=== PATIENT | female | born 1985 | race Caucasian/White ===

== ENCOUNTER 2020-05-05 15:04 | Outpatient (CLI) | payer BC, SELFPAY ==
--- NOTE | ~2020-05-05 | US_ITS ---
EXAMINATION: US thyroid DATE: 05/05/2020 15:40 INDICATION: Nontoxic goiter TECHNIQUE: Multiple ultrasound images of the thyroid were obtained. COMPARISON: None. FINDINGS: The right thyroid lobe measures 4.6 x 1.5 x 1.4 cm. The left thyroid lobe measures 0.4 x 0.9 x 1.4 c m. Thyroid isthmus measures 4-5 mm in thickness. No discrete nodules identified. There is normal echo texture, echogenicity and vascular flow throughout the thyroid gland. IMPRESSION: 1. Normal thyroid ultrasound. Reviewed, dictated and finalized at location A.
== END 2020-05-05 15:05 | disposition home or self-care (01) ==
PROVIDERS: PCP Nurse Practitioner; Visit Provider Internal Medicine Endocrinology, Diabetes & Metabolism
DX: G93.2 Benign intracranial hypertension (principal)
CPT/HCPCS: 76536

== ENCOUNTER 2020-05-08 09:24 | Outpatient (CLI) | payer BC, SELFPAY ==
[2020-04-30 09:57] VITALS: BMI 35.3
--- NOTE | ~2020-05-08 | XR_ITS ---
EXAMINATION: XR lumbar puncture diagnostic DATE: 05/08/2020 11:49 INDICATION: Intracranial hypertension. TECHNIQUE: The procedure including the risks, benefits, and alternatives was discussed with the patie nt. Risks discussed included spinal headache, cerebrospinal fluid leak, bleeding, and infection. The patient understood the risks and agreed to proceed. A timeout was performed to verify the patient' s name, date of , and procedure to be performed. The skin overlying the L3-L4 level was prepped and draped in usual sterile fashion. Subcutaneous 1% lidocaine was used for local anesthesia. A 20 gauge spinal needle was advanced under fluoroscopic guidance. The needle was removed and the entry s ite was cleaned and dressed. There were no immediate complications. Fluoroscopy exposure time was 0. 1 minutes. The total number of images was 1. FINDINGS: Real-time fluoroscopy demonstrates the needle at the L3-L4 level. The opening pressure was 21 cm water (Normal range is variably defined as 6-20 cm water and up to 25 cm water in obese patient s. Pressure >25 cm water is one of the modified Dandy criteria for idiopathic intracranial hypertensi on). 29.5 mL of clear, colorless fluid was collected in 4 tubes. IMPRESSION: 1. Successful fluoro-guided lumbar puncture. Reviewed, dictated and finalized at location A.
[2020-05-08 09:47] LABS: Mean Platelet Volume 8.7 fl (7.4-10.4); Platelet Count Result 270 k/mm3 (150-375)
[2020-05-08 09:57] LABS: INR 0.9; Prothrombin Time 11.5 Seconds (11.1-14.7)
[2020-05-08 10:40] VITALS: BP 148/95; PULSE 97; RESP 16; O2SAT 96
[2020-05-08 11:18] VITALS: BP 152/88; PULSE 91; RESP 20; O2SAT 95
[2020-05-08 11:22] VITALS: BP 137/80; PULSE 88; RESP 18; O2SAT 99
[2020-05-08 11:32] LABS: Glucose Point of Care 250 (65-105)
[2020-05-08 11:44] LABS: Appearance CSF Clear (Clear); CSF source CSF; Color CSF Colorless (Colorless); Nucleated Cell CSF 3 /uL (0-5); Red Blood Cell CSF 0 (0-2)
[2020-05-08 11:46] LABS: Glucose CSF 169 mg/dL (40-70); Total Protein CSF 38 mg/dL (12-60)
[2020-05-08 11:48] LABS: Lymphocytes CSF 80 % (40-80); Monocytes CSF 20 % (15-45)
--- NOTE | 2020-05-08 11:51 | SUR.PHASEII ---
1150- dr. alvarado had been called regarding patient's blood sugar. initially stated he wanted insulin orders implemented then called back and states no treatment for blood sugar of 250.
[2020-05-08 12:30] VITALS: BP 140/71; PULSE 85; RESP 18; O2SAT 100
--- NOTE | 2020-05-08 12:30 | SUR.PHASEII ---
1155 - lab called, results given to dr. alvarado. lab stated that gram stain results showed rare WBCs and no organisms. no orders received 1156 - pt resting in stretcher. pt denies need for ibuprofen at this time.
--- NOTE | 2020-05-08 12:36 | SUR.PHASEII ---
1230- care resumed from justus duffy rn
--- NOTE | 2020-05-08 12:54 | SUR.PHASEII ---
1230- patient refusing ibuprofen
[2020-05-08 12:55] VITALS: BP 131/68; PULSE 89; RESP 16; O2SAT 99
[2020-05-08 13:20] VITALS: BP 124/61; PULSE 85; RESP 18; O2SAT 100
== END 2020-05-08 13:26 | disposition home or self-care (01) ==
LOC: ANHIMG 09:26
PROVIDERS: Radiology Diagnostic Radiology; PCP Nurse Practitioner; Visit Provider Psychiatry & Neurology Neurology
DX: Z01.812 Encounter for preprocedural laboratory examination (principal)
CPT/HCPCS: 36415; 62328; 82945; 84157; 85049; 85610; 87070; 88108; 89051; A9270

== ENCOUNTER 2020-07-06 21:34 | Observation (INO) | payer BC, SELFPAY ==
--- NOTE | ~2020-07-06 | XR_ITS ---
EXAMINATION: XR chest 1V portable DATE: 07/06/2020 22:15 INDICATION: Left-sided chest pain radiating to the back TECHNIQUE: frontal view of the chest was obtained. COMPARISON: Chest radiograph dated 10/16/2018 FINDINGS: The lungs remain clear with no focal airspace opacities, pulmonary edema, pleural effusion or pneumot horax. Incidental azygos lobe and fissure at the right apex. The cardiomediastinal silhouette is norm al. IMPRESSION: 1. No acute cardiopulmonary disease. Reviewed, dictated and finalized at location A.
--- NOTE | ~2020-07-06 | CT_ITS ---
EXAMINATION: CTA chest DATE: 07/07/2020 02:32 INDICATION: Chest pain radiating to the back. TECHNIQUE: Computed tomographic angiography (CTA) of the chest was performed with 100 mL Omnipaque-35 0 intravenous contrast. Automated exposure control and iterative reconstruction technique were employ ed. The dose-length product was 799.84 mGy-cm. Maximum intensity projection 3D-reconstructions of the aorta and other arteries were constructed by the technologist on a separate workstation. COMPARISON: Chest CT 08/21/2018 FINDINGS: There is no pneumonia or pleural effusion. The heart size is normal. No pericardial effusio n. There is no pulmonary embolus. Thoracic aorta is normal. There is cortical thinning of the kidneys . There is a 1.8 cm cyst in left kidney. There are changes of cholecystectomy. There is diffuse hepat ic steatosis. There is a small sliding hiatal hernia. There is mild thoracic spondylosis. There is mi ld chronic anterior wedging of T11 and T12 vertebral bodies, likely physiologic. IMPRESSION: 1. Normal thoracic aorta. No pulmonary embolism. 2. Small sliding hiatal hernia. Reviewed, dictated and finalized at location A.
[2020-07-06 21:43] VITALS: PULSE 130; RESP 20; TEMP 36.6; O2SAT 99
[2020-07-06 21:47] VITALS: O2SAT 99
[2020-07-06 21:51] VITALS: BP 184/98; PULSE 106; RESP 20; O2SAT 99
--- NOTE | 2020-07-06 21:51 | ECG_ITS ---
Measurements Intervals [place] Rate: 132 P: 47 LA: 137 QRS: 54 QRSD: 90 T: 75 QT: 332 QTc: 493 Interpretive Statements SINUS TACHYCARDIA NONSPECIFIC T-WAVE ABNORMALITY- HIGH LATERAL LEADS BASELINE ARTIFACT- I, II, III, AVR, AVL, AVF, V2-V6 ABNORMAL ECG Electronically Signed On 07-07-2020 6:56:34 CDT by Ar Valle D.O.
[2020-07-06 21:57] VITALS: PULSE 112
--- NOTE | 2020-07-06 22:02 | ED.CHESTPAIN ---
HPI - Chest Pain General Chief Complaint: Chest Pain Stated Complaint: Chest pain Time Seen by Provider: 07/06/20 21:40 Source: patient Mode of arrival: ambulatory Limitations: no limitations History of Present Illness HPI narrative: This patient is a 35 year old female with multiple medical problems which includes DM, anxiety, chronic kidney disease and fibromyalgia. She has been having left chest pain since Monday. She describes pain as intermittent sharp pain that radiates to her left back. Her pain has progressively worsens. She is unsure if it is worse with eat or exertion. She has nausea but no vomiting with her pain. She states her pain is 2/10 in her chest and her pain is 9/10 in her back. She denies sob unless she has severe sharp pain. She denies cough, fever. Denies heart disease, history of DVT or PE . She has not taken anything for pain. MD complaint: chest pain Related Data Home Medications Medication Instructions Recorded Confirmed losartan 100 mg PO DAILY 04/30/20 07/07/20 metformin 500 mg PO DAILY 04/30/20 07/07/20 albuterol sulfate [ProAir HFA] 1 inh INHALATION PRN PRN 07/06/20 07/06/20 insulin degludec [Tresiba 64 unit SUBCUT HS 07/06/20 07/07/20 FlexTouch U-200] Allergies Allergy/AdvReac Type Severity Reaction Status Date / Time metoclopramide AdvReac Unknown PANIC Verified 04/30/20 09:59 ATTACKS B/P MED Allergy Unknown ITCHING Uncoded 09/29/18 11:58 ONDANSETRON HCL AdvReac Unknown PANIC Uncoded 04/30/20 09:59 ATTACKS PROCHLORPERAZINE EDISYLATE AdvReac Unknown PANIC Uncoded 04/30/20 09:59 ATTACKS PROCHLORPERAZINE MALEATE AdvReac Unknown PANIC Uncoded 04/30/20 09:59 ATTACKS PROMETHAZINE HCL AdvReac Unknown PANIC Uncoded 04/30/20 09:59 ATTACKS Review of Systems Review of Systems: All systems reviewed & are unremarkable except as noted in HPI and below Constitutional: Constitutional: Denies chills and Denies fever(s) Cardiovascular: Cardiovascular: Reports chest pain Respiratory: Respiratory: Denies cough (chronic cough from bronchitis. ) and Denies dyspnea Gastrointestinal: Gastrointestinal: Denies abdominal pain, Reports nausea and Denies vomiting Musculoskeletal: Musculoskeletal: Reports back pain Integumentary/Breasts: Skin/Breast: Reports breast pain Psychiatric: Psychiatric: Reports anxiety [facility] Past Medical History Medical History (Updated 07/07/20 @ 04:20 by Kat Rodríguez MD) Chronic renal disease Diabetes mellitus Fibromyalgia Hypertension Surgical History Surgical History (Updated 07/06/20 @ 22:07 by Kat Rodríguez MD) Hx of cholecystectomy Family History Family History (Updated 07/07/20 @ 04:40 by Angi Odell RN) Father Diabetes mellitus Hypertension Myocardial infarct Heart disease Mother Diabetes mellitus Heart disease Sibling Narcolepsy and cataplexy Social History Social History (Updated 07/06/20 @ 22:08 by Kat Rodríguez MD) Smoking packs per day: 0.5 Smoking cigarettes per day: 10.0 Smoking status: Former smoker Tobacco type: cigarettes Second hand tobacco smoke exposure: Yes Alcohol intake: never Substance use: never Substance use type: marijuana Spiritual care concerns: No Exam Const: General: alert Nutritional Appearance: obese centrally obese Orientation/consciousness: patient oriented x3 Other: patient crying Eyes: EOM: EOMs intact bilaterally Chest: Chest palpation & inspection: normal inspection of the chest and no tenderness Resp: Effort & Inspection: normal respiratory effort, no retractions and no use of accessory muscles Auscultation: clear to auscultation bilaterally Cardio: Rate: tachycardic Rhythm: regular rhythm and regular rhythm Heart sounds: no murmurs GI: GI Palp: Yes Soft to palpation, No Tenderness to palpation present (GI), No Guarding due to palpation present (GI) and Yes No hepatosplenomegaly present Skin: Genera
[2020-07-06] MEDS: NITROGLYCERIN SL 0.4 MG TABLET SUBLINGUAL (22:03)
[2020-07-06 22:07] LABS: Basophils Percent Auto 0.4 % (0.2-1.2); Eosinophils Absolute Auto 0.2 K/mm3 (0-0.3); Eosinophils Percent Auto 1.9 % (0-4.4); Hematocrit 40.6 % (37.0-47.0); Hemoglobin 13.7 g/dL (12.0-15.0); Immature Granulocyte Absolute 0.02 K/mm3 (0.00-0.031); Immature Granulocyte Percent A 0.2 % (0-0.5); Lymphocytes Absolute Auto 2.87 K/mm3 (0.9-3.2); Lymphocytes Percent Auto 35.6 % (18.3-44.2); Mean Corpuscular HGB Conc 33.7 g/dl (32-36); Mean Corpuscular Hemoglobin 28.3 pg (26-34); Mean Corpuscular Volume 83.9 fl (80-100); Mean Platelet Volume 8.7 fl (7.4-10.4); Monocytes Absolute Auto 0.6 K/mm3 (0.1-0.6); Monocytes Percent Auto 7.9 % (2.6-8.5); Neutrophils Absolute Auto 4.4 K/mm3 (1.3-6.7); Platelet Count Result 302 k/mm3 (150-375); Red Blood Count 4.84 M/mm3 (4.2-5.4); Red Cell Distribution Width 13.8 % (11.5-14.5); White Blood Count 8.1 K/mm3 (4.5-10.0)
[2020-07-06 22:19] LABS: INR 0.9; Prothrombin Time 11.5 Seconds (11.1-14.7)
[2020-07-06 22:20] LABS: Anion Gap 11 mmol/L (8-16); Blood Urea Nitrogen 21 mg/dL (7-17); Calcium 9.1 mg/dL (8.4-10.2); Carbon Dioxide 22 mmol/L (22-30); Chloride 101 mmol/L (98-107); Estimated Glomerular Filt Rate > 60; Glucose 283 mg/dL (65-105); Partial Thromboplastin Time 24.1 SECONDS (22.3-36.8); Potassium 4.3 mmol/L (3.4-5.0); Sodium 134 mmol/L (137-145)
[2020-07-06 22:22] LABS: D Dimer 0.28 ug/mL (<0.48)
[2020-07-06 22:26] VITALS: BP 143/90; PULSE 113; RESP 20; O2SAT 97
[2020-07-06 22:31] LABS: Troponin I < 0.012 ng/mL (0.000-0.034)
[2020-07-06] MEDS: LACTATED RINGERS 1,000 ML 999 ML IV CONT (22:50)
[2020-07-06 23:30] VITALS: BP 143/93; PULSE 98; RESP 18; O2SAT 98
[2020-07-07] VITALS (10 sets, daily range): BP systolic 137–175; BP diastolic 78–100; PULSE 90–103; RESP 16–20; TEMP 36.8; O2SAT 95–100; BMI 37.4
[2020-07-07 01:44] LABS: Troponin I < 0.012 ng/mL (0.000-0.034)
--- NOTE | 2020-07-07 02:42 | PC.NURSE ---
CP: Upon pt returning to ED after CT scan, pt had another episode of chest pain. She described it as tightness and sharp pain going through to her back. Pt also c/o SOB d/t difficulty taking deep breath during episode. MD Rodríguez updated and PRN Nitro sublingual tablet 0.4mg given at 0237 with pt's pain immediately subsided after 5mins. Pt's sister at bedside. VSS. RN will continue to monitor.
[2020-07-07] MEDS: ASPIRIN 81 MG CHEWABLE TABLET 324 MG PO (03:52)
[2020-07-07 04:36] LABS: Troponin I < 0.012 ng/mL (0.000-0.034)
--- NOTE | 2020-07-07 04:42 | ADMGEN ---
This patient, Kylee Guo, was admitted to [facility]. Patient/family oriented to hospital policies and general routines including ID bracelet, bed and alarms, visiting hours, pain management, procedures, bathroom and other care routines, personal items, smoking policy, room service/diet, and visiting hours. Valuables list has been completed. Information on how to activate the Rapid Response Team has been discussed. Patient/Family are encouraged to report perceived risks to care and to ask questions if they do not understand what they are told or what they should do.
--- NOTE | 2020-07-07 06:05 | PM.IMHP ---
H&P: HPI History of Present Illness Date/Time: 07/07/20 06:05 Chief complaint: left chest pain/hypertension Narrative: This is an obese diabetic female with known history of CKD and fibromyalgia who presented to the hospital with a complaint of intermittent left sided chest discomfort for the past 6 days. She describes her pain as sharp and radiating towards her back. Her pain lasts only for a few minutes each time and is not described as pleuritic, positional, or palpable. She admits that she she had her pain yesterday she also felt she had indigestion. She has no previous history of CAD+, pulmonary emboli, or PUD. She is known to have had a previous cholecystectomy. Associated symptoms include nausea. She denies any diaphoresis, vomiting, cough, fever, chills or palpitations. She also denies any recent LE swelling, headache, dysuria, hematuria. diarrhea, or rectal bleeding. She denies having any previous stress test before. ER provider has consulted Cardiology. Review of Systems Review of Systems: All systems reviewed & are unremarkable except as noted in HPI and below PMFSH Past Medical History Medical History Chronic renal disease Diabetes mellitus Fibromyalgia Hypertension Surgical History Surgical History Hx of cholecystectomy Family History Family History Father Diabetes mellitus Hypertension Myocardial infarct Heart disease Mother Diabetes mellitus Heart disease Sibling Narcolepsy and cataplexy Social History Social History Smoking packs per day: 0.5 Smoking cigarettes per day: 10.0 Smoking status: Former smoker Tobacco type: cigarettes Second hand tobacco smoke exposure: Yes Alcohol intake: never Substance use: never Substance use type: marijuana Spiritual care concerns: No Meds Home Medications and Allergies Home Medications Medication Instructions Recorded Confirmed Type losartan 100 mg PO DAILY 04/30/20 07/07/20 History metformin 500 mg PO DAILY 04/30/20 07/07/20 History albuterol sulfate [ProAir HFA] 1 inh INHALATION PRN PRN 07/06/20 07/06/20 History insulin degludec [Tresiba 64 unit SUBCUT HS 07/06/20 07/07/20 History FlexTouch U-200] Allergies Allergy/AdvReac Type Severity Reaction Status Date / Time metoclopramide AdvReac Unknown PANIC Verified 04/30/20 09:59 ATTACKS B/P MED Allergy Unknown ITCHING Uncoded 09/29/18 11:58 ONDANSETRON HCL AdvReac Unknown PANIC Uncoded 04/30/20 09:59 ATTACKS PROCHLORPERAZINE EDISYLATE AdvReac Unknown PANIC Uncoded 04/30/20 09:59 ATTACKS PROCHLORPERAZINE MALEATE AdvReac Unknown PANIC Uncoded 04/30/20 09:59 ATTACKS PROMETHAZINE HCL AdvReac Unknown PANIC Uncoded 04/30/20 09:59 ATTACKS Vital Signs Vital Signs - 24 hr 07/06/20 21:43 07/06/20 21:47 07/06/20 21:51 Temperature 36.6 C Pulse Rate 130 H 106 H Respiratory Rate 20 20 Blood Pressure 184/98 H Pulse Oximetry 99 99 99 07/06/20 21:57 07/06/20 22:26 07/06/20 23:30 Temperature Pulse Rate 112 H 113 H 98 Respiratory Rate 20 18 Blood Pressure 143/90 H 143/93 H Pulse Oximetry 97 98 07/07/20 00:04 07/07/20 01:00 07/07/20 03:02 Temperature Pulse Rate 93 97 102 H Respiratory Rate 17 16 20 Blood Pressure 161/92 H 150/78 H 151/98 H Pulse Oximetry 98 98 95 07/07/20 04:02 07/07/20 04:24 07/07/20 04:30 Temperature 36.8 C Pulse Rate 103 H 94 90 Respiratory Rate 16 16 Blood Pressure 137/84 175/96 H Pulse Oximetry 100 100 07/07/20 05:43 07/07/20 05:44 Temperature Pulse Rate 99 Respiratory Rate Blood Pressure 154/86 H Pulse Oximetry Exam Const: General: cooperative, no acute distress, alert, awake and ill appearing chronically Nutritional Appearance: obese morbidly
--- NOTE | 2020-07-07 06:11 | ECG_ITS ---
Measurements Intervals [place] Rate: 97 P: 17 MA: 152 QRS: 24 QRSD: 85 T: -7 QT: 373 QTc: 475 Interpretive Statements SINUS RHYTHM MINIMAL Q WAVES- DIFFUSE LEADS NONSPECIFIC T-WAVE ABNORMALITY- DIFFUSE LEADS BORDERLINE ECG Electronically Signed On 07-07-2020 7:54:11 CDT by Ar Valle D.O.
--- NOTE | 2020-07-07 08:15 | PM.CNCAR ---
Assessment and Plan Assessment and plan (1) Atypical chest pain: Code(s): R07.89 - Other chest pain Status: Acute Assessment and Plan: Chest pain is mixed features and intermittent nitro responsiveness She ruled out for AK with trop and EKG given risk factors of HTN, DM and tobacco abuse she would benefit from stress testing for risk stratification. Will arrange for that in outpatient setting. patient is stable for discharge from cardiac standpoint. 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: without longterm use Diabetes mellitus complication status: without complication Qualified Code(s): E11.9 - Type 2 diabetes mellitus without complications Code(s): E11.9 - Type 2 diabetes mellitus without complications Status: Chronic (4) Morbid obesity: Code(s): E66.01 - Morbid (severe) obesity due to excess calories Status: Chronic History of Present Illness History of Present Illness Consult date/time: 07/07/20 08:15 35 y/o female with h/o DM (type II, since age 17), tobacco abuse (Pack a day, quit last week), HTN, polycystic kidney disease and obesity who presents with chest pain Pain has been ongoing since Monday, multiple times a day, not necessarily related to exertion. She had sever episode yesterday so she decided to seek medical attention. She received nitro in ER with relief. She had another episode of chest pain after had CT scan done however SL nitro did not help that time. Her EKG shows normal sinus rhythm with non specific ST changes. Trop negative X3 Reason For Visit: left chest pain/hypertension Review of Systems Review of Systems: All systems reviewed & are unremarkable except as noted in HPI and below Constitutional: Constitutional: Denies fatigue and Denies headache(s) Eyes: Eyes: Denies blurry vision ENT: Reports Normal hearing present and Denies headache(s) Cardiovascular: Cardiovascular: Denies chest pain, Denies diaphoresis, Denies pedal edema, Denies leg edema, Denies lightheadedness, Denies palpitations and Denies dyspnea Respiratory: Respiratory: Denies cough and Denies dyspnea Gastrointestinal: Gastrointestinal: Denies abdominal pain Musculoskeletal: Musculoskeletal: Denies back pain Neurologic: Reports Normal hearing present and Denies headache(s) Psychiatric: Psychiatric: Denies anxiety Endocrine: Endocrine: Denies fatigue and Denies palpitations PMFSH Past Medical History Medical History Chronic renal disease Diabetes mellitus Fibromyalgia Hypertension Surgical History Surgical History Hx of cholecystectomy Family History Family History Father Diabetes mellitus Hypertension Myocardial infarct Heart disease Mother Diabetes mellitus Heart disease Sibling Narcolepsy and cataplexy Social History Social History Smoking packs per day: 0.5 Smoking cigarettes per day: 10.0 Smoking status: Former smoker Tobacco type: cigarettes Second hand tobacco smoke exposure: Yes Alcohol intake: never Substance use: never Substance use type: marijuana Spiritual care concerns: No Meds Home Medications and Allergies Home Medications Medication Instructions Recorded Confirmed Type losartan 100 mg PO DAILY 04/30/20 07/07/20 History metformin 500 mg PO DAILY 04/30/20 07/07/20 Hist
--- NOTE | 2020-07-07 09:44 | PC.NURSE ---
0925 Patient developed chest pain 06/29, Nitro SL given. Dr. Gmaboa notified, still wants to discharge from his standpoint.
--- NOTE | 2020-07-07 10:22 | PM.IMPN ---
Progress Note: A&P Assessment and Plan (1) Atypical chest pain: Code(s): R07.89 - Other chest pain Status: Acute Assessment and Plan: Patient with atypical features. Appreciate input from cardiology. Serial troponin levels are negative. EKG as well as repeat EKG negative for changes. Telemetry reviewed on 07/07/2020 with no changes seen. Cardiology plans outpatient stress echocardiogram for further follow-up. As no further inpatient cardiology evaluation planned, will discharge today but instructed patient on reasons to return to ER. Will send home on sublingual nitroglycerin. (2) Hypertension: Qualifiers: Hypertension type: unspecified Qualified Code(s): I10 - Essential (primary) hypertension Code(s): I10 - Essential (primary) hypertension Status: Chronic Assessment and Plan: Blood pressure reviewed on 07/07/2020. Continue losartan at discharge. (3) Diabetes mellitus: Qualifiers: Diabetes mellitus complication status: without complication Diabetes mellitus terminologist insulin use: without custodial use Diabetes mellitus type: type 2 Qualified Code(s): E11.9 - Type 2 diabetes mellitus without complications Code(s): E11.9 - Type 2 diabetes mellitus without complications Status: Chronic Assessment and Plan: Glucose reviewed on 07/07/2020 with some elevated readings. Will have her continue home metformin and Tresiba but will need to follow-up with her primary physician. (4) Chronic renal disease: Qualifiers: Chronic kidney disease stage: stage 1 Qualified Code(s): N18.1 - Chronic kidney disease, stage 1 Code(s): N18.9 - Chronic kidney disease, unspecified Status: Chronic Assessment and Plan: Patient states she has polycystic kidneys. Does follow with Nephrology. Creatinine stable here. I have asked her to check with her taproom attendant regarding possible anti-reflux medications as this may be contributing to chest pain issues. (5) Fibromyalgia: Code(s): M79.7 - Fibromyalgia Status: Chronic Assessment and Plan: May be contributing to pain. Follow-up with primary physician as outpatient. (6) Morbid obesity: Code(s): E66.01 - Morbid (severe) obesity due to excess calories Status: Chronic Assessment and Plan: Healthy lifestyle changes encouraged. (7) DVT prophylaxis: Code(s): Z29.9 - Encounter for prophylactic measures, unspecified Status: Acute Assessment and Plan: Up as tolerated. Subjective Date/time seen: 07/07/20 10:22 Interval history: Date of Service: 07/07/2020. Admitted with atypical chest pain over the past 6 days. Patient has still had some intermittent chest pain responsive to nitroglycerin at times. Denies acid reflux. No dizziness. Has had headaches with the nitroglycerin. No nausea or vomiting. Does have known kidney disease. Has already seen Cardiology today with plan for outpatient stress test. Review of Systems Constitutional: Constitutional: Denies chills and Denies fever(s) Eyes: Eyes: Reports no additional eye complaints ENT: Denies nasal congestion and Denies nasal discharge Cardiovascular: Cardiovascular: Reports chest pain, Denies lightheadedness and Denies palpitations Respiratory: Respiratory: Denies cough and Denies dyspnea Gastrointestinal: Gastrointestinal: Denies abdominal pain, Denies heartburn, Denies nausea and Denies vomiting Genitourinary: Genitourinary: Reports no additional female genitourinary complaints Musculoskeletal: Musculoskeletal: Reports no additional musculoskeletal complaints Integumentary/Breasts: Skin/Breast: Denies rash Neurologic: Reports headache(s) ( With nitroglycerin) Psychiatric: Psychiatric: Reports no additional psychiatric complaints Exam Narrative: Exam Narrative: Awake and alert. Speaking in full sentences with chest pain. Const: General: uncomfortable HE
--- NOTE | 2020-07-07 10:27 | PM.DS ---
DS: Admitting Diagnosis Admitting Diagnosis Admitting Diagnosis: left chest pain/hypertension DS: Discharge Diagnosis Discharge Diagnosis (1) Atypical chest pain: Code(s): R07.89 - Other chest pain Status: Acute (2) Hypertension: Qualifiers: Hypertension type: unspecified Qualified Code(s): I10 - Essential (primary) hypertension Code(s): I10 - Essential (primary) hypertension Status: Chronic Assessment and Plan: (3) Diabetes mellitus: Qualifiers: Diabetes mellitus complication status: without complication Diabetes mellitus exterminator helper termite insulin use: without exterminator helper termite use Diabetes mellitus type: type 2 Qualified Code(s): E11.9 - Type 2 diabetes mellitus without complications Code(s): E11.9 - Type 2 diabetes mellitus without complications Status: Chronic Assessment and Plan: (4) Chronic renal disease: Qualifiers: Chronic kidney disease stage: stage 1 Qualified Code(s): N18.1 - Chronic kidney disease, stage 1 Code(s): N18.9 - Chronic kidney disease, unspecified Status: Chronic Assessment and Plan: Patient states she has polycystic kidneys. Does follow with Nephrology. Creatinine stable here. I have asked her to check with her dramatic agent regarding possible anti-reflux medications as this may be contributing to chest pain issues. (5) Fibromyalgia: Code(s): M79.7 - Fibromyalgia Status: Chronic (6) Morbid obesity: Code(s): E66.01 - Morbid (severe) obesity due to excess calories Status: Chronic DS: Summary Hospital Course Reason for hospitalization: Chest pain. Hospital Course: Date of Service of Discharge: July 07, 2020. History of Present Illness: Patient is a 35-year-old with known diabetes, chronic kidney disease stage 1 and fibromyalgia who presented emergency room with complaint of intermittent left-sided chest discomfort for the past 6 days. Pain described as sharp and radiating towards her back. Pain would only last a few minutes. Not described as pleuritic, positional or palpable. No cough, fever, sweats or chills. Patient did admit pain prior to presentation also felt as though she had some indigestion. Patient did have nausea but no vomiting. In the emergency room, initial testing with no significant abnormality seen but given her symptoms cardiology was consulted and patient was placed in observation for further evaluation and treatment. Course in Hospital: On admission, patient was placed in the chest Pain Center where she was monitored overnight. Initial EKG was done and then repeated with no acute changes seen. No findings on telemetry. Serial troponin levels were negative x3. She was evaluated by Cardiology. Patient was felt to be appropriate for stress test could be done as an outpatient as EKG and troponin levels were negative. Patient did get some periodic relief from nitroglycerin while in hospital. Blood pressure was stable throughout her stay on home losartan. Of note, CTA chest was done in the emergency room with no pulmonary emboli seen. Additionally, glucose was monitored and remained stable. in discussion with options, patient was agreeable to stress test as an outpatient in stated to me that she was ready to go home and rest. Kidney function remained stable. She was advised to check with her dramatic agent regarding possibly medication for reflux disease as it is possible her chest pain was related to acid indigestion. With patient stable and ACS ruled out, she was discharged home on the morning of July 07, 2020. Patient to have outpatient stress echocardiogram scheduled through Dr. Gamboa's office. Status at Discharge Cognitive/behavioral status at discharge: Stable. Functional status at discharge: independent ambulation Overall status at discharge: patient is back to baseline Time Spent with Patient Time attestation: Total time spent providing and/or host coordinator
== END 2020-07-07 11:37 | disposition home or self-care (01) ==
LOC: ANHED 21:58 → ANHCPC 07-07 04:20
PROVIDERS: Admitting Provider Family Medicine; Emergency Provider General Practice; PCP Nurse Practitioner; Visit Provider Hospitalist
DX: R07.89 Other chest pain (principal); E11.22 Type 2 diabetes mellitus with diabetic chronic kidney disease; I12.9 Hypertensive chronic kidney disease with stage 1 through stage 4 chronic kidney disease, or unspecified chronic kidney disease; N18.1 Chronic kidney disease, stage 1; M79.7 Fibromyalgia; E66.01 Morbid (severe) obesity due to excess calories; Z68.37 Body mass index [BMI] 37.0-37.9, adult; Z79.4 Long term (current) use of insulin; Z79.899 Other long term (current) drug therapy; Z87.891 Personal history of nicotine dependence
CPT/HCPCS: 36415; 71045; 71275; 80048; 84484; 85025; 85380; 85610; 85730; 93005; 96361; 96365; 99285; A9270; G0378; J0131; J7120; Q9967

== ENCOUNTER 2020-08-09 05:46 | Emergency (ER) | payer BC, SELFPAY ==
--- NOTE | ~2020-08-09 | XR_ITS ---
XR chest 2V DATE: 08/09/2020 07:00 INDICATION: Left lower rib pain TECHNIQUE: PA and lateral chest COMPARISON: 07/07/2020 CTA chest FINDINGS: Azygos lobe, normal variant. Normal heart size. No hilar or mediastinal enlargement. The lungs are clear of infiltrate or consolidation. No pleural effusion or pulmonary vascular congest ion or pneumothorax. Likely chronic mild anterior wedging of T12 and L1 vertebral bodies. IMPRESSION: No active cardiopulmonary disease Reviewed, dictated and finalized at location A.
[2020-08-09 05:49] VITALS: BP 178/110; PULSE 102; RESP 18; TEMP 36.7; O2SAT 100
--- NOTE | 2020-08-09 06:09 | ECG_ITS ---
Measurements Intervals [place] Rate: 100 P: 42 WI: 159 QRS: 12 QRSD: 83 T: 98 QT: 358 QTc: 463 Interpretive Statements SINUS TACHYCARDIA POSSIBLE LEFT ATRIAL ENLARGEMENT NONSPECIFIC ST & T-WAVE ABNORMALITY- HIGH LATERAL LEADS BASELINE ARTIFACT- I, II, III, AVR, AVL, AVF, V3 BORDERLINE ECG Electronically Signed On 08-09-2020 8:06:58 CDT by Ar Valle D.O.
--- NOTE | 2020-08-09 06:21 | ED.GENADULT ---
HPI - General Adult General Chief complaint: Nausea/Vomiting/Diarrhea <Kat Rodríguez MD - Last Filed: 08/09/20 19:44> Stated complaint: nausea/ tremors <Kat Rodríguez MD - Last Filed: 08/09/20 19:44> Time Seen by Provider: 08/09/20 05:49 <Kat Rodríguez MD - Last Filed: 08/09/20 19:44> Source: patient <Kat Rodríguez MD - Last Filed: 08/09/20 19:44> Mode of arrival: EMS <Kat Rodríguez MD - Last Filed: 08/09/20 19:44> Limitations: no limitations <Kat Rodríguez MD - Last Filed: 08/09/20 19:44> History of Present Illness HPI narrative: This patient is a 35 year old female with history of anxiety, hypertension and diabetes who presents for evaluation of tremors, nausea, vomiting and tachycardia. Patient states she woke up around 4 am . She reports she felt like she was developing of left frontal migraine and then it resolved. Shortly after she developed heartburn , and sudden onset of nausea and vomiting. She reports she also felt her heart racing and left lower chest pain that radiates to her back. She states she also had episodes in which she felt tremulous and scared. She states she checked her vitals at home she her heart rate was elevated to 130 and her blood pressure was elevated. She states she called 911. EMS reports patient had HR of 150 and she was hypertensive. Her BP and heart rate have decreased without any intervention. She reports she continues to have nausea and some left lower chest/left upper abdomen pain. Patient was assessed for similar symptoms last month. She states she had a stress test and she is scheduled for an ECHO this week. Her human resources office assistant is in [place]. <Kat Rodríguez MD - Last Filed: 08/09/20 19:44> Related Data Home medications: Home Medications Medication Instructions Recorded Confirmed losartan 100 mg PO DAILY 04/30/20 07/07/20 metformin 500 mg PO DAILY 04/30/20 07/07/20 Tresiba FlexTouch U-200 64 unit SUBCUT HS 07/06/20 07/07/20 albuterol sulfate [ProAir HFA] 1 inh INHALATION PRN PRN 07/06/20 07/06/20 rosuvastatin [Crestor] 10 mg PO DAILY 08/09/20 <Kat Rodríguez MD - Last Filed: 08/09/20 19:44> Allergies/adverse reactions: Allergies Allergy/AdvReac Type Severity Reaction Status Date / Time metoclopramide AdvReac Severe PANIC Verified 08/09/20 06:04 ATTACKS prochlorperazine AdvReac Severe Itching Verified 08/09/20 06:03 [From Compazine] ONDANSETRON HCL AdvReac Severe PANIC Uncoded 08/09/20 06:03 ATTACKS PROCHLORPERAZINE EDISYLATE AdvReac Severe PANIC Uncoded 08/09/20 06:03 ATTACKS PROCHLORPERAZINE MALEATE AdvReac Severe PANIC Uncoded 08/09/20 06:03 ATTACKS PROMETHAZINE HCL AdvReac Severe PANIC Uncoded 08/09/20 06:03 ATTACKS <Kat Rodríguez MD - Last Filed: 08/09/20 19:44> Review of Systems Review of Systems: All systems reviewed & are unremarkable except as noted in HPI and below <Kat Rodríguez MD - Last Filed: 08/09/20 19:44> Constitutional: Constitutional: Denies chills and Denies fever(s) <Kat Rodríguez MD - Last Filed: 08/09/20 19:44> Cardiovascular: Cardiovascular: Reports chest pain <Kat Rodríguez MD - Last Filed: 08/09/20 19:44> Respiratory: Respiratory: Reports cough and Reports dyspnea <Kat Rodríguez MD - Last Filed: 08/09/20 19:44> Gastrointestinal: Gastrointestinal: Reports abdominal pain, Reports nausea and Reports vomiting <Kat Rodríguez MD - Last Filed: 08/09/20 19:44> Neurologic: Reports headache(s) <Kat Rodríguez MD - Last Filed: 08/09/20 19:44> Psychiatric: Psychiatric: Reports anxiety <Kat Rodríguez MD - Last Filed: 08/09/20 19:44> PMFSH Past Medical History Medical History: Medical History Chronic renal disease Diabetes mellitus Fibromyalgia Hypertension <Kat Rodríguez MD - Last Filed: 08/09/20 19:44
[2020-08-09 06:35] LABS: Basophils Percent Auto 0.3 % (0.2-1.2); Eosinophils Absolute Auto 0.2 K/mm3 (0-0.3); Eosinophils Percent Auto 1.7 % (0-4.4); Hematocrit 40.1 % (37.0-47.0); Hemoglobin 13.5 g/dL (12.0-15.0); Immature Granulocyte Absolute 0.03 K/mm3 (0.00-0.031); Immature Granulocyte Percent A 0.3 % (0-0.5); Lymphocytes Percent Auto 22.4 % (18.3-44.2); Mean Corpuscular HGB Conc 33.7 g/dl (32-36); Mean Corpuscular Hemoglobin 28.4 pg (26-34); Mean Corpuscular Volume 84.4 fl (80-100); Mean Platelet Volume 8.7 fl (7.4-10.4); Monocytes Absolute Auto 0.5 K/mm3 (0.1-0.6); Neutrophils Absolute Auto 6.2 K/mm3 (1.3-6.7); Neutrophils Percent Auto 69.3 % (45.5-73.1); Platelet Count Result 234 k/mm3 (150-375); Red Blood Count 4.75 M/mm3 (4.2-5.4); Red Cell Distribution Width 13.8 % (11.5-14.5); White Blood Count 8.9 K/mm3 (4.5-10.0)
[2020-08-09 06:45] LABS: INR 0.9; Prothrombin Time 12.1 Seconds (11.1-14.7)
[2020-08-09 06:46] LABS: Alanine Aminotransferase 24 U/L (4-35); Albumin Level 4.1 g/dL (3.5-5.1); Alkaline Phosphatase 113 U/L (38-126); Anion Gap 9 mmol/L (8-16); Aspartate Amino Transferase 24 U/L (14-36); Bilirubin,Total 0.4 mg/dL (0.2-1.3); Blood Urea Nitrogen 17 mg/dL (7-17); Calcium 9.1 mg/dL (8.4-10.2); Carbon Dioxide 24 mmol/L (22-30); Chloride 101 mmol/L (98-107); Estimated CRCL calculation 146 ml/min; Estimated Glomerular Filt Rate > 60; Glucose 336 mg/dL (65-105); Lipase 77 U/L (23-300); Partial Thromboplastin Time 22.4 SECONDS (22.3-36.8); Sodium 134 mmol/L (137-145)
[2020-08-09 06:58] LABS: Troponin I < 0.012 ng/mL (0.000-0.034)
[2020-08-09] MEDS: BELLADONNA ALK/PHENOB ELIX 10 ML, MAG HYDROX/ALUMINUM HYD/SIMETH 30 ML, LIDOCAINE HCL 2... PO (07:13)
[2020-08-09 08:07] VITALS: BP 146/86; PULSE 89; RESP 18; O2SAT 100
== END 2020-08-09 08:10 | disposition home or self-care (01) ==
PROVIDERS: General Practice; Emergency Provider Emergency Medicine; PCP Nurse Practitioner
DX: R25.1 Tremor, unspecified (principal); R00.2 Palpitations; E11.22 Type 2 diabetes mellitus with diabetic chronic kidney disease; I12.9 Hypertensive chronic kidney disease with stage 1 through stage 4 chronic kidney disease, or unspecified chronic kidney disease; N18.9 Chronic kidney disease, unspecified; M79.7 Fibromyalgia; Z87.891 Personal history of nicotine dependence; Z79.84 Long term (current) use of oral hypoglycemic drugs; R00.0 Tachycardia, unspecified; R94.31 Abnormal electrocardiogram [ECG] [EKG]
CPT/HCPCS: 36415; 71046; 80048; 80076; 83690; 84484; 85025; 85610; 85730; 93005; 99284; A9270

== ENCOUNTER 2020-08-27 09:28 | Outpatient (RCR) | payer BC, SELFPAY | END 2020-11-16 15:55 | disposition home or self-care (01) | LOC: ANHDMC 09:28 | PROVIDERS: PCP Nurse Practitioner; Visit Provider Nurse Practitioner | DX: E11.65 Type 2 diabetes mellitus with hyperglycemia (principal); Z71.89 Other specified counseling | CPT/HCPCS: G0108 ==

== ENCOUNTER 2020-11-12 10:41 | Observation (INO) | payer BC, SELFPAY ==
[2020-11-12] VITALS (26 sets, daily range): BP systolic 120–200; BP diastolic 77–100; PULSE 84–105; RESP 12–22; TEMP 36.2–36.9; O2SAT 97–100; BMI 37.1
--- NOTE | ~2020-11-12 | XR_ITS ---
EXAMINATION: XR chest 1V portable EXAM DATE: 11/12/2020 11:23 INDICATION: Slurred speech and dizziness. TECHNIQUE: Portable AP frontal chest x-ray was obtained. Comparison is made to prior examination from 08/09/2020. FINDINGS: The lungs are clear. There are no pleural effusions. Cardiac silhouette is prominent but magnified on this AP technique. There is no pneumothorax suspected. The bones and soft tissues are unremarkable. IMPRESSION: No acute cardiopulmonary findings. Reviewed, dictated and finalized at location A. AGE COLLECTOR SUPERVISOR
--- NOTE | ~2020-11-12 | MR_ITS ---
EXAMINATION: MR brain/brain stem wo/w con EXAM: 11/14/2020 08:46 INDICATION: Speech impairment. Dizziness and diplopia. TECHNIQUE: Magnetic resonance imaging (MRI) of the brain/brain stem obtained without contrast. Sagit ricardo T1, axial diffusion, gradient echo (T2*), T1, T2, FLAIR sequences obtained. Patient was then inj ected with 15 cc intravenous Multihance contrast. Axial and coronal postcontrast T1 weighted sequence s obtained. Comparison is made to prior examination from 02/02/2019 . FINDINGS: There are no areas of restricted diffusion to suggest acute infarction. There is no acute hemorrhage seen on the T2*, a hemosiderin sensitive sequence. No intraparenchymal brain mass. The ve ntricles are normal in size. There are no extra-axial collections. Flow voids are seen in the cereb ral arteries on the T2-weighted sequences consistent with their expected patency. The orbits are unr emarkable. Soft tissue is unremarkable. There are no areas of abnormal enhancement on the postcont rast images. IMPRESSION: Unremarkable brain MRI examination. Reviewed, dictated and finalized at location A. ERN GRADER CUTTER
--- NOTE | ~2020-11-12 | MR_ITS ---
EXAMINATION: MR thoracic spine wo/w con EXAM DATE: 11/14/2020 08:46 INDICATION: Clinical concern for demyelinating process. Headache, speech impairment, dizziness and di plopia. Prior lumbar puncture 2018. TECHNIQUE: Multi-sequential, multiplanar MR images of the thoracic spine were obtained without contra st. Sagittal T1, T2, T2 fat saturation, axial T2 weighted images reviewed. Axial T1 weighted sequenc e. Patient was then injected with 15 mL Multihance intravenous contrast and reimaged. Postcontrast axial and sagittal T1-weighted fat saturation sequences were obtained. There are no prior studies for comparison. FINDINGS: The spinal cord signal intensity and intrinsic morphology is normal. There are no areas of abnormal enhancement on the post contrast images. Mild thoracic facet arthropathy. The vertebral bodi es are aligned in the AP dimension. Vertebral body and disc heights are well-maintained. There are no suspicious marrow signal abnormalities. Paraspinal soft tissue is unremarkable. Disc margins are con fined to their endplates. Mild narrowing of thoracic neural foramen at T9-10 and T10-11. Otherwise th oracic neural foramen and central canal widely patent. IMPRESSION: 1. Normal thoracic cord signal. 2. Mild spondylosis. Reviewed, dictated and finalized at location A. ET STEAMER
--- NOTE | ~2020-11-12 | CT_ITS ---
EXAMINATION: CT brain wo con EXAM DATE: 11/12/2020 10:51 INDICATION: stroke . Unable to speak. TECHNIQUE: Spiral CT of the head was performed without contrast. Axial, coronal and sagittal images were reviewed. The dose-length product (DLP) for this examination was 605.33 mGy-cm. The exposure w as tailored according to patient size, and iterative reconstruction (ASIR) was used as additional dos e reduction technique. Comparison is made to prior examination from 02/04/2019. FINDINGS: Prominent hyperostosis frontalis for patient's age. There is no acute intraparenchymal hemo rrhage. No evidence of intraparenchymal brain mass lesion. No evidence of acute infarction. There is no mass effect or midline shift. The ventricles are normal in size. There are no extra-axial col lections. There are no acute calvarial fractures. The orbits are unremarkable. Soft tissue is unrem arkable. The visualized sinuses and mastoid air cells are well aerated. IMPRESSION: No acute intracranial findings. As per stroke protocol, I called these results to emergency room, discussed with Kat Rodríguez MD at 11/12/2020 10:55 VESSEL BUILDER . Reviewed, dictated and finalized at location A. EL BUILDER IMPRESSION: No acute intracranial findings. As per stroke protocol, I called these results to emergency room, discussed wit h Kat Rodríguez MD at 11/12/2020 10:55 VESSEL BUILDER .
--- NOTE | ~2020-11-12 | CT_ITS ---
EXAMINATION: CTA brain carotid EXAM DATE: 11/12/2020 12:51 INDICATION: Slurred speech, weakness TECHNIQUE: Spiral CTA of the carotid arteries was performed with intravenous injection 100 cc of Om nipaque 350. Axial, coronal, sagittal reformatted images reviewed. Additional reformatted images cre ated on dedicated 3-D workstation. NASCET comparable standard used to assess the degree of arterial stenosis. Spiral CT angiogram cerebral arteries performed with the same intravenous injection of con trast. Source images of the brain CTA transferred to dedicated workstation for 3-D rotational image c reation. Coronal, sagittal maximum intensity pixel images also reviewed. The dose-length product (D LP) for this examination was 1143.70 mGy-cm. The exposure was tailored according to patient size, a nd iterative reconstruction (ASIR) was used as additional dose reduction technique. Correlation is ma de to noncontrast head CT earlier same date. FINDINGS: There is bilateral carotid 0% stenosis. The left vertebral artery is dominant. There is no carotid or vertebral basilar arterial dissection or fibromuscular dysplasia. There are no cerebral a rtery aneurysms. There is symmetric cerebral artery arborization. The sagittal, transverse and sigmoi d sinuses enhance normally, no venous sinus thrombosis. Internal cerebral veins also enhance normally . IMPRESSION: 1. No cervical arterial dissection or cerebral artery aneurysm. 2. Bilateral carotid 0% stenosis. Reviewed, dictated and finalized at location A. HING CONSULTANT
--- NOTE | ~2020-11-12 | MR_ITS ---
EXAMINATION: MR cervical spine wo/w con EXAM DATE: 11/14/2020 08:46 INDICATION: Diplopia, dizziness, headache. Difficulty speaking. Clinical concern for demyelinating pr ocess. TECHNIQUE: Multi-sequential, multiplanar MR images of the cervical spine were obtained without contra st. Axial T2, axial T2 MERGE sequence. Sagittal T1, T2, T2 fat saturation images also obtained. Axi al T1 weighted sequence. Patient was then injected with 15 mL Multihance intravenous contrast and re imaged. Postcontrast axial and sagittal T1-weighted fat saturation sequences were obtained. There i s no prior study for comparison. FINDINGS: The spinal cord signal intensity and intrinsic morphology is normal. Cervicomedullary junc tion is normal in appearance. There are no suspicious marrow signal abnormalities. The vertebral bodi es are aligned in the AP dimension. Neck maintained Paraspinal soft tissue is unremarkable. There a re no areas of abnormal enhancement on the post contrast images. Level by level evaluation: C2-C3: Disc does not extend beyond the endplate margin. Uncovertebral joint arthropathy: None. Facet joint arthropathy: Mild bilateral. Neural foraminal stenosis: No stenosis. Central canal stenosis: No stenosis. C3-C4: Disc does not extend beyond the endplate margin. Uncovertebral joint arthropathy: None. Facet joint arthropathy: Mild bilateral. Neural foraminal stenosis: No stenosis. Central canal stenosis: No stenosis. C4-C5: Disc does not extend beyond the endplate margin. Uncovertebral joint arthropathy: None. Facet joint arthropathy: Mild bilateral. Neural foraminal stenosis: No stenosis. Central canal stenosis: No stenosis. C5-C6: Disc does not extend beyond the endplate margin. Uncovertebral joint arthropathy: None. Facet joint arthropathy: Mild bilateral. Neural foraminal stenosis: No stenosis. Central canal stenosis: No stenosis. C6-C7: Disc does not extend beyond the endplate margin. Uncovertebral joint arthropathy: None. Facet joint arthropathy: Mild bilateral. Neural foraminal stenosis: No stenosis. Central canal stenosis: No stenosis. C7-T1: Disc does not extend beyond the endplate margin. Uncovertebral joint arthropathy: None. Facet joint arthropathy: Mild bilateral. Neural foraminal stenosis: No stenosis. Central canal stenosis: No stenosis. IMPRESSION: 1. Normal cervical spinal cord signal. 2. Mild facet arthropathy. Reviewed, dictated and finalized at location A. UCT DEVELOPER
--- NOTE | 2020-11-12 10:43 | ECG_ITS ---
Measurements Intervals [place] Rate: 92 P: 31 HI: 138 QRS: 32 QRSD: 79 T: 55 QT: 370 QTc: 460 Interpretive Statements SINUS RHYTHM BASELINE WANDER- V1-V3 NORMAL ECG Electronically Signed On 11-12-2020 13:24:50 FRONT OFFICE CLERK by Ar Valle D.O.
[2020-11-12 10:59] LABS: Glucose Point of Care 157 (65-105)
[2020-11-12] MEDS: LORazepam INJ (*CRX) 2 MG/ML VIAL IV PUSH (11:10)
[2020-11-12 11:18] LABS: Basophils Percent Auto 0.3 % (0.2-1.2); Eosinophils Absolute Auto 0.1 K/mm3 (0-0.3); Eosinophils Percent Auto 1.4 % (0-4.4); Hemoglobin 12.1 g/dL (12.0-15.0); Immature Granulocyte Absolute 0.04 K/mm3 (0.00-0.031); Immature Granulocyte Percent A 0.4 % (0-0.5); Lymphocytes Absolute Auto 2.22 K/mm3 (0.9-3.2); Lymphocytes Percent Auto 23.7 % (18.3-44.2); Mean Corpuscular HGB Conc 32.7 g/dl (32-36); Mean Corpuscular Hemoglobin 28.3 pg (26-34); Mean Corpuscular Volume 86.7 fl (80-100); Mean Platelet Volume 8.3 fl (7.4-10.4); Monocytes Absolute Auto 0.5 K/mm3 (0.1-0.6); Monocytes Percent Auto 4.9 % (2.6-8.5); Neutrophils Absolute Auto 6.5 K/mm3 (1.3-6.7); Neutrophils Percent Auto 69.3 % (45.5-73.1); Platelet Count Result 345 k/mm3 (150-375); Red Blood Count 4.27 M/mm3 (4.2-5.4); Red Cell Distribution Width 13.5 % (11.5-14.5); White Blood Count 9.4 K/mm3 (4.5-10.0)
--- NOTE | 2020-11-12 11:27 | ED.NEUROSD ---
HPI - Neuro Symptoms/Deficit General Chief Complaint: Suspected CVA Stated Complaint: poss stroke Time Seen by Provider: 11/12/20 10:55 Source: patient and family Mode of arrival: ambulatory Limitations: physical limitation History of Present Illness HPI Narrative: This patient is a 35 year old female with history DM, hypertension, anxiety who presents for evaluation of possible CVA. Her daughter is at bedside giving history. Patient has stuttering speech so unable to give history at this time. Her daughter states she was woken up between 7-8 am this morning, because patient was having weakness and difficulty speaking. She states patient was normal at bedtime at 11 pm last night. She states patient has not had similar symptoms in the past. Related Data Home Medications Medication Instructions Recorded Confirmed losartan 100 mg PO DAILY 04/30/20 11/12/20 metformin 500 mg PO TID 04/30/20 11/12/20 Tresiba FlexTouch U-200 92 unit SUBCUT HS 07/06/20 11/12/20 albuterol sulfate [ProAir HFA] 1 inh INHALATION PRN PRN 07/06/20 11/12/20 rosuvastatin [Crestor] 10 mg PO DAILY 08/09/20 11/12/20 aspirin [Adult Low Dose Aspirin] 81 mg PO DAILY 11/12/20 11/12/20 ergocalciferol (vitamin D2) 1,250 mcg PO WEEKLY 11/12/20 11/12/20 [Vitamin D2] glimepiride [Amaryl] 1 mg PO DAILY 11/12/20 11/12/20 hydrochlorothiazide 12.5 mg PO DAILY 11/12/20 11/12/20 icosapent ethyl [Vascepa] 2 g PO BID 11/12/20 11/12/20 sertraline 100 mg PO DAILY 11/12/20 11/12/20 Allergies Allergy/AdvReac Type Severity Reaction Status Date / Time metoclopramide AdvReac Severe PANIC Verified 11/12/20 15:39 ATTACKS prochlorperazine AdvReac Severe Itching Verified 11/12/20 15:39 [From Compazine] ondansetron AdvReac Other Verified 11/12/20 15:41 promethazine AdvReac Other Verified 11/12/20 15:43 Review of Systems Review of Systems: ROS unobtainable: Yes other (stuttering speech) PMFSH Past Medical History Medical History Anxiety Dyslipidemia Empty sella syndrome Fibromyalgia Gastroesophageal reflux disease Hypertension Insulin dependent type 2 diabetes mellitus Migraine headache Polycystic kidney disease Polycystic ovarian syndrome Surgical History Surgical History History of laparoscopic cholecystectomy (~2005) Family History Family History Father Diabetes mellitus Hypertension Myocardial infarct Heart disease Mother Diabetes mellitus Heart disease Sibling Narcolepsy and cataplexy Social History Social History (Updated 11/12/20 @ 14:01 by Anaya Mary PA-C) Social History: The patient is and lives in [place]. She works for the [employer]. Smoking packs per day: 0.5 Smoking cigarettes per day: 10.0 Smoking status: Former smoker Tobacco type: cigarettes Second hand tobacco smoke exposure: Yes Alcohol intake: never Substance use: never Spiritual care concerns: No Exam Narrative: Exam Narrative: GENERAL: obese, patient extremely anxious, stuttering. HEAD: Normocephalic, atraumatic EYES: PERRLA and EOMI, conjunctiva clear without discharge EARS: TM's clear bilaterally without erythema or dullness THROAT:Mucous membranes moist, Oropharynx normal without erythema, exudate, peritonsillar swelling or fluctuance NECK: Supple, without lymphadenopathy or mass RESPIRATORY: No respiratory distress, Airway patent, Respirations non-labored, Clear to auscultation without rales, rhonchi or wheeze HEART: Regular rate and rhythm. No murmur heard. Normal peripheral pulses. ABDOMEN: Soft, nontender, nondistended, normal active bowel sounds. No masses. No rebound or guarding, No organomegaly. EXTREMITIES: No edema, normal strength with full range of motion. SKIN: Warm, dry, normal color without rash Neuro: General: patient orient
[2020-11-12 11:28] LABS: Prothrombin Time 13.8 Seconds (11.1-14.7)
[2020-11-12 11:31] LABS: Anion Gap 11 mmol/L (8-16); Blood Urea Nitrogen 20 mg/dL (7-17); Calcium 9.9 mg/dL (8.4-10.2); Carbon Dioxide 27 mmol/L (22-30); Chloride 102 mmol/L (98-107); Estimated CRCL calculation 107 ml/min; Estimated Glomerular Filt Rate > 60; Glucose 168 mg/dL (65-105); Potassium 3.9 mmol/L (3.4-5.0); Sodium 140 mmol/L (137-145)
[2020-11-12 11:43] LABS: Troponin I < 0.012 ng/mL (0.000-0.034)
--- NOTE | 2020-11-12 11:45 | PC.NURSE ---
Resting on cart. Speech clear.
--- NOTE | 2020-11-12 12:51 | PC.NURSE ---
Pt to CT scan via stretcher.
--- NOTE | 2020-11-12 14:24 | PC.NURSE ---
called lab, Mel, added on HGB A1C, [id number]
[2020-11-12 14:40] LABS: Hemoglobin A1C 7.9 % (<5.7)
--- NOTE | 2020-11-12 15:00 | PM.IMHP ---
H&P: HPI History of Present Illness Date/Time: 11/12/20 15:00 Chief Complaint: Neurological complaints. Narrative: Kylee Guo is a 35-year-old female with hypertension, dyslipidemia, insulin-dependent type 2 diabetes mellitus, empty sella syndrome, and pseudotumor cerebri who presented to the emergency department earlier this morning from home with neurological complaints. Shortly after waking from sleep she developed a sharp shooting pain in the right occiput radiating somewhat to the right forehead followed shortly by severe vertigo. She got up to use the restroom however had difficulties walking due to the vertigo and newly developed diplopia. She woke her children for help ?as I knew something was wrong.? They checked her glucose (118) and blood pressure (reportedly within normal limits). Given these normal findings, she decided to lie down however as the hours progressed she began experiencing difficulties speaking (reports of stuttering) and swallowing in addition to weakness in both legs and uncontrollable contractures of the hands. Her symptoms resolved within several hours although she continues to have a headache and has some floaters in her visual samayoa. With further questioning it sounds like she will on occasion suffer from vertigo, and 1 point in time she was told that she may have many years however I do not think that is an official diagnosis. She denies anxiety and hyperventilating at the time of these symptoms. No chest pain, palpitations, or history of irregular heart rhythm. Review of Systems Review of Systems: Narrative: Twelve systems were reviewed with pertinent positives and negatives as per HPI. No fever, chills, or sweats. She gets migraine headaches on occasion, and she typically will have a lumbar puncture when the increase in frequency, which she attributes to her pseudotumor cerebri. She is followed by a neurosurgeon and apparently there are no plans for a shunt. She has tried Diamox however is intolerant to that, unfortunately. More recently she has been having episodes of chest pain and it sounds as though she had a cardiac CT which was concerning for greater than 60% blockage in the LAD and fact she is set to have a cardiac catheterization at [facility] this coming Monday. Her diabetes has been much better controlled with the addition of glimepiride. She does suffer from neuropathy in her hands and feet and is being followed by a retina specialist for mild retinopathy. No nephropathy but she is followed by a neurologist in [place] due to multiple cysts on her kidney, although she denies official diagnosis of polycystic kidneys. Except as documented, all other systems were reviewed and are negative. [facility] Past Medical History Medical History (Updated 11/12/20 @ 23:19 by Anaya Mary PA-C) Anxiety Dyslipidemia Empty sella syndrome Fibromyalgia Gastroesophageal reflux disease History of Pettit's palsy Hypertension Insulin dependent type 2 diabetes mellitus Hemoglobin A1c on 11/12/2020 was 7.9%. Kidney cysts Followed by a central office installer in [place]. Migraine headache Polycystic ovarian syndrome Pseudotumor cerebri Surgical History Surgical History History of laparoscopic cholecystectomy (~2005) Family History Family History Father Diabetes mellitus Hypertension Myocardial infarct Heart disease Mother Diabetes mellitus Heart disease Sibling Narcolepsy and cataplexy Social History Social History (Updated 11/12/20 @ 23:17 by Anaya Mary PA-C) Social History: The patient is and lives in [place] with her teenage son and daughter. She works for the [employer]. She smoked about a half a pack of cigarettes a day and quit in June 2020. No alcohol or illicit substance abuse. She designates her daughter Kiesha as her surrogate decision maker and
--- NOTE | 2020-11-12 15:21 | ADMGEN ---
This patient, Kylee Guo, was admitted to Medical Room 341-01. Patient/family oriented to hospital policies and general routines including ID bracelet, bed and alarms, visiting hours, pain management, procedures, bathroom and other care routines, personal items, smoking policy, room service/diet, and visiting hours. Information on how to activate the Rapid Response Team has been discussed. Patient/Family are encouraged to report perceived risks to care and to ask questions if they do not understand what they are told or what they should do.
[2020-11-12 16:40] LABS: Glucose Point of Care 91 (65-105)
[2020-11-12] MEDS: ACETAMINOPHEN 325 MG TABLET 650 MG PO (17:33)
[2020-11-12] MEDS: ASPIRIN 81 MG CHEWABLE TABLET 324 MG PO (19:53)
[2020-11-12 21:57] LABS: Glucose Point of Care 217 (65-105)
--- NOTE | 2020-11-12 23:26 | PHAR ---
VERIFIED HOME MEDS: * USE FROM HOME * ICOSAPENT ETHYL (VASCEPA) 0.5 GRAM CAPSULE TAKE 4 CAPSULES BY MOUTH TWICE DAILY *use from home* Insulin Degludec [Tresiba Flextouch U-200] 200 unit/mL inject 92 units sub-q at bedtime
[2020-11-13] VITALS (9 sets, daily range): BP systolic 125–153; BP diastolic 64–94; PULSE 74–100; RESP 16–18; TEMP 36.1–36.3; O2SAT 99–100
[2020-11-13 06:42] LABS: Anion Gap 9 mmol/L (8-16); Blood Urea Nitrogen 19 mg/dL (7-17); Calcium 9.3 mg/dL (8.4-10.2); Carbon Dioxide 31 mmol/L (22-30); Chloride 102 mmol/L (98-107); Estimated CRCL calculation 95 ml/min; Estimated Glomerular Filt Rate > 60; Glucose 113 mg/dL (65-105); Magnesium 2.2 mg/dL (1.6-2.3); Potassium 3.7 mmol/L (3.4-5.0); Sodium 142 mmol/L (137-145)
[2020-11-13] MEDS: GLIMEPIRIDE 1 MG TABLET PO (07:23)
[2020-11-13] MEDS: ASPIRIN 81 MG CHEWABLE TABLET PO (07:23)
[2020-11-13] MEDS: SERTRALINE HCL 50 MG TABLET 100 MG PO (07:26)
[2020-11-13] MEDS: LOSARTAN POTASSIUM 100 MG TABLET PO (07:26)
[2020-11-13] MEDS: hydroCHLOROthiazide 12.5 MG CAPSULE PO (07:26)
[2020-11-13 07:53] LABS: Glucose Point of Care 94 (65-105)
[2020-11-13] MEDS: ACETAMINOPHEN 325 MG TABLET 650 MG PO (12:33)
--- NOTE | 2020-11-13 13:00 | PM.IMPN ---
Progress Note: A&P Assessment and Plan (1) Neurological symptoms: Code(s): R29.90 - Unspecified symptoms and signs involving the nervous system Status: Acute Assessment and Plan: Patient presented with complaints of vertigo, diplopia, dysarthria, and dysphagia. Symptoms have improved, although she still is endorsing facial numbness and decreased strength. Head CT with no acute findings and head/ neck CTA showed no cervical arterial dissection, aneurysm, and 0% stenosis of bilateral carotids. Brain MRI has been ordered but not able to be completed today due to the holiday. I spoke with neurologist Dr. Jimenez who recommends waiting to perform MRI tomorrow. Also recommends adding MRI of neck and thoracic spine to rule out demyelinating disease. He will evaluate the patient tomorrow. Continue to monitor neurologic checks q4 hours Will evaluate lipid panel Continue aspirin 81 mg daily (2) Hypertension: Qualifiers: Hypertension type: unspecified Qualified Code(s): I10 - Essential (primary) hypertension Code(s): I10 - Essential (primary) hypertension Status: Chronic Assessment and Plan: blood pressure evaluated today and is stable 135/78. Continue losartan and HCTZ. 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 blood sugars evaluated today and are stable. Continue Accu-Cheks ACHS, SSI, and hypoglycemic protocol continue glimepiride (5) Anxiety: Code(s): F41.9 - Anxiety disorder, unspecified Status: Inactive Assessment and Plan: Patient denies feeling anxious presently. She denies any anxiety at the onset of her symptoms. She reports history of anxiety attacks and notes that her current symptoms are not consistent with prior episodes of anxiety. continue sertraline Subjective Date/time seen: 11/13/20 13:00 Interval history: Date of service: 11/13/2020 Kylee Guo is a 35-year-old female with a history of anxiety, hypertension, insulin-dependent type 2 diabetes mellitus, PCOS, and pseudotumor cerebri who is seen in follow-up for neurological complaints including vertigo, diplopia, dysarthria, and dysphagia. she is feeling better today as compared to the onset of her symptoms. She is still endorsing numbness of her lips and face, especially in the right cheek. She feels that her ground layer is very weak. She is also complaining of frontal head pressure. She does not feel that this is a headache but feels like more of a foggy sensation. She also thinks that she is still occasionally slurring her words. She denies dizziness or lightheadedness. She has been ambulating without difficulty, but does feel little more unsteady than normal. She denies feelings of anxiety or panic. She denies visual changes, problems with hearing or ear pain, dysphagia, odynophagia. She denies neck pain. She denies any numbness or tingling of her extremities, although she does note she has neuropathy in her lower extremities. She denies fever, chills, nausea, or vomiting. Review of Systems Review of Systems: All systems reviewed & are unremarkable except as noted in HPI and below Exam Narrative: Exam Narrative: Ms. Guo is an obese, well-appearing 35-year-old female who is lying supine in bed. She appears comfortable and is in NARD. HR 86, BP 135/78, RR 17, T 97.1?, 100% on room air Neuro: awake, alert and oriented x4, speech clear, CN II-XII intact, strength 5/5 throughout, sensation intact, no pronator drift, bilateral ground layer strength equal, able to per
[2020-11-13 13:02] LABS: Glucose Point of Care 83 (65-105)
[2020-11-13 17:05] LABS: Glucose Point of Care 207 (65-105)
[2020-11-13] MEDS: GLIMEPIRIDE 2 MG TABLET PO (17:55)
[2020-11-13] MEDS: ROSUVASTATIN 10 MG TABLET PO (20:44)
[2020-11-13 22:44] LABS: Glucose Point of Care 260 (65-105)
[2020-11-14] VITALS: PULSE 76
[2020-11-14 04:00] VITALS: BP 152/83; PULSE 90; PULSE 91; RESP 18; TEMP 36.1; O2SAT 100
[2020-11-14 04:04] LABS: Glucose Point of Care 76 (65-105)
[2020-11-14] MEDS: ACETAMINOPHEN 325 MG TABLET 650 MG PO (05:09)
[2020-11-14 06:02] LABS: Hematocrit 31.3 % (37.0-47.0); Hemoglobin 10.1 g/dL (12.0-15.0); Mean Corpuscular HGB Conc 32.3 g/dl (32-36); Mean Corpuscular Hemoglobin 27.7 pg (26-34); Mean Platelet Volume 8.4 fl (7.4-10.4); Platelet Count Result 282 k/mm3 (150-375); Red Blood Count 3.64 M/mm3 (4.2-5.4); Red Cell Distribution Width 13.2 % (11.5-14.5); White Blood Count 7.9 K/mm3 (4.5-10.0)
[2020-11-14 06:15] LABS: Alanine Aminotransferase 23 U/L (4-35); Albumin Level 3.8 g/dL (3.5-5.1); Alkaline Phosphatase 70 U/L (38-126); Anion Gap 6 mmol/L (8-16); Aspartate Amino Transferase 23 U/L (14-36); Bilirubin,Total 0.4 mg/dL (0.2-1.3); Blood Urea Nitrogen 19 mg/dL (7-17); Calcium 8.8 mg/dL (8.4-10.2); Carbon Dioxide 30 mmol/L (22-30); Chloride 104 mmol/L (98-107); Cholesterol 133 mg/dL (0-200); Estimated CRCL calculation 108 ml/min; Estimated Glomerular Filt Rate > 60; Glucose 110 mg/dL (65-105); HDL Direct 26 mg/dL; Potassium 3.8 mmol/L (3.4-5.0); Sodium 140 mmol/L (137-145); Triglycerides 197 mg/dL (<150)
[2020-11-14 06:25] LABS: LDL Cholesterol Direct 64 mg/dL
[2020-11-14] MEDS: LORazepam (*CRX) 1 MG TABLET PO (06:50)
[2020-11-14] MEDS: SERTRALINE HCL 50 MG TABLET 100 MG PO (09:16)
[2020-11-14] MEDS: hydroCHLOROthiazide 12.5 MG CAPSULE PO (09:16)
[2020-11-14] MEDS: LOSARTAN POTASSIUM 100 MG TABLET PO (09:16)
[2020-11-14] MEDS: ASPIRIN 81 MG CHEWABLE TABLET PO (09:16)
[2020-11-14 09:23] LABS: Glucose Point of Care 103 (65-105)
[2020-11-14] MEDS: ERGOCALCIFEROL 50,000 UNIT CAPSULE 50000 UNITS PO (10:20)
[2020-11-14 12:00] VITALS: PULSE 99
[2020-11-14 12:00] LABS: Glucose Point of Care 219 (65-105)
--- NOTE | 2020-11-14 12:11 | WPDNEURCNPN ---
Assessment and Plan Assessment and plan (1) Pseudotumor cerebri: Code(s): G93.2 - Benign intracranial hypertension Status: Acute (2) Hypertension: Code(s): I10 - Essential (primary) hypertension Status: Acute (3) Dyslipidemia: Code(s): E78.5 - Hyperlipidemia, unspecified Status: Acute (4) Morbid obesity: Code(s): E66.01 - Morbid (severe) obesity due to excess calories Status: Chronic (5) Fibromyalgia: Code(s): M79.7 - Fibromyalgia Status: Chronic (6) Diabetes mellitus: Qualifiers: Diabetes mellitus type: type 2 Diabetes mellitus intermediate manager insulin use: without intermediate manager use Diabetes mellitus complication status: without complication Qualified Code(s): E11.9 - Type 2 diabetes mellitus without complications Code(s): E11.9 - Type 2 diabetes mellitus without complications Status: Chronic (7) Hypertension: Qualifiers: Hypertension type: unspecified Qualified Code(s): I10 - Essential (primary) hypertension Code(s): I10 - Essential (primary) hypertension Status: Chronic Additional Plan No evidence of stroke, no evidence of demyelinating disease, and no evidence of any underlying vascular risk factors, plan is discussed with the patient thoroughly and further recommendations accordingly if she is concerned about the pseudotumor cerebri the only thing he can do document by his spinal tap Consult date: 11/14/20 Time Seen: 12:00 HPI: Kylee Guo is a 35 year old female Admitted to the hospital with a complaint of sharp shooting pain in the right occipital area radiating to the right forehead shortly before severe vertigo she got up to use the restroom however had difficulties walking due to the vertigo and then developed diplopia she called her children for help the checked her blood sugar which was 118 and the blood pressure was within normal limits they asked her to lie down with the symptomatology progressed that she was having difficulties in speaking and swallowing with weakness in both lower extremities and uncontrollable contractured of the hands. Symptomatology resolved within several hours but she continued to have headaches and floaters in the visual field she gave no history of anxiety or hyperventilation. She does have ongoing history of as per the further information available 1. Anxiety 2. Empty sella syndrome 3. Fibromyalgia 4. GERD 5. Hypertension 6. Insulin-dependent type 2 diabetes mellitus 7. Migraine and 8. Polycystic ovarian syndrome with pseudotumor cerebri. Evaluation up until now included the CT scan of the head which was negative, head neck CTA was also normal, brain MRI also, normal with no evidence of demyelinating disease as well or any pituitary tumor, cervical spine MRI normal and so as the thoracic spine MRI with no evidence of demyelinating disease. routine blood studies compatible with only hyperglycemia but otherwise unremarkable. Review of Systems Review of Systems: All systems reviewed & are unremarkable except as noted in HPI and below PMFSH Past Medical History Medical History Anxiety Dyslipidemia Empty sella syndrome Fibromyalgia Gastroesophageal reflux disease History of Pettit's palsy Hypertension Insulin dependent type 2 diabetes mellitus Hemoglobin A1c on 11/12/2020 was 7.9%. Kidney cysts Followed by a classified ad taker in [place]. Migraine headache Polycystic ovarian syndrome Pseudotumor cerebri Surgical History Surgical History History of laparoscopic cholecystectomy (~2005) Family History Family History Father Diabetes mellitus Hypertension Myocardial infarct Heart disease Mother Diabetes mellitus Heart disease Sibling Narcolepsy and cataplexy Social History Social History (Reviewed 11/14/20 @ 12:17 by Radha
--- NOTE | 2020-11-14 14:05 | PM.DS ---
DS: Admitting Diagnosis Admitting Diagnosis Admitting Diagnosis: Neurological symptoms DS: Discharge Diagnosis Discharge Diagnosis (1) Neurological symptoms: Code(s): R29.90 - Unspecified symptoms and signs involving the nervous system Status: Acute Assessment and Plan: Patient presented with complaints of vertigo, diplopia, dysarthria, dysphagia, facial numbness and decreased strength. It seems that her symptoms are quite intermittent. Etiology for her symptoms are not entirely clear at this time. Head CT with no acute findings and head/ neck CTA showed no cervical arterial dissection, aneurysm, and 0% stenosis of bilateral carotids.Brain MRI was unremarkable and cervical and thoracic MRI showed normal cord signal with no other acute findings. Symptoms are not consistent with TIA. She was seen in consultation by Neurology, with whom she is established. Dr. Jimenez recommends outpatient EEG and follow up in the office. Lipid panel evaluated. Continue aspirin 81 mg daily. (2) Hypertension: Qualifiers: Hypertension type: unspecified Qualified Code(s): I10 - Essential (primary) hypertension Code(s): I10 - Essential (primary) hypertension Status: Chronic Assessment and Plan: blood pressure was monitored closely and remained stable. Continue losartan and HCTZ. (3) Dyslipidemia: Code(s): E78.5 - Hyperlipidemia, unspecified Status: Acute Assessment and Plan: Lipid panel evaluated. Continue rosuvastatin. 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 Blood sugars were monitored. She will continue glimepiride. (5) Anxiety: Code(s): F41.9 - Anxiety disorder, unspecified Status: Inactive Assessment and Plan: Mood was stable. She denied any anxiety at the onset of her symptoms. She reports history of anxiety attacks and notes that her current symptoms are not consistent with prior episodes of anxiety. Continue sertraline. She may benefit from outpatient evaluation by psychiatry to ensure that there is not an underlying psychiatric cause for her symptoms. She was previously established with a psychiatrist and agrees that she may benefit from seeing them again. (6) Pseudotumor cerebri: Code(s): G93.2 - Benign intracranial hypertension Status: Acute Assessment and Plan: She has previously been evaluated by neurosurgery for an intracranial shunt but was not recommended at that time. Will defer to neurology if another referral to neurosurgery may be in order. DS: Summary Hospital Course Reason for hospitalization: Neurologic symptoms Hospital Course: date of admission: 11/12/2020 date of discharge: 11/14/2020 Kylee Guo is a 35-year-old female with a history of anxiety, hypertension, insulin-dependent type 2 diabetes mellitus, PCOS, and pseudotumor cerebri who presented to the emergency department on 11/12/2020 with complaints of stuttering speech and weakness. Upon presentation to the emergency department her blood pressure was significantly elevated with additional vital signs stable, CBC and BMP normal, head CT was no acute findings, and head/ neck CTA was negative for dissection or aneurysm and showed 0% bilateral carotid stenosis. She was admitted to the hospitalist service for further evaluation management and was seen in consultation by Neurology. Please see above for further details. this was not felt to be consistent with CVA or TIA. She will follow-up as an outpatient with Neurology for further evaluation of her symptoms and will obtain an EEG. Her symptoms resolved, however she did note occasional intermittent weakness and speech changes with no particular pattern for onset or duration of symptoms that I
== END 2020-11-14 15:03 | disposition home or self-care (01) ==
LOC: ANHED 10:55 → ANH3MED 14:34
PROVIDERS: Physician Assistant; Admitting Provider Family Medicine; Emergency Provider General Practice; PCP Nurse Practitioner; Visit Provider Physician Assistant
DX: R29.90 Unspecified symptoms and signs involving the nervous system (principal); G93.2 Benign intracranial hypertension; R47.89 Other speech disturbances; I10 Essential (primary) hypertension; E11.9 Type 2 diabetes mellitus without complications; F41.9 Anxiety disorder, unspecified; E78.5 Hyperlipidemia, unspecified; M79.7 Fibromyalgia; K21.9 Gastro-esophageal reflux disease without esophagitis; E23.6 Other disorders of pituitary gland; Q61.3 Polycystic kidney, unspecified; E28.2 Polycystic ovarian syndrome; Z79.4 Long term (current) use of insulin; Z79.84 Long term (current) use of oral hypoglycemic drugs; Z79.82 Long term (current) use of aspirin; Z87.891 Personal history of nicotine dependence; E66.01 Morbid (severe) obesity due to excess calories; Z68.37 Body mass index [BMI] 37.0-37.9, adult
CPT/HCPCS: 36415; 51701; 70450; 70496; 70498; 70553; 71045; 72156; 72157; 80048; 80053; 80061; 81025; 82948; 83036; 83735; 84484; 85025; 85027; 85610; 85730; 93005; 96374; 99285; A9270; A9577; G0378; J2060; Q9967

== ENCOUNTER 2020-11-18 18:29 | Inpatient (IN) | payer BC, SELFPAY ==
[2020-11-18] VITALS (28 sets, daily range): BP systolic 138–166; BP diastolic 80–98; PULSE 96–125; RESP 13–33; TEMP 36.4–36.6; O2SAT 93–100; BMI 37.6
--- NOTE | ~2020-11-18 | MR_ITS ---
EXAMINATION: MR brain/brain stem wo/w con DATE: 11/21/2020 08:43 INDICATION: Seizure with bilateral upper extremity jerking and stuttering TECHNIQUE: Magnetic resonance imaging (MRI) of the brain and brainstem was performed without and with 19 mL Multihance intravenous contrast. Sequences included sagittal and axial T1-weighted SE, axial d iffusion-weighted FS SE, axial T2*-weighted GRE, axial T2-weighted FLAIR Propeller, axial T2-weighted Propeller, coronal T2-weighted FLAIR, and coronal T1-weighted 3D FSPGR. Postcontrast axial and coron al T1-weighted SE was obtained. Apparent diffusion coefficient (ADC) maps were created. COMPARISON: None. COMPARISON: None. FINDINGS: There are no areas of restricted diffusion to suggest acute infarction. No intracranial hemorrhage or abnormal intracranial mass lesion. There are no intraparenchymal signal abnormalities seen on the ot her pulse sequences. The ventricles are symmetric and normal in size. Hippocampi are normal and symme tric. No evident barrera matter heterotopias or other neuronal migrational abnormalities identified. The re are no abnormal extra-axial fluid collections. Flow voids are seen in the cerebral arteries on the T2-weighted sequences consistent with their expected patency. Mild mucosal thickening in the bilater al ethmoid and frontal sinuses. Visualized orbits and soft tissues are unremarkable. There are no are as of abnormal enhancement on the post contrast images. Hyperostosis frontalis. IMPRESSION: 1. Normal brain with no evident acute intracranial process, developmental abnormalities or abnormally enhancing lesions. Reviewed, dictated and finalized at location A. CT HAMMER OPERATOR IMPRESSION: 1. Normal brain with no evident acute intracranial process, developmental abnor malities or abnormally enhancing lesions.
--- NOTE | ~2020-11-18 | XR_ITS ---
XR abdomen/kub 1V 11/25/2020 11:51 INDICATION: Flank pain TECHNIQUE: KUB COMPARISON: Upper GI dated 06/28/2006 FINDINGS: Bowel gas pattern is normal. There is no evidence of free air, mass, organomegaly, ascites or obstruction. No abnormal calculi are seen. The bones appear intact. There are cholecystectomy c lips. IMPRESSION: 1: No acute abdominal abnormality identified. Reviewed, dictated and finalized at location A. MATOLOGIST
--- NOTE | 2020-11-18 19:06 | PC.NURSE ---
REPORT TO HARDIK ARIZA AT THIS TIME, HE HAS ASSUMED PT CARE.
[2020-11-18] MEDS: LORazepam INJ (*CRX) 2 MG/ML VIAL 1 MG IV PUSH (19:24)
[2020-11-18] MEDS: SODIUM CHLORIDE 0.9% IV 1,000 ML 999 ML IV CONT (19:24)
[2020-11-18 19:33] LABS: Basophils Absolute Auto 0.1 K/mm3 (0.0-0.1); Basophils Percent Auto 0.5 % (0.2-1.2); Eosinophils Absolute Auto 0.2 K/mm3 (0-0.3); Eosinophils Percent Auto 1.6 % (0-4.4); Hematocrit 32.9 % (37.0-47.0); Hemoglobin 11.2 g/dL (12.0-15.0); Immature Granulocyte Absolute 0.04 K/mm3 (0.00-0.031); Immature Granulocyte Percent A 0.4 % (0-0.5); Lymphocytes Absolute Auto 2.72 K/mm3 (0.9-3.2); Mean Corpuscular Hemoglobin 28.6 pg (26-34); Mean Corpuscular Volume 83.9 fl (80-100); Mean Platelet Volume 8.8 fl (7.4-10.4); Monocytes Absolute Auto 0.6 K/mm3 (0.1-0.6); Monocytes Percent Auto 5.9 % (2.6-8.5); Neutrophils Absolute Auto 6.9 K/mm3 (1.3-6.7); Neutrophils Percent Auto 65.6 % (45.5-73.1); Platelet Count Result 376 k/mm3 (150-375); Red Blood Count 3.92 M/mm3 (4.2-5.4); Red Cell Distribution Width 13.3 % (11.5-14.5); White Blood Count 10.5 K/mm3 (4.5-10.0)
[2020-11-18 19:38] LABS: Add Urine Microscopic? YES; Appearance Urine Clear (Clear); Bilirubin Urine Negative (Negative); Blood Urine 1+ (Negative); Color Urine Yellow (Yellow); Glucose Urine UA 3+ mg/dL (Negative); Ketones Urine Negative (Negative); Leukocyte Esterase Ur Negative LEU/UL (Negative); Mucus Urine Rare /lpf; Nitrate Urine Negative (Negative); Protein Urine 3+ mg/dL (Negative); RBC Urine 0-2 /hpf (0-2); Specific Grav Ur 1.028 (1.001-1.035); Squamous Epithelial Cell Urine Few /hpf (Few); Urobilinogen Urine Negative mg/dL (<2.0)
[2020-11-18 19:48] LABS: Anion Gap 14 mmol/L (8-16); Blood Urea Nitrogen 25 mg/dL (7-17); Calcium 9.3 mg/dL (8.4-10.2); Carbon Dioxide 23 mmol/L (22-30); Chloride 102 mmol/L (98-107); Creatine Kinase 37 U/L (30-135); Estimated CRCL calculation 94 ml/min; Estimated Glomerular Filt Rate > 60; Glucose 297 mg/dL (65-105); Sodium 139 mmol/L (137-145)
--- NOTE | 2020-11-18 20:22 | ED.GENADULT ---
HPI - General Adult General Chief complaint: Headache Stated complaint: Extremities jerking Time Seen by Provider: 11/18/20 18:32 History of Present Illness HPI narrative: Patient is a 35-year-old female who presents ER with concerns for seizure. Patient was admitted to the hospital about a week ago for concerns of strokelike symptoms. Negative MRIs and other imaging studies. She was discharged home without having received an EEG and was planned to be done outpatient. Reports this morning she started having left-sided jerking and tingling. She is unable to talk and she urinated herself. Since then she has been having stuttering speech and jerking movements of bilateral upper extremities. She is able to communicate. No trauma. She contacted her neurologist office who recommended she come here if she is having additional issues. Related Data Home Medications Medication Instructions Recorded Confirmed losartan 100 mg PO DAILY 04/30/20 11/18/20 metformin 500 mg PO TID 04/30/20 11/18/20 Tresiba FlexTouch U-200 92 unit SUBCUT HS 07/06/20 11/18/20 albuterol sulfate [ProAir HFA] 1 inh INHALATION PRN PRN 07/06/20 11/18/20 rosuvastatin [Crestor] 10 mg PO DAILY 08/09/20 11/18/20 Vascepa 2 g PO BID 11/12/20 11/18/20 aspirin 81 mg PO DAILY 11/12/20 11/18/20 ergocalciferol (vitamin D2) 1,250 mcg PO WEEKLY 11/12/20 11/18/20 [Vitamin D2] glimepiride [Amaryl] 2 mg PO BID 11/12/20 11/18/20 hydrochlorothiazide 12.5 mg PO DAILY 11/12/20 11/18/20 sertraline 100 mg PO DAILY 11/12/20 11/18/20 Allergies Allergy/AdvReac Type Severity Reaction Status Date / Time metoclopramide AdvReac Severe PANIC Verified 11/12/20 15:39 ATTACKS prochlorperazine AdvReac Severe Itching Verified 11/12/20 15:39 [From Compazine] ondansetron AdvReac Other Verified 11/12/20 15:41 promethazine AdvReac Other Verified 11/12/20 15:43 Review of Systems Review of Systems: All systems reviewed & are unremarkable except as noted in HPI and below Constitutional: Constitutional: Denies chills, Denies fever(s) and Denies weakness ENT: Denies nasal congestion and Denies sore throat Cardiovascular: Cardiovascular: Denies chest pain, Denies rapid heart rate and Denies radiating jaw, neck or arm pain Respiratory: Respiratory: Denies cough, Denies dyspnea and Denies wheezing Gastrointestinal: Gastrointestinal: Denies abdominal pain, Denies diarrhea, Denies nausea and Denies vomiting Neurologic: Denies focal weakness and Reports numbness Comments: Seizures [facility] Past Medical History Medical History (Updated 11/19/20 @ 00:10 by Boubacar Mcdaniels MD) Anxiety Dyslipidemia Empty sella syndrome Fibromyalgia Gastroesophageal reflux disease History of Pettit's palsy Hypertension Insulin dependent type 2 diabetes mellitus Hemoglobin A1c on 11/12/2020 was 7.9%. Kidney cysts Followed by a agriculture technician in [place]. Migraine headache Polycystic ovarian syndrome Pseudotumor cerebri Surgical History Surgical History History of laparoscopic cholecystectomy (~2005) Family History Family History Father Diabetes mellitus Hypertension Myocardial infarct Heart disease Mother Diabetes mellitus Heart disease Sibling Narcolepsy and cataplexy Social History Social History Social History: The patient is and lives in [place] with her teenage son and daughter. She works for the [employer]. She smoked about a half a pack of cigarettes a day and quit in June 2020. No alcohol or illicit substance abuse. She designates her daughter Kiesha as her surrogate decision maker and she wishes to be a full code. Smoking packs per day: 0.5 Smoking cigarettes per day: 10.0 Smoking status: Former smoker Tobacco type: cigarettes Second hand tobacco smoke exposure: Yes Smoking
--- NOTE | 2020-11-18 20:29 | PM.IMHP ---
H&P: HPI History of Present Illness Date/Time: 11/18/20 20:29 Chief Complaint: AMS Narrative: Kylee Guo is a 35 year old female medical history severe anxiety and panic attacks, hypertension, insulin-dependent type 2 diabetes, dyslipidemia, pseudotumor cerebri, empty sella syndrome, fibromyalgia presents to the ED with complaints of seizure activity. Patient states she had an hour of neurological symptoms dizziness, hot flashes, expressive aphasia starter, bladder incontinence, left-sided shaking, body limp. She was awake unconscious for all of these symptoms and remembers them all. She was evaluated last week admitted 11/12/2020 for similar symptoms of the stuttering and uncontrollable contractures of hands. That time she had headache and floaters in her visual field. Patient also has extensive anxiety and panic attack history. Patient states she has current neurological symptoms have only been going on since last week. She has had different neurological symptoms in the past and diagnosed with fibromyalgia but never in this constellation symptoms. Workup last week: Negative head CT, negative neck CTA, unremarkable brain MRI, cervical and thoracic MRI. Symptoms were not consistent with TIA. Neurology recommended outpatient EEG and outpatient follow-up which she was unable to do. In the ED: Patient was tachypneic, tachycardic, hypertensive. Labs otherwise stable, UA negative. A L normal saline, a mg of Ativan. ER provider discussed with neurologist who recommended admission for EEG. Patient will be admitted for observation for an EEG and neurology consultation for her likely pseudoseizures. Review of Systems Review of Systems: Narrative: Constitutional: No Fever, No Chills, No Night Sweats. Endorses generalized weakness and malaise. ENT/Mouth: No Hearing Changes, No Ear Pain, No Nasal Congestion, No Sinus Pain, No Hoarseness, No sore throat, No Rhinorrhea, No Swallowing Difficulty Eyes: No Eye Pain, No Redness, No Vision Changes Cardiovascular: No Chest Pain, No Palpitations, No Dyspnea on Exertion, No Orthopnea, No Claudication, No Edema Respiratory: No Cough, No Sputum, No Wheezing, No Shortness of Breath Gastrointestinal: No Nausea, No Vomiting, No Diarrhea, No Constipation, No Abdominal Pain, No Heartburn, No Hematochezia, No Melena Genitourinary: No Dysuria, No Urinary Frequency, No Hematuria, No Urgency. Endorses urinary incontinence. Musculoskeletal: No Arthralgias, No Myalgias, No Joint Swelling, No Joint Stiffness, No Back Pain Skin: No Skin Lesions, No Pruritis, No Hair Changes Neuro: Denies loss of consciousness. Endorses left-sided weakness, dizziness, headache, left-sided jerking, expressive aphasia, stuttering. Psych: No Anxiety/Panic, No Depression, No Insomnia Heme: No Bruising, No Bleeding Lymph: No Adenopathy Endocrine: No Polyuria, No Polydipsia, endorses hot flashes. [facility] Past Medical History Medical History Anxiety Dyslipidemia Empty sella syndrome Fibromyalgia Gastroesophageal reflux disease History of Pettit's palsy Hypertension Insulin dependent type 2 diabetes mellitus Hemoglobin A1c on 11/12/2020 was 7.9%. Kidney cysts Followed by a vice president of human resources in [place]. Migraine headache Polycystic ovarian syndrome Pseudotumor cerebri Surgical History Surgical History History of laparoscopic cholecystectomy (~2005) Family History Family History Father Diabetes mellitus Hypertension Myocardial infarct Heart disease Mother Diabetes mellitus Heart disease Sibling Narcolepsy and cataplexy Social History Social History Social History: The patient is and lives in [place] with her teenage son and daughter. She works for the [employer]. She smoked
--- NOTE | 2020-11-18 22:09 | ADMGEN ---
This patient, Kylee Guo, was admitted to [facility] Room 301-01. Patient/family oriented to hospital policies and general routines including ID bracelet, bed and alarms, visiting hours, pain management, procedures, bathroom and other care routines, personal items, smoking policy, room service/diet, and visiting hours. Information on how to activate the Rapid Response Team has been discussed. Patient/Family are encouraged to report perceived risks to care and to ask questions if they do not understand what they are told or what they should do.
[2020-11-18 23:44] LABS: Glucose Point of Care 235 (65-105)
[2020-11-18 23:44] LABS: Hemoglobin A1C 7.6 % (<5.7)
[2020-11-19] VITALS (8 sets, daily range): BP systolic 134–153; BP diastolic 76–94; PULSE 88–148; RESP 16–20; TEMP 35.9–37.1; O2SAT 98–100
--- NOTE | 2020-11-19 05:10 | PHAR ---
(Insulin Degludec [Tresiba Flextouch U-200] 200 unit/mL- VERIFIED IN [facility] AND SENT BACK TO FLOOR AT 05:30. NO DOSES REMAINING IN PEN. RN CALLED AND INFORMED TO OBTAIN MORE FOR TONIGHT'S DOSE. (DAP)
--- NOTE | 2020-11-19 05:16 | PHAR ---
(Icosapent Ethyl [Vascepa] 0.5 gram Capsule) VERIFIED IN PHARMACY AND SENT BACK TO FLOOR AT 05:30 (DAP)
[2020-11-19] MEDS: ACETAMINOPHEN 325 MG TABLET 650 MG PO ×2 (06:11→14:42)
[2020-11-19 08:08] LABS: Glucose Point of Care 135 (65-105)
[2020-11-19] MEDS: ASPIRIN 81 MG CHEWABLE TABLET PO (08:43)
[2020-11-19] MEDS: GLIMEPIRIDE 2 MG TABLET PO ×2 (08:43→16:58)
[2020-11-19] MEDS: hydroCHLOROthiazide 12.5 MG CAPSULE PO (08:44)
[2020-11-19] MEDS: LOSARTAN POTASSIUM 100 MG TABLET PO (08:45)
[2020-11-19] MEDS: SERTRALINE HCL 50 MG TABLET 100 MG PO (08:45)
[2020-11-19] MEDS: ROSUVASTATIN 10 MG TABLET PO (08:45)
--- NOTE | 2020-11-19 10:49 | PM.IMPN ---
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 -will place patient on seizure precautions -EEG ordered to evaluate for seizure activity -neurology consulted t (2) Anxiety: Code(s): F41.9 - Anxiety disorder, unspecified Status: Acute Assessment and Plan: -continue home sertraline Subjective Date/time seen: 11/19/20 10:49 Interval history: 35 year old female medical history severe anxiety and panic attacks, hypertension, insulin-dependent type 2 diabetes, dyslipidemia, pseudotumor cerebri, empty sella syndrome, fibromyalgia presents to the ED with complaints of seizure activity. Pt is having pseudo seizure in the bed. Pt having EEG today at the bedside. Review of Systems Review of Systems: All systems reviewed & are unremarkable except as noted in HPI and below Exam Narrative: Exam Narrative: - GENERAL: Morbidly obese woman - LUNGS: Clear to auscultation bilaterally, no wheezing, rhonchi, or rales. - CARDIOVASCULAR: Regular rate and rhythm. No murmur. No JVD. - ABDOMEN: Soft, non-tender and non-distended, obese. No palpable masses. - EXTREMITIES: No edema. Peripheral pulses 2+. Non-tender. - NEUROLOGIC: No focal neurological deficits. CN II-XII grossly intact. Pseudoseizures in the bed active Objective Data Vital Signs Vital Signs: Vital Signs - 24 hr 11/18/20 18:34 11/18/20 18:37 11/18/20 18:44 Temperature 36.6 C Pulse Rate 116 H 117 H 113 H Respiratory Rate 18 22 H 19 Blood Pressure 153/94 H Pulse Oximetry 97 96 99 11/18/20 18:45 11/18/20 19:00 11/18/20 19:01 Temperature Pulse Rate 112 H 113 H 113 H Respiratory Rate 21 H 24 H 30 H Blood Pressure 166/98 H Pulse Oximetry 100 96 97 11/18/20 19:25 11/18/20 19:26 11/18/20 19:30 Temperature Pulse Rate 125 H 118 H 106 H Respiratory Rate 33 H 28 H 21 H Blood Pressure 166/98 H Pulse Oximetry 99 97 94 11/18/20 19:31 11/18/20 19:45 11/18/20 20:00 Temperature Pulse Rate 107 H 105 H 107 H Respiratory Rate 16 20 23 H Blood Pressure 148/90 H Pulse Oximetry 96 96 93 11/18/20 20:01 11/18/20 20:15 11/18/20 20:30 Temperature Pulse Rate 111 H 101 H 103 H Respiratory Rate 20 21 H 16 Blood Pressure 154/82 H Pulse Oximetry 98 96 95 11/18/20 20:31 11/18/20 20:33 11/18/20 20:45 Temperature Pulse Rate 106 H 110 H 100 Respiratory Rate 28 H 28 H 27 H Blood Pressure 139/91 H 139/91 H Pulse Oximetry 98 97 97 11/18/20 21:00 11/18/20 21:01 11/18/20 21:12 Temperature Pulse Rate 102 H 101 H 102 H Respiratory Rate 17 23 H 18 Blood Pressure 138/80 138/80 Pulse Oximetry 96 98 97 11/18/20 21:15 11/18/20 21:45 11/18/20 21:57 Temperature 36.4 C L Pulse Rate 101 H 113 H 105 H Respiratory Rate 13 18 Blood Pressure 154/84 H Pulse Oximetry 99 97 11/18/20 23:01 11/18/20 23:15 11/18/20 23:30 Temperature Pulse Rate 97 97 99 Respiratory Rate Blood Pressure Pulse Oximetry 11/18/20 23:45 11/19/20 00:00 11/19/20 04:00 Temperature 37.1 C 36.1 C L Pulse Rate 96 118 H 88 Respiratory Rate 16 18 Blood Pressure 153/88 H 139/79 Pulse Oximetry 98 99 11/19/20 05:50 11/19/20 08:00 11/19/20 09:43 Temperature 36.1 C L 35.9 C L Pulse Rate 90 100 Respiratory Rate 18 18 Blood Pressure 139/79 134/76 Pulse Oximetry 99 100 98 Intake/Output Intake/Output: Intake & Output 11/16/20 11/17/20 11/18/20 11/19/20 23:59 23:59 23:59 23:59 Intake Total 1000 740 Output Total 800 Balance 1000 -60 Meds/Results Medications: Active Medications Generic Name Dose Route Start Last Admin Trade Name Freq PRN Reason Stop Dose Admin Acetaminophen 650 mg 11/18/20 20:30 11/19/20 06:11 Acetaminophen 325 Mg
[2020-11-19] MEDS: LORazepam (*CRX) 0.5 MG TABLET PO (12:22)
[2020-11-19 12:34] LABS: Glucose Point of Care 166 (65-105)
[2020-11-19] MEDS: HYDROcodone/acetaminophen (*CRX) 5-325 MG TABLET 1 TAB PO (16:57)
[2020-11-19] MEDS: INSULIN ASPART (*BKC) 100 UNITS/ML SUB-Q (17:07)
[2020-11-19 18:16] LABS: Glucose Point of Care 253 (65-105)
[2020-11-19 20:38] LABS: Glucose Point of Care 260 (65-105)
[2020-11-19 21:44] LABS: Glucose Point of Care 203 (65-105)
[2020-11-20] VITALS (8 sets, daily range): BP systolic 121–169; BP diastolic 79–88; PULSE 91–116; RESP 16–20; TEMP 36.1–36.7; O2SAT 97–100
[2020-11-20] MEDS: HYDROcodone/acetaminophen (*CRX) 5-325 MG TABLET 1 TAB PO ×2 (03:13→21:57)
[2020-11-20] MEDS: LORazepam (*CRX) 0.5 MG TABLET PO ×2 (03:28→17:46)
[2020-11-20 03:44] LABS: Glucose Point of Care 112 (65-105)
[2020-11-20] MEDS: diazePAM INJ (*CRX) 10 MG/2 ML SYRINGE 5 MG IM (05:09)
[2020-11-20] MEDS: ASPIRIN 81 MG CHEWABLE TABLET PO (08:17)
[2020-11-20] MEDS: GLIMEPIRIDE 2 MG TABLET PO ×2 (08:18→17:42)
[2020-11-20] MEDS: hydroCHLOROthiazide 12.5 MG CAPSULE PO (08:19)
[2020-11-20] MEDS: LOSARTAN POTASSIUM 100 MG TABLET PO (08:19)
[2020-11-20] MEDS: ROSUVASTATIN 10 MG TABLET PO (08:19)
[2020-11-20] MEDS: SERTRALINE HCL 50 MG TABLET 100 MG PO (08:20)
[2020-11-20 09:43] LABS: Glucose Point of Care 92 (65-105)
[2020-11-20 12:46] LABS: Glucose Point of Care 176 (65-105)
--- NOTE | 2020-11-20 14:52 | PM.IMPN ---
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 LP later - movement disorder clinic on dischrage in [facility] and psychiatry couselling (2) Anxiety: Code(s): F41.9 - Anxiety disorder, unspecified Status: Acute Assessment and Plan: -continue home sertraline, Movements may be panic related advised counselling (3) Hypertension: Code(s): I10 - Essential (primary) hypertension Status: Chronic Assessment and Plan: Chronic and stable (4) Diabetes mellitus: Qualifiers: Diabetes mellitus type: type 2 Diabetes mellitus group home insulin use: without long distance operator use Diabetes mellitus complication status: without complication Qualified Code(s): E11.9 - Type 2 diabetes mellitus without complications Code(s): E11.9 - Type 2 diabetes mellitus without complications Status: Chronic Assessment and Plan: Chronic and stable Subjective Date/time seen: 11/20/20 14:52 Interval history: 35 year old female medical history severe anxiety and panic attacks, hypertension, insulin-dependent type 2 diabetes, dyslipidemia, pseudotumor cerebri, empty sella syndrome, fibromyalgia presents to the ED with complaints of seizure activity. Pt is having pseudo seizure in the bed. Pt having EEG yesterday going for MRI brain today. Ongoing writhing movements of arms and tongue. Review of Systems Review of Systems: All systems reviewed & are unremarkable except as noted in HPI and below Exam Narrative: Exam Narrative: - GENERAL: Morbidly obese woman - LUNGS: Clear to auscultation bilaterally, no wheezing, rhonchi, or rales. - CARDIOVASCULAR: Regular rate and rhythm. No murmur. No JVD. - ABDOMEN: Soft, non-tender and non-distended, obese. No palpable masses. - EXTREMITIES: No edema. Peripheral pulses 2+. Non-tender. - NEUROLOGIC: No focal neurological deficits. CN II-XII grossly intact. Active Pseudoseizures in the bed writhing of tongue and arms Objective Data Vital Signs Vital Signs: Vital Signs - 24 hr 11/19/20 16:00 11/19/20 20:00 11/20/20 00:00 Temperature 36.2 C L 36.6 C 36.1 C L Pulse Rate 120 H 100 93 Respiratory Rate 20 18 18 Blood Pressure 134/90 145/84 H 139/80 Pulse Oximetry 100 98 97 11/20/20 03:49 11/20/20 04:00 11/20/20 08:00 Temperature 36.3 C L 36.6 C Pulse Rate 91 97 105 H Respiratory Rate 20 16 Blood Pressure 121/79 151/88 H Pulse Oximetry 100 99 11/20/20 12:00 Temperature 36.6 C Pulse Rate 92 Respiratory Rate 18 Blood Pressure 155/80 H Pulse Oximetry 99 Intake/Output Intake/Output: Intake & Output 11/17/20 11/18/20 11/19/20 11/20/20 23:59 23:59 23:59 23:59 Intake Total 1000 1780 620 Output Total 1850 200 Balance 1000 -70 420 Meds/Results Medications: Active Medications Generic Name Dose Route Start Last Admin Trade Name Freq PRN Reason Stop Dose Admin Acetaminophen 650 mg 11/18/20 20:30 11/19/20 14:42 Acetaminophen 325 Mg Tablet PO 650 mg Q4H PRN Administration Mild Pain (1-3) or Fever Hydrocodone Bitart/Acetaminophen 1 tab 11/18/20 20:30 11/20/20 03:13 Hydrocodone/Acetaminophen (*Crx) 5-325 Mg Tablet PO 1 tab Q4H PRN Administration Pain Rated 4-6 Albuterol 1 puff 11/18/20 22:57 Albuterol Sulfate (*Sp) Aerosol 1 Puff INHALATION PRN PRN Shortness Of Breath Aspirin 81 mg 11/19/20 08:00 11/20/20 08:17 Aspirin 81 Mg Chewable Tablet PO 81 mg DAILY@0800 LEATHA Administration Dextrose 12.5 gm 11/18/20 22:58 Dextrose 50% 25 Gm/50 Ml Syringe IV PUSH PRN PRN Hypoglycemia Protocol Diazepam 5 mg 11/20/20 03:47 11/20/20 05:09 Diazepam Inj (*Crx) 10 M
[2020-11-20 17:22] LABS: Glucose Point of Care 191 (65-105)
[2020-11-20 18:29] LABS: Troponin I < 0.012 ng/mL (0.000-0.034)
[2020-11-20 21:56] LABS: Glucose Point of Care 277 (65-105)
[2020-11-21] VITALS (11 sets, daily range): BP systolic 133–171; BP diastolic 73–107; PULSE 79–124; RESP 16–24; TEMP 35.8–36.3; O2SAT 95–100
[2020-11-21 01:26] LABS: Glucose Point of Care 96 (65-105)
[2020-11-21] MEDS: diazePAM INJ (*CRX) 10 MG/2 ML SYRINGE 5 MG IV PUSH (01:42)
--- NOTE | 2020-11-21 01:48 | P.PNCROSS_ITS ---
Event Note Event Note Event Note: Rapid response note This is a 35-year-old diabetic female who was admitted to our hospitalist service approximately 3 days ago for seizure-like activity. The patient was also just recently admitted to our hospitalist service approximately 2 weeks ago for similar symptoms including stuttering and uncontrollable contractures of hands. [facility] nursing staff called a rapid response as the patient began to have generalized tonic colonic movements and inability to speak. The patient appeared to be wide awake during the episode and could not her head and follow directions. The patient seizure-like activity [facility] lasted almost 20 minutes in duration and on my arrival to bedside and immediately ordered 5 mg of IV diazepam. The patient was placed on oxygen and her blood sugar was checked. Her bedside blood sugar was normal. Vital Signs are stable. The patient's neurological symptoms improved with IV diazepam and she does not appear to be in any acute distress at this time. The patient's nurse has contacted Dr. Jimenez, Neurology and updated him on the patient's condition. Neurology has ordered Keppra IV 750 mg b.i.d. to be started now. We will continue seizure precautions and neuro checks. Continue neurology recommendations.
[2020-11-21] MEDS: levETIRAcetam IV 750 MG in DEXTROSE 5% 100 ML 430 MG IVPB ×2 (02:12→14:18)
[2020-11-21] MEDS: HYDROcodone/acetaminophen (*CRX) 5-325 MG TABLET 1 TAB PO ×3 (04:42→21:45)
--- NOTE | 2020-11-21 04:55 | PC.NURSE ---
2130 PT RESTING IN BED. ALERT. OX3. TALKING --STUTTERING. IRREGULAR MOVEMENTS NOTED TO ARMS. PT IS PLEASANT AND TALKATIVE. C/O HEADACHE. TYPICAL MIGRAINE FOR HER. OFFERED TYLENOL. REQUESTING NORCO FOR HEADACHE. PRN NORCO GIVEN PO.
--- NOTE | 2020-11-21 05:03 | PC.NURSE ---
0132 BED ALARM ALARMING. ENTERED PT ROOM TO FIND HER ARMS AND LEGS FLAILING AROUND THE BED. AWAKE AND AWARE. UNABLE TO SPEAK. ATTEMPTED TO CALL DR HARRISON--LINE BUSY. [facility]APID RESPONSE CALLED ON OVERHEAD PA. DR HARRISON AND [facility]AP[facility] RESPONSE NURSE AND OTHER STAFF ARRIVED. PT IS AWAKE AND AWARE. VITAL SIGNS ARE STABLE. PT PLACED ON O2 AT 2L/NC. ONE TIME ORDER RECEIVED FOR 5MG VALIUM IVP. PT BEGAN SPEAKING WITHOUT DIFFICULTY AFTER VALIUM DOSE. I PLACED A CALL TO DR LEMOS/NEURO. UPDATE PROVIDED. ORDER FOR KEPPRA 750MG IVPB Q12HRS RECEIVED. DR HARRISON AWARE. CONTINUING TO MOONITOR PATIENT.
--- NOTE | 2020-11-21 05:11 | PC.NURSE ---
0230 KEPPRA DOSE COMPLETED. NO ADVERSE REACTIONS NOTED.
[2020-11-21] MEDS: LORazepam (*CRX) 0.5 MG TABLET PO (07:02)
[2020-11-21] MEDS: ASPIRIN 81 MG CHEWABLE TABLET PO (09:03)
[2020-11-21] MEDS: ROSUVASTATIN 10 MG TABLET PO (09:03)
[2020-11-21] MEDS: GLIMEPIRIDE 2 MG TABLET PO ×2 (09:03→18:02)
[2020-11-21] MEDS: LOSARTAN POTASSIUM 100 MG TABLET PO (09:03)
[2020-11-21] MEDS: SERTRALINE HCL 50 MG TABLET 100 MG PO (09:04)
[2020-11-21] MEDS: hydroCHLOROthiazide 12.5 MG CAPSULE PO (09:04)
[2020-11-21 10:24] LABS: Glucose Point of Care 74 (65-105)
[2020-11-21 13:11] LABS: Glucose Point of Care 91 (65-105)
--- NOTE | 2020-11-21 14:16 | PM.IMPN ---
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 LP later - movement disorder clinic on dischrage in [facility] and psychiatry couselling TReat like seizures until full results are back with IV keppra and ativan for active seizures (2) Anxiety: Code(s): F41.9 - Anxiety disorder, unspecified Status: Acute Assessment and Plan: -continue home sertraline, Movements may be panic related advised counselling and ativan Or true seizures pt on iv keppra (3) Hypertension: Code(s): I10 - Essential (primary) hypertension Status: Chronic Assessment and Plan: Chronic and stable (4) Diabetes mellitus: Qualifiers: Diabetes mellitus type: type 2 Diabetes mellitus skilled nursing insulin use: without creative perfumer use Diabetes mellitus complication status: without complication Qualified Code(s): E11.9 - Type 2 diabetes mellitus without complications Code(s): E11.9 - Type 2 diabetes mellitus without complications Status: Chronic Assessment and Plan: Chronic and stable Subjective Date/time seen: 11/21/20 14:16 Interval history: 35 year old female medical history severe anxiety and panic attacks, hypertension, insulin-dependent type 2 diabetes, dyslipidemia, pseudotumor cerebri, empty sella syndrome, fibromyalgia presents to the ED with complaints of seizure activity. Pt is sleeping in bed arousable, feels tired. Yesterday had alot of writhing movemenmt of arms all day, later she had a tonic clonic seizure and rapid was called prior to that has complained of chest pain troponin ordered was negative. Pt had brain MRI and EEG awaiting full results. Pt seen by DR Moctezuma adviced to continue iv keppra. No further seizures today. Review of Systems Review of Systems: All systems reviewed & are unremarkable except as noted in HPI and below Exam Narrative: Exam Narrative: - GENERAL: Morbidly obese woman - LUNGS: Clear to auscultation bilaterally, no wheezing, rhonchi, or rales. - CARDIOVASCULAR: Regular rate and rhythm. No murmur. No JVD. - ABDOMEN: Soft, non-tender and non-distended, obese. No palpable masses. - EXTREMITIES: No edema. Peripheral pulses 2+. Non-tender. - NEUROLOGIC: No focal neurological deficits. CN II-XII grossly intact. Sleeping well in bed Objective Data Vital Signs Vital Signs: Vital Signs - 24 hr 11/20/20 16:00 11/20/20 20:00 11/20/20 21:59 Temperature 36.7 C 36.4 C Pulse Rate 116 H 107 H 101 H Respiratory Rate 18 16 Blood Pressure 140/87 169/86 H Pulse Oximetry 99 100 11/21/20 00:00 11/21/20 01:17 11/21/20 01:35 Temperature Pulse Rate 79 124 H 89 Respiratory Rate 16 Blood Pressure 144/107 H 171/80 H Pulse Oximetry 98 100 11/21/20 04:00 11/21/20 06:00 11/21/20 08:00 Temperature 36.0 C L Pulse Rate 93 85 93 Respiratory Rate 18 Blood Pressure 143/89 H Pulse Oximetry 100 11/21/20 12:00 Temperature Pulse Rate 96 Respiratory Rate Blood Pressure Pulse Oximetry Intake/Output Intake/Output: Intake & Output 11/18/20 11/19/20 11/20/20 11/21/20 23:59 23:59 23:59 23:59 Intake Total 1000 1780 2300 647.5 Output Total 1850 1300 400 Balance 1000 -70 1000 247.5 Meds/Results Medications: Active Medications Generic Name Dose Route Start Last Admin Trade Name Freq PRN Reason Stop Dose Admin Acetaminophen 650 mg 11/18/20 20:30 11/19/20 14:42 Acetaminophen 325 Mg Tablet PO 650 mg Q4H PRN Administration Mild Pain (1-3) or Fever Hydrocodone Bitart/Acetaminophen 1 tab 11/18/20 20:30 11/21/20 12:29 Hydrocodone/Acetaminophen (*Crx) 5-325 Mg Tablet PO 1 tab Q4H PRN Administration Pain Rated 4-
[2020-11-21] MEDS: MORPHINE SULFATE (*CRX) 4 MG/ML INJ IV PUSH (17:37)
[2020-11-21] MEDS: INSULIN ASPART (*BKC) 100 UNITS/ML SUB-Q (18:04)
[2020-11-21 18:44] LABS: Glucose Point of Care 234 (65-105)
[2020-11-21 20:22] LABS: Glucose Point of Care 339 (65-105)
[2020-11-22] VITALS (9 sets, daily range): BP systolic 119–142; BP diastolic 77–85; PULSE 82–128; RESP 16–20; TEMP 36.1–36.8; O2SAT 100
[2020-11-22] MEDS: LORazepam (*CRX) 0.5 MG TABLET PO (00:40)
[2020-11-22] MEDS: levETIRAcetam IV 750 MG in DEXTROSE 5% 100 ML 430 MG IVPB ×2 (01:35→14:18)
--- NOTE | 2020-11-22 02:22 | PC.NURSE ---
1464 Pt moved to camera room for closer observation. Pt agreeable I would feel better being closer to nurses station and closer observed.
[2020-11-22 06:21] LABS: Hematocrit 31.5 % (37.0-47.0); Hemoglobin 10.2 g/dL (12.0-15.0); Mean Corpuscular HGB Conc 32.4 g/dl (32-36); Mean Corpuscular Hemoglobin 27.9 pg (26-34); Mean Corpuscular Volume 86.3 fl (80-100); Mean Platelet Volume 8.4 fl (7.4-10.4); Platelet Count Result 283 k/mm3 (150-375); Red Blood Count 3.65 M/mm3 (4.2-5.4); Red Cell Distribution Width 13.2 % (11.5-14.5); White Blood Count 8.2 K/mm3 (4.5-10.0)
[2020-11-22 06:36] LABS: Anion Gap 4 mmol/L (8-16); Blood Urea Nitrogen 21 mg/dL (7-17); Calcium 9.1 mg/dL (8.4-10.2); Carbon Dioxide 31 mmol/L (22-30); Chloride 104 mmol/L (98-107); Estimated CRCL calculation 96 ml/min; Estimated Glomerular Filt Rate > 60; Glucose 170 mg/dL (65-105); Potassium 4.1 mmol/L (3.4-5.0); Sodium 139 mmol/L (137-145)
--- NOTE | 2020-11-22 07:35 | PC.NURSE ---
0124 C/O INABILITY TO MOVE HERE RIGHT ARM AND LEG. NEURO INTACT WITH IMPROVED SPEECH AT THIS TIME. KEPPRA DOSE INITIATED. PT MOVED TO ROOM 333 FOR BETTER OBSERVATION. HOSPITALIST DR HARRISON MADE AWARE.
[2020-11-22 08:31] LABS: Glucose Point of Care 95 (65-105)
[2020-11-22] MEDS: ROSUVASTATIN 10 MG TABLET PO (09:28)
[2020-11-22] MEDS: LOSARTAN POTASSIUM 100 MG TABLET PO (09:28)
[2020-11-22] MEDS: hydroCHLOROthiazide 12.5 MG CAPSULE PO (09:28)
[2020-11-22] MEDS: GLIMEPIRIDE 2 MG TABLET PO ×2 (09:28→17:33)
[2020-11-22] MEDS: ASPIRIN 81 MG CHEWABLE TABLET PO (09:29)
[2020-11-22] MEDS: SERTRALINE HCL 50 MG TABLET 100 MG PO (09:29)
[2020-11-22] MEDS: HYDROcodone/acetaminophen (*CRX) 5-325 MG TABLET 1 TAB PO ×4 (09:41→23:26)
[2020-11-22 12:32] LABS: Glucose Point of Care 183 (65-105)
--- NOTE | 2020-11-22 13:07 | WPDNEUROLOGY ---
Neurology EEG Report General Information Date of Study: 11/19/20 TEST EEG DIAGNOSIS seizures CONDITION OF RECORDING drowsy and sleep EEG NUMBER [id number] CLINICAL HISTORY patient reported she came into hospital last week thinking she was having a stroke but was not. Was discharged then yesterday started having the same symptoms and started jerking uncontrollably week, vomited and lost control of bladder. Now today she is having continual body jerking twitches and stuttering EEG DESCRIPTION basic resting occipital frequency consists of large amount of well-organized low to medium voltage 11 to 13 hertz per 2nd alpha admixed with low-voltage 15 to 18 hertz per 2nd beta. During drowsiness low-voltage beta activity seen diffusely admixed with waxing and waning posterior alpha rhythm. Hyperventilation not done photic stimulation not done. Non paroxysmal nonfocal nonlateralizing. IMPRESSION Normal record
--- NOTE | 2020-11-22 13:35 | WPDNEUROPN ---
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 Status: Acute (4) Hypertension: Code(s): I10 - Essential (primary) hypertension Status: Chronic (5) Dyslipidemia: Code(s): E78.5 - Hyperlipidemia, unspecified Status: Acute (6) Morbid obesity: Code(s): E66.01 - Morbid (severe) obesity due to excess calories Status: Chronic (7) Fibromyalgia: Code(s): M79.7 - Fibromyalgia Status: Chronic Additional Plan during her last visit she was evaluated for the possibility of demyelinating disease all the studies were negative now she came with stuttering speech her EEG is completely normal most likely her symptomatology is unrelated to radial pathology will continue her Keppra with transient and follow her in the office as an outpatient . Review of Systems Review of Systems: All systems reviewed & are unremarkable except as noted in HPI and below Exam Narrative: Exam Narrative: on examination today she is awake alert cooperative in no obvious acute distress, his speech is stuttering along with the excessive facial expression when she tries to communicate head normocephalic with no cranial bruit, ear nose throat examination normal, neck supple with no cervical bruit no thyromegaly no lymphadenopathy, heart regular with no murmur lungs clear to auscultation, abdomen soft nontender normal bowel sounds, neurological is she is awake alert receptive and communicative with stuttering speech and follows all the instruction appropriately and in fact discussed intelligently though still with is stuttering speech speech, the cranial examination is normal motor examination revealed her to have normal strength and tone reflexes symmetrical plantars are downgoing there is no evidence of gross sensory or cerebellar deficit Objective Data Vital Signs Vital Signs: Vital Signs - 24 hr 11/21/20 14:00 11/21/20 16:00 11/21/20 20:00 Temperature 36.3 C L Pulse Rate 110 H 102 H 103 H Respiratory Rate 24 H Blood Pressure 133/82 Pulse Oximetry 100 95 11/21/20 22:00 11/22/20 00:00 11/22/20 04:00 Temperature 35.8 C L Pulse Rate 103 H 106 H 93 Respiratory Rate 18 Blood Pressure 141/73 H Pulse Oximetry 99 11/22/20 06:00 11/22/20 08:00 Temperature 36.1 C L 36.4 C L Pulse Rate 101 H 82 Respiratory Rate 18 18 Blood Pressure 136/85 119/84 Pulse Oximetry 100 100 Intake/Output Intake/Output: Intake & Output 11/19/20 11/20/20 11/21/20 11/22/20 23:59 23:59 23:59 23:59 Intake Total 1780 2300 1995.0 1047.5 Output Total 1850 1300 1300 1000 Balance -70 1000 695.0 47.5 Meds/Results Medications: Active Medications Generic Name Dose Route Start Last Admin Trade Name Freq PRN Reason Stop Dose Admin Acetaminophen 650 mg 11/18/20 20:30 11/19/20 14:42 Acetaminophen 325 Mg Tablet PO 650 mg Q4H PRN Administration Mild Pain (1-3) or Fever Hydrocodone Bitart/Acetaminophen 1 tab 11/18/20 20:30 11/22/20 09:41 Hydrocodone/Acetaminophen (*Crx) 5-325 Mg Tablet PO 1 tab Q4H PRN Administration Pain Rated 4-6 Aspirin 81 mg 11/19/20 08:00 11/22/20 09:29 Aspirin 81 Mg Chewable Tablet PO 81 mg DAILY@0800 LEATHA Administration Clorazepate Dipotassium 7.5 mg 11/22/20 14:00 Clorazepate Dipotassium (*Crx) 7.5 Mg Tablet PO Q8HR [facility] Dextrose 12.5 gm 11/18/20 22:58 Dextrose 50% 25 Gm/50 Ml Syringe IV PUSH PRN PRN Hypoglycemia Protocol Diazepam 5 mg 11/20/20 03:47 11/20/20 05:09 Diazepam Inj (*Crx) 10 Mg/2 Ml Syringe IM 5 mg ONCE PRN Administration Seizures Glimepiride 2 mg 11/19/20 08:00 11/22/20 09:28 Glimepiride 2 Mg Tabl
[2020-11-22] MEDS: CLORAZEPATE DIPOTASSIUM (*CRX) 7.5 MG TABLET PO ×2 (14:18→20:01)
--- NOTE | 2020-11-22 16:35 | PM.IMPN ---
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 Status: Acute Assessment and Plan: Her symptoms seem more psychological and physiological EEG results were discussed with neurology and they were totally normal MRI of brain on 11/21 was unremarkable In 10/2020 CT and CTA of brain and neck were unremarkable MRI of thoracic spine and cervical spine were unremarkable Lumbar puncture in 04/2020, including testing for Lyme disease and syphilis, was unremarkable This is not a seizure disorder Movement disorder was considered but seems unlikely given the abrupt cessation of movements when she is not being directly observed This does not seem to be related to her history of intracranial hypertension or to her history of migraine I contacted [facility] today and they were willing to accept her as a patient pending patient interview showed a bed opened up. Did not have a bed available today. (2) Anxiety: Code(s): F41.9 - Anxiety disorder, unspecified Status: Acute Assessment and Plan: Continue home sertraline (3) Hypertension: Code(s): I10 - Essential (primary) hypertension Status: Chronic Assessment and Plan: Chronic and stable (4) Diabetes mellitus: Qualifiers: Diabetes mellitus complication status: without complication Diabetes mellitus terminal manager insulin use: without [facility] use Diabetes mellitus type: type 2 Qualified Code(s): E11.9 - Type 2 diabetes mellitus without complications Code(s): E11.9 - Type 2 diabetes mellitus without complications Status: Chronic Assessment and Plan: Chronic and stable Recent A1c had improved to 7.1 Given habitus and abdominal striae, obtain HS salivary cortisol Subjective Date/time seen: 11/22/20 16:35 Interval history: 35 year old female medical history severe anxiety and panic attacks, hypertension, insulin-dependent type 2 diabetes, dyslipidemia, pseudotumor cerebri, empty sella syndrome, fibromyalgia presented to the ED 11/18 with complaints of seizure activity. Fam Hx: Seizures in mother, cataplexy and narcolepsy in sister Episode began with episode of shaking all 4 limbs and peeing on herself at home. Since then she has had intermittent movements of her maldonado's and head and severe stuttering. She does not pass out during ever episodes. Either her left side or her right side is difficult to move after each spell. She does get some facial numbness with the spells. Also has headaches but not her usual migraines. States the abnormal movements or so bad this sometime she has difficulty getting food to her mouth. However she has not lost weight. Denied chest pain or shortness of breath bowel or bladder dysfunction double vision abnormal bleeding fevers or chills. Does get sweats during the episodes. States she is unable to care for herself but has parents coming to visit her on 11/24 and states they will be willing to stay with her and care for her. She does not wish to go to a care center for rehab. Review of Systems Review of Systems: All systems reviewed & are unremarkable except as noted in HPI and below Exam Narrative: Exam Narrative: HEENT: EOMI, PERRL, sclerae nonicteric, pharyngeal mucosa pink and intact NECK: No JVD, adenopathy, or thyromegaly CHEST: Clear to auscultation. Normal effort. HEART: NL S1/S2, regular, no murmur ABDOMEN: BS+, soft, nontender, no mass, no bruits EXTREMITIES: No cyanosis, edema, or clubbing NEUROLOGIC: CN intact and symmetric to inspection. Deep tendon reflexes intact in the biceps triceps knees and ankles. Babinski reflex negative bilaterally. MUSCULOSKELETAL: Tone and strength symmetric. Intermittent slow and fast movements of the extremities and head PSYCH: Alert. Oriented to person, place, and time. Affect somewhat exaggerated with mood anxious. Patient was observed on television
[2020-11-22] MEDS: INSULIN ASPART (*BKC) 100 UNITS/ML SUB-Q (17:35)
[2020-11-22 17:38] LABS: Glucose Point of Care 254 (65-105)
--- NOTE | 2020-11-22 19:30 | PC.NURSE ---
Addendum entered by Taryn Lim RN 11/23/20 02:31: Total of 1 hour ([id number]) spent with patient. Original Note: Called to patient's room as patient was complaining of pain. Brought patient's PRN Holt. Patient was crying hysterically stating that her right flank was a 10/10 stabbing pain. Patient stated that she has a history of stage 2 chronic kidney disease and wanted to know if any of the medications she was given were hard on her kidneys. This nurse told the patient this was the first time of hearing of any flank pain and I am unsure of the kidney involvement without research but that the patient's morning kidney labs looked good. Patient continued to be hysterical yelling, cursing, and calling this nurse a bitch and accusing this nurse of not caring. Continued to offer the patient the pain med that was already prescribed. Patient requested to speak to a doctor. I stepped out of the room to call Hilda Barahona NP. Hilda stated that she needed time to review the chart but would call back with further recommendations. Returned to the patient's room with Yrn Thompson CNA to reposition patient. Hilda LOBO called into patient room. Assisted patient with phone call. Hilda to place orders for Levsin IM. Administered Holt and Levsin. Patient less distressed. Educated it should take 20-30 minutes for the IM injection to work. Call light and personal belongings within reach. Seizure pads up x4, bed rails up x4. Bed alarm on.
--- NOTE | 2020-11-22 20:22 | PM.EVENT ---
Event Note Event Note Event Note: The patient was complaining of a right kidney pain. She believes that she may have a urinary tract infection. I did order a UA with reflux and culture. I also ordered Levsin IM as well. The patient stated that she felt that be difficult for her to swallow the pain pill. Patient stated she does not want any muscle relaxers are benzos.
[2020-11-22] MEDS: HYOSCYAMINE SULFATE 0.5 MG/ML AMPUL 0.25 MG IM (20:30)
--- NOTE | 2020-11-22 22:04 | PC.NURSE ---
At pt bedside getting POC glucose and administering insulin. Patient pleasant with minimal stuttering or abnormal movements. Is still distressed about being given Keppra which the patient believes has caused kidney problems due to her new right flank pain. States the IM Levsin and Mercer has helped her pain and is currently rating a 7/10 which patient states is tolerable. Provided patient with mouth swabs and mouthwash due to patient complaining of dry mouth. Patient talking on the phone with her father. Call light and personal belongings within reach. Bed low and locked. Seizure pads in place x4. Bed alarm on.
[2020-11-22 23:08] LABS: Glucose Point of Care 292 (65-105)
--- NOTE | 2020-11-22 23:25 | PC.NURSE ---
Bed alarm sounding. Responded to patient's room and found her to be having contorted, uncontrollable movements that appear similar to stretching. Ask patient if she is hurting to which she nods. Reposition pt to take pain medication. Uncontrolled movements decreasing. Patient appears to be drifting to sleep. HR, SpO2 stable per telemetry. Respirations even and unlabored. Call light and personal belongings within reach. Seizure pads in place x4. Bed alarm on.
--- NOTE | 2020-11-22 23:56 | PC.NURSE ---
Spoke with Blank in Lab about supplies needed for saliva cortisol swab. Testing material will have to be ordered as we do not stock the swab needed. Will notify hospitalist in AM.
[2020-11-23] VITALS (8 sets, daily range): BP systolic 143–149; BP diastolic 81–83; PULSE 72–125; RESP 20–22; TEMP 36.2–36.4; O2SAT 99–100
--- NOTE | 2020-11-23 00:26 | PC.NURSE ---
Reassess pain medication. Patient appears sleeping and in no acute distress. Bed alarm on. Seizure pads in place x4. Call light and personal belongings within reach.
--- NOTE | 2020-11-23 01:20 | PC.NURSE ---
While monitoring on closed camera system, patient is noted to have spastic movements of all extremities. Respond to bedside. Patient is blowing and pursing her lips. Ask patient if she is in pain and she shakes her head no. Does not appear to be tonic-clonic movements. Provide reassurance to patient and golf coach through relaxation and deep breathing exercises. Movements begin to slow and patient appears to be going to sleep. HR and SpO2 stable per telemetry. Respirations even and non-labored. Bed alarm on. Call light and personal belongings within reach. Seizure pads x4.
--- NOTE | 2020-11-23 01:40 | PC.NURSE ---
Patient appears to be sleeping. Respirations even and unlabored. No acute distress. call light and belongings in reach. bed alarm on. Seizure pads on x4.
--- NOTE | 2020-11-23 05:00 | PC.NURSE ---
Patient woke up and is having spastic movements of all extremities. Blowing and pursing her lips. Nods yes to flank pain. Gave Miller PRN and scheduled medications. Stayed with patient until movements had decreased. Coached patient through deep breathing and relaxation techniques. Repositioned for comfort. personal belongings and call light within reach. Alarm on. Seizure pads up x4.
[2020-11-23] MEDS: HYDROcodone/acetaminophen (*CRX) 5-325 MG TABLET 1 TAB PO ×5 (05:36→22:57)
[2020-11-23] MEDS: CLORAZEPATE DIPOTASSIUM (*CRX) 7.5 MG TABLET PO ×3 (05:52→22:56)
--- NOTE | 2020-11-23 06:00 | PC.NURSE ---
Patient called and requested assistance to bathroom. Juanita AMAYA assisted patient to [facility] with gaitbelt and walker. Nonskid socks on. Juanita stayed with patient until 629 when Juanita was relieved by Yrn AMAYA. Patient complaining of shy bladder and feelings of fullness but being unable to void. Turned on sink and had patient reposition with no relief. Yrn stayed with patient until 714 when this nurse took over with patient. Had patient stand to see how much had voided to see she had voided 800ml. Patient continues to feel that she needs to void. Patient agreeable to bladder scan. Assisted patient back to bed with alarm on. Bladder scan showed <100mls. Informed Kalpesh DYE during report.
[2020-11-23 08:18] LABS: Glucose Point of Care 125 (65-105)
[2020-11-23] MEDS: GLIMEPIRIDE 2 MG TABLET PO ×2 (08:50→17:47)
[2020-11-23] MEDS: ASPIRIN 81 MG CHEWABLE TABLET PO (08:50)
[2020-11-23] MEDS: hydroCHLOROthiazide 12.5 MG CAPSULE PO (08:51)
[2020-11-23] MEDS: LOSARTAN POTASSIUM 100 MG TABLET PO (08:51)
[2020-11-23] MEDS: SERTRALINE HCL 50 MG TABLET 100 MG PO (08:51)
[2020-11-23] MEDS: ROSUVASTATIN 10 MG TABLET PO (08:51)
[2020-11-23 08:53] LABS: Add Urine Microscopic? YES; Appearance Urine Clear (Clear); Bacteria Urine Trace /hpf; Bilirubin Urine Negative (Negative); Blood Urine 2+ (Negative); Color Urine Yellow (Yellow); Glucose Urine UA 3+ mg/dL (Negative); Ketones Urine Negative (Negative); Leukocyte Esterase Ur Negative LEU/UL (Negative); Mucus Urine Rare /lpf; Nitrate Urine Negative (Negative); Protein Urine 2+ mg/dL (Negative); RBC Urine 0-2 /hpf (0-2); Specific Grav Ur 1.025 (1.001-1.035); Squamous Epithelial Cell Urine Many /hpf (Few); Urobilinogen Urine Negative mg/dL (<2.0)
[2020-11-23 12:34] LABS: Glucose Point of Care 141 (65-105)
[2020-11-23] MEDS: levETIRAcetam IV 750 MG in DEXTROSE 5% 100 ML 430 MG IVPB (13:58)
--- NOTE | 2020-11-23 14:00 | PC.NURSE ---
Approximately 1400 on 11/23 this nurse heard patient yelling in room, upon entering room patient was talking loudly to father on phone, stating nurse told her doctor would not see her today, when nurse corrected patient she stuck left arm out to left side toward nurse, nurse reached up and prevented patient from swing arm by touching hand on left arm, patient pulled arm back away, continues to tell father that nurse told her MD would not see here today. Nurse attempted to correct her and tell her she was told MD had not made rounds at this time and would discuss lab work with her when she came on rounds. patient continues to talk loudly to father on phone stating she was told she could not take shower, informed patient due to narcotics, seizures and her inability to ambulate well she was not a candidate to be taken to shower and that tech would assist her in a bed side bath.
--- NOTE | 2020-11-23 14:16 | PM.IMPN ---
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 Status: Acute Assessment and Plan: Her symptoms seem more psychological and physiological EEG results were discussed with neurology and they were totally normal MRI of brain on 11/21 was unremarkable In 10/2020 CT and CTA of brain and neck were unremarkable MRI of thoracic spine and cervical spine were unremarkable Lumbar puncture in 04/2020, including testing for Lyme disease and syphilis, was unremarkable This is not a seizure disorder Movement disorder was considered but seems unlikely given the abrupt cessation of movements when she is not being directly observed This does not seem to be related to her history of intracranial hypertension or to her history of migraine Previous hospitalist has discussed with [facility] awaiting bed. We are watching pt continuos on monitor (2) Anxiety: Code(s): F41.9 - Anxiety disorder, unspecified Status: Acute Assessment and Plan: Continue home sertraline (3) Hypertension: Code(s): I10 - Essential (primary) hypertension Status: Chronic Assessment and Plan: Chronic and stable (4) Diabetes mellitus: Qualifiers: Diabetes mellitus type: type 2 Diabetes mellitus assisted insulin use: without rodent exterminator use Diabetes mellitus complication status: without complication Qualified Code(s): E11.9 - Type 2 diabetes mellitus without complications Code(s): E11.9 - Type 2 diabetes mellitus without complications Status: Chronic Assessment and Plan: Chronic and stable Recent A1c had improved to 7.1 Subjective Date/time seen: 11/23/20 14:16 Interval history: 35 year old female medical history severe anxiety and panic attacks, hypertension, insulin-dependent type 2 diabetes, dyslipidemia, pseudotumor cerebri, empty sella syndrome, fibromyalgia presented to the ED 11/18 with complaints of seizure activity. Pt is sleeping well in bed. pt sp EEG and MRI brain and LP in the past. 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 Review of Systems Review of Systems: All systems reviewed & are unremarkable except as noted in HPI and below Exam Narrative: Exam Narrative: Pt sound a sleep in bed, pt is under continuous video monitoring on television monitor. HEART: NL S1/S2, regular, no murmur ABDOMEN: BS+, soft, nontender, no mass, no bruits EXTREMITIES: No cyanosis, edema, or clubbing NEUROLOGIC: CN intact and symmetric to inspection. Deep tendon reflexes intact in the biceps triceps knees and ankles. Babinski reflex negative bilaterally. MUSCULOSKELETAL: Tone and strength symmetric. Intermittent slow and fast movements of the extremities and head PSYCH: Alert. Oriented to person, place, and time. Affect somewhat exaggerated with mood anxious. Objective Data Vital Signs Vital Signs: Vital Signs - 24 hr 11/22/20 16:00 11/22/20 20:00 11/22/20 22:00 Temperature 36.8 C Pulse Rate 106 H 128 H 113 H Respiratory Rate 20 Blood Pressure 142/79 H Pulse Oximetry 100 11/23/20 00:00 11/23/20 04:00 11/23/20 06:00 Temperature 36.3 C L Pulse Rate 98 72 111 H Respiratory Rate 22 H Blood Pressure 149/81 H Pulse Oximetry 100 11/23/20 08:00 11/23/20 12:00 Temperature Pulse Rate 101 H 96 Respiratory Rate Blood Pressure Pulse Oximetry Intake/Output Intake/Output: Intake & Output 11/20/20 11/21/20 11/22/20 11/23/20 23:59 23:59 23:59 23:59 Intake Total 2300 1995.0 2085.0 1500 Output Total 1300 1300 2200 800 Balance 1000 695.0 -115.0 700 Meds/Results Medications: Active Medications Generic Name Dose Route Start Last Admin Trade Name Freq PRN Reason Stop Dose Admin Acetaminophen 650 mg 11/18/20 20:30 11/19/20 14:42 Acetaminophen 325 Mg Tablet PO 650 mg Q4H PRN Administration Mild Pain (1-3) or Feve
--- NOTE | 2020-11-23 14:20 | PC.NURSE ---
Spoke w/father (Yariel) on phone after incident in room w/patient. His main concern was her getting cleaned up, I explained to him reasons patient could not be taken to shower but as we were talking the tech was in the room assisting patient w/her personal hygiene. He states he is driving in from [place] to see patient, took his phone number and told father I would have Dr. Delgado give him a call and update on patient's condition. He was thankful and pleasant. Dr Delgado was notified and given father's phone number.
[2020-11-23 17:47] LABS: Glucose Point of Care 259 (65-105)
[2020-11-23] MEDS: INSULIN ASPART (*BKC) 100 UNITS/ML SUB-Q (17:47)
--- NOTE | 2020-11-23 20:58 | PHAR ---
MAHENDRA (INSULIN DEGLUDEC) INSULIN FLEX TOUCH PEN 200 UNITS/ML HOME MED VERIFIED BY PHARMACY
[2020-11-23 23:17] LABS: Glucose Point of Care 222 (65-105)
[2020-11-24 06:00] VITALS: BP 127/79; PULSE 90; RESP 20; TEMP 36.5; O2SAT 98
[2020-11-24] MEDS: HYDROcodone/acetaminophen (*CRX) 5-325 MG TABLET 1 TAB PO ×3 (07:05→20:58)
[2020-11-24] MEDS: CLORAZEPATE DIPOTASSIUM (*CRX) 7.5 MG TABLET PO ×3 (07:08→21:00)
[2020-11-24] MEDS: ASPIRIN 81 MG CHEWABLE TABLET PO ×2 (07:51→08:18)
[2020-11-24] MEDS: GLIMEPIRIDE 2 MG TABLET PO ×2 (07:52→18:06)
[2020-11-24 08:00] VITALS: PULSE 80; RESP 20; O2SAT 97
[2020-11-24] MEDS: ROSUVASTATIN 10 MG TABLET PO (08:18)
[2020-11-24] MEDS: SERTRALINE HCL 50 MG TABLET 100 MG PO (08:18)
[2020-11-24] MEDS: hydroCHLOROthiazide 12.5 MG CAPSULE PO (08:19)
[2020-11-24] MEDS: LOSARTAN POTASSIUM 100 MG TABLET PO (08:19)
[2020-11-24 09:26] LABS: Glucose Point of Care 98 (65-105)
--- NOTE | 2020-11-24 13:52 | PM.IMPN ---
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 Status: Acute Assessment and Plan: Her symptoms seem more psychological and physiological EEG results were discussed with neurology and they were totally normal MRI of brain on 11/21 was unremarkable In 10/2020 CT and CTA of brain and neck were unremarkable MRI of thoracic spine and cervical spine were unremarkable Lumbar puncture in 04/2020, including testing for Lyme disease and syphilis, was unremarkable This is not a seizure disorder Movement disorder was considered but seems unlikely given the abrupt cessation of movements when she is not being directly observed This does not seem to be related to her history of intracranial hypertension or to her history of migraine Previous hospitalist has discussed with [facility] awaiting bed. We are watching on monitor Pt will need covid test and CRISIS evaluation for [facility] to accept Continue iv keppra until behavioural unit accepts as per Dr Jimenez (2) Anxiety: Code(s): F41.9 - Anxiety disorder, unspecified Status: Acute Assessment and Plan: Continue home sertraline (3) Hypertension: Code(s): I10 - Essential (primary) hypertension Status: Chronic Assessment and Plan: Chronic and stable (4) Diabetes mellitus: Qualifiers: Diabetes mellitus type: type 2 Diabetes mellitus termite control servicer insulin use: without correction use Diabetes mellitus complication status: without complication Qualified Code(s): E11.9 - Type 2 diabetes mellitus without complications Code(s): E11.9 - Type 2 diabetes mellitus without complications Status: Chronic Assessment and Plan: Chronic and stable Recent A1c had improved to 7.1 Subjective Date/time seen: 11/24/20 13:52 Interval history: 35 year old female medical history severe anxiety and panic attacks, hypertension, insulin-dependent type 2 diabetes, dyslipidemia, pseudotumor cerebri, empty sella syndrome, fibromyalgia presented to the ED 11/18 with complaints of seizure activity. Pt sp EEG and MRI brain and LP which have been negative. Pt benefits from transfer to behavioral unit. COVID test ordered. Crisis evaluation awaiting. No bed available in [facility], must call daily to check bed availability. Review of Systems Review of Systems: All systems reviewed & are unremarkable except as noted in HPI and below Exam Narrative: Exam Narrative: Pt still having involuntary movements in bed with tongue and arm, stuttering HEART: NL S1/S2, regular, no murmur ABDOMEN: BS+, soft, nontender, no mass, no bruits EXTREMITIES: No cyanosis, edema, or clubbing NEUROLOGIC: CN intact and symmetric to inspection. no focal deficits MUSCULOSKELETAL: Tone and strength symmetric. Intermittent slow and fast movements of the arms and tongue PSYCH: Alert. Oriented to person, place, and time. Preoccupied with her medical condition, anxious. Objective Data Vital Signs Vital Signs: Vital Signs - 24 hr 11/23/20 14:00 11/23/20 16:15 11/23/20 22:00 Temperature 36.4 C L 36.2 C L Pulse Rate 125 H 119 H 102 H Respiratory Rate 20 20 Blood Pressure 143/83 H Pulse Oximetry 100 99 11/24/20 06:00 Temperature 36.5 C Pulse Rate 90 Respiratory Rate 20 Blood Pressure 127/79 Pulse Oximetry 98 Intake/Output Intake/Output: Intake & Output 11/21/20 11/22/20 11/23/20 11/24/20 23:59 23:59 23:59 23:59 Intake Total 1995.0 2085.0 2457.5 320 Output Total 1300 2200 800 300 Balance 695.0 -115.0 1657.5 20 Meds/Results Medications: Active Medications Generic Name Dose Route Start Last Admin Trade Name Freq PRN Reason Stop Dose Admin Acetaminophen 650 mg 11/18/20 20:30 11/19/20 14:42 Acetaminophen 325 Mg Tablet PO 650 mg Q4H PRN Administration Mild Pain (1-3) or Fever Hydrocodone Bitart/Acetaminophen 1 t
[2020-11-24 14:00] VITALS: BP 118/67; PULSE 106; RESP 18; TEMP 36.7; O2SAT 99
[2020-11-24] MEDS: levETIRAcetam IV 750 MG in DEXTROSE 5% 100 ML 430 MG IVPB (14:06)
[2020-11-24 14:24] LABS: Glucose Point of Care 191 (65-105)
[2020-11-24 17:38] LABS: Glucose Point of Care 235 (65-105)
[2020-11-24] MEDS: INSULIN ASPART (*BKC) 100 UNITS/ML SUB-Q (17:47)
[2020-11-24 18:22] VITALS: BP 108/61; PULSE 80; RESP 20; TEMP 36.5; O2SAT 97
--- NOTE | 2020-11-24 20:12 | PC.NURSE ---
Addendum entered by Barber Sheehan RN 11/24/20 20:19: Pt also told me at the beginning of the 11/23-11/24 shift that during her seizures that she can see people, hear things, and even knows what time it is but she is just unable to respond to us. Original Note: Pt refused keppra 11/24/2020 0200 due to her chronic kidney disease. Pt had witnessed seizures from 0290-4622, 1475-2815, 2889-8451. 8939-4125. Pt presented with rigid muscle movements, clenched fists, eyes open and focusing, intermittent verbal noises. Pt post tictal speech after the last episode noted to have stutters.
[2020-11-24 22:00] VITALS: BP 142/82; PULSE 92; RESP 20; TEMP 36.9; O2SAT 100
[2020-11-24 22:00] LABS: Glucose Point of Care 343 (65-105)
[2020-11-25] MEDS: levETIRAcetam IV 750 MG in DEXTROSE 5% 100 ML 430 MG IVPB (03:43)
[2020-11-25] MEDS: HYDROcodone/acetaminophen (*CRX) 5-325 MG TABLET 1 TAB PO ×2 (03:48→08:07)
[2020-11-25 06:00] VITALS: BP 127/77; PULSE 88; RESP 20; TEMP 36.6; O2SAT 98
[2020-11-25] MEDS: CLORAZEPATE DIPOTASSIUM (*CRX) 7.5 MG TABLET PO (06:51)
[2020-11-25 07:03] LABS: Anion Gap 4 mmol/L (8-16); Blood Urea Nitrogen 18 mg/dL (7-17); Calcium 9.1 mg/dL (8.4-10.2); Carbon Dioxide 32 mmol/L (22-30); Chloride 103 mmol/L (98-107); Estimated CRCL calculation 109 ml/min; Estimated Glomerular Filt Rate > 60; Glucose 84 mg/dL (65-105); Sodium 139 mmol/L (137-145)
[2020-11-25 07:14] LABS: Hematocrit 30.9 % (37.0-47.0); Hemoglobin 9.9 g/dL (12.0-15.0); Mean Corpuscular Hemoglobin 27.4 pg (26-34); Mean Corpuscular Volume 85.6 fl (80-100); Mean Platelet Volume 8.5 fl (7.4-10.4); Platelet Count Result 267 k/mm3 (150-375); Red Blood Count 3.61 M/mm3 (4.2-5.4); Red Cell Distribution Width 13.3 % (11.5-14.5)
--- NOTE | 2020-11-25 07:28 | PC.NURSE ---
Pt slept well all night with zero seizure episodes. When I woke her to give her the 0600 medication, she stated she felt like something was wrong. When I asked what was wrong, she stated she had some numbness in her hands, her head hurt, and that she felt drunk. Pt had received a norco at 0418. Let her know that we would reevaluate how she felt shortly. Returned to check on pt and she was sleeping. Called Dr. Delgado and left a voice mail about pt condition and advised her that Blossom would be her nurse today. Advised Blossom of pt condition.
[2020-11-25] MEDS: ROSUVASTATIN 10 MG TABLET PO (07:59)
[2020-11-25] MEDS: SERTRALINE HCL 50 MG TABLET 100 MG PO (07:59)
[2020-11-25 08:00] VITALS: PULSE 98
[2020-11-25] MEDS: LOSARTAN POTASSIUM 100 MG TABLET PO (08:00)
[2020-11-25] MEDS: hydroCHLOROthiazide 12.5 MG CAPSULE PO (08:00)
[2020-11-25 08:33] LABS: Glucose Point of Care 88 (65-105)
[2020-11-25 08:52] LABS: Glucose Point of Care 68 (65-105)
[2020-11-25] MEDS: GLIMEPIRIDE 2 MG TABLET PO (10:09)
--- NOTE | 2020-11-25 11:58 | PM.DS ---
DS: Admitting Diagnosis Admitting Diagnosis Admitting Diagnosis: SEizures ? 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 Status: Acute Assessment and Plan: Her symptoms seem more psychological and physiological EEG results were discussed with neurology and they were totally normal MRI of brain on 11/21 was unremarkable In 10/2020 CT and CTA of brain and neck were unremarkable MRI of thoracic spine and cervical spine were unremarkable Lumbar puncture in 04/2020, including testing for Lyme disease and syphilis, was unremarkable This is not a seizure disorder Movement disorder was considered but seems unlikely given the abrupt cessation of movements when she is not being directly observed Pt has been seizure free for 24 hours, pt is stable for discharge, pt to contact movement disorder clinic in [facility] for further investigation ? NERVE CONDUCTION STUDIES, MUSCLE BIOPSY ETC. (2) Anxiety: Code(s): F41.9 - Anxiety disorder, unspecified Status: Acute Assessment and Plan: Continue home sertraline (3) Hypertension: Code(s): I10 - Essential (primary) hypertension Status: Chronic Assessment and Plan: Chronic and stable (4) Diabetes mellitus: Qualifiers: Diabetes mellitus type: type 2 Diabetes mellitus intermission coordinator insulin use: without intermission coordinator use Diabetes mellitus complication status: without complication Qualified Code(s): E11.9 - Type 2 diabetes mellitus without complications Code(s): E11.9 - Type 2 diabetes mellitus without complications Status: Chronic Assessment and Plan: Chronic and stable Recent A1c had improved to 7.1 DS: Summary Hospital Course Hospital Course: 35 year old female medical history severe anxiety and panic attacks, hypertension, insulin-dependent type 2 diabetes, dyslipidemia, pseudotumor cerebri, empty sella syndrome, fibromyalgia presented to the ED 11/18 with complaints of seizure activity. Pt sp EEG and MRI brain and LP which have been negative. Pt does not want to go to behavioral unit. Pt prefers to go home. with outpatient follow with Dr Jimenez and I have strongly advised her to go to involuntary movement disorder clinic as new patient in [facility]. Pt complains of flank pain on her right side pt had UA and KUB prior to discharge. Looks like a trigger point muscular pain lidoderm patch given to patient on discharge to use on her right lower back. Pts UA shows protein and glucose advised her to keep a careful eye on her sugars diabetes. Pt complains of some headache and numbness in her arms ? anxiety or difficult night of sleep. Pt will need sleep study set up on discharge. Time Spent with Patient Time attestation: Total time spent providing and/or coordinating discharge services:40 minutes on day of discharge Exam Narrative: Exam Narrative: Pt still having involuntary movements in bed with tongue and arm, stuttering HEART: NL S1/S2, regular, no murmur ABDOMEN: BS+, soft, nontender, no mass, no bruits EXTREMITIES: No cyanosis, edema, or clubbing NEUROLOGIC: CN intact and symmetric to inspection. no focal deficits MUSCULOSKELETAL: Tone and strength symmetric. Intermittent slow and fast movements of the arms and tongue PSYCH: Alert. Oriented to person, place, and time. Preoccupied with her medical condition, anxious. DS: Data Data Completed and Pending Labs on day of discharge: Labs from last 24 hours 11/25/20 11/25/20 11/25/20 08:24 08:02 06:13 WBC RBC Hgb Hct MCV MCH MCHC RDW Plt Count MPV Sodium 139 Potassium 4.0 Chloride 103 Carbon Dioxide 32 H Anion Gap 4 L BUN 18 H Creatinine 0.70 Estim Creat Clear Calc 109 Estimated GFR > 60 Glucose 84 POC Capillary Glucose 88 68 Calcium 9.1 11/25/20 11/24/20 11/24/20 06:13 21:05 1
[2020-11-25 12:28] LABS: Glucose Point of Care 182 (65-105)
== END 2020-11-25 14:10 | disposition home or self-care (01) | DRG 880 ==
LOC: ANHED 20:39 → ANH3MEDSUR 21:13
PROVIDERS: Nurse Practitioner; Admitting Provider Student in an Organized Health Care Education/Training Program; Emergency Provider Emergency Medicine; PCP Nurse Practitioner; Visit Provider Family Medicine
DX: F44.5 Conversion disorder with seizures or convulsions (principal); E11.9 Type 2 diabetes mellitus without complications; I10 Essential (primary) hypertension; E78.5 Hyperlipidemia, unspecified; E55.9 Vitamin D deficiency, unspecified; M79.7 Fibromyalgia; G93.2 Benign intracranial hypertension; F80.81 Childhood onset fluency disorder; G43.909 Migraine, unspecified, not intractable, without status migrainosus; R10.9 Unspecified abdominal pain; Z28.21 Immunization not carried out because of patient refusal; Z79.4 Long term (current) use of insulin; Z79.82 Long term (current) use of aspirin; Z79.899 Other long term (current) drug therapy; Z87.891 Personal history of nicotine dependence
CPT/HCPCS: 36415; 70553; 74018; 80048; 81001; 82550; 83036; 84484; 85025; 85027; 87077; 87086; 87088; 95816; 96361; 96365; 96366; 96372; 96374; 96375; 97110; 97162; 97165; 97530; 99285; A9270; A9577; G0378; J1815; J1953; J1980; J2060; J2270; J3360; J7030

== ENCOUNTER 2022-03-14 07:14 | Outpatient (CLI) | payer BC, SELFPAY ==
--- NOTE | ~2022-03-14 | XR_ITS ---
EXAMINATION: XR knee RT 3V DATE: 03/14/2022 08:41 INDICATION: Other specified abnormal immunological findings. TECHNIQUE: 3 views of right knee including standing views were obtained. COMPARISON: None. FINDINGS: Bone alignment is normal. No fracture. There is mild osteoarthritis of patellofemoral good rtment characterized by tiny osteophytes. No knee joint effusion. IMPRESSION: 1. Mild right knee osteoarthritis. Reviewed, dictated and finalized at location A.
--- NOTE | ~2022-03-14 | XR_ITS ---
EXAMINATION: HAND-JORDYN ARTHRITIS 3+VIEWS DATE: 03/14/2022 08:41 INDICATION: Other specified abnormal immunological findings TECHNIQUE: Posteroanterior, lateral, and oblique views of the left and of the right hands as well as a ballcatchers view of both hands were obtained. COMPARISON: None. FINDINGS: Bone alignment is normal. Old healed fracture of the left fifth metacarpal diaphysis. No acute fractu re. Joint spaces are normal. No erosions to suggest an inflammatory arthritis. Soft tissues are unrem arkable. IMPRESSION: 1. Old healed left fifth metacarpal fracture. Otherwise normal bilateral hand radiographs with no tony dent arthritis. Reviewed, dictated and finalized at location B. IMPRESSION: 1. Old healed left fifth metacarpal fracture. Otherwise normal bilateral hand r adiographs with no evident arthritis.
--- NOTE | ~2022-03-14 | XR_ITS ---
EXAMINATION: XR knee LT 3V DATE: 03/14/2022 08:41 INDICATION: Other specified abnormal immunological findings. TECHNIQUE: 3 views of left knee including standing views were obtained. COMPARISON: None. FINDINGS: Bone alignment is normal. No fracture. There is mild osteoarthritis of medial compartment c haracterized by a tiny marginal osteophyte. No joint space narrowing. No knee joint effusion. IMPRESSION: 1. Mild left knee osteoarthritis. Reviewed, dictated and finalized at location A.
== END 2022-03-14 07:15 ==
PROVIDERS: PCP Internal Medicine; Visit Provider Internal Medicine
DX: M19.90 Unspecified osteoarthritis, unspecified site (principal); M79.10 Myalgia, unspecified site; R76.8 Other specified abnormal immunological findings in serum; M17.0 Bilateral primary osteoarthritis of knee
CPT/HCPCS: 73130; 73562

== ENCOUNTER 2022-04-28 08:44 | Outpatient (CLI) | payer BC, SELFPAY ==
[2022-04-20 11:14] VITALS: BMI 34.3
--- NOTE | 2022-04-20 11:18 | PC.NURSE ---
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 Pt states, especially in stressful situations or certain lighting, she will have seizures where she is frozen for approx 30 seconds. During this time, she is aware of everything going on around her, but is unable to respond. Touching her causes the seizure to be worse. It can effect her speech afterwards as well. After the seizure is over, she will be able to say that she is OK.
--- NOTE | 2022-04-20 11:21 | PC.NURSE ---
Pre Radiology instructions Report to the Outpatient Waiting Room, entrance under the green pavilion located off [facility], at time 0830 on date 04/28/22. Procedure Time: 1030. One visitor will be allowed to accompany the patient into the hospital. The visitor will be instructed to remain with patient at all times or leave the building. We will allow the visitor to come back to the postoperative area when patient is ready. You and your visitor will be asked a series of questions to screen for COVID 19 for your protection. A mask is required within the hospital. Patients are to have no food or drink 6 hours prior to procedure time Driving will be restricted after the procedure, you must have a person to drive you home. Labs will be drawn in preop area and once reviewed, you will be taken to radiology area for procedure. When the procedure is completed, you will be taken to outpatient where you will be monitored for several hours. You may have one visitor in this area. Other than holding anti-coagulants, patient may take other medication(s) as scheduled. Prior to your appointment date patients are instructed to hold anti-coagulants after discussing with ordering provider to stop. If unable to discontinue anti-coagulants please notify radiologist. No aspirin or warfarin (Coumadin) for 7 days prior to the procedure. No clopidogrel (Plavix), ticagrelor (Brilinta), prasugrel (Effient) or dabigatran (Pradaxa) for 5 days prior to the procedure. No rivaroxaban (Xarelto), apixaban (Eliquis), dipyridamole (Aggrenox or Persantine) or cilostazol (Pletal) for 2 days prior to the procedure. Medications to discontinue per physician: ASPIRIN Date to take last dose: 04/20/22 Please leave all valuables, including medications, at home the day of procedure. The hospital will not accept responsibility for valuables. Wear comfortable, loose fitting clothing. Follow any additional instructions given to you from ordering provider. Telephone instructions given to MARTIN FIGUEROA and asked if any additional questions and then verbalized understanding. Patient advised to call scheduling provider office or registration scheduling [phone] if any additional questions.
[2022-04-28] VITALS (7 sets, daily range): BP systolic 125–160; BP diastolic 70–89; PULSE 79–96; RESP 14–18; TEMP 36.6; O2SAT 97–100
--- NOTE | ~2022-04-28 | XR_ITS ---
EXAMINATION: XR lumbar puncture diagnostic DATE: 04/28/2022 10:19 INDICATION: Benign intracranial hypertension. TECHNIQUE: The procedure including the risks, benefits, and alternatives was discussed with the patie nt. Risks discussed included spinal headache, cerebrospinal fluid leak, bleeding, and infection. The patient understood the risks and agreed to proceed. A timeout was performed to verify the patient' s name, date of , and procedure to be performed. The skin overlying the L3-L4 level was prepped and draped in usual sterile fashion. Subcutaneous 1% lidocaine was used for local anesthesia. A 20 gauge spinal needle was advanced under fluoroscopic guidance. The needle was removed and the entry s ite was cleaned and dressed. There were no immediate complications. Fluoroscopy exposure time was 0. 0 minutes. The total number of images was 2. FINDINGS: Real-time fluoroscopy demonstrates the needle at the L3-L4 level. The opening pressure was 24 cm water (Normal range is variably defined as 6-20 cm water and up to 25 cm water in obese patient s. Pressure >25 cm water is one of the modified Dandy criteria for idiopathic intracranial hypertensi on). 20 mL of clear, colorless fluid was collected in 4 tubes. IMPRESSION: 1. Successful fluoro-guided lumbar puncture. Reviewed, dictated and finalized at location A.
[2022-04-28 09:16] LABS: Mean Platelet Volume 8.7 fl (7.4-10.4); Platelet Count Result 360 k/mm3 (150-375)
[2022-04-28 09:29] LABS: INR 0.9; Prothrombin Time 11.9 Seconds (11.1-14.7)
[2022-04-28 11:02] LABS: Glucose CSF 80 mg/dL (40-70); Total Protein CSF 29 mg/dL (12-60)
--- NOTE | 2022-04-28 11:21 | SUR.PHASEII ---
1115 DR VALENZUELA AT BEDSIDE SPEAKING WITH & ASSESSING PT.
[2022-04-28 11:36] LABS: Glucose Point of Care 91 mg/dl (65-105)
[2022-04-28 12:15] LABS: Appearance CSF Clear (Clear); CSF source CSF; Color CSF Colorless (Colorless)
[2022-04-28 12:16] LABS: Nucleated Cell CSF 2 /uL (0-5); Red Blood Cell CSF 0 (0-2)
[2022-04-28 12:17] LABS: Lymphocytes CSF 100 % (40-80)
[2022-04-30 15:29] LABS: Cryptococcus Antigen Not Detected (Not Detected); Cryptococcus Specimen Source CSF
== END 2022-04-28 12:45 | disposition home or self-care (01) ==
PROVIDERS: PCP Internal Medicine; Visit Provider Radiology Diagnostic Radiology
DX: G93.2 Benign intracranial hypertension (principal)
CPT/HCPCS: 36415; 62328; 82945; 82948; 84157; 85049; 85610; 86403; 87070; 88108; 89051

== ENCOUNTER 2022-06-02 08:13 | Outpatient (CLI) | payer BC, SELFPAY ==
--- NOTE | 2022-06-10 14:41 | WPDPFTINT ---
PFT Procedure Performed PFT Procedure Performed Plethysmography (Lung Vol) Diffusing Cap (DLCO) Flow Vol Loop Spirometry w/o Bronchodil PFT Interpretation DOS:06/02/2022 REQUESTING: Dr Andrei Clark REASON FOR TESTING: dyspnea PULMONARY FUNCTION TESTS Results are reliable and reproducible. Spirometry: FEV1 is 2.54 L, 83% predicted, normal. FEV1 is 3.21 L, 86% predicted, normal. FEV1:FVC ratio is 79%, normal. FEF 25-75% was 79%, normal. No bronchodilator was administered. Lung volumes: Total lung capacity is 4.30 L, 85%, normal. Slow vital capacity is 86%, normal. Functional residual capacity is 66%, 1.86 L, normal. ERV is 60%, 0.7 L, below normal. Residual volume 69%, 1.09 L, normal. RV/TLC is 25%, normal, indicating no air trapping. Airway resistance normal 98%. Diffusion: DLCO Is 75% predicted, mildly decreased. DLCO/VA is 101%, normal. Flow volume loop: Normal. IMPRESSION: Normal spirometry, lung volumes, with minimal decrease in diffusion. Normal study. Tracey Pulido MD
== END 2022-06-02 08:14 | disposition home or self-care (01) ==
PROVIDERS: PCP Internal Medicine; Visit Provider Internal Medicine
DX: R06.00 Dyspnea, unspecified (principal)
CPT/HCPCS: 94375; 94726; 94729

== ENCOUNTER 2022-06-25 09:38 | Outpatient (CLI) | payer BC, SELFPAY ==
--- NOTE | ~2022-06-25 | XR_ITS ---
EXAM: XR lumbar spine 2-3V, XR sacroiliac joints min 3V DATE: 06/25/2022 10:16 HISTORY: R79.82 - Elevated C-reactive protein (CRP) . COMPARISON: None available. FINDINGS: 5 nonrib-bearing lumbar-type vertebral bodies. Hypoplastic ribs at T12 Pedicles intact. No rmal vertebral body alignment. Vertebral body heights preserved. Disc spaces maintained. Normal facet s and posterior elements. Normal SI joints. No fracture or dislocation. IMPRESSION: Unremarkable lumbar spine and sacroiliac joint radiograph findings. Reviewed, dictated and finalized at location K. IMPRESSION: Unremarkable lumbar spine and sacroiliac joint radiograph findings.
--- NOTE | ~2022-06-25 | XR_ITS ---
EXAM: XR cervical spine 4-5V DATE: 06/25/2022 10:16 HISTORY: R79.82 - Elevated C-reactive protein (CRP) . COMPARISON: None available. FINDINGS: Craniocervical association and atlantoaxial joint are normal. No prevertebral soft tissue swelling. Vertebral bodies are aligned. Vertebral body heights and disc spaces are maintained. Normal facets and posterior elements. IMPRESSION: Normal cervical spine radiograph findings. Reviewed, dictated and finalized at location K.
== END 2022-06-25 09:39 ==
PROVIDERS: PCP Internal Medicine; Visit Provider Internal Medicine
DX: R79.82 Elevated C-reactive protein (CRP) (principal); M19.90 Unspecified osteoarthritis, unspecified site
CPT/HCPCS: 72050; 72100; 72202

== ENCOUNTER 2022-06-28 11:12 | Emergency (ER) | payer BC, SELFPAY ==
[2022-06-28] VITALS (8 sets, daily range): BP systolic 123–161; BP diastolic 87–98; PULSE 85–104; RESP 15–22; TEMP 36.8; O2SAT 94–100
--- NOTE | ~2022-06-28 | CT_ITS ---
EXAMINATION: CT abdomen pelvis w con DATE: 06/28/2022 13:21 INDICATION: Left lower quadrant abdominal pain. Blood in stool. TECHNIQUE: Computed tomography (CT) of the abdomen and pelvis was performed with 100 mL Omnipaque 350 intravenous contrast. Automated exposure control and iterative reconstruction technique were employe d. The dose-length product was 1043.70 mGy-cm. COMPARISON: CT abdomen 07/27/2006 FINDINGS: The visualized portions of the lung bases are clear without pneumonia or pleural effusion. The heart size is normal. No pericardial effusion. There is a small sliding hiatal hernia. The liver and spleen are normal. There are changes of cholecystectomy. The pancreas and adrenal glands are norm al. There is cortical thinning of the kidneys. There are cysts in the kidneys measuring up to 2.1 cm on the left. There are small calcified fibroids in the uterus. There is 11.8 x 8.4 cm cystic mass wit h multiple thin septations in left ovary. There are no dilated loops of bowel. The appendix is normal . There are no pathologically enlarged lymph nodes. There is no free intraperitoneal fluid. There is mild lumbar spondylosis. IMPRESSION: 1. 11.8 cm cystic mass with multiple thin septations in left ovary, probably benign. Surgical evaluat ion is recommended. Reviewed, dictated and finalized at location A. IMPRESSION: 1. 11.8 cm cystic mass with multiple thin septations in left ovary, probably be nign. Surgical evaluation is recommended.
--- NOTE | 2022-06-28 11:41 | PC.NURSE ---
EDP at bedside to assess pt.
[2022-06-28 11:51] LABS: Basophils Absolute Auto 0.1 K/mm3 (0.0-0.1); Basophils Percent Auto 0.5 % (0.2-1.2); Eosinophils Absolute Auto 0.2 K/mm3 (0-0.3); Eosinophils Percent Auto 2.5 % (0-4.4); Hematocrit 38.7 % (37.0-47.0); Hemoglobin 11.5 g/dL (12.0-15.0); Immature Granulocyte Absolute 0.03 K/mm3 (0.00-0.031); Immature Granulocyte Percent A 0.3 % (0-0.5); Lymphocytes Absolute Auto 2.37 K/mm3 (0.9-3.2); Lymphocytes Percent Auto 24.7 % (18.3-44.2); Mean Corpuscular HGB Conc 29.7 g/dl (32-36); Mean Corpuscular Hemoglobin 24.8 pg (26-34); Mean Corpuscular Volume 83.6 fl (80-100); Mean Platelet Volume 8.7 fl (7.4-10.4); Monocytes Absolute Auto 0.4 K/mm3 (0.1-0.6); Monocytes Percent Auto 4.5 % (2.6-8.5); Neutrophils Absolute Auto 6.5 K/mm3 (1.3-6.7); Neutrophils Percent Auto 67.5 % (45.5-73.1); Platelet Count Result 373 k/mm3 (150-375); Red Blood Count 4.63 M/mm3 (4.2-5.4); Red Cell Distribution Width 17.2 % (11.5-14.5); White Blood Count 9.6 K/mm3 (4.5-10.0)
[2022-06-28 11:54] LABS: Alanine Aminotransferase 22 U/L (6-35); Albumin Level 4.8 g/dL (3.5-5.1); Alkaline Phosphatase 93 U/L (38-126); Anion Gap 13 mmol/L (8-16); Aspartate Amino Transferase 27 U/L (14-36); Bilirubin,Total 0.3 mg/dL (0.2-1.3); Blood Urea Nitrogen 28 mg/dL (7-17); Calcium 9.1 mg/dL (8.4-10.2); Carbon Dioxide 24 mmol/L (22-30); Chloride 103 mmol/L (98-107); Estimated CRCL calculation 80 ml/min; Estimated Glomerular Filt Rate > 60; Glucose 196 mg/dL (65-110); Potassium 4.3 mmol/L (3.4-5.0); Sodium 140 mmol/L (137-145)
[2022-06-28 12:00] LABS: Partial Thromboplastin Time 28.6 SECONDS (22.3-36.8); Prothrombin Time 12.7 Seconds (11.1-14.7)
[2022-06-28 12:08] LABS: Anisocytosis 1+ (NORMAL); Platelet Estimate Adequate (Adequate); Poikilocytosis 1+ (NORMAL)
--- NOTE | 2022-06-28 13:14 | PC.NURSE ---
Patient off unit to CT.
--- NOTE | 2022-06-28 14:26 | ED.GIBLEED ---
HPI - GI Bleed General Chief complaint: GI Bleed Stated complaint: blood clot from rectum Time Seen by Provider: 06/28/22 11:37 Source: patient Mode of arrival: ambulatory Limitations: no limitations History of Present Illness HPI Narrative: 37-year-old with a multiple neurological problems here with complaints of rectal bleeding since last night. Patient states that she passes a fair sized clot this morning. Denies history of diverticulosis or diverticulitis. Has hemorrhoids for last 19 years. She denies being lightheaded or dizzy. She is not on any anticoagulant. Complaints of right-sided abdominal pain. MD complaint: blood streaked stool and other (and clots) Onset (ago): day(s) (1) Pain Consistency: now resolved Severity: moderate Relieving factors: none Exacerbating factors: none Associated symptoms: denies other symptoms Treatments Prior to Arrival: none Related Data Home Medications Medication Instructions Recorded Confirmed losartan 100 mg tablet 100 mg PO DAILY 04/30/20 06/28/22 metformin 500 mg tablet,extended 500 mg PO DAILY 04/30/20 06/28/22 release 24 hr albuterol sulfate 90 mcg/actuation 1 inh inhalation PRN PRN Shortness 07/06/20 06/28/22 aerosol inhaler (ProAir HFA) Of Breath insulin degludec 200 unit/mL (3 50 unit subcut HS 07/06/20 06/28/22 mL) subcutaneous pen (Tresiba FlexTouch U-200 insulin) rosuvastatin 10 mg tablet (Crestor) 10 mg PO DAILY 08/09/20 06/28/22 aspirin 81 mg tablet 81 mg PO DAILY 11/12/20 06/28/22 ergocalciferol (vitamin D2) 1,250 1,250 mcg PO WEEKLY 11/12/20 06/28/22 mcg (50,000 unit) capsule (Vitamin D2) sertraline 100 mg tablet 100 mg PO DAILY 11/12/20 06/28/22 bupropion HCl 150 mg tablet,12 hr 150 mg PO DAILY 04/20/22 06/28/22 sustained-release (Wellbutrin SR) dapagliflozin 10 mg tablet 10 mg PO DAILY 04/20/22 06/28/22 (Farxiga) dulaglutide 4.5 mg/0.5 mL 4.5 mg subcut WEEKLY 04/20/22 06/28/22 subcutaneous pen injector (Trulicity) ferrous sulfate 325 mg (65 mg 325 mg PO DAILY 04/20/22 06/28/22 iron) tablet Allergies Allergy/AdvReac Type Severity Reaction Status Date / Time metoclopramide AdvReac Severe PANIC Verified 06/28/22 13:25 ATTACKS prochlorperazine AdvReac Severe PANIC Verified 06/28/22 13:25 [From Compazine] ATTACKS ondansetron AdvReac PANIC Verified 06/28/22 13:25 ATTACKS promethazine AdvReac PANIC Verified 06/28/22 13:25 ATTACKS Review of Systems Review of Systems: All systems reviewed & are unremarkable except as noted in HPI and below Constitutional: Constitutional: Reports no additional constitutional complaints Eyes: Eyes: Reports no additional eye complaints ENT: Reports system reviewed and no additional complaints, except as documented Cardiovascular: Cardiovascular: Reports no additional cardiovascular complaints Respiratory: Respiratory: Reports no additional respiratory complaints Gastrointestinal: Gastrointestinal: Reports no additional gastrointestinal complaints Musculoskeletal: Musculoskeletal: Reports no additional musculoskeletal complaints Integumentary/Breasts: Skin/Breast: Reports system reviewed and no additional complaints, except as docu Neurologic: Reports system reviewed and no additional complaints, except as documented Endocrine: Endocrine: Reports no additional endocrine complaints Hematologic/Lymphatic: Hematologic/Lymphatic: Reports no additional hematologic/lymphatic complaints Allergic/Immunologic: Allergic/Immunologic: Reports no additional allergic/immunologic complaints [facility] Past Medical History Medical History BOBBY positive (~2020) Anxiety Chronic kidney disease CRP elevated Degenerative joint disease of cervical and lumbar spine Dyslipidemia Empty sella syndrome Fibromyalgia Gastroesophageal reflux disease History of Pettit's palsy Hypertension Insulin dependent type 2 diabetes mellitus Hemoglobin A1c on
== END 2022-06-28 14:50 | disposition home or self-care (01) ==
PROVIDERS: Emergency Provider Family Medicine; PCP Internal Medicine
DX: K92.2 Gastrointestinal hemorrhage, unspecified (principal); E28.2 Polycystic ovarian syndrome; E11.22 Type 2 diabetes mellitus with diabetic chronic kidney disease; I12.9 Hypertensive chronic kidney disease with stage 1 through stage 4 chronic kidney disease, or unspecified chronic kidney disease; N18.9 Chronic kidney disease, unspecified; E78.5 Hyperlipidemia, unspecified; M79.7 Fibromyalgia; E23.6 Other disorders of pituitary gland; Z87.891 Personal history of nicotine dependence; Z79.4 Long term (current) use of insulin; Z79.84 Long term (current) use of oral hypoglycemic drugs; Z79.82 Long term (current) use of aspirin
CPT/HCPCS: 36415; 74177; 80053; 85025; 85610; 85730; 86850; 86900; 86901; 99284; Q9967

== ENCOUNTER 2022-07-09 08:46 | Outpatient (CLI) | payer BC, SELFPAY ==
--- NOTE | ~2022-07-09 | MR_ITS ---
EXAMINATION: MR brain/brain stem wo con DATE: 07/09/2022 09:26 INDICATION: Idiopathic intracranial hypertension. Headache. TECHNIQUE: Magnetic resonance imaging (MRI) of the brain and brainstem was performed without intraven ous contrast. COMPARISON: Brain MRI 11/21/2020 FINDINGS: There is no intracranial hemorrhage, acute infarction, or abnormal intracranial mass lesion . The ventricles are normal in size. Hyperostosis frontalis interna is noted. The paranasal sinuses a re clear. The orbits are normal. The mastoid air cells are normal. IMPRESSION: 1. Normal brain. Reviewed, dictated and finalized at location A. IMPRESSION: 1. Normal brain.
== END 2022-07-09 08:47 ==
LOC: MICIMG 08:47
PROVIDERS: PCP Internal Medicine; Visit Provider Internal Medicine
DX: G93.2 Benign intracranial hypertension (principal)
CPT/HCPCS: 70551

== ENCOUNTER 2022-07-23 09:36 | Outpatient (CLI) | payer BC, SELFPAY ==
--- NOTE | ~2022-07-23 | US_ITS ---
EXAMINATION: US transvaginal DATE: 07/23/2022 10:19 INDICATION: N93.9 - Abnormal uterine and vaginal bleeding, unspecified cysts seen in prior CT scan. TECHNIQUE: Multiple transabdominal and endovaginal sonographic images of the pelvis were obtained. COMPARISON: None. FINDINGS: Uterus: 10.2 x 4.4 x 6.9 cm. Endometrial complex measures 7 mm. Right Ovary: 3.0 x 2.4 x 4.0 cm. Vascular flow is present. Oral visualized. Left Ovary: Not clearly visualized. 12.4 x 10.3 x 12.2 cm. Multiloculated cystic lesion in the left a dnexa corresponding to the prior CT findings. Mild vascular flow present within septations. Visualiza tion is somewhat limited, solid component difficult to exclude in this examination. . There is no free fluid in the pelvis. IMPRESSION: Multilocular left ovarian cyst measuring up to 12.4 cm. Recommend referral to gynecology and/or gynec ology-oncology. Consider MRI of the pelvis if further imaging evaluation is clinically warranted. Reviewed, dictated and finalized at location K. IMPRESSION: Multilocular left ovarian cyst measuring up to 12.4 cm. Recommend referral to g ynecology and/or gynecology-oncology. Consider MRI of the pelvis if further callie ging evaluation is clinically warranted.
== END 2022-07-23 09:37 ==
LOC: MICIMG 09:37
PROVIDERS: PCP Internal Medicine; Visit Provider Obstetrics & Gynecology
DX: N93.9 Abnormal uterine and vaginal bleeding, unspecified (principal); N83.202 Unspecified ovarian cyst, left side
CPT/HCPCS: 76830

== ENCOUNTER 2022-09-02 01:17 | Day surgery (SDC) | payer BC, SELFPAY ==
[2022-06-28 13:30] VITALS: BMI 34.0
[2022-08-17 14:10] VITALS: BMI 34.0
[2022-09-02 10:46] VITALS: BP 150/95; PULSE 93; RESP 18; TEMP 36.6; O2SAT 100
[2022-09-02] MEDS: LACTATED RINGERS 1,000 ML 150 ML IV CONT (10:49)
--- NOTE | 2022-09-02 10:51 | PM.HPGS ---
History of Present Illness History of Present Illness Consent: Risks, benefits, and alternatives have been discussed and questions answered. Patient agrees to proceed with procedure. Chief complaint: KALLIE Narrative: Kylee Guo is a 37 year old female with worsening constipation for last 2 years, recently on senna with only some relief. Last 2 months with blood in stools, never had colonoscopy. Review of Systems Constitutional: Constitutional: Denies headache(s) and Denies weakness Eyes: Eyes: Denies blurry vision ENT: Reports Normal hearing present, Denies headache(s) and Denies neck pain Cardiovascular: Cardiovascular: Denies chest pain and Denies dyspnea Respiratory: Respiratory: Denies dyspnea Gastrointestinal: Gastrointestinal: Reports no additional gastrointestinal complaints Genitourinary: Genitourinary: Denies dysuria Musculoskeletal: Musculoskeletal: Denies neck pain Integumentary/Breasts: Skin/Breast: Denies dry skin Neurologic: Reports Normal hearing present, Denies headache(s) and Denies weakness Psychiatric: Psychiatric: Denies anxiety Endocrine: Endocrine: Denies change in body appearance Hematologic/Lymphatic: Hematologic/Lymphatic: Denies easy bleeding Allergic/Immunologic: Allergic/Immunologic: Denies urticaria PMFSH Past Medical History Medical History (Updated 09/02/22 @ 10:52 by Salo Tuttle MD) BOBBY positive (~2020) Anxiety Bilateral hand pain Chronic kidney disease Constipation CRP elevated Degenerative joint disease of cervical and lumbar spine Dyslipidemia Empty sella syndrome Fibromyalgia Gastroesophageal reflux disease Hematochezia History of Pettit's palsy Hypertension Insulin dependent type 2 diabetes mellitus Hemoglobin A1c on 11/12/2020 was 7.9%. Kidney cysts Followed by a aerospace technician in [place]. Migraine headache Myalgia Myalgia Polycystic ovarian syndrome Pseudotumor cerebri SOB (shortness of breath) Surgical History Surgical History Delivery by section xs 2 History of laparoscopic cholecystectomy (~2005) History of tubal ligation Family History Family History Father Diabetes mellitus Hypertension Myocardial infarct Heart disease Mother Diabetes mellitus Heart disease Sibling Narcolepsy and cataplexy Legal Guardian No problems noted. Grandparent Breast cancer Social History Social History Social History: The patient is and lives in [place] with her teenage son and daughter. She works for the [employer]. She smoked about a half a pack of cigarettes a day and quit in June 2020. No alcohol or illicit substance abuse. She designates her daughter Kiesha as her surrogate decision maker and she wishes to be a full code. Smoking packs per day: 1 Smoking cigarettes per day: 20.0 Smoking status: Former smoker Tobacco type: cigarettes Second hand tobacco smoke exposure: Yes Smoking end date: 06/29/20 Alcohol intake: never Substance use: current Substance use type: marijuana Last use: DAILY Living arrangements: with family Additional occupation/education comments: [employer] Gender identity (if verbalized by the patient): Female Sexual Orientation (if Verbalized by the Patient): Bisexual Spiritual care concerns: No Meds Home Medications and Allergies Home Medications Medication Instructions Recorded Confirmed Type losartan 100 mg tablet 100 mg PO DAILY 04/30/20 09/02/22 History metformin 500 mg tablet,extended 500 mg PO DAILY 04/30/20 09/02/22 History release 24 hr albuterol sulfate 90 mcg/actuation 1 inh inhalation PRN PRN Shortness 07/06/20 09/02/22 History aerosol inhaler (ProAir HFA) Of Breath insulin degludec 200 unit/mL (3 50 unit subcut HS 07/06/20 09/02/22 History mL) subcutaneo
[2022-09-02 11:03] LABS: Glucose Point of Care 111 mg/dl (65-105)
--- NOTE | 2022-09-02 11:24 | WPDANESEPPF ---
Anes - Initial Pre Proc Eval Procedure: Operation Date: 09/02/22 12:30 Proposed Procedures p Colonoscopy - Salo Tuttle MD Date/Time: 09/02/22 11:24 Surgeon: Salo Tuttle MD Pre Op Diagnosis: KALLIE Patient Data Age: 37 Gender: F Height: 1.63 m Weight: 92.1 kg Last Vital Signs Temp 98 F 09/02/22 10:46 Pulse 93 09/02/22 10:46 Resp 18 09/02/22 10:46 BP 150/95 H 09/02/22 10:46 Pulse Ox 100 09/02/22 10:46 O2 Del Method Room Air 09/02/22 10:46 Allergies Allergy/AdvReac Type Severity Reaction Status Date / Time metoclopramide AdvReac Severe PANIC Verified 09/02/22 10:44 ATTACKS prochlorperazine AdvReac Severe PANIC Verified 09/02/22 10:44 [From Compazine] ATTACKS ondansetron AdvReac PANIC Verified 09/02/22 10:44 ATTACKS promethazine AdvReac PANIC Verified 09/02/22 10:44 ATTACKS Home Medications Medication Instructions Recorded Confirmed Type losartan 100 mg tablet 100 mg PO DAILY 04/30/20 09/02/22 History metformin 500 mg tablet,extended 500 mg PO DAILY 04/30/20 09/02/22 History release 24 hr albuterol sulfate 90 mcg/actuation 1 inh inhalation PRN PRN Shortness 07/06/20 09/02/22 History aerosol inhaler (ProAir HFA) Of Breath insulin degludec 200 unit/mL (3 50 unit subcut HS 07/06/20 09/02/22 History mL) subcutaneous pen (Tresiba FlexTouch U-200 insulin) nitroglycerin 0.4 mg sublingual 0.4 mg sublingual Q5MIN PRN Chest 07/07/20 09/02/22 Rx tablet (Nitrostat) Pain #20 tabs rosuvastatin 10 mg tablet (Crestor) 10 mg PO DAILY 08/09/20 09/02/22 History aspirin 81 mg tablet 81 mg PO DAILY 11/12/20 09/02/22 History ergocalciferol (vitamin D2) 1,250 1,250 mcg PO WEEKLY 11/12/20 09/02/22 History mcg (50,000 unit) capsule (Vitamin D2) bupropion HCl 150 mg tablet,12 hr 150 mg PO DAILY 04/20/22 09/02/22 History sustained-release (Wellbutrin SR) dapagliflozin 10 mg tablet 10 mg PO DAILY 04/20/22 09/02/22 History (Farxiga) dulaglutide 4.5 mg/0.5 mL 4.5 mg subcut WEEKLY 04/20/22 09/02/22 History subcutaneous pen injector (Trulicity) ferrous sulfate 325 mg (65 mg 325 mg PO DAILY 04/20/22 09/02/22 History iron) tablet fluconazole 150 mg tablet 150 mg PO Q72H #2 tabs 05/16/22 09/02/22 Rx hydrocortisone acetate 25 mg 25 mg RECTAL BID #12 ea 06/28/22 09/02/22 Rx rectal suppository (Anusol-HC) amitriptyline 25 mg tablet 25 mg PO QHS #30 tabs 07/22/22 09/02/22 Rx methocarbamol 750 mg tablet 750 mg PO TID #90 tabs 07/22/22 09/02/22 Rx Laboratory Tests 09/02/22 10:42 POC Capillary Glucose 111 mg/dl H mg/dl (65-105) Patient hx anesthesia problems: none Family hx anesthesia problems: none Results Review: All pre-operative results and documents have been reviewed as part of the pre-operative evaluation. [facility] Past Medical History Medical History (Updated 09/02/22 @ 10:52 by Salo Tuttle MD) BOBBY positive (~2020) Anxiety Bilateral hand pain Chronic kidney disease Constipation CRP elevated Degenerative joint disease of cervical and lumbar spine Dyslipidemia Empty sella syndrome Fibromyalgia Gastroesophageal reflux disease Hematochezia History of Pettit's palsy Hypertension Insulin dependent type 2 diabetes mellitus Hemoglobin A1c on 11/12/2020 was 7.9%. Kidney cysts Followed by a wet trimmer in [place]. Migraine headache Myalgia Myalgia Polycystic ovarian syndrome Pseudotumor cerebri SOB (shortness of breath) Surgical History Surgical History Delivery by section xs 2 History of laparoscopic cholecystectomy (~2005) History of tubal ligation Family History Family History Father Diabetes mellitus Hypertension Myocardial infarct Heart disease Mother Diabetes mellitus Heart disease Sibling Narcolepsy and cataplexy Legal
[2022-09-02 11:54] VITALS: BP 138/80; PULSE 88; RESP 18; O2SAT 99
[2022-09-02 12:04] VITALS: BP 150/90; PULSE 86; RESP 21; O2SAT 100
[2022-09-02 12:06] LABS: Glucose Point of Care 98 mg/dl (65-105)
[2022-09-02 12:11] VITALS: BP 149/100; PULSE 82; RESP 21; O2SAT 100
== END 2022-09-02 12:23 | disposition home or self-care (01) ==
PROVIDERS: PCP Internal Medicine; Visit Provider Internal Medicine Gastroenterology
PROC: 0DJD8ZZ Inspection of Lower Intestinal Tract, Via Natural or Artificial Opening Endoscopic (ICD-10-PCS; CPT 45378; principal; 2022-09-02 12:30)
DX: K92.1 Melena (principal); K57.30 Diverticulosis of large intestine without perforation or abscess without bleeding; K64.8 Other hemorrhoids; E23.6 Other disorders of pituitary gland; Z79.82 Long term (current) use of aspirin; Z79.84 Long term (current) use of oral hypoglycemic drugs; Z79.4 Long term (current) use of insulin; Z79.51 Long term (current) use of inhaled steroids; F41.9 Anxiety disorder, unspecified; M47.812 Spondylosis without myelopathy or radiculopathy, cervical region; M47.816 Spondylosis without myelopathy or radiculopathy, lumbar region; E78.5 Hyperlipidemia, unspecified; M79.7 Fibromyalgia; Z86.69 Personal history of other diseases of the nervous system and sense organs; I10 Essential (primary) hypertension; N28.1 Cyst of kidney, acquired; G93.2 Benign intracranial hypertension; Z87.891 Personal history of nicotine dependence; F12.90 Cannabis use, unspecified, uncomplicated; Z90.49 Acquired absence of other specified parts of digestive tract; K59.00 Constipation, unspecified
CPT/HCPCS: 45378; 82948; J2001; J2704; J7120

== ENCOUNTER 2022-09-11 17:22 | Emergency (ER) | payer BC, SELFPAY ==
--- NOTE | ~2022-09-11 | CT_ITS ---
EXAMINATION: CT soft tissue neck w con DATE: 09/11/2022 20:44 INDICATION: Left facial swelling TECHNIQUE: Computed tomography (CT) of the neck was performed with 75 cc of Omnipaque 350 intravenous contrast. The dose-length product (DLP) was 486.37 mGy-cm. Automated exposure control and iterative reconstruction technique were employed. COMPARISON: None FINDINGS: There are subtle inflammation and enlargement of the left parotid gland relative to the rig ht. There is mild edematous stranding of the fat adjacent to the left parotid. No abscess is identifi ed. There is mild mucosal thickening and small fluid levels of the maxillary sinuses. There is mucosa l thickening of the ethmoidal air cells. Fluid levels are noted in the sphenoid sinuses. The airway i s patent. There is mild cervical lymphadenopathy, likely reactive. IMPRESSION: 1. Findings consistent with left parotitis. Reviewed, dictated and finalized at location F.
[2022-09-11 17:42] VITALS: BP 169/89; PULSE 94; RESP 14; TEMP 36.6; O2SAT 98
--- NOTE | 2022-09-11 19:49 | ED.SKABFB ---
HPI - Skin/Abscess/Foreign Bdy General Chief complaint: Dental/Oral Stated complaint: Left side of face is swollen, pain Time Seen by Provider: 09/11/22 19:13 History of Present Illness HPI narrative: Patient with history of diabetes presents with swelling and pain to her left cheek/jaw, started today, she took a lot of Tylenol and swelling has already improved. Related Data Home Medications Medication Instructions Recorded Confirmed losartan 100 mg tablet 100 mg PO DAILY 04/30/20 09/02/22 metformin 500 mg tablet,extended 500 mg PO DAILY 04/30/20 09/02/22 release 24 hr albuterol sulfate 90 mcg/actuation 1 inh inhalation PRN PRN Shortness 07/06/20 09/02/22 aerosol inhaler (ProAir HFA) Of Breath insulin degludec 200 unit/mL (3 50 unit subcut HS 07/06/20 09/02/22 mL) subcutaneous pen (Tresiba FlexTouch U-200 insulin) rosuvastatin 10 mg tablet (Crestor) 10 mg PO DAILY 08/09/20 09/02/22 aspirin 81 mg tablet 81 mg PO DAILY 11/12/20 09/02/22 ergocalciferol (vitamin D2) 1,250 1,250 mcg PO WEEKLY 11/12/20 09/02/22 mcg (50,000 unit) capsule (Vitamin D2) bupropion HCl 150 mg tablet,12 hr 150 mg PO DAILY 04/20/22 09/02/22 sustained-release (Wellbutrin SR) dapagliflozin 10 mg tablet 10 mg PO DAILY 04/20/22 09/02/22 (Farxiga) dulaglutide 4.5 mg/0.5 mL 4.5 mg subcut WEEKLY 04/20/22 09/02/22 subcutaneous pen injector (Trulicity) ferrous sulfate 325 mg (65 mg 325 mg PO DAILY 04/20/22 09/02/22 iron) tablet Allergies Allergy/AdvReac Type Severity Reaction Status Date / Time metoclopramide AdvReac Severe PANIC Verified 09/11/22 19:30 ATTACKS prochlorperazine AdvReac Severe PANIC Verified 09/11/22 19:30 [From Compazine] ATTACKS ondansetron AdvReac PANIC Verified 09/11/22 19:30 ATTACKS promethazine AdvReac PANIC Verified 09/11/22 19:30 ATTACKS Review of Systems Review of Systems: CONST: No fever. HEENT: Left sided face swelling without airway swelling C/V: No chest pain RESP: No cough GI: No nausea/vomiting : No dysuria. M/S: No joint pain. SKIN: No rash. NEURO: [No headache or focal numbness or weakness] PSYCH: [No depression] [facility] Past Medical History Medical History BOBBY positive (~2020) Anxiety Bilateral hand pain Chronic kidney disease Constipation CRP elevated Degenerative joint disease of cervical and lumbar spine Dyslipidemia Empty sella syndrome Fibromyalgia Gastroesophageal reflux disease Hematochezia History of Pettit's palsy Hypertension Insulin dependent type 2 diabetes mellitus Hemoglobin A1c on 11/12/2020 was 7.9%. Kidney cysts Followed by a plan examiner in [place]. Migraine headache Myalgia Myalgia Polycystic ovarian syndrome Pseudotumor cerebri SOB (shortness of breath) Surgical History Surgical History Delivery by section xs 2 History of laparoscopic cholecystectomy (~2005) History of tubal ligation Family History Family History Father Diabetes mellitus Hypertension Myocardial infarct Heart disease Mother Diabetes mellitus Heart disease Sibling Narcolepsy and cataplexy Legal Guardian No problems noted. Grandparent Breast cancer Social History Social History Social History: The patient is and lives in [place] with her teenage son and daughter. She works for the [employer]. She smoked about a half a pack of cigarettes a day and quit in June 2020. No alcohol or illicit substance abuse. She designates her daughter Kiesha as her surrogate decision maker and she wishes to be a full code. Smoking packs per day: 1 Smoking cigarettes per day: 20.0 Smoking status: Former smoker Tobacco type: cigarettes Second hand tobacco smoke exposure: Yes Smoking end date: 06/29/20 Alcohol intake: never Sub
[2022-09-11 19:56] LABS: Basophils Percent Auto 0.3 % (0.2-1.2); Eosinophils Absolute Auto 0.2 K/mm3 (0-0.3); Eosinophils Percent Auto 2.4 % (0-4.4); Hematocrit 36.8 % (37.0-47.0); Hemoglobin 11.8 g/dL (12.0-15.0); Immature Granulocyte Absolute 0.01 K/mm3 (0.00-0.031); Immature Granulocyte Percent A 0.2 % (0-0.5); Lymphocytes Absolute Auto 1.88 K/mm3 (0.9-3.2); Lymphocytes Percent Auto 30.3 % (18.3-44.2); Mean Corpuscular HGB Conc 32.1 g/dl (32-36); Mean Corpuscular Hemoglobin 26.3 pg (26-34); Mean Corpuscular Volume 82.1 fl (80-100); Monocytes Absolute Auto 0.4 K/mm3 (0.1-0.6); Monocytes Percent Auto 6.3 % (2.6-8.5); Neutrophils Absolute Auto 3.8 K/mm3 (1.3-6.7); Neutrophils Percent Auto 60.5 % (45.5-73.1); Platelet Count Result 272 k/mm3 (150-375); Red Blood Count 4.48 M/mm3 (4.2-5.4); Red Cell Distribution Width 14.5 % (11.5-14.5); White Blood Count 6.2 K/mm3 (4.5-10.0)
[2022-09-11 20:10] LABS: Anion Gap 16 mmol/L (8-16); Blood Urea Nitrogen 14 mg/dL (7-17); Calcium 9.4 mg/dL (8.4-10.2); Carbon Dioxide 25 mmol/L (22-30); Chloride 101 mmol/L (98-107); Estimated CRCL calculation 89 ml/min; Estimated Glomerular Filt Rate > 60; Glucose 123 mg/dL (65-110); Potassium 3.5 mmol/L (3.4-5.0); Sodium 142 mmol/L (137-145)
[2022-09-11] MEDS: CLINDAMYCIN 600 MG/D5W 50 ML 600 MG/50 ML PIGGYBACK 100 MG IVPB (21:22)
[2022-09-11 21:28] VITALS: BP 158/96; PULSE 93; RESP 16; O2SAT 98
[2022-09-11 22:00] VITALS: BP 149/94; PULSE 92; RESP 16; TEMP 37.2; O2SAT 98
== END 2022-09-11 22:01 | disposition home or self-care (01) ==
PROVIDERS: Emergency Provider Emergency Medicine; PCP Internal Medicine
DX: K11.21 Acute sialoadenitis (principal); E11.22 Type 2 diabetes mellitus with diabetic chronic kidney disease; I12.9 Hypertensive chronic kidney disease with stage 1 through stage 4 chronic kidney disease, or unspecified chronic kidney disease; N18.9 Chronic kidney disease, unspecified; E78.5 Hyperlipidemia, unspecified; M79.7 Fibromyalgia; E28.2 Polycystic ovarian syndrome; F41.9 Anxiety disorder, unspecified; Z87.891 Personal history of nicotine dependence; Z79.4 Long term (current) use of insulin; Z79.84 Long term (current) use of oral hypoglycemic drugs; Z79.82 Long term (current) use of aspirin
CPT/HCPCS: 36415; 70491; 80048; 85025; 87040; 96365; 99284; Q9967

== ENCOUNTER 2022-10-06 10:08 | Outpatient (CLI) | payer BC, SELFPAY ==
--- NOTE | 2022-10-06 11:30 | NEURO_ITS ---
Impression: # Complains of left hand numbness. # Left ulnar neuropathy across the elbow. #no carpal tunnel syndrome. # Normal needle/EMG exam. # Clinical correlation recommended. Motor Nerve Conduction Upper Extremities Median Nerve Conduction Velocity (m/sec) Terminal Latency (msec) Response Voltage(mV) Elbow-Wrist Wrist Elbow Wrist Right 58 3.4 4 6 Left 60 3.7 2 4 Ulnar Nerve Conduction Velocity (m/sec) Terminal Latency (msec) Response Voltage(mV) Above Elbow Below Elbow Wrist Above Elbow Below Elbow Wrist Right 55 2.4 5 8 Left 50 60 2.7 5 3 7 F-Wave Latency Median (ms) Ulnar (ms) Right 26.3 26.5 Left 27.1 27.1 Sensory Nerve Conduction Upper Extremities Median Nerve Stimulation Terminal Latency (msec) Wrist/Digit Response Voltage (uV) Wrist Right 3.1/3.0 54/70 Left 3.0/3.2 66/47 Ulnar Nerve Stimulation Terminal Latency (msec) Wrist/Digit Response Voltage (uV) Wrist Right 2.6 56 Left 2.8 18 Radial Nerve Terminal Latency (msec) Response Voltage(mV) Right 2.0 34 Left 2.0 16 Left Right Muscles Examined Fibrillation Fasciculation Scarcity Voltage Duration Left Right Left Right Left Right Left Right Left Right Deltoid Biceps X X Brachioradialis Triceps X X Pronator Teres X X Ext Indicis X X Ext Digitorum X X Abd Poll Brev X X 1st Dorsal Interosseus Paraspinals MTDD
== END 2022-10-06 10:09 | disposition home or self-care (01) ==
LOC: ANHNEURO 10:09
PROVIDERS: PCP Internal Medicine; Visit Provider Psychiatry & Neurology Neurology
DX: R20.0 Anesthesia of skin (principal); G56.22 Lesion of ulnar nerve, left upper limb
CPT/HCPCS: 95886; 95911

== ENCOUNTER 2022-10-27 16:54 | Outpatient (CLI) | payer BC, SELFPAY ==
--- NOTE | ~2022-10-27 | MM_ITS ---
EXAMINATION: MM screening abdi BI w price HISTORY: Screening TECHNIQUE: Craniocaudal and mediolateral oblique 3-D tomosynthesis images were obtained and synthetic 2-D images were generated. CAD analysis was submitted and interpreted. COMPARISON: No prior mammogram is available for comparison at this institution. BREAST PARENCHYMAL COMPOSITION: There are scattered areas of fibroglandular density. FINDINGS: There are benign-appearing bilateral breast calcifications. There is no evidence of suspici ous mass, calcification, or architectural distortion to suggest malignancy in either breast. There gonzalez s been no suspicious interval change. IMPRESSION: 1. No mammographic evidence of malignancy. 2. Recommend routine screening mammography in one year. BI-RADS Category 1: Negative Reviewed, dictated and finalized at location A. OCULTURAL ANTHROPOLOGY PROFESSOR
== END 2022-10-27 16:55 | disposition home or self-care (01) ==
LOC: ANHIMG 16:55
PROVIDERS: PCP Internal Medicine; Visit Provider Internal Medicine
DX: Z12.31 Encounter for screening mammogram for malignant neoplasm of breast (principal)
CPT/HCPCS: 77063; 77067

== ENCOUNTER 2023-01-13 01:30 | Day surgery (SDC) | payer BC, SELFPAY ==
[2023-01-06 12:11] VITALS: BMI 36.7
[2023-01-13 09:50] VITALS: BP 159/90; PULSE 98; RESP 18; TEMP 36.4; O2SAT 100
[2023-01-13] MEDS: LACTATED RINGERS 1,000 ML 150 ML IV CONT (10:01)
[2023-01-13 10:05] LABS: Glucose Point of Care 206 mg/dl (65-105)
--- NOTE | 2023-01-13 10:19 | WPDHPUPDATE1 ---
History and Physical Update Update Date/Time: 01/13/23 10:19 History and Physical has been reviewed, including an updated exam of the patient. There are NO changes in the patient's condition. Risks, benefits, and alternatives have been discussed and questions answered. Patient agrees to proceed with procedure.
--- NOTE | 2023-01-13 10:24 | WPDANESEPPF ---
Anes - Initial Pre Proc Eval Procedure: Operation Date: 01/13/23 10:45 Proposed Procedures p Esophagogastroduodenoscopy - Salo Tuttle MD Date/Time: 01/13/23 10:24 Surgeon: Salo Tuttle MD Pre Op Diagnosis: GERD Patient Data Age: 37 Gender: F Height: 1.63 m Weight: 95.8 kg Last Vital Signs Temp 97.5 F L 01/13/23 09:50 Pulse 98 01/13/23 09:50 Resp 18 01/13/23 09:50 BP 159/90 H 01/13/23 09:50 Pulse Ox 100 01/13/23 09:50 O2 Del Method Room Air 01/13/23 09:50 Allergies Allergy/AdvReac Type Severity Reaction Status Date / Time metoclopramide AdvReac Severe PANIC Verified 01/13/23 09:49 ATTACKS ondansetron AdvReac Severe PANIC Verified 01/13/23 09:49 ATTACKS prochlorperazine AdvReac Severe PANIC Verified 01/13/23 09:49 [From Compazine] ATTACKS promethazine AdvReac Severe PANIC Verified 01/13/23 09:49 ATTACKS adhesive tape AdvReac Intermediate Rash Verified 01/13/23 09:49 Home Medications Medication Instructions Recorded Confirmed Type losartan 100 mg tablet 100 mg PO DAILY 04/30/20 01/06/23 History metformin 500 mg tablet,extended 500 mg PO DAILY 04/30/20 01/06/23 History release 24 hr albuterol sulfate 90 mcg/actuation 1 inh inhalation PRN PRN Shortness 07/06/20 01/06/23 History aerosol inhaler (ProAir HFA) Of Breath insulin degludec 200 unit/mL (3 60 unit subcut HS 07/06/20 01/06/23 History mL) subcutaneous pen (Tresiba FlexTouch U-200 insulin) nitroglycerin 0.4 mg sublingual 0.4 mg sublingual Q5MIN PRN Chest 07/07/20 01/06/23 Rx tablet (Nitrostat) Pain #20 tabs rosuvastatin 10 mg tablet (Crestor) 10 mg PO DAILY 08/09/20 01/06/23 History aspirin 81 mg tablet 81 mg PO DAILY 11/12/20 01/06/23 History bupropion HCl 150 mg tablet,12 hr 150 mg PO DAILY 04/20/22 01/06/23 History sustained-release (Wellbutrin SR) dapagliflozin 10 mg tablet 10 mg PO DAILY 04/20/22 01/06/23 History (Farxiga) dulaglutide 4.5 mg/0.5 mL 4.5 mg subcut WEEKLY 04/20/22 01/06/23 History subcutaneous pen injector (Trulicity) ferrous sulfate 325 mg (65 mg 325 mg PO DAILY 04/20/22 01/06/23 History iron) tablet linaclotide 72 mcg capsule 72 mcg PO DAILY #30 caps 12/29/22 01/06/23 Rx (Linzess) valacyclovir 500 mg tablet 500 mg PO BID PRN FLARE UP 01/06/23 01/06/23 History (Valtrex) Laboratory Tests 01/13/23 10:01 POC Capillary Glucose 206 mg/dl H mg/dl (65-105) Patient hx anesthesia problems: none Family hx anesthesia problems: none Results Review: All pre-operative results and documents have been reviewed as part of the pre-operative evaluation. [facility] Past Medical History Medical History (Updated 12/29/22 @ 16:28 by Salo Tuttle MD) BOBBY positive (~2020) Anxiety Bilateral hand pain Chronic kidney disease Colon, diverticulosis Constipation CRP elevated Degenerative joint disease of cervical and lumbar spine Dyslipidemia Empty sella syndrome Fibromyalgia Gastroesophageal reflux disease Hematochezia History of Pettit's palsy Hypertension Insulin dependent type 2 diabetes mellitus Hemoglobin A1c on 11/12/2020 was 7.9%. Kidney cysts Followed by a interpreter and translator in [place]. Migraine headache Myalgia Myalgia Polycystic ovarian syndrome Pseudotumor cerebri SOB (shortness of breath) Surgical History Surgical History Delivery by section xs 2 History of laparoscopic cholecystectomy (~2005) History of tubal ligation Family History Family History Father Diabetes mellitus Hypertension Myocardial infarct Heart disease Mother Diabetes mellitus Heart disease Sibling Narcolepsy and cataplexy Legal Guardian No problems noted. Grandparent Breast cancer Social History Social History (Reviewed 12/29/22 @ 15:55 by Aniya Love,
[2023-01-13] MEDS: BENZOCAINE (*SP) 60 ML SPRAY CAN (HURRICAINE) 1 SPRAY MUCOUS MEM (10:29)
[2023-01-13 10:41] VITALS: BP 125/71; PULSE 88; RESP 20; O2SAT 99
[2023-01-13 10:51] VITALS: BP 131/80; PULSE 85; RESP 22; O2SAT 100
[2023-01-13 11:01] VITALS: BP 140/80; PULSE 85; RESP 20; O2SAT 100
[2023-01-13 11:08] LABS: Glucose Point of Care 177 mg/dl (65-105)
== END 2023-01-13 11:19 | disposition home or self-care (01) ==
PROVIDERS: PCP Internal Medicine; Visit Provider Internal Medicine Gastroenterology
PROC: 0DJ08ZZ Inspection of Upper Intestinal Tract, Via Natural or Artificial Opening Endoscopic (ICD-10-PCS; CPT 43235; principal; 2023-01-13 10:45)
DX: K21.00 Gastro-esophageal reflux disease with esophagitis, without bleeding (principal); K44.9 Diaphragmatic hernia without obstruction or gangrene; K29.70 Gastritis, unspecified, without bleeding; G93.2 Benign intracranial hypertension; M79.7 Fibromyalgia; I12.9 Hypertensive chronic kidney disease with stage 1 through stage 4 chronic kidney disease, or unspecified chronic kidney disease; N18.9 Chronic kidney disease, unspecified; F41.9 Anxiety disorder, unspecified; E78.5 Hyperlipidemia, unspecified; E11.22 Type 2 diabetes mellitus with diabetic chronic kidney disease; E28.2 Polycystic ovarian syndrome; N28.1 Cyst of kidney, acquired; Z79.84 Long term (current) use of oral hypoglycemic drugs; Z79.51 Long term (current) use of inhaled steroids; Z79.4 Long term (current) use of insulin; Z79.82 Long term (current) use of aspirin; Z79.899 Other long term (current) drug therapy; Z87.891 Personal history of nicotine dependence; E66.9 Obesity, unspecified; Z68.36 Body mass index [BMI] 36.0-36.9, adult
CPT/HCPCS: 43239; 82948; 88305; J2704; J7120

== ENCOUNTER 2023-05-25 18:57 | Emergency (ER) | payer BC, SELFPAY ==
--- NOTE | ~2023-05-25 | CT_ITS ---
Non-contrast CT scan of the Abdomen and Pelvis Clinical indication: Right flank pain Technique: 2.5 mm axial scans were obtained through the abdomen and pelvis without intravenous or or al contrast. Dose reduction technique was used on this scan by utilizing automated exposure control a nd iterative reconstruction technique. The dose-length product (DLP) was 1132.08 mGy-cm. COMPARISON: 06/28/2022 Findings: Images through the lung bases reveal no abnormalities. There is no evidence of renal or ureteral calculi. The kidneys and the ureters are nondilated. The liver, spleen, pancreas, and adrenals appear normal. Cholecystectomy clips are present. There is no aortic aneurysm. There is no evidence of bowel obstruction. Normal appendix. Images through the pelvis were performed. There is no evidence of ascites or lymphadenopathy. Urinary bladder unremarkable. Small calcified uterine fibroid present. Impression: No acute abnormality. Small calcified uterine fibroid. Reviewed, dictated and finalized at [facility]. Impression: No acute abnormality. Small calcified uterine fibroid.
[2023-05-25 19:01] VITALS: BP 156/93; PULSE 98; RESP 18; TEMP 36.3; O2SAT 100
[2023-05-25 19:45] LABS: Appearance Urine Clear (Clear); Bacteria Urine 1+ /hpf; Bilirubin Urine Negative (Negative); Blood Urine 2+ (Negative); Color Urine Yellow (Yellow); Glucose Urine UA 3+ mg/dL (Negative); Ketones Urine Negative (Negative); Leukocyte Esterase Ur Negative LEU/UL (Negative); Need Manual Microscopic Reviewed; Nitrate Urine Positive (Negative); Non Pathogenic Casts 0-2; Protein Urine 2+ mg/dL (Negative); RBC Urine 51-100 /hpf (0-2); Specific Grav Ur 1.033 (1.001-1.035); Squamous Epithelial Cell Urine Occasional /hpf (Few); Urobilinogen Urine 0.2 mg/dL (<2.0); WBC Clumps Urine Present /HPF; WBC Urine 51-100 /hpf
[2023-05-25 19:47] LABS: Add Urine Microscopic? YES
--- NOTE | 2023-05-25 19:56 | ED.GENADULT ---
HPI - General Adult General Chief complaint: Urogenital-Female Stated complaint: kidney infection Time Seen by Provider: 05/25/23 19:45 History of Present Illness HPI narrative: Patient 37-year-old female who presents the emergency department with chief complaint of right flank pain and abdominal pain. Patient reports that 3 days ago she started having pain in the epigastric region that shot through her abdomen. Patient states that she has been managing pain at home and reports that now the pain is localized to her right flank area. The patient denies nausea denies vomiting reports that she had a bowel movement in the last 24 hours and it was normal the patient denies changes in color of her urine but did notice there were some flecks in the urine today whenever she urinated. Patient reports no prior history of kidney stones reports that she has had a cholecystectomy her left ovary removed and removal of bilateral fallopian tubes. Related Data Home Medications Medication Instructions Recorded Confirmed losartan 100 mg tablet 100 mg PO DAILY 04/30/20 01/06/23 metformin 500 mg tablet,extended 500 mg PO DAILY 04/30/20 01/06/23 release 24 hr albuterol sulfate 90 mcg/actuation 1 inh inhalation PRN PRN Shortness 07/06/20 01/06/23 aerosol inhaler (ProAir HFA) Of Breath insulin degludec 200 unit/mL (3 60 unit subcut HS 07/06/20 01/06/23 mL) subcutaneous pen (Tresiba FlexTouch U-200 insulin) rosuvastatin 10 mg tablet (Crestor) 10 mg PO DAILY 08/09/20 01/06/23 aspirin 81 mg tablet 81 mg PO DAILY 11/12/20 01/06/23 bupropion HCl 150 mg tablet,12 hr 150 mg PO DAILY 04/20/22 01/06/23 sustained-release (Wellbutrin SR) dapagliflozin propanediol 10 mg 10 mg PO DAILY 04/20/22 01/06/23 tablet (Farxiga) dulaglutide 4.5 mg/0.5 mL 4.5 mg subcut WEEKLY 04/20/22 01/06/23 subcutaneous pen injector (Trulicity) ferrous sulfate 325 mg (65 mg 325 mg PO DAILY 04/20/22 01/06/23 iron) tablet valacyclovir 500 mg tablet 500 mg PO BID PRN FLARE UP 01/06/23 01/06/23 (Valtrex) Allergies Allergy/AdvReac Type Severity Reaction Status Date / Time metoclopramide AdvReac Severe PANIC Verified 05/25/23 19:01 ATTACKS ondansetron AdvReac Severe PANIC Verified 05/25/23 19:01 ATTACKS prochlorperazine AdvReac Severe PANIC Verified 05/25/23 19:01 [From Compazine] ATTACKS promethazine AdvReac Severe PANIC Verified 05/25/23 19:01 ATTACKS adhesive tape AdvReac Intermediate Rash Verified 05/25/23 19:01 [facility] Past Medical History Medical History (Updated 05/25/23 @ 20:58 by Steven Becerra MD) BOBBY positive (~2020) Anxiety Bilateral hand pain Chronic kidney disease Colon, diverticulosis Constipation CRP elevated Degenerative joint disease of cervical and lumbar spine Dyslipidemia Empty sella syndrome Fibromyalgia Gastroesophageal reflux disease Hematochezia History of Pettit's palsy Hypertension Insulin dependent type 2 diabetes mellitus Hemoglobin A1c on 11/12/2020 was 7.9%. Kidney cysts Followed by a development technician in [place]. Migraine headache Myalgia Myalgia Polycystic ovarian syndrome Pseudotumor cerebri SOB (shortness of breath) Surgical History Surgical History Delivery by section xs 2 History of laparoscopic cholecystectomy (~2005) History of tubal ligation Family History Family History Father Diabetes mellitus Hypertension Myocardial infarct Heart disease Mother Diabetes mellitus Heart disease Sibling Narcolepsy and cataplexy Legal Guardian No problems noted. Grandparent Breast cancer Social History Social History Social History: The patient is and lives in [place] with her teenage son and daughter. She works for the [employer]. She smoked about a half a pack of cigarettes a
[2023-05-25] MEDS: SODIUM CHLORIDE 0.9% IV 1,000 ML 999 ML IV CONT (20:17)
[2023-05-25] MEDS: MORPHINE SULFATE (*CRX) 4 MG/ML INJ 2 MG IV PUSH (20:17)
[2023-05-25 20:24] LABS: Basophils Percent Auto 0.4 % (0.2-1.2); Eosinophils Absolute Auto 0.2 K/mm3 (0-0.3); Eosinophils Percent Auto 1.4 % (0-4.4); Hematocrit 38.6 % (37.0-47.0); Hemoglobin 12.3 g/dL (12.0-15.0); Immature Granulocyte Absolute 0.04 K/mm3 (0.00-0.031); Immature Granulocyte Percent A 0.4 % (0-0.5); Lymphocytes Absolute Auto 2.42 K/mm3 (0.9-3.2); Lymphocytes Percent Auto 22.7 % (18.3-44.2); Mean Corpuscular HGB Conc 31.9 g/dl (32-36); Mean Corpuscular Hemoglobin 28.8 pg (26-34); Mean Corpuscular Volume 90.4 fl (80-100); Mean Platelet Volume 8.5 fl (7.4-10.4); Monocytes Absolute Auto 0.7 K/mm3 (0.1-0.6); Monocytes Percent Auto 6.6 % (2.6-8.5); Neutrophils Absolute Auto 7.3 K/mm3 (1.3-6.7); Neutrophils Percent Auto 68.5 % (45.5-73.1); Platelet Count Result 263 k/mm3 (150-375); Red Blood Count 4.27 M/mm3 (4.2-5.4); Red Cell Distribution Width 14.3 % (11.5-14.5); White Blood Count 10.7 K/mm3 (4.5-10.0)
[2023-05-25 20:34] LABS: Alanine Aminotransferase 27 U/L (6-35); Albumin Level 4.3 g/dL (3.5-5.1); Alkaline Phosphatase 93 U/L (38-126); Anion Gap 7 mmol/L (8-16); Aspartate Amino Transferase 21 U/L (14-36); Bilirubin,Total 0.4 mg/dL (0.2-1.3); Blood Urea Nitrogen 21 mg/dL (7-17); Calcium 9.5 mg/dL (8.4-10.2); Carbon Dioxide 30 mmol/L (22-30); Chloride 100 mmol/L (98-107); Estimated CRCL calculation 103 ml/min; Estimated Glomerular Filt Rate > 60; Glucose 190 mg/dL (65-110); Lipase 83 U/L (23-300); Potassium 4.4 mmol/L (3.4-5.0); Sodium 137 mmol/L (137-145)
[2023-05-25 20:50] VITALS: BP 151/79; PULSE 89; RESP 20; O2SAT 100
[2023-05-25 21:39] VITALS: BP 143/76; PULSE 94; RESP 16; TEMP 36.6; O2SAT 100
== END 2023-05-25 21:40 | disposition home or self-care (01) ==
PROVIDERS: Emergency Provider Emergency Medicine; PCP Internal Medicine
DX: N12 Tubulo-interstitial nephritis, not specified as acute or chronic (principal); N30.00 Acute cystitis without hematuria; R10.84 Generalized abdominal pain; I12.9 Hypertensive chronic kidney disease with stage 1 through stage 4 chronic kidney disease, or unspecified chronic kidney disease; N18.9 Chronic kidney disease, unspecified; E11.22 Type 2 diabetes mellitus with diabetic chronic kidney disease; E78.5 Hyperlipidemia, unspecified; E28.2 Polycystic ovarian syndrome; K21.9 Gastro-esophageal reflux disease without esophagitis; M47.812 Spondylosis without myelopathy or radiculopathy, cervical region; M47.816 Spondylosis without myelopathy or radiculopathy, lumbar region; Z87.891 Personal history of nicotine dependence; Z90.721 Acquired absence of ovaries, unilateral; Z90.79 Acquired absence of other genital organ(s); Z90.49 Acquired absence of other specified parts of digestive tract; Z79.4 Long term (current) use of insulin; Z79.82 Long term (current) use of aspirin; Z79.84 Long term (current) use of oral hypoglycemic drugs
CPT/HCPCS: 36415; 74176; 80053; 81001; 81025; 83690; 85025; 87077; 87086; 87186; 96361; 96365; 96375; 99284; J0696; J2270; J7030

== ENCOUNTER 2023-10-08 14:26 | Observation (INO) | payer BC, SELFPAY ==
[2023-10-08] VITALS (19 sets, daily range): BP systolic 140–166; BP diastolic 75–87; PULSE 106–126; RESP 15–35; TEMP 36.2–36.9; O2SAT 91–99; BMI 38.9
--- NOTE | ~2023-10-08 | CT_ITS ---
EXAMINATION: CT abdomen pelvis w con DATE: 10/08/2023 17:50 INDICATION: epigastric abdominal pain; TECHNIQUE: Computed tomography (CT) of the abdomen and pelvis was performed with 100 mL Omnipaque-350 intravenous contrast. Automated exposure control and iterative reconstruction technique were employe d. The dose-length product was 1298.82 mGy-cm. COMPARISON: 05/25/2023. FINDINGS: Lower thorax: Unremarkable Liver: Normal. Biliary/Gallbladder: Gallbladder is absent. No bile duct dilation. Pancreas: No mass or duct dilation. Spleen: Normal. Adrenals: 1 cm, indeterminate density left adrenal mass (64 Hounsfield units). Kidneys: No suspicious mass, obstructing stone, or hydronephrosis. Multiple bilateral simple renal cy sts and lesions that are too small to characterize but also most likely represent cysts. GI tract: No small or large bowel dilation. Normal appendix. Mesentery/Peritoneum: No ascites, mass, or free air. Retroperitoneum: No mass. Pelvis: Pelvic organs are within normal limits. Soft Tissues: Soft tissues and body wall unremarkable. Bones: No acute osseous finding. IMPRESSION: No acute abdominopelvic process detected Indeterminate 1 cm left adrenal mass, probably benign, consider 12 month follow-up adrenal CT if ther e is no cancer history. Reviewed, dictated and finalized at location K. ING SUPERVISOR IMPRESSION: No acute abdominopelvic process detected Indeterminate 1 cm left adrenal mass, probably benign, consider 12 month follow -up adrenal CT if there is no cancer history.
--- NOTE | ~2023-10-08 | CT_ITS ---
EXAMINATION: CTA chest PE protocol DATE: 10/08/2023 20:25 INDICATION: elevated HR, elevated Dimer TECHNIQUE: Computed tomography angiography (CTA) of the chest was performed with 100 mL Omnipaque-350 intravenous contrast timed to evaluate the pulmonary arteries. Coronal maximum intensity projection 3D-reconstructions were created by the technologist. The dose-length product (DLP) was 712.98 mGy-cm. Automated exposure control and iterative reconstruction technique were employed. COMPARISON: None. FINDINGS: Lung parenchyma and airways: Dependent atelectasis. Pleura: Unremarkable. Thoracic inlet, axillae and chest wall: Unremarkable. Thoracic aorta: Normal. Mediastinum: Normal. Heart and pericardium: Normal. Coronary artery calcifications: Absent. Upper abdomen: No significant finding. Bones: No acute osseous finding. Pulmonary arteries: Study quality: Degraded by suboptimal bolus, motion, and quantum mottle such that subsegmental and non-occlusive segmental emboli could be missed. No central or occlusive segmental p ulmonary emboli detected. IMPRESSION: Limited exam as detailed above. No CT evidence of central or occlusive segmental pulmonary emboli. No acute intrathoracic process detected. Reviewed, dictated and finalized at location K. FACTURING APPLICATIONS ENGINEER IMPRESSION: Limited exam as detailed above. No CT evidence of central or occlusive segmenta l pulmonary emboli. No acute intrathoracic process detected.
--- NOTE | 2023-10-08 14:34 | ECG_ITS ---
Measurements Intervals [place] Rate: 110 P: 41 MS: 163 QRS: 31 QRSD: 81 T: 85 QT: 350 QTc: 475 Interpretive Statements SINUS TACHYCARDIA MINIMAL Q WAVES- DIFFUSE LEADS ST ELEVATION IN ANT/INF LEADS- CONSIDER PERICARDITIS, ACUTE INFARCT OR EARLY REPOLARIZATION ABNORMALITY ABNORMAL ECG COMPARED TO ECG 11/12/2020 10:57:02 SIN[address]YCARDIA NOW PRESENT ST ELEVATION NOW PRESENT Electronically Signed On 10-08-2023 20:04:25 FIRE CODE INSPECTOR by Ar Valle D.O.
[2023-10-08 14:49] LABS: Basophils Percent Auto 0.3 % (0.2-1.2); Eosinophils Absolute Auto 0.3 K/mm3 (0-0.3); Eosinophils Percent Auto 2.4 % (0-4.4); Hematocrit 44.8 % (37.0-47.0); Hemoglobin 13.9 g/dL (12.0-15.0); Immature Granulocyte Absolute 0.06 K/mm3 (0.00-0.031); Immature Granulocyte Percent A 0.5 % (0-0.5); Lymphocytes Absolute Auto 1.28 K/mm3 (0.9-3.2); Lymphocytes Percent Auto 10.7 % (18.3-44.2); Mean Corpuscular Hemoglobin 28.3 pg (26-34); Mean Corpuscular Volume 91.1 fl (80-100); Mean Platelet Volume 8.6 fl (7.4-10.4); Monocytes Absolute Auto 0.6 K/mm3 (0.1-0.6); Monocytes Percent Auto 5.2 % (2.6-8.5); Neutrophils Absolute Auto 9.6 K/mm3 (1.3-6.7); Neutrophils Percent Auto 80.9 % (45.5-73.1); Platelet Count Result 272 k/mm3 (150-375); Red Blood Count 4.92 M/mm3 (4.2-5.4); Red Cell Distribution Width 13.9 % (11.5-14.5); White Blood Count 11.9 K/mm3 (4.5-10.0)
[2023-10-08 15:03] LABS: Alanine Aminotransferase 28 U/L (6-35); Albumin Level 4.4 g/dL (3.5-5.1); Alkaline Phosphatase 109 U/L (38-126); Anion Gap 13 mmol/L (8-16); Aspartate Amino Transferase 22 U/L (14-36); Bilirubin,Total 0.6 mg/dL (0.2-1.3); Blood Urea Nitrogen 23 mg/dL (7-17); Calcium 9.3 mg/dL (8.4-10.2); Carbon Dioxide 23 mmol/L (22-30); Chloride 103 mmol/L (98-107); Estimated CRCL calculation 79 ml/min; Estimated Glomerular Filt Rate > 60; Glucose 239 mg/dL (65-110); Lipase 428 U/L (23-300); Potassium 4.3 mmol/L (3.4-5.0); Sodium 139 mmol/L (137-145)
--- NOTE | 2023-10-08 16:33 | ED.ABDPAIN ---
HPI - Abdominal Pain General Chief Complaint: Abdominal Pain Stated Complaint: abd pain Time Seen by Provider: 10/08/23 16:30 Source: patient Limitations: no limitations History of Present Illness HPI narrative: This is a 38yo female who presents with complaint of abdominal pain. She states earlier this morning she had what felt like an upset stomach but denies any ellen nausea and has not been vomiting. She then developed epigastric abdominal pain radiating to the RUQ. It is associated with chest pain and she points to her epigastrium and chest. Pain is described as stabbing 7 out of 10 in severity and occuring intermittently. Her LMP was in August but she denies being as she had bilateral salpingectomy and unilateral oopharectomy. She denies any hematuria, dysuria, urgency or frequency. She thought she might have a yeast infection as she has a history of them and has had a thick barrera discharge that is not particularly malodorous. No history of pancreatitis. She states she only had similar pain before when she used to have gallbladder attacks but had a cholecystectomy in 2005. States she used to use marijuana for anxiety but hasn't smoked in awhile; denies marijuana in the past week. LBM was today while in the ED waiting room. She reports it was loose but non bloody. She states she has nearly passed out because of the pain. Denies alcohol. She is on a long acting insulin every evening and she states she took it last night. She also takes her Farxiga pill. Has seen GI doctor previously. Med list also includes omeprazole (not listed below) Related Data Home Medications Medication Instructions Recorded Confirmed losartan 100 mg tablet 100 mg PO DAILY 04/30/20 10/08/23 metformin 500 mg tablet,extended 500 mg PO DAILY 04/30/20 10/08/23 release 24 hr albuterol sulfate 90 mcg/actuation 1 inh inhalation PRN PRN Shortness 07/06/20 10/08/23 aerosol inhaler (ProAir HFA) Of Breath insulin degludec 200 unit/mL (3 40 unit subcut HS 07/06/20 10/08/23 mL) subcutaneous pen (Tresiba FlexTouch U-200 insulin) rosuvastatin 10 mg tablet (Crestor) 10 mg PO DAILY 08/09/20 10/08/23 aspirin 81 mg tablet 81 mg PO DAILY 11/12/20 10/08/23 bupropion HCl 150 mg tablet,12 hr 150 mg PO DAILY 04/20/22 10/08/23 sustained-release (Wellbutrin SR) dapagliflozin propanediol 10 mg 10 mg PO DAILY 04/20/22 10/08/23 tablet (Farxiga) ferrous sulfate 325 mg (65 mg 325 mg PO DAILY 04/20/22 10/08/23 iron) tablet valacyclovir 500 mg tablet 500 mg PO BID PRN FLARE UP 01/06/23 10/08/23 (Valtrex) Allergies Allergy/AdvReac Type Severity Reaction Status Date / Time metoclopramide AdvReac Severe PANIC Verified 05/25/23 19:01 ATTACKS ondansetron AdvReac Severe PANIC Verified 05/25/23 19:01 ATTACKS prochlorperazine AdvReac Severe PANIC Verified 05/25/23 19:01 [From Compazine] ATTACKS promethazine AdvReac Severe PANIC Verified 05/25/23 19:01 ATTACKS adhesive tape AdvReac Intermediate Rash Verified 05/25/23 19:01 PMFSH Past Medical History Medical History (Updated 10/08/23 @ 23:34 by Akilah Damon MD) BOBBY positive (~2020) Anxiety Bilateral hand pain Chronic kidney disease Colon, diverticulosis Complex cyst of left ovary surgical removal Constipation CRP elevated Degenerative joint disease of cervical and lumbar spine Dyslipidemia Empty sella syndrome Fibromyalgia Gastroesophageal reflux disease Hematochezia History of Pettit's palsy Hypertension Insulin dependent type 2 diabetes mellitus Hemoglobin A1c on 11/12/2020 was 7.9%. Kidney cysts Followed by a benzene operator in [place]. Migraine headache Myalgia Myalgia Polycystic ovarian syndrome Pseudotumor cerebri SOB (shortness of breath) Yeast infection Surgical History Surgical History (Updated 10/08/23 @ 23:41 by Akilah Damon MD) Delivery by section xs 2 History of bilateral salpingectomy History of esophagogastroduodenoscopy (EGD)
[2023-10-08] MEDS: SODIUM CHLORIDE 0.9% IV 1,000 ML 999 ML IV CONT ×2 (16:57→20:33)
[2023-10-08] MEDS: MORPHINE SULFATE (*CRX) 4 MG/ML INJ IV PUSH (16:58)
[2023-10-08 17:07] LABS: Troponin I < 0.012 ng/mL (0.000-0.034)
--- NOTE | 2023-10-08 17:10 | ECG_ITS ---
Measurements Intervals [place] Rate: 111 P: 51 CT: 163 QRS: 33 QRSD: 80 T: 65 QT: 347 QTc: 472 Interpretive Statements SINUS TACHYCARDIA POSSIBLE LEFT ATRIAL ENLARGEMENT MINIMAL Q WAVES- DIFFUSE LEADS ABNORMAL ECG COMPARED TO ECG 10/08/2023 14:42:10 ST ELEVATION RESOLVED Electronically Signed On 10-08-2023 20:05:01 OFFICE CHAIR ASSEMBLER by Ar Valle D.O.
[2023-10-08 17:30] LABS: Influenza A QL RT-PCR Negative (Negative); Influenza B QL RT-PCR Negative (Negative); SARS-CoV-2 RNA PCR Negative (Negative)
[2023-10-08 18:32] LABS: D Dimer 0.53 ug/mL (<0.48)
[2023-10-08 18:46] LABS: Troponin I < 0.012 ng/mL (0.000-0.034)
--- NOTE | 2023-10-08 19:24 | PC.NURSE ---
This RN took patient report from HARDIK Brooks.This RN assumed care of patient.
[2023-10-08 19:45] LABS: Appearance Urine Cloudy (Clear); Bacteria Urine Rare /hpf; Bilirubin Urine Negative (Negative); Blood Urine Negative (Negative); Budding Yeast Urine Present /hpf; Color Urine Yellow (Yellow); Glucose Urine UA 3+ mg/dL (Negative); Ketones Urine 1+ mg/dL (Negative); Leukocyte Esterase Ur Negative LEU/UL (Negative); Need Manual Microscopic Reviewed; Nitrate Urine Negative (Negative); Non Pathogenic Casts 0-2; Protein Urine 1+ mg/dL (Negative); RBC Urine 0-2 /hpf (0-2); Squamous Epithelial Cell Urine Occasional /hpf (Few); Urobilinogen Urine 0.2 mg/dL (<2.0); pH Urine 5.5 (5.0-9.0)
[2023-10-08 19:47] LABS: Specific Grav Ur 1.044 (1.001-1.035)
[2023-10-08 19:48] LABS: Add Urine Microscopic? YES
[2023-10-08] MEDS: ACETAMINOPHEN 500 MG TABLET 1000 MG PO (20:06)
[2023-10-08] MEDS: DICYCLOMINE HCL 10 MG CAPSULE PO (21:23)
--- NOTE | 2023-10-08 22:08 | PM.IMHP ---
H&P: HPI History of Present Illness Date/Time: 10/08/23 22:08 Chief Complaint: n/v/abd Narrative: This is a 38-year-old female with past medical history significant for insulin-dependent diabetes mellitus, GERD, fibromyalgia, obesity, dyslipidemia. Patient presents to the emergency room due to sudden onset epigastric pain with nausea and vomiting in the morning. According to patient she has been in her usual state of health up until this point denies hematemesis, coffee-ground emesis, hematochezia, melena, no changes in bowel habits, no weight loss, no dyspepsia,. Patient has had several vomits of bile. Has had some diaphoresis and night sweats. Denies any pain or burning with urination. Pain is localized to the epigastric area nonradiating. In emergency room patient was ruled out for acute pulmonary embolism. A urinalysis was significant for numerous WBCs present. CT of abdomen and pelvis was reported as: EXAMINATION: CT abdomen pelvis w con DATE: 10/08/2023 17:50 INDICATION: epigastric abdominal pain; TECHNIQUE: Computed tomography (CT) of the abdomen and pelvis was performed with 100 mL Omnipaque-350 intravenous contrast. Automated exposure control and iterative reconstruction technique were employed. The dose-length product was 1298.82 mGy-cm. COMPARISON: 05/25/2023. FINDINGS: Lower thorax: Unremarkable Liver: Normal.? Biliary/Gallbladder: Gallbladder is absent. No bile duct dilation. Pancreas: No mass or duct dilation. Spleen: Normal. Adrenals: 1 cm, indeterminate density left adrenal mass (64 Hounsfield units). Kidneys: No suspicious mass, obstructing stone, or hydronephrosis. Multiple bilateral simple renal cysts and lesions that are too small to characterize but also most likely represent cysts. GI tract: No small or large bowel dilation. Normal appendix. Mesentery/Peritoneum: No ascites, mass, or free air. Retroperitoneum: No mass. Pelvis: Pelvic organs are within normal limits. Soft Tissues: Soft tissues and body wall unremarkable. Bones:? No acute osseous finding. IMPRESSION: No acute abdominopelvic process detected Indeterminate 1 cm left adrenal mass, probably benign, consider 12 month follow-up adrenal CT if there is no cancer history. EXAMINATION: CTA chest PE protocol DATE: 10/08/2023 20:25 INDICATION: elevated HR, elevated Dimer TECHNIQUE: Computed tomography angiography (CTA) of the chest was performed with 100 mL Omnipaque-350 intravenous contrast timed to evaluate the pulmonary arteries. Coronal maximum intensity projection 3D-reconstructions were created by the technologist. The dose-length product (DLP) was 712.98 mGy-cm. Automated exposure control and iterative reconstruction technique were employed. COMPARISON: None. ? FINDINGS:? Lung parenchyma and airways: Dependent atelectasis. Pleura: Unremarkable. Thoracic inlet, axillae and chest wall: Unremarkable. Thoracic aorta: Normal. Mediastinum: Normal. Heart and pericardium: Normal. Coronary artery calcifications: Absent. Upper abdomen: No significant finding. Bones: No acute osseous finding. Pulmonary arteries: Study quality: Degraded by suboptimal bolus, motion, and quantum mottle such that subsegmental and non-occlusive segmental emboli could be missed. No central or occlusive segmental pulmonary emboli detected. IMPRESSION: Limited exam as detailed above. No CT evidence of central or occlusive segmental pulmonary emboli. No acute intrathoracic process detected. Patient has been admitted for further evaluation management and treatment. Review of Systems Review of Systems: Epigastric pain, nausea, vomiting. Constitutional: Constitutional: Denies chills, Denies fatigue, Denies fever(s), Denies malaise, Reports night sweats, Denies weakness and Denies weight loss Eyes: Eyes: Denies change in vision ENT: Denies dysphagia, Denies vertigo, Denies dizziness and Denies odynophagia Cardiovascular: Cardiovascular:
--- NOTE | 2023-10-08 22:44 | ADMGEN ---
This patient, Kylee Guo, was admitted to Medical Room 250-01. Patient/family oriented to hospital policies and general routines including ID bracelet, bed and alarms, visiting hours, pain management, procedures, bathroom and other care routines, personal items, smoking policy, room service/diet, and visiting hours. Information on how to activate the Rapid Response Team has been discussed. Patient/Family are encouraged to report perceived risks to care and to ask questions if they do not understand what they are told or what they should do.
[2023-10-08] MEDS: LACTATED RINGERS 1,000 ML 125 ML IV CONT (23:00)
[2023-10-08] MEDS: FLUCONAZOLE 150 MG TABLET PO (23:37)
[2023-10-09] MEDS: HYDROmorphone HCL INJ (*CRX) 1 MG/ML SYR IV PUSH (00:10)
[2023-10-09] MEDS: BELLADONNA ALK/PHENOB ELIX 10 ML, MAG HYDROX/ALUMINUM HYD/SIMETH 30 ML, LIDOCAINE HCL 2... PO (01:02)
[2023-10-09 03:54] LABS: Glucose Point of Care 198 mg/dl (65-105)
[2023-10-09 05:56] VITALS: BP 163/77; PULSE 85; RESP 18; TEMP 36.5; O2SAT 100
[2023-10-09 08:37] VITALS: BP 158/91; PULSE 102; O2SAT 98
[2023-10-09] MEDS: LOSARTAN POTASSIUM 100 MG TABLET PO (08:39)
[2023-10-09] MEDS: PANTOPRAZOLE SODIUM IV 40 MG VIAL IV PUSH ×2 (08:40→21:54)
[2023-10-09] MEDS: FAMOTIDINE 20 MG/2 ML VIAL IV PUSH ×2 (08:41→21:54)
[2023-10-09] MEDS: ENOXAPARIN 40 MG/0.4 ML SYRINGE SUB-Q (08:41)
[2023-10-09] MEDS: LACTATED RINGERS 1,000 ML 125 ML IV CONT ×2 (08:43→22:05)
[2023-10-09] MEDS: ACETAMINOPHEN 325 MG TABLET 650 MG PO ×2 (08:58→14:42)
--- NOTE | 2023-10-09 12:03 | WPDGICN ---
Assessment and Plan Assessment and plan (1) N&V (nausea and vomiting): Code(s): R11.2 - Nausea with vomiting, unspecified Status: Acute Assessment and Plan: it seems that has improved ? gastroenteritis, dysmotility (h/o DM- never had GES), esophagitis (known history but better with ppi), from UTI noted mild elevated lipase but normal lft and CT scan EGD in am (2) Epigastric abdominal pain of unknown etiology: Code(s): R10.13 - Epigastric pain Status: Acute Assessment and Plan: tolerating liquid diet EGD in am to reassess (h/o esophagitis) (3) UTI (urinary tract infection): Code(s): N39.0 - Urinary tract infection, site not specified Status: Acute Assessment and Plan: on treatment (4) Insulin dependent type 2 diabetes mellitus: Code(s): E11.9 - Type 2 diabetes mellitus without complications; Z79.4 - terminal manager (current) use of insulin Status: Acute Assessment and Plan: if persistent symptom consider GES as outpatient (5) Gastroesophageal reflux disease: Code(s): K21.9 - Gastro-esophageal reflux disease without esophagitis Status: Acute (6) Constipation: Code(s): K59.00 - Constipation, unspecified Status: Acute Assessment and Plan: not longer using linzess GI Consult Note Consult date/time: 10/09/23 12:03 Reason for consult: n/v, epigastric pain HPI: Kylee Guo is a 38 year old female with past medical history significant for insulin-dependent diabetes mellitus, GERD (12/2022 EGD showed grade II erosive esophagitis, small HH and erosive gastritis, no h pylori- she has been doing ok with PPI daily), fibromyalgia, obesity, dyslipidemia.? She came to the emergency room due to sudden onset epigastric pain with nausea and vomiting yesterday, initially thought could have been GI bug but denies fever but had some chills, no diarrhea or sick contacts (she leaves alone and works from home). She had several vomits of bile yesterday, now feeling better. CTA chest negative for pulmonary embolism, had 1 cm left adrenal mass, probably benign, normal pancreas, absent GB.? A urinalysis was significant for numerous WBCs present and started on rocephin. She also had history of constipation but lately has been better, not longer using linzess, colonoscopy 2021 unremarkable, only mild left sided diverticulosis Review of Systems Review of Systems: Epigastric pain, nausea, vomiting. Constitutional: Constitutional: Denies fever(s), Denies malaise, Reports night sweats, Denies weakness and Denies weight loss Eyes: Eyes: Denies change in vision ENT: Denies dysphagia, Denies vertigo and Denies dizziness Cardiovascular: Cardiovascular: Denies chest pain and Denies palpitations Respiratory: Respiratory: Denies cough and Denies dyspnea Gastrointestinal: Gastrointestinal: Reports abdominal pain, Denies melena, Denies coffee ground emesis, Denies diarrhea, Reports nausea and Reports vomiting Genitourinary: Genitourinary: Denies dysuria Musculoskeletal: Musculoskeletal: Denies back pain and Denies joint swelling Integumentary/Breasts: Skin/Breast: Denies rash Neurologic: Denies vertigo, Denies dizziness and Denies focal weakness Psychiatric: Psychiatric: Reports no additional psychiatric complaints and Reports as per HPI Endocrine: Endocrine: Denies cold intolerance and Denies fatigue Hematologic/Lymphatic: Hematologic/Lymphatic: Reports no additional hematologic/lymphatic complaints and Reports as per HPI Allergic/Immunologic: Allergic/Immunologic: Reports no additional allergic/immunologic complaints and Reports as per HPI PMF Past Medical History Medical History (Updated 10/09/23 @ 00:18 by Tala Rodriguez MD) BOBBY positive (~2020) Anxiety Bilateral hand pain Chronic kidney disease Colon, diverticulosis Complex cyst of left ovary surgical removal Constipation CRP elevated Degenerative joint disease of cervi
[2023-10-09 12:26] LABS: Glucose Point of Care 127 mg/dl (65-105)
[2023-10-09 12:33] VITALS: O2SAT 98
--- NOTE | 2023-10-09 13:22 | PM.IMPN ---
Progress Note: A&P Assessment and Plan (1) N&V (nausea and vomiting): Code(s): R11.2 - Nausea with vomiting, unspecified Status: Acute Assessment and Plan: CT abdomen and pelvis shows- No acute abdominopelvic process + 1 cm left adrenal mass, probably benign, consider 12 month follow-up adrenal CT if there is no cancer history. continue to hydrate and continue empiric IV ABX Continue antiemetics Pt seen by GI no acute GI concern continue to treat for UTI with IV rocephin Plan dc alfredo once UC are back (2) UTI (urinary tract infection): Code(s): N39.0 - Urinary tract infection, site not specified Status: Acute Assessment and Plan: Continue iv rocephin and fluids follow UC continue to treat for UTI Pt does not look like she has renal stones or pyelonephritis as CT is negative (3) Insulin dependent type 2 diabetes mellitus: Code(s): E11.9 - Type 2 diabetes mellitus without complications; Z79.4 - collar tacker (current) use of insulin Status: Acute Assessment and Plan: Accuchecks SSI Pt can have DM diet continue pts lantus dosing Plan h/o of GERD continue PPI h/o of constipation continue laxatives Subjective Date/time seen: 10/09/23 13:22 Interval history: 38-year-old female with past medical history significant for insulin-dependent diabetes mellitus, GERD, fibromyalgia, obesity, dyslipidemia.? Patient presents to the emergency room due to sudden onset epigastric pain with nausea and vomiting in the morning. UA is positive pt states she has several UTI s in the past and sees nephrology for CKD. X Review of Systems Review of Systems: Nausea is better Exam Const: General: comfortable, no acute distress, well developed, alert, awake, average body habitus and obese Nutritional Appearance: overweight Orientation/consciousness: oriented to person HENMT: Head: normal to inspection Resp: Effort & Inspection: normal respiratory effort and able to speak in complete sentences Auscultation: clear to auscultation bilaterally Cardio: Jugular venous distension: no JVD Rate: regular rate Rhythm: regular rhythm Heart sounds: S1 normal heart sound present and S2 normal heart sound present GI: Inspection: Pannus present and obesity GI Palp: No abdominal tenderness, No Guarding due to palpation present (GI) and No Hepatomegaly present Auscultation: normal bowel sounds Skin: Rashes: no rashes Wounds: no wounds Neuro: General: patient oriented x3 and CN's II-XI intact bilaterally Cranial nerves: Yes CN's II-XII intact bilaterally and Yes Equal, round and reactive pupils present Cognition (Neuro): normal cognition Speech: normal speech Gait exam (Neuro): Normal gait present Motor exam (neuro): 5/5 motor strength present throughout Sensory Exam: No Sensory deficit (Neuro) Extrem: General: normal to inspection, full ROM, no joint enlargement and no pedal edema Objective Data Vital Signs Vital Signs: Vital Signs - 24 hr 10/08/23 14:26 10/08/23 15:41 10/08/23 16:31 Temperature 36.2 C L Pulse Rate 112 H 110 H 125 H Respiratory Rate 22 H 15 21 H Blood Pressure 166/87 H 152/87 H 140/77 Pulse Oximetry 99 96 94 Oxygen Delivery Room Air 10/08/23 16:33 10/08/23 16:45 10/08/23 16:46 Temperature Pulse Rate 126 H 110 H 107 H Respiratory Rate 28 H 25 H 19 Blood Pressure 144/86 H Pulse Oximetry 97 99 98 Oxygen Delivery 10/08/23 16:47 10/08/23 17:58 10/08/23 18:00 Temperature Pulse Rate 106 H 112 H 111 H Respiratory Rate 19 21 H 21 H Blood Pressure Pulse Oximetry 97 99 97 Oxygen Delivery 10/08/23 18:01 10/08/23 18:02 10/08/23 19:18 Temperature Pulse Rate 110 H 112 H 120 H Respiratory Rate 20 21 H 22 H Blood Pressure 155/75 H Pulse Oximetry 99 98 98 Oxygen Delivery 10/08/23 19:30 10/08/23 19:45 10/08/23 20:20 Temperature Pulse Rate 116 H 120 H 122 H Respiratory Rate 21 H 20 35 H Blood Pressure
[2023-10-09 14:00] VITALS: BP 141/84; PULSE 91; RESP 16; TEMP 36.6; O2SAT 99
[2023-10-09] MEDS: KETOROLAC 10 MG TABLET PO (17:14)
[2023-10-09 18:22] LABS: Glucose Point of Care 154 mg/dl (65-105)
[2023-10-09 19:43] VITALS: BP 143/73; PULSE 99; RESP 18; TEMP 36.7; O2SAT 98
[2023-10-09 21:48] LABS: Glucose Point of Care 219 mg/dl (65-105)
[2023-10-09] MEDS: INSULIN GLARGINE (*BKC) 100 UNITS/ML 40 UNITS SUB-Q (21:54)
[2023-10-10] VITALS (7 sets, daily range): BP systolic 135–163; BP diastolic 80–94; PULSE 75–99; RESP 14–20; TEMP 36.1–36.8; O2SAT 96–100
[2023-10-10 06:04] LABS: Glucose Point of Care 129 mg/dl (65-105)
[2023-10-10 08:42] LABS: Glucose Point of Care 115 mg/dl (65-105)
--- NOTE | 2023-10-10 08:51 | PM.DS ---
DS: Admitting Diagnosis Discharge Date 10/10/23 Admitting Diagnosis Epigastric abdominal pain Nausea & vomiting UTI GERD Fibromyalgia IDDM type 2 DS: Discharge Diagnosis Discharge Diagnosis (1) N&V (nausea and vomiting): Code(s): R11.2 - Nausea with vomiting, unspecified Status: Acute (2) UTI (urinary tract infection): Code(s): N39.0 - Urinary tract infection, site not specified Status: Acute (3) Insulin dependent type 2 diabetes mellitus: Code(s): E11.9 - Type 2 diabetes mellitus without complications; Z79.4 - long term care pharmacist (current) use of insulin Status: Acute DS: Summary Hospital Course Reason for hospitalization: UTI Hospital Course: This is a 38 year old female who presented to the hospital on 10/08/23 with complaints of sudden epigastric pain with nausea and vomiting. Work up in the hospital included a CT of the abdomen and pelvis which revealed an indeterminate 1cm left adrenal mass, no acute abdominopelvic process detected. CTA of the chest was negative for PE, no acute intra thoracic process detected. GI was consulted. Improvement in her hiatal hernia and gastritis from a previous study. UA revealed ur specific gravity 1.044, 1+ protein, 3+ glucose, 1+ ketones, many urine WBC's, urine yeast. On examination today patient was alert and oriented x3, lying in the bed. Her vital signs are stable, she is on room air, she has been afebrile. She reports epigastric pain which is a little bit better today than it was yesterday. Patient states that the pain yesterday was similar to when she had gallbladder attacks in the past however she has had her gallbladder removed. Her lipase level on arrival was 428. She denies any nausea, vomiting, diarrhea, fever, chills, headache, shortness of breath, chest pain. Labs today reveal white blood cell count 4.6, hemoglobin 11.9, hematocrit 39.1, sodium 138, potassium 3.6, BUN 8, creatinine 0.6, carbon dioxide 24, liver enzymes are normal, alk-phos is 72, lipase 51, blood sugars ranging 112-115, hemoglobin A1C 9.2 which is elevated from previous. UC was sent and resulted as Group B strep. Patient was on Rocephin and now changed to oral Cefdinir. She is stable for discharge. She will finish a 5 day course and follow up with PCP in 1 week. Status at Discharge Cognitive/behavioral status at discharge: Alert and oriented x3 Functional status at discharge: independent ambulation Overall status at discharge: patient is progressing back to baseline Time Spent with Patient Time attestation: Total time spent providing and/or coordinating discharge services: Time spent: Greater than 30 minutes Exam Narrative: General: In no acute distress, well nourished Head: atraumatic, no encephalopathy Eyes: EOMI, PERRLA, sclera clear ENT: moist mucous membranes, nasal passages clear Neck: supple, no JVD, no adenopathy, trachea midline Cardiac: Normal S1 and S2. No murmur, gallops or friction rubs, peripheral pulses intact. Respiratory: Lungs clear to auscultation, no adventitious lung sounds Gastrointestinal: soft, non-distended, non-tender, normoactive bowel sounds. Reporting epigastric pain : voiding without difficulty. Extremities: moves all extremities well, no edema, good ROM, strength 5/5 Skin: clean, dry, intact. No wounds or lesions. Neuro: Alert and oriented x4, cranial nerves intact, no neuro deficits. Psych: normal mood, normal affect, interactive DS: Data Data Completed and Pending Completed studies during hospitalization: CTA of chest CT Abdomen/pelvis Pending studies at discharge: none Labs on day of discharge: Labs from last 24 hours 10/10/23 10/10/23 10/09/23 08:26 05:58 21:46 POC Capillary Glucose 115 H 129 H 219 H 10/09/23 10/09/23 18:12 12:18 POC Capillary Glucose 154 H 127 H Imaging Radiologist's impression: EXAMINATION: CT abdomen pelvis w con DATE: 10/08/2023 17:50 INDICATION: epigastric abdominal pain;
[2023-10-10] MEDS: FAMOTIDINE 20 MG/2 ML VIAL IV PUSH (09:25)
[2023-10-10] MEDS: PANTOPRAZOLE SODIUM IV 40 MG VIAL IV PUSH (09:26)
[2023-10-10] MEDS: ACETAMINOPHEN 325 MG TABLET 650 MG PO (09:39)
--- NOTE | 2023-10-10 10:00 | PC.NURSE ---
To GI Lab per livia, IV RAC Report given to Carol DYE.
[2023-10-10] MEDS: LACTATED RINGERS 1,000 ML 150 ML IV CONT (10:05)
--- NOTE | 2023-10-10 10:42 | WPDANESEPPF ---
Anes - Initial Pre Proc Eval Procedure: Operation Date: 10/10/23 15:30 Proposed Procedures p Esophagogastroduodenoscopy - Salo Tuttle MD Date/Time: 10/10/23 10:42 Surgeon: Tala Rodriguez MD Pre Op Diagnosis: intractable abdominal pain, elevated lipase Patient Data Age: 38 Gender: F Height: 1.63 m Weight: 103 kg Last Vital Signs Temp 98.2 F 10/10/23 10:02 Pulse 91 10/10/23 10:02 Resp 18 10/10/23 10:02 BP 163/90 H 10/10/23 10:02 Pulse Ox 100 10/10/23 10:02 O2 Del Method Room Air 10/10/23 10:02 Allergies Allergy/AdvReac Type Severity Reaction Status Date / Time metoclopramide AdvReac Severe PANIC Verified 05/25/23 19:01 ATTACKS ondansetron AdvReac Severe PANIC Verified 05/25/23 19:01 ATTACKS prochlorperazine AdvReac Severe PANIC Verified 05/25/23 19:01 [From Compazine] ATTACKS promethazine AdvReac Severe PANIC Verified 05/25/23 19:01 ATTACKS adhesive tape AdvReac Intermediate Rash Verified 05/25/23 19:01 Home Medications Medication Instructions Recorded Confirmed Type losartan 100 mg tablet 100 mg PO DAILY 04/30/20 10/08/23 History metformin 500 mg tablet,extended 500 mg PO DAILY 04/30/20 10/08/23 History release 24 hr albuterol sulfate 90 mcg/actuation 1 inh inhalation PRN PRN Shortness 07/06/20 10/08/23 History aerosol inhaler (ProAir HFA) Of Breath insulin degludec 200 unit/mL (3 40 unit subcut HS 07/06/20 10/08/23 History mL) subcutaneous pen (Tresiba FlexTouch U-200 insulin) nitroglycerin 0.4 mg sublingual 0.4 mg sublingual Q5MIN PRN Chest 07/07/20 10/08/23 Rx tablet (Nitrostat) Pain #20 tabs rosuvastatin 10 mg tablet (Crestor) 10 mg PO DAILY 08/09/20 10/08/23 History aspirin 81 mg tablet 81 mg PO DAILY 11/12/20 10/08/23 History bupropion HCl 150 mg tablet,12 hr 150 mg PO DAILY 04/20/22 10/08/23 History sustained-release (Wellbutrin SR) dapagliflozin propanediol 10 mg 10 mg PO DAILY 04/20/22 10/08/23 History tablet (Farxiga) ferrous sulfate 325 mg (65 mg 325 mg PO DAILY 04/20/22 10/08/23 History iron) tablet valacyclovir 500 mg tablet 500 mg PO BID PRN FLARE UP 01/06/23 10/08/23 History (Valtrex) omeprazole 20 mg capsule,delayed 20 mg PO DAILY #30 caps 01/13/23 10/08/23 Rx release Laboratory Tests 10/09/23 10/09/23 10/09/23 12:18 18:12 21:46 POC Capillary Glucose 127 H mg/dl 154 H mg/dl 219 H mg/dl (65-105) (65-105) (65-105) 10/10/23 10/10/23 05:58 08:26 POC Capillary Glucose 129 H mg/dl 115 H mg/dl (65-105) (65-105) Patient hx anesthesia problems: none Family hx anesthesia problems: none Results Review: All pre-operative results and documents have been reviewed as part of the pre-operative evaluation. [facility] Past Medical History Medical History (Updated 10/09/23 @ 00:18 by Tala Rodriguez MD) BOBBY positive (~2020) Anxiety Bilateral hand pain Chronic kidney disease Colon, diverticulosis Complex cyst of left ovary surgical removal Constipation CRP elevated Degenerative joint disease of cervical and lumbar spine Dyslipidemia Empty sella syndrome Fibromyalgia Gastroesophageal reflux disease Hematochezia History of Pettit's palsy Hypertension Insulin dependent type 2 diabetes mellitus Hemoglobin A1c on 11/12/2020 was 7.9%. 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 Migraine headache Myalgia Myalgia Polycystic ovarian syndrome Pseudotumor cerebri SOB (shortness of breath) Yeast infection Surgical History Surgical History (Updated 10/08/23 @ 23:41 by Akilah Damon MD) Delivery by section xs 2 History of bilateral salpingectomy History of esophagogastroduodenoscopy (EGD) History of laparoscopic cholecystectomy (~2005) History of tubal ligation History of unilateral oophorectomy Family History Family History Father Diabetes mellitus Hypertension
--- NOTE | 2023-10-10 11:40 | PC.NURSE ---
Returned from GI Lab. Report received from Hilda DYE
[2023-10-10 11:55] LABS: Glucose Point of Care 112 mg/dl (65-105)
[2023-10-10 12:47] LABS: Hematocrit 39.1 % (37.0-47.0); Hemoglobin 11.9 g/dL (12.0-15.0); Mean Corpuscular HGB Conc 30.4 g/dl (32-36); Mean Corpuscular Hemoglobin 28.1 pg (26-34); Mean Corpuscular Volume 92.4 fl (80-100); Mean Platelet Volume 8.8 fl (7.4-10.4); Platelet Count Result 202 k/mm3 (150-375); Red Blood Count 4.23 M/mm3 (4.2-5.4); Red Cell Distribution Width 14.1 % (11.5-14.5); White Blood Count 4.6 K/mm3 (4.5-10.0)
[2023-10-10 12:54] LABS: Lipase 51 U/L (23-300)
[2023-10-10 12:56] LABS: Alanine Aminotransferase 29 U/L (6-35); Albumin Level 3.8 g/dL (3.5-5.1); Alkaline Phosphatase 72 U/L (38-126); Anion Gap 9 mmol/L (8-16); Aspartate Amino Transferase 28 U/L (14-36); Bilirubin,Total 0.4 mg/dL (0.2-1.3); Blood Urea Nitrogen 8 mg/dL (7-17); Calcium 8.6 mg/dL (8.4-10.2); Carbon Dioxide 24 mmol/L (22-30); Chloride 105 mmol/L (98-107); Estimated CRCL calculation 124 ml/min; Estimated Glomerular Filt Rate > 60; Glucose 115 mg/dL (65-110); Potassium 3.6 mmol/L (3.4-5.0); Sodium 138 mmol/L (137-145)
[2023-10-10] MEDS: LOSARTAN POTASSIUM 100 MG TABLET PO (13:00)
[2023-10-10] MEDS: FERROUS SULFATE 325 MG TABLET DR BY MOUTH (13:00)
[2023-10-10] MEDS: buPROPion HCL XL (24 HR) 150 MG TABCR PO (13:00)
[2023-10-10 16:12] LABS: Hemoglobin A1C 9.2 % (<5.7)
--- NOTE | 2023-10-11 13:53 | WPDANESPN ---
Anes - Prog Note Post-Op Date/Time: 10/11/23 13:53 Cardiovascular status: normal Respiratory status: normal Airway patency: baseline Mental status: baseline Post-Op hydration status: normal Vital Signs: Last Vital Signs Temp 96.9 F L 10/10/23 13:52 Pulse 99 10/10/23 13:52 Resp 14 10/10/23 13:52 BP 140/80 10/10/23 13:52 Pulse Ox 99 10/10/23 13:52 O2 Del Method Room Air 10/10/23 11:39 Pain Score (VAS): 0/10 Laboratory Tests 10/10/23 12:32 10/10/23 12:32 10/10/23 12:35 Hemoglobin A1c 9.2 H Post-procedural complaints: none Patient Feedback: Patient satisfied with anesthetic care.
== END 2023-10-10 15:28 | disposition home or self-care (01) ==
LOC: ANHED 22:02 → ANH2MED 10-09 12:03
PROVIDERS: Internal Medicine Gastroenterology; Nurse Practitioner Acute Care; Admitting Provider Internal Medicine; Emergency Provider Student in an Organized Health Care Education/Training Program; PCP Internal Medicine; Visit Provider Student in an Organized Health Care Education/Training Program
PROC: 0DJ08ZZ Inspection of Upper Intestinal Tract, Via Natural or Artificial Opening Endoscopic (ICD-10-PCS; CPT 43235; principal; 2023-10-10 15:30)
DX: K44.9 Diaphragmatic hernia without obstruction or gangrene (principal); K29.70 Gastritis, unspecified, without bleeding; N39.0 Urinary tract infection, site not specified; B95.1 Streptococcus, group B, as the cause of diseases classified elsewhere; I12.9 Hypertensive chronic kidney disease with stage 1 through stage 4 chronic kidney disease, or unspecified chronic kidney disease; E11.22 Type 2 diabetes mellitus with diabetic chronic kidney disease; N18.9 Chronic kidney disease, unspecified; R00.0 Tachycardia, unspecified; R06.02 Shortness of breath; M79.7 Fibromyalgia; F41.9 Anxiety disorder, unspecified; K21.9 Gastro-esophageal reflux disease without esophagitis; K59.00 Constipation, unspecified; E66.9 Obesity, unspecified; Z68.39 Body mass index [BMI] 39.0-39.9, adult; E78.5 Hyperlipidemia, unspecified; Z87.891 Personal history of nicotine dependence; F10.90 Alcohol use, unspecified, uncomplicated; Z79.4 Long term (current) use of insulin; Z79.84 Long term (current) use of oral hypoglycemic drugs; Z79.51 Long term (current) use of inhaled steroids; Z79.82 Long term (current) use of aspirin; Z79.899 Other long term (current) drug therapy
CPT/HCPCS: 43239; 36415; 71275; 74177; 80053; 81001; 82948; 83036; 83690; 84484; 85025; 85027; 85380; 87086; 87088; 87147; 87636; 88305; 93005; 96361; 96374; 99285; A9270; C9113; G0378; J0696; J1170; J1650; J1815; J2001; J2270; J2704; J7030; J7120; Q9967

== ENCOUNTER 2023-10-12 08:39 | Emergency (ER) | payer BC, SELFPAY ==
[2023-10-12 08:42] VITALS: BP 177/96; PULSE 87; RESP 18; TEMP 36.1; O2SAT 100
--- NOTE | 2023-10-12 09:10 | ED.NECK ---
HPI - Neck Pain/Injury General Chief Complaint: Neck Pain/Injury Stated Complaint: L neck pain Time Seen by Provider: 10/12/23 09:09 Source: patient Mode of arrival: ambulatory Limitations: no limitations History of Present Illness HPI Narrative: patient is a very pleasant 38-year-old female who presents emergency department today ambulatory with a steady gait with her daughter for evaluation of pain to the left neck/upper back. Patient states that had the pain started when she was admitted to hospital on Monday for abdominal issues. She states that it has continued to worsen since then. the pain has gotten so bad she can't sleep. the pain goes from the left side of neck all the way to the shoulder and upper left side of back/trapezius. she has had tingling/shooting pain down the left arm. she feels like there is a pinched nerve. There is decreased ROM to the neck due to tightness/pain. she did not fall or have any traumatic injury.denies fever, chills, history of cervical surgeries, headache, dizziness, weakness to LUE/LLE, loss of control of bowels/bladder, numbness to groin, body-aches, fatigue. Her daughter will be driving her home from here. she denies chance of . she has tried otc Tylenol, ibuprofen, heat. Related Data Home Medications Medication Instructions Recorded Confirmed losartan 100 mg tablet 100 mg PO DAILY 04/30/20 10/08/23 metformin 500 mg tablet,extended 500 mg PO DAILY 04/30/20 10/08/23 release 24 hr albuterol sulfate 90 mcg/actuation 1 inh inhalation PRN PRN Shortness 07/06/20 10/08/23 aerosol inhaler (ProAir HFA) Of Breath insulin degludec 200 unit/mL (3 40 unit subcut HS 07/06/20 10/08/23 mL) subcutaneous pen (Tresiba FlexTouch U-200 insulin) rosuvastatin 10 mg tablet (Crestor) 10 mg PO DAILY 08/09/20 10/08/23 aspirin 81 mg tablet 81 mg PO DAILY 11/12/20 10/08/23 bupropion HCl 150 mg tablet,12 hr 150 mg PO DAILY 04/20/22 10/08/23 sustained-release (Wellbutrin SR) dapagliflozin propanediol 10 mg 10 mg PO DAILY 04/20/22 10/08/23 tablet (Farxiga) ferrous sulfate 325 mg (65 mg 325 mg PO DAILY 04/20/22 10/08/23 iron) tablet valacyclovir 500 mg tablet 500 mg PO BID PRN FLARE UP 01/06/23 10/08/23 (Valtrex) Allergies Allergy/AdvReac Type Severity Reaction Status Date / Time metoclopramide AdvReac Severe PANIC Verified 05/25/23 19:01 ATTACKS ondansetron AdvReac Severe PANIC Verified 05/25/23 19:01 ATTACKS prochlorperazine AdvReac Severe PANIC Verified 05/25/23 19:01 [From Compazine] ATTACKS promethazine AdvReac Severe PANIC Verified 05/25/23 19:01 ATTACKS adhesive tape AdvReac Intermediate Rash Verified 05/25/23 19:01 Review of Systems Review of Systems: CONSTITUTIONAL: Denies fever, chills, or sweats. EYES: Denies visual changes, redness, or discharge. ENT: Denies rhinorrhea, congestion, sore throat, or otalgia. CARDIOVASCULAR: Denies chest pain, palpitations, or edema. RESPIRATORY: Denies cough or dyspnea. GASTROINTESTINAL: Denies abdominal pain, nausea, vomiting, or diarrhea. GENITOURINARY: Denies dysuria or hematuria. SKIN: Denies rash or itching. MUSCULOSKELETAL: + left sided neck pain. Denies back pain, joint pain, or myalgia. NEUROLOGIC: tingling/numbness down left shoulder/arm starting in neck. Denies headache, or weakness. PSYCHIATRIC: Denies anxiety or depression. All systems reviewed & are unremarkable except as noted in HPI and below PMFSH Past Medical History Medical History BOBBY positive (~2020) Anxiety Bilateral hand pain Chronic kidney disease Colon, diverticulosis Complex cyst of left ovary surgical removal Constipation CRP elevated Degenerative joint disease of cervical and lumbar spine Dyslipidemia Empty sella syndrome Fibromyalgia Gastroesophageal reflux disease Hematochezia History of Pettit's palsy Hypertension Insulin dependent type 2 diabetes mellitus Hemoglobin A1c on 12
[2023-10-12] MEDS: KETOROLAC (*BKC) 60 MG/2 ML VIAL 30 MG IM (09:47)
[2023-10-12] MEDS: diazePAM INJ (*CRX) 10 MG/2 ML SYRINGE 5 MG IM (09:48)
[2023-10-12] MEDS: predniSONE 20 MG TABLET 60 MG PO (09:48)
[2023-10-12] MEDS: LIDOCAINE 5% PATCH 1 PATCH TRANSDERM (09:49)
[2023-10-12 10:37] VITALS: BP 171/105; O2SAT 98
[2023-10-12 10:38] VITALS: O2SAT 99
[2023-10-12 10:45] VITALS: O2SAT 98
[2023-10-12 11:00] VITALS: O2SAT 97
[2023-10-12 11:05] VITALS: BP 180/91; PULSE 85; RESP 16; TEMP 36.3; O2SAT 98
== END 2023-10-12 11:07 | disposition home or self-care (01) ==
PROVIDERS: Emergency Provider Nurse Practitioner; PCP Internal Medicine
DX: M54.12 Radiculopathy, cervical region (principal); M62.838 Other muscle spasm; I12.9 Hypertensive chronic kidney disease with stage 1 through stage 4 chronic kidney disease, or unspecified chronic kidney disease; E11.22 Type 2 diabetes mellitus with diabetic chronic kidney disease; N18.9 Chronic kidney disease, unspecified; E78.5 Hyperlipidemia, unspecified; E28.2 Polycystic ovarian syndrome; M79.7 Fibromyalgia; K21.9 Gastro-esophageal reflux disease without esophagitis; Z87.891 Personal history of nicotine dependence; Z90.79 Acquired absence of other genital organ(s); Z90.721 Acquired absence of ovaries, unilateral; Z79.84 Long term (current) use of oral hypoglycemic drugs; Z79.4 Long term (current) use of insulin; Z79.82 Long term (current) use of aspirin
CPT/HCPCS: 96372; 99284; A9270; J1885; J3360; J7512

== ENCOUNTER 2024-01-24 12:34 | Emergency (ER) | payer BC, SELFPAY ==
--- NOTE | ~2024-01-24 | CT_ITS ---
EXAMINATION: CT abdomen pelvis w con DATE: 01/24/2024 15:31 INDICATION: Abdominal pain. Nausea. TECHNIQUE: Computed tomography (CT) of the abdomen and pelvis was performed with 100 mL Omnipaque 350 intravenous contrast. Automated exposure control and iterative reconstruction technique were employe d. The dose-length product was 1253.07 mGy-cm. COMPARISON: CT abdomen and pelvis 10/08/2023, 06/28/2022 FINDINGS: The visualized portions of the lung bases are clear without pneumonia or pleural effusion. The heart size is normal. There are coronary artery calcifications. There is a trace pericardial effu meron. There is a small sliding hiatal hernia. The liver, spleen, pancreas, and right adrenal gland ar e normal. There is a 10 mm mass in left adrenal gland measuring soft tissue attenuation, stable from 06/29/2022, likely an adenoma. There is cortical thinning of the kidneys. There are cysts in the kidne ys measuring up to 2.6 cm on the right. There are no dilated loops of bowel. The appendix is normal. There are no pathologically enlarged lymph nodes. There is no free intraperitoneal fluid. There is mi ld thoracic and lumbar spondylosis. There is mild chronic anterior wedging of T11 and T12 vertebral b odies. IMPRESSION: 1. Small sliding hiatal hernia. Reviewed, dictated and finalized at location E. [employer]
[2024-01-24 13:17] VITALS: BP 130/87; PULSE 92; RESP 18; TEMP 36.6; O2SAT 99
[2024-01-24 13:23] LABS: Basophils Percent Auto 0.2 % (0.2-1.2); Eosinophils Absolute Auto 0.1 K/mm3 (0-0.3); Eosinophils Percent Auto 1.4 % (0-4.4); Hematocrit 43.3 % (37.0-47.0); Hemoglobin 13.2 g/dL (12.0-15.0); Immature Granulocyte Absolute 0.02 K/mm3 (0.00-0.031); Immature Granulocyte Percent A 0.2 % (0-0.5); Lymphocytes Absolute Auto 1.93 K/mm3 (0.9-3.2); Lymphocytes Percent Auto 20.6 % (18.3-44.2); Mean Corpuscular HGB Conc 30.5 g/dl (32-36); Mean Corpuscular Hemoglobin 28.1 pg (26-34); Mean Corpuscular Volume 92.3 fl (80-100); Mean Platelet Volume 8.7 fl (7.4-10.4); Monocytes Absolute Auto 0.6 K/mm3 (0.1-0.6); Monocytes Percent Auto 5.9 % (2.6-8.5); Neutrophils Absolute Auto 6.7 K/mm3 (1.3-6.7); Neutrophils Percent Auto 71.7 % (45.5-73.1); Platelet Count Result 283 k/mm3 (150-375); Red Blood Count 4.69 M/mm3 (4.2-5.4); Red Cell Distribution Width 14.1 % (11.5-14.5); White Blood Count 9.4 K/mm3 (4.5-10.0)
[2024-01-24 13:39] LABS: Alanine Aminotransferase 50 U/L (6-35); Albumin Level 4.6 g/dL (3.5-5.1); Alkaline Phosphatase 93 U/L (38-126); Anion Gap 9 mmol/L (8-16); Aspartate Amino Transferase 45 U/L (14-36); Bilirubin,Total 0.5 mg/dL (0.2-1.3); Blood Urea Nitrogen 30 mg/dL (7-17); Calcium 10.1 mg/dL (8.4-10.2); Carbon Dioxide 24 mmol/L (22-30); Chloride 106 mmol/L (98-107); Estimated CRCL calculation 67 ml/min; Estimated Glomerular Filt Rate 55; Glucose 169 mg/dL (65-110); Lipase 109 U/L (23-300); Potassium 4.7 mmol/L (3.4-5.0); Sodium 139 mmol/L (137-145)
--- NOTE | 2024-01-24 13:45 | ED.ABDPAIN ---
HPI - Abdominal Pain General Chief Complaint: Abdominal Pain <Taryn Stephens PA-C - Last Filed: 01/26/24 20:23> Stated Complaint: abdominal pain <Taryn Stephens PA-C - Last Filed: 01/26/24 20:23> Time Seen by Provider: 01/24/24 13:45 <Taryn Stephens PA-C - Last Filed: 01/26/24 20:23> Focused HPI: This is a 38 year old female that presents to the ER for epigastric pain worsening over the last week. The pain is a dull ache. Reports intermittent. No known alleviating or exacerbating factors. Reports nausea. Takes Omeprazole daily. Sees Dr. Tuttle. Denies fever, chest pain, shortness of breath, vomiting, diarrhea. GENERAL: Well-appearing, well-nourished, and in no acute distress. HEAD: Normocephalic, atraumatic. CHEST: Clear to auscultation. ?No respiratory distress. HEART: Regular rate and rhythm.? NEURO: ?Alert and oriented x3. Patient screened in triage and initial orders placed.? ?Additional care and disposition to be based upon?diagnostic testing and treatment. <Taryn Stephens PA-C - Last Filed: 01/26/24 20:23> History of Present Illness HPI narrative: 38-year-old female presenting with abdominal pain. Patient states that she had a similar episode back in September. nothing was ever really found in her pain went away for several months. Unfortunately over the last week she has again been having intermittent epigastric and right upper quadrant pain that comes and goes. Denies obvious exacerbating or alleviating factors. States that it feels like a dull ache and ultimately will resolve after 1-2 hours. States that her indigestion has been acting up she recently restarted omeprazole. States that she was on pantoprazole but she had to switch due to insurance reasons. States that she follows with Dr. Corbett with GI. <Cindy Casillas MD - Last Filed: 01/29/24 14:54> Related Data Home Medications: Home Medications Medication Instructions Recorded Confirmed losartan 100 mg tablet 100 mg PO DAILY 04/30/20 01/26/24 metformin 500 mg tablet,extended 500 mg PO DAILY 04/30/20 01/26/24 release 24 hr albuterol sulfate 90 mcg/actuation 1 inh inhalation PRN PRN Shortness 07/06/20 01/26/24 aerosol inhaler (ProAir HFA) Of Breath insulin degludec 200 unit/mL (3 40 unit subcut HS 07/06/20 01/26/24 mL) subcutaneous pen (Tresiba FlexTouch U-200 insulin) rosuvastatin 10 mg tablet (Crestor) 10 mg PO DAILY 08/09/20 01/26/24 aspirin 81 mg tablet 81 mg PO DAILY 11/12/20 01/26/24 bupropion HCl 150 mg tablet,12 hr 150 mg PO DAILY 04/20/22 01/26/24 sustained-release (Wellbutrin SR) dapagliflozin propanediol 10 mg 10 mg PO DAILY 04/20/22 01/26/24 tablet (Farxiga) ferrous sulfate 325 mg (65 mg 325 mg PO DAILY 04/20/22 01/26/24 iron) tablet omeprazole 20 mg capsule,delayed 20 mg PO DAILY 01/26/24 01/26/24 release <Taryn Stephens PA-C - Last Filed: 01/26/24 20:23> Allergies/Adverse Reactions: Allergies Allergy/AdvReac Type Severity Reaction Status Date / Time metoclopramide AdvReac Severe PANIC Verified 01/26/24 08:19 ATTACKS ondansetron AdvReac Severe PANIC Verified 01/26/24 08:19 ATTACKS prochlorperazine AdvReac Severe PANIC Verified 01/26/24 08:19 [From Compazine] ATTACKS promethazine AdvReac Severe PANIC Verified 01/26/24 08:19 ATTACKS adhesive tape AdvReac Intermediate Rash Verified 01/26/24 08:19 <Taryn Stephens PA-C - Last Filed: 01/26/24 20:23> Review of Systems Review of Systems: All systems reviewed & are unremarkable except as noted in HPI and below <Cindy Casillas MD - Last Filed: 01/29/24 14:54> [facility] Past Medical History Medical History: Medical History BOBBY positive (~2020) Anxiety Bilateral hand pain Chronic kidney disease Colon, diverticulosis Complex cyst of left ovary surgical removal Constipation CRP elevated Degenerative joint disease of cervi
[2024-01-24 13:46] LABS: Add Urine Microscopic? YES; Appearance Urine Clear (Clear); Bacteria Urine None Seen /hpf; Bilirubin Urine Negative (Negative); Blood Urine Negative (Negative); Color Urine Yellow (Yellow); Glucose Urine UA 3+ mg/dL (Negative); Ketones Urine Trace mg/dL (Negative); Leukocyte Esterase Ur Negative LEU/UL (Negative); Need Manual Microscopic Reviewed; Nitrate Urine Negative (Negative); Protein Urine 2+ mg/dL (Negative); RBC Urine 0-2 /hpf (0-2); Specific Grav Ur 1.038 (1.001-1.035); Squamous Epithelial Cell Urine Occasional /hpf (Few); WBC Urine 0-5 /hpf
[2024-01-24 14:17] LABS: INR 0.9; Prothrombin Time 12.4 Seconds (11.1-14.7)
[2024-01-24 14:19] LABS: Partial Thromboplastin Time 29.2 SECONDS (22.3-36.8)
[2024-01-24] MEDS: SODIUM CHLORIDE 0.9% IV 1,000 ML 999 ML IV CONT ×2 (16:01→17:54)
[2024-01-24] MEDS: PANTOPRAZOLE SODIUM IV 40 MG VIAL IV PUSH (16:02)
[2024-01-24 20:57] VITALS: BP 139/83; PULSE 86; RESP 16; O2SAT 99
== END 2024-01-24 20:58 | disposition home or self-care (01) ==
PROVIDERS: Physician Assistant; Student in an Organized Health Care Education/Training Program; Emergency Provider Emergency Medicine; PCP Internal Medicine
DX: E86.0 Dehydration (principal); R10.9 Unspecified abdominal pain; F41.9 Anxiety disorder, unspecified; I12.9 Hypertensive chronic kidney disease with stage 1 through stage 4 chronic kidney disease, or unspecified chronic kidney disease; E11.22 Type 2 diabetes mellitus with diabetic chronic kidney disease; N18.9 Chronic kidney disease, unspecified; Z79.4 Long term (current) use of insulin; E78.5 Hyperlipidemia, unspecified; M79.7 Fibromyalgia; K21.9 Gastro-esophageal reflux disease without esophagitis
CPT/HCPCS: 36415; 74177; 80053; 81001; 83690; 85025; 85610; 85730; 96361; 96374; 99284; C9113; J7030; Q9967

== ENCOUNTER 2024-02-08 08:09 | Outpatient (CLI) | payer BC, SELFPAY ==
--- NOTE | ~2024-02-08 | NM_ITS ---
EXAM: NM gastric emptying study DATE: 02/08/2024 12:40 INDICATION: Nausea with vomiting TECHNIQUE: A gastric emptying study was performed using the methodology of Carla HASTINGS, et al. J Nucl Med 2007; 48:568-572. The patient was given a meal consisting of 2 scrambled eggs labeled with 0.948 mCi Tc-99m sulfur colloid, 2 slices of toast, two packages of jam, and approximately 120 mL of water . Simultaneous anterior and posterior 1-min images of the abdomen were obtained with the patient supi ne at multiple time points over a total period of 4 hours. The geometric mean of anterior and posteri or views was determined, and the percentage retention was calculated for each time point. COMPARISON: None. FINDINGS: Gastric retention of the radiotracer-labeled meal was 82%, 71%, and 57% at the 1-hour, 2-hour, and 4- hour time points, respectively. With this technique, apparent rapid gastric emptying is suggested by <30% gastric retention at 1 hour. Delayed gastric emptying is defined by gastric retention of >90% at 1 hour, >60% retention at 2 hours, or >10% retention at 4 hours. IMPRESSION: 1. Delayed gastric emptying. Reviewed, dictated and finalized at location A.
== END 2024-02-08 08:10 | disposition home or self-care (01) ==
PROVIDERS: PCP Internal Medicine; Visit Provider Nurse Practitioner Family
DX: K30 Functional dyspepsia (principal)
CPT/HCPCS: 78264; A9541

== ENCOUNTER 2024-02-24 20:04 | Emergency (ER) | payer BC, SELFPAY ==
--- NOTE | ~2024-02-24 | US_ITS ---
EXAMINATION: US pelvic complete w TV DATE: 02/24/2024 23:48 INDICATION: RLQ pain , cyst on CT. Remote post left oophorectomy TECHNIQUE: Multiple transabdominal and endovaginal sonographic images of the pelvis were obtained. COMPARISON: CT abdomen pelvis, same date. FINDINGS: Uterus: 8.9 x 8.9 x 4.6 cm. Myometrial calcification, likely degenerative fibroid. Multiple nabothian cysts. Endometrial complex measures 9 mm. Right Ovary: 4.8 x 4.5 x 2.9 cm. Vascular flow is present. Nonsimple 2.5 cm ovarian lesion with nonde pendent nodularity/wall thickening that contains vascular flow. Multiple adjacent simple cysts and/or dominant follicles ranging in size between 0.7 and 1.9 cm. Alternatively, these findings may relate to a single complex right ovarian mass measuring up to 3.7 cm, with multiple septae of irregular thic kness and septal and/or papillary vascularity. Left Ovary: Surgically absent. There is no free fluid in the pelvis. IMPRESSION: Complex, intermediate risk right ovarian lesion (ORADS 4). Pelvic MRI could be helpful for further ch aracterization. Recommend gynecology or gynecology-oncology referral. Status post left oophorectomy. Discrepancy with the overnight preliminary reading was discussed telephonically with Dr Paz by Dr. Sebastian at 2:20 PM on 02/25/2024. Reviewed, dictated and finalized at location K. IMPRESSION: Complex, intermediate risk right ovarian lesion (ORADS 4). Pelvic MRI could be helpful for further characterization. Recommend gynecology or gynecology-oncolo gy referral. Status post left oophorectomy. Discrepancy with the overnight preliminary reading was discussed telephonically with Dr Paz by Dr. Sebastian at 2:20 PM on 02/25/2024.
--- NOTE | ~2024-02-24 | CT_ITS ---
EXAMINATION: CT abdomen pelvis w con DATE: 02/24/2024 21:38 INDICATION: RLQ abd pain TECHNIQUE: Computed tomography (CT) of the abdomen and pelvis was performed with 100 mL Omnipaque-350 intravenous contrast. Automated exposure control and iterative reconstruction technique were employe d. The dose-length product was 999.88 mGy-cm. COMPARISON: 01/24/2024, 10/08/2023. FINDINGS: Lower thorax: Unremarkable Liver: Normal. Biliary/Gallbladder: Gallbladder is absent. No bile duct dilation. Pancreas: No mass or duct dilation. Spleen: Normal. Adrenals: 13 mm indeterminate density (65HU) left adrenal mass. Kidneys: No suspicious mass, obstructing stone, or hydronephrosis. Multiple bilateral simple cysts an d lesions that are too small to characterize but also likely represent cysts. GI tract: No small or large bowel dilation. Normal appendix. Diverticulosis without diverticulitis. Mesentery/Peritoneum: No ascites, mass, or free air. Retroperitoneum: No mass. Pelvis: Partially filled urinary bladder. Fibroid uterus. Left ovary not confidently visualized. Gloria us luteal cyst and multiple probably simple cysts in the right ovary. Soft Tissues: Soft tissues and body wall unremarkable. Bones: No acute osseous finding. IMPRESSION: 13 mm indeterminate density left adrenal mass demonstrating slight enlargement since the prior studie s, recommend nonemergent but timely follow-up adrenal CT for further evaluation. If there is a histor y of cancer, consideration could be given to biopsy or PET/CT. Corpus luteal cyst and multiple probably simple cysts in the right ovary, if symptoms refer to the pe lvis consider pelvic ultrasound for further evaluation. Otherwise, no acute abdominopelvic process detected. Reviewed, dictated and finalized at location K. IMPRESSION: 13 mm indeterminate density left adrenal mass demonstrating slight enlargement since the prior studies, recommend nonemergent but timely follow-up adrenal CT for further evaluation. If there is a history of cancer, consideration could be given to biopsy or PET/CT. Corpus luteal cyst and multiple probably simple cysts in the right ovary, if sy mptoms refer to the pelvis consider pelvic ultrasound for further evaluation. Otherwise, no acute abdominopelvic process detected.
[2024-02-24 20:27] VITALS: BP 147/85; PULSE 108; RESP 16; TEMP 36.8; O2SAT 96
[2024-02-24 20:46] LABS: Basophils Percent Auto 0.4 % (0.2-1.2); Eosinophils Absolute Auto 0.2 K/mm3 (0-0.3); Eosinophils Percent Auto 1.8 % (0-4.4); Hematocrit 40.3 % (37.0-47.0); Hemoglobin 12.8 g/dL (12.0-15.0); Immature Granulocyte Absolute 0.03 K/mm3 (0.00-0.031); Immature Granulocyte Percent A 0.3 % (0-0.5); Lymphocytes Absolute Auto 2.57 K/mm3 (0.9-3.2); Lymphocytes Percent Auto 25.5 % (18.3-44.2); Mean Corpuscular HGB Conc 31.8 g/dl (32-36); Mean Corpuscular Hemoglobin 28.1 pg (26-34); Mean Corpuscular Volume 88.6 fl (80-100); Mean Platelet Volume 8.6 fl (7.4-10.4); Monocytes Absolute Auto 0.6 K/mm3 (0.1-0.6); Monocytes Percent Auto 5.8 % (2.6-8.5); Neutrophils Absolute Auto 6.7 K/mm3 (1.3-6.7); Neutrophils Percent Auto 66.2 % (45.5-73.1); Platelet Count Result 312 k/mm3 (150-375); Red Blood Count 4.55 M/mm3 (4.2-5.4); Red Cell Distribution Width 13.9 % (11.5-14.5); White Blood Count 10.1 K/mm3 (4.5-10.0)
[2024-02-24 20:59] LABS: Alanine Aminotransferase 20 U/L (6-35); Albumin Level 4.5 g/dL (3.5-5.1); Alkaline Phosphatase 88 U/L (38-126); Anion Gap 11 mmol/L (4-12); Aspartate Amino Transferase 19 U/L (14-36); Bilirubin,Total 0.4 mg/dL (0.2-1.3); Blood Urea Nitrogen 30 mg/dL (7-17); Calcium 9.6 mg/dL (8.4-10.2); Carbon Dioxide 19 mmol/L (22-30); Chloride 108 mmol/L (98-107); Estimated CRCL calculation 72 ml/min; Estimated Glomerular Filt Rate > 60; Glucose 133 mg/dL (65-110); Lipase 191 U/L (23-300); Potassium 3.8 mmol/L (3.4-5.0); Sodium 138 mmol/L (137-145)
[2024-02-24 21:01] LABS: Appearance Urine Cloudy (Clear); Bacteria Urine 4+ /hpf; Bilirubin Urine Negative (Negative); Blood Urine Negative (Negative); Color Urine Yellow (Yellow); Glucose Urine UA 3+ mg/dL (Negative); Ketones Urine Trace mg/dL (Negative); Leukocyte Esterase Ur Negative LEU/UL (Negative); Need Manual Microscopic Reviewed; Nitrate Urine Positive (Negative); Protein Urine 2+ mg/dL (Negative); RBC Urine 0-2 /hpf (0-2); Squamous Epithelial Cell Urine None Seen /hpf (Few); WBC Clumps Urine Present /HPF; WBC Urine 21-50 /hpf (0-3)
[2024-02-24 21:02] LABS: Add Urine Microscopic? YES
--- NOTE | 2024-02-24 21:07 | ED.ABDPAIN ---
HPI - Abdominal Pain General Chief Complaint: Abdominal Pain Stated Complaint: RLQ abd pain, spider bite Time Seen by Provider: 02/24/24 20:49 History of Present Illness HPI narrative: 38-year-old female with history of insulin-dependent type 2 diabetes, GERD, hypertension, hyperlipidemia, fibromyalgia presents to the emergency department for RLQ abdominal pain x 4-5 days. Patient states the pain is located right lower quadrant and she describes it as sharp. States that the onset of symptoms she is concerned she is getting a UTI so she drank a lot of water. She is reporting nausea but states this is not abnormal for her. States her last bowel movement was 02/18, but again constipation is not abnormal for her. Denies vomiting or diarrhea, fever, dysuria or hematuria. Prior abdominal surgeries include cholecystectomy, bilateral salpingectomy and left oophorectomy and 2 sections. She is also reporting with concerns for a ?spider bite? to her left buttock. States 2 nights ago she woke up middle night with itchiness to this area and has since become swollen and painful. States tetanus is not up-to-date. Related Data Home Medications Medication Instructions Recorded Confirmed losartan 100 mg tablet 100 mg PO DAILY 04/30/20 01/26/24 metformin 500 mg tablet,extended 500 mg PO DAILY 04/30/20 01/26/24 release 24 hr albuterol sulfate 90 mcg/actuation 1 inh inhalation PRN PRN Shortness 07/06/20 01/26/24 aerosol inhaler (ProAir HFA) Of Breath insulin degludec 200 unit/mL (3 40 unit subcut HS 07/06/20 01/26/24 mL) subcutaneous pen (Tresiba FlexTouch U-200 insulin) rosuvastatin 10 mg tablet (Crestor) 10 mg PO DAILY 08/09/20 01/26/24 aspirin 81 mg tablet 81 mg PO DAILY 11/12/20 01/26/24 bupropion HCl 150 mg tablet,12 hr 150 mg PO DAILY 04/20/22 01/26/24 sustained-release (Wellbutrin SR) dapagliflozin propanediol 10 mg 10 mg PO DAILY 04/20/22 01/26/24 tablet (Farxiga) ferrous sulfate 325 mg (65 mg 325 mg PO DAILY 04/20/22 01/26/24 iron) tablet omeprazole 20 mg capsule,delayed 20 mg PO DAILY 01/26/24 01/26/24 release Allergies Allergy/AdvReac Type Severity Reaction Status Date / Time metoclopramide AdvReac Severe PANIC Verified 02/25/24 00:47 ATTACKS ondansetron AdvReac Severe PANIC Verified 02/25/24 00:47 ATTACKS prochlorperazine AdvReac Severe PANIC Verified 02/25/24 00:47 [From Compazine] ATTACKS promethazine AdvReac Severe PANIC Verified 02/25/24 00:47 ATTACKS adhesive tape AdvReac Intermediate Rash Verified 02/25/24 00:47 Review of Systems Review of Systems: CONSTITUTIONAL: Denies fever, chills, or sweats. EYES: Denies visual changes, redness, or discharge. ENT: Denies rhinorrhea, congestion, sore throat, or otalgia. CARDIOVASCULAR: Denies chest pain, palpitations, or edema. RESPIRATORY: Denies cough or dyspnea. GASTROINTESTINAL: See HPI GENITOURINARY: Denies dysuria or hematuria. SKIN: See HPI MUSCULOSKELETAL: Denies back pain, joint pain, or myalgia. NEUROLOGIC: Denies headache, numbness, or weakness. PSYCHIATRIC: Denies anxiety or depression. [facility] Past Medical History Medical History BOBBY positive (~2020) Anxiety Bilateral hand pain Chronic kidney disease Colon, diverticulosis Complex cyst of left ovary surgical removal Constipation CRP elevated Degenerative joint disease of cervical and lumbar spine Dyslipidemia Empty sella syndrome Fibromyalgia Gastroesophageal reflux disease Hematochezia History of Pettit's palsy Hypertension Insulin dependent type 2 diabetes mellitus Hemoglobin A1c on 11/12/2020 was 7.9%. Kidney cysts Followed by a dealmaker in [place]. Migraine headache Myalgia Myalgia Polycystic ovarian syndrome Pseudotumor cerebri SOB (shortness of breath) Yeast infection Surgical History Surgical History Delivery by s
[2024-02-24 21:21] VITALS: BP 127/86; PULSE 96; RESP 16; O2SAT 98
[2024-02-24] MEDS: SODIUM CHLORIDE 0.9% IV 1,000 ML 999 ML IV CONT (21:25)
[2024-02-24] MEDS: TETANUS,DIPHTHERIA,AC PERTUSSIS ADULT (0.5 ML) BOOSTRIX IM (21:26)
[2024-02-24 22:47] VITALS: BP 142/96; PULSE 96; RESP 18; O2SAT 100
[2024-02-25 00:23] VITALS: PULSE 98; RESP 17; O2SAT 99
[2024-02-25] MEDS: SULFAMETHOXAZOLE/TRIMETHOPRIM 800/160 MG DS TABLET 1 TAB PO (00:46)
[2024-02-25] MEDS: MORPHINE SULFATE (*CRX) 4 MG/ML INJ IV PUSH (00:55)
[2024-02-25 00:59] VITALS: BP 141/89; PULSE 102; RESP 18; O2SAT 99
[2024-02-25] MEDS: valACYclovir HCL 500 MG TABLET 1000 MG PO (01:44)
[2024-02-25 02:09] VITALS: PULSE 98; RESP 17; O2SAT 99
[2024-02-25 02:43] VITALS: PULSE 93; RESP 18; O2SAT 97
== END 2024-02-25 02:45 | disposition home or self-care (01) ==
PROVIDERS: Emergency Medicine; Emergency Provider Physician Assistant; PCP Internal Medicine
DX: N30.00 Acute cystitis without hematuria (principal); E27.8 Other specified disorders of adrenal gland; N83.11 Corpus luteum cyst of right ovary; B02.9 Zoster without complications; R10.31 Right lower quadrant pain; Z23 Encounter for immunization; E11.22 Type 2 diabetes mellitus with diabetic chronic kidney disease; I12.9 Hypertensive chronic kidney disease with stage 1 through stage 4 chronic kidney disease, or unspecified chronic kidney disease; N18.9 Chronic kidney disease, unspecified; E78.5 Hyperlipidemia, unspecified; E28.2 Polycystic ovarian syndrome; M79.7 Fibromyalgia; K21.9 Gastro-esophageal reflux disease without esophagitis; M47.812 Spondylosis without myelopathy or radiculopathy, cervical region; M47.816 Spondylosis without myelopathy or radiculopathy, lumbar region; F41.9 Anxiety disorder, unspecified; Z87.891 Personal history of nicotine dependence; Z90.49 Acquired absence of other specified parts of digestive tract; Z90.79 Acquired absence of other genital organ(s); Z90.721 Acquired absence of ovaries, unilateral; Z79.4 Long term (current) use of insulin; Z79.84 Long term (current) use of oral hypoglycemic drugs; Z79.82 Long term (current) use of aspirin
CPT/HCPCS: 36415; 74177; 76830; 76856; 80053; 81001; 81025; 83690; 85025; 87086; 90471; 90715; 96361; 96374; 99284; A9270; J2270; J7030; Q9967

== ENCOUNTER 2024-03-07 16:46 | Outpatient (CLI) | payer BC, SELFPAY ==
--- NOTE | ~2024-03-07 | CT_ITS ---
EXAMINATION: CT abdomen wo con DATE: 03/07/2024 17:05 INDICATION: Adrenal mass. TECHNIQUE: Computed tomography (CT) of the abdomen was performed without intravenous contrast. Automa mai exposure control and iterative reconstruction technique were employed. The dose-length product wa s 804.86 mGy-cm. COMPARISON: CT abdomen and pelvis 02/24/24, 06/29/22 FINDINGS: The visualized portions of the lung bases are clear without pneumonia or pleural effusion. The heart size is normal. There are coronary artery calcifications. There is a small pericardial effu meron. There is a small sliding hiatal hernia. The liver is normal. There are changes of cholecystecto my. The spleen, pancreas, and right adrenal gland are normal. There is an 11 mm mass in left adrenal gland measuring soft tissue attenuation. There are cysts in the kidneys measuring up to 2.1 cm on the right. There are no dilated loops of bowel. There are no pathologically enlarged lymph nodes. There is no free intraperitoneal fluid. There is mild thoracic and lumbar spondylosis. There is mild chroni c anterior wedging of multiple thoracic vertebral bodies. IMPRESSION: 1. 11 mm left adrenal mass, stable from 06/29/2022, likely an adenoma. Reviewed, dictated and finalized at location E.
== END 2024-03-07 16:47 | disposition home or self-care (01) ==
LOC: ANHIMG 16:46
PROVIDERS: PCP Internal Medicine; Visit Provider Internal Medicine
DX: D35.02 Benign neoplasm of left adrenal gland (principal); E27.9 Disorder of adrenal gland, unspecified
CPT/HCPCS: 74150

== ENCOUNTER 2024-11-10 11:02 | Emergency (ER) | payer BC, SELFPAY ==
[2024-11-10 11:22] VITALS: BP 153/79; PULSE 106; RESP 20; TEMP 37.4; O2SAT 100
--- NOTE | 2024-11-10 12:05 | ED.FEMALEGU ---
HPI - Female Genitourinary General Chief complaint: Urogenital-Female Stated complaint: Urinary Problem/Right Side Pain History of Present Illness HPI Narrative: Patient presents with right-sided back pain that radiates to her right lower abdomen. Patient denies any flank pain no gross hematuria no suprapubic pain no pelvic pain no abdominal pain. Patient states she has a history of recent frequent urinary tract infections due to her medication. Related Data Home Medications ?Medication ?Instructions ?Recorded ?Confirmed ?Last Taken ?Type losartan 100 mg tablet 100 mg PO DAILY 04/30/20 11/10/24 11/17/20 09:00 History metformin 500 mg tablet,extended 500 mg PO DAILY 04/30/20 11/10/24 11/17/20 09:00 History release 24 hr albuterol sulfate 90 mcg/actuation 1 inh inhalation PRN PRN Shortness 07/06/20 11/10/24 11/16/20 21:00 History aerosol inhaler (ProAir HFA) Of Breath insulin degludec 200 unit/mL (3 40 unit subcut HS 07/06/20 11/10/24 11/17/20 21:00 History mL) subcutaneous pen (Tresiba FlexTouch U-200 insulin) rosuvastatin 10 mg tablet (Crestor) 10 mg PO DAILY 08/09/20 11/10/24 11/17/20 21:00 History bupropion HCl 150 mg tablet,12 hr 150 mg PO DAILY 04/20/22 11/10/24 Unknown History sustained-release (Wellbutrin SR) dapagliflozin propanediol 10 mg 10 mg PO DAILY 04/20/22 11/10/24 Unknown History tablet (Farxiga) aspirin 81 mg tablet,delayed mg 11/10/24 Unknown History release bupropion HCl 150 mg 24 hr tablet, mg PO 11/10/24 Unknown History extended release Allergies Allergy/AdvReac Type Severity Reaction Status Date / Time metoclopramide AdvReac Severe PANIC Verified 11/10/24 12:02 ATTACKS ondansetron AdvReac Severe PANIC Verified 11/10/24 12:02 ATTACKS prochlorperazine (From AdvReac Severe PANIC Verified 11/10/24 12:02 Compazine) ATTACKS promethazine AdvReac Severe PANIC Verified 11/10/24 12:02 ATTACKS adhesive tape AdvReac Intermediate Rash Verified 11/10/24 12:02 Review of Systems Review of Systems: CONSTITUTIONAL: Denies fever, chills, or sweats. EYES: Denies visual changes, redness, or discharge. ENT: Denies rhinorrhea, congestion, sore throat, or otalgia. CARDIOVASCULAR: Denies chest pain, palpitations, or edema. RESPIRATORY: Denies cough or dyspnea. GASTROINTESTINAL: Denies abdominal pain, nausea, vomiting, or diarrhea. GENITOURINARY: Denies dysuria or hematuria. SKIN: Denies rash or itching. MUSCULOSKELETAL: Denies back pain, joint pain, or myalgia. NEUROLOGIC: Denies headache, numbness, or weakness. PSYCHIATRIC: Denies anxiety or depression. [facility] Past Medical History Medical History BOBBY positive (~2020) Anxiety Bilateral hand pain Chronic kidney disease Colon, diverticulosis Complex cyst of left ovary surgical removal Constipation CRP elevated Degenerative joint disease of cervical and lumbar spine Dyslipidemia Empty sella syndrome Fibromyalgia Gastroesophageal reflux disease Hematochezia History of Pettit's palsy Hypertension Insulin dependent type 2 diabetes mellitus Hemoglobin A1c on 11/12/2020 was 7.9%. Kidney cysts Followed by a transmitter operator in [place]. Migraine headache Myalgia Myalgia Polycystic ovarian syndrome Pseudotumor cerebri SOB (shortness of breath) Yeast infection Surgical History Surgical History Delivery by section xs 2 History of bilateral salpingectomy History of esophagogastroduodenoscopy (EGD) History of laparoscopic cholecystectomy (~2005) History of tubal ligation History of unilateral oophorectomy Family History Family History Father Diabetes mellitus Hypertension Myocardial infarct Heart disease Mother Diabetes mellitus Heart disease Sibling Narcolepsy and cataplexy Legal Guardian No problems noted. Grandparent Breast cancer Social History Social History (Updated 03/05/24 @ 08:35 by Noemi Chaparro MA) Social History: The patient is and lives in [place] with her teenage son and daughter. She works for the [employer]. She smoked about a half a pack of cigarettes a day and quit in June 2020. No alcohol or illicit substance abuse. She designates her daughter Kiesha as her surrogate decision maker and she wishes to be a full code. Smoking packs per day: 1 Smoking cigarettes per day: 20.0 Years smoked: 20 Smoking pack-years: 20.00 Smoking status: Former smoker Tobacco type: cigarettes Second hand tobacco smoke exposure: Yes Smoking end date: 06/29/20 Alcohol intake: never Substance use: never Substance use type: does not use Other substance usage details: Previously used marijuana; denies currently Last use: DAILY Do You Feel Safe in your Home?: Yes Lack of Transportation: No Lack of Food: Never True Current Housing: I Have Housing Concerned About Future Housing: No Difficulty Paying Gas/Electric Bills: No Difficulty Paying for Meds: No Currently Unemployed: No Education: Associate Degree Difficulty w/ Childcare or Family Care: No Living arrangements: with family Occupation/Education: occupation Additional occupation/education comments: [employer] Gender identity (if verbalized by the patient): Female Sexual Orientation (if Verbalized by the Patient): Bisexual Spiritual care concerns: No Comments At time of signature, agree with nursing past medical, surgical, social and family history. There is no relevant family history pertinent to the presenting complaint Exam Narrative: GENERAL: Well-appearing, well-nourished, and in no acute distress. HEAD: Normocephalic, atraumatic. EYES: PERRLA and EOMI. ENT: Nares clear, no rhinorrhea or epistaxis. Mucous membranes moist. NECK: Supple. CHEST: Clear to auscultation. No respiratory distress. HEART: Regular rate and rhythm. No murmur heard. Normal peripheral pulses. ABDOMEN: Soft, nontender, nondistended, normal active bowel sounds no CVA tenderness. EXTREMITIES: Normal range of motion. No edema. SKIN: Warm, dry, no rash. NEURO: No focal deficits. Alert and oriented x3. Yaya Coma Scale Eye Opening: Spontaneous 4 [place] Coma Scale Motor: Obeys Commands 6 Yaya Coma Scale Verbal: Oriented 5 Vernon Coma Scale Total 15 Course Course Level of Care: Express Care Visit Vital Signs Vital signs: Vital Signs Temperature 37.4 C 11/10/24 11:22 Pulse Rate 106 H 11/10/24 11:22 Respiratory Rate 20 11/10/24 11:22 Blood Pressure 153/79 H 11/10/24 11:22 Pulse Oximetry 100 11/10/24 11:22 Oxygen Delivery Room Air 11/10/24 11:22 Temperature 37.4 C 11/10/24 11:22 Pulse Rate 106 H 11/10/24 11:22 Respiratory Rate 20 11/10/24 11:22 Blood Pressure 153/79 H 11/10/24 11:22 Pulse Oximetry 100 11/10/24 11:22 Oxygen Delivery Room Air 11/10/24 11:22 Please ESTRELLA schedule a followup visit with your personal physician for further evaluation and treatment. Including recheck and discussion of your blood pressure. If your symptoms persist, change or worsen significantly before you can contact your personal physician then please, without delay, go to the emergency department for further evaluation Discharge Plan Discharge Clinical Impression: UTI (urinary tract infection) Patient Disposition: Home, Self-Care Condition: Stable Instructions: Antibiotic Form, Urinary Tract Infection in Women (DC) Additional Instructions: Increase fluids especially cranberry juice and water Avoid caffeine and carbonated beverages Antibiotic as directed Medicine as directed--cautioned it will cause your urine to be bright orange Tylenol/ibuprofen for pain or fever Follow-up with her primary care provider if further problems or concerns Recheck if you have fever over 101, nausea and vomiting -If you have any worsening of symptoms or any other concerns please go to the ED immediately. Patient Language: Romanian Prescriptions: New cephalexin 500 mg capsule 500 mg PO Q12H 5 Days Qty: 10 0RF No Action aspirin 81 mg tablet,delayed release (DR/EC) bupropion HCl 150 mg tablet extended release 24 hr PO fluconazole 150 mg tablet 150 mg PO Q72H Qty: 2 0RF oxycodone 5 mg tablet 5 mg PO Q6H PRN (Reason: pain) Qty: 12 0RF losartan 100 mg Tablet 100 mg PO DAILY metformin 500 mg Tablet Extended Release 24 Hr 500 mg PO DAILY Patient Comments: States she usually takes only once a day insulin degludec [Tresiba FlexTouch U-200] 200 unit/mL (3 mL) insulin pen 40 unit SUBCUT HS albuterol sulfate [ProAir HFA] 90 mcg/actuation HFA aerosol inhaler 1 inh INHALATION PRN PRN (Reason: Shortness Of Breath) bupropion HCl [Wellbutrin SR] 150 mg Tablet Sustained-Release 12 Hr 150 mg PO DAILY dapagliflozin propanediol [Farxiga] 10 mg Tablet 10 mg PO DAILY rosuvastatin [Crestor] 10 mg Tablet 10 mg PO DAILY Patient Comments: Pt states she takes this at night valacyclovir 1 gram tablet 1,000 mg PO Q8H 10 Days Qty: 30 0RF hydrocodone-acetaminophen 5-325 mg tablet 1 tablet PO Q8H PRN (Reason: pain) Qty: 14 0RF valacyclovir [Valtrex] 500 mg tablet 500 mg PO BID 7 Days Qty: 14 6RF omeprazole 20 mg capsule,delayed release(DR/EC) See Rx Instructions .ROUTE .COMPLEX Qty: 30 6RF Dose Instruction: Take 1 capsule by mouth once daily Rx Instructions: Take 1 capsule by mouth once daily Follow-up/Referrals: Andrei Clark MD [Primary Care Provider] -
[2024-11-10 12:13] LABS: EDUAAPPEAR Cloudy; EDUABILI Negative (Negative); EDUABLOOD Trace (Negative); EDUACOLOR1 Yellow; EDUAGLUCOSE 2+ (Negative); EDUAKETONE Negative (Negative); EDUALEUKO Negative (Negative); EDUANITRATE Positive (Negative); EDUAPH 5.5; EDUAPROTEIN 2+ (Negative); EDUAUROBILI 0.2
--- OUTSIDE RECORDS SUMMARY | 2024-11-17 14:24 | XMS_ITS | Patient Health Summary ---
Author Organization [facility] Address [address] [place] [address] Care Team Providers Care Retirement Consultant Name Role Phone Azam Jackson APRN-SLP Primary Care Provide r Note from [facility],non-owned Affiliates and Associated Physician Practices is amultiple site organization consisting of ambulatory clinics and hospital sitesin [place], [place], [place] and [place]. This disclosure is being madepursuant to the Care Everywhere program and may not contain all information available regarding this patient. Last updated 18.[facility] Allergies * Prochlorperazine * Ondansetron * Promethazine(Other) -Low Criticality * Metoclopramide Medications * Be aware that medications may not be up to date on this document. Alwaysverify current medications with the patient. * metFORMIN (GLUCOPHAGE) 500 MG tablet Take 500 mg by mouth 2 times daily with morning and evening meal. Has been off meds x2 years; usually controlls fairly well with diet * TRESIBA FLEXTOUCH 200 UNIT/ML pen(Started 06/12/2020) INJECT 64 UNITS SUBCUTANEOUSLY ONCE DAILY AT BEDTIME * rosuvastatin (CRESTOR) 10 MG tablet(Started 07/16/2020) TAKE 1 TABLET BY MOUTH ONCE DAILY IN THE EVENING * aspirin EC (ECOTRIN) 81 MG tablet(Started 12/28/2020) * buPROPion XL 24hr (WELLBUTRIN-XL) 150 MG tablet(Started 06/21/2021) TAKE 1 TABLET BY MOUTH ONCE DAILY IN THE MORNING * Continuous Blood Gluc Sensor (FREESTYLE AYDEE 14 DAY SENSOR) MISC(Started 12/29/2020) * FARXIGA 10 MG tablet(Started 07/23/2021) TAKE 1 TABLET BY MOUTH ONCE DAILY IN THE MORNING FOR 90 DAYS * TRULICITY 3 MG/0.5ML injection(Started 07/23/2021) INJECT 1 SUB Q ONCE A WEEK IN THE MORNING * ergocalciferol (DRISDOL) 1.25 MG (33475 UT) capsule Vitamin D2 1,250 mcg (50,000 unit) capsule * fenofibrate (LOFIBRA) 160 MG tablet(Started 05/20/2021) TAKE 1 TABLET BY MOUTH ONCE DAILY AT BEDTIME FOR 30 DAYS * fluticasone propionate (FLONASE) 50 MCG/ACT nasal spray fluticasone propionate 50 mcg/actuation nasal spray,suspension * glimepiride (AMARYL) 1 MG tablet(Started 02/14/2021) TAKE 2 TABLETS BY MOUTH TWICE DAILY BEFORE MEAL(S) * BigTwistTOUCH ULTRA test strip(Started 2021) USE A TEST STRIP TO TEST BLOOD SUGAR 3 TO 4 TIMES DAILY BEFORE MEALS * VASCEPA 0.5 g CAPS(Started 11/30/2020) * HYDROcodone-acetaminophen (NORCO) 5-325 MG tablet hydrocodone 5 mg-acetaminophen 325 mg tablet * LORazepam (ATIVAN) 1 MG tablet(Started 08/11/2020) TAKE 1 TABLET BY MOUTH PRE PROCEDURE ONCE FOR 1 DOSE * losartan-hydroCHLOROthiazide (HYZAAR) 100-25 MG tablet(Started 05/28/2021) Take 1 tablet by mouth once daily * sertraline (ZOLOFT) 100 MG tablet sertraline 100 mg tablet TAKE 1 TABLET BY MOUTH ONCE DAILY FOR 30 DAYS * traZODone (DESYREL) 100 MG tablet trazodone 100 mg tablet TAKE 1 TABLET BY MOUTH EVERY DAY AT BEDTIME NEEDED FOR 30 DAYS * calcitriol (ROCALTROL) 0.25 MCG capsule calcitriol 0.25 mcg capsule * clorazepate (TRANXENE) 7.5 MG tablet(Started 11/27/2020) Take 7.5 mg by mouth 3 times daily * naltrexone (REVIA) 50 MG tablet every 24 hours Active Problems Problem Noted Date Diagnosed Date Tension headache 07/02/2020 Insulin dependent diabetes mellitus 08/23/2019 Hypertensive retinopathy of both eyes 02/15/2019 Idiopathic intracranial hypertension 02/15/2019 Polycystic ovaries 04/04/2017 Type 2 diabetes mellitus wit hout complication, without long-term current use of insulin 04/04/2017 Hematuria 03/29/2017 Polycystic kidney disease 03/29/2017 Hypertensive chronic kidney disease 03/29/2017 Stage 1 chronic kidney disease 03/29/2017 Right flank pain 10/21/2013 Pyelonephritis 10/19/2013 Social History Tobacco Use Types Packs/Day Years Used Date Smoking Tobacco: Former Cigarettes Q uit: 06/30/2020 Smokeless Tobacco: Never Alcohol Use Standard Drinks/Week Comments No 0 (1 standard drink = 0.6 oz pur e alcohol) Sex and Gender Information Value Date Recorded Sex Assigned at Not on file Gender Identity Not on file Sexual Orientation Not on file Last Filed Vital Signs Vital Sign Reading Time Taken Comments Blood Pressure 148/90 08/11/2021 12:49 PM CDT Pulse 116 08/11/2021 12:49 PM CDT Temperature 36.8 ??C (98.2 ??F) 11/28/2020 10:[address] Respiratory Rate 17 11/28/2020 10:01 PM SURGICAL SERVICES DIRECTOR Oxygen Saturation 100% 08/11/2021 12:49 PM CDT Inhaled Oxygen Concentration - - Weight 89.4 kg (197 lb) 08/11/2021 12:49 PM CDT Height 162.6 cm (5' 4 ) 08/11/2021 12:49 PM CDT Body Mass Index 33.81 08/11/2021 12:49 PM CDT Procedures * MRI KIDNEYS WWO CONTRAST(Performed 08/11/2021) Performed for Renal cyst * CREATININE BLOOD - POINT OF CARE (IP)(Performed 08/11/2021) Performed for Renal cyst * PHOSPHORUS BLOOD(Performed 11/28/2020) * MAGNESIUM BLOOD(Performed 11/28/2020) * TSH(Performed 11/28/2020) * PROLACTIN(Performed 11/28/2020) * HCG BETA BLOOD QUANTITATIVE(Performed 11/28/2020) * COMPREHENSIVE METABOLIC PANEL(Performed 11/28/2020) * CBC W AUTO DIFFERENTIAL(Performed 11/28/2020) * BLOOD GASES SAURABH(Performed 11/28/2020) * ALCOHOL ETHYL BLOOD(Performed 11/28/2020) * ACETAMINOPHEN LEVEL(Performed 11/28/2020) * GLUCOSE - POINT OF CARE(Performed 11/28/2020) * CT HEAD WO CONTRAST(Performed 11/28/2020) Performed for Seizure (HCC) * MRI ABDOMEN WWO CONTRAST(Performed 08/12/2020) Performed for Bilateral renal cysts * CREATININE BLOOD - POINT OF CARE (IP)(Performed 08/12/2020) Performed for Bilateral renal cysts * CT CHEST PE W ABD PELVIS W CONT(Performed 02/28/2017) * XR CHEST 2VW(Performed 02/28/2017) * COMPREHENSIVE METABOLIC PANEL(Performed 02/28/2017) * HCG URINE QUALITATIVE - POCT (IP) [facility](Performed 02/28/2017) * URINALYSIS W/MICROSCOPIC NO CULTURE(Performed 02/28/2017) * LIPASE BLOOD(Performed 02/28/2017) * CBC W/O DIFFERENTIAL(Performed 02/28/2017) * D-DIMER(Performed 02/28/2017) * EKG 12-LEAD(Performed 02/27/2017) * HCG URINE QUALITATIVE - POINT OF CARE(Performed 08/14/2014) * URINALYSIS REFLEX MICROSCOPIC REFLEX CULTURE(Performed 08/14/2014) * GLUCOSE - POINT OF CARE(Performed 08/14/2014) * HCG BLOOD QUALITATIVE(Performed 10/21/2013) * CT ABDOMEN PELVIS WO CONTRAST(Performed 10/21/2013) Performed for Right flank pain * BASIC METABOLIC PANEL (CALCIUM TOTAL)(Performed 10/21/2013) * CBC W AUTO DIFFERENTIAL(Performed 10/21/2013) * URINALYSIS REFLEX TO MICROSCOPIC NO CULTURE(Performed 10/21/2013) * COMPREHENSIVE METABOLIC PANEL(Performed 10/19/2013) * CBC W AUTO DIFFERENTIAL(Performed 10/19/2013) * HCG URINE QUALITATIVE - POINT OF CARE(Performed 10/19/2013) * URINALYSIS REFLEX MICROSCOPIC REFLEX CULTURE(Performed 10/19/2013) * CULTURE URINE(Performed 10/19/2013) Results * MRI KIDNEYS WWO CONTRAST (08/11/2021 12:19 PM CDT) Anatomical Region Laterality Modality Abdomen Magnetic Resonan ce 08/11/2021 12:2 5 PM CDT Impressions 08/11/2021 12:45 PM CDT 1. ??Incidental proteinaceous cyst in the right lower renal pole. ??The remaining bilateral renal cysts are simple. ??No renal mass. 2. ??Large cluster of left pelvic cysts most likely arising from the ovary, new since 2019. ??If not previously evaluated, recommend pelvic ultrasound. *Reading Radiologist: Juan Diego Nevarez on 08/11/2021 at 12:45 PM Narrative 08/11/2021 12:45 PM CDT MRI kidneys with and without contrast DATE: 08/11/2021. INDICATION: Follow-up atypical renal cyst or mass. TECHNIQUE: Multiplanar, multisequence pre and post and a gadolinium enhanced abdominal MRI utilizing 20 cc of intravenous Dotarem (gadoterate meglumine). COMPARISON: Abdominal MRI from [address] ABDOMEN AND PELVIS from 2012. FINDINGS: The kidneys are symmetric in size. ??There are numerous predominantly simple cysts scattered throughout both kidneys approximately 8-10 in number. ??The cysts measure no more than 2.1 cm. ??In the right lower pole there is a 1.0 cm cystic structure which is bright on T1-weighted imaging. ??However there is no abnormal enhancement indicating this should represent a debris-filled proteinaceous cyst. ??There is no abnormal renal parenchymal enhancement to suggest a neoplasm. ??There is no hydronephrosis. Liver size and signal intensity is normal. ??The gallbladder is surgically absent. ??No abnormal dilatation of the biliary tree or common duct. ??The pancreas and pancreatic duct are normal. ??The spleen is normal. ??Adrenal glands are normal. ??The abdominal aorta and IVC are unremarkable. ??No retroperitoneal adenopathy. ??The visualized portions of the stomach, small bowel and colon are normal. Coronal images include portions of the upper pelvis and there is a new, large cluster of left pelvic cysts measuring in total up to 9 cm in diameter. ??Individually cysts measure up to 7 cm in diameter. ??This is most likely ovarian in origin but the full abnormality is not fully seen. ??The cysts are new since the CT in 2012. ??On the MRI from 05/09/2020 there was a cluster of cysts but measuring individually no more than 3 cm. ??Portions of the right ovary are seen and are normal in size and contain numerous small follicles. Bone marrow signal is normal. ??The lung bases are clear. Procedure Note Juan Diego Nevarez MD - 08/11/2021 MRI kidneys with and without contrast DATE: 08/11/2021. INDICATION: Follow-up atypical renal cyst or mass. TECHNIQUE: Multiplanar, multisequence pre and post and a gadolinium enhanced abdominal MRI utilizing 20 cc of intravenous Dotarem (gadoterate meglumine). COMPARISON: Abdominal MRI from [address] ABDOMEN AND PELVIS from 2012. FINDINGS: The kidneys are symmetric in size. There are numerous predominantly simple cysts scattered throughout both kidneys approximately 8-10 in number. The cysts measure no more than 2.1 cm. In the right lower pole there is a 1.0 cm cystic structure which is bright on T1-weighted imaging. However there is no abnormal enhancement indicating this should represent a debris-filled proteinaceous cyst. There is no abnormal renal parenchymal enhancement to suggest a neoplasm. There is no hydronephrosis. Liver size and signal intensity is normal. The gallbladder is surgically absent. No abnormal dilatation of the biliary tree or common duct. The pancreas and pancreatic duct are normal. The spleen is normal. Adrenal glands are normal. The abdominal aorta and IVC are unremarkable. No retroperitoneal adenopathy. The visualized portions of the stomach, small bowel and colon are normal. Coronal images include portions of the upper pelvis and there is a new, large cluster of left pelvic cysts measuring in total up to 9 cm in diameter. Individually cysts measure up to 7 cm in diameter. This is most likely ovarian in origin but the full abnormality is not fully seen. The cysts are new since the CT in 2012. On the MRI from 05/09/2020 there was a cluster of cysts but measuring individually no more than 3 cm. Portions of the right ovary are seen and are normal in size and contain numerous small follicles. Bone marrow signal is normal. The lung bases are clear. IMPRESSION 1. Incidental proteinaceous cyst in the right lower renal pole. The remaining bilateral renal cysts are simple. No renal mass. 2. Large cluster of left pelvic cysts most likely arising from the ovary, new since 2019. If not previously evaluated, recommend pelvic ultrasound. *Reading Radiologist: Juan Diego Nevarez on 08/11/2021 at 12:45 PM Trevon Monique MD MR ORDERABLES * CREATININE BLOOD - POINT OF CARE (IP) (08/11/2021 11:57 AM CDT) Only the most recent of2 resultswithin the time period is included. Creatinine POCT 1.15 0.7 - 1.2 mg/dL [facility] POCT TESTING QC Verified Yes Yes [facility] POC T TESTING Blood BLOOD SPECIMEN / Unknown 08/11/2021 11:57 AM CDT Trevon Monique MD LAB - POINT OF CAR E ORDERABLES Performing Organization Address City/[facility]/ZIP Co de Phone Number [facility] POCT TESTING [address] [place] [address] * PROLACTIN (11/28/2020 6:50 PM SURGICAL SERVICES DIRECTOR) [facility] Prolactin 4.4 2.8 - 26.0 ng/mL 12/01/2020 3:19 PM SURGICAL SERVICES DIRECTOR [employer] ([facility]) Comment: REFERENCE INTERVAL: Prolactin Access complete set of age- and/or gender-specific reference intervals for this test in the [employer] Laboratory Test Directory ([employer]). Performed By: [employer] [address] [place] [address] Nipple Machine Operator: Geraldine Mehta MD Blood BLOOD SPECIMEN / Unknown Venipuncture / Unknown 11/28/2020 6:50 PM SURGICAL SERVICES DIRECTOR 11/28/2020 6:15 PM SURGICAL SERVICES DIRECTOR Tomy Jeffrey MD LAB - CHEMISTRY ORDE LLUVIA Performing Organization Address City/[facility] Co de Phone Number [facility]) [address] [place] [address] * (ABNORMAL) CBC W AUTO DIFFERENTIAL (11/28/2020 6:50 PM SURGICAL SERVICES DIRECTOR) Only the most recent of3 resultswithin the time period is included. [facility] WBC 11.4(H) 3.5 - 10.5 10? 3 /uL 11/28/2020 7:02 PM SURGICAL SERVICES DIRECTOR [facility] LABORATORY [facility] RBC 4.22 3.90 - 5.00 10? 6 /uL 11/28/2020 7:02 PM SURGICAL SERVICES DIRECTOR [facility] Hemoglobin 11.8(L) 12.0 - 15.5 g/dL 11/28/2020 7:02 PM SURGICAL SERVICES DIRECTOR [facility] Hematocrit 35.7 35.0 - 45.0 % 11/28/2020 7:02 PM [facility] MCV 84.6 81.0 - 97.0 fL 11/28/2020 7:02 PM [facility] MCH 28.0 28.0 - 34.0 pg 11/28/2020 7:02 PM [facility] MCHC 33.1 32.0 - 36.0 g/dL 11/28/2020 7:02 PM [facility] Platelet Count 314 150 - 400 10? 3 /uL 11/28/2020 7:02 PM [facility] RDW-SD 42.0 36.0 - 50.0 fL 11/28/2020 7:02 PM [facility] RDW-CV 13.8 11.2 - 14.8 % 11/28/2020 7:02 PM [facility] MPV 8.2(L) 9.3 - 12.8 fL 11/28/2020 7:02 PM [facility] nRBC Absolute 0.00 0 10? 3 /uL 11/28/2020 7:02 PM [facility] nRBC Auto 0.0 0 /100 WBC 11/28/2020 7:02 PM [facility] Neutrophils % 60.7 35.0 - 70.0 % 11/28/2020 7:02 PM [facility] Lymphocytes % 30.8 19.7 - 55.1 % 11/28/2020 7:02 PM [facility] Monocytes % 5.4 3.0 - 15.0 % 11/28/2020 7:02 PM [facility] Eosinophils % 2.2 0.0 - 6.0 % 11/28/2020 7:02 PM [facility] Basophil % 0.4 0.0 - 1.5 % 11/28/2020 7:02 PM [facility] Neutrophils Absolute 6.9 1.6 - 7.0 10? 3 /uL 11/28/2020 7:02 PM [facility] Lymphocyte Absolute 3.5(H) 0.8 - 2.9 10? 3 /uL 11/28/2020 7:02 PM [facility] Monocytes Absolute 0.62 0.14 - 0.66 10? 3 /uL 11/28/2020 7:02 PM [facility] Eosinophils Absolute 0.25 0.00 - 0.45 10? 3 /uL 11/28/2020 7:02 PM [facility] Basophils Absolute 0.04 0.00 - 0.06 10? 3 /uL 11/28/2020 7:02 PM [facility] Immature Granulocytes % 0.5 0.0 - 1.0 % 11/28/2020 7:02 PM [facility] Blood BLOOD SPECIMEN / Unknown Venipuncture / Unknown 11/28/2020 6:50 PM SURGICAL SERVICES DIRECTOR 11/28/2020 6:15 PM SURGICAL SERVICES DIRECTOR Tomy Jeffrey MD LAB - HEMATOLOGY ORD ERABLES [facility] [address] [place] [address], [facility] [phone] * (ABNORMAL) BLOOD GASES SAURABH (11/28/2020 6:50 PM SURGICAL SERVICES DIRECTOR) pH Mixed Venous 7.42(H) 7.30 - 7.40 11/28/2020 6:59 PM [facility] pCO2 Mixed Venous 39(L) 40 - 46 mmHg 11/28/2020 6:59 PM [facility] pO2 Mixed Venous 20(L) 35 - 42 mmHg 11/28/2020 6:59 PM [facility] HCO3 Mixed Venous 25.1 22.0 - 26.0 mmol/L 11/28/2020 6:59 PM [facility] TCO2 Mixed Venous 26.3 25.0 - 29.0 mmol/L 11/28/2020 6:59 PM [facility] Base Excess Venous 0.7 -2.0 - 2.0 mmol/L 11/28/2020 6:59 PM [facility] Hemoglobin Mixed Venous 11.2(L) 12.0 - 15.5 g/dL 11/28/2020 6:59 PM [facility] Oxyhemoglobin Mixed Venous 31.5(L) 66.0 - 77.0 % 11/28/2020 6:59 PM [facility] Carboxyhemoglobin Venous 0.3 0.0 - 3.0 % 11/28/2020 6:59 PM [facility] Methemoglobin 1.4 0.0 - 2.0 % 11/28/2020 6:59 PM [facility] FI O2 Mixed Venous 21.0 % 2020 6:59 PM [facility] Blood BLOOD SPECIMEN / Unknown Venipuncture / Unknown 11/28/2020 6:50 PM SURGICAL SERVICES DIRECTOR 11/28/2020 6:54 PM SURGICAL SERVICES DIRECTOR Tomy Jeffrey MD LAB - BLOOD GASES OR DERABLES [facility] [address] [place] [address], [facility] [phone] * (ABNORMAL) COMPREHENSIVE METABOLIC PANEL (11/28/2020 6:50 PM SURGICAL SERVICES DIRECTOR) Only the most recent of3 resultswithin the time period is included. BUN 17 7 - 26 mg/dL 11/28/2020 7:23 PM [facility] Creatinine 0.7 0.6 - 1.2 mg/dL 11/28/2020 7:23 PM [facility] Sodium 137 136 - 145 mmol/L 11/28/2020 7:23 PM [facility] Potassium 3.8 3.5 - 4.5 mmol/L 11/28/2020 7:23 PM [facility] Chloride 99 98 - 107 mmol/L 11/28/2020 7:23 PM [facility] CO2 22 22 - 29 mmol/L 11/28/2020 7:23 PM [facility] Glucose 85 70 - 115 mg/dL 11/28/2020 7:23 PM [facility] Calcium 9.8 8.4 - 10.2 mg/dL 11/28/2020 7:23 PM [facility] Protein Total 8.1 6.0 - 8.3 g/dL 11/28/2020 7:23 PM [facility] Albumin 3.8 3.4 - 5.0 g/dL 11/28/2020 7:23 PM [facility] Bilirubin Total 0.3 0.2 - 1.2 mg/dL 11/28/2020 7:23 PM [facility] Alkaline Phosphatase 74 40 - 150 Units/L 11/28/2020 7:23 PM [facility] ALT 28 0 - 55 Units/L 11/28/2020 7:23 PM [facility] AST 26 5 - 34 Units/L 11/28/2020 7:23 PM [facility] Anion Gap 20(H) 8 - 18 11/28/2020 7:23 PM [facility] BUN/Creatinine Ratio 24(H) 7 - 23 11/28/2020 7:23 PM [facility] Osmolality Calculated 285 270 - 300 mOsm/kg 11/28/2020 7:23 PM [facility] Albumin/Globulin Ratio 0.9(L) 1.1 - 2.3 11/28/2020 7:23 PM [facility] eGFR >60 >60 mL/min/1.7 3 m2 11/28/2020 7:23 PM [facility] Blood BLOOD SPECIMEN / Unknown Venipuncture / Unknown 11/28/2020 6:50 PM SURGICAL SERVICES DIRECTOR 11/28/2020 6:15 PM [facility] Tomy Jeffrey MD LAB - CHEMISTRY [facility] Organization Address City/State/ZIP Co de Phone Number [facility] [address] [place] [address], [facility] [phone] * HCG BETA BLOOD QUANTITATIVE (11/28/2020 6:50 PM [facility]) Beta-hCG Total Quantitative <3 <5 mIU/mL 11/28/2020 7:39 PM [facility] Comment: This assay is cleared for use in the early detection of only. It is not approved for any other uses such as tumor marker screening, tumor marker monitoring, etc. and should not be used for any other purposes. HCG Numeric Result Interpretation: ? Non- Females: ? < 5 mIU/mL ? Post-Menopausal Females: ??< 7 mIU/mL ? Blood BLOOD SPECIMEN / Unknown Venipuncture / Unknown 11/28/2020 6:50 PM SURGICAL SERVICES DIRECTOR 11/28/2020 6:15 PM SURGICAL SERVICES DIRECTOR Tomy Jeffrey MD LAB - CHEMISTRY MARCEL TEIXEIRA Performing Organization Address City/[facility]/ZIP Co de Phone Number [address] [address], [place] [phone] * PHOSPHORUS BLOOD (11/28/2020 6:50 PM SURGICAL SERVICES DIRECTOR) Phosphorus 3.7 2.3 - 4.7 mg/dL 11/28/2020 7:23 PM SURGICAL SERVICES DIRECTOR [facility] Blood BLOOD SPECIMEN / Unknown Venipuncture / Unknown 11/28/2020 6:50 PM SURGICAL SERVICES DIRECTOR 11/28/2020 6:15 PM SURGICAL SERVICES DIRECTOR Tomy Jeffrey MD LAB - CHEMISTRY MARCEL TEIXEIRA Performing Organization Address [facility]/ZIP Co de Phone Number [address] [address], [facility] [phone] * MAGNESIUM BLOOD (11/28/2020 6:50 PM SURGICAL SERVICES DIRECTOR) Magnesium 1.9 1.6 - 2.6 mg/dL 11/28/2020 7:23 PM SURGICAL SERVICES DIRECTOR [facility] Blood BLOOD SPECIMEN / Unknown Venipuncture / Unknown 11/28/2020 6:50 PM SURGICAL SERVICES DIRECTOR 11/28/2020 6:15 PM SURGICAL SERVICES DIRECTOR Tomy Jeffrey MD LAB - CHEMISTRY MARCEL TEIXEIRA [address] [address], [place] [phone] * ALCOHOL ETHYL BLOOD (11/28/2020 6:50 PM SURGICAL SERVICES DIRECTOR) Interpretation Ethanol None Detected None Detected mg/dL 11/28/2020 7:23 PM SURGICAL SERVICES DIRECTOR [facility] Comment:Ethanol levels less than 10 mg/dL are resulted as None detected . Blood BLOOD SPECIMEN / Unknown Venipuncture / Unknown 11/28/2020 6:50 PM SURGICAL SERVICES DIRECTOR 11/28/2020 6:15 PM SURGICAL SERVICES DIRECTOR Tomy Jeffrey MD LAB - CHEMISTRY MARCEL TEIXEIRA [address] [address], [place] [phone] * TSH (11/28/2020 6:50 PM SURGICAL SERVICES DIRECTOR) TSH 1.087 0.350 - 4.940 uIU/mL 11/28/2020 7:39 PM SURGICAL SERVICES DIRECTOR [facility] Blood BLOOD SPECIMEN / Unknown Venipuncture / Unknown 11/28/2020 6:50 PM SURGICAL SERVICES DIRECTOR 11/28/2020 6:15 PM SURGICAL SERVICES DIRECTOR Tomy Jeffrey MD LAB - CHEMISTRY MARCEL TEIXEIRA Performing Organization Address City/[facility]/ZIP Co de Phone Number [address] [address], [place] [phone] * ACETAMINOPHEN LEVEL (11/28/2020 6:50 PM SURGICAL SERVICES DIRECTOR) Pathologist [facility] Acetaminophen <3.0 <30.0 mcg/mL 11/28/2020 7:23 PM SURGICAL SERVICES DIRECTOR [facility] Blood BLOOD SPECIMEN / Unknown Venipuncture / Unknown 11/28/2020 6:50 PM SURGICAL SERVICES DIRECTOR 11/28/2020 6:15 PM SURGICAL SERVICES DIRECTOR Tomy Jeffrey MD LAB - CHEMISTRY MARCEL TEIXEIRA [address] [address], [place] [phone] * GLUCOSE - POINT OF CARE (11/28/2020 6:44 PM SURGICAL SERVICES DIRECTOR) Only the most recent of2 resultswithin the time period is included. Glucose WB/POC 86 70 - 115 mg/dL 11/28/2020 6:54 PM SURGICAL SERVICES DIRECTOR [facility] Specimen Type Arterial/C apillary 11/28/2020 6:54 PM SURGICAL SERVICES DIRECTOR [facility] Blood BLOOD SPECIMEN / Unknown 11/28/2020 6:44 PM SURGICAL SERVICES DIRECTOR 11/28/2020 6:54 PM SURGICAL SERVICES DIRECTOR Dario Aponte MD LAB - POINT OF CARE ORDERABLES [facility] [address] [place] [address], [facility] [phone] * CT HEAD WO CONTRAST (11/28/2020 4:30 PM SURGICAL SERVICES DIRECTOR) Anatomical Region Laterality Modality Head Computed Tomogra phy 11/28/2020 4:59 PM SURGICAL SERVICES DIRECTOR Impressions 11/29/2020 8:52 AM SURGICAL SERVICES DIRECTOR IMPRESSION: Normal examination of the brain. No acute intracranial hemorrhage, midline shift, or significant mass effect. Dictated by Anibal Sky MD ([facility]) I, Dr. AJAY BAJWA have personally reviewed and interpreted this examination/study. This report was electronically signed by AJAY BAJWA ??on 11/29/2020 8:52 AM . Narrative 11/29/2020 8:[address] HEAD WITHOUT CONTRAST, 11/28/2020 4:30 PM HISTORY: R56.9: Seizure TECHNIQUE: CT of the head was performed without contrast according to standard protocol. COMPARISON: No prior study is available for comparison at the time of this dictation. FINDINGS: No acute intra- or extra-axial hemorrhage is identified. The ventricles are of normal size, shape, and morphology. The basal cisterns are patent. No mass effect or midline shift is seen. The barrera-white matter differentiation is normal. There are no visible white matter changes. The orbits, orbital contents, imaged paranasal sinuses, and mastoids appear normal. No acute fracture is identified. A prominent diploic vein is seen coursing through the frontal bone through the left frontal sinus exiting at the left superior orbital rim. Procedure Note Ajay Bajwa MD - 11/29/2020 CT HEAD WITHOUT CONTRAST, 11/28/2020 4:30 PM HISTORY: R56.9: Seizure TECHNIQUE: CT of the head was performed without contrast according to standard protocol. COMPARISON: No prior study is available for comparison at the time ofthis dictation. FINDINGS: No acute intra- or extra-axial hemorrhage is identified. The ventricles are of normal size, shape, and morphology. The basal cisterns arepatent. No mass effect or midline shift is seen. The barrera-white matter differentiation is normal. There are no visible white matter changes. The orbits, orbital contents, imaged paranasal sinuses, and mastoids appear normal. No acute fracture is identified. A prominent diploic vein is seen coursing through the frontal bone through the left frontal sinus exiting at the left superior orbital rim. IMPRESSION: Normal examination of the brain. No acute intracranial hemorrhage,midline shift, or significant mass effect. Dictated by Anibal Sky MD (Rod Placer) I, Dr. AJAY BAJWA have personally reviewed and interpreted this examination/study. This report was electronically signed by AJAY BAJWA on 11/29/2020 8:52 AM . Tomy Jeffrey MD CT ORDERABLES * MRI ABDOMEN WWO CONTRAST (08/12/2020 11:46 AM CDT) Anatomical Region Laterality Modality Abdomen Magnetic Resonan ce 08/12/2020 12:0 1 PM CDT Narrative 08/12/2020 12:24 PM CDT MRI ABDOMEN WITH AND WITHOUT CONTRAST HISTORY: Renal lesions for further evaluation. TECHNIQUE: Routine MR abdomen is obtained including postcontrast dynamic gradient T1 weighted sequences following intravenous administration of 17 mL of Dotarem. Comparison is made to CT abdomen and pelvis 10/21/2013. No other imaging is available. The kidneys appear grossly normal in size and signal intensity. There are numerous bilateral T2 hyperintense renal lesions, the largest of which on the right is within the inferior pole and measures 2.2 cm, and the largest of which on the left is in the upper pole and measures 1.8 cm. No obstructive uropathy is seen. There is a solitary T1 hyperintense lesion in the inferior pole of the right kidney measuring 0.7 cm. No enhancing lesion is seen following intravenous contrast administration although the T1 hyperintense lesion is somewhat poorly visualized. The visualized renal veins are normal. The proximal ureters are unremarkable. The visualized liver, spleen, pancreas and adrenal glands are normal. The visualized stomach and large and small bowel appear grossly unremarkable. There are complex likely ovarian cysts within the left adnexa, seen best on the coronal T2-weighted series, see images 16 through 22. The aorta and its branches enhance normally. No adenopathy is seen. DIAGNOSIS: Multiple T2 hyperintense cysts without enhancement. There is a likely T1 hyperintense hemorrhagic cyst in the inferior pole of the right kidney, somewhat poorly characterized or visualized on postcontrast imaging. Complex left ovarian cysts are present. Follow-up pelvic ultrasound is recommended. Edited by Lyric Saunders on 08/12/2020 12:17 PM *Reading Radiologist: Juan Pablo Reese on 08/12/2020 at 12:24 PM Procedure Note Juan Pablo Reese MD - 08/12/2020 MRI ABDOMEN WITH AND WITHOUT CONTRAST HISTORY: Renal lesions for further evaluation. TECHNIQUE: Routine MR abdomen is obtained including postcontrast dynamic gradient T1 weighted sequences following intravenous administration of 17 mL of Dotarem. Comparison is made to CT abdomen and pelvis 10/21/2013. No other imaging is available. The kidneys appear grossly normal in size and signal intensity. There are numerous bilateral T2 hyperintense renal lesions, the largest of which on the right is within the inferior pole and measures 2.2 cm, and the largest of which on the left is in the upper pole and measures 1.8 cm. No obstructive uropathy is seen. There is a solitary T1 hyperintense lesion in the inferior pole of the right kidney measuring 0.7 cm. No enhancing lesion is seen following intravenous contrast administration although the T1 hyperintense lesion is somewhat poorly visualized. The visualized renal veins are normal. The proximal ureters are unremarkable. The visualized liver, spleen, pancreas and adrenal glands are normal. The visualized stomach and large and small bowel appear grossly unremarkable. There are complex likely ovarian cysts within the left adnexa, seen best on the coronal T2-weighted series, see images 16 through 22. The aorta and its branches enhance normally. No adenopathy is seen. DIAGNOSIS: Multiple T2 hyperintense cysts without enhancement. There is a likely T1 hyperintense hemorrhagic cyst in the inferior pole of the right kidney, somewhat poorly characterized or visualized on postcontrast imaging. Complex left ovarian cysts are present. Follow-up pelvic ultrasound is recommended. Edited by Lyric Saunders on 08/12/2020 12:17 PM *Reading Radiologist: Juan Pablo Reese on 08/12/2020 at 12:24 PM Trevon Monique MD MR ORDERABLES * CT CHEST PE W ABD PELVIS W CONT (02/28/2017 3:37 AM CDT) Anatomical Region Laterality Modality Chest, Abdomen, Pelvis Other Impressions 02/28/2017 3:29 PM CDT IMPRESSION: 1. No CT evidence of pulmonary embolism. 2. No acute process identified in the abdomen or pelvis. 3. Multiple low-attenuation lesions in the kidneys some of which measures simple fluid attenuation representing cysts and others are higher than simple fluid attenuation. Renal sonogram would be helpful for further evaluation. Left message with the ED skiver uppers or linings that the prelim is available in [facility]. Dictated by Sergio Navas MD (vice president education). This report was approved ??by Sergio Navas ?? on 02/28/2017 11:28 AM . I, Dr. TRENTON LUIS M.D. have personally reviewed and interpreted this examination/study. This report was electronically signed by TRENTON LUIS M.D. ??on 02/28/2017 3:29 PM . Narrative 02/28/2017 3:29 PM CDT EXAMINATION: 1. Computed tomography (CT) of the chest with contrast 2. CT of the abdomen and pelvis with contrast HISTORY: Chest pain and family history of pulmonary embolism as well as lower abdominal pain. TECHNIQUE: CT of the chest was performed following the uneventful administration of 100 mL of Omnipaque 350 intravenous contrast according to a pulmonary embolism protocol. CT of the abdomen and pelvis was also performed during the portal venous phase according to standard protocol. COMPARISON: No prior study is available for comparison. FINDINGS: Chest: There are no filling defects in the pulmonary arteries to suggest pulmonary embolism. The main pulmonary artery is normal in course and caliber. There is a left-sided three-vessel aortic arch. The aorta is normal in course and caliber. The heart size is normal. No pericardial effusion is present. No mediastinal, hilar, supraclavicular, or axillary lymphadenopathy is seen. The lungs are clear of focal consolidation. An azygos lobe is a normal variant. No pleural effusion or focal pleural thickening is identified. There is no evidence of pneumothorax. No suspicious pulmonary nodule is identified. The trachea is patent and midline. Abdomen/pelvis: The liver enhances homogenously. The gallbladder is surgically absent. The intrahepatic and extrahepatic bile ducts are nondilated. The spleen enhances homogenously without focal lesion. The pancreas and adrenal glands are normal. Multiple low attenuating lesions in both kidneys some of which measure fluid attenuation representing cysts and others measure higher than simple fluid attenuation. Otherwise the kidneys enhance symmetrically. There is no evidence of renal calculus or hydronephrosis. The esophagus and stomach appear normal. The small bowel and large bowel are normal in caliber without evidence of wall thickening or obstruction. The appendix appears normal without appendicolith or surrounding inflammatory changes. No free air or free fluid is identified within the abdomen. There is no abdominal lymphadenopathy. The abdominal aorta is normal in course and caliber. A replaced right hepatic artery arises from the superior mesenteric artery. An accessory right renal artery is present. The urinary bladder is nondistended. The uterus is normal. Bilateral ovarian cysts are present. No free fluid is seen within the pelvis. There is no pelvic lymphadenopathy. Bone windows demonstrate no suspicious lytic or blastic lesions. The visible osseous structures are intact. Procedure Note Trenton Luis MD - 02/16/2018 EXAMINATION: 1. Computed tomography (CT) of the chest with contrast 2. CT of the abdomen and pelvis with contrast HISTORY: Chest pain and family history of pulmonary embolism as well aslower abdominal pain. TECHNIQUE: CT of the chest was performed following the uneventfuladministration of 100 mL of Omnipaque 350 intravenous contrast accordingto a pulmonary embolism protocol. CT of the abdomen and pelvis was alsoperformed during the portal venous phase according to standard protocol. COMPARISON: No prior study is available for comparison. FINDINGS: Chest: There are no filling defects in the pulmonary arteries to suggestpulmonary embolism. The main pulmonary artery is normal in course andcaliber. There is a left-sided three-vessel aortic arch. The aorta isnormal in course and caliber. The heart size is normal. No pericardial effusion is present. Nomediastinal, hilar, supraclavicular, or axillary lymphadenopathy isseen. The lungs are clear of focal consolidation. An azygos lobe is a normalvariant. No pleural effusion or focal pleural thickening is identified.There is no evidence of pneumothorax. No suspicious pulmonary nodule isidentified. The trachea is patent and midline. Abdomen/pelvis: The liver enhances homogenously. The gallbladder is surgically absent. Theintrahepatic and extrahepatic bile ducts are nondilated. The spleenenhances homogenously without focal lesion. The pancreas and adrenalglands are normal. Multiple low attenuating lesions in both kidneys some of which measure fluidattenuation representing cysts and others measure higher than simple fluidattenuation. Otherwise the kidneys enhance symmetrically. There is noevidence of renal calculus or hydronephrosis. The esophagus and stomach appear normal. The small bowel and large bowelare normal in caliber without evidence of wall thickening or obstruction.The appendix appears normal without appendicolith or surroundinginflammatory changes. No free air or free fluid is identified within the abdomen. There is no abdominallymphadenopathy. The abdominal aorta is normal in course and caliber. Areplaced right hepatic artery arises from the superior mesenteric artery.An accessory right renal artery is present. The urinary bladder is nondistended. The uterus is normal. Bilateralovarian cysts are present. No free fluid is seen within the pelvis. Thereis no pelvic lymphadenopathy. Bone windows demonstrate no suspicious lytic or blastic lesions. Thevisible osseous structures are intact. IMPRESSION IMPRESSION: 1. No CT evidence of pulmonary embolism. 2. No acute process identified in the abdomen or pelvis. 3. Multiple low-attenuation lesions in the kidneys some of which measuressimple fluid attenuation representing cysts and others are higher thansimple fluid attenuation. Renal sonogram would be helpful for furtherevaluation. Left message with the ED skiver uppers or linings that the prelim is available inSynapse. Dictated by Sergio Navas MD (vice president education). This report was approved by Sergio Navas on 02/28/2017 11:28 AM . IDr. TRENTON M.D. have personally reviewed and interpreted thisexamination/study. This report was electronically signed by TRENTON LUIS M.D. on 02/28/20173:29 PM . Charisse Leyva MD CT ORDERABLES * XR CHEST 2VW (02/28/2017 2:13 AM CDT) Anatomical Region Laterality Modality Chest Other Impressions 02/28/2017 9:28 AM CDT IMPRESSION: No acute pulmonary process. Dictated by Chin Aguilera MD (vice president education). This report was approved ??by Chin Aguilera M.D. ?? on 02/28/2017 9:[address] CHAYITO Sanderson M.D. have personally reviewed and interpreted this examination/study. This report was electronically signed by CHAYITO MCPHERSON M.D. ??on 02/28/2017 9:28 AM . Narrative 02/28/2017 9:28 AM CDT EXAMINATION: XR CHEST PA AND LATERAL HISTORY: Chest pain COMPARISON: No prior study is available for comparison. FINDINGS: There is no focal consolidation, pleural effusion, or pneumothorax. The cardiomediastinal silhouette is normal. The visible bony thorax is intact. Procedure Note Chayito Mcpherson MD - 02/16/2018 EXAMINATION: XR CHEST PA AND LATERAL HISTORY: Chest pain COMPARISON: No prior study is available for comparison. FINDINGS: There is no focal consolidation, pleural effusion, or pneumothorax. Thecardiomediastinal silhouette is normal. The visible bony thorax isintact. IMPRESSION IMPRESSION: No acute pulmonary process. Dictated by Chin Aguilera MD (vice president education). This report was approved by Chin Aguilera M.D. on 02/28/2017 9:[address] CHAYITO Sanderson M.D. have personally reviewed and interpreted thisexamination/study. This report was electronically signed by CHAYITO MCPHERSON M.D. on 02/28/20179:28 AM . Charisse Leyva MD DIAGNOSTIC IMAGING O RDERABLES * HCG URINE QUALITATIVE - POCT (IP) [facility] (02/28/2017 12:35 AM CDT) Test Urine negative [facility] Urine specimen (specimen) 02/28/2017 12:35 AM CDT Charisse Leyva MD LAB - POINT OF CARE ORDERABLES [facility] * (ABNORMAL) URINALYSIS W/MICROSCOPIC NO CULTURE (02/28/2017 12:33 AM CDT) Color UA Yellow Straw, Yellow, Colorless, Light Yellow [facility] Clarity UA Clear Clear [facility] Specific [place] UA 1.030 1.001 - 1.030 [facility] pH UA 5.5 5.0 - 8.0 [facility] Protein UA 20 <=20 mg/dL [facility] Glucose UA >1000(A) Negative mg/dL [facility] Ketone UA Trace(A) Negative mg/dL [facility] Bilirubin UA Negative Negative mg/dL [facility] Blood UA Negative Negative [facility] Nitrite UA Negative Negative [facility] Leukocyte Esterase Negative Negative [facility] Urobilinogen UA <2.0 <2.0 mg/dL [facility] RBC UA 4 0 - 8 /HPF [facility] WBC UA 1 0 - 2 /HPF [facility] Squamous Epithelial Cells UA 7(H) 0 - 1 /HPF [facility] Mucus UA Rare(A) None /LPF [facility] Urine specimen (specimen) 02/28/2017 12:33 AM CDT 02/28/2017 12:53 AM CDT Charisse Leyva MD LAB - URINALYSIS ORD ERABLES [address] [phone] * LIPASE BLOOD (02/28/2017 12:29 AM CDT) Lipase 38 8 - 78 Units/L [facility] Blood specimen (specimen) BLOOD SPECIMEN / Unknown 02/28/2017 12:29 AM CDT 02/28/2017 12:52 AM CDT Charisse Leyva MD LAB - CHEMISTRY ORDE RABLES [address] [phone] * (ABNORMAL) CBC W/O DIFFERENTIAL (02/28/2017 12:29 AM CDT) WBC 7.8 3.5 - 10.5 10? 3 /uL [facility] RBC 4.33 3.90 - 5.00 10? 6 /uL [facility] Hemoglobin 11.6(L) 12.0 - 15.5 g/dL [facility] Hematocrit 35.4 35.0 - 45.0 % [facility] MCV 81.8 81.0 - 97.0 fL [facility] MCH 26.8(L) 28.0 - 34.0 pg [facility] MCHC 32.8 32.0 - 36.0 g/dL [facility] Platelet Count 250 150 - 400 10? 3 /uL [facility] RDW-SD 41.6 36.0 - 50.0 fL [facility] RDW-CV 13.9 11.2 - 14.8 % [facility] MPV 9.0(L) 9.3 - 12.8 fL [facility] nRBC Absolute 0.00 0 10? 3 /uL [facility] nRBC Auto 0.0 0 /100 WBC [facility] Blood specimen (specimen) BLOOD SPECIMEN / Unknown 02/28/2017 12:29 AM CDT 02/28/2017 12:52 AM CDT Charisse Leyva MD LAB - HEMATOLOGY ORD ERABLES [facility] [address] [place] [address] * D-DIMER (02/28/2017 12:29 AM CDT) D-Dimer Quantitative <0.27 <=0.50 mcg/mL FEU [facility] Comment: In the absence of clinical symptoms, a value less than or equal to 0.5 mcg/mL FEU significantly decreases the probability of PE/DVT (negative predictive value >95%). 1 mcg/mL FEU = 1 Fibrinogen Equivalent Unit (approximates 0.5 mcg/ml of D- Dimer). ?ISTH DIAGNOSTIC SCORING SYSTEM FOR DIC ?Score ?0 ? 1 ? 2 ?3 ?? Platelet Count(x10^3/uL) ?> 100 ?? < 100 ?? < 50 ?N/A PT Prolongation above ? upper limit of normal ?0-3 ? 3-6 ? > 6 ?N/A range (seconds) ? Fibrinogen (mg/dL) ?> 100 ?? < 100 ?N/A ?N/A D-Dimer (mcg/mL FEU) ? < 0.50 ?N/A ? 0.50-5.0 ??> 5 Calculate Cumulative Score: > or = 5 :compatible with overt DIC ? < 5 :suggestive for non-overt DIC N/A = Non applicable Reference: Br. J. Haematol. 145:24-33,2009. Blood specimen (specimen) BLOOD SPECIMEN / Unknown 02/28/2017 12:29 AM CDT 02/28/2017 12:52 AM CDT Charisse Leyva MD LAB - COAGULATION OR DERABLES Performing Organization Address [facility] Phone Number [facility] [address] [phone] * EKG 12-LEAD (02/27/2017 12:00 AM CDT) EKG [facility] Comment: Exam Date/Time: ?? Feb 27 2017 21:18:53 Test Reason : chest pain Blood Pressure : / mmHG Vent. Rate : 110 BPM ? Atrial Rate : 110 BPM ?? P-R Int : 152 ms ?QRS Dur : 078 ms ?QT Int : 354 ms ? P-R-T Axes : 049 029 059 degrees ?? QTc Int : 479 ms Sinus tachycardia Otherwise normal ECG No previous ECGs available Confirmed by MD Pao, Hanane ([id number]), industrial editor CHRISTINA HASSAN ([id number]) on 03/06/2017 7:00:51 PM Referred By: REFERRING NO ? Confirmed By:Hanane Cedeno MD 02/27/2017 Charisse Leyva MD ECG ORDERABLES [facility] * HCG URINE QUALITATIVE - POINT OF CARE (IP) (08/14/2014 2:11 AM CDT) Only the most recent of2 resultswithin the time period is included. HCG Qual Urine Negative Negative [facility] POCT TESTING QC Verified Yes Yes [facility] POC T TESTING Urine specimen (specimen) URINE / Unknown 08/14/2014 2:11 AM CDT Paco Gore MD LAB - POINT OF CARE ORDERABLES Performing Organization Address City/[facility]/ZIP Co de Phone Number [facility] POCT TESTING [address] [place] [address], [facility] * (ABNORMAL) URINALYSIS ROUTINE W/REFLEX TO CULTURE (08/14/2014 2:10 AM CDT) Only the most recent of2 resultswithin the time period is included. Color UA Yellow Straw, Yellow, Dark Yellow 08/14/2014 2:25 AM CDT [facility] Clarity UA Clear 08/14/2014 2:25 AM T [facility] Specific [place] UA 1.015 1.005 - 1.030 08/14/2014 2:25 AM T [facility] pH UA 6.0 5.0 - 8.0 pH 08/14/2014 2:25 AM [facility] Protein UA Trace(A) Negative 08/14/2014 2:25 AM T [facility] Blood UA Trace(A) Negative 08/14/2014 2:25 AM T [facility] Leukocyte UA Negative Negative 08/14/2014 2:25 AM T [facility] Nitrite UA Negative Negative 08/14/2014 2:25 AM T [facility] Glucose UA 3+(A) Negative 08/14/2014 2:25 AM CDT [facility] Ketone UA Negative Negative 08/14/2014 2:25 AM [facility] Bilirubin UA Negative Negative 08/14/2014 2:25 AM T [facility] Urobilinogen UA 0.2 0.1 - 1.0 EU/dL 08/14/2014 2:25 AM T [facility] WBC UA Auto 5-10(A) 0-2, 2-5 #/hpf 08/14/2014 2:25 AM CDT [facility] RBC UA Auto 0-2 0-2, 2-5 #/hpf 08/14/2014 2:25 AM CDT [facility] Epithelial Cell UA Auto 2-5 0-2, 2-5 #/hpf 08/14/2014 2:25 AM CDT [facility] Urine Microscopy Urine microscopy not indicated 08/14/2014 2:25 AM CDT [facility] Reflex Status Culture not indicated 08/14/2014 2:25 AM CDT [facility] Urine URINE SPECIMEN OBTAINED BY CLEAN CATCH PROCEDURE / Unknown 08/14/2014 2:10 AM CDT 08/14/2014 2:16 AM CDT Paco Gore MD LAB - URINALYSIS ORD ERABLES Performing Organization Address [facility]/ZIP Co de Phone Number [facility] [address] [place] [address] * HCG BLOOD QUALITATIVE (10/21/2013 1:03 PM SURGICAL SERVICES DIRECTOR) HCG Qual Serum Negative Negative 10/21/2013 1:31 PM SURGICAL SERVICES DIRECTOR [facility] Blood BLOOD SPECIMEN / Unknown Venipuncture / Unknown 10/21/2013 1:03 PM SURGICAL SERVICES DIRECTOR 10/21/2013 1:19 PM SURGICAL SERVICES DIRECTOR Narrative [facility] - 10/21/2013 1:31 PM SURGICAL SERVICES DIRECTOR Specimens containing heterophilic antibodies may demonstrate false positive results. ??Specimens containing human anti-mouse antibodies may exhibit false positive or false negative results. If qualitative interpretation is inconsistant with clinical evaluation, consider confirmation by an alternative HCG method. Boy Alfonso MD LAB - CHEMISTRY ORDE LLUVIA Performing Organization Address City/[facility]/ZIP Co de Phone Number [facility] [address] [place] [address] * Stone Protocol CT (10/21/2013 1:02 PM SURGICAL SERVICES DIRECTOR) Anatomical Region Laterality Modality Abdomen, Pelvis Computed Tomogra phy 10/21/2013 1:35 PM SURGICAL SERVICES DIRECTOR Impressions 10/21/2013 1:39 PM SURGICAL SERVICES DIRECTOR No obstruction or definite urinary stone seen at this time. A 1.3 CM cyst is suspected in the left ovary. Narrative 10/21/2013 1:39 PM SURGICAL SERVICES DIRECTOR Examination: Noncontrast Abdomen and Pelvic CT Indication: Hematuria with right flank pain. Technique: Noncontrast CT images of the abdomen and pelvis were performed. ??The stone protocol ??without IV contrast and without oral contrast was requested for this examination. Findings: CT Abdomen: ??No calcified stones can be seen in the right or left kidneys. ??No obstruction can be seen. ??The liver, spleen and pancreas have a homogeneous CT density but cannot be fully evaluated on this limited protocol exam. ??No dilated bowel loops can be seen. ??There is no free fluid in the abdomen. ??Surgical clips are noted in the right upper quadrant consistent with a prior cholecystectomy. CT Pelvis: ??No calcified stones can be seen in the course of the distal ureters. ??No pelvic mass is present. ??The appendix is retrocecal and normal in size. ??A 1.[address] density collection is noted in the left adnexa. ??This report was transcribed with a computerized speech recognition system. ??In an effort to expedite patient care, it has not been adjusted for typographical, grammatical or syntax problems by a trained biomedical manager. For questions about the report, please contact the Radiology Department. Procedure Note Nick Barry MD - 10/21/2013 Examination: Noncontrast Abdomen and Pelvic CT Indication: Hematuria with right flank pain. Technique: Noncontrast CT images of the abdomen and pelvis were performed. The stone protocol without IV contrast and without oral contrast was requested for this examination. Findings: CT Abdomen: No calcified stones can be seen in the right or left kidneys. No obstruction can be seen. The liver, spleen and pancreas have a homogeneous CT density but cannot be fully evaluated on this limited protocol exam. No dilated bowel loops can be seen. There is no free fluid in the abdomen. Surgical clips are noted in the right upper quadrant consistent with a prior cholecystectomy. CT Pelvis: No calcified stones can be seen in the course of the distal ureters. No pelvic mass is present. The appendix is retrocecal and normal in size. A 1.[address] density collection is noted in the left adnexa. This report was transcribed with a computerized speech recognition system. In an effort to expedite patient care, it has not been adjusted for typographical, grammatical or syntax problems by a trained biomedical manager. For questions about the report, please contact the Radiology Department. IMPRESSION No obstruction or definite urinary stone seen at this time. A 1.3 CM cyst is suspected in the left ovary. Boy Alfonso MD CT ORDERABLES * (ABNORMAL) BASIC METABOLIC PANEL (CALCIUM TOTAL) (10/21/2013 12:46 PM SURGICAL SERVICES DIRECTOR) Glucose 147(H) 74 - 106 mg/dL 10/21/2013 1:10 PM [facility] Sodium 139 136 - 145 mmol/L 10/21/2013 1:10 PM [facility] Potassium 3.9 3.5 - 5.1 mmol/L 10/21/2013 1:10 PM [facility] Chloride 105 98 - 107 mmol/L 10/21/2013 1:10 PM [facility] CO2 26 22 - 31 mmol/L 10/21/2013 1:10 PM [facility] Calcium 9.1 8.5 - 10.1 mg/dL 10/21/2013 1:10 PM [facility] Anion Gap 8 5 - 15 mmol/L 10/21/2013 1:10 PM [facility] BUN 17 7 - 21 mg/dL 10/21/2013 1:10 PM [facility] Creatinine 0.44(L) 0.50 - 1.30 mg/dL 10/21/2013 1:10 PM [facility] eGFR by MDRD >60 >60 mL/min/1.7 3m2 10/21/2013 1:10 PM [facility] eGFR by MDRD >60 >60 mL/min/1.7 3m2 10/21/2013 1:10 PM [facility] Blood BLOOD SPECIMEN / Unknown Venipuncture / Unknown 10/21/2013 12:46 PM SURGICAL SERVICES DIRECTOR 10/21/2013 12:56 PM SURGICAL SERVICES DIRECTOR Boy Alfonso MD LAB - CHEMISTRY MARCEL TEIX[facility]IR[facility] Organization Address City/State/ZIP Co de Phone Number [facility] [address] [address] * (ABNORMAL) URINALYSIS ROUTINE AUTO (10/21/2013 11:44 AM SURGICAL SERVICES DIRECTOR) Color UA Yellow Straw, Yellow, Dark Yellow 10/21/2013 11:56 AM [facility] Clarity UA Cloudy 10/21/2013 11:56 AM [facility] Specific [place] UA 1.029 1.005 - 1.030 10/21/2013 11:56 AM [facility] pH UA 5.0 5.0 - 8.0 pH 10/21/2013 11:56 AM [facility] Protein UA 2+(A) Negative 10/21/2013 11:56 AM [facility] Blood UA 2+(A) Negative 10/21/2013 11:56 AM [facility] Leukocyte UA Negative Negative 10/21/2013 11:56 AM [facility] Nitrite UA Negative Negative 10/21/2013 11:56 AM [facility] Glucose UA Negative Negative 10/21/2013 11:56 AM [facility] Ketone UA Negative Negative 10/21/2013 11:56 AM [facility] Bilirubin UA 1+(A) Negative 10/21/2013 11:56 AM [facility] Urobilinogen UA 0.2 0.1 - 1.0 EU/dL 10/21/2013 11:56 AM [facility] WBC UA Auto 10-20(A) 0-2, 2-5 #/hpf 10/21/2013 11:56 AM [facility] RBC UA Auto 2-5 0-2, 2-5 #/hpf 10/21/2013 11:56 AM [facility] Epithelial Cell UA Auto 5-10(A) 0-2, 2-5 #/hpf 10/21/2013 11:56 AM [facility] Hyaline Casts UA Auto 2-5(A) 0 - 2 #/lpf 10/21/2013 11:56 AM [facility] Urine URINE SPECIMEN OBTAINED BY CLEAN CATCH PROCEDURE / Unknown Collection / Unknown 10/21/2013 11:44 AM [facility] 10/21/2013 11:49 AM [facility] Boy Alfonso MD LAB - URINALYSIS ORD ERABLES [facility] [address] [address] * (ABNORMAL) CULTURE URINE (10/19/2013 11:50 AM SURGICAL SERVICES DIRECTOR) Culture 10,000-50,000 CFU/mL Streptococcus agalactiae (Group B)(A) 10/21/2013 8:34 AM SURGICAL SERVICES DIRECTOR [facility] Culture <10,000 CFU/mL normal enteric marin 10/21/2013 8:34 AM [facility] Urine URINE SPECIMEN OBTAINED BY CLEAN CATCH PROCEDURE / Unknown 10/19/2013 11:50 AM SURGICAL SERVICES DIRECTOR 10/19/2013 11:50 AM SURGICAL SERVICES DIRECTOR Narrative [facility] - 10/21/2013 8:34 AM SURGICAL SERVICES DIRECTOR Susceptibility testing of penicillin, other beta-lactam antibiotics, and vancomycin is not necessary for beta-hemolytic streptococci groups A,B,C and G because resistant strains have not been recognized. Anyi Mullins MD LAB - MICROBIOLOGY O RDERABLES [facility] [address] [place] [address], [facility] Care Teams Retirement Consultant Relationship Specialty Start Date End Date Azam Jackson, INFRASTRUCTURE TECH-SLP [address] [place] [address] [place] [address] PCP - General Nurse Practitioner Gerontology 11/28/20
--- OUTSIDE RECORDS SUMMARY | 2024-11-17 14:24 | XMS_ITS | Referral Summary ---
Author Organization [facility] Address [address] [place] [address] Care Team Providers Care Performing Artist Name Role Phone Azam Jackson APRN-HUMANITIES AND LANGUAGES PROFESSOR Primary Care Provide r Source Comments [facility],non-owned Affiliates and Associated Physician Practices is amultiple site organization consisting of ambulatory clinics and hospital sitesin [place], [place], [place] and [place]. This disclosure is being madepursuant to the Care Everywhere program and may not contain all information available regarding this patient. Last updated 18.[facility] Allergies Active Allergy Reactions Criticality Noted Date Comments Prochlorperazine 10/19/2013 Ondansetron 10/19/2013 Promethazine Other Low 02/04/2019 Metoclopramide 10/19/2013 Medications * Be aware that medications may not be up to date on this document. Alwaysverify current medications with the patient. Medication Sig Dispensed Refills Start Date End Date Status metFORMIN (GLUCOPHAGE) 500 MG tablet Take 500 mg by mouth 2 times daily with morning and evening meal. Has been off meds x2 years; usually controlls fairly well with diet Active TRESIBA FLEXTOUCH 200 UNIT/ML pen INJECT 64 UNITS SUBCUTANEOUSLY ONCE DAILY AT BEDTIME 06/12/2020 Active rosuvastatin (CRESTOR) 10 MG tablet TAKE 1 TABLET BY MOUTH ONCE DAILY IN THE EVENING 07/16/2020 Active aspirin EC (ECOTRIN) 81 MG tablet 12/28/2020 Active buPROPion XL 24hr (WELLBUTRIN-XL) 150 MG tablet TAKE 1 TABLET BY MOUTH ONCE DAILY IN THE MORNING 06/21/2021 Active Continuous Blood Gluc Sensor (FREESTYLE AYDEE 14 DAY SENSOR) [facility] 12/29/2020 Active FARXIGA 10 MG tablet TAKE 1 TABLET BY MOUTH ONCE DAILY IN THE MORNING FOR 90 DAYS 07/23/2021 Active TRULICITY 3 MG/0.5ML injection INJECT 1 SUB Q ONCE A WEEK IN THE MORNING 07/23/2021 Active ergocalciferol (DRISDOL) 1.25 MG (51222 UT) capsule Vitamin D2 1,250 mcg (50,000 unit) capsule Active fenofibrate (LOFIBRA) 160 MG tablet TAKE 1 TABLET BY MOUTH ONCE DAILY AT BEDTIME FOR 30 DAYS 05/20/2021 Active fluticasone propionate (FLONASE) 50 MCG/ACT nasal spray fluticasone propionate 50 mcg/actuation nasal spray,suspension Active glimepiride (AMARYL) 1 MG tablet TAKE 2 TABLETS BY MOUTH TWICE DAILY BEFORE MEAL(S) 02/14/2021 Active ONETOUCH ULTRA test strip USE A TEST STRIP TO TEST BLOOD SUGAR 3 TO 4 TIMES DAILY BEFORE MEALS 2021 Active VASCEPA 0.5 g CAPS 11/30/2020 Active HYDROcodone-acetam inophen (NORCO) 5-325 MG tablet hydrocodone 5 mg-acetaminophen 325 mg tablet Active LORazepam (ATIVAN) 1 MG tablet TAKE 1 TABLET BY MOUTH PRE PROCEDURE ONCE FOR 1 DOSE 08/11/2020 Active losartan-hydroCHLO ROthiazide (HYZAAR) 100-25 MG tablet Take 1 tablet by mouth once daily 05/28/2021 Active sertraline (ZOLOFT) 100 MG tablet sertraline 100 mg tablet TAKE 1 TABLET BY MOUTH ONCE DAILY FOR 30 DAYS Activ e traZODone (DESYREL) 100 MG tablet trazodone 100 mg tablet TAKE 1 TABLET BY MOUTH EVERY DAY AT BEDTIME NEEDED FOR 30 DAYS Active calcitriol (ROCALTROL) 0.25 MCG capsule calcitriol 0.25 mcg capsule Active clorazepate (TRANXENE) 7.5 MG tablet Take 7.5 mg by mouth 3 times daily 11/27/2020 Active naltrexone (REVIA) 50 MG tablet every 24 hours Active Active Problems Problem Noted Date Diagnosed Date Tension headache 07/02/2020 Insulin dependent diabetes mellitus 08/23/2019 Hypertensive retinopathy of both eyes 02/15/2019 Overview (07/02/2020): Last Assessment & Plan: Pt with vascular changes, CWS and small flame hemorrhages OU -- no macular edema on OCT or DFEx today -- discussed good control of DM2, HTN -- annual DFEx Idiopathic intracranial hypertension 02/15/2019 Overview (07/02/2020): Last Assessment & Plan: New diagnosis in past few months. Repeat LP with opening pressure 26. Pt is taking diamox 250 bid. Multiple visual complaints, unclear to what extent these can be attributed to IIH -- VA good, no APD -- overall nerves appear largely healthy, with on edema in the right eye and only tr elevation vs edema superonasally in the left eye -- baseline HVF 24-2 with nonspecific depression in both eyes -- baseline OCT nerve normal OU -- continue diamox -- pt planning to follow up with Dr. Miles next week to discuss dosing of diamox -- follow up in 1 month for repeat OCT nerve OU, HVF 24-2, repeat DFEx Polycystic ovaries 04/04/2017 Type 2 diabetes mellitus wit hout complication, without long-term current use of insulin 04/04/2017 Hematuria 03/29/2017 Polycystic kidney disease 03/29/2017 Hypertensive chronic kidney disease 03/29/2017 Stage 1 chronic kidney disease 03/29/2017 Right flank pain 10/21/2013 Pyelonephritis 10/19/2013 Overview (08/20/2015): Social History Tobacco Use Types Packs/Day Years [...] ST Respiratory Rate 17 11/28/2020 10:01 PM LOSS PREVENTION SUPERVISOR Oxygen Saturation 100% 08/11/2021 12:49 PM CDT Inhaled Oxygen Concentration - - Weight 89.4 kg (197 lb) 08/11/2021 12:49 PM CDT Height 162.6 cm (5' 4 ) 08/11/2021 12:49 PM CDT Body Mass Index 33.81 08/11/2021 12:49 PM CDT Plan of Treatment Upcoming Encounters Date Type Department Care Team (Late st Contact Info) Description 12/27/2024 1:00 PM LOSS PREVENTION SUPERVISOR Office Visit [facility] [id number] [place] [address] [address] [place] [address] [place] [address] [facility] [address] [place] [address] Procedures Procedure Name Priority Date/Time Associated Diagnosis Comments CREATININE BLOOD - POINT OF CARE (IP) Routine 08/11/2021 11:57 AM CDT Renal cyst from Last 3 Months or Most Recently Relevant to Health Maintenance Results * CREATININE BLOOD - POINT OF CARE (IP) (08/11/2021 11:57 AM CDT) Creatinine POCT 1.15 0.7 - 1.2 mg/dL [facility] QC Verified Yes Yes [facility] POC T TESTING Blood BLOOD SPECIMEN / Unknown 08/11/2021 11:57 AM CDT Trevon Monique MD LAB - POINT OF CAR E ORDERABLES Performing Organization Address City/State/[facility] Co de Phone Number [facility] [address] [phone] from Last 3 Months or Most Recently Relevant to Health Maintenance Care Teams Performing Artist Relationship Specialty Start Date End Date Azam Jackson APRN-HUMANITIES AND LANGUAGES PROFESSOR [address] [place] [address] PCP - General Nurse Practitioner Gerontology 11/28/20
--- OUTSIDE RECORDS SUMMARY | 2024-11-17 14:24 | XMS_ITS | Clinical Summary ---
Author Organization [facility] Address [address] [place] [address] Care Team Providers Care Fitter / Welder Name Role Phone Azam Jackson APRN-BIOMATHEMATICIAN Primary Care Provide r Source Comments [facility],non-owned Affiliates and Associated Physician Practices is amultiple site organization consisting of ambulatory clinics and hospital sitesin [place], [place], [place] and [place]. This disclosure is being madepursuant to the Care Everywhere program and may not contain all information available regarding this patient. Last updated 18.[facility] Allergies Active Allergy Reactions Criticality Noted Date [...] Gluc Sensor (FREESTYLE AYDEE 14 DAY SENSOR) [facility] 12/29/2020 Active FARXIGA 10 MG tablet TAKE 1 TABLET BY MOUTH ONCE DAILY IN THE MORNING FOR 90 DAYS 07/23/2021 Active TRULICITY 3 MG/0.5ML injection INJECT 1 SUB Q ONCE A WEEK IN THE MORNING 07/23/2021 Active ergocalciferol (DRISDOL) 1.25 MG (54791 UT) capsule Vitamin D2 1,250 mcg (50,000 [...] flank pain 10/21/2013 Pyelonephritis 10/19/2013 Overview (08/20/2015): Family History Medical History Relation Name Comments Diabetes - Type 2 Father Heart Failure Father High Blood Pressure Father Cancer Maternal Grandmother Diabetes - Type 2 Paternal Grandfather High Blood Pressure Paternal Grandfather Seizures Sister Relation Name Status Comments Father Maternal Grandmother Paternal Grandfather Sister Social History Tobacco Use Types Packs/Day Years [...] ST Respiratory Rate 17 11/28/2020 10:01 PM SKID WRAPPER Oxygen Saturation 100% 08/11/2021 12:49 PM CDT Inhaled Oxygen Concentration - - Weight 89.4 kg (197 lb) 08/11/2021 12:49 PM CDT Height 162.6 cm (5' 4 ) 08/11/2021 12:49 PM CDT Body Mass Index 33.81 08/11/2021 12:49 PM CDT Plan of Treatment Upcoming Encounters Date Type Department Care Team (Late st Contact Info) Description 12/27/2024 1:00 PM SKID WRAPPER Office Visit [facility] [address] [facility] [address] [place] [address] [place] [address] [facility] [address] [place] [address] Health Maintenance Due Date Last Done Comments MAMMOGRAM 1983 PAP SMEAR 1983 PNEUMOCOCCAL VACCINE (1 of 2 - PCV) 1989 HIV SCREENING 1998 HEPATITIS C SCREENING 05/24/2001 DTAP/TDAP/TD VACCINES (1 - Tdap) 2002 HEPATITIS B VACCINE (1 of 3 - 19+ 3-dose series) 2002 DIABETES RETINOPATHY SCREENING 07/02/2020 DIABETES-FOOT EXAM WITH MONOFILAMENT 07/02/2020 DIABETES-HGB A1C 07/02/2020 DIABETES-SERUM CREATININE 08/11/20222020, 11/28/2020, 08/12/2020, Additional history exists DEPRESSION SCREENING 11/20/2023 COVID-19 VACCINE ( - season) 2024 INFLUENZA VACCINE (#1) 2024 ZOSTER VACCINE (1 of 2) 2033 HIB VACCINE Aged Out No longer eligi ble based on patient's age to complete this topic HPV VACCINE Aged Out No longer eligi ble based on patient's age to complete this topic MENINGOCOCCAL VACCINE Aged Out No wilfrido alexy eligible based on patient's age to complete this topic Procedures Procedure Name Priority Date/Time Associated Diagnosis [...] OF CAR E ORDERABLES Performing Organization Address City/State/[facility] Co de Phone Number [facility] [address] [phone] from Last 3 Months or Most Recently Relevant to Health Maintenance Care Teams Fitter / Welder Relationship Specialty Start Date End Date Azam Jackson, MACHINE HOOP MAKER HELPER-BIOMATHEMATICIAN [address] [place] [address] PCP - General Nurse Practitioner Gerontology 11/28/20
--- OUTSIDE RECORDS SUMMARY | 2024-11-17 14:25 | XMS_ITS | Encounter Summary ---
Author Organization [facility] Address [address] [facility] [place] [address] Care Team Providers Care Cooperative Education Director Name Role Phone Azam Jackson APRN-CANADIAN BACON TIER Primary Care Provide r Reason for Visit * Reason Onset Date Comments Future Appointment 11/30/2020 Encounter Details Date Type Department Care Team (Late st Contact Info) Description 11/30/2020 Telephone [facility] [address] [place] [address] Gianni Farrell, DO [address] [place] [address] Future Appointment Social History Tobacco Use Types Packs/Day Years Used Date Smoking Tobacco: Former Cigarettes Q uit: 06/30/2020 Smokeless Tobacco: Never Alcohol Use Standard Drinks/Week Comments No 0 (1 standard drink = 0.6 oz pur e alcohol) Sex and Gender Information Value Date Recorded Sex Assigned at Not on file Gender Identity Not on file Sexual Orientation Not on file documented as of this encounter Miscellaneous Notes * Telephone Encounter - Magdiel Crowley - 11/30/2020 11:19 AM CST Patient was seen in the ER was sent home and was told to call and schedule and appt with [facility] can you please review and advise. Notes in Epic. thanks RAL PASSENGER AGENT documented in this encounter Plan of Treatment Upcoming Encounters Date Type Department Care Team (Late st Contact Info) Description 12/27/2024 1:00 PM GENERAL PASSENGER AGENT Office Visit [facility] Weight Management Services [address] [facility] [address] [place] [address] [place] [address] [place] [phone] documented as of this encounter Visit Diagnoses Not on filedocumented in this encounter Care Teams Cooperative Education Director Relationship Specialty Start Date End Date Azam Jackson, LAURA-CANADIAN BACON TIER [address] [place] [address] [place] [phone] PCP - General Nurse Practitioner Gerontology 11/28/20 documented as of this encounter
--- OUTSIDE RECORDS SUMMARY | 2024-11-17 14:25 | XMS_ITS | Encounter Summary ---
Author Organization [facility] Address [address] [facility] [place] [address] Care Team Providers Care Stock Wetter Name Role Phone Unavailable Primary Care Provider Unavailabl e Encounter Details Date Type Department Care Team (Latest Contact Info) Description 03/29/2017 [facility] [address] [place] [address] Debra Lora PA-C [address] [facility] [address] [place] [address] Discharge Disposition: Home or Self Care Social History Tobacco Use Types Packs/Day Years Used Date Smoking Tobacco: Every Day Cigarettes Alcohol Use Standard Drinks/Week Comments No 0 (1 standard drink = 0.6 oz pur e alcohol) Sex and Gender Information Value Date Recorded Sex Assigned at Not on file Gender Identity Not on file Sexual Orientation Not on file documented as of this encounter Plan of Treatment Upcoming Encounters Date Type Department Care Team (Late st Contact Info) Description 12/27/2024 1:00 PM 3D ANIMATOR Office Visit [facility] Weight Management Services [address] [facility] [address] [place] [address] [place] [address] [facility] [address] [place] [phone] documented as of this encounter Visit Diagnoses Not on filedocumented in this encounter
--- OUTSIDE RECORDS SUMMARY | 2024-11-17 14:25 | XMS_ITS | Encounter Summary ---
Author Organization [facility] Address [address] [place] [address] Care Team Providers Care Marine Underwriter Name Role Phone Azam Jackson APRN-WHAT JOB TITLES MEAN Primary Care Provide r Reason for Referral * Radiology Services (Routine) - Closed Specialty Diagnoses / Procedures Referred By Contac t Referred To Contact MRI Diagnoses Renal cyst Procedures MRI KIDNEYS WWO CONTRAST MRI KIDNEYS WWO CONTRAST Trevon Monique MD [address] DIV [place] [address] [address] Referral ID Status Reason Start Date Expiration Date Visits Re quested Visits Authorized [id number] Closed 08/12/2020 08/12/2021 1 1 Reason for Visit * Radiology Services (Routine) - Closed Specialty Diagnoses / Procedures Referred By Contac t Referred To Contact MRI Diagnoses Renal cyst Procedures MRI KIDNEYS WWO CONTRAST MRI KIDNEYS WWO CONTRAST Trevon Monique MD [address] DIV [place] [address] [address] Referral ID Status Reason Start Date Expiration Date Visits Re quested Visits Authorized [id number] Closed 08/12/2020 08/12/2021 1 1 Encounter Details Date Type Department Care Team (Latest Contact Info) Description 08/11/2021 11:15 AM CDT - 08/11/2021 11:59 PM CDT Hospital Encounter [facility] Imaging Services - MRI [address] [place] [address] Trevon Monique MD [address] [place] [address] Discharge Disposition: Home or Self Care Social [...] on file documented as of this encounter Medications at Time of Discharge Medication Sig Dispensed Refills Start Date End Date aspirin EC (ECOTRIN) 81 MG tablet 12/28/2020 buPROPion XL 24hr (WELLBUTRIN-XL) 150 MG tablet TAKE 1 TABLET BY MOUTH ONCE DAILY IN THE MORNING 06/21/2021 calcitriol (ROCALTROL) 0.25 MCG capsule calcitriol 0.25 mcg capsule clorazepate (TRANXENE) 7.5 MG tablet Take 7.5 mg by mouth 3 times daily 11/27/2020 Continuous Blood Gluc Sensor (FREESTYLE AYDEE 14 DAY SENSOR) [facility] 12/29/2020 ergocalciferol (DRISDOL) 1.25 MG (83769 UT) capsule Vitamin D2 1,250 mcg (50,000 unit) capsule FARXIGA 10 MG tablet TAKE 1 TABLET BY MOUTH ONCE DAILY IN THE MORNING FOR 90 DAYS 07/23/2021 fenofibrate (LOFIBRA) 160 MG tablet TAKE 1 TABLET BY MOUTH ONCE DAILY AT BEDTIME FOR 30 DAYS 05/20/2021 fluticasone propionate (FLONASE) 50 MCG/ACT nasal spray fluticasone propionate 50 mcg/actuation nasal spray,suspension glimepiride (AMARYL) 1 MG tablet TAKE 2 TABLETS BY MOUTH TWICE DAILY BEFORE MEAL(S) 02/14/2021 HYDROcodone-acetaminop hen (NORCO) 5-325 MG tablet hydrocodone 5 mg-acetaminophen 325 mg tablet LORazepam (ATIVAN) 1 MG tablet TAKE 1 TABLET BY MOUTH PRE PROCEDURE ONCE FOR 1 DOSE 08/11/2020 losartan-hydroCHLOROth iazide (HYZAAR) 100-25 MG tablet Take 1 tablet by mouth once daily 05/28/2021 metFORMIN (GLUCOPHAGE) 500 MG tablet Take 500 mg by mouth 2 times daily with morning and evening meal. Has been off meds x2 years; usually controlls fairly well with diet naltrexone (REVIA) 50 MG tablet every 24 hours ONETOUCH ULTRA test strip USE A TEST STRIP TO TEST BLOOD SUGAR 3 TO 4 TIMES DAILY BEFORE MEALS 2021 rosuvastatin (CRESTOR) 10 MG tablet TAKE 1 TABLET BY MOUTH ONCE DAILY IN THE EVENING 07/16/2020 sertraline (ZOLOFT) 100 MG tablet sertraline 100 mg tablet TAKE 1 TABLET BY MOUTH ONCE DAILY FOR 30 DAYS traZODone (DESYREL) 100 MG tablet trazodone 100 mg tablet TAKE 1 TABLET BY MOUTH EVERY DAY AT BEDTIME NEEDED FOR 30 DAYS TRESIBA FLEXTOUCH 200 UNIT/ML pen INJECT 64 UNITS SUBCUTANEOUSLY ONCE DAILY AT BEDTIME 06/12/2020 TRULICITY 3 MG/0.5ML injection INJECT 1 SUB Q ONCE A WEEK IN THE MORNING 07/23/2021 VASCEPA 0.5 g CAPS 11/30/2020 documented as of this encounter Plan of Treatment Upcoming Encounters Date Type Department Care Team (Late st Contact Info) Description 12/27/2024 1:00 PM BLINTZE ROLLER Office Visit [facility] Services [address] [address] [place] [address] [address] documented as of this encounter Procedures Procedure Name Priority Date/Time Associated Diagnosis Comments MRI KIDNEYS WWO CONTRAST Routine 08/11/2021 12:19 PM CDT Renal cyst CREATININE BLOOD - POINT OF CARE (IP) Routine 08/11/2021 11:57 AM CDT Renal cyst documented in this encounter Results * MRI KIDNEYS WWO CONTRAST (08/11/2021 [...] OF CAR E ORDERABLES Performing Organization Address City/State/[facility] Co de Phone Number [facility] [address] [phone] documented in this encounter Visit Diagnoses Diagnosis Renal cyst Unspecified congenital cystic kidney disease documented in this encounter Administered Medications Inactive Administered Medications - up to 3 most recent administrations Medication Order MAR Action Action Date Dose Rate Site gadoterate meglumine (Dotarem) injection Intravenous, CONTRAST ONCE, Starting on 08/11/21 at 1131, Until Alfreda 08/12/21 at 0123 $ Given 08/11/2021 12:10 PM CDT 20 mL documented in this encounter Care Teams Marine Underwriter Relationship Specialty Start Date End Date Azam Jackson APRN-WHAT JOB TITLES MEAN [address] [address] PCP - General Nurse Practitioner Gerontology 11/28/20 documented as of this encounter
--- OUTSIDE RECORDS SUMMARY | 2024-11-17 14:25 | XMS_ITS | Encounter Summary ---
Author Organization [facility] Address [address] [facility] [place] [address] Care Team Providers Care Cell Room Supervisor Name Role Phone Dorota Martinez MD Primary Care Provider [phone] Reason for Referral * Radiology Services (Routine) - Closed Specialty Diagnoses / Procedures Referred By Tiburcio caicedo Referred To Contact MRI Diagnoses Bilateral renal cysts Procedures MRI ABDOMEN WWO CONTRAST Trevon Monique MD [address] [place] [address] [address] Referral ID Status Reason Start Date Expiration Date Visits Re quested Visits Authorized [id number] Closed 08/05/2020 09/03/2020 1 1 Reason for Visit * Radiology Services (Routine) - Closed Specialty Diagnoses / Procedures Referred By Tiburcio caicedo Referred To Contact MRI Diagnoses Bilateral renal cysts Procedures MRI ABDOMEN WWO CONTRAST Trevon Monique MD [address] [place] [address] [address] Referral ID Status Reason Start Date Expiration Date Visits Re quested Visits Authorized [id number] Closed 08/05/2020 09/03/2020 1 1 Encounter Details Date Type Department Care Team (Latest Contact Info) Description 08/12/2020 11:01 AM CDT - 08/12/2020 11:59 PM CDT Hospital Encounter [facility] Imaging Services - MRI [address] [place] [address] Trevon Monique MD [address] [place] [address] Discharge Disposition: Home or Self Care Social [...] on file Sexual Orientation Not on file COVID-19 Exposure Response Date Recorded In the last month, have you been in contact with someone who was confirmed or suspected to have Coronavirus / COVID-19? No / Unsure 08/12/2020 1:14 PM CDT documented as of this encounter Medications at Time of Discharge Medication Sig Dispensed Refills Start Date End Date LORazepam (ATIVAN) 1 MG tablet TAKE 1 TABLET BY MOUTH PRE PROCEDURE ONCE FOR 1 DOSE 08/11/2020 metFORMIN (GLUCOPHAGE) 500 MG tablet Take 500 mg by mouth 2 times daily with morning and evening meal. Has been off meds x2 years; usually controlls fairly well with diet rosuvastatin (CRESTOR) 10 MG tablet TAKE 1 TABLET BY MOUTH ONCE DAILY IN THE EVENING 07/16/2020 TRESIBA FLEXTOUCH 200 UNIT/ML pen INJECT 64 UNITS SUBCUTANEOUSLY ONCE DAILY AT BEDTIME 06/12/2020 losartan (COZAAR) 100 MG tablet Take 100 mg by mouth once daily 05/31/2020 08/11/2021 documented as of this encounter Plan of Treatment Upcoming Encounters Date Type Department Care Team (Late st Contact Info) Description 12/27/2024 1:00 PM CARDIOVASCULAR SPECIALIST Office Visit [facility] Weight Management Services [id number] [place] [address], [facility] [address] [place] [address] [place] [address] [facility] [address] [place] [id number] documented as of this encounter Procedures Procedure Name Priority Date/Time Associated Diagnosis Comments MRI ABDOMEN WWO CONTRAST Routine 08/12/2020 11:46 AM CDT Bilateral renal cysts CREATININE BLOOD - POINT OF CARE (IP) Routine 08/12/2020 11:36 AM CDT Bilateral renal cysts documented in this encounter Results * MRI ABDOMEN WWO CONTRAST (08/12/2020 11:46 [...] PM Trevon Monique MD MR ORDERABLES * (ABNORMAL) CREATININE BLOOD - POINT OF CARE (IP) (08/12/2020 11:36 AM CDT) Creatinine POCT 0.55(A) 0.7 - 1.2 mg/dL [facility] POCT TESTING QC Verified Yes Yes [facility] POC T TESTING Blood BLOOD SPECIMEN / Unknown 08/12/2020 11:36 AM CDT Trevon Monique MD LAB - POINT OF CAR E ORDERABLES [facility] POCT TESTING [address] [phone] documented in this encounter Visit Diagnoses Diagnosis Bilateral renal cysts Unspecified congenital cystic kidney disease documented in this encounter Administered Medications Inactive Administered Medications - up to 3 most recent administrations Medication Order MAR Action Action Date Dose Rate Site gadoterate meglumine (DOTAREM) injection Intravenous, CONTRAST ONCE, Starting on Mon08/12/20 at 1103, Until Alfreda 08/13/20 at 0122 $ Given 08/12/2020 11:45 AM CDT 17 mL documented in this encounter Care Teams Cell Room Supervisor Relationship Specialty Start Date End Date Dorota Martinez MD [address] [place] [address] PCP - General 08/12/20 11/27/20 documented as of this encounter
--- OUTSIDE RECORDS SUMMARY | 2024-11-17 14:25 | XMS_ITS | Encounter Summary ---
Author Organization [facility] Address [address] [facility] [place] [address] Care Team Providers Care Gluer And Wedger Name Role Phone Dorota Martinez MD Primary Care Provider Reason for Visit * Reason Comments Surgery Consult Encounter Details Date Type Department Care Team (Late st Contact Info) Description 07/02/2020 8:30 AM CDT Office Visit [facility] Neurosurgery [address] [place] [address] Bobby Beltrán MD [address] [place] [address] Tension headache (Primary Dx) Social History Tobacco Use Types Packs/Day Years Used Date Smoking Tobacco: Every Day Cigarettes Smokeless Tobacco: Never Alcohol Use Standard Drinks/Week Comments No 0 (1 standard drink = 0.6 oz pur e alcohol) Sex and Gender Information Value Date Recorded Sex Assigned at Not on file Gender Identity Not on file Sexual Orientation Not on file documented as of this encounter Last Filed Vital Signs Vital Sign Reading Time Taken Comments Blood Pressure 181/112 07/02/2020 9:06 AM CDT Pulse 113 07/02/2020 9:06 AM CDT Temperature 36.9 ??C (98.4 ??F) 07/02/2020 9:06 AM CD T Respiratory Rate - - Oxygen Saturation 95% 07/02/2020 9:06 AM CDT Inhaled Oxygen Concentration - - Weight 92.1 kg (203 lb) 07/02/2020 9:06 AM CDT Height 162.6 cm (5' 4 ) 07/02/2020 9:06 AM CDT Body Mass Index 34.84 07/02/2020 9:06 AM CDT documented in this encounter Patient Instructions * Patient Instructions* Hilda Mckenna - 07/02/2020 9:57 AM CDT Please bring CT head and MRI brain CD to next appointment Follow up after endocrinology appointment Please fax ophthalmology report to [phone] (visual samayoa and fundoscopic exam ) For any questions please call Hilda [phone] documented in this encounter Progress Notes * Savage Christian MD - 07/02/2020 9:11 PM CDT Neurosurgery Clinic Note ?? Chief Complaint (CC): Headache ?? HISTORY OF PRESENT ILLNESS (HPI): This patient is a 35 year old white female w/ a PMH of CKD stage 2, HTN, DM, complex migraine syndrome, unknown cardiac disorder, generalized anxiety disorder, and possible pseudotumor cerebri presenting today for evaluation of ventriculoperitoneal shunt placement.One year and a half ago she went to the ED after feeling numbness and tingling in her right arm and leg and had a high blood pressure in the 180's systolic. During that visit, she underwent a CT head non-contrast that she reports was unremarkable and had a lumbar puncture that had an elevated opening pressure of around 30 mmHg. The pt reports she was diagnosed as having pseudotumor cerebri, prescribed acetazolamide, and referred to ophthalmology. She took acetazolamide for three months, during which she reports intermittent and patchy numbness, weakness, vision problems, and an inability to take care of herself. She then stopped taking the medication and does not want to take it again. During this period she also visited her decision analyst who she reports saw hypertensive hemhorrages, a small left cataract, but no papilledema. She was seen by her neurologist who referred her to Dr. Esau Miles at [facility] for possible placement of a ventriculoperitoneal shunt given her intractable headaches and her reports of inability to tolerate any kind of migraine medication. Dr. Miles declined neurosurgical intervention after performing a lumbar puncture with an opening pressure of 21, no reports of papilledema, and multiple comorbidities that indicated that the risks would outweigh the possible benefit of a shunt. Her neurologist then referred her to [facility] neurosurgery for a second opinion. ?? The patient reports she recently had an MRI perfomred that showed an empty sella, but she does havethe imaging with her on this visit. She indicates that her headache has been chronic and long standing in [place], and is associated with photophobia, nausea, and vomiting, with the pain being locatedeither in her right occipital or in the right frontal region. She has daily headaches which can last from a few hours to multiple days. She reports trying many medications for her headache but she could not tolerate their side effects. She denies any urinary symptoms or gait abnormalities. ?? Medications Current Outpatient Medications Medication ??? losartan (COZAAR) 100 MG tablet ??? metFORMIN (GLUCOPHAGE) 500 MG tablet ??? TRESIBA FLEXTOUCH 200 UNIT/ML pen ?? No current facility-administered medications for this visit. ?? REVIEW OF SYSTEMS Constitutional: Negative for fever and chills. HENT: Positive for headache as described in HPI. Negative for congestion and sore throat. ?? Eyes: Positive for blurred vision when having headache Respiratory: Negative for shortness of breath and stridor. ?? Cardiovascular: Negative for chest pain and leg swelling. Gastrointestinal: Positive for n/v with headache. Negative for abdominal pain Endocrine: Positive for DM2 on insulin Genitourinary: Negative for dysuria, urgency, hematuria, vaginal bleeding, vaginal discharge and menstrual problem. Skin: Negative for rash. Neurological: Negative for syncope Psychiatric/Behavioral: Negative for agitation. ?? PHYSICAL EXAM BP 181/112 Pulse 113 Temp 98.4 ??F (36.9 ??C) (Oral) Ht 5' 4 (1.626 m) Wt 203 lb (92.1 kg) SpO2 95% BMI 34.84 kg/m2 General: no acute distress Cardiovascular: warm, well profused Respiratory: non-labored breathing Abdominal: soft, non tender, non distended Integument: no lesions found Vascular: capillary refill <3 seconds Neuro: alert, oriented x 3 (name, place date), extra-ocular movements intact, pupils equal and reactive bilaterally, visual samayoa intact bilaterally, face symmetric, tongue midline, no drift, strength 5/5 in major muscle groups, sensation intact, gait stable, and negative romberg. ?? RADIOLOGICAL REVIEW No images of the central nervous system were available for review. . ?? Assessment: ?? This patient is a 35 year old white female w/ a hisotry of CKD stage 2, HTN, DM2, complex migraine syndrome, unknown cardiac disorder, generalized anxiety disorder, and possible pseudotumor cerebri presenting today for evaluation of ventriculoperitoneal shunt placement. Given the patient's history of untreated complex migraine, borderline lumbar puncture opening pressures, lack of papilledema, and uncontrolled hypertension, it is unlikely that her headache could be resolved with the placment ofa shunt. Her headache is more likely attributable to her migraines or hypertension that remains uncontrolled. Her multiple comorbidities also place her at great surgical risk and she would likely be a poor candidate for surgery given the low likelihood of benefit and the relatively higher likelihood of harm. A final opinion will be herminia upon review of the MRI and ophthalmology assesment of the presence of papilledema now that she is off acetazolamide. ?? Plan: She will obtain her MRI imagesfrom [facility] and CT results from outside hospital, be seen at an opthalmology appointment to evaluate for papilledema, obtain the results of her endocrinework-up from outside hospital, and we will see her in follow up in two weeks and after imaging and o phthalmology appointment have been completed. ? Milton Mays 07/02/2020 12:00 PM ADDENDUM: Copied note to appropriate place in chart for this encounter. I did not participate in this visit. Savage Christian MD Neurosurgery 07/02/20 9:12 PM * Bobby Beltrán MD - 07/02/2020 9:26 AM CDT Note from medical student reviewed, edited, patient seen and examined, noimages to reviewed, and situation discussed with patient only as no family present. For additional details please refer to communication to referring physician. documented in this encounter H&P Notes * Milton Mays - 07/02/2020 11:59 AM CDT Neurosurgery Clinic Note Chief Complaint (CC): Headache HISTORY OF PRESENT ILLNESS (HPI): Patient is a 35 year old white female w/ a PMH of CKD stage 2, HTN, DM, complex migraine syndrome, unknown cardiac disorder, generalized anxiety disorder, and possible pseudotumor cerebri presenting today for evaluation of ventriculoperitoneal shunt placement. Pt reports her path to this clinic started a year and a half ago when she went to the ED after feeling numbness and tingling in her right arm and leg and a high blood pressure in the 180's systolic. During that hospitalization, she underwent a CT head non- contrast that she reports was unremarkable and had a lumbar puncture that had an elevated opening pressure of around 30 mmHg. The pt reports she wassubsequently diagnosed with pseudotumor cerebri, prescribed acetazolamide, referred to ophthalmology. The pt reports she tried acetazolamide for three months, during which she reports intermittent and disperse numbness, weakness, vision problems, and an inability to take care of herself. She then stopped taking the medication with a commitment to never take it again. During this period she also visited her decision analyst who she reports saw hypertensive hemhorrages, small left cataract, but nopapilledema. The pt then returned to her neurologist who referred her to Dr. Miles at [facility] for evaluation of possible ventriculoperitoneal shunt placement given her intractable headaches and her reports of inability to tolerate any kind of migraine medication. Dr. Miles declined anyneurosurgical evaluation given that his group performed a lumbar puncture with an opening pressure of 21, no reports of papilledema, and multiple comorbidities that led him to believe the risks wouldoutweigh the benefits. Her neurologist then referred her to [facility]surgery [facility] be willing to perform the operation. The pt reports she recently had an MRI done that showed an empty sella, but she does have the imaging with her for evaluation from this office. The pt reports she has had this headache for a long time, which she associates with photophobia, nausea, vomiting, and localizing to either her right occipital or right frontal head. This headache takes place at least once every day and can last from a few hours to multiple days. She reports trying many medications to treat this but could not tolerate their side effects. She denies any urinary symptoms or gait abnormalities. HOME MEDICATIONS Current Outpatient Medications Medication ??? losartan (COZAAR) 100 MG tablet ??? metFORMIN (GLUCOPHAGE) 500 MG tablet ??? TRESIBA FLEXTOUCH 200 UNIT/ML pen No current facility-administered medications for this visit. REVIEW OF SYSTEMS Review of Systems Constitutional: Negative for fever and chills. HENT: Positive for headache as described in HPI. Negative for congestion and sore throat. Eyes: Positive for blurred vision when having headache Respiratory: Negative for shortness of breath and stridor. Cardiovascular: Negative for chest pain and leg swelling. Gastrointestinal: Positive for n/v with headache. Negative for abdominal pain Endocrine: Positive for DM2 on insulin Genitourinary: Negative for dysuria, urgency, hematuria, vaginal bleeding, vaginal discharge and menstrual problem. Skin: Negative for rash. Neurological: Negative for syncope Psychiatric/Behavioral: Negative for agitation. PHYSICAL EXAM BP 181/112 Pulse 113 Temp 98.4 ??F (36.9 ??C) (Oral) Ht 5' 4 (1.626 m) Wt 203 lb (92.1 kg) SpO2 95% BMI 34.84 kg/m2 General: no acute distress Cardiovascular: warm, well profused Respiratory: non-labored breathing Abdominal: soft, non tender, non distended Integument: no lesions found Vascular: capillary refill <3 seconds Neuro: alert, oriented x 3 (name, place date), extra-ocular movements intact, pupils equal and reactive bilaterally, visual samayoa intact bilaterally, face symmetric, tongue midline, no drift, strength 5/5 in major muscle groups, sensation intact, gait stable, and negative romberg. RADIOLOGY No Brain Imaging available for us to review. Assessment: Patient is a 35 year old white female w/ a PMH of CKD stage 2, HTN, DM2, complex migraine syndrome,unknown cardiac disorder, generalized anxiety disorder, and possible pseudotumor cerebri presentingtoday for evaluation of ventriculoperitoneal shunt placement. Given the patient's history of untreated complex migraine, borderline lumbar puncture opening pressures, lack of papilledema, and uncontrolled hypertension, it is unlikely that her headache is solely attributable, if at all attributable,to pseudotumor cerebri. Her headache is more likely attributable to her migraines or hypertension that remains uncontrolled. Her multiple comorbidities also place her at great surgical risk and she would likely be a poor candidate for surgery given the low likelihood of benefit and the relatively higher likelihood of harm. But an MRI and ophthalmology assesment will be needed to accurately evaluate the patient's candidacy for neurosurgical intervention. Plan: - Attain MRI results from [facility] and CT results from outside hospital - Opthalmology appointment to evaluate for papilledema - Attain endocrine work-up from outside hospital - F/u in two weeks and after imaging and ophthalmology appointment have been completed. Milton Mays 07/02/2020 12:00 PM documented in this encounter Plan of Treatment Upcoming Encounters Date Type Department Care Team (Late st Contact Info) Description 12/27/2024 1:00 PM AIR BRUSH ARTIST Office Visit [facility] Services [id number] [place] [address] [address] [place] [address] [place] [address] [facility] [address] [place] [id number] documented as of this encounter Visit Diagnoses Diagnosis Tension headache- Primary documented in this encounter Care Teams Gluer And Wedger Relationship Specialty Start Date End Date Dorota Martinez MD [address] [place] [address] PCP - General 01/21/19 08/11/20 documented as of this encounter
--- OUTSIDE RECORDS SUMMARY | 2024-11-17 14:25 | XMS_ITS | Encounter Summary ---
Author Organization [facility] Address [address] [place] [address] Care Team Providers Care Data Designer Name Role Phone None, Pcp Primary Care Provider Unavailabl e Reason for Visit * Reason Comments Blood in urine was here recently fo r same, couldnt afford antibiotics. reports blood in urine now. Encounter Details Date Type Department Care Team (Late st Contact Info) Description 10/21/2013 10:59 AM TOOL SHAPER SET UP OPERATOR - 10/21/2013 3:29 PM TOOL SHAPER SET UP OPERATOR Emergency ER at [facility] [address] [place] [address] Boy Alfonso MD [address] [place] [address] Right flank pain (Primary Dx); Abdominal pain, acute; Back pain; UTI (lower urinary tract infection) Discharge Disposition: Home or Self Care Social History Tobacco Use Types Packs/Day Years Used Date Smoking Tobacco: Every Day Cigarettes Alcohol Use Standard Drinks/Week Comments Yes 0 (1 standard drink = 0.6 oz pur e alcohol) Sex and Gender Information Value Date Recorded Sex Assigned at Not on file Gender Identity Not on file Sexual Orientation Not on file documented as of this encounter Last Filed Vital Signs Vital Sign Reading Time Taken Comments Blood Pressure 138/83 10/21/2013 3:21 PM TOOL SHAPER SET UP OPERATOR Pulse 90 10/21/2013 3:21 PM TOOL SHAPER SET UP OPERATOR Temperature 37.1 ??C (98.8 ??F) 10/21/2013 3:21 PM CS T Respiratory Rate 14 10/21/2013 3:21 PM TOOL SHAPER SET UP OPERATOR Oxygen Saturation 100% 10/21/2013 3:21 PM TOOL SHAPER SET UP OPERATOR Inhaled Oxygen Concentration - - Weight 86.2 kg (190 lb) 10/21/2013 11:00 AM TOOL SHAPER SET UP OPERATOR Height 160 cm (5' 3 ) 10/21/2013 11:00 AM TOOL SHAPER SET UP OPERATOR Body Mass Index 33.66 10/21/2013 11:00 AM TOOL SHAPER SET UP OPERATOR documented in this encounter Discharge Instructions * Discharge Instructions* Boy Alfonso MD - 10/21/2013 3:16 PM TOOL SHAPER SET UP OPERATOR Images from the original note were not included. Abdominal Pain (Nonspecific) Your exam might not show the exact reason you have abdominal pain. Since there are many different causes of abdominal pain, another checkup and more tests may be needed. It is very important to follow up for lasting (persistent) or worsening symptoms. A possible cause of abdominal pain in any person who still has his or her appendix is acute appendicitis. Appendicitis is often hard to diagnose. Normal blood tests, urine tests, ultrasound, and CT scans do not completely rule out early appendicitis or other causes of abdominal pain. Sometimes, only the changes that happen over time will allow appendicitis and other causes of abdominal pain to be determined. Other potential problems that may require surgery may also take time to become more apparent. Because of this, it is important that youfollow all of the instructions below. HOME CARE INSTRUCTIONS ?? Rest as much as possible. ?? Do not eat solid food until your pain is gone. ?? While adults or children have pain: A diet of water, weak decaffeinated tea, broth or bouillon, gelatin, oral rehydration solutions (ORS), frozen ice pops, or ice chips may be helpful. ?? When pain is gone in adults or children: Start a light diet (dry toast, crackers, applesauce, orwhite rice). Increase the diet slowly as long as it does not bother you. Eat no dairy products (including cheese and eggs) and no spicy, fatty, fried, or high-fiber foods. ?? Use no alcohol, caffeine, or cigarettes. ?? Take your regular medicines unless your caregiver told you not to. ?? Take any prescribed medicine as directed. ?? Only take omai-ccn-mlykwsw or prescription medicines for pain, discomfort, or fever as directed by your caregiver. Do not give aspirin to children. If your caregiver has given you a follow-up appointment, it is very important to keep that appointment. Not keeping the appointment could result in a permanent injury and/or lasting (chronic) pain and/or disability. If there is any problem keeping the appointment, you must call to reschedule. SEEK IMMEDIATE MEDICAL CARE IF: ?? Your pain is not gone in 24 hours. ?? Your pain becomes worse, changes location, or feels different. ?? You or your child has an oral temperature above 102?? F (38.9?? C), not controlled by medicine. ?? Your baby is older than 3 months with a rectal temperature of 102?? F (38.9?? C) or higher. ?? Your baby is 3 months old or younger with a rectal temperature of 100.4?? F (38?? C) or higher. ?? You have shaking chills. ?? You keep throwing up (vomiting) or cannot drink liquids. ?? There is blood in your vomit or you see blood in your bowel movements. ?? Your bowel movements become dark or black. ?? You have frequent bowel movements. ?? Your bowel movements stop (become blocked) or you cannot pass gas. ?? You have bloody, frequent, or painful urination. ?? You have yellow discoloration in the skin or whites of the eyes. ?? Your stomach becomes bloated or bigger. ?? You have dizziness or fainting. ?? You have chest or back pain. MAKE SURE YOU: ?? Understand these instructions. ?? Will watch your condition. ?? Will get help right away if you are not doing well or get worse. Document Released: 11/06/2006 Document Revised: 03 Urinary Tract Infection A urinary tract infection (UTI) is often caused by a germ (bacteria). A UTI is usually helped with medicine (antibiotics) that kills germs. Take all the medicine until it is gone. Do this even if youare feeling better. You are usually better in 7 to 10 days. HOME CARE ?? Drink enough water and fluids to keep your pee (urine) clear or pale yellow. Drink: ?? Cranberry juice. ?? Water. ?? Avoid: ?? Caffeine. ?? Tea. ?? Bubbly (carbonated) drinks. ?? Alcohol. ?? Only take medicine as told by your doctor. ?? To prevent further infections: ?? Pee often. ?? After pooping (bowel movement), women should wipe from front to back. Use each tissue only once. ?? Pee before and after having sex (intercourse). Ask your doctor when your test results will be ready. Make sure you follow up and get your test results. GET HELP RIGHT AWAY IF: ?? There is very bad back pain or lower belly (abdominal) pain. ?? You get the chills. ?? You have a fever. ?? Your baby is older than 3 months with a rectal temperature of 102?? F (38.9?? C) or higher. ?? Your baby is 3 months old or younger with a rectal temperature of 100.4?? F (38?? C) or higher. ?? You feel sick to your stomach (nauseous) or throw up (vomit). ?? There is continued burning with peeing. ?? Your problems are not better in 3 days. Return sooner if you are getting worse. MAKE SURE YOU: ?? Understand these instructions. ?? Will watch your condition. ?? Will get help right away if you are not doing well or get worse. Document Released: 04/24/2009 Document Revised: 01/28/2013 Document Reviewed: 04/24/2009 [employer]?? Patient Information ??2012 [employer]. Document Reviewed: 10/04/2010 [employer]?? Patient Information ??2013 [employer].Abdominal Pain (Nonspecific) Your exam might not show the exact reason you have abdominal pain. Since there are many different causes of abdominal pain, another checkup and more tests may be needed. It is very important to follow up for lasting (persistent) or worsening symptoms. A possible cause of abdominal pain in any person who still has his or her appendix is acute appendicitis. Appendicitis is often hard to diagnose. Normal blood tests, urine tests, ultrasound, and CT scans do not completely rule out early appendicitis or other causes of abdominal pain. Sometimes, only the changes that happen over time will allow appendicitis and other causes of abdominal pain to be determined. Other potential problems that may require surgery may also take time to become more apparent. Because of this, it is important that youfollow all of the instructions below. HOME CARE INSTRUCTIONS ?? Rest as much as possible. ?? Do not eat solid food until your pain is gone. ?? While adults or children have pain: A diet of water, weak decaffeinated tea, broth or bouillon, gelatin, oral rehydration solutions (ORS), frozen ice pops, or ice chips may be helpful. ?? When pain is gone in adults or children: Start a light diet (dry toast, crackers, applesauce, orwhite rice). Increase the diet slowly as long as it does not bother you. Eat no dairy products (including cheese and eggs) and no spicy, fatty, fried, or high-fiber foods. ?? Use no alcohol, caffeine, or cigarettes. ?? Take your regular medicines unless your caregiver told you not to. ?? Take any prescribed medicine as directed. ?? Only take glmn-nss-tlexbgs or prescription medicines for pain, discomfort, or fever as directed by your caregiver. Do not give aspirin to children. If your caregiver has given you a follow-up appointment, it is very important to keep that appointment. Not keeping the appointment could result in a permanent injury and/or lasting (chronic) pain and/or disability. If there is any problem keeping the appointment, you must call to reschedule. SEEK IMMEDIATE MEDICAL CARE IF: ?? Your pain is not gone in 24 hours. ?? Your pain becomes worse, changes location, or feels different. ?? You or your child has an oral temperature above 102?? F (38.9?? C), not controlled by medicine. ?? Your baby is older than 3 months with a rectal temperature of 102?? F (38.9?? C) or higher. ?? Your baby is 3 months old or younger with a rectal temperature of 100.4?? F (38?? C) or higher. ?? You have shaking chills. ?? You keep throwing up (vomiting) or cannot drink liquids. ?? There is blood in your vomit or you see blood in your bowel movements. ?? Your bowel movements become dark or black. ?? You have frequent bowel movements. ?? Your bowel movements stop (become blocked) or you cannot pass gas. ?? You have bloody, frequent, or painful urination. ?? You have yellow discoloration in the skin or whites of the eyes. ?? Your stomach becomes bloated or bigger. ?? You have dizziness or fainting. ?? You have chest or back pain. MAKE SURE YOU: ?? Understand these instructions. ?? Will watch your condition. ?? Will get help right away if you are not doing well or get worse. Document Released: 11/06/2006 Document Revised: 01/28/2013 Document Reviewed: 10/04/2010 [employer]?? Patient Information ??2013 [employer]. SHAPER SET UP OPERATOR * Discharge Instructions* Document, Scanned - 10/23/2013 1:37 AM TOOL SHAPER SET UP OPERATOR SHAPER SET UP OPERATOR documented in this encounter Medications at Time of Discharge Medication Sig Dispensed Refills Start Date End Date cephALEXin (KEFLEX) 500 MG capsule Take 1 Cap by mouth 4 times daily for 5 days. 20 Cap 0 10/21/2013 10/26/2013 sulfamethoxazole-trimetho prim (BACTRIM DS; SEPTRA DS) 800-160 MG tablet Take 1 Tab by mouth every 12 hours for 7 days. For 7 days. 14 Tab 0 10/19/2013 10/26/2013 documented as of this encounter ED Notes * Christina Obregon RN - 10/21/2013 3:28 PM CST Patient verbalized understanding of discharge instructions, follow up information and prescriptions. SHAPER SET UP OPERATOR * Christina Obregon RN - 10/21/2013 2:20 PM CST Patient has call light and no other needs at this time. SHAPER SET UP OPERATOR * Christina Obregon RN - 10/21/2013 1:15 PM CST Fluids infusing, patient on BP cuff and pulse ox. Call light within reach. SHAPER SET UP OPERATOR * Christina Obregon RN - 10/21/2013 1:06 PM CST Patient back from CT SHAPER SET UP OPERATOR * Boy Alfonso MD - 10/21/2013 11:45 AM CST Provider contact with the patient: 10/21/2013 11:45 Kylee Guo [id number] [facility] History Chief Complaint Patient presents with ??? Blood in urine was here recently for same, couldnt afford antibiotics. reports blood in urine now. Chief complaint narrative was entered by triage nurse, not by physician. HPI Comments: 11:46 AM Kylee Guo is a 28 y.o. female with a past medical history of UTI, DM, ovarian cyst, anxiety, and bipolar presents to the ER c/o hematuria since yesterday. Pt was seen 2 days ago for back pain and dx'ed with UTI and prescribed Bactrim, though triage note reports she couldn'tafford to fill it. Yesterday morning the pain began to radiate to bilat flanks. She also describes a pressure in her pelvis. Pt denies any other urinary symptoms including dysuria, frequency, odor, volume change, and vaginal discharge. Pt admits nausea, vomiting, and diarrhea yesterday. Pt reports this does not feel similar to her prior UTI. Note: pt did NOT get the Rx for Bactrim filled that she was given 2 d ago. LNMP: 1 week ago Physician: Pcp None PSHx: cholecystitis Female Genitourinary The primary symptoms include flank pain.The primary symptoms do not include dysuria.The history is provided by the patient. This is a new problem. The current episode started yesterday. The problem occurs constantly. The problem has not changed since onset.The pain is moderate. The problem affects both sides. Her LMP was weeks ago. Urine output has been normal. Associated symptoms include diarrhea, nausea, vomiting and hematuria.Pertinent negatives include no fever, no abdominal pain, no constipation, no frequency, no dizziness, no urgency, no urinary burning or no urinary retention.There hasbeen no fever. The fever has been present for less than 1 day. She has tried antibiotics for the symptoms. The treatment provided no relief. Past Medical History Diagnosis Date ??? Diabetes ??? Bipolar I disorder, most recent episode (or current) unspecified ??? Generalized anxiety disorder ??? Ovarian cyst Past Surgical History Procedure Date ??? Tubal ligation, laparoscopic No family history on file. History Social History ??? Marital Status: Legally Spouse Name: N/A Number of Children: N/A ??? Years of Education: N/A Occupational History ??? Not on file. Social History Main Topics ??? Smoking status: Current Every Day Smoker -- 1.0 packs/day ??? Smokeless tobacco: Not on file ??? Alcohol Use: Yes ??? Drug Use: No ??? Sexually Active: Not on file Other Topics Concern ??? Not on file Social History Narrative ??? No narrative on file Review of Systems Review of Systems Constitutional: Negative. Negative for fever and chills. HENT: Negative for congestion, sore throat and neck pain. Eyes: Negative. Negative for blurred vision and double vision. Respiratory: Negative for cough, shortness of breath and wheezing. Cardiovascular: Negative for chest pain, palpitations and leg swelling. Gastrointestinal: Positive for nausea, vomiting and diarrhea. Negative for abdominal pain, constipation, blood in stool and melena. Genitourinary: Positive for hematuria and flank pain. Negative for dysuria, urgency and frequency. Musculoskeletal: Negative for myalgias and joint pain. Skin: Negative. Negative for itching and rash. Neurological: Negative for dizziness, tingling, sensory change, speech change, focal weakness and headaches. Endo/Heme/Allergies: Negative for polydipsia. Does not bruise/bleed easily. Psychiatric/Behavioral: Negative for memory loss. The patient is not nervous/anxious. All other systems reviewed and are negative. Physical Exam BP 142/91 Pulse 109 Temp 98.5 ??F Resp 16 Ht 1.6 m (5' 3 ) Wt 86.183 kg (190 lb) BMI 33.66 kg/m2 SpO2 99% Physical Exam Nursing note and vitals reviewed. Constitutional: She is oriented to person, place, and time and well-developed, well-nourished, and in no distress. Vital signs are normal. No distress. HENT: Head: Normocephalic and atraumatic. Mouth/Throat: Oropharynx is clear and moist. Eyes: EOM are normal. Pupils are equal, round, and reactive to light. No scleral icterus. Neck: Normal range of motion. Neck supple. No JVD present. Carotid bruit is not present. Cardiovascular: Normal rate, regular rhythm, normal heart sounds and intact distal pulses. Pulmonary/Chest: Effort normal and breath sounds normal. No respiratory distress. She has no wheezes. She exhibits no tenderness. Abdominal: Soft. Bowel sounds are normal. She exhibits no distension, no pulsatile midline mass andno mass. There is no hepatosplenomegaly. There is tenderness (Mild tenderness to R flank and R mid and lower abd. ). There is no guarding. Musculoskeletal: Normal range of motion. She exhibits no edema and no tenderness. Lymphadenopathy: She has no cervical adenopathy. Neurological: She is alert and oriented to person, place, and time. She has normal sensation, normal strength and intact cranial nerves. Skin: Skin is warm and dry. No rash noted. Mucous membranes moist Psychiatric: Mood, affect and judgment normal. Medications Current Outpatient Prescriptions Medication Status Sig Dispense Refill ??? cephALEXin (KEFLEX) 500 MG capsule Active Take 1 Cap by mouth 4 times daily for 5 days. 20 Cap 0 ??? sulfamethoxazole-trimethoprim (BACTRIM DS; SEPTRA DS) 800-160 MG tablet Active Take 1 Tab by mouth every 12 hours for 7 days. For 7 days. 14 Tab 0 Procedures Procedures EKG Interpretation Lab Interpretation Oxygen Saturation Interpretation The oxygen saturation level is: 99%. The patient was on Room Air for the saturation measurement. Measurement frequency: Spot Check. Oxygen saturation interpretation is Normal. Intervention(s) used: None. Results for orders placed during the hospital encounter of 10/21/13 URINALYSIS ROUTINE AUTO Component Value Range Color UA Yellow Straw, Yellow, Dark Yellow Clarity UA Cloudy Specific Anita UA 1.029 1.005-1.030 pH UA 5.0 5.0-8.0 pH Protein UA 2+ (*) Negative Blood UA 2+ (*) Negative Leukocyte UA Negative Negative Nitrite UA Negative Negative Glucose UA Negative Negative Ketone UA Negative Negative Bili UA 1+ (*) Negative Urobilinogen UA 0.2 0.1-1.0 EU/dL WBC UA Auto 10-20 (*) 0-2, 2-5 #/hpf RBC UA Auto 2-5 0-2, 2-5 #/hpf Epithelial Cell UA Auto 5-10 (*) 0-2, 2-5 #/hpf Hyaline Casts UA Auto 2-5 (*) 0-2 #/lpf CBC W AUTO DIFFERENTIAL Component Value Range WBC 10.5 4.4-10.7 x10^9/L RBC 4.87 3.80-5.20 x10^12/L Hgb 13.5 12.0-15.6 gm/dL HCT 39.6 35.9-45.5 % MCV 81.3 80.7-98.3 fl MCH 27.7 26.7-34.0 pg MCHC 34.1 30.8-35.9 gm/dL Plt Ct 241 153-416 x10^9/L RDW-CV 13.1 12.1-14.9 % MPV 8.9 (*) 9.4-12.9 fl Neutro 65.2 44.0-73.0 % Lymph 27.7 20.0-43.0 % Medina 4.8 (*) 5.0-13.0 % Eos 1.9 0.0-6.0 % Baso 0.2 0.0-2.0 % Immature Grans 0.2 0-1 % Neutro Abs 6.84 2.01-7.14 x10^9/L Lymph Abs 2.91 1.07-3.94 x10^9/L Medina Abs 0.50 0.26-1.07 x10^9/L Eosin Abs 0.20 0-0.47 x10^9/L Baso Abs 0.02 0-0.08 x10^9/L NRBC Auto 0 BASIC METABOLIC PANEL (CALCIUM TOTAL) Component Value Range Glucose 147 (*) 74-106 mg/dL Sodium 139 136-145 mmol/L Potassium 3.9 3.5-5.1 mmol/L Chloride 105 98-107 mmol/L CO2 26 22-31 mmol/L Calcium 9.1 8.5-10.1 mg/dL Anion Gap 8 5-15 mmol/L BUN 17 7-21 mg/dL Creatinine 0.44 (*) 0.50-1.30 mg/dL eGFR by MDRD >60 >60 mL/min/1.73m2 eGFR by MDRD AFR AMER >60 >60 mL/min/1.73m2 HCG BLOOD QUALITATIVE Component Value Range HCG Qual Serum Negative Negative CT ABDOMEN AND PELVIS NON IV CONTRAST Final Result: No obstruction or definite urinary stone seen at this time. A 1.3 CM cyst is suspected in the left ovary. Progress Notes 2:14 PM: Rechecked pt and informed her of non-acute CT without finding any stones. Discussed DDx: hemorrhagic cystitis. Upon re-examination pt appears mildly, diffusely tender. But patient appears well and is stable. ED evaluation is negative for an acutely dangerous pathology. Will discharge with treatment recommendations. I have given the patient instructions regarding their diagnosis, expectations, follow up, and return precautions. I explained to the patient that emergent conditions may arise that are not yet detectable on exam or testing, and to return to the ER for new, worsening, or any persistent conditions. I've explained the importance of following up with the listed physician (see DC instructions) as instructed. The patient verbalized understanding of the discharge instructionsand has no further questions at discharge. Advised her to not fill the Bactrim and start Keflex. ED Course Medical Decision Making I have reviewed the: Previous Chart, Nursing Notes and Vitals. I have interpreted the following results: Labs, CT Scans and Oxygen Saturation. Orders Placed This Encounter ??? Stone Protocol CT ??? URINALYSIS ROUTINE AUTO ??? CBC W AUTO DIFFERENTIAL ??? BASIC METABOLIC PANEL (CALCIUM TOTAL) ??? HCG BLOOD QUALITATIVE ??? acetaminophen (TYLENOL) tablet 650 mg ??? 0.9% NaCl infusion ??? ketorolac (TORADOL) injection 30 mg ??? ketorolac (TORADOL) 30 mg/ml injection ADS Med ??? cephALEXin (KEFLEX) 500 MG capsule Clinical Impression Final diagnoses: Right flank pain (Primary) Abdominal pain, acute Back pain UTI (lower urinary tract infection) I have reviewed the information recorded by the scribe and agree with its accuracy and contents--Dr. Alfonso 10/21/2013 2:40 PM Transcribed by Bernice Ortiz acting scribe on behalf of Dr. Alfonso 10/21/2013 11:46 AM SHAPER SET UP OPERATOR * Christina Obregon RN - 10/21/2013 11:41 AM CST Patient was just seen here Monday morning for back pain and diagnosed with a UTI. Patient states she couldn't afford her antibiotics and is now concerned because she still has the pain in her back,new bilateral pain in her abdomen near her kidneys, and blood in her urine. SHAPER SET UP OPERATOR documented in this encounter Miscellaneous Notes * Miscellaneous Scans - Document, Scanned - 10/23/2013 1:37 AM CST SHAPER SET UP OPERATOR documented in this encounter Plan of Treatment Upcoming Encounters Date Type Department Care Team (Late st Contact Info) Description 12/27/2024 1:00 PM TOOL SHAPER SET UP OPERATOR Office Visit [facility] [id number] [place] [address] [place] [id number] [address] [facility] [address] [place] [address] documented as of this encounter Procedures Procedure Name Priority Date/Time Associated Diagnosis Comments HCG BLOOD QUALITATIVE STAT 10/21/2013 1:03 PM TOOL SHAPER SET UP OPERATOR CT ABDOMEN PELVIS WO CONTRAST STAT 10/21/2013 1:02 PM TOOL SHAPER SET UP OPERATOR Right flank pain CBC W AUTO DIFFERENTIAL STAT 10/21/2013 12:46 PM TOOL SHAPER SET UP OPERATOR BASIC METABOLIC PANEL (CALCIUM TOTAL) STAT 10/21/2013 12:46 PM TOOL SHAPER SET UP OPERATOR URINALYSIS REFLEX TO MICROSCOPIC NO CULTURE STAT 10/21/2013 11:44 AM TOOL SHAPER SET UP OPERATOR documented in this encounter Results * HCG BLOOD QUALITATIVE (10/21/2013 1:03 PM TOOL SHAPER SET UP OPERATOR) HCG Qual Serum Negative Negative 10/21/2013 1:31 PM TOOL SHAPER SET UP OPERATOR [facility] Blood BLOOD SPECIMEN / Unknown Venipuncture / Unknown 10/21/2013 1:03 PM TOOL SHAPER SET UP OPERATOR 10/21/2013 1:19 PM TOOL SHAPER SET UP OPERATOR Narrative [facility] - 10/21/2013 1:31 PM TOOL SHAPER SET UP OPERATOR Specimens containing heterophilic antibodies may demonstrate false positive results. ??Specimens containing human anti-mouse antibodies may exhibit false positive or false negative results. If qualitative interpretation is inconsistant with clinical evaluation, consider confirmation by an alternative HCG method. Boy Alfonso MD LAB - CHEMISTRY [facility]ARCEL [facility] Organization Address City/State/ZIP Co de Phone Number [facility] [address] [id number] * Stone Protocol CT (10/21/2013 1:02 PM TOOL SHAPER SET UP OPERATOR) Anatomical Region Laterality Modality Abdomen, Pelvis Computed Tomogra phy 10/21/2013 1:35 PM TOOL SHAPER SET UP OPERATOR Impressions 10/21/2013 1:39 PM TOOL SHAPER SET UP OPERATOR No obstruction or definite urinary stone seen at this time. A 1.3 CM cyst is suspected in the left ovary. Narrative 10/21/2013 1:39 PM TOOL SHAPER SET UP OPERATOR Examination: Noncontrast Abdomen and Pelvic CT Indication: [...] grammatical or syntax problems by a trained medical translator. For questions about the report, please contact [...] grammatical or syntax problems by a trained medical translator. For questions about the report, please contact the Radiology Department. IMPRESSION No obstruction or definite urinary stone seen at this time. A 1.3 CM cyst is suspected in the left ovary. Boy Alfonso MD CT ORDERABLES * (ABNORMAL) BASIC METABOLIC PANEL (CALCIUM TOTAL) (10/21/2013 12:46 PM TOOL SHAPER SET UP OPERATOR) Glucose 147(H) 74 - 106 mg/dL 10/21/2013 1:10 PM [facility] Sodium 139 136 - 145 mmol/L 10/21/2013 1:10 PM [facility] Potassium 3.9 3.5 - 5.1 mmol/L 10/21/2013 1:10 PM [facility] Chloride 105 98 - 107 mmol/L 10/21/2013 1:10 PM [facility] CO2 26 22 - 31 mmol/L 10/21/2013 1:10 PM [facility] Calcium 9.1 8.5 - 10.1 mg/dL 10/21/2013 1:10 PM [facility] Anion Gap 8 5 - 15 mmol/L 10/21/2013 1:10 PM [facility] BUN 17 7 - 21 mg/dL 10/21/2013 1:10 PM [facility] Creatinine 0.44(L) 0.50 - 1.30 mg/dL 10/21/2013 1:10 PM [facility] eGFR by MDRD >60 >60 mL/min/1.7 3m2 10/21/2013 1:10 PM [facility] eGFR by MDRD >60 >60 mL/min/1.7 3m2 10/21/2013 1:10 PM [facility] Blood BLOOD SPECIMEN / Unknown Venipuncture / Unknown 10/21/2013 12:46 PM [employer]ER SET UP OPERATOR 10/21/2013 12:56 PM [facility] Boy Alfonso MD LAB - CHEMISTRY MARCEL TEIXEIRA [facility] [address] [place] [address] * (ABNORMAL) CBC W AUTO DIFFERENTIAL (10/21/2013 12:46 PM [facility]) WBC 10.5 4.4 - 10.7 x10^9/L 10/21/2013 12:58 PM [facility] RBC 4.87 3.80 - 5.20 x10^12/L 10/21/2013 12:58 PM [facility] Hemoglobin 13.5 12.0 - 15.6 gm/dL 10/21/2013 12:58 PM [facility] Hematocrit 39.6 35.9 - 45.5 % 10/21/2013 12:58 PM [facility] MCV 81.3 80.7 - 98.3 fl 10/21/2013 12:58 PM [facility] MCH 27.7 26.7 - 34.0 pg 10/21/2013 12:58 PM [facility] MCHC 34.1 30.8 - 35.9 gm/dL 10/21/2013 12:58 PM [facility] Platelet Count 241 153 - 416 x10^9/L 10/21/2013 12:58 PM [facility] RDW-CV 13.1 12.1 - 14.9 % 10/21/2013 12:58 PM [facility] MPV 8.9(L) 9.4 - 12.9 fl 10/21/2013 12:58 PM [facility] Neutrophils % 65.2 44.0 - 73.0 % 10/21/2013 12:58 PM [facility] Lymphocytes % 27.7 20.0 - 43.0 % 10/21/2013 12:58 PM [facility] Monocytes % 4.8(L) 5.0 - 13.0 % 10/21/2013 12:58 PM [facility] Eosinophils % 1.9 0.0 - 6.0 % 10/21/2013 12:58 PM [facility] Basophils % 0.2 0.0 - 2.0 % 10/21/2013 12:58 PM [facility] Immature Granulocytes 0.2 0 - 1 % 10/21/2013 12:58 PM [facility] Neutrophil Absolute 6.84 2.01 - 7.14 x10^9/L 10/21/2013 12:58 PM [facility] Lymphocytes Absolute 2.91 1.07 - 3.94 x10^9/L 10/21/2013 12:58 PM [facility] Monocytes Absolute 0.50 0.26 - 1.07 x10^9/L 10/21/2013 12:58 PM [facility] Eosinophils Absolute 0.20 0 - 0.47 x10^9/L 10/21/2013 12:58 PM [facility] Basophils Absolute 0.02 0 - 0.08 x10^9/L 10/21/2013 12:58 PM [facility] nRBC Auto 0 /100 WBC 10/21/2013 12:58 PM [facility] Blood BLOOD SPECIMEN / Unknown Venipuncture / Unknown 10/21/2013 12:46 PM [employer] SET UP OPERATOR 10/21/2013 12:56 PM [facility] Boy Alfonso MD LAB - HEMATOLOGY ORD ERABLES [facility] [address] [id number] * (ABNORMAL) URINALYSIS ROUTINE AUTO (10/21/2013 11:44 AM [facility]) Color UA Yellow Straw, Yellow, Dark Yellow 10/21/2013 11:56 AM [facility] Clarity UA Cloudy 10/21/2013 11:56 AM [facility] Specific Anita UA 1.029 1.005 - 1.030 10/21/2013 11:56 AM [facility] pH UA 5.0 5.0 - 8.0 pH 10/21/2013 11:56 AM [facility] Protein UA 2+(A) Negative 10/21/2013 11:56 AM [facility] Blood UA 2+(A) Negative 10/21/2013 11:56 AM [facility] Leukocyte UA Negative Negative 10/21/2013 11:56 AM [facility] Nitrite UA Negative Negative 10/21/2013 11:56 AM [facility] Glucose UA Negative Negative 10/21/2013 11:56 AM [facility] Ketone UA Negative Negative 10/21/2013 11:56 AM [facility] Bilirubin UA 1+(A) Negative 10/21/2013 11:56 AM [facility] Urobilinogen UA 0.2 0.1 - 1.0 EU/dL 10/21/2013 11:56 AM [facility] WBC UA Auto 10-20(A) 0-2, 2-5 #/hpf 10/21/2013 11:56 AM [facility] RBC UA Auto 2-5 0-2, 2-5 #/hpf 10/21/2013 11:56 AM [facility] Epithelial Cell UA Auto 5-10(A) 0-2, 2-5 #/hpf 10/21/2013 11:56 AM [facility] Hyaline Casts UA Auto 2-5(A) 0 - 2 #/lpf 10/21/2013 11:56 AM [facility] Urine URINE SPECIMEN OBTAINED BY CLEAN CATCH PROCEDURE / Unknown Collection / Unknown 10/21/2013 11:44 AM TOOL [employer]ER SET UP OPERATOR 10/21/2013 11:49 AM [facility] Boy Alfonso MD LAB - URINALYSIS ORD ERABLES Performing Organization Address City/State/[facility] Co de Phone Number [facility] [address] [id number] documented in this encounter Visit Diagnoses Diagnosis Right flank pain- Primary Abdominal pain, unspecified site Right flank pain Abdominal pain, unspecified site Abdominal pain, acute Abdominal pain, unspecified site Back pain Backache, unspecified UTI (lower urinary tract infection) Urinary tract infection, site not specified documented in this encounter Administered Medications Inactive Administered Medications - up to 3 most recent administrations Medication Order MAR Action Action Date Dose Rate Site 0.9% NaCl infusion at 1,000 mL/hr, Intravenous, ONCE, 1 dose, On 10/21/13 at 1215, Administer 500 mL Bolus $ Given 10/21/2013 1:05 PM TOOL [employer]APER SET UP OPERATOR 1,000 mL 1000 mL /hr ketorolac (TORADOL) 30 mg/ml injection ADS Med 1 dose, Starting on Mon10/21/13 at 1407, Until Mon10/21/13 at 1419, Christina Obregon: cabinet override . WASTE DISPOSAL INSTRUCTIONS: Black Bin Disposal required. ketorolac (TORADOL) injection 30 mg 30 mg, Intravenous, ONCE, 1 dose, On Mon10/21/13 at 1430, . WASTE DISPOSAL INSTRUCTIONS: Black Bin Disposal required. $ Given 10/21/2013 2:19 PM TOOL SHAPER SET UP OPERATOR 30 mg documented in this encounter Active and Recently Administered Medications Times are shown in TOOL SHAPER SET UP OPERATOR. Scheduled Medication Order 10/19/2013 10/20/2013 10/21/2013 0.9% NaCl infusion (COMPLETED) at 1,000 mL/hr, Intravenous, ONCE, 1 dose, On Mon10/21/13 at 1215, Administer 500 mL Bolus 1305 ($ Given - Prov ider: Christina Obregon RN)1520 (Rx Stopped - Provider: Christina Obregon RN) ketorolac (TORADOL) injection 30 mg (COMPLETED) 30 mg, Intravenous, ONCE, 1 dose, On Mon10/21/13 at 1430, . WASTE DISPOSAL INSTRUCTIONS: Black Bin Disposal required. 1419 ($ Given - Prov ider: Christina Obregon RN) documented in this encounter Care Teams Data Designer Relationship Specialty Start Date End Date None, P[place] [address] PCP - General 10/19/13 documented as of this encounter
--- OUTSIDE RECORDS SUMMARY | 2024-11-17 14:25 | XMS_ITS | Encounter Summary ---
Author Organization [facility] Address [address] [place] [address] Care Team Providers Care Marketing Operations Consultant Name Role Phone None, Pcp Primary Care Provider Unavailabl e Reason for Visit * Reason Comments Pain Back lower back pain, x a few weeks. Encounter Details Date Type Department Care Team (Late st Contact Info) Description 10/19/2013 11:11 AM [employer]SIDE [employer] - 10/19/2013 1:33 PM OUTSIDE CONTRACTOR SALES Emergency ER at [facility] [address] [place] [address] Anyi Mullins MD [address] [place] [address] Jeff Maldonado, DO [address] [place] [id number] Pyelonephritis, unspecified (Primary Dx) Discharge Disposition: Home or Self Care Social [...] Sign Reading Time Taken Comments Blood Pressure 128/80 10/19/2013 1:02 PM [employer] Pulse 78 10/19/2013 1:02 PM [employer] Temperature 37.1 ??C (98.8 ??F) 10/19/2013 1:02 PM CS T Respiratory Rate 16 10/19/2013 1:02 PM [employer] Oxygen Saturation 100% 10/19/2013 1:02 PM [employer] Inhaled Oxygen Concentration - - Weight 88 kg (194 lb) 10/19/2013 1:02 PM [employer] Height 160 cm (5' 3 ) 10/19/2013 1:02 PM [employer] Body Mass Index 34.37 10/19/2013 1:02 PM [employer] documented in this encounter Discharge Instructions * Discharge Instructions* Ludivina Villanueva RN - 10/19/2013 1:33 PM [employer]SIDE [employer]ES Pyelonephritis, Adult Pyelonephritis is a kidney infection. In general, there are 2 main types of pyelonephritis: ?? Infections that come on quickly without any warning (acute pyelonephritis). ?? Infections that persist for a long period of time (chronic pyelonephritis). CAUSES Two main causes of pyelonephritis are: ?? Bacteria traveling from the bladder to the kidney. This is a problem especially in women. The urine in the bladder can become filled with bacteria from multiple causes, including: ?? Inflammation of the prostate gland (prostatitis). ?? Sexual intercourse in females. ?? Bladder infection (cystitis). ?? Bacteria traveling from the bloodstream to the tissue part of the kidney. Problems that may increase your risk of getting a kidney infection include: ?? Diabetes. ?? Kidney stones or bladder stones. ?? Cancer. ?? Catheters placed in the bladder. ?? Other abnormalities of the kidney or ureter. SYMPTOMS ?? Abdominal pain. ?? Pain in the side or flank area. ?? Fever. ?? Chills. ?? Upset stomach. ?? Blood in the urine (dark urine). ?? Frequent urination. ?? Strong or persistent urge to urinate. ?? Burning or stinging when urinating. DIAGNOSIS Your caregiver may diagnose your kidney infection based on your symptoms. A urine sample may also be taken. TREATMENT In general, treatment depends on how severe the infection is. ?? If the infection is mild and caught early, your caregiver may treat you with oral antibiotics and send you home. ?? If the infection is more severe, the bacteria may have gotten into the bloodstream. This will require intravenous (IV) antibiotics and a hospital stay. Symptoms may include: ?? High fever. ?? Severe flank pain. ?? Shaking chills. ?? Even after a hospital stay, your caregiver may require you to be on oral antibiotics for a period of time. ?? Other treatments may be required depending upon the cause of the infection. HOME CARE INSTRUCTIONS ?? Take your antibiotics as directed. Finish them even if you start to feel better. ?? Make an appointment to have your urine checked to make sure the infection is gone. ?? Drink enough fluids to keep your urine clear or pale yellow. ?? Take medicines for the bladder if you have urgency and frequency of urination as directed by your caregiver. SEEK IMMEDIATE MEDICAL CARE IF: ?? You have a fever or persistent symptoms for more than 2-3 days. ?? You have a fever and your symptoms suddenly get worse. ?? You are unable to take your antibiotics or fluids. ?? You develop shaking chills. ?? You experience extreme weakness or fainting. ?? There is no improvement after 2 days of treatment. MAKE SURE YOU: ?? Understand these instructions. ?? Will watch your condition. ?? Will get help right away if you are not doing well or get worse. Document Released: 11/06/2006 Document Revised: 05/07/2013 Document Reviewed: 04/11/2012 ExitCare?? Patient Information ??2013 Stand Offer. [employer] * Discharge Instructions* Document, Scanned - 10/22/2013 11:44 AM OUTSIDE CONTRACTOR SALES [employer] documented in this encounter Medications at Time of Discharge Medication Sig Dispensed Refills Start Date End Date ibuprofen (MOTRIN) 200 MG tablet Take 400 mg by mouth every 6 hours as needed. 10/21/2013 sulfamethoxazole-trimetho prim (BACTRIM DS; SEPTRA DS) 800-160 MG tablet Take 1 Tab by mouth every 12 hours for 7 days. For 7 days. 14 Tab 0 10/19/2013 10/26/2013 documented as of this encounter Progress Notes * Venkat Ross RN - 10/21/2013 3:00 PM CSTQuick Note: Final noted and pt returned today. [employer] * Eva Meza RN - 10/20/2013 1:55 PM CSTQuick Note: Discharged on Bactrim, will await further results and sensitivities. [employer] documented in this encounter ED Notes * Anyi Mullins MD - 10/19/2013 11:12 AM CST Provider contact with the patient: 10/19/2013 11:12 Kylee Guo [id number] [facility] History Chief Complaint Patient presents with ??? Pain Back lower back pain, x a few weeks. Chief complaint narrative was entered by triage nurse, not by physician. HPI Comments: 11:13 AM Kylee Guo is a 28 y.o. female with a past medical history of DM, kidney cyst presents to the ER c/o back pain onset yesterday. Pt states I thought I pulled a muscle, but yesterday it was really bad and got worse throughout the day. Reports shooting pain around side when standing up. Also c/o fatigue, and palpitations (though states that she has anxiety that causes her intermittent palpitations). Reports fairly recent UTI for which she had abx, though denies recent urinary Sx. Also reports that she has DM and has had fluctuating glucose levels. Denies dysuria. No other complaints or modifying factors at this time. Physician: Pcp None Pain Back Primary symptoms include back pain.The history is provided by the patient. This is a new problem. The current episode started more than 1 week ago. The problem occurs constantly. The problem has beengradually worsening. The pain is associated with no known injury. There have been prior injuries tothese areas (reports chronic lumbar pain, though states her current pain is more on the sides). Thepain is present in the lower back. The problem affects both sides. The quality of the pain is described as shooting. Radiates to: none. The pain is moderate. Exacerbated by: standing up from sitting.Nothing relieves the symptoms. There has been no chest pain, no fever, no headaches, no abdominal pa in, no bowel incontinence, no bladder incontinence, no dysuria, no paresis, no tingling, no weakness and no sciatica .She has tried analgesics (Tylenol) for the symptoms. The treatment provided mild relief. Past Medical History Diagnosis Date ??? [...] Review of Systems Review of Systems Constitutional: Positive for malaise/fatigue. Negative for fever and chills. HENT: Negative for congestion, sore throat and neck pain. Eyes: Negative. Respiratory: Negative for cough and shortness of breath. Cardiovascular: Positive for palpitations (not new per pt). Negative for chest pain. Gastrointestinal: Negative for heartburn, nausea, vomiting, abdominal pain, diarrhea and bowel incontinence. Genitourinary: Positive for flank pain. Negative for bladder incontinence, dysuria, urgency, frequency and hematuria. Musculoskeletal: Positive for back pain. Negative for myalgias and joint pain. Skin: Negative. Neurological: Negative for dizziness, tingling, loss of consciousness, weakness and headaches. Endo/Heme/Allergies: Negative for environmental allergies. Physical Exam BP 128/80 Pulse 78 Temp 98.8 ??F Resp 16 Ht 1.6 m (5' 3 ) Wt 87.998 kg (194 lb) BMI 34.37 kg/m2 SpO2 100% RA Physical Exam Nursing note and vitals reviewed. Constitutional: She is oriented to person, place, and time and well-developed, well-nourished, and in no distress. Vital signs are normal. HENT: Head: Normocephalic and atraumatic. Mouth/Throat: Oropharynx is clear and moist. Eyes: Conjunctivae normal and EOM are normal. Pupils are equal, round, and reactive to light. Neck: Normal range of motion. Neck supple. No thyromegaly present. Cardiovascular: Normal rate, regular rhythm, normal heart sounds and intact distal pulses. Pulmonary/Chest: Effort normal and breath sounds normal. She has no wheezes. She has no rales. Abdominal: Soft. Normal appearance and bowel sounds are normal. She exhibits no distension. There is no tenderness. There is CVA tenderness (bilat). Musculoskeletal: Normal range of motion. She exhibits no edema and no tenderness. Lymphadenopathy: She has no cervical adenopathy. Neurological: She is alert and oriented to person, place, and time. Gait normal. GCS score is 15. Skin: Skin is warm and dry. No rash noted. Psychiatric: Affect normal. Medications Current Outpatient Prescriptions Medication Status Sig Dispense Refill ??? ibuprofen (MOTRIN) 200 MG tablet Active Take 400 mg by mouth every 6 hours as needed. ??? sulfamethoxazole-trimethoprim (BACTRIM DS; SEPTRA DS) 800-160 MG tablet Active Take 1 Tab by mouth every 12 hours for 7 days. For 7 days. 14 Tab 0 Procedures Procedures EKG Interpretation Lab Interpretation Oxygen Saturation Interpretation The oxygen saturation level is: 100%. The patient was on Room Air for the saturation measurement. Measurement frequency: Spot Check. Oxygen saturation interpretation is Normal. Intervention(s) used: None. Results for orders placed during the hospital encounter of 10/19/13 URINALYSIS ROUTINE W/REFLEX TO CULTURE Component Value Range Color UA Yellow Straw, Yellow, Dark Yellow Clarity UA Cloudy Specific [place] UA 1.026 1.005-1.030 pH UA 6.5 5.0-8.0 pH Protein UA 1+ (*) Negative Blood UA Negative Negative Leukocyte UA Negative Negative Nitrite UA Negative Negative Glucose UA 3+ (*) Negative Ketone UA Negative Negative Bili UA Negative Negative Urobilinogen UA 0.2 0.1-1.0 EU/dL WBC UA Auto 20-50 (*) 0-2, 2-5 #/hpf RBC UA Auto 5-10 (*) 0-2, 2-5 #/hpf Epithelial Cell UA Auto 20-50 (*) 0-2, 2-5 #/hpf Bacteria UA Auto 2+ (*) None seen Hyaline Casts UA Auto 5-10 (*) 0-2 #/lpf Urine Microscopy Urine microscopy not indicated Reflex Status Culture to follow HCG URINE QUALITATIVE - POINT OF CARE (IP) Component Value Range HCG Qual Urine Negative Negative QC Verified yes Yes CBC W AUTO DIFFERENTIAL Component Value Range WBC 6.8 4.4-10.7 x10^9/L RBC 4.22 3.80-5.20 x10^12/L Hgb 11.5 (*) 12.0-15.6 gm/dL HCT 34.7 (*) 35.9-45.5 % MCV 82.2 80.7-98.3 fl MCH 27.3 26.7-34.0 pg MCHC 33.1 30.8-35.9 gm/dL Plt Ct 213 153-416 x10^9/L RDW-CV 13.0 12.1-14.9 % MPV 8.8 (*) 9.4-12.9 fl Neutro 61.4 44.0-73.0 % Lymph 30.8 20.0-43.0 % [place] 5.0 5.0-13.0 % Eos 2.4 0.0-6.0 % Baso 0.3 0.0-2.0 % Immature Grans 0.1 0-1 % Neutro Abs 4.15 2.01-7.14 x10^9/L Lymph Abs 2.08 1.07-3.94 x10^9/L [place] Abs 0.34 0.26-1.07 x10^9/L Eosin Abs 0.16 0-0.47 x10^9/L Baso Abs 0.02 0-0.08 x10^9/L NRBC Auto 0 COMPREHENSIVE METABOLIC PANEL Component Value Range Glucose 266 (*) 74-106 mg/dL Sodium 139 136-145 mmol/L Potassium 4.0 3.5-5.1 mmol/L Chloride 105 98-107 mmol/L CO2 24 22-31 mmol/L Calcium 8.4 (*) 8.5-10.1 mg/dL Anion Gap 10 5-15 mmol/L BUN 10 7-21 mg/dL Creatinine 0.59 0.50-1.30 mg/dL eGFR by MDRD >60 >60 mL/min/1.73m2 eGFR by MDRD AFR AMER >60 >60 mL/min/1.73m2 Alk Phos 107 38-126 U/L ALT/SGPT 28 12-78 U/L AST/SGOT 14 5-40 U/L Protein Total 7.4 6.4-8.2 gm/dL Albumin 3.3 (*) 3.4-5.0 gm/dL Bili Total 0.2 0.2-1.0 mg/dL Progress Notes 11:31 AM: plan to obtain labs and will give Toradol 12:56 PM: Rechecked Pt: discussed lab findings, advised pt that she has a UTI. Will d/c pt with Bactrim. Instructed pt to RTER if she starts vomiting and cannot tolerate food, if she develops a fever, or if any of her current Sx worsen. ED Course Medical Decision Making I have reviewed the: Nursing Notes and Vitals. I have interpreted the following results: Labs and Oxygen Saturation. Based on patient's history and physical exam; patient will be d/c; patient was given Toradol, IVF's; testing includes labs; my clinical impression: UTI Orders Placed This Encounter ??? CULTURE URINE ??? URINALYSIS ROUTINE W/REFLEX TO CULTURE ??? CBC W AUTO DIFFERENTIAL ??? COMPREHENSIVE METABOLIC PANEL ??? HCG URINE QUALITATIVE - POINT OF CARE (IP) ??? DISCONTD: 0.9% NaCl injection 3 mL ??? DISCONTD: 0.9% NaCl injection 3 mL ??? 0.9% NaCl infusion ??? ketorolac (TORADOL) injection 30 mg ??? sulfamethoxazole-trimethoprim (BACTRIM DS; SEPTRA DS) 800-160 MG tablet Pt is medically stable for d/c home at this time. I have given the patient instructions regarding her diagnosis, expectations, follow up, and return precautions. I explained to the patient that emergent conditions may arise and to return to the ER for new, worsening, or any persistent conditions. I've explained the importance of following up with her doctor--Pcp None--(or the referral physician) as instructed. The patient verbalized understanding of the discharge instructions. Diagnosis: Final diagnoses: Pyelonephritis, unspecified (Primary) New Medications: New Prescriptions SULFAMETHOXAZOLE-TRIMETHOPRIM (BACTRIM DS; SEPTRA DS) 800-160 MG TABLET Take 1 Tab by mouth every 12 hours for 7 days. For 7 days. I have advised the patient to follow-up with: Sil[place] [address] [place] [phone] Schedule an appointment as soon as possible for a visit in 1 week Pcp None Disposition: Discharged I have reviewed the information recorded by the scribe and agree with its accuracy and contents--Dr. Mullins 10/19/2013 3:46 PM Transcribed by Deborah Lyn acting scribe on behalf of Dr. Mullins 10/19/2013 11:13 AM [employer] documented in this encounter Miscellaneous Notes * Miscellaneous Scans - Document, Scanned - 10/22/2013 11:44 AM CST [employer] documented in this encounter Plan of Treatment Upcoming Encounters Date Type Department Care Team (Late st Contact Info) Description 12/27/2024 1:00 PM OUTSIDE CONTRACTOR SALES Office Visit [facility] [id number] [place] [id number] [place] [id number] [phone] documented as of this encounter Procedures Procedure Name Priority Date/Time Associated Diagnosis Comments CBC W AUTO DIFFERENTIAL STAT 10/19/2013 11:57 AM OUTSIDE [employer]OR SALES COMPREHENSIVE METABOLIC PANEL STAT 10/19/2013 11:57 AM OUTSIDE [employer]OR SALES HCG URINE QUALITATIVE - POINT OF CARE STAT 10/19/2013 11:57 AM [employer]SIDE [employer] SALES URINALYSIS REFLEX MICROSCOPIC REFLEX CULTURE STAT 10/19/2013 11:50 AM OUTSIDE [employer]OR SALES CULTURE URINE STAT 10/19/2013 11:50 AM [employer] documented in this encounter Results * (ABNORMAL) COMPREHENSIVE METABOLIC PANEL (10/19/2013 11:57 AM OUTSIDE [employer] SALES) Glucose 266(H) 74 - 106 mg/dL 10/19/2013 12:19 PM OUTSIDE CONTRACTOR SALES [facility] Sodium 139 136 - 145 mmol/L 10/19/2013 12:19 PM [facility] Potassium 4.0 3.5 - 5.1 mmol/L 10/19/2013 12:19 PM [facility] Chloride 105 98 - 107 mmol/L 10/19/2013 12:19 PM [facility] CO2 24 22 - 31 mmol/L 10/19/2013 12:19 PM [facility] Calcium 8.4(L) 8.5 - 10.1 mg/dL 10/19/2013 12:19 PM [facility] Anion Gap 10 5 - 15 mmol/L 10/19/2013 12:19 PM [facility] BUN 10 7 - 21 mg/dL 10/19/2013 12:19 PM [facility] Creatinine 0.59 0.50 - 1.30 mg/dL 10/19/2013 12:19 PM [facility] eGFR by MDRD >60 >60 mL/min/1.7 3m2 10/19/2013 12:19 PM [facility] eGFR by MDRD >60 >60 mL/min/1.7 3m2 10/19/2013 12:19 PM [facility] Alkaline Phosphatase 107 38 - 126 U/L 10/19/2013 12:19 PM [facility] ALT 28 12 - 78 U/L 10/19/2013 12:19 PM [facility] AST 14 5 - 40 U/L 10/19/2013 12:19 PM [facility] Protein Total 7.4 6.4 - 8.2 gm/dL 10/19/2013 12:19 PM [facility] Albumin 3.3(L) 3.4 - 5.0 gm/dL 10/19/2013 12:19 PM [facility] Bilirubin Total 0.2 0.2 - 1.0 mg/dL 10/19/2013 12:19 PM [facility] Blood BLOOD SPECIMEN / Unknown Venipuncture / Unknown 10/19/2013 11:57 AM [facility] 10/19/2013 12:01 PM [facility] Anyi Mullins MD LAB - CHEMISTRY MARCEL TEIXEIRA [facility] Organization Address City/State/ZIP Co de Phone Number [facility] [address] [id number] * (ABNORMAL) CBC W AUTO DIFFERENTIAL (10/19/2013 11:57 AM [facility]) WBC 6.8 4.4 - 10.7 x10^9/L 10/19/2013 12:04 PM [facility] RBC 4.22 3.80 - 5.20 x10^12/L 10/19/2013 12:04 PM [facility] Hemoglobin 11.5(L) 12.0 - 15.6 gm/dL 10/19/2013 12:04 PM [facility] Hematocrit 34.7(L) 35.9 - 45.5 % 10/19/2013 12:04 PM [facility] MCV 82.2 80.7 - 98.3 fl 10/19/2013 12:04 PM [facility] MCH 27.3 26.7 - 34.0 pg 10/19/2013 12:04 PM [facility] MCHC 33.1 30.8 - 35.9 gm/dL 10/19/2013 12:04 PM [facility] Platelet Count 213 153 - 416 x10^9/L 10/19/2013 12:04 PM [facility] RDW-CV 13.0 12.1 - 14.9 % 10/19/2013 12:04 PM [facility] MPV 8.8(L) 9.4 - 12.9 fl 10/19/2013 12:04 PM [facility] Neutrophils % 61.4 44.0 - 73.0 % 10/19/2013 12:04 PM [facility] Lymphocytes % 30.8 20.0 - 43.0 % 10/19/2013 12:04 PM [facility] Monocytes % 5.0 5.0 - 13.0 % 10/19/2013 12:04 PM [facility] Eosinophils % 2.4 0.0 - 6.0 % 10/19/2013 12:04 PM [facility] Basophils % 0.3 0.0 - 2.0 % 10/19/2013 12:04 PM [facility] Immature Granulocytes 0.1 0 - 1 % 10/19/2013 12:04 PM [facility] Neutrophil Absolute 4.15 2.01 - 7.14 x10^9/L 10/19/2013 12:04 PM [facility] Lymphocytes Absolute 2.08 1.07 - 3.94 x10^9/L 10/19/2013 12:04 PM [employer] [facility] Monocytes Absolute 0.34 0.26 - 1.07 x10^9/L 10/19/2013 12:04 PM [employer]ES [facility] Eosinophils Absolute 0.16 0 - 0.47 x10^9/L 10/19/2013 12:04 PM [facility] Basophils Absolute 0.02 0 - 0.08 x10^9/L 10/19/2013 12:04 PM [employer]ES [facility] nRBC Auto 0 /100 WBC 10/19/2013 12:04 PM [employer]ES [facility] Blood BLOOD SPECIMEN / Unknown 10/19/2013 11:57 AM [employer] 10/19/2013 12:01 PM [employer] Anyi Mullins MD LAB - HEMATOLOGY ORD ERABLES [facility] [address] [id number] * HCG URINE QUALITATIVE - POINT OF CARE (IP) (10/19/2013 11:57 AM [employer]) HCG Qual Urine Negative Negative [facility] POCT TESTING QC Verified yes Yes [facility] POC T TESTING Urine specimen (specimen) URINE / Unknown 10/19/2013 11:57 AM [employer]SIDE [employer]ES Anyi Mullins MD LAB - POINT OF CARE ORDERABLES Performing Organization Address City/[facility]/ZIP Co de Phone Number [facility] [address] [id number] * (ABNORMAL) CULTURE URINE (10/19/2013 11:50 AM [employer]) Culture 10,000-50,000 CFU/mL Streptococcus agalactiae (Group B)(A) 10/21/2013 8:34 AM OUTSIDE [employer]OR SALES [facility] Culture <10,000 CFU/mL normal enteric marin 10/21/2013 8:34 AM OUTSIDE [employer]OR SALES [facility] Urine URINE SPECIMEN OBTAINED BY CLEAN CATCH PROCEDURE / Unknown 10/19/2013 11:50 AM [employer]SIDE [employer]ES 10/19/2013 11:50 AM OUTSIDE [employer]OR SALES Narrative [facility] - 10/21/2013 8:34 AM [employer]SIDE [employer] SALES Susceptibility testing of penicillin, other beta-lactam antibiotics, and vancomycin is not necessary for beta-hemolytic streptococci groups A,B,C and G because resistant strains have not been recognized. Anyi Mullins MD LAB - MICROBIOLOGY [facility] [address] [place] [address], [facility] * (ABNORMAL) URINALYSIS ROUTINE W/REFLEX TO CULTURE (10/19/2013 11:50 AM [employer]) Color UA Yellow Straw, Yellow, Dark Yellow 10/19/2013 11:57 AM [facility] Clarity UA Cloudy 10/19/2013 11:57 AM [facility] Specific [place] UA 1.026 1.005 - 1.030 10/19/2013 11:57 AM [facility] pH UA 6.5 5.0 - 8.0 pH 10/19/2013 11:57 AM [facility] Protein UA 1+(A) Negative 10/19/2013 11:57 AM [facility] Blood UA Negative Negative 10/19/2013 11:57 AM [facility] Leukocyte UA Negative Negative 10/19/2013 11:57 AM [facility] Nitrite UA Negative Negative 10/19/2013 11:57 AM [facility] Glucose UA 3+(A) Negative 10/19/2013 11:57 AM [facility] Ketone UA Negative Negative 10/19/2013 11:57 AM [facility] Bilirubin UA Negative Negative 10/19/2013 11:57 AM [facility] Urobilinogen UA 0.2 0.1 - 1.0 EU/dL 10/19/2013 11:57 AM [facility] WBC UA Auto 20-50(A) 0-2, 2-5 #/hpf 10/19/2013 11:57 AM [facility] RBC UA Auto 5-10(A) 0-2, 2-5 #/hpf 10/19/2013 11:57 AM [facility] Epithelial Cell UA Auto 20-50(A) 0-2, 2-5 #/hpf 10/19/2013 11:57 AM [facility] Bacteria UA Auto 2+(A) None seen 10/19/2013 11:57 AM [facility] Hyaline Casts UA Auto 5-10(A) 0 - 2 #/lpf 10/19/2013 11:57 AM [employer]ES [facility] Urine Microscopy Urine microscopy not indicated 10/19/2013 11:57 AM [employer]ES [facility] Reflex Status Culture to follow 10/19/2013 11:57 AM [employer]ES [facility] Urine URINE SPECIMEN OBTAINED BY CLEAN CATCH PROCEDURE / Unknown Collection / Unknown 10/19/2013 11:50 AM [employer] 10/19/2013 11:50 AM [employer] Anyi Mullins MD LAB - URINALYSIS ORD ERABLES [facility] [address] [id number] documented in this encounter Visit Diagnoses Diagnosis Pyelonephritis, unspecified- Primary documented in this encounter Administered Medications Inactive Administered Medications - up to 3 most recent administrations Medication Order MAR Action Action Date Dose Rate Site 0.9% NaCl infusion 1,000 mL/hr, Intravenous, BOLUS IV, 1 dose, On 10/19/13 at 1145 $ Given 10/19/2013 12:02 PM [employer] 1,000 mL/hr 1000 mL/hr ketorolac (TORADOL) injection 30 mg 30 mg, Intravenous, ONCE, 1 dose, On 10/19/13 at 1200, . WASTE DISPOSAL INSTRUCTIONS: Black Bin Disposal required. $ Given 10/19/2013 12:02 PM OUTSIDE CONTRACTOR SALES 30 mg documented in this encounter Active and Recently Administered Medications Times are shown in OUTSIDE CONTRACTOR SALES. Scheduled Medication Order 10/17/2013 10/18/2013 10/19/2013 0.9% NaCl infusion (COMPLETED) 1,000 mL/hr, Intravenous, BOLUS IV, 1 dose, On 10/19/13 at 1145 1202 ($ Given - Prov ider: Ludivina Villanueva RN)1304 (Rx Stopped - Provider: Ludivina Villanueva RN) ketorolac (TORADOL) injection 30 mg (COMPLETED) 30 mg, Intravenous, ONCE, 1 dose, On 10/19/13 at 1200, . WASTE DISPOSAL INSTRUCTIONS: Black Bin Disposal required. 1202 ($ Given - Prov ider: Ludivina Villanueva RN) documented in this encounter Care Teams Marketing Operations Consultant Relationship Specialty Start Date End Date None, [place] [address] PCP - General 10/19/13 documented as of this encounter
--- OUTSIDE RECORDS SUMMARY | 2024-11-17 14:25 | XMS_ITS | Encounter Summary ---
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 [address] [place] [address] Erroneous encounter-disregard Social History Tobacco Use Types Packs/Day Years [...] Encounters Date Type Department Care Team (Late Contact Info) Description 12/27/2024 1:00 PM TECHNICIAN SEMICONDUCTOR DEVELOPMENT Office Visit [facility] Weight Management Services [id number] [address] [place] [address] [phone] documented as of this encounter Visit Diagnoses Not on filedocumented in this encounter Care Teams Senior Asp Net Developer Relationship Specialty Start Date End Date Dorota Martinez MD [address] [place] [address] PCP - General 01/21/19 08/11/20 documented as of this encounter
--- OUTSIDE RECORDS SUMMARY | 2024-11-17 14:25 | XMS_ITS | Encounter Summary ---
Author Organization [facility] Address [address] [place] [address] Care Team Providers Care Diesel Electrician Name Role Phone Unavailable Primary Care Provider Unavailabl e Encounter Details Date Type Department Care Team (Latest Contact Info) Description 02/27/2017 Emergency Department Historic [facility] EMERGENCY DEPARTMENT [address] [place] [address] Charisse Leyva MD [facility] [place] [address] Discharge Disposition: Home or Self Care Social [...] Sign Reading Time Taken Comments Blood Pressure 144/103 02/28/2017 5:30 AM CDT Pulse 100 02/28/2017 5:30 AM CDT Temperature 36.7 ??C (98 ??F) 02/27/2017 9:23 PM CDT Respiratory Rate 23 02/28/2017 5:30 AM CDT Oxygen Saturation 100% 02/28/2017 5:30 AM CDT Inhaled Oxygen Concentration - - Weight 89.8 kg (198 lb) 02/27/2017 9:23 PM CDT Height 162.6 cm (5' 4 ) 02/27/2017 9:23 PM CDT Body Mass Index 33.99 02/27/2017 9:23 PM CDT documented in this encounter Progress Notes * Provider, Historical, MD - 02/28/2017 6:37 AM CDT Progress Notes Signed by Marisel Zee MPH on 02/28/2017 2:26 PM Author: Marisel Zee MPH Service: (none) Author Type: Community Bank Compliance Officer Date of Service: 02/28/2017 6:37 AM Filed: 02/28/2017 2:26 PM Note Type: Progress Notes Status: Signed Ruby Engineer: Marisel Zee MPH (Community Bank Compliance Officer) Patient called [facility] asking for assistance in scheduling a follow up appointment. Patient does not have a PCP, [facility] will connect patient to [facility] in [place] where patient lives. [facility] will communicate appointment information to the patient when available. АНДРЕЙ Peters [facility] [phone] documented in this encounter ED Notes * Charisse Leyva MD - 02/28/2017 12:13 AM CDT ED Provider Notes Signed by Charisse Leyva MD on 03/01/2017 6:56 AM Author: Charisse Leyva MD Service: Emergency Author Type: Physician Date of Service: 02/28/2017 12:13 AM Filed: 03/01/2017 6:56 AM Note Type: ED Provider Notes Status: Signed Ruby Engineer: Charisse Leyva MD (Physician) Resident Attestation I have performed an independent history and physical examination and discussed the patient's management with the resident. I agree with the findings, assessment and plan of care as documented by the resident : Interval History: Pt presents with suprapubic and goes bilaterally constant since monday and also bleeding but unsureif in urine or vaginal. Then started chest pain intermittent lasting 1 minute, sharp. Last Monday [facility] and then wit wipe on tp, then after it was in urine, and then clots and so went to hospital. Didn't do pelvic at that time, ct abdomen assuing is ok b/c put on bactrim. Was not having any pain at that time.from - twce had some spotting so used liner- but no tampon or period. Monday and not noted in urine but noted when wiping. occasionally will get blood after urinating when wiping only. Also started to get suprapubican radiates to the side- sore, bloating. bm a bit loose- was worse for 2-3 days after starting bactrim , not a bit better no formed. No true temp (highest 99). No blood in bowels or tp after bm. Monday night gets some sharp pain no radiation but into back , lasts a minute. No sob but it takes breath away. No swelling in legs. fhx- both sides with blood clots lmp february 07 or Put on bactrim one week ago for uti No fever, nausea Occasional anxiet- restlessness, palps, occ cp with pressure, hot Past Medical History: Diagnosis Date ??? Anxiety ??? Diabetes mellitus ??? Ovarian cyst Past Surgical History: Procedure Laterality Date ??? HX SECTION ??? OR LAP,CHOLECYSTECTOMY Exam: Vitals: 02/28/17 0300 02/28/17 0400 02/28/17 0430 02/28/17 0530 BP: 154/89 148/86 156/85 (!) 144/103 BP Location: Patient Position: Pulse: 103 98 95 100 Resp: 24 22 19 23 Temp: TempSrc: SpO2: 97% 99% 98% 100% Weight: Height: vss Cv:rrr, ttp of left chest Lungs:claer b/l Abd:soft nontender nondistneded pos bowel sounds Ext: moves all 4 Rectal - guaic neg, hemoroid nad Behavior: mild anxiety Gu: no lesions noted over urethra or outer vaginal area Pelvic per reisdent ED Course: Labs Reviewed URINALYSIS COMPLETE - Abnormal; Notable for the following: Result Value Glucose UA >1000 (*) Ketones UA Trace (*) Squamous Epithelial Cells UA 7 (*) Mucous UA Rare (*) All other components within normal limits CBC W/O DIFFERENTIAL - Abnormal; Notable for the following: Hemoglobin 11.6 (*) MCH 26.8 (*) MPV 9.0 (*) All other components within normal limits COMPREHENSIVE METABOLIC PANEL - Abnormal; Notable for the following: Creatinine 0.4 (*) Chloride 108 (*) Carbon Dioxide 19 (*) Glucose 263 (*) Albumin 3.0 (*) BUN/Creatinine Ratio 33 (*) A/G Ratio 0.8 (*) All other components within normal limits LIPASE - Normal D-DIMER,QUANTITATIVE - Normal POCT URINE - Normal CT CHEST PE PROTOCOL INCL ABD/PEL W CONTRAST Final Result IMPRESSION: 1. No CT evidence of pulmonary embolism. 2. No acute process identified in the abdomen or pelvis. 3. Multiple low-attenuation lesions in the kidneys some of which measures simple fluid attenuation representing cysts and others are higher than simple fluid attenuation. Renal sonogram would be helpful for further evaluation. Left message with the ED handy man that the prelim is available in Synapse. Dictated by Sergio Navas MD (presidential helicopter crew chief). This report was approved by Sergio Navas on 02/28/2017 11:[address] TRENTON Sanderson M.D. have personally reviewed and interpreted this examination/study. This report was electronically signed by TRENTON LUIS M.D. on 02/28/2017 3:29 PM . XR Chest PA and Lateral Final Result IMPRESSION: No acute pulmonary process. Dictated by Chin Aguilera MD (presidential helicopter crew chief). This report was approved by Chin Aguilera M.D. on 02/28/2017 9:[address] CHAYITO Sanderson M.D. have personally reviewed and interpreted this examination/study. This report was electronically signed by CHAYITO MCPHERSON M.D. on 02/28/2017 9:28 AM . No results found. EKG:.reviewed MDM: Problem list: as above DDx: pneumonia, anxiety, ptx, lessl ikely pe; abd pain- uti, cyst, dub Plan: iv, labs, ekg, cxr, re-eval need for further imaging. Clinical Impression: 1. Chest pain, unspecified 2. Abdominal pain, lower Consult No Procedure done at this time no Ultrasound done at this time No Please see resident note for further details. Francisca Leyva MD 03/01/2017 6:55 AM Charisse Leyva MD 03/01/17 0656 * Audrey Myers MD - 02/27/2017 11:42 PM CDT ED Provider Notes Signed by Audrey Myers MD on 02/28/2017 5:25 AM Author: Audrey Myers MD Service: Emergency Author Type: Resident Date of Service: 02/27/2017 11:42 PM Filed: 02/28/2017 5:25 AM Note Type: ED Provider Notes Status: Signed Ruby Engineer: Audrey Myers MD (Resident) Cosigner: Charisse Leyva MD at 03/03/2017 11:35 AM History Chief Complaint Patient presents with ??? Chest Pain Patient ambulatory to ED triage with C/O left sided chest pain that radiates to back. Patient reports taking bactrim for UTI and CP started after taking medication. Patient states BP has also been elevated. HPI Kylee Guo is a 31 y.o. female with hx of anxiety, DM, presents to ED for chest pain and abdominal pain. Chest pain x 1 week, midsternal, sharp, intermittent, lasts 1 min when it comes on, doesn'tradiate, nothing makes it better or worse. Abdominal pain is suprapubic, aching, radiates bilateralflanks, nothing makes it worse or better, never had this before. Has been bleeding down there, unable to differentiate whether it is from her vagina or urethra, blood clots, not due for her period right now; hx of tubal ligation. No fevers/vomiting/diarrhea. Also complains about urinary symptoms, ?difficulty vs pain; started a course of Bactrim on Monday. Past Medical History: Diagnosis Date ??? Anxiety ??? Diabetes mellitus ??? Ovarian cyst Past Surgical History: Procedure Laterality Date ??? HX SECTION ??? OR LAP,CHOLECYSTECTOMY No family history on file. Social History Substance Use Topics ??? Smoking status: Former Smoker ??? Smokeless tobacco: None ??? Alcohol use No Review of Systems Constitutional: Negative. HENT: Negative. Eyes: Negative. Respiratory: Negative. Negative for cough and shortness of breath. Cardiovascular: Positive for chest pain. Gastrointestinal: Positive for abdominal pain. Negative for blood in stool, diarrhea, nausea and vomiting. Genitourinary: Negative. Bleeding down there Musculoskeletal: Negative. Skin: Negative. Allergic/Immunologic: Negative for immunocompromised state. Neurological: Negative. Physical Exam Visit Vitals ??? BP 156/85 ??? Pulse 95 ??? Temp 98 ??F (36.7 ??C) (Oral) ??? Resp 19 ??? Ht 5' 4 (1.626 m) ??? Wt 198 lb (89.8 kg) ??? LMP 02/07/2017 ??? SpO2 98% ??? BMI 33.99 kg/m2 Physical Exam Constitutional: She is oriented to person, place, and time. She appears well- developed and well-nourished. No distress. HENT: Head: Normocephalic and atraumatic. Cardiovascular: Regular rhythm. taqchycardia Pulmonary/Chest: Effort normal and breath sounds normal. No respiratory distress. Abdominal: Soft. Bowel sounds are normal. She exhibits no distension. There is tenderness (suprapubic ). There is no rebound and no guarding. Genitourinary: Vagina normal. No vaginal discharge found. Musculoskeletal: She exhibits tenderness (bilateral cva tenderness). She exhibits no edema. Neurological: She is alert and oriented to person, place, and time. Skin: Skin is warm and dry. She is not diaphoretic. Nursing note and vitals reviewed. Labs Reviewed URINALYSIS COMPLETE - Abnormal; Notable for the following: Result Value Glucose UA >1000 (*) Ketones UA Trace (*) Squamous Epithelial Cells UA 7 (*) Mucous UA Rare (*) All other components within normal limits CBC W/O DIFFERENTIAL - Abnormal; Notable for the following: Hemoglobin 11.6 (*) MCH 26.8 (*) MPV 9.0 (*) All other components within normal limits COMPREHENSIVE METABOLIC PANEL - Abnormal; Notable for the following: Creatinine 0.4 (*) Chloride 108 (*) Carbon Dioxide 19 (*) Glucose 263 (*) Albumin 3.0 (*) BUN/Creatinine Ratio 33 (*) A/G Ratio 0.8 (*) All other components within normal limits LIPASE - Normal D-DIMER,QUANTITATIVE - Normal POCT URINE - Normal XR Chest PA and Lateral (Results Pending) CT CHEST PE PROTOCOL INCL ABD/PEL W CONTRAST (Results Pending) Medications NaCl bolus 0.9 % bolus 1,000 mL (0 mLs Intravenous Stopped 02/28/17 0125) ketorolac (TORADOL) injection 30 mg (30 mg Intravenous Given 02/28/17 0207) NaCl bolus 0.9 % bolus 1,000 mL (0 mLs Intravenous Stopped 02/28/17 0393) fentaNYL (SUBLIMAZE) injection 50 mcg (50 mcg Intravenous Given 02/28/17 8441) iohexol (OMNIPAQUE) 350 MG/ML injection 100 mL (100 mLs Intravenous Given 02/28/17 1251) ED Course NS bolus EKG sinus tachycardia UA with no infection Hgb normal D-dimer <0.27 ---> not ordering CT 3:02 AM Labs normal. Discussed CT, agreeable to rule out PE and abdominal process. 5:[address] evidence of pulmonary embolism. 2. No acute process identified in the abdomen or pelvis. 3. A few lesions are identified in the right kidney with density higher than simple fluid measuringup to 1.8 cm in the lower pole. Consider nonemergent renal ultrasound for further evaluation. Discussed results, homecare, and signs to return. Gave copy of CT scan results. ED Course Procedures MDM Gastritis vs PE vs UTI vs kidney stone vs cystitis vs other ED Final Diagnosis and Discharge information 1. Chest pain, unspecified 2. Abdominal pain, lower Scripts ED Discharge Orders Start Ordered 02/28/17 0000 famotidine (PEPCID) 20 MG tablet 2 TIMES DAILY 02/28/17 0524 Follow-up Follow-up Information Follow up with [facility] Specialty: Clinic or Group Practice Contact information: [address] [facility] [[email or web address]] [address] [facility] [address] Disposition hOME Audrey Myers MD Resident 02/28/17 0525 documented in this encounter Plan of Treatment Upcoming Encounters Date Type Department Care Team (Late st Contact Info) Description 12/27/2024 1:00 PM IT SENIOR SOFTWARE ENGINEER JAVA Office Visit [facility] Weight Management Services [address] [facility] [address] [place] [address] Chin Mcleod MD [address] [place] [address] [address] [place] [address] documented as of this encounter Procedures Procedure Name Priority Date/Time Associated Diagnosis Comments CT CHEST PE W ABD PELVIS W CONT STAT 02/28/2017 3:37 AM CDT XR CHEST 2VW STAT 02/28/2017 2:13 AM CDT COMPREHENSIVE METABOLIC PANEL STAT 02/28/2017 1:25 AM CDT HCG URINE QUALITATIVE - POCT (IP) [facility] Routine 02/28/2017 12:35 AM CDT URINALYSIS W/MICROSCOPIC NO CULTURE STAT 02/28/2017 12:33 AM CDT LIPASE BLOOD STAT 02/28/2017 12:29 AM CDT CBC W/O DIFFERENTIAL STAT 02/28/2017 12:29 AM CDT D-DIMER STAT 02/28/2017 12:29 AM CDT EKG 12-LEAD Routine 02/27/2017 12:00 AM CDT documented in this encounter Results * CT CHEST PE W ABD PELVIS [...] further evaluation. Left message with the ED handy man that the prelim is available in Synapse. Dictated by Sergio Navas MD (presidential helicopter crew chief). This report was approved ??by Sergio Navas [...] for furtherevaluation. Left message with the ED handy man that the prelim is available inSynapse. Dictated by Sergio Navas MD (presidential helicopter crew chief). This report was approved by Sergio Navas on 02/28/2017 11:[address] TRENTON Sanderson M.D. have personally reviewed and interpreted thisexamination/study. This report was electronically signed by TRENTON LUIS M.D. on 02/28/20173:29 PM . Charisse Autumn RUEDA CT ORDERABLES * XR CHEST 2VW (02/28/2017 2:13 AM CDT) Anatomical Region Laterality Modality Chest Other Impressions 02/28/2017 9:28 AM CDT IMPRESSION: No acute pulmonary process. Dictated by Chin Aguilera MD (presidential helicopter crew chief). This report was approved ??by Chin Aguilera [...] IMPRESSION: No acute pulmonary process. Dictated by hCin Aguilera MD (presidential helicopter crew chief). This report was approved by Chin Aguilera M.D. on 02/28/2017 9:18 AM. I, Dr. CHAYITO MCPHERSON M.D. have personally reviewed and interpreted thisexamination/study. This report was electronically signed by CHAYITO MCPHERSON M.D. on 02/28/20179:28 AM . Charisse Leyva MD DIAGNOSTIC IMAGING O RDERABLES * (ABNORMAL) COMPREHENSIVE METABOLIC PANEL (02/28/2017 1:25 AM CDT) BUN 13 7 - 26 mg/dL [facility] Creatinine 0.4(L) 0.6 - 1.2 mg/dL [facility] Sodium 139 136 - 145 mmol/L [facility] Potassium 3.8 3.5 - 4.5 mmol/L [facility] Chloride 108(H) 98 - 107 mmol/L [facility] CO2 19(L) 22 - 29 mmol/L [facility] Glucose 263(H) 70 - 115 mg/dL [facility] Calcium 8.6 8.4 - 10.2 mg/dL [facility] Protein Total 6.9 6.0 - 8.3 g/dL [facility] Albumin 3.0(L) 3.4 - 5.0 g/dL [facility] Bilirubin Total 0.2 0.2 - 1.2 mg/dL [facility] Alkaline Phosphatase 80 40 - 150 Units/L [facility] ALT 19 0 - 55 Units/L [facility] AST 15 5 - 34 Units/L [facility] Anion Gap 16 8 - 18 [facility] BUN/Creatinine Ratio 33(H) 7 - 23 [facility] Osmolality Calculated 297 270 - 300 mOsm/kg [facility] Albumin/Globulin Ratio 0.8(L) 1.1 - 2.3 [facility] eGFR >60 >60 mL/min/1.7 3 m2 [facility] Blood specimen (specimen) BLOOD SPECIMEN / Unknown 02/28/2017 1:25 AM CDT 02/28/2017 1:50 AM CDT Charisse Leyva MD LAB - CHEMISTRY MARCEL TEIXEIRA [facility] [place] Organization Address City/State/ZIP Co de Phone Number [address] [phone] * HCG URINE QUALITATIVE - POCT (IP) [facility] (02/28/2017 12:35 AM CDT) Test Urine negative [facility] Urine specimen (specimen) 02/28/2017 12:35 AM CDT Charisse Leyva MD LAB - POINT OF CARE ORDERABLES Performing Organization Address City/[facility]/ZIP Co de Phone Number [facility] * (ABNORMAL) URINALYSIS W/MICROSCOPIC NO CULTURE (02/28/2017 12:33 AM CDT) Color UA Yellow Straw, Yellow, Colorless, Light Yellow [facility] Clarity UA Clear Clear [facility] Specific [place] UA 1.030 1.001 - 1.030 [facility] pH UA 5.5 5.0 - 8.0 [facility] Protein UA 20 <=20 mg/dL [facility] Glucose UA >1000(A) Negative mg/dL [facility] Ketone UA Trace(A) Negative mg/dL [facility] Bilirubin UA Negative Negative mg/dL [facility] Blood UA Negative Negative [facility] Nitrite UA Negative Negative [facility] Leukocyte Esterase Negative Negative [facility] Urobilinogen UA <2.0 <2.0 mg/dL [facility] RBC UA 4 0 - 8 /HPF [facility] WBC UA 1 0 - 2 /HPF [facility] Squamous Epithelial Cells UA 7(H) 0 - 1 /HPF [facility] Mucus UA Rare(A) None /LPF [facility] Urine specimen (specimen) 02/28/2017 12:33 AM CDT 02/28/2017 12:53 AM CDT Charisse Leyva MD LAB - URINALYSIS ORD ERABLES [address] [phone] * LIPASE BLOOD (02/28/2017 12:29 AM CDT) Lipase 38 8 - 78 Units/L [facility] Blood specimen (specimen) BLOOD SPECIMEN / Unknown 02/28/2017 12:29 AM CDT 02/28/2017 12:52 AM CDT Charisse Leyva MD LAB - CHEMISTRY ORDE [place] Performing Organization Address [facility]/ZIP Co de Phone Number [address] [phone] * (ABNORMAL) CBC W/O DIFFERENTIAL (02/28/2017 12:29 AM CDT) WBC 7.8 3.5 - 10.5 10? 3 /uL [facility] RBC 4.33 3.90 - 5.00 10? 6 /uL [facility] Hemoglobin 11.6(L) 12.0 - 15.5 g/dL [facility] Hematocrit 35.4 35.0 - 45.0 % [facility] MCV 81.8 81.0 - 97.0 fL [facility] MCH 26.8(L) 28.0 - 34.0 pg [facility] MCHC 32.8 32.0 - 36.0 g/dL [facility] Platelet Count 250 150 - 400 10? 3 /uL [facility] RDW-SD 41.6 36.0 - 50.0 fL [facility] RDW-CV 13.9 11.2 - 14.8 % [facility] MPV 9.0(L) 9.3 - 12.8 fL [facility] nRBC Absolute 0.00 0 10? 3 /uL [facility] nRBC Auto 0.0 0 /100 WBC [facility] Blood specimen (specimen) BLOOD SPECIMEN / Unknown 02/28/2017 12:29 AM CDT 02/28/2017 12:52 AM CDT Charisse Leyva MD LAB - HEMATOLOGY ORD ERABLES [address] [phone] * D-DIMER (02/28/2017 12:29 AM CDT) [facility] D-Dimer Quantitative <0.27 <=0.50 mcg/mL [facility] Comment: In the absence of clinical symptoms, [...] Leyva MD LAB - COAGULATION OR DERABLES [facility] [address] [place] [address] * EKG 12-LEAD (02/27/2017 12:00 AM CDT) EKG [facility] Comment: Exam Date/Time: ?? Feb 27 [...] available Confirmed by MD Pao, Hanane ([id number]), market editor CHRISTINA HASSAN ([id number]) on 03/06/2017 7:00:51 PM Referred By: REFERRING NO ? Confirmed By:Hanane Cedeno MD 02/27/2017 Charisse Leyva MD ECG ORDERABLES [facility] documented in this encounter Visit Diagnoses Diagnosis Chest pain Lower abdominal pain Abdominal pain, other specified site documented in this encounter
--- OUTSIDE RECORDS SUMMARY | 2024-11-17 14:25 | XMS_ITS | Encounter Summary ---
Author Organization [facility] Address [address] [place] [address] Care Team Providers Care Baseball Sewer Hand Name Role Phone Dorota Martinez MD Primary Care Provider [phone] Reason for Visit * Reason Onset Date Comments Appointment 11/21/2019 Encounter Details Date Type Department Care Team (Late st Contact Info) Description 11/21/2019 Telephone [facility] [address] [place] [address] Dinorah Martinez, RN Appointment Social History Tobacco Use Types Packs/Day [...] encounter Miscellaneous Notes * Telephone Encounter - Dinorah Martinez RN - 11/21/2019 1:56 PM CST Pt has new pt appt tomorrow. Phoned pt. She states she hasnt Had imaging in a while, but she has had imaging at both [facility] and at [facility] in [place], [place]. Phoned both places and staff stated they can push images to [facility] electronically. Both stated theywould do so today. Faxed requests to both of the above and also requested copies of reports be faxed. STITCH COAT JOINER documented in this encounter Plan of Treatment Upcoming Encounters Date Type Department Care Team (Late st Contact Info) Description 12/27/2024 1:00 PM LOCKSTITCH COAT JOINER Office Visit [facility] Weight Management Services [address] [facility] [address] [place] [address] [place] [address] [facility] [address] [place] [phone] documented as of this encounter Visit Diagnoses Not on filedocumented in this encounter Care Teams Baseball Sewer Hand Relationship Specialty Start Date End Date Dorota Martinez MD [address] [place] [phone] PCP - General 01/21/19 08/11/20 documented as of this encounter
--- OUTSIDE RECORDS SUMMARY | 2024-11-17 14:25 | XMS_ITS | Encounter Summary ---
Author Organization [facility] Address [address] [place] [address] Care Team Providers Care Information Assurance Officer Name Role Phone Dorota Martinez MD Primary Care Provider [phone] Reason for Referral * Radiology Services (Routine) - Closed Specialty Diagnoses / Procedures Referred By Contac t Referred To Contact MRI Diagnoses Renal cyst Procedures MRI KIDNEYS WWO CONTRAST MRI KIDNEYS WWO CONTRAST Trevon Monique MD [address] [place] [address] [facility] Mri [address] [place] [address] Referral ID Status Reason Start Date Expiration Date Visits Re quested Visits Authorized [id number] Closed 08/12/2020 08/12/2021 1 1 Reason for Visit * Reason Comments Follow-up RENAL CYST Encounter Details Date Type Department Care Team (Late st Contact Info) Description 08/12/2020 12:45 PM CDT Office Visit [facility] Urology [address] [place] [address] Trevon Monique MD [address] [place] [address] Renal cyst (Primary Dx); Renal mass Social History Tobacco Use Types Packs/Day Years [...] PM CDT documented as of this encounter Last Filed Vital Signs Vital Sign Reading Time Taken Comments Blood Pressure 157/96 08/12/2020 12:45 PM CDT Pulse 93 08/12/2020 12:45 PM CDT Temperature 36.6 ??C (97.9 ??F) 08/12/2020 12:45 PM C DT Respiratory Rate - - Oxygen Saturation 100% 08/12/2020 12:45 PM CDT Inhaled Oxygen Concentration - - Weight 92.1 kg (203 lb) 08/12/2020 12:45 PM CDT Height 162.6 cm (5' 4 ) 08/12/2020 12:45 PM CDT Body Mass Index 34.84 08/12/2020 12:45 PM CDT documented in this encounter Progress Notes * Jacinta Sotelo MD - 08/12/2020 1:03 PM CDT [facility] Division of Urologic Surgery Trevon Monique MD Date of Visit: 08/12/2020 Patient Name: Kylee Guo : 1985 Medical Record: [id number] Contact (home) Age: [age] year old Sex: female Referring Physician: No referring provider defined for this encounter. Chief Complaint: Chief Complaint Patient presents with ??? Follow-up RENAL CYST History of Present Illness: The patient is a 35 year old female being seen today for follow up of renal cysts and concern of possible mass. Patient has history of simple renal cysts and reportedly diagnosed with PCKD and CKD at some point.US and CT from OSH were reportedly read as having a left renal mass although we do not have those reads and per our read all cysts appeared simple. Thus we elected to obtain renal MRI and she now returns for results. She has been doing well since last visit. No significant flank pain, no hematuria, no other new concerns. MRI reveals simple cysts and a possible hemorrhagic cyst on the right. Past Medical History; Past Medical History: Diagnosis Date ??? Bipolar I disorder, most recent episode (or current) unspecified ??? Diabetes ??? Empty sella ??? Generalized anxiety disorder ??? Heart problem ??? High blood pressure ??? Idiopathic intracranial hypertension ??? Kidney disease ??? Ovarian cyst ??? PCOD (polycystic ovarian disease) ??? Polycystic kidney disease Past Surgical History: Past Surgical History: Procedure Laterality Date ??? Section x2 ??? Cholecystectomy ??? IR GALLBLADDER DRAINAGE ??? TUBAL LIGATION, LAPAROSCOPIC Current Medications: Current Outpatient Medications Medication Sig Dispense Refill ??? losartan (COZAAR) 100 MG tablet Take 100 mg by mouth once daily ??? metFORMIN (GLUCOPHAGE) 500 MG tablet Take 500 mg by mouth 2 times daily with morning and evening meal. Has been off meds x2 years; usually controlls fairly well with diet ??? rosuvastatin (CRESTOR) 10 MG tablet TAKE 1 TABLET BY MOUTH ONCE DAILY IN THE EVENING ??? TRESIBA FLEXTOUCH 200 UNIT/ML pen INJECT 64 UNITS SUBCUTANEOUSLY ONCE DAILY AT BEDTIME No current facility-administered medications for this visit. Facility-Administered Medications Ordered in Other Visits Medication Dose Route Frequency Provider Last Rate Last Dose ??? *Hold/Avoid Medication Other 0800 and 1999 Trevon Monique MD ??? gadoterate meglumine (DOTAREM) injection Intravenous Contrast - Once Trevon Monique MD 17mL at 08/12/20 1145 Allergies; Compazine [prochlorperazine]; Ondansetron; Reglan [metoclopramide]; and Promethazine Family History: Family History Problem Relation Name Age of Onset ??? Diabetes - Type 2 Father ??? Heart Failure Father ??? High Blood Pressure Father ??? Seizures Sister ??? Cancer Maternal Grandmother ??? High Blood Pressure Paternal Grandfather ??? Diabetes - Type 2 Paternal Grandfather Social History: Social History Socioeconomic History ??? Marital status: Spouse name: Not on file ??? Number of children: Not on file ??? Years of education: Not on file ??? Highest education level: Not on file Occupational History ??? Not on file Social Needs ??? Financial resource strain: Not on file ??? Food insecurity Worry: Not on file Inability: Not on file ??? Transportation needs Medical: Not on file Non-medical: Not on file Tobacco Use ??? Smoking status: Former Smoker Packs/day: 0.25 Last attempt to quit: 06/30/2020 Years since quittin.1 ??? Smokeless tobacco: Never Used Substance and Sexual Activity ??? Alcohol use: No ??? Drug use: Not Currently Types: Marijuana ??? Sexual activity: Not on file Lifestyle ??? Physical activity Days per week: Not on file Minutes per session: Not on file ??? Stress: Not on file Relationships ??? Social connections Talks on phone: Not on file Gets together: Not on file Attends hindu service: Not on file Active member of club or organization: Not on file Attends meetings of clubs or organizations: Not on file Relationship status: Not on file ??? Intimate partner violence Fear of current or ex partner: Not on file Emotionally abused: Not on file Physically abused: Not on file Forced sexual activity: Not on file Other Topics Concern ??? Special Diet Not Asked Social History Narrative ??? Not on file Review of Systems: General: Negative Skin: Negative Eyes: Negative Ears/nose/mouth: Negative Lungs:Negative Heart:Negative Gastrointestinal: neg Genitourinary: neg Musculoskeletal: Negative Nervous system: Negative Reproductive system: Negative Hematologic: Negative Lymphatic: Negative Endocrine: Negative Physical Exam: Vital Signs: BP 157/96 Pulse 93 Temp 97.9 ??F (36.6 ??C) Ht 5' 4 (1.626 m) Wt 203 lb (92.1 kg) SpO2 100% BMI 34.84 kg/m2 General: alert, NAD HEENT: NCAT Cardio: RRR Pulm: normal effort on room air Abd: soft, non distended, non tender : no CVA tenderness MSK: no edema or cyanosis Neuro: AOx4 Laboratory Studies: Lab results smartLinks are not currently available MRI renal 08/12/20: Comparison is made to CT abdomen and pelvis 10/21/2013. No other imaging is available. ?? The kidneys appear grossly normal in size [...] are normal. The proximal ureters are unremarkable. ?? The visualized liver, spleen, pancreas and adrenal glands are normal. ?? The visualized stomach and large and small bowel appear grossly unremarkable. ?? There are complex likely ovarian cysts within the left adnexa, seen best on the coronal T2-weighted series, see images 16 through 22. ?? The aorta and its branches enhance normally. No adenopathy is seen. ?? DIAGNOSIS: ?? Multiple T2 hyperintense cysts without enhancement. There is a likely T1 hyperintense hemorrhagic cyst in the inferior pole of the right kidney, somewhat poorly characterized or visualized on postcontrast imaging. ?? Complex left ovarian cysts are present. Follow-up pelvic ultrasound is recommended. US 2019 on synapse: no radiology read available, appears to have bilateral simple cysts ?? CT 02/2019 w w/o a/p: no radiology read available. Appears simple bilateral renal cysts ?? Diagnosis: 35 yo F with bilateral simple renal cysts and right hemorrhagic cyst, prior question of renal mass on US, not present on MRI today Recommendations: Discussed that these all appear benign. Due to prior ambiguity, will monitor with a repeat MRI in 1year, if stable without concern at that time can likely stop annual surveillance. - f/u in 1 year with MRI kidneys Jacinta Sotelo MD 08/12/2020 1:03 PM Associated attestation - Trevon Monique MD - 08/12/2020 2:14 PM CDT Patient seen and examined with the provider. Please see note for further details. I confirm the history, exam, assessment and plan. In addition I note: Subjective: Denies flank pain, hematuria, dysuria, or pyuria. Objective: MRI with multiple bilateral simple appearing cysts Assessment/Plan: 1 year with MRI 08/12/2020 2:13 PM Trevon Monique MD documented in this encounter Plan of Treatment Upcoming Encounters Date Type Department Care Team (Late st Contact Info) Description 12/27/2024 1:00 PM SOFTWARE INSTALLER Office Visit [facility] Weight Management Services [address], [address] [place] [address] [place] [address] [facility] [address] [place] [address] documented as of this encounter Results * MRI KIDNEYS WWO [...] cysts are new since the CT in 2013. ??On the MRI from 05/09/2020 there was [...] 12:45 PM Trevon Monique MD MR ORDERABLES documented in this encounter Visit Diagnoses Diagnosis Renal cyst- Primary Unspecified congenital cystic kidney disease Renal mass Unspecified disorder of kidney and ureter Renal cyst Unspecified congenital cystic kidney disease documented in this encounter Care Teams Information Assurance Officer Relationship Specialty Start Date End Date Dorota Martinez MD [address] [place] [address] PCP - General 08/12/20 11/27/20 documented as of this encounter
--- OUTSIDE RECORDS SUMMARY | 2024-11-17 14:25 | XMS_ITS | CONTINUITY OF CARE DOCUMENT ---
Author Name padmini, padmini Address Unknown Organization [facility] Address [address] [place] [address] Phone [phone] Care Team Providers Care Bait Packer Name Role Phone Chitra RUEDA, Lucio Unavailable CHITRA RUEDA, MIGUEL Unavailable ABELINO RUEDA, FABIÁN Unavailable [phone] PROBLEMS Condition Status Date Provider Notes Migraine active Lucio Herron MD Obesity active Lucio Herron MD Smoker active Lucio Herron MD Polycystic ovarian syndrome active Lucio roberts MD Diabetes mellitus active Lucio Herron MD CKD stage 2 (gfr 60-89), PCKD active Lucio Herron MD Bipolar disorder active Lucio Herron MD Anxiety disorder active Lucio Herron MD Hyperlipidemia active Lucio Herron MD HTN essential active Lucio Herron MD INSURANCE PROVIDERS Payer name Policy type / Coverage type [place] red libertarian ID [facility] [id number]
--- OUTSIDE RECORDS SUMMARY | 2024-11-17 14:25 | XMS_ITS | Encounter Summary ---
Author Organization [facility] Address [address] [place] [address] Care Team Providers Care Rural Route Carrier Name Role Phone Azam Jackson APRN-VAN CDL DRIVER Primary Care Provide r Reason for Visit * Reason Comments Establish Care renal cysts Encounter Details Date Type Department Care Team (Late st Contact Info) Description 08/11/2021 12:45 PM CDT Office Visit [facility] Urology [address] [place] [address] Trevon Monique MD [address] [place] [address] Polycystic kidney disease (Primary Dx) Social History Tobacco Use Types [...] Pulse 116 08/11/2021 12:49 PM CDT Temperature - - Respiratory Rate - - Oxygen Saturation 100% 08/11/2021 12:49 PM CDT Inhaled Oxygen Concentration - - Weight 89.4 kg (197 lb) 08/11/2021 12:49 PM CDT Height 162.6 cm (5' 4 ) 08/11/2021 12:49 PM CDT Body Mass Index 33.81 08/11/2021 12:49 PM CDT documented in this encounter Progress Notes * Steve Garcia MD - 08/11/2021 2:46 PM CDT [facility] Division of Urologic Surgery Trevon Monique MD Date of Visit: 08/11/2021 Patient Name: Kylee Guo Medical Record: [id number] : 1985 Age: [age] year old Sex: female Chief Complaint: renal cyst History of Present Illness: The patient is a 36 year old female seen today for follow up of renal cysts and concern of possiblemass. Patient has history of simple renal cysts and reportedly diagnosed with PCKD and CKD at some point.US and CT from OSH were reportedly read as having a left renal mass although we do not have those reads and per our read all cysts appeared simple. Thus we elected to obtain renal MRI and she now returns for results. Update: Patient presents here today following repeat MRI which demonstrating stable renal cysts. She has occasional right flank pain that wraps around her lower abdomen that is intermittent. She endorses some dark urine at times but denies gross hematuria. She drinks a lot of water. States that she was recently diagnosed with functional neurologic disorder and has issues related to that. No episodes of UTI or pyelo. Review of Systems Constitutional: Negative for fatigue, weight loss, fevers, chills, anorexia. Respiratory: Negative for shortness of breath, acute cough, asthma, wheezing Cardiovascular: Negative for chest pain, cyanosis Gastrointestinal: Negative for nausea, vomiting, hemetemesis, hematochezia, abdominal pain, constipation, diarrhea Genitourinary: Negative for dysuria, hematuria Skin: Negative for rash Hematologic/lymphatic: Negative for easy bruising Neurological: Negative for headaches, seizures Past Medical History: Past Medical History: Diagnosis Date ??? Bipolar [...] IR GALLBLADDER DRAINAGE ??? TUBAL LIGATION, LAPAROSCOPIC Family History: Family History Problem Relation Name Age of Onset ??? Diabetes - Type 2 Father ??? Heart Failure Father ??? High Blood Pressure Father ??? Seizures Sister ??? Cancer Maternal Grandmother ??? High Blood Pressure Paternal Grandfather ??? Diabetes - Type 2 Paternal Grandfather Social History: Social History Occupational History ??? Not on file Tobacco Use ??? Smoking status: Former Smoker Packs/day: 0.25 Quit date: 06/30/2020 Years since quittin.1 ??? Smokeless tobacco: Never Used Vaping Use ??? Vaping Use: Never used Substance and Sexual Activity ??? Alcohol use: No ??? Drug use: Not Currently Types: Marijuana ??? Sexual activity: Not on file Current medications: Current Outpatient Medications on File Prior to Visit Medication Sig Dispense Refill ??? aspirin EC (ECOTRIN) 81 MG tablet ??? buPROPion XL 24hr (WELLBUTRIN-XL) 150 MG tablet TAKE 1 TABLET BY MOUTH ONCE DAILY IN THE MORNING ??? calcitriol (ROCALTROL) 0.25 MCG capsule calcitriol 0.25 mcg capsule ??? clorazepate (TRANXENE) 7.5 MG tablet Take 7.5 mg by mouth 3 times daily ??? Continuous Blood Gluc Sensor (FREESTYLE AYDEE 14 DAY SENSOR) MISC ??? ergocalciferol (DRISDOL) 1.25 MG (14751 UT) capsule Vitamin D2 1,250 mcg (50,000 unit) capsule ??? FARXIGA 10 MG tablet TAKE 1 TABLET BY MOUTH ONCE DAILY IN THE MORNING FOR 90 DAYS ??? fenofibrate (LOFIBRA) 160 MG tablet TAKE 1 TABLET BY MOUTH ONCE DAILY AT BEDTIME FOR 30 DAYS ??? fluticasone propionate (FLONASE) 50 MCG/ACT nasal spray fluticasone propionate 50 mcg/actuationnasal spray,suspension ??? glimepiride (AMARYL) 1 MG tablet TAKE 2 TABLETS BY MOUTH TWICE DAILY BEFORE MEAL(S) ??? HYDROcodone-acetaminophen (NORCO) 5-325 MG tablet hydrocodone 5 mg- acetaminophen 325 mg tablet ??? LORazepam (ATIVAN) 1 MG tablet TAKE 1 TABLET BY MOUTH PRE PROCEDURE ONCE FOR 1 DOSE ??? losartan-hydroCHLOROthiazide (HYZAAR) 100-25 MG tablet Take 1 tablet by mouth once daily ??? metFORMIN (GLUCOPHAGE) 500 MG tablet Take 500 mg by mouth 2 times daily with morning and evening meal. Has been off meds x2 years; usually controlls fairly well with diet ??? naltrexone (REVIA) 50 MG tablet every 24 hours ??? ONETOUCH ULTRA test strip USE A TEST STRIP TO TEST BLOOD SUGAR 3 TO 4 TIMES DAILY BEFORE MEALS ??? rosuvastatin (CRESTOR) 10 MG tablet TAKE 1 TABLET BY MOUTH ONCE DAILY IN THE EVENING ??? sertraline (ZOLOFT) 100 MG tablet sertraline 100 mg tablet TAKE 1 TABLET BY MOUTH ONCE DAILY FOR 30 DAYS ??? traZODone (DESYREL) 100 MG tablet trazodone 100 mg tablet TAKE 1 TABLET BY MOUTH EVERY DAY AT BEDTIME NEEDED FOR 30 DAYS ??? TRESIBA FLEXTOUCH 200 UNIT/ML pen INJECT 64 UNITS SUBCUTANEOUSLY ONCE DAILY AT BEDTIME ??? TRULICITY 3 MG/0.5ML injection INJECT 1 SUB Q ONCE A WEEK IN THE MORNING ??? VASCEPA 0.5 g CAPS Current Facility-Administered Medications on File Prior to Visit Medication Dose Route Frequency Provider Last Rate Last Admin ??? *Hold/Avoid Medication Other 799 and 1999 Trevon Monique MD ??? gadoterate meglumine (Dotarem) injection Intravenous Contrast - Once Trevon Monique MD 20mL at 08/11/21 1210 Allergies: Allergies Allergen Reactions ??? Compazine [Prochlorperazine] ??? Ondansetron ??? Reglan [Metoclopramide] ??? Promethazine Other Physical Examination: BP 148/90 Pulse (!) 116 Ht 5' 4 (1.626 m) Wt 197 lb (89.4 kg) SpO2 100% BMI 33.81 kg/m?? Body mass index is 33.81 kg/m??. General: NAD Eyes: conjunctiva clear ENT: MMM, oropharynx clear Lungs: No increased respiratory effort Heart: regular rate and rhythm Abdomen: soft, non-distended, non tender : deferred Extremities: No edema, moves all four extremities Neuro: awake, alert Labs: Recent Labs Component Name 11/28/20 1850 02/28/17 0125 10/21/13 1246 10/19/13 1157 10/19/13 1157 SODIUM - - 139 - 139 POTASSIUM 3.8 3.8 3.9 - 4.0 CHLORIDE - - 105 - 105 CO2 22 19* 26 - 24 BUN 17 13 17 - 10 CREATININE 0.7 0.4* 0.44* - 0.59 GLUCOSE 85 263* 147* - 266* CALCIUM 9.8 8.6 9.1 - 8.4* - = values in this interval not displayed. Recent Labs Component Name 11/28/20 1850 02/28/17 0029 10/21/13 1246 WBC 11.4* - 10.5 RBC 4.22 - 4.87 HGB 11.8* - 13.5 HCT 35.7 - 39.6 MCV 84.6 - 81.3 MCH 28.0 - 27.7 MCHC 33.1 - 34.1 RDW 13.8 - - PLTCOUNT 314 - 241 LYMPHPCT - - 27.7 BASOPHILPCT - - 0.2 - = values in this interval not displayed. Micro: No results found for this or any previous visit (from the past 72 hour(s)). Pathology: none Imaging: MRI Kidneys wwo contrast 08/11/21 1. Incidental proteinaceous cyst in the right lower renal pole. The remaining bilateral renal cysts are simple. No renal mass. 2. Large cluster of left pelvic cysts most likely arising from the ovary, new since 2020. If not previously evaluated, recommend pelvic ultrasound. Assessment Kylee Guo is a 36 year old female with hx of multiple simple renal cysts bilaterally that are stable. Recommendations - From standpoint, these cysts appear benign. No surgical intervention required. Can follow up PRN. Would recommend periodic imaging of kidneys to ensure that they are not growing which can be followed by lean coach or PCP. Steve Garcia MD Urology Resident 08/11/2021 2:46 PM Associated attestation - Trevon Monique MD - 08/11/2021 2:56 PM CDT I have verified the documentation of the provider including all history, exam, and medical decision-making details. I have personally performed a physical exam and have personally reviewed the data (including lab and radiology) to support my medical decision-making as outlined in the note. I arrive independently at the same conclusion. In addition I note: Subjective: Notes chronic back pain and recent psych issues. Denies hematuria. Objective: MRI 08/11/21 - bilateral benign small renal cysts Assessment/Plan: May follow up PRN Cysts without change Recommend renal US q2-4 years with nephrology or PCP 08/11/2021 2:55 PM Trevon Monique MD documented in this encounter Plan of Treatment Upcoming Encounters Date Type Department Care Team (Late st Contact Info) Description 12/27/2024 1:00 PM TECHNOLOGY INTERN Office Visit [facility] Weight Management Services [id number] [place] [address] [place] [address] [id number] documented as of this encounter Visit Diagnoses Diagnosis Polycystic kidney disease- Primary Polycystic kidney, unspecified type documented in this encounter Care Teams Rural Route Carrier Relationship Specialty Start Date End Date Azam Jackson, TELECOM FIELD TECHNICIAN-VAN CDL DRIVER [address] [facility] [place] [place] [address] PCP - General Nurse Practitioner Gerontology 11/28/20 documented as of this encounter
--- OUTSIDE RECORDS SUMMARY | 2024-11-17 14:25 | XMS_ITS | Encounter Summary ---
Author Organization [facility] Address [address] [place] [address] Care Team Providers Care Case Resource Manager Name Role Phone Dorota Martinez MD Primary Care Provider [phone] Encounter Details Date Type Department Care Team (Latest Contact Info) Description 08/12/2020 Travel Social History Tobacco Use Types Packs/Day Years [...] PM CDT documented as of this encounter Plan of Treatment Upcoming Encounters Date Type Department Care Team (Late st Contact Info) Description 12/27/2024 1:00 PM INFORMATION CODER Office Visit [facility] Weight Management Services [address] [facility] [address] [place] [address] [place] [address] [facility] [address] [place] [address] documented as of this encounter Visit Diagnoses Not on filedocumented in this encounter Care Teams Case Resource Manager Relationship Specialty Start Date End Date Dorota Martinez MD [address] [place] [address] PCP - General 08/12/20 11/27/20 documented as of this encounter
--- OUTSIDE RECORDS SUMMARY | 2024-11-17 14:25 | XMS_ITS | Encounter Summary ---
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 Pt is awake and oriented when she arrives by ambulance, but is having full body tremors and stuttering when she speaks. Pt states I was not given a script for Keppra when I was discharged from [place] . Encounter Details Date Type Department Care Team (Late st Contact Info) Description 11/28/2020 11:14 AM [facility] - 11/28/2020 10:02 PM [facility] Emergency [facility] EMERGENCY DEPARTMENT [address] [place] [address] [phone] Tomy Jeffrey MD [address] [place] [address] OF [place]ERG[place] [phone] Dario Aponte MD [address] [place] [address] OF [place]ERGENCY [place] [address] Seizure (HCC); Stutter Discharge Disposition: Home or Self Care Social [...] Sign Reading Time Taken Comments Blood Pressure 135/77 11/28/2020 10:01 PM [facility] Pulse 85 11/28/2020 10:01 PM [facility] Temperature 36.8 ??C (98.2 ??F) 11/28/2020 10:[address] Respiratory Rate 17 11/28/2020 10:01 PM [facility] Oxygen Saturation 98% 11/28/2020 10:01 PM [facility] Inhaled Oxygen Concentration - - Weight 95.7 kg (211 lb) 11/28/2020 11:35 AM [facility] Height 162.6 cm (5' 4 ) 11/28/2020 11:35 AM [facility] Body Mass Index 36.22 11/28/2020 11:35 AM [facility] documented in this encounter Discharge Instructions * Discharge Instructions* Chiqui Shaffer MD - 11/28/2020 9:28 PM [facility] Please follow up with the neurology and neuropsychology teams, as well as your primary care doctor for a sleep study. T CUTTER * Attachments The following attachments cannot be sent through Care Everywhere. * Nonepileptic Seizures (AfterCare(R) Instructions(ER/ED)) (Indian) documented in this encounter Medications at Time of Discharge Medication Sig Dispensed Refills Start Date End Date clorazepate (TRANXENE) 7.5 MG tablet Take 7.5 mg by mouth 3 times daily 11/27/2020 LORazepam (ATIVAN) 1 MG tablet TAKE 1 [...] 05/31/2020 08/11/2021 documented as of this encounter Consult Notes * Nick Sky MD - 11/28/2020 6:14 PM CST Neurology Consult Note Patient: Kylee Guo Age: [age] year old Admission Date and Time: 11/28/2020 Reason for consult/Chief Complaint: Possible seizure like episodes History of Presenting Illness: Kylee Guo is a 35 year old female with hx of HTN, DM, depression, CAD, IIH, presenting for possible seizure spells. Last 2 weeks patient has had several episodes - 14 per patient, sometimes multiple in a day of generalized shaking of all extremities, tongue protrusion, loss of bladder x1, sometimes uprolling of eyes,maintained awareness, never passed out . Usually wakes up from sleep, is flushed and sweaty and will have an episode. Can last 5-30min. No confusion post episodes. Sometimes will be weak on leftor right or alternate. No recent stress other than concern that she hasnt gotten her cardiac cath that was scheduled for CAD. Lives with teenage children and is independent with ADLs. Used to work for [employer] until 2 weeks ago. No concerns of HASTINGS exacerbation today. Also, associated with onset of episodes, is stuttering speech that started 2 weeks ago, worse after seizure spell , waxes and wanes. No speech issues prior to that. Has not had normal speech anytimein 2 weeks. Admitted and discharged from [place] few days ago for similar presentation - worked up with EEG - negative and diagnosed with pseudoseizures - unable to verify in chart. Not started on AEDs IIH - did not tolerate PO meds - ?Diamoz - not sure, Neurologists are considering shunt per patient. No PMH of TBI/stroke or seizures Fam hx: epilepsy in mother and sister Past Medical History No history on file. Past Medical History: Diagnosis Date ??? Bipolar I disorder, most recent episode (or current) unspecified ??? Diabetes ??? Empty sella ??? Generalized anxiety disorder ??? Heart problem ??? High blood pressure ??? Idiopathic intracranial hypertension ??? Kidney disease ??? Ovarian cyst ??? PCOD (polycystic ovarian disease) ??? Polycystic kidney disease Past Surgical History: Procedure Laterality Date ??? Section x2 ??? Cholecystectomy ??? IR GALLBLADDER DRAINAGE ??? TUBAL LIGATION, LAPAROSCOPIC Allergies Allergies Allergen Reactions ??? Compazine [Prochlorperazine] ??? Ondansetron ??? Reglan [Metoclopramide] ??? Promethazine Other Family History Family History Problem Relation Name Age of Onset ??? Diabetes - Type 2 Father ??? Heart Failure Father ??? High Blood Pressure Father ??? Seizures Sister ??? Cancer Maternal Grandmother ??? High Blood Pressure Paternal Grandfather ??? Diabetes - Type 2 Paternal Grandfather Social History Social History Social History Narrative ??? Not on file Review of Systems General - Denies changes in weight or appetite ENT - Denies dental or swallowing difficulties Cardiac - Denies chest pain or palpitations Pulmonary - Denies shortness of breath, cough, or sputum production Gastrointestinal - Denies abdominal pain or changes in bowel habits Genitourinary - Denies changes in bladder habits Endocrine - Denies heat or cold intolerance Musculoskeletal - Denies myalgias or arthralgias Hematological - Denies history of malignancy or blood abnormalities Neurological - See HPI Objective: BP 144/88 Pulse 97 Temp 97.7 ??F (36.5 ??C) (Oral) Resp 20 Ht 5' 4 Wt 211 lb SpO2 100% BMI 36.22 kg/m2 Temp (30hrs) Max:97.7 ??F (36.5 ??C) Body mass index is 36.22 kg/m??. Exam: General: Con - NAD, afebrile Heent - NCAT, MMM, anicteric Neck - No JVD, LAD, trachea midline CV - RRR for age, normal s1/s2, no m/r/g Pulm - CTAB, no w/r/r Abd - BS+, soft, NTND Ext: No c/c/e, 2+ dpp, normal ROM Cortical Function Mental Status Awake, alert, follows commands Orientation Person, place, time, and situation Language Fluency intact, comprehension intact, repetition intact Visual Guerra Intact bilaterally to confrontation Neglect No visual neglect noted, no tactile neglect noted Cranial Nerves II Pupils 4 mm and bilaterally reactive to light. Fundoscopic exam not performed. VIII Hearing is intact bilaterally to finger rub. III/IV/ Extraocular muscles intact. No diplopia, ptosis, nystagmus or convergence abnormalities noted. IX/X Palate elevated symmetrically without phonation abnormalities noted. V Facial sensation symmetric to light touch and intact bilaterally. Corneal reflex not examined. XIHead turning and shoulder shrug are intact. VII No facial palsy noted. XII Tongue is midline with normal movements and no atrophy noted. Motor Function Movement No abnormalities noted Bulk No abnormalities noted Tone No abnormalities noted Some effort dependence Proximal Upper Distal Upper Proximal Lower Distal Lower Right 5/5 5/5 5/5 5/5 Left 5/5 5/5 5/5 5/5 Muscle Stretch Reflexes BI TRI BR PAT ACH TOES Right 2 2 2 2 2 Down Left 2 2 2 2 2 Down Sensory Light Touch Symmetric and intact bilaterally Noxious Stimuli Symmetric and intact bilaterally Temperature Not tested Pallesthesia Not tested Cerebellar FNF RANDA HKS Right Intact Deferred Intact Left Intact Deferred Intact Gait Deferred Labs: No results found for this or any previous visit (from the past 24 hour(s)). MRI from 04/2020 - partially empty sella, otherwise unremarkable. Assessment and Recommendations: 35 year old presenting for concerns of seizure spells . Her description is not consistent with clinical seizures. Maintained awareness and description is consistent with pseudoseizures. Per hx, patient has already been diagnosed at another hospital with the same after EEG. We agree with this diagnosis. Her exam is non focal and reassuring. The stuttering speech is also most likely functional. Recommendations: - Could benefit from Neuropsychology evaluation - Can follow up with PCP and consider Neurology as outpatient if deemed necessary Discussed with Attending Physician, Dr. Brendan Ayers MD Neurology Resident T CUTTER Associated attestation - Joselyn Cardona MD - 11/29/2020 12:04 PM [facility] Attending note: Pt was discussed on the phone with the neurology resident but patient was not seen in person by theattending. Record was not reviewed by the attending. History and exam are based on the resident's report. I agree with the assessment and plan as discussed. Likely pseudoseizure per description of general activity without altered LOC, and without evidence for sz on recent eeg at an OSH per pt's report and with unremarkable MRI per her report as well. No need for AEDs and she will follow with her PCP, and if the episodes continue, she will benefit from EMU admission later on. Consider psych evaluation for underlying provoking factor for these pseudosz. No neurology follow up is needed. Thank you for the consultation. Joselyn Cardona MD Attending documented in this encounter ED Notes * Mel Fu RN - 11/28/2020 8:59 PM CST Pt given a sandwich and a soda. Will continue to monitor. T CUTTER * Jl Barbour RN - 11/28/2020 7:18 PM CST Report given to HARDIK Leal for care handoff. T CUTTER * Dario Aponte MD - 11/28/2020 2:03 PM CST ASSUMED CARE NOTE Patient signed out to me by Dr. Jeffrey at 2:00 PM. Briefly, Kylee Guo is a 35 year old female is being evaluated for seizure. PMHx of bipolar 1, anxiety, pseudotumor cerebri, and benign renal cysts. Presents for episodes of shaking and headachessover the last 2 weeks. Self reports hx of pseudoseizures, however, pt has not been seen and evaluated by a neurologist. Neuro has been consulted. At this time the patient's condition is Stable. Pending studies include all labs and CT head. Plan is reassess once labs/ imaging result and consultants provide recommendations, dispo pending. No data found. ED Course 8:44 PM- Neuro has seen and evaluated the pt. Per hx, patient has already been diagnosed at anotherhospital with pseudoseizures after EEG. Neuro states they agree with this diagnosis as her exam is non focal and reassuring. They believe the stuttering speech is also most likely functional. Neuro states she could benefit from Neuropsychology evaluation and can follow up with PCP / consider Neurology as outpatient if deemed necessary. 9:14 PM: I have reviewed her diagnostic findings and she has had an opportunity to ask me any questions she has about care, diagnosis and discharge plan. Patient is comfortable with the discharge plan. She will follow up as directed and will return to the ER if her condition worsens or she developsother urgent concerns. This patient was evaluated during the COVID-19 pandemic. Clinical Impression: 1. Seizure 2. Stutter Disposition: Discharge By signing my name below, I, Cherry Avery, attest that this documentation has been prepared under the direction and in the presence of Dr. Aponte. Signed: Anisa Prescott. Date: 11/28/2020. Time:2:04 PM. I, Dr. Aponte, personally performed the services described in this documentation. All medical record entries made by the scribe were at my direction and in my presence. I have reviewed the chart and agree that the record reflects my personal performance and is accurate and complete. T CUTTER * Tomy Jeffrey MD - 11/28/2020 1:41 PM CST ED Attending Note Interval History: Kylee Guo is a 35 year old female with PMHx of bipolar 1, anxiety, pseudotumor cerebri, and benign renal cysts who is presenting to the ED c/o tremors. Patient reports episodes of tremors and headache for the past two weeks. Patient states symptoms are worse at night. She notes one episode of ur inary incontinence associated with a shaking episode. Patient reports history of pseudoseizures and states these symptoms are characteristic of such. Denies chest pain, cough, fever, chills, N/V/D,or shortness of breath. Patient describes headache as radiating to lateral left head. Denies visionchanges or changes in gait/balance. Patient states she normally does not get headaches like this. Denies alcohol, drug, or tobacco use. Other PMHx as listed below. No other questions or complaints atthis time. Past Medical History: Diagnosis Date ??? Bipolar I disorder, most recent episode (or current) unspecified ??? Diabetes ??? Empty sella ??? Generalized anxiety disorder ??? Heart problem ??? High blood pressure ??? Idiopathic intracranial hypertension ??? Kidney disease ??? Ovarian cyst ??? PCOD (polycystic ovarian disease) ??? Polycystic kidney disease Past Surgical History: Procedure Laterality Date ??? Section x2 ??? Cholecystectomy ??? IR GALLBLADDER DRAINAGE ??? TUBAL LIGATION, LAPAROSCOPIC Social History Socioeconomic History ??? Marital status: [...] Packs/day: 0.25 Quit date: 06/30/2020 Years since quittin.4 ??? Smokeless tobacco: Never Used Substance and Sexual Activity ??? Alcohol use: No ??? Drug use: Not Currently Types: Marijuana ??? Sexual activity: Not on file Lifestyle ??? Physical activity Days per week: Not on file Minutes per session: Not on file ??? Stress: Not on file Relationships ??? Social connections Talks on phone: Not on file Gets together: Not on file Attends latter day service: Not on file Active member of [...] ??? Not on file Review of Systems: (+) positive All systems negative except as marked. Constitutional: Negative for fever HENT: Negative for sore throat. Eyes: Negative for visual changes Respiratory: Negative for SOB, cough Cardiovascular: Negative for chest pain, palpitations Gastrointestinal: Negative for abdominal pain, nausea, vomiting, diarrhea Genitourinary: Negative for difficulty urinating, hematuria, dysuria Musculoskeletal: Negative for neck pain, back pain, myalgia Skin: Negative for rash, itching Neurological: Negative for dizziness, weakness, numbness, tingling, + headache, tremors Psychiatric: Negative for SI, hallucinations, anxiety Vitals: 11/28/20 1135 BP: 144/88 Pulse: 97 Resp: 20 Temp: 97.7 ??F (36.5 ??C) SpO2: 100% Weight: 95.7 kg (211 lb) Height: 1.626 m (5' 4 ) Exam: Constitutional: well developed, well nourished, no acute distress, sitting in bed, stuttering speech, cold towel over forehead HENT: normocephalic, atraumatic, moist oral mucosa, conjunctiva normal, sensory intact to face Eyes: PERRL, EOMi Neck: supple, normal ROM Cardiovascular: regular rate and rhythm, no murmur Respiratory: clear to auscultation bilaterally, no wheezes, no respiratory distress Abdomen: soft, non-distended, mild bilateral lower quadrant tenderness, no r/g Musculoskeletal: no edema or deformities Skin: warm, dry, no lesions Neurological: Mental status: A/Ox3 CN: II, III, IV, - EOMi, PERRL V - Sensation intact on face bilaterally VII - Face symmetric VIII- Hearing grossly intact XI - Shrugs shoulders symmetric XII - Tongue midline Sensory: Sensation intact to sharp/dull differentiation in all extremities. Motor: Motor: Normal tone and bulk. No abnormal movements appreciated. No pronator drift. RUE: 5/5 Wrist flexion/extension, elbow flexion/extension, shoulder abduction LUE: 5/5 Wrist flexion/extension, elbow flexion/extension, shoulder abduction RLE: 5/5 Straight leg raise, knee flexion/extension, ankle dorsiflexion/plantarflexion. LLE: 5/5 Straight leg raise, knee flexion/extension, ankle dorsiflexion/plantarflexion. Gait: Did not ambulate patient Coordination: Finger to nose intact bilaterally. Psychiatric: mood and affect normal Medical Decision Makin. Seizure vs pseudoseizure Differential diagnosis considered: Seizure, pseudoseizure, electrolyte abnormality, head bleed, psychosis, Plan: CBC, CMET, MAG, PHOS, TSH, Prolactin, Lactate, UA, CT head, neurology consult Results: Labs Reviewed ACETAMINOPHEN LEVEL ALCOHOL ETHYL BLOOD BLOOD GASES SAURABH CBC W AUTO DIFFERENTIAL COMPREHENSIVE METABOLIC PANEL HCG BETA BLOOD QUANTITATIVE LACTIC ACID BLOOD PROLACTIN DRUG SCREEN TOX URINE PANEL TSH MAGNESIUM BLOOD PHOSPHORUS BLOOD CT HEAD WO CONTRAST (Results Pending) ED course: The patient's Oxygen Saturation Monitor was interpreted by me. The reading was 100%. The patient was on RA at the time of the reading. This is interpreted as normal. 1:50 PM- Discussed all the pertinent aspects of the case with Neurology who will see the patient. 2:05 PM- Signed out to Dr. Aponte, pending Neurology recommendations and workup Consult Yes -Neurology Procedure done at this time No Ultrasound done at this time No CRITICAL CARE IN THE ED No Orders and Medicine administered during this encounter: Orders Placed This Encounter ??? CT HEAD WO CONTRAST ??? ACETAMINOPHEN LEVEL ??? ALCOHOL ETHYL BLOOD ??? BLOOD GASES SAURABH ??? CBC W AUTO DIFFERENTIAL ??? COMPREHENSIVE METABOLIC PANEL ??? HCG BETA BLOOD QUANTITATIVE ??? LACTIC ACID BLOOD ??? PROLACTIN ??? DRUG SCREEN TOX URINE PANEL ??? TSH ??? MAGNESIUM BLOOD ??? PHOSPHORUS BLOOD ??? IP CONSULT TO NEUROLOGY Medications - No data to display Clinical Impression: 1. Seizure Disposition: Pending- signed out to Dr. Aponte By signing my name below, I, Shaun Livingston, attest that this documentation has been prepared under the direction and in the presence of Dr. Jeffrey. Signed: Anisa Roberson. Date: 11/28/2020. Time:1:41 PM. I, Dr. Jeffrey, personally performed the services described in this documentation. All medical record entries made by the scribe were at my direction and in my presence. I have reviewed the chart and agree that the record reflects my personal performance and is accurate and complete. T CUTTER * Lynda Dodge RN - 11/28/2020 12:02 PM CST Bed: [address] Expected date: Expected time: Means of arrival: Comments: SEIZURE LIKE ACTIVITY T CUTTER * Nadir Maharaj - 11/28/2020 11:36 AM CST Patient states she's allergic to Phenergen, Reglan, compozene, and zofran T CUTTER documented in this encounter Plan of Treatment Upcoming Encounters Date Type Department Care Team (Late st Contact Info) Description 12/27/2024 1:00 PM [facility] Office Visit [facility] Services [id number] [place] [address] [place] [id number] [facility] [address] [place] [address] documented as of this encounter Procedures Procedure Name Priority Date/Time Associated Diagnosis Comments PROLACTIN STAT 11/28/2020 6:50 PM [facility] CBC W AUTO DIFFERENTIAL STAT 11/28/2020 6:50 PM [facility] BLOOD GASES SAURABH STAT 11/28/2020 6:50 PM [facility] COMPREHENSIVE METABOLIC PANEL STAT 11/28/2020 6:50 PM [facility] HCG BETA BLOOD QUANTITATIVE STAT 11/28/2020 6:50 PM [facility] PHOSPHORUS BLOOD STAT 11/28/2020 6:50 PM [facility] MAGNESIUM BLOOD STAT 11/28/2020 6:50 PM [facility] ALCOHOL ETHYL BLOOD STAT 11/28/2020 6 :50 PM [facility] TSH ESTRELLA 11/28/2020 6:50 PM [facility] C[facility] ACETAMINOPHEN LEVEL STAT 11/28/2020 6 :50 PM [facility]TER GLUCOSE - POINT OF CARE Routine 11/28/2020 6:[address] HEAD WO CONTRAST STAT 11/28/2020 4 :30 PM IN[facility] C[facility]TER Seizure (HCC) documented in this encounter Results * PHOSPHORUS BLOOD (11/28/2020 6:50 PM [facility] C[facility]TER) Phosphorus 3.7 2.3 - 4.7 mg/dL 11/28/2020 7:23 PM [facility] Blood BLOOD SPECIMEN / Unknown Venipuncture / Unknown 11/28/2020 6:50 PM IN[facility] CUTTER 11/28/2020 6:15 PM [facility] Tomy Jeffrey MD LAB - CHEMISTRY ORDAris TEIXEIRA [address] [address], [facility] [phone] * MAGNESIUM BLOOD (11/28/2020 6:50 PM INSET CUTTER) Magnesium 1.9 1.6 - 2.6 mg/dL 11/28/2020 7:23 PM [facility] Blood BLOOD SPECIMEN / Unknown Venipuncture / Unknown 11/28/2020 6:50 PM IN[facility] CUTTER 11/28/2020 6:15 PM [facility] C[facility]TER Tomy Jeffrey MD LAB - CHEMISTRY MARCEL TEIXEIRA [address] [address], [facility] [phone] * TSH (11/28/2020 6:50 PM IN[facility] C[facility]TER) TSH 1.087 0.350 - 4.940 uIU/mL 11/28/2020 7:39 PM [facility] Blood BLOOD SPECIMEN / Unknown Venipuncture / Unknown 11/28/2020 6:50 PM [facility] C[facility]TER 11/28/2020 6:15 PM [facility] C[facility]TER Tomy Jeffrey MD LAB - CHEMISTRY ORDAris QUINONEZLES Performing Organization Address [facility] de Phone Number [facility] LAB[facility] [address] [place] [address], [facility] [phone] * PROLACTIN (11/28/2020 6:50 PM INSET CUTTER) [facility] Prolactin 4.4 2.8 - 26.0 ng/mL 12/01/2020 3:19 PM [facility] C[facility]TER [facility] ([facility]) Comment: REFERENCE INTERVAL: Prolactin Access complete set of age- and/or gender-specific reference intervals for this test in the [facility] Laboratory Test Directory ([employer]). Performed By: [facility] eSNF [address] [place] [address] [employer] Estimator: Geraldine Mehta MD Blood BLOOD SPECIMEN / Unknown Venipuncture / Unknown 11/28/2020 6:50 PM [facility] C[facility]TER 11/28/2020 6:15 PM IN[facility] C[facility]TER Tomy Jeffrey MD LAB - CHEMISTRY MARCEL TEIXEIRA Performing Organization Address [facility] de Phone Number [facility]) [address] * HCG BETA BLOOD QUANTITATIVE (11/28/2020 6:50 PM INSET CUTTER) [facility] Beta-hCG Total Quantitative <3 <5 mIU/mL 11/28/2020 7:39 PM INSET C[facility]TER [facility] Comment: This assay is cleared for use [...] Unknown Venipuncture / Unknown 11/28/2020 6:50 PM INSET CUTTER 11/28/2020 6:15 PM INSET C[facility]TER Tomy Jeffrey MD LAB - CHEMISTRY MARCEL TEIXEIRA Performing Organization Address [facility]/State/ZIP Co de Phone Number [facility] [address] [place] [address], [facility] [phone] * (ABNORMAL) COMPREHENSIVE METABOLIC PANEL (11/28/2020 6:50 PM [facility]) BUN 17 7 - 26 mg/dL 11/28/2020 7:23 PM [facility] Creatinine 0.7 0.6 - 1.2 mg/dL 11/28/2020 7:23 PM [facility] Sodium 137 136 - 145 mmol/L 11/28/2020 7:23 PM [facility] Potassium 3.8 3.5 - 4.5 mmol/L 11/28/2020 7:23 PM [facility] Chloride 99 98 - 107 mmol/L 11/28/2020 7:23 PM [facility] CO2 22 22 - 29 mmol/L 11/28/2020 7:23 PM [facility] Glucose 85 70 - 115 mg/dL 11/28/2020 7:23 PM [facility] Calcium 9.8 8.4 - 10.2 mg/dL 11/28/2020 7:23 PM [facility] Protein Total 8.1 6.0 - 8.3 g/dL 11/28/2020 7:23 PM [facility] Albumin 3.8 3.4 - 5.0 g/dL 11/28/2020 7:23 PM [facility] Bilirubin Total 0.3 0.2 - 1.2 mg/dL 11/28/2020 7:23 PM [facility] Alkaline Phosphatase 74 40 - 150 Units/L 11/28/2020 7:23 PM [facility] ALT 28 0 - 55 Units/L 11/28/2020 7:23 PM [facility] AST 26 5 - 34 Units/L 11/28/2020 7:23 PM [facility] Anion Gap 20(H) 8 - 18 11/28/2020 7:23 PM [facility] BUN/Creatinine Ratio 24(H) 7 - 23 11/28/2020 7:23 PM [facility] Osmolality Calculated 285 270 - 300 mOsm/kg 11/28/2020 7:23 PM [facility] Albumin/Globulin Ratio 0.9(L) 1.1 - 2.3 11/28/2020 7:23 PM [facility] eGFR >60 >60 mL/min/1.7 3 m2 11/28/2020 7:23 PM [facility] Blood BLOOD SPECIMEN / Unknown Venipuncture / Unknown 11/28/2020 6:50 PM INSET CUTTER 11/28/2020 6:15 PM INSET CUTTER Tomy Jeffrey MD LAB - CHEMISTRY MARCEL TEIXEIRA [facility] [address] [place] [address], [facility] [phone] * (ABNORMAL) CBC W AUTO DIFFERENTIAL (11/28/2020 6:50 PM INSET CUTTER) WBC 11.4(H) 3.5 - 10.5 10? 3 /uL 11/28/2020 7:02 PM [facility] RBC 4.22 3.90 - 5.00 10? 6 /uL 11/28/2020 7:02 PM [facility] [facility] Hemoglobin 11.8(L) 12.0 - 15.5 g/dL 11/28/2020 7:02 PM [facility] Hematocrit 35.7 35.0 - 45.0 % 11/28/2020 7:02 PM [facility] MCV 84.6 81.0 - 97.0 fL 11/28/2020 7:02 PM [facility] MCH 28.0 28.0 - 34.0 pg 11/28/2020 7:02 PM [facility] MCHC 33.1 32.0 - 36.0 g/dL 11/28/2020 7:02 PM [facility] Platelet Count 314 150 - 400 10? 3 /uL 11/28/2020 7:02 PM [facility] RDW-SD 42.0 36.0 - 50.0 fL 11/28/2020 7:02 PM [facility] RDW-CV 13.8 11.2 - 14.8 % 11/28/2020 7:02 PM [facility] MPV 8.2(L) 9.3 - 12.8 fL 11/28/2020 7:02 PM [facility] nRBC Absolute 0.00 0 10? 3 /uL 11/28/2020 7:02 PM [facility] nRBC Auto 0.0 0 /100 WBC 11/28/2020 7:02 PM [facility] Neutrophils % 60.7 35.0 - 70.0 % 11/28/2020 7:02 PM [facility] Lymphocytes % 30.8 19.7 - 55.1 % 11/28/2020 7:02 PM [facility] Monocytes % 5.4 3.0 - 15.0 % 11/28/2020 7:02 PM [facility] Eosinophils % 2.2 0.0 - 6.0 % 11/28/2020 7:02 PM [facility] Basophil % 0.4 0.0 - 1.5 % 11/28/2020 7:02 PM [facility] Neutrophils Absolute 6.9 1.6 - 7.0 10? 3 /uL 11/28/2020 7:02 PM [facility] Lymphocyte Absolute 3.5(H) 0.8 - 2.9 10? 3 /uL 11/28/2020 7:02 PM [facility] Monocytes Absolute 0.62 0.14 - 0.66 10? 3 /uL 11/28/2020 7:02 PM [facility] Eosinophils Absolute 0.25 0.00 - 0.45 10? 3 /uL 11/28/2020 7:02 PM [facility] Basophils Absolute 0.04 0.00 - 0.06 10? 3 /uL 11/28/2020 7:02 PM [facility] Immature Granulocytes % 0.5 0.0 - 1.0 % 11/28/2020 7:02 PM [facility] Blood BLOOD SPECIMEN / Unknown Venipuncture / Unknown 11/28/2020 6:50 PM [facility] 11/28/2020 6:15 PM [facility] Tomy Jeffrey MD LAB - HEMATOLOGY ORD ERABLES [facility] [address] [place] [address], [facility] [phone] * (ABNORMAL) BLOOD GASES SAURABH (11/28/2020 6:50 PM [facility]) pH Mixed Venous 7.42(H) 7.30 - 7.40 11/28/2020 6:59 PM [facility] pCO2 Mixed Venous 39(L) 40 - 46 mmHg 11/28/2020 6:59 PM [facility] pO2 Mixed Venous 20(L) 35 - 42 mmHg 11/28/2020 6:59 PM [facility] HCO3 Mixed Venous 25.1 22.0 - 26.0 mmol/L 11/28/2020 6:59 PM [facility] TCO2 Mixed Venous 26.3 25.0 - 29.0 mmol/L 11/28/2020 6:59 PM [facility] Base Excess Venous 0.7 -2.0 - 2.0 mmol/L 11/28/2020 6:59 PM [facility] Hemoglobin Mixed Venous 11.2(L) 12.0 - 15.5 g/dL 11/28/2020 6:59 PM [facility] Oxyhemoglobin Mixed Venous 31.5(L) 66.0 - 77.0 % 11/28/2020 6:59 PM [facility] Carboxyhemoglobin Venous 0.3 0.0 - 3.0 % 11/28/2020 6:59 PM [facility] Methemoglobin 1.4 0.0 - 2.0 % 11/28/2020 6:59 PM [facility] FI O2 Mixed Venous 21.0 % 2020 6:59 PM [facility] Blood BLOOD SPECIMEN / Unknown Venipuncture / Unknown 11/28/2020 6:50 PM [facility] 11/28/2020 6:54 PM [facility] Tomy Jeffrey MD LAB - BLOOD GASES OR DERABLES [facility] [address] [place] [address], [facility] [phone] * ALCOHOL ETHYL BLOOD (11/28/2020 6:50 PM [facility]) Interpretation Ethanol None Detected None Detected mg/dL 11/28/2020 7:23 PM [facility] Comment:Ethanol levels less than 10 mg/dL are resulted as None detected . Blood BLOOD SPECIMEN / Unknown Venipuncture / Unknown 11/28/2020 6:50 PM [facility] 11/28/2020 6:15 PM [facility] Tomy Jeffrey MD LAB - CHEMISTRY MARCEL TEIXEIRA [address] [address], [place] [phone] * ACETAMINOPHEN LEVEL (11/28/2020 6:50 PM [facility]) Pathologist [facility] Acetaminophen <3.0 <30.0 mcg/mL 11/28/2020 7:23 PM [facility] Blood BLOOD SPECIMEN / Unknown Venipuncture / Unknown 11/28/2020 6:50 PM [facility] 11/28/2020 6:15 PM [facility] Tomy Jeffrey MD LAB - CHEMISTRY MARCEL TEIXEIRA Performing Organization Address [facility]/ZIP Co de Phone Number [address] [address], [place] [phone] * GLUCOSE - POINT OF CARE (11/28/2020 6:44 PM [facility]) Pathologist [facility] Glucose WB/POC 86 70 - 115 mg/dL 11/28/2020 6:54 PM [facility] Specimen Type Arterial/C apillary 11/28/2020 6:54 PM [facility] Blood BLOOD SPECIMEN / Unknown 11/28/2020 6:44 PM [facility] 11/28/2020 6:54 PM [facility] Dario Aponte MD LAB - POINT OF CARE ORDERABLES Performing Organization Address City/[facility]/ZIP Co de Phone Number [address] [address], [place] [phone] * CT HEAD WO CONTRAST (11/28/2020 4:30 PM [facility]) Anatomical Region Laterality Modality Head Computed Tomogra phy 11/28/2020 4:59 PM [facility] Impressions 11/29/2020 8:52 AM [facility] IMPRESSION: Normal examination of the brain. No acute intracranial hemorrhage, midline shift, or significant mass effect. Dictated by Anibal Sky MD (Falsework Builder) I, Dr. AJAY BAJWA have personally reviewed and interpreted this examination/study. This report was electronically signed by AJAY BAJWA ??on 11/29/2020 8:52 AM . Narrative 11/29/2020 8:[address] HEAD WITHOUT CONTRAST, 11/28/2020 4:30 PM [...] mass effect. Dictated by Anibal Sky MD (Falsework Builder) I, Dr. AJAY BAJWA have personally reviewed and interpreted this examination/study. This report was electronically signed by AJAY BAJWA on 11/29/2020 8:52 AM . Tomy Jeffrey MD CT ORDERABLES documented in this encounter Visit Diagnoses Diagnosis Seizure (HCC) Other convulsions Stutter Childhood onset fluency disorder documented in this encounter Care Teams Division Leader Relationship Specialty Start Date End Date Azam Jackson, YOUTH CORRECTIONS OFFICER-INFANT ROOM TEACHER [address] [place] [address] [place] [address] PCP - General Nurse Practitioner Gerontology 11/28/20 documented as of this encounter
--- OUTSIDE RECORDS SUMMARY | 2024-11-17 14:25 | XMS_ITS | Encounter Summary ---
Author Organization [facility] Address [address] [facility] [place] [address] Care Team Providers Care Biometrics Technician Name Role Phone Dorota Martinez MD Primary Care Provider [phone] Encounter Details Date Type Department Care Team (Latest Contact Info) Description 07/31/2020 Travel Social History Tobacco Use Types Packs/Day [...] have Coronavirus / COVID-19? No / Unsure 07/31/2020 10:28 AM CDT documented as of this encounter Plan of Treatment Upcoming Encounters Date Type Department Care Team (Late st Contact Info) Description 12/27/2024 1:00 PM PROCEDURE ANALYST Office Visit [facility] [address] [facility] [address] [place] [address] [place] [address] [facility] [address] [place] [address] documented as of this encounter Visit Diagnoses Not on filedocumented in this encounter Care Teams Biometrics Technician Relationship Specialty Start Date End Date Dorota Martinez MD [address] [place] [address] PCP - General 01/21/19 08/11/20 documented as of this encounter
--- OUTSIDE RECORDS SUMMARY | 2024-11-17 14:25 | XMS_ITS | Encounter Summary ---
Author Organization [facility] Address [address] [facility] [place] [address] Care Team Providers Care Hander In Name Role Phone Dorota Martinez MD Primary Care Provider [phone] Reason for Referral * Radiology Services (Routine) - Closed Specialty Diagnoses / Procedures Referred By Contac t Referred To Contact MRI Diagnoses Bilateral renal cysts Procedures MRI ABDOMEN WWO CONTRAST Trevon Monique MD [address] [place] [address] [facility] Mri [address] [place] [address] Referral ID Status Reason Start Date Expiration Date Visits Re quested Visits Authorized [id number] Closed 08/05/2020 09/03/2020 1 1 Reason for Visit * Reason Comments Establish Care LEFT RENAL MASS Encounter Details Date Type Department Care Team (Late st Contact Info) Description 07/31/2020 9:30 AM CDT Office Visit [facility] Urology [address] [place] [address] Trevon Monique MD [address] [place] [address] Bilateral renal cysts (Primary Dx) Social History Tobacco Use Types [...] AM CDT documented as of this encounter Last Filed Vital Signs Vital Sign Reading Time Taken Comments Blood Pressure 187/104 07/31/2020 9:31 AM CDT Pulse 100 07/31/2020 9:31 AM CDT Temperature 36.1 ??C (97 ??F) 07/31/2020 9:31 AM CDT Respiratory Rate - - Oxygen Saturation 97% 07/31/2020 9:31 AM CDT Inhaled Oxygen Concentration - - Weight 92.1 kg (203 lb) 07/31/2020 9:31 AM CDT Height 162.6 cm (5' 4 ) 07/31/2020 9:31 AM CDT Body Mass Index 34.84 07/31/2020 9:31 AM CDT documented in this encounter Progress Notes * Jacinta Sotelo MD - 07/31/2020 10:22 AM CDT [facility] Division of Urologic Surgery Trevon Monique MD Date of Visit: 07/31/2020 Patient Name: Kylee Guo : 1985 Medical Record: [id number] Contact (home) Age: [age] year old Sex: female Referring Physician: No referring provider defined for this encounter. Chief Complaint: Chief Complaint Patient presents with ??? Establish Care LEFT RENAL MASS History of Present Illness: The patient is a 35 year old female being seen today for new evaluation of renal mass. Patient reports she was diagnosed with CKD and polycycstic kidneys back in 2017 after a workup for right sided pain. She now sees assembly line robot operator regularly, Cr normal at 0.5. She reports a urologist told her she hascysts but not PCKD. Reportedly, an US in 2019 was read as having a renal mass, she believes she was told it was on the left but is not sure. No reports available in our system, although images are onsynapse and appear to show only simple cysts. She reports she has been told repeatedly to follow upwith due to this renal mass and concern for cancer, she has had to cancel several appointment due to COVID. She denies hematuria. Does report occasional right sided flank pain which is stabbing and comes and goes. She also reports urinary frequency. Has had prior UTI's, no known pyelonephritis. Other medical issues included DM, HTN, fibromyalgia, migraines, pseudo tumor cerebri, empty sella syndrome. Prior surgeries of cholecystectomy and c section. Family history of a mother with kidney mass but she knows nothing else about this and mother is still alive; also ovarian cancer and cervical cancer in relatives. She is a prior heavy smoker but quit. Past Medical History; Past Medical History: Diagnosis [...] No current facility-administered medications for this visit. Allergies; Compazine [prochlorperazine]; Ondansetron; Reglan [metoclopramide]; and [...] Last attempt to quit: 06/30/2020 Years since quittin.0 ??? Smokeless tobacco: Never Used Substance and Sexual Activity ??? Alcohol use: No ??? Drug use: Yes Types: Marijuana ??? Sexual activity: Not on file Lifestyle ??? Physical activity Days per week: Not on file Minutes per session: Not on file ??? Stress: Not on file Relationships ??? Social connections Talks on phone: Not on file Gets together: Not on file Attends alevism service: Not on file Active member of [...] Ears/nose/mouth: Negative Lungs:Negative Heart:Negative Gastrointestinal: neg Genitourinary: +frequency, R flank pain Musculoskeletal: Negative Nervous system: Negative Reproductive system: Negative Hematologic: Negative Lymphatic: Negative Endocrine: Negative Physical Exam: Vital Signs: BP 187/104 Pulse 100 Temp 97 ??F (36.1 ??C) Ht 5' 4 (1.626 m) Wt 203 lb (92.1 kg) SpO2 97% BMI 34.84 kg/m2 General: alert, NAD HEENT: NCAT Cardio: RRR Pulm: normal effort on room air Abd: soft, non distended, non tender : no CVA tenderness MSK: no edema or cyanosis Neuro: AOx4 Laboratory Studies: Lab results smartLinks are not currently available US 2019 on synapse: no radiology read available, appears to have bilateral simple cysts CT 02/2019 w w/o a/p: no radiology read available. Appears simple bilateral renal cysts Diagnosis: 35 yo F with bilateral renal cysts and question of prior US reading of renal mass. Discussed management of renal masses, however we need new imaging to verify. Recommendations: - obtain MRI abd w/w/o; ativan prescribed for claustrophobia - F/u after MRI Jacinta Sotelo MD 07/31/2020 10:22 AM Associated attestation - Trevon Monique MD - 07/31/2020 10:38 AM CDT Patient seen and examined with the provider. Please see note for further details. I confirm the history, exam, assessment and plan. In addition I note: Subjective: 35yo female with history of bilateral renal cysts. She notes a report from US in 2018 that mentioned a solid mass but records not available to confirm this. She denies hematuria, dysuria, or family history of kidney disease / dialysis. Objective: 12/2012 Renal US Report notes single 1cm simple cyst within left kidney 12/2012 CT abd/pelv with Report notes bilateral kidneys demonstrate multiple bilateral hypodensities measuring 1cm or less 02/2017 CT abd/pelv without Report notes No renal or ureteral calculi, hydronephrosis, or hydroureter bilaterally 02/2019 CT abd/pelv with/without Report notes there are multiple bilateral renal simple cysts Assessment/Plan: 35yo female with bilateral renal cysts MRI abd w/wo Ativan pre procedure 07/31/2020 10:36 AM Trevon Monique MD documented in this encounter Plan of Treatment Upcoming Encounters Date Type Department Care Team (Late st Contact Info) Description 12/27/2024 1:00 PM JACQUARD LOOM FIXER Office Visit [facility] [address] [facility] [address] [place] [address] Chin Mcleod MD [address] [place] [address] [address] [place] [address] documented as of this encounter Results * MRI ABDOMEN WWO [...] 12:24 PM Trevon Monique MD MR ORDERABLES documented in this encounter Visit Diagnoses Diagnosis Bilateral renal cysts- Primary Unspecified congenital cystic kidney disease Bilateral renal cysts Unspecified congenital cystic kidney disease documented in this encounter Care Teams Hander In Relationship Specialty Start Date End Date Dorota Martinez MD [address] [place] [address] PCP - General 01/21/19 08/11/20 documented as of this encounter
--- OUTSIDE RECORDS SUMMARY | 2024-11-17 14:25 | XMS_ITS | Encounter Summary ---
Author Organization [facility] Address [address] [place] [place] [address] Care Team Providers Care Head Banquet Waiter/Waitress Name Role Phone Dorota Martinez MD Primary Care Provider [phone] Reason for Visit * Reason Onset Date Comments Appointment 11/19/2019 Encounter Details Date Type Department Care Team (Late Contact Info) Description 11/19/2019 Telephone [facility] Urology [address] [place] [address] Dinorah Martinez, RN Appointment Social History Tobacco [...] Telephone Encounter - Dinorah Martinez RN - 11/19/2019 12:34 PM CST New referral appt 11/22/19. Phoned pt. Left message asking her to return phone call. Attempting to see if she had outside imaging done, so can obtain reports and images. PRESIDENT TAX documented in this encounter Plan of Treatment Upcoming Encounters Date Type Department Care Team (Late Contact Info) Description 12/27/2024 1:00 PM VICE PRESIDENT TAX Office Visit [facility] [address] [facility] [address] [place] [address] [place] [address] [facility] [address] [place] [address] documented as of this encounter Visit Diagnoses Not on filedocumented in this encounter Care Teams Head Banquet Waiter/Waitress Relationship Specialty Start Date End Date Dorota Martinez MD [address] [place] [address] PCP - General 01/21/19 08/11/20 documented as of this encounter
--- OUTSIDE RECORDS SUMMARY | 2024-11-17 14:25 | XMS_ITS | Encounter Summary ---
Author Organization [facility] Address [address] [facility] [place] [address] Care Team Providers Care Contact Lens Manufacturer Name Role Phone Unavailable Primary Care Provider Unavailabl e Encounter Details Date Type Department Care Team (Latest Contact Info) Description 05/03/2017 Hospital Outpatient Visit [facility] Default Department Debra Lora PA-C [address] [facility] [address] [facility] [place] [address] Discharge Disposition: Home or Self Care Social [...] st Contact Info) Description 12/27/2024 1:00 PM GOLF CLUB MANAGER Office Visit [facility] [address] [address] [place] [address] [address] documented as of this encounter Visit Diagnoses Not on filedocumented in this encounter
--- OUTSIDE RECORDS SUMMARY | 2024-11-17 14:25 | XMS_ITS | Encounter Summary ---
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 and Recently Administered Medications Times are shown in CDT. Scheduled Medication Order 08/12/2014 08/13/2014 08/14/2014 acetaminophen (TYLENOL) tablet 650 mg (COMPLETED) 650 mg, Oral, ONCE, 1 dose, On Alfreda 08/14/14 at 0415, Maximum allowable Acetaminophen amount = 4 Grams (4000 mg) / 24 hours. 0426 ($ Given - Prov ider: Lila Hudson RN) documented in this encounter
--- OUTSIDE RECORDS SUMMARY | 2024-11-17 14:26 | XMS_ITS | Encounter Summary ---
Author Organization [facility] Healthcare Address [address] [place] [address] Care Team Providers Care Fax Machine Repairer Name Role Phone Andrei Clark MD Primary Care Provider [phone] Kandace Freedman OT Unavailable [phone] Christina Brunson MD Unavailable [phone] Encounter Details Date Type Department Care Team (Late st Contact Info) Description 10/17/2022 5:30 PM [facility] ([facility]) [address] [place] [id number] Cyst of left ovary Social History Tobacco Use Types Packs/Day Years Used Date Smoking Tobacco: Former Cigarettes Q uit: 06/2020 Smokeless Tobacco: Never Alcohol Use Standard Drinks/Week Comments Never 0 (1 standard drink = 0.6 oz pur e alcohol) AUDIT-C Answer Date Recorded Q1: How often do you have a drink containing alcohol? Never 09/30/2022 Q2: How many drinks containi ng alcohol do you have on a typical day when you are drinking? Patient does not drink Q3: How often do you have si x or more drinks on one occasion? Never 09/30/2022 Comments No Sex and Gender Information Value Date Recorded Sex Assigned at Not on file Legal Sex Female 4:48 PM W[employer] Gender Identity Not on file Sexual Orientation Not on file documented as of this encounter Plan of Treatment Not on file documented as of this encounter Procedures Procedure Name Priority Date/Time Associated Diagnosis Comments EGFR Routine 10/17/2022 5:08 PM [employer] Cyst of left ovary DIFFERENTIAL AUTO Routine 10/17/2022 5:0 8 PM [employer] Cyst of left ovary CBC WITH AUTO DIFFERENTIAL Routine 10/17/2022 5:08 PM [employer] Cyst of left ovary COMPREHENSIVE METABOLIC PANEL Routine 10/17/2022 5:08 PM [employer] Cyst of left ovary documented in this encounter Results * (ABNORMAL) eGFR (10/17/2022 5:08 PM [employer]) eGFR 82(L) 90 - 130 mL/min/1. 73 m2 [facility] Comment: Interpretive Data Reference Interval Normal ?>/= 90 mL/min/1.73m2 Mildly decreased* ? 60 - 89 mL/min/1.73m2 Mildly to moderately decreased ?45 - 59 mL/min/1.73m2 Moderately to severely decreased ??30 - 44 mL/min/1.73m2 Severely decreased ?15 - 29 mL/min/1.73m2 Kidney Failure ?< 15 ??mL/min/1.73m2 *Relative to young adult level Estimated glomerular filtration rate is determined by the 2020 CKD-EPI equation recommended by the National Kidney Foundation (A Unifying Approach to GFR Estimation: Recommendations of the NKF-ASK Task Force on Reassessing the Inclusion of Race in Diagnosing Kidney Disease, JASN 202). The CKD-EPI equation should not be used for patients with unstable renal function and has not been validated in children and those over 70. Current interpretive data was last reviewed 2021. Blood 10/17/2022 5:08 PM W[employer] 10/17/2022 5:58 PM [employer] us Premal Elia Jackson MD LAB BLOOD ORDERABLES Fin al Result [facility] Department [place] [address] * (ABNORMAL) Differential, auto (10/17/2022 5:08 PM [employer]) Neutrophil abs 7.7(H) 1.7 - 6.5 K/cumm [facility] Imm gran abs 0.0 0.0 - 0.1 K/cumm [facility] Lymphocyte abs 2.9 0.8 - 3.3 K/cumm [facility] Monocyte abs 0.6 0.2 - 0.8 K/cumm [facility] Eosinophil abs 0.3 0.0 - 0.5 K/cumm [facility] Basophil abs 0.1 0.0 - 0.1 K/cumm [facility] Neutrophil pct 66.2 % [facility] Comment: Interpretive Data Percent cell count reference ranges are not reported, since discordance with absolute values may lead to misinterpretation of CBC data. Current Interpretive Data was last revised on 2018. Imm gran pct 0.3 % [facility] Comment: Interpretive Data Percent cell count reference ranges are not reported, since discordance with absolute values may lead to misinterpretation of CBC data. Current Interpretive Data was last revised on 2018. Lymphocyte pct 24.6 % [facility] Comment: Interpretive Data Percent cell count reference ranges are not reported, since discordance with absolute values may lead to misinterpretation of CBC data. Current Interpretive Data was last revised on 2018. Monocyte pct 5.5 % [facility] Comment: Interpretive Data Percent cell count reference ranges are not reported, since discordance with absolute values may lead to misinterpretation of CBC data. Current Interpretive Data was last revised on 2018. Eosinophil pct 2.7 % [facility] Comment: Interpretive Data Percent cell count reference ranges are not reported, since discordance with absolute values may lead to misinterpretation of CBC data. Current Interpretive Data was last revised on 2018. Basophil pct 0.7 % [facility] Comment: Interpretive Data Percent cell count reference ranges are not reported, since discordance with absolute values may lead to misinterpretation of CBC data. Current Interpretive Data was last revised on 2018. Blood 10/17/2022 5:08 PM [employer] 10/17/2022 5:51 PM [facility] LAB BLOOD ORDERABLES Fin al Result Performing Organization Address City/[facility]/ZIP Co de Phone Number [facility] Department of [employer] [address] * (ABNORMAL) CBC with auto differential (10/17/2022 5:08 PM [employer]) WBC 11.7(H) 3.8 - 9.9 K/cumm [facility] Hgb 12.0 11.9 - 15.5 g/dL [facility] Hct 39.4 35.6 - 45.5 % [facility] Plt 423(H) 150 - 400 K/cumm [facility] MPV 8.4(L) 9.1 - 12.3 fL [facility] RBC 4.56 3.90 - 5.20 M/cumm [facility] MCV 86.4 81.3 - 96.4 fL [facility] MCH 26.3(L) 27.1 - 33.3 pg [facility] MCHC 30.5(L) 32.3 - 35.7 g/dL [facility] RDW CV 14.6 11.1 - 14.9 % [facility] RDW SD 45.9 35.7 - 48.1 fL [facility] NRBC abs 0.00 0.00 - 0.01 K/cumm [facility] Blood 10/17/2022 5:08 PM [employer] 10/17/2022 5:51 PM [employer] Michael Jackson MD LAB BLOOD ORDERABLES Fin al Result Performing Organization Address [facility]/ZIP Co de Phone Number [facility] [employer] [address] * Comprehensive metabolic panel (10/17/2022 5:08 PM [employer]) Sodium 143 135 - 145 mmol/L [facility] Potassium, pl 4.2 3.3 - 4.9 mmol/L [facility] Chloride 106 97 - 110 mmol/L [facility] CO2 26 22 - 32 mmol/L [facility] Anion gap 11 2 - 15 mmol/L [facility] BUN 22 8 - 25 mg/dL [facility] Creatinine 0.91 0.60 - 1.10 mg/dL [facility] Glucose 122 70 - 199 mg/dL [facility] Comment: Interpretive Data Fasting glucose >/= 126 mg/dl is diagnostic for diabetes. ?? Fasting is defined as no caloric intake for at least 8 hours. Fasting glucose between 100 mg/dl to 125 mg/dl is diagnostic of prediabetes. In a patient with classic symptoms of hyperglycemia or hyperglycemic crisis, a random glucose >/= 200 mg/dl is diagnostic for diabetes. In the absence of unequivocal hyperglycemia, results should be confirmed by repeat testing. The classification and Diagnosis of Diabetes Diabetes Care 2017;40 (Suppl. 1):S11. Current interpretive data was last revised 2017. Calcium 10.0 8.5 - 10.3 mg/dL [facility] Bilirubin, total 0.2 0.1 - 1.2 mg/dL [facility] Protein, pl 8.2 6.5 - 8.5 g/dL [facility] Albumin 4.4 3.5 - 5.0 g/dL [facility] Alk phos 95 40 - 130 Units/L [facility] ALT 21 7 - 45 Units/L [facility] AST 18 10 - 45 Units/L [facility] Blood 10/17/2022 5:08 PM [employer] 10/17/2022 5:51 PM [employer] us Premal Elia Jackson MD LAB BLOOD ORDERABLES Fin al Result [facility] Department [place] [address] documented in this encounter Visit Diagnoses Diagnosis Cyst of left ovary Other and unspecified ovarian cyst documented in this encounter Care Teams Fax Machine Repairer Relationship Specialty Start Date End Date Andrei Clark MD PCP - General Internal Medicine 12/11/20 Kandace Freedman OT [address] [place] [address] Occupational Therapist Occupational Therapy 03/15/21 Christina Brunson MD [address] [place] [address] Obstetrics and Gynecology 08/02/22 documented as of this encounter
--- OUTSIDE RECORDS SUMMARY | 2024-11-17 14:26 | XMS_ITS | Encounter Summary ---
Author Organization [facility] Healthcare Address [address] [place] [address] Care Team Providers Care Energy Trading Analyst Name Role Phone Andrei Clark MD Primary Care Provider [phone] Kandace Freedman OT Unavailable [phone] Christina Brunson MD Unavailable [phone] Encounter Details Date Type Department Care Team (Latest Contact Info) Description 04/03/2024 7:21 PM CDT - 04/03/2024 11:59 PM CDT Hospital Encounter 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 Gender Identity Not on file Sexual Orientation Not on file documented as of this encounter Medications at Time of Discharge acetaminophen (TYLENOL) 500 mg tabletIndication s:Pain Take 2 tablets (1,000 mg total) by mouth every 6 (six) hours as needed for pain 30 tablet 09/30/2022 ALBUTEROL SULFATE INHAL Inhale 1 puff daily as needed aspirin 81 mg enteric coated tablet Take 1 tablet (81 mg total) by mouth every morning 12/28/2020 buPROPion XL (WELLBUTRIN XL) 150 mg 24 hr tablet Take 1 tablet (150 mg total) by mouth every morning 06/21/2021 dapagliflozin (FARXIGA) 10 mg tablet Take 1 tablet (10 mg total) by mouth every morning doxepin (SINEquan) 10 mg capsule 10/14/2022 ferrous sulfate (IRON ORAL) Take 1 tablet by mouth every morning ibuprofen (ADVIL,MOTRIN) 600 mg tablet Take 1 tablet (600 mg total) by mouth every 6 (six) hours as needed for pain 30 tablet 09/30/2022 lactulose 0.67 gram/mL solution Take by mouth daily as needed 07/18/2022 losartan (COZAAR) 100 mg tablet Take 1 tablet (100 mg total) by mouth every morning 08/01/2022 metFORMIN XR (GLUCOPHAGE XR) 500 mg 24 hr tablet Take 1 tablet (500 mg total) by mouth daily with breakfast methocarbamoL (ROBAXIN) 750 mg tablet Take 1 tablet (750 mg total) by mouth 3 (three) times a day as needed 07/22/2022 omeprazole (PriLOSEC) 20 mg capsule 02/27/2024 oxyCODONE (ROXICODONE) 5 mg immediate release tabletIndication s:Pain Take 1 tablet (5 mg total) by mouth every 4 (four) hours as needed for pain 10 tablet 09/30/2022 rosuvastatin (CRESTOR) 10 mg tablet Take 1 tablet (10 mg total) by mouth every morning 07/16/2020 senna (SENOKOT) 8.6 mg tablet Take 1 tablet by mouth daily traZODone (DESYREL) 100 mg tablet Take 1 tablet (100 mg total) by mouth nightly as needed TRESIBA 200 unit/mL (3 mL) pen for injection Inject 0.2 mL (40 Units total) under the skin bedtime 01/26/2021 Trulicity 3 mg/0.5 mL pen injector 03/27/2024 valACYclovir (VALTREX) 500 mg tablet valacyclovir 500 mg tablet TAKE 1 TABLET BY MOUTH TWICE DAILY FOR 7 DAYS (NEEDS APPT FOR FURTHER REFILLS) documented as of this encounter Discharge Disposition Disposition Code Departure Means Destination Discharge to home or self care documented in this encounter Plan of Treatment Not on file documented as of this encounter Procedures Procedure Name Priority Date/Time Associated Diagnosis Comments CT BODY OUTSIDE CONSULT Routine 04/03/2024 7:21 PM CDT Diagnosis unknown documented in this encounter Results * CT Body Outside Consult (04/03/2024 7:21 PM CDT) Anatomical Region Laterality Modality Body N/A Computed Tomogra phy 04/04/2024 8:15 AM CDT Impressions 04/04/2024 8:15 AM CDT 1. ??Mildly enlarged right ovary containing a corpus luteum cyst and other small cystic lesions. ??Given the patient's age, these are probably physiologic cysts, and on previous studies, she has had right ovarian cysts of varying sizes. ??Given reported concern for underlying neoplasm, a conservative approach would be to repeat an ultrasound within a few months to evaluate for interval change. The findings, conclusions and recommendations within this report do not replace the initial findings, conclusions ??and recommendations made at the facility where the study was performed based upon the imaging and clinical condition at that time. ??Comparison with the prior report and clinical history is necessary. ??The provided images may or may not represent the [place] source data set and thus may contain changes that may lower the accuracy of this second-opinion interpretation. Electronically signed by: Howard Bartholomew M.D. Narrative 04/04/2024 8:15 AM CDT EXAMINATION: RADIOLOGY CONSULTATION ON OUTSIDE IMAGING STUDY STUDY INITIALLY PERFORMED: 02/24/2024 at [place], [place]. TYPE OF STUDY: Multiple CT images of the abdomen and pelvis with intravenous contrast are provided at the time of this interpretation. CONTRAST ROUTE: Contrast was administered via the intravenous route. The protocol was adequate to address the clinical question. The outside final report was not available at the time of this second opinion interpretation. TYPE OF CONSULTATION: Consult on outside imaging study with images submitted through Outside Image Sharing Service DATE OF CONSULTATION: 04/04/2024 8:08 AM HISTORY: Left ovarian serous cystadenoma , resected in 2021. ??Now abnormal right ovary on imaging. COMPARISON: 10/20/2022 FINDINGS: Within the lung bases, there is no pleural effusion, pneumothorax, or consolidation. ??Mild cardiomegaly with trace pericardial effusion. No focal liver lesion is identified. ??There is no biliary duct dilatation. ??Surgically absent gallbladder. ??Unchanged 1.2 cm left adrenal nodule, probable adenoma. ??Normal pancreas and right adrenal gland. ??Normal splenic size. Both kidneys have benign-appearing cysts and other subcentimeter lesions that are too small to characterize but are likely cysts also. The abdominal aorta is normal in caliber. ??There are changes from a left salpingectomy/nephrectomy. ??The right ovary is mildly enlarged and has a corpus luteum cyst and several other additional sub-3 cm cysts. ??Normal-appearing uterus with the exception of a calcified fibroid in the lower uterine segment. There is no abdominal or pelvic lymphadenopathy. ??Decompressed urinary bladder. ??No free intraperitoneal fluid or free gas. ??Colonic diverticulosis is present without diverticulitis. ??No peritoneal or omental nodularity. ??Normal appendix. No suspicious bone lesion or fracture. Procedure Note Howard Bartholomew MD - 04/04/2024 EXAMINATION: RADIOLOGY CONSULTATION ON OUTSIDE IMAGING STUDY STUDY INITIALLY PERFORMED: 02/24/2024 at [place], [place]. TYPE OF STUDY: Multiple CT images of the abdomen and pelvis with intravenous contrast are provided at the time of this interpretation. CONTRAST ROUTE: Contrast was administered via the intravenous route. The protocol was adequate to address the clinical question. The outside final report was not available at the time of this second opinion interpretation. TYPE OF CONSULTATION: Consult on outside imaging study with images submitted through Outside Image Sharing Service DATE OF CONSULTATION: 04/04/2024 8:08 AM HISTORY: Left ovarian serous cystadenoma , resected in 2021. Now abnormal right ovary on imaging. COMPARISON: 10/20/2022 FINDINGS: Within the lung bases, there is no pleural effusion, pneumothorax, or consolidation. Mild cardiomegaly with trace pericardial effusion. No focal liver lesion is identified. There is no biliary duct dilatation. Surgically absent gallbladder. Unchanged 1.2 cm left adrenal nodule, probable adenoma. Normal pancreas and right adrenal gland. Normal splenic size. Both kidneys have benign-appearing cysts and other subcentimeter lesions that are too small to characterize but are likely cysts also. The abdominal aorta is normal in caliber. There are changes from a left salpingectomy/nephrectomy. The right ovary is mildly enlarged and has a corpus luteum cyst and several other additional sub-3 cm cysts. Normal-appearing uterus with the exception of a calcified fibroid in the lower uterine segment. There is no abdominal or pelvic lymphadenopathy. Decompressed urinary bladder. No free intraperitoneal fluid or free gas. Colonic diverticulosis is present without diverticulitis. No peritoneal or omental nodularity. Normal appendix. No suspicious bone lesion or fracture. IMPRESSION: 1. Mildly enlarged right ovary containing a corpus luteum cyst and other small cystic lesions. Given the patient's age, these are probably physiologic cysts, and on previous studies, she has had right ovarian cysts of varying sizes. Given reported concern for underlying neoplasm, a conservative approach would be to repeat an ultrasound within a few months to evaluate for interval change. The findings, conclusions and recommendations within this report do not replace the initial findings, conclusions and recommendations made at the facility where the study was performed based upon the imaging and clinical condition at that time. Comparison with the prior report and clinical history is necessary. The provided images may or may not represent the [place] source data set and thus may contain changes that may lower the accuracy of this second-opinion interpretation. Electronically signed by: Howard Bartholomew M.D. [facility] Elia Jackson MD IMG CT PROCEDURES Final Result documented in this encounter Visit Diagnoses Diagnosis Diagnosis unknown documented in this encounter Care Teams Energy Trading Analyst Relationship Specialty Start Date End Date Andrei Clark MD PCP - General Internal Medicine 12/11/20 Kandace Freedman OT [address] [place] [address] Occupational Therapist Occupational Therapy 03/15/21 Christina Brunson MD [address] [place] [address] Obstetrics and Gynecology 08/02/22 documented as of this encounter
--- OUTSIDE RECORDS SUMMARY | 2024-11-17 14:26 | XMS_ITS | Encounter Summary ---
Author Organization [facility] Address [address] [place] [address] Phone Care Team Providers Care Orthopedics Pediatric Physician Name Role Phone Andrei Clark MD Primary Care Provider [phone] Kandace Freedman OT Unavailable [phone] Christina Brunson MD Unavailable [phone] Reason for Visit * Reason Comments Follow-up Encounter Details Date Type Department Care Team (Late st Contact Info) Description 04/01/2024 1:30 PM CDT Office Visit [facility] Obstetrics and Gynecology [address] [facility] 13th [place] [address] [place] [address] Michael Jackson MD [address] [facility] [id number] [place] [address] Abnormal uterine bleeding (AUB) (Primary Dx); Right ovarian cyst; Pelvic pain Social History Tobacco Use Types Packs/Day Years Used Date Smoking Tobacco: Former Cigarettes Q uit: 06/2020 Smokeless Tobacco: Never Tobacco Cessation:Counseling Given: Not Answered Alcohol Use Standard Drinks/Week Comments Never 0 [...] on file 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 Gender Identity Not on file Sexual Orientation Not on file documented as of this encounter Last Filed Vital Signs Vital Sign Reading Time Taken Comments Blood Pressure 152/82 04/01/2024 1:47 PM CDT Pulse 80 04/01/2024 1:47 PM CDT Temperature 36.8 ??C (98.2 ??F) 04/01/2024 1:47 PM CD T Respiratory Rate 16 04/01/2024 1:47 PM CDT Oxygen Saturation 96% 04/01/2024 1:47 PM CDT Inhaled Oxygen Concentration - - Weight 91.4 kg (201 lb 9.6 oz) 04/01/2024 1:47 P M CDT Height 165 cm (5' 4.96 ) 04/01/2024 1:47 PM CDT Body Mass Index 33.59 04/01/2024 1:47 PM CDT documented in this encounter Progress Notes * Michael Jackson MD - 04/01/2024 12:00 AM CDT PATIENT: KYLEE FIGUEROA : 1985 BRITTANY: 04/01/2024 REASON FOR VISIT: Right adnexal mass. HISTORY OF PRESENT ILLNESS: Ms. Figueroa is a 38-year-old female who originally I saw her secondary to her having had left lower quadrant pain, which demonstrated that she had an 11.8 x 8.4 cystic mass with multiple septations on her left ovary. She had normal tumor markers. The right ovary was normal. Therefore, the patient on 09/30/2022, underwent a diagnostic laparoscopy, left salpingo oophorectomy, right salpingectomy, right ovarian cystectomy, lysis of adhesions greater than 60 minutes, staging biopsies, and pelvic washings. The patient's final pathology revealed that she had a serous cystadenoma. The right cyst wall was a corpus luteum and all the biopsies were unremarkable. The patient had a postoperative CT since she was complaining of discomfort on 10/20/2022, which showed interval enlargement of a multi-septated right ovarian cystic lesion measuring 5.6 cm. Otherwise, there were no other abnormalities. The patient recently went to the emergency room on 03/05/2024 secondary to severe right lower quadrant pain that woke her up. The patient had a CT scan of the abdomen and pelvis performed which showed a 13 mm indeterminate left adrenal mass. The pelvis had a fibroid uterus with a corpus luteum and multiple probably simple cysts in the right ovary. The patient had an ultrasound performed on the same day, which demonstrates that the uterus measures 8.9 x 8.9 x 4.6 cm with myometrial calcification, likely degenerative fibroid and multiple nabothian cysts. The endometrial complex was 9 mm. The right ovary had a 4.8 x 4.5 x 2.9 cm cyst. There was a non-simple 2.5 cm ovarian lesion with non-dependent nodularity and wall thickening containing vascular flow. There were multiple adjacent simple cysts and dominant follicles ranging in size from 0.7 to 1.9 cm. Alternatively, these findings may relate to a single complex right ovarian mass measuring up to 3.7 cm with multiple septi of irregular thickness and/or papillary vascularity. The patient had tumor markers performed on 03/05/2024. Her alpha-fetoprotein was normal at 2.3, her CEA was 0.6. Her CA-19-9 was 5. Her CA-125 was 24.3. Her inhibin A was 34.4 and inhibin B was less than 7. Due to the fact that the patient had this right adnexal cyst, the patient is sent to [facility]. The patient's primary care physician, Dr. Clark, has performed 2 CT scans per the patient's report, and both CT scans showed that the adrenal gland was not concerning for a cancer. The patient presents today and has a multitude of complaints. The patient feels that her [id number] was last checked 5 months ago but was noted to be improved at 7.4. The patient does complain ofhaving left lower quadrant pain with her menstrual cycle which is paralyzing. The patient takes an oxycodone occasionally. However, this makes her quite sleepy and therefore since she has to work shedoes not take it routinely. The patient also complains of fatigue. She has shortness of breath. Thepatient complains of constipation and has a bowel movement every week. The patient states this is been going on for 6 to 7 months. She has been trying to eat more wheat products and fiber. Of note, the patient has gastroparesis issues and had what sounds like a pellet study. The patient has occasional pain with urination. She has abdominal pain and bloating with her menstrual cycles. The patient has numbness in her left hand and arm. She does complain of headaches. The patient complains of irregular vaginal bleeding between her menstrual cycles. Her menstrual cycle just started on 03/31/2024.The patient states that immediately after surgery, she was having regular menstrual cycles and no intermenstrual bleeding. The patient has not required any blood transfusions. The patient is currently not in a relationship sexually. PAST MEDICAL HISTORY: 1. Obesity at a BMI of 33.6 kg/m??. 2. Hypertension. 3. History of anemia, but never required a blood transfusion. 4. Diabetes, but no recent hemoglobin A1c. 5. Focal awareness seizures. 6. Intracranial hypertension causing headaches. 7. GERD. 8. Gastroparesis. 9. 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 10. Hereditary stage 3 kidney problems. 11. Fatty liver. 12. Osteoarthritis. 13. Probable sleep apnea, but never tested. PAST SURGICAL HISTORY: 1. section in 2001, another in 2003. 2. Laparoscopic cholecystectomy in 2005. 3. Tubal ligation with her section in 2003. 4. 2021, a laparoscopic left salpingo-oophorectomy, right ovarian cystectomy, lysis of adhesions greater than 60 minutes, staging biopsies and pelvic washings. ALLERGIES: Allergic to 4 medications for nausea, which are metoclopramide, ondansetron, Phenergan, and Compazine. MEDICATIONS: Please see Epic. 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 Her last Pap smear was in April 2022. She started having menarche at the age of 48 with regular menstrual cycles every 28 days lasting 5 to 7 days. HEALTH MAINTENANCE: Not updated. SOCIAL HISTORY: The patient used to smoke a pack per day off and on for 25 years and quit approximately close to 3 years ago. She formerly used to drink. FAMILY HISTORY: Was not updated. PHYSICAL EXAMINATION: Vital Signs: Her blood pressure is 152/82, pulse is 80, respirations are 16. Her weight is 201 pounds for a BMI of 33.6 kg/m??. Of note, the patient had only been formally consented for an endometrial biopsy General Appearance: The patient is a well-developed, well-nourished female in no acute distress. HEENT: Atraumatic, normocephalic, PERRLA, EOMI, EENT: Within normal limits. Neck is supple, withoutthyromegaly or JVD. LN Survey: No supraclavicular, inguinal, or femoral lymphadenopathy. Lungs: Clear to auscultation bilaterally. Heart: Regular rate and rhythm. Positive S1/S2. Breasts: Deferred. Back: No CVA or paraspinal tenderness. Abdomen: Soft, nontender, nondistended, obese. Well-healed laparoscopic incisions. Extremities: No clubbing, cyanosis, or edema. Neurologic: The patient is awake, alert, and oriented x 3. Pelvic Exam: External genitalia: Within normal limits. Urethra: Without masses or tenderness. Urethral meatus: Without any lesions or prolapse. Bladder: No masses or tenderness. Vulva: Normal. Speculum Exam: There were no abnormalities noted, but there is old blood. Written consent was already obtained. The anterior lip of the cervix was grasped with a single-tooth tenaculum. Since the patient was on her menstrual cycle, a repeat urine test was not performed. The uterus soundedto approximately 6 cm. Two passes were taken without difficulty. There was noted to be blood and tissue mixed. All instruments were removed without difficulty. Bimanual: The cervix feels normal in size, shape, and consistency. Uterus feels normal in size. The left adnexa is surgically absent. The right adnexa cannot be palpated. Rectovaginal: Exam was deferred. ASSESSMENT AND PLAN: A 38-year-old female with the following issues: 1. Pelvic pain: The patient was made aware that her pelvic pain seems to be more likely due to hormonal surges as it occurs during menstruation. The patient wonders whether her empty sella syndrome might be contributing. Therefore, she was encouraged to talk to her core stacker regarding this. 2. Right ovarian cyst: The patient's outside read is consistent with O-RADS 4. We will need to havea repeat ultrasound performed here. The patient was made aware that it is really ideal that the patient continues to keep her ovary in situ since her left ovary is surgically absent and with her other comorbidities. Therefore, we will repeat the ultrasound in order to determine whether this really is an O-RADS 4 that warrants further evaluation versus this is just physiologic. 3. Diabetes: The patient will need a repeat hemoglobin A1c. 4. Abnormal uterine bleeding: The patient's endometrial biopsy will be followed up upon. 5. Pap smear: The patient is not due for another Pap smear until another year. 6. Follow-up will be in approximately 2 to 3 weeks' time. 7. Adrenal gland abnormality: The patient had this worked up with her primary, Dr. Clark. ELECTRONICALLY SIGNED - 04/02/2024 02:31 PM Michael Jackson M.D. Isabella Avalos Distinguished Professor of Obstetrics & Gynecology Director of Gynecologic Oncology Clinical Research Professor in Gynecologic Oncology [facility] [employer] T//#[id number] documented in this encounter Miscellaneous Notes * Treatment Plan - Michael Jackson MD - 04/01/2024 1:30 PM CDT Please schedule Kylee Figueroa for the following: Requested Order Contrast Indication When CXR CT Chest, Abdomen, and Pelvis CT Abdomen and Pelvis LEEP (during clinic hours) MEDICAL ASSISTANT PRN Ultrasound X 2 weeks and follow up MRI Mammogram PET Initiate Survivoship Care Plan Surveillance Labs (CBC w/ Diff, CMP, Magnesium, CA125) Labwork: Dee review of ct scan of abd/pelvis x documented in this encounter Plan of Treatment Scheduled Orders Name Type Priority Associated Diagnoses Orde r Schedule Surgical pathology Pathology and Cytology Routine Abnormal uterine bleeding (AUB) Expected: 04/01/2024, Expires: 04/01/2025 documented as of this encounter Visit Diagnoses Diagnosis Abnormal uterine bleeding (AUB)- Primary Right ovarian cyst Other and unspecified ovarian cyst Pelvic pain documented in this encounter Discontinued Medications Medication Sig Discontinue Reason Start Date End Da te Trulicity 4.5 mg/0.5 mL pen injector Inject 4.5 mg under the skin once a week Duplicate order 08/08/2022 04/01/2024 documented as of this encounter Historical Medications * This list may reflect changes made after this encounter. Medication Sig Dispense Quantity Refills Last Filled Start D ate End Date Trulicity 3 mg/0.5 mL pen injector 03/27/2024 omeprazole (PriLOSEC) 20 mg capsule 02/27/2024 added in this encounter Care Teams Orthopedics Pediatric Physician Relationship Specialty Start Date End Date Andrei Clark MD PCP - General Internal Medicine 12/11/20 Kandace Freedman OT [address] [place] [address] Occupational Therapist Occupational Therapy 03/15/21 Christina Brunson MD [address] [place] [address] Obstetrics and Gynecology 08/02/22 documented as of this encounter
--- OUTSIDE RECORDS SUMMARY | 2024-11-17 14:26 | XMS_ITS | Encounter Summary ---
Author Organization [facility] Address [address] [place] [address] Phone Care Team Providers Care Target Protection Specialist Name Role Phone Andrei Clark MD Primary Care Provider [phone] Kandace Freedman OT Unavailable [phone] Christina Brunson MD Unavailable [phone] Encounter Details Date Type Department Care Team (Late st Contact Info) Description 04/01/2024 Orders Only [facility] [address] [place] [address] Michael Jackson MD [address] [facility] [id number] [place] [address] Social History Tobacco Use Types Packs/Day Years [...] on file 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 [address] [place] [address] Note to Patients: This report may contain a detailed description of human tissue sent by a health care provider to the laboratory for pathologic evaluation. The content of this report is essential for diagnosis and may provide important critical findings. This information may be unfamiliar to patients to review without a medical professional present. It is advised that the patient review this report in the presence of a health care provider who can answer questions and explain the details. SURGICAL PATHOLOGY REPORT FINAL Patient Name: ??EMMA FIGUEROA Address: ??[address] [place] [id number] Gender: ??F : ??1985 (Age: 38) Service: ??[facility] Location: ??[facility] Hospital #: ??[id number] Accession #: ? [id number] Taken: ? 04/01/2024 Received: ? 04/01/2024 Accessioned: ? 04/01/2024 Reported: ? 04/03/2024 Physician(s): ? Michael Jackson M.D. Diagnosis: Uterus, endometrium, biopsy ? - Proliferative pattern endometrium with breakdown ? - No evidence of hyperplasia or malignancy [facility]/04/03/2024 08:53 By this signature, I attest that the above diagnosis is based upon my personal examination of the slides(and/or other material indicated in the diagnosis). Viri Roberto M.D. Report Electronically Reviewed and Signed Out By Viri Roberto M.D. 04/03/2024 16:36:13 Microscopic Description and Comment: 1 Harry Kolb MD History: The patient is a 38-year-old woman with history of abnormal uterine bleeding. Operative procedure: Endometrial biopsy. Specimen(s) Received: A: Endometrium Gross Description: The specimen is received in a formalin-filled container labeled Brant, Emma and embx. ??It contains multiple fragments of hirsch and hemorrhagic tissue mixed with mucous measuring 2.7 x 1.9 x 0.3 cm in aggregate. ??Labeled A1. ??Jar 0. Jaky Rito ??bxm/04/02/2024 12:55 Pathology services are provided by the Department of Pathology and Immunology at [facility], [address] [place] [address] CLIA # [id number] The performance characteristics of the testing cited in this report (if any) were determined by the ??[facility] Department of Pathology and Immunology [facility], as part of an ongoing quality measurement specialist program and in compliance with federally mandated regulations drawn from the Clinical Laboratory Improvement Act of 1988 (CLIA '88). ??Some of these tests rely on the use of analyte specific reagents (ASR) and are subject to specific labeling requirements by the US Food and Drug Administration. ??Such diagnostic tests may only be performed in a facility that is certified by the Department of Health and Human Services as a high complexity laboratory under CLIA '88. ??The FDA has determined that such clearance or approval is not necessary. ??ASRs should not be regarded as investigational or for research. ??ASRs were developed and the performance characteristics determined by the [facility], [facility] Department of Pathology and Immunology. ??It has not been cleared or approved by the U.S. Food and Drug Administration. ??Any test designated as LDT was developed and its performance characteristics determined by [facility]. It has not been cleared or approved by the FDA. This test is used for clinical purposes and should not be regarded as investigational or for research. us Premal Elia Jackson MD LAB PATHOLOGY ORDERABLES Final Result documented in this encounter Visit Diagnoses Not on filedocumented in this encounter Care Teams Target Protection Specialist Relationship Specialty Start Date End Date Andrei Clark MD PCP - General Internal Medicine 12/11/20 Kandace Freedman OT [address] [place] [address] Occupational Therapist Occupational Therapy 03/15/21 Christina Brunson MD [address] [place] [address] Obstetrics and Gynecology 08/02/22 documented as of this encounter
--- OUTSIDE RECORDS SUMMARY | 2024-11-17 14:26 | XMS_ITS | Clinical Summary ---
Author Organization [facility] [place] [address] Address [address] [place] [address] Care Team Providers Care Rn Palliative Name Role Phone Andrei Clark MD Primary Care Provider [phone] Kandace Freedman OT Unavailable [phone] Christina Brunson MD Unavailable [phone] Allergies Active Allergy Reactions Criticality Noted Date Comments Adhesive Itching Low 09/21/2022 Metoclopramide Anxiety Low 10/19/2013 Other reaction(s): panic attack Ondansetron Anxiety Low 10/19/2013 Promethazine Anxiety Low 02/04/2019 Prochlorperazine Anxiety Low 10/19/2013 Medications aspirin 81 mg enteric coated tablet Take 1 tablet (81 mg total) by mouth every morning 1 Active rosuvastatin (CRESTOR) 10 mg tablet Take 1 tablet (10 mg total) by mouth every morning 0 Active metFORMIN XR (GLUCOPHAGE XR) 500 mg 24 hr tablet Take 1 tablet (500 mg total) by mouth daily with breakfast Active TRESIBA 200 unit/mL (3 mL) pen for injection Inject 0.2 mL (40 Units total) under the skin bedtime 1 Active dapagliflozin (FARXIGA) 10 mg tablet Take 1 tablet (10 mg total) by mouth every morning Active traZODone (DESYREL) 100 mg tablet Take 1 tablet (100 mg total) by mouth nightly as needed Active buPROPion XL (WELLBUTRIN XL) 150 mg 24 hr tablet Take 1 tablet (150 mg total) by mouth every morning 1 Active lactulose 0.67 gram/mL solution Take by mouth daily as needed 2 Active losartan (COZAAR) 100 mg tablet Take 1 tablet (100 mg total) by mouth every morning 2 Active methocarbamoL (ROBAXIN) 750 mg tablet Take 1 tablet (750 mg total) by mouth 3 (three) times a day as needed 2 Active valACYclovir (VALTREX) 500 mg tablet valacyclovir 500 mg tablet TAKE 1 TABLET BY MOUTH TWICE DAILY FOR 7 DAYS (NEEDS APPT FOR FURTHER REFILLS) Active senna (SENOKOT) 8.6 mg tablet Take 1 tablet by mouth daily Active ferrous sulfate (IRON ORAL) Take 1 tablet by mouth every morning Active ALBUTEROL SULFATE INHAL Inhale 1 puff daily as needed Active ibuprofen (ADVIL,MOTRIN) 600 mg tablet Take 1 tablet (600 mg total) by mouth every 6 (six) hours as needed for pain 30 tablet 2 Active Additional Information Patient not taking.Reported on 05/13/2024 acetaminophen (TYLENOL) 500 mg tabletIndicatio ns:Pain Take 2 tablets (1,000 mg total) by mouth every 6 (six) hours as needed for pain 30 tablet 2 Active oxyCODONE (ROXICODONE) 5 mg immediate release tabletIndicatio ns:Pain Take 1 tablet (5 mg total) by mouth every 4 (four) hours as needed for pain 10 tablet 2 Active doxepin (SINEquan) 10 mg capsule 2 Active omeprazole (PriLOSEC) 20 mg capsule 4 Active Trulicity 3 mg/0.5 mL pen injector 4 Active Active Problems Problem Noted Date Diagnosed Date Adrenal mass 04/01/2024 Hypercortisolism 04/03/2023 Abnormal movements 10/11/2022 Type 2 diabetes mellitus with hyperglycemia (CMS /HCC) 09/29/2022 Adnexal cyst 08/31/2022 Abnormal C-reactive protein 08/29/2022 Chronic depression 08/29/2022 Elevated antinuclear antibody (BOBBY) level 2021 Fibromyalgia 08/29/2022 Iron deficiency anemia 08/29/2022 Psychologic conversion disorder 08/29/2022 Severe recurrent major depressive disorder with psychosis 08/29/2022 Stage 3a chronic kidney disease 08/29/2022 Uncontrolled type 2 diabetes mellitus 03/31/2022 Atherosclerotic heart diseas e of [place] coronary artery without angina pectoris 12/31/2020 Unspecified abnormal involuntary movements 12/30 Assessment & Plan (07/02/2021 3:40 PM CDT): She has abnormal involuntary movements including vocalizations, stuttering, single movements, jerks and posturing of head, neck, trunk, and limbs with variable involvement, speed, amplitude, and repetition as well as an odd gait where she doesn't bend her knees. She did not resist during strength testing. By history she also has periods of inattention or decreased responsiveness though she does not lose consciousness. These spells are not typical of seizure and recent EEG was negative. The etiology is not clear at this time. 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 We briefly discussed the nature and approach to management of Functional Neurological Disorders including psychotherapy, cognitive behavioral therapy, and medication management of mood symptoms. MRI in the past year was normal except for a pituitary abnormality. She has burning pain but in the past, gabapentin caused high blood pressures. She sees psychiatry for anxiety, depression and BPD and is on several meds but depression and anxiety are problematic and likely make the functional movements worse. In the past, Valium has helped these but her psychiatrist has been unwilling to give her a prescription unless he hears from us that this would be okay. I will discuss this with Dr. Pérez. Recs: 1. Call [facility] (she understands she needs to be the one to call) for CBT for FND, anxiety, depression. 2. Consider Valium after I discuss with Dr. Pérez. 3. Continue with psychiatry. 4. Start positive self talk and meditative exercises for spells . 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 By history she also has periods of inattention or decreased responsiveness. The etiology is not clear at this time. 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 We briefly discussed the nature and approach to management of Functional Neurological Disorders including psychotherapy, cognitive behavioral therapy, and medication management of mood symptoms. I think it is reasonable to proceed with video EEG (scheduled for next month at [facility]) to clarify whether any aspect of these spells is epileptic, and then to proceed from there with outpatient follow up, either with epilepsy, movement, or general neurology clinic. I will be available to discuss video EEG results with the inpatient team following that testing and we can coordinate follow up plans. I counseled her not to drive or participate in any other potentially dangerous activities for 6 months following any unexplained loss of consciousness. Tension headache 07/02/2020 Severe major depression, sin gle episode, without psychotic features 01/09/2020 Anxiety disorder 10/31/2019 Bipolar disorder 10/31/2019 Hyperlipidemia 10/31/2019 Migraine 10/31/2019 Class 2 obesity 10/31/2019 Primary hypertension 10/31/2019 Smoker 10/31/2019 Insulin dependent diabetes mellitus 08/23/2019 Idiopathic intracranial hypertension 02/15/2019 Assessment & Plan (02/15/2019 5:31 PM CDT): New diagnosis in past few months. Repeat [...] OCT nerve OU, HVF 24-2, repeat DFEx Hypertensive retinopathy of both eyes 02/15/2019 Assessment & Plan (02/15/2019 5:32 PM CDT): Pt with vascular changes, CWS and small flame hemorrhages OU -- no macular edema on OCT or DFEx today -- discussed good control of DM2, HTN -- annual DFEx Type 2 diabetes mellitus wit hout complication, without long-term current use of insulin ([facility]) 04/04/2017 Polycystic ovaries 04/04/2017 Hypertensive chronic kidney disease 03/29/2017 Hematuria 03/29/2017 Polycystic kidney disease 03/29/2017 Stage 1 chronic kidney disease 03/29/2017 Right flank pain 10/21/2013 Pyelonephritis 10/19/2013 Immunizations Name Administration Dates Next Due Pneumococcal Polysaccharide PPV23 06/01/2019 Tetanus Toxoid, Unspecified 11/20/2004 Surgical History Surgery Date Site/Laterality Comments SECTION 11/20/2001 - 11/19/2002 CHOLECYSTECTOMY TUBAL LIGATION LUMBAR PUNCTURE WO INJECTION , DIAGNOSTIC 02/11/2019 N/A SECTION 11/20/2003 - 11/19/2004 Medical History Medical History Date Comments Diabetes mellitus (HCC) Renal disorder Polycystic ovarian disease DVT (deep venous thrombosis) (CMS/[facility]) (HCC) Idiopathic intracranial hypertension Polycystic kidney disease CKD (chronic kidney disease) stage 2, GFR 60-89 ml/min Pituitary tumor Anemia Seizure (HCC) Frequent headaches GERD (gastroesophageal reflux disease) Arthritis Family History Medical History Relation Name Comments Obesity Child 1 Kidney disease Child 2 Diabetes Father Heart disease Father Hypertension Father Obesity Father Ovarian cancer Maternal Great-Grandmother Hypertension Mother Seizures Mother Breast cancer Other 1 Unknown on maternal side Kidney cancer Other 2 Unknown on maternal side Seizures Sister 1 No Known Problems Sister 2 Relation Name Status Comments Child 1 Alive Child 2 Alive Father Alive Maternal Great-Grandmother Mother Alive Other 1 Unknown on maternal side Other 2 Unknown on maternal side Sister 1 Alive Sister 2 Alive Social History Tobacco Use Types Packs/Day Years [...] on file Legal Sex Female 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 Gender Identity Not on file Sexual Orientation Not on file Obstetrics History Para Term AB IAB SAB Ectopic Multiple Livin g Live Births 2 2 2 2 2 Date Outcome GA Total Labor Labor/2nd/3rd Weight Sex Type Anes PTL Lexus A1 A5 Name Clin Term Term Last Filed Vital Signs Vital Sign Reading Time Taken Comments Blood Pressure 167/109 05/13/2024 9:21 AM CDT Pulse 103 05/13/2024 9:21 AM CDT Temperature 36.9 ??C (98.4 ??F) 05/13/2024 9:21 AM CD T Respiratory Rate 18 05/13/2024 9:21 AM CDT Oxygen Saturation 96% 05/13/2024 9:21 AM CDT Inhaled Oxygen Concentration - - Weight 94.8 kg (209 lb) 05/13/2024 9:21 AM CDT Height 165 cm (5' 4.96 ) 05/13/2024 9:21 AM CDT Body Mass Index 34.82 05/13/2024 9:21 AM CDT Plan of Treatment Health Maintenance Due Date Last Done Comments Albumin Creatinine Ratio, Urine 1983 Breast Cancer Screening-Mammogram 1983 Cervical Cancer Screening 1983 Depression Screening 1983 Hepatitis C Screening 1983 Foot Exam 1983 Lipid Panel 1983 DTaP/Tdap/Td Vaccine (1 - Tdap) 1994 Varicella Vaccines (1 of 2 - 13+ 2-dose series) 1996 Hepatitis B Screening 2001 Regular Well Visit/Exam 18-64 2001 Dilated Eye Exam 02/16/2020 02/15/2019, 02/07/2019 Hemoglobin A1C 02/22/2020 08/23/2019, 08/23/2019, 02/11/2019 Pneumococcal vaccine <65 (2 of 2 - PCV) 06/01/2020 06/01/2019 eGFR 10/17/2023 10/17/2022, 09/21/2022 Influenza Vaccine (#1) 2024 HPV Vaccines Aged Out No longer eligi ble based on patient's age to complete this topic Procedures Procedure Name Priority Date/Time Associated Diagnosis Comments EGFR Routine 10/17/2022 5:08 PM GAMING WORKER Cyst of left ovary HEMOGLOBIN A1C STAT 08/23/2019 5:28 PM CDT from Last 3 Months or Most Recently Relevant to Health Maintenance Results * (ABNORMAL) eGFR (10/17/2022 5:08 PM GAMING WORKER) eGFR 82(L) 90 - 130 mL/min/1. 73 [...] last reviewed 2021. Blood 10/17/2022 5:08 PM GAMING WORKER 10/17/2022 5:58 PM GAMING WORKER us Premal Elia Jackson MD LAB BLOOD ORDERABLES Fin al Result LUCIEN SAM [facility] [place] [address] * (ABNORMAL) Hemoglobin A1c (08/23/2019 5:28 PM CDT) Hgb A1C 11.1(H) 4.0 - 5.6 % LUCIEN SAM Estimated Average Glucose 272 mg/dL LUCIEN SAM Comment: The ADA recommends reporting an estimated Average Glucose (eAG) with all Hemoglobin A1c results using the equation derived from a study of 507 normal and diabetic adults. ??Minority populations were underrepresented and children were not included. ?? (Diabetes Care 31:9831-2290, 2008). ??The eAG is not equivalent to a fasting glucose. Blood specimen (specimen) 08/23/2019 5:28 PM CDT 08/23/2019 6:04 PM CDT us Notinfile Unknown LAB BLOOD ORDERABLES Final Res ult [facility] [address] [place] [address] from Last 3 Months or Most Recently Relevant to Health Maintenance Insurance [employer] [facility] [employer] [facility] [employer] Advance Directives For more information, please contact: [phone] * Full Code (Latest Code Status on File) Date Activated Date Inactivated Comments 01/25/2021 9:49 AM 01/31/2021 8:38 PM * Full Code Date Activated Date Inactivated Comments 02/11/2019 4:38 PM 02/13/2019 11:05 AM Care Teams Rn Palliative Relationship Specialty Start Date End Date Andrei Clark MD PCP - General Internal Medicine 12/11/20 Kandace Freedman OT [address] [place] [address] Occupational Therapist Occupational Therapy 03/15/21 Christina Brunson MD [address] [facility] [address] [place] [address] Obstetrics and Gynecology 08/02/22
--- OUTSIDE RECORDS SUMMARY | 2024-11-17 14:26 | XMS_ITS | Encounter Summary ---
Author Organization [facility] Healthcare Address [address] [place] [address] Care Team Providers Care Wire Rope Fabrication Supervisor Name Role Phone Andrei Clark MD Primary Care Provider [phone] Kandace Freedman OT Unavailable [phone] Christina Brunson MD Unavailable [phone] Reason for Visit * Auth/Cert Specialty Diagnoses / Procedures Referred By Tiburcio caicedo Referred To Contact Diagnoses Adnexal mass Adnexal mass [N94.89] Procedures MT LAP,RMV ADNEXAL STRUCTURE LAPAROSCOPY DIAGNOSTIC - OPERATIVE LAPAROSCOPIC SALPINGECTOMY LAPAROSCOPIC OOPHORECTOMY LAPAROSCOPIC TOTAL HYSTERECTOMY EXPLORATORY LAPAROTOMY Referral ID Status Reason Start Date Expiration Date Visits Re quested Visits Authorized [id number] 1 1 Encounter Details Date Type Department Care Team (Late st Contact Info) Description 09/30/2022 1:24 PM STUDENT TEACHER Anesthesia Event [facility] Operating Room [address] [place] [address] Mendel Marshall MD [address] [place] [address] Tracey Romero NP [address] [facility] [phone] [place] [address] Anesthesia Record Procedure Summary Procedure Name Responsible Anesthesiologist Anesthesia Start Time Anesthesia Stop Time LAPAROSCOPY DIAGNOSTIC - OPERATIVE (Abdomen) Mendel Marshall MD 09/30/22 1324 09/30/22 1652 Events Date Time Event Comment 09/30/2022 0853 In Preop 1324 An Start 1329 In Room 1330 An Start Data 1336 An Induction The patient was reevaluated immediately before moderate or deep sedation use and before anesthesia induction. 1339 An Intubation 1345 Anesthesia Ready 1347 Proc Start 1408 Incision Start 1640 Proc Fin 1644 An Extubation 1646 an stop data 1647 Out of Room 1652 Handoff to RN I completed my handoff to the receiving nurse during which we: 1. Patient identified 2. Responsible provider identified 3. Pertinent medical history reviewed 4. Procedure type and surgical course discussed 5. Intraoperative anesthetic management and any significant issues discussed 6. Expectations and concerns for postop period discussed 7. Questions solicited from receiving nurse 8. Patient disposition at the time of handoff: No value filed. 165 An Stop Meds Name Total midazolam PF 2 mg lidocaine (cardiac) syringe 2 % 100 mg propofol 220 mg propofol 1,641.53 mg fentaNYL 200 mcg HYDROmorphone 2 mg/mL 2 mg rocuronium 100 mg remifentaniL (ULTIVA) 2,000 mcg in sodium chloride 0.9% 40 mL (50 mcg/mL) infusion 1.15 mg dexAMETHasone 4 mg/mL 4 mg diphenhydrAMINE 12.5 mg famotidine 20 mg dexmedeTOMIDine 80mcg/20mL (4 mcg/mL) 40 mcg metoprolol 10 mg sugammadex 200 mg LR 400 mL Lactated Ringer's (LR) infusion 1,200 mL * Agents Name O2% N2O O2 N2O Air Sevoflurane Inspired Sevoflurane * Blood No blood administrations on file. Lines, Drains, and Airways Type Details Placement Removal Peripheral IV Placement Date: 09/30/22; Placement Time: 935; Catheter Size: 18 G; Orientation: Left, Posterior; Location: Wrist; Site Prep: Chlorhexidine; Technique: Anatomical landmarks; Inserted by: Shannen; Insertion Attempts: 1; Patient Tolerance: Tolerated well; Removal Date: 09/30/22; Removal Time: 214409/30/22935 by Shannen Gustafson RN 09/30/222144 by Maximo Jimenez RN RETIRED Surgical Site 09/30/22; 1327; Abdomen; 10/22/24 (Retired LDA, Removed/Completed by [email or web address] with LDA Utility); 1213 (Retired LDA, Removed/Completed by [facility] with LDA Utility) 09/30/22 1327 by Kelby Hays RN 10/22/24 1213 by Discharge Provider, Automatic ETT Placement Date: 09/30/22; Placement Time: 1432 (created via procedure documentation); Mask Ventilation: 1; Technique: Direct laryngoscopy; Type: ETT - single; Single Lumen Tube Size: 7 mm; Cuffed: Yes; Laryngoscope: Ilsa; Blade Size: 3; Grade View: Grade I; Insertion Attempts: 1; Placement Verification: Auscultation, Capnometry, Palpation of cuff; Removal Date: 09/30/22; Removal Time: 164309/30/221432 by Yajaira Pate CRNA 09/30/221643 by Keke Welsh CRNA Peripheral IV Placement Date: 09/30/22; Placement Time: 1432 (created via procedure documentation); Catheter Size: 18 G; Orientation: Left; Location: Antecubital; Site Prep: Chlorhexidine; Insertion Attempts: 1; Removal Date: 09/30/22; Removal Time: 214409/30/221432 by Yajaira Pate SECURITY SOFTWARE ENGINEER 09/30/222144 by Maximo Jimenez RN documented in this encounter Social History Tobacco Use Types Packs/Day Years [...] on file Legal Sex Female 4:48 PM STUDENT TEACHER Gender Identity Not on file Sexual Orientation Not on file documented as of this encounter OR Notes * Anesthesia Postprocedure Evaluation - Estefania Carty MD - 09/30/2022 8:29 PM CST Patient: Kylee Guo Procedure Summary Date: 09/30/22 Room / Location: [facility] OR POD 1 ROOM 327 / [facility] OR POD 1 Anesthesia Start: 1324 Anesthesia Stop: 1652 Procedures: LAPAROSCOPY DIAGNOSTIC - OPERATIVE (Abdomen) LAPAROSCOPIC SALPINGECTOMY (Bilateral: Abdomen) LAPAROSCOPIC OOPHORECTOMY (Left: Abdomen) CYSTECTOMY OVARIAN (Right: Pelvis) LYSIS OF ADHESIONS - GREATER THAN 60 MINUTES (Abdomen) STAGING BIOPSIES (Abdomen) Diagnosis: Adnexal mass (Adnexal mass [N94.89]) Surgeons: Michael Jackson MD Responsible Provider: Mendel Marshall MD Anesthesia Type: general ASA Status: 3 Anesthesia Type: general Last vitals BP 155/94 Pulse 90 Temp 36.2 ??C (97.2 ??F) (Transdermal) Resp 16 SpO2 96% Anesthesia Post Evaluation Patient location during evaluation: PACU Patient participation: complete - patient participated Level of consciousness: fully awake Pain score: 4 Pain management: satisfactory to patient Airway patency: patent Evidence of recall: no Cardiovascular status: hemodynamically stable Respiratory status: room air Hydration status: acceptable Pt is: normothermic Nausea/Vomiting status: resolved and tolerable Comments: Feels better. Had severe nausea earlier, now much improved. Pain tolerable. Has carrier driver. Will DC to home. No notable events documented. ENT TEACHER * Anesthesia Procedure Notes - Yajaira Pate CRNA - 09/30/2022 2:33 PM CSTAssociated Order(s): Peripheral IV Catheter Peripheral IV Catheter Patient location: OR Staff: Placed by: Anesthesiologist: Mendel Marshall MD Preprocedure prep: Prep solution: chlorhexadine PPE: gloves and provider hat/mask PIV line: Laterality: left Site: antecubital Catheter size: 18 g Technique: direct visualization and palpatation Procedure details: good blood return and occlusive dressing applied Number of attempts: 1 Assessment: Events: patient tolerated procedure well with no complications ENT TEACHER * Anesthesia Procedure Notes - Yajaira Pate CRNA - 09/30/2022 2:32 PM CSTAssociated Order(s): Airway Airway Patient location: OR Urgency: elective Indications for airway management: anesthesia Difficult airway: no Staff: Supervising provider: Mendel Marshall MD Placed by: SECURITY SOFTWARE ENGINEER: Yajaira Pate CRNA Emergent airway documentation: Risks and benefits discussed: yes Consent obtained: yes Consent given by: patient Airway prep: Preoxygenated: yes Patient position: sniffing MILS maintained throughout: yes Mask difficulty assessment: 1 - vent by mask Sedation level during airway: GA Final airway details: Final airway type: endotracheal airway Tube type: ETT ETT size: 7.0 mm Cuffed: yes Technique used for successful ETT placement: direct laryngoscopy Devices/Methods used in placement: intubating stylet Blade type: Ilsa Blade size: 3 Cormack-Lehane (direct): grade I - full view of glottis Cuff inflated with: air ETT to teeth: 22 cm Placement verified by: auscultation, CO2 detection and palpation of cuff Airway secured with: silk tape Number of attempts: 1 ENT TEACHER * Anesthesia Preprocedure Evaluation - Mendel Marshall MD - 09/21/2022 8:55 AM CDT Images from the original note were not included. Anesthesia Evaluation Center for Preoperative Assessment and Planning Preoperative Evaluation Record Evaluation type/location: [facility] Planned procedure site: [facility] PVT OR (Pod 1) Date: 09/21/22 Kylee Guo is a 37 y.o. female Procedure(s): LAPAROSCOPY DIAGNOSTIC - OPERATIVE LAPAROSCOPIC SALPINGECTOMY LAPAROSCOPIC OOPHORECTOMY LAPAROSCOPIC TOTAL HYSTERECTOMY EXPLORATORY LAPAROTOMY Pre-Op Diagnosis Codes: * Adnexal mass [N94.89] HISTORY HPI 37 yr old female with large grapefruit sized cyst to left ovary being planned for laparoscopic oophrectomy, potential hysterectomy Past Medical History Information obtained from: patient and chart. Neurological + Seizures (non epileptic per pt-had video EEG in records, now has focal aware sz about 1x week, last yesterday, off meds now per neurology , f/u w/neuromuscular at [facility]) + Psychiatric history - anxiety and depression + Neuromuscular disease (fibromyalgia) Comments: Pt reports she was observed for ? TIA w/left sided weakness and elevated BP-was 3 days and d.c'd Cardiovascular + Hypertension Hypertension year diagnosed: 2016. Typical systolic BP - 130 Typical diastolic BP - 90 + Hyperlipidemia (on statin) + CAD (mild nonobtructive per cardiac cath) Comments: Pt f/u with aquatic scientist-Dr. Norman, last seen May 10 Respiratory Comments: Uses inhaler for seasonal allergies, last used a few days ago Hepatic / Heme + Liver disease (has fatty liver disease, f/u with PCP, enzymes WNL) + History of anemia (last H/H in epic WNL, on supplements) - iron deficiency Gastrointestinal + GERD (controlled with diet) - does not use medication. Symptoms weekly but < daily. + Hiatal hernia (small) Renal / + Renal disease (st 3 per pt) - CKD Comments: Polycystic kidney disease, CKD-f/u with Dr. Lugo for nephrology Musculoskeletal/Pain + Chronic pain - fibromyalgia. + Headaches (daily) - migraine headaches. Comments: Left abd, neck and base of skull. Endocrine / Other + Diabetes mellitus (f/u with endocrine, Dr. Kessler, seen in 08/10, reports she does not normally check BS) - Diabetes type 2. Diagnosed: 2000. Diabetic complications: neuropathy. Outpatient insulin use: current. Pt reported low glucose range is 90. Pt reported high glucose range is 110. Pt reported HgA1c: 7.2. Pt reported HgA1c date: 08/11. + Obesity (BMI >30) (BMI=35) + Infectious disease (last UTI was 1 yr ago) - UTI. Functional Capacity Functional capacity: 4-6 METs Comments: Able to walk 2 miles 3 x per week, climbing stairs will cause SOB Review of Systems + productive cough (reports cough w/clear sputum x2 weeks ago is resolving) + SOB (chronic w/nonexertion to abd fullness) + recent cold/flu (2 weeks ago-has resolved) + chest pain (reports chest discomfort w/houseworlk, resolves w/rest. described as weird pressure, resolves w/rest. chronic over past few years, no changes) + palpitations (w/anxiety) + orthopnea (2 pillow) + pedal edema (legs swell, resolves w/losartan) + PND (reports she awakens coughing 5-6 x per week) + melena/hematochezia (went to ER w/bloody stool-cyst dx then. had colonosoopy- has hemorrhoids) + syncope (last 6 months ago, reports she will suddnely come to ) + dizziness (has vertigo) + chronic pain + numbness/tingling (all over) + hard of hearing (decreased to right ear) + vision loss (wears corrective lenses) + heartburn (at night) + nausea/vomiting (vomiting 1-2x per week) + dysphagia (at times with food) + abdominal pain (to left side) + unexpected wt change (reports up and down) Pertinent negatives: fever; heavy menses (varies); previous transfusion; transfusion reaction; easybruising; bleeding problems; muscle weakness; diarrhea; dentures/partials; chipped/loose teeth and diaphoresis Comments: Reports she currently feels she might have UTI due to pain to side and blood in urine-x1 wk Recently treated for infection - swollen glands to neck w/antibiotics-completed 5 days ago-reports has resolved C/o constipation on meds PAT Summary and Plans Cardiac risk classification of planned procedure: intermediate cardiac risk. Preoperative assessment status: lab tests ordered. Initial preoperative evaluation discussed with: Mendel Chauhan MD Additional comments: Kylee Guo is a 37 y.o. female who is being evaluated prior to undergoing an intermediate cardiac risk surgery. Revised Cardiac Risk Index factors are (ischemic heart disease and insulin therapy for diabetes) for a total RCRI of 2 out of 6. Functional capacity is 4-6 METs. Obstructive sleep apnea (GEREMIAS) screening status is STOP-Bang=5 suggesting HIGH RISK for GEREMIAS The patient is at elevated risk for obstructive sleep apnea (GEREMIAS) per STOP-BANG screening questionnaire results. Patient informed of the possibility that they have undiagnosed GEREMIAS, which may increasetheir risk for perioperative respiratory events. Patient also informed of the possible long-term health problems associated with GEREMIAS. Because we do not feel that preoperative GEREMIAS testing is likely tooutweigh the downsides of delaying surgery, we have recommended that the patient talk to their primary doctor or other clinician after surgery about getting tested for GEREMIAS. Pt has already discussed this with her PCP. Blood bank needs for day of procedure: Type and Screen only Pending labs/tests include: CBC CMP T&S, urine HCG, flex UA Urine HCG and bedside glucose ordered for DOS. The patient is on aspirin therapy and has a history of CAD . For the proposed procedure, the risk of increased bleeding likely outweighs the benefits of preoperative antiplatelet therapy. If the surgeon agrees with risk assessment, we would support stopping aspirin up to 7-10 days prior to the procedure and resuming therapy when feasible in the postoperative period. [email or web address] staff message sent to surgeon's office. Please call the CPAP attending ([phone]) with any questions. Discussed with CPAP attending in view of multiple complaints of ROS. No further work up required. BP noted to be elevated today as pt did not take her BP meds this AM. Pt tolerated laying flat for exam without any distress or coughing noted. Preoperative evaluation performed by Tracey Romero NP on 09/21/22 at 9:25 AM.. Follow up note Labs reviewed and are significant for: UA indicates 4+ glucose, patient on Farxiga. Surgeon's office reviews laboratory results independently, including final results of surgeon ordered labs. CPAP process complete. Follow-up completed by: Taryn Burnham NP on 09/22/22 at 9:51 AM Patient Active Problem List Diagnosis ??? Pyelonephritis ??? Right flank pain ??? Idiopathic intracranial hypertension ??? Hypertensive retinopathy of both eyes ??? Insulin dependent diabetes mellitus ??? Unspecified abnormal involuntary movements ??? Type 2 diabetes mellitus without complication, without long-term current use of insulin (CMS/HCC) (HCC) ??? Hypertensive chronic kidney disease ??? Hematuria ??? Polycystic kidney disease ??? Polycystic ovaries ??? Tension headache ??? Stage 1 chronic kidney disease ??? Anxiety disorder ??? Bipolar disorder (HCC) ??? Hyperlipidemia ??? Migraine ??? Obesity ??? Primary hypertension ??? Smoker ??? Abnormal C-reactive protein ??? Atherosclerotic heart disease of [place] coronary artery without angina pectoris ??? Chronic depression ??? Elevated antinuclear antibody (BOBBY) level ??? Fibromyalgia ??? Iron deficiency anemia ??? Psychologic conversion disorder ??? Severe major depression, single episode, without psychotic features (HCC) ??? 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 Stage 3a chronic kidney disease (HCC) ??? Uncontrolled type 2 diabetes mellitus ??? Adnexal cyst Past Medical History: Diagnosis Date ??? Anemia ??? Arthritis ??? CKD (chronic kidney disease) stage 2, GFR 60-89 ml/min ??? Diabetes mellitus (HCC) ??? DVT (deep venous thrombosis) (CMS/HCC) (HCC) ??? Frequent headaches ??? GERD (gastroesophageal reflux disease) ??? Idiopathic intracranial hypertension ??? Pituitary tumor ??? Polycystic kidney disease ??? Polycystic ovarian disease ??? Renal disorder ??? Seizure (CMS/HCC) (HCC) Past Surgical History: Procedure Laterality Date ??? SECTION 2001 ??? SECTION 2003 ??? CHOLECYSTECTOMY ??? LUMBAR PUNCTURE WO INJECTION, DIAGNOSTIC N/A 02/11/2019 ??? TUBAL LIGATION OB History 2 Para 2 Term 2 AB Living 2 SAB IAB Ectopic Multiple Live Births 2 Allergies Allergen Reactions ??? Adhesive Itching ??? Metoclopramide Anxiety Other reaction(s): panic attack ??? Ondansetron Anxiety ??? Phenergan [Promethazine] Anxiety ??? Prochlorperazine Anxiety Med List Status: Nurse Complete Set By: Aida Carrizales RN at 09/21/2022 9:25 AM Taking? Last Dose Start Date End Date Provider acetaminophen (Tylenol Extra Strength) 500 mg tablet 09/20/2022 -- -- Preet Hernandez MD ALBUTEROL SULFATE INHAL 09/20/2022 -- -- Preet Hernandez MD aspirin 81 mg enteric coated tablet 09/20/2022 12/28/20 -- Preet Hernandez MD blood glucose diagnostic strip -- 05/29/21 -- Preet Hernandez MD buPROPion XL (WELLBUTRIN XL) 150 mg 24 hr tablet 09/20/2022 06/21/21 -- Preet Hernandez MD dapagliflozin (FARXIGA) 10 mg tablet 09/20/2022 -- -- Preet Hernandez MD ferrous sulfate (IRON ORAL) 09/20/2022 -- -- Preet Hernandez MD lactulose 0.67 gram/mL solution -- 07/18/22 -- Preet Hernandez MD losartan (COZAAR) 100 mg tablet 09/20/2022 08/01/22 -- Preet Hernandez MD metFORMIN XR (GLUCOPHAGE XR) 500 mg 24 hr tablet 09/20/2022 -- -- Preet Hernandez MD methocarbamoL (ROBAXIN) 750 mg tablet Past Week 07/22/22 -- Preet Hernandez MD rosuvastatin (CRESTOR) 10 mg tablet 09/20/2022 07/16/20 -- Preet Hernandez MD senna (SENOKOT) 8.6 mg tablet 09/20/2022 -- -- Preet Hernandez MD traZODone (DESYREL) 100 mg tablet Past Month -- -- Preet Hernandez MD TRESIBA 200 unit/mL (3 mL) pen for injection 09/20/2022 01/26/21 -- Preet Hernandez MD Trulicity 4.5 mg/0.5 mL pen injector 09/15/2022 08/08/22 -- Preet Hernandez MD valACYclovir (VALTREX) 500 mg tablet Not Taking -- -- Preet Hernandez MD -- -- -- -- -- -- Current Outpatient Medications: ??? acetaminophen (Tylenol Extra Strength) 500 mg tablet ??? ALBUTEROL SULFATE INHAL ??? aspirin 81 mg enteric coated tablet ??? blood glucose diagnostic strip ??? buPROPion XL (WELLBUTRIN XL) 150 mg 24 hr tablet ??? dapagliflozin (FARXIGA) 10 mg tablet ??? ferrous sulfate (IRON ORAL) ??? lactulose 0.67 gram/mL solution ??? losartan (COZAAR) 100 mg tablet ??? metFORMIN XR (GLUCOPHAGE XR) 500 mg 24 hr tablet ??? methocarbamoL (ROBAXIN) 750 mg tablet ??? rosuvastatin (CRESTOR) 10 mg tablet ??? senna (SENOKOT) 8.6 mg tablet ??? traZODone (DESYREL) 100 mg tablet ??? TRESIBA 200 unit/mL (3 mL) pen for injection ??? Trulicity 4.5 mg/0.5 mL pen injector ??? valACYclovir (VALTREX) 500 mg tablet Social History Tobacco Use Smoking Status Former ??? Types: Cigarettes ??? Quit date: 06/2020 ??? Years since quittin.2 Smokeless Tobacco Never Alcohol Use: Not At Risk ??? Frequency of Alcohol Consumption: Never ??? Average Number of Drinks: Patient does not drink ??? Frequency of Binge Drinking: Never Substance and Sexual Activity Drug Use Yes ??? Types: Marijuana Comment: 1 month since last use - smoking marijuana Family History Problem Relation Age of Onset ??? Hypertension Mother ??? Seizures Mother ??? Hypertension Father ??? Diabetes Father ??? Obesity Father ??? Heart disease Father ??? Seizures Sister ??? No Known Problems Sister ??? Obesity Child ??? Kidney disease Child ??? Breast cancer Other ??? Kidney cancer Other ??? Ovarian cancer Maternal Great-Grandmother PAT Physical Exam Airway Exam: Mallampati: II Cervical ROM: FROM TM distance: 3 Upper lip bite test class: 1 Cardiovascular Exam: Rate: regular Rhythm: regular Pulmonary Exam: LCTA, bilat EENT Exam: trachea midline Dental Exam: Appears intact Skin Exam: Skin is warm and dry. Capillary refill is < 3 seconds. Abdominal exam: Abdomen is soft and tender. Current state: Patient's current state is cooperative and interactive. Vitals: 09/21/22 0905 09/21/22 0910 BP: 147/97 159/98 Pulse: 97 Resp: 16 SpO2: 96% Relevant diagnostics: ECG(s): 09/21/22: NSR, vent rate=81bpm 01/22/21: NSR, vent rate=92 bpm Echocardiogram(s): N/A Stress test(s): N/A Cardiac catheterization(s): 01/22/21: 1. Hemodynamic data: LV pressure 144/18 , Aortic pressure 157/86 , LVEDP 18 2. Left main: Large, within normal limits 3. LAD: Large, very tortuous, in mid segment mildly ectatic, minor luminal irregularities. D1 Large, normal. 4. LCX: Large, mid and distal very tortuous, normal. OM1 large, tortuous, normal. 5. RCA: Large dominant, tortuous, minor luminal irregularities in mid segment. PDA Small, normal. SELENA average, normal. SUMMARY: 1. Mild nonobstructive CAD. 2. Diastolic dysfunction (LVEDP 18 mmHg). PFT(s): N/A Vascular studies: N/A Other: MRI brain 03/11/21: No acute intracranial abnormality or abnormality to explain patient's Symptoms. Continuous video EEG 01/31/21: No seizures were captured during the recording. The eighteen capturedtypical clinical events did not have significant EEG correlate. 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 Since a normal EEG cannot rule out a movement disorder, the movement disorder differential outlined by her movement disorder physician remains possible, including a functional movement disorder. Clinical correlation is advised.The interictal EEG was normal awake, drowsy, and asleep. The patient's first three typical clinical events described as her most severe convulsions associated with bladder incontinence and emesis were not captured during this round of monitoring. These have not happened in months. Repeat Video/EEG to characterize this event type may be necessary, if clinically indicated, such as following a recurrence. PT: No results found for requested labs within last 720 hours. INR: No results found for requested labs within last 720 hours. APTT: No results found for requested labs within last 720 hours. Hgb A1C: No results found for requested labs within last 720 hours. CBC RBC: 08/29/2022: 4.60 M/cumm RDW: No results found for requested labs within last 720 hours. MCHC: 08/29/2022: 31.7 g/dL (L) MCH: 08/29/2022: 26.3 pg (L) MCV: 08/29/2022: 83.0 fL Hct: 08/29/2022: 38.2 % Hgb: 08/29/2022: 12.1 g/dL WBC: 08/29/2022: 10.0 K/cumm (H) MPV: 08/29/2022: 8.7 fL (L) Platelets: 08/29/2022: 314 K/cumm RDW CV: 08/29/2022: 15.2 % (H) RDW Sd: 08/29/2022: 46.4 fL BMP Glucose: No results found for requested labs within last 720 hours. Calcium: No results found for requested labs within last 720 hours. Sodium: No results found for requested labs within last 720 hours. Potassium: No results found for requested labs within last 720 hours. CO2: No results found for requested labs within last 720 hours. Chloride: No results found for requested labs within last 720 hours. BUN: No results found for requested labs within last 720 hours. Creatinine: No results found for requested labs within last 720 hours. STOP-Bang Total Score: 5 Carlos Enrique index score: 95 DOS Physical Exam Medical history, medications, and allergies reviewed. Attestation: I endorse the findings of the anesthesia pre-evaluation assessment dated: 09/21/2022. Anesthesia Plan ASA 3 My patient is approved for the Anesthesia Controlled Medication protocol when under care of a SECURITY SOFTWARE ENGINEER Planned anesthesia: General Team communication plan: oral ET tube Induction: Induction: intravenous. Postoperative Plan: Postoperative administration opioids intended. No postoperative mechanical ventilation intended. Patient's planned disposition post procedure is Floor. Informed Consent: Discussed plan with SECURITY SOFTWARE ENGINEER. Anesthesia plan and risks discussed with patient. Consent and Attending signature: I and/or my designee have discussed the anesthesia plan, benefits, possible alternatives, parental presence at time of induction (if indicated), and clinically relevant risks that may include dental injury, unintentional awareness, and/or other complications. The patient and/or parent/legal guardian understand, and agree to proceed. All questions answered. ENT TEACHER documented in this encounter Plan of Treatment Not on file documented as of this encounter Procedures Procedure Name Priority Date/Time Associated Diagnosis Comments MT AN PROCEDURE PLACEHOLDER Routine 09/30/2022 2:33 PM STUDENT TEACHER MT AN PROCEDURE PLACEHOLDER Routine 09/30/2022 2:32 PM STUDENT TEACHER MT AN ELECTIVE ENDOTRACHEAL AIRWAY Routine 09/30/2022 2:32 PM STUDENT TEACHER documented in this encounter Results * MT AN PROCEDURE PLACEHOLDER (09/30/2022 2:33 PM STUDENT TEACHER) Narrative Yajaira Pate CRNA - 09/30/2022 2:33 PM STUDENT TEACHER Yajaira Pate CRNA ? 09/30/2022 ??2:33 PM Peripheral IV Catheter Patient location: OR Staff: Placed by: Anesthesiologist: Mendel Marshall MD Preprocedure prep: Prep solution: chlorhexadine PPE: gloves and provider hat/mask PIV line: Laterality: left Site: antecubital Catheter size: 18 g Technique: direct visualization and palpatation Procedure details: good blood return and occlusive dressing applied Number of attempts: 1 Assessment: Events: patient tolerated procedure well with no complications us Mendel Marshall MD ANESTHESIA ORDERABLES Final Re sult * MT AN ELECTIVE ENDOTRACHEAL AIRWAY, MT AN PROCEDURE PLACEHOLDER (09/30/2022 2:32 PM STUDENT TEACHER) Yajaira Everett CRNA - 09/30/2022 2:32 PM STUDENT TEACHER Yajaira Pate CRNA ? 09/30/2022 ??2:33 PM Airway Patient location: OR Urgency: elective Indications for airway management: anesthesia Difficult airway: no Staff: Supervising provider: Mendel Marshall MD Placed by: SECURITY SOFTWARE ENGINEER: Yajaira Pate CRNA Emergent airway documentation: Risks and benefits discussed: yes Consent obtained: yes Consent given by: patient Airway prep: Preoxygenated: yes Patient position: sniffing MILS maintained throughout: yes Mask difficulty assessment: 1 - vent by mask Sedation level during airway: GA Final airway details: Final airway type: endotracheal airway Tube type: ETT ETT size: 7.0 mm Cuffed: yes Technique used for successful ETT placement: direct laryngoscopy Devices/Methods used in placement: intubating stylet Blade type: Ilsa Blade size: 3 Cormack-Lehane (direct): grade I - full view of glottis Cuff inflated with: air ETT to teeth: 22 cm Placement verified by: auscultation, CO2 detection and palpation of cuff Airway secured with: silk tape Number of attempts: 1 Mendel Marshall MD ANESTHESIA ORDERABLES Final Re sult documented in this encounter Visit Diagnoses Not on filedocumented in this encounter Administered Medications Inactive Administered Medications - up to 3 most recent administrations Medication Order MAR Action Action Date Dose Rate Site dexAMETHasone (DECADRON) 4 mg/mL injection intravenous, Administer over 2 Minutes, As needed, Starting on Mon09/30/22 at 1425, Anesthesia Intra-op Given 09/30/2022 2:25 PM STUDENT TEACHER 4 mg dexmedeTOMIDine (PRECEDEX) 80 mcg/20 mL (4 mcg/mL) in sodium chloride 0.9% (premix) intravenous, As needed, Starting on Mon09/30/22 at 1525, Anesthesia Intra-op Given 09/30/2022 3:40 PM STUDENT TEACHER 16 mcg Given 09/30/2022 3:32 PM STUDENT TEACHER 12 mcg Given 09/30/2022 3:25 PM STUDENT TEACHER 12 mcg diphenhydrAMINE (BENADRYL) injection intravenous, Administer over 2 Minutes, As needed, Starting on Mon09/30/22 at 1425, Anesthesia Intra-op Given 09/30/2022 2:25 PM STUDENT TEACHER 12.5 mg famotidine (PEPCID) injection intravenous, Administer over 2 Minutes, As needed, Starting on Mon09/30/22 at 1425, Anesthesia Intra-op Given 09/30/2022 2:25 PM STUDENT TEACHER 20 mg fentaNYL (SUBLIMAZE) preservative free injection intravenous, As needed, Starting on Mon09/30/22 at 1336, Anesthesia Intra-op Given 09/30/2022 4:03 PM STUDENT TEACHER 100 mc g Given 09/30/2022 1:36 PM STUDENT TEACHER 100 mcg HYDROmorphone (DILAUDID) injection intravenous, Administer over 2 Minutes, As needed, Starting on Mon09/30/22 at 1523, Anesthesia Intra-op Given 09/30/2022 3:32 PM STUDENT TEACHER 1 mg Given 09/30/2022 3:23 PM STUDENT TEACHER 1 mg Lactated Ringer's (LR) infusion 30 mL/hr, intravenous, Continuous, Starting on Mon09/30/22 at 0930, Pre-Op New Bag 09/30/2022 2:40 PM STUDENT TEACHER Rate/Dose Verify 09/30/2022 1:24 PM STUDENT TEACHER 30 mL/h r New Bag 09/30/2022 9:36 AM STUDENT TEACHER 30 mL/hr 30 mL/hr Lactated Ringer's (LR) infusion intravenous, Continuous PRN, Starting on Mon09/30/22 at 1350, Anesthesia Intra-op New Bag 09/30/2022 1:50 PM STUDENT TEACHER lidocaine (cardiac) (XYLOCAINE) preservative free injection intravenous, As needed, Starting on Mon09/30/22 at 1336, Anesthesia Intra-op, Indications: Ventricular ArrhythmiasIndications:Ventricular Arrhythmias Given 09/30/2022 1:36 PM STUDENT TEACHER 100 mg metoprolol (LOPRESSOR) injection intravenous, Administer over 1 Minutes, As needed, Starting on Mon09/30/22 at 1538, Anesthesia Intra-op Given 09/30/2022 4:04 PM STUDENT TEACHER 5 mg Given 09/30/2022 3:38 PM STUDENT TEACHER 5 mg midazolam (VERSED) 1 mg/mL preservative free injection intravenous, Administer over 2 Minutes, As needed, Starting on Mon09/30/22 at 1330, Anesthesia Intra-op Given 09/30/2022 1:30 PM STUDENT TEACHER 2 mg propofoL (DIPRIVAN) 10 mg/mL IV intravenous, As needed, Starting on Mon09/30/22 at 1336, Anesthesia Intra-op Given 09/30/2022 2:11 PM STUDENT TEACHER 60 mg Given 09/30/2022 1:36 PM STUDENT TEACHER 160 mg propofoL (DIPRIVAN) 10 mg/mL IV intravenous, Continuous PRN, Starting on Mon09/30/22 at 1340, Anesthesia Intra-op Rate/Dose Change 09/30/2022 3:23 PM STUDENT TEACHER 100 mcg/kg/min 55.92 mL/hr Rate/Dose Change 09/30/2022 3:15 PM STUDENT TEACHER 86 mcg/kg/min 48.0 91 mL/hr Rate/Dose Change 09/30/2022 2:00 PM STUDENT TEACHER 95 mcg/kg/min 53.1 24 mL/hr remifentaniL (ULTIVA) 2,000 mcg in sodium chloride 0.9% 40 mL (50 mcg/mL) infusion intravenous, Continuous PRN, Starting on Mon09/30/22 at 1340, Anesthesia Intra-op Rate/Dose Change 09/30/2022 2:31 PM STUDENT TEACHER 0.105 mcg/kg/min 11.743 mL/hr Rate/Dose Change 09/30/2022 1:43 PM STUDENT TEACHER 0.13 mcg/kg/min 14 .539 mL/hr New Bag 09/30/2022 1:40 PM STUDENT TEACHER 0.6 mcg/kg/min 67.104 mL /hr rocuronium (ZEMURON) injection intravenous, As needed, Starting on Mon09/30/22 at 1336, Anesthesia Intra-op Given 09/30/2022 4:03 PM STUDENT TEACHER 20 mg Given 09/30/2022 2:46 PM STUDENT TEACHER 20 mg Given 09/30/2022 1:36 PM STUDENT TEACHER 60 mg sugammadex (BRIDION) 100 mg/mL intravenous solution intravenous, As needed, Starting on Mon09/30/22 at 1627, Anesthesia Intra-op Given 09/30/2022 4:27 PM STUDENT TEACHER 200 mg documented in this encounter Care Teams Wire Rope Fabrication Supervisor Relationship Specialty Start Date End Date Andrei Clark MD PCP - General Internal Medicine 12/11/20 Kandace Freedman, OT [address] [place] [address] Occupational Therapist Occupational Therapy 03/15/21 Christina Brunson MD [address] [place] [address] Obstetrics and Gynecology 08/02/22 documented as of this encounter
--- OUTSIDE RECORDS SUMMARY | 2024-11-17 14:26 | XMS_ITS | Encounter Summary ---
Author Organization [facility] Healthcare Address [address] [place] [address] Care Team Providers Care Telecommunications Specialist Name Role Phone Andrei Clark MD Primary Care Provider [phone] Kandace Freedman OT Unavailable [phone] Christina Brunson MD Unavailable [phone] Encounter Details Date Type Department Care Team (Latest Contact Info) Description 10/17/2022 5:11 PM AGRICULTURAL EXTENSION OFFICER - 10/17/2022 11:59 PM AGRICULTURAL EXTENSION OFFICER Hospital Encounter [address] [address] Discharge Disposition: Discharge to home or self [...] on file Legal Sex Female 4:48 PM AGRICULTURAL EXTENSION OFFICER Gender Identity Not on file Sexual Orientation [...] (three) times a day as needed 07/22/2022 oxyCODONE (ROXICODONE) 5 mg immediate release tabletIndication [...] Units total) under the skin bedtime 01/26/2021 valACYclovir (VALTREX) 500 mg tablet valacyclovir 500 mg tablet TAKE 1 TABLET BY MOUTH TWICE DAILY FOR 7 DAYS (NEEDS APPT FOR FURTHER REFILLS) Trulicity 4.5 mg/0.5 mL pen injector Inject 4.5 mg under the skin once a week 08/08/2022 documented as of this encounter Discharge Disposition Disposition Code Departure Means Destination Discharge to home or self care documented in this encounter Plan of Treatment Not on file documented as of this encounter Visit Diagnoses Not on filedocumented in this encounter Care Teams Telecommunications Specialist Relationship Specialty Start Date End Date Andrei Clark MD PCP - General Internal Medicine 12/11/20 Kandace Freedman OT [address] [place] [address] Occupational Therapist Occupational Therapy 03/15/21 Christina Brunson MD [address] [place] [address] Obstetrics and Gynecology 08/02/22 documented as of this encounter
--- OUTSIDE RECORDS SUMMARY | 2024-11-17 14:26 | XMS_ITS | Encounter Summary ---
Author Organization [facility] Address [address] [place] [address] Phone Care Team Providers Care Film And Video Graphics Designer Name Role Phone Andrei Clark MD Primary Care Provider [phone] Kandace Freedman OT Unavailable [phone] Christina Brunson MD Unavailable [phone] Encounter Details Date Type Department Care Team (Late st Contact Info) Description 10/25/2022 Telephone [facility] Obstetrics and Gynecology [address] [facility] Advanced Medicine 13th [place] [address] [place] [address] Hilda Quintanilla RN Social History Tobacco Use Types Packs/Day Years [...] on file Legal Sex Female 4:48 PM DRIER OPERATOR HELPER Gender Identity Not on file Sexual Orientation Not on file documented as of this encounter Miscellaneous Notes * Telephone Encounter - Hilda Quintanilla RN - 10/25/2022 11:07 AM DRIER OPERATOR HELPER TC to pt to inform that Dr. Jackson would like her to have an US to evaluate her right ovary prior to her next follow-up appt. Informed pt US scheduled at 10:45 at [facility] 7 and f/u with Manuel at 1:10. Pt verbalized understanding. R OPERATOR HELPER documented in this encounter Plan of Treatment Not on file documented as of this encounter Visit Diagnoses Not on filedocumented in this encounter Care Teams Film And Video Graphics Designer Relationship Specialty Start Date End Date Andrei Clark MD PCP - General Internal Medicine 12/11/20 Kandace Freedman OT [address] [place] [address] Occupational Therapist Occupational Therapy 03/15/21 Christina Brunson MD [address] [place] [address] Obstetrics and Gynecology 08/02/22 documented as of this encounter
--- OUTSIDE RECORDS SUMMARY | 2024-11-17 14:26 | XMS_ITS | Encounter Summary ---
Author Organization [facility] Address [address] [facility] [address] [place] [address] Phone Care Team Providers Care Dampproofer Name Role Phone Andrei Clark MD Primary Care Provider Kandace Freedman OT Unavailable [phone] Christina Brunson MD Unavailable [phone] Reason for Referral * Diagnostic Imaging (Routine) - Pending Review Specialty Diagnoses / Procedures Referred By Contadonis t Referred To Contact Diagnoses Cyst of left ovary Procedures US Pelvis Complete Michael Jackson MD [address] [facility] [phone] [place] [address] Phone: tel: fax: [facility] (All Locations) Referral ID Status Reason Start Date Expiration Date V isits Requested Visits Authorized [id number] Pending Review 04/01/2024 05/01/2025 1 1 Encounter Details Date Type Department Care Team (Late st Contact Info) Description 04/01/2024 Orders Only [facility] Obstetrics and Gynecology [address] [facility] Advanced Medicine 13th [place] [address] [place] [address] Hilda Quintanilla RN Cyst of left ovary (Primary Dx) Social History Tobacco Use Types [...] on file Legal Sex Female 4:48 PM PROCEDURE RN Gender Identity Not on file Sexual Orientation Not on file documented as of this encounter Plan of Treatment Not on file documented as of this encounter Results * US Pelvis Complete (04/10/2024 2:40 PM CDT) Cul de Sac No free fluid visualized VIEWPOINT Endometrial Thickness 10.9 mm&millim eters VIEWPOINT Anatomical Region Laterality Modality Pelvis N/A Ultrasound 04/10/2024 2:45 PM CDT Impressions 04/10/2024 3:42 PM CDT 1- Normal size uterus with small stable myoma which appears predominantly submucous.2- Enlarged right ovary with multiple follicles.3- Surgically absent left ovary.4- No adnexal masses are identified. ?? Narrative Procedure Note Steve Red MD - 04/10/2024 IMPRESSION: 1- Normal size uterus with small stable myoma which appears predominantlysubmucous.2- Enlarged right ovary with multiple follicles.3- Surgicallyabsent left ovary.4- No adnexal masses are identified. us Premal Elia Jackson MD IMG US PROCEDURES Final Result documented in this encounter Visit Diagnoses Diagnosis Cyst of left ovary- Primary Other and unspecified ovarian cyst Cyst of left ovary Other and unspecified ovarian cyst documented in this encounter Care Teams Dampproofer Relationship Specialty Start Date End Date Andrei Clark MD PCP - General Internal Medicine 12/11/20 Kandace Freedman OT [address] [place] [address] Occupational Therapist Occupational Therapy 03/15/21 Christina Brunson MD [address] [facility] [address] [place] [address] Obstetrics and Gynecology 08/02/22 documented as of this encounter
--- OUTSIDE RECORDS SUMMARY | 2024-11-17 14:26 | XMS_ITS | Encounter Summary ---
Author Organization [facility] Address [address] [place] [address] Phone Care Team Providers Care Countersinker Name Role Phone Daisy Clark MD Primary Care Provider [phone] Kandace Freedman OT Unavailable [phone] Christina Brunson MD Unavailable Reason for Visit * Reason Comments Follow-up Encounter Details Date Type Department Care Team (Late st Contact Info) Description 05/13/2024 9:10 AM CDT Office Visit [facility] Obstetrics and Gynecology [address] [facility] Advanced Medicine 13th [place] [address] [place] [address] Michael Jackson MD [address] [facility] [phone] [place] [address] Adnexal cyst (Primary Dx); Menorrhagia with irregular cycle Social History Tobacco Use Types Packs/Day Years [...] on file Legal Sex Female 4:48 PM PE TEACHER Gender Identity Not on file Sexual [...] Mass Index 34.82 05/13/2024 9:21 AM CDT documented in this encounter Progress Notes * Michael Jackson MD - 05/13/2024 12:00 AM CDT PATIENT: KYLEE FIGUEROA : 1985 BRITTANY: 05/13/2024 REASON FOR VISIT: Adnexal mass with repeat ultrasound and treatment planning. HISTORY OF PRESENT ILLNESS: Ms. Figueroa is [...] adnexal cyst, the patient is sent to [facility]. The patient's primary care physician, Dr. Clark, has performed 2 CT scans per the patient's report, and both CT scans showed that the adrenal gland was not concerning for a cancer. The patient presented on 04/01/2024 and had an endometrial biopsy performed on that day, which demonstrated that there was proliferative pattern endometrium with breakdown. No evidence of hyperplasiaor malignancy. The patient also had an ultrasound performed on 04/10/2024, which demonstrated normal-size uterus with a small stable myoma, which appears predominantly submucosal, along with an enlarg ed right ovary with multiple follicles. The left ovary was surgically absent. There were no adnexalmasses that were identified. The patient presents today, still with a multitude of complaints. She feels that her most recent menstrual cycle from 04/26/2024 until 05/01/2024 was within normal limits, and not as heavy. However, she did have some spotting on May 04 and May 05. The patient's blood pressure has been elevated for the last 2 weeks. The patient has not seen her mapping pilot for greater than 6 months. She did take her losartan. 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 Otherwise, the patient does complain of having headaches and has an abdominal pain score of 2. The patient otherwise is in a committed relationship. She continues to have active yeast infections. PAST MEDICAL HISTORY/REVIEW OF SYSTEMS: Unchanged from 04/01/2024, except for the above updates. PHYSICAL EXAM: General Appearance: The patient is a well-developed, well-nourished female in no acute distress. Vital Signs: Her blood pressure is 167/109, pulse is 103, respirations are 18. Her weight is 209 pounds, which an increase of 8 pounds from her last visit. HEENT: Atraumatic, normocephalic, PERRLA, EOMI, EENT: Within normal limits. Neck is supple, withoutthyromegaly or JVD. LN Survey: No supraclavicular, inguinal, or femoral lymphadenopathy. Lungs: Clear to auscultation bilaterally. Heart: Regular rate and rhythm. Positive S1/S2. Breasts: Deferred Back: No CVA or paraspinal tenderness. Abdomen: Soft, nontender, nondistended. Normoactive bowel sounds. She has well- healed laparoscopic incisions. Extremities: No clubbing, cyanosis, or edema. Neuro: The patient is awake, alert, and oriented x 3. Pelvic Exam: Pelvic exam was deferred. ASSESSMENT AND PLAN: This is a 38-year-old female with the following issues: 1. Pelvic pain: The patient does not have an park interpretive ranger and was encouraged to find a new one due to her empty sella syndrome. 2. Adrenal gland abnormality: She will continue to have this worked up with her primary care physician, Dr. Clark. 3. Right ovarian cyst: On our repeat imaging, there is no evidence of an ovarian cyst that warrantsany further intervention. 4. Menorrhagia: Her endometrial biopsy was within normal limits. 5. Diabetes: The patient will have to work with her park interpretive ranger. 6. Submucosal fibroid: The patient could have a hysteroscopic resection if ultimately this is thought to be beneficial. However, this is not something that we do in [facility], and would be better served by her primary postdoctoral scientist. She was also made aware an intrauterine device may help her withher menorrhagia as well. 7. Pap smear: The patient is not due for a Pap smear. 8. Follow-up is with her general postdoctoral scientist, since there is no need for any [facility]ER INST[facility] Oncology care. ELECTRONICALLY SIGNED - 05/13/2024 10:27 PM Michael Jackson M.D. Isabella Avalos Distinguished Professor of Obstetrics & Gynecology Director of Gynecologic Oncology Clinical Research Professor in Gynecologic Oncology [facility] [employer] PHT/ps/#[id number] cc: DAISY CLARK MD / / documented in this encounter Plan of Treatment Not on file documented as of this encounter Visit Diagnoses Diagnosis Adnexal cyst- Primary Menorrhagia with irregular cycle documented in this encounter Care Teams Countersinker Relationship Specialty Start Date End Date Daisy Clark MD PCP - General Internal Medicine 12/11/20 Kandace Freedman OT [address] [place] [address] Occupational Therapist Occupational Therapy 03/15/21 Christina Brunson MD [address] [place] [address] Obstetrics and Gynecology 08/02/22 documented as of this encounter
--- OUTSIDE RECORDS SUMMARY | 2024-11-17 14:26 | XMS_ITS | Encounter Summary ---
Author Organization [facility] Healthcare Address [address] [facility] [place] [address] Care Team Providers Care Ferryboat Operator Name Role Phone Andrei Clark MD Primary Care Provider [phone] Kandace Freedman OT Unavailable [phone] Christina Brunson MD Unavailable [phone] Reason for Referral * Diagnostic Imaging (Routine) - Closed Specialty Diagnoses / Procedures Referred By Contac t Referred To Contact Diagnoses Pain, abdominal Procedures US Pelvis Complete Michael Jackson MD [address] [facility] [phone] [place] [address] Phone: tel: fax: [facility] (All Locations) Referral ID Status Reason Start Date Expiration Date Visits Re quested Visits Authorized [id number] Closed 10/25/2022 11/24/2023 1 1 RVISOR FEED HOUSE Reason for Visit * Diagnostic Imaging (Routine) - Closed Specialty Diagnoses / Procedures Referred By Tiburcio t Referred To Contact Diagnoses Pain, abdominal Procedures US Pelvis Complete Michael Jackson MD [address] [facility] [phone] [place] [address] Phone: tel: fax: [facility] (All Locations) Referral ID Status Reason Start Date Expiration Date Visits Re quested Visits Authorized [id number] Closed 10/25/2022 11/24/2023 1 1 Encounter Details Date Type Department Care Team (Latest Contact Info) Description 11/23/2022 10:07 AM SUPERVISOR FEED HOUSE - 11/23/2022 11:59 PM SUPERVISOR FEED HOUSE Hospital Encounter [facility] [address] [facility] 7[address] [facility] [place] [address] Pain, abdominal Discharge Disposition: Discharge to home or self [...] on file Legal Sex Female 4:48 PM SUPERVISOR FEED HOUSE Gender Identity Not on file Sexual Orientation [...] under the skin once a week 08/08/2022 4 documented as of this encounter Discharge Disposition Disposition Code Departure Means Destination Discharge to home or self care documented in this encounter Plan of Treatment Not on file documented as of this encounter Procedures Procedure Name Priority Date/Time Associated Diagnosis Comments US PELVIS COMPLETE Schedule Routine, Read Routine (OP Routine) 11/23/2022 10:07 AM SUPERVISOR FEED HOUSE Pain, abdominal documented in this encounter Results * US Pelvis Complete (11/23/2022 10:07 AM SUPERVISOR FEED HOUSE) Cul de Sac No free fluid visualized VIEWPOINT Endometrial Thickness 11.2 mm&millim eters VIEWPOINT Anatomical Region Laterality Modality Pelvis N/A Ultrasound 11/23/2022 10:1 3 AM SUPERVISOR FEED HOUSE Impressions 11/23/2022 12:59 PM SUPERVISOR FEED HOUSE The uterus is anteverted and contains an intramural calcified fibroid. The left ovary is surgically absent.The right ovary is enlarged. There are several normal appearing follicles, a few bright areas of calcification or possible corpus albicans, as well as a poorly delineated area that is suspected to be a resolving hemorrhagic cyst. There was no evidence of free fluid in the pelvis or other pelvic masses. Narrative Procedure Note Juliet Zavaleta MD - 11/23/2022 IMPRESSION: The uterus is anteverted and contains an intramural calcified fibroid. Theleft ovary is surgically absent.The right ovary is enlarged. There areseveral normal appearing follicles, a few bright areas of calcification orpossible corpus albicans, as well as a poorly delineated area that issuspected to be a resolving hemorrhagic cyst. There was no evidence offree fluid in the pelvis or other pelvic masses. us Premal Elia Jackson MD IMG US PROCEDURES Final Result documented in this encounter Visit Diagnoses Diagnosis Pain, abdominal documented in this encounter Care Teams Ferryboat Operator Relationship Specialty Start Date End Date Andrei Clark MD PCP - General Internal Medicine 12/11/20 Kandace Freedman OT [address] [place] [address] Occupational Therapist Occupational Therapy 03/15/21 Christina Brunson MD [address] [place] [address] Obstetrics and Gynecology 08/02/22 documented as of this encounter
--- OUTSIDE RECORDS SUMMARY | 2024-11-17 14:26 | XMS_ITS | Encounter Summary ---
Author Organization [facility] Address [address] [place] [address] Phone Care Team Providers Care Oil Fire Specialist Name Role Phone Andrei Clark MD Primary Care Provider [phone] Kandace Freedman OT Unavailable [phone] Christina Brunson MD Unavailable [phone] Reason for Referral * Diagnostic Imaging (Routine) - Closed Specialty Diagnoses / Procedures Referred By Contac t Referred To Contact Diagnoses Pain, abdominal Procedures US Pelvis Complete Michael Jackson MD [address] [facility] [phone] [place] [address] Phone: tel: fax: [facility] (All Locations) Referral ID Status Reason Start Date Expiration Date Visits Re quested Visits Authorized [id number] Closed 10/25/2022 11/24/2023 1 1 UCTION CONTROL EXPERT Encounter Details Date Type Department Care Team (Late st Contact Info) Description 10/25/2022 Orders Only [facility] Obstetrics and Gynecology [address] [facility] Advanced Medicine 13th [place] [address] [place] [address] Hilda Quintanilla RN Pain, abdominal (Primary Dx) Social History Tobacco Use Types [...] on file Legal Sex Female 4:48 PM PRODUCTION CONTROL EXPERT Gender Identity Not on file Sexual Orientation Not on file documented as of this encounter Plan of Treatment Not on file documented as of this encounter Results * US Pelvis Complete (11/23/2022 10:07 AM PRODUCTION CONTROL EXPERT) Cul de Sac No free fluid visualized VIEWPOINT Endometrial Thickness 11.2 mm&millim eters VIEWPOINT Anatomical Region Laterality Modality Pelvis N/A Ultrasound 11/23/2022 10:1 3 AM PRODUCTION CONTROL EXPERT Impressions 11/23/2022 12:59 PM PRODUCTION CONTROL EXPERT The uterus is anteverted and contains an [...] in this encounter Visit Diagnoses Diagnosis Pain, abdominal- Primary Pain, abdominal documented in this encounter Care Teams Oil Fire Specialist Relationship Specialty Start Date End Date Andrei Clark MD PCP - General Internal Medicine 12/11/20 Kandace Freedman OT [address] [place] [address] Occupational Therapist Occupational Therapy 03/15/21 Christina Brunson MD [address] [place] [address] Obstetrics and Gynecology 08/02/22 documented as of this encounter
--- OUTSIDE RECORDS SUMMARY | 2024-11-17 14:26 | XMS_ITS | Encounter Summary ---
Author Organization [facility] Address [address] [place] [address] Care Team Providers Care Orientation & Mobility Specialist Name Role Phone Andrei Clark MD Primary Care Provider [phone] Kandace Freedman OT Unavailable [phone] Christina Brunson MD Unavailable [phone] Reason for Referral * MRI/CAT/PET Scan (Routine) - Closed Specialty Diagnoses / Procedures Referred By Tiburcio caicedo Referred To Contact Radiology Diagnoses Cyst of left ovary Procedures CT Abdomen Pelvis W Contrast Michael Jackson MD [address] [facility] [phone] [place] [address] Phone: tel: fax: [address] [phone] Referral ID Status Reason Start Date Expiration Date Visits Re quested Visits Authorized [id number] Closed 10/17/2022 12/16/2022 1 1 HER AND SHEARER Reason for Visit * MRI/CAT/PET Scan (Routine) - Closed Specialty Diagnoses / Procedures Referred By Tiburcio caicedo Referred To Contact Radiology Diagnoses Cyst of left ovary Procedures CT Abdomen Pelvis W Contrast Michael Jackson MD [address] [facility] [phone] [place] [address] Phone: tel: fax: [address] [phone] Referral ID Status Reason Start Date Expiration Date Visits Re quested Visits Authorized [id number] Closed 10/17/2022 12/16/2022 1 1 Encounter Details Date Type Department Care Team (Latest Contact Info) Description 10/20/2022 5:07 PM BRUSHER AND SHEARER - 10/20/2022 11:59 PM BRUSHER AND SHEARER Hospital Encounter [facility] [place] [address] Michael Jackson MD [address] [id number] [place] [address] Cyst of left ovary Discharge Disposition: Discharge to home or self [...] on file Legal Sex Female 4:48 PM BRUSHER AND SHEARER Gender Identity Not on file Sexual Orientation [...] Name Priority Date/Time Associated Diagnosis Comments CT ABDOMEN PELVIS W CONTRAST Schedule Routine, Read Routine (OP Routine) 10/20/2022 5:33 PM BRUSHER AND SHEARER Cyst of left ovary documented in this encounter Results * CT Abdomen Pelvis W Contrast (10/20/2022 5:33 PM BRUSHER AND SHEARER) Anatomical Region Laterality Modality Body N/A Computed Tomogra phy 10/21/2022 7:40 AM BRUSHER AND SHEARER Impressions 10/21/2022 7:40 AM BRUSHER AND SHEARER 1. Postoperative changes of left salpingo-oophorectomy. There is mild omental inflammation within the pelvis that could represent a source of pain. 2. Interval enlargement of a multiseptated right ovarian cystic lesion measuring 5.6 cm. Note that this has similar imaging characteristics as the resected left ovarian cystadenoma. This could be further evaluated with a pelvic ultrasound or MRI if clinically indicated. Electronically signed by: Sergio Benoit M.D. Narrative 10/21/2022 7:40 AM BRUSHER AND SHEARER EXAMINATION: CT ABDOMEN PELVIS W CONTRAST HISTORY: Left ovarian serous cystadenoma resected on 09/30/2022 with right lower quadrant pain. TECHNIQUE: ??Transaxial computed tomographic images of the abdomen pelvis ??were obtained with intravenous contrast according to the standard protocol after the uneventful administration of 95 mL Opti-Ray 350 intravenous contrast. COMPARISON: 06/28/2022 FINDINGS: ?? Lung bases are clear. Heart size normal. There is no pericardial effusion. Liver is mildly steatotic. No focal liver lesions. No intrahepatic or extrahepatic duct dilatation. Gallbladder surgically absent. The spleen right adrenal gland and pancreas are normal. There is an unchanged indeterminate left adrenal gland nodule measuring 10 mm. The kidneys are somewhat lobulated that could be related to scarring from prior urinary tract infection. Multiple low-attenuation lesions are seen; the smaller which are too small characterize large of which are cysts that are unchanged from prior examination. The small bowel and colon are normal in caliber without evidence of wall thickening or obstruction. Colonic diverticulosis without evidence of diverticulitis. The appendix is normal. No inguinal pelvic mesenteric or retroperitoneal adenopathy. Postoperative changes of left salpingo-oophorectomy. There is trace pelvic free fluid as well as stranding within the omentum that could represent postprocedural inflammatory changes. There is interval enlargement of a multicystic right ovarian lesion measuring 5.6 cm, previously 2.9 cm (image 22). Calcified uterine fibroid is seen. Bone windows demonstrate no suspicious lytic or blastic lesions. Procedure Note Sergio Benoit MD PhD - 10/21/2022 EXAMINATION: CT ABDOMEN PELVIS W CONTRAST HISTORY: Left ovarian serous cystadenoma resected on 09/30/2022 with right lower quadrant pain. TECHNIQUE: Transaxial computed tomographic images of the abdomen pelvis were obtained with intravenous contrast according to the standard protocol after the uneventful administration of 95 mL Opti-Ray 350 intravenous contrast. COMPARISON: 06/28/2022 FINDINGS: Lung bases are clear. Heart size normal. There is no pericardial effusion. Liver is mildly steatotic. No focal liver lesions. No intrahepatic or extrahepatic duct dilatation. Gallbladder surgically absent. The spleen right adrenal gland and pancreas are normal. There is an unchanged indeterminate left adrenal gland nodule measuring 10 mm. The kidneys are somewhat lobulated that could be related to scarring from prior urinary tract infection. Multiple low-attenuation lesions are seen; the smaller which are too small characterize large of which are cysts that are unchanged from prior examination. The small bowel and colon are normal in caliber without evidence of wall thickening or obstruction. Colonic diverticulosis without evidence of diverticulitis. The appendix is normal. No inguinal pelvic mesenteric or retroperitoneal adenopathy. Postoperative changes of left salpingo-oophorectomy. There is trace pelvic free fluid as well as stranding within the omentum that could represent postprocedural inflammatory changes. There is interval enlargement of a multicystic right ovarian lesion measuring 5.6 cm, previously 2.9 cm (image 22). Calcified uterine fibroid is seen. Bone windows demonstrate no suspicious lytic or blastic lesions. IMPRESSION: 1. Postoperative changes of left salpingo-oophorectomy. There is mild omental inflammation within the pelvis that could represent a source of pain. 2. Interval enlargement of a multiseptated right ovarian cystic lesion measuring 5.6 cm. Note that this has similar imaging characteristics as the resected left ovarian cystadenoma. This could be further evaluated with a pelvic ultrasound or MRI if clinically indicated. Electronically signed by: Sergio Benoit M.D. Prempr Elia Jackson MD IMG CT PROCEDURES Final Result documented in this encounter Visit Diagnoses Diagnosis Cyst of left ovary Other and unspecified ovarian cyst documented in this encounter Administered Medications Inactive Administered Medications - up to 3 most recent administrations Medication Order MAR Action Action Date Dose Rate Site ioversoL (OPTIRAY 350) syringe 100 mL 100 mL, intravenous, Once in imaging, contrast, Starting on Alfreda 10/20/22 at 1719, For 1 dose Contrast Given 10/20/2022 5:19 PM BRUSHER AND SHEARER 95 mL documented in this encounter Orders Medications Ordered That Brendan ht Not Have Been Administered Count Last Ordered Date First Ordered Date ioversoL (OPTIRAY 350) syringe 100 mL 1 11/2021 documented in this encounter Care Teams Orientation & Mobility Specialist Relationship Specialty Start Date End Date Andrei Clark MD PCP - General Internal Medicine 12/11/20 Kandace Freedman OT [address] [place] [address] Occupational Therapist Occupational Therapy 03/15/21 Christina Brunson MD [address] [place] [address] Obstetrics and Gynecology 08/02/22 documented as of this encounter
--- OUTSIDE RECORDS SUMMARY | 2024-11-17 14:26 | XMS_ITS | Encounter Summary ---
Author Organization [facility] Address [address] [place] [address] Phone Care Team Providers Care Palm Gatherer Name Role Phone Andrei Clark MD Primary Care Provider [phone] Kandace Freedman OT Unavailable [phone] Christina Brunson MD Unavailable [phone] Encounter Details Date Type Department Care Team (Late st Contact Info) Description 10/21/2022 Documentation [facility] Obstetrics and Gynecology [address] [facility] Advanced Medicine 13th [place] [address] [place] [address] Michael Jackson MD [address] [facility] [phone] [place] [address] Social History Tobacco Use Types Packs/Day Years [...] on file Legal Sex Female 4:48 PM FUNERAL CAR CHAUFFEUR Gender Identity Not on file Sexual Orientation Not on file documented as of this encounter Progress Notes * Michael Jackson MD - 10/21/2022 10:03 AM CST Called patient to inform her that her ct scan had normal post op changes and a right ovarian cyst that is 5.6cm. She was told about her lab work demonstrating an elevated wbc but not much different than preop. Hence she can call Dr. Alves to see about being placed on ocps due to ovarian cyst. However nothing to explain the deep rlq pain that the patient describes. She was grateful for the call. RAL CAR CHAUFFEUR documented in this encounter Plan of Treatment Not on file documented as of this encounter Visit Diagnoses Not on filedocumented in this encounter Care Teams Palm Gatherer Relationship Specialty Start Date End Date Andrei Clark MD PCP - General Internal Medicine 12/11/20 Kandace Freedman OT [address] [place] [address] Occupational Therapist Occupational Therapy 03/15/21 Christina Brunson MD [address] [place] [address] Obstetrics and Gynecology 08/02/22 documented as of this encounter
--- OUTSIDE RECORDS SUMMARY | 2024-11-17 14:26 | XMS_ITS | Encounter Summary ---
Author Organization [facility] Address [address] [place] [address] Phone Care Team Providers Care Flat Surfacer Jewel Name Role Phone Andrei Clark MD Primary Care Provider [phone] Kandace Freedman OT Unavailable [phone] Christina Brunson MD Unavailable [phone] Reason for Referral * MRI/CAT/PET Scan (Routine) - Closed Specialty Diagnoses / Procedures Referred By Contadonis t Referred To Contact Radiology Diagnoses Cyst of left ovary Procedures CT Abdomen Pelvis W Contrast Michael Jackson MD [address] [id number] [place] [address] Phone: tel: fax: [address] [address] Referral ID Status Reason Start Date Expiration Date Visits Re quested Visits Authorized [id number] Closed 10/17/2022 12/16/2022 1 1 SSMENT COORDINATOR Reason for Visit * Reason Comments Post-op Visit Encounter Details Date Type Department Care Team (Late st Contact Info) Description 10/17/2022 4:10 PM ASSESSMENT COORDINATOR Office Visit [facility] Obstetrics and Gynecology [address] [facility] Advanced Medicine 13th [place] [address] [place] [id number] Michael Jackson MD [address] [facility] [phone] [place] [address] Cyst of left ovary (Primary Dx); Pain, abdominal; Class 2 obesity Social History Tobacco Use Types Packs/Day Years [...] on file Legal Sex Female 4:48 PM ASSESSMENT COORDINATOR Gender Identity Not on file Sexual Orientation Not on file documented as of this encounter Last Filed Vital Signs Vital Sign Reading Time Taken Comments Blood Pressure 144/90 10/17/2022 4:07 PM ASSESSMENT COORDINATOR Pulse 97 10/17/2022 4:07 PM ASSESSMENT COORDINATOR Temperature 36.3 ??C (97.3 ??F) 10/17/2022 4:07 PM CS T Respiratory Rate 18 10/17/2022 4:07 PM ASSESSMENT COORDINATOR Oxygen Saturation 97% 10/17/2022 4:07 PM ASSESSMENT COORDINATOR Inhaled Oxygen Concentration - - Weight 93.8 kg (206 lb 14.4 oz) 10/17/2022 4:07 PM ASSESSMENT COORDINATOR Height 165 cm (5' 4.96 ) 10/17/2022 4:07 PM ASSESSMENT COORDINATOR Body Mass Index 34.47 10/17/2022 4:07 PM ASSESSMENT COORDINATOR documented in this encounter Progress Notes * Michael Jackson MD - 10/17/2022 12:00 AM CST PATIENT: EMMA FIGUEROA : 1985 BRITTANY: 10/17/2022 REASON FOR VISIT: Postoperative visit #1. HISTORY OF PRESENT ILLNESS: Ms. Figueroa is a 37-year-old female, who presented with abdominal left lower quadrant pain.This prompted a CT scan to be performed at [facility] that showed an 11.8 x 8.4 cm cystic mass with multiple septations in the left ovary. The patient went on to have a repeat ultrasound, which demonstrated that the patient's left ovary now measures 12.4 x 10.3 x 12.2 cm. The patient was counseled and underwent an exam under anesthesia, diagnostic laparoscopy, left salpingo-oophorectomy, right salpingectomy, right ovarian cystectomy, lysis of adhesions greater than 60 minutes, staging biopsies, and pelvic washings on 09/30/2022. The patient's final pathology revealed that she had a serous cystadenoma from the left ovary. Her right ovarian cyst was noted to be a corpus luteum cyst, and all the washings and biopsies were unremarkable. The patient presents today for her first postoperative visit. The patient has a distress score of an 8. The patient has nausea, which preexisted prior to surgery and is improved. She denises emesis. The patient states that she has a lot of fatigue. The patient can only lie on her back because if she lies on either her left or right side, she feels that there is a sharp pulling pain on the right side. This right pain is located in the right lower quadrant and also in the center of her abdomen. She describes it as sharp and occurs throughout the day. It is more than a soreness. The patient feltthat oxycodone only minimally took off the edge of this pain. The patient does complain of some palp itations and shortness of breath with exertion. The patient has constipation, which is improved since surgery, where she has a bowel movement every 2 to 3 days, and prior to surgery, it was weekly. The patient also feels that she has pain with urination. She does not feel like it is a urinary tractinfection, but feels that when she empties completely, she has discomfort. The patient feels that she is quite bloated. She feels that she has a decreased appetite. She does complain of headaches. The patient had a menstrual cycle from 10/04/2022 to 10/09/2022. The patient states that she did not have any clotting, but there was a brisk bright red blood flow. She denies any fever, dizziness, or vomiting. Otherwise, the patient does complain of feeling anxiety, that something is wrong but has not contacted the office or gone to the ER. She can point to her right lower quadrant underneath her pannus to a specific point tenderness, which is away from the laparoscopic port sites. She does complain of easy bruising. Additionally, her daughter would not explain to her what exactly had been perfo rmed. PAST MEDICAL HISTORY/REVIEW OF SYSTEMS: Unchanged from 09/30/2022, except for the above updates. PHYSICAL EXAMINATION: Vital Signs: Her blood pressure is 144/90, her pulse is 97, respirations are 18. Her weight is 206 pounds, which is a decline of 3 pounds from her last visit. Pain Score: Her pain score is a 4. Distress Score: Her distress score is an 8. General Appearance: The patient is a well-developed, well-nourished female in no acute distress. HEENT: Atraumatic, normocephalic, PERRLA, EOMI, EENT: Within normal limits. Neck is supple, withoutthyromegaly or JVD. LN Survey: No supraclavicular, inguinal, or femoral lymphadenopathy. Lungs: Clear to auscultation bilaterally. Heart: Regular rate and rhythm. Positive S1/S2. Breasts: Deferred. Back: No CVA or paraspinal tenderness. Abdomen: Her abdomen is soft, obese. No rebound. No guarding. There is no tenderness. The area thatthe patient points to with right lower quadrant tenderness, there are no palpable abnormalities under her pannus and away from the laparoscopic ports. There is normoactive bowel sounds. There is no evidence of distention. The laparoscopic ports are healing well without bruising nor tenderness. Extremities: No clubbing, cyanosis, or edema. Neurologic: The patient is awake, alert, and oriented x 3. Pelvic Exam: External genitalia: Within normal limits. Urethra: Without masses or tenderness. Urethral meatus: Without any lesions or prolapse. Bladder: No masses or tenderness. Vulva: Normal. Speculum Exam: The cervix appears to be grossly normal. Her uterus feels normal in size. There are no large adnexal masses, tenderness, or nodularity appreciated. Rectovaginal: Exam is confirmatory, and guaiac is negative. ASSESSMENT AND PLAN: A 37-year-old female, status post a laparoscopic left salpingo- oophorectomy, right ovarian cystectomy, lysis of adhesions, and staging biopsies on 09/30/2022. 1. Pathology: The patient was given the reassurance that her pathology is normal and was given a copy of her pathology report. 2. Mid-abdominal pain: The patient was made aware that she is going to have abdominal tenderness atthe central port site due to the fact that this is where the enlarged ovarian mass was removed. 3. Right lower quadrant pain: It is unclear as to the patient's etiology for right lower quadrant pain. The patient had a urinalysis dip performed in the office to rule out a urinary tract infection,and it just showed 100+ protein and 500+ glucose. The patient's urine does not appear to be consistent with a urinary tract infection, but we will send it to the lab for further evaluation. Additionally, the patient will have labs drawn, i.e. a CBC and CMP, in order to see if the patient has any abnormalities. Additionally, the patient will be scheduled for a CT scan of the abdomen and pelvis to evaluate this discomfort. The patient was reassured that there does not seem to be a reason to admitthe patient currently nor send her to the emergency room for further workup. Her exam is overall reassuring as well as the patient's symptomatology is not warranting a hospital admission at this time. 4. Anxiety: The patient has quite a bit of anxiety and attempted reassurance. 5. Pain: The patient will continue on just taking Tylenol. The patient does not take Aleve or ibuprofen due to her chronic kidney issues. 6. Follow-up would be ideally in 4 weeks' time, unless the CT scan demonstrates an abnormality thatwarrants further evaluation. ELECTRONICALLY SIGNED - 10/18/2022 11:56 AM Michael Jackson M.D. Professor, Department of Obstetrics and Gynecology Director of Gynecological Oncology Clinical Research Division of Gynecologic Oncology [facility] [employer] [id number] cc: ANDREI CLARK MD / / GERARDO SNOW MD / / KAMERON MCDONOUGH MD / SSMENT COORDINATOR documented in this encounter Miscellaneous Notes * Treatment Plan - Michael Jackson MD - 10/17/2022 4:10 PM CST Please schedule Emma Parker Brant for the following: Requested Order Contrast Indication When CXR CT Chest, Abdomen, and Pelvis CT Abdomen and Pelvis X rlq pain and mid abdomen pain post surgery LEEP (during clinic hours) 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 Ultrasound Follow up in 4 weeks x Mammogram Follow up in 4 weeks x Initiate Survivoship Care Plan Surveillance Labs (CBC w/ Diff, CMP, Magnesium, CA125) Labwork: cbc, cmp today x UA/UCx x SSMENT COORDINATOR SSMENT COORDINATOR SSMENT COORDINATOR documented in this encounter Plan of Treatment Not on file documented as of this encounter Procedures Procedure Name Priority Date/Time Associated Diagnosis Comments URINALYSIS AND REFLEX TO MICROSCOPIC AND CULTURE Routine 10/17/2022 5:11 PM ASSESSMENT COORDINATOR Cyst of left ovary URINALYSIS, MICROSCOPIC ONLY Routine 10/17/2022 5:11 PM ASSESSMENT COORDINATOR Cyst of left ovary POCT URINALYSIS DIPSTICK Routine 10/17/2022 4:47 PM ASSESSMENT COORDINATOR Cyst of left ovary documented in this encounter Results * CT Abdomen Pelvis W Contrast (10/20/2022 5:33 PM ASSESSMENT COORDINATOR) Anatomical Region Laterality Modality Body N/A Computed Tomogra phy 10/21/2022 7:40 AM ASSESSMENT COORDINATOR Impressions 10/21/2022 7:40 AM ASSESSMENT COORDINATOR 1. Postoperative changes of left salpingo-oophorectomy. There [...] Sergio Benoit M.D. Narrative 10/21/2022 7:40 AM ASSESSMENT COORDINATOR EXAMINATION: CT ABDOMEN PELVIS W CONTRAST HISTORY: [...] indicated. Electronically signed by: Sergio Benoit M.D. Premabhilash Jackson MD IMG CT PROCEDURES Final Result * Urinalysis, microscopic only (10/17/2022 5:11 PM ASSESSMENT COORDINATOR) WBC, ur 0-5 0 - 5 /HPF [facility] RBC, ur 0-2 0 - 2 /HPF [facility] Epithelial cells, squamous, ur 1-5 0 - 5 /HPF [facility] Culture Reflex Comment Reflex conditions for urine culture (WBC >10) not met. [facility] Urine, clean voided 10/17/2022 5:11 PM ASSESSMENT COORDINATOR 10/17/2022 7:53 PM ASSESSMENT COORDINATOR Premal Elia Jackson MD LAB URINE ORDERABLES Fin al Result LUCI[facility] Department [place] [address] * (ABNORMAL) Urinalysis reflex to microscopic and culture Urine, clean voided (10/17/2022 5:11 PM ASSESSMENT COORDINATOR) Color, ur Straw Yellow [facility] Clarity, ur Clear Clear [facility] Specific gravity, ur 1.039(H) 1.003 - 1.[address] [facility] [facility] pH, urine 6.[address] Protein, ur ql 2+(A) Negative [facility] Glucose, ur ql 4+(A) Negative [facility] Ketones, ur Negative Negative [facility] Bilirubin, ur Negative Negative [facility] Blood, ur Negative Negative [facility] Urobilinogen, ur <2.0 <2.0 mg/dL [facility] Nitrite, ur Negative Negative [facility] Leukocyte esterase, ur Negative Negative [facility] UA reflex comment Reflex to microscopic UA will be performed. [facility] Urine, clean voided 10/17/2022 5:11 PM ASSESSMENT COORDINATOR 10/17/2022 7:53 PM ASSESSMENT COORDINATOR Narrative [facility] - 10/17/2022 8:29 PM ASSESSMENT COORDINATOR ?? Urine pH is affected by diet, medications, systemic acid-base disturbances, and renal tubular function. ??pH may affect urinary stone formation. ??For example, urine pH below 6.0 may help reduce the tendency for calcium phosphate stones and pH greater than 6.0 may reduce the tendency for uric acid stone formation. Source: [employer]. Last revised 11-30-2017 us Premal Elia Jackson MD LAB MICROBIOLOGY - GENER AL ORDERABLES Final Result Performing Organization Address [facility] Co de Phone Number LUCIEN SAM [facility] Department [place] [address] * Comprehensive metabolic panel (10/17/2022 5:08 PM ASSESSMENT COORDINATOR) Sodium 143 135 - 145 mmol/L [facility] Potassium, pl 4.2 3.3 - 4.9 mmol/L [facility] Chloride 106 97 - 110 mmol/L [facility] CO2 26 22 - 32 mmol/L [facility] Anion gap 11 2 - 15 mmol/L [facility] BUN 22 8 - 25 mg/dL [facility] Creatinine 0.91 0.60 - 1.10 mg/dL [facility] Glucose 122 70 - 199 mg/dL [facility] Comment: Interpretive Data Fasting glucose >/= 126 [...] 2017. Calcium 10.0 8.5 - 10.3 mg/dL [facility] Bilirubin, total 0.2 0.1 - 1.2 mg/dL [facility] Protein, pl 8.2 6.5 - 8.5 g/dL [facility] Albumin 4.4 3.5 - 5.0 g/dL [facility] Alk phos 95 40 - 130 Units/L [facility] ALT 21 7 - 45 Units/L [facility] AST 18 10 - 45 Units/L [facility] Blood 10/17/2022 5:08 PM ASSESSMENT COORDINATOR 10/17/2022 5:51 PM ASSESSMENT COORDINATOR us Premal Elia Jackson MD LAB BLOOD ORDERABLES Fin al Result [facility] Department of Laboratories [place], [place] [id number] * (ABNORMAL) CBC with auto differential (10/17/2022 5:08 PM ASSESSMENT COORDINATOR) WBC 11.7(H) 3.8 - 9.9 K/cumm [facility] Hgb 12.0 11.9 - 15.5 g/dL [facility] Hct 39.4 35.6 - 45.5 % [facility] Plt 423(H) 150 - 400 K/cumm [facility] MPV 8.4(L) 9.1 - 12.3 fL [facility] RBC 4.56 3.90 - 5.20 M/cumm [facility] MCV 86.4 81.3 - 96.4 fL [facility] MCH 26.3(L) 27.1 - 33.3 pg [facility] MCHC 30.5(L) 32.3 - 35.7 g/dL [facility] RDW CV 14.6 11.1 - 14.9 % [facility] RDW SD 45.9 35.7 - 48.1 fL [facility] NRBC abs 0.00 0.00 - 0.01 K/cumm [facility] Blood 10/17/2022 5:08 PM ASSESSMENT COORDINATOR 10/17/2022 5:51 PM ASSESSMENT COORDINATOR [facility] Elia Jackson MD LAB BLOOD ORDERABLES Fin al Result [facility] Department [place] [address] * (ABNORMAL) POCT urinalysis dipstick (10/17/2022 4:47 PM ASSESSMENT COORDINATOR) Color, Urine, POC Yellow Clarity, ur, POC Clear Clear Glucose, ur, POC 500.(A) Negative MG/DL Bilirubin, ur, POC Negative Negative, Small, Moderate, Large Ketones, ur, POC Negative Negative Specific [place], POC 1.030 1.005 - 1.030 Blood, ur, POC Negative Negative pH, ur, POC 5.0 5.0 - 8.0 Protein, ur, POC 100.(A) Negative Urobilinogen, urine, POC 0.2 0.2 - 1.0 mg/dL Nitrite, ur, POC Negative Negative Leukocytes, ur, POC Negative Negative Lot Number [id number] Comment:Exp 07/29/2023 Urine 10/17/2022 4:47 PM ASSESSMENT COORDINATOR us Premal Elia Jackson MD POINT OF CARE TEST ORDER MALLORY Final Result documented in this encounter Visit Diagnoses Diagnosis Cyst of left ovary- Primary Other and unspecified ovarian cyst Pain, abdominal Class 2 obesity Cyst of left ovary Other and unspecified ovarian cyst documented in this encounter Discontinued Medications Medication Sig Discontinue Reason Start Date End Da te blood glucose diagnostic strip USE A TEST STRIP TO TEST BLOOD SUGAR 3 TO 4 TIMES DAILY BEFORE MEALS Therapy completed 2021 10/11/2022 documented as of this encounter Historical Medications * This list may reflect changes made after this encounter. Medication Sig Dispense Quantity Refills Last Filled Start D ate End Date doxepin (SINEquan) 10 mg capsule 10/14/2022 added in this encounter Care Teams Flat Surfacer Jewel Relationship Specialty Start Date End Date Andrei Clark MD PCP - General Internal Medicine 12/11/20 Kandace Freedman OT [address] [place] [address] Occupational Therapist Occupational Therapy 03/15/21 Christina Brunson MD [address] [place] [address] Obstetrics and Gynecology 08/02/22 documented as of this encounter
--- OUTSIDE RECORDS SUMMARY | 2024-11-17 14:26 | XMS_ITS | Encounter Summary ---
Author Organization [facility] Address [address] [place] [address] Phone Care Team Providers Care Family Assessment Worker Name Role Phone Andrei Clark MD Primary Care Provider [phone] Kandace Freedman OT Unavailable [phone] Christina Brunson MD Unavailable [phone] Reason for Referral * MRI/CAT/PET Scan (Routine) - Closed Specialty Diagnoses / Procedures Referred By Tiburcio caicedo Referred To Contact Radiology Procedures CT Abdomen Pelvis W Contrast Preet Hernandez MD [address] [place] [address] Phone: tel: Referral ID Status Reason Start Date Expiration Date Visits Re quested Visits Authorized [id number] Closed 04/02/2024 05/02/2025 1 1 Encounter Details Date Type Department Care Team (Late st Contact Info) Description 04/02/2024 Orders Only [facility] Obstetrics and Gynecology [address] [facility] Advanced Medicine 13th [place] [address] [place] [address] Preet Hernandez MD [address] [place] [address] Social History Tobacco Use Types Packs/Day Years [...] on file Legal Sex Female 4:48 PM RADIOLOGIST PHYSICIAN Gender Identity Not on file Sexual Orientation Not on file documented as of this encounter Plan of Treatment Not on file documented as of this encounter Procedures Procedure Name Priority Date/Time Associated Diagnosis Comments CT ABDOMEN PELVIS W CONTRAST Schedule Routine, Read Routine (OP Routine) 02/24/2024 7:46 AM CDT documented in this encounter Results * CT Abdomen Pelvis W Contrast (02/24/2024 7:46 AM CDT) Anatomical Region Laterality Modality Body N/A Computed Tomogra phy Historical Provider MD [facility] CT PROCEDURES Final R esult documented in this encounter Visit Diagnoses Not on filedocumented in this encounter Care Teams Family Assessment Worker Relationship Specialty Start Date End Date Andrei Clark MD PCP - General Internal Medicine 12/11/20 Kandace Freedman OT [address] [place] [address] Occupational Therapist Occupational Therapy 03/15/21 Christina Brunson MD [address] [place] [address] Obstetrics and Gynecology 08/02/22 documented as of this encounter
--- OUTSIDE RECORDS SUMMARY | 2024-11-17 14:26 | XMS_ITS | Encounter Summary ---
Author Organization [facility] Address [address] [facility] [place] [address] Care Team Providers Care Ornamental Iron Worker Name Role Phone Andrei Clark MD Primary Care Provider [phone] Kandace Freedman OT Unavailable [phone] Christina Brunson MD Unavailable [phone] Reason for Referral * Diagnostic Imaging (Routine) - Pending Review Specialty Diagnoses / Procedures Referred By Contac t Referred To Contact Diagnoses Cyst of left ovary Procedures US Pelvis Complete Michael Jackson MD [address] [facility] [phone] [place] [address] Phone: tel: fax: [facility] (All Locations) Referral ID Status Reason Start Date Expiration Date V isits Requested Visits Authorized [id number] Pending Review 04/01/2024 05/01/2025 1 1 Reason for Visit * Diagnostic Imaging (Routine) - Pending Review Specialty Diagnoses / Procedures Referred By Contac t Referred To Contact Diagnoses Cyst of left ovary Procedures US Pelvis Complete Michael Jackson MD [address] [facility] [phone] [place] [address] Phone: tel: fax: [facility] (All Locations) Referral ID Status Reason Start Date Expiration Date V isits Requested Visits Authorized [id number] Pending Review 04/01/2024 05/01/2025 1 1 Encounter Details Date Type Department Care Team (Latest Contact Info) Description 04/10/2024 2:40 PM CDT - 04/10/2024 11:59 PM CDT Hospital Encounter [facility] [address] [facility] 7th [address], [address] [facility] [place] [address] Cyst of left ovary Discharge Disposition: Discharge [...] on file Legal Sex Female 4:48 PM MANAGER PACKAGING Gender Identity Not on file Sexual Orientation [...] COMPLETE Schedule Routine, Read Routine (OP Routine) 04/10/2024 2:40 PM CDT Cyst of left ovary documented in this encounter Results * US [...] cyst documented in this encounter Care Teams Ornamental Iron Worker Relationship Specialty Start Date End Date Andrei Clark MD PCP - General Internal Medicine 12/11/20 Kandace Freedman OT [address] [place] [address] Occupational Therapist Occupational Therapy 03/15/21 Christina Brunson MD [address] [facility] [address] [place] [address] Obstetrics and Gynecology 08/02/22 documented as of this encounter
--- OUTSIDE RECORDS SUMMARY | 2024-11-17 14:26 | XMS_ITS | Referral Summary ---
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 Pérez. Recs: 1. Call [facility] to make appt (she understands she needs to be the one to call) for CBT for FND, anxiety, depression. 2. Consider Valium after I discuss with Dr. Pérez. 3. Continue with psychiatry. 4. Start positive self talk and meditative exercises for spells . 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/2020 2:55 PM THREAD TWISTER): She has abnormal involuntary movements including vocalizations, [...] video EEG (scheduled for next month at [facility]) to clarify whether any aspect of these [...] complication, without long-term current use of insulin ([facility]) 04/04/2017 Polycystic ovaries 04/04/2017 Hypertensive chronic kidney disease 03/29/2017 Hematuria 03/29/2017 Polycystic kidney disease 03/29/2017 Stage 1 chronic kidney disease 03/29/2017 Right flank pain 10/21/2013 Pyelonephritis 10/19/2013 Immunizations Name Administration Dates Next Due Pneumococcal Polysaccharide PPV23 06/01/2019 Tetanus Toxoid, Unspecified 11/20/2004 Social History Tobacco Use Types Packs/Day Years [...] on file Legal Sex Female 4:48 PM THREAD TWISTER Gender Identity Not on file Sexual Orientation [...] 05/13/2024 9:21 AM CDT Plan of Treatment Not on file Procedures Procedure Name Priority Date/Time Associated Diagnosis Comments EGFR Routine 10/17/2022 5:08 PM THREAD TWISTER Cyst of left ovary HEMOGLOBIN A1C STAT 08/23/2019 5:28 PM CDT from Last 3 Months or Most Recently Relevant to Health Maintenance Results * (ABNORMAL) eGFR (10/17/2022 5:08 PM THREAD TWISTER) eGFR 82(L) 90 - 130 mL/min/1. 73 [...] last reviewed 2021. Blood 10/17/2022 5:08 PM THREAD TWISTER 10/17/2022 5:58 PM THREAD TWISTER us Premal Elia Jackson MD LAB BLOOD ORDERABLES Fin al Result [facility] Department [place] [address] * (ABNORMAL) Hemoglobin A1c (08/23/2019 5:28 PM [...] children were not included. ?? (Diabetes Care [id number], 2008). ??The eAG is not equivalent to a fasting glucose. Blood specimen (specimen) 08/23/2019 5:28 PM CDT 08/23/2019 6:04 PM CDT us Notinfile Unknown LAB BLOOD ORDERABLES Final Res ult [facility] [address] [place] [address] from Last 3 Months or Most Recently Relevant to Health Maintenance Insurance [employer] [facility] [employer] [facility] [employer] Advance Directives For more information, please contact: [phone] * Full Code (Latest Code Status on File) Date Activated Date Inactivated Comments 01/25/2021 9:49 AM 01/31/2021 8:38 PM * Full Code Date Activated Date Inactivated Comments 02/11/2019 4:38 PM 02/13/2019 11:05 AM Care Teams Shell Trim Operator Relationship Specialty Start Date End Date Andrei Clark MD PCP - General Internal Medicine 12/11/20 Kandace Freedman OT [address] [place] [address] Occupational Therapist Occupational Therapy 03/15/21 Christina Brunson MD [address] [facility] [address] [place] [address] Obstetrics and Gynecology 08/02/22
--- OUTSIDE RECORDS SUMMARY | 2024-11-17 14:26 | XMS_ITS | Encounter Summary ---
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 Name Role Phone Andrei Clark MD Primary Care Provider [phone] Kandace Freedman OT Unavailable [phone] Christina Brunson MD Unavailable [phone] Reason for Visit * Auth/Cert Specialty Diagnoses / Procedures Referred By Tiburcio caicedo Referred To Contact Diagnoses Adnexal mass Adnexal mass [N94.89] Procedures TN LAP,RMV ADNEXAL STRUCTURE LAPAROSCOPY DIAGNOSTIC - OPERATIVE LAPAROSCOPIC SALPINGECTOMY LAPAROSCOPIC OOPHORECTOMY LAPAROSCOPIC TOTAL HYSTERECTOMY EXPLORATORY LAPAROTOMY Referral ID Status Reason Start Date Expiration Date Visits Re quested Visits Authorized [id number] 1 1 Encounter Details Date Type Department Care Team (Late st Contact Info) Description 09/30/2022 11:05 AM FACILITIES DIRECTOR - 09/30/2022 1:50 PM FACILITIES DIRECTOR Surgery [facility] Operating Room [address] [place] [id number] Michael Jackson MD [id number] [place] [address] LAPAROSCOPY DIAGNOSTIC - OPERATIVE Surgery Details Date/Time Status Location OR Service Patient Class Case Cl ass Case Type Trauma Case? 09/30/2022 11:05 AM Posted [facility] OR POD 1 327 Obstetrics / Gynecology Outpatient Elective Panel 1 Procedure LRB Anes Op Region Wound Class Comments LAPAROSCOPY DIAGNOSTIC - OPERATIVE N/A General Abdomen Class II - Clean Contaminated LAPAROSCOPIC SALPINGECTOMY Bilateral General Abdomen Class II - Clean Contaminated LAPAROSCOPIC OOPHORECTOMY Left General Abdomen Class II - Clean Contaminated CYSTECTOMY OVARIAN Right General Pelvis Class II - Clean Contaminated LYSIS OF ADHESIONS - GREATER THAN 60 MINUTES N/A General Abdomen Class II - Clean Contaminated STAGING BIOPSIES N/A General Abdomen Class II - Clean Contaminated Surgeon Surgeon Role Service Panel Michael Jackson MD Primary Obstetrics / Gy necology 1 Heriberto Eisenberg MD Fellow Obstetrics / Gynecology 1 Kita Bender MD Resident - Assisting Obst etrics / Gynecology 1 Case Notes 09/29@1138 can not start later meetings in the afternoon.(EF)09/29@0857 Office want to start at 11am per samantha via case msg.(EF) documented in this encounter Social History Tobacco [...] on file Legal Sex Female 4:48 PM FACILITIES DIRECTOR Gender Identity Not on file Sexual Orientation Not on file documented as of this encounter Last Filed Vital Signs Vital Sign Reading Time Taken Comments Blood Pressure 153/97 09/30/2022 9:40 AM FACILITIES DIRECTOR Pulse 94 09/30/2022 9:40 AM FACILITIES DIRECTOR Temperature 36.9 ??C (98.4 ??F) 09/30/2022 9:40 AM CS T Respiratory Rate 23 09/30/2022 9:40 AM FACILITIES DIRECTOR Oxygen Saturation 100% 09/30/2022 9:40 AM FACILITIES DIRECTOR Inhaled Oxygen Concentration - - Weight - - Height - - Body Mass Index - - documented in this encounter Discharge Instructions * Discharge Instructions* Katelynn Rosa MD - 09/30/2022 5:29 PM FACILITIES DIRECTOR Discharge Instructions Call Your Doctor If: * You have a fever more than 101 degrees. * You have nausea and vomiting. * You do not have a bowel movement for 3 days. * You have a hard time breathing or pain in your chest. * Your pain medication is not helping your pain. * You have foul smelling drainage from your vagina or incision. * You are bleeding more than you do during your regular period. Diet: * You may eat all the foods you ate before surgery. * Drink at least 8-10 cups of water a day. * Avoid alcohol and caffeine. Activity: * Do NOT drive for 1 week or longer if you are taking narcotic pain medication. * Do NOT place anything in the vagina for 6 weeks or until the doctor says it???s OK. (No tampons, douching or sexual intercourse.) * It is normal to have vaginal dryness after surgery. When you return to having sexual intercourse,you may need to use water-soluble lubricant in your vagina, such as K-Y Jelly. Longer foreplay may also help. * Do NOT lift objects over 10 pounds for 1 week. * No strenuous activity for 2 weeks * It is OK to slowly climb stairs. * Staying active is very important to keep your bowels moving and improving circulation. * Take short walks every day. Care Instructions: * You may shower. Let the water run over your incision. Pat wounds dry with a clean towel. Do not rub. * No tub baths or soaking until your doctor says it is OK. * Keep incision clean and dry between showers. * You may have paper strips over your wound. It is OK to shower but do NOT scrub them. The paper strips will fall off in about 1 week. If they don???t fall off on their own you may remove them. Normal Changes After Surgery: * You may feel puffy and bloated for 1-2 weeks. * You may have some bruising on your belly. * You may have bleeding and discharge from your vagina for up to 6 weeks. * You may have mild shoulder pain from gas used during your surgery; this will get better with time. Follow Up: * It is important that you keep your follow up appointment. * If you need to change it, please call the office to reschedule. LITIES DIRECTOR documented in this encounter Medications at Time [...] (10 mg total) by mouth every morning ferrous sulfate (IRON ORAL) Take 1 tablet [...] 7 DAYS (NEEDS APPT FOR FURTHER REFILLS) blood glucose diagnostic strip USE A TEST STRIP TO TEST BLOOD SUGAR 3 TO 4 TIMES DAILY BEFORE MEALS 2021 2 Trulicity 4.5 mg/0.5 mL pen injector Inject 4.5 mg under the skin once a week 08/08/2022 4 documented as of this encounter Ordered Prescriptions Prescription Sig Dispense Quantity Refills Last Filled Start Date End Date oxyCODONE (ROXICODONE) 5 mg immediate release tabletIndications: Pain Take 1 tablet (5 mg total) by mouth every 4 (four) hours as needed for pain 10 tablet 09/30/2022 acetaminophen (TYLENOL) 500 mg tabletIndications: Pain Take 2 tablets (1,000 mg total) by mouth every 6 (six) hours as needed for pain 30 tablet 09/30/2022 ibuprofen (ADVIL,MOTRIN) 600 mg tablet Take 1 tablet (600 mg total) by mouth every 6 (six) hours as needed for pain 30 tablet 09/30/2022 documented in this encounter Discharge Disposition Disposition Code Departure Means Destination Discharge to home or self care documented in this encounter Progress Notes * Cecilia Lee MD - 09/30/2022 9:11 PM CST R1 Update 09/30/22 37 y.o. POD#0 s/p Diagnostic laparoscopy, Left salpingo-oophorectomy, Right salpingectomy Right ovarian cystectomy, Lysis of adhesions - greater than 60 minutes, Staging biopsies . Patient having continued nausea and vomiting. Has several allergies listed to most antiemetic drugs with reaction listed as anxiety/panic attacks. Patient received 50 mg benadryl and haldol. Improved but then had emesis after getting up to go to the restroom. Vital signs: BP 154/91 Pulse 82 Temp 36.2 ??C (97.2 ??F) Resp 18 SpO2 96% Phys Exam: NAD, RRR, non-labored breathing, abdomen non-tender, incisions c/d/i A/P: 1. ID: Afebrile. No signs/symptoms infection. 2. Heme: EBL 50cc. No signs/symptoms acute blood loss anemia. 3. CV/Pulm: VSS. Asymptomatic. 4. GI/: ADAT. CTM UOP. 5. Pain: ibu, APAP, and oxycodone Will given 0.25 mg of ativan now. Had long discussion with patient regarding her N/V. She reports she cannot take anything at home for this. Reports in the past she has taken an SSRI, but that was discontinued and her panic attacks have worsened. She is not willing to try an antinausea med due to this. Discussed trying ativan now. Precautions given if she is to discharge home and answered all questions. Discussed that if her nausea does not improve we will consider admit for nausea control but will be limited by what we can use. Cecilia Lee MD LITIES DIRECTOR documented in this encounter H&P Notes * Michael Jackson MD - 09/30/2022 12:57 PM CST I have reviewed the H&P, examined the patient, and endorse the findings as written. Plan of Care : Based on the above findings, I consider Emma Figueroa to be an acceptable risk for :Procedure(s): LAPAROSCOPY DIAGNOSTIC - OPERATIVE LAPAROSCOPIC SALPINGECTOMY LAPAROSCOPIC OOPHORECTOMY LAPAROSCOPIC TOTAL HYSTERECTOMY EXPLORATORY LAPAROTOMY LITIES DIRECTOR Source Note - Michael Jackson MD - 09/30/2022 12:52 PM FACILITIES DIRECTOR REASON FOR VISIT: Left adnexal mass. HISTORY OF PRESENT ILLNESS: Ms. Figueroa is a 37-year-old female with a BMI of 34.8 kg/m?? who presented with abdominal left lower quadrant pain and blood in her stool. This prompted her to get a CT scan done at [facility] that demonstrates that she has an 11.8 x 8.4 cystic mass with multiple septations in the left ovary. There are no dilated loops of bowel and the appendix appeared normal and no pathologically enlarged lymph nodes. The patient was sent for a CEA on 07/27/2022, which was normal at 0.3, a CA-19-9 of 6 as well as a CA-125 of 13.8. The patient then had an ultrasound performed on 07/23/2022, which demonstrates that the uterus measures 10.2 x 4.4 x 6.9 cm and the endometrial stripe was 7 mm. The right ovary was normal and the left ovary measured 12.4 x 10.3 x 12.2 cm. It was multiloculated.There was mild vascular flow within the septations. A solid component could not be seen. Due to thefact that the patient had this enlarged adnexal mass, the patient is sent to [facility] for further evaluation. The patient has a multitude of symptoms which seem to be maybe not all related to gynecologic issues. She has nausea, which has been ongoing for 1 year. The patient is scheduled to have a colonoscopyon 09/02/2022. She also complains of fatigue. She has pain in her abdomen and head due to her migraines. She has some mild changes in vision. She has mild changes in hearing, chest pain, palpitationsand shortness of breath with exertion. Of note, her shortness of breath is worse with her exertion.She does complain of constipation. She has blood in her bowel movements as well as some pain with urination. The patient does complain of abdominal bloating. She has a rash which intermittently is fle eting in different areas of her body. She has numbness in her hands, face, feet, back and legs. Shecomplains of tingling there as well. She has headaches all the time. She has depression and mood changes as well as hair loss. The patient is not sexually active currently and has not been in a relationship at least since December 2021. PAST MEDICAL HISTORY: Obesity of 34.8 kg/m??. Hypertension. Anemia, but never required a blood transfusion. Diabetes with a hemoglobin A1c of 7.1 Focal awareness seizures. Intracranial hypertension causing headaches. GERD. 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 Fatty liver. Osteoarthritis. Probable sleep apnea but has never been tested. PAST SURGICAL HISTORY: section 2001, another in 2003. Laparoscopic cholecystectomy in 2005. Tubal ligation with her section in 2003. MEDICATIONS: Trulicity 4.5 mg weekly. Tresiba 40 units at bedtime. Aspirin 81 mg p.o. daily. Bupropion 150 mg p.o. daily. Metformin ER 500 mg twice daily. Farxiga 10 mg daily. Rosuvastatin 10 mg daily. Senna 1 tablet twice daily. Losartan 100 mg daily. Ferrous sulfate 325 mg once daily. Methocarbamol 750 mg 3 times a day. ALLERGIES: She is allergic to all 4 medications for nausea, which are metoclopramide, ondansetron as well as Phenergan and Compazine. 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 Her last menstrual cycle was 2 that she had in the middle of the month. Her last Pap smear was in April 2022. She started experiencing menarche at the age of 13 with regular menses every 28 days lasting for 5 to 7 days. However, for the last several months, she has had menstrual cycles more frequently. The patient has never had an endometrial biopsy. She denies any history of abnormal Pap smears. She has a remote history of HSV 2. She never took control pills or hormone replacement therapy nor had the HPV vaccine. HEALTH MAINTENANCE: She has never had a mammogram and has a colonoscopy scheduled for 09/02/2022. Her bone density has never been done. SOCIAL HISTORY: She used to smoke a pack per day on and off for 25 years and quit approximately 26 months ago. She formerly used to drink. She denies any drug use. She is and presents today alone. FAMILY HISTORY: Somewhat unknown as to family members on the maternal side have had breast cancer, but unknown age.Two family members including her great grandmother had ovarian cancer and someone on her mother's side had kidney cancer. Of note, her mother currently has had a D&C and is having failing health,but has not told her daughter what is the underlying reason for this. PHYSICAL EXAMINATION: Vital Signs: Her blood pressure is 169/97, pulse is 92, respirations are 16. Her weight is 209 pounds for a BMI of 34.8 kg/m??. General Appearance: Patient is a well developed, well nourished female in no acute distress. HEENT: Supple neck. No supraclavicular lymphadenopathy. No thyromegaly. Lungs: Clear to auscultation bilaterally. Heart: Regular rate and rhythm. Positive S1/S2. Breasts: Deferred Abdomen: Soft, obese with a well-healed Pfannenstiel incision. Extremities: No clubbing, cyanosis, or edema Back: No CVA tenderness. Pelvic Exam: External genitalia: Within normal limits. Urethra: Without masses or tenderness. Urethral meatus: Without any lesions or prolapse. Bladder: No masses or tenderness. Vulva: Normal Speculum Exam: The cervix appears to be nulliparous. After verbal consent and a negative urine test, the anterior lip of the cervix was grasped with a single-tooth tenaculum. The uterus sounded to approximately 6.5 cm. Two passes were taken without difficulty. There was noted to be a minimal amount of tissue that was obtained. All instruments were removed. The tenaculum site requires lulu geronimo nitrate to be applied. Bimanual Examination: Cervix feels normal in size, shape, and consistency. Uterus feels normal in size. The left adnexa feels quite mobile. It is not fixed, is not nodular. There is some pressure that the patient feels with this exam. Rectovaginal: Exam is confirmatory. Guaiac is negative. ASSESSMENT AND PLAN: This is as 37-year-old female with the following issues. Left adnexal mass: The patient was consented for an exam under anesthesia, diagnostic laparoscopy, left salpingo-oophorectomy, right salpingectomy, possible total laparoscopic hysterectomy, possible exploratory laparotomy, other indicated procedures, possible staging. The patient understands the risks include, but are not limited to bleeding, infection, damage to surrounding organs, blood vessels, and nerves as well the 1% risk of an identified injury at the time of surgery that warrants an additional procedure. The patient was made aware that it is in her best interest to keep her other ovary in order to keep her hormonal function, especially with her other comorbidities. The patient wouldbenefit from not having to need hormone replacement therapy. The patient will consider this and then make her final decision on the day of surgery. Surgical and blood consents were signed today. Diabetes: The patient's hemoglobin A1c overall is well controlled. Abnormal uterine bleeding: The patient's endometrial biopsy was performed and was negative for abnormality. Gastrointestinal: Her colonoscopy showed diverticulosis. LITIES DIRECTOR * Michael Jackson MD - 09/30/2022 12:52 PM CST REASON FOR VISIT: Left adnexal mass. HISTORY OF PRESENT ILLNESS: Ms. Figueroa is a 37-year-old female with a BMI of 34.8 kg/m?? who presented with abdominal left lower quadrant pain and blood in her stool. This prompted her to get a CT scan done at [facility] that demonstrates that she has an 11.8 x 8.4 cystic mass with multiple septations in the left ovary. There are no dilated loops of bowel and the appendix appeared normal and no pathologically enlarged lymph nodes. The patient was sent for a CEA on 07/27/2022, which was normal at 0.3, a CA-19-9 of 6 as well as a CA-125 of 13.8. The patient then had an ultrasound performed on 07/23/2022, which demonstrates that the uterus measures 10.2 x 4.4 x 6.9 cm and the endometrial stripe was 7 mm. The right ovary was normal and the left ovary measured 12.4 x 10.3 x 12.2 cm. It was multiloculated.There was mild vascular flow within the septations. A solid component could not be seen. Due to thefact that the patient had this enlarged adnexal mass, the patient is sent to [facility] for further evaluation. The patient has a multitude of symptoms which seem to be maybe not all related to gynecologic issues. She has nausea, which has been ongoing for 1 year. The patient is scheduled to have a colonoscopyon 09/02/2022. She also complains of fatigue. She has pain in her abdomen and head due to her migraines. She has some mild changes in vision. She has mild changes in hearing, chest pain, palpitationsand shortness of breath with exertion. Of note, her shortness of breath is worse with her exertion.She does complain of constipation. She has blood in her bowel movements as well as some pain with urination. The patient does complain of abdominal bloating. She has a rash which intermittently is fle eting in different areas of her body. She has numbness in her hands, face, feet, back and legs. Shecomplains of tingling there as well. She has headaches all the time. She has depression and mood changes as well as hair loss. The patient is not sexually active currently and has not been in a relationship at least since December 2021. PAST MEDICAL HISTORY: Obesity of 34.8 kg/m??. Hypertension. Anemia, but never required a blood transfusion. Diabetes with a hemoglobin A1c of 7.1 Focal awareness seizures. Intracranial hypertension causing headaches. GERD. 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 Fatty liver. Osteoarthritis. Probable sleep apnea but has never been tested. PAST SURGICAL HISTORY: section 2001, another in 2003. Laparoscopic cholecystectomy in 2005. Tubal ligation with her section in 2003. MEDICATIONS: Trulicity 4.5 mg weekly. Tresiba 40 units at bedtime. Aspirin 81 mg p.o. daily. Bupropion 150 mg p.o. daily. Metformin ER 500 mg twice daily. Farxiga 10 mg daily. Rosuvastatin 10 mg daily. Senna 1 tablet twice daily. Losartan 100 mg daily. Ferrous sulfate 325 mg once daily. Methocarbamol 750 mg 3 times a day. ALLERGIES: She is allergic to all 4 medications for nausea, which are metoclopramide, ondansetron as well as Phenergan and Compazine. 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 Her last menstrual cycle was 2 that she had in the middle of the month. Her last Pap smear was in April 2022. She started experiencing menarche at the age of 13 with regular menses every 28 days lasting for 5 to 7 days. However, for the last several months, she has had menstrual cycles more frequently. The patient has never had an endometrial biopsy. She denies any history of abnormal Pap smears. She has a remote history of HSV 2. She never took control pills or hormone replacement therapy nor had the HPV vaccine. HEALTH MAINTENANCE: She has never had a mammogram and has a colonoscopy scheduled for 09/02/2022. Her bone density has never been done. SOCIAL HISTORY: She used to smoke a pack per day on and off for 25 years and quit approximately 26 months ago. She formerly used to drink. She denies any drug use. She is and presents today alone. FAMILY HISTORY: Somewhat unknown as to family members on the maternal side have had breast cancer, but unknown age.Two family members including her great grandmother had ovarian cancer and someone on her mother's side had kidney cancer. Of note, her mother currently has had a D&C and is having failing health,but has not told her daughter what is the underlying reason for this. PHYSICAL EXAMINATION: Vital Signs: Her blood pressure is 169/97, pulse is 92, respirations are 16. Her weight is 209 pounds for a BMI of 34.8 kg/m??. General Appearance: Patient is a well developed, well nourished female in no acute distress. HEENT: Supple neck. No supraclavicular lymphadenopathy. No thyromegaly. Lungs: Clear to auscultation bilaterally. Heart: Regular rate and rhythm. Positive S1/S2. Breasts: Deferred Abdomen: Soft, obese with a well-healed Pfannenstiel incision. Extremities: No clubbing, cyanosis, or edema Back: No CVA tenderness. Pelvic Exam: External genitalia: Within normal limits. Urethra: Without masses or tenderness. Urethral meatus: Without any lesions or prolapse. Bladder: No masses or tenderness. Vulva: Normal Speculum Exam: The cervix appears to be nulliparous. After verbal consent and a negative urine test, the anterior lip of the cervix was grasped with a single-tooth tenaculum. The uterus sounded to approximately 6.5 cm. Two passes were taken without difficulty. There was noted to be a minimal amount of tissue that was obtained. All instruments were removed. The tenaculum site requires lulu geronimo nitrate to be applied. Bimanual Examination: Cervix feels normal in size, shape, and consistency. Uterus feels normal in size. The left adnexa feels quite mobile. It is not fixed, is not nodular. There is some pressure that the patient feels with this exam. Rectovaginal: Exam is confirmatory. Guaiac is negative. ASSESSMENT AND PLAN: This is as 37-year-old female with the following issues. Left adnexal mass: The patient was consented for an exam under anesthesia, diagnostic laparoscopy, left salpingo-oophorectomy, right salpingectomy, possible total laparoscopic hysterectomy, possible exploratory laparotomy, other indicated procedures, possible staging. The patient understands the risks include, but are not limited to bleeding, infection, damage to surrounding organs, blood vessels, and nerves as well the 1% risk of an identified injury at the time of surgery that warrants an additional procedure. The patient was made aware that it is in her best interest to keep her other ovary in order to keep her hormonal function, especially with her other comorbidities. The patient wouldbenefit from not having to need hormone replacement therapy. The patient will consider this and then make her final decision on the day of surgery. Surgical and blood consents were signed today. Diabetes: The patient's hemoglobin A1c overall is well controlled. Abnormal uterine bleeding: The patient's endometrial biopsy was performed and was negative for abnormality. Gastrointestinal: Her colonoscopy showed diverticulosis. LITIES DIRECTOR documented in this encounter Miscellaneous Notes * Perioperative Nursing Note - Peggy Elliott RN - 09/30/2022 9:57 PM CST Removed Impact Ligasure from supplies per Dr. Jackson request LITIES DIRECTOR * Op Note - Heriberto Eisenberg MD - 09/30/2022 2:08 PM CST Operative Note Attending Surgeon: Michael Jackson MD Surgical Team: Surgeon(s) and Role: * Michael Jackson MD - Primary * Heriberto Eisenberg MD - Fellow DATE OF SURGERY : 09/30/2022 Preoperative Diagnosis: Pre-op Diagnosis * Adnexal mass [N94.89] Postoperative Diagnosis: Post-op Diagnosis * Adnexal mass [N94.89] Name of Operation: Diagnostic laparoscopy Left salpingo-oophorectomy Right salpingectomy Right ovarian cystectomy Lysis of adhesions - greater than 60 minutes Staging biopsies Pelvic washings Indication for Procedure: This is a 37 y.o. who presented with recently imaged adnexal mass. Prior CT scan had revealed 11.8 x 8.4 cm cystic mass with multiple septations in the left ovary. Tumor markers including CA 19 9 and CA 125 were normal. Subsequent ultrasound redemonstrated the adnexal mass. The patient had also complained of recent abdominal bloating and pain. Given symptomatic adnexal mass, she was counseled about surgical options. After informed consent, she elected for surgical management. Operative Findings: Pelvic mass palpable on exam under anesthesia. Upon abdominal entry, severe adhesive disease noted between the omentum and anterior abdominal wall. Large multicystic mass found to be arising from the left adnexa. 6cm simple cyst found arising from the right adnexa. No other evidence of malignancy. Upper abdominal survey unremarkable. Cystectomybed hemostatic with floseal. Left ovarian mass frozen section: cystadenofibroma Procedure in detail: The patient was prepped and draped in sterile fashion and placed in lithotomy. Time out was performed, confirming the correct patient and procedure. Exam under anesthesia confirmed the stated findings. A speculum was placed; cervix was grasped with a single-tooth tenaculum; and a Hulka uterine manipulator was placed. Attention was then turned to the abdomen. After injecting local anesthetic, a stab incision was made at the umbilicus, a veress was placed. The saline drop test was performed and pneumoperitoneum wasachieved with an opening pressure of 5mmHg. Next a 5mm trocar was placed under direct visualization. No trauma was noted after initial trocar insertion. Upper abdominal survey revealed the above findings. Two additional 5 mm trocars were then atraumatically placed on the right and left side, 10 cm lateral to the midline approximately under direct visualization. Upper abdominal survey was unremarkable. Pelvic survey revealed severe adhesive disease between the omentum and anterior abdominal wall. These adhesions were carefully lysed with the LigaSure. The patient was then placed in steep Trendelenburg, and the pelvic survey revealed the above findings. The bowel was swept from the pelvis, and the ureters were identified transperitoneally. Pelvic washing were obtained. Attention was turned to the left pelvic sidewall were large cystic mass was found to be arising from the left ovary. The sigmoid colon peritoneal attachments were lysed with the LigaSure. The perirectal space was developed, and the ureter was identified. The infundibulopelvic ligament was ligated and transected with the LigaSure. The utero-ovarian ligament on the side was also ligated with the LigaSure and transected. The mesovarium was then serially ligated and incised until the mass was resected from the pelvic sidewall. The severe adhesions connecting the greater omentum to the uterine fundus were lysed with the LigaSure. An omental biopsy was obtained at this time. The omentum was then placed cephalad, revealing a 6 cm right adnexal cyst, which was simple appearing. The right fallopian tube was then placed on tension, and the mesosalpinx was serially ligated and incised until the tube was resected of the level of the uterine cornu. Given premenopausal status and history abdominal pain, decision was made to proceed with cystectomy. The cyst was intentionally ruptured, revealing simple appearing fluid. This fluid was evacuated, and the cyst wall was excised and the LigaSure device. The inner surface of the cyst wall was hemostatic with FloSeal. At this time, the umbilical trocar was removed and the incision was extended to accommodate a 12 mmtrocar. The excised left adnexal mass was placed in a endoscopic bag for contained morcellation before removal from the abdomen. Approximately 500cc of cyst fluid was evacuated from the mass in a contained fashion. This mass was sent for frozen section. The right fallopian tube was removed. Peritoneal biopsies of bilateral pelvic sidewalls and bilateral pericolic gutters were obtained while awaiting frozen section. 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 Further staging was deferred. The surgical beds were inspected and found to be hemostatic with decreased pneumoperitoneum. The underlying fascia the umbilical incision was closed with 0 Vicryl. The laparoscope was reinserted and confirmed no iatrogenic injury following fascial closure. The gas and trocars were removed from the abdomen, and the remaining skin incisions were closed with 4-0 Monocryl in subcuticular fashion and dressed with band-aids. The patient tolerated the procedure well. She was extubated in the operating room and transported to the PACU in stable condition. Estimated Blood Loss: 50 mL Specimens: ID Type Source Tests Collected by Time 1 : pelvic washings Fluid Pelvic Washing (Cytology) CYTOLOGY Michael Jackson MD 09/30/2022 1417 A : Left Fallopian Tube and Left Ovary Tissue Ovary(ies) with or without tube, non-tumor SURGICAL PATHOLOGY Michael Jackson MD 09/30/2022 1536 B : Right Fallopian Tube Tissue Fallopian tube, non-tumor SURGICAL PATHOLOGY Michael Jackson MD 09/30/2022 1542 C : Right Ovarian Cyst Wall Tissue Soft tissue biopsy SURGICAL PATHOLOGY Michael Jackson MD 09/30/2022 1550 D : Omental Biopsy Tissue Soft tissue biopsy SURGICAL PATHOLOGY Michael Jackson MD 09/30/2022 1558 E : Right Pelvic Sidewall Tissue Soft tissue biopsy SURGICAL PATHOLOGY Michael Jackson MD 09/30/2022 1602 F : Left Pelvic Sidewall Tissue Soft tissue biopsy SURGICAL PATHOLOGY Michael Jackson MD 09/30/2022 1604 G : Right Paracolic Gutter Tissue Soft tissue biopsy SURGICAL PATHOLOGY Michael Jackson MD 09/30/2022 1606 H : Left Paracolic Gutter Tissue Soft tissue biopsy SURGICAL PATHOLOGY Michael Jackson MD 09/30/2022 1614 Complications: None known Sponge/Instrument/Needle Counts: The sponge, lap and needle counts were correct x 2. Condition on Discharge from the operating room was stable Michael Jackson MD was present for the entire procedure 09/30/2022 @ORTIME@ Cosigned by Michael Jackson MD at 10/02/2022 10:56 AM FACILITIES DIRECTOR LITIES DIRECTOR LITIES DIRECTOR Associated attestation - Michael Jackson MD - 10/02/2022 10:56 AM FACILITIES DIRECTOR I was present for the entire procedure. * Brief Op Note - Heriberto Eisenberg MD - 09/30/2022 2:08 PM FACILITIES DIRECTOR Operative Progress Note Surgical Team: Surgeon(s) and Role: * Michael Jackson MD - Primary * Kita Bender MD - Resident - Assisting * Heriberto Eisenberg MD - Fellow Anesthesiologist: Estefania Carty MD; Mendel Marshall MD LINE INSTALLATION SUPERVISOR: Keke Weslh CRNA; Yajaira Pate CRNA Paste Mixing Supervisor: Kelby Hays RN Paste Mixing Supervisor Relief: Blossom Dean RN Scrub: Deena Maharaj RN Paste Mixing Supervisor Second: Rebecca Price RN DATE OF SURGERY : 09/30/2022 Preoperative Diagnosis: Pre-op Diagnosis * Adnexal mass [N94.89] Postoperative Diagnosis: Post-op Diagnosis * Adnexal mass [N94.89] Procedure(s): Diagnostic laparoscopy Left salpingo-oophorectomy Right salpingectomy Right ovarian cystectomy Lysis of adhesions - greater than 60 minutes Staging biopsies Operative Findings: Severe Large multicystic mass found to be arising from the left adnexa. 6cm simple cyst found arising from the right adnexa. No evidence of malignancy. Upper abdominal survey unremarkable. Cystectomybed hemostatic with floseal. Left ovarian mass frozen section: cystadenofibroma Estimated Blood Loss: 50 mL Intraoperative Fluids: 1300 mls Specimens: ID Type Source Tests Collected by Time 1 : pelvic washings Fluid Pelvic Washing (Cytology) CYTOLOGY Michael Jackson MD 09/30/2022 1417 A : Left Fallopian Tube and Left Ovary Tissue Ovary(ies) with or without tube, non-tumor SURGICAL PATHOLOGY Michael Jackson MD 09/30/2022 1536 B : Right Fallopian Tube Tissue Fallopian tube, non-tumor SURGICAL PATHOLOGY Michael Jackson MD 09/30/2022 1542 C : Right Ovarian Cyst Wall Tissue Soft tissue biopsy SURGICAL PATHOLOGY Michael Jackson MD 09/30/2022 1550 D : Omental Biopsy Tissue Soft tissue biopsy SURGICAL PATHOLOGY Michael Jackson MD 09/30/2022 1558 E : Right Pelvic Sidewall Tissue Soft tissue biopsy SURGICAL PATHOLOGY Michael Jackson MD 09/30/2022 1602 F : Left Pelvic Sidewall Tissue Soft tissue biopsy SURGICAL PATHOLOGY Michael Jackson MD 09/30/2022 1604 G : Right Paracolic Gutter Tissue Soft tissue biopsy SURGICAL PATHOLOGY Michael Jackson MD 09/30/2022 1606 H : Left Paracolic Gutter Tissue Soft tissue biopsy SURGICAL PATHOLOGY Michael Jackson MD 09/30/2022 1614 Implants: Nothing was implanted during the procedure Blood/Blood Products Transfused: None Complications: None Condition on Discharge from the operating room was stable Heriberto Eisenberg MD Date: 09/30/2022 Time: 4:58 PM TEACHING ATTESTATION : Dr. Jackson was present and directly participated in the entire procedure (including opening and closing). Cosigned by Michael Jackson MD at 09/30/2022 6:23 PM FACILITIES DIRECTOR LITIES DIRECTOR LITIES DIRECTOR Associated attestation - Michael Jackson MD - 09/30/2022 6:23 PM FACILITIES DIRECTOR I was present for the entire procedure. documented in this encounter Plan of Treatment Scheduled Orders Name Type Priority Associated Diagnoses Order Schedule Surgical pathology Pathology and Cytology Routine Adnexal mass Release Upon Ordering for 1 Occurrences starting 09/30/2022 documented as of this encounter Procedures Procedure Name Priority Date/Time Associated Diagnosis Comments POCT GLUCOSE DEVICE Routine 09/30/2022 4 :54 PM FACILITIES DIRECTOR SURGICAL PATHOLOGY Routine 09/30/2022 3: 36 PM FACILITIES DIRECTOR CYTOLOGY Routine 09/30/2022 2:17 PM FACILITIES DIRECTOR Adnexal mass POCT GLUCOSE DEVICE Routine 09/30/2022 1 :55 PM FACILITIES DIRECTOR STAGING LAPAROTMY 09/30/2022 1:2 9 PM FACILITIES DIRECTOR Adnexal mass Case Notes 09/29@1138 can not start later meetings in the afternoon.(EF)57 Office want to start at 11am per samantha via case msg.(EF) LYSIS OF ADHESIONS 09/30/2022 1: 29 PM FACILITIES DIRECTOR Adnexal mass Case Notes 09/29@1138 can not start later meetings in the afternoon.(EF)57 Office want to start at 11am per samantha via case msg.(EF) CYSTECTOMY OVARIAN 09/30/2022 1: 29 PM FACILITIES DIRECTOR Adnexal mass Case Notes 09/29@1138 can not start later meetings in the afternoon.(EF)57 Office want to start at 11am per samantha via case msg.(EF) LAPAROSCOPIC OOPHORECTOMY 09/30/2022 1:29 PM FACILITIES DIRECTOR Adnexal mass Case Notes 09/29@1138 can not start later meetings in the afternoon.(EF)57 Office want to start at 11am per samantha via case msg.(EF) LAPAROSCOPIC SALPINGECTOMY 09/30/2022 1:29 PM FACILITIES DIRECTOR Adnexal mass Case Notes 09/29@1138 can not start later meetings in the afternoon.(EF)09/29@0857 Office want to start at 11am per samantha via case msg.(EF) LAPAROSCOPY DIAGNOSTIC - OPERATIVE 09/30/2022 1:29 PM FACILITIES DIRECTOR Adnexal mass Case Notes 09/29@1138 can not start later meetings in the afternoon.(EF)09/29@0857 Office want to start at 11am per samantha via case msg.(EF) B CHECK SAMPLE STAT 09/30/2022 9:39 AM FACILITIES DIRECTOR POCT GLUCOSE DEVICE Routine 09/30/2022 9 :30 AM FACILITIES DIRECTOR documented in this encounter Results * POCT glucose (09/30/2022 4:54 PM FACILITIES DIRECTOR) Glucose, POC 139 70 - 199 mg/dL [facility] Blood 09/30/2022 4:54 PM FACILITIES DIRECTOR 09/30/2022 4:54 PM FACILITIES DIRECTOR us Premal Elia Jackson MD LAB POCT ORDERABLES - DE VICE Final Result [facility] Department [place] [address] * Surgical pathology (09/30/2022 3:36 PM FACILITIES DIRECTOR) Ovary(ies) with or without tube, non-tumor 09/30/2022 3:36 PM FACILITIES DIRECTOR 09/30/2022 3:50 PM FACILITIES DIRECTOR Narrative 10/05/2022 3:48 PM FACILITIES DIRECTOR EPIC results best viewed via link to PDF [facility] [place] [address] Note to Patients: This report may contain [...] details. SURGICAL PATHOLOGY REPORT FINAL Patient Name: ?? EMMA FIGUEROA Gender: ??F : ??1985 (Age: 37) Address: ??[address] [place], [place] [address], [place], [place] ??[address] Hospital #: ??[id number] Taken:09/30/2022 Received:09/30/2022 Reported: 10/05/2022 Patient Type: [facility] SDS ?? Service: Surgery Location: [facility] WITH [facility] OR POD1 Physician(s): ??Michael Jackson M.D. Andrei Clark M.D. Heriberto Eisenberg M.D. Kita Bender M.D. Diagnosis: A. ??Fallopian tube and ovary, left, salpingo-oophorectomy (including AFR1) ? 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 - Fallopian tube ?- No histopathologic abnormality B. ??Fallopian tube, right, salpingectomy ? - No histopathologic abnormality C. ??Ovarian cyst wall, right, excision ? - Corpus luteum cyst D. ??Omentum, biopsy ? - No histopathologic abnormality E. ??Peritoneum, right pelvic sidewall, biopsy ? - No histopathologic abnormality F. ??Peritoneum, left pelvic sidewall, biopsy ? - No histopathologic abnormality G. ??Peritoneum, right paracolic gutter, biopsy ? - No histopathologic abnormality H. ??Peritoneum, left paracolic gutter, biopsy ? - No histopathologic abnormality uxc/10/05/2022 07:36 By this signature, I attest that the above diagnosis is based upon my personal examination of the slides(and/or other material indicated in the diagnosis). Jeff Grossman M.D., Ph.D. Report Electronically Reviewed and Signed Out By ??Jeff Grossman M.D., Ph.D. 10/05/2022 15:48:19 Intraoperative Consultation: Frozen Section Diagnosis Afr1: Left fallopian tube and left ovary - Favor serous cystadenofibroma - No evidence of malignancy on sales training representative sections By Tone Ralph M.D., Ebony Oswald M.D., Kalpesh Phipps M.D. Gross Consultation A: Left fallopian tube and left ovary Received fresh, is a 81.5 g disrupted multilocular ovarian cyst (15.0 x 10.0 x 2.2 cm in aggregate). There is no grossly distinctive fallopian tube. The ovarian serosa is hirsch-pink and glistening with focal petechiae and congestion. The cystic spaces are filled with clear, thin fluid. The wall thickness ranges in size (0.1- 1.0 cm). The inner linings are hirsch-pink with focal areas of congestion. There are no grossly identifiable papillary excrescences, lesions, or areas of hemorrhage. Naphthalene Operator sections are submitted for frozen section, AFR1 (thickened cyst wall and cystic spaces). By Tone Ralph M.D., Ebony Oswald M.D., Kalpesh Phipps M.D. I personally examined the relevant preparation(s) or a microscopic image of the relevant preparation(s) for the specimen(s) while the surgical procedure was still underway and rendered or confirmed the diagnosis(es) Tone Ralph M.D. (A) Microscopic Description and Comment: Microscopic examination substantiates the above cited diagnosis. ??The permanent sections confirm the frozen section impression. Michael Navarro M.D. History: Patient is a 37 years old female with incidental imaging finding of left adnexal mass while being worked up for left lower quadrant abdominal pain and blood in stool. Operative procedure: ??Left salpingo-oophorectomy with right salpingectomy, right ovarian cystectomy and staging biopsies. Specimen(s) Received: A: Left fallopian tube and left ovary B: Right fallopian tube C: Right ovarian cyst wall D: Omental biopsy E: Right pelvic sidewall F: Left pelvic sidewall G: Right paracolic gutter H: Left paracolic gutter Gross Description: Received in eight formalin jars, each labeled with the patient's identifiers. A. ??Labeled left fallopian tube and left ovary are previously opened and fragmented pieces of cyst wall measuring 11.5 x 8.0 cm in aggregate. An attached fimbriated end of fallopian tube is visible, and the putative fragments of fallopian tube measure 3.5 x 0.5 cm in aggregate. The cyst is hirsch-barrera to brown, multiloculated, and smooth walled. There are no solid areas or papillary excrescences arising from the cyst wall. No remnant ovary is identified. In the same container labeled AFR1 is a frozen cassette with two pieces of remnant tissues measuring 2 x 1.8 cm and 2 x 0.6 cm. Labeled AFR1-frozen tissue remnant; A2-fimbriated end and transverse sections of left fallopian tube; A3 to A7-sales training representative sections from left ovarian cyst wall. Jar 2. ?? B. ??Labeled right fallopian tube are two pieces of fallopian tube measuring 3 x 0.5 cm each. There are multiple paratubal cysts ranging from 0.5 cm to 1.3 cm in greatest dimension. Cut sections reveal a stellate pinpoint lumen. Labeled B1-longitudinal sections from fimbriated end of fallopian tube; B2-transverse sections of fallopian tube. Jar 1. ?? C. ??Labeled right ovarian cyst wall are fragments of hirsch-barrera to brown cyst wall measuring 1.5 x 1.1 x 0.2 cm. Serially sectioned. Labeled C1 and C2. Jar 0. ?? D. ??Labeled omental biopsy is fibrofatty tissue measuring 2.5 x 1.2 x 0.3 cm. Labeled D1. Jar 0. ?? E. ??Labeled right pelvic sidewall is hirsch-barrera tissue measuring 1.3 x 0.4 cm. Labeled E1. Jar 0. ?? F. ??Labeled left pelvic sidewall is a single hirsch-brown tissue measuring 0.8 x 0.5 cm. Labeled F1. Jar 0. ?? G. ??Labeled right paracolic gutter is hirsch-barrera tissue measuring 0.5 x 0.3 cm. Labeled G1. Jar 0. ?? H. ??Labeled left paracolic gutter is a single hirsch-barrera tissue fragment measuring 1.4 x 0.2 cm. Labeled H1. Jar 0. ?? uxc/10/03/2022 11:47 Gross Resident:Michael Navarro M.D. By this signature, I attest that the above diagnosis is based upon my personal examination of the slides(and/or other material). Addenda/Procedures The performance characteristics of some immunohistochemical stains, fluorescence in-situ hybridization tests and immunophenotyping by flow cytometry cited in this report (if any) were determined by the Surgical Pathology and Flow Cytometry Departments at [facility] as part of an ongoing quality assurance coach program and in compliance with federally mandated regulations drawn from the Clinical Laboratory Improvement Act of 1988 (CLIA '88). ??Some of these tests rely on the use of analyte specific reagents and are subject to specific labeling requirements by the US Food and Drug Administration. ??Such diagnostic tests may only be performed in a facility that is certified by the Department of Health and Human Services as a high complexity laboratory under CLIA '88. ??The FDA has determined that such clearance or approval is not necessary. ??This test is used for clinical purposes. ??It should not be regarded as investigational or for research. ??Nevertheless, federal rules concerning the medical use of analyte specific reagents require that the following disclaimer be attached to the report: This test was developed and its performance characteristics determined by the Surgical Pathology and Flow Cytometry Departments of [facility]. ??It has not been cleared or approved by the U. S. Food and Drug Administration. IMAGES AND SCANNED DOCUMENTS, IF INCLUDED, ONLY VIEWABLE IN PDF VERSION OF REPORT [facility] Elia Jackson MD LAB PATHOLOGY ORDERABLES Final Result * Cytology (09/30/2022 2:17 PM FACILITIES DIRECTOR) Fluid (Pelvic Washing (Cytology)) 09/30/2022 2:17 PM FACILITIES DIRECTOR Narrative PATHOLOGY BJ - 10/04/2022 11:22 AM FACILITIES DIRECTOR EPIC results best viewed via link to PDF [facility] [place] [address] Note to Patients: This report may contain [...] can answer questions and explain the details. CYTOPATHOLOGY REPORT FINAL Patient Name: ?? EMMA FIGUEROA Gender: ??F : ??1985 (Age: 37) Address: [place] ??[address] Hospital #: ??[id number] Taken:09/30/2022 Received:09/30/2022 Reported: 10/04/2022 Patient Type: [facility] SDS ?? Service: Surgery Location: [facility] Physician(s): ??Randy Bonilla M.D. FINAL DIAGNOSIS A. ??Pelvic washing: ? - Negative for malignancy [facility] [place] [place]/10/04/2022 09:22 By this signature, I attest that the above diagnosis is based upon my personal examination of the slides(and/or other material indicated in the diagnosis). Kenneth Dubon M.D. Report Electronically Reviewed and Signed Out By ??Kenneth Dubon M.D. 10/04/2022 11:22:26 Jose Roberto Marie MS, CT(ASCP)PA Gross Description A. ??Pelvic washing: ??50 ml cloudy fluid - 1 Pap stained ThinPrep. (ep) Clinical Diagnosis and History adnexal mass REPORT IMAGES AND SCANNED DOCUMENTS, IF INCLUDED, ONLY VIEWABLE IN PDF VERSION OF REPORT The performance characteristics of some immunohistochemical stains, in-situ hybridization and fluorescence in-situ hybridization tests and immunophenotyping by flow cytometry cited in this report (if any) were determined by the Surgical Pathology and Flow Cytometry Departments at [facility] as part of an ongoing quality assurance coach program and in compliance with federally mandated regulations drawn from the Clinical Laboratory Improvement Act of 1988 (CLIA '88). ??Some of these tests rely on the use of analyte specific reagents and are subject to specific labeling requirements by the US Food and Drug Administration. ??Such diagnostic tests may only be performed in a facility that is certified by the Department of Health and Human Services as a high complexity laboratory under CLIA '88. ??The FDA has determined that such clearance or approval is not necessary. ??This test is used for clinical purposes. ??It should not be regarded as investigational or for research. ??Nevertheless, federal rules concerning the medical use of analyte specific reagents require that the following disclaimer be attached to the report: ??This test was developed and its performance characteristics determined by the Surgical Pathology and Flow Cytometry Departments of [facility]. ??It has not been cleared or approved by the U. S. Food and Drug Administration. [facility] Elia Jackson MD LAB CYTOLOGY ORDERABLES Final Result Performing Organization Address City/[facility]/ZIP Co de Phone Number [facility] [address] Floor [place], [place] [phone] * POCT glucose (09/30/2022 1:55 PM FACILITIES DIRECTOR) Glucose, POC 92 70 - 199 mg/dL [facility] Blood 09/30/2022 1:55 PM FACILITIES DIRECTOR 09/30/2022 1:55 PM FACILITIES DIRECTOR [facility] Elia Jcakson MD LAB POCT ORDERABLES - DE VICE Final Result Performing Organization Address [facility] de Phone Number [facility] Department [place] [address] * Check Sample (09/30/2022 9:39 AM FACILITIES DIRECTOR) ABO Rh O Negative [facility] OTHER 09/30/2022 9:39 AM FACILITIES DIRECTOR 09/30/2022 9:45 AM FACILITIES DIRECTOR [facility] LAB BLOOD ORDERABLES Fin al Result Performing Organization Address [facility] [[email or web address]] Co de Phone Number [facility] Department [place] [address] * POCT glucose (09/30/2022 9:30 AM FACILITIES DIRECTOR) Glucose, POC 118 70 - 199 mg/dL [facility] Blood 09/30/2022 9:30 AM FACILITIES DIRECTOR 09/30/2022 9:30 AM FACILITIES DIRECTOR us Premal Elia Jackson MD LAB POCT ORDERABLES - DE VICE Final Result [facility] Department [place] [address] documented in this encounter Visit Diagnoses Diagnosis Adnexal cyst- Primary Adnexal mass Other specified symptom associated with female genital organs Adnexal mass Other specified symptom associated with female genital organs documented in this encounter Admitting Diagnoses Diagnosis Adnexal cyst documented in this encounter Administered Medications Inactive Administered Medications - up to 3 most recent administrations Medication Order MAR Action Action Date Dose Rate Site acetaminophen (TYLENOL) tablet 1,000 mg 1,000 mg, oral, Once, On Mon09/30/22 at 0930, For 1 dose, Pre-Op, Administer 1 hour prior to induction., Indications: PainIndications:Pain Given 09/30/2022 9:37 AM FACILITIES DIRECTOR 1,000 mg bupivacaine (MARCAINE) 0.25 % (2.5 mg/mL) preservative free injection As needed, Starting on Mon09/30/22 at 1419, Intra-Op Given 09/30/2022 4:29 PM FACILITIES DIRECTOR 10 mL Given 09/30/2022 2:19 PM FACILITIES DIRECTOR 7 mL Carrier Fluids for Secondary Infusion - 0.9% Sodium Chloride 30 mL, intravenous, As needed, For priming tubing and/or flushing, Starting on Mon09/30/22 at 0854, Pre-Op, 0-250 ml/hr to flush line after IV infusions when no maintenance IV ordered. Infuse 30mL at the same rate as the secondary infusion. Run as primary IV, not intended for KVO.Indications:Adnexal mass Carrier Fluids for Secondary Infusion - 0.9% Sodium Chloride 30 mL, intravenous, As needed, For priming tubing and/or flushing, Starting on Mon09/30/22 at 0854, Pre-Op, 0-250 ml/hr to flush line after IV infusions when no maintenance IV ordered. Infuse 30mL at the same rate as the secondary infusion. Run as primary IV, not intended for KVO. diphenhydrAMINE (BENADRYL) injection 25 mg 25 mg, intravenous, Administer over 2 Minutes, Once, On Mon09/30/22 at 1745, For 1 dose, Phase I Given 09/30/2022 5:52 PM FACILITIES DIRECTOR 25 mg diphenhydrAMINE (BENADRYL) injection 25 mg 25 mg, intravenous, Administer over 2 Minutes, Once, On Mon09/30/22 at 1945, For 1 dose, Phase I Given 09/30/2022 7:15 PM FACILITIES DIRECTOR 25 mg enoxaparin (LOVENOX) syringe 40 mg 40 mg, subcutaneous, Once, On Mon09/30/22 at 0930, For 1 dose, Pre-Op, Avoid enoxaparin if creatinine clearance is less than 30 mL/min or epidural placed., Indications: Deep Vein Thrombosis PreventionIndications:Deep Vein Thrombosis Prevention Given 09/30/2022 9:52 AM FACILITIES DIRECTOR 40 mg Right Lower Abdomen famotidine (PEPCID) injection 20 mg 20 mg, intravenous, Administer over 2 Minutes, Once, On Mon09/30/22 at 1945, For 1 dose, Phase I Given 09/30/2022 7:16 PM FACILITIES DIRECTOR 20 mg gabapentin (NEURONTIN) capsule 300 mg 300 mg, oral, Once, On Mon09/30/22 at 0930, For 1 dose, Pre-Op, Administer 1 hour prior to induction., Indications: PainIndications:Pain Given 09/30/2022 9:37 AM FACILITIES DIRECTOR 300 mg haloperidol (HALDOL) injection 2 mg 2 mg, intramuscular, Once, On Mon09/30/22 at 1745, For 1 dose, Phase I, If administered IV push, administer over 5 min for adults Given 09/30/2022 5:18 PM FACILITIES DIRECTOR 2 mg Other (Comment) Lactated Ringer's (LR) infusion 30 mL/hr, intravenous, Continuous, Starting on Mon09/30/22 at 0930, Pre-Op New Bag 09/30/2022 2:40 PM FACILITIES DIRECTOR Rate/Dose Verify 09/30/2022 1:24 PM FACILITIES DIRECTOR 30 mL/h r New Bag 09/30/2022 9:36 AM FACILITIES DIRECTOR 30 mL/hr 30 mL/hr LORazepam (ATIVAN) 2 mg/mL injection - ADS Override Pull Starting on Mon09/30/22 at 2102, For 1 dose, Created by cabinet override For IV administration, dilute with equal volume of 0.9% sodium chloride to a final concentration of 1 mg/mL. Do not exceed a rate of 2 mg/minute LORazepam (ATIVAN) injection 0.25 mg 0.25 mg, intravenous, Once, On Mon09/30/22 at 2145, For 1 dose, For IV administration, dilute with equal volume of 0.9% sodium chloride to a final concentration of 1 mg/mL. Do not exceed a rate of 2 mg/minute Given 09/30/2022 9:04 PM FACILITIES DIRECTOR 0.25 mg scopolamine patch 72 hour 1 patch 1 patch, transdermal, Administer over 72 Hours, Once, On Mon09/30/22 at 1200, For 1 dose, Pre-Op Medication Applied 09/30/2022 11:46 AM FACILITIES DIRECTOR 1 patch Behind Left Ear sodium chloride 0.9% flush 0.5-20 mL 0.5-20 mL, intra-catheter, As needed, line care, Starting on Mon09/30/22 at 0854, Pre-Op, Flush volume based on line type and size. Flush before and after each use.Indications:Adnexal mass sodium chloride 0.9% flush 0.5-20 mL 0.5-20 mL, intra-catheter, As needed, line care, Starting on Mon09/30/22 at 0854, Pre-Op, Flush volume based on line type and size. Flush before and after each use. sodium chloride 0.9% infusion 125 mL/hr, intravenous, Continuous, Starting on Mon09/30/22 at 0930, Pre-Op, May discontinue when discharge criteria met.Indications:Adnexal mass sodium chloride 0.9% irrigation As needed, Starting on Mon09/30/22 at 1419, Intra-Op Given 09/30/2022 2:19 PM FACILITIES DIRECTOR 2,000 mL trimethobenzamide (TIGAN) injection 200 mg 200 mg, intramuscular, Every 6 hours PRN, nausea, vomiting, Starting on Mon09/30/22 at 2050 documented in this encounter Discontinued Medications Medication Sig Discontinue Reason Start Date End Da te acetaminophen (TYLENOL) 500 mg tabletIndications:Pain Take 1,000 mg by mouth every 6 (six) hours as needed for pain Reorder 09/30/2022 documented as of this encounter Active and Recently Administered Medications Times are shown in FACILITIES DIRECTOR. Scheduled Medication Order 09/28/2022 09/29/2022 09/30/2022 acetaminophen (TYLENOL) tablet 1,000 mg (COMPLETED) 1,000 mg, oral, Once, On Mon09/30/22 at 0930, For 1 dose, Pre-Op, Administer 1 hour prior to induction., Indications: Pain 37 (Given - Provid er: Shannen Gustafson RN) diphenhydrAMINE (BENADRYL) injection 25 mg (COMPLETED) 25 mg, intravenous, Administer over 2 Minutes, Once, On Mon09/30/22 at 1745, For 1 dose, Phase I 1751 (Given - Provid er: Tami Canales RN) diphenhydrAMINE (BENADRYL) injection 25 mg (COMPLETED) 25 mg, intravenous, Administer over 2 Minutes, Once, On Mon09/30/22 at 1945, For 1 dose, Phase I 1914 (Given - Provid er: Maximo Jimenez RN) enoxaparin (LOVENOX) syringe 40 mg (COMPLETED) 40 mg, subcutaneous, Once, On Mon09/30/22 at 0930, For 1 dose, Pre-Op, Avoid enoxaparin if creatinine clearance is less than 30 mL/min or epidural placed., Indications: Deep Vein Thrombosis Prevention 951 (Given - Provid er: Shannen Gustafson RN) famotidine (PEPCID) injection 20 mg (COMPLETED) 20 mg, intravenous, Administer over 2 Minutes, Once, On Mon09/30/22 at 1945, For 1 dose, Phase I 1915 (Given - Provid er: Maximo Jimenez RN) gabapentin (NEURONTIN) capsule 300 mg (COMPLETED) 300 mg, oral, Once, On Mon09/30/22 at 0930, For 1 dose, Pre-Op, Administer 1 hour prior to induction., Indications: Pain 936 (Given - Provid er: Shannen Gustafson RN) haloperidol (HALDOL) injection 2 mg (COMPLETED) 2 mg, intramuscular, Once, On Mon09/30/22 at 1745, For 1 dose, Phase I, If administered IV push, administer over 5 min for adults 1718 (Given - Provid er: Tami Canales RN - Comment: iv) LORazepam (ATIVAN) injection 0.25 mg (COMPLETED) 0.25 mg, intravenous, Once, On Mon09/30/22 at 2145, For 1 dose, For IV administration, dilute with equal volume of 0.9% sodium chloride to a final concentration of 1 mg/mL. Do not exceed a rate of 2 mg/minute 2104 (Given - Provid er: Maximo Jimenez RN) scopolamine patch 72 hour 1 patch 1 patch, transdermal, Administer over 72 Hours, Once, On Mon09/30/22 at 1200, For 1 dose, Pre-Op 1146 (Medication Leta lied - Provider: Shannen Gustafson RN)2157 (Due: Medication Removed - Provider: Automatic Discharge Provider - Comment: Time automatically adjusted from order being discontinued) Continuous Medication Order 09/28/2022 09/29/2022 09/30/2022 Lactated Ringer's (LR) infusion 30 mL/hr, intravenous, Continuous, Starting on Mon09/30/22 at 0930, Pre-Op 0936 (New Bag - Prov ider: Shannen Gustafson RN)1324 (Rate/Dose Verify - Provider: Yajaira Pate CRNA)1439 (Paused - Provider: Yajaira Pate CRNA - Comment: Switch to gravity)1440 (New Bag - Provider: Yajaira Pate CRNA)1638 (Anesthesia Volume Adjustment - Provider: Keke Welsh CRNA)1857 (Due)1942 (Due) sodium chloride 0.9% infusion 125 mL/hr, intravenous, Continuous, Starting on Mon09/30/22 at 0930, Pre-Op, May discontinue when discharge criteria met. 0930 (Due) PRN Medication Order 09/28/2022 09/29/2022 09/30/2022 albuterol 2.5 mg/0.5 mL nebulizer solution 2.5 mg 2.5 mg, nebulization, Once as needed, wheezing, Starting on Mon09/30/22 at 1706, For 1 dose, Phase I, Notify Anesthesiologist. , Indications: Bronchospastic Pulmonary Disease bupivacaine (MARCAINE) 0.25 % (2.5 mg/mL) preservative free injection (CANCELED) As needed, Starting on Mon09/30/22 at 1419, Intra-Op 1419 (Given - Provid er: Heriberto Eisenberg MD)1629 (Given - Provider: Heriberto Eisenberg MD) Carrier Fluids for Secondary Infusion - 0.9% Sodium Chloride 30 mL, intravenous, As needed, For priming tubing and/or flushing, Starting on Mon09/30/22 at 0854, Pre-Op, 0-250 ml/hr to flush line after IV infusions when no maintenance IV ordered. Infuse 30mL at the same rate as the secondary infusion. Run as primary IV, not intended for KVO. Carrier Fluids for Secondary Infusion - 0.9% Sodium Chloride 30 mL, intravenous, As needed, For priming tubing and/or flushing, Starting on Mon09/30/22 at 0854, Pre-Op, 0-250 ml/hr to flush line after IV infusions when no maintenance IV ordered. Infuse 30mL at the same rate as the secondary infusion. Run as primary IV, not intended for KVO. diphenhydrAMINE (BENADRYL) injection 12.5 mg 12.5 mg, intravenous, Every 15 min PRN, itching, Starting on Mon09/30/22 at 1706, For 2 doses, Phase I, Max cumulative dose 50 mg., Indications: Itching HYDROmorphone (DILAUDID) injection 0.2 mg 0.2 mg, intravenous, Administer over 2 Minutes, Every 10 min PRN, 1st line for pain, Starting on Mon09/30/22 at 1706, Phase I, Switch to 2nd line analgesic order if pain is uncontrolled or increasing after 2 doses. Notify Anesthesiologist if total PACU dose reaches 2 mg and pain score 5/10 or more., Indications: Pain HYDROmorphone (DILAUDID) injection 0.4 mg 0.4 mg, intravenous, Administer over 2 Minutes, Every 10 min PRN, 2nd line for pain, Starting on Mon09/30/22 at 1706, Phase I, May administer 10 mintes after 2nd dose of 1st line analgesic agent for uncontrolled or increasing pain. Revert to 1st line dose if POSS of 3. Notify Anesthesiologist if total PACU dose reaches 2 mg and pain score 5/10 or more., Indications: Pain meperidine (DEMEROL) preservative free injection 12.5 mg 12.5 mg, intravenous, Administer over 5 Minutes, Every 10 min PRN, shivering, Starting on Mon09/30/22 at 1706, For 2 doses, Phase I, Max cumulative dose 25 mg., Indications: Shivering naloxone (NARCAN) 0.4 mg/mL injection 0.04-0.4 mg 0.04-0.4 mg, intravenous, Once as needed, other, excessive sedation/respiratory depression, Starting on Mon09/30/22 at 1706, For 1 dose, Phase I, Dilute 0.4 mg with 9 mL NS (final concentration 0.04 mg/mL). For respiratory depression (respiratory rate less than 6), administer 0.4 mg IVP over 30 seconds. For excessive sedation administer 0.04 mg (1 mL) every 1 minute until desired level of alertness. For IV, administer over 30 seconds., Indications: Opioid Toxicity sodium chloride 0.9% flush 0.5-20 mL 0.5-20 mL, intra-catheter, As needed, line care, Starting on Mon09/30/22 at 0854, Pre-Op, Flush volume based on line type and size. Flush before and after each use. sodium chloride 0.9% flush 0.5-20 mL 0.5-20 mL, intra-catheter, As needed, line care, Starting on Mon09/30/22 at 0854, Pre-Op, Flush volume based on line type and size. Flush before and after each use. sodium chloride 0.9% irrigation (CANCELED) As needed, Starting on Mon09/30/22 at 1419, Intra-Op 1419 (Given - Provid er: Heriberto Eisenberg MD) trimethobenzamide (TIGAN) injection 200 mg 200 mg, intramuscular, Every 6 hours PRN, nausea, vomiting, Starting on Mon09/30/22 at 2050 documented in this encounter Orders Medications Ordered That Brendan ht Not Have Been Administered Count Last Ordered Date First Ordered Date albuterol 2.5 mg/0.5 mL nebu lizer solution 2.5 mg 1 09/30/2022 Carrier Fluids for Secondary Infusion - 0.9% Sodium Chloride 2 09/30/2022 diphenhydrAMINE (BENADRYL) i njection 12.5 mg 1 09/30/2022 HYDROmorphone (DILAUDID) injection 0.2 mg 1 09/30/2022 HYDROmorphone (DILAUDID) injection 0.4 mg 1 09/30/2022 meperidine (DEMEROL) preserv ative free injection 12.5 mg 1 09/30/2022 naloxone (NARCAN) 0.4 mg/mL injection 0.04-0.4 mg 1 09/30/2022 sodium chloride 0.9% flush 0.5-20 mL 2 09/20 sodium chloride 0.9% infusion 1 09/30/2022 trimethobenzamide (TIGAN) injection 200 mg 1 09/30/2022 Discharge Count Last Ordered Date First Orde red Date DISCHARGE PATIENT 1 09/30/2022 documented in this encounter Care Teams Drying Machine Tender Relationship Specialty Start Date End Date Andrei Clark MD PCP - General Internal Medicine 12/11/20 Kandace Freedman OT [address] [place] [address] Occupational Therapist Occupational Therapy 03/15/21 Christina Brunson MD [address] [place] [address] Obstetrics and Gynecology 08/02/22 documented as of this encounter
--- OUTSIDE RECORDS SUMMARY | 2024-11-17 14:26 | XMS_ITS | Encounter Summary ---
Author Organization [facility] Healthcare Address [address] [place] [address] Care Team Providers Care Substation Operator Apprentice Name Role Phone Andrei Clark MD Primary Care Provider [phone] Kandace Freedman OT Unavailable [phone] Christina Brunson MD Unavailable [phone] Encounter Details Date Type Department Care Team (Latest Contact Info) Description 04/03/2024 7:23 PM CDT - 04/03/2024 11:59 PM CDT Hospital Encounter [facility] [address] [place], [place] [id number] Discharge Disposition: Discharge to home or self [...] on file 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 However, a consult was not performed because transvaginal ultrasound is highly skip operator dependent, and same day CT scan is available. ??Accordingly, there will be no separate report of this study generated by a [facility] Radiologist. Electronically signed by: Alessio Mata M.D. Narrative 04/04/2024 7:42 AM CDT EXAMINATION: ??CHANGE CONSULT ON OUTSIDE IMAGES TO REFERENCE IMAGES Procedure Note Alessio Mata MD - 04/04/2024 EXAMINATION: CHANGE CONSULT ON OUTSIDE IMAGES TO REFERENCE IMAGES IMPRESSION: This ultrasound study was initially nominated as a consult on outside images via Image Sharing Service. However, a consult was not performed because transvaginal ultrasound is highly skip operator dependent, and same day CT scan is available. Accordingly, there will be no separate report of this study generated by a [facility] Radiologist. Electronically signed by: Alessio Mata M.D. us Premal Elia Jackson MD IMG US PROCEDURES Final Result documented in this encounter Visit Diagnoses Not on filedocumented in this encounter Care Teams Substation Operator Apprentice Relationship Specialty Start Date End Date Andrei Clark MD PCP - General Internal Medicine 12/11/20 Kandace Freedman OT [address] [place] [address] Occupational Therapist Occupational Therapy 03/15/21 Christina Brunson MD [address] [facility] [address] [place] [address] Obstetrics and Gynecology 08/02/22 documented as of this encounter
--- OUTSIDE RECORDS SUMMARY | 2024-11-17 14:27 | XMS_ITS | Encounter Summary ---
Author Organization [facility] Healthcare Address [address] [place] [address] Care Team Providers Care Turbine Mechanic Name Role Phone Andrei Clark MD Primary Care Provider [phone] Encounter Details Date Type Department Care Team (Late st Contact Info) Description 02/01/2021 Telephone [facility] Neurodiagnostics [address] [place] [address] Shannen Vicente Social History Tobacco Use Types Packs/Day Years Used Date Smoking Tobacco: Former Cigarettes Q uit: 06/01/2019 Smokeless Tobacco: Never Alcohol Use Standard Drinks/Week Comments Never 0 (1 standard drink = 0.6 oz pur e alcohol) AUDIT-C Answer Date Recorded Frequency of Alcohol Consumption Never 12/30/2020 Average Number of Drinks Not on file 021 Frequency of Binge Drinking Not on file 12/21 Comments No Sex and Gender Information Value Date Recorded Sex Assigned at Not on file 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 Andrei Clark. documented in this encounter Plan of Treatment Not on file documented as of this encounter Visit Diagnoses Not on filedocumented in this encounter Care Teams Turbine Mechanic Relationship Specialty Start Date End Date Andrei Clark MD PCP - General Internal Medicine 12/11/20 documented as of this encounter
--- OUTSIDE RECORDS SUMMARY | 2024-11-17 14:27 | XMS_ITS | Encounter Summary ---
Author Organization [facility] Healthcare Address [address] [place] [address] Care Team Providers Care Foam Gun Operator Name Role Phone Andrei Clark MD Primary Care Provider [phone] Kandace Freedman OT Unavailable [phone] Christina Brunson MD Unavailable [phone] Encounter Details Date Type Department Care Team (Late st Contact Info) Description 08/29/2022 3:45 PM CDT Lab [facility] Advanced Medicine [facility] Advanced Medicine ([facility]) [address] [place] [phone] Abnormal uterine bleeding (AUB) Social History Tobacco Use Types Packs/Day Years [...] on file 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 Gender Identity Not on file Sexual Orientation Not on file documented as of this encounter Plan of Treatment Not on file documented as of this encounter Procedures Procedure Name Priority Date/Time Associated Diagnosis Comments INHIBIN A AND B Routine 08/29/2022 4:10 PM CDT Abnormal uterine bleeding (AUB) DIFFERENTIAL AUTO Routine 08/29/2022 3:0 2 PM CDT Abnormal uterine bleeding (AUB) CBC WITH AUTO DIFFERENTIAL Routine 08/29/2022 3:02 PM CDT Abnormal uterine bleeding (AUB) documented in this encounter Results * Inhibin A and B (08/29/2022 4:10 PM CDT) Pathologist [facility] Inhibin A 45 pg/mL [facility] Comment: REFERENCE VALUE <97.5 (Premenopausal) <2.1 ??(Postmenopausal) ADDITIONAL INFORMATION This test has been modified from the director service's instructions. Its performance characteristics were determined by [facility] in a manner consistent with CLIA requirements. This test has not been cleared or approved by the U.S. Food and Drug Administration. The testing method is an immunoenzymatic assay manufactured by [employer] and performed on the [employer] DxI 800. Values obtained with different assay methods or kits may be different and cannot be used interchangeably. ? Test results cannot be interpreted as absolute evidence for the presence or absence of malignant disease. ? Inhibin A values are not interpretable in females for the investigation of malignant disease. Inhibin B <10 pg/mL [facility] Comment: REFERENCE VALUE Premenopausal: <224 pg/mL (Follicular) <80 pg/mL (Luteal) Postmenopausal: <12 pg/mL ADDITIONAL INFORMATION The testing method is a manual immunoenzymatic assay manufactured by [employer]. Values obtained with different assay methods or kits may be different and cannot be used interchangeably. If this test is being ordered as a tumor marker, results cannot be interpreted as absolute evidence for the presence or absence of malignant disease. This test was developed and its performance characteristics determined by [facility] in a manner consistent with CLIA requirements. This test has not been cleared or approved by the U.S. Food and Drug Administration. Test Performed by: [facility] [address] [place] [address] Wealth Management Manager: Jose Mejias M.D. Ph.D.; CLIA# [id number] Blood 08/29/2022 4:10 PM CDT 08/29/2022 4:48 PM CDT us [facility] Elia Jackson MD LAB BLOOD ORDERABLES Fin al Result [facility] Department [place] [address] * Differential, auto (08/29/2022 3:02 PM CDT) Neutrophil abs 6.4 1.7 - 6.5 K/cumm [facility] Imm gran abs 0.0 0.0 - 0.1 K/cumm [facility] Lymphocyte abs 2.8 0.8 - 3.3 K/cumm [facility] Monocyte abs 0.5 0.2 - 0.8 K/cumm [facility] Eosinophil abs 0.2 0.0 - 0.5 K/cumm [facility] Basophil abs 0.1 0.0 - 0.1 K/cumm [facility] Neutrophil pct 63.2 % [facility] Comment: Interpretive Data Percent cell count reference ranges are not reported, since discordance with absolute values may lead to misinterpretation of CBC data. Current Interpretive Data was last revised on 2018. Imm gran pct 0.3 % [facility] Comment: Interpretive Data Percent cell count reference ranges are not reported, since discordance with absolute values may lead to misinterpretation of CBC data. Current Interpretive Data was last revised on 2018. Lymphocyte pct 28.2 % [facility] Comment: Interpretive Data Percent cell count reference ranges are not reported, since discordance with absolute values may lead to misinterpretation of CBC data. Current Interpretive Data was last revised on 2018. Monocyte pct 5.3 % [facility] Comment: Interpretive Data Percent cell count reference ranges are not reported, since discordance with absolute values may lead to misinterpretation of CBC data. Current Interpretive Data was last revised on 2018. Eosinophil pct 2.4 % [facility] Comment: Interpretive Data Percent cell count reference ranges are not reported, since discordance with absolute values may lead to misinterpretation of CBC data. Current Interpretive Data was last revised on 2018. Basophil pct 0.6 % [facility] Comment: Interpretive Data Percent cell count reference ranges are not reported, since discordance with absolute values may lead to misinterpretation of CBC data. Current Interpretive Data was last revised on 2018. Blood 08/29/2022 3:02 PM CDT 08/29/2022 4:23 PM CDT us Premmn Elia Jackson MD LAB BLOOD ORDERABLES Fin al Result [facility] Department [place] [address] * (ABNORMAL) CBC with auto differential (08/29/2022 3:02 PM CDT) WBC 10.0(H) 3.8 - 9.9 K/cumm [facility] Hgb 12.1 11.9 - 15.5 g/dL [facility] Hct 38.2 35.6 - 45.5 % [facility] Plt 314 150 - 400 K/cumm [facility] MPV 8.7(L) 9.1 - 12.3 fL [facility] RBC 4.60 3.90 - 5.20 M/cumm [facility] MCV 83.0 81.3 - 96.4 fL [facility] MCH 26.3(L) 27.1 - 33.3 pg [facility] MCHC 31.7(L) 32.3 - 35.7 g/dL [facility] RDW CV 15.2(H) 11.1 - 14.9 % [facility] RDW SD 46.4 35.7 - 48.1 fL [facility] NRBC abs 0.00 0.00 - 0.01 K/cumm [facility] Blood 08/29/2022 3:02 PM CDT 08/29/2022 4:23 PM CDT us Premal Elia Jackson MD LAB BLOOD ORDERABLES Fin al Result [facility] Department [place] [address] documented in this encounter Visit Diagnoses Diagnosis Abnormal uterine bleeding (AUB) documented in this encounter Care Teams Foam Gun Operator Relationship Specialty Start Date End Date Andrei Clark MD PCP - General Internal Medicine 12/11/20 Kandace Freedman OT [address] [place] [address] Occupational Therapist Occupational Therapy 03/15/21 Christina Brunson MD [address] [place] [address] Obstetrics and Gynecology 08/02/22 documented as of this encounter
--- OUTSIDE RECORDS SUMMARY | 2024-11-17 14:27 | XMS_ITS | Encounter Summary ---
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 Left message to call back. Second call. documented in this encounter Plan of Treatment Not on file documented as of this encounter Visit Diagnoses Not on filedocumented in this encounter Care Teams Developer Relations Manager Relationship Specialty Start Date End Date Andrei Clark MD PCP - General Internal Medicine 12/11/20 Kandace Freedman OT [address] [place] [address] Occupational Therapist Occupational Therapy 03/15/21 documented as of this encounter
--- OUTSIDE RECORDS SUMMARY | 2024-11-17 14:27 | XMS_ITS | Encounter Summary ---
Author Organization [facility] Address [address] [place] [address] Phone Care Team Providers Care Panelboard Operator Name Role Phone Andrei Clark MD Primary Care Provider [phone] Kandace Freedman OT Unavailable [phone] Reason for Visit * Reason Onset Date Comments No Show 07/22/2021 Encounter Details Date Type Department Care Team (Late st Contact Info) Description 07/22/2021 Telephone [facility] Occupational Therapy [address] [place] [address] Kandace Freedman, OT [address] [place], [place] [id number] No Show Social History Tobacco Use Types Packs/Day Years [...] on file 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 OTR provided skilled ed on telehealth treatment and how to access if her insurance covers this typeof tx. Ct is interested in doing telehealth. She is aware of how to make appt on My Chart. Ct will notify OTR if she insurance does not cover telehealth documented in this encounter Plan of Treatment Not on file documented as of this encounter Visit Diagnoses Not on filedocumented in this encounter Care Teams Panelboard Operator Relationship Specialty Start Date End Date Andrei Clark MD PCP - General Internal Medicine 12/11/20 Kandace Freedman OT [address] [place] [address] Occupational Therapist Occupational Therapy 03/15/21 documented as of this encounter
--- OUTSIDE RECORDS SUMMARY | 2024-11-17 14:27 | XMS_ITS | Encounter Summary ---
Author Organization [facility] Address [address] [place] [address] Care Team Providers Care Game Breeding Farm Manager Name Role Phone Andrei Clark MD Primary Care Provider [phone] Reason for Visit * (Routine) - Closed Specialty Diagnoses / Procedures Referred By Tiburcio caicedo Referred To Contact Diagnoses Abnormal movements Procedures Continuous Video EEG -[facility] Andrei Clark MD Phone: tel: fax: Referral ID Status Reason Start Date Expiration Date Visits Re quested Visits Authorized [id number] Closed 12/17/2020 01/16/2022 1 1 Encounter Details Date Type Department Care Team (Latest Contact Info) Description 01/25/2021 8:00 AM GLASS TINTER Ancillary Procedure [address] [address] Andrei Pascual Abnormal movements Social History Tobacco Use Types Packs/Day Years [...] on file Legal Sex Female 4:48 PM GLASS TINTER Gender Identity Not on file Sexual Orientation Not on file documented as of this encounter Progress Notes * Andrei Pascual - 01/25/2021 8:00 AM CST 01/25/21 1135 Seizure Monitoring Unit Application Patient Identity Verified By Checking the patient's armband for name and date of Electrodes Scalp electrodes applied;No scalp breakdown noted Monitoring Video EEG monitoring started Patient Teaching Educated to press seizure button to donny clinical events;Family instructed Explanation and Consent Shown camera and microphone;Family shown camera, patient unable to sign S TINTER * Andrei Pascual - 01/25/2021 8:00 AM CST 01/31/21 1519 Seizure Monitoring Unit Discontinuation Monitoring Video EEG monitoring discontinued Electrodes Scalp electrodes removed;No skin breakdown noted at electrode sites documented in this encounter Plan of Treatment Not on file documented as of this encounter Procedures Procedure Name Priority Date/Time Associated Diagnosis Comments CONTINUOUS VIDEO EEG Routine 01/31/2021 3:19 PM CDT Abnormal movements documented in this encounter Results * Continuous Video EEG -[facility] (01/31/2021 3:19 PM CDT) Anatomical Region Laterality Modality EEG Narrative 01/31/2021 8:34 PM CDT Video-EEG Report Patient Name: Kylee Guo [facility] Medical Record Number (MRN): [id number] [facility] Ed Record: [id number] Date of (): 1985 EEG Date: 01/25/2021 Ordering Provider: Andrei Clark MD CC: Andrei Clark Start Time: 01/25/2021 11:01:59 AM ? End Time: 01/31/2021 1:53:32 PM ? Introduction: Ms. Guo is a 35 y.o. female with a history of CKD, Diabetes mellitus, polycystic kidney disease, HTN, and anxiety, who presented with events described as stuttering with eyes rolling backwards, feeling dizzy and disoriented, difficult speech, facial changes with her face looking, and difficult walking with her leg locking up , concerning for seizures. ??EEG was performed to evaluate for seizures. This is a report of continuous video-EEG monitoring. High definition digital video and digital EEG were recorded continuously with a My[employer] EEG acquisition system. This was a 32 channel EEG with additional anterior temporal electrodes. Electrodes were placed with collodion following the 10/20 International System. The patient was monitored and observed continuously by technical personnel. Digital seizure and spike detection were utilized during the recording. EEG Description: The awake background included a 10 Hz posterior rhythm which attenuated with eye opening and activity. During drowsiness, identified by ocular signs and alpha attenuation, there was intermittent, diffuse, asynchronous theta activity admixed with 2-4 Hz polymorphic frontotemporal delta activity. As the record progressed, stage II sleep was identified by vertex waves, sleep spindles and K-complexes. During the recording, there were changes consistent with light and deep sleep stages. Hyperventilation was not performed. Photic strobe stimulation elicited no abnormalities. There were no focal, lateralized or epileptiform abnormalities. The EKG showed a normal rate and rhythm. Daily Video-EEG Description: Epoch 1: 01/25/2021 11:01:59 AM - 01/26/2021 11:01:59 AM The interictal EEG was as described above. There were four clinical events recorded. Event #1 occurred at 12:28 PM on 01/25. The patient was talking with doctors and reported she had sensation of right facial tingling, followed by worsened difficulty speaking and worsened dystonic- and spastic-appearing movements, most noticeable in her left arm, but intermittently involving other extremities. There was no significant EEG change beyond EMG and movement artifact. Event #2 occurred at 4:45 PM on 01/25. The patient had bilateral upper extremity extension, vocalization, body jerking, and blinking. She was unresponsive to verbal commands with preservation of the PDR. There was no significant EEG change beyond EMG and movement artifact. Event #3 occurred at 5:20 PM on 01/25. The patient had right hand shaking, vocalization, and right index finger automatic movements. She was unresponsive to verbal commands with preservation of the PDR. There was no significant EEG change beyond EMG and movement artifact. Event #4 occurred at 10:48 AM on 01/26. The patient reported she felt funny and wanted to have her blood sugar checked. She had baseline speech difficulties, but could followed commands. There was no significant EEG change beyond EMG and movement artifact. Epoch 2: 01/26/2021 11:01:59 AM - 01/27/2021 11:01:59 AM The interictal EEG was as described above. There were four clinical events recorded. Event #5 occurred at 11:18 AM on 01/26. The patient reported she had headache. Later, she was tearful, had bilateral upper extremity extension, and said no .She could answer the questions slowly and follow the commands correctly. There was no significant EEG change beyond EMG and movement artifact. Event #6 occurred at 6:13 PM on 01/26. The patient had right upper extremity/bilateral upper extremity extension and body jerking movement. She could answer the questions slowly and follow the commands correctly. There was no significant EEG change beyond EMG and movement artifact. Event #7 occurred at 6:42 PM on 01/26. The patient reported she had right head hurting and suffering. She could answer the questions slowly and follow the commands correctly. There was no significant EEG change beyond EMG and movement artifact. Event #8 occurred at 8:07 AM on 01/27. The patient reported she had the feeling of weird . ??She could answer the questions slowly and follow the commands correctly. There was no significant EEG change beyond EMG and movement artifact. Epoch 3: 01/27/2021 11:01:59 AM - 01/28/2021 11:01:59 AM The interictal EEG was as described above. Photic strobe stimulation was performed and elicited no abnormalities. There was a clinical events recorded. Event #9 occurred at 2:01 PM on 01/27. During the photic strobe stimulation, the patient reported she had unusual feeling. She could answer the questions slowly and follow the commands correctly. There was no significant EEG change beyond EMG and movement artifact. Epoch 4: 01/28/2021 11:01:59 AM - 01/29/2021 11:01:59 AM The interictal EEG was as described above. Photic strobe stimulation was performed and elicited no abnormalities. There were two clinical events recorded. Event #10 occurred at 11:46 AM on 01/28. The patient reported she felt sick. Then she began crying. She was patially responsive to verbal commands and fully followed the commands. There was no significant EEG change beyond EMG and movement artifact. Event #11 occurred at 4:58 PM on 01/28. ??During the photic strobe stimulation, the patient had mild body shaking movement, bilateral upper/lower extremity stiffening, and left face droopy. She could answer the questions slowly and follow the commands correctly. There was no significant EEG change beyond EMG and movement artifact. Epoch 5: 01/29/2021 11:01:59 AM - 01/30/2021 11:01:59 AM The interictal EEG was as described above. ??There were two clinical events recorded. Event #12 occurred at 12:28 PM on 01/29. The patient reported she had sensation of head tingling. She could answer the questions slowly and follow the commands correctly. There was no significant EEG change beyond EMG and movement artifact. Event #13 occurred at 5:18 PM on 01/29. The patient reported she had sensation of right head tingling. She could answer the questions slowly and follow the commands correctly. There was no significant EEG change beyond EMG and movement artifact. Epoch 6: 01/30/2021 11:01:59 AM - 01/31/2021 11:01:59 AM The interictal EEG was as described above. Photic strobe stimulation was performed and elicited no abnormalities, but triggered Event # 15 and Event #16. There were four clinical events recorded. Event #14 occurred at 1:02 PM on 01/30. The patient reported she had sensation of right head tingling. She could answer the questions and follow the commands correctly. There was no significant EEG change beyond EMG and movement artifact. Event #15 occurred at 1:18 PM on 01/30. During the stimulation, The patient had intermittent bilateral extremities/body dystonia-like jerking movements. She could answer the questions and follow the commands correctly. There was no significant EEG change beyond EMG and movement artifact. Event #16 occurred at 3:59PM on 01/30. During the second stimulation, The patient had intermittent body/extremities dystonia-like jerking movements with flash started and ended. She could answer the questions and follow the commands correctly. There was no significant EEG change beyond EMG and movement artifact. Event #17 occurred at 11:29 PM on 01/30. The patient had LE movement and was unresponsive, followed by intermittent body/extremities dystonia-like jerking movements. She could answer the questions and follow the commands with stuttering in the end of event. There was no significant EEG change beyond EMG and movement artifact. Epoch 7: 01/31/2021 11:01:59 AM - 01/31/2021 1:53:32 PM The interictal EEG was as described above. ??There was one clinical event recorded. Event #18 occurred at 11:12 AM on 01/31. The patient had intermittent body/extremities dystonic-appearing jerking movements. She could answer the questions and follow the commands with stuttering in the event. There was no significant EEG change beyond EMG and movement artifact. Interpretation: No seizures were captured during the recording. The eighteen captured typical clinical events did not have significant EEG correlate. 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 Since a normal EEG cannot rule out a movement disorder, the movement disorder differential outlined by her movement disorder physician remains possible, including a functional movement disorder. Clinical correlation is advised. The interictal EEG was normal awake, drowsy, and asleep. The patient's first three typical clinical events described as her most severe convulsions associated with bladder incontinence and emesis were not captured during this round of monitoring. These have not happened in months. Repeat Video/EEG to characterize this event type may be necessary, if clinically indicated, such as following a recurrence. By signing this report, the attending Electroencephalographer certifies that he/she personally reviewed the electrodiagnostics study and has edited this report to fully conform with his/her intent. Signing Attending: Rodrick Elizabeth MD PhD Andrei Clark MD NEUROLOGY ORDERABLES Final Re sult documented in this encounter Visit Diagnoses Diagnosis Abnormal movements documented in this encounter Care Teams Game Breeding Farm Manager Relationship Specialty Start Date End Date Andrei Clark MD PCP - General Internal Medicine 12/11/20 documented as of this encounter
--- OUTSIDE RECORDS SUMMARY | 2024-11-17 14:27 | XMS_ITS | Encounter Summary ---
Author Organization [facility] Address [address] [place] [address] Care Team Providers Care Licensed Home Inspector Name Role Phone Dorota Martinez MD Primary Care Provider [phone] Andrei Clark MD Primary Care Provider [phone] Encounter Details Date Type Department Care Team (Late st Contact Info) Description 11/09/2020 Orders Only [facility] Testing Site - [address] [address] Jose Norman MD [address] [facility] [address] [address] Preop testing (Primary Dx) Social History Tobacco Use Types [...] on file Legal Sex Female 4:48 PM ANIMAL TRAINER Gender Identity Not on file Sexual Orientation Not on file documented as of this encounter Progress Notes * Kita Lewis - 11/09/2020 9:59 AM CST Provider faxed orders. Pt will be tested at [place]. AL TRAINER documented in this encounter Plan of Treatment Not on file documented as of this encounter Results * COVID-19 Coronavirus RNA Nasopharyngeal (01/19/2021 8:58 AM ANIMAL TRAINER) COVID-19 RNA Not Detected [facility] Comment: Testing performed as a component of ??a specimen pool. ??Negative results should be treated as presumptive and, if inconsistent with clinical signs and symptoms or necessary for patient management, pooled samples should be tested individually. Negative results do not preclude SARS-CoV-2 infection and must not be used as the sole basis for patient management decisions. Negative results must be considered in the context of a patient? s recent exposures, history, presence of clinical signs and symptoms consistent with COVID-19. Interpretive Data Synonyms for this test include: PCR and NAAT . ??Testing performed by the [facility]. The Novel Coronavirus Assay (COVID-19) Real Time RT-PCR assay is for in vitro diagnostic use under FDA emergency use authorization only. A negative RT-PCR result does not preclude infection with COVID-19 and should not be used as the sole basis for treatment or other patient management decisions. ??Additional sample types have been validated according to CLIA regulations. ?? Current Interpretive Data was last revised on December 24, 2020. First COVID-19 test? Unknown [facility] Employeed in healthcare? Unknown [facility] status? Unknown [facility] Group care resident? Unknown [facility] Hospitalized? Unknown [facility] Is patient in ICU? Unknown [facility] Symptomatic as defined by CDC? No [facility] Nasopharyngeal 01/19/2021 8: 58 AM ANIMAL TRAINER 01/19/2021 11:53 AM ANIMAL TRAINER Narrative [facility] - 01/19/2021 7:31 PM ANIMAL TRAINER What is the reason for testing?->Screening prior to scheduled procedure or surgery Jose Norman MD LAB MICROBIOLOGY - GENERA L ORDERABLES Final Result [facility] Department [place] [address] documented in this encounter Visit Diagnoses Diagnosis Preop testing- Primary Unspecified pre-operative examination Preop testing Unspecified pre-operative examination documented in this encounter Care Teams Licensed Home Inspector Relationship Specialty Start Date End Date Dorota Martinez MD [address] [facility] [address] [place] [address] PCP - General 02/11/19 12/10/20 Andrei Clark MD [address] [facility] [address] [place] [address] PCP - General Internal Medicine 12/11/20 documented as of this encounter
--- OUTSIDE RECORDS SUMMARY | 2024-11-17 14:27 | XMS_ITS | Encounter Summary ---
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) Procedures MR Pituitary Brain W WO Denae Garcia MD Phone: tel: fax: [address] [phone] Referral ID Status Reason Start Date Expiration Date Visits Re quested Visits Authorized [id number] Closed 04/09/2020 10/19/2021 1 1 Reason for Visit * Diagnostic Imaging (Routine) - Closed Specialty Diagnoses / Procedures Referred By Tiburcio caicedo Referred To Contact Radiology Diagnoses 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) Procedures MR Pituitary Brain W WO Denae Garcia MD Phone: tel: fax: [address] [phone] Referral ID Status Reason Start Date Expiration Date Visits Re quested Visits Authorized [id number] Closed 04/09/2020 10/19/2021 1 1 Encounter Details Date Type Department Care Team (Latest Contact Info) Description 04/23/2020 8:13 PM CDT - 04/23/2020 11:59 PM CDT Hospital Encounter [facility] [address] [place] [address] [place] [address] [place] [address] 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/HCC) Discharge Disposition: Discharge to home or self care Social History Tobacco Use Types Packs/Day Years Used Date Smoking Tobacco: Former Cigarettes Q uit: 06/01/2019 Smokeless Tobacco: Never Alcohol Use Standard Drinks/Week Comments Never 0 (1 standard drink = 0.6 oz pur e alcohol) AUDIT-C Answer Date Recorded Frequency of Alcohol Consumption Never 02/04/2019 Average Number of Drinks Not on file 019 Frequency of Binge Drinking Not on file 01/18 Comments No Sex and Gender Information Value Date Recorded Sex Assigned at Not on file Legal Sex Female 4:48 PM BRAIDED RUG MAKER Gender Identity Not on file Sexual Orientation Not on file documented as of this encounter Medications at Time of Discharge acetaZOLAMIDE (DIAMOX) 250 mg tablet Take 250 mg by mouth 2 (two) times a day 1 amLODIPine (NORVASC) 5 mg tablet Take 10 mg by mouth daily 1 atorvastatin (LIPITOR) 10 mg tablet 01/22/2019 1 cephalexin (KEFLEX) 500 mg capsule 02/07/2019 1 DOXYCYCLINE 100 mg tablet 02/20/2019 1 fluticasone (FLONASE) 50 mcg/actuation nasal spray 11/30/2018 1 furosemide (LASIX) 20 mg tablet Take 20 mg by mouth daily as needed 1 glyBURIDE (DIABETA) 2.5 mg tablet Take 2.5 mg by mouth daily with breakfast 1 HYDROcodone-acet aminophen (NORCO) 5-325 mg per tabletIndication s:Pain Take 1 tablet by mouth every 6 (six) hours as needed 1 insulin glargine (LANTUS,BASAGLAR ) 100 unit/mL (3 mL) insulin pen 20 Units daily 12/30 1 metFORMIN (GLUCOPHAGE) 500 mg tablet Take 500 mg by mouth 08/14/2014 1 metoprolol (LOPRESSOR) 25 mg tablet 02/20/2019 1 OLANZapine (ZyPREXA) 5 mg tabletIndication s:complex migraine head ache Take 1 tablet (5 mg total) by mouth nightly 5 tablet 02/05/2019 1 POTASSIUM CHLORIDE ER 10 mEq CR tablet 02/20/2019 1 propranolol (INDERAL) 20 mg tablet Take 20 mg by mouth daily 1 triamterene-hydr oCHLOROthiazide (DYAZIDE) 37.5-25 mg per tablet/capsuleIn dications:Endoly mphatic hydrops of right ear Take 1 tablet/capsule by mouth daily 30 tablet/capsule 11 04/04/2019 1 documented as of this encounter Discharge Disposition Disposition Code Departure Means Destination Discharge to home or self care documented in this encounter Plan of Treatment Not on file documented as of this encounter Procedures Procedure Name Priority Date/Time Associated Diagnosis Comments MRI BRAIN W WO CONTRAST (PITUITARY) Schedule Routine, Read Routine (OP Routine) 04/23/2020 9:26 PM CDT 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 Dictated by: Matthew Cowan M.D. The radiology attending physician has personally reviewed this study, and had reviewed and/or edited this written report and agrees with it. Electronically signed by: Coretta Cornell M.D. Narrative 04/24/2020 12:24 PM CDT EXAMINATION: Magnetic resonance imaging (MRI) of the brain and brainstem without and with contrast. HISTORY: 34-year-old female with idiopathic intracranial hypertension TECHNIQUE: Multiplanar multi-weighted MRI of the brain and brainstem was performed without and with ??intravenous contrast using the pituitary protocol. This included acquisitions showing dynamic contrast enhancement of the sella turcica in the coronal plane and a post-contrast T1-Stealth sequence. Contrast information: 18 mL Dotarem COMPARISON: ??Brain MR dated 02/25/2019. FINDINGS: There is partially empty sella with flattening of the pituitary gland inferiorly. The pituitary stalk is in the midline. ??There is no change when compared to the prior examination. No pituitary lesion is identified. The optic chiasm and orbits are normal. There are no areas of abnormal contrast enhancement. The scalp and calvarium are normal. The superior sagittal sinus demonstrates normal venous flow. The corpus callosum is normal in shape and signal intensity. The posterior fossa is unremarkable. The brainstem and craniocervical junction are unremarkable. The ventricles are normal in size and position without evidence of hydrocephalus. The paranasal sinuses are normal. The visualized portions of the mastoids are unremarkable. The orbits appear normal. Normal flow voids are demonstrated in the carotid arteries and basilar artery. Procedure Note VoCoretta MD - 04/24/2020 EXAMINATION: Magnetic resonance imaging (MRI) of the brain and brainstem without and with contrast. HISTORY: 34-year-old female with idiopathic intracranial hypertension TECHNIQUE: Multiplanar multi-weighted MRI of the brain and brainstem was performed without and with intravenous contrast using the pituitary protocol. This included acquisitions showing dynamic contrast enhancement of the sella turcica in the coronal plane and a post-contrast T1-Stealth sequence. Contrast information: 18 mL Dotarem COMPARISON: Brain MR dated 02/25/2019. FINDINGS: There is partially empty sella with flattening of the pituitary gland inferiorly. The pituitary stalk is in the midline. There is no change when compared to the prior examination. No pituitary lesion is identified. The optic chiasm and orbits are normal. There are no areas of abnormal contrast enhancement. The scalp and calvarium are normal. The superior sagittal sinus demonstrates normal venous flow. The corpus callosum is normal in shape and signal intensity. The posterior fossa is unremarkable. The brainstem and craniocervical junction are unremarkable. The ventricles are normal in size and position without evidence of hydrocephalus. The paranasal sinuses are normal. The visualized portions of the mastoids are unremarkable. The orbits appear normal. Normal flow voids are demonstrated in the carotid arteries and basilar artery. IMPRESSION: Partially empty sella with flattening of the pituitary gland inferiorly, unchanged from the prior examination. Dictated by: Matthew Cowan M.D. The radiology attending physician has personally reviewed this study, and had reviewed and/or edited this written report and agrees with it. Electronically signed by: Coretta Cornell M.D. 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 documented in this encounter Administered Medications Inactive Administered Medications - up to 3 most recent administrations Medication Order MAR Action Action Date Dose Rate Site gadoterate meglumine (DOTAREM) 0.5 mmol/mL injection 18 mL 18 mL, intravenous, Once in imaging, contrast, Starting on Alfreda 04/23/20 at 2103, For 1 dose Given 04/23/2020 9:11 PM CDT 18 mL documented in this encounter Orders Medications Ordered That Brendan ht Not Have Been Administered Count Last Ordered Date First Ordered Date gadoterate meglumine (DOTARE M) 0.5 mmol/mL injection 18 mL 1 04/23/2020 documented in this encounter Care Teams Picker Relationship Specialty Start Date End Date Dorota Martinez MD [facility] [address] [address] PCP - General 02/11/19 12/10/20 documented as of this encounter
--- OUTSIDE RECORDS SUMMARY | 2024-11-17 14:27 | XMS_ITS | Encounter Summary ---
Author Organization [facility] Address [address] [place] [address] Phone Care Team Providers Care Sawmill Manager Name Role Phone Andrei Clark MD Primary Care Provider [phone] Kandace Freedman OT Unavailable [phone] Reason for Visit * Reason Comments OT Treatment * Consultation (Routine) - Closed Specialty Diagnoses / Procedures Referred By Tiburcio caicedo Referred To Contact Occupational Therapy Diagnoses Unspecified abnormal involuntary movements Dioni Pérez MD PhD [address] [place] [address] Phone: tel: fax: Kandace Freedman, OT [address] [place] [address] Phone: tel: fax: Referral ID Status Reason Start Date Expiration Date V isits Requested Visits Authorized [id number] Closed Specialty Services Required 02/04/2021 03/06/2022 24 24 Encounter Details Date Type Department Care Team (Late st Contact Info) Description 06/04/2021 8:00 AM CDT Therapy [facility] Occupational Therapy [address] [place] [address] Kandace Freedman, OT [address] [place], [place] [id number] Unspecified abnormal involuntary movements (Primary Dx) Social History Tobacco Use Types [...] on file 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 I use a pillow sometimes when I am in bedbetween my knees . Pain: 10 facial pain, forearm pain radiating to bicep, L thigh in sitting and L lower leg when walking, and lower back Objective: Client was seen in clinic setting. Son drove ct to session; but stayed in waiting room and did not participate in session. No change in medical status stated. Client's Preferred Pronoun: she/her Client's Preferred Name: Kylee Functional Neurological Symptoms - Full body block during sit to stand - Extensor posturing of trunk - Flexor posturing of trunk - Stuttering with eyes rolling - Dizziness with disorientation - RLE/LLE blocking during gait - RUE/LUE weakness - LUE finger flexion block Functional Neurological Trigger id by ct - Stress - Multitasking (being asked to do a 2nd task when working on something else) - Light - Touch sensations - Overexertion - Cold/heat Functional Neurological Strategies that help manage symptoms id by ct - None identified at this time Functional Neurological Disorder Awareness Problem: Kylee reported having 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 Current status: ?? Ct stated she tracked in her FND activity and food logs but forgot logs at home. ?? Mod verbal prompts id anything she learned from tracking. Ct id the following triggers ?? Lighting: sunlight and fluorescent lights triggers FND symptoms ?? ID currently using sunglasses inconsistently outdoors. Indoors she avoids lights at home and in community she looks at floor when there is fluorescent lights. ?? Multitasking: being interrupted during another tasks triggers FND symptoms ?? Fatigue: id when she is overactive (physical/cognitive) triggers FND symptoms. (i.e.: daughters graduation democrat using scooter she attended and felt good but FND symptoms worsen for next 5 days tohave severe symptoms : throwing up, pain, muscle posturing). ?? Ct id pain increases when sitting at desk and in supine in bed. Mod verbal ed on how sitting andlaying positions can promote pain. Ct stated fair verbal understanding of ed. HEP: ?? Complete FND activity and food logs ?? Take video of how transitions from sitting EOB to supine. ?? Complete sensory profile Functional Neurological Disorder Management Problem: Kylee has decreased awareness of management strategies for FND symptoms Current status: ?? Mod verbal skilled ed on how self regulation (thirst, hunger, fatigue, temp regulation, emotional regulation) have on FND symptoms. Ct stated fair verbal understanding of ed. ?? Lighting Strategies: ?? Mod verbal ed on use strategies: ?? sunglasses when outside ?? baseball hats when she has do be indoors for community activities. ?? Multitasking strategy ?? Mod visual and verbal ed on: ?? Purse lip breathing: ed on breathing pattern, use of tactile input assure diaphragmatic breath, and then on visualizing during inhale (smell the fischer) and exhale (blow the candles) ?? 1st trial; holding hands on stomach breath pattern was unregulated with shallow breaths for inhale and exhale ?? 2nd trial: eyes closed improve inhale and exhale with mild shallow breaths for inhale and no difficulty with exhale ?? 3rd trial: eyes closed, visualized fischer on inhale and candles on exhale, no shallow breath, good inhale and exhale. ?? Postural strategies ?? Supine and side lying in bed ?? Mod verbal and visual ed on side lying positing and supine positioning using a pillow and on effects on lack of support in relation to lower back pain. Handout provided showing pictures. ?? Ct stated fair verbal understanding of ed. ?? Sitting at desk ?? Mod verbal and visual ed on 90-90-90 sitting posture at desk, strategies to promote 90-90-90 posture, keyboard positioning, and effects of bad posture on lower back.. ?? Min verbal and visual ed on lower back roll. ?? Ct stated fair verbal understanding of ed. HEP: ?? Use purse lip breathing during all times she is interrupted and FND is triggered ?? Implement pillow under knees in supine and side lying in bed. ?? Implement 90-90-90 postures and keyboard being at belly level. Work Problem: Kylee reported having difficulties at her job with the [employer]. Kylee reported having difficulties taking phone calls and walking into work. ?? 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 She is worried her job will insist she go out on STD/LTD when project is over. Mod verbal ed on importance to ask about effects STD/LTD has on her health benefits. Ct stated fair verbal understanding of ed. ?? MD agreed to help her with attaining a handicap parking pass in [place]. HEP: ?? Assess work health benefits if she is forced to take STD/LTD Skilled Education: Client was educated on: - POC for today and next session Client and her daughter stated fair verbal awareness. Assessment: Session focused on FND education and FND management strategies. Ct stated fair awareness of her triggers. OTR initiated training on purse lip breathing, visualization, postural strategies, and visual strategies. Ct id though it was hard to initiate she felt hopeful the purse lip breathing and visualization strategies will help manage her FND symptoms. Ct was agreeable to postural changes for bed and desk tasks and lighting strategies. OTR is hopeful that postural strategies may decrease back and LE pain as current posture is prompting back pain. Light strategies will trial to id helpfulness. Activity and nutrition trackers were filled in but left at home. OTR hoped to analyze this information to gain insight into symptoms/triggers next session. Client will benefit from continued OT services at 1x/week to improve FND symptom management to facilitate improved success within home and community activities. Plan: Goals for Occupational Therapy Intervention Short Term Goals: Goals Status 1. Ct will maintain a daily log of activities and its effect on her medical condition, 5/7 days a week for 6 wk's to id triggers of Functional Neurological Disorder within 2 mths. Met on 11/20 wks. Progressing (06/04/2021) 2. Ct will state awareness of her body signs for heart rate (pulse/heart beat), tempeture change, hunger/thirst (stomach, HASTINGS, dryness of mouth), and tiredness (eyes or body heavy), 80% of the time, per parent and ct report on 2/3 wks in 3 mths. New (03/11/2021) 3. Ct will maintain a daily log of eating and drinking and its effect on her medical condition, 5/7days a week for 6 wks to id triggers of Functional Neurological Disorder (FND) within 2 mths. Met on 11/20 wks. Progressing (06/04/2021) 4. Ct will id trigger for Functional Neurological Disorder (FND) to identify adaptive strategy to manage trigger, 80% of the time within 2 mths. ID ed: -light on 2/2 wks -heat -trauma/stress - being interpreted when working on task on 11/20 wks. Progressing (06/04/2021) 5. Ct will implement 3-4 adaptive strategies for Functional Neurological Disorder (FND) with min vcto increase managing of FND symptoms within 3 mths. Id: - purse lip breathing - visualization - postural bed strategies - postural desk strategies - light management strategies Progressing (06/04/2021) Safety And Health Consultant Goals: Goals Status 1. Ct will manage triggers for Functional Neurological Disorder, 80% of the time within 4 mths. New (03/11/2021) 2. Ct will brush and style her hair using 1-2 adaptive strategies with 80% success for 3/4 weeks within 4 months. New (03/11/2021) 3. Ct will eat with utensils using 1-2 adaptive strategies with 80% success for 3/4 weeks within 5 months. New (03/11/2021) 4. Ct will UE and LE dressing using 3-4 adaptive strategies with 80% success for 3/4 weeks within 6months. New (03/11/2021) 5. Ct will cook a 2-3 step meal using 3-4 adaptive strategies with 80% success for 3/4 weeks within6 months. New (03/11/2021) 6. Ct will complete laundry using 3-4 adaptive strategies with 80% success for 3/4 weeks within 6 months. New (03/11/2021) 7. Ct will talk using 1-2 adaptive strategies to manage FND symptoms to continue conversation with 80% success on 3/4 weeks within 5 months. New (03/11/2021) 8. Ct will shop for 10 items using 1-2 adaptive strategies with 80% success for 3/4 weeks within 6 months. New (03/11/2021) Start Time: 805 End Time: 905 Kandace Freedman OT documented in this encounter Plan of Treatment Not on file documented as of this encounter Visit Diagnoses Diagnosis Unspecified abnormal involuntary movements- Primary documented in this encounter Care Teams Sawmill Manager Relationship Specialty Start Date End Date Andrei Clark MD PCP - General Internal Medicine 12/11/20 Kandace Freedman OT [address] [place] [address] Occupational Therapist Occupational Therapy 03/15/21 documented as of this encounter
--- OUTSIDE RECORDS SUMMARY | 2024-11-17 14:27 | XMS_ITS | Encounter Summary ---
Author Organization [facility] Address [address] [place] [address] Phone Care Team Providers Care Advanced Research Programs Director Name Role Phone Andrei Clark MD Primary Care Provider [phone] Reason for Visit * Reason Comments Stuttering Muscle Pain involuntary movements * Consultation (Routine) - Closed Specialty Diagnoses / Procedures Referred By Tiburcio caicedo Referred To Contact Neurology Diagnoses Abnormal movements Andrei Clark MD Phone: tel: fax: [facility] [address] [place] [address] [place] [address] Phone: tel: fax: Referral ID Status Reason Start Date Expiration Date V isits Requested Visits Authorized [id number] Closed Specialty Services Required 12/24/2020 01/23/2022 1 1 Encounter Details Date Type Department Care Team (Late st Contact Info) Description 12/30/2020 1:00 PM [employer] Office Visit [facility] [address] [place] [address] [place] [address] Dioni Pérez MD PhD [address] [place] [address] Unspecified abnormal involuntary movements (Primary Dx); Abnormal movements Social History Tobacco Use Types [...] on file Legal Sex Female 4:48 PM [employer] Gender Identity Not on file Sexual Orientation Not on file documented as of this encounter Last Filed Vital Signs Vital Sign Reading Time Taken Comments Blood Pressure 177/90 12/30/2020 1:00 PM [employer] Pulse 122 12/30/2020 1:00 PM [employer] Temperature 36.9 ??C (98.5 ??F) 12/30/2020 1:00 PM CS T Respiratory Rate - - Oxygen Saturation - - Inhaled Oxygen Concentration - - Weight 97.8 kg (215 lb 9.6 oz) 12/30/2020 1:00 P M [employer] Height 162.6 cm (5' 4 ) 12/30/2020 1:00 PM [employer] Body Mass Index 37.01 12/30/2020 1:00 PM [employer] documented in this encounter Patient Instructions * Patient Instructions* Dioni Pérez MD PhD - 12/30/2020 1:00 PM [employer] You have multiple symptoms that may not all fit into a single neurologic syndrome. It is important to follow through with the video EEG test to determine if any of these symptoms may be related to seizures or epilepsy, or whether there may be another cause. It is possible that some of your symptomsmay represent a Functional Neurological Disorder, which is a pattern of symptoms that can be a physical manifestation of an underlying stressor. If your team of doctors determines that Functional Neurological Disorder is the most likely explanation, then the best treatment may be a combination of psychotherapy, cognitive behavioral therapy, and/or medications to treat anxiety or depression. I would recommend that you not drive or engage in any other potentially dangerous activities until you have had no spells of altered consciousness for at least 6 months. [employer] documented in this encounter Progress Notes * Dioni Pérez MD PhD - 12/30/2020 1:00 PM [facility] Office Visit Patient: Kylee Guo Referred by: Andrei Clark MD : 1985 Visit Date: 12/30/2020 Clinician: Dioni Pérez MD (Gus) PhD Chief Complaint Kylee Guo is a 35 y.o. female who presents for Stuttering, Muscle Pain, and involuntary movements Hand Dominance: Referred by Andrei Clark MD. Her PMD is Andrei Clark MD. HPI: Ms. Guo is an 35 y.o. right handed female with a chief complaint of stuttering and muscle tightness and pain. She came with her son Mark who helped to provide some history. She first noticed tightening of her muscles a few years ago, began in legs and hips, then arms which have gotten worse over last 2 years. The pain feels like fire on the inside. Initially symptoms would come and go. Arms and legs are affected 95% of the time, and back can be affected if she exerts herself. She has difficulty cooking, stirring, and holding arms above her head, as well as pushingand pulling objects. She also notes a lack of energy which is more fatigue than sleepiness. Being completely still and flat makes it a lot better but if she lies down too much her hips hurt in a different way. Activity makes it worse. Over time her walking has gotten worse, the last month has been the worst, she notes tightness in lumbar region and hips and thighs which causes paralyzing fire pain that prevents her from walking. Her left leg sometimes locks up and she has to swing it around but sometimes the right leg locks up, sometimes both at the same time. She has had no falls. She uses other people for support and a walker. She also has dizzy spells characterized by a light switch out of nowhere with a sensation of being spun around and then leg go. These occur with no warning, come on suddenly, last seconds to 2-3 minutes, she is disoriented and speech is different, she has a hard time getting words out. Her son indicated she has facial asymmetry during spells in whichshe does not speak or move her head but can communicate accurately with yes/no questions by squeezing his hand. She began stuttering over the last 2 years, this got worse several months ago and involved her eyes rolling back in her head according to her sister who witnessed one episode. She reportsno days completely free of symptoms in the last 1-2 years although September 2020 was better in terms of more energy. She noted that this occurred recently after increasing her dose of sertraline. Hao has muscle twitching in multiple body parts from head to toe, no clear pattern of timing or grouping. She also has shaking in her legs. Her son notes that she may have a period of a delay of seconds before responding in conversation and this can precede a more extensive spell. She may have had a few spells with lack of responsiveness. She thinks she sleeps better since starting levetiracetam Nov 2020, but her hands are worse. Convulsions at night have improved but other symptoms are the same. She does not describe extreme stressors currently. 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 She changed guerra to work in [employer] 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 She did have more stress around the time of starting with [employer] Shementioned some traumatic experiences earlier in her life and worked with counselors to address this. She saw neurologist Dr. Umer Jimenez. Current Outpatient Medications Medication Sig Dispense Refill ??? dulaglutide (TRULICITY) 1.5 mg/0.5 mL pen injector 0.5 mL ??? fluticasone (FLONASE) 50 mcg/actuation nasal spray ??? glimepiride (AMARYL) 1 mg tablet TAKE 2 TABLETS BY MOUTH TWICE DAILY BEFORE MEAL(S) ??? hydroCHLOROthiazide (HYDRODIURIL) 12.5 mg tablet hydrochlorothiazide 12.5 mg tablet ??? insulin degludec (TRESIBA) 200 unit/mL (3 mL) insulin pen Tresiba FlexTouch U-200 insulin 200 unit/mL (3 mL) subcutaneous pen ??? levETIRAcetam (KEPPRA) 750 mg tablet 2 (two) times a day ??? losartan (COZAAR) 100 mg tablet losartan 100 mg tablet TAKE 1 TABLET BY MOUTH ONCE DAILY ??? metFORMIN (GLUCOPHAGE) 500 mg tablet Take 500 mg by mouth ??? metoprolol (LOPRESSOR) 25 mg tablet ??? POTASSIUM CHLORIDE ER 10 mEq CR tablet ??? propranolol (INDERAL) 20 mg tablet Take 20 mg by mouth daily ??? rosuvastatin (CRESTOR) 10 mg tablet rosuvastatin 10 mg tablet TAKE 1 TABLET BY MOUTH ONCE DAILY IN THE EVENING ??? sertraline (ZOLOFT) 100 mg tablet sertraline 100 mg tablet TAKE 1 TABLET BY MOUTH ONCE DAILY FOR 30 DAYS ??? acetaZOLAMIDE (DIAMOX) 250 mg tablet Take 250 mg by mouth 2 (two) times a day ??? amLODIPine (NORVASC) 5 mg tablet Take 10 mg by mouth daily ??? aspirin 81 mg enteric coated tablet ??? cephalexin (KEFLEX) 500 mg capsule ??? DOXYCYCLINE 100 mg tablet ??? furosemide (LASIX) 20 mg tablet Take 20 mg by mouth daily as needed ??? HYDROcodone-acetaminophen (NORCO) 5-325 mg per tablet Take 1 tablet by mouth every 6 (six) hours as needed No current facility-administered medications for this visit. Allergies Allergen Reactions ??? Metoclopramide Anxiety ??? Ondansetron Anxiety ??? Phenergan [Promethazine] Anxiety ??? Prochlorperazine Anxiety Past Medical History: Diagnosis Date ??? CKD (chronic kidney disease) stage 2, GFR 60-89 ml/min ??? Diabetes mellitus (CMS/HCC) ??? DVT (deep venous thrombosis) (CMS/HCC) ??? Idiopathic intracranial hypertension ??? Pituitary tumor ??? Polycystic kidney disease ??? Polycystic ovarian disease ??? Renal disorder Past Surgical History: Procedure Laterality Date ??? SECTION ??? CHOLECYSTECTOMY ??? LUMBAR PUNCTURE WO INJECTION, DIAGNOSTIC N/A 02/11/2019 ??? TUBAL LIGATION Family History Problem Relation Age of Onset ??? Hypertension Mother ??? Seizures Mother ??? Hypertension Father ??? Diabetes Father ??? Seizures Sister Ethnicity: Non- Social History Socioeconomic History ??? Marital status: Single Spouse name: None ??? Number of children: None ??? Years of education: None ??? Highest education level: None Occupational History ??? None Social Needs ??? Financial resource strain: None ??? Food insecurity Worry: None Inability: None ??? Transportation needs Medical: None Non-medical: None Tobacco Use ??? Smoking status: Former Smoker Types: Cigarettes Quit date: 06/01/2019 Years since quittin.5 ??? Smokeless tobacco: Never Used Substance and Sexual Activity ??? Alcohol use: Never Frequency: Never ??? Drug use: Never ??? Sexual activity: None Lifestyle ??? Physical activity Days per week: None Minutes per session: None ??? Stress: None Relationships ??? Social connections Talks on phone: None Gets together: None Attends roman catholic service: None Active member of club or organization: None Attends meetings of clubs or organizations: None Relationship status: None ??? Intimate partner violence Fear of current or ex partner: None Emotionally abused: None Physically abused: None Forced sexual activity: None Other Topics Concern ??? None Social History Narrative ??? None Review of Systems Constitutional: Negative for fever. HENT: Negative for trouble swallowing. Eyes: Negative for visual disturbance. Respiratory: Negative for cough. Cardiovascular: Negative for chest pain and palpitations. Gastrointestinal: Negative for blood in stool. Endocrine: Negative for polyuria. Genitourinary: Negative for hematuria. Musculoskeletal: Positive for gait problem. Skin: Negative for rash. Neurological: Positive for dizziness and tremors. Psychiatric/Behavioral: Positive for decreased concentration. Vitals BP (!) 177/90 (BP Location: Left arm, Patient Position: Sitting) Pulse 122 Temp 36.9 ??C (98.5 ??F) (Temporal) Ht 162.6 cm (5' 4 ) Wt 97.8 kg (215 lb 9.6 oz) BMI 37.01 kg/m?? Physical Exam Mental Status LOC: Alert Orientation: Normal Attention: Normal Speech: Abnormal Hyperkinetic: Mild Pressured: Mild Stutter: Severe Language: Normal Mood: Normal Thought Content: Normal Cranial Nerves Guerra: Full Pupils Right: 4 Pupils Left: 4 Reaction to Light - Right: 3 Reaction to Light - Left: 3 Shape - Right: Round Shape - Left: Round Extraocular Movements: Full Nystagmus: None Cranial Nerves Continued Facial Strength - Both: Normal Tongue: Normal Motor - Voluntary Muscle Bulk: Normal Strength: Normal(Improved with encouragement) Fasciculations: Absent Motor - Involuntary Part 1 Tics: Present Simple Vocal Tics: 2 - Mild Simple Neck/Shoulder Tics: 2 - Mild Dystonic Vocal Tics: 3 - Moderate Dystonic Face Tics: 3 - Moderate Dystonic Neck/Shoulder Tics: 3 - Moderate Dystonic Trunk Tics: 3 - Moderate Dystonic RUE Tics: 3 - Moderate Dystonic LUE Tics: 3 - Moderate Dystonic RLE Tics: 3 - Moderate Dystonic LLE Tics: 3 - Moderate Dystonic All Parts Tics: 3 - Moderate Sensory Exam Temperature: Abnormal(atypical patchy loss of temperature in both legs) Vibration: Normal Coordination Omnavf-Gnaz-Ozuryo: Normal(No ataxia but prominent tremor.) Gait Gait: 5 - abnormal(elements of astasia-abasia with extension of right hip and knee but no support required) Base: inconsistent Reflexes Biceps - Right: 2 - normal Biceps - Left: 2 - normal Knees - Right: 2 - normal Knees - Left: 2 - normal Ankles - Right: 2 - normal Ankles - Left: 2 - normal Plantar Stimulation - Right: equivocal Plantar Stimulation - Left: upgoing Assessment/Plan Diagnoses and all orders for this visit: Unspecified abnormal involuntary movements (R25.9) (Primary) Assessment & Plan: She has abnormal involuntary movements including vocalizations, single movements and posturing of head, neck, trunk, and limbs with variable involvement, speed, amplitude, and repetition, and stuttering. By history she also has periods of inattention or decreased responsiveness. The etiology is notclear at this time. There are elements of her movements that could be consistent with dystonia or ti cs, but the variability in symptoms and the pattern of certain symptoms including stuttering raise the possibility of Functional Neurological Disorder. We briefly discussed the nature and approach tomanagement of Functional Neurological Disorders including psychotherapy, cognitive behavioral therapy, and medication management of mood symptoms. I think it is reasonable to proceed with video EEG (scheduled for next month at [facility]) to clarify whether any aspect of these [...] months following any unexplained loss of consciousness. Abnormal movements (R25.9) - Ambulatory referral to Neurology Return if symptoms worsen or fail to improve. [employer] documented in this encounter Miscellaneous Notes * Assessment & Plan Note - Dioni Pérez MD PhD - 12/30/2020 2:14 PM CSTAssociated Problem(s): Unspecified abnormal involuntary movements She has abnormal involuntary movements including vocalizations, single movements and posturing of head, neck, trunk, and limbs with variable involvement, speed, amplitude, and repetition, and stuttering. By history she also has periods of inattention or decreased responsiveness. The etiology is notclear at this time. There are elements of her movements that could be consistent with dystonia or ti cs, but the variability in symptoms and the pattern of certain symptoms including stuttering raise the possibility of Functional Neurological Disorder. We briefly discussed the nature and approach tomanagement of Functional Neurological Disorders including psychotherapy, cognitive behavioral therapy, and medication management of mood symptoms. I think it is reasonable to proceed with video EEG (scheduled for next month at [facility]) to clarify whether any aspect of these [...] months following any unexplained loss of consciousness. [employer] documented in this encounter Plan of Treatment Not on file documented as of this encounter Visit Diagnoses Diagnosis Unspecified abnormal involuntary movements- Primary Abnormal movements documented in this encounter Discontinued Medications Medication Sig Discontinue Reason Start Date End Da te glyBURIDE (DIABETA) 2.5 mg tablet Take 2.5 mg by mouth daily with breakfast Duplicate order 12/30/2020 atorvastatin (LIPITOR) 10 mg tablet Duplicate order 01/22/2019 12/30/2020 insulin glargine (LANTUS,BASAGLAR) 100 unit/mL (3 mL) insulin pen 20 Units daily Duplicate order 12/30/2020 triamterene-hydroCHLORO thiazide (DYAZIDE) 37.5-25 mg per tablet/capsuleIndicatio ns:Endolymphatic hydrops of right ear Take 1 tablet/capsule by mouth daily Duplicate order 04/04/2019 12/30/2020 OLANZapine (ZyPREXA) 5 mg tabletIndications:compl ex migraine head ache Take 1 tablet (5 mg total) by mouth nightly Therapy completed 02/05/2019 12/30/2020 documented as of this encounter Historical Medications * This list may reflect changes made after this encounter. rosuvastatin (CRESTOR) 10 mg tablet Take 1 tablet (10 mg total) by mouth every morning 07/16/2020 aspirin 81 mg enteric coated tablet Take 1 tablet (81 mg total) by mouth every morning 12/28/2020 sertraline (ZOLOFT) 100 mg tablet sertraline 100 mg tablet TAKE 1 TABLET BY MOUTH ONCE DAILY FOR 30 DAYS 2 losartan (COZAAR) 100 mg tablet losartan 100 mg tablet TAKE 1 TABLET BY MOUTH ONCE DAILY 05/31/2020 1 levETIRAcetam (KEPPRA) 750 mg tablet 2 (two) times a day 12/28/2020 1 insulin degludec (TRESIBA) 200 unit/mL (3 mL) insulin pen Tresiba FlexTouch U-200 insulin 200 unit/mL (3 mL) subcutaneous pen 06/12/2020 1 hydroCHLOROthiaz mckenzie (HYDRODIURIL) 12.5 mg tablet Take 12.5 mg by mouth daily 1 glimepiride (AMARYL) 1 mg tablet TAKE 2 TABLETS BY MOUTH TWICE DAILY BEFORE MEAL(S) 09/24/2020 1 dulaglutide (TRULICITY) 1.5 mg/0.5 mL pen injector 0.5 mL 1 added in this encounter Orders Outpatient Referral Count Last Ordered Date Fir st Ordered Date AMB REFERRAL TO NEUROLOGY 1 12/30/2020 documented in this encounter Care Teams Advanced Research Programs Director Relationship Specialty Start Date End Date Andrei Clark MD PCP - General Internal Medicine 12/11/20 documented as of this encounter
--- OUTSIDE RECORDS SUMMARY | 2024-11-17 14:27 | XMS_ITS | Encounter Summary ---
Author Organization [facility] Healthcare Address [address] [place] [address] Care Team Providers Care Barrel Turner Name Role Phone Dorota Martinez MD Primary Care Provider [phone] Reason for Visit * Reason Comments Syncope Hyperglycemia Encounter Details Date Type Department Care Team (Late st Contact Info) Description 08/23/2019 3:01 PM CDT - 08/23/2019 10:45 PM CDT Emergency [facility] Emergency Department [address] [place] [address] Savage Castillo MD [address] [place], [place] [id number] Benign myoclonus of drowsiness (Primary Dx); Other migraine without status migrainosus, not intractable; Hyperglycemia; Insulin dependent diabetes mellitus ([facility]/HCC); Elevated hemoglobin A1c Discharge Disposition: Discharge to home or self [...] on file 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 Gender Identity Not on file Sexual Orientation Not on file documented as of this encounter Last Filed Vital Signs Vital Sign Reading Time Taken Comments Blood Pressure 166/100 08/23/2019 10:30 PM CDT Pulse 102 08/23/2019 10:30 PM CDT Temperature - - Respiratory Rate 15 08/23/2019 10:30 PM CDT Oxygen Saturation 96% 08/23/2019 10:30 PM CDT Inhaled Oxygen Concentration - - Weight - - Height - - Body Mass Index - - documented in this encounter Discharge Diagnoses Diagnosis Myoclonus - MYOCLONUS Other migraine, not intractable, without status migrainosus - OTHER MIGRAINE, NOT INTRACTABLE, WITHOUT STATUS MIGRAINOSUS Type 2 diabetes mellitus with hyperglycemia (CMS/HCC) (HCC) - TYPE 2 DIABETES MELLITUS WITH HYPERGLYCEMIA Chronic kidney disease, stage 2 (mild) - CHRONIC KIDNEY DISEASE, STAGE 2 (MILD) Hypertensive chronic kidney disease with stage 1 through stage 4 chronic kidney disease, or unspecified chronic kidney disease - HYPERTENSIVE CHRONIC KIDNEY DISEASE WITH STAGE 1 THROUGH STAGE 4 CHRONIC KIDNEY DISEASE, OR UNSPECIF Type 2 diabetes mellitus with diabetic chronic kidney disease (HCC) - TYPE 2 DIABETES MELLITUS WITH DIABETIC CHRONIC KIDNEY DISEASE Personal history of other venous thrombosis and embolism - PERSONAL HISTORY OF OTHER VENOUS THROMBOSIS AND EMBOLISM Polycystic kidney, unspecified - POLYCYSTIC KIDNEY, UNSPECIFIED Personal history of nicotine dependence - PERSONAL HISTORY OF NICOTINE DEPENDENCE intermediate (current) use of insulin (HCC) - ASSOCIATE MEDICAL DIRECTOR (CURRENT) USE OF INSULIN 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 You where found to have high blood sugar however you ketones were within the normal range. You were also found to have high blood pressure in the 170s systolic. Please restart your blood pressure medications so that you can get it under better control. The remainder of your labs were within normal range. Please makes sure to follow up with your primary care doctor for further evaluation andmanagement of your high blood sugar and high blood pressure. Return to the emergency department if you develop intractable vomiting, develop fever, have abdominal pain or if you faint. * Attachments The following attachments cannot be sent through Care Everywhere. * Diabetes with High Blood Sugar (Afghan) * Diabetes, Diet (Afghan) * Migraine Headache (AfterCare(R) Instructions(ER/ED)) (Afghan) documented in this encounter Medications at Time [...] or self care documented in this encounter ED Notes * Savage Castillo MD - 08/23/2019 4:14 PM CDT HPI Chief Complaint Patient presents with ??? Syncope ??? Hyperglycemia HPI Ms. Guo is 34 yo F w/ T2DM on insulin, HTN, PCKD, CKD (stage2), PCOS, idiopathic intracranial HTNand anxiety brought in by EMS for an episode of blacking out then felt jolt through body when she came to. She was sitting in chair when this occurred and she did not have fall and was still sitting upright throughout episode. Endorses black vision, dizzy and confused for 1 sec after episode. In ambulance on way to ED, she felt a lot of pressure in left arm that lasted 30 min and is resolved. Reports current feeling of uneasiness in chest. Has not had similar episode in the past. Reports nausea x 2 days, however, denies vomiting, abdominal pain, falls, head trauma, syncope or headaches that are worse than her normal. Of note, patient has not taken her blood pressure medications in 1 month because she weaned herself off because she felt she was on too many meds. She checks BP at home a couple times a week and states systolic BPs have been in the 120s. Denies recent EtOH or illicit drug use. Patient History Patient Active Problem List Diagnosis Date Noted ??? Insulin dependent diabetes mellitus (CMS/HCC) 08/23/2019 ??? Idiopathic intracranial hypertension 02/15/2019 ??? Hypertensive retinopathy of both eyes 02/15/2019 ??? Right flank pain 10/21/2013 ??? Pyelonephritis 10/19/2013 Past Medical History: Diagnosis Date ??? CKD [...] Age of Onset ??? Hypertension Mother ??? Hypertension Father ??? Diabetes Father Social History Tobacco Use ??? Smoking status: Former Smoker Types: Cigarettes Last attempt to quit: 06/01/2019 Years since quittin.2 ??? Smokeless tobacco: Never Used Substance Use Topics ??? Alcohol use: Never Frequency: Never ??? Drug use: Never Social History Social History Narrative ??? Not on file Review of Systems Review of Systems Constitutional: Negative for chills, diaphoresis and fever. HENT: Negative for rhinorrhea and sore throat. Eyes: Positive for visual disturbance (for 1 sec following episode today ). Negative for photophobia. Respiratory: Negative for cough and shortness of breath. Cardiovascular: Negative for chest pain, palpitations and leg swelling. Gastrointestinal: Positive for nausea. Negative for abdominal pain, blood in stool, constipation and vomiting. Genitourinary: Negative for dysuria, flank pain and hematuria. Musculoskeletal: Negative for neck pain. Neurological: Positive for headaches. Negative for dizziness, syncope and light-headedness. Physical Exam ED Triage Vitals [08/23/19 1800] Temp Pulse Resp BP SpO2 -- 101 20 (!) 177/99 94 % Temp src Heart Rate Source Patient Position BP Location FiO2 (%) -- -- -- -- -- Physical Exam Constitutional: She appears well-developed and well-nourished. No distress. HENT: Head: Normocephalic and atraumatic. Eyes: Pupils are equal, round, and reactive to light. Conjunctivae and EOM are normal. Cardiovascular: Normal rate. Abdominal: Soft. Bowel sounds are normal. There is no tenderness. Skin: She is not diaphoretic. MDM MDM Number of Diagnoses or Management Options Benign myoclonus of drowsiness: Elevated hemoglobin A1c: Hyperglycemia: Insulin dependent diabetes mellitus (CMS/HCC): Other migraine without status migrainosus, not intractable: Diagnosis management comments: Ms. Guo is 34 yo F w/ T2DM on insulin, HTN, PCKD, CKD (stage2), PCOS, idiopathic intracranial HTN and anxiety brought in by EMS for an episode of blacking out then felt jolt through body when she came to and associated dizziness and confusion for 1 sec following episode. Patient is tachycardic to low 100s, hypertensive to 170s/low 100s. Otherwise hemodynamically stable. Differential diagnosis: myoclonus of drowsiness, anxiety, arrhythmia, unlikely syncope Plan: - cbc, cmp, POCT glucose, ketones, trop, BNP, TSH, urine - EKG Attending Summary of Care ED Course as of Aug 23 2117 Time: 08/23 1623 Comment: ATTENDING MEDICAL DECISION MAKING: Kylee Guo is a 34 y.o. female here for concern for syncope and brief loss of consciousness ( blacking out and dizzy for about 1 sec) at 12:20 pm while sitting at her desk. Remained sitting in chair. Did not fall from chair. Entire episode lasted a few seconds. Hx of multiple medical problems (DM, PCKD, CKD2). Recent change in medications in the past month (self-weaned off multiple anti-HTN drugs). IMPRESSION: very brief (1-2 sec) lapse of consciousness. PLAN: labs, EKG, IV fluids. Reassess. Savage Castillo MD By: Savage Castillo MD Time: 08/23 556 Comment: Pt confirms that the blacking out spell lasted 1 to 2 seconds. She was talking on the phone. The caller was still talking in the same sentence. She did not drop the phone or fall from her chair. By: Savage Castillo MD Benign myoclonus of drowsiness, Active Other migraine without status migrainosus, not intractable Hyperglycemia, Active Insulin dependent diabetes mellitus (CMS/HCC) Elevated hemoglobin A1c, Active ED Attending Attestation: I have seen and examined the patient on 08/23/2019 . I agree with the findings and plan of care as documented in the resident's note. Savage Castillo MD FACE Acid Conditioner, Emergency Medicine Savage Castillo MD 08/23/19 0984 * Deena Sam RN - 08/23/2019 3:01 PM CDT Bed: [facility] Expected date: Expected time: Means of arrival: Ambulance Comments: Deena Sam RN 08/23/19 1501 * Yanely Abraham RN - 08/23/2019 1:50 PM CDT Pt reports sitting at her desk and having a moment of blanking out and then I felt a sudden joltof energy and saw black. I just felt really weird. . documented in this encounter Miscellaneous Notes * ED Procedure Note - Savage Castillo MD - 08/23/2019 2:06 PM CDTAssociated Order(s): ECG 12 lead Procedure ECG 12 lead Date/Time: 08/23/2019 2:06 PM Performed by: Saskia Sheth MD Authorized by: Savage Castillo MD Rate: ECG rate: 119 ECG rate assessment: tachycardic Rhythm: Rhythm: sinus rhythm Ectopy: Ectopy: none QRS: QRS axis: Normal QRS intervals: Normal Conduction: Conduction: normal ST segments: ST segments: Normal T waves: T waves: normal Q waves: Q waves: I, II, V4, V5 and V6 Previous ECG: Previous ECG: Unavailable Interpretation: Interpretation: abnormal Recommended Follow-up: Recommended follow up: PCP follow-up and further workup in the ED Saskia Sheth MD 08/23/19 4140 Savage Castillo MD 08/23/19 4781 documented in this encounter Plan of Treatment Not on file documented as of this encounter Procedures Procedure Name Priority Date/Time Associated Diagnosis Comments POCT GLUCOSE DEVICE Routine 08/23/2019 9 :21 PM CDT DIFFERENTIAL AUTO STAT 08/23/2019 5:2 8 PM CDT PRO B-TYPE NATRIURETIC PEPTIDE STAT 08/23/2019 5:28 PM CDT THYROID FUNCTION CASCADE STAT 08/23/2019 5:28 PM CDT CBC WITH AUTO DIFFERENTIAL STAT 08/23/2019 5:28 PM CDT TROPONIN I STAT 08/23/2019 5:28 PM CDT HEMOGLOBIN A1C STAT 08/23/2019 5:28 PM CDT BASIC METABOLIC PANEL STAT 08/23/2019 5:28 PM CDT POCT HCG, URINE Routine 08/23/2019 3:46 PM CDT ECG 12-LEAD STAT 08/23/2019 2:06 PM CDT POCT KETONE, FINGERSTICK Routine 08/23/2019 1:48 PM CDT POCT GLUCOSE DEVICE Routine 08/23/2019 1 :47 PM CDT documented in this encounter Results * (ABNORMAL) POCT glucose (08/23/2019 9:21 PM CDT) Glucose, POC 241(H) 70 - 199 mg/dL [facility] Blood specimen (specimen) 08/23/2019 9:21 PM CDT 08/23/2019 9:21 PM CDT Notinfile Unknown LAB POCT ORDERABLES - DEVICE F inal Result Performing Organization Address [facility] de Phone Number LUCIEN [address] [address] * (ABNORMAL) Hemoglobin A1c (08/23/2019 5:28 PM CDT) [facility] Hgb A1C 11.1(H) 4.0 - 5.6 % [facility] Estimated Average Glucose 272 mg/dL [facility] Comment: The ADA recommends reporting an estimated Average Glucose (eAG) with all Hemoglobin A1c results using the equation derived from a study of 507 normal and diabetic adults. ??Minority populations were underrepresented and children were not included. ?? (Diabetes Care 31:8617-5267, 2007). ??The eAG is not equivalent to a fasting glucose. Blood specimen (specimen) 08/23/2019 5:28 PM CDT 08/23/2019 6:04 PM CDT us Notinfile Unknown LAB BLOOD ORDERABLES Final Res ult Performing Organization Address [facility] de Phone Number [address] [address] * Differential, auto (08/23/2019 5:28 PM CDT) [facility] Neutrophil abs 3.8 1.7 - 6.5 K/cumm [facility] Imm gran abs 0.0 0.0 - 0.1 K/cumm [facility] Lymphocyte abs 2.2 0.8 - 3.3 K/cumm [facility] Monocyte abs 0.4 0.2 - 0.8 K/cumm [facility] Eosinophil abs 0.2 0.0 - 0.5 K/cumm [facility] Basophil abs 0.0 0.0 - 0.1 K/cumm [facility] Neutrophil pct 57.9 % [facility] Comment: Interpretive Data Percent cell count reference ranges are not reported, since discordance with absolute values may lead to misinterpretation of CBC data. Current Interpretive Data was last revised on 2018. Imm gran pct 0.3 % [facility] Comment: Interpretive Data Percent cell count reference ranges are not reported, since discordance with absolute values may lead to misinterpretation of CBC data. Current Interpretive Data was last revised on 2018. Lymphocyte pct 32.8 % [facility] Comment: Interpretive Data Percent cell count reference ranges are not reported, since discordance with absolute values may lead to misinterpretation of CBC data. Current Interpretive Data was last revised on 2018. Monocyte pct 5.3 % [facility] Comment: Interpretive Data Percent cell count reference ranges are not reported, since discordance with absolute values may lead to misinterpretation of CBC data. Current Interpretive Data was last revised on 2018. Eosinophil pct 3.2 % [facility] Comment: Interpretive Data Percent cell count reference ranges are not reported, since discordance with absolute values may lead to misinterpretation of CBC data. Current Interpretive Data was last revised on 2018. Basophil pct 0.5 % [facility] Comment: Interpretive Data Percent cell count reference ranges are not reported, since discordance with absolute values may lead to misinterpretation of CBC data. Current Interpretive Data was last revised on 2018. Blood specimen (specimen) 08/23/2019 5:28 PM CDT 08/23/2019 6:00 PM CDT us Aashish Eubanks MD LAB BLOOD ORDERABLES Final Re sult [facility] [address] [place] [address] * (ABNORMAL) Basic metabolic panel (08/23/2019 5:28 PM CDT) Sodium 139 135 - 145 mmol/L [facility] Potassium, pl 3.6 3.3 - 4.9 mmol/L [facility] Chloride 108 97 - 110 mmol/L [facility] CO2 21(L) 22 - 32 mmol/L [facility] Anion gap 10 2 - 15 mmol/L [facility] BUN 14 8 - 25 mg/dL [facility] Creatinine 0.49(L) 0.60 - 1.10 mg/dL [facility] Glucose 271(H) 70 - 199 mg/dL [facility] Comment: Interpretive Data Fasting glucose >/= 126 [...] interpretive data was last revised 2017. Calcium 8.0(L) 8.5 - 10.3 mg/dL [facility] Blood specimen (specimen) 08/23/2019 5:28 PM CDT 08/23/2019 6:00 PM CDT Narrative [facility] - 08/23/2019 6:38 PM CDT THE BJ COLLECTION LOCATION IS [facility] ED2[facility] us Aashish Eubanks MD LAB BLOOD ORDERABLES Final Re sult Performing Organization Address [facility] Co de Phone Number [address] [address] * TSH reflex to free T4 (08/23/2019 5:28 PM CDT) TSH 2.40 0.30 - 4.20 mcIUnit/mL [facility] Blood specimen (specimen) 08/23/2019 5:28 PM CDT 08/23/2019 6:00 PM CDT Narrative [facility] - 08/23/2019 6:38 PM CDT THE COLLECTION LOCATION IS [facility] ED2[facility] us Aashish Eubanks MD LAB BLOOD ORDERABLES Final Re sult Performing Organization Address [facility] Co de Phone Number [address] [address] * Pro B-type natriuretic peptide (08/23/2019 5:28 PM CDT) NT-proBNP <50 <=300 pg/mL [facility] Comment: Interpretive Comments: A. Dyspnea in Acute Care Setting All Ages: ?< 300 pg/ml, acute heart failure unlikely. < 50 yrs: ?300 - 450 pg/ml, further investigation warranted. ? > 450 pg/ml, acute heart failure likely. 50 - 74 yrs: ? 300 - 900 pg/ml, further investigation warranted. ? > 900 pg/ml, acute heart failure likely . > or = 75 yrs: ? 450 - 1800 pg/ml, further investigation warranted. ? > 1800 pg/ml, acute heart failure likely. B. Non-acute Setting < 75 yrs ? < 125 pg/ml, rules out heart failure. ? > or = 125 pg/ml, further investigation warranted. > or = 75 yrs ?< 450 pg/ml, rules out heart failure. ? > or = 450 pg/ml, further investigation warranted. - Knowledge of each individual patient's NT-proBNP range may be more useful than using similar cut-points for every patient. Please note that marked elevations in NT-proBNP levels may be observed in state other than Left Ventricular Congestive Failure, including: acute coronary syndromes, right heart strain/failure (including pulmonary embolism and cor pulmonale), critical illness, renal failure, as well as advanced age. - References: 1. Bennett GUILLAUME et.al. Eur Heart J. 2006:27:330-337. 2. Mg RW, Miguelangel AM. J. AM Juan Cardiol: Cardiovasc Imag. 2009;2: 216- 225. Interpretive Data Last Revised Date: 2018. Blood specimen (specimen) 08/23/2019 5:28 PM CDT 08/23/2019 6:00 PM CDT Narrative [facility] - 08/23/2019 6:58 PM CDT THE COLLECTION LOCATION IS [facility] ED2[facility] Aashish Eubanks MD LAB BLOOD ORDERABLES Final Re sult Performing Organization Address [facility] Co de Phone Number [address] [address] * Troponin I (08/23/2019 5:28 PM CDT) Troponin I <0.03 0.00 - 0.03 ng/mL [facility] Comment: Interpretive Data: Normal plasma Troponin I concentrations can reach 1 ng/mL in the first two weeks of life and slowly decrease to adult levels (<0.03 ng/mL) by the age of 3 months. > 3 months ??<0.03 ng/mL > or = 18 years Serial determinations are recommended for the diagnosis of myocardial infarction. ??Temporal rise and fall are consistent with myocardial infarction when at least one value is above the 99th percentile upper reference limit for Troponin assay. References: 1. Clin Chem 2013;59:2057-1177 2. Journal of the [place] [employer] 2012;60:1581-98 Current Interpretive Data Last Revised Date: 2018. Blood specimen (specimen) 08/23/2019 5:28 PM CDT 08/23/2019 6:00 PM CDT Narrative [facility] - 08/23/2019 6:42 PM CDT THE COLLECTION LOCATION IS [facility] ED2-27 us Aashish Eubanks MD LAB BLOOD ORDERABLES Edited R esult - Final Performing Organization Address [facility]/ZIP Co de Phone Number [address] [address] * (ABNORMAL) CBC with auto differential (08/23/2019 5:28 PM CDT) WBC 6.6 3.8 - 9.9 K/cumm [facility] Hgb 11.8(L) 11.9 - 15.5 g/dL [facility] Hct 36.4 35.6 - 45.5 % [facility] Plt 254 150 - 400 K/cumm [facility] MPV 8.7(L) 9.1 - 12.3 fL [facility] RBC 4.35 3.90 - 5.20 M/cumm [facility] MCV 83.7 81.3 - 96.4 fL [facility] MCH 27.1 27.1 - 33.3 pg [facility] MCHC 32.4 32.3 - 35.7 g/dL [facility] RDW CV 13.8 11.1 - 14.9 % [facility] RDW SD 41.7 35.7 - 48.1 fL [facility] NRBC abs 0.00 0.00 - 0.01 K/cumm [facility] Blood specimen (specimen) 08/23/2019 5:28 PM CDT 08/23/2019 6:00 PM CDT Narrative [facility] - 08/23/2019 6:07 PM CDT THE COLLECTION LOCATION IS [facility] ED2-27 us Aashish Eubanks MD LAB BLOOD ORDERABLES Final Re sult [facility] [address] [place] [address] * POCT hCG, urine (08/23/2019 3:46 PM CDT) HCG, ur, POC Negative Lot Number [id number] QC Backgroud Clear Acceptable QC Control Line Acceptable Urine 08/23/2019 3:46 PM CDT us Saskia Sheth MD POINT OF CARE TEST ORDERA BLES Final Result * (ABNORMAL) ECG 12-LEAD (08/23/2019 2:06 PM CDT) Narrative [facility] - 08/23/2019 2:06 PM CDT Savage Castillo MD ? 08/23/2019 ??5:43 PM ECG 12 lead Date/Time: 08/23/2019 2:06 PM Performed by: Saskia Sheth MD Authorized by: Savage Castillo MD Rate: ??ECG rate: ??119 ??ECG rate assessment: tachycardic ?? Rhythm: ??Rhythm: sinus rhythm ?? Ectopy: ??Ectopy: none ?? QRS: ??QRS axis: ??Normal ??QRS intervals: ??Normal Conduction: ??Conduction: normal ?? ST segments: ??ST segments: ??Normal T waves: ??T waves: normal ?? Q waves: ??Q waves: ??I, II, V4, V5 and V6 Previous ECG: ??Previous ECG: ??Unavailable Interpretation: ??Interpretation: abnormal ?? Recommended Follow-up: ??Recommended follow up: PCP follow-up and further workup in the ED ?? Savage Castillo MD ECG ORDERABLES Edited Res ult - Final Performing Organization Address [facility] Co de Phone Number [facility] * POCT ketone, fingerstick (08/23/2019 1:48 PM CDT) Ketones, Blood, POC 0.4 0.1 - 0.5 mmol/L Blood specimen (specimen) 08/23/2019 1:48 PM CDT Savage Castillo MD POINT OF CARE TEST ORDERAB LES Final Result * (ABNORMAL) POCT glucose (08/23/2019 1:47 PM CDT) Glucose, POC 404(H) 70 - 199 mg/dL [facility] Glucose comment 1 RN Notified [facility] Glucose comment 2 Doctor Not[facility] Blood specimen (specimen) 08/23/2019 1:47 PM CDT 08/23/2019 1:47 PM CDT Notinfile Unknown LAB POCT ORDERABLES - DEVICE F inal Result Performing Organization Address [facility]/State/ZIP Co de Phone Number [facility] [address] [place] [address] documented in this encounter Visit Diagnoses Diagnosis Benign myoclonus of drowsiness- Primary Other migraine without status migrainosus, not intractable Hyperglycemia Other abnormal glucose Insulin dependent diabetes mellitus Elevated hemoglobin A1c Other abnormal blood chemistry Insulin dependent diabetes mellitus documented in this encounter Administered Medications Inactive Administered Medications - up to 3 most recent administrations Medication Order MAR Action Action Date Dose Rate Site pczdnigwhw-kxxzvlxzysbzm-wzfoeh ne (ESGIC) 50-325-40 mg per tablet 2 tablet 2 tablet, oral, Once, On Mon08/23/19 at 1736, For 1 dose, Indications: HeadacheIndications:Headache Given 08/23/2019 6:01 PM CDT 2 tablets documented in this encounter Active and Recently Administered Medications Times are shown in CDT. Scheduled Medication Order 08/21/2019 08/22/2019 08/23/2019 pnwvbqhjvw-uwjewvsbmkqlz-zdkzumu e (ESGIC) 50-325-40 mg per tablet 2 tablet (COMPLETED) 2 tablet, oral, Once, On Mon08/23/19 at 1736, For 1 dose, Indications: Headache 1801 (Given - Provid er: Tanesha Vincent RN) documented in this encounter Orders Medications Ordered That Brendan ht Not Have Been Administered Count Last Ordered Date First Ordered Date tmhqwzizfd-mcnpdkbjimiqd-xbn feine (ESGIC) 50-325-40 mg per tablet 2 tablet 1 08/23/2019 Lab Orders Without Results Count Last Ordered D ate First Ordered Date HEMOGLOBIN A1C 1 08/23/2019 POCT GLUCOSE DEVICE 1 08/23/2019 Nursing Count Last Ordered Date First Orde red Date NURSING COMMUNICATION 1 08/23/2019 documented in this encounter Care Teams Barrel Turner Relationship Specialty Start Date End Date Dorota Martinez MD [facility] [address] [place] [address] PCP - General 02/11/19 12/10/20 documented as of this encounter
--- OUTSIDE RECORDS SUMMARY | 2024-11-17 14:27 | XMS_ITS | Encounter Summary ---
Author Organization [facility] Healthcare Address [address] [place] [address] Care Team Providers Care Hvac Installation Technician Name Role Phone Andrei Clark MD Primary Care Provider [phone] Kandace Freedman OT Unavailable [phone] Christina Brunson MD Unavailable [phone] Encounter Details Date Type Department Care Team (Latest Contact Info) Description 09/06/2022 2:45 PM CDT - 09/06/2022 11:59 PM CDT Hospital Encounter [facility] [address] [place], [place] [id number] Diagnosis unknown Discharge Disposition: Discharge to home [...] on file 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 Gender Identity Not on file Sexual Orientation Not on file documented as of this encounter Medications at Time of Discharge acetaminophen (TYLENOL) 500 mg tabletIndication s:Pain Take 2 tablets (1,000 mg total) by mouth every 6 (six) hours as needed for pain 30 tablet 09/30/2022 aspirin 81 mg enteric coated tablet Take 1 tablet (81 mg total) by mouth every morning 12/28/2020 buPROPion XL (WELLBUTRIN XL) 150 mg 24 hr tablet Take 1 tablet (150 mg total) by mouth every morning 06/21/2021 dapagliflozin (FARXIGA) 10 mg tablet Take 1 tablet (10 mg total) by mouth every morning ibuprofen (ADVIL,MOTRIN) 600 [...] 4 TIMES DAILY BEFORE MEALS 2021 2 dilTIAZem (CARDIZEM) 30 mg tablet diltiazem 30 mg tablet TAKE 1 TABLET BY MOUTH TWICE DAILY 2 fenofibrate (TRIGLIDE) 160 mg tablet TAKE 1 TABLET BY MOUTH ONCE DAILY AT BEDTIME FOR 30 DAYS 05/20/2021 2 losartan-hydroch lorothiazide (HYZAAR) 100-25 mg per tablet TAKE 1 TABLET BY MOUTH ONCE DAILY FOR 30 DAYS 05/28/2021 2 NIFEdipine (PROCARDIA XL/ADALAT CC) 30 mg 24 hr tablet nifedipine ER 30 mg tablet,extended release TAKE 1 TABLET BY MOUTH ONCE DAILY ON AN EMPTY STOMACH 2 sertraline (ZOLOFT) 100 mg tablet sertraline 100 mg tablet TAKE 1 TABLET BY MOUTH ONCE DAILY FOR 30 DAYS 2 Trulicity 4.5 mg/0.5 mL pen injector [...] Diagnosis Comments CT BODY OUTSIDE CONSULT Routine 09/06/2022 2:45 PM CDT Diagnosis unknown documented in this encounter Results * CT Body Outside Consult (09/06/2022 2:45 PM CDT) Anatomical Region Laterality Modality Body N/A Computed Tomogra phy 09/06/2022 3:18 PM CDT Impressions 09/06/2022 3:18 PM CDT 1. Large multilobulated cystic 11.2 cm left adnexal lesion, favor ovarian, with multiple thin internal septations without mural nodularity or discrete solid component. No visualized normal left ovarian tissue is seen. The ovarian cystic lesion abuts multiple loops of small bowel and the descending colon, without evidence of direct invasion. This may reflect ovarian mucinous or serous cystadenoma versus cystadenocarcinoma. Recommend referral to [facility] for diagnostic laparoscopy and surgical removal. The findings, conclusions and recommendations within this report do not replace the initial findings, conclusions ??and recommendations made at the facility where the study was performed based upon the imaging and clinical condition at that time. ??Comparison with the prior report and clinical history is necessary. ??The provided images may or may not represent the [place] source data set and thus may contain changes that may lower the accuracy of this second-opinion interpretation. Electronically signed by: MD Cali Conner 09/06/2022 3:18 PM CDT EXAMINATION: RADIOLOGY CONSULTATION ON OUTSIDE IMAGING STUDY STUDY INITIALLY PERFORMED: 06/28/2022 at [facility]. TYPE OF STUDY: Multiple CT images of the abdomen pelvis with intravenous contrast are provided at the time of this interpretation. CONTRAST ROUTE: Contrast was administered via the intravenous route. The protocol was adequate to address the clinical question. The outside final report was not available at the time of this second opinion interpretation. TYPE OF CONSULTATION: Consult on outside imaging study with images submitted through [facility] DATE OF CONSULTATION: 09/06/2022 2:58 PM HISTORY: 37-year-old female with left lower quadrant pain COMPARISON: None available FINDINGS Lung bases: No focal or diffuse consolidative lung process. No suspicious pulmonary nodules. Heart is normal in size. No pericardial effusion. Pancreas: Normal. No ductal dilatation. Spleen: Normal. Liver: Smooth liver surface. No suspicious hepatic lesions. Patent portal and hepatic veins. - Bile ducts: No ductal dilatation. Gallbladder: Surgically absent Adrenals: Normal Kidneys: Multiple bilateral simple renal cysts an subcentimeter hypoattenuating foci, too small to characterize but favored to represent simple renal cyst. Lobulated contour of the kidneys bilaterally, as may be seen in the setting of multifocal cortical scarring. No hydroureteronephrosis. Ureters follow normal course and caliber. Urinary bladder is moderately distended, thin-walled. Vasculature:No significant calcific atherosclerosis of the aorta and iliac arteries. No aneurysmal dilatation. Reproductive organs: Large multilobulated 11.2 x 8.2 x 10.2 cm (TV by AP by cc) cystic lesion originating from the left adnexa, highly favored to be ovarian in origin given adjacent location to the draining left gonadal vein Multiple thin internal septations are noted, without mural nodularity or discrete solid component. No visualized normal left ovarian tissue is seen. The ovarian cystic lesion abuts multiple loops of small bowel and the descending colon, without evidence of direct invasion. Polycystic ovarian morphology on the right. No additional adnexal lesions. Uterus is present. Coarse calcifications within the anterior lower uterine segment, potentially reflective of prior section versus degenerative uterine fibroid. Bowel: No pathologic enteric dilatation or distention. Appendix is seen within the right lower quadrant, unremarkable. Peritoneum and mesentery: No pathologic mesenteric adenopathy. No free fluid in the abdomen or pelvis. No pneumoperitoneum. Soft tissues and osseous structures: Soft tissues are normal. No aggressive osseous lesions. Procedure Note Ekaterina Rees MD - 09/06/2022 EXAMINATION: RADIOLOGY CONSULTATION ON OUTSIDE IMAGING STUDY STUDY INITIALLY PERFORMED: 06/28/2022 at [facility]. TYPE OF STUDY: Multiple CT images of the abdomen pelvis with intravenous contrast are provided at the time of this interpretation. CONTRAST ROUTE: Contrast was administered via the intravenous route. The protocol was adequate to address the clinical question. The outside final report was not available at the time of this second opinion interpretation. TYPE OF CONSULTATION: Consult on outside imaging study with images submitted through [facility] DATE OF CONSULTATION: 09/06/2022 2:58 PM HISTORY: 37-year-old female with left lower quadrant pain COMPARISON: None available FINDINGS Lung bases: No focal or diffuse consolidative lung process. No suspicious pulmonary nodules. Heart is normal in size. No pericardial effusion. Pancreas: Normal. No ductal dilatation. Spleen: Normal. Liver: Smooth liver surface. No suspicious hepatic lesions. Patent portal and hepatic veins. - Bile ducts: No ductal dilatation. Gallbladder: Surgically absent Adrenals: Normal Kidneys: Multiple bilateral simple renal cysts an subcentimeter hypoattenuating foci, too small to characterize but favored to represent simple renal cyst. Lobulated contour of the kidneys bilaterally, as may be seen in the setting of multifocal cortical scarring. No hydroureteronephrosis. Ureters follow normal course and caliber. Urinary bladder is moderately distended, thin-walled. Vasculature:No significant calcific atherosclerosis of the aorta and iliac arteries. No aneurysmal dilatation. Reproductive organs: Large multilobulated 11.2 x 8.2 x 10.2 cm (TV by AP by cc) cystic lesion originating from the left adnexa, highly favored to be ovarian in origin given adjacent location to the draining left gonadal vein Multiple thin internal septations are noted, without mural nodularity or discrete solid component. No visualized normal left ovarian tissue is seen. The ovarian cystic lesion abuts multiple loops of small bowel and the descending colon, without evidence of direct invasion. Polycystic ovarian morphology on the right. No additional adnexal lesions. Uterus is present. Coarse calcifications within the anterior lower uterine segment, potentially reflective of prior section versus degenerative uterine fibroid. Bowel: No pathologic enteric dilatation or distention. Appendix is seen within the right lower quadrant, unremarkable. Peritoneum and mesentery: No pathologic mesenteric adenopathy. No free fluid in the abdomen or pelvis. No pneumoperitoneum. Soft tissues and osseous structures: Soft tissues are normal. No aggressive osseous lesions. IMPRESSION: 1. Large multilobulated cystic 11.2 cm left adnexal lesion, favor ovarian, with multiple thin internal septations without mural nodularity or discrete solid component. No visualized normal left ovarian tissue is seen. The ovarian cystic lesion abuts multiple loops of small bowel and the descending colon, without evidence of direct invasion. This may reflect ovarian mucinous or serous cystadenoma versus cystadenocarcinoma. Recommend referral to [facility] for diagnostic laparoscopy and surgical removal. The findings, conclusions and recommendations within this report do not replace the initial findings, conclusions and recommendations made at the facility where the study was performed based upon the imaging and clinical condition at that time. Comparison with the prior report and clinical history is necessary. The provided images may or may not represent the [place] source data set and thus may contain changes that may lower the accuracy of this second-opinion interpretation. Electronically signed by: Ekaterina Rees MD us Premal Elia Jackson MD IMG CT PROCEDURES Final Result documented in this encounter Visit Diagnoses Diagnosis Diagnosis unknown documented in this encounter Care Teams Hvac Installation Technician Relationship Specialty Start Date End Date Andrei Clark MD PCP - General Internal Medicine 12/11/20 Kandace Freedman OT [address] [place] [address] Occupational Therapist Occupational Therapy 03/15/21 Christina Brunson MD [address] [facility] [address] [place] [address] Obstetrics and Gynecology 08/02/22 documented as of this encounter
--- OUTSIDE RECORDS SUMMARY | 2024-11-17 14:27 | XMS_ITS | Encounter Summary ---
Author Organization [facility] Healthcare Address [address] [facility] [place] [address] Care Team Providers Care Environmental Law Professor Name Role Phone Andrei Clark MD Primary Care Provider [phone] Encounter Details Date Type Department Care Team (Late st Contact Info) Description 01/19/2021 11:25 AM DEVELOPMENT ENG Lab [address] [address] Preop testing Social History Tobacco Use Types Packs/Day Years [...] on file Legal Sex Female 4:48 PM DEVELOPMENT ENG Gender Identity Not on file Sexual Orientation Not on file documented as of this encounter Plan of Treatment Not on file documented as of this encounter Procedures Procedure Name Priority Date/Time Associated Diagnosis Comments COVID-19 CORONAVIRUS RNA Routine 01/19/2021 8:58 AM DEVELOPMENT ENG Preop testing documented in this encounter Results * COVID-19 Coronavirus RNA Nasopharyngeal (01/19/2021 8:58 AM DEVELOPMENT ENG) COVID-19 RNA Not Detected [facility] Comment: Testing performed as a component of [...] and NAAT . ??Testing performed by the [facility] Molecular Infectious Disease Laboratory. The 2018-Novel Coronavirus Assay (COVID-19) Real Time RT-PCR assay [...] December 24, 2020. First COVID-19 test? Unknown [facility] Employeed in healthcare? Unknown [facility] status? Unknown [facility] Group care resident? Unknown [facility] Hospitalized? Unknown [facility] Is patient in ICU? Unknown [facility] Symptomatic as defined by CDC? No [facility] Nasopharyngeal 01/19/2021 8: 58 AM DEVELOPMENT ENG 01/19/2021 11:53 AM DEVELOPMENT ENG Narrative [facility] - 01/19/2021 7:31 PM DEVELOPMENT ENG What is the reason for testing?->Screening prior to scheduled procedure or surgery Jose Norman MD LAB MICROBIOLOGY - GENERA L ORDERABLES Final Result [facility] Department [place] [address] documented in this encounter Visit Diagnoses Diagnosis Preop testing Unspecified pre-operative examination documented in this encounter Care Teams Environmental Law Professor Relationship Specialty Start Date End Date Andrei Clark MD PCP - General Internal Medicine 12/11/20 documented as of this encounter
--- OUTSIDE RECORDS SUMMARY | 2024-11-17 14:27 | XMS_ITS | Encounter Summary ---
Author Organization [facility] Address [address] [place] [address] Phone Care Team Providers Care Mining Analyst Name Role Phone Dorota Martinez MD Primary Care Provider [phone] Encounter Details Date Type Department Care Team (Late st Contact Info) Description 06/02/[address] 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 Referred by Dr Koo. documented in this encounter Plan of Treatment Not on file documented as of this encounter Visit Diagnoses Not on filedocumented in this encounter Care Teams Mining Analyst Relationship Specialty Start Date End Date Dorota Martinez MD [address] [place] [address] PCP - General 02/11/19 12/10/20 documented as of this encounter
--- OUTSIDE RECORDS SUMMARY | 2024-11-17 14:27 | XMS_ITS | Encounter Summary ---
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 She may benefit from occupational therapy with Kandace Freedman to address this, including with cognitivebehavioral therapy to address triggers or other contextual factors to try to limit the severity andfrequency of involuntary movements. If she is interested in that approach we can send the referral. Thanks Giorgi ----- Message ----- From: Gudelia Bryan Sent: 02/03/2021 10:56 AM CDT To: Dioni Pérez MD PhD Good Morning Dr. Pérez, Patient called this morning to schedule a follow up appointment. She stated she had her video EEG done and was needing to see your recommendation from results. I read your notes from previous visit and was not sure if you would want me to set up a ROV visit for this or if this was something you would just contact patient about. Please advise how to proceed. Thank you Gudelia documented in this encounter Plan of Treatment Not on file documented as of this encounter Visit Diagnoses Not on filedocumented in this encounter Care Teams Cell Tuber Hand Relationship Specialty Start Date End Date Andrei Clark MD PCP - General Internal Medicine 12/11/20 documented as of this encounter
--- OUTSIDE RECORDS SUMMARY | 2024-11-17 14:27 | XMS_ITS | Encounter Summary ---
Author Organization 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 I would be happy to see her back for ROV in 1 year for involuntary movements. ----- Message ----- From: Gudelia Bryan Sent: [...] on filedocumented in this encounter Care Teams Instructor Hairspring Relationship Specialty Start Date End Date Andrei Clark MD PCP - General Internal Medicine 12/11/20 documented as of this encounter
--- OUTSIDE RECORDS SUMMARY | 2024-11-17 14:27 | XMS_ITS | Encounter Summary ---
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 to wean off LEV already and desired to stay off LEV for now even if she might have the original event type recur. We discussed that if that happened, she should contact her PMD or local neurologist to possibly resume LEV and re-evaluate. I providedinformation about resources for finding a counselor including going through her insurance, her PMD,or through the website [email or web address]. For more information about PNES and functional neuro logical disorders, I informed her about neurosymptoms.org and the NEAD (non- epileptic attack disorder) website from [facility]. We discussed that a normal EEG does not rule out a movement disorder. We discussed that Dr. Pérez has more expertise in diagnosing movement disorders, including functional movement disorders, so she should follow up with him for further evaluation and management. We discussed that video clips for all 18 of her episodes during Video/EEG will be archived, and I would be happy to help Dr. Pérez get access to them to review. We discussed that if spells persist or worsen despite treatment or new spells emerge that are concerning for seizures, she should contact her physicians for further evaluation, as repeat Video/EEG may be required. The patient was reminded that she should observe prudent safety precautions including no driving for 6 months after any spontaneous event with loss of awareness, regardless of etiology. She endorsed that none of these events has event caused loss of awareness. I recommended that she not drive even without loss of awareness if her events would make it unsafe to operate a motor vehicle. We discussed that since she is comingoff LEV, she should probably not drive for the next 3 months until she sees how she does off that medication. She endorsed understanding. Discontinue Video/EEG Discharge home today Discharge AEDs: None, LEV discontinued as above Discharge testing: none at this time, repeat Video/EEG may be required to characterize any persistent, worsening, or new events concerning for seizures Follow up with her PMD, Dr. Pérez, and Dr. Koo/Tony's office as scheduled. She may need to call to arrange appointments. She does not need to follow up with Dr. Elizabeth. * Jacquelin Morales MD PhD - 01/30/2021 3:40 PM CST Neurology Daily Progress Note Subjective Chief complaint of seizure. Interval History: She reports her typical events and they have no seizure correlate. She is off herAEDs. Current Facility-Administered Medications Medication Dose Route Frequency Provider Last Rate Last Admin ??? acetaminophen (TYLENOL) tablet 650 mg 650 mg oral Q6H PRN Taryn Archer NP 650 mg at 01/30/21 0820 ??? aspirin enteric coated tablet 81 mg 81 mg oral Daily Taryn Archer NP 81 mg at ??? dextrose (GLUTOSE) 40 % gel 15 g 15 g oral Q15 Min PRN Taryn Archer NP Or ??? dextrose (D10W) 10% bolus 250 mL 250 mL intravenous Q15 Min PRN Taryn Archer NP ??? diphenhydrAMINE (BENADRYL) tab/cap 25 mg 25 mg oral QID PRN Taryn Archer NP 25 mg at 01/30/21 0424 ??? glimepiride (AMARYL) tablet 2 mg 2 mg oral BID AC (bkfst, dinner) Taryn Archer NP 2 mgat 01/30/21 0816 ??? glucagon injection 1 mg 1 mg intramuscular Q30 Min PRN Taryn Archer NP ??? hydroCHLOROthiazide (HYDRODIURIL) tablet 12.5 mg 12.5 mg oral Daily Taryn Archer NP 12.5 mg at 01/30/21 0805 ??? icosapent ethyL (VASCEPA) 0.5 gram capsule 2 g 2 g oral BID with meals (bkfst, dinner) aTryn Archer NP 2 g at 01/30/21 0803 ??? insulin glargine (LANTUS) injection 51 Units 51 Units subcutaneous Nightly Taryn Archer NP 51 Units at 01/29/212129 ??? insulin lispro (HumaLOG, ADMELOG) injection 1-2 Units 1-2 Units subcutaneous TID with meals Taryn Archer NP ??? losartan (COZAAR) tablet 100 mg 100 mg oral Daily Taryn Archer NP 100 mg at 01/30/21804 ??? metFORMIN XR (GLUCOPHAGE XR) tablet 500 mg 500 mg oral Daily with breakfast Taryn Archer NP 500 mg at 01/30/21804 ??? rosuvastatin (CRESTOR) tablet 10 mg 10 mg oral Nightly Taryn Archer NP 10 mg at 01/29/212129 ??? sertraline (ZOLOFT) tablet 100 mg 100 mg oral Daily GianniLucreciaTaryn Tonja, YAMIL 100 mg at 805 ??? sodium chloride 0.9% flush 0.5-20 mL 0.5-20 mL intra-catheter Q8H LEATHA GianniTaryn, YAMIL 10 mL at 01/30/21 1330 ??? sodium chloride 0.9% flush 0.5-20 mL 0.5-20 mL intra-catheter PRN Taryn Archer NP Objective Vitals: 24hr Min/Max: Temp Min: 36.5 ??C (97.7 ??F) Max: 36.6 ??C (97.9 ??F) Pulse Min: 89 Max: 103 BP Min: 116/78 Max: 137/75 Resp Min: 16 Max: 18 SpO2 Min: 98 % Max: 100 % Most Recent: Vitals: 01/30/21 0734 BP: 125/68 Pulse: 89 Resp: 16 Temp: 36.6 ??C (97.9 ??F) SpO2: 99% Physical Exam Constitutional: Comfortable and mood appropriate. Neurologic: Mental status- Alert and oriented x 4. Language- Fluent speech. Follows commands. Cranial nerves II-XII- Extraocular movements full without nystagmus. Face is symmetric with normal strength. No dysarthria. Motor- strength is 5/5 throughout. No drift. Fine finger movements are good. Sensation- intact to light touch. Coordination- [id number] normal. Gait and arm swing normal. I/O last 2 completed shifts: In: 250 [P.O.:240; I.V.:10] Out: - No intake/output data recorded. Lab/Radiology/Diagnostic Review: Recent Results (from the past 24 hour(s)) POCT glucose Collection Time: 01/29/21 4:41 PM Result Value Ref Range Glucose, POC 158 70 - 199 mg/dL POCT glucose Collection Time: 01/29/21 9:16 PM Result Value Ref Range Glucose, POC 224 (H) 70 - 199 mg/dL POCT glucose Collection Time: 01/30/21 7:33 AM Result Value Ref Range Glucose, POC 106 70 - 199 mg/dL POCT glucose Collection Time: 01/30/21 11:47 AM Result Value Ref Range Glucose, POC 136 70 - 199 mg/dL Assessment/Plan Principal Problem: Unspecified abnormal involuntary movements Active Problems: Type 2 diabetes mellitus without complication, without long-term current use of insulin ([facility]) Hypertensive chronic kidney disease This patient will be hooked up to vEEG. There will be suction, oxygen and seizure safety precautions as this patient is at risk for status. AEDs will be weaned as needed to provoke events. Provocative measures such as PS, sleep deprivation and biking will be preformed as needed. This patient will be a full code with a regular diet. This plan of care was discussed with the EMU team and the patient. The vEEG will be reviewed. Jacquelin Suarez MD PhD Cosigned by Rodrick Elizabeth MD PhD at 01/30/2021 5:05 PM SILO TENDER TENDER TENDER Associated attestation - Rodrick Elizabeth MD PhD - 01/30/2021 5:05 PM SILO TENDER I have seen and examined the patient on 01/30/21. I agree with the findings and plan of care as documented in the resident's/fellow's note., as discussed with the resident/fellow., and with the following modifications: The patient is a 35 YO RHF with multiple event types. 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 She recently saw Dr. Pérez who had dystonia, tics, and functional movement disorder on the differential. I personally reviewed the Video/EEG tracing and video, which revealed a normal interictal study andmultiple events with no EEG correlate. See separate EEG report. We discussed that we have yet to capture her most clinically severe event type with loss of consciousness including once with bladder incontinence. This event type has only ever happened with sleep or shortly after waking up from sleep. She noted that her first event this admission may have been triggered by opening the shades and exposing her to bright light as bright, flashing, or flickering lights were mentioned as triggers. I discussed the following plan with the patient and her son. Diagnosis: [place] R56.9 1. Video/EEG for characterization and to guide subsequent treatment. Capturing typical clinical events. Await all event types. 2. Off LEV 3. S/p photic stimulation twice (Monday, ) as a provocative procedure which was successful in eliciting a spell, though not the biggest type, and somewhat atypical. Repeat extensive photicstimulation ( super photic ) as a provocative procedure today (Monday) after last night's sleep deprivation. 4. S/p sleep deprivation as a provocative procedure (Mon-) and again (Mon- Mon) to try to elicit seizures/spells. 5. Could only do bike about 5 minutes due to leg burning feeling. Biked yesterday (Monday). Repeat exercise bike multiple times per day (physical exhaustion) as a provocative procedure today(Monday) to try to elicit seizures/spells * Day, Rodrick Cifuentes MD PhD - 01/30/2021 1:27 PM CST Video-EEG Daily Epoch Report Patient Name: Emma Figueroa [facility] Medical Record Number (MRN): [id number] [facility] Record: [id number] Date of (): 1985 Start Time: 01/29/2021 11:01:59 AM End Time: 01/30/2021 11:01:59 AM Introduction: Ms. Figueroa is a 35 y.o. female with a history of CKD, Diabetes mellitus, polycystic kidney disease, HTN, and anxiety, who presented with events described as stuttering with eyes rolling backwards, feeling dizzy and disoriented, difficult speech, facial changes with her face looking, and difficult walking with her leg locking up , concerning for seizures. Video-EEG was performed to characterize the events and guide subsequent treatment. This is a report of continuous video-EEG monitoring. High definition digital video and digital EEG were recorded continuously with a [employer] EEG acquisition system. This was a 32 [...] rate and rhythm. Daily Video-EEG Description: Epoch 5: 01/29/2021 11:01:59 AM - 01/30/2021 11:01:59 AM The interictal EEG was as described above. There were two clinical events recorded. Event #12 [...] follow the commands correctly. There was no significantEEG change beyond EMG and movement artifact. Interpretation: No seizures were captured during the recording. The noted typical events did not have EEG correlate. The interictal EEG was normal awake, drowsy, and asleep. By signing this report, the attending Electroencephalographer certifies that he/she personally reviewed the electrodiagnostics study and has edited this report to fully conform with his/her intent. Signing Attending: Rodrick Elizabeth MD PhD TENDER TENDER * Taryn Archer NP - 01/29/2021 2:57 PM CST Neurology Daily Progress Note Subjective Chief complaint of seizure. Interval History: She reports a typical events. She is off her AEDs. Current Facility-Administered Medications Medication Dose Route Frequency Provider Last Rate Last Admin ??? acetaminophen (TYLENOL) tablet 650 mg 650 mg oral Q6H PRN Taryn Archer NP 650 mg at 01/28/212037 ??? aspirin enteric coated tablet 81 mg 81 mg oral Daily Taryn Archer NP 81 mg at ??? dextrose (GLUTOSE) 40 % gel 15 g 15 g oral Q15 Min PRN Taryn Archer NP Or ??? dextrose (D10W) 10% bolus 250 mL 250 mL intravenous Q15 Min PRN Taryn Archer NP ??? diphenhydrAMINE (BENADRYL) tab/cap 25 mg 25 mg oral QID PRN Taryn Archer NP 25 mg at 01/28/212037 ??? glimepiride (AMARYL) tablet 2 mg 2 mg oral BID AC (bkfst, dinner) Taryn Archer NP 2 mgat 01/29/21833 ??? glucagon injection 1 mg 1 mg intramuscular Q30 Min PRN Taryn Archer NP ??? hydroCHLOROthiazide (HYDRODIURIL) tablet 12.5 mg 12.5 mg oral Daily Taryn Archer NP 12.5 mg at 01/29/21831 ??? icosapent ethyL (VASCEPA) 0.5 gram capsule 2 g 2 g oral BID with meals (bkfst, dinner) Taryn Archer NP 2 g at 01/29/2134 ??? insulin glargine (LANTUS) injection 51 Units 51 Units subcutaneous Nightly Taryn Archer NP 51 Units at 01/28/212047 ??? insulin lispro (HumaLOG, ADMELOG) injection 1-2 Units 1-2 Units subcutaneous TID with meals Taryn Archer NP ??? losartan (COZAAR) tablet 100 mg 100 mg oral Daily Taryn Archer NP 100 mg at 01/29/21831 ??? metFORMIN XR (GLUCOPHAGE XR) tablet 500 mg 500 mg oral Daily with breakfast Taryn Archer NP 500 mg at 01/29/21831 ??? rosuvastatin (CRESTOR) tablet 10 mg 10 mg oral Nightly Taryn Archer NP 10 mg at 01/28/212037 ??? sertraline (ZOLOFT) tablet 100 mg 100 mg oral Daily Taryn Archer NP 100 mg at ??? sodium chloride 0.9% flush 0.5-20 mL 0.5-20 mL intra-catheter Q8H LEATHA Taryn Archer NP 10 mL at 01/28/212038 ??? sodium chloride 0.9% flush 0.5-20 mL 0.5-20 mL intra-catheter PRN Taryn Archer NP Objective Vitals: 24hr Min/Max: Temp Min: 36.6 ??C (97.9 ??F) Max: 37.9 ??C (100.2 ??F) Pulse Min: 88 Max: 98 BP Min: 127/88 Max: 176/85 Resp Min: 16 Max: 18 SpO2 Min: 98 % Max: 100 % Most Recent: Vitals: 01/29/21 0828 BP: 127/88 Pulse: 98 Resp: 16 Temp: 36.8 ??C (98.2 ??F) SpO2: 99% Physical Exam Constitutional: Comfortable and mood appropriate. Neurologic: Mental status- Alert and oriented x 4. Language- Fluent speech. Follows commands. Cranial nerves II-XII- Extraocular movements full without nystagmus. Face is symmetric with normal strength. No dysarthria. Motor- strength is 5/5 throughout. No drift. Fine finger movements are good. Sensation- intact to light touch. Coordination- [id number] normal. Gait and arm swing normal. I/O last 2 completed shifts: In: 540 [P.O.:540] Out: - No intake/output data recorded. Lab/Radiology/Diagnostic Review: Recent Results (from the past 24 hour(s)) POCT glucose Collection Time: 01/28/21 5:07 PM Result Value Ref Range Glucose, POC 172 70 - 199 mg/dL POCT glucose Collection Time: 01/29/21 7:37 AM Result Value Ref Range Glucose, POC 109 70 - 199 mg/dL POCT glucose Collection Time: 01/29/21 11:27 AM Result Value Ref Range Glucose, POC 146 70 - 199 mg/dL Assessment/Plan Principal Problem: Unspecified abnormal involuntary movements Active Problems: Type 2 diabetes mellitus without complication, without long-term current use of insulin ([facility]) Hypertensive chronic kidney disease This patient will be hooked up to vEEG. There will be suction, oxygen and seizure safety precautions as this patient is at risk for status. AEDs will be weaned as needed to provoke events. Provocative measures such as PS, sleep deprivation and biking will be preformed as needed. This patient will be a full code with a regular diet. This plan of care was discussed with the EMU team and the patient. The vEEG will be reviewed. Taryn Archer NP Cosigned by Rodrick Elizabeth MD PhD at 01/29/2021 3:14 PM SILO TENDER TENDER TENDER Associated attestation - Rodrick Elizabeth MD PhD - 01/29/2021 3:14 PM SILO TENDER I have seen and examined the patient on 01/29/21 in conjunction with the non- physician provider. The patient is a 35 YO RHF with multiple event types. 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 She recently saw Dr. Pérez who had dystonia, tics, and functional movement disorder on the differential. I personally reviewed the Video/EEG tracing and video, which revealed a normal interictal study andmultiple events with no EEG correlate. See separate EEG report. We discussed that we have yet to capture her most clinically severe event type with loss of consciousness including once with bladder incontinence. This event type has only ever happened with sleep or shortly after waking up from sleep. She noted that her first event this admission may have been triggered by opening the shades and exposing her to bright light as bright, flashing, or flickering lights were mentioned as triggers. I discussed the following plan with the patient and her daughter. Diagnosis: [place] R56.9 1. Video/EEG for characterization and to guide subsequent treatment. Capturing typical clinical events. Await all event types. 2. Off LEV 3. S/p photic stimulation twice (Monday, ) as a provocative procedure which was successful in eliciting a spell, though not the biggest type, and somewhat atypical. Consider repeating extensive photic stimulation as a provocative procedure tomorrow (Monday) after sleep deprivation. 4. S/p sleep deprivation as a provocative procedure (Mon-) to try to elicit seizures/spells. Patient slept overnight. Repeat sleep deprivation as a provocative procedure tonight (Mon-Mon) to tryto elicit seizures/spells. 5. Could only do bike about 5 minutes yesterday () due to leg burning feeling. Repeat exercise bike multiple times per day (physical exhaustion) as a provocative procedure today (Monday) to try to elicit seizures/spells * Day, Rodrick Cifuentes MD PhD - 01/29/2021 11:07 AM CST Video-EEG Daily Epoch Report Patient Name: Emma Figueroa [facility] Medical Record Number (MRN): [id number] [facility] Record: [id number] Date of (): 1985 Start Time: 01/28/2021 11:01:59 AM End Time: 01/29/2021 11:01:59 AM Introduction: Ms. Figueroa is a 35 y.o. female with a history of CKD, Diabetes mellitus, polycystic kidney disease, HTN, and anxiety, who presented with events described as stuttering with eyes rolling backwards, feeling dizzy and disoriented, difficult speech, facial changes with her face looking, and difficult walking with her leg locking up , concerning for seizures. Video-EEG was performed to characterize the events and guide subsequent treatment. This is a report of continuous video-EEG monitoring. High definition digital video and digital EEG were recorded continuously with a [employer] EEG acquisition system. This was a 32 [...] rate and rhythm. Daily Video-EEG Description: Epoch 4: 01/28/2021 11:01:59 AM - 01/29/2021 [...] #11 occurred at 4:58 PM on 01/28. During the photic strobe stimulation, the patient had mild body shaking movement, bilateral upper/lower extremity stiffening, and left facial droopy. She could answer the questions slowly and follow the commands correctly. There was no significant EEG change beyond EMG and movement artifact. Interpretation: No seizures were captured during the recording. The noted typical events did not have EEG correlate. The interictal EEG was normal awake, drowsy, and asleep. By signing this report, the attending Electroencephalographer certifies that he/she personally reviewed the electrodiagnostics study and has edited this report to fully conform with his/her intent. Signing Attending: Rodrick Elizabeth MD PhD TENDER TENDER * Rodrick Elizabeth MD PhD - 01/28/2021 2:21 PM CST Video-EEG Daily Epoch Report Patient Name: Emma Figueroa [facility] Medical Record Number (MRN): [id number] [facility] Record: [id number] Date of (): 1985 Start Time: 01/27/2021 11:01:59 AM End Time: 01/28/2021 11:01:59 AM Introduction: Ms. Figueroa is a 35 y.o. female with a history of CKD, Diabetes mellitus, polycystic kidney disease, HTN, and anxiety, who presented with events described as stuttering with eyes rolling backwards, feeling dizzy and disoriented, difficult speech, facial changes with her face looking, and difficult walking with her leg locking up , concerning for seizures. Video-EEG was performed to characterize the events and guide subsequent treatment. This is a report of continuous video-EEG monitoring. High definition digital video and digital EEG were recorded continuously with a [employer] EEG acquisition system. This was a 32 [...] rate and rhythm. Daily Video-EEG Description: Epoch 3: 01/27/2021 11:01:59 AM - 01/28/2021 11:01:59 AM The interictal EEG was as described above. Photic strobe stimulation was performed and elicited no abnormalities. There was a clinical event recorded. Event #9 occurred at 2:01 PM on 01/27. During the photic strobe stimulation, the patient reported she had unusual feeling. She could answer the questions slowly and follow the commands correctly. There was no significant EEG change beyond EMG and movement artifact. Interpretation: No seizures were captured during the recording. The noted typical event did not have EEG correlate. The interictal EEG was normal awake, drowsy, and asleep. By signing this report, the attending Electroencephalographer certifies that he/she personally reviewed the electrodiagnostics study and has edited this report to fully conform with his/her intent. Signing Attending: Rodrick Elizabeth MD PhD TENDER TENDER TENDER * Taryn Archer NP - 01/28/2021 8:05 AM CST Neurology Daily Progress Note Subjective Chief complaint of seizure. Interval History: She had multiple typical events with stutter, and body movements. She was tearfulwith once episode. Current Facility-Administered Medications Medication Dose Route Frequency Provider Last Rate Last Admin ??? acetaminophen (TYLENOL) tablet 650 mg 650 mg oral Q6H PRN Taryn Archer NP 650 mg at 01/27/21 2350 ??? aspirin enteric coated tablet 81 mg 81 mg oral Daily Taryn Archer NP 81 mg at ??? dextrose (GLUTOSE) 40 % gel 15 g 15 g oral Q15 Min PRN Taryn Archer NP Or ??? dextrose (D10W) 10% bolus 250 mL 250 mL intravenous Q15 Min PRN Taryn Archer NP ??? diphenhydrAMINE (BENADRYL) tab/cap 25 mg 25 mg oral QID PRN Taryn Archer NP 25 mg at 01/26/21 2311 ??? glimepiride (AMARYL) tablet 2 mg 2 mg oral BID AC (bkfst, dinner) Taryn Archer NP 1 mgat 01/27/21 1723 ??? glucagon injection 1 mg 1 mg intramuscular Q30 Min PRN Taryn Archer NP ??? hydroCHLOROthiazide (HYDRODIURIL) tablet 12.5 mg 12.5 mg oral Daily Taryn Archer NP 12.5 mg at 01/27/21 0912 ??? icosapent ethyL (VASCEPA) 0.5 gram capsule 2 g 2 g oral BID with meals (bkfst, dinner) Taryn Archer NP 2 g at 01/27/21 1723 ??? insulin glargine (LANTUS) injection 51 Units 51 Units subcutaneous Nightly Taryn Archer NP 51 Units at 01/27/212111 ??? insulin lispro (HumaLOG, ADMELOG) injection 1-2 Units 1-2 Units subcutaneous TID with meals Taryn Archer NP ??? losartan (COZAAR) tablet 100 mg 100 mg oral Daily Taryn Archer NP 100 mg at 01/27/21911 ??? metFORMIN XR (GLUCOPHAGE XR) tablet 500 mg 500 mg oral Daily with breakfast Taryn Archer NP 500 mg at 01/27/21911 ??? rosuvastatin (CRESTOR) tablet 10 mg 10 mg oral Nightly Taryn Archer NP 10 mg at 01/27/212110 ??? sertraline (ZOLOFT) tablet 100 mg 100 mg oral Daily Taryn Archer NP 100 mg at ??? sodium chloride 0.9% flush 0.5-20 mL 0.5-20 mL intra-catheter Q8H LEATHA Taryn Archer NP 10 mL at 01/27/212111 ??? sodium chloride 0.9% flush 0.5-20 mL 0.5-20 mL intra-catheter PRN Taryn Archer NP Objective Vitals: 24hr Min/Max: Temp Min: 36.4 ??C (97.5 ??F) Max: 36.6 ??C (97.9 ??F) Pulse Min: 92 Max: 98 BP Min: 148/86 Max: 150/82 Resp Min: 16 Max: 19 SpO2 Min: 98 % Max: 100 % Most Recent: Vitals: 01/28/21 0005 BP: 148/86 Pulse: 92 Resp: 19 Temp: 36.4 ??C (97.5 ??F) SpO2: 98% Physical Exam Constitutional: Comfortable and mood appropriate. Neurologic: Mental status- Alert and oriented x 4. Language- Fluent speech. Follows commands. Cranial nerves II-XII- Extraocular movements full without nystagmus. Face is symmetric with normal strength. Motor- strength is 5/5 throughout. No drift. Fine finger movements are good. Sensation- intact to light touch. I/O last 2 completed shifts: In: 1200 [P.O.:1200] Out: - No intake/output data recorded. Lab/Radiology/Diagnostic Review: Recent Results (from the past 24 hour(s)) POCT glucose Collection Time: 01/27/21 11:25 AM Result Value Ref Range Glucose, POC 123 70 - 199 mg/dL POCT glucose Collection Time: 01/27/21 3:58 PM Result Value Ref Range Glucose, POC 92 70 - 199 mg/dL POCT glucose Collection Time: 01/27/21 8:05 PM Result Value Ref Range Glucose, POC 214 (H) 70 - 199 mg/dL POCT glucose Collection Time: 01/27/21 11:54 PM Result Value Ref Range Glucose, POC 82 70 - 199 mg/dL POCT glucose Collection Time: 01/28/21 1:58 AM Result Value Ref Range Glucose, POC 133 70 - 199 mg/dL Assessment/Plan Principal Problem: Unspecified abnormal involuntary movements This patient will be hooked up to vEEG. There will be suction, oxygen and seizure safety precautions as this patient is at risk for status. AEDs will be weaned as needed to provoke events. Provocative measures such as PS, sleep deprivation and biking will be preformed as needed. This patient will be a full code with a regular diet. This plan of care was discussed with the EMU team and the patient. The vEEG will be reviewed. Active Problems: Type 2 diabetes mellitus without complication, without long-term current use of insulin ([facility]) Home oral agent, SSI Hypertensive chronic kidney disease Continue home medications. Taryn Archer NP Cosigned by Rodrick Elizabeth MD PhD at 01/28/2021 6:01 PM SILO TENDER TENDER TENDER Associated attestation - Rodrick Elizabeth MD PhD - 01/28/2021 6:01 PM SILO TENDER I have seen and examined the patient on 01/28/21 in conjunction with the non- physician provider. The patient is a 35 YO RHF with multiple event types. 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 She recently saw Dr. Pérez who had dystonia, tics, and functional movement disorder on the differential. I personally reviewed the Video/EEG tracing and video, which revealed a normal interictal study andfour events with no EEG correlate. See separate EEG report. We discussed that we have yet to capture her most clinically severe event type with loss of consciousness including once with bladder incontinence. This event type has only ever happened with sleep or shortly after waking up from sleep. She noted that her first event this admission may have been triggered by opening the shades and exposing her to bright light as bright, flashing, or flickering lights were mentioned as triggers. I discussed the following plan with the patient. Diagnosis: Spells R56.9 1. Video/EEG for characterization and to guide subsequent treatment. Capturing typical clinical events. Await all event types. 2. Off LEV 3. S/p photic stimulation as a provocative procedure which was successful in eliciting a spell. 4. photic stimulation as a provocative procedure again today to try to elicit seizures/spells. 5. S/p sleep deprivation as a provocative procedure last night to try to elicit seizures/spells. Patient told to go to sleep no earlier than 8 PM and sleep for a long time as her uncaptured events all came out of sleep. 6. exercise bike multiple times per day (physical exhaustion) as a provocative procedure today to try to elicit seizures/spells * Day, Rodrick Cifuentes MD PhD - 01/27/2021 1:15 PM CST Video-EEG Daily Epoch Report Patient Name: Emma Figueroa [facility] Medical Record Number (MRN): [id number] [facility] Record: [id number] Date of (): 1985 Start Time: 01/26/2021 11:01:59 AM End Time: 01/27/2021 11:01:59 AM Introduction: Ms. Figueroa is a 35 y.o. female with a history of CKD, Diabetes mellitus, polycystic kidney disease, HTN, and anxiety, who presented with events described as stuttering with eyes rolling backwards, feeling dizzy and disoriented, difficult speech, facial changes with her face looking, and difficult walking with her leg locking up , concerning for seizures. Video-EEG was performed to characterize the events and guide subsequent treatment. This is a report of continuous video-EEG monitoring. High definition digital video and digital EEG were recorded continuously with a [employer] EEG acquisition system. This was a 32 [...] with light and deep sleep stages. Hyperventilation and photic strobe stimulation were not performed. There were no focal, lateralized or epileptiform abnormalities. The EKG showed a normal rate and rhythm. Daily Video-EEG Description: Epoch 2: 01/26/2021 11:01:59 AM - 01/27/2021 11:01:59 AM The interictal EEG was as described above. There were four clinical events recorded. Event #5 occurred at 11:18 AM on 01/26. The patient reported she had headache. Later, she was tearful, had bilateral upper extremity extension, and said no . She could answer the questions slowly and follow the commands correctly. There was no significant EEG change beyond EMG and movement artifact. Event #6 occurred at 6:13 PM on 01/26. The patient had right upper extremity/bilateral upper extremity extension and body jerking movement. She could answer the questions slowly and follow the commandscorrectly. There was no significant EEG change beyond EMG and movement artifact. Event #7 occurred at 6:42 PM on 01/26. The patient reported she had right head hurting and suffering.She could answer the questions slowly and follow the commands correctly. There was no significant EEG change beyond EMG and movement artifact. Event #8 occurred at 8:07 AM on 01/27. The patient reported she had the feeling of weird . She could answer the questions slowly and follow the commands correctly. There was no significant EEG changebeyond EMG and movement artifact. Interpretation: No seizures were captured during the recording. The noted typical events did not have EEG correlate. The interictal EEG was normal awake, drowsy, and asleep. By signing this report, the attending Electroencephalographer certifies that he/she personally reviewed the electrodiagnostics study and has edited this report to fully conform with his/her intent. Signing Attending: Rodrick Elizabeth MD PhD TENDER TENDER * Taryn Archer NP - 01/27/2021 8:16 AM CST Neurology Daily Progress Note Subjective Chief complaint of seizure. Interval History: She had multiple typical events with arm evolvement and alteration in speaking. Her LEV was stopped. Current Facility-Administered Medications Medication Dose Route Frequency Provider Last Rate Last Admin ??? acetaminophen (TYLENOL) tablet 650 mg 650 mg oral Q6H PRN Taryn Archer NP 650 mg at 01/26/212114 ??? aspirin enteric coated tablet 81 mg 81 mg oral Daily Taryn Archer NP 81 mg at 803 ??? dextrose (GLUTOSE) 40 % gel 15 g 15 g oral Q15 Min PRN Taryn Archer NP Or ??? dextrose (D10W) 10% bolus 250 mL 250 mL intravenous Q15 Min PRN Taryn Archer NP ??? diphenhydrAMINE (BENADRYL) tab/cap 25 mg 25 mg oral QID PRN Taryn Archer NP 25 mg at 01/26/21 2311 ??? glimepiride (AMARYL) tablet 2 mg 2 mg oral BID AC (bkfst, dinner) Taryn Archer NP 2 mg at 01/26/21 1729 ??? glucagon injection 1 mg 1 mg intramuscular Q30 Min PRN Taryn Archer NP ??? hydroCHLOROthiazide (HYDRODIURIL) tablet 12.5 mg 12.5 mg oral Daily Taryn Archer NP 12.5 mg at 01/26/21 0803 ??? icosapent ethyL (VASCEPA) 0.5 gram capsule 2 g 2 g oral BID with meals (bkfst, dinner) Taryn Archer NP 2 g at 01/26/21 1729 ??? insulin glargine (LANTUS) injection 51 Units 51 Units subcutaneous Nightly Taryn Archer NP 51 Units at 01/26/212105 ??? insulin lispro (HumaLOG, ADMELOG) injection 1-2 Units 1-2 Units subcutaneous TID with meals Taryn Archer NP ??? losartan (COZAAR) tablet 100 mg 100 mg oral Daily Taryn Archer NP 100 mg at 01/26/21 08 ??? metFORMIN XR (GLUCOPHAGE XR) tablet 500 mg 500 mg oral Daily with breakfast Taryn Archer NP 500 mg at 01/26/21 08 ??? rosuvastatin (CRESTOR) tablet 10 mg 10 mg oral Nightly Taryn Archer NP 10 mg at 01/26/212105 ??? sertraline (ZOLOFT) tablet 100 mg 100 mg oral Daily Taryn Archer NP 100 mg at 3 ??? sodium chloride 0.9% flush 0.5-20 mL 0.5-20 mL intra-catheter Q8H LEATHA Taryn Archer NP 10 mL at 01/26/212109 ??? sodium chloride 0.9% flush 0.5-20 mL 0.5-20 mL intra-catheter PRN Taryn Archer NP Objective Vitals: 24hr Min/Max: Temp Min: 36.5 ??C (97.7 ??F) Max: 36.8 ??C (98.2 ??F) Pulse Min: 84 Max: 114 BP Min: 134/79 Max: 137/91 Resp Min: 18 Max: 18 SpO2 Min: 97 % Max: 100 % Most Recent: Vitals: 01/27/21 0756 BP: 137/91 Pulse: 93 Resp: 18 Temp: 36.6 ??C (97.9 ??F) SpO2: 100% Physical Exam Constitutional: Comfortable and mood appropriate. Neurologic: Mental status- Alert and oriented x 4. Language- Fluent speech. Follows commands. Cranial nerves II-XII- Extraocular movements full without nystagmus. Face is symmetric with normal strength. No dysarthria. Motor- strength is 5/5 throughout. No drift. Fine finger movements are good. Sensation- intact to light touch. Coordination- Obomkr-jz-[id number] normal. Gait and arm swing normal. I/O last 2 completed shifts: In: 240 [P.O.:240] Out: 0 No intake/output data recorded. Lab/Radiology/Diagnostic Review: Recent Results (from the past 24 hour(s)) POCT glucose Collection Time: 01/26/21 10:57 AM Result Value Ref Range Glucose, POC 134 70 - 199 mg/dL POCT glucose Collection Time: 01/26/21 4:26 PM Result Value Ref Range Glucose, POC 165 70 - 199 mg/dL POCT glucose Collection Time: 01/26/21 9:00 PM Result Value Ref Range Glucose, POC 109 70 - 199 mg/dL Glucose comment 1 RN Notified POCT glucose Collection Time: 01/27/21 1:48 AM Result Value Ref Range Glucose, POC 93 70 - 199 mg/dL POCT glucose Collection Time: 01/27/21 7:58 AM Result Value Ref Range Glucose, POC 107 70 - 199 mg/dL Assessment/Plan Principal Problem: Unspecified abnormal involuntary movements This patient will be hooked up to vEEG. There will be suction, oxygen and seizure safety precautions as this patient is at risk for status. AEDs will be weaned as needed to provoke events. Provocative measures such as PS, sleep deprivation and biking will be preformed as needed. This patient will be a full code with a regular diet. This plan of care was discussed with the EMU team and the patient. The vEEG will be reviewed. Active Problems: Type 2 diabetes mellitus without complication, without long-term current use of insulin ([facility]) Home oral agent, SSI Hypertensive chronic kidney disease Continue home medications. Taryn Archer NP Cosigned by Rodrick Elizabeth MD PhD at 01/28/2021 6:02 PM SILO TENDER TENDER TENDER Associated attestation - Rodrick Elizabeth MD PhD - 01/28/2021 6:02 PM SILO TENDER I have seen and examined the patient on 01/27/21 in conjunction with the non- physician provider. The patient is a 35 YO RHF with multiple event types. 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 She recently saw Dr. Pérez who had dystonia, tics, and functional movement disorder on the differential. I personally reviewed the Video/EEG tracing and video, which revealed a normal interictal study andfour events with no EEG correlate. See separate EEG report. We discussed that we have yet to capture her most clinically severe event type with loss of consciousness including once with bladder incontinence. This event type has only ever happened with sleep or shortly after waking up from sleep. She noted that her first event this admission may have been triggered by opening the shades and exposing her to bright light as bright, flashing, or flickering lights were mentioned as triggers. I discussed the following plan with the patient. Diagnosis: Spells R56.9 1. Video/EEG for characterization and to guide subsequent treatment. Capturing typical clinical events. Await all event types. 2. Off LEV 3. photic stimulation as a provocative procedure today to try to elicit seizures/spells 4. Naps today then sleep deprivation as a provocative procedure tonight to try to elicit seizures/spells * Rodrick Elizabeth MD PhD - 01/26/2021 1:34 PM CST Video-EEG Daily Epoch Report Patient Name: Emma Figueroa [facility] Medical Record Number (MRN): [id number] [facility] Record: [id number] Date of (): 1985 Start Time: 01/25/2021 11:01:59 AM End Time: 01/26/2021 11:01:59 AM Introduction: Ms. Figueroa is a 35 y.o. female with a history of CKD, Diabetes mellitus, polycystic kidney disease, HTN, and anxiety, who presented with events described as stuttering with eyes rolling backwards, feeling dizzy and disoriented, difficult speech, facial changes with her face looking, and difficult walking with her leg locking up , concerning for seizures. Video-EEG was performed to characterize the events and guide subsequent treatment. This is a report of continuous video-EEG monitoring. High definition digital video and digital EEG were recorded continuously with a [employer] EEG acquisition system. This was a 32 [...] with light and deep sleep stages. Hyperventilation and photic strobe stimulation were not performed. There were no focal, lateralized or epileptiform [...] by worsened difficulty speaking and worsened dystonic- andspastic-appearing movements, most noticeable in her left arm, [...] seizures were captured during the recording. The noted typical events did not have EEG correlate. The interictal EEG was normal awake, drowsy, and asleep. By signing this report, the attending Electroencephalographer certifies that he/she personally reviewed the electrodiagnostics study and has edited this report to fully conform with his/her intent. Signing Attending: Rodrick Elizabeth MD PhD TENDER TENDER * Taryn Archer NP - 01/26/2021 8:36 AM CST Neurology Daily Progress Note Subjective Chief complaint of seizure. Interval History: She had multiple typical events with difficulty speaking and body movements. Her LEV was stopped. Current Facility-Administered Medications Medication Dose Route Frequency Provider Last Rate Last Admin ??? acetaminophen (TYLENOL) tablet 650 mg 650 mg oral Q6H PRN Taryn Archer NP 650 mg at 01/25/21 1254 ??? aspirin enteric coated tablet 81 mg 81 mg oral Daily Taryn Archer NP 81 mg at 803 ??? dextrose (GLUTOSE) 40 % gel 15 g 15 g oral Q15 Min PRN Taryn Archer NP Or ??? dextrose (D10W) 10% bolus 250 mL 250 mL intravenous Q15 Min PRN Taryn Archer NP ??? diphenhydrAMINE (BENADRYL) tab/cap 25 mg 25 mg oral QID PRN Taryn Archer NP 25 mg at 01/25/21 1600 ??? glimepiride (AMARYL) tablet 2 mg 2 mg oral BID AC (bkfst, dinner) Taryn Archer NP 2 mgat 01/26/21 0803 ??? glucagon injection 1 mg 1 mg intramuscular Q30 Min PRN Taryn Archer NP ??? hydroCHLOROthiazide (HYDRODIURIL) tablet 12.5 mg 12.5 mg oral Daily Taryn Archer NP 12.5 mg at 01/26/21802 ??? icosapent ethyL (VASCEPA) 0.5 gram capsule 2 g 2 g oral BID with meals (bkfst, dinner) Taryn Archer NP 2 g at 01/26/21802 ??? insulin glargine (LANTUS) injection 51 Units 51 Units subcutaneous Nightly Taryn Archer NP 51 Units at 01/25/212223 ??? insulin lispro (HumaLOG, ADMELOG) injection 1-2 Units 1-2 Units subcutaneous TID with meals Taryn Archer NP ??? losartan (COZAAR) tablet 100 mg 100 mg oral Daily Taryn Archer NP 100 mg at 01/26/21802 ??? metFORMIN XR (GLUCOPHAGE XR) tablet 500 mg 500 mg oral Daily with breakfast Taryn Archer NP 500 mg at 01/26/21802 ??? rosuvastatin (CRESTOR) tablet 10 mg 10 mg oral Nightly Taryn Archer NP 10 mg at 01/25/212223 ??? sertraline (ZOLOFT) tablet 100 mg 100 mg oral Daily Taryn Archer NP 100 mg at ??? sodium chloride 0.9% flush 0.5-20 mL 0.5-20 mL intra-catheter Q8H LEATHA Taryn Archer NP 10 mL at 01/26/21802 ??? sodium chloride 0.9% flush 0.5-20 mL 0.5-20 mL intra-catheter PRN Taryn Archer NP Objective Vitals: 24hr Min/Max: Temp Min: 36.5 ??C (97.7 ??F) Max: 36.9 ??C (98.4 ??F) Pulse Min: 89 Max: 100 BP Min: 127/76 Max: 172/107 Resp Min: 18 Max: 18 SpO2 Min: 95 % Max: 100 % Most Recent: Vitals: 01/26/21 0757 BP: 147/80 Pulse: 93 Resp: 18 Temp: 36.5 ??C (97.7 ??F) SpO2: 98% Physical Exam Constitutional: Comfortable and mood appropriate. Neurologic: Mental status- Alert and oriented x 4. Language- Fluent speech. Follows commands. Cranial nerves II-XII- Extraocular movements full without nystagmus. Face is symmetric with normal strength. No dysarthria. Motor- strength is 5/5 throughout. No drift. Fine finger movements are good. Sensation- intact to light touch. Coordination- Ahrgjy-jb-htoy normal. Gait and arm swing normal. I/O last 2 completed shifts: In: 240 [P.O.:240] Out: - No intake/output data recorded. Lab/Radiology/Diagnostic Review: Recent Results (from the past 24 hour(s)) POCT glucose Collection Time: 01/25/21 12:08 PM Result Value Ref Range Glucose, POC 96 70 - 199 mg/dL POCT glucose Collection Time: 01/25/21 4:36 PM Result Value Ref Range Glucose, POC 97 70 - 199 mg/dL POCT glucose Collection Time: 01/26/21 7:56 AM Result Value Ref Range Glucose, POC 116 70 - 199 mg/dL Assessment/Plan Principal Problem: Unspecified abnormal involuntary movements Active Problems: Type 2 diabetes mellitus without complication, without long-term current use of insulin ([facility]) Hypertensive chronic kidney disease This patient will be hooked up to vEEG. There will be suction, oxygen and seizure safety precautions as this patient is at risk for status. AEDs will be weaned as needed to provoke events. Provocative measures such as PS, sleep deprivation and biking will be preformed as needed. This patient will be a full code with a regular diet. This plan of care was discussed with the EMU team and the patient. The vEEG will be reviewed. Taryn Archer NP Cosigned by Rodrick Elizabeth MD PhD at 01/26/2021 4:23 PM SILO TENDER TENDER TENDER Associated attestation - Rodrick Elizabeth, MD PhD - 01/26/2021 4:23 PM SILO TENDER I have seen and examined the patient on 01/26/21 in conjunction with the non- physician provider. The patient is a 35 YO RHF with multiple event types. 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 She recently saw Dr. Pérez who had dystonia, tics, and functional movement disorder on the differential. I personally reviewed the Video/EEG tracing and video, which revealed a normal interictal study andfour events with no EEG correlate. See separate EEG report. Today she noted that we had yet to capture her most clinically severe event type with loss of consciousness including once with bladder incontinence. This event type has only ever happened with sleepor shortly after waking up from sleep. She noted that her first event yesterday may have been triggered by opening the shades and exposing her to bright light as bright, flashing, or flickering lights were mentioned as triggers, but not for the event type yet to be captured. I discussed the following plan with the patient. Diagnosis: Spells R56.9 1. Video/EEG for characterization and to guide subsequent treatment. Capturing typical clinical events. Await all event types. 2. Off LEV * [facility] - 01/25/2021 1:30 PM CST Patient's home supplies of glimepiride and icosapent ethyl have been approved by the pharmacy. Medications can be administered to the patient TENDER * Gudelia Caba RN - 01/25/2021 12:05 PM CST CM Initial Assessment Interview Note Information Obtained From: Patient (01/25/21 1205) Admission Source: Non-health care facility point of origin Impression: 35 y.o. female admitted for seizure monitoring. Plan Includes: CM to follow for further discharge planning. Will submit referrals as needed in accordance with PT/OT recommendations. Primary Source of Transportation: [employer] Health Insurance Coverage: [employer] Prescription Coverage: Yes Pharmacy: [facility] in [place] Primary Care Provider: Andrei Clark MD Prior to Admission: Primary Caregiver: Family Support System: Children Support system contact info (name, phone, availablity): Kiesha (daughter) [phone] Home Care Services: No Durable Medical Equipment: Walker (no wheels) Living Arrangements: Children Type of Residence: Private residence Steps in home? : No steps inside or outside (01/25/211204) Potential discharge needs include: Physical therapy, Occupational therapy, (01/25/211204) Dialysis: Dialysis: No (01/25/211204) Behavioral Health Services: Behavioral Health Services: No (01/25/211204) Patient expects to be Discharged to: Private residence, (01/25/211204) Additional Information: Patient has adequate family support. Family to provide transportation. Kidshelp out at home when needed (ages 16&18.) No further needs at this time. Patient's Identified Problem/Goal Problem: Ensure acute medical needs are met and that patient has a safe discharge plan. Goal: Secure a discharge plan that patient/family are agreeable with and ensure patient has continuum of care. Case management will follow for discharge planning and send referrals as needed. Goals include: To assure continuity of care, To maximize coping skills, To assure patient is in a safe environment and To assure access to community resources. Plan includes: 1. Collaboration with patient, MD, direct care nurse, Steel Manager, Nurse Coordinator and other members of the health care team to assure needed interventions completed. 2. Return patient to optimal level of self-care post discharge. 3. Head Of Music will follow for Discharge Planning - interventions as needed 4. Anticipated level of care at discharge 5. Planned Discharge Disposition Based on a comprehensive family assessment, assistance with instrumental activities of daily livingafter discharge will be provided by daughter. Through the course of our work I determined that the joseter possesses the skill and ability to provide and monitor the care of the patient when he or she returns home. daughter has the capacity to provide/monitor/arrange for the care of the patient. Finally, we determined that daughter has the knowledge of available resources and that combining them with their existing resources will suffice tosustain and care for the patient when he or she returns home. The treatment team is aware of this information. All are in agreement with the aftercare plan. Gudelia A. Gertrudis, RN TENDER documented in this encounter H&P Notes * Taryn Archer NP - 01/25/2021 8:47 AM CST History and Physical Subjective Patient is a 35 y.o. female with chief complaint of seizures. HPI: 35 YO female with a history of CKD stage 2, Diabetes mellitus, polycystic kidney disease, HTN, anxiety and events concerning for seizure. She is a direct to monitoring patient of Dr. Andrei Clark (PCP). She reports that her seizures/episdoes are daily, but present differently every day. Her events started a few years ago. But, her more sever events started about 2 MOS ago. Family reported events of stuttering with eyes rolling backwards. She has events of feeling dizzy and disoriented. The event can last from 2-3 minutes. She can have difficulty with speaking. Her Son has noted facial changes with her face looking She can have events of difficulty walking with her leg locking up . She does not have a LOC or loss of awareness during this event. Home AED: LEV 750 mg BID She was previously seen by Dr. Esau Miles, for eval of possible idiopathic intracranial HTN. 02/26/19he noted placement of ventricular shunt was not warranted. She also was evaluated by [facility] ophthalmology (due to visual changes) in 2019 and the note reflected that it was unclear to what extent visual complaints could be attributed to IIH. She was seen by Dr. Giorgi Pérez 12/30/20 She is having episdes at least daily. Triggers: stress and actvity. She was the product of a normal and reached all her developmental milestones in a normal timeframe. She had some reading comprehension issues in school. She got her GED. She has no history of meningits. She has a family history of a mother with seizures. Past Medical History: Diagnosis Date ??? CKD [...] INJECTION, DIAGNOSTIC N/A 02/11/2019 ??? TUBAL LIGATION HOME MEDICATIONS : icosapent ethyL (VASCEPA) 1 gram capsule metFORMIN XR (GLUCOPHAGE XR) 500 mg 24 hr tablet amLODIPine (NORVASC) 5 mg tablet aspirin 81 mg enteric coated tablet dulaglutide (TRULICITY) 1.5 mg/0.5 mL pen injector fluticasone (FLONASE) 50 mcg/actuation nasal spray furosemide (LASIX) 20 mg tablet glimepiride (AMARYL) 1 mg tablet hydroCHLOROthiazide (HYDRODIURIL) 12.5 mg tablet HYDROcodone-acetaminophen (NORCO) 5-325 mg per tablet insulin degludec (TRESIBA) 200 unit/mL (3 mL) insulin pen levETIRAcetam (KEPPRA) 750 mg tablet losartan (COZAAR) 100 mg tablet rosuvastatin (CRESTOR) 10 mg tablet sertraline (ZOLOFT) 100 mg tablet acetaZOLAMIDE (DIAMOX) 250 mg tablet cephalexin (KEFLEX) 500 mg capsule DOXYCYCLINE 100 mg tablet metFORMIN (GLUCOPHAGE) 500 mg tablet metoprolol (LOPRESSOR) 25 mg tablet POTASSIUM CHLORIDE ER 10 mEq CR tablet propranolol (INDERAL) 20 mg tablet Current Facility-Administered Medications Medication Dose Route Frequency Provider Last Rate Last Admin ??? acetaminophen (TYLENOL) tablet 650 mg 650 mg oral Q6H PRN Taryn Archer NP 650 mg at 01/25/21 1254 ??? [START ON 01/26/2021] aspirin enteric coated tablet 81 mg 81 mg oral Daily Taryn Archer NP ??? dextrose (GLUTOSE) 40 % gel 15 g 15 g oral Q15 Min PRN Taryn Archer NP Or ??? dextrose (D10W) 10% bolus 250 mL 250 mL intravenous Q15 Min PRN Taryn Archer NP ??? diphenhydrAMINE (BENADRYL) tab/cap 25 mg 25 mg oral QID PRN Taryn Archer NP ??? glimepiride (AMARYL) tablet 2 mg 2 mg oral BID AC (bkfst, dinner) Taryn Archer NP ??? glucagon injection 1 mg 1 mg intramuscular Q30 Min PRN Taryn Archer NP ??? [START ON 01/26/2021] hydroCHLOROthiazide (HYDRODIURIL) tablet 12.5 mg 12.5 mg oral Daily Taryn Archer NP ??? icosapent ethyL (VASCEPA) 0.5 gram capsule 2 g 2 g oral BID with meals (bkfst, dinner) Taryn Archer NP ??? insulin glargine (LANTUS) injection 51 Units 51 Units subcutaneous Nightly Taryn Archer NP ??? insulin lispro (HumaLOG, ADMELOG) injection 1-2 Units 1-2 Units subcutaneous TID with meals Taryn Archer NP ??? [START ON 01/26/2021] losartan (COZAAR) tablet 100 mg 100 mg oral Daily Taryn Archer NP ??? [START ON 01/26/2021] metFORMIN XR (GLUCOPHAGE XR) tablet 500 mg 500 mg oral Daily with breakfastDaTaryn govea NP ??? rosuvastatin (CRESTOR) tablet 10 mg 10 mg oral Nightly Taryn Archer NP ??? [START ON 01/26/2021] sertraline (ZOLOFT) tablet 100 mg 100 mg oral Daily Taryn Archer NP ??? sodium chloride 0.9% flush 0.5-20 mL 0.5-20 mL intra-catheter Q8H LEATHA Taryn Archer NP 10 mL at 01/25/21 1208 ??? sodium chloride 0.9% flush 0.5-20 mL 0.5-20 mL intra-catheter PRN Taryn Archer NP Allergies Allergen Reactions ??? Metoclopramide Anxiety ??? Ondansetron Anxiety ??? Phenergan [Promethazine] Anxiety ??? Prochlorperazine Anxiety Social History Socioeconomic History ??? Marital status: Single Spouse name: Not on file ??? Number of children: Not on file ??? Years of education: Not on file ??? Highest education level: Not on file Occupational History ??? Not on file Tobacco Use ??? Smoking status: Former Smoker Types: Cigarettes Quit date: 06/01/2019 Years since quittin.6 ??? Smokeless tobacco: Never Used Substance and Sexual Activity ??? Alcohol use: Never ??? Drug use: Never ??? Sexual activity: Not on file Other Topics Concern ??? Not on file Social History Narrative ??? Not on file Social Determinants of Health Financial Resource Strain: ??? Difficulty of Paying Living Expenses: Food Insecurity: ??? Worried About Running Out of Food in the Last Year: ??? Ran Out of Food in the Last Year: Transportation Needs: ??? Lack of Transportation (Medical): ??? Lack of Transportation (Non-Medical): Physical Activity: ??? Days of Exercise per Week: ??? Minutes of Exercise per Session: Stress: ??? Feeling of Stress : Social Connections: ??? Frequency of Communication with Friends and Family: ??? Frequency of Social Gatherings with Friends and Family: ??? Attends Sabianism Services: ??? Active Member of Clubs or Organizations: ??? Attends Club or Organization Meetings: ??? Marital Status: Intimate Partner Violence: ??? Fear of Current or Ex-Partner: ??? Emotionally Abused: ??? Physically Abused: ??? Sexually Abused: Family History Problem Relation Age of Onset ??? Hypertension Mother ??? Seizures Mother ??? Hypertension Father ??? Diabetes Father ??? Seizures Sister Review of Systems Cardiovascular: Positive for chest pain and leg swelling. Gastrointestinal: Positive for constipation. Neurological: Positive for headaches. Psychiatric/Behavioral: Positive for sleep disturbance. The patient is nervous/anxious. Objective Vitals: Arrival Vitals Temp Pulse Resp BP SpO2 Temp src Heart Rate Source Patient Position BP Location FiO2 (%) 24 hr Min/Max: Temp Min: 36.7 ??C (98.1 ??F) Max: 36.7 ??C (98.1 ??F) Pulse Min: 100 Max: 100 BP Min: 172/107 Max: 172/107 Resp Min: 18 Max: 18 SpO2 Min: 95 % Max: 95 % Most Recent : Vitals: 01/25/21 0900 BP: (!) 172/107 Pulse: 100 Resp: 18 Temp: 36.7 ??C (98.1 ??F) SpO2: 95% Height: 162.6 cm (5' 4 ) Weight: 95.7 kg (211 lb) BMI (Calculated): 36.2 No intake/output data recorded. I/O this shift: In: 240 [P.O.:240] Out: - Physical Exam PHYSICAL General: Well developed, well nourished patient comfortable in no acute distress. HEENT: Normocephalic and atraumatic. No scleral icterus or conjunctival pallor. Mucous membranes moist. Oropharynx clear. Pulmonary: Nonlabored respirations Cardiovascular: Regular rate Skin: Warm, well perfused; no apparent rashes or bruises. Constitutional: Comfortable and mood appropriate. Neurologic: Mental status- Alert and oriented x 4. Speech abnormal. Language- Pauses mid sentence between words. Follows commands. Cranial nerves II-XII- Extraocular movements full without nystagmus.Face is with normal strength. No dysarthria. Motor- strength is 5/5 at times, throughout. Fine finger movements are good. Tremor at rest Sensation- intact to light touch. Radiology Review: Cardiac Catheterization Result Date: 01/22/2021 Narrative: Patient Name: EMMA FIGUEROA MR#: [id number] [place] [facility] [place] [facility] [place] 1985 Age: 35 Sex: Female ADM/SER Dt: 01/22/21Disch Dt: LOC: H.CATH Procedure Report Jose Liu MD Signed Report Created: 01/22/21 1025 Service Date/Time: 01/22/21 1024 Cardiology Procedure Note Date of Procedure: 01/22/21 Pre-Proc. Dx/Indications: CP, abnormal stress and coronary CTA Post- Proc. Dx/Impression: Nonobstructive CAD, diastolic dysfunction Procedure Performed: LHC, coronaries Social Services Manager: Ester Anesthesia: Conscious sedation Complications: None Disposition of Case: Stable-to recovery Procedure Description/Outcome: INDICATIONS: Patient is a 35-year-old female with a past medical history of fibromyalgia, polycystic kidney disease, pituitary tumor, kidneytumor, HTN, DM who presents for scheduled outpatient left heart catheterization. Pt underwent stress test and coronary CTA which were abnormal. Cardiac catheterization was arranged to evaluate coronary anatomy. COUNSELING: The risks and benefits of the procedure were explained in detail. Informed co nsent was obtained and charted. PROCEDURE: 1. LHC 2. Selective coronary angiogram 3. Conscious sedation (9:42-9:59) CARCASS TRIMMER: Jose Norman MD DESCRIPTION OF PROCEDURE: The patient was brought tot Cardiac Catheterization Laboratory where both groins were prepped and draped in a sterile fashion. After local anesthesia was obtained with 1% Xylocaine, the R femoral artery was entered percutaneously and a 5 Fr sheath was inserted over aguidewire using the modified Seldinger technique. Diagnostic left and right coronary angiography were performed using 5 Fr JL 4 and a 5 Fr JR 4 catheters respectively. A 5 Fr pigtail catheter was advanced to the left ventrickle. Pressures were recorded in the left ventrickle and aorta. No LV gram was done due to kidney dysfunction. Then all catheters were removed and pt was transferred to the recovery in stable condition. Complications: none contrast: 30 cc FINDINGS: 1. Hemodynamic data: LV pressure 144/18 , Aortic pressure 157/86 , LVEDP 18 . 2. Left main: Large, within normal limits [...] CAD. 2. Diastolic dysfunction (LVEDP 18 mmHg). PLAN: Continue medical management. <Electronically signed by Jose Norman MD> 01/22/21 1145 Assessment /Plan Principal Problem: Unspecified abnormal involuntary movements This patient is hooked up to vEEG. There will be suction, oxygen and seizure safety precautions as this patient is at risk for status. AEDs will be weaned as needed to provoke events. Provocative measures such as PS, sleep deprivation and biking will be preformed as needed. This patient will be a full code. This plan of care was discussed with the EMU team and the patient. The vEEG will be reviewed. Active Problems: Type 2 diabetes mellitus without complication, without long-term current use of insulin ([facility]) Home oral agents, with long acting insulin and SSI. Diabetic diet. Hypertensive chronic kidney disease Continue home medications Taryn Archer NP Cosigned by Rodrick Elizabeth MD PhD at 01/25/2021 8:24 PM SILO TENDER TENDER TENDER Associated attestation - Rodrick Elizabeth MD PhD - 01/25/2021 8:24 PM SILO TENDER I have seen and examined the patient on 01/25/21 in conjunction with the non- physician provider. The patient is a 35 YO RHF with multiple event types. 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 She recently saw Dr. Pérez who had dystonia, tics, and functional movement disorder on the differential. She had a typical event of right head tingling then movements locking up/spastic movements with difficulty speaking, but retained awareness and ability to write, when I met her with fellow Dr. Skinner on rounds today. Event button pressed. Will review as part of normal Video/EEG rounds. I discussed the following plan with the patient. Diagnosis: Spells R56.9 1. Video/EEG for characterization and to guide subsequent treatment 2. Discontinue LEV 750 mg bid now (took AM dose already) (1/2 dose for day). documented in this encounter Nursing Notes * Zurdo Villa RN - 01/27/2021 10:59 AM CST Pt c/o bleach smell in room after sales teacher cleaned; air turned on and a fan directed at pt alongwith door being left open; not due for Tylenol for increase in headache but will monitor for any improvement with increased ventilation. TENDER documented in this encounter Miscellaneous Notes * Plan of Myriam - Ruth Muniz RN - 01/31/2021 3:22 PM CDT Goals: Clinical Goals for the Shift: pt will remain safe during events Summary: Problem: Lack of Knowledge: Goal: Ability to state ways to decrease the risk of falls will improve Outcome: Progressing Problem: Safety: Goal: Will remain free from falls Outcome: Progressing Goal: Will remain free from injury from falls Outcome: Progressing Goal: Will remain free from falls and injury in home environment Outcome: Progressing Problem: Lack of Knowledge: Goal: Knowledge of disease or condition will improve Outcome: Progressing Goal: Knowledge of the prescribed therapeutic regimen will improve Outcome: Progressing * Plan of Myriam - Kita Barry - 01/31/2021 1:11 AM CST Goals: Problem: Safety: Goal: Will remain free from falls Outcome: Progressing Problem: Safety: Goal: Will remain free from injury from falls Outcome: Progressing Clinical Goals for the Shift: Maintain Safety, remain safe during events Summary: TENDER * Plan of Ruth Tarango RN - 01/30/2021 1:53 PM CST Goals: Clinical Goals for the Shift: remain safe during events Summary: Problem: Lack of Knowledge: Goal: Ability to state ways to decrease the risk of falls will improve Outcome: Progressing Problem: Safety: Goal: Will remain free from falls Outcome: Progressing Goal: Will remain free from injury from falls Outcome: Progressing Goal: Will remain free from falls and injury in home environment Outcome: Progressing Problem: Lack of Knowledge: Goal: Knowledge of disease or condition will improve Outcome: Progressing Goal: Knowledge of the prescribed therapeutic regimen will improve Outcome: Progressing Problem: Coping: Goal: Ability to adjust to condition or change in health will improve Outcome: Progressing Goal: Ability to identify appropriate support needs will improve Outcome: Progressing Goal: Level of anxiety will decrease Outcome: Progressing Goal: Ability to verbalize feelings about condition will improve Outcome: Progressing Problem: Health Behavior: Goal: Ability to manage health-related needs will improve Outcome: Progressing Goal: Compliance with prescribed medication regimen will improve Outcome: Progressing Problem: Medication: Goal: Risk for medication side effects will decrease Outcome: Progressing Problem: Physical Regulation: Goal: Complications related to the disease process, condition or treatment will be avoided or minimized Outcome: Progressing TENDER * Plan of Care - Diann Ayala RN - 01/29/2021 10:53 PM CST Goals: Clinical Goals for the Shift: elicit seizures, maintain safety Summary: Patient is progressing towards goals. TENDER * Plan of Care - Fernanda King RN - 01/29/2021 4:07 PM CST Goals: Clinical Goals for the Shift: elicit seizures, maintain safety Summary: TENDER * Plan of Myriam - Bernice Azar - 01/29/2021 3:07 AM CST Goals: Clinical Goals for the Shift: elicit seizures, maintain safety Summary: Problem: Lack of Knowledge: Goal: Ability to state ways to decrease the risk of falls will improve Outcome: Progressing Problem: Safety: Goal: Will remain free from falls Outcome: Progressing Goal: Will remain free from injury from falls Outcome: Progressing Goal: Will remain free from falls and injury in home environment Outcome: Progressing Problem: Lack of Knowledge: Goal: Knowledge of disease or condition will improve Outcome: Progressing Goal: Knowledge of the prescribed therapeutic regimen will improve Outcome: Progressing Problem: Coping: Goal: Ability to adjust to condition or change in health will improve Outcome: Progressing Goal: Ability to identify appropriate support needs will improve Outcome: Progressing Goal: Level of anxiety will decrease Outcome: Progressing Goal: Ability to verbalize feelings about condition will improve Outcome: Progressing Problem: Health Behavior: Goal: Ability to manage health-related needs will improve Outcome: Progressing Goal: Compliance with prescribed medication regimen will improve Outcome: Progressing Problem: Medication: Goal: Risk for medication side effects will decrease Outcome: Progressing Problem: Physical Regulation: Goal: Complications related to the disease process, condition or treatment will be avoided or minimized Outcome: Progressing Problem: Safety: Goal: Ability to remain free from injury will improve Outcome: Progressing Problem: Health Behavior: Goal: Understanding of discharge needs will improve Outcome: Progressing Bernice Azar TENDER * Hospital Course - Violeta, Mel Bowers MD - 01/28/2021 1:20 PM CST She was admitted under the care of Dr. Elizabeth. She was placed on seizure precautions and continuously monitored on Video EEG. Her anti-epileptic medications were changed as necessary to try to capture her events. Provocative procedures such as photic stimulation, hyperventilation, sleep deprivation, and physical exhaustion from riding an exercise bike were used as necessary to try to capture her events. Her typical clinical events were captured. There was no EEG correlate to these events. See Video EEG report for details. She was discharged to home in stable condition Discharge AEDs: None. Discontinue Keppra 750mg BID Discharge testing: none at this time, repeat Video/EEG may be required to characterize any persistent, worsening, or new events concerning for seizures Follow-up: with talk therapist, PCP, Dr. Pérez. Consider making an appointment with a new neurologist at her former neurologist's office. TENDER * Plan of Myriam - Zurdo Villa RN - 01/28/2021 12:40 PM CST Goals: Clinical Goals for the Shift: Maintain Safety, Sleep deprived Summary: TENDER * Plan of Kita Marc - 01/28/2021 12:01 AM CST Goals: Problem: Lack of Knowledge: Goal: Ability to state ways to decrease the risk of falls will improve Outcome: Progressing Problem: Safety: Goal: Will remain free from falls Outcome: Progressing Problem: Safety: Goal: Will remain free from injury from falls Outcome: Progressing Problem: Coping: Goal: Level of anxiety will decrease Outcome: Progressing Clinical Goals for the Shift: Maintain Safety, Sleep deprived Summary: TENDER * Plan of Myriam - Zurdo Villa RN - 01/27/2021 4:17 PM CST Goals: Clinical Goals for the Shift: Maintain Safety during ambulation and seizure episodes Summary: TENDER * Plan of Kita Marc - 01/26/2021 9:47 PM CST Goals: Problem: Lack of Knowledge: Goal: Ability to state ways to decrease the risk of falls will improve Outcome: Progressing Problem: Safety: Goal: Will remain free from falls Outcome: Progressing Clinical Goals for the Shift: Maintain Safety during ambulation and seizure episodes Summary: TENDER * Plan of Care - Coretta Hanley RN - 01/26/2021 7:49 AM CST Goals: Clinical Goals for the Shift: Elicit safe seizures Summary: Problem: Safety: Goal: Will remain free from falls Outcome: Progressing Goal: Will remain free from injury from falls Outcome: Progressing Goal: Will remain free from falls and injury in home environment Outcome: Progressing Problem: Coping: Goal: Ability to adjust to condition or change in health will improve Outcome: Progressing Goal: Ability to identify appropriate support needs will improve Outcome: Progressing Goal: Level of anxiety will decrease Outcome: Progressing Goal: Ability to verbalize feelings about condition will improve Outcome: Progressing Problem: Medication: Goal: Risk for medication side effects will decrease Outcome: Progressing TENDER * Plan of Myriam - Ene Stratton RN - 01/26/2021 1:05 AM CST Problem: Lack of Knowledge: Goal: Ability to state ways to decrease the risk of falls will improve Outcome: Progressing Problem: Safety: Goal: Will remain free from falls Outcome: Progressing Goal: Will remain free from injury from falls Outcome: Progressing Goal: Will remain free from falls and injury in home environment Outcome: Progressing Problem: Lack of Knowledge: Goal: Knowledge of disease or condition will improve Outcome: Progressing Goal: Knowledge of the prescribed therapeutic regimen will improve Outcome: Progressing Problem: Coping: Goal: Ability to adjust to condition or change in health will improve Outcome: Progressing Goal: Ability to identify appropriate support needs will improve Outcome: Progressing Goal: Level of anxiety will decrease Outcome: Progressing Goal: Ability to verbalize feelings about condition will improve Outcome: Progressing Problem: Health Behavior: Goal: Ability to manage health-related needs will improve Outcome: Progressing Goal: Compliance with prescribed medication regimen will improve Outcome: Progressing Problem: Medication: Goal: Risk for medication side effects will decrease Outcome: Progressing Problem: Physical Regulation: Goal: Complications related to the disease process, condition or treatment will be avoided or minimized Outcome: Progressing Problem: Safety: Goal: Ability to remain free from injury will improve Outcome: Progressing Goals: Summary: TENDER * Plan of Care - Coretta Hanley RN - 01/25/2021 9:20 AM CST Goals: Clinical Goals for the Shift: Elicit safe seizures Summary: Problem: Safety: Goal: Will remain free from falls Outcome: Progressing Goal: Will remain free from injury from falls Outcome: Progressing Goal: Will remain free from falls and injury in home environment Outcome: Progressing Problem: Coping: Goal: Ability to adjust to condition or change in health will improve Outcome: Progressing Goal: Ability to identify appropriate support needs will improve Outcome: Progressing Goal: Level of anxiety will decrease Outcome: Progressing Goal: Ability to verbalize feelings about condition will improve Outcome: Progressing Problem: Physical Regulation: Goal: Complications related to the disease process, condition or treatment will be avoided or minimized Outcome: Progressing TENDER documented in this encounter Plan of Treatment Not on file documented as of this encounter Procedures Procedure Name Priority Date/Time Associated Diagnosis Comments POCT GLUCOSE DEVICE Routine 01/31/2021 1 1:44 AM CDT POCT GLUCOSE DEVICE Routine 01/31/2021 7 :38 AM CDT POCT GLUCOSE DEVICE Routine 01/30/2021 8 :33 PM SILO TENDER POCT GLUCOSE DEVICE Routine 01/30/2021 4 :37 PM SILO TENDER POCT GLUCOSE DEVICE Routine 01/30/2021 1 1:47 AM SILO TENDER POCT GLUCOSE DEVICE Routine 01/30/2021 7 :33 AM SILO TENDER POCT GLUCOSE DEVICE Routine 01/29/2021 9 :16 PM SILO TENDER POCT GLUCOSE DEVICE Routine 01/29/2021 4 :41 PM SILO TENDER POCT GLUCOSE DEVICE Routine 01/29/2021 1 1:27 AM SILO TENDER POCT GLUCOSE DEVICE Routine 01/29/2021 7 :37 AM SILO TENDER POCT GLUCOSE DEVICE Routine 01/28/2021 5 :07 PM SILO TENDER POCT GLUCOSE DEVICE Routine 01/28/2021 1 1:30 AM SILO TENDER POCT GLUCOSE DEVICE Routine 01/28/2021 8 :07 AM SILO TENDER POCT GLUCOSE DEVICE Routine 01/28/2021 1 :58 AM SILO TENDER POCT GLUCOSE DEVICE Routine 01/27/2021 1 1:54 PM SILO TENDER POCT GLUCOSE DEVICE Routine 01/27/2021 8 :05 PM SILO TENDER POCT GLUCOSE DEVICE Routine 01/27/2021 3 :58 PM SILO TENDER POCT GLUCOSE DEVICE Routine 01/27/2021 1 1:25 AM SILO TENDER POCT GLUCOSE DEVICE Routine 01/27/2021 7 :58 AM SILO TENDER POCT GLUCOSE DEVICE Routine 01/27/2021 1 :48 AM SILO TENDER POCT GLUCOSE DEVICE Routine 01/26/2021 9 :00 PM SILO TENDER POCT GLUCOSE DEVICE Routine 01/26/2021 4 :26 PM SILO TENDER POCT GLUCOSE DEVICE Routine 01/26/2021 1 0:57 AM SILO TENDER POCT GLUCOSE DEVICE Routine 01/26/2021 7 :56 AM SILO TENDER POCT GLUCOSE DEVICE Routine 01/25/2021 4 :36 PM SILO TENDER POCT GLUCOSE DEVICE Routine 01/25/2021 1 2:08 PM SILO TENDER documented in this encounter Results * POCT glucose (01/31/2021 11:44 AM CDT) Glucose, POC 105 70 - 199 mg/dL [facility] Blood specimen (specimen) 01/31/2021 11:44 AM CDT 01/31/2021 11:44 AM CDT Rodrick Elizabeth MD PhD LAB POCT ORDERABLES - DEV ICE Final Result Performing Organization Address City/[facility]/ZIP Co de Phone Number [facility] [place] [address] * POCT glucose (01/31/2021 7:38 AM CDT) Glucose, POC 85 70 - 199 mg/dL [facility] Blood specimen (specimen) 01/31/2021 7:38 AM CDT 01/31/2021 7:38 AM CDT Rodrick Elizabeth MD PhD LAB POCT ORDERABLES - DEV ICE Final Result Performing Organization Address City/[facility] Co de Phone Number [facility] [place] [place] [address] * POCT glucose (01/30/2021 8:33 PM SILO TENDER) Glucose, POC 190 70 - 199 mg/dL [facility] Blood specimen (specimen) 01/30/2021 8:33 PM SILO TENDER 01/30/2021 8:33 PM SILO TENDER Rodrick Elizabeth MD PhD LAB POCT ORDERABLES - DEV ICE Final Result Performing Organization Address City/[facility] Co de Phone Number [facility] [place] [address] * POCT glucose (01/30/2021 4:37 PM SILO TENDER) Glucose, POC 192 70 - 199 mg/dL [facility] Blood specimen (specimen) 01/30/2021 4:37 PM SILO TENDER 01/30/2021 4:37 PM SILO TENDER Rodrick Elizabeth MD PhD LAB POCT ORDERABLES - DEV ICE Final Result Performing Organization Address City/[facility] Co de Phone Number [facility] [place] [address] * POCT glucose (01/30/2021 11:47 AM SILO TENDER) Glucose, POC 136 70 - 199 mg/dL [facility] Blood specimen (specimen) 01/30/2021 11:47 AM SILO TENDER 01/30/2021 11:47 AM SILO TENDER Rodrick Elizabeth MD PhD LAB POCT ORDERABLES - DEV ICE Final Result Performing Organization Address City/[facility] Co de Phone Number [facility] [place] [address] * POCT glucose (01/30/2021 7:33 AM SILO TENDER) Glucose, POC 106 70 - 199 mg/dL [facility] Blood specimen (specimen) 01/30/2021 7:33 AM SILO TENDER 01/30/2021 7:33 AM SILO TENDER Rodrick Elizabeth MD PhD LAB POCT ORDERABLES - DEV ICE Final Result Performing Organization Address City/[facility] Co de Phone Number [facility] [place] [address] * (ABNORMAL) POCT glucose (01/29/2021 9:16 PM SILO TENDER) Glucose, POC 224(H) 70 - 199 mg/dL [facility] Blood specimen (specimen) 01/29/2021 9:16 PM SILO TENDER 01/29/2021 9:16 PM SILO TENDER Result Feng Elizabeth MD PhD LAB POCT ORDERABLES - DEV ICE Final Result Performing Organization Address [facility] Co de Phone Number [facility] [place] [address] * POCT glucose (01/29/2021 4:41 PM SILO TENDER) Glucose, POC 158 70 - 199 mg/dL [facility] Blood specimen (specimen) 01/29/2021 4:41 PM SILO TENDER 01/29/2021 4:41 PM SILO TENDER us Rodrick Elizabeth MD PhD LAB POCT ORDERABLES - DEV ICE Final Result Performing Organization Address [facility] Co de Phone Number [facility] [place] [address] * POCT glucose (01/29/2021 11:27 AM SILO TENDER) Glucose, POC 146 70 - 199 mg/dL [facility] Blood specimen (specimen) 01/29/2021 11:27 AM SILO TENDER 01/29/2021 11:27 AM SILO TENDER Result Feng Elizabeth MD PhD LAB POCT ORDERABLES - DEV ICE Final Result Performing Organization Address City/[facility] [place] [address] * POCT glucose (01/29/2021 7:37 AM SILO TENDER) Glucose, POC 109 70 - 199 mg/dL [facility] Blood specimen (specimen) 01/29/2021 7:37 AM SILO TENDER 01/29/2021 7:37 AM SILO TENDER us Rodrick Elizabeth MD PhD LAB POCT ORDERABLES - [place] [address] * POCT glucose (01/28/2021 5:07 PM SILO TENDER) Glucose, POC 172 70 - 199 mg/dL [facility] Blood specimen (specimen) 01/28/2021 5:07 PM SILO TENDER 01/28/2021 5:07 PM SILO TENDER us Rodrick Elizabeth MD PhD LAB POCT ORDERABLES - DEV ICE Final Result Performing Organization Address [facility] [place] [address] * POCT glucose (01/28/2021 11:30 AM SILO TENDER) Glucose, POC 186 70 - 199 mg/dL [facility] Blood specimen (specimen) 01/28/2021 11:30 AM SILO TENDER 01/28/2021 11:30 AM SILO TENDER us Rodrick Elizabeth MD PhD LAB POCT ORDERABLES - DEV ICE Final Result Performing Organization Address City/[facility]/[place] [address] * POCT glucose (01/28/2021 8:07 AM SILO TENDER) Glucose, POC 106 70 - 199 mg/dL [facility] Blood specimen (specimen) 01/28/2021 8:07 AM SILO TENDER 01/28/2021 8:07 AM SILO TENDER us Rodrick Elizabeth MD PhD LAB POCT ORDERABLES - DEV ICE Final Result Performing Organization Address City/[facility]/ZIP Co de Phone Number [facility] [place] [address] * POCT glucose (01/28/2021 1:58 AM SILO TENDER) Glucose, POC 133 70 - 199 mg/dL [facility] Blood specimen (specimen) 01/28/2021 1:58 AM SILO TENDER 01/28/2021 1:58 AM SILO TENDER us Rodrick Elizabeth MD PhD LAB POCT ORDERABLES - DEV ICE Final Result Performing Organization Address City/[facility]/[place] [address] * POCT glucose (01/27/2021 11:54 PM SILO TENDER) [facility] Signature Glucose, POC 82 70 - 199 mg/dL [facility] Blood specimen (specimen) 01/27/2021 11:54 PM SILO TENDER 01/27/2021 11:54 PM SILO TENDER Rodrick Elizabeth MD PhD LAB POCT ORDERABLES - DEV ICE Final Result Performing Organization Address City/[facility]/[place] [address] * (ABNORMAL) POCT glucose (01/27/2021 8:05 PM SILO TENDER) Glucose, POC 214(H) 70 - 199 mg/dL [facility] Blood specimen (specimen) 01/27/2021 8:05 PM SILO TENDER 01/27/2021 8:05 PM SILO TENDER us Rodrick Elizabeth MD PhD LAB POCT ORDERABLES - DEV ICE Final Result Performing Organization Address City/[facility]/[place] [address] * POCT glucose (01/27/2021 3:58 PM SILO TENDER) Glucose, POC 92 70 - 199 mg/dL [facility] Blood specimen (specimen) 01/27/2021 3:58 PM SILO TENDER 01/27/2021 3:58 PM SILO TENDER Rodrick Elizabeth MD PhD LAB POCT ORDERABLES - DEV ICE Final Result Performing Organization Address City/[facility] Co de Phone Number [facility] [place] [place] [address] * POCT glucose (01/27/2021 11:25 AM SILO TENDER) Glucose, POC 123 70 - 199 mg/dL [facility] Blood specimen (specimen) 01/27/2021 11:25 AM SILO TENDER 01/27/2021 11:25 AM SILO TENDER Rodrick Elizabeth MD PhD LAB POCT ORDERABLES - DEV ICE Final Result Performing Organization Address [facility] Co de Phone Number [facility] [place] [address] * POCT glucose (01/27/2021 7:58 AM SILO TENDER) Glucose, POC 107 70 - 199 mg/dL [facility] Blood specimen (specimen) 01/27/2021 7:58 AM SILO TENDER 01/27/2021 7:58 AM SILO TENDER Rodrick Elizabeth MD PhD LAB POCT ORDERABLES - DEV ICE Final Result Performing Organization Address City/[facility] Co de Phone Number [facility] [place] [address] * POCT glucose (01/27/2021 1:48 AM SILO TENDER) Glucose, POC 93 70 - 199 mg/dL [facility] Blood specimen (specimen) 01/27/2021 1:48 AM SILO TENDER 01/27/2021 1:48 AM SILO TENDER us Rodrick Elizabeth MD PhD LAB POCT ORDERABLES - DEV ICE Final Result Performing Organization Address [facility] Co de Phone Number [facility] [place] [address] * POCT glucose (01/26/2021 9:00 PM SILO TENDER) Glucose, POC 109 70 - 199 mg/dL [facility] Glucose comment 1 RN Notified [facility] Blood specimen (specimen) 01/26/2021 9:00 PM SILO TENDER 01/26/2021 9:00 PM SILO TENDER us Rodrick Elizabeth MD PhD LAB POCT ORDERABLES - DEV ICE Final Result Performing Organization Address [facility] Co de Phone Number [facility] [place] [address] * POCT glucose (01/26/2021 4:26 PM SILO TENDER) Glucose, POC 165 70 - 199 mg/dL [facility] Blood specimen (specimen) 01/26/2021 4:26 PM SILO TENDER 01/26/2021 4:26 PM SILO TENDER us Rodrick Elizabeth MD PhD LAB POCT ORDERABLES - DEV ICE Final Result Performing Organization Address [facility] Co de Phone Number [facility] [place] [address] * POCT glucose (01/26/2021 10:57 AM SILO TENDER) Glucose, POC 134 70 - 199 mg/dL [facility] Blood specimen (specimen) 01/26/2021 10:57 AM SILO TENDER 01/26/2021 10:57 AM SILO TENDER us Rodrick Elizabeth MD PhD LAB POCT ORDERABLES - DEV ICE Final Result Performing Organization Address City/[facility]/ZIP Co de Phone Number [facility] [place] [address] * POCT glucose (01/26/2021 7:56 AM SILO TENDER) Glucose, POC 116 70 - 199 mg/dL [facility] Blood specimen (specimen) 01/26/2021 7:56 AM SILO TENDER 01/26/2021 7:56 AM SILO TENDER Rodrick Elizabeth MD PhD LAB POCT ORDERABLES - DEV ICE Final Result Performing Organization Address [facility] Co de Phone Number [facility] [place] [address] * POCT glucose (01/25/2021 4:36 PM SILO TENDER) Glucose, POC 97 70 - 199 mg/dL [facility] Blood specimen (specimen) 01/25/2021 4:36 PM SILO TENDER 01/25/2021 4:36 PM SILO TENDER Rodrick Elizabeth MD PhD LAB POCT ORDERABLES - DEV ICE Final Result Performing Organization Address City/[facility] Co de Phone Number [facility] [place] [address] * POCT glucose (01/25/2021 12:08 PM SILO TENDER) Glucose, POC 96 70 - 199 mg/dL [facility] Blood specimen (specimen) 01/25/2021 12:08 PM SILO TENDER 01/25/2021 12:08 PM SILO TENDER us Rodrick Elizabeth MD PhD LAB POCT ORDERABLES - DEV ICE Final Result Performing Organization Address City/[facility]/ZIP Co de Phone Number [facility] [place] [address] documented in this encounter Visit Diagnoses Diagnosis Unspecified abnormal involuntary movements- Primary Type 2 diabetes mellitus without complication, without long-term current use of insulin (CMS/HCC) (HCC) Hypertensive chronic kidney disease documented in this encounter Administered Medications Inactive Administered Medications - up to 3 most recent administrations Medication Order MAR Action Action Date Dose Rate Site acetaminophen (TYLENOL) tablet 650 mg 650 mg, oral, Every 6 hours PRN, 1st line for pain, Starting on Mon01/25/21 at 1055 Given 01/31/2021 8:39 AM CDT 650 mg Given 01/30/2021 8:53 PM SILO TENDER 650 mg Given 01/30/2021 8:20 AM SILO TENDER 650 mg aspirin enteric coated tablet 81 mg 81 mg, oral, Daily, First dose on Mon01/26/21 at 0900, Do not crush, chew, cut, dissolve, open or otherwise manipulate tablet/capsule. Given 01/31/2021 8:31 AM CDT 81 mg Given 01/30/2021 8:05 AM SILO TENDER 81 mg Given 01/29/2021 8:32 AM SILO TENDER 81 mg dextrose (D10W) 10% bolus 250 mL 250 mL, intravenous, at 1,000 mL/hr, Administer over 15 Minutes, Every 15 min PRN, blood glucose less than 70 mg/dL and UNABLE to swallow/take PO glucose/juice., Starting on Mon01/25/21 at 0957, After treatment for hypoglycemia, recheck BG followed by treatment every 15 minutes until the BG is greater than 100 mg/dL. Then check BG 1 hour post treatment. If BG is less than 100 mg/dL, repeat Q15 minute BG checks and treatment. Call MD for each episode of hypoglycemia., Indications: hypoglycemic disorderIndications:hypoglycemic disorder dextrose (GLUTOSE) 40 % gel 15 g 15 g, oral, Every 15 min PRN, low blood sugar, blood glucose less than 70 mg/dL, Starting on Mon01/25/21 at 0957, If patient is alert and able to eat/drink, give 15 gm glucose or one juice (4 fluid ounces) NOT ORANGE JUICE. After treatment for hypoglycemia, recheck BG followed by treatment every 15 minutes until the BG is greater than 100 mg/dL. Then check BG 1 hour post-treatment. If BG is less than 100 mg/dL, repeat Q15 minute BG checks and treatment. Call MD for each episode of hypoglycemia. [employer] DISPLAY SPECIALIST STATES GLUTOSE-15 CONTAINS GLUCOSE 40% W/W (50% W/V), Indications: hypoglycemic disorderIndications:hypoglycemic disorder diphenhydrAMINE (BENADRYL) tab/cap 25 mg 25 mg, oral, 4 times daily PRN, itching, Starting on Mon01/25/21 at 1055 Given 01/30/2021 8:53 PM SILO TENDER 25 mg Given 01/30/2021 4:24 AM SILO TENDER 25 mg Given 01/28/2021 8:38 PM SILO TENDER 25 mg glimepiride (AMARYL) tablet 2 mg 2 mg, oral, 2 times daily before meals (bkfst, dinner), First dose (after last modification) on Mon01/25/21 at 1730, Take with food Patient's home medication supply has been approved by the pharmacy. Medication can be administered to the patient, Indications: type 2 diabetes mellitusIndications:type 2 diabetes mellitus Given 01/31/2021 7:47 AM CDT 2 mg Given 01/30/2021 4:30 PM SILO TENDER 2 mg Given 01/30/2021 8:16 AM SILO TENDER 2 mg hydroCHLOROthiazide (HYDRODIURIL) tablet 12.5 mg 12.5 mg, oral, Daily, First dose on Mon01/26/21 at 0900 Given 01/31/2021 8:31 AM CDT 12.5 mg Given 01/30/2021 8:05 AM SILO TENDER 12.5 mg Given 01/29/2021 8:32 AM SILO TENDER 12.5 mg icosapent ethyL (VASCEPA) 0.5 gram capsule 2 g 2 g, oral, 2 times daily with meals (bkfst, dinner), First dose on Mon01/25/21 at 1345, Patient's home medication supply has been approved by the pharmacy. Medication can be administered to the patient Do not crush, chew, cut, dissolve, open or otherwise manipulate tablet/capsule. Given 01/31/2021 8:31 AM CDT 2 g Given 01/30/2021 4:31 PM SILO TENDER 2 g Given 01/30/2021 8:03 AM SILO TENDER 2 g insulin glargine (LANTUS) injection 51 Units 51 Units, subcutaneous, Nightly, First dose on Mon01/25/21 at 2100, Do not mix with other insulins Given 01/30/2021 8:53 PM SILO TENDER 51 Units Left Lower Abdomen Given 01/29/2021 9:30 PM SILO TENDER 51 Units Le ft Lower Abdomen Given 01/28/2021 8:48 PM SILO TENDER 51 Units Ri ght Lower Abdomen losartan (COZAAR) tablet 100 mg 100 mg, oral, Daily, First dose on Mon01/26/21 at 0900 Given 01/31/2021 8:31 AM CDT 100 mg Given 01/30/2021 8:05 AM SILO TENDER 100 mg Given 01/29/2021 8:32 AM SILO TENDER 100 mg metFORMIN XR (GLUCOPHAGE XR) tablet 500 mg 500 mg, oral, Daily with breakfast, First dose on Mon01/26/21 at 0800, Take with food Do not crush, chew, cut, dissolve, open or otherwise manipulate tablet/capsule. Given 01/31/2021 8:31 AM CDT 500 mg Given 01/30/2021 8:05 AM SILO TENDER 500 mg Given 01/29/2021 8:32 AM SILO TENDER 500 mg rosuvastatin (CRESTOR) tablet 10 mg 10 mg, oral, Nightly, First dose on Mon01/25/21 at 2100 Given 01/30/2021 8:53 PM SILO TENDER 10 mg Given 01/29/2021 9:30 PM SILO TENDER 10 mg Given 01/28/2021 8:38 PM SILO TENDER 10 mg sertraline (ZOLOFT) tablet 100 mg 100 mg, oral, Daily, First dose on Mon01/26/21 at 0900 Given 01/31/2021 8:31 AM CDT 100 mg Given 01/30/2021 8:05 AM SILO TENDER 100 mg Given 01/29/2021 8:32 AM SILO TENDER 100 mg sodium chloride 0.9% flush 0.5-20 mL 0.5-20 mL, intra-catheter, Every 8 hours scheduled, First dose on Mon01/25/21 at 1400, Flush volume based on line type and size. Given 01/31/2021 2:00 PM CDT 10 mL Given 01/30/2021 8:54 PM SILO TENDER 10 mL Given 01/30/2021 1:30 PM SILO TENDER 10 mL documented in this encounter Discontinued Medications Medication Sig Discontinue Reason Start Date End Da te acetaZOLAMIDE (DIAMOX) 250 mg tablet Take 250 mg by mouth 2 (two) times a day Therapy completed 01/25/2021 cephalexin (KEFLEX) 500 mg capsule Therapy completed 02/07/2019 01/25/2021 DOXYCYCLINE 100 mg tablet Therapy completed 02/20/2019 01/25/2021 metFORMIN (GLUCOPHAGE) 500 mg tablet Take 500 mg by mouth Alternate therapy 08/14/2014 metoprolol (LOPRESSOR) 25 mg tablet Therapy completed 02/20/2019 01/25/2021 POTASSIUM CHLORIDE ER 10 mEq CR tablet Therapy completed 02/20/2019 01/25/2021 propranolol (INDERAL) 20 mg tablet Take 20 mg by mouth daily Therapy completed 01/25/2021 insulin degludec (TRESIBA) 200 unit/mL (3 mL) insulin pen Tresiba FlexTouch U-200 insulin 200 unit/mL (3 mL) subcutaneous pen 06/12/2020 01/25/2021 levETIRAcetam (KEPPRA) 750 mg tablet 2 (two) times a day Stop Taking at Discharge 12/28/2020 01/31/2021 documented as of this encounter Historical Medications * This list may reflect changes made after this encounter. metFORMIN XR (GLUCOPHAGE XR) 500 mg 24 hr tablet Take 1 tablet (500 mg total) by mouth daily with breakfast icosapent ethyL (VASCEPA) 1 gram capsule Take 0.5 g by mouth 2 (two) times a day Take 4 caps twice daily added in this encounter Active and Recently Administered Medications Due to Daylight Saving Time, this section may contain times in both SILO TENDER and CDT. Scheduled Medication Order 01/29/2021 01/30/2021 01/31/2021 aspirin enteric coated tablet 81 mg 81 mg, oral, Daily, First dose on Mon01/26/21 at 0900, Do not crush, chew, cut, dissolve, open or otherwise manipulate tablet/capsule. 0832 (Given - Provider: Fernanda King RN) 0805 (Given - Provider: Ruth Muniz RN) 0831 (Given - Provider: Ruth Muniz RN) glimepiride (AMARYL) tablet 2 mg 2 mg, oral, 2 times daily before meals (bkfst, dinner), First dose (after last modification) on Mon01/25/21 at 1730, Take with food Patient's home medication supply has been approved by the pharmacy. Medication can be administered to the patient, Indications: type 2 diabetes mellitus 0834 (Given - Provider: Fernanda King RN)1814 (Given - Provider: Fernanda King RN) 0816 (Given - Provider: Ruth Muniz RN)1630 (Given - Provider: Ruth Muniz RN) 0747 (Given - Provider: Ruth Muniz, HARDIK) hydroCHLOROthiazide (HYDRODIURIL) tablet 12.5 mg 12.5 mg, oral, Daily, First dose on Mon01/26/21 at 0900 0832 (Given - Provider: Fernanda King RN) 0805 (Given - Provider: Ruth Muniz RN) 0831 (Given - Provider: Ruth Muniz RN) icosapent ethyL (VASCEPA) 0.5 gram capsule 2 g 2 g, oral, 2 times daily with meals (bkfst, dinner), First dose on Mon01/25/21 at 1345, Patient's home medication supply has been approved by the pharmacy. Medication can be administered to the patient Do not crush, chew, cut, dissolve, open or otherwise manipulate tablet/capsule. 0834 (Given - Provider: Fernanda King RN)1813 (Given - Provider: Fernanda King RN) 0803 (Given - Provider: Ruth Muniz RN)1631 (Given - Provider: Ruth Muniz, HARDIK) 0831 (Given - Provider: Ruth Muniz, HARDIK) insulin glargine (LANTUS) injection 51 Units 51 Units, subcutaneous, Nightly, First dose on Mon01/25/21 at 2100, Do not mix with other insulins 2129 (Given - Provider: Diann Ayala RN) 2052 (Given - Provider: Kita Barry) insulin lispro (HumaLOG, ADMELOG) injection 1-2 Units 1-2 Units, subcutaneous, 3 times daily with meals, First dose on Mon01/25/21 at 1200, Blood Sugar Extra Low Dose meal time - PO patients 200 or less No Insulin 201 - 250 1 unit 251 - 299 2 units Greater than 299 Call MD for hyperglycemia management instructions Do NOT hold for NPO status., Indications: Diabetes Mellitus 0805 (Not Given - Provider: Fernanda King RN - Reason: Order parameters not met - Comment: BLOOD GLUCOSE [phone] (Not Given - Provider: Fernanda King RN - Reason: Order parameters not met - Comment: BLOOD GLUCOSE [phone] (Not Given - Provider: Fernanda King RN - Reason: Order parameters not met - Comment: BLOOD GLUCOSE 158) 0813 (Not Given - Provider: Ruth Muniz RN - Reason: Order parameters not met)1151 (Not Given - Provider: Ruth Muniz RN - Reason: Order parameters not met)1727 (Not Given - Provider: Ruth Muniz RN - Reason: Order parameters not met) 0831 (Not Given - Provider: Ruth Muniz RN - Reason: Order parameters not met)1200 (Not Given - Provider: Ruth Muniz RN - Reason: Order parameters not met) losartan (COZAAR) tablet 100 mg 100 mg, oral, Daily, First dose on Mon01/26/21 at 0900 0832 (Given - Provider: Fernanda King RN) 08 (Given - Provider: Ruth Muniz RN) 0831 (Given - Provider: Ruth Muniz RN) metFORMIN XR (GLUCOPHAGE XR) tablet 500 mg 500 mg, oral, Daily with breakfast, First dose on Mon01/26/21 at 0800, Take with food Do not crush, chew, cut, dissolve, open or otherwise manipulate tablet/capsule. 0832 (Given - Provider: Fernanda King RN) 0805 (Given - Provider: Ruth Muniz RN) 0831 (Given - Provider: Ruth Muniz RN) rosuvastatin (CRESTOR) tablet 10 mg 10 mg, oral, Nightly, First dose on Mon01/25/21 at 2100 2130 (Given - Provider: Diann Ayala RN) 2052 (Given - Provider: Kita Barry) sertraline (ZOLOFT) tablet 100 mg 100 mg, oral, Daily, First dose on Mon01/26/21 at 0900 0832 (Given - Provider: Fernanda King RN) 0805 (Given - Provider: Ruth Muniz RN) 0831 (Given - Provider: Ruth Muniz, HARDIK) sodium chloride 0.9% flush 0.5-20 mL 0.5-20 mL, intra-catheter, Every 8 hours scheduled, First dose on Mon01/25/21 at 1400, Flush volume based on line type and size. 0655 (Not Given - Provider: Bernice Azar - Reason: Other)1410 (Given - Provider: Fernanda King RN)2131 (Given - Provider: Diann Ayala RN) 0537 (Not Given - Provider: Diann Ayala RN - Reason: Other - Comment: patient was sleep deprived until 0400, is sleeping now.)1330 (Given - Provider: Ruth Muniz RN)2054 (Given - Provider: Kita Barry) 0632 (Not Given - Provider: Kita Barry - Reason: Other)1400 (Given - Provider: Ruth Muniz, HARDIK) PRN Medication Order 01/29/2021 01/30/2021 01/31/2021 acetaminophen (TYLENOL) tablet 650 mg 650 mg, oral, Every 6 hours PRN, 1st line for pain, Starting on Mon01/25/21 at 1055 0820 (Given - Provider: Ruth Muniz RN)2052 (Given - Provider: Kita Barry) 0839 (Given - Provider: Ruth Muniz RN) dextrose (D10W) 10% bolus 250 mL(Linked Group 1) 250 mL, intravenous, at 1,000 mL/hr, Administer over 15 Minutes, Every 15 min PRN, blood glucose less than 70 mg/dL and UNABLE to swallow/take PO glucose/juice., Starting on Mon01/25/21 at 0957, After treatment for hypoglycemia, recheck BG followed by treatment every 15 minutes until the BG is greater than 100 mg/dL. Then check BG 1 hour post treatment. If BG is less than 100 mg/dL, repeat Q15 minute BG checks and treatment. Call MD for each episode of hypoglycemia., Indications: hypoglycemic disorder dextrose (GLUTOSE) 40 % gel 15 g(Linked Group 1) 15 g, oral, Every 15 min PRN, low blood sugar, blood glucose less than 70 mg/dL, Starting on Mon01/25/21 at 0957, If patient is alert and able to eat/drink, give 15 gm glucose or one juice (4 fluid ounces) NOT ORANGE JUICE. After treatment for hypoglycemia, recheck BG followed by treatment every 15 minutes until the BG is greater than 100 mg/dL. Then check BG 1 hour post-treatment. If BG is less than 100 mg/dL, repeat Q15 minute BG checks and treatment. Call MD for each episode of hypoglycemia. [employer] DIS[employer] SPECIALIST STATES GLUTOSE-15 CONTAINS GLUCOSE 40% W/W (50% W/V), Indications: hypoglycemic disorder diphenhydrAMINE (BENADRYL) tab/cap 25 mg 25 mg, oral, 4 times daily PRN, itching, Starting on Mon01/25/21 at 1055 0424 (Given - Provider: Diann Ayala RN)3 (Given - Provider: Kita Barry) glucagon injection 1 mg 1 mg, intramuscular, Administer over 1 Minutes, Every 30 min PRN, low blood sugar, blood glucose less than 70 mg/dL AND no IV access AND unable to take PO glucose/jiuce., Starting on Mon01/25/21 at 0957, After Glucagon is administered, position patient on side if possible to avoid aspiration. Obtain IV access. Follow glucagon treatment with glucose treatment or IV dextrose. After treatment for hypoglycemia, recheck BG followed by treatment every 15 minutes until the BG is greater than 100 mg/dL. Then check BG 1 hour post treatment. If BG is less than 100 mg/dL, repeat Q15 minute BG checks and treatment. Call MD for each episode of hypoglycemia. Reconstitute 1 mg vial with 1 mL SWFI. Use immediately following reconstitution., Indications: Hypoglycemia sodium chloride 0.9% flush 0.5-20 mL 0.5-20 mL, intra-catheter, As needed, line care, Starting on Mon01/25/21 at 0948, Flush volume based on line type and size. Flush before and after each use. Linked Groups Order Group 1: dextrose (GLUTOSE) 40 % gel 15 gJump to med 15 g, oral, Every 15 min PRN, low blood sugar, blood glucose less than 70 mg/dL, Starting on 01/25/21 at 0957, If patient is alert and able to eat/drink, give 15 gm glucose or one juice (4 fluid ounces) NOT ORANGE JUICE. After treatment for hypoglycemia, recheck BG followed by treatment every 15 minutes until the BG is greater than 100 mg/dL. Then check BG 1 hour post-treatment. If BG is less than 100 mg/dL, repeat Q15 minute BG checks and treatment. Call MD for each episode of hypoglycemia. [employer] DISPLAY SPECIALIST STATES GLUTOSE-15 CONTAINS GLUCOSE 40% W/W (50% W/V), Indications: hypoglycemic disorder Or dextrose (D10W) 10% bolus 250 mLJump to med 250 mL, intravenous, at 1,000 mL/hr, Administer over 15 Minutes, Every 15 min PRN, blood glucose less than 70 mg/dL and UNABLE to swallow/take PO glucose/juice., Starting on 01/25/21 at 0957, After treatment for hypoglycemia, recheck BG followed by treatment every 15 minutes until the BG is greater than 100 mg/dL. Then check BG 1 hour post treatment. If BG is less than 100 mg/dL, repeat Q15 minute BG checks and treatment. Call MD for each episode of hypoglycemia., Indications: hypoglycemic disorder documented in this encounter Orders Medications Ordered That Brendan ht Not Have Been Administered Count Last Ordered Date First Ordered Date dextrose (D10W) 10% bolus 250 mL 1 01/26/20 21 dextrose (GLUTOSE) 40 % gel 15 g 1 01/26/20 21 glimepiride (AMARYL) tablet 1 mg 2 01/26/20 21 glucagon injection 1 mg 1 01/25/2021 icosapent ethyL (VASCEPA) 1 gram capsule 2 g 1 01/25/2021 insulin lispro (HumaLOG, ADM ELOG) injection 1-2 Units 1 01/25/2021 NON FORMULARY (FOR INPATIENT USE) 2 021 sodium chloride 0.9% flush 0.5-20 mL 1 06/2021 Lab Orders Without Results Count Last Ordered D ate First Ordered Date POCT GLUCOSE DEVICE 12 01/31/2021 01/26/20 21 Diet Count Last Ordered Date First Orde red Date ADULT DISCHARGE DIET 1 01/31/2021 Nursing Count Last Ordered Date First Orde red Date DISCHARGE ACTIVITY 1 01/31/2021 WEIGH PATIENT 1 01/25/2021 CORE MEASURES Count Last Ordered Date First Ord ered Date REASON FOR NO VTE PROPHYLAXIS AT ADMISSION 2 01/29/2021 01/25/2021 documented in this encounter Care Teams Digester Operator Helper Relationship Specialty Start Date End Date Andrei Clark MD PCP - General Internal Medicine 12/11/20 documented as of this encounter
--- OUTSIDE RECORDS SUMMARY | 2024-11-17 14:27 | XMS_ITS | Encounter Summary ---
Author Organization [facility] Address [address] [place] [address] Phone Care Team Providers Care Cigar Packer Name Role Phone Andrei Clark MD Primary Care Provider [phone] Kandace Freedman OT Unavailable [phone] Reason for Visit * Reason Comments OT Initial Eval * Consultation (Routine) - Closed Specialty Diagnoses / Procedures Referred By Tiburcio caicedo Referred To Contact Occupational Therapy Diagnoses Unspecified abnormal involuntary movements Dioni Pérez MD PhD [address] [place] [address] Phone: tel: fax: Kandace Freedman OT [address] [place] [address] Phone: tel: fax: Referral ID Status Reason Start Date Expiration Date V isits Requested Visits Authorized [id number] Closed Specialty Services Required 02/04/2021 03/06/2022 24 24 Encounter Details Date Type Department Care Team (Late st Contact Info) Description 03/11/2021 12:00 PM CDT Therapy 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 OT Services in Clinic on 03/11/2021. Treatment Diagnosis: Unspecified abnormal involuntary movements [R25.9] Problem List: Patient Active Problem List Diagnosis ??? Pyelonephritis ??? Right flank pain ??? Idiopathic intracranial hypertension ??? Hypertensive retinopathy of both eyes ??? Insulin dependent diabetes mellitus ??? Unspecified abnormal involuntary movements ??? Type 2 diabetes mellitus without complication, without long-term current use of insulin (CMS/HCC) ??? Hypertensive chronic kidney disease Medical History: Past Medical History: Diagnosis Date ??? CKD (chronic kidney disease) stage 2, GFR 60-89 ml/min ??? Diabetes mellitus (CMS/HCC) ??? DVT (deep venous thrombosis) (CMS/HCC) ??? Idiopathic intracranial hypertension ??? Pituitary tumor ??? Polycystic kidney disease ??? Polycystic ovarian disease ??? Renal disorder Medications: Current Outpatient Medications Medication Sig Dispense Refill ??? amLODIPine (NORVASC) 5 mg tablet Take 10 mg by mouth daily ??? aspirin 81 mg enteric coated tablet ??? dulaglutide (TRULICITY) 1.5 mg/0.5 mL pen injector 0.5 mL ??? fluticasone (FLONASE) 50 mcg/actuation nasal spray ??? furosemide (LASIX) 20 mg tablet Take 20 mg by mouth daily as needed ??? glimepiride (AMARYL) 1 mg tablet TAKE 2 TABLETS BY MOUTH TWICE DAILY BEFORE MEAL(S) ??? hydroCHLOROthiazide (HYDRODIURIL) 12.5 mg tablet Take 12.5 mg by mouth daily ??? HYDROcodone-acetaminophen (NORCO) 5-325 mg per tablet Take 1 tablet by mouth every 6 (six) hours as needed ??? icosapent ethyL (VASCEPA) 1 gram capsule Take 0.5 g by mouth 2 (two) times a day Take 4 caps twice daily ??? losartan (COZAAR) 100 mg tablet losartan 100 mg tablet TAKE 1 TABLET BY MOUTH ONCE DAILY ??? metFORMIN XR (GLUCOPHAGE XR) 500 mg 24 hr tablet Take 500 mg by mouth daily with breakfast ??? rosuvastatin (CRESTOR) 10 mg tablet rosuvastatin 10 mg tablet TAKE 1 TABLET BY MOUTH ONCE DAILY IN THE EVENING ??? sertraline (ZOLOFT) 100 mg tablet sertraline 100 mg tablet TAKE 1 TABLET BY MOUTH ONCE DAILY FOR 30 DAYS No current facility-administered medications for this visit. Allergies: Metoclopramide, Ondansetron, Phenergan [promethazine], and Prochlorperazine SUBJECTIVE Client reported problem: Ct's onset was 4-5 years ago at the time she noted she was blocked during times sit to stand from sitting. In 2016, ct id vocal stuttering with eye roll tics were affectingher ability to talk during her work tasks. In [id number], ct began to have with minor episodes of muscles twitching on face and arm. At this time, ct stated as she first noticed firing pain when sitting elba cross on floor. Dizziness started September 2018, with 24/7 dizziness. Symptoms progressed to moderate fatigue and LLE/RLE blocking that affected gait swing. Ct stated currently she continues have all symptoms and symptoms are affecting significantly her daily tasks. Ct was evaluated by Dr Grimes on 12/30/20 who dx her with unspecified abnormal involuntary movements with further testing to assess if symptoms are Functional Neurological Disorder. 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 Past Medical History: - Chronic kidney disease - Anxiety - HTN - Diabetes - Fibromyalgia - Deep Vein Thrombosis - Diabetic Neuropathy- Ct reported symptoms on belly, numb on heads, toes, - Idiopathic Intercranial Hypertension - Empty Sella Syndrome - Abnormal Veins on Left Side of Brain - Asthma (triggered by aresols or height) Client/Caregiver goals: Ct and her daughter are seeking OT services to increase management of FND symptoms to improve success in daily home and community tasks. Previous Treatment: No tx. Current Treatment: No tx Pain Current pain: 2/10- L hand Worst pain: 8/10- L hand/wrist/forearm ct experiences pressure/tightening. B feet flex/contraction,L foot > R foot. Best pain: 11/29 Living Situation Lives with: daughter (18) and son (16) Type of home: One story Habits/Routines/Roles Morning routine: consistent. Wakes up at 7-8. Routines includes: toileting, brushing teeth, dressing, eating, medications and feeding pet. Nighttime Routine: consistent. Goes to Bed at night: 10-11 on a good night, midnight 3 days a week.Sleeps 6-9 hrs a night. Wakes during night: 3 or more times. Reported tossing and turning 5 times anight. Sleep problems: Taking an hour to fall asleep. Naps during day: no. Routine to fall asleep includes: toileting, medication, undressing and putting on Pjs, watch Tv and watch [employer] onphone. 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 There is concerns: activity tolerance, stuttering FND symptoms affecting talking with client's ability to work Utilization of community resources: need education OBJECTIVE Vision Vision Impaired- after closing and opening eyes- see black. See colors when eyes are closed. Glasses/contacts: Yes Visual perceptual deficits (double vision, strabismus, depth perception, scanning)? Yes: eye tracers, when looking straight ahead, spotting of visual field, hemorrhaging within eyes, reported symptoms of macular edema. Functional Cognition Communication: verbal. Oriented to: person, place, time and situation Follows Commands: One step Cues Needed to follow commands: max verbal and physical cues with extra time for processing. Reports that visual cues do not help with follow through. Sustained Attention: impaired: Inconsistent follow through to sustain attention during tasks 2/[address] frequently is unable to complete tasks without mod physical or verbal assistance. Divided Attention: impaired:cannot divide attention. Short Term Memory: intact. Penitentiary Memory: intact. Working Term Memory: intact. Organization: intact, very particular about organization. Daughter stated will recheck tasks her children completed to correct them on how items are placed. Perfectionism: impaired:stress when things are not a certain way. Impacts ability to function. Initiation of Task: impaired:better at work, due to structure and coworkers. Ct reports more difficulty with task in home environment. Impulsivity: intact. Insight/Awareness of Current Abilities: aware of strengths and weaknesses. Safety Awareness: intact Problem solving and use of strategies: able to identify problems in familiar tasks but struggles toidentify solutions in novel tasks. Functional Movement & Mobility Mobility: Ambulatory. Ct has FND LE weakness and gait disturbance that affect ambulation. Ct needs distant SBA in home and close supervision in community. Fatigue Symptoms: Exhausted with minimal activity and Interferes with Daily Activity Hand Dominance: Right Left Serial Opposition: impaired- pain with ring and pinkie finger, deep in hand. Able to complete on this trial with extra time, but ct reported that she is not always able to do this. Right Serial Opposition: impaired- requires increased effort and caused pain. Upper Extremity Range of Motion Left Right Comments Shoulder (flexion, abduction, rotation) PROM to 90 degrees. >90 degrees triggered FND back and body tics Flexion AROM ~110 degrees. >90 degrees triggered FND back and body tics Sitting posture of B sh has forward flex of shoulders. No winging observed. Elbow Full PROM. 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, 4 extension 4+ flexion 5 extension Wrist 5 flexion Wrist 5 extension End range of B finger extension triggered FND extension of trunk Functional Neurological Symptoms - Full body block during sit to stand - Extensor posturing of trunk - Flexor posturing of trunk - Stuttering with eyes rolling - Dizziness with disorientation - RLE/LLE blocking during gait - RUE/LUE weakness Functional Neurological Trigger id by ct - Stress - Repetitive tasks - Overexerting self Functional Neurological Strategies that help manage symptoms id by ct - None identified at this time Balance Static Sitting Balance: WFL Dynamic Sitting Balance: impaired:loses balance with floor and knee item retrieval Static Standing Balance: WFL Dynamic Standing Balance: impaired: struggles with retrieval in all planes Activities of Daily Living Feeding Moderate Assistance eat with hands, daughter cuts food, skips meals when symptoms are acting up. Hair Hygiene Maximum Assistance, 20-30 second tolerance, intense pain after tolerance ends, requiring help from daughter to complete. Oral Hygiene Modified Independent with leaning strategy. Fatigue after brushing, unable to completefurther tasks without taking an extensive rest break. Shaving Modified Independent, have to do first thing in the shower before fatiguing. Hand Hygiene Independent UE Dressing Modified Independent, for t shirts and bra. Extra time, has difficulty completing additional tasks after this task. LE Dressing Maximum Assistance, assist from daughter to put on and pull pants up if already fatigued. Ct stated she avoids pants with buttons. Ct at times requires less assistance to dress. Ct statedshe sits on bench to don pants. Buttons (1/8 to 1/2 inch) Maximum Assistance Snaps Modified independent, benefits from extra time. Pain and fatigue after doing snap. Zippers: Moderate assist to engage zipper, extra time to pull up zipper. Ct reported avoiding coatswith zippers due to difficulty. UE Bathing Shower. Modified Independent have to wash hair first LE Bathing Shower. Modified Independent Toilet Hygiene Modified Independent, grabs onto bathroom furniture to get up off toilet. Instrumental Activities of Daily Living Meal Prep Stove-top, Oven, Microwave, Cold Prep, Retrieve Items, Open Packages, Pour Liquid, Put Dishes on Table, Hand Wash Dishes and Place Dishes in Workers' Compensation Claims Supervisor. FND trunk and UE symptoms affected meal prep. Dependent to open containers. Dependent to open snack bags. Moderate assist to mix by hand. Maximal assist to put things in the oven. Home Management Put Items Away. Modified Independent. Can sort items. Maximal assist from children to clean house. Attempts to correct chores or fix performance 90% of the time due to perfectionism. Particular about bathroom, kitchen living room, and mail organization. Grocery/Clothing Shopping Supervision from daughter in grocery store. Moderate to maximum assistance to grab items. Utilizes motorized cart during flare-ups with gait disturbance. Laundry Moderate to Maximum assist. Folding or hanging clothes aggravates FND symptoms. Ct starts washer, ct reports needing help to transfer clothing washer to dryer. Ct has top washer and front load dryer. [place] Occupational Performance Measure (COPM) The [place] Occupational Performance Measure (COPM) is a semi-structured interview that explores difficulty with functional tasks in a variety of performance areas. Clients identify areas with whichthey currently struggle and in which would like to improve. They then rate the importance of each activity from 1-10 (1-low importance, 10-high importance). From importance ratings, a list of 3-5 priority areas are identified. Clients then rate priority areas on (1) their current performance level and (2) satisfaction with their current performance level (1-10; 1-low performance, low satisfaction, 10-high performance, high satisfaction). Importance Current Performance Level Current Satisfaction Level Self-Care Personal Care 1. Hair Hygiene: FND symptoms result in fatigue before finishing hair 2. Eating with utensils: Ct reports having to eat with hands 2/2 FND symptoms 3. Dressing: FND symptoms result in fatigue before finish UE and LE dressing Functional Mobility 1. Item retrieval 2. Managing balance while walking Community Management 1. Grocery Shopping 2. 3. Productivity Paid/Unpaid Work 1. Talking on the phone 2. Following directions 3. Household Management 1. Laundry 2. Cooking 3. Cleaning Leisure Quiet Recreation 1. 2. 3. Active Recreation 1. 2. 3. Socialization 1. 2. 3. Priority areas for OT intervention are: 1. COPM scoring will be completed next session. 2. 3. 4. 5 IE Performance Score: COPM scoring will be completed next session. IE Satisfaction Score: .copyist Education provided this session: Client and daughter were educated on: - OT POC for today and next session. - FND triggers and symptoms Client/family verbalized Fair understanding and shows need for further education/reinforcement. ASSESSMENT Client demonstrates impairments in: Coordination, Activity Tolerance, Fine Motor, Flexibility, Gross Motor, Pain, Range of Motion, Sensory, Strength, Cognition, Posture and Vision Environmental Barriers: Home, Work and Community Psychosocial Barriers: Mental Health, Support and Resources Educational needs: ADLs, Community Supports and Medical Condition Management. Client learning preference Audio/Visual, Demonstration and Handouts Due to the above impairments and barriers, Ct is experiencing functional performance deficits in the following areas: Self Care Activities, Leisure Activities, Community Activities, Communication, Home Management, Safety, Work, Functional Mobility and Chronic Disease Self-Management. This is a high complexity OT evaluation due to the above extensive history and occupational profile, 5+ performance deficits/functional concerns identified above, resulting in the following activity limitations and participation restrictions: ADLS ( hair hygiene, eating, dressing, bathing, tolieting), IADLs (cooking, cleaning, laundry), and community integration (talking on phone, shopping). Highly complex OT analysis and clinical decision making to formulate the plan of care, with analysis of above detailed assessment(COPM, MMT/ROM and cognitive and visual screening) , consideration of several treatment options (biomechanical, sensory processing, cognitive behavioral and adaptive accommodat ion), consideration of comorbidities including diabetes mellitus, Idiopathic intracranial hypertension, Hypertensive retinopathy of both eyes, and chronic kidney disease and significant modificationsof tasks and physical/verbal assistance for patient to complete this evaluation. Summary & Clinical Impression: Ct is a 35 y.o. female with Unspecified abnormal involuntary movements [R25.9]. Ct was referred to increase management of FND symptoms to improve success in daily home and community tasks. She is currently managing ADLs with assistance and IADLs with assistance. She would like to improve performance and satisfaction with ADLs and IADLs. Ct will benefit from continued skilled occupational therapy intervention. Rehabilitation/Habilitation Potential:Good Intervention Approach: Establish, Remediation, Wellness and Adaptation Goals for Occupational Therapy Intervention Short Term Goals: Goals Status 1. Ct will maintain a daily log of activities and its effect on her medical condition, 5/7 days a week for 6 wks to id triggers of Functional Neurological Disorder within 2 mths. New (03/11/2021) 2. Ct will state awareness of her [...] Functional Neurological Disorder (FND) within 2 mths. New (03/11/2021) 4. Ct will id trigger for Functional Neurological Disorder (FND) to identify adaptive strategy to manage trigger, 80% of the time within 2 mths. New (03/11/2021) 5. Ct will implement 3-4 adaptive strategies for Functional Neurological Disorder (FND) with min vcto increase managing of FND symptoms within 3 mths. New (03/11/2021) 6. 7. 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 Ct will manage [...] 3/4 weeks within 6 months. New (03/11/2021) PLAN Planned Interventions Therapeutic Activities: Activity Tolerance/Endurance Training, Functional Mobility Training, Self Management, Cognitive Strategies, UE Function, Patient/Caregiver Education and Community/work integration training Therapeutic Exercise: Strengthening, Stretching and Coordination Self care: ADL training and IADL training Plan to further assess: To complete: - Sensory Screener - LE ROM and strength - IADLs - Complete COPM Frequency of OT visits: 1/x week Plan discussed with: Patient and Family Start time: 12:00 End time: 1:58 Cosigned by Kandace Freedman OT at 03/15/2021 12:21 PM CDT documented in this encounter Plan of Treatment Not on file documented as of this encounter Visit Diagnoses Diagnosis Unspecified abnormal involuntary movements- Primary documented in this encounter Historical Medications * This list may reflect changes made after this encounter. TRESIBA 200 unit/mL (3 mL) pen for injection Inject 0.2 mL (40 Units total) under the skin bedtime 01/26/2021 ergocalciferol (VITAMIN D) 50,000 unit capsule Take 1.25 capsules by mouth 2 (two) times a week 01/25/2021 07/02/2021 added in this encounter Orders Outpatient Referral Count Last Ordered Date Fir st Ordered Date AMB REFERRAL ORDER TO OCCUPATIONAL THERAPY 1 03/11/2021 documented in this encounter Care Teams Cigar Packer Relationship Specialty Start Date End Date Andrei Clark MD PCP - General Internal Medicine 12/11/20 Kandace Freedman OT [address] [place] [address] Occupational Therapist Occupational Therapy 03/15/21 documented as of this encounter
--- OUTSIDE RECORDS SUMMARY | 2024-11-17 14:27 | XMS_ITS | Encounter Summary ---
Author Organization [facility] Address [address] [place] [address] Phone Care Team Providers Care Streetcar Repairer Name Role Phone Andrei Clark MD Primary Care Provider [phone] Kandace Freedman OT Unavailable [phone] Christina Brunson MD Unavailable [phone] Reason for Visit * Reason Comments New Patient Encounter Details Date Type Department Care Team (Late st Contact Info) Description 08/29/2022 1:30 PM CDT Office Visit [facility] [address] [facility] Advanced Medicine 13th [place] [address] [place] [address] Michael Jackson MD [address] [facility] [id number] [place] [address] Abnormal uterine bleeding (AUB) (Primary Dx); Cyst of left ovary; Morbid obesity (CMS/HCC) (HCC); Polycystic kidney disease Social History Tobacco Use Types Packs/Day Years [...] on file Legal Sex Female 4:48 PM [employer] Gender Identity Not on file Sexual Orientation Not on file documented as of this encounter Last Filed Vital Signs Vital Sign Reading Time Taken Comments Blood Pressure 169/97 08/29/2022 1:42 PM CDT Pulse 92 08/29/2022 1:42 PM CDT Temperature 37.4 ??C (99.3 ??F) 08/29/2022 1:42 PM CD T Respiratory Rate 16 08/29/2022 1:42 PM CDT Oxygen Saturation 96% 08/29/2022 1:42 PM CDT Inhaled Oxygen Concentration - - Weight 94.8 kg (209 lb) 08/29/2022 1:42 PM CDT Height 165 cm (5' 4.96 ) 08/29/2022 1:42 PM CDT Body Mass Index 34.82 08/29/2022 1:42 PM CDT documented in this encounter Progress Notes * Michael Jackson MD - 08/29/2022 12:00 AM CDT PATIENT: EMMA FIGUEROA : 1985 BRITTANY: 08/29/2022 REASON FOR VISIT: Left adnexal mass. HISTORY OF PRESENT ILLNESS: Ms. Figueroa is a 37-year-old female with a BMI of 34.8 kg/m?? who presented with abdominal left lower quadrant pain and blood in her stool. This prompted her to get a CT scan done at [facility] that demonstrates that she has an 11.8 [...] adnexal mass, the patient is sent to Metallurgical Technician-Oncology for further evaluation. The patient has a [...] least since December 2021. PAST MEDICAL HISTORY: 1. Obesity of 34.8 kg/m??. 2. Hypertension. 3. Anemia, but never required a blood transfusion. 4. Diabetes with a hemoglobin A1c of 7.1 5. Focal awareness seizures. 6. Intracranial hypertension causing headaches. 7. GERD. 8. 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 9. Hereditary stage III kidney problems. 10. Fatty liver. 11. Osteoarthritis. 12. Probable sleep apnea but has never been tested. PAST SURGICAL HISTORY: 1. section 2001, another in 2003. 2. Laparoscopic cholecystectomy in 2005. 3. Tubal ligation with her section in 2003. MEDICATIONS: 1. Trulicity 4.5 mg weekly. 2. Tresiba 40 units at bedtime. 3. Aspirin 81 mg p.o. daily. 4. Bupropion 150 mg p.o. daily. 5. Metformin ER 500 mg twice daily. 6. Farxiga 10 mg daily. 7. Rosuvastatin 10 mg daily. 8. Senna 1 tablet twice daily. 9. Losartan 100 mg daily. 10. Ferrous sulfate 325 mg once daily. 11. Methocarbamol 750 mg 3 times a day. ALLERGIES: She is allergic to all 4 medications for nausea, which are metoclopramide, ondansetron as well as Phenergan and Compazine. 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 Her [...] as 37-year-old female with the following issues. 1. Left adnexal mass: The patient was consented for an exam under anesthesia, diagnostic laparoscopy, left salpingo-oophorectomy, right salpingectomy, possible total laparoscopic hysterectomy, possible exploratory laparotomy, other indicated procedures, possible staging. The patient understands therisks include, but are not limited to bleeding, [...] especially with her other comorbidities. The patient wou ld benefit from not having to need hormone replacement therapy. The patient will consider this and then make her final decision on the day of surgery. 2. Surgical and blood consents were signed today. 3. Diabetes: The patient's hemoglobin A1c overall is well controlled. 4. Abnormal uterine bleeding: The patient's endometrial biopsy that was performed today will be followed up upon to see the patient warrants a hysterectomy. If it is determined that she does need a hysterectomy at the time for sure based on the endometrial biopsy results then the patient will need to be consented for robotic assisted total laparoscopic hysterectomy since the patient has quite a bit of truncal obesity and her prior 2 C-sections may make a laparoscopic hysterectomy more challenging. 5. Pap smear: We will need to obtain those results. 6. Gastrointestinal: The patient will have her colonoscopy prior to surgery. 7. Laboratories: The patient will be sent for a CBC along with an AFP in order to ensure that the patient does have a granulosa cell tumor that might be causing her irregular bleeding. ELECTRONICALLY SIGNED - 08/30/2022 11:10 AM Michael Jackson M.D. Professor, Department of Obstetrics and Gynecology Director of Gynecological Oncology Clinical Research Division of Gynecologic Oncology [facility] PHT/dh/#[id number] cc: ANDREI CLARK MD / / GERARDO SNOW MD / / KAMERON MCDONOUGH MD / documented in this encounter Nursing Notes * Hilda Quintanilla RN - 08/29/2022 1:30 PM CDT Surgery teaching completed in clinic. Pt has received the Covid vaccine takes 81 mg ASA. Pt educated on s/s of infection and when to report symptoms to [place] or call emergency exchange. Pt educated on major prep. Pt given detailed directions to CPAP and surgery registration. Surgery consents scanned into [employer]. documented in this encounter Miscellaneous Notes * Treatment Plan - Michael Jackson MD - 08/29/2022 1:30 PM CDT Please schedule Emma Figueroa for the following: Requested Order Contrast Indication When CXR CT Chest, Abdomen, and Pelvis CT Abdomen and Pelvis LEEP (during clinic hours) PAROLE OFFICER Ultrasound MRI Mammogram PET Initiate Survivoship Care Plan Surveillance Labs (CBC w/ Diff, CMP, Magnesium, CA125) Labwork: inhibin a and b level , cbc today x Need pap result from Dr. Brunson office x documented in this encounter Plan of Treatment Not on file documented as of this encounter Procedures Procedure Name Priority Date/Time Associated Diagnosis Comments POCT HCG, URINE Routine 08/29/2022 3:27 PM CDT Abnormal uterine bleeding (AUB) SURGICAL PATHOLOGY Routine 08/29/2022 12 :00 AM CDT Abnormal uterine bleeding (AUB) documented in this encounter Results * Inhibin A and B (08/29/2022 4:10 PM CDT) Inhibin A 45 pg/mL LUCIEN THIBODEAUX Comment: REFERENCE VALUE <97.5 (Premenopausal) <2.1 ??(Postmenopausal) ADDITIONAL INFORMATION This test has been modified from the assistant front desk manager's instructions. Its performance characteristics were determined by [facility] in a manner consistent with CLIA requirements. This test has not been cleared or approved by the U.S. Food and Drug Administration. The testing method is an immunoenzymatic assay manufactured by [employer] and performed on the [employer] DxI 800. Values obtained with different assay methods or kits may be different and cannot be used interchangeably. ? Test results cannot be interpreted as absolute evidence for the presence or absence of malignant disease. ? Inhibin A values are not interpretable in females for the investigation of malignant disease. Inhibin B <10 pg/mL LUCIEN THIBODEAUX Comment: REFERENCE VALUE Premenopausal: <224 pg/mL (Follicular) <80 pg/mL (Luteal) Postmenopausal: <12 pg/mL ADDITIONAL INFORMATION The testing method is a manual immunoenzymatic assay manufactured by [employer]. Values obtained with different assay methods or kits may be different and cannot be used interchangeably. If this test is being ordered as a tumor marker, results cannot be interpreted as absolute evidence for the presence or absence of malignant disease. This test was developed and its performance characteristics determined by [facility] in a manner consistent with CLIA requirements. This test has not been cleared or approved by the U.S. Food and Drug Administration. Test Performed by: [facility] [address] [place] [address] Plodding Operator: Jose Mejias M.D. Ph.D.; CLIA# [id number] Blood 08/29/2022 4:10 PM CDT 08/29/2022 4:48 PM CDT Michael Jackson MD LAB BLOOD ORDERABLES Fin al Result [facility] Department [place] [address] * POCT hCG, urine (08/29/2022 3:27 PM CDT) [facility] HCG, ur, POC Negative Lot Number [id number] QC Backgroud Clear Acceptable QC Control Line Acceptable Urine 08/29/2022 3:27 PM CDT [facility] POINT OF CARE TEST ORDER MALLORY Final Result * (ABNORMAL) CBC with auto differential (08/29/2022 3:02 PM CDT) [facility] WBC 10.0(H) 3.8 - 9.9 K/cumm [facility] Hgb 12.1 11.9 - 15.5 g/dL [facility] Hct 38.2 35.6 - 45.5 % [facility] Plt 314 150 - 400 K/cumm [facility] MPV 8.7(L) 9.1 - 12.3 fL [facility] RBC 4.60 3.90 - 5.20 M/cumm [facility] MCV 83.0 81.3 - 96.4 fL [facility] MCH 26.3(L) 27.1 - 33.3 pg [facility] MCHC 31.7(L) 32.3 - 35.7 g/dL [facility] RDW CV 15.2(H) 11.1 - 14.9 % [facility] RDW SD 46.4 35.7 - 48.1 fL [facility] NRBC abs 0.00 0.00 - 0.01 K/cumm [facility] Blood 08/29/2022 3:02 PM CDT 08/29/2022 4:23 PM CDT us Premal Elia Jackson MD LAB BLOOD ORDERABLES Fin al Result Performing Organization Address City/State/[facility] Co de Phone Number [facility] Department [place] [address] * Surgical pathology (08/29/2022 12:00 AM CDT) Tissue (Endometrial biopsy) 08/29/2022 08/29/2022 4:36 PM CDT Narrative [facility] - 09/01/2022 10:24 AM CDT Results in EPIC best viewed via PDF link [facility] [address] [place], [place] [id number] Note to Patients: This report may contain [...] PATHOLOGY REPORT FINAL Patient Name: ??EMMA FIGUEROA Tj Address: ??[address] [place] [id number] Gender: ??F : ??1985 (Age: 37) Service: ??WUOTR Location: ??[facility] Hospital #: ??[id number] Accession #: ? [id number] Taken: ? 08/29/2022 Received: ? 08/29/2022 Accessioned: ? 08/30/2022 Reported: ? 09/01/2022 Physician(s): ? Michael Jackson M.D. Diagnosis: Endometrium, biopsy ? - Scant and rare fragments of unremarkable endometrial glands ? - Endocervical tissue with acute and chronic inflammation and squamous metaplasia ? - No evidence of dysplasia, hyperplasia or malignancy 08/31/2022 08:56 By this signature, I attest that the above diagnosis is based upon my personal examination of the slides(and/or other material indicated in the diagnosis). Erasmo Nava M.D., Ph.D. Report Electronically Reviewed and Signed Out By Erasmo Nava M.D., Ph.D. 09/01/2022 10:24:45 Microscopic Description and Comment: Microscopic examination substantiates the above cited diagnosis. Scott Steele M.D. History: The patient is a 37 year-old woman with a history of abnormal uterine bleeding and 12 cm left ovarian cystic mass. Specimen(s) Received: A: Endometrium Gross Description: The specimen is received in a formalin-filled container labeled Brant, Emma and EMBX. ??It contains multiple fragments of hirsch-brown material mixed with mucous measuring 1.6 x 0.7 x 0.3 cm in aggregate. ??Labeled A1. ??Jar 0. ??08/30/2022 14:15 Pathology services are provided by the Department of Pathology and Immunology at [facility], [address] [place] [address] CLIA # [id number] The performance characteristics of the testing cited in this report (if any) were determined by the ??[facility] Department of Pathology and Immunology [facility], as part of an ongoing fiberglass quality technician program and in compliance with federally mandated [...] and the performance characteristics determined by the [facility], [facility] Department of Pathology and Immunology. ??It has not been cleared or approved by the U.S. Food and Drug Administration. ??Any test designated as LDT was developed and its performance characteristics determined by [facility]. It has not been cleared or approved by the FDA. This test is used for clinical purposes and should not be regarded as investigational or for research. us [facility] Elia Jackson MD LAB PATHOLOGY ORDERABLES Final Result Performing Organization Address City/State/[facility] Co de Phone Number [facility] [address] [place] [address] documented in this encounter Visit Diagnoses Diagnosis Abnormal uterine bleeding (AUB)- Primary Cyst of left ovary Other and unspecified ovarian cyst Morbid obesity (HCC) Morbid obesity Polycystic kidney disease Congenital polycystic kidney, unspecified type documented in this encounter Discontinued Medications Medication Sig Discontinue Reason Start Date End Da te Trulicity 3 mg/0.5 mL pen injector INJECT 1 SUB Q ONCE A WEEK IN THE MORNING Duplicate order 05/28/2021 08/29/2022 documented as of this encounter Historical Medications * This list may reflect changes made after this encounter. senna (SENOKOT) 8.6 mg tablet Take 1 tablet by mouth daily valACYclovir (VALTREX) 500 mg tablet valacyclovir 500 mg tablet TAKE 1 TABLET BY MOUTH TWICE DAILY FOR 7 DAYS (NEEDS APPT FOR FURTHER REFILLS) methocarbamoL (ROBAXIN) 750 mg tablet Take 1 tablet (750 mg total) by mouth 3 (three) times a day as needed 07/22/2022 losartan (COZAAR) 100 mg tablet Take 1 tablet (100 mg total) by mouth every morning 08/01/2022 lactulose 0.67 gram/mL solution Take by mouth daily as needed 07/18/2022 Trulicity 4.5 mg/0.5 mL pen injector Inject 4.5 mg under the skin once a week 08/08/2022 4 NIFEdipine (PROCARDIA XL/ADALAT CC) 30 mg 24 hr tablet nifedipine ER 30 mg tablet,extended release TAKE 1 TABLET BY MOUTH ONCE DAILY ON AN EMPTY STOMACH 2 added in this encounter Care Teams Streetcar Repairer Relationship Specialty Start Date End Date Andrei Clark MD PCP - General Internal Medicine 12/11/20 Kandace Freedman OT [address] [place] [address] Occupational Therapist Occupational Therapy 03/15/21 Christina Brunson MD [address] [place] [address] Obstetrics and Gynecology 08/02/22 documented as of this encounter
--- OUTSIDE RECORDS SUMMARY | 2024-11-17 14:27 | XMS_ITS | Encounter Summary ---
Author Organization [facility] Address [address] [place] [address] Phone Care Team Providers Care Blade Filer Name Role Phone Andrei Clark MD Primary Care Provider [phone] Reason for Referral * Consultation (Routine) - Closed Specialty Diagnoses / Procedures Referred By Tiburcio caicedo Referred To Contact Occupational Therapy Diagnoses Unspecified abnormal involuntary movements Dioni Pérez MD PhD [address] [place] [address] Phone: tel: fax: Mary Peña OT [address] [place] [address] Phone: tel: fax: Referral ID Status Reason Start Date Expiration Date V isits Requested Visits Authorized [id number] Closed Specialty Services Required 02/04/2021 03/06/2022 24 24 Question Answer PTRFR OT Evaluate and Treat Reason for Visit evaluate and treat probable functional neurologic disorder with modalities at therapist's discretion including cognitive behavioral therapy Therapy options discussed with patient? Yes Location provided for therapy services is: Patient requested/Patient preferred Please select the performing region: [facility] (All Locations) [[id number]] Please select the performing department: [facility] [id number] [[id number]] To provider: MARY PEÑA [[id number]] # of visits: 24 Encounter Details Date Type Department Care Team (Late st Contact Info) Description 02/04/2021 Orders Only [facility] Movement Disorders [address] [facility] 6th [place] [address] [place] [address] Dioni Pérez MD PhD [address] [place] [address] Unspecified abnormal involuntary movements (Primary Dx) Social [...] on file 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 Esau Elizabeth from her video EEG admission which showed no epileptiform abnormality correlated with spells of involuntary movements captured during the monitoring. See additional details from inpatient video EEG discharge summary dated 01/31/21. Based on this assessment, and my clinical impression (see additional details in my office note dated 12/30/20), I think it is reasonable that many of her symptoms could be part of a functional neurologic disorder. I discussed this with her by phone today, including etiology, differential diagnosis, and management approaches including cognitive behavioral therapy. She was receptive to this plan and wished to proceed with referral to occupational therapy for cognitive behavioral therapy to evaluate and treat functional neurologic disorder. I will place the referral to JOSE MIGUEL Dela Cruz/Esmer at [facility] Occupational Therapy. I will plan to see her back in approximately 1 year and can be available to discuss impression and management in the meantime. documented in this encounter Plan of Treatment Scheduled Referrals Name Type Priority Associated Diagnoses Orde r Schedule Ambulatory referral order to Occupational Therapy - Outpatient Referral Routine Unspecified abnormal involuntary movements Expected: 02/18/2021 (Approximate), Expires: 02/04/2022 documented as of this encounter Visit Diagnoses Diagnosis Unspecified abnormal involuntary movements- Primary documented in this encounter Care Teams Blade Filer Relationship Specialty Start Date End Date Andrei Clark MD PCP - General Internal Medicine 12/11/20 documented as of this encounter
--- OUTSIDE RECORDS SUMMARY | 2024-11-17 14:27 | XMS_ITS | Encounter Summary ---
Author Organization [facility] Address [address] [place] [address] Phone Care Team Providers Care Marinator Name Role Phone Andrei Clark MD Primary Care Provider [phone] Kandace Freedman OT Unavailable [phone] Reason for Visit * Reason Onset Date Comments No Show 04/22/2021 Encounter Details Date Type Department Care Team (Late st Contact Info) Description 04/22/2021 Telephone [facility] Occupational Therapy [address] [place] [address] Mayda Wahl, OT [address] [place] [address] No Show Social History Tobacco Use Types [...] on file 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
--- OUTSIDE RECORDS SUMMARY | 2024-11-17 14:27 | XMS_ITS | Encounter Summary ---
Author Organization [facility] Address [address] [place] [address] Phone Care Team Providers Care Warehouse Traffic Supervisor Name Role Phone Andrei Clark MD Primary Care Provider [phone] Kandace Freedman OT Unavailable [phone] Reason for Visit * Reason Onset Date Comments OT Discharge 12/30/2021 Encounter Details Date Type Department Care Team (Late st Contact Info) Description 12/30/2021 Documentation [facility] Occupational Therapy [address] [place] [address] Kandace Freedman, OT [address] [place], [place] [id number] OT Discharge Social History Tobacco Use Types Packs/Day Years [...] on file 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 Unspecified abnormal involuntary movements 781.0 R25.9 OT Start Date: 03/11/21 Last OT Visit: 06/04/21 Cancellations: 3 No Shows: 3 Number of Visits: 3 Goals for Occupational Therapy Intervention Short Term Goals: Goals Status 1. Ct will maintain a daily log of activities and its effect on her medical condition, 5/7 days a week for 6 wk's to id triggers of Functional Neurological Disorder within 2 mths. Met on 11/20 wks. Partially Achieved (12/30/2021) 2. Ct will state awareness of her body signs for heart rate (pulse/heart beat), tempeture change, hunger/thirst (stomach, HASTINGS, dryness of mouth), and tiredness (eyes or body heavy), 80% of the time, per parent and ct report on 2/3 wks in 3 mths. Not Achieved (12/30/2021) 3. Ct will maintain a daily log of eating and drinking and its effect on her medical condition, 5/7days a week for 6 wks to id triggers of Functional Neurological Disorder (FND) within 2 mths. Met on 11/20 wks. Partially Achieved (12/30/2021) 4. Ct will id trigger for Functional Neurological Disorder (FND) to identify adaptive strategy to manage trigger, 80% of the time within 2 mths. ID ed: -light on 2 wks -heat -trauma/stress - being interpreted when working on task on 11/20 wks. Achieved (12/30/2021) 5. Ct will implement 3-4 adaptive strategies for Functional Neurological Disorder (FND) with min vcto increase managing of FND symptoms within 3 mths. Id: - purse lip breathing - visualization - postural bed strategies - postural desk strategies - light management strategies Achieved (12/30/2021) Skiver Operator Goals: Goals Status 1. Ct will manage triggers for Functional Neurological Disorder, 80% of the time within 4 mths. NotAchieved (12/30/2021) 2. Ct will brush and style her hair using 1-2 adaptive strategies with 80% success for 3/4 weeks within 4 months. Not Achieved (12/30/2021) 3. Ct will eat with utensils using 1-2 adaptive strategies with 80% success for 3/4 weeks within 5 months. Not Achieved (12/30/2021) 4. Ct will UE and LE dressing using 3-4 adaptive strategies with 80% success for 3/4 weeks within 6months. Not Achieved (12/30/2021) 5. Ct will cook a 2-3 step meal using 3-4 adaptive strategies with 80% success for 3/4 weeks within6 months. Not Achieved (12/30/2021) 6. Ct will complete laundry using 3-4 adaptive strategies with 80% success for 3/4 weeks within 6 months. Not Achieved (12/30/2021) 7. Ct will talk using 1-2 adaptive strategies to manage FND symptoms to continue conversation with 80% success on 3/4 weeks within 5 months. Not Achieved (12/30/2021) 8. Ct will shop for 10 items using 1-2 adaptive strategies with 80% success for 3/4 weeks within 6 months. Not Achieved (12/30/2021) The patient has discontinued coming to therapy or has elected to not schedule additional appointments. Plan is to discontinue occupational therapy treatment. Kandace Freedman OT ER COMPOUNDER SUPERVISOR documented in this encounter Plan of Treatment Not on file documented as of this encounter Visit Diagnoses Diagnosis Unspecified abnormal involuntary movements- Primary documented in this encounter Care Teams Warehouse Traffic Supervisor Relationship Specialty Start Date End Date Andrei Clark MD PCP - General Internal Medicine 12/11/20 Kandace Freedman OT [address] [place] [address] Occupational Therapist Occupational Therapy 03/15/21 documented as of this encounter
--- OUTSIDE RECORDS SUMMARY | 2024-11-17 14:27 | XMS_ITS | Encounter Summary ---
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 Name Role Phone Andrei Clark MD Primary Care Provider [phone] Kandace Freedman OT Unavailable [phone] Reason for Visit * Reason Comments Follow-up involuntary movement s Encounter Details Date Type Department Care Team (Late st Contact Info) Description 07/02/2021 1:00 PM CDT Office Visit [facility] Movement Disorders [address] [place] [id number] Arabella Rod, YAMIL [address] [place] [address] Unspecified abnormal involuntary movements (Primary Dx); Anxiety disorder, unspecified type Social History Tobacco Use Types Packs/Day Years [...] on file Legal 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 Gender Identity Not on file Sexual Orientation Not on file documented as of this encounter Last Filed Vital Signs Vital Sign Reading Time Taken Comments Blood Pressure 133/102 07/02/2021 1:11 PM CDT Pulse 120 07/02/2021 1:11 PM CDT Temperature 37.1 ??C (98.8 ??F) 07/02/2021 1:11 PM CD T Respiratory Rate - - Oxygen Saturation - - Inhaled Oxygen Concentration - - Weight 92.1 kg (203 lb) 07/02/2021 1:11 PM CDT Height 162.6 cm (5' 4 ) 07/02/2021 1:11 PM CDT Body Mass Index 34.84 07/02/2021 1:11 PM CDT documented in this encounter Progress Notes * Arabella Rod NP - 07/02/2021 1:00 PM CDT [facility] Office Visit Patient: Kylee Guo Referred by: Andrei Clark MD : 1985 Visit Date: 07/02/2021 Clinician: Arabella Rod NP Chief Complaint Kylee Guo is a 36 y.o. female who presents for Follow-up (involuntary movements) Hand Dominance: Referred by Andrei Clark MD. Her PMD is Andrei Clark MD. HPI: She still has some involuntary movements. Her right leg can kick out when she is trying to talk. She feels a sense that she has to move her hands when talking. She feels like her eyes flutter and she cannot keep eye contact. She feels seizures come on at times and she goes into her right armflopping. She doesn't lose consciousness but it seems like the sound of things happening is decreased. The aura with her hand can last 10 minutes and she warns people it is coming and that she willnot be able to talk. Spells can last 2 minutes but sometimes just 30 seconds. Separately, her left hand can sometimes clench but she is still able to get it back open. When walking, she feels like she cannot bend her knees. She has twitching of her upper body but sometimes she can only see it in her right side because the left side feels tired. She gets burning pain in her thighs. She was taking gabapentin for diabetic nerve pain and her BP went sonia high so this was stopped. Her toes can curlup in in her left shoe when walking and this is painful. She feels like she has to force words out when she is speaking and speaking makes her head hurt. She has pain in her diaphragm to talk or whenshe stands and her muscles feel tight and tired. She feels a lot more trouble trying to push out urine or stool because it hurts her diaphragm. She has about one BM per week at this point and she used to have daily BMs. She is drinking plenty of water and getting fiber in her diet. Bladder has beenfine. She has history of migraines, pituitary tumors. Appetite is pretty good--Trulicity helps her to eat less. Sleep at night is sometimes problematic. Sometimes, she doesn't sleep at all. The muscles in her face and her throat hurt when she is laying down doing nothing. She is taking trazodone and melatonin but she could sleep for 16 hours when she takes both. Mood and spirits are not good. She is working with her psychiatrist on her meds, she just had her bupropion increased and she also takes sertraline. She has more anxiety and this is very problematic.She has no thoughts of and suicide. Thinking and memory are not as good, she has more troublecoming up with words and getting what she is trying to say out of her mouth. Sometimes, she says the wrong word or talks like a 4 year old She knows what she wants to say but it doesn't always comeout right. 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 Her other doctors have told her to go on disability short term. When she is not doing work, her symptoms seem better. Current Outpatient Medications Medication Sig Dispense Refill ??? aspirin 81 mg enteric coated tablet ??? blood glucose diagnostic (OneTouch Ultra Blue Test Strip) strip USE A TEST STRIP TO TEST BLOOD SUGAR 3 TO 4 TIMES DAILY BEFORE MEALS ??? buPROPion XL (WELLBUTRIN XL) 150 mg 24 hr tablet TAKE 1 TABLET BY MOUTH ONCE DAILY IN THE MORNING ??? dapagliflozin (Farxiga) 10 mg tablet Farxiga 10 mg tablet Take 1 tablet every day by oral route in the morning for 90 days. ??? dilTIAZem (CARDIZEM) 30 mg tablet diltiazem 30 mg tablet TAKE 1 TABLET BY MOUTH TWICE DAILY ??? fenofibrate (TRIGLIDE) 160 mg tablet TAKE 1 TABLET BY MOUTH ONCE DAILY AT BEDTIME FOR 30 DAYS ??? losartan-hydrochlorothiazide (HYZAAR) 100-25 mg per tablet TAKE 1 TABLET BY MOUTH ONCE DAILY FOR 30 DAYS ??? metFORMIN XR (GLUCOPHAGE XR) 500 mg 24 hr tablet Take 500 mg by mouth daily with breakfast ??? rosuvastatin (CRESTOR) 10 mg tablet rosuvastatin 10 mg tablet TAKE 1 TABLET BY MOUTH ONCE DAILY IN THE EVENING ??? sertraline (ZOLOFT) 100 mg tablet sertraline 100 mg tablet TAKE 1 TABLET BY MOUTH ONCE DAILY FOR 30 DAYS ??? traZODone (DESYREL) 100 mg tablet trazodone 100 mg tablet TAKE 1 TABLET BY MOUTH EVERY DAY AT BEDTIME NEEDED FOR 30 DAYS ??? TRESIBA 200 unit/mL (3 mL) pen for injection Inject 60 Units under the skin bedtime ??? Trulicity 3 mg/0.5 mL pen injector INJECT 1 SUB Q ONCE A WEEK IN THE MORNING No current facility-administered medications for this visit. Allergies Allergen Reactions ??? Metoclopramide Anxiety ??? Ondansetron Anxiety ??? Phenergan [Promethazine] Anxiety ??? Prochlorperazine Anxiety Past Medical History: Diagnosis Date ??? CKD (chronic kidney disease) stage 2, GFR 60-89 ml/min ??? Diabetes mellitus (HCC) ??? DVT (deep venous thrombosis) (CMS/HCC) (HCC) ??? Idiopathic intracranial hypertension ??? Pituitary tumor [...] education level: None Occupational History ??? None Tobacco Use ??? Smoking status: Former Smoker Types: Cigarettes Quit date: 06/01/2019 Years since quittin.0 ??? Smokeless tobacco: Never Used Substance and Sexual Activity ??? Alcohol use: Never ??? Drug use: Never ??? Sexual activity: None Other Topics Concern ??? None Social History Narrative ??? None Social Determinants of Health Financial Resource Strain: [...] Gatherings with Friends and Family: ??? Attends [employer] Services: ??? Active Member of Clubs or Organizations: ??? Attends Club or Organization Meetings: ??? Marital Status: Intimate Partner Violence: ??? Fear of Current or Ex-Partner: ??? Emotionally Abused: ??? Physically Abused: ??? Sexually Abused: Review of Systems Constitutional: Positive for fatigue. HENT: Positive for trouble swallowing and voice change. Musculoskeletal: Positive for arthralgias, gait problem and myalgias. Neurological: Positive for tremors, speech difficulty, weakness, numbness and headaches. Psychiatric/Behavioral: Positive for decreased concentration, dysphoric mood and sleep disturbance. Vitals BP (!) 133/102 (BP Location: Right arm, Patient Position: Sitting) Pulse 120 Temp 37.1 ??C (98.8 ??F) (Temporal) Ht 162.6 cm (5' 4 ) Wt 92.1 kg (203 lb) BMI 34.84 kg/m?? Physical Exam Vitals reviewed. Constitutional: Appearance: Normal appearance. Eyes: Pupils: Pupils are equal, round, and reactive to light. Pulmonary: Effort: Pulmonary effort is normal. Musculoskeletal: General: Normal range of motion. Skin: General: Skin is warm and dry. Neurological: Mental Status: She is alert. Mental Status LOC: Alert Attention: Normal Speech: Abnormal Pressured: Mild Stutter: Mild Increased variability of rhythm: Mild Increased variability of intonation: Mild Periodic interruptions of speech: Occasional Language: Normal Intellect: Normal Affect: Abnormal Affect Tone: sad and tearful Affect Range: constricted Mood: Abnormal Mood Details: depressed, anxious Thought Content: Normal Thought Process: Normal Cranial Nerves Pupils Right: 4 Pupils Left: 4 Shape - Right: Round Shape - Left: Round Cranial Nerves Continued Facial Strength - Both: Normal Motor - Voluntary Muscle Bulk: Normal Tone: Abnormal (She resisted.) Motor - Involuntary Part 1 Ballismus: Absent Chorea: Absent Dystonia: Present Dystonia At Rest - Face: 1 - Slight/Intermittent Dystonia At Rest - Neck: 0 - Absent Dystonia At Rest - Trunk: 0 - Absent Dystonia At Rest - RUE: 0 - Absent Dystonia At Rest - LUE: 3 - Moderate/Common Dystonia At Rest - RLE: 0 - Absent Dystonia W/Action - Face: 1 - Slight/Intermittent Dystonia W/Action - TRUNK: 1 - Slight/Intermittent Dystonia W/Action - RUE: 1 - Slight/Intermittent Dystonia W/Action - LUE: 4 - Marked/Prolonged Dystonia W/Action - RLE: 4 - Marked/Prolonged Dystonia W/Action - LLE: 4 - Marked/Prolonged Tics: Present (It is difficult to say whether her jerks are tics are not--she has little ability tosuppress.) Motor - Involuntary Part 2 Myoclonus: Absent Sensory Exam Temperature: Normal Light Touch: Normal Coordination Tremor-Resting: Absent Tremor - Action: Absent [id number]-[id number]-Sezoda: (She was slow) Gait Gait: 5 - abnormal Gait Details: stiff-legged Base: normal Initiation Starting: slight hesitation Initiation Turning: moderate hesitation Initiation Walking Through Doorway: slight hesitation Initiation Walking Straight: slight hesitation Steps: Normal Reflexes Knees - Right: 2 - normal Knees - Left: 2 - normal Assessment/Plan Diagnoses and all orders for this visit: Unspecified abnormal involuntary movements (R25.9) (Primary) Assessment & Plan: She has abnormal involuntary movements including vocalizations, stuttering, single movements, jerksand posturing of head, neck, trunk, and limbs [...] this with Dr. Pérez. Recs: 1. Call [facility] to make appt (she understands she needs to be the one to call) for CBT for FND, anxiety, depression. 2. Consider Valium after I discuss with Dr. Pérez. 3. Continue with psychiatry. 4. Start positive self talk and meditative exercises for spells . Anxiety disorder, unspecified type (F41.9) Return in about 5 months (around 11/30/2021) for zoom visit. 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 I would not recommend a benzodiazepine for these spells. documented in this encounter Miscellaneous Notes * Assessment & Plan Note - Arabella Rod NP - 07/02/2021 12:44 PM CDT Associated Problem(s): Unspecified abnormal involuntary movements She has abnormal involuntary movements including vocalizations, stuttering, single movements, jerksand posturing of head, neck, trunk, and limbs [...] this with Dr. Pérez. Recs: 1. Call [facility] to make appt (she understands she needs to be the one to call) for CBT for FND, anxiety, depression. 2. Consider Valium after I discuss with Dr. Pérez. 3. Continue with psychiatry. 4. Start positive self talk and meditative exercises for spells . documented in this encounter Plan of Treatment Not on file documented as of this encounter Visit Diagnoses Diagnosis Unspecified abnormal involuntary movements- Primary Anxiety disorder, unspecified type documented in this encounter Discontinued Medications Medication Sig Discontinue Reason Start Date End Da te dulaglutide (TRULICITY) 1.5 mg/0.5 mL pen injector 0.5 mL 06/30/2021 losartan (COZAAR) 100 mg tablet losartan 100 mg tablet TAKE 1 TABLET BY MOUTH ONCE DAILY 05/31/2020 06/30/2021 hydroCHLOROthiazide (HYDRODIURIL) 12.5 mg tablet Take 12.5 mg by mouth daily 06/30/2021 buPROPion (WELLBUTRIN) 75 mg tablet bupropion HCl 75 mg tablet TAKE 1 TABLET BY MOUTH IN THE MORNING FOR 30 DAYS 07/02/2021 amLODIPine (NORVASC) 5 mg tablet Take 10 mg by mouth daily 07/02/2021 HYDROcodone-acetamino phen (NORCO) 5-325 mg per tabletIndications:Gina n Take 1 tablet by mouth every 6 (six) hours as needed 07/02/2021 furosemide (LASIX) 20 mg tablet Take 20 mg by mouth daily as needed 07/02/2021 fluticasone (FLONASE) 50 mcg/actuation nasal spray 11/30/2018 07/02/2021 glimepiride (AMARYL) 1 mg tablet TAKE 2 TABLETS BY MOUTH TWICE DAILY BEFORE MEAL(S) 09/24/2020 07/02/2021 icosapent ethyL (VASCEPA) 1 gram capsule Take 0.5 g by mouth 2 (two) times a day Take 4 caps twice daily 07/02/2021 ergocalciferol (VITAMIN D) 50,000 unit capsule Take 1.25 capsules by mouth 2 (two) times a week 01/25/2021 07/02/2021 amitriptyline (ELAVIL) 25 mg tablet amitriptyline 25 mg tablet TAKE 1 TABLET BY MOUTH ONCE DAILY AT BEDTIME 07/02/2021 clorazepate (TRANXENE) 7.5 mg tablet clorazepate dipotassium 7.5 mg tablet TAKE 1 TABLET BY MOUTH THREE TIMES DAILY 07/02/2021 dexAMETHasone (DECADRON) 1 mg tablet dexamethasone 1 mg tablet TAKE 1 TABLET BY MOUTH NEEDED AT BEDTIME FOR 1 DAY 07/02/2021 gabapentin (NEURONTIN) 100 mg capsule gabapentin 100 mg capsule TAKE 1 CAPSULE BY MOUTH THREE TIMES DAILY 07/02/2021 OneTouch Delica Plus Lancet 33 gauge [facility] USE LANCETS TO CHECK GLUCOSE 3 TO 4 TIMES DAILY BEFORE MEALS 2021 07/02/2021 LORazepam (ATIVAN) 1 mg tablet lorazepam 1 mg tablet TAKE 1 TABLET BY MOUTH PRE PROCEDURE ONCE FOR 1 DOSE 07/02/2021 metoprolol XL (TOPROL-XL) 25 mg extended release tablet metoprolol succinate ER 25 mg tablet,extended release 24 hr TAKE 1 TABLET BY MOUTH ONCE DAILY 07/02/2021 documented as of this encounter Historical Medications * This list may reflect changes made after this encounter. buPROPion XL (WELLBUTRIN XL) 150 mg 24 hr tablet Take 1 tablet (150 mg total) by mouth every morning 06/21/2021 traZODone (DESYREL) 100 mg tablet Take 1 tablet (100 mg total) by mouth nightly as needed dapagliflozin (FARXIGA) 10 mg tablet Take 1 tablet (10 mg total) by mouth every morning Trulicity 3 mg/0.5 mL pen injector INJECT 1 SUB Q ONCE A WEEK IN THE MORNING 05/28/2021 2 metoprolol XL (TOPROL-XL) 25 mg extended release tablet metoprolol succinate ER 25 mg tablet,extended release 24 hr TAKE 1 TABLET BY MOUTH ONCE DAILY 1 losartan-hydroch lorothiazide (HYZAAR) 100-25 mg per tablet TAKE 1 TABLET BY MOUTH ONCE DAILY FOR 30 DAYS 05/28/2021 2 LORazepam (ATIVAN) 1 mg tablet lorazepam 1 mg tablet TAKE 1 TABLET BY MOUTH PRE PROCEDURE ONCE FOR 1 DOSE 1 OneTouch Delica Plus Lancet 33 gauge [facility] USE LANCETS TO CHECK GLUCOSE 3 TO 4 TIMES DAILY BEFORE MEALS 2021 1 gabapentin (NEURONTIN) 100 mg capsule gabapentin 100 mg capsule TAKE 1 CAPSULE BY MOUTH THREE TIMES DAILY 1 fenofibrate (TRIGLIDE) 160 mg tablet TAKE 1 TABLET BY MOUTH ONCE DAILY AT BEDTIME FOR 30 DAYS 05/20/2021 2 dilTIAZem (CARDIZEM) 30 mg tablet diltiazem 30 mg tablet TAKE 1 TABLET BY MOUTH TWICE DAILY 2 dexAMETHasone (DECADRON) 1 mg tablet dexamethasone 1 mg tablet TAKE 1 TABLET BY MOUTH NEEDED AT BEDTIME FOR 1 DAY 1 clorazepate (TRANXENE) 7.5 mg tablet clorazepate dipotassium 7.5 mg tablet TAKE 1 TABLET BY MOUTH THREE TIMES DAILY 1 buPROPion (WELLBUTRIN) 75 mg tablet bupropion HCl 75 mg tablet TAKE 1 TABLET BY MOUTH IN THE MORNING FOR 30 DAYS 1 blood glucose diagnostic strip USE A TEST STRIP TO TEST BLOOD SUGAR 3 TO 4 TIMES DAILY BEFORE MEALS 2021 2 amitriptyline (ELAVIL) 25 mg tablet amitriptyline 25 mg tablet TAKE 1 TABLET BY MOUTH ONCE DAILY AT BEDTIME 1 added in this encounter Care Teams 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
--- OUTSIDE RECORDS SUMMARY | 2024-11-17 14:27 | XMS_ITS | Encounter Summary ---
Author Organization [facility] Healthcare Address [address] [place] [address] Care Team Providers Care Hims Coder Name Role Phone Andrei Clark MD Primary Care Provider [phone] Encounter Details Date Type Department Care Team (Late st Contact Info) Description 01/22/2021 7:53 AM HIGH LIFT DRIVER - 01/22/2021 5:32 PM HIGH LIFT DRIVER Hospital Encounter [facility] OP INTERIM Jose Norman MD [address] [facility] [address] [address] Discharge Disposition: Discharge to home or self care Social History Tobacco Use Types Packs/Day Years Used Date Smoking Tobacco: Never Assessed AUDIT-C Answer Date Recorded Frequency of Alcohol Consumption Never 12/30/2020 Average Number of Drinks Not on file 021 Frequency of Binge Drinking Not on file 12/21 Comments No Sex and Gender Information Value Date Recorded Sex Assigned at Not on file Legal Sex Female 4:48 PM HIGH LIFT DRIVER Gender Identity Not on file Sexual Orientation Not on file documented as of this encounter Last Filed Vital Signs Vital Sign Reading Time Taken Comments Blood Pressure 120/70 11/16/2020 8:25 AM HIGH LIFT DRIVER Pulse 101 11/16/2020 8:25 AM HIGH LIFT DRIVER Temperature 36.7 ??C (98 ??F) 11/16/2020 8:25 AM HIGH LIFT DRIVER Respiratory Rate - - Oxygen Saturation 97% 11/16/2020 8:25 AM HIGH LIFT DRIVER Inhaled Oxygen Concentration - - Weight 94.8 kg (209 lb) 11/16/2020 8:25 AM HIGH LIFT DRIVER Height 162.6 cm (5' 4 ) 11/16/2020 8:25 AM HIGH LIFT DRIVER Body Mass Index 35.87 11/16/2020 8:25 AM HIGH LIFT DRIVER documented in this encounter Medications at Time of Discharge aspirin 81 mg enteric coated tablet Take 1 tablet (81 mg total) by mouth every morning 12/28/2020 metFORMIN XR (GLUCOPHAGE XR) 500 mg 24 hr tablet Take 1 tablet (500 mg total) by mouth daily with breakfast rosuvastatin (CRESTOR) 10 mg tablet Take 1 tablet (10 mg total) by mouth every morning 07/16/2020 acetaZOLAMIDE (DIAMOX) 250 mg tablet Take 250 mg by mouth 2 (two) times a day 1 amLODIPine (NORVASC) 5 mg tablet Take 10 mg by mouth daily 1 cephalexin (KEFLEX) 500 mg capsule 02/07/2019 1 DOXYCYCLINE 100 mg tablet 02/20/2019 1 dulaglutide (TRULICITY) 1.5 mg/0.5 mL pen injector 0.5 mL 1 fluticasone (FLONASE) 50 mcg/actuation nasal spray [...] day Take 4 caps twice daily 1 insulin degludec (TRESIBA) 200 unit/mL (3 mL) insulin pen Tresiba FlexTouch U-200 insulin 200 unit/mL (3 mL) subcutaneous pen 06/12/2020 1 levETIRAcetam (KEPPRA) 750 mg tablet 2 (two) times a day 12/28/2020 1 losartan (COZAAR) 100 mg tablet losartan 100 mg tablet TAKE 1 TABLET BY MOUTH ONCE DAILY 05/31/2020 1 metFORMIN (GLUCOPHAGE) 500 mg tablet Take 500 mg by mouth 08/14/2014 1 metoprolol (LOPRESSOR) 25 mg tablet 02/20/2019 1 POTASSIUM CHLORIDE ER 10 mEq CR tablet 02/20/2019 1 propranolol (INDERAL) 20 mg tablet Take 20 mg by mouth daily 1 sertraline (ZOLOFT) 100 mg tablet sertraline 100 mg tablet TAKE 1 TABLET BY MOUTH ONCE DAILY FOR 30 DAYS 2 documented as of this encounter Discharge Disposition Disposition Code Departure Means Destination Discharge to home or self care documented in this encounter Plan of Treatment Not on file documented as of this encounter Procedures Procedure Name Priority Date/Time Associated Diagnosis Comments CARDIOLOGY REPORT 01/29/2021 12: 00 AM HIGH LIFT DRIVER CARDIAC CATHETERIZATION 01/23/20 21 10:24 AM HIGH LIFT DRIVER B ABO / RH CONFIRMATION TESTING Routine 01/22/2021 9:00 AM HIGH LIFT DRIVER ECG 12-LEAD 01/22/2021 8:55 AM HIGH LIFT DRIVER CBC WITH AUTO DIFFERENTIAL Routine 01/22/2021 8:24 AM HIGH LIFT DRIVER APTT Routine 01/22/2021 8:24 AM HIGH LIFT DRIVER PROTIME-INR Routine 01/22/2021 8:24 AM HIGH LIFT DRIVER ANTIBODY SCREEN Routine 01/22/2021 8:24 AM HIGH LIFT DRIVER TYPE AND SCREEN Routine 01/22/2021 8:24 AM HIGH LIFT DRIVER HCG, BLOOD, QUANTITATIVE Routine 01/22/2021 8:24 AM HIGH LIFT DRIVER BASIC METABOLIC PANEL Routine 01/22/2021 8:24 AM HIGH LIFT DRIVER PROCEDURE - RESULT 01/22/2021 12 :00 AM HIGH LIFT DRIVER CARDIOLOGY REPORT 01/22/2021 12: 00 AM HIGH LIFT DRIVER documented in this encounter Results * CARDIOLOGY REPORT (01/29/2021 12:00 AM HIGH LIFT DRIVER) Anatomical Region Laterality Modality Other Narrative 01/29/2021 12:00 AM HIGH LIFT DRIVER Ordered by an unspecified provider. us Historical Provider [facility] ZULEIMA CHANDLER Final Result * Cardiac Catheterization (01/22/2021 10:24 AM HIGH LIFT DRIVER) Anatomical Region Laterality Modality X-Ray Angiograph y 01/22/2021 10:2 4 AM HIGH LIFT DRIVER Narrative 01/22/2021 10:24 AM HIGH LIFT DRIVER ? Patient Name: HENRY,KYLEE R ? MR#: [id number] ?? 8 ? Status: REG SDC ? D.O.B: 1985 Age: ??35 ?Sex: Female ? ADM/SER Dt: 01/22/21 ?Disch Dt: ? LOC: H.CATH ? Procedure Report ?? Jose Norman MD ? Signed ? Report Created: 01/22/21 1025 ?? Service Date/Time: 01/22/21 1024 ? Cardiology Procedure Note ?? Date of Procedure: 01/22/21 ?? Pre-Proc. Dx/Indications: CP, abnormal stress and coronary CTA ?? Post-Proc. Dx/Impression: Nonobstructive CAD, diastolic dysfunction ?? Procedure Performed: LHC, coronaries ?? Electrotype Finisher: Ester ?? Anesthesia: Conscious sedation ?? Complications: None ?? Disposition of Case: Stable-to recovery ?? Procedure Description/Outcome: ?? INDICATIONS: Patient is a 35-year-old female with a past medical history of fibromyalgia, polycystic kidney disease, pituitary tumor, kidney tumor, HTN, DM who presents for scheduled outpatient left heart catheterization. Pt underwent stress test and coronary CTA which were abnormal. Cardiac catheterization was arranged to evaluate coronary anatomy. ? COUNSELING: The risks and benefits of the procedure were explained in detail. Informed consent was obtained and charted. ? PROCEDURE: ?? 1. LHC ?? 2. Selective coronary angiogram ?? 3. Conscious sedation (9:42-9:59) ? LIQUEFIER: ?Jose Norman MD ? DESCRIPTION OF PROCEDURE: The patient was brought to the Cardiac Catheterization Laboratory where both groins were prepped and draped in a sterile fashion. After local anesthesia was obtained with 1% Xylocaine, the R femoral artery was entered percutaneously and a 5 Fr sheath was inserted over aguidewire using the modified Seldinger technique. ?? Diagnostic left and right coronary angiography were performed using 5 Fr JL 4 and a 5 Fr JR 4 catheters respectively. A 5 Fr pigtail catheter was advanced to the left ventrickle. Pressures were recorded in the left ventrickle and aorta. No LV gram was done due to kidney dysfunction. ?? Then all catheters were removed and pt was transferred to the recovery in stable condition. ? Complications: none ? contrast: 30 cc ? FINDINGS: ?? 1. Hemodynamic data: LV pressure 144/18 , Aortic pressure 157/86 ??, LVEDP 18 . ?? 2. Left main: Large, within normal limits ?? 3. LAD: ??Large, very tortuous, ??in mid segment mildly ectatic, minor luminal irregularities. D1 Large, normal. ?? 4. LCX: ??Large, mid and distal very tortuous, normal. OM1 large, tortuous, normal. ?? 5. RCA: Large dominant, tortuous, minor luminal irregularities in mid segment. PDA Small, normal. SELENA average, normal. ? SUMMARY: ?? 1. Mild nonobstructive CAD. ?? 2. Diastolic dysfunction (LVEDP 18 mmHg). ? PLAN: ?? Continue medical management. ? <Electronically signed by Jose Norman MD> ?? 01/22/21 1145 ? Resulting Agency Comment O Procedure Note Jose Norman MD - 01/22/2021 Patient Name: KYLEE FIGUEROA [facility]#: [id number]#: [id number] Status: REG [facility] D.O.B: 1985 Age: 35Sex: Female ADM/SER Dt: 01/22/21 Disch Dt:LOC: H.CATH Procedure Report Jose Norman MD Signed Report Created: 01/22/21 1025 Service Date/Time: 01/22/21 1024 Cardiology Procedure Note Date of Procedure: 01/22/21 Pre-Proc. Dx/Indications: CP, abnormal stress and coronary CTA Post-Proc. Dx/Impression: Nonobstructive CAD, diastolic dysfunction Procedure Performed: LHC, coronaries Electrotype Finisher: Ester Anesthesia: Conscious sedation Complications: None Disposition of Case: Stable-to recovery Procedure Description/Outcome: INDICATIONS: Patient is a 35-year-old female with a past medicalhistory of fibromyalgia, polycystic kidney disease, pituitary tumor, kidney tumor, HTN, DM whopresents for scheduled outpatient left heart catheterization. Pt underwent stress test andcoronary CTA which were abnormal. Cardiac catheterization was arranged to evaluate coronaryanatomy. COUNSELING: The risks and benefits of the procedure were explained indetail. Informed consent was obtained and charted. PROCEDURE: 1. LHC 2. Selective coronary angiogram 3. Conscious sedation (9:42-9:59) LIQUEFIER: Jose Norman MD DESCRIPTION OF PROCEDURE: The patient was brought to the CardiacCatheterization Laboratory where both groins were prepped and draped in a sterile fashion. After localanesthesia was obtained with 1% Xylocaine, the R femoral artery was entered percutaneously and a 5 Frsheath was inserted over aguidewire using the modified Seldinger technique. Diagnostic left and right coronary angiography were performed using 5 FrJL 4 and a 5 Fr JR 4 catheters respectively. A 5 Fr pigtail catheter was advanced to the leftventrickle. Pressures were recorded in the left ventrickle and aorta. No LV gram was done due tokidney dysfunction. Then all catheters were removed and pt was transferred to the recovery instable condition. Complications: none contrast: 30 cc FINDINGS: 1. Hemodynamic data: LV pressure 144/18 , Aortic pressure 157/86 , LVEDP18 . 2. Left main: Large, within normal limits 3. LAD: Large, very tortuous, in mid segment mildly ectatic, minorluminal irregularities. D1 Large, normal. 4. LCX: Large, mid and distal very tortuous, normal. OM1 large, tortuous,normal. 5. RCA: Large dominant, tortuous, minor luminal irregularities in midsegment. PDA Small, normal. SELENA average, normal. SUMMARY: 1. Mild nonobstructive CAD. 2. Diastolic dysfunction (LVEDP 18 mmHg). PLAN: Continue medical management. <Electronically signed by Jose Norman MD> 01/22/21 9215 us Jose Norman MD CV CARDIAC CATH PROCEDURE S Final Result * ABO / Rh Confirmation Testing (01/22/2021 9:00 AM HIGH LIFT DRIVER) Blood Type Confirm ON [facility] 01/22/2021 9:00 AM HIGH LIFT DRIVER 01/22/2021 9:22 AM HIGH LIFT DRIVER Narrative Resulting Agency Comment SDC us Jose Norman MD LAB BLOOD ORDERABLES Maddie l Result Performing Organization Address [facility] Co de Phone Number [address] [phone] * ECG 12 lead (01/22/2021 8:55 AM HIGH LIFT DRIVER) Ventricular Rate EKG/Min 92 BPM [facility] Atrial Rate 92 BPM [facility] OR-Interval (MSEC) 166 ms [facility] QRS-Interval (MSEC) 80 ms [facility] QT-Interval (MSEC) 386 ms [facility] QTc 477 ms [facility] P [place] 45 degrees [facility] R [place] 27 degrees [facility] T [place] 33 degrees [facility] Diagnosis Normal sinus rhythm Normal ECG No previous ECGs available [facility] 01/22/2021 8:55 AM HIGH LIFT DRIVER 01/22/2021 7:07 PM HIGH LIFT DRIVER Narrative Resulting Agency Comment OUTPAT Jose Norman MD ECG ORDERABLES Final Res ult Performing Organization Address [facility] Co de Phone Number [address] * Antibody screen (01/22/2021 8:24 AM HIGH LIFT DRIVER) Antibody Screen NEGATIVE [facility] 01/22/2021 8:24 AM HIGH LIFT DRIVER 01/22/2021 8:27 AM HIGH LIFT DRIVER Narrative Resulting Agency Comment SDC us Jose Norman MD LAB BLOOD BANK TEST ORDER MALLORY Final Result Performing Organization Address [facility] [place] [address], [facility] [phone] * Type and screen (01/22/2021 8:24 AM HIGH LIFT DRIVER) Pathologist [facility] Blood Type ON [facility] 01/22/2021 8:24 AM HIGH LIFT DRIVER 01/22/2021 8:27 AM HIGH LIFT DRIVER Narrative [facility] - 01/22/2021 9:17 AM HIGH LIFT DRIVER N Resulting Agency Comment SDC Jose Norman MD LAB BLOOD BANK TEST ORDER MALLORY Edited Result - Final Performing Organization Address [facility] de Phone Number [address] [phone] * hCG, blood, quantitative (01/22/2021 8:24 AM HIGH LIFT DRIVER) Pathologist [facility] Beta HCG, Quant <0.1 0.0 - 4.0 mIU/mL [facility] Comment: Female Reference Intervals(): ??Negative ? < 5.0 mIU/mL ??Indeterminate ??5.0-25.0 mIU/mL ??Positive ? > 25.0 mIU/mL Values between 5.0 and 25.0 mIU/mL are indeterminate for . Repeat testing of indeterminate results is suggested in 72 hours. Plasma hCG levels cannot be used to date a . In normal , values should double every 48-72 hours for the first 6 weeks.In postmenopausal women, an hCG level up to 14.0 mIU/mL can be considered normal. This result is not interpretable as a tumor marker in females. 01/22/2021 8:24 AM HIGH LIFT DRIVER 01/22/2021 8:27 AM HIGH LIFT DRIVER Narrative Resulting Agency Comment SDC Jose Norman MD LAB BLOOD ORDERABLES Maddie l Result Performing Organization Address City/[facility]/ZIP Co de Phone Number [address] [place], [place] [address] [phone] * (ABNORMAL) Basic metabolic panel (01/22/2021 8:24 AM HIGH LIFT DRIVER) Sodium 137 135 - 145 mmol/L [facility] Potassium 3.8 3.3 - 5.1 mmol/L [facility] Chloride 103 96 - 108 mmol/L [facility] Carbon Dioxide 25 22 - 32 mmol/L [facility] Anion Gap 9 7 - 16 [facility] Glucose 184(H) 70 - 100 mg/dL [facility] BUN 26(H) 8 - 25 mg/dL [facility] Creatinine 0.9 0.5 - 1.1 mg/dL [facility] Comment: NOTE: Estimated GFR (Cockroft-Gault) will NOT be calculated unless patient Height and Weight were entered. Also, Kidney Disease Stage (GFR) and Estimated GFR (Cockroft-Gault) will NOT be calculated if Creatinine result is <0.2. Kidney Disease Stage 75 mL/MIN [facility] Comment: NOTE; ??The GFR is an estimated value using the creatinine, sex, age, and race of the patient. THE Estimated Kidney Disease GFR is validated for AGES 18-70 YEARS STAGE ?mL/Min ?DESCRIPTION ??1 ?90 mL/min or more ?Normal or elevated GFR ??2 ? 60-89 mL/min ?Mildly decreased GFR ??3 ? 30-59 mL/min ?Moderately decreased GFR ??4 ? 15-29 mL/min ?Severely decreased GFR ??5 ? <15 mL/min ? Kidney failure or on dialysis Est GFR (Cockcroft-G) 96 ml/MIN [facility] Comment: Estimated GFR(Cockroft-Gault)is used to calculate patient medication dosage Calcium 9.1 8.6 - 10.3 mg/dL [facility] 01/22/2021 8:24 AM HIGH LIFT DRIVER 01/22/2021 8:27 AM HIGH LIFT DRIVER Narrative Resulting Agency Comment SDC Jose Norman MD LAB BLOOD ORDERABLES Maddie l Result Performing Organization Address [facility] [place] [address], [facility] [phone] * aPTT (01/22/2021 8:24 AM HIGH LIFT DRIVER) APTT 32 23 - 38 SECONDS [facility] Comment: New reference ranges in use 08-19-2020. 01/22/2021 8:24 AM HIGH LIFT DRIVER 01/22/2021 8:27 AM HIGH LIFT DRIVER Narrative Resulting Agency Comment SDC us Jose Norman MD LAB BLOOD ORDERABLES Maddie l Result Performing Organization Address [facility] [place] [address], [facility] [phone] * Protime-INR (01/22/2021 8:24 AM HIGH LIFT DRIVER) PT 13.2 12.3 - 15.1 SECONDS [facility] Comment: New reference ranges in use 08-19-2020. INR 0.95 [facility] Comment: Recommended Therapeutic range for Oral Anticoagulant Therapy No anti-coagulation therapy ? Normal Range: ?0.8-1.4 Anti-coagulation therapy ? Low intensity therapy ?2.0-3.0 ? High intensity therapy ?? 2.5-3.5 Critical Value ? Greater than or equal to 5.0 Patients should be monitored for serious bleeding. 01/22/2021 8:24 AM HIGH LIFT DRIVER 01/22/2021 8:27 AM HIGH LIFT DRIVER Narrative Resulting Agency Comment SDC us Jose Norman MD LAB BLOOD ORDERABLES Maddie l Result [facility] [address] [place] [address], [facility] [phone] * (ABNORMAL) CBC with auto differential (01/22/2021 8:24 AM HIGH LIFT DRIVER) WBC 7.7 3.8 - 9.9 X10 3/ul [facility] RBC 4.09 3.90 - 5.20 x10 6/ul [facility] Hemoglobin 10.6(L) 11.9 - 15.5 g/dL [facility] Hct 33.6(L) 35.6 - 45.5 % [facility] MCV 82.2 81.3 - 96.4 fl [facility] MCH 25.9(L) 27.1 - 33.3 pg [facility] MCHC 31.5(L) 32.3 - 35.7 g/dl [facility] RDW 14.0 11.1 - 14.9 % [facility] Plt Count 302 150 - 400 x10 3/ul [facility] MPV 8.6(L) 9.1 - 12.3 fl [facility] Neut % 69.8 % [facility] Immature Gran % 0.3 % [facility] Lymph % 22.7 % [facility] [place] % 5.4 % [facility] Eos % 1.3 % [facility] AUTO BASO % 0.5 % [facility] NEUTROPHIL ABS # 5.4 1.7 - 6.5 x10 3/ul [facility] Immature Gran # 0.0 0.0 - 0.1 x10 3/ul [facility] Absolute Lymphs (auto) 1.8 0.8 - 3.3 x10 3/ul [facility] Absolute Monos (auto) 0.4 0.2 - 0.8 x10 3/ul [facility] Absolute Eos (auto) 0.1 0.0 - 0.5 x10 3/ul [facility] BASOPHIL ABS # 0.0 0.0 - 0.1 x10 3/ul [facility] Nucleat RBC Rel Count 0.0 #/100WBC [facility] NRBC abs 0.00 0.00 - 0.01 x10 3/ul [facility] Absolute Neutrophils 5,400 200 - 8,000 /ul [facility] 01/22/2021 8:24 AM HIGH LIFT DRIVER 01/22/2021 8:27 AM HIGH LIFT DRIVER Narrative Resulting Agency Comment SDC us Joes Norman MD LAB BLOOD ORDERABLES Maddie l Result [facility] [address] [phone] * PROCEDURE - RESULT (01/22/2021 12:00 AM HIGH LIFT DRIVER) Narrative 01/22/2021 12:00 AM HIGH LIFT DRIVER Ordered by an unspecified provider. Historical Provider Final Res ult * CARDIOLOGY REPORT (01/22/2021 12:00 AM HIGH LIFT DRIVER) Anatomical Region Laterality Modality Other Narrative 01/22/2021 12:00 AM HIGH LIFT DRIVER Ordered by an unspecified provider. Historical Provider [facility] ZULEIMA CHANDLER Final Result documented in this encounter Visit Diagnoses Not on filedocumented in this encounter Care Teams Hims Coder Relationship Specialty Start Date End Date Andrei Clark MD PCP - General Internal Medicine 12/11/20 documented as of this encounter
--- OUTSIDE RECORDS SUMMARY | 2024-11-17 14:27 | XMS_ITS | Encounter Summary ---
Author Organization [facility] Address [address] [place] [address] Phone Care Team Providers Care Reinforcing Steel Worker Name Role Phone Andrei Clark MD Primary Care Provider [phone] Kandace Freedman OT Unavailable [phone] Christina Brunson MD Unavailable [phone] Reason for Visit * Reason Onset Date Comments Surgery confirmation 09/29/2022 Encounter Details Date Type Department Care Team (Late st Contact Info) Description 09/29/2022 Telephone [facility] Obstetrics and Gynecology [facility] Advanced Medicine 13th [place] [address] [place] [address] Saskia Bro Surgery confirmation Social History Tobacco Use Types Packs/Day Years [...] on file Legal Sex Female 4:48 PM ASSISTANT PROFESSOR OF ANTHROPOLOGY Gender Identity Not on file Sexual Orientation Not on file documented as of this encounter Miscellaneous Notes * Telephone Encounter - Saskia Bro - 09/29/2022 1:10 PM CST Called KyleeChantale Guo and Confirmed Surgery for tomorrow. Patient is scheduled for surgery at 11am, advised to arrive at 9am. Instructed Kylee Guo to follow the oral intake instructions for Major on the yellow sheet of paper in their surgical folder. Patient also instructed to follow the shower instructions given to them at the time of their CPAP visit. [facility]. Patient verbalized understanding and will be here for surgery. STANT PROFESSOR OF ANTHROPOLOGY documented in this encounter Plan of Treatment Not on file documented as of this encounter Visit Diagnoses Not on filedocumented in this encounter Care Teams Reinforcing Steel Worker Relationship Specialty Start Date End Date Andrei Clark MD PCP - General Internal Medicine 12/11/20 Kandace Freedman OT [address] [place] [address] Occupational Therapist Occupational Therapy 03/15/21 Christina Brunson MD [address] [facility] [address] [place] [address] Obstetrics and Gynecology 08/02/22 documented as of this encounter
--- OUTSIDE RECORDS SUMMARY | 2024-11-17 14:27 | XMS_ITS | Encounter Summary ---
Author Organization [facility] Healthcare Address [address] [place] [address] Care Team Providers Care Casing Man Name Role Phone Andrei Clark MD Primary Care Provider [phone] Encounter Details Date Type Department Care Team (Late st Contact Info) Description 12/14/[address] [facility] Neurodiagnostics [address] [place] [address] Shannen Vicente Social History Tobacco Use Types [...] on file Legal Sex Female 4:48 PM OXYACETYLENE WELDER Gender Identity Not on file Sexual Orientation Not on file documented as of this encounter Miscellaneous Notes * Telephone Encounter - Shannen Vicente - 12/14/2020 2:54 PM CST Called and spoke with Denae in Dr. Jimenez's office. She will fax over order for VEEG. CETYLENE WELDER documented in this encounter Plan of Treatment Not on file documented as of this encounter Visit Diagnoses Not on filedocumented in this encounter Care Teams Casing Man Relationship Specialty Start Date End Date Andrei Clark MD PCP - General Internal Medicine 12/11/20 documented as of this encounter
--- OUTSIDE RECORDS SUMMARY | 2024-11-17 14:27 | XMS_ITS | Encounter Summary ---
Author Organization [facility] Healthcare Address [address] [place] [address] Care Team Providers Care Telecommunications Cable Jointer Name Role Phone Andrei Clark MD Primary Care Provider [phone] Kandace Freedman OT Unavailable [phone] Christina Brunson MD Unavailable Encounter Details Date Type Department Care Team (Late st Contact Info) Description 09/19/2022 Orders Only Radiology [address] [place] [id number] Latasha Ramires MD [address] [facility] [address] [place] [address] Mass of ovary (Primary Dx) Social History Tobacco Use [...] on file Legal Sex Female 4:48 PM TOOL PUSHER Gender Identity Not on file Sexual Orientation Not on file documented as of this encounter Plan of Treatment Not on file documented as of this encounter Visit Diagnoses Diagnosis Mass of ovary- Primary documented in this encounter Care Teams Telecommunications Cable Jointer Relationship Specialty Start Date End Date Andrei Clark MD PCP - General Internal Medicine 12/11/20 Kandace Freedman OT [address] [place] [address] Occupational Therapist Occupational Therapy 03/15/21 Christina Brunson MD [address] [facility] [address] [place] [address] Obstetrics and Gynecology 08/02/22 documented as of this encounter
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
--- OUTSIDE RECORDS SUMMARY | 2024-11-17 14:27 | XMS_ITS | Encounter Summary ---
Author Organization 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 Thank you STER AND INSPECTOR * Telephone Encounter - Zoë Henderson RN - 12/11/2020 11:01 AM ADJUSTER AND INSPECTOR Harley Mccoy, No apology necessary as I am not familiar with how you all work up things on the referral side, so we are both learning. I see the notes from Ming Boo and Spenser. I am unsure if a separate referral needs to come from the neurologist wanting the VEEG, but I just spoke to Angi, and she is cc'd on this note. As your department is new, she is working on a process and will let us know once it's finalized. In the meantime, she is going to determine who needs to put in the VEEG order so it stays with your department. Thank you for your help!Theodora STER AND INSPECTOR * Telephone Encounter - Angi Jimenez CMA - 12/11/2020 10:21 AM CST Images from the original note were not included. Good morning, For this patient her doctor send in a referral to be seen. Due to the concern patient was sent to general neuro and Dr Dueñas re-directed for patient to be seen in Epi. Dr. Boo reviewed and hisresponse is copied below. We are new to processing the Epi referrals and typically do not enter procedure referrals so I sent her to EEG line to assist with setting up appointment as I am not familiar with that process either. Do you know if her referring provider should be the one to enter referral or if it would be acceptable with Dr. Boo triage response? My apologies for any confusion Thank you Nadine STER AND INSPECTOR * Telephone Encounter - Zoë Henderson RN - 12/11/2020 8:59 AM ADJUSTER AND INSPECTOR Harley Whitley, I received a transfer of this pt's call as she stated she wanted to follow up on getting her VEEG scheduled. She stated her PMD sent a referral (none noted), as he thinks she needs to see Movement and her Neurologist sent a referral (noted the referral to [facility]) as he thinks she needs a VEEG in the EMU. Angi, she said that Dr Boo has reviewed and approved a VEEG, but I told her I didn't see an order in Epic. I explained that Kandace can't schedule the VEEG until the order is put in, and drops into her work queue. Is the pt supposed to be scheduled? I gave her the number for the EMU (and explained it may not be open yet), Movement, and General Neurology, as I'm unsure who would follow up on her reference to her PMD referring to [facility]. Will you please follow up with her to let her know if she needs to call the EMU to find out when her VEEG can be scheduled. Thank you so much~Zoë STER AND INSPECTOR documented in this encounter Plan of Treatment Not on file documented as of this encounter Visit Diagnoses Not on filedocumented in this encounter Care Teams Engineering Leader Relationship Specialty Start Date End Date Andrei Clark MD PCP - General Internal Medicine 12/11/20 documented as of this encounter
--- OUTSIDE RECORDS SUMMARY | 2024-11-17 14:27 | XMS_ITS | Encounter Summary ---
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 KER OUT documented in this encounter Plan of Treatment Not on file documented as of this encounter Visit Diagnoses Not on filedocumented in this encounter Care Teams Pari Mutuel Clerk Relationship Specialty Start Date End Date Andrei Clark MD PCP - General Internal Medicine 12/11/20 documented as of this encounter
--- OUTSIDE RECORDS SUMMARY | 2024-11-17 14:27 | XMS_ITS | Encounter Summary ---
Author Organization [facility] Address [address] [facility] [address] [facility] [address] [place] [address] Care Team Providers Care Manufacturing Plant Technician Name Role Phone Andrei Clark MD Primary Care Provider [phone] Kandace Freedamn OT Unavailable [phone] Reason for Visit * Reason Onset Date Comments Scheduling Appointments 08/19/2021 Encounter Details Date Type Department Care Team (Late st Contact Info) Description 08/19/2021 Telephone [employer] [address] [place] [phone] Dennise Gallardo MA Scheduling Appointments Social History Tobacco Use Types Packs/Day Years [...] on file 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 Huff. Tried to contact patient to schedule an appointment but had to leave message for patient to call back to schedule. documented in this encounter Plan of Treatment Not on file documented as of this encounter Visit Diagnoses Not on filedocumented in this encounter Care Teams Manufacturing Plant Technician Relationship Specialty Start Date End Date Andrei Clark MD PCP - General Internal Medicine 12/11/20 Kandace Freedman OT [address] [place] [address] Occupational Therapist Occupational Therapy 03/15/21 documented as of this encounter
--- OUTSIDE RECORDS SUMMARY | 2024-11-17 14:27 | XMS_ITS | Encounter Summary ---
Author Organization [facility] Address [address] [place] [address] Care Team Providers Care It Program Engagement Director Name Role Phone Andrei Clark MD Primary Care Provider [phone] Reason for Referral * MRI/CAT/PET Scan (Routine) - Closed Specialty Diagnoses / Procedures Referred By Contac t Referred To Contact Radiology Diagnoses Unspecified abnormal involuntary movements Procedures MRI Brain W WO Contrast Andrei lCark MD [address] [place] [address] [place] [address] Phone: tel: fax: [address] [address] Referral ID Status Reason Start Date Expiration Date Visits Re quested Visits Authorized [id number] Closed 03/04/2021 04/02/2021 1 1 Reason for Visit * MRI/CAT/PET Scan (Routine) - Closed Specialty Diagnoses / Procedures Referred By Contac t Referred To Contact Radiology Diagnoses Unspecified abnormal involuntary movements Procedures MRI Brain W WO Contrast Andrei Clark MD [address] [place] [address] [place] [address] Phone: tel: fax: [address] [address] Referral ID Status Reason Start Date Expiration Date Visits Re quested Visits Authorized [id number] Closed 03/04/2021 04/02/2021 1 1 Encounter Details Date Type Department Care Team (Late st Contact Info) Description 03/11/2021 6:16 PM CDT - 03/11/2021 11:59 PM CDT Hospital Encounter [facility] [address] [place] [address] Andrei Clark MD [address] [facility] [place] [address] Unspecified abnormal involuntary movements Discharge Disposition: Discharge to home or self [...] on file 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 Dictated by: Corona Kimbrough D.O. The radiology attending physician has personally reviewed this study, and had reviewed and/or edited this written report and agrees with it. Electronically signed by: Kulwant Anderson M.D. Narrative 03/12/2021 10:02 AM CDT EXAMINATION: Magnetic resonance imaging (MRI) of the brain and brainstem without and with contrast HISTORY: Abnormal involuntary movements. Idiopathic intracranial hypertension. TECHNIQUE: Multiplanar multi-weighted MRI of the brain and brainstem was performed without and with intravenous contrast using the general brain protocol. Contrast information: 18 mL Dotarem COMPARISON: MRI pituitary 04/23/2020 FINDINGS: The scalp and calvarium are normal. ?? The superior sagittal sinus demonstrates normal venous flow. ??The corpus callosum is normal in shape and signal intensity. ??The posterior fossa is unremarkable. Partially empty sella. ??The brainstem and craniocervical junction are unremarkable. No increased CSF within the optic nerve sheaths. No optic disc flattening. Diffusion weighted images reveal no hyperintensities to suggest acute cerebral infarction. ??The susceptibility weighted sequences reveal no evidence of acute or chronic hemorrhage. ??The ventricles are normal in size and position without evidence of hydrocephalus . There are no areas of abnormal contrast enhancement. Enlarged frontal sinuses. Paranasal sinuses are clear. ??The visualized portions of the mastoids are unremarkable. ??The orbits appear normal. ??Normal flow voids are demonstrated in the carotid arteries and basilar artery. Procedure Note Kulwant Anderson MD - 03/12/2021 EXAMINATION: Magnetic resonance imaging (MRI) of the brain and brainstem without and with contrast HISTORY: Abnormal involuntary movements. Idiopathic intracranial hypertension. TECHNIQUE: Multiplanar multi-weighted MRI of the brain and brainstem was performed without and with intravenous contrast using the general brain protocol. Contrast information: 18 mL Dotarem COMPARISON: MRI pituitary 04/23/2020 FINDINGS: The scalp and calvarium are normal. The superior sagittal sinus demonstrates normal venous flow. The corpus callosum is normal in shape and signal intensity. The posterior fossa is unremarkable. Partially empty sella. The brainstem and craniocervical junction are unremarkable. No increased CSF within the optic nerve sheaths. No optic disc flattening. Diffusion weighted images reveal no hyperintensities to suggest acute cerebral infarction. The susceptibility weighted sequences reveal no evidence of acute or chronic hemorrhage. The ventricles are normal in size and position without evidence of hydrocephalus . There are no areas of abnormal contrast enhancement. Enlarged frontal sinuses. Paranasal sinuses are clear. The visualized portions of the mastoids are unremarkable. The orbits appear normal. Normal flow voids are demonstrated in the carotid arteries and basilar artery. IMPRESSION: No acute intracranial abnormality or abnormality to explain patient's symptoms. Dictated by: Corona Kimbrough D.O. The radiology attending physician has personally reviewed this study, and had reviewed and/or edited this written report and agrees with it. Electronically signed by: Kulwant Anderson M.D. Andrei Clark MD IMG MRI PROCEDURES Final Resu lt documented in this encounter Visit Diagnoses Diagnosis Unspecified abnormal involuntary movements documented in this encounter Administered Medications Inactive Administered Medications - up to 3 most recent administrations Medication Order MAR Action Action Date Dose Rate Site gadoterate meglumine (DOTAREM) 0.5 mmol/mL injection 18 mL 18 mL, intravenous, Once in imaging, contrast, Starting on Alfreda 03/11/21 at 1949, For 1 dose Given 03/11/2021 7:50 PM CDT 18 mL documented in this encounter Orders Medications Ordered That Brendan ht Not Have Been Administered Count Last Ordered Date First Ordered Date gadoterate meglumine (DOTARE M) 0.5 mmol/mL injection 18 mL 1 03/11/2021 documented in this encounter Care Teams It Program Engagement Director Relationship Specialty Start Date End Date Andrei Clark MD PCP - General Internal Medicine 12/11/20 documented as of this encounter
--- OUTSIDE RECORDS SUMMARY | 2024-11-17 14:27 | XMS_ITS | Encounter Summary ---
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
--- OUTSIDE RECORDS SUMMARY | 2024-11-17 14:27 | XMS_ITS | Encounter Summary ---
Author Organization [facility] Address [address] [address] Care Team Providers Care Patent Searcher Name Role Phone Dorota Martinez MD Primary Care Provider [phone] Reason for Referral * (Routine) - Closed Specialty Diagnoses / Procedures Referred By Tiburcio caicedo Referred To Contact Diagnoses Benign paroxysmal vertigo of both ears Procedures Audiometry with tympanometry Lyric Bruner Au.D. Phone: tel: fax: [facility] Referral ID Status Reason Start Date Expiration Date Visits Re quested Visits Authorized [id number] Closed 04/04/2019 10/13/2020 1 1 Reason for Visit * Reason Comments Tinnitus Encounter Details Date Type Department Care Team (Late st Contact Info) Description 04/04/2019 2:00 PM CDT Procedure visit [facility] [address] [place] [address] Lyric Bruner Au.D. 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 female : 1985 Patient Reports: Kylee was seen today by Dr. Zaragoza pressure, humming and roaring in her right ear. She reports that she feels dizzy when this happens. Tests Performed: See: audiogram and immittance audiometry (see scanned document) Assessment: Otoscopy was performed by Dr. Zaragoza and found that her ear canals were clear of cerumen. Pure tone audiometry was performed and revealed: Right- within normal limits Left- within normal limits Speech recognition thresholds (SRT) test was performed and revealed: Right- Consistent with normal hearing Left- Consistent with normal hearing Word recognition testing (WRS) was performed using MLV of NU-6 lists. Both- Excellent Tympanometry was performed and revealed: Both ears - within normal limits Kylee was counseled on the results of today's evaluation by Dr. Zaragoza. She was prescribed medication to treat her endolymphatic hydrops. Plan/Recommendations: Follow-up with Dr. Zaragoza as neede Retest 12 months/PRN Hearing protection in noise documented in this encounter Plan of Treatment Not on file documented as of this encounter Procedures Procedure Name Priority Date/Time Associated Diagnosis Comments AUDIOMETRY WITH TYMPANOMETRY Routine 04/04/2019 2:00 PM CDT Benign paroxysmal vertigo of both ears documented in this encounter Results * Audiometry with tympanometry (04/04/2019 2:00 PM CDT) Narrative Lyric Bruner AUD - 04/04/2019 2:00 PM CDT DESTINY Sunshine ? 04/04/2019 ??3:45 PM Audiometry with tympanometry Performed by: DESTINY Sunshine Authorized by: Jose Roberto Zaragoza MD Jose Roberto Zaragoza MD AUDIOLOGY SERVICES ORDERAB LES Final Result documented in this encounter Visit Diagnoses Diagnosis Benign paroxysmal vertigo of both ears- Primary Tinnitus of both ears Unspecified tinnitus Endolymphatic hydrops, right documented in this encounter Care Teams Patent Searcher Relationship Specialty Start Date End Date Dorota Martinez MD [address] [facility] [address] [place] [address] PCP - General 02/11/19 12/10/20 documented as of this encounter
--- OUTSIDE RECORDS SUMMARY | 2024-11-17 14:27 | XMS_ITS | Encounter Summary ---
Author Organization [facility] [place] [facility] Address [address] [place] [address] Phone Care Team Providers Care Manager Of Distribution Name Role Phone Dorota Martinez MD Primary Care Provider [phone] Encounter Details Date Type Department Care Team (Late st Contact Info) Description 05/28/2020 Telephone [facility] Neurosurgery [address] [facility] Advanced Medicine 6th [place] [address] [place] [phone] Esau Miles MD [address] [address] Social History Tobacco Use Types Packs/Day Years [...] on file 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
--- OUTSIDE RECORDS SUMMARY | 2024-11-17 14:27 | XMS_ITS | Encounter Summary ---
Author Organization [facility] Address [address] [place] [address] Phone Care Team Providers Care Chip Applying Machine Tender Name Role Phone Dorota Martinez MD Primary Care Provider [phone] Encounter Details Date Type Department Care Team (Late st Contact Info) Description 05/28/2020 Telephone 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 Since she was seen in the neurosurgery office in consultation over year agoshe was evaluated by Otolaryngology and found to have endolymphatic hydrops. Patient reports since stopping her medication last year for treatment of suspected pseudotumor cerebri she was much better. She did not like taking the Dyazide. She states however she has recurrent migraine headaches. The headaches have not responded well to therapy. She states the pain occurs in the right side of her head extending into her neck. During the headaches she has numbness and tingling in her foot and her tongue. She reports medication does not get rid of the headaches. The patient was [facility]. There was no sign of papilledema noted at that time.The patient has had a recent lumbar puncture that showed an opening pressure 21. Given the lack eye findings to support a diagnosis of pseudotumor cerebri as well as the patient's most recent lumbar tap with an opening pressure of 21, the diagnosis pseudotumor cerebri is not clear. It was recommend she undergo formal consultation in the Neuro-Oncology department to see if thereis evidence of pseudotumor her exam. I spoke with Dr. Koo and at this time it was unlikely she would need to have surgical placement of a ventricular shunt. Patient is planning to follow-up with a Neuro-Ophthalmology consultation. Esau Miles MD * Telephone Encounter - Yenifer Baron BS - 05/28/2020 7:41 AM CDT Records received for a return patient of Dr. Miles. Records have been scanned under media for review. Appointment requested. documented in this encounter Plan of Treatment Not on file documented as of this encounter Visit Diagnoses Not on filedocumented in this encounter Care Teams Chip Applying Machine Tender Relationship Specialty Start Date End Date Dorota Martinez MD [facility] [address] PCP - General 02/11/19 12/10/20 documented as of this encounter
--- OUTSIDE RECORDS SUMMARY | 2024-11-17 14:27 | XMS_ITS | Encounter Summary ---
Author Organization [facility] Address [address] [place] [address] Care Team Providers Care Track Repair Supervisor Name Role Phone Dorota Martinez MD Primary Care Provider [phone] Encounter Details Date Type Department Care Team (Late st Contact Info) Description 04/23/[address] 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
--- OUTSIDE RECORDS SUMMARY | 2024-11-17 14:27 | XMS_ITS | Encounter Summary ---
Author Organization [facility] Address [address] [place] [address] Phone Care Team Providers Care Oxidized Finish Plater Name Role Phone Andrei Clark MD Primary Care Provider [phone] Encounter Details Date Type Department Care Team (Late st Contact Info) Description 12/14/[address] 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 Dr Boo reviewed referral and requested patient has a Video EEg. Message is copied below ===View-only below this line=== Oscar Boo III, MD 12/09/2020 4:36 PM POST TENSIONING IRONWORKER HELPER Please have this patient scheduled for admission to [facility] for video EEG to assess for the etiology ofher seizures. I have sent request to [facility] eeg pool. TENSIONING IRONWORKER HELPER documented in this encounter Plan of Treatment Not on file documented as of this encounter Visit Diagnoses Not on filedocumented in this encounter Care Teams Oxidized Finish Plater Relationship Specialty Start Date End Date Andrei Clark MD PCP - General Internal Medicine 12/11/20 documented as of this encounter
--- OUTSIDE RECORDS SUMMARY | 2024-11-17 14:27 | XMS_ITS | Encounter Summary ---
Author Organization [facility] Healthcare Address [address] [place] [address] Care Team Providers Care Mule Rider Name Role Phone Andrei Clark MD Primary Care Provider [phone] Kandace Freedman OT Unavailable [phone] Christina Brunson MD Unavailable [phone] Reason for Visit * Auth/Cert Specialty Diagnoses / Procedures Referred By Tiburcio caicedo Referred To Contact Diagnoses Adnexal mass Adnexal mass [N94.89] Procedures AZ LAP,RMV ADNEXAL STRUCTURE LAPAROSCOPY DIAGNOSTIC - OPERATIVE LAPAROSCOPIC SALPINGECTOMY LAPAROSCOPIC OOPHORECTOMY LAPAROSCOPIC TOTAL HYSTERECTOMY EXPLORATORY LAPAROTOMY Referral ID Status Reason Start Date Expiration Date Visits Re quested Visits Authorized [id number] 1 1 Encounter Details Date Type Department Care Team (Latest Contact Info) Description 09/30/2022 8:44 AM [facility] - 09/30/2022 9:57 PM [facility] Hospital Encounter [facility] Operating Room 1 [place] [id number] Michael Jackson MD [id number] [place] [address] Adnexal mass Discharge Disposition: Discharge to home or self [...] on file Legal Sex Female 4:48 PM [facility] Gender Identity Not on file Sexual Orientation Not on file documented as of this encounter Last Filed Vital Signs Vital Sign Reading Time Taken Comments Blood Pressure 145/86 09/30/2022 9:30 PM [facility] Pulse 80 09/30/2022 9:30 PM [facility] Temperature 36.2 ??C (97.2 ??F) 09/30/2022 8:00 PM CS T Respiratory Rate 16 09/30/2022 9:30 PM [facility] Oxygen Saturation 96% 09/30/2022 9:30 PM [facility] Inhaled Oxygen Concentration - - Weight - - Height - - Body Mass Index - - documented in this encounter Discharge Instructions * Discharge Instructions* Katelynn Rosa MD - 09/30/2022 5:29 PM [facility] Discharge Instructions Call Your Doctor If: * [...] it, please call the office to reschedule. HOME HEALTH documented in this encounter Medications at Time [...] what we can use. Cecilia Lee MD HOME HEALTH documented in this encounter H&P Notes * Michael Jackson MD - 09/30/2022 12:57 PM CST I have reviewed the H&P, examined the patient, and endorse the findings as written. Plan of Care : Based on the above findings, I consider Emma Figueroa to be an acceptable risk for :Procedure(s): LAPAROSCOPY DIAGNOSTIC - OPERATIVE LAPAROSCOPIC SALPINGECTOMY LAPAROSCOPIC OOPHORECTOMY LAPAROSCOPIC TOTAL HYSTERECTOMY EXPLORATORY LAPAROTOMY HOME HEALTH Source Note - Michael Jackson MD - 09/30/2022 12:52 PM [facility] REASON FOR VISIT: Left adnexal mass. HISTORY [...] adnexal mass, the patient is sent to Communications Manager-Oncology for further evaluation. The patient has a [...] ondansetron as well as Phenergan and Compazine. DINKEY LOCOMOTIVE OPERATOR HISTORY: She is a G2, P2. Her [...] for abnormality. Gastrointestinal: Her colonoscopy showed diverticulosis. HOME HEALTH * Michael Jackson MD - 09/30/2022 12:52 [...] adnexal mass, the patient is sent to Communications Manager-Oncology for further evaluation. The patient has a [...] ondansetron as well as Phenergan and Compazine. DINKEY LOCOMOTIVE OPERATOR HISTORY: She is a G2, P2. Her [...] for abnormality. Gastrointestinal: Her colonoscopy showed diverticulosis. HOME HEALTH documented in this encounter Miscellaneous Notes * Perioperative Nursing Note - Peggy Elliott RN - 09/30/2022 9:57 PM CST Removed Impact Ligasure from supplies per Dr. Jackson request HOME HEALTH * Op Note - Heriberto Eisenberg MD [...] Michael Jackson MD at 10/02/2022 10:56 AM [facility] HOME HEALTH HOME HEALTH Associated attestation - Michael Jackson MD - 10/02/2022 10:56 AM [facility] I was present for the entire procedure. * Brief Op Note - Heriberto Eisenberg MD - 09/30/2022 2:08 PM [facility] Operative Progress Note Surgical Team: Surgeon(s) and Role: * Michael Jackson MD - Primary * Kita Bender MD - Resident - Assisting * Heriberto Eisenberg MD - Fellow Anesthesiologist: Estefania Carty MD; Mendel Marshall MD BOOKKEEPING SERVICE SALES AGENT: Keke Welsh CRNA; Yajaira Pate CRNA Digital Traffic Coordinator: Kelby Hays RN Digital Traffic Coordinator Relief: Blossom Dean RN Scrub: Deena Maharaj RN Digital Traffic Coordinator Second: Rebecca Price RN DATE OF SURGERY [...] Michael Jackson MD at 09/30/2022 6:23 PM [facility] HOME HEALTH HOME HEALTH Associated attestation - Michael Jackson MD - 09/30/2022 6:23 PM [facility] I was present for the entire procedure. documented in this encounter Plan of Treatment Scheduled Orders Name Type Priority Associated Diagnoses Order Schedule Surgical pathology Pathology and Cytology Routine Adnexal mass Release Upon Ordering for 1 Occurrences starting 09/30/2022 documented as of this encounter Procedures Procedure Name Priority Date/Time Associated Diagnosis Comments POCT GLUCOSE DEVICE Routine 09/30/2022 4 :54 PM [facility] SURGICAL PATHOLOGY Routine 09/30/2022 3: 36 PM [facility] CYTOLOGY Routine 09/30/2022 2:17 PM [facility] Adnexal mass POCT GLUCOSE DEVICE Routine 09/30/2022 1 :55 PM [facility] STAGING LAPAROTMY 09/30/2022 1:2 9 PM [facility] Adnexal mass Case Notes 09/29@1138 can not start later meetings in the afternoon.(EF)09/29@0857 Office want to start at 11am per samantha via case msg.(EF) LYSIS OF ADHESIONS 09/30/2022 1: 29 PM [facility] Adnexal mass Case Notes 09/29@1138 can not start later meetings in the afternoon.(EF)09/29@57 Office want to start at 11am per samantha via case msg.(EF) CYSTECTOMY OVARIAN 09/30/2022 1: 29 PM [facility] Adnexal mass Case Notes 09/29@1138 can not start later meetings in the afternoon.(EF)09/29@57 Office want to start at 11am per samantha via case msg.(EF) LAPAROSCOPIC OOPHORECTOMY 09/30/2022 1:29 PM [facility] Adnexal mass Case Notes 09/29@1138 can not start later meetings in the afternoon.(EF)09/29@57 Office want to start at 11am per samantha via case msg.(EF) LAPAROSCOPIC SALPINGECTOMY 09/30/2022 1:29 PM [facility] Adnexal mass Case Notes 09/29@1138 can not start later meetings in the afternoon.(EF)09/29@57 Office want to start at 11am per samantha via case msg.(EF) LAPAROSCOPY DIAGNOSTIC - OPERATIVE 09/30/2022 1:29 PM [facility] Adnexal mass Case Notes 09/29@1138 can not start later meetings in the afternoon.(EF)09/29@57 Office want to start at 11am per samantha via case msg.(EF) B CHECK SAMPLE STAT 09/30/2022 9:39 AM [facility] POCT GLUCOSE DEVICE Routine 09/30/2022 9 :30 AM [facility] documented in this encounter Results * POCT glucose (09/30/2022 4:54 PM [facility]) Glucose, POC 139 70 - 199 mg/dL [facility] Blood 09/30/2022 4:54 PM [facility] 09/30/2022 4:54 PM [facility] Michael Jackson MD LAB POCT ORDERABLES - DE VICE Final Result [facility] [place] [address] * Surgical pathology (09/30/2022 3:36 PM [facility]) Ovary(ies) with or without tube, non-tumor 09/30/2022 3:36 PM [facility] 09/30/2022 3:50 PM [facility] Narrative 10/05/2022 3:48 PM [facility] EPIC results best viewed via link to PDF [facility] Yuliya Sims [facility] [place] [address] Note to Patients: This report may contain [...] Gender: ??F : ??1985 (Age: 37) Address: ??[address] [place], [place] [address], [place] ??[address] Hospital #: ??[id number] Taken:09/30/2022 Received:09/30/2022 Reported: 10/05/2022 Patient Type: [facility] SDS ?? Service: Surgery Location: [facility] OR POD1 Physician(s): ??Michael Jackson M.D. Andrei Clark M.D. Randy Cardenas M.D. Diagnosis: A. ??Fallopian tube and ovary, [...] cystadenofibroma - No evidence of malignancy on printing supplies sales representative sections By Tone Ralph M.D., Ebony [...] papillary excrescences, lesions, or areas of hemorrhage. Installment Account Checker sections are submitted for frozen section, AFR1 [...] sections of left fallopian tube; A3 to A7-printing supplies sales representative sections from left ovarian cyst wall. [...] Surgical Pathology and Flow Cytometry Departments at [facility] as part of an ongoing quality lead program and in compliance with federally mandated [...] Surgical Pathology and Flow Cytometry Departments of [facility]. ??It has not been cleared or approved by the U. S. Food and Drug Administration. IMAGES AND SCANNED DOCUMENTS, IF INCLUDED, ONLY VIEWABLE IN PDF VERSION OF REPORT Michael Jackson MD LAB PATHOLOGY ORDERABLES Final Result * Cytology (09/30/2022 2:17 PM [facility]) Fluid (Pelvic Washing (Cytology)) 09/30/2022 2:17 PM [facility] Narrative PATHOLOGY [facility] - 10/04/2022 11:22 AM [facility] EPIC results best viewed via link to PDF [facility] Yuliya Sims [facility] [place] [address] Note to Patients: This report may contain [...] REPORT FINAL Patient Name: ?? EMMA FIGUEROA Tj Gender: ??F : ??1985 (Age: 37) Address: ??[address] [place], [place] [address], [place], [place] ??[address] Hospital #: ??[id number] Taken:09/30/2022 Received:09/30/2022 Reported: 10/04/2022 Patient Type: [facility] SDS ?? Service: Surgery Location: [facility] OR POD1 Physician(s): ??Premal Manuel, MPj Clark M.D. FINAL DIAGNOSIS A. ??Pelvic washing: ? - Negative for malignancy [facility]/10/04/2022 09:22 By this [...] Surgical Pathology and Flow Cytometry Departments at [facility] as part of an ongoing quality lead program and in compliance with federally mandated [...] Surgical Pathology and Flow Cytometry Departments of [facility]. ??It has not been cleared or approved by the U. S. Food and Drug Administration. [facility] Elia Jackson MD LAB CYTOLOGY ORDERABLES Final Result PATHOLOGY [facility] 3rd Floor [place], [place] [phone] * POCT glucose (09/30/2022 1:55 PM [facility]) Glucose, POC 92 70 - 199 mg/dL [facility] Blood 09/30/2022 1:55 PM [facility] 09/30/2022 1:55 PM [facility] Michael Jackson MD LAB POCT ORDERABLES - DE VICE Final Result Performing Organization Address City/[facility] Co de Phone Number [facility] [place] [place] [address] * Check Sample (09/30/2022 9:39 AM [facility]) ABO Rh O Negative [facility] HCLL OTHER 09/30/2022 9:39 AM [facility] 09/30/2022 9:45 AM [facility] Michael Jackson MD LAB BLOOD ORDERABLES Fin al Result Performing Organization Address [facility] Co de Phone Number [facility] [place] [address] * POCT glucose (09/30/2022 9:30 AM [facility]) Glucose, POC 118 70 - 199 mg/dL [facility] Blood 09/30/2022 9:30 AM [facility] 09/30/2022 9:30 AM [facility] Michael Jackson MD LAB POCT ORDERABLES - DE VICE Final Result Performing Organization Address [facility] Co de Phone Number [facility] [place] [address] documented in this encounter Visit Diagnoses Diagnosis [...] induction., Indications: PainIndications:Pain Given 09/30/2022 9:37 AM [facility] 1,000 mg Carrier Fluids for Secondary Infusion - 0.9% [...] dose, Phase I Given 09/30/2022 5:52 PM [facility] 25 mg diphenhydrAMINE (BENADRYL) injection 25 mg 25 mg, intravenous, Administer over 2 Minutes, Once, On Mon09/30/22 at 1945, For 1 dose, Phase I Given 09/30/2022 7:15 PM [facility] 25 mg enoxaparin (LOVENOX) syringe 40 mg 40 mg, subcutaneous, Once, On Mon09/30/22 at 0930, For 1 dose, Pre-Op, Avoid enoxaparin if creatinine clearance is less than 30 mL/min or epidural placed., Indications: Deep Vein Thrombosis PreventionIndications:De ep Vein Thrombosis Prevention Given 09/30/2022 9:52 AM [facility] 40 mg Right Lower Abdomen famotidine (PEPCID) injection 20 mg 20 mg, intravenous, Administer over 2 Minutes, Once, On Mon09/30/22 at 1945, For 1 dose, Phase I Given 09/30/2022 7:16 PM [facility] 20 mg gabapentin (NEURONTIN) capsule 300 mg 300 mg, oral, Once, On Mon09/30/22 at 0930, For 1 dose, Pre-Op, Administer 1 hour prior to induction., Indications: PainIndications:Pain Given 09/30/2022 9:37 AM [facility] 300 mg haloperidol (HALDOL) injection 2 mg 2 mg, intramuscular, Once, On Mon09/30/22 at 1745, For 1 dose, Phase I, If administered IV push, administer over 5 min for adults Given 09/30/2022 5:18 PM [facility] 2 mg Other (Comment) Lactated Ringer's (LR) infusion 30 mL/hr, intravenous, Continuous, Starting on Mon09/30/22 at 0930, Pre-Op New Bag 09/30/2022 2:40 PM [facility] Rate/Dose Verify 09/30/2022 1:24 PM [facility] 30 mL/h r New Bag 09/30/2022 9:36 AM [facility] 30 mL/hr 30 mL/hr LORazepam (ATIVAN) 2 [...] of 2 mg/minute Given 09/30/2022 9:04 PM [facility] 0.25 mg scopolamine patch 72 hour 1 patch 1 patch, transdermal, Administer over 72 Hours, Once, On Mon09/30/22 at 1200, For 1 dose, Pre-Op Medication Applied 09/30/2022 11:46 AM [facility] 1 patch Behind Left Ear sodium chloride [...] May discontinue when discharge criteria met.Indications:Adnexal mass trimethobenzamide (TIGAN) injection 200 mg 200 mg, [...] Recently Administered Medications Times are shown in [facility]. Scheduled Medication Order 09/28/2022 09/29/2022 09/30/2022 acetaminophen (TYLENOL) tablet 1,000 mg (COMPLETED) 1,000 mg, oral, Once, On Mon09/30/22 at 0930, For 1 dose, Pre-Op, Administer 1 hour prior to induction., Indications: Pain 0937 (Given - Provid er: Shannen Gustafson RN) diphenhydrAMINE (BENADRYL) injection 25 mg (COMPLETED) 25 mg, intravenous, Administer over 2 Minutes, Once, On Mon09/30/22 at 1745, For 1 dose, Phase I 175 (Given - Provid er: Tami Canales RN) diphenhydrAMINE (BENADRYL) injection 25 mg (COMPLETED) 25 mg, intravenous, Administer over 2 Minutes, Once, On Mon09/30/22 at 1945, For 1 dose, Phase I 191 (Given - Provid er: Maximo Jimenez RN) enoxaparin (LOVENOX) syringe 40 mg (COMPLETED) 40 mg, subcutaneous, Once, On Mon09/30/22 at 0930, For 1 dose, Pre-Op, Avoid enoxaparin if creatinine clearance is less than 30 mL/min or epidural placed., Indications: Deep Vein Thrombosis Prevention 0952 (Given - Provid er: Shannen Gustafson RN) famotidine (PEPCID) injection 20 mg (COMPLETED) 20 mg, intravenous, Administer over 2 Minutes, Once, On Mon09/30/22 at 1945, For 1 dose, Phase I 1916 (Given - Provid er: Maximo Jimenez RN) gabapentin (NEURONTIN) capsule 300 mg (COMPLETED) 300 mg, oral, Once, On Mon09/30/22 at 0930, For 1 dose, Pre-Op, Administer 1 hour prior to induction., Indications: Pain 0937 (Given - Provid er: Shannen Gustafson RN) [...] Volume Adjustment - Provider: Keke Welsh CRNA)1857 (Due)194 (Due) sodium chloride 0.9% infusion 125 mL/hr, [...] nebu lizer solution 2.5 mg 1 09/30/2022 bupivacaine (MARCAINE) 0.25 % (2.5 mg/mL) preservative free injection 1 09/30/2022 Carrier Fluids for Secondary Infusion [...] 09/20 sodium chloride 0.9% infusion 1 09/30/2022 sodium chloride 0.9% irrigation 1 2 trimethobenzamide (TIGAN) injection 200 mg 1 09/30/2022 Discharge Count Last Ordered Date First Orde red Date DISCHARGE PATIENT 1 09/30/2022 documented in this encounter Care Teams Mule Rider Relationship Specialty Start Date End Date Andrei Clark MD PCP - General Internal Medicine 12/11/20 Kandace Freedman OT [address] [place] [address] Occupational Therapist Occupational Therapy 03/15/21 Christina Brunson MD [address] [place] [address] Obstetrics and Gynecology 08/02/22 documented as of this encounter
--- OUTSIDE RECORDS SUMMARY | 2024-11-17 14:27 | XMS_ITS | Encounter Summary ---
Author Organization [facility] Address [address] [place] [address] Phone Care Team Providers Care Workers' Compensation Magistrate Name Role Phone Andrei Clark MD Primary Care Provider [phone] Kandace Freedman OT Unavailable [phone] Christina Brunson MD Unavailable [phone] Reason for Visit * Reason Onset Date Comments Anticoagulation 09/21/2022 Encounter Details Date Type Department Care Team (Late st Contact Info) Description 09/21/2022 Telephone [facility] Obstetrics and Gynecology [facility] Advanced Medicine [address] [place] [address] [place] [address] Saskia Bro Social History Tobacco Use Types Packs/Day Years Used Date Smoking Tobacco: Former Cigarettes Q uit: 06/2020 Smokeless Tobacco: Never Alcohol Use Standard Drinks/Week Comments Never 0 (1 standard drink = 0.6 oz pur e alcohol) AUDIT-C Answer Date Recorded Q1: How often do you have a drink containing alcohol? Never 09/21/2022 Q2: How many drinks containi ng alcohol do you have on a typical day when you are drinking? Patient does not drink Q3: How often do you have si x or more drinks on one occasion? 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 She will then not take anymore prior to surgery. Pt verbalized understanding. * Telephone Encounter - Saskia Bro - 09/21/2022 3:41 PM CDT ----- Message from Michael Jackson MD sent at 09/21/2022 2:59 PM CDT ----- Regarding: RE: CPAP alejandro Jackson Stop the aspirin 7 days prior to surgery. ----- Message ----- From: Saskia Bro Sent: 09/21/2022 10:36 AM CDT To: Michael Jackson MD Subject: FW: CPAP alejandro Jackson See below and advise. Surgery 09-30-22 Saskia ----- Message ----- From: Tracey Romero NP Sent: 09/21/2022 9:32 AM CDT To: Ob Onc Cam Surgery [facility] Pool Subject: CPAP alejandro Jackson The patient is on aspirin therapy and has a history of CAD . For the proposed procedure, the risk of increased bleeding likely outweighs the benefits of preoperative antiplatelet therapy. If the surgeon agrees with risk assessment, we would support stopping aspirin up to 7-10 days prior to the procedure and resuming therapy when feasible in the postoperative period. Please call the CPAP attending ([phone]) with any questions. >NOTE: There is no need to reply to this message but if you would like to send a non-urgent reply, please address it to the [facility] staff message POOL address [facility] CPAP SUPERVISOR TREE TRIMMING (number [phone]). Please note that messages to this address will be replied to within approximately 1 business day. If you have an urgent reply, please call the CPAP at [phone]. documented in this encounter Plan of Treatment Not on file documented as of this encounter Visit Diagnoses Not on filedocumented in this encounter Care Teams Workers' Compensation Magistrate Relationship Specialty Start Date End Date Andrei Clark MD PCP - General Internal Medicine 12/11/20 Kandace Freedman OT [address] [place] [address] Occupational Therapist Occupational Therapy 03/15/21 Christina Brunson MD [address] [place] [address] Obstetrics and Gynecology 08/02/22 documented as of this encounter
--- OUTSIDE RECORDS SUMMARY | 2024-11-17 14:27 | XMS_ITS | Encounter Summary ---
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 Does not want to beseen here. documented in this encounter Plan of Treatment Not on file documented as of this encounter Visit Diagnoses Not on filedocumented in this encounter Care Teams Netezza Architect Relationship Specialty Start Date End Date Andrei Clark MD PCP - General Internal Medicine 12/11/20 Kandace Freedman OT [address] [place] [address] Occupational Therapist Occupational Therapy 03/15/21 documented as of this encounter
--- OUTSIDE RECORDS SUMMARY | 2024-11-17 14:27 | XMS_ITS | Encounter Summary ---
Author Organization [facility] Address [address] [place] [address] Phone Care Team Providers Care Air Defence Officer Name Role Phone Andrei Clark MD Primary Care Provider [phone] Encounter Details Date Type Department Care Team (Late st Contact Info) Description 02/04/2021 Telephone [facility] Movement Disorders [address] [place] [address] [place] [id number] Dioni Pérez MD PhD [address] [place], [place] [id number] Social History Tobacco Use Types Packs/Day Years [...] on file 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 Thanks * Telephone Encounter - Dioni Pérez MD PhD - 02/04/2021 6:03 PM CDT I discussed with her and placed referral to Kandace Freedman at [facility] OT. Q, would you please fax copy of my office note from 12/30, video EEG report from 01/31, and my note from today to her PCP Andrei Clark? I could not select him in Epic. Thanks Giorgi * Telephone Encounter - Eva Rushing RN - 02/04/2021 12:18 PM CDT Much appreciated. Certain topics are just better coming from the MD. * Telephone Encounter - Dioni Pérez MD PhD - 02/04/2021 12:17 PM CDT Oops, so sorry, just saw that this was from you, Eva. * Telephone Encounter - Dioni Pérez MD PhD - 02/04/2021 12:16 PM CDT Harley Quezada, Certainly, I understand. We discussed this at the visit but I am happy to call her and update her that this is how I think we should proceed. I will call her later this afternoon. Thanks, Giorgi * Telephone Encounter - Eva Rushing RN - 02/04/2021 8:[address] 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 I see you mentioned this in the last visit, but this is a big diagnosis to relay and not easily accepted. I can start the conversation, but either way it is likely one you will need to call and review as well. Let me know your thoughts since you have met her. Thanks ----- Message from Dioni Pérez MD PhD sent at 02/03/2021 5:38 PM CDT ----- Regarding: we should consider referral to occupational therapy for cognitive behavioral therapy Thanks Gudelia. Eva and Pilar--she had some involuntary movements captured on video [...] referral. Thanks Giorgi ----- Message ----- From: BryanGudelia Sent: 02/03/2021 10:56 AM CDT To: Dioni [...] on filedocumented in this encounter Care Teams Air Defence Officer Relationship Specialty Start Date End Date Andrei Clark MD PCP - General Internal Medicine 12/11/20 documented as of this encounter
--- OUTSIDE RECORDS SUMMARY | 2024-11-17 14:27 | XMS_ITS | Encounter Summary ---
Author Organization [facility] Address [address] [place] [address] Phone Care Team Providers Care Superintendent Division Name Role Phone Andrei Clark MD Primary Care Provider [phone] Kandace Freedman OT Unavailable [phone] Christina Brunson MD Unavailable [phone] Encounter Details Date Type Department Care Team (Late st Contact Info) Description 09/07/2022 Telephone [facility] Advanced Medicine 13th [place] [address] [place] [address] Hilda Quintanilla RN Social History [...] on file 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 Patient verbalized understanding. documented in this encounter Plan of Treatment Not on file documented as of this encounter Visit Diagnoses Not on filedocumented in this encounter Care Teams Superintendent Division Relationship Specialty Start Date End Date Andrei Clark MD PCP - General Internal Medicine 12/11/20 Kandace Freedman, OT [address] [place] [address] Occupational Therapist Occupational Therapy 03/15/21 Christina Brunson MD [address] [place] [address] Obstetrics and Gynecology 08/02/22 documented as of this encounter
--- OUTSIDE RECORDS SUMMARY | 2024-11-17 14:28 | XMS_ITS | Encounter Summary ---
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
--- OUTSIDE RECORDS SUMMARY | 2024-11-17 14:28 | XMS_ITS | Encounter Summary ---
Author Organization [facility] Address [address] [address] Care Team Providers Care Adhesive Bandage Machine Operator Name Role Phone Dorota Martinez MD Primary Care Provider [phone] Reason for Visit * Reason Comments Ear Problem Pressure / humming i n ears Encounter Details Date Type Department Care Team (Late st Contact Info) Description 04/04/2019 1:00 PM CDT Office Visit [facility] [address] [place] [address] Jose Roberto Zaragoza MD [address] [facility] [address] [address] Deviated nasal septum (Primary Dx); Sensorineural hearing loss (SNHL) of both ears; Benign paroxysmal vertigo of both ears; Tinnitus of both ears; Endolymphatic hydrops of right ear Social History Tobacco Use Types Packs/Day Years [...] on file 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 Gender Identity Not on file Sexual Orientation Not on file documented as of this encounter Last Filed Vital Signs Vital Sign Reading Time Taken Comments Blood Pressure 156/94 04/04/2019 12:51 PM CDT Pulse 111 04/04/2019 12:51 PM CDT Temperature - - Respiratory Rate 16 04/04/2019 12:5 1 PM CDT Oxygen Saturation 97% 04/04/2019 12: 51 PM CDT Inhaled Oxygen Concentration - - Weight 100.9 kg (222 lb 6.4 oz) 019 12:51 PM CDT Height 162.6 cm (5' 4 ) 04/04/2019 12:5 1 PM CDT Body Mass Index 38.17 04/04/2019 12:51 PM CDT documented in this encounter Ordered Prescriptions Prescription Sig Dispense Quantity Refills Last Filled Start Date End Date triamterene-hydroCH LOROthiazide (DYAZIDE) 37.5-25 mg per tablet/capsuleIndic ations:Endolymphati c hydrops of right ear Take 1 tablet/caps ule by mouth daily 30 tablet/capsule 11 04/04/2019 04/04/2019 documented in this encounter Progress Notes * Jose Roberto Zaragoza MD - 04/04/2019 1:00 PM CDT Subjective/Objective Patient ID: Kylee Guo is a 33 y.o. female. Visit Date: 04/04/2019 Chief Complaint: Ear Problem (Pressure / humming in ears) History of Present Illness: I was asked to consult on this patient by Dr. Martinez for treatment of the pressure and humming and roaring in the ear where her hearing drops out for sometimes about a day in the right ear and she also has episodes of feeling dizzy when this is happening which is a implies that she has endolymphatic hydrops affecting the right ear. Also with audiometric testing she has decreased hearing in a sensorineural function down to 30 decibels at 500 hertz in the right ear only and the remainder of all ofher hearing is is perfect with SRT of 5 decibels in the left ear and SRT of 15 decibels in the right ear and her tympanometry is normal. 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 She had episodes of vertigo in September that lasted until the end of October and then in December she went to the hospital emergency room because he had extreme decreased hearing and loss of some of her motor control or coordination at which time she was evaluated and felt to have intracranial hypertension. This has since been dismissed as a problem. She does have comorbidities of type 2 diabetes mellitus well and previous deep vein thrombosis and polycystic ovarian disease Past Medical History: Diagnosis Date ??? Diabetes mellitus (CMS/HCC) ??? DVT (deep venous thrombosis) (CMS/HCC) ??? Idiopathic intracranial hypertension ??? Polycystic ovarian disease ??? Renal disorder Patient Active Problem List Diagnosis ??? Pyelonephritis ??? Right flank pain ??? Idiopathic intracranial hypertension ??? Hypertensive retinopathy of both eyes Past Surgical History: Procedure Laterality Date ??? SECTION ??? CHOLECYSTECTOMY ??? LUMBAR PUNCTURE WO INJECTION, DIAGNOSTIC N/A 02/11/2019 ??? TUBAL LIGATION Current Outpatient Medications on File Prior to Visit Medication Sig Dispense Refill ??? amLODIPine (NORVASC) 5 mg tablet Take 10 mg by mouth daily ??? fluticasone (FLONASE) 50 mcg/actuation nasal spray ??? glyBURIDE (DIABETA) 2.5 mg tablet Take 2.5 mg by mouth daily with breakfast ??? HYDROcodone-acetaminophen (NORCO) 5-325 mg per tablet Take 1 tablet by mouth every 6 (six) hours as needed ??? insulin glargine (LANTUS,BASAGLAR) 100 unit/mL (3 mL) insulin pen 20 Units daily ??? metoprolol (LOPRESSOR) 25 mg tablet ??? acetaZOLAMIDE (DIAMOX) 250 mg tablet Take 250 mg by mouth 2 (two) times a day ??? atorvastatin (LIPITOR) 10 mg tablet ??? cephalexin (KEFLEX) 500 mg capsule ??? DOXYCYCLINE 100 mg tablet ??? furosemide (LASIX) 20 mg tablet Take 20 mg by mouth daily as needed ??? metFORMIN (GLUCOPHAGE) 500 mg tablet Take 500 mg by mouth ??? OLANZapine (ZyPREXA) 5 mg tablet Take 1 tablet (5 mg total) by mouth nightly 5 tablet 0 ??? POTASSIUM CHLORIDE ER 10 mEq CR tablet ??? propranolol (INDERAL) 20 mg tablet Take 20 mg by mouth daily ??? [DISCONTINUED] metoprolol (LOPRESSOR) 50 mg tablet Take 50 mg by mouth 2 (two) times a day No current facility-administered medications on file prior to visit. Allergies Allergen Reactions ??? Metoclopramide Anxiety ??? Ondansetron Anxiety ??? Phenergan [Promethazine] Anxiety ??? Prochlorperazine Anxiety Social History Tobacco Use ??? Smoking status: Current Some Day Smoker ??? Smokeless tobacco: Never Used Substance Use Topics ??? Alcohol use: Never Frequency: Never ??? Drug use: Never Family History Problem Relation Age of Onset ??? Hypertension Mother ??? Hypertension Father ??? Diabetes Father Review of Systems Constitutional: Positive for diaphoresis. Negative for fatigue and fever. HENT: Positive for congestion, ear pain, hearing loss, rhinorrhea and sinus pressure. Negative for ear discharge and sinus pain. Eyes: Negative for redness and visual disturbance. Respiratory: Positive for cough. Negative for wheezing. Cardiovascular: Negative for palpitations and leg swelling. Gastrointestinal: Negative for abdominal distention. Endocrine: Negative for polydipsia and polyuria. Genitourinary: Negative for dysuria, frequency and urgency. Musculoskeletal: Negative for arthralgias and neck pain. Skin: Negative for color change and rash. Allergic/Immunologic: Positive for environmental allergies. Negative for immunocompromised state. Neurological: Positive for dizziness. Negative for tremors and headaches. Hematological: Does not bruise/bleed easily. Psychiatric/Behavioral: Negative for behavioral problems. Physical Exam: Constitutional: Vitals: 04/04/19 1251 BP: 156/94 BP Location: Left arm Patient Position: Sitting Pulse: 111 Resp: 16 SpO2: 97% Weight: 100.9 kg (222 lb 6.4 oz) Height: 162.6 cm (5' 4 ) Well-nourished, well-appearing, in no apparent distress. Communicates appropriately for age with normal phonation. Neurologic/psychiatric: Alert and oriented appropriately for age to date, place, person. Cranial nerves 2-12 grossly intact bilaterally. Appropriate affect/mood. Head and face: Overall appearance within normal limits. No lesions, masses, or tenderness. Facial strength normal. Salivary glands normal. No sinus tenderness to palpation. Ears: Normal pinna and postauricular area. Otoscopic examination: normal external auditory canal and tympanic membrane bilaterally without restricted mobility. Middle ear space clear, without effusion or infection. Hearing evaluation reveals the low-frequency sensorineural loss that I had noted above and correlated with her diagnosis of endolymphatic hydrops Nose: External appearance normal without lesions or masses. Internal exam: nasal mucosa abnormal, septum intact/midline, inferior turbinates normal. Oral cavity: Lips, dentition, gingiva normal. Oral mucosa including hard palate, tongue, buccal mucosa, floor of mouth normal. No lesions or masses. Oropharynx: No lesions or masses of lateral/posterior pharyngeal ramos or tonsils. Symmetric appearing tissues. No pooling of secretions. Hypopharynx/larynx/nasopharynx: unable to visualize these areas using transoral mirror technique due to the gag reflex and patient discomfort. Neck: Overall appearance within normal limits. No masses or lymphadenopathy. Salivary glands and thyroid gland normal to palpation. Trachea midline. Normal range of motion. Eyes: Extraocular movements intact. Gaze alignment normal. Respiratory: Breathing comfortably and quietly at rest. Normal respiratory effort without use of accessory muscles. Cardiovascular: Extremities without cyanosis or edema. Assessment/Plan Diagnoses and all orders for this visit: Deviated nasal septum (Primary) Sensorineural hearing loss (SNHL) of both ears - Audiometry with tympanometry; Future I believe this will stabilize if we can manage the endolymphatic hydrops with the triamterene Benign paroxysmal vertigo of both ears Tinnitus of both ears Endolymphatic hydrops of right ear - triamterene-hydroCHLOROthiazide (DYAZIDE) 37.5-25 mg per tablet/capsule; Take 1 tablet/capsule bymouth daily This is the most symptomatic problem and I believe this is causing most of her disease listed aboveand therefore will treat this with the endolymphatic hydrops medication triamterene/hydrochlorothiazide Note dictated with voice recognition software. Mild tax examiner variances may occur. Jose Roberto Zaragoza MD documented in this encounter Plan of Treatment Not on file documented as of this encounter Visit Diagnoses Diagnosis Deviated nasal septum- Primary Sensorineural hearing loss (SNHL) of both ears Benign paroxysmal vertigo of both ears Tinnitus of both ears Unspecified tinnitus Endolymphatic hydrops of right ear documented in this encounter Discontinued Medications Medication Sig Discontinue Reason Start Date End Da te metoprolol (LOPRESSOR) 50 mg tablet Take 50 mg by mouth 2 (two) times a day Duplicate order 04/04/2019 documented as of this encounter Care Teams Adhesive Bandage Machine Operator Relationship Specialty Start Date End Date Dorota Martinez MD [facility] 1 [place] [address] PCP - General 02/11/19 12/10/20 documented as of this encounter
--- OUTSIDE RECORDS SUMMARY | 2024-11-17 14:28 | XMS_ITS | Encounter Summary ---
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 Gender Identity Not on file Sexual Orientation Not on file documented as of this encounter Medications at Time of Discharge acetaZOLAMIDE (DIAMOX) 250 mg tablet Take 250 mg by mouth 2 (two) times a day 1 amLODIPine (NORVASC) 5 mg tablet Take 10 mg by mouth daily 1 atorvastatin (LIPITOR) 10 mg tablet 01/22/2019 1 cephalexin (KEFLEX) 500 mg capsule 02/07/2019 1 fluticasone (FLONASE) 50 mcg/actuation nasal spray [...] mg by mouth 08/14/2014 1 metoprolol (LOPRESSOR) 50 mg tablet Take 50 mg by mouth 2 (two) times a day 9 OLANZapine (ZyPREXA) 5 mg tabletIndication s:complex migraine head ache Take 1 tablet (5 mg total) by mouth nightly 5 tablet 02/05/2019 1 propranolol (INDERAL) 20 mg tablet Take 20 mg by mouth daily 1 documented as of this encounter Discharge Disposition Disposition Code Departure Means Destination Discharge to home or self care documented in this encounter Plan of Treatment Not on file documented as of this encounter Procedures Procedure Name Priority Date/Time Associated Diagnosis Comments NEURO CT MR OUTSIDE REFERENCE Routine 02/15/2019 3:02 PM CDT Diagnosis unknown documented in this encounter Results * Neuro CT MR Outside Reference (02/15/2019 3:02 PM CDT) Impressions RAD_PACS_[facility] - 02/15/2019 3:02 PM CDT These images are for Reference purposes only and have not been reviewed by [facility]iology. ??There will be no report generated by a [facility] Radiologist. Narrative RAD_PACS_[facility] - 02/15/2019 3:02 PM CDT EXAMINATION: ??Images For Reference Purposes Only us Esau Miles MD IMG CT PROCEDURES Final Result RAD_PACS_[facility] documented in this encounter Visit Diagnoses Not on filedocumented in this encounter Care Teams Information Systems Coordinator Relationship Specialty Start Date End Date Dorota Martinez MD [address] [place], [place] [id number] PCP - General 02/11/19 12/10/20 documented as of this encounter
--- OUTSIDE RECORDS SUMMARY | 2024-11-17 14:28 | XMS_ITS | Encounter Summary ---
Author Organization [facility] Address [address] [place] [address] Phone Care Team Providers Care Screen Printing Supervisor Name Role Phone Dorota Martinez MD Primary Care Provider [phone] Encounter Details Date Type Department Care Team (Late st Contact Info) Description 02/26/2019 Orders Only [facility] Neurosurgery [address] [facility] Advanced Medicine 6th [place] [address] [place] [address] Jazmin Webber, A Social History Tobacco Use Types Packs/Day Years [...] on file 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 Medication Sig Dispense Quantity Refills Last Filled Start D ate End Date metoprolol (LOPRESSOR) 25 mg tablet 02/20/2019 01/25/2021 POTASSIUM CHLORIDE ER 10 mEq CR tablet 02/20/2019 01/26/20 21 DOXYCYCLINE 100 mg tablet 02/20/2019 01/25/2021 added in this encounter Care Teams Screen Printing Supervisor Relationship Specialty Start Date End Date Dorota Martinez MD [address] [place] [address] 1 [place] [address] PCP - General 02/11/19 12/10/20 documented as of this encounter
--- OUTSIDE RECORDS SUMMARY | 2024-11-17 14:28 | XMS_ITS | Encounter Summary ---
Author Organization [facility] Address [address] [place] [address] Care Team Providers Care Conservation Of Resources Commissioner Name Role Phone Dorota Martinez MD Primary Care Provider [phone] Reason for Referral * Diagnostic Imaging (Routine) - Closed Specialty Diagnoses / Procedures Referred By Tiburcio t Referred To Contact Radiology Diagnoses Idiopathic intracranial hypertension Procedures MR Pituitary Brain W WO Contrast Esau Miles MD Phone: tel: fax: [address] [address] Referral ID Status Reason Start Date Expiration Date Visits Re quested Visits Authorized [id number] Closed 02/12/2019 08/23/2020 1 1 Reason for Visit * Diagnostic Imaging (Routine) - Closed Specialty Diagnoses / Procedures Referred By Tiburcio caicedo Referred To Contact Radiology Diagnoses Idiopathic intracranial hypertension Procedures MR Pituitary Brain W WO Contrast Esau Miles MD Phone: tel: fax: [address] [address] Referral ID Status Reason Start Date Expiration Date Visits Re quested Visits Authorized [id number] Closed 02/12/2019 08/23/2020 1 1 Encounter Details Date Type Department Care Team (Latest Contact Info) Description 02/25/2019 6:59 AM CDT - 02/25/2019 11:59 PM CDT Hospital Encounter [facility] [address] [place] [address] Esau Miles MD [address] [address] Idiopathic intracranial hypertension Discharge Disposition: Discharge to home or self [...] file 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 Dictated by: Blossom Arellano M.D. The radiology attending physician has personally reviewed this study, and had reviewed and/or edited this written report and agrees with it. Electronically signed by: Lorri Finch M.D. Narrative 02/25/2019 2:15 PM CDT EXAMINATION: Magnetic resonance imaging (MRI) of the brain and brainstem without and with contrast. HISTORY: Idiopathic intracranial hypertension, reported empty sella on MR TECHNIQUE: Multiplanar multi-weighted MRI of the brain and brainstem was performed without and with ??intravenous contrast using the pituitary protocol. This included acquisitions showing dynamic contrast enhancement of the sella turcica in the coronal plane and a post-contrast T1-Stealth sequence. Contrast information: 20 mL Dotarem COMPARISON: ??CT head on 02/05/2019.. FINDINGS: The pituitary and sella are normal. ??Specifically, the sella is normal in size. ??There is no expansion of the sella by cerebrospinal fluid. ??The pituitary gland is noted at the floor of the sella but not completely compressed. ??The pituitary stalk is midline. ??The optic chiasm and orbits are normal. There [...] carotid arteries and basilar artery. Procedure Note Lorri Finch MD - 02/25/2019 EXAMINATION: Magnetic resonance imaging (MRI) of the brain and brainstem without and with contrast. HISTORY: Idiopathic intracranial hypertension, reported empty sella on MR TECHNIQUE: Multiplanar multi-weighted MRI of the brain and brainstem was performed without and with intravenous contrast using the pituitary protocol. This included acquisitions showing dynamic contrast enhancement of the sella turcica in the coronal plane and a post-contrast T1-Stealth sequence. Contrast information: 20 mL Dotarem COMPARISON: CT head on 02/05/2019.. FINDINGS: The pituitary and sella are normal. Specifically, the sella is normal in size. There is no expansion of the sella by cerebrospinal fluid. The pituitary gland is noted at the floor of the sella but not completely compressed. The pituitary stalk is midline. The optic chiasm and orbits are normal. [...] carotid arteries and basilar artery. IMPRESSION: No significant sellar expansion to suggest empty sella. Dictated by: Blossom Mingshin Adan, M.D. The radiology attending physician has personally reviewed this study, and had reviewed and/or edited this written report and agrees with it. Electronically signed by: Lorri Finch M.D. Esau Miles MD IMG MRI PROCEDURES Final Result documented in this encounter Visit Diagnoses Diagnosis Idiopathic intracranial hypertension Benign intracranial hypertension documented in this encounter Administered Medications Inactive Administered Medications - up to 3 most recent administrations Medication Order MAR Action Action Date Dose Rate Site gadoterate meglumine (DOTAREM) 0.5 mmol/mL injection 20.32 mL 20.32 mL (0.1 mmol/kg ? 101.6 kg), intravenous, Once in imaging, contrast, Starting on 02/25/19 at 0753, For 1 dose, Imaging Protocol Orders Given 02/25/2019 7:53 AM CDT 20 mL documented in this encounter Orders Medications Ordered That Brendan ht Not Have Been Administered Count Last Ordered Date First Ordered Date gadoterate meglumine (DOTARE M) 0.5 mmol/mL injection 20.32 mL 1 02/25/2019 documented in this encounter Care Teams Conservation Of Resources Commissioner Relationship Specialty Start Date End Date Dorota Martinez MD [address] [place] [address] PCP - General 02/11/19 12/10/20 documented as of this encounter
--- OUTSIDE RECORDS SUMMARY | 2024-11-17 14:28 | XMS_ITS | Encounter Summary ---
Author Organization [facility] Address [address] [place] [address] Phone Care Team Providers Care Supervisor Machine Setter Name Role Phone Dorota Martinez MD Primary Care Provider [phone] Encounter Details Date Type Department Care Team (Late st Contact Info) Description 02/26/2019 11:10 AM CDT Office Visit [facility] Neurosurgery [address] [facility] 6th [place] [address] [place] [address] Esau Miles MD [address] [facility] [address] [place] [address] Headache disorder (Primary Dx) Social History Tobacco Use Types Packs/Day Years Used Date Smoking Tobacco: Some Days Smokeless Tobacco: Never Tobacco Cessation:Ready to Q uit: No; Counseling Given: Yes Alcohol Use Standard Drinks/Week Comments Never 0 (1 standard drink = 0.6 oz pur e alcohol) AUDIT-C Answer Date Recorded Frequency of Alcohol Consumption Never 02/04/2019 Average Number of Drinks Not on file 019 Frequency of Binge Drinking Not on file 01/18 Comments No Sex and Gender Information Value Date Recorded Sex Assigned at Not on file 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 Gender Identity Not on file Sexual Orientation Not on file documented as of this encounter Last Filed Vital Signs Vital Sign Reading Time Taken Comments Blood Pressure 148/92 02/26/2019 10:55 AM CDT Pulse 103 02/26/2019 10:55 AM CDT Temperature - - Respiratory Rate - - Oxygen Saturation - - Inhaled Oxygen Concentration - - Weight 102.5 kg (226 lb) 02/26/2019 10:55 AM CDT Height 162.6 cm (5' 4 ) 02/26/2019 10:55 AM CDT Body Mass Index 38.79 02/26/2019 10:55 AM CDT documented in this encounter Progress Notes * Esau Miles MD - 02/26/2019 11:10 AM CDT RETURN VISIT Subjective HISTORY OF PRESENT ILLNESS Patient return to the office for follow-up. She was last seen here on 02/11/2019 for possible IIH. Her complaints this morning included ???muscle weakness and pain-hips, hands, arms, legs, back ???. She reports having had a migraine for 6 days since we saw her last she states she currently has a 4/10 headache. The patient was evaluated in the Ophthalmology Clinic by Dr. Sergio Barrera. The patient was noted to have full visual samayoa. She is to return for a follow up eye exam in about 3 weeks. She is continuing diamox 250 mg bid. Patient continues to do poorly with regards to control of her diabetes. She states her serum glucose levels may range between 300- 400. She has had markedly elevated A1Cs. She was advised to follow up with her primary care physician with regards to management of her diabetes. VITAL SIGNS BP 148/92 Pulse 103 Ht 162.6 cm (5' 4 ) Wt 102.5 kg (226 lb) BMI 38.79 kg/m?? ALLERGIES She is allergic to metoclopramide; ondansetron; phenergan [promethazine]; and prochlorperazine. MEDICATIONS Current Outpatient Medications: ??? acetaZOLAMIDE (DIAMOX) 250 mg tablet, Take 250 mg by mouth 2 (two) times a day, Disp: , Rfl: ??? amLODIPine (NORVASC) 5 mg tablet, Take 10 mg by mouth daily, Disp: , Rfl: ??? atorvastatin (LIPITOR) 10 mg tablet, , Disp: , Rfl: ??? cephalexin (KEFLEX) 500 mg capsule, , Disp: , Rfl: ??? DOXYCYCLINE 100 mg tablet, , Disp: , Rfl: ??? fluticasone (FLONASE) 50 mcg/actuation nasal spray, , Disp: , Rfl: ??? furosemide (LASIX) 20 mg tablet, Take 20 mg by mouth daily as needed, Disp: , Rfl: ??? glyBURIDE (DIABETA) 2.5 mg tablet, Take 2.5 mg by mouth daily with breakfast, Disp: , Rfl: ??? HYDROcodone-acetaminophen (NORCO) 5-325 mg per tablet, Take 1 tablet by mouth every 6 (six) hours as needed, Disp: , Rfl: ??? insulin glargine (LANTUS,BASAGLAR) 100 unit/mL (3 mL) insulin pen, 20 Units daily, Disp: , Rfl: ??? metFORMIN (GLUCOPHAGE) 500 mg tablet, Take 500 mg by mouth, Disp: , Rfl: ??? metoprolol (LOPRESSOR) 25 mg tablet, , Disp: , Rfl: ??? metoprolol (LOPRESSOR) 50 mg tablet, Take 50 mg by mouth 2 (two) times a day, Disp: , Rfl: ??? OLANZapine (ZyPREXA) 5 mg tablet, Take 1 tablet (5 mg total) by mouth nightly, Disp: 5 tablet, Rfl: 0 ??? POTASSIUM CHLORIDE ER 10 mEq CR tablet, , Disp: , Rfl: ??? propranolol (INDERAL) 20 mg tablet, Take 20 mg by mouth daily, Disp: , Rfl: Objective PHYSICAL EXAM Patient was alert. She was oriented x3. Speech was clear. Conversation baseline. Cranial nerve examshowed pupils were equal reactive to light. Extraocular eye movements were full. Patient was noted funduscopic exam to have flat appearing optic discs. The patient had venous pulsations noted in her right eye on funduscopic exam. Face was symmetrical. Tongue and palate midline. Motor exam showed symmetrical strength both upper lower extremities. Pinprick was objectively sharp. Reflexes about 1+. Coordination appeared intact. Gait was stable. REVIEW OF IMAGING No new imaging ASSESSMENT/PLAN The patient was told I did not recommend proceeding with a ventricular shunt. It was explained thatI will was not sure she currently had I IH. It was recommended she keep her appointments with her simulation developer and primary care doctor. She was told we would plan to see her again in follow-up in about 6 weeks. Esau Miles MD documented in this encounter Plan of Treatment Not on file documented as of this encounter Visit Diagnoses Diagnosis Headache disorder- Primary Headache documented in this encounter Care Teams Supervisor Machine Setter Relationship Specialty Start Date End Date Dorota Martinez MD [address] [facility] [address] [place] [address] PCP - General 02/11/19 12/10/20 documented as of this encounter
--- OUTSIDE RECORDS SUMMARY | 2024-11-17 14:28 | XMS_ITS | Encounter Summary ---
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 ??There will be no report generated by a [facility] Radiologist. Narrative RAD_PACS_[facility] - 02/15/2019 2:59 PM CDT EXAMINATION: ??Images For Reference Purposes Only us Esau Miles MD IMG CT PROCEDURES Final Result RAD_PACS[facility] documented in this encounter Visit Diagnoses Not on filedocumented in this encounter Care Teams Chief Psychologist Relationship Specialty Start Date End Date Dorota Martinez MD [address] [place], [place] [phone] PCP - General 02/11/19 12/10/20 documented as of this encounter
--- OUTSIDE RECORDS SUMMARY | 2024-11-17 14:28 | XMS_ITS | Encounter Summary ---
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 ??There will be no report generated by a [facility] Radiologist. Narrative RAD_PACS_[facility] - 02/15/2019 3:44 PM CDT EXAMINATION: ??Images For Reference Purposes Only us Esau Miles MD IMG CT PROCEDURES Final Result RAD_PACS[facility] documented in this encounter Visit Diagnoses Not on filedocumented in this encounter Care Teams Oyster Shipper Relationship Specialty Start Date End Date Dorota Martinez MD [address] [place], [place] [phone] PCP - General 02/11/19 12/10/20 documented as of this encounter
--- OUTSIDE RECORDS SUMMARY | 2024-11-17 14:29 | XMS_ITS | Encounter Summary ---
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 Miles and he recommended that the pt should contact her PCP could be medication reaction or can go to the ED.. Spoke with pt and she will contact PCP to get in today to be seen. If any issues with that she will go to ED. * Telephone Encounter - Rosita Daniels RN - 02/14/2019 10:22 AM CDT Pt called with c/o migraine headache and it started yesterday morning when she awoke and is a 9/10 and she is sitting in total darkness.( Pt had spinal tap on Monday02-11-19) Also she said that the left side of her tongue is swollen and some difficulity with speaking and the Right toes, legs, knees, and hip all painful. Toes and fingers are ice cold. I told her I would discuss with Dr Miles and get back with her after I talk with him. documented in this encounter Plan of Treatment Not on file documented as of this encounter Visit Diagnoses Not on filedocumented in this encounter Care Teams Software Build Engineer Relationship Specialty Start Date End Date Dorota Martinez MD [facility] [address] PCP - General 02/11/19 12/10/20 documented as of this encounter
--- OUTSIDE RECORDS SUMMARY | 2024-11-17 14:29 | XMS_ITS | Encounter Summary ---
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 ??There will be no report generated by a [facility] Radiologist. Narrative RAD_PACS_[facility]J - 02/15/2019 2:47 PM CDT EXAMINATION: ??Images For Reference Purposes Only us Esau Miles MD IMG XR PROCEDURES Final Result RAD_PACS[facility] documented in this encounter Visit Diagnoses Not on filedocumented in this encounter Care Teams Inker Relationship Specialty Start Date End Date Dorota Martinez MD [address] [place], [place] [phone] PCP - General 02/11/19 12/10/20 documented as of this encounter
--- OUTSIDE RECORDS SUMMARY | 2024-11-17 14:29 | XMS_ITS | Encounter Summary ---
Author Organization [facility] Address [address] [place] [address] Phone Care Team Providers Care Newsagent Name Role Phone Dorota Martinez MD Primary Care Provider [phone] Encounter Details Date Type Department Care Team (Late st Contact Info) Description 02/12/2019 Telephone 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 documented in this encounter Plan of Treatment Not on file documented as of this encounter Visit Diagnoses Not on filedocumented in this encounter Care Teams Newsagent Relationship Specialty Start Date End Date Dorota Martinez MD [address] [facility] [address] [place] [phone] PCP - General 02/11/19 12/10/20 documented as of this encounter
--- OUTSIDE RECORDS SUMMARY | 2024-11-17 14:29 | XMS_ITS | Encounter Summary ---
Author Organization [facility] Address [address] [place] [address] Phone Care Team Providers Care Nail Technician Teacher Name Role Phone Dorota Martinez MD Primary Care Provider Encounter Details Date Type Department Care Team (Late st Contact Info) Description 02/11/2019 Orders Only [facility] Neurosurgery [address] [facility] 6th [place] [address] [place] [phone] Jazmin Webber, [facility] Social History Tobacco Use Types Packs/Day Years [...] on file 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 metFORMIN (GLUCOPHAGE) 500 mg tablet Take 500 mg by mouth 08/14/2014 01/25/2021 fluticasone (FLONASE) 50 mcg/actuation nasal spray 11/30/2018 07/02/2021 cephalexin (KEFLEX) 500 mg capsule 02/07/2019 01/25/2021 atorvastatin (LIPITOR) 10 mg tablet 01/22/2019 12/30/2020 added in this encounter Care Teams Nail Technician Teacher Relationship Specialty Start Date End Date Dorota Martinez MD [address] [facility] 1 [place] [address] PCP - General 02/11/19 12/10/20 documented as of this encounter
--- OUTSIDE RECORDS SUMMARY | 2024-11-17 14:29 | XMS_ITS | Encounter Summary ---
Author Organization [facility] Address [address] [place] [address] Phone Care Team Providers Care Thermospray Operator Name Role Phone Dorota Martinez MD Primary Care Provider [phone] Reason for Referral * Diagnostic Imaging (Routine) - Closed Specialty Diagnoses / Procedures Referred By Tiburcio caicedo Referred To Contact Radiology Diagnoses Idiopathic intracranial hypertension Procedures MR Pituitary Brain W WO Contrast Esau Miles MD Phone: tel: fax: [address] [address] Referral ID Status Reason Start Date Expiration Date Visits Re quested Visits Authorized [id number] Closed 02/12/2019 08/23/2020 1 1 Encounter Details Date Type Department Care Team (Late st Contact Info) Description 02/11/2019 8:00 AM CDT Office Visit [facility] Neurosurgery [address] 6th [place] [address] [place] [address] Esau Miles MD [address] [address] Idiopathic intracranial hypertension (Primary Dx) Social History Tobacco Use Types [...] on file 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 Gender Identity Not on file Sexual Orientation Not on file documented as of this encounter Last Filed Vital Signs Vital Sign Reading Time Taken Comments Blood Pressure 125/86 02/11/2019 8:15 AM CDT Pulse 74 02/11/2019 8:15 AM CDT Temperature - - Respiratory Rate - - Oxygen Saturation - - Inhaled Oxygen Concentration - - Weight 101.6 kg (224 lb) 02/11/2019 8:15 AM CDT Height 162.6 cm (5' 4 ) 02/11/2019 8:15 AM CDT Body Mass Index 38.45 02/11/2019 8:15 AM CDT documented in this encounter Progress Notes * Esau Miles MD - 02/11/2019 8:00 AM CDT HISTORY AND PHYSICAL Kylee Guo 1985 Date of Consultation 02/11/2019 Physician: Esau Miles MD HPI: Kylee Guo is a 33 y.o. female referred to Neurosurgery office after being evaluated by theneurosurgery house staff in the [facility] emergency room on 02/08/2019 for evaluation for possible idiopathic intracranial hypertension. The patient reported chief complaint weakness, migraine type headaches she has had for years, blurred vision over the past month with occasional floaters and difficulty with fixation, fatigue, aching in her muscles, swelling of her hands and feet, numbness in her hands and feet, slurred speech, short-term memory problems, feeling like she is foggy. Patient reports she was assessed by neurologist in [facility], [place]. Her PCP is Lynn Sotelo. She reports having an MRI scan that showed ???empty sella?? . He she also reports having a spinal tap with an opening pressure of 40. She reports she remained prone throughout the lumbarpuncture laying on her stomach. Her headaches were not relieved following the spinal tap. The patient also reported a weight gain over the past 6 months of 44 lb. The patient was seen by Dr Leon for ophthalmology consultation while in emergency room on the evening of 02/07/2019 for blurry vision. The she reported a history of blurry vision had a distance and near that glasses do not correct. She states classes make her eyes burn. She reported prolonged after images with bright lights, along with occasional flashes and floaters, and rare history of TF pole a for greater than a year. There has been no increase in frequency recently. She had not been assessed formally by an labour market economist with regards to her IIH. She was noted to not have papilledema.It was felt her visual changes were more likely secondary to macular disease then to pseudotumor. Migraine headaches were also felt to possibly play a role. It was recommended she follow- up in the [facility] at [phone] to schedule follow-up for completion of her of ophthalmologic evaluation. PAST MEDICAL HISTORY Surgery 1. sectionX2; 2. Cholecystectomy; 3. Tubal ligation; Medical 1. Diabetes mellitus; patient reportedly takes Lantus. She was somewhat unsure as the dose but thought 20 units a day. She reports her A1C was as high as 12 more recently it was around 8. 2. DVT 3. Idiopathic intracranial hypertension; 4. Polycystic ovarian disease; 5. Polycystic kidney disease per patient; 6. Bipolar disorder/anxiety FAMILY HISTORY Father side-diabetes; hypertension; coronary artery disease. Mother's side- hypertension; stroke; cancer. Also of note family history the include seizures, cataplexy, narcolepsy MEDICATIONS 1. Diamox 250 mg b.i.d. 2. Amlodipine 3. Furosemide 4. [place] 5. Insulin 6. Lopressor 7. Propranolol 8. Olanzapine ALLERGIES 1. metoclopramide; 2. ondansetron; 3. phenergan 4. prochlorperazine. SOCIAL HISTORY Patient was seen in the office with her boyfriend. She has 2 children. She has worked for the [employer]. She has not worked recently. Patient resides in [facility]. She reports that she has been smoking. She has never used smokeless tobacco. She reports that shedoes not drink alcohol. REVIEW OF SYSTEMS Review of systems per patient/signed in form except as noted above was negative for cardiovascular,respiratory, endocrine, GI, , dermatologic, hematologic, or musculoskeletal symptoms. PHYSICAL EXAM Patient was alert. She is oriented x3. Speech was clear. Mental status baseline. Cranial nerve examshowed her pupils to be 3/3 round reactive to light. Extraocular movements appeared full. Fundi were difficult to evaluate but discs appeared flat. Visual samayoa appeared grossly full on confrontation. Face was symmetrical. Tongue palate midline. Motor exam showed her to have proximal lower extremity weakness with cyst difficulty standing from a sitting position in a chair. The patient had swelling in both lower extremities which she reports has been a chronic finding over the past few weeks. The she was noted to have significant central obesity with stria over her abdomen. There is no drift on [place]. Pinprick was objectively sharp. Reflexes about 1 to 2+. Coordination appeared intact. Gaitwas stable. IMAGING On available ASSESSMENT AND PLAN Ms. Guo is a 33 y.o. female seen in the office for evaluation of possible idiopathic intracranialhypertension. The etiology of her visual complaints are not clear as per the ophthalmology consultation in the emergency room. There was no papilledema noted. The patient has a number complaints thatare not typical for IIH including weakness, numbness and tingling, slurred speech, swelling in her hands and feet, muscle fatigue. She has a long history of migraine headaches have been treated medically for number years. The patient underwent a lumbar puncture reportedly a couple days ago that showed an opening pressure of 40. However she reports she was prone throughout the lumbar procedure which raises questions concerning her true ICP. It was recommended the patient undergo a repeat lumbar puncture in the radiology suite following her office visit. It was also recommend the patient have laboratory testing including pituitary hormones such as ACTH, cortisol, prolactin, IGF-1, TSH, and free T4. She is also to have a CMP and A1C. Pending results of her laboratory studies she may benefit from a MRI scan with the pituitary protocol. It was also recommended the patient follow up within the next few days at the [facility]. She is to return to the Neurosurgery office for follow-up visit in about 2 weeks. Esau Miles MD documented in this encounter Plan of Treatment Not on file documented as of this encounter Results * MR Pituitary Brain [...] by: Lorri Finch M.D. Esau Miles MD IM MRI PROCEDURES Final Result * (ABNORMAL) Comprehensive metabolic panel (02/11/2019 10:19 AM CDT) Sodium 136 135 - 145 mmol/L [facility] Potassium, pl 3.8 3.3 - 4.9 mmol/L [facility] Chloride 104 97 - 110 mmol/L [facility] CO2 23 22 - 32 mmol/L [facility] Anion gap 9 2 - 15 mmol/L [facility] BUN 15 8 - 25 mg/dL [facility] Creatinine 0.59(L) 0.60 - 1.10 mg/dL [facility] Glucose 267(H) 70 - 199 mg/dL [facility] Comment: Interpretive Data Fasting glucose >/= 126 [...] interpretive data was last revised 2017. Calcium 9.3 8.5 - 10.3 mg/dL [facility] Bilirubin, total <0.2(L) 0.1 - 1.2 mg/dL [facility] Protein, pl 7.9 6.5 - 8.5 g/dL [facility] Albumin 4.3 3.5 - 5.0 g/dL [facility] Alk phos 85 40 - 130 Units/L [facility] ALT 28 7 - 45 Units/L [facility] AST 27 10 - 45 Units/L [facility] Blood specimen (specimen) 02/11/2019 10:19 AM CDT 02/11/2019 10:43 AM CDT Narrative [facility] - 02/11/2019 11:35 AM CDT us Esau Miles MD LAB BLOOD ORDERABLES Final Resu lt [facility] Department [place] [address] * Cortisol (02/11/2019 10:19 AM CDT) [facility] Cortisol 5.8 3.7 - 19.4 mcg/dL [facility] Comment: Interpretive Data Normal Range: ??3.7 - 19.4 mcg/dL; ??Evening: ??Half of morning value. ?? This analyte undergoes marked diurnal variation. ??Ranges indicated apply to morning specimens. ?? Current interpretive data was last revised 2014. Blood specimen (specimen) 02/11/2019 10:19 AM CDT 02/11/2019 10:43 AM CDT Narrative [facility] - 02/11/2019 12:30 PM CDT Esau Miles MD LAB BLOOD ORDERABLES Final Resu lt Performing Organization Address City/[facility] Co de Phone Number [facility] [place] [address] * Prolactin (02/11/2019 10:19 AM CDT) Prolactin 6.6 5.2 - 26.5 ng/mL [facility] Blood specimen (specimen) 02/11/2019 10:19 AM CDT 02/11/2019 10:43 AM CDT Narrative [facility] - 02/11/2019 12:23 PM CDT Esau Miles MD LAB BLOOD ORDERABLES Final Resu lt Performing Organization Address [facility] de Phone Number [facility] [place] [address] * (ABNORMAL) Hemoglobin A1c (02/11/2019 10:19 AM CDT) Hgb A1C 9.2(H) 4.0 - 5.6 % [facility] Estimated Average Glucose 217 mg/dL [facility] Comment: The ADA recommends reporting an estimated Average Glucose (eAG) with all Hemoglobin A1c results using the equation derived from a study of 507 normal and diabetic adults. ??Minority populations were underrepresented and children were not included. ?? (Diabetes Care 31:7749-8203, 2008). ??The eAG is not equivalent to a fasting glucose. Blood specimen (specimen) 02/11/2019 10:19 AM CDT 02/11/2019 10:43 AM CDT Narrative [facility] - 02/11/2019 11:06 AM CDT Esau Miles MD LAB BLOOD ORDERABLES Final Resu lt Performing Organization Address [facility] Co de Phone Number [facility] Department [place] [address] * Insulin-like growth factor (IGF-1) (02/11/2019 10:19 AM CDT) [facility] Insulin-like growth factor 1 (IGF-1) 69 60 - 280 ng/mL [facility] Comment: Interpretive Data Magdi Stage ? Male ? Female ?I ?80-250 ? 80-320 ? II ? 100-450 ?120-450 ??III ? 250-500 ?250-550 ?? IV ? 225-600 ?225-600 ?V ? 225-500 ?180-500 Assay calibrated to WHO and instituted at [facility] 03/2018. References: 1. [employer] IGF-1 Package Insert 2017-08, V 1.0. 2. [employer] IGFMS entry ([email or web address]-catalog/Overview/60236) accessed 03-28-2018. 3. Clemente M, Osmin N, Jessica RT et al. J Clin Endocrinol Metab 2014;99:3413-2066. Current interpretive data was last revised on 2018. Testing performed by: [facility], [facility] [place]., [address] Blood specimen (specimen) 02/11/2019 10:19 AM CDT 02/11/2019 11:06 AM CDT [facility]ative [facility] - 02/11/2019 11:58 AM CDT us Esau Miles MD LAB BLOOD ORDERABLES Final Resu lt [facility] [place] [address] * (ABNORMAL) T4, free (02/11/2019 10:19 AM CDT) Free T4 0.88(L) 0.90 - 1.70 ng/dL [facility] Blood specimen (specimen) 02/11/2019 10:19 AM CDT 02/11/2019 10:43 AM CDT Narrative [facility] - 02/11/2019 11:35 AM CDT Esau Miles MD LAB BLOOD ORDERABLES Final Resu lt [facility] [place] [address] * TSH (02/11/2019 10:19 AM CDT) Pathologist [facility] Thyroid Stimulating Hormone 1.78 0.30 - 4.20 mcIUnit/mL [facility] Blood specimen (specimen) 02/11/2019 10:19 AM CDT 02/11/2019 10:43 AM CDT Narrative [facility] - 02/11/2019 11:35 AM CDT Esau Miles MD LAB BLOOD ORDERABLES Final Resu lt [facility] Department [place] [address] * ACTH (02/11/2019 10:13 AM CDT) ACTH 10.8 7.0 - 63.0 pg/mL [facility] Blood specimen (specimen) 02/11/2019 10:13 AM CDT 02/11/2019 10:32 AM CDT Narrative [facility] - 02/12/2019 9:56 AM CDT us Esau Miles MD LAB BLOOD ORDERABLES Final Resu lt [facility] [place] [address] documented in this encounter Visit Diagnoses Diagnosis Idiopathic intracranial hypertension- Primary Benign intracranial hypertension Idiopathic intracranial hypertension Benign intracranial hypertension Idiopathic intracranial hypertension Benign intracranial hypertension documented in this encounter Care Teams Thermospray Operator Relationship Specialty Start Date End Date Dorota Martinez MD [address] [place] [address] [address] [place] [address] PCP - General 02/11/19 12/10/20 documented as of this encounter
--- OUTSIDE RECORDS SUMMARY | 2024-11-17 14:29 | XMS_ITS | Encounter Summary ---
Author Organization [facility] Address [address] [place] [address] Phone Care Team Providers Care Used Building Materials Yard Worker Name Role Phone Unknown, Notinfile Primary Care Provider Unavail able Dorota Martinez MD Primary Care Provider [phone] Encounter Details Date Type Department Care Team (Late st Contact Info) Description 02/06/2019 Telephone [facility] Scheduling [address] [place] [address] Dorothy Reynoso BS Social History Tobacco Use Types Packs/Day [...] on file 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 Reg/intake updated. Records in chart. Pseudotumor? Next on tally sending for review. PT TO BRING CD Department of Neurological Surgery at [facility] Cranial Intake Sheet 02/06/19 Kylee Guo 1985 [id number] [facility] [facility] [id number] [phone] Notinfile Unknown REF DR MANUEL CARRERA Referred to: First Available: na Consult: Yes Second Opinion: No Diagnosis: PSEUDOTUMOR/EMPTY SELLA NA Requested time frame: NA Blurred Vision: Yes Loss of Sight: No Weakness on one side of body or a particular area: Yes right side Patient can open both eyes equally: No left eye Loss of bowel or bladder control: No Headaches, pain behind eyes Duration of symptoms: 1 month getting worse Prior brain surgery: No Other surgeon seen: No Physicians name: na Litigation: No MVA: No W/C: No Continuous Vulcanizing Machine Operator: na Insurance: [employer] BCBS Imaging Done: Yes 01/2019 MRI: Does the patient have any metal in their body? No Comments: NA Appointment scheduled: N/A Appointment Date & Time: PT TO BRING CD * Telephone Encounter - Dorothy Reynoso BS - 02/06/2019 9:53 AM CDT Pseudotumor. Rcvd spinal puncture, MRI. Need reg/intake and send to tally documented in this encounter Plan of Treatment Not on file documented as of this encounter Visit Diagnoses Not on filedocumented in this encounter Care Teams Used Building Materials Yard Worker Relationship Specialty Start Date End Date Unknown, Notinfile PCP - General 3/18/19 3/24/19 Dorota Martinez MD [facility] [address] [place] [address] PCP - General 02/11/19 12/10/20 documented as of this encounter
--- OUTSIDE RECORDS SUMMARY | 2024-11-17 14:29 | XMS_ITS | Encounter Summary ---
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 ??There will be no report generated by a [facility] Radiologist. Narrative [facility] - 02/15/2019 2:38 PM CDT EXAMINATION: ??Images For Reference Purposes Only us Esau Miles MD IMG CT PROCEDURES Final Result [facility] documented in this encounter Visit Diagnoses Not on filedocumented in this encounter Care Teams Assistant Hairstylist Relationship Specialty Start Date End Date Dorota Martinez MD [address] [place], [place] [id number] PCP - General 02/11/19 12/10/20 documented as of this encounter
--- OUTSIDE RECORDS SUMMARY | 2024-11-17 14:29 | XMS_ITS | Encounter Summary ---
Author Organization [facility] Healthcare Address [address] [place] [address] Care Team Providers Care Engineering Design Supervisor Name Role Phone Dorota Martinez MD Primary Care Provider [phone] Encounter Details Date Type Department Care Team (Late st Contact Info) Description 02/11/2019 10:25 AM CDT Lab [facility] ([facility]) [address] [place] [phone] [place] [address] [place] [address] Idiopathic intracranial hypertension Discharge Disposition: Discharge to [...] on file 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 Gender Identity Not on file Sexual Orientation Not on file documented as of this encounter Discharge Disposition Disposition Code Departure Means Destination Discharge to home or self care documented in this encounter Plan of Treatment Not on file documented as of this encounter Procedures Procedure Name Priority Date/Time Associated Diagnosis Comments PROLACTIN Routine 02/11/2019 10:19 AM CDT Idiopathic intracranial hypertension INSULIN-LIKE GROWTH FACTOR Routine 02/11/2019 10:19 AM CDT Idiopathic intracranial hypertension TSH Routine 02/11/2019 10:19 AM CDT Idiopathic intracranial hypertension T4, FREE Routine 02/11/2019 10:19 AM CDT Idiopathic intracranial hypertension HEMOGLOBIN A1C Routine 02/11/2019 10:19 AM CDT Idiopathic intracranial hypertension CORTISOL Routine 02/11/2019 10:19 AM CDT Idiopathic intracranial hypertension COMPREHENSIVE METABOLIC PANEL Routine 02/11/2019 10:19 AM CDT Idiopathic intracranial hypertension ACTH Routine 02/11/2019 10:13 AM CDT Idiopathic intracranial hypertension documented in this encounter Results * TSH (02/11/2019 10:19 AM CDT) Thyroid Stimulating Hormone 1.78 0.30 - 4.20 mcIUnit/mL [facility] Blood specimen (specimen) 02/11/2019 10:19 AM CDT 02/11/2019 10:43 AM CDT Cali [facility] - 02/11/2019 11:35 AM CDT us Esau Miles MD LAB BLOOD ORDERABLES Final Resu lt [facility] Department [place] [address] * (ABNORMAL) T4, free (02/11/2019 10:19 AM CDT) Free T4 0.88(L) 0.90 - 1.70 ng/dL [facility] Blood specimen (specimen) 02/11/2019 10:19 AM CDT 02/11/2019 10:43 AM CDT Cali [facility] - 02/11/2019 11:35 AM CDT us Esau Miles MD LAB BLOOD ORDERABLES Final Resu lt [facility] Department [place] [address] * Insulin-like growth factor (IGF-1) (02/11/2019 10:19 AM CDT) Pathologist [facility] Insulin-like growth factor 1 (IGF-1) 69 60 - 280 ng/mL [facility] Comment: Interpretive Data Magdi Stage ? Male ? Female ?I ?80-250 ? 80-320 ? II ? 100-450 ?120-450 ??III ? 250-500 ?250-550 ?? IV ? 225-600 ?225-600 ?V ? 225-500 ?180-500 Assay calibrated to WHO and instituted at [facility] 03/2018. References: 1. [employer] IGF-1 Package Insert 2017-08, V 1.0. 2. [facility] [employer] IGFMS entry ([email or web address].[email or web address]-catalog/Overview/28770) accessed 03-28-2018. 3. Clemente Awad, Osmin N, Jessica RT et al. J Clin Endocrinol Metab 2014;99:9010-8045. Current interpretive data was last revised on 2018. Testing performed by: [facility], [place]., [address] Blood specimen (specimen) 02/11/2019 10:19 AM CDT 02/11/2019 11:06 AM CDT Narrative [facility] - 02/11/2019 11:58 AM CDT Esau Miles MD LAB BLOOD ORDERABLES Final Resu lt Performing Organization Address City/[facility] Co de Phone Number [facility] [place] [employer] [place] [address] * (ABNORMAL) Hemoglobin A1c (02/11/2019 10:19 AM CDT) Hgb A1C 9.2(H) 4.0 - 5.6 % [facility] Estimated Average Glucose 217 mg/dL [facility] Comment: The ADA recommends reporting an estimated Average Glucose (eAG) with all Hemoglobin A1c results using the equation derived from a study of 507 normal and diabetic adults. ??Minority populations were underrepresented and children were not included. ?? (Diabetes Care 31:3152-0541, 2008). ??The eAG is not equivalent to a fasting glucose. Blood specimen (specimen) 02/11/2019 10:19 AM CDT 02/11/2019 10:43 AM CDT Narrative [facility] - 02/11/2019 11:06 AM CDT Esau Miles MD LAB BLOOD ORDERABLES Final Resu lt Performing Organization Address [facility] Co de Phone Number [facility] [place] [employer] [place] [address] * Prolactin (02/11/2019 10:19 AM CDT) Prolactin 6.6 5.2 - 26.5 ng/mL [facility] Blood specimen (specimen) 02/11/2019 10:19 AM CDT 02/11/2019 10:43 AM CDT Narrative [facility] - 02/11/2019 12:23 PM CDT Esau Miles MD LAB BLOOD ORDERABLES Final Resu lt Performing Organization Address City/[facility]/ZIP Co de Phone Number [facility] [place] [address] * (ABNORMAL) Comprehensive metabolic panel (02/11/2019 10:19 AM CDT) Sodium 136 135 - 145 mmol/L [facility] Potassium, pl 3.8 3.3 - 4.9 mmol/L [facility] Chloride 104 97 - 110 mmol/L [facility] CO2 23 22 - 32 mmol/L [facility] Anion gap 9 2 - 15 mmol/L [facility] BUN 15 8 - 25 mg/dL [facility] Creatinine 0.59(L) 0.60 - 1.10 mg/dL [facility] Glucose 267(H) 70 - 199 mg/dL [facility] Comment: Interpretive Data Fasting glucose >/= 126 [...] 2017. Calcium 9.3 8.5 - 10.3 mg/dL [facility] Bilirubin, total <0.2(L) 0.1 - 1.2 mg/dL [facility] Protein, pl 7.9 6.5 - 8.5 g/dL [facility] Albumin 4.3 3.5 - 5.0 g/dL [facility] Alk phos 85 40 - 130 Units/L [facility] ALT 28 7 - 45 Units/L [facility] AST 27 10 - 45 Units/L [facility] Blood specimen (specimen) 02/11/2019 10:19 AM CDT 02/11/2019 10:43 AM CDT Narrative [facility] - 02/11/2019 11:35 AM CDT us Esau Miles MD LAB BLOOD ORDERAB[place] [address] * Cortisol (02/11/2019 10:19 AM CDT) Cortisol 5.8 3.7 - 19.4 mcg/dL [facility] Comment: Interpretive Data Normal Range: ??3.7 - 19.4 mcg/dL; ??Evening: ??Half of morning value. ?? This analyte undergoes marked diurnal variation. ??Ranges indicated apply to morning specimens. ?? Current interpretive data was last revised 2014. Blood specimen (specimen) 02/11/2019 10:19 AM CDT 02/11/2019 10:43 AM CDT Narrative [facility] - 02/11/2019 12:30 PM CDT Esau Miles MD LAB BLOOD ORDERABLES Final Resu lt Performing Organization Address [facility] de Phone Number [facility] [place] [address] * ACTH (02/11/2019 10:13 AM CDT) Pathologist [facility] ACTH 10.8 7.0 - 63.0 pg/mL [facility] Blood specimen (specimen) 02/11/2019 10:13 AM CDT 02/11/2019 10:32 AM CDT Narrative [facility] - 02/12/2019 9:56 AM CDT Esau Miles MD LAB BLOOD ORDERABLES Final Resu lt Performing Organization Address [facility] [place] [address] documented in this encounter Visit Diagnoses Diagnosis Idiopathic intracranial hypertension Benign intracranial hypertension documented in this encounter Care Teams Engineering Design Supervisor Relationship Specialty Start Date End Date Dorota Martinez MD [address] [place] [address] [place] [address] PCP - General 02/11/19 12/10/20 documented as of this encounter
--- OUTSIDE RECORDS SUMMARY | 2024-11-17 14:29 | XMS_ITS | Encounter Summary ---
Author Organization [facility] Address [address] [place] [address] Phone Care Team Providers Care Public Relations Officer Name Role Phone Dorota Martinez MD Primary Care Provider Reason for Referral * (Routine) - Closed Specialty Diagnoses / Procedures Referred By Tiburcio t Referred To Contact Diagnoses Idiopathic intracranial hypertension Procedures OCT, Optic Nerve - OU - Both Eyes Diana Leon MD PhD Phone: tel: fax: [facility] (All Locations) Referral ID Status Reason Start Date Expiration Date Visits Re quested Visits Authorized [id number] Closed 02/15/2019 08/26/2020 1 1 * (Routine) - Closed Specialty Diagnoses / Procedures Referred By Contadonis t Referred To Contact Diagnoses Hypertensive retinopathy of both eyes Procedures OCT, Retina - OU - Both Eyes Diana Leon MD PhD Phone: tel: fax: [facility] (All Locations) Referral ID Status Reason Start Date Expiration Date Visits Re quested Visits Authorized [id number] Closed 02/15/2019 08/26/2020 1 1 * (Routine) - Closed Specialty Diagnoses / Procedures Referred By Contac t Referred To Contact Diagnoses Idiopathic intracranial hypertension Procedures Dow Visual Field - OU - Both Eyes Diana Leon MD PhD Phone: tel: fax: [facility] (All Locations) Referral ID Status Reason Start Date Expiration Date Visits Re quested Visits Authorized [id number] Closed 02/15/2019 08/26/2020 1 1 Reason for Visit * Reason Comments vision changes Encounter Details Date Type Department Care Team (Late st Contact Info) Description 02/15/2019 1:00 PM CDT Office Visit [facility] Ophthalmology [address] [place] [address] 1st [place] [phone] Diana Leon MD PhD [address] [facility] [address] [place] [address] Idiopathic intracranial hypertension (Primary Dx); Hypertensive retinopathy of both eyes Social History Tobacco Use Types Packs/Day Years [...] on file 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 documented in this encounter Progress Notes * Diana Leon MD PhD - 02/15/2019 1:00 PM CDT Assessment/Plan Diagnoses and all orders for this visit: Idiopathic intracranial hypertension (Primary) Assessment & Plan: New diagnosis in past [...] OCT nerve OU, HVF 24-2, repeat DFEx Orders: - Dow Visual Field - OU - Both Eyes; Future - OCT, Optic Nerve - OU - Both Eyes; Future - Dow Visual Field - OU - Both Eyes - OCT, Optic Nerve - OU - Both Eyes Hypertensive retinopathy of both eyes Assessment & Plan: Pt with vascular changes, CWS and small flame hemorrhages OU -- no macular edema on OCT or DFEx today -- discussed good control of DM2, HTN -- annual DFEx Orders: - OCT, Retina - OU - Both Eyes Cosigned by Sergio Barrera, OD at 02/18/2019 8:43 AM CDT Associated attestation - Sergio Barrera, OD - 02/18/2019 8:43 AM CDT Continue diamox 250mg bid po. Repeat testing in 1 month. Consider increasing dose if optic nerve elevation/edema persists or worsens. Call immediately if any worsening of symptoms. I was present with the resident during the history and exam. I discussed this patient with the resident and agree with the findings and plan as documented in the their note. I have made corrections and additions as appropriate. [place] Barrera, TRIXIE documented in this encounter Miscellaneous Notes * Assessment & Plan Note - Diana Leon MD PhD - 02/15/2019 5:31 PM CDT Associated Problem(s): Hypertensive retinopathy of both eyes Pt with vascular changes, CWS and small flame hemorrhages OU -- no macular edema on OCT or DFEx today -- discussed good control of DM2, HTN -- annual DFEx * Assessment & Plan Note - Diana Leon MD PhD - 02/15/2019 5:17 PM CDT Associated Problem(s): Idiopathic intracranial hypertension New diagnosis in past few months. Repeat [...] OCT nerve OU, HVF 24-2, repeat DFEx documented in this encounter Plan of Treatment Not on file documented as of this encounter Procedures Procedure Name Priority Date/Time Associated Diagnosis Comments OCT, OPTIC NERVE - OU - BOTH EYES Routine 02/15/2019 5:26 PM CDT Idiopathic intracranial hypertension OCT, RETINA - OU - BOTH EYES Routine 02/15/2019 5:25 PM CDT Hypertensive retinopathy of both eyes DOW VISUAL FIELD - OU - BOTH EYES Routine 02/15/2019 5:24 PM CDT Idiopathic intracranial hypertension documented in this encounter Results * OCT, Optic Nerve - OU - Both Eyes (02/15/2019 5:26 PM CDT) Anatomical Region Laterality Modality Head Optical Coherenc e Tomography Narrative 02/18/2019 8:40 AM CDT Right Eye Reliability was good. Temporal thickness was normal. Superior thickness was normal. Nasal thickness was normal. Inferior thickness was normal. Left Eye Reliability was good. Temporal thickness was normal. Superior thickness was normal. Nasal thickness was normal. Inferior thickness was normal. us Diana Leon MD PhD OPHTH TOMOGRAPHY Maddie l Result * OCT, Retina - OU - Both Eyes (02/15/2019 5:25 PM CDT) Pathologist [facility] Central Macular Thickness OS 226 mircometers Central Macular Thickness OD 237 micrometers Anatomical Region Laterality Modality Head Optical Coherenc e Tomography Narrative 02/18/2019 8:41 AM CDT Right Eye Quality was good. Progression has no prior data. Macular thickness was 237 micrometers. Left Eye Quality was good. Progression has no prior data. Macular thickness was 226 mircometers. Notes No intraretinal or subretinal fluid. 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 Diana Leon MD PhD OPHTH TOMOGRAPHY Maddie l Result * Dow Visual Field - OU - Both Eyes (02/15/2019 5:24 PM CDT) Pathologist [facility] Mean Deviation OS -6.99 Mean Deviation OD -10.69 Pattern Deviation OS 3.95 Pattern Deviation OD 7.17 Anatomical Region Laterality Modality Head Visual Field Narrative 02/18/2019 8:41 AM CDT Right Eye Fixation was good. Cooperation was good. Reliability was good. Progression has no prior data. Mean Deviation was -10.69. Pattern Deviation was 7.17. Left Eye Fixation was good. Cooperation was good. Reliability was good. Progression has no prior data. Mean Deviation was -6.99. Pattern Deviation was 3.95. Notes Right eye- Nonspecific global depression worse superiorly Left eye- Nonspecific global depression us Diana Leon MD PhD OPHTH VISUAL FIELD Fi nal Result documented in this encounter Visit Diagnoses Diagnosis Idiopathic intracranial hypertension- Primary Benign intracranial hypertension Hypertensive retinopathy of both eyes Hypertensive retinopathy documented in this encounter Eye Exam Visual Acuity (Snellen - Linear) Right eye Left eye Dist cc 20/25 -2 20/50 -2 Dist ph cc 20/40 -2 Tonometry (Applanation c lids held, 12:29 PM) Right eye Left eye Pressure 23 23 Pupils Dark Light Shape React APD Right eye 5 3 Round Brisk None Left eye 5 3 Round Brisk None Visual Guerra (Counting fingers) Right eye Left eye Full Full Extraocular Movement Right eye Left eye Full Full Neuro/Psych Oriented x3: Yes Mood/Affect: Normal Dilation Both eyes: 1.0% Mydriacyl, 2 .5% Phenylephrine @ 1:16 PM External Exam Right eye Left eye External Normal Normal Slit Lamp Exam Right eye Left eye Lids/Lashes Normal Normal Conjunctiva/Sclera White and quiet White and pj et Cornea Clear Clear Anterior Chamber Deep and quiet Deep and quiet Iris Round, dilated Round, dilated Lens tr congenital cataract tr congen ital cataract Vitreous Normal Normal Fundus Exam Right eye Left eye Disc no edema, no highwater donny or g liosis tr elevation superonasally, no highwater donny or gliosis C/D Ratio 0.3 0.2 Macula Multiple CWS superio r arcade with surrounding DBH, inferior arcade with DBH pigment mottling, CWS along superior arcade Vessels copper wiring copper wiring Periphery no RT/RD/necrosis no RT/RD/necro sis Wearing Rx Sphere Cylinder [place] Right eye -2.25 +0.50 095 Left eye -3.00 +1.00 080 Age: 1yr Type: SVL Manifest Refraction (Auto) Sphere Cylinder [place] Right eye -3.25 +1.25 097 Left eye -3.25 +1.00 072 Care Teams Public Relations Officer Relationship Specialty Start Date End Date Dorota Martinez MD [address] [facility] [address] [place] [address] PCP - General 02/11/19 12/10/20 documented as of this encounter
--- OUTSIDE RECORDS SUMMARY | 2024-11-17 14:29 | XMS_ITS | Encounter Summary ---
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
--- OUTSIDE RECORDS SUMMARY | 2024-11-17 14:29 | XMS_ITS | Encounter Summary ---
Author Organization [facility] Address [address] [place] [address] Phone Care Team Providers Care Tax Associate Attorney Name Role Phone Unknown, Notinfile Primary Care Provider Unavail able Encounter Details Date Type Department Care Team (Late st Contact Info) Description 02/08/2019 Telephone [facility] Neurosurgery [address] [facility] Advanced Medicine 6th [place] [address] [place] [address] Jazmin Webber RMA Social History Tobacco Use Types Packs/Day Years [...] on file 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 Patient wasinstructed to stop ASA products today and bring any outside imaging with her on Monday. Patient instructed if she feels worse to go back to the ED dept. documented in this encounter Plan of Treatment Not on file documented as of this encounter Visit Diagnoses Not on filedocumented in this encounter Care Teams Tax Associate Attorney Relationship Specialty Start Date End Date Unknown, Notinfile PCP - General 02/04/19 02/10/19 documented as of this encounter
--- OUTSIDE RECORDS SUMMARY | 2024-11-17 14:29 | XMS_ITS | Encounter Summary ---
Author Organization [facility] Healthcare Address [address] [place] [address] Care Team Providers Care Hospital Tray Service Worker Name Role Phone Dorota Martinez MD Primary Care Provider [phone] Reason for Referral * Diagnostic Imaging (Routine) - Closed Specialty Diagnoses / Procedures Referred By Contac t Referred To Contact Radiology Diagnoses Benign intracranial hypertension Procedures IR Lumbar Puncture Diagnostic Esau Miles MD Phone: tel: fax: [address] [phone] Referral ID Status Reason Start Date Expiration Date Visits Re quested Visits Authorized [id number] Closed 02/11/2019 08/22/2020 1 1 Reason for Visit * Diagnostic Imaging (Routine) - Closed Specialty Diagnoses / Procedures Referred By Tiburcio caicedo Referred To Contact Radiology Diagnoses Benign intracranial hypertension Procedures IR Lumbar Puncture Diagnostic Esau Miles MD Phone: tel: fax: [address] [phone] Referral ID Status Reason Start Date Expiration Date Visits Re quested Visits Authorized [id number] Closed 02/11/2019 08/22/2020 1 1 Encounter Details Date Type Department Care Team (Latest Contact Info) Description 02/11/2019 12:10 PM CDT - 02/11/2019 5:00 PM CDT Hospital Encounter [facility] Procedure Holding [address] [place] [phone] Esau Miles MD [address] [address] Benign intracranial hypertension Discharge Disposition: Discharge to home [...] on file 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 Gender Identity Not on file Sexual Orientation Not on file documented as of this encounter Last Filed Vital Signs Vital Sign Reading Time Taken Comments Blood Pressure 142/72 02/11/2019 3:42 PM CDT Pulse 92 02/11/2019 3:42 PM CDT Temperature 36.6 ??C (97.8 ??F) 02/11/2019 1:42 PM CD T Respiratory Rate 16 02/11/2019 3:42 PM CDT Oxygen Saturation 100% 02/11/2019 3:42 PM CDT Inhaled Oxygen Concentration - - Weight 101.6 kg (224 lb) 02/11/2019 1:42 PM CDT Height 162.6 cm (5' 4 ) 02/11/2019 1:42 PM CDT Body Mass Index 38.45 02/11/2019 1:42 PM CDT documented in this encounter Discharge Instructions * Discharge Instructions* Zeferino Nieves MD - 02/11/2019 3:31 PM CDT Neuroradiology Spine Procedure Outpatient Discharge Instructions Procedure: Lumbar puncture Discharge Instructions: ?? Do not drive, operate machinery, or drink alcohol until tomorrow ?? Do not smoke ?? Stay with a responsible adult tonight ?? Do not make any legal or important decisions for 24 hours ?? Do not take any additional pain medications, sleeping pills or sedatives unless ok'd by your doctor Special Instructions: Activity: No lifting or exercise for at least 24 hours Diet: Drink plenty of fluids and resume previous diet Medications: Continue present medications Procedure: Change dressing as needed Site care: Bathe or shower after 24 hours Follow up care: ?? No appointment necessary-return only if problems develop ?? Please call one of the neuroradiologists for any of the following: ?? Any questions or problems ?? Hematoma (extreme bruising at the site) ?? Drainage from site ?? Fever ?? Bleeding ?? (M-F 7:30am-4:00pm, [phone]. After hours call [phone], ask for the neuroradiologist chief controller tower) Neuroradiology fellow: Dr. Nieves documented in this encounter Medications at Time [...] documented in this encounter Progress Notes * Katelynn Beatty RN - 02/11/2019 5:31 PM CDT Contact Neuro-Radiologist in diagnostic radiology. Physician comes to waiting area; speaks with patient. * Katelynn Beatty RN - 02/11/2019 5:[address] Nieves does not return call. * Katelynn Beatty RN - 02/11/2019 5:20 PM CDT Upon taking patient out to IR waiting room where her family awaits, she states, I am concerned about this pinching feeling. The doctor in the room during the procedure said specifically that he wanted to know if that feeling did not go away. Contact MARIANELA lan RN; speak to Blossom brennan. She suggests paging Dr. Nieves because he performed the procedure. Page Dr. Nieves. * Katelynn Beatty RN - 02/11/2019 4:45 PM CDT Patient is awake and alert. Offer refreshment; patient requests ice water. Patient sits on side of bed for several minutes before requesting to go to restroom. Take patient to restroom via wheelchair. Patient is independent in restroom. Review DC instructions with patient; she verbalizes an understanding. * Katelynn Beatty RN - 02/11/2019 4:05 PM CDT Patient is resting on right side. When asked about pain, patient states, I still feel that pressure feeling back there, but, no pain. documented in this encounter Miscellaneous Notes * Post-Procedure Note - Zeferino Nieves MD - 02/11/2019 3:30 PM CDT Neuroradiology Brief Post Procedure Note Attending: Dr. Pickering Information Assurance Specialist: Dr. Nieves; Dr. Regan Sedation/Anesthesia: Local Pre-procedure diagnosis: Headache Post-procedure diagnosis: Same Procedure Performed: Image-guided lumbar puncture (IR LUMBAR PUNCTURE) Procedure Findings: Successful diagnostic LP at L4-5; opening 26, closing 17 Complications: None Estimated Blood Loss: None Specimens: 13 mL CSF placed into 4 tubes Condition: Stable Full report to follow. documented in this encounter Plan of Treatment Not on file documented as of this encounter Procedures Procedure Name Priority Date/Time Associated Diagnosis Comments IR LUMBAR PUNCTURE, DIAGNOSTIC WO FLUORO OR CT GUIDANCE Schedule ESTRELLA, Read ESTRELLA (Appt Today, Awaiting Results) 02/11/2019 3:31 PM CDT Benign intracranial hypertension BACTERIAL CULTURE AND GRAM STAIN, CSF Routine 02/11/2019 3:25 PM CDT CSF CELL COUNT WITH DIFFERENTIAL Routine 02/11/2019 3:25 PM CDT CSF PROTEIN Routine 02/11/2019 3:25 PM CDT GLUCOSE, CSF Routine 02/11/2019 3:25 PM CDT CYTOLOGY Routine 02/11/2019 2:43 PM CDT Benign intracranial hypertension documented in this encounter Results * IR Lumbar Puncture Diagnostic (02/11/2019 3:31 PM CDT) Anatomical Region Laterality Modality Spine N/A Radio Fluoroscop y 02/11/2019 3:33 PM CDT Impressions 02/11/2019 4:02 PM CDT Successful lumbar puncture under fluoroscopic guidance. Dictated by: Zeferino Nieves M.D. The radiology attending physician has personally reviewed this study, and had reviewed and/or edited this written report and agrees with it. Electronically signed by: Charlie Pickering M.D, PHD Narrative 02/11/2019 4:02 PM CDT EXAMINATION: Diagnostic lumbar puncture (LP) under fluoroscopic guidance HISTORY: Benign intracranial hypertension TECHNIQUE: The risks and benefits of the lumbar puncture including, but not limited to infection, bleeding, spinal headache, cerebrospinal fluid (CSF) leak requiring blood patch procedure, and irritation or damage to nerves causing pain or permanent injury were discussed with the patient. The patient was given the opportunity to ask questions. The patient acknowledged understanding, gave verbal and written consent, and wished to proceed. A time-out was performed prior to the procedure. Attending physician: Dr. Pickering was present for the entire procedure. The L4-5 level was localized with fluoroscopy. The skin overlying this level was then sterilely prepped, draped, and infiltrated with 1% lidocaine for local anesthesia. Under intermittent fluoroscopic guidance, a 22 gauge 5 inch Quincke spinal needle was inserted into the thecal sac at this level. Clear CSF was identified. A total of 13 ml of CSF was removed and placed into 4 specimen tubes. The patient tolerated the procedure well. The patient was then transferred to the nursing area for further observation and 1 hour of bedrest. OPENING PRESSURE: 26 cm of H2O CLOSING PRESSURE: 17 cm of H2O Procedure Note Charlie Pickering MD PhD - 02/11/2019 EXAMINATION: Diagnostic lumbar puncture (LP) under fluoroscopic guidance HISTORY: Benign intracranial hypertension TECHNIQUE: The risks and benefits of the lumbar puncture including, but not limited to infection, bleeding, spinal headache, cerebrospinal fluid (CSF) leak requiring blood patch procedure, and irritation or damage to nerves causing pain or permanent injury were discussed with the patient. The patient was given the opportunity to ask questions. The patient acknowledged understanding, gave verbal and written consent, and wished to proceed. A time-out was performed prior to the procedure. Attending physician: Dr. Pickering was present for the entire procedure. The L4-5 level was localized with fluoroscopy. The skin overlying this level was then sterilely prepped, draped, and infiltrated with 1% lidocaine for local anesthesia. Under intermittent fluoroscopic guidance, a 22 gauge 5 inch Quincke spinal needle was inserted into the thecal sac at this level. Clear CSF was identified. A total of 13 ml of CSF was removed and placed into 4 specimen tubes. The patient tolerated the procedure well. The patient was then transferred to the nursing area for further observation and 1 hour of bedrest. OPENING PRESSURE: 26 cm of H2O CLOSING PRESSURE: 17 cm of H2O IMPRESSION: Successful lumbar puncture under fluoroscopic guidance. Dictated by: Zeferino Nieves M.D. The radiology attending physician has personally reviewed this study, and had reviewed and/or edited this written report and agrees with it. Electronically signed by: Charlie Pickering M.D, PHD Esau Miles MD IMG IR PROCEDURES Final Result * Glucose, CSF (02/11/2019 3:25 PM CDT) [facility] Glucose, CSF 171 mg/dL [facility] Comment: Cells present; results may be falsely elevated. Interpretive Data Reference Interval Information: CSF Glucose should be 60-66% of the most current plasma glucose concentration (milligrams/deciliter) CLIN. CHEM. 41/3, 343-360 (1994), Clinical Utility of Biochemical Analysis of Cerebrospinal Fluid, Flo Cota and Arnulfo Crowley. Current interpretive data was last revised on 2013. CSF 02/11/2019 3:25 PM CDT 02/11/2019 4:35 PM CDT Narrative [facility] - 02/11/2019 5:09 PM CDT Esau Miles MD LAB BODY FLUIDS AND STOOLS MARCEL TEIXEIRA Final Result [facility] [place] [address] * Cell count and differential, CSF (02/11/2019 3:25 PM CDT) [facility] Tube Number, CSF Tube 2 [facility] Color, CSF Colorless Colorless [facility] Clarity, CSF Clear Clear [facility] Xanthochromia , CSF Absent Absent [facility] RBC, CSF 0 0 - 0 /cumm [facility] Nucleated cells, CSF 0 <=10 /cumm [facility] Total cells diffed Diff Not Done cells [facility] CSF 02/11/2019 3:25 PM CDT 02/11/2019 4:33 PM CDT Narrative [facility] - 02/11/2019 5:57 PM CDT Esau Miles MD LAB BODY FLUIDS AND STOOLS MARCEL TEIXEIRA Final Result Performing Organization Address [facility] Co de Phone Number [facility] Department [place] [address] * Protein, total, CSF (02/11/2019 3:25 PM CDT) [facility] Protein, CSF 37 5 - 45 mg/dL [facility] Comment:Cells present; resul ts may be falsely elevated. CSF 02/11/2019 3:25 PM CDT 02/11/2019 4:35 PM CDT Narrative [facility] - 02/11/2019 5:09 PM CDT Esau Miles MD LAB BODY FLUIDS AND STOOLS MARCEL TEIXEIRA Final Result Performing Organization Address City/[facility] Co de Phone Number [facility] Department [place] [address] * Bacterial culture and gram stain, CSF CSF (02/11/2019 3:25 PM CDT) [facility] Direct Specimen Exam Stain: Cytospin gram stain shows: No polymorphonuclear leukocytes seen. Other cellular material present. No organisms seen. [facility] Report Final Report: No growth [facility] CSF 02/11/2019 3:25 PM CDT 02/11/2019 4:57 PM CDT Narrative [facility] - 02/16/2019 11:47 AM CDT Fluid specimen received. Testing performed by [facility] ([phone]). us Esau Miles MD [facility] Final Result [facility] Department [place] [address] * Cytology (02/11/2019 2:43 PM CDT) Fluid (Cerebrospinal Fluid (Cytology)) 02/11/2019 2:43 PM CDT Narrative PATHOLOGY [facility] - 02/13/2019 7:05 PM CDT EPIC results best viewed via link to PDF [facility] [place] [address] CYTOPATHOLOGY REPORT FINAL Patient Name: ?? EMMA FIGUEROA Gender: ??F : ??1985 (Age: 33) Address: ??[address] [place] [address] Hospital #: ??[id number] Taken:02/11/2019 Received:02/11/2019 Reported: 02/13/2019 Patient Type: [facility] SDS ?? Service: Radiology Location: [facility] Physician(s): ??Zeferino Nieves M.D. Randy Green MD FINAL DIAGNOSIS A. ??Cerebrospinal fluid: ? - Negative for malignancy ?? jxp/02/12/2019 21:59 By this signature, I attest that the above diagnosis is based upon my personal examination of the slides(and/or other material indicated in the diagnosis). Lauren Haskins M.D. Report Electronically Reviewed and Signed Out By ??Lauren Haskins M.D. 02/13/2019 19:05:48 Nickolas Sandhu, CT(ASCP), CFIAC Gross Description A. ??Cerebrospinal fluid: ??10 ml cloudy fluid - 2 Diff-Quik stained cytospins. (vc) ?? Clinical Diagnosis and History The patient is a 33 year old woman with benign intracranial hypertension. By this signature, I attest that the above diagnosis is based upon my personal examination of the slides(and/or other material). Rex Quijano M.D. REPORT IMAGES AND SCANNED DOCUMENTS, IF INCLUDED, ONLY VIEWABLE IN PDF VERSION OF REPORT The performance characteristics of some immunohistochemical stains, in-situ hybridization and fluorescence in-situ hybridization tests and immunophenotyping by flow cytometry cited in this report (if any) were determined by the Surgical Pathology Department at [facility] as part of an ongoing quality assurance practice manager program and in compliance with federally mandated [...] performance characteristics determined by the Surgical Pathology Department of [facility]. ??It has not been cleared or approved by the [place]. S. Food and Drug Administration. us Esau Miles MD LAB CYTOLOGY ORDERABLES Final R esult PATHOLOGY [facility] 3rd Floor [place], [place] [phone] documented in this encounter Visit Diagnoses Diagnosis Benign intracranial hypertension documented in this encounter Administered Medications Inactive Administered Medications - up to 3 most recent administrations Medication Order MAR Action Action Date Dose Rate Site lidocaine PF (XYLOCAINE) 10 mg/mL (1 %) preservative free injection Code/trauma/sedation medication, Starting on 02/11/19 at 1513, Intra-Procedure (IR), Indications: Administration of Local AnesthesiaIndications:Administration of Local Anesthesia Given 02/11/2019 3:13 PM CDT 5 mL Back documented in this encounter Active and Recently Administered Medications Times are shown in CDT. PRN Medication Order 02/09/2019 02/10/2019 02/11/2019 lidocaine PF (XYLOCAINE) 10 mg/mL (1 %) preservative free injection (COMPLETED) Code/trauma/sedation medication, Starting on 02/11/19 at 1513, Intra-Procedure (IR), Indications: Administration of Local Anesthesia 1513 (Given - Provid er: Gianni Regan MD) documented in this encounter Orders Medications Ordered That Brendan ht Not Have Been Administered Count Last Ordered Date First Ordered Date lidocaine PF (XYLOCAINE) 10 mg/mL (1 %) preservative free injection 1 02/11/2019 documented in this encounter Care Teams Hospital Tray Service Worker Relationship Specialty Start Date End Date Dorota Martinez MD [address] [place] [id number] PCP - General 02/11/19 12/10/20 documented as of this encounter
--- OUTSIDE RECORDS SUMMARY | 2024-11-17 14:29 | XMS_ITS | Encounter Summary ---
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 Please CALL patient and CANCEL the [facility] appointment on 02/18/2019. Patient has local neurologist, but if patient is interested in following up with us, please RESCHEDULE her in the [facility] general neurology clinic. Thanks. documented in this encounter Plan of Treatment Not on file documented as of this encounter Visit Diagnoses Not on filedocumented in this encounter Care Teams Weight Reducing Technician Relationship Specialty Start Date End Date Dorota Martinez MD [address] [place] [address] PCP - General 02/11/19 12/10/20 documented as of this encounter
--- OUTSIDE RECORDS SUMMARY | 2024-11-17 14:29 | XMS_ITS | Encounter Summary ---
Author Organization [facility] Healthcare Address [address] [place] [address] Care Team Providers Care Willower Name Role Phone Unknown, Notinfile Primary Care Provider Unavail able Reason for Visit * Reason Comments Numbness Encounter Details Date Type Department Care Team (Late st Contact Info) Description 02/05/2019 3:03 AM CDT - 02/05/2019 8:43 AM CDT Emergency [facility] Emergency Department [address] [place] [address] Christina Cristina MD [address] [place] [address] Benny Rowe MD PhD [address] [place] [address] Other migraine without status migrainosus, not intractable (Primary Dx) Discharge Disposition: Discharge to home or self [...] on file 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 Gender Identity Not on file Sexual Orientation Not on file documented as of this encounter Last Filed Vital Signs Vital Sign Reading Time Taken Comments Blood Pressure 142/83 02/05/2019 7:00 AM CDT Pulse 81 02/05/2019 6:20 AM CDT Temperature 36.7 ??C (98.1 ??F) 02/04/2019 6:40 PM CD T Respiratory Rate 17 02/04/2019 6:40 PM CDT Oxygen Saturation 98% 02/05/2019 6:20 AM CDT Inhaled Oxygen Concentration - - Weight 86.2 kg (190 lb) 02/04/2019 6:40 PM CDT Height 162.6 cm (5' 4 ) 02/04/2019 6:40 PM CDT Body Mass Index 32.61 02/04/2019 6:40 PM CDT documented in this encounter Discharge Instructions * Discharge Instructions* Benny Rowe MD PhD - 02/05/2019 8:00 AM CDT You were seen in the emergency department for migraine. Your symptoms improved with the medication called Haldol. We ask the neurologist come see you while you were in our E.D. They agree that you have had a complex migraine. They want you to continue your prior medications and add olanzapine, as prescribed, beginning this evening, at a dose of 5 mg nightly. I have given you a referral to our neurology clinic, please call to schedule an appointment as soonas possible for further evaluation of your symptoms. * Attachments The following attachments cannot be sent through Care Everywhere. * Migraine Headache (General Information) (Polish) * Migraine Headache (Documentation Consultant) (Polish) documented in this encounter Medications at Time of Discharge acetaZOLAMIDE (DIAMOX) 250 mg tablet Take 250 mg by mouth 2 (two) times a day 1 amLODIPine (NORVASC) 5 mg tablet Take 10 mg by mouth daily 1 atorvastatin (LIPITOR) 10 mg tablet 01/22/2019 1 fluticasone (FLONASE) 50 mcg/actuation nasal spray [...] daily 1 documented as of this encounter Ordered Prescriptions Prescription Sig Dispense Quantity Refills Last Filled Start Date End Date OLANZapine (ZyPREXA) 5 mg tabletIndications: complex migraine head ache Take 1 tablet (5 mg total) by mouth nightly 5 tablet 02/05/2019 1 documented in this encounter Discharge Disposition Disposition Code Departure Means Destination Discharge to home or self care documented in this encounter Consult Notes * Washington Wyatt MD PhD - 02/05/2019 6:43 AM CDTAssociated Order(s): IP CONSULT TO NEUROLOGY Neurology Consult Requesting Provider: Sameer Bautista MD Reason for Consult: complex migraine with blurry vision, possible idopathic intracranial hypertension Subjective SUBJECTIVE Patient is a 33 y.o. female with chief complaint of headache. HPI: 33yo HTN, T2DM, PKD, migraine not on meds, possible IIH diagnosis at OSH, p/w worsening headache. She has had migraines for many years that is pressure like, frontal, throbbing, associated with photophobia, phonophobia, vertigo/dizziness, and she has been prescribed migraine medications that she did not remember what they were. She had worsening of her migraine with blurry vision, visual auras of white spots and traces when objects are moving . She also endorses nonpulsating tinnitus. Other than that she denies other new symptoms, her headache is not worse when supine. She reports being evaluated at [facility] and an LP showed OP of 40, and she was diagnosed with IIH and prescribed Diamox without significant improvements but she complains of tingling in her hands/feet and lips with a metalic taste. She also Past Medical History: Diagnosis Date ??? Diabetes mellitus (CMS/HCC) ??? DVT (deep venous thrombosis) (CMS/HCC) ??? Idiopathic intracranial hypertension ??? Polycystic ovarian disease ??? Renal disorder Past Surgical History: Procedure Laterality Date ??? SECTION ??? CHOLECYSTECTOMY ??? TUBAL LIGATION HOME MEDICATIONS : acetaZOLAMIDE (DIAMOX) 250 mg tablet amLODIPine (NORVASC) 5 mg tablet furosemide (LASIX) 20 mg tablet glyBURIDE (DIABETA) 2.5 mg tablet HYDROcodone-acetaminophen (NORCO) 5-325 mg per tablet insulin glargine (LANTUS,BASAGLAR) 100 unit/mL (3 mL) insulin pen metoprolol (LOPRESSOR) 50 mg tablet propranolol (INDERAL) 20 mg tablet No current facility-administered medications for this encounter. Current Outpatient Medications Medication Sig Dispense Refill ??? acetaZOLAMIDE (DIAMOX) 250 mg tablet Take 250 mg by mouth 2 (two) times a day ??? amLODIPine (NORVASC) 5 mg tablet Take 10 mg by mouth daily ??? furosemide (LASIX) 20 mg tablet Take 20 mg by mouth daily as needed ??? glyBURIDE (DIABETA) 2.5 mg tablet Take 2.5 mg by mouth daily with breakfast ??? HYDROcodone-acetaminophen (NORCO) 5-325 mg per tablet Take 1 tablet by mouth every 6 (six) hours as needed ??? insulin glargine (LANTUS,BASAGLAR) 100 unit/mL (3 mL) insulin pen 20 Units daily ??? metoprolol (LOPRESSOR) 50 mg tablet Take 50 mg by mouth 2 (two) times a day ??? propranolol (INDERAL) 20 mg tablet Take 20 mg by mouth daily Allergies Allergen Reactions ??? Compazine [Prochlorperazine] Anxiety ??? Phenergan [Promethazine] Anxiety ??? Reglan [Metoclopramide] Anxiety ??? Zoalfredo Odt [Ondansetron] Anxiety Social History Socioeconomic History ??? Marital status: Spouse name: None ??? Number of children: None ??? Years of education: None ??? Highest education level: None Occupational History ??? None Social Needs ??? Financial resource strain: None ??? Food insecurity: Worry: None Inability: None ??? Transportation needs: Medical: None Non-medical: None Tobacco Use ??? Smoking status: Current Some Day Smoker ??? Smokeless tobacco: Never Used Substance and Sexual Activity ??? Alcohol use: Never Frequency: Never ??? Drug use: None ??? Sexual activity: None Lifestyle ??? Physical activity: Days per week: None Minutes per session: None ??? Stress: None Relationships ??? Social connections: Talks on phone: None Gets together: None Attends jewish service: None Active member of club or organization: None Attends meetings of clubs or organizations: None Relationship status: None ??? Intimate partner violence: Fear of current or ex partner: None Emotionally abused: None Physically abused: None Forced sexual activity: None Other Topics Concern ??? None Social History Narrative ??? None History reviewed. No pertinent family history. Review of Systems: A complete review of systems was performed including constitutional symptoms, cardiovascular, respiratory, gastrointestinal, genitourinary, musculoskeletal, neurological, psychiatric, endocrine, immunologic, integumentary, hematological, eyes, and ears, nose, mouth, and throat.?? All systems were negative except as per HPI. Objective OBJECTIVE Vitals: 24 hr Min/Max: Temp Min: 36.7 ??C (98.1 ??F) Max: 36.7 ??C (98.1 ??F) Pulse Min: 98 Max: 98 BP Min: 139/95 Max: 139/95 Resp Min: 17 Max: 17 SpO2 Min: 94 % Max: 94 % Most Recent: Vitals: 02/04/19 1840 BP: 139/95 Pulse: 98 Resp: 17 Temp: 36.7 ??C (98.1 ??F) SpO2: 94% Height: 162.6 cm (5' 4 ) Weight: 86.2 kg (190 lb) BMI (Calculated): 32.6 No intake/output data recorded. I/O this shift: In: - Out: 400 [Urine:400] Physical Exam: Constitutional: mildly uncomfortable especially with lights EYES: No scleral icterus, conjunctiva normal ENT: Mucus membranes moist, no nuchal rigidity RESP: Breathing comfortably on room air CV: Warm and well-perfused extremities, 1+ pitting edema in BLE GI: Soft, non-tender to palpation MSK: No cyanosis or edema of the extremities, no joint deformities SKIN: No visible skin lesions or rashes on exposed skin PSYCH: Appropriate affect Neurologic Exam: Mental Status/Psych: Alert and oriented to self, hospital, date; Intact naming and repetition, fluent speech; normal language comprehension; memory intact to the details of the history. Cranial Nerves: 20/70 OU without correction, patient did not have her glasses. Fundoscopic exam unable to complete due to patient discomfort. EOMI without nystagmus, VFFTC, PERRL, facial strength andsensation intact and symmetric, tongue and palate midline, traps full. No dysarthria. Motor Exam: Normal bulk and tone, no pronator drift, no tremor, no extraneous movements, normal andsymmetric finger/foot taps, full strength in proximal/distal upper and lower extremities Reflexes: 2+ BUE, 1+ BLE and symmetric, toes down-going bilaterally Sensation: intact to light touch Coordination: intact FNF Gait: antalgic gait Lab/Radiology/Diagnostic Review: CBC Lab Results Component Value Date WBC 6.8 02/05/2019 HGB 12.1 02/05/2019 HCT 37.1 02/05/2019 MCV 82.1 02/05/2019 LABPLAT 230 02/05/2019 CMP Lab Results Component Value Date GLUCOSE 186 02/05/2019 CALCIUM 10.0 02/05/2019 SODIUM 138 02/05/2019 POTASSIUM 3.4 02/05/2019 CO2 21 (L) 02/05/2019 CHLORIDE 105 02/05/2019 BUNSER 21 02/05/2019 CREATININE 0.69 02/05/2019 No results found for: ALT, No results found for: AST, No results found for: ALKPHOS Additional (if available): No results found for: HGBA1C, No results found for: LDLCALC, No results found for: TSH Imaging Results for orders placed or performed during the hospital encounter of 02/05/19 CT Head WO Contrast Narrative EXAMINATION: CT head without contrast HISTORY: Headache, vision changes. TECHNIQUE: Noncontrast CT of the brain was performed with images acquired from skull base to vertex. COMPARISON: None available. FINDINGS: Findings of hyperostosis frontalis interna are present. There is no acute intracranial hemorrhage. Ventricles are of normal size and morphology. No mass effect or midline shift is present. The barrera-white matter differentiation is normal. The visualized portions of the orbits are normal. The visualized portions of the mastoids are normal. The visualized portions of the paranasal sinuses are normal. No fractures are identified. Impression No acute intracranial abnormality. Dictated by: Juan Pablo Ceballos M.D. Assessment /Plan ASSESSMENT AND PLAN 33 yo woman hx of HTN, T2DM, migraine not on meds, possible IIH diagnosis at OSH, p/w worsening headache. Characteristics of her headache are migrainous, and she did not get relief with LP or diamox but endorses significant improvement with haldol. Recommendations: - OK to discharge from neurology perspective - please discharge with steroid taper starting 70mg, tapering 10mg every 3 days until stop. - defer migraine and/or IIH mgmt to her PCP and outpatient neurologist - appreciate excellent medical care by the primary team We will formally staff this patient with the neurology consult attending. All recommendations are currently preliminary. Neurology will continue to follow. 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 Neurology resident, PGY-2 Cosigned by Shaun Owen MD at 02/05/2019 10:19 AM CDT Associated attestation - Shaun Owen MD PhD - 02/05/2019 10:19 AM CDT I have seen and examined the patient on 02/05/19. I agree with the findings and plan of care as documented in the resident's/fellow's note. No papilledema on exam, intact visual samayoa. Safe to go home with outpatient follow-up with primary neurologist. Given her diabetes, I recommend 5 days of olanzapine 5 mg at HS, rather than a steroid taper. documented in this encounter ED Notes * Benny Rowe MD PhD - 02/05/2019 5:04 AM CDT HPI Chief Complaint Patient presents with ??? Numbness HPI 33 y/o F with hx of migraines, DM, polycystic kidney disease here with several weeks of worsening headache, blurry vision, bilateral UE tingling. She has been seen outside hospital multiple times forthese symptoms and was diagnosed with idiopathic intracranial hypertension via MRI and lumbar puncture, opening pressure reportedly roughly 40. Her neurologist said that if her symptoms continue to progress she should go to the emergency department for symptom control and further evaluation. He hasalso been told that she would benefit from a AUTOMATIC LATHE TENDER shunt and was referred to Neurosurgery Clinic here but has not reached out to schedule the appointment yet. She otherwise has not had fevers chills or n wally stiffness, no URI symptoms, no chest pain cough or shortness of breath. She is tolerating p.o. Without nausea vomiting or abdominal pain. She is voiding and stooling normally. Patient does endorse bilateral lower extremity swelling progressive over the last week or so despite taking her prescribed Lasix and Diamox. Patient History Past Medical History: Diagnosis Date ??? Diabetes mellitus (CMS/HCC) ??? DVT (deep venous thrombosis) (CMS/HCC) ??? Idiopathic intracranial hypertension ??? Polycystic ovarian disease ??? Renal disorder Past Surgical History: Procedure Laterality Date ??? SECTION ??? CHOLECYSTECTOMY ??? TUBAL LIGATION FH: HTN Social History Tobacco Use ??? Smoking status: Current Some Day Smoker ??? Smokeless tobacco: Never Used Substance Use Topics ??? Alcohol use: Never Frequency: Never ??? Drug use: Not on file Review of Systems Review of Systems All other systems reviewed and are negative. Physical Exam ED Triage Vitals [02/04/19 1840] Temp Pulse Resp BP SpO2 36.7 ??C (98.1 ??F) 98 17 139/95 94 % Temp src Heart Rate Source Patient Position BP Location FiO2 (%) -- -- -- -- -- Physical Exam General: Moderate distress, sitting with the lights off 2/2 photophobia. Normal and stable vital signs. Normal mental status Head and neck: normocephalic, atraumatic, no C spine TTP or decreased ROM. Eyes: EOMI, PERRL, no nystagmus. Normal visual acuity with slight decrease in peripheral visual samayoa. Oropharynx: no pharyngeal erythema, tonsillar exudates Cardiac: Regular rate and rhythm, no murmurs, rubs or gallops. 2+ distal pulses. 1+ pitting edema to bilateral LE Pulmonary: Clear breath sounds bilaterally, no respiratory distress GI: Soft, non-tender, non-distended. No rebound tenderness or voluntary guarding. Normal bowel sounds. No palpable organomegaly. Musculoskeletal: No obvious deformities or TTP Skin: No rashes, lesions, lacerations noted. No bruising Neurological: CN 2-12 intact. Normal motor function in bilateral UE and bilateral LE. Sensation grossly intact. Psychiatric: appropriate mood and affect MDM MDM 33-year-old female with history of migraines, idiopathic intracranial hypertension, polycystic kidney disease presents with several weeks of worsening headache with associated nausea but no vomiting,blurry vision in bilateral upper extremity tingling. Patient was recently diagnosed with idiopathicintracranial hypertension with an opening pressure of 40. Her symptoms have gotten worse so she came here for further evaluation. Likely worsening idiopathic intracranial hypertension versus migraine, lower concern for tumor brain bleed. Low concern for stroke. No concern for central cord syndrome.Plan for basic labs, CT scan of his head, likely lumbar puncture. Disposition unclear but pending symptom control. He is neurologically intact so I have low concern for admission outside of symptom control. Also concern for volume overload, possibly secondary to proteinuria verses the congestive heart failure. Will plan for renal function panel and urinalysis Attending Summary of Care 33 y/o F with hx IIH dx at OSH recently after CT/LP/neuro eval, PCOS, DVT not on anticoagulation, chronic migraines, IDDM here with multiple neuro complaints: headache, blurry vision, intermittent feet numbness, photo/phonophobia. Pt with questionable decreased visual samayoa on exam, otherwise non focal neuro exam. High prob: complex migraine. Mod prob: uncontrolled DM, neuropathy, tension HASTINGS, somatization. Lowersuspicion for recurrent IIH, but this is also an option. Low suspicion for ICH, CVA, AMI, PE, aortic dissection, infection. Will check labs, IVF, haldol/toradol/benadryl for HASTINGS, CT head. If improved s/p migraine tx will d/cwith outpt f/u as scheduled. If persistent sx, will consider neuro consult for further w/u. I have seen and examined the patient on 02/05/19. I agree with the findings and plan of care as documented in the resident's note unless documented otherwise. ED Course as of Feb 06 1444 Time: 02/05 523 Comment: CBC unremarkable. Rest of labs pending. CT head unremarkable. Plan for Neurology consult for further recommendations By: Sameer Bautista MD Time: 02/05 621 Comment: UA with evidence of urinary tract infection. BMP unremarkable. Renal function panel unremarkable. CBC unremarkable. Coags normal. By: Sameer Bautista MD Time: 02/05 622 Comment: CT head with no acute intracranial abnormality. GI cocktail going. Patient waiting on neurology consult. By: Sameer Bautista MD No diagnosis found. This is doctor Ibeth's note, I do not know why it is in my work queue. I will sign this for regulatory compliance Benny Rowe MD PhD 02/05/198 * Yajaira Burks RN - 02/05/2019 3:15 AM CDT Assumed care over pt. Pt presented to ED with c/o muscle pain, migraine, blurry vision. Pt states she is having numbness and tingling in bilateral hands/feet. Pt states she is having worsening symptoms as the day goes on. Pt tells this RN that Monday is when the symptoms started. Pt has been seen at OSH several times in regard to these symptoms and was told she had idiopathic intracranial hypertension and was told she needed a AUTOMATIC LATHE TENDER shunt. Yajaira Burks RN 02/05/19 0536 * Blossom Rust RN - 02/05/2019 3:03 AM CDT Bed: ED1-04 Expected date: Expected time: Means of arrival: Car Comments: Blossom Rust RN 02/05/19 0303 * Angi Erazo RN - 02/04/2019 6:41 PM CDT Patient presents with muscle pain and migraine. Patient took norco without relief. Patient having numbness and tingling in bilateral hands and feet. C/o of mouth numbness. I taste copper in my mouth. States her symptoms having been getting worse throughout the day. Patient is suppose to have shunt placed in brain but her symptoms have gotten worse today. Patient states Monday when she moves her hand in front of her face she sees about 10 hands. Has history of idiopathic intracranial hypertension. documented in this encounter Miscellaneous Notes * ED Re-evaluation Note - Benny Rowe MD PhD - 02/05/2019 7:57 AM CDT ED Re-evaluation The neurology attending has staff a consult from his fall. They believe that she is having complex migraines. They request new prescription for olanzapine 5 mg q.h.s. The patient is to follow up in the near term in their clinic Benny Rowe MD PhD 02/05/19 0758 * ED Procedure Note - Sameer Bautista MD - 02/05/2019 7:27 AM CDT Associated Order(s): US Ocular Procedure US Ocular Date/Time: 02/05/2019 7:27 AM Performed by: Sameer Bautista MD Authorized by: Christina Cristina MD RN Notified of Procedure: yes Informed consent: Risks, benefits, alternatives discussed Indications: Evaluate for papilledema Anesthesia method: None Patient tolerance of procedure: Tolerated with difficulty Bilateral occular U/S. Direct application of probe to eyelid without Tegaderm at request of patient. Right eye without evidence of retinal detachment, vitreal tear or hemorrhage. Optic disk 0.35cm Left eye without evidence of retinal detachment, vitreal tear or hemorrhage. Optic disk 0.31cm Sameer Bautista MD Resident 02/05/19 0729 Cosigned by Christina Cristina MD at 02/08/2019 6:29 AM CDT Associated attestation - Christina Cristina MD - 02/08/2019 6:29 AM CDT I have personally reviewed the image and the resident's interpretation. I agree with the findings. documented in this encounter Plan of Treatment Not on file documented as of this encounter Procedures Procedure Name Priority Date/Time Associated Diagnosis Comments ED GENERAL Routine 02/05/2019 7:27 AM CDT URINALYSIS, MACROSCOPIC Routine Gen Lab 02/05/2019 5:10 AM CDT URINALYSIS, MICROSCOPIC ONLY Routine Gen Lab 02/05/2019 5:10 AM CDT URINE CULTURE Routine Gen Lab 02/05/2019 5:10 AM CDT DIFFERENTIAL AUTO Routine Gen Lab 02/05/2019 4:3 7 AM CDT PRO B-TYPE NATRIURETIC PEPTIDE Routine Gen Lab 02/05/2019 4:37 AM CDT CBC WITH AUTO DIFFERENTIAL Routine Gen Lab 02/05/2019 4:37 AM CDT APTT Routine Gen Lab 02/05/2019 4:37 AM CDT PROTIME-INR Routine Gen Lab 02/05/2019 4:37 AM CDT RENAL FUNCTION PANEL Routine Gen Lab 02/05/2019 4:[address] HEAD WO CONTRAST ED 02/05/2019 4 :11 AM CDT POCT GLUCOSE DEVICE Routine Gen Lab 02/04/2019 7 :18 PM CDT documented in this encounter Results * US Ocular (02/05/2019 7:27 AM CDT) Narrative Christina Cristina MD - 02/05/2019 7:27 AM CDT Sameer Bautista MD ? 02/05/2019 ??7:29 AM US Ocular Date/Time: 02/05/2019 7:27 AM Performed by: Sameer Bautista MD Authorized by: Christina Cristina MD RN Notified of Procedure: yes ?? Informed consent: ??Risks, benefits, alternatives discussed Indications: ??Evaluate for papilledema Anesthesia method: ??None Patient tolerance of procedure: ??Tolerated with difficulty Bilateral occular U/S. ??Direct application of probe to eyelid without Tegaderm at request of patient. Right eye without evidence of retinal detachment, vitreal tear or hemorrhage. ??Optic disk 0.35cm Left eye without evidence of retinal detachment, vitreal tear or hemorrhage. ??Optic disk 0.31cm us Christina Cristina MD IN CLINIC/BEDSIDE ORDERAB LES Final Result * Urine culture Urine (02/05/2019 5:10 AM CDT) Report Final Report: Growth indicative of contamination with periurethral kalen. Please submit a new specimen with special attention given to the collection process and to prompt transport to the laboratory. [facility] Organism GROWTH INDICATES CONTAM WITH PERIURETHRAL KALEN. [facility] Urine 02/05/2019 5:10 AM CDT 02/05/2019 7:41 AM CDT Narrative [facility] - 02/06/2019 7:38 AM CDT Urine culture reflexed based upon urinalysis results. Testing performed by [facility] Microbiology Laboratory ([phone]) us Notinfile Unknown LAB MICROBIOLOGY - GENERAL ORD ERABLES Final Result Performing Organization Address [facility]/ZIP Co de Phone Number [facility] Department [place] [address] * (ABNORMAL) Urinalysis, microscopic only (02/05/2019 5:10 AM CDT) WBC, ur 21-50(A) 0 - 5 /HPF [facility] RBC, ur 3-5(A) 0 - 2 /HPF [facility] Epithelial cells, squamous, ur 1-5 0 - 5 /HPF [facility] Mucous, ur Present(A) [facility] Calcium oxalate crystals, ur 2+(A) [facility] Hyaline casts, ur 11-20(A) 0 - 10 /LPF [facility] Urine 02/05/2019 5:10 AM CDT 02/05/2019 5:51 AM CDT Narrative [facility] - 02/05/2019 5:59 AM CDT us Notinfile Unknown LAB URINE ORDERABLES Final Res ult [facility] Department [place] [address] * (ABNORMAL) Urinalysis, macroscopic Urine (02/05/2019 5:10 AM CDT) Color, ur Yellow Yellow [facility] Clarity, ur Cloudy(A) Clear [facility] Specific gravity, ur 1.024 1.010 - 1.025 [facility] pH, urine 5.0 [facility] Protein, ur ql 2+(A) Negative [facility] Glucose, ur ql 3+(A) Negative [facility] Ketones, ur Negative Negative [facility] Bilirubin, ur Negative Negative [facility] Blood, ur Negative Negative [facility] Urobilinogen, ur <2.0 <2.0 mg/dL [facility] Nitrite, ur Negative Negative [facility] Leukocyte esterase, ur 1+(A) Negative [facility] Urine 02/05/2019 5:10 AM CDT 02/05/2019 5:51 AM CDT Narrative [facility] - 02/05/2019 5:56 AM CDT us Notinfile Unknown LAB MICROBIOLOGY - GENERAL ORD ERABLES Final Result [facility] Department [place] [address] * Pro B-type natriuretic peptide (02/05/2019 4:37 AM CDT) NT-proBNP <50 <=300 pg/mL [facility] Comment: Interpretive Comments: A. Dyspnea in Acute Care Setting All Ages: ??< 300 pg/ml, acute heart failure unlikely < 50 yrs: ??> or = 300 pg/ml and < or = 450 pg/ml, further investigation warranted ??> 450 pg/ml, acute heart failure likely 50 - 74 yrs > or = 300 pg/ml and < or = 900 pg/ml, further investigation warranted ??> 900 pg/ml, acute heart failure likely > or = 75 yrs 450 - 1800 pg/ml, further investigation warranted ??> 1800 pg/ml, acute heart failure likely B. Non-acute Setting < 75 yrs ??< 125 pg/ml, rules out heart failure ??> or = 125 pg/ml, further investigation warranted > or = 75 yrs < 450 pg/ml, rules out heart failure ??> or = 450 pg/ml, further investigation warranted Knowledge of each individual patient's NT-proBNP range may be more useful than using similar cut-points for every patient. Please note that marked elevations in NT-proBNP levels may be observed in state other than Left Ventricular Congestive Failure, including: acute coronary syndromes, right heart strain/failure (including pulmonary embolism and cor pulmonale), critial illness, renal failure, as well as advanced age. References: 1. Bennett GUILLAUME et.al. Eur Heart J. 2006:27:330-337. 2. Mg RW, Miguelangel SIDDIQUI. J. AM Juan Cardiol: Cardiovasc Imag. 2009;2: 216- 225. Interpretive Data Last Revised Date: 2018. Blood specimen (specimen) 02/05/2019 4:37 AM CDT 02/05/2019 5:10 AM CDT Narrative [facility] - 02/05/2019 6:14 AM CDT us Notinfile Unknown LAB BLOOD ORDERABLES Final Res ult [facility] Department [place] [address] * (ABNORMAL) Renal function panel (02/05/2019 4:37 AM CDT) Sodium 138 135 - 145 mmol/L [facility] Potassium, pl 3.4 3.3 - 4.9 mmol/L [facility] Chloride 105 97 - 110 mmol/L [facility] CO2 21(L) 22 - 32 mmol/L [facility] Anion gap 12 2 - 15 mmol/L [facility] BUN 21 8 - 25 mg/dL [facility] Creatinine 0.69 0.60 - 1.10 mg/dL [facility] Glucose 186 70 - 199 mg/dL [facility] Comment: Interpretive Data Fasting glucose >/= 126 [...] 2017. Calcium 10.0 8.5 - 10.3 mg/dL [facility] Phosphorus, pl 4.6(H) 2.3 - 4.5 mg/dL [facility] Albumin 4.1 3.5 - 5.0 g/dL [facility] Blood specimen (specimen) 02/05/2019 4:37 AM CDT 02/05/2019 4:53 AM CDT Narrative [facility] - 02/05/2019 5:45 AM CDT us Notinfile Unknown LAB BLOOD ORDERABLES Final Res ult [facility] Department [place] [address] * Differential, auto (02/05/2019 4:37 AM CDT) Neutrophil abs 3.3 1.7 - 6.5 K/cumm [facility] Imm gran abs 0.0 0.0 - 0.1 K/cumm [facility] Lymphocyte abs 2.8 0.8 - 3.3 K/cumm [facility] Monocyte abs 0.5 0.2 - 0.8 K/cumm [facility] Eosinophil abs 0.2 0.0 - 0.5 K/cumm [facility] Basophil abs 0.0 0.0 - 0.1 K/cumm [facility] Neutrophil pct 49.1 % [facility] Comment: Interpretive Data Percent cell count reference ranges are not reported, since discordance with absolute values may lead to misinterpretation of CBC data. Current Interpretive Data was last revised on 2018. Imm gran pct 0.1 % [facility] Comment: Interpretive Data Percent cell count reference ranges are not reported, since discordance with absolute values may lead to misinterpretation of CBC data. Current Interpretive Data was last revised on 2018. Lymphocyte pct 40.3 % [facility] Comment: Interpretive Data Percent cell count reference ranges are not reported, since discordance with absolute values may lead to misinterpretation of CBC data. Current Interpretive Data was last revised on 2018. Monocyte pct 7.0 % [facility] Comment: Interpretive Data Percent cell count reference ranges are not reported, since discordance with absolute values may lead to misinterpretation of CBC data. Current Interpretive Data was last revised on 2018. Eosinophil pct 3.1 % [facility] Comment: Interpretive Data Percent cell count reference ranges are not reported, since discordance with absolute values may lead to misinterpretation of CBC data. Current Interpretive Data was last revised on 2018. Basophil pct 0.4 % [facility] Comment: Interpretive Data Percent cell count reference ranges are not reported, since discordance with absolute values may lead to misinterpretation of CBC data. Current Interpretive Data was last revised on 2018. Blood specimen (specimen) 02/05/2019 4:37 AM CDT 02/05/2019 4:52 AM CDT Narrative [facility] - 02/05/2019 5:21 AM CDT us Notinfile Unknown LAB BLOOD ORDERABLES Final Res ult [facility] Department [place] [address] * (ABNORMAL) CBC with auto differential (02/05/2019 4:37 AM CDT) WBC 6.8 3.8 - 9.9 K/cumm [facility] Hgb 12.1 11.9 - 15.5 g/dL [facility] Hct 37.1 35.6 - 45.5 % [facility] Plt 230 150 - 400 K/cumm [facility] MPV 8.6(L) 9.1 - 12.3 fL [facility] RBC 4.52 3.90 - 5.20 M/cumm [facility] MCV 82.1 81.3 - 96.4 fL [facility] MCH 26.8(L) 27.1 - 33.3 pg [facility] MCHC 32.6 32.3 - 35.7 g/dL [facility] RDW CV 14.9 11.1 - 14.9 % [facility] RDW SD 44.4 35.7 - 48.1 fL [facility] NRBC abs 0.00 0.00 - 0.01 K/cumm [facility] Blood specimen (specimen) 02/05/2019 4:37 AM CDT 02/05/2019 4:52 AM CDT Narrative [facility] - 02/05/2019 5:21 AM CDT us Notinfile Unknown LAB BLOOD ORDERABLES Final Res ult Performing Organization Address City/State/[facility] Co de Phone Number [facility] Department [place] [address] * Protime-INR (02/05/2019 4:37 AM CDT) PT 10.4 8.5 - 13.0 sec [facility] INR 0.97 0.80 - 1.21 [facility] Comment: Interpretive Data Inpatient therapeutic ranges* Atrial fibrillation ?2.0-3.0 INR Venous thrombo-embolism ?2.0-3.0 INR Bioprosthetic heart valve ?* Mechanical heart valve, bileaflet or tilting disk,aortic position ? 2.0-3.0 INR All other,or bileaflet or tilting disk, in mitral position ? 2.5-3.5 INR *See the pharmacy resource directory (PHRED) for an updated copy of the Tool Book at [email or web address] Current Interpretive Data was last revised 2012. Blood specimen (specimen) 02/05/2019 4:37 AM CDT 02/05/2019 4:52 AM CDT Narrative [facility] - 02/05/2019 5:11 AM CDT us Notinfile Unknown LAB BLOOD ORDERABLES Final Res ult Performing Organization Address [facility] de Phone Number [facility] [place] [address] * aPTT (02/05/2019 4:37 AM CDT) aPTT 30.6 25.0 - 37.0 sec [facility] Comment: Interpretive Data Therapeutic heparin range:60.0 - 94.0 sec based on correlation with therapeutic heparin activity range of 0.3 -0.7 Units/mL. Current interpretive data was last revised on 2011. Blood specimen (specimen) 02/05/2019 4:37 AM CDT 02/05/2019 4:52 AM CDT Narrative [facility] - 02/05/2019 5:11 AM CDT Notinfile Unknown LAB BLOOD ORDERABLES Final Res ult Performing Organization Address [facility] de Phone Number [facility] [place] [address] * CT Head WO Contrast (02/05/2019 4:11 AM CDT) Anatomical Region Laterality Modality Head and Neck N/A Computed Tomogra phy 02/05/2019 4:58 AM CDT Impressions 02/05/2019 9:04 AM CDT No acute intracranial abnormality. Dictated by: Juan Pablo Ceballos M.D. Electronically signed by: Susancabrera Sung M.D. Narrative 02/05/2019 9:04 AM CDT EXAMINATION: CT head without contrast HISTORY: Headache, vision changes. TECHNIQUE: Noncontrast CT of the brain was performed with images acquired from skull base to vertex. COMPARISON: None available. FINDINGS: Findings of hyperostosis frontalis interna are present. There is no acute intracranial hemorrhage. Ventricles are of normal size and morphology. No mass effect or midline shift is present. The barrera-white matter differentiation is normal. The visualized portions of the orbits are normal. The visualized portions of the mastoids are normal. The visualized portions of the paranasal sinuses are normal. No fractures are identified. Procedure Note Susan Sung MD - 02/05/2019 EXAMINATION: CT head without contrast HISTORY: Headache, vision changes. TECHNIQUE: Noncontrast CT of the brain was performed with images acquired from skull base to vertex. COMPARISON: None available. FINDINGS: Findings of hyperostosis frontalis interna are present. There is no acute intracranial hemorrhage. Ventricles are of normal size and morphology. No mass effect or midline shift is present. The barrera-white matter differentiation is normal. The visualized portions of the orbits are normal. The visualized portions of the mastoids are normal. The visualized portions of the paranasal sinuses are normal. No fractures are identified. IMPRESSION: No acute intracranial abnormality. Dictated by: Juan Pablo Ceballos M.D. Electronically signed by: Susan Sung M.D. Sameer Bautista MD [facility] CT PROCEDURES Final Result * (ABNORMAL) POCT glucose (02/04/2019 7:18 PM CDT) Glucose, POC 252(H) 70 - 199 mg/dL [facility] Blood specimen (specimen) 02/04/2019 7:18 PM CDT 02/04/2019 7:18 PM CDT Narrative [facility] - 02/04/2019 7:39 PM CDT Notinfile Unknown LAB POCT ORDERABLES - DEVICE F inal Result [facility] Department [place] [address] documented in this encounter Visit Diagnoses Diagnosis Other migraine without status migrainosus, not intractable- Primary documented in this encounter Administered Medications Inactive Administered Medications - up to 3 most recent administrations Medication Order MAR Action Action Date Dose Rate Site diphenhydrAMINE (BENADRYL) tab/cap 25 mg 25 mg, oral, Once, On Mon02/05/19 at 0357, For 1 dose Given 02/05/2019 5:04 AM CDT 25 mg haloperidol (HALDOL) injection 5 mg 5 mg, intramuscular, Administer over 5 Minutes, Once, On Mon02/05/19 at 0357, For 1 dose, Put into 500 cc normal saline Given 02/05/2019 5:05 AM CDT 5 mg Other (Comment) ketorolac (TORADOL) injection 30 mg 30 mg, intravenous, Once, On Mon02/05/19 at 0357, For 1 dose, For Adult IV push, administer over 15 seconds Given 02/05/2019 5:06 AM CDT 30 mg sodium chloride 0.9% bolus 500 mL 500 mL, intravenous, at 500 mL/hr, Administer over 1 Hours, Once, On Mon02/05/19 at 0357, For 1 dose New Bag 02/05/2019 5:06 AM CDT 500 mL 500 mL/hr documented in this encounter Historical Medications * This list may reflect changes made after this encounter. furosemide (LASIX) 20 mg tablet Take 20 mg by mouth daily as needed 1 propranolol (INDERAL) 20 mg tablet Take 20 mg by mouth daily 1 metoprolol (LOPRESSOR) 50 mg tablet Take 50 mg by mouth 2 (two) times a day 9 glyBURIDE (DIABETA) 2.5 mg tablet Take 2.5 mg by mouth daily with breakfast 1 acetaZOLAMIDE (DIAMOX) 250 mg tablet Take 250 mg by mouth 2 (two) times a day 1 HYDROcodone-acet aminophen (NORCO) 5-325 mg per tabletIndication s:Pain Take 1 tablet by mouth every 6 (six) hours as needed 1 amLODIPine (NORVASC) 5 mg tablet Take 10 mg by mouth daily 1 insulin glargine (LANTUS,BASAGLAR ) 100 unit/mL (3 mL) insulin pen 20 Units daily 12/30 1 added in this encounter Active and Recently Administered Medications Times are shown in CDT. Scheduled Medication Order 02/03/2019 02/04/2019 02/05/2019 diphenhydrAMINE (BENADRYL) tab/cap 25 mg (COMPLETED) 25 mg, oral, Once, On Mon02/05/19 at 0357, For 1 dose 0504 (Given - Provid er: Yajaira Burks RN) haloperidol (HALDOL) injection 5 mg (COMPLETED) 5 mg, intramuscular, Administer over 5 Minutes, Once, On Mon02/05/19 at 0357, For 1 dose, Put into 500 cc normal saline 0505 (Given - Provid er: Yajaira Burks RN) ketorolac (TORADOL) injection 30 mg (COMPLETED) 30 mg, intravenous, Once, On Mon02/05/19 at 0357, For 1 dose, For Adult IV push, administer over 15 seconds 0506 (Given - Provid er: Yajaira Burks RN) sodium chloride 0.9% bolus 500 mL (COMPLETED) 500 mL, intravenous, at 500 mL/hr, Administer over 1 Hours, Once, On Mon02/05/19 at 0357, For 1 dose 0506 (New Bag - Prov ider: Yajaira Burks RN)0643 (Stopped - Provider: Jessica Ling RN) documented in this encounter Orders Medications Ordered That Brendan ht Not Have Been Administered Count Last Ordered Date First Ordered Date diphenhydrAMINE (BENADRYL) tab/cap 25 mg 1 02/05/2019 ketorolac (TORADOL) injection 30 mg 1 02/05 prochlorperazine (COMPAZINE) injection 10 mg 1 02/05/2019 sodium chloride 0.9% bolus 1,000 mL 1 02/05 Lab Orders Without Results Count Last Ordered D ate First Ordered Date POCT GLUCOSE DEVICE 1 02/04/2019 Consult Count Last Ordered Date First Orde red Date IP CONSULT TO NEUROLOGY 1 02/05/2019 documented in this encounter Care Teams Willower Relationship Specialty Start Date End Date Unknown, Notinfile PCP - General 02/04/19 02/10/19 documented as of this encounter
--- OUTSIDE RECORDS SUMMARY | 2024-11-17 14:29 | XMS_ITS | Encounter Summary ---
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 Hospital Encounter [facility] Emergency Department [address] [place] [id number] Unknown, Notinfile Discharge Disposition: Left without being seen Social History Tobacco Use Types Packs/Day Years Used Date Smoking Tobacco: Never Assessed Comments Unknown Sex and Gender Information Value Date Recorded Sex Assigned at Not on file Legal Sex Female 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
--- OUTSIDE RECORDS SUMMARY | 2024-11-17 14:29 | XMS_ITS | Encounter Summary ---
Author Organization [facility] Healthcare Address [address] [place] [address] Care Team Providers Care Cannon Pinion Adjuster Name Role Phone Unknown, Notinfile Primary Care Provider Unavail able Reason for Visit * Reason Comments Blurred Vision sent in my neuro off ice for neuro surg and ophtho consult Encounter Details Date Type Department Care Team (Late st Contact Info) Description 02/07/2019 6:47 PM CDT - 02/08/2019 2:33 AM CDT Emergency [facility] Emergency Department [address] [place] [address] Marvin Portillo MD [facility] [address] [place] [address] Alec Evans MD PhD [address] [place] [address] Vision changes (Primary Dx) Discharge Disposition: Discharge to home [...] on file 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 Gender Identity Not on file Sexual Orientation Not on file documented as of this encounter Last Filed Vital Signs Vital Sign Reading Time Taken Comments Blood Pressure 122/61 02/08/2019 1:30 AM CDT Pulse 80 02/08/2019 1:30 AM CDT Temperature 36.7 ??C (98.1 ??F) 02/07/2019 5:46 PM CD T Respiratory Rate 11 02/08/2019 1:30 AM CDT Oxygen Saturation 100% 02/08/2019 1:30 AM CDT Inhaled Oxygen Concentration - - Weight 88.5 kg (195 lb) 02/07/2019 5:38 PM CDT Height 162.6 cm (5' 4 ) 02/07/2019 5:38 PM CDT Body Mass Index 33.47 02/07/2019 5:38 PM CDT documented in this encounter Discharge Instructions * Discharge Instructions* Ekaterina Alexis MD - 02/08/2019 2:20 AM CDT You were seen in the Emergency Department for blurry vision and headache. Ophthalmology evaluated you here and would like you to follow up in their clinic in 1 week ([phone]). Follow up at your already scheduled Neurosurgery appointment tomorrow morning to discuss further evaluation and management of your current symptoms. Return to the ED if you worsening symptoms or new sensory or motor deficits. * Attachments The following attachments cannot be sent through Care Everywhere. * Blurred Vision (AfterCare(R) Instructions(ER/ED)) (Ethiopian) documented in this encounter Medications at Time [...] Discharge Disposition Disposition Code Departure Means Destination Comment s Discharge to home or self care Patient was unhappy upon leaving. Patient stated she would not return. Patient was given discahrge instructions and escorted to the waiting room. documented in this encounter Consult Notes * Diana Leon MD PhD - 02/07/2019 10:53 PM CDTAssociated Order(s): IP CONSULT TO OPHTHALMOLOGY OPHTHALMOLOGY - ED NEW CONSULT REPORT Reason for Consult: 33 yo F with OSH dx of IIH, here w/ persistent vision blurriness and loss of peripheral vision Requesting Provider: ED Admit Date: 02/07/2019 6:47 PM Admit Diagnosis: BLURRY VISION History of Present Illness:This is a 33 y.o. female with hx of DMII, IIH, HTN, PCOS, PKD, anxiety, depression, bipolar disorder, migraine headaches presenting with blurry vision and peripheral visionloss that has been fluctuating over the past several weeks. States she has continued to have blurry vision at distance and near, and that her glasses do not help so she has not been wearing them. The glasses also make her eyes burn. She has prolonged afterimages with bright lights, along with occasional flashes and floaters. HX of rare TVOs for >1 year, with no increase in frequency recently. Has not had a formal ophtho eval since her diagnosis of IIH. She has a recent diagnosis of IIH with MRI and LP with opening pressure of 40 done at [facility] lastmonth, she was started on diamox. She has a 17-year history of DM2 which is poorly controlled on insulin (pt reports baseline BG is in the 200s). She is also on multiple medications for HTN. Review of Systems: Ocular ROS as above Unless noted in HPI all other systems negative. Past Ocular History: Past Medical History: Diagnosis Date ??? Diabetes mellitus (CMS/HCC) ??? DVT (deep venous thrombosis) (CMS/HCC) ??? Idiopathic intracranial hypertension ??? Polycystic ovarian disease ??? Renal disorder a Past Surgical History: Procedure Laterality Date ??? SECTION ??? CHOLECYSTECTOMY ??? TUBAL LIGATION History reviewed. No pertinent family history. Social History Socioeconomic History ??? Marital status: Spouse name: Not on file ??? Number of children: Not on file ??? Years of education: Not on file ??? Highest education level: Not on file Occupational History ??? Not on file Social Needs ??? Financial resource strain: Not on file ??? Food insecurity: Worry: Not on file Inability: Not on file ??? Transportation needs: Medical: Not on file Non-medical: Not on file Tobacco Use ??? Smoking status: Current Some Day Smoker ??? Smokeless tobacco: Never Used Substance and Sexual Activity ??? Alcohol use: Never Frequency: Never ??? Drug use: Not on file ??? Sexual activity: Not on file Lifestyle ??? Physical activity: Days per week: Not on file Minutes per session: Not on file ??? Stress: Not on file Relationships ??? Social connections: Talks on phone: Not on file Gets together: Not on file Attends taoism service: Not on file Active member of club or organization: Not on file Attends meetings of clubs or organizations: Not on file Relationship status: Not on file ??? Intimate partner violence: Fear of current or ex partner: Not on file Emotionally abused: Not on file Physically abused: Not on file Forced sexual activity: Not on file Other Topics Concern ??? Not on file Social History Narrative ??? Not on file No current facility-administered medications for this encounter. [...] mouth 2 (two) times a day ??? OLANZapine (ZyPREXA) 5 mg tablet Take 1 tablet (5 mg total) by mouth nightly 5 tablet 0 ??? propranolol (INDERAL) 20 mg tablet Take 20 mg by mouth daily Physical Exam: Vitals: 02/08/19 0000 BP: 132/78 Pulse: 88 Resp: 19 Temp: SpO2: 100% Base Eye Exam Visual Acuity (near card) Right Left Near sc 20/25 20/25 Tonometry (Tonopen, 10:51 PM) Right Left Pressure 16 31 Squeezing, + stuart's Pupils Pupils Dark Light Shape React APD Right PERRL 5 3 Round Brisk None Left PERRL 5 3 Round Brisk None Visual Guerra Right Left Restrictions Partial outer superior temporal, inferior temporal, superior nasal, inferior nasal deficiencies Partial outer superior temporal, inferior temporal, superior nasal, inferior nasal deficiencies Extraocular Movement Right Left -- -- -- -0.5 -- -- -- -- -- -- -- -- -0.5 -- -- -- Horizontal diplopia in far right, far left, and far superior gaze Neuro/Psych Oriented x3: Yes Mood/Affect: Normal Dilation Both eyes: 1.0% Mydriacyl, 2.5% Phenylephrine @ 10:52 PM Additional Tests Color Right Left Ishihara 08/31 08/31 Pt answered control plates quickly OU, took much more time with the test plates Slit Lamp and Fundus Exam External Exam Right Left External Normal Normal Portable Slit Lamp Exam Right Left Lids/Lashes Normal Normal Conjunctiva/Sclera White and quiet White and quiet Cornea Clear Clear Anterior Chamber Deep and quiet Deep and quiet Iris Round and reactive Round and reactive Lens Clear Clear Vitreous Normal Normal Fundus Exam Right Left Disc no edema no edema C/D Ratio 0.3 0.2 Macula many MAs Many Mas, multiple white lesions (?CWS) along superior arcade with surrounding vascular changes Vessels copper wiring copper wiring Periphery no RT/RD/necrosis no RT/RD/necrosis Lab/Radiology/Diagnostic Review: CT head No acute intracranial abnormality. ASSESSMENT/PLAN AND RECOMMENDATIONS: 1. Vision changes- with associated prolonged afterimages, retinal vascular changes, and no papilledema this is more likely secondary to macular disease than her psuedotumor. Migraine headaches may also be playing a role. Her symptoms have been stable for at least the past week or two. VA 20/25 OU. -- etiology: diabetic retinopathy vs hypertensive retinopathy vs less likely white dot syndrome -- follow up in outpatient clinic next week for repeat DFEx, OCT macula, fundus photos -- encouraged good glycemic control -- reviewed return precautions 2. IIH- recently diagnosed, has not had a formal ophthalmology workup. Did have an MRI and LP at OSH with OP 40. Pt on diamox -- no papilledema on exam -- visual guerra somewhat constricted peripherally OU on confrontation -- has hx of occasional TVOs -- can follow up as outpatient for baseline visual guerra and OCT at some point Ophthalmology follow-up: Please call the [facility] ([facility]) at [phone] to schedule afollow up visit. Diana Leon MD PhD, PhD 02/08/2019 12:34 AM Ophthalmology Resident, PGY-2 Please page the ophthalmology resident on-call via [employer] with any questions. This consult is NOT complete without attending attestation and/or cosign. Cosigned by Alice Ku MD PhD at 02/08/2019 6:35 AM CDT Associated attestation - Alice Ku MD PhD - 02/08/2019 6:35 AM CDT I have not seen or examined the patient. I have discussed the patient with the resident and agree with their assessment and plan as above. Will see patient in [facility] within the next week for additional testing, and immediately if patient develops new or worsening vision symptoms. Alice Ku MD PhD 02/08/2019 6:34 AM documented in this encounter ED Notes * Marvin Portillo MD - 02/07/2019 7:48 PM CDT HPI Chief Complaint Patient presents with ??? Blurred Vision sent in my neuro office for neuro surg and ophtho consult Ms. Guo is a 33-year-old female with history of DMII, IIH, PCOS, PKD, anxiety, depression, bipolar disorder coming in now with persistent blurry vision. She reports that this began two weeks ago and has been worsening in severity. She is unsure what her usual visual acuity is and notes that she is supposed to wear glasses but reports that her glasses are not helping. She was seen here recently and treated for a migraine. She reports that when she was previously here, her headache was different as in it was much more intense, occipital with radiation forward, and associated with photophobia and phonophobia. This headache improved with a migraine cocktail and she went home, however she noticed that the vision changes persisted. Upon discussion with a NSGY RN for her appointment tomorrow, she was informed to come immediately to the ED to have an evaluation. She has a current headache butreports that it is frontal, behind her eyes, and manageable . With regards to her IIH diagnosis- this was done at [facility] with an LP that had an opening pressure to 40. She reports that after that her headache at that time resolved but again, her visual symptoms persisted. She was then started on diamox with little relief. Her home neurologist informed her that she would need NSGY for a COOK VACUUM KETTLE shunt. She has not had any other LPs since this. Patient History There are no active problems to display for this patient. Past Medical History: Diagnosis Date ??? Diabetes mellitus (CMS/HCC) ??? DVT (deep venous thrombosis) (CMS/HCC) ??? Idiopathic intracranial hypertension ??? Polycystic ovarian disease ??? Renal disorder Past Surgical History: Procedure Laterality Date ??? SECTION ??? CHOLECYSTECTOMY ??? TUBAL LIGATION History reviewed. No pertinent family history. Social History Tobacco Use ??? Smoking status: Current Some Day Smoker ??? Smokeless tobacco: Never Used Substance Use Topics ??? Alcohol use: Never Frequency: Never ??? Drug use: Not on file Social History Social History Narrative ??? Not on file Review of Systems Review of Systems Constitutional: Negative for chills and fever. HENT: Negative for ear pain, rhinorrhea and sore throat. Eyes: Negative for pain and visual disturbance. Respiratory: Negative for cough and shortness of breath. Cardiovascular: Positive for chest pain. Negative for palpitations. (chronic chest pain) Gastrointestinal: Positive for abdominal pain, constipation and diarrhea. Negative for nausea and vomiting. (chronic abdominal pain) Genitourinary: Negative for dysuria and hematuria. Musculoskeletal: Positive for neck stiffness. Negative for arthralgias and back pain. (prior neck stiffness, since resolved) Skin: Negative for color change and rash. Neurological: Negative for seizures and syncope. All other systems reviewed and are negative. Physical Exam ED Triage Vitals [02/07/19 1746] Temp Pulse Resp BP SpO2 36.7 ??C (98.1 ??F) 95 20 119/88 99 % Temp src Heart Rate Source Patient Position BP Location FiO2 (%) Oral -- -- -- -- Physical Exam Constitutional: She is oriented to person, place, and time. She appears well- developed and well-nourished. No distress. HENT: Head: Normocephalic and atraumatic. Eyes: Pupils are equal, round, and reactive to light. Conjunctivae and EOM are normal. + visual guerra diminished bilaterally with peripheral + visual acuity 20/200 bilaterally + pain with looking into corners + no conjunctival injection or hemorrhage, no abnormal discharge Neck: Neck supple. Cardiovascular: Normal rate, regular rhythm and normal heart sounds. No murmur heard. Pulmonary/Chest: Effort normal and breath sounds normal. No respiratory distress. Abdominal: Soft. Bowel sounds are normal. She exhibits no distension. There is no tenderness. Thereis no guarding. Musculoskeletal: She exhibits no edema. Neurological: She is alert and oriented to person, place, and time. + decreased sensation on right side face, right upper and lower extremities + equal strength in bilateral upper and lower extremities Skin: Skin is warm and dry. Psychiatric: She has a normal mood and affect. Vitals reviewed. [facility] MDM Number of Diagnoses or Management Options Diagnosis management comments: MDM: Assessment: Ms. Guo is a 33-year-old female with history of DMII, IIH, PCOS, PKD, anxiety, depression, bipolar disorder coming in now with persistent blurry vision. The diagnosis of IIH is relatively new, confirmed with LP reportedly at OSH and patient has been on diamox. Physical exam notable for decreased peripheral vision on visual guerra. Ddx: worsening IIH, persistent migraine, less likely ICH, CVA, Plan: 1) Labs: POCT glucose, 2) Imaging: May need more involved brain imaging 3) Interventions: - Ophtho c/s - NSGY c/s 4) Dispo pending results and clinical course- anticipate discharge with NSGY follow up Attending Summary of Care I have seen and examined the patient on 02/07/2019 . I agree with the findings and plan of care as documented in the resident's note. 33y F hx idiopathic intracranial hypertension (on diamox), empty sella syndrome, migraine headaches, PCKD, here w/ worsening blurry vision + lateral field vision change x 2 weeks. Diagnosed previously at [facility] in [place] 1 month ago; referred to [facility] neurosurgery (appt tomorrow), but told to come to ED for emergent eval given worsening vision. Exam - HEENT w/ PERRL, EOMI, MMM, OP melanie ar, heart sounds normal, lungs CTAB, abdomen soft and nontender, neuro non- focal. DDX: vision change, idiopathic intracranial hypertension. Check labs, consult ophtho + neurosurgery; had MRI at [facility] 4 weeks ago so will hold on additional imaging pending consult recs. ED Course as of Feb 09 1612 Time: 02/07 9580 Comment: Ophtho evaluated the patient, report no evidence of papilledema By: Ekaterina Alexis MD Time: 02/09 220 Comment: Spoke to NSGY, who recommended bMRI and LP w/ fluoro, however they say that these studies can be ordered at the already scheduled follow up appointment tomorrow. By: Ekaterina Alexis MD Vision changes Juliet Calles MD Resident 02/07/19 2333 Marvin Portillo MD 02/08/19 1612 * Lesly Vincent, HARDIK - 02/07/2019 6:47 PM CDT Bed: ED1-04 Expected date: Expected time: Means of arrival: Car Comments: Lesly Vincent RN 02/07/19 184 * Khalida Bates, HARDIK - 02/07/2019 5:39 PM CDT Pt here with pain behind kimmy eyes and HASTINGS. Pt with blurry vision to both eyes. L eye lid has droop x1 week. Flashes of light in peripheral view. Has intermittent black and white spots to kimmy eyes. Sxs started two weeks ago. Pt wears glasses. Denies n/v. Seen here on 02/05 for same sxs. Tx for migraine and discharged with follow up. Hx of idiopathic intracranial HTN. +photophobia. Has neurosurgery a ppointment tomorrow, and neurology appoint 02/18. After speaking with neurosurgery today they sent her to ED. documented in this encounter Miscellaneous Notes * ED Re-evaluation Note - Ekaterina Alexis MD - 02/07/2019 10:58 PM CDT ED Re-evaluation TRANSITION OF CARE: I, Ekaterina Alexis MD, am taking signout from Dr. Calles (Resident) under supervision of Dr. Portillo (Attending). I have reviewed all pertinent vital signs, allergies, and history available in the chart. Summary: 33 y.o. female T2DM, idiopathic intracranial hypertension (on diamox), empty sella syndrome, PCKD, bipolar d/o who presents with blurry vision. Was scheduled for NSGY appointment tomorrow for possible COOK VACUUM KETTLE shunt, told to come to ED by RN. Ddx: vision change, idiopathic intracranial hypertension. Plan for labs, ophtho, possible NSGY. Pending: ophtho recommendations, then discuss with NSGY Dispo: likely discharge with outpatient NSGY follow up Ekaterina Alexis MD Resident 02/07/19 5606 documented in this encounter Plan of Treatment Not on file documented as of this encounter Procedures Procedure Name Priority Date/Time Associated Diagnosis Comments POCT KETONE, FINGERSTICK Routine 02/07/2019 5:50 PM CDT POCT GLUCOSE DEVICE Routine Gen Lab 02/07/2019 5 :48 PM CDT documented in this encounter Results * POCT ketone, fingerstick (02/07/2019 5:50 PM CDT) Ketones, Blood, POC 0.1 0.1 - 0.5 mmol/L Blood specimen (specimen) 02/07/2019 5:50 PM CDT Marvin Portillo MD POINT OF CARE TEST OR DERABLES Final Result * (ABNORMAL) POCT glucose (02/07/2019 5:48 PM CDT) Glucose, POC 391(H) 70 - 199 mg/dL [facility] Blood specimen (specimen) 02/07/2019 5:48 PM CDT 02/07/2019 5:48 PM CDT Narrative LUCIEN THIBODEAUX - 02/07/2019 5:53 PM CDT us Notinfile Unknown LAB POCT ORDERABLES - DEVICE F inal Result [facility] Department [place] [address] documented in this encounter Visit Diagnoses Diagnosis Vision changes- Primary documented in this encounter Orders Lab Orders Without Results Count Last Ordered D ate First Ordered Date POCT GLUCOSE DEVICE 1 02/07/2019 Nursing Count Last Ordered Date First Orde red Date NURSING COMMUNICATION 1 02/07/2019 VISUAL ACUITY SCREENING 1 02/07/2019 Consult Count Last Ordered Date First Orde red Date IP CONSULT TO NEUROSURGERY 1 02/08/2019 IP CONSULT TO OPHTHALMOLOGY 1 02/07/2019 documented in this encounter Care Teams Cannon Pinion Adjuster Relationship Specialty Start Date End Date Unknown, Notinfile PCP - General 02/04/19 02/10/19 documented as of this encounter
--- OUTSIDE RECORDS SUMMARY | 2024-11-17 14:29 | XMS_ITS | Encounter Summary ---
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 ??There will be no report generated by a [facility] Radiologist. Narrative [facility] - 02/15/2019 2:41 PM CDT EXAMINATION: ??Images For Reference Purposes Only us Esau Miles MD IMG CT PROCEDURES Final Result [facility] documented in this encounter Visit Diagnoses Not on filedocumented in this encounter Care Teams Billing Rep Relationship Specialty Start Date End Date Dorota Martinez MD [address] [place], [place] [id number] PCP - General 02/11/19 12/10/20 documented as of this encounter
--- OUTSIDE RECORDS SUMMARY | 2024-11-17 14:29 | XMS_ITS | Encounter Summary ---
Author Organization [facility] Address [address] [place] [address] Phone Care Team Providers Care Editor Newspaper Name Role Phone Unknown, Notinfile Primary Care Provider Unavail able Dorota Martinez MD Primary Care Provider [phone] Andrei Clark MD Primary Care Provider [phone] Kandace Freedman OT Unavailable [phone] Christina Brunson MD Unavailable [phone] Encounter Details Date Type Department Care Team (Late st Contact Info) Description 02/07/[address] Ex[address] 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 Gender Identity Not on file Sexual Orientation Not on file documented as of this encounter Plan of Treatment Not on file documented as of this encounter Visit Diagnoses Not on filedocumented in this encounter Eye Exam Visual Acuity (near card) Right eye Left eye Near sc 20/25 20/25 Tonometry (Tonopen, 10:51 PM) Right eye Left eye Pressure 16 31 Squeezing, + stuart's Pupils Pupils Dark Light Shape React APD Right eye PERRL 5 3 Round Brisk None Left eye PERRL 5 3 Round Brisk None Visual Guerra Right eye Left eye Restrictions Partial outer superi or temporal, inferior temporal, superior nasal, inferior nasal deficiencies Partial outer superior temporal, inferior temporal, superior nasal, inferior nasal deficiencies Extraocular Movement Right eye Left eye Up gaze -- -- -- -- -- -- Right/left gaze -0.5 -- -- -- -- -0.5 Down gaze -- -- -- -- -- -- Horizontal diplopia in far right, far left, and far superior gaze Neuro/Psych Oriented x3: Yes Mood/Affect: Normal Dilation Both eyes: 1.0% Mydriacyl, 2 .5% Phenylephrine @ 10:52 PM Color Right eye Left eye Ishihara 08/31 08/31 Pt answered control plates quickly OU, took much more time with the test plates External Exam Right eye Left eye External Normal Normal Portable Slit Lamp Exam Right eye Left eye Lids/Lashes Normal Normal Conjunctiva/Sclera White and quiet White and pj et Cornea Clear Clear Anterior Chamber Deep and quiet Deep and quiet Iris Round and reactive Round and darren ctive Lens Clear Clear Vitreous Normal Normal Fundus Exam Right eye Left eye Disc no edema no edema C/D Ratio 0.3 0.2 Macula many MAs Many Mas, multip le white lesions (?CWS) along superior arcade with surrounding vascular changes Vessels copper wiring copper wiring Periphery no RT/RD/necrosis no RT/RD/necro sis Care Teams Editor Newspaper Relationship Specialty Start Date End Date Unknown, Notinfile PCP - General 02/04/19 02/10/19 Dorota Martinez MD [address] [place] [address] [address] [place] [address] PCP - General 02/11/19 12/10/20 Andrei Clark MD [address] [facility] 1 [place] [address] PCP - General Internal Medicine 12/11/20 Kandace Freedman OT [address] [place] [address] Occupational Therapist Occupational Therapy 03/15/21 Christina Brunson MD [address] [facility] [address] [place] [address] Obstetrics and Gynecology 08/02/22 documented as of this encounter
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
--- OUTSIDE RECORDS SUMMARY | 2024-11-17 14:35 | XMS_ITS ---
Author Organization [facility] Address [address] [place] [address] Care Team Providers Care Sports Instructor Name Role Phone Andrei Clark Primary Care Provider REASON FOR VISIT Trulicity Medications Medication SIG (Take, Route, Fr equency, Duration) Notes Start Date End Date Status Trulicity 4.5 MG/0.5ML INJECT 4.5 MG SUB CUTANEOUSLY ONCE A WEEK Active Social History Sex Assigned At : Social History Observation Description Sex Assigned At Female Encounters Encounter Location Date Provider Diagnosis [address] [place] [address] 06/19/2024 Andrei Clark Type 2 diabetes mellitus with hyperglycemia E11.65 Assessments Encounter Date Diagnosis (ICD Code) Assessment Notes Treatment Notes Treatment Clinical Notes Section Notes 06/19/2024 Type 2 diabetes mellitus with hyperglycemia (ICD-10 - E11.65) Plan Of Treatment Medication Medication Name Sig Start Date Stop Date Notes Trulicity 4.5 MG/0.5ML INJECT 4.5 MG SUB CUTANEOUSLY ONCE A WEEK Progress Notes * Kylee FIGUEROA RDOB:1985 (39 yo F)Acc No.[id number]:06/19/2024 Patient:?Kylee FIGUEROA :1985???Age:39 Y???Sex:Female Address:[address] [place], [address] * Refills? Refill Trulicity Solution Pen-injector, 4.5 MG/0.5ML, 1, INJECT 4.5 MG SUBCUTANEOUSLY ONCE A WEEK, Refills=0 * true * Date:? Generated for Lupis ruiz/Cayla/Bereitting on:?11/17/2024 02:35 PM SUPERVISOR SLITTING AND SHIPPING
--- OUTSIDE RECORDS SUMMARY | 2024-11-17 14:35 | XMS_ITS ---
Author Organization [facility] Address [address] [place] [address] Care Team Providers Care Cook Station Name Role Phone Andrei Clark Primary Care Provider [phone] REASON FOR VISIT Trulicity Medications Medication SIG (Take, Route, Fr equency, Duration) Notes Start Date End Date Status Trulicity 3 MG/0.5ML INJECT 3MG SUBCUTAN EOUSLY ONCE A WEEK for 28 Active Social History Sex Assigned At : Social History Observation Description Sex Assigned At Female Encounters Encounter Location Date Provider Diagnosis [address] [place] [address] 06/18/2024 Andrei Clark Type 2 diabetes mellitus with hyperglycemia E11.65 Assessments Encounter Date Diagnosis (ICD Code) Assessment Notes Treatment Notes Treatment Clinical Notes Section Notes 06/18/2024 Type 2 diabetes mellitus with hyperglycemia (ICD-10 - E11.65) Plan Of Treatment Medication Medication Name Sig Start Date Stop Date Notes Trulicity 3 MG/0.5ML INJECT 3MG SUBCUTAN EOUSLY ONCE A WEEK for 28 Progress Notes * Kylee FIGUEROA RDOB:1985 (39 yo F)Acc No.[id number]:06/18/2024 Patient:?Kylee FIGUEROA :1985???Age:39 Y???Sex:Female Address:[address] [place], [address] * Refills? Refill Trulicity Solution Pen-injector, 3 MG/0.5ML, 4 Milliliter, INJECT 3MG SUBCUTANEOUSLY ONCE A WEEK, 28, Refills=0 * true * Date:? Generated for Lupis ruiz/Cayla/Bereitting on:?11/17/2024 02:35 PM ANTENNA INSTALLER
--- OUTSIDE RECORDS SUMMARY | 2024-11-17 14:36 | XMS_ITS | CONTINUITY OF CARE DOCUMENT ---
Author Name padmini, padmini Address Unknown Organization [facility] Address [address] [place] [address] Phone [phone] Care Team Providers Care Deputy Commonwealth'S Attorney Name Role Phone Chitra RUEDA, Lucio Unavailable CHITRA RUEDA, MIGUEL Unavailable [phone] ABELINO RUEDA, FABIÁN Unavailable [phone] PROBLEMS Condition Status Date Provider Notes Migraine [...] Payer name Policy type / Coverage type [place] [employer] party ID [facility] [id number]
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
== END 2024-11-10 12:12 | disposition home or self-care (01) ==
PROVIDERS: Emergency Provider Nurse Practitioner Family; PCP Internal Medicine
DX: N39.0 Urinary tract infection, site not specified (principal); B96.20 Unspecified Escherichia coli [E. coli] as the cause of diseases classified elsewhere; E78.5 Hyperlipidemia, unspecified; I10 Essential (primary) hypertension; E11.9 Type 2 diabetes mellitus without complications; Z79.4 Long term (current) use of insulin; Z79.84 Long term (current) use of oral hypoglycemic drugs; K21.9 Gastro-esophageal reflux disease without esophagitis; M79.7 Fibromyalgia; Z87.891 Personal history of nicotine dependence; E28.2 Polycystic ovarian syndrome
CPT/HCPCS: 81003; 87077; 87086; 87186; 99213; G0463

== ENCOUNTER 2024-12-24 11:00 | Emergency (ER) | payer BC, SELFPAY ==
[2024-12-24] VITALS (7 sets, daily range): BP systolic 126–150; BP diastolic 76–94; PULSE 95–112; RESP 16–21; TEMP 36.7; O2SAT 96–100
--- NOTE | ~2024-12-24 | XR_ITS ---
EXAMINATION: XR chest 2V DATE: 12/24/2024 12:49 INDICATION: Chest pain. TECHNIQUE: Frontal and lateral views of the chest were obtained. COMPARISON: Chest single view 10/13/2020 FINDINGS: There is no pneumonia, pleural effusion, or pneumothorax. The heart is normal. Surgical cli ps in the right upper quadrant are likely from cholecystectomy. There is mild chronic anterior wedgin g of vertebral bodies at thoracolumbar junction. IMPRESSION: 1. No acute cardiopulmonary disease. Reviewed, dictated and finalized at location A. ALLER SOFT TOP
--- NOTE | ~2024-12-24 | CT_ITS ---
EXAMINATION: CTA chest PE protocol DATE: 12/24/2024 15:47 INDICATION: Left chest pain. TECHNIQUE: Computed tomography angiography (CTA) of the chest was performed with 100 mL Omnipaque-350 intravenous contrast timed to evaluate the pulmonary arteries. Coronal maximum intensity projection 3D-reconstructions were created by the technologist. Automated exposure control and iterative reconst ruction technique were employed. The dose-length product was 881.92 mGy-cm. COMPARISON: Chest CT 10/08/2023 FINDINGS: The lungs demonstrate minimal atelectasis. No pleural effusion. The heart size is normal. T here are coronary artery calcifications. There is a small pericardial effusion. There is no pulmonary embolus. There is a small sliding hiatal hernia. There are changes of cholecystectomy. There is sariah ical thinning of the kidneys. There are cysts in the kidneys measuring up to 3.2 cm on the right. The re is mild thoracic spondylosis. IMPRESSION: 1. No pulmonary embolus. 2. Small pericardial effusion. 3. Small sliding hiatal hernia. Reviewed, dictated and finalized at location A. D SALES ASSOCIATE
--- NOTE | 2024-12-24 11:02 | ECG_ITS ---
Test Date: 2024-12-24 11:32:35 Measurements Intervals [place] Rate: 99 P: 40 DC: 168 QRS: 23 QRSD: 89 T: 89 QT: 344 QTc: 442 Interpretive Statements SINUS RHYTHM POSSIBLE LEFT ATRIAL ENLARGEMENT POSSIBLE RIGHT VENTRICULAR CONDUCTION DELAY MINIMAL Q WAVES- DIFFUSE LEADS BORDERLINE ST-T WAVE ABNORMALITY- HIGH LATERAL LEADS BASELINE ARTIFACT- I, III, AVR, AVL BORDERLINE ECG No previous ECG available for comparison Electronically Signed On 12-24-2024 11:34:26 GREEN PRIZE PACKER by Ar Valle D.O.
--- OUTSIDE RECORDS SUMMARY | 2024-12-24 11:38 | XMS_ITS | Encounter Summary ---
Author Organization [facility] Address [address] [place] [address] Phone Care Team Providers Care Biostatistics Professor Name Role Phone Unknown, Notinfile Primary Care Provider Unavail able Dorota Martinez MD Primary Care Provider [phone] Andrei Clark MD Primary Care Provider [phone] Kandace Freedman OT Unavailable [phone] Christina Brunson MD Unavailable [phone] Encounter Details Date Type Department Care Team (Late st Contact Info) Description 02/07/2019 Ophth Exam [facility] Ophthalmology [address] [place] [address] [address] [place] [id number] Diana Leon MD PhD [address] [place] [address] Social History Tobacco Use Types Packs/Day Years [...] on file 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 Gender Identity Not on file [...] no RT/RD/necrosis no RT/RD/necro sis Care Teams Biostatistics Professor Relationship Specialty Start Date End Date Unknown, Notinfile PCP - General 02/04/19 02/10/19 Dorota Martinez MD [address] [place] [address] 1 [place] [address] PCP - General 02/11/19 12/10/20 Andrei Clark MD [address] [facility] 1 [place] [address] PCP - General Internal Medicine 12/11/20 Kandace Freedman OT [address] [place] [address] Occupational Therapist Occupational Therapy 03/15/21 Christina Brunson MD [address] [facility] [address] [place] [address] Obstetrics and Gynecology 08/02/22 documented as of this encounter
--- OUTSIDE RECORDS SUMMARY | 2024-12-24 11:38 | XMS_ITS | CONTINUITY OF CARE DOCUMENT ---
Author Name padmini, padmini Address Unknown Organization [facility] Address [address] [facility] [address] [place] [address] Phone [phone] Care Team Providers Care Hotel Baggage Handler Name Role Phone Chitra RUEDA, Lucio Unavailable CHITRA RUEDA, MIGUEL Unavailable ABELINO RUEDA, FABIÁN Unavailable [phone] PROBLEMS Condition Status Date Provider Notes Migraine [...] Payer name Policy type / Coverage type Garnett red constitution party ID [facility] [id number]
--- OUTSIDE RECORDS SUMMARY | 2024-12-24 11:38 | XMS_ITS | Referral Summary ---
Author Organization [facility] [address] Address [address] [place] [address] Care Team Providers Care Trigonometry Teacher Name Role Phone Andrei Clark MD Primary Care Provider [phone] Kandace Freedman OT Unavailable [phone] Christina Brunson MD Unavailable [phone] Allergies Active Allergy Reactions Criticality Noted Date [...] mellitus 03/31/2022 Atherosclerotic heart diseas e of [place] coronary artery without angina pectoris 12/31/2020 Unspecified [...] this with Dr. Pérez. Recs: 1. [facility] (she understands she needs to be the one to call) for CBT for FND, anxiety, depression. 2. Consider Valium after I discuss with Dr. Pérez. 3. Continue with psychiatry. 4. Start positive self talk and meditative exercises for spells . 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 73 [...] last reviewed 2021. Blood 10/17/2022 5:08 PM ACQUISITION ANALYST 10/17/2022 5:58 PM ACQUISITION ANALYST us Premal Elia Jackson MD LAB BLOOD ORDERABLES Fin al Result LUCIEN SAM [facility] Department [place] [address] * (ABNORMAL) Hemoglobin A1c (08/23/2019 5:28 PM [...] children were not included. ?? (Diabetes Care 31:3457-3659, 2008). ??The eAG is not equivalent to a fasting glucose. Blood specimen (specimen) 08/23/2019 5:28 PM CDT 08/23/2019 6:04 PM CDT us Notinfile Unknown LAB BLOOD ORDERABLES Final Res ult [facility] 1 [place] [address] from Last 3 Months or Most Recently Relevant to Health Maintenance Insurance [employer] [facility] [employer] Advance Directives For more information, please contact: [phone] * Full Code (Latest Code Status on File) Date Activated Date Inactivated Comments 01/25/2021 9:49 AM 01/31/2021 8:38 PM * Full Code Date Activated Date Inactivated Comments 02/11/2019 4:38 PM 02/13/2019 11:05 AM Care Teams Trigonometry Teacher Relationship Specialty Start Date End Date Andrei Clark MD PCP - General Internal Medicine 12/11/20 Kandace Freedman OT [address] [place] [address] Occupational Therapist Occupational Therapy 03/15/21 Christina Brunson MD [address] [facility] [address] [place] [address] Obstetrics and Gynecology 08/02/22
--- OUTSIDE RECORDS SUMMARY | 2024-12-24 11:38 | XMS_ITS | Clinical Summary ---
Author Organization [facility] [address] Address [address] [place] [address] Care Team Providers Care Unpaid Intern Name Role Phone Andrei Clark MD Primary Care Provider [phone] Kandace Freedman OT Unavailable [phone] Christina Brunson MD Unavailable [phone] Allergies Active Allergy Reactions Criticality Noted Date [...] mellitus 03/31/2022 Atherosclerotic heart diseas e of [place] coronary artery without angina pectoris 12/31/2020 Unspecified [...] this with Dr. Pérez. Recs: 1. [facility] (she understands she needs to be the one to call) for CBT for FND, anxiety, depression. 2. Consider Valium after I discuss with Dr. Pérez. 3. Continue with psychiatry. 4. Start positive self talk and meditative exercises for spells . 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): She has abnormal involuntary movements including vocalizations, [...] video EEG (scheduled for next month at [facility]) to clarify whether any aspect of [...] complication, without long-term current use of insulin ([facility]) 04/04/2017 Polycystic ovaries 04/04/2017 Hypertensive chronic kidney [...] Polycystic ovarian disease DVT (deep venous thrombosis) ([facility]) (HCC) Idiopathic intracranial hypertension Polycystic kidney disease [...] on file Legal Sex Female 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 73 [...] last reviewed 2021. Blood 10/17/2022 5:08 PM IMMUNOLOGY TEACHER 10/17/2022 5:58 PM IMMUNOLOGY TEACHER us Premal Elia Jackson MD LAB BLOOD ORDERABLES Fin al Result LUCIEN SAM [facility] Department [place] [address] * (ABNORMAL) Hemoglobin A1c (08/23/2019 5:28 PM [...] children were not included. ?? (Diabetes Care 31:7946-2319, 2008). ??The eAG is not equivalent to a fasting glucose. Blood specimen (specimen) 08/23/2019 5:28 PM CDT 08/23/2019 6:04 PM CDT us Notinfile Unknown LAB BLOOD ORDERABLES Final Res ult [facility] 1 [place] [address] from Last 3 Months or Most Recently Relevant to Health Maintenance Insurance [employer] [facility] Advance Directives For more information, please contact: [phone] * Full Code (Latest Code Status on File) Date Activated Date Inactivated Comments 01/25/2021 9:49 AM 01/31/2021 8:38 PM * Full Code Date Activated Date Inactivated Comments 02/11/2019 4:38 PM 02/13/2019 11:05 AM Care Teams Unpaid Intern Relationship Specialty Start Date End Date Andrei Clark MD PCP - General Internal Medicine 12/11/20 Kandace Freedman OT [address] [place] [address] Occupational Therapist Occupational Therapy 03/15/21 Christina Brunson MD [address] [facility] [address] [place] [address] Obstetrics and Gynecology 08/02/22
--- OUTSIDE RECORDS SUMMARY | 2024-12-24 11:38 | XMS_ITS | Referral Summary ---
Author Organization [facility] Address [address] [place] [address] Care Team Providers Care Clinical Rn Liaison Name Role Phone Azam Jackson APRN-TOBACCO PACKING MACHINE OPERATOR Primary Care Provide r Source Comments [facility],non-owned Affiliates and Associated Physician Practices is amultiple site organization consisting of ambulatory clinics and hospital sitesin [place], [place], [place] and [place]. This disclosure is being madepursuant to the Care Everywhere program and may not contain all information available regarding this patient. Last updated 18.[facility] Allergies Active Allergy Reactions Criticality Noted Date [...] Gluc Sensor (FREESTYLE AYDEE 14 DAY SENSOR) [facility] 12/29/2020 Active FARXIGA 10 MG tablet TAKE 1 TABLET BY MOUTH ONCE DAILY IN THE MORNING FOR 90 DAYS 07/23/2021 Active TRULICITY 3 MG/0.5ML injection INJECT 1 SUB Q ONCE A WEEK IN THE MORNING 07/23/2021 Active ergocalciferol (DRISDOL) 1.25 MG (08951 UT) capsule Vitamin D2 1,250 mcg (50,000 [...] ST Respiratory Rate 17 11/28/2020 10:01 PM DISCHARGE PLANNER Oxygen Saturation 100% 08/11/2021 12:49 PM CDT Inhaled Oxygen Concentration - - Weight 89.4 kg (197 lb) 08/11/2021 12:49 PM CDT Height 162.6 cm (5' 4 ) 08/11/2021 12:49 PM CDT Body Mass Index 33.81 08/11/2021 12:49 PM CDT Plan of Treatment Upcoming Encounters Date Type Department Care Team (Late st Contact Info) Description 12/27/2024 1:00 PM DISCHARGE PLANNER Office Visit [facility] Weight Management Services [id number] [place] [address] [address] [place] [address] [place] [address] [facility] [address] [place] [address] Procedures Procedure Name Priority Date/Time [...] OF CAR E ORDERABLES Performing Organization Address City/State/[facility] Co de Phone Number [facility] [address] [phone] from Last 3 Months or Most Recently Relevant to Health Maintenance Care Teams Clinical Rn Liaison Relationship Specialty Start Date End Date Azam Jackson APRN-TOBACCO PACKING MACHINE OPERATOR [address] [address] [place] [address] PCP - General Nurse Practitioner Gerontology 11/28/20
--- OUTSIDE RECORDS SUMMARY | 2024-12-24 11:38 | XMS_ITS | Patient Health Summary ---
Author Organization [facility] Address [address] [place] [address] Care Team Providers Care Inspector Shells Name Role Phone Azam Jackson APRN-LOCKSTITCH MACHINE OPERATOR Primary Care Provide r Note from [facility],non-owned Affiliates and Associated Physician Practices is amultiple site organization consisting of ambulatory clinics and hospital sitesin [place], [place], [place] and [place]. This disclosure is being madepursuant to the Care Everywhere program and may not contain all information available regarding this patient. Last updated 18.[facility] Allergies * Prochlorperazine * Ondansetron * Promethazine(Other) [...] THE MORNING * ergocalciferol (DRISDOL) 1.25 MG (08433 UT) capsule Vitamin D2 1,250 mcg (50,000 unit) capsule * fenofibrate (LOFIBRA) 160 MG tablet(Started 05/20/2021) TAKE 1 TABLET BY MOUTH ONCE DAILY AT BEDTIME FOR 30 DAYS * fluticasone propionate (FLONASE) 50 MCG/ACT nasal spray fluticasone propionate 50 mcg/actuation nasal spray,suspension * glimepiride (AMARYL) 1 MG tablet(Started 02/14/2021) TAKE 2 TABLETS BY MOUTH TWICE DAILY BEFORE MEAL(S) * SCVNGRTOUCH ULTRA test strip(Started 2021) USE A TEST [...] ST Respiratory Rate 17 11/28/2020 10:01 PM TICK [facility] Oxygen Saturation 100% 08/11/2021 12:49 PM CDT [...] OF CAR E ORDERABLES Performing Organization Address City/[facility]/ZIP Co de Phone Number [facility] POCT TESTING [address] [place] [address] * PROLACTIN (11/28/2020 6:50 PM TICK SEWER) [facility] Prolactin 4.4 2.8 - 26.0 ng/mL 12/01/2020 3:19 PM [facility] [employer] ([facility]) Comment: REFERENCE INTERVAL: Prolactin Access complete set of age- and/or gender-specific reference intervals for this test in the [facility] Test Directory ([employer]). Performed By: [employer] [address] [place] [address] [employer] Set Up Operator Radial: Geraldine Mehta MD Blood BLOOD SPECIMEN / Unknown Venipuncture / Unknown 11/28/2020 6:50 PM [facility]ICK SE[facility]ER 11/28/2020 6:15 PM [facility] Tomy Jeffrey MD LAB - CHEMISTRY ORDE LLUVIA Performing Organization Address City/[facility] Co de Phone Number [facility]) [address] [place] [address] * (ABNORMAL) CBC W AUTO DIFFERENTIAL (11/28/2020 6:50 PM TICK SEWER) Only the most recent of3 resultswithin the time period is included. [facility] WBC 11.4(H) 3.5 - 10.5 10? 3 /uL 11/28/2020 7:[address] [facility] RBC 4.22 3.90 - 5.00 10? 6 /uL 11/28/2020 7:02 PM TICK SEW[facility] Hemoglobin 11.8(L) 12.0 - 15.5 g/dL 11/28/2020 7:02 PM TICK SEWER [facility] Hematocrit 35.7 35.0 - 45.0 % 11/28/2020 7:02 PM [facility] MCV 84.6 81.0 - 97.0 fL 11/28/2020 7:02 PM [facility] MCH 28.0 28.0 - 34.0 pg 11/28/2020 7:02 PM [facility] MCHC 33.1 32.0 - 36.0 g/dL 11/28/2020 7:02 PM [facility] Platelet Count 314 150 - 400 10? 3 /uL 11/28/2020 7:02 PM [facility] RDW-SD 42.0 36.0 - 50.0 fL 11/28/2020 7:02 PM [facility] RDW-CV 13.8 11.2 - 14.8 % 11/28/2020 7:02 PM [facility] MPV 8.2(L) 9.3 - 12.8 fL 11/28/2020 7:02 PM [facility] nRBC Absolute 0.00 0 10? 3 /uL 11/28/2020 7:02 PM [facility] nRBC Auto 0.0 0 /100 WBC 11/28/2020 7:02 PM [facility] Neutrophils % 60.7 35.0 - 70.0 % 11/28/2020 7:02 PM [facility] Lymphocytes % 30.8 19.7 - 55.1 % 11/28/2020 7:02 PM [facility] Monocytes % 5.4 3.0 - 15.0 % 11/28/2020 7:02 PM [facility] Eosinophils % 2.2 0.0 - 6.0 % 11/28/2020 7:02 PM [facility] Basophil % 0.4 0.0 - 1.5 % 11/28/2020 7:02 PM [facility] Neutrophils Absolute 6.9 1.6 - 7.0 10? 3 /uL 11/28/2020 7:02 PM [facility] Lymphocyte Absolute 3.5(H) 0.8 - 2.9 10? 3 /uL 11/28/2020 7:02 PM [facility] Monocytes Absolute 0.62 0.14 - 0.66 10? 3 /uL 11/28/2020 7:02 PM [facility] Eosinophils Absolute 0.25 0.00 - 0.45 10? 3 /uL 11/28/2020 7:02 PM [facility] Basophils Absolute 0.04 0.00 - 0.06 10? 3 /uL 11/28/2020 7:02 PM [facility] Immature Granulocytes % 0.5 0.0 - 1.0 % 11/28/2020 7:02 PM [facility] Blood BLOOD SPECIMEN / Unknown Venipuncture / Unknown 11/28/2020 6:50 PM [facility] 11/28/2020 6:15 PM [facility] Tomy Jeffrey MD LAB - HEMATOLOGY ORD ERABLES [facility] [address] [place] [address], [facility] [phone] * (ABNORMAL) BLOOD GASES SAURABH (11/28/2020 6:50 PM TICK SEWER) pH Mixed Venous 7.42(H) 7.30 - 7.40 11/28/2020 6:59 PM [facility] pCO2 Mixed Venous 39(L) 40 - 46 mmHg 11/28/2020 6:59 PM [facility] pO2 Mixed Venous 20(L) 35 - 42 mmHg 11/28/2020 6:59 PM [facility] HCO3 Mixed Venous 25.1 22.0 - 26.0 mmol/L 11/28/2020 6:59 PM [facility] TCO2 Mixed Venous 26.3 25.0 - 29.0 mmol/L 11/28/2020 6:59 PM [facility] Base Excess Venous 0.7 -2.0 - 2.0 mmol/L 11/28/2020 6:59 PM [facility] Hemoglobin Mixed Venous 11.2(L) 12.0 - 15.5 g/dL 11/28/2020 6:59 PM [facility] Oxyhemoglobin Mixed Venous 31.5(L) 66.0 - 77.0 % 11/28/2020 6:59 PM [facility] Carboxyhemoglobin Venous 0.3 0.0 - 3.0 % 11/28/2020 6:59 PM [facility] Methemoglobin 1.4 0.0 - 2.0 % 11/28/2020 6:59 PM [facility] FI O2 Mixed Venous 21.0 % 2020 6:59 PM [facility] Blood BLOOD SPECIMEN / Unknown Venipuncture / Unknown 11/28/2020 6:50 PM [facility]ER 11/28/2020 6:54 PM [facility] Tomy Jeffrey MD LAB - BLOOD GASES OR DERABLES [facility] [address] [place] [address], [facility] [phone] * (ABNORMAL) COMPREHENSIVE METABOLIC PANEL (11/28/2020 6:50 PM TICK SEWER) Only the most recent of3 resultswithin the time period is included. BUN 17 7 - 26 mg/dL 11/28/2020 7:23 PM [facility] Creatinine 0.7 0.6 - 1.2 mg/dL 11/28/2020 7:23 PM [facility] Sodium 137 136 - 145 mmol/L 11/28/2020 7:23 PM [facility] Potassium 3.8 3.5 - 4.5 mmol/L 11/28/2020 7:23 PM [facility] Chloride 99 98 - 107 mmol/L 11/28/2020 7:23 PM [facility] CO2 22 22 - 29 mmol/L 11/28/2020 7:23 PM [facility] Glucose 85 70 - 115 mg/dL 11/28/2020 7:23 PM [facility] Calcium 9.8 8.4 - 10.2 mg/dL 11/28/2020 7:23 PM [facility] Protein Total 8.1 6.0 - 8.3 g/dL 11/28/2020 7:23 PM [facility] Albumin 3.8 3.4 - 5.0 g/dL 11/28/2020 7:23 PM [facility] Bilirubin Total 0.3 0.2 - 1.2 mg/dL 11/28/2020 7:23 PM [facility] Alkaline Phosphatase 74 40 - 150 Units/L 11/28/2020 7:23 PM [facility] ALT 28 0 - 55 Units/L 11/28/2020 7:23 PM [facility] AST 26 5 - 34 Units/L 11/28/2020 7:23 PM [facility] Anion Gap 20(H) 8 - 18 11/28/2020 7:23 PM [facility] BUN/Creatinine Ratio 24(H) 7 - 23 11/28/2020 7:23 PM [facility] Osmolality Calculated 285 270 - 300 mOsm/kg 11/28/2020 7:23 PM [facility] Albumin/Globulin Ratio 0.9(L) 1.1 - 2.3 11/28/2020 7:23 PM [facility] eGFR >60 >60 mL/min/1.7 3 m2 11/28/2020 7:23 PM [facility] Blood BLOOD SPECIMEN / Unknown Venipuncture / Unknown 11/28/2020 6:50 PM [facility]ER 11/28/2020 6:15 PM [facility] Tomy Jeffrey MD LAB - CHEMISTRY [facility] Organization Address City/State/ZIP Co de Phone Number [facility] [address] [place] [phone], [facility] [phone] * HCG BETA BLOOD QUANTITATIVE (11/28/2020 6:50 PM [facility]) Beta-hCG Total Quantitative <3 <5 mIU/mL 11/28/2020 7:39 PM [facility] Comment: This assay is cleared for use [...] Unknown Venipuncture / Unknown 11/28/2020 6:50 PM [facility]ER 11/28/2020 6:15 PM [facility] Tomy Jeffrey MD LAB - CHEMISTRY MARCEL TEIXEIRA Performing Organization Address City/[facility]/ZIP Co de Phone Number [address] [address], [place] [phone] * PHOSPHORUS BLOOD (11/28/2020 6:50 PM TICK SEWER) Phosphorus 3.7 2.3 - 4.7 mg/dL 11/28/2020 7:23 PM T[facility] SE[facility] Blood BLOOD SPECIMEN / Unknown Venipuncture / Unknown 11/28/2020 6:50 PM T[facility]ER 11/28/2020 6:15 PM [facility] Tomy Jeffrey MD LAB - CHEMISTRY MARCEL TEIXEIRA Performing Organization Address [facility]/ZIP Co de Phone Number [address] [address], [facility] [phone] * MAGNESIUM BLOOD (11/28/2020 6:50 PM TICK SEWER) Magnesium 1.9 1.6 - 2.6 mg/dL 11/28/2020 7:23 PM TICK SEW[facility] Blood BLOOD SPECIMEN / Unknown Venipuncture / Unknown 11/28/2020 6:50 PM T[facility] SE[facility]ER 11/28/2020 6:15 PM [facility] Tomy Jeffrey MD LAB - CHEMISTRY MARCEL TEIXEIRA [address] [address], [place] [phone] * ALCOHOL ETHYL BLOOD (11/28/2020 6:50 PM TICK SEWER) Interpretation Ethanol None Detected None Detected mg/dL 11/28/2020 7:23 PM TICK SEW[facility] Comment:Ethanol levels less than 10 mg/dL are resulted as None detected . Blood BLOOD SPECIMEN / Unknown Venipuncture / Unknown 11/28/2020 6:50 PM [facility]ER 11/28/2020 6:15 PM [facility] Tomy Jeffrey MD LAB - CHEMISTRY MARCEL TEIXEIRA [address] [address], [place] [phone] * TSH (11/28/2020 6:50 PM TICK SEWER) TSH 1.087 0.350 - 4.940 uIU/mL 11/28/2020 7:39 PM TICK SEW[facility] Blood BLOOD SPECIMEN / Unknown Venipuncture / Unknown 11/28/2020 6:50 PM T[facility] SEWER 11/28/2020 6:15 PM T[facility] Tomy Jeffrey MD LAB - CHEMISTRY MARCEL TEIXEIRA Performing Organization Address City/[facility]/ZIP Co de Phone Number [address] [address], [place] [phone] * ACETAMINOPHEN LEVEL (11/28/2020 6:50 PM TICK SEWER) Pathologist [facility] Acetaminophen <3.0 <30.0 mcg/mL 11/28/2020 7:23 PM TICK SEW[facility] Blood BLOOD SPECIMEN / Unknown Venipuncture / Unknown 11/28/2020 6:50 PM [facility]ER 11/28/2020 6:15 PM [facility] Tomy Jeffrey MD LAB - CHEMISTRY MARCEL TEIXEIRA [address] [address], [place] [phone] * GLUCOSE - POINT OF CARE (11/28/2020 6:44 PM TICK [facility]ER) Only the most recent of2 resultswithin the time period is included. Glucose WB/POC 86 70 - 115 mg/dL 11/28/2020 6:54 PM TICK SEW[facility] Specimen Type Arterial/C apillary 11/28/2020 6:54 PM TICK SEWER [facility] Blood BLOOD SPECIMEN / Unknown 11/28/2020 6:44 PM TICK SEWER 11/28/2020 6:54 PM [facility] Dario Aponte MD LAB - POINT OF CARE ORDERABLES [facility] [address] [place] [address], [facility] [phone] * CT HEAD WO CONTRAST (11/28/2020 4:30 PM TICK SEWER) Anatomical Region Laterality Modality Head Computed Tomogra phy 11/28/2020 4:59 PM [facility]ER Impressions 11/29/2020 8:52 AM [facility] IMPRESSION: Normal examination of the brain. No acute intracranial hemorrhage, midline shift, or significant mass effect. Dictated by Anibal Sky MD (Back Pad Inspector) I, Dr. AJAY BAJWA have personally reviewed and interpreted this examination/study. This report was electronically signed by AJAY BAJWA ??on 11/29/2020 8:52 AM . Narrative 11/29/2020 8:[address] HEAD WITHOUT CONTRAST, 11/28/2020 4:30 PM [...] mass effect. Dictated by Anibal Sky MD (Back Pad Inspector) I, Dr. AJAY BAJWA have personally reviewed [...] further evaluation. Left message with the ED assistant corporate secretary that the prelim is available in [employer]. Dictated by Sergio Navas MD (radiology nurse). This report was approved ??by Serigo Navas ?? on 02/28/2017 11:28 AM . [...] for furtherevaluation. Left message with the ED assistant corporate secretary that the prelim is available inSynapse. Dictated by Sergio Navas MD (radiology nurse). This report was approved by Sergio Navas [...] pulmonary process. Dictated by Chin Aguilera MD (radiology nurse). This report was approved ??by Chin Aguilera [...] pulmonary process. Dictated by Chin Aguilera MD (radiology nurse). This report was approved by Chin Aguilera M.D. on 02/28/2017 9:[address] CHAYITO Sanderson M.D. have personally reviewed and interpreted thisexamination/study. This report was electronically signed by CHAYITO MCPHERSON M.D. on 02/28/20179:28 AM . Charisse Leyva MD DIAGNOSTIC IMAGING O RDERABLES * HCG URINE QUALITATIVE - POCT (IP) [facility] (02/28/2017 12:35 AM CDT) Test Urine negative [facility] Urine specimen (specimen) 02/28/2017 12:35 AM CDT Charisse Leyva MD LAB - POINT OF CARE ORDERABLES [facility] * (ABNORMAL) URINALYSIS W/MICROSCOPIC NO CULTURE (02/28/2017 12:33 AM CDT) Color UA Yellow Straw, Yellow, Colorless, Light Yellow [facility] Clarity UA Clear Clear [facility] Specific [place] UA 1.030 1.001 - 1.030 [facility] pH UA 5.5 5.0 - 8.0 [facility] Protein UA 20 <=20 mg/dL [facility] Glucose UA >1000(A) Negative mg/dL [facility] Ketone UA Trace(A) Negative mg/dL [facility] Bilirubin UA Negative Negative mg/dL [facility] Blood UA Negative Negative [facility] Nitrite UA Negative Negative [facility] Leukocyte Esterase Negative Negative [facility] Urobilinogen UA <2.0 <2.0 mg/dL [facility] RBC UA 4 0 - 8 /HPF [facility] WBC UA 1 0 - 2 /HPF [facility] Squamous Epithelial Cells UA 7(H) 0 - 1 /HPF [facility] Mucus UA Rare(A) None /LPF [facility] Urine specimen (specimen) 02/28/2017 12:33 AM CDT 02/28/2017 12:53 AM CDT Charisse Leyva MD LAB - URINALYSIS ORD ERABLES [address] [phone] * LIPASE BLOOD (02/28/2017 12:29 AM CDT) Lipase 38 8 - 78 Units/L [facility] Blood specimen (specimen) BLOOD SPECIMEN / Unknown 02/28/2017 12:29 AM CDT 02/28/2017 12:52 AM CDT Charisse Leyva MD LAB - CHEMISTRY ORDE RABLES [address] [phone] * (ABNORMAL) CBC W/O DIFFERENTIAL (02/28/2017 12:29 AM CDT) WBC 7.8 3.5 - 10.5 10? 3 /uL [facility] RBC 4.33 3.90 - 5.00 10? 6 /uL [facility] Hemoglobin 11.6(L) 12.0 - 15.5 g/dL [facility] Hematocrit 35.4 35.0 - 45.0 % [facility] MCV 81.8 81.0 - 97.0 fL [facility] MCH 26.8(L) 28.0 - 34.0 pg [facility] MCHC 32.8 32.0 - 36.0 g/dL [facility] Platelet Count 250 150 - 400 10? 3 /uL [facility] RDW-SD 41.6 36.0 - 50.0 fL [facility] RDW-CV 13.9 11.2 - 14.8 % [facility] MPV 9.0(L) 9.3 - 12.8 fL [facility] nRBC Absolute 0.00 0 10? 3 /uL [facility] nRBC Auto 0.0 0 /100 WBC [facility] Blood specimen (specimen) BLOOD SPECIMEN / Unknown 02/28/2017 12:29 AM CDT 02/28/2017 12:52 AM CDT Charisse Leyva MD LAB - HEMATOLOGY ORD ERABLES [facility] [address] [place] [address] * D-DIMER (02/28/2017 12:29 AM CDT) D-Dimer Quantitative <0.27 <=0.50 mcg/mL FEU [facility] Comment: In the absence of clinical [...] - COAGULATION OR DERABLES Performing Organization Address [facility] Phone Number [facility] [address] [phone] * EKG 12-LEAD (02/27/2017 12:00 AM CDT) EKG [facility] RADI[facility] Comment: Exam Date/Time: ?? Feb 27 [...] available Confirmed by MD Pao, Hanane ([id number]), publication editor CHRISTINA HASSAN ([id number]) on 03/06/2017 7:00:51 PM Referred By: REFERRING NO ? Confirmed By:Hanane Cedeno MD 02/27/2017 Charisse Leyva MD ECG ORDERABLES [facility] RAD[facility] * HCG URINE QUALITATIVE - POINT OF CARE (IP) (08/14/2014 2:11 AM CDT) Only the most recent of2 resultswithin the time period is included. HCG Qual Urine Negative Negative [facility] POCT TESTING QC Verified Yes Yes [facility] POC T TESTING Urine specimen (specimen) URINE / Unknown 08/14/2014 2:11 AM CDT Paco Gore MD LAB - POINT OF CARE ORDERABLES Performing Organization Address City/[facility]/ZIP Co de Phone Number [facility] POCT TESTING [address] [place] [address], [facility] * (ABNORMAL) URINALYSIS ROUTINE W/REFLEX TO CULTURE (08/14/2014 2:10 AM CDT) Only the most recent of2 resultswithin the time period is included. Color UA Yellow Straw, Yellow, Dark Yellow 08/14/2014 2:25 AM CDT [facility] Clarity UA Clear 08/14/2014 2:25 AM T [facility] Specific [place] UA 1.015 1.005 - 1.030 08/14/2014 2:25 AM T [facility] pH UA 6.0 5.0 - 8.0 pH 08/14/2014 2:25 AM [facility] Protein UA Trace(A) Negative 08/14/2014 2:25 AM T [facility] Blood UA Trace(A) Negative 08/14/2014 2:25 AM T [facility] Leukocyte UA Negative Negative 08/14/2014 2:25 AM T [facility] Nitrite UA Negative Negative 08/14/2014 2:25 AM T [facility] Glucose UA 3+(A) Negative 08/14/2014 2:25 AM CDT [facility] Ketone UA Negative Negative 08/14/2014 2:25 AM [facility] Bilirubin UA Negative Negative 08/14/2014 2:25 AM T [facility] Urobilinogen UA 0.2 0.1 - 1.0 EU/dL 08/14/2014 2:25 AM T [facility] WBC UA Auto 5-10(A) 0-2, 2-5 #/hpf 08/14/2014 2:25 AM CDT [facility] RBC UA Auto 0-2 0-2, 2-5 #/hpf 08/14/2014 2:25 AM CDT [facility] Epithelial Cell UA Auto 2-5 0-2, 2-5 #/hpf 08/14/2014 2:25 AM CDT [facility] Urine Microscopy Urine microscopy not indicated 08/14/2014 2:25 AM CDT [facility] Reflex Status Culture not indicated 08/14/2014 2:25 AM CDT [facility] Urine URINE SPECIMEN OBTAINED BY CLEAN CATCH PROCEDURE / Unknown 08/14/2014 2:10 AM CDT 08/14/2014 2:16 AM CDT Paco Gore MD LAB - URINALYSIS ORD ERABLES Performing Organization Address [facility]/ZIP Co de Phone Number [facility] [address] [place] [address] * HCG BLOOD QUALITATIVE (10/21/2013 1:03 PM TICK [facility]ER) HCG Qual Serum Negative Negative 10/21/2013 1:31 PM TICK SEWER [facility] Blood BLOOD SPECIMEN / Unknown Venipuncture / Unknown 10/21/2013 1:03 PM [facility]ER 10/21/2013 1:19 PM [facility] Narrative [facility] - 10/21/2013 1:31 PM T[facility]ER Specimens containing heterophilic antibodies may demonstrate false positive results. ??Specimens containing human anti-mouse antibodies may exhibit false positive or false negative results. If qualitative interpretation is inconsistant with clinical evaluation, consider confirmation by an alternative HCG method. Boy Alfonso MD LAB - CHEMISTRY ORDE LLUVIA Performing Organization Address City/[facility]/ZIP Co de Phone Number [facility] [address] [place] [address] * Stone Protocol CT (10/21/2013 1:02 PM TICK [facility]ER) Anatomical Region Laterality Modality Abdomen, Pelvis Computed Tomogra phy 10/21/2013 1:35 PM [facility] Impressions 10/21/2013 1:39 PM [facility] No obstruction or definite urinary stone seen at this time. A 1.3 CM cyst is suspected in the left ovary. Narrative 10/21/2013 1:39 PM [facility] Examination: Noncontrast Abdomen and Pelvic CT Indication: [...] or syntax problems by a trained medical appointment clerk. For questions about the report, please contact [...] or syntax problems by a trained medical appointment clerk. For questions about the report, please contact the Radiology Department. IMPRESSION No obstruction or definite urinary stone seen at this time. A 1.3 CM cyst is suspected in the left ovary. Boy Alfonso MD CT ORDERABLES * (ABNORMAL) BASIC METABOLIC PANEL (CALCIUM TOTAL) (10/21/2013 12:46 PM TICK [facility]WER) Glucose 147(H) 74 - 106 mg/dL 10/21/2013 1:10 PM [facility] Sodium 139 136 - 145 mmol/L 10/21/2013 1:10 PM [facility] Potassium 3.9 3.5 - 5.1 mmol/L 10/21/2013 1:10 PM [facility] Chloride 105 98 - 107 mmol/L 10/21/2013 1:10 PM [facility] CO2 26 22 - 31 mmol/L 10/21/2013 1:10 PM [facility] Calcium 9.1 8.5 - 10.1 mg/dL 10/21/2013 1:10 PM [facility] Anion Gap 8 5 - 15 mmol/L 10/21/2013 1:10 PM [facility] BUN 17 7 - 21 mg/dL 10/21/2013 1:10 PM [facility] Creatinine 0.44(L) 0.50 - 1.30 mg/dL 10/21/2013 1:10 PM [facility] eGFR by MDRD >60 >60 mL/min/1.7 3m2 10/21/2013 1:10 PM [facility] eGFR by MDRD >60 >60 mL/min/1.7 3m2 10/21/2013 1:10 PM [facility] Blood BLOOD SPECIMEN / Unknown Venipuncture / Unknown 10/21/2013 12:46 PM TICK [facility]ER 10/21/2013 12:56 PM TICK [facility]ER Boy Alfonso MD LAB - CHEMISTRY MARCEL TEIXEIRA [facility] Organization Address City/State/ZIP Co de Phone Number [facility] [address] [address] * (ABNORMAL) URINALYSIS ROUTINE AUTO (10/21/2013 11:44 AM TICK SEWER) Color UA Yellow Straw, Yellow, Dark Yellow 10/21/2013 11:56 AM [facility] Clarity UA Cloudy 10/21/2013 11:56 AM [facility] Specific [place] UA 1.029 1.005 - 1.030 10/21/2013 11:56 AM [facility] pH UA 5.0 5.0 - 8.0 pH 10/21/2013 11:56 AM [facility] Protein UA 2+(A) Negative 10/21/2013 11:56 AM [facility] Blood UA 2+(A) Negative 10/21/2013 11:56 AM [facility] Leukocyte UA Negative Negative 10/21/2013 11:56 AM [facility] Nitrite UA Negative Negative 10/21/2013 11:56 AM [facility] Glucose UA Negative Negative 10/21/2013 11:56 AM [facility] Ketone UA Negative Negative 10/21/2013 11:56 AM [facility] Bilirubin UA 1+(A) Negative 10/21/2013 11:56 AM [facility] Urobilinogen UA 0.2 0.1 - 1.0 EU/dL 10/21/2013 11:56 AM [facility] WBC UA Auto 10-20(A) 0-2, 2-5 #/hpf 10/21/2013 11:56 AM [facility] RBC UA Auto 2-5 0-2, 2-5 #/hpf 10/21/2013 11:56 AM [facility] Epithelial Cell UA Auto 5-10(A) 0-2, 2-5 #/hpf 10/21/2013 11:56 AM [facility] Hyaline Casts UA Auto 2-5(A) 0 - 2 #/lpf 10/21/2013 11:56 AM [facility] Urine URINE SPECIMEN OBTAINED BY CLEAN CATCH PROCEDURE / Unknown Collection / Unknown 10/21/2013 11:44 AM [facility] 10/21/2013 11:49 AM [facility] Boy Alfonso MD LAB - URINALYSIS ORD ERABLES [facility] [address] [id number] * (ABNORMAL) CULTURE URINE (10/19/2013 11:50 AM [facility]) Culture 10,000-50,000 CFU/mL Streptococcus agalactiae (Group B)(A) 10/21/2013 8:34 AM [facility] Culture <10,000 CFU/mL normal enteric marin 10/21/2013 8:34 AM [facility] Urine URINE SPECIMEN OBTAINED BY CLEAN CATCH PROCEDURE / Unknown 10/19/2013 11:50 AM [facility] 10/19/2013 11:50 AM [facility] Narrative [facility] - 10/21/2013 8:34 AM [facility] Susceptibility testing of penicillin, other beta-lactam antibiotics, and vancomycin is not necessary for beta-hemolytic streptococci groups A,B,C and G because resistant strains have not been recognized. Anyi Mullins MD LAB - MICROBIOLOGY O RDERABLES [facility] [address] [place] [address], [facility] Care Teams Inspector Shells Relationship Specialty Start Date End Date Azam Jackson, SKILLS INSTRUCTOR-LOCKSTITCH MACHINE OPERATOR [address] [place] [address] [place] [address] PCP - General Nurse Practitioner Gerontology 11/28/20
--- OUTSIDE RECORDS SUMMARY | 2024-12-24 11:38 | XMS_ITS | Clinical Summary ---
Author Organization [facility] Address [address] [place] [address] Care Team Providers Care Grab Setter Name Role Phone Azam Jackson APRN-SOAKING ROOM OPERATOR Primary Care Provide r Source Comments [facility],non-owned Affiliates and Associated Physician Practices is amultiple site organization consisting of ambulatory clinics and hospital sitesin [place], [place], [place] and [place]. This disclosure is being madepursuant to the Care Everywhere program and may not contain all information available regarding this patient. Last updated 18.[facility] Allergies Active Allergy Reactions Criticality Noted Date [...] Gluc Sensor (FREESTYLE AYDEE 14 DAY SENSOR) [facility] 12/29/2020 Active FARXIGA 10 MG tablet TAKE 1 TABLET BY MOUTH ONCE DAILY IN THE MORNING FOR 90 DAYS 07/23/2021 Active TRULICITY 3 MG/0.5ML injection INJECT 1 SUB Q ONCE A WEEK IN THE MORNING 07/23/2021 Active ergocalciferol (DRISDOL) 1.25 MG (69518 UT) capsule Vitamin D2 1,250 mcg (50,000 [...] ST Respiratory Rate 17 11/28/2020 10:01 PM CLEAN UP PERSON Oxygen Saturation 100% 08/11/2021 12:49 PM CDT Inhaled Oxygen Concentration - - Weight 89.4 kg (197 lb) 08/11/2021 12:49 PM CDT Height 162.6 cm (5' 4 ) 08/11/2021 12:49 PM CDT Body Mass Index 33.81 08/11/2021 12:49 PM CDT Plan of Treatment Upcoming Encounters Date Type Department Care Team (Late st Contact Info) Description 12/27/2024 1:00 PM CLEAN UP PERSON Office Visit [facility] [id number] [place] [address] [place] [id number] [facility] [address] [place] [address] Health Maintenance Due Date Last Done Comments MAMMOGRAM 1983 PAP SMEAR 1983 HIV SCREENING 1998 HEPATITIS C SCREENING 05/24/2001 DTAP/TDAP/TD VACCINES (1 - Tdap) 2002 HEPATITIS B VACCINE (1 of 3 - 19+ 3-dose series) 2002 PNEUMOCOCCAL VACCINE (1 of 2 - PCV) 2002 DIABETES-FOOT EXAM WITH MONOFILAMENT 07/02/2020 DIABETES-HGB A1C 07/02/2020 08/23/2019 DIABETES RETINOPATHY SCREENING 02/15/2021 02/15/2019 DIABETES-SERUM CREATININE 08/11/20222020, 11/28/2020, 08/12/2020, Additional history exists COVID-19 VACCINE ( season) 2024 INFLUENZA VACCINE (#1) 2024 DEPRESSION SCREENING 11/20/2024 DIABETES - URINE PROTEIN SCREENING 11/20/2024 ZOSTER VACCINE (1 of 2) 2033 HIB VACCINE Aged Out No longer eligi ble based on patient's age to complete this topic HPV VACCINE Aged Out No longer eligi ble based on patient's age to complete this topic MENINGOCOCCAL (Group B) VACCINE Aged Out No longer eligible based on patient's age to complete [...] LAB - POINT OF CAR E ORDERABLES [facility] POCT TESTING [address] [place] [address] from Last 3 Months or Most Recently Relevant to Health Maintenance Care Teams Grab Setter Relationship Specialty Start Date End Date Azam Jackson, SLICING MACHINE OPERATOR-SOAKING ROOM OPERATOR [address] [facility] [address] [facility] [place] [address] PCP - General Nurse Practitioner Gerontology 11/28/20
[2024-12-24 12:06] LABS: INR 0.9; Prothrombin Time 12.6 Seconds (11.1-14.7)
[2024-12-24 12:07] LABS: Partial Thromboplastin Time 24.3 Seconds (22.3-36.8)
[2024-12-24 12:14] LABS: Alanine Aminotransferase 31 U/L (6-35); Albumin Level 4.4 g/dL (3.5-5.1); Alkaline Phosphatase 90 U/L (38-126); Anion Gap 14 mmol/L (4-12); Aspartate Amino Transferase 26 U/L (14-36); Basophils Absolute Auto 0.1 K/mm3 (0.0-0.1); Basophils Percent Auto 0.8 % (0.2-1.2); Bilirubin,Total 0.6 mg/dL (0.2-1.3); Blood Urea Nitrogen 21 mg/dL (7-17); Calcium 9.2 mg/dL (8.4-10.2); Carbon Dioxide 19 mmol/L (22-30); Chloride 106 mmol/L (98-107); Eosinophils Absolute Auto 0.2 K/mm3 (0-0.3); Eosinophils Percent Auto 2.6 % (0-4.4); Estimated CRCL calculation 94 ml/min; Estimated Glomerular Filt Rate > 60; Glucose 122 mg/dL (65-110); Hemoglobin 9.3 g/dL (12.0-15.0); Immature Granulocyte Absolute 0.03 K/mm3 (0.00-0.031); Immature Granulocyte Percent A 0.5 % (0-0.5); Lipase 107 U/L (23-300); Lymphocytes Absolute Auto 1.77 K/mm3 (0.9-3.2); Lymphocytes Percent Auto 27.3 % (18.3-44.2); Mean Corpuscular HGB Conc 28.2 g/dl (32-36); Mean Corpuscular Hemoglobin 21.7 pg (26-34); Mean Corpuscular Volume 76.9 fl (80-100); Mean Platelet Volume 8.8 fl (7.4-10.4); Monocytes Absolute Auto 0.4 K/mm3 (0.1-0.6); Monocytes Percent Auto 6.5 % (2.6-8.5); Neutrophils Percent Auto 62.3 % (45.5-73.1); Nucleated Red Blood Cells Perc 0.3 % (0.0-0.2); Platelet Count Result 283 k/mm3 (150-375); Potassium 4.5 mmol/L (3.4-5.0); Red Blood Count 4.29 M/mm3 (4.2-5.4); Red Cell Distribution Width 18.2 % (11.5-14.5); Sodium 139 mmol/L (137-145); White Blood Count 6.5 K/mm3 (4.5-10.0)
[2024-12-24 12:26] LABS: Troponin I < 0.012 ng/mL (0.000-0.034)
[2024-12-24 12:33] LABS: Anisocytosis 1+; Hypochromasia 1+; Platelet Estimate Adequate (Adequate); Schistocytes None Seen
--- NOTE | 2024-12-24 14:00 | ECG_ITS ---
Test Date: 2024-12-24 14:08:27 Measurements Intervals [place] Rate: 112 P: 42 NC: 170 QRS: 11 QRSD: 88 T: 110 QT: 292 QTc: 400 Interpretive Statements SINUS TACHYCARDIA POSSIBLE LEFT ATRIAL ENLARGEMENT POSSIBLE RIGHT VENTRICULAR CONDUCTION DELAY LEFT VENTRICULAR HYPERTROPHY WITH ST-T CHANGE MINIMAL Q WAVES- ANTEROLAT/HIGH LAT LEADS BASELINE WANDER- V2-V6 ABNORMAL ECG Compared to ECG 12/24/2024 11:32:35 HEART HAS INCREASED Electronically Signed On 12-24-2024 14:26:22 FREEZER UNLOADER by Ar Valle D.O.
[2024-12-24] MEDS: ASPIRIN 81 MG CHEWABLE TABLET 324 MG PO (14:15)
--- OUTSIDE RECORDS SUMMARY | 2024-12-24 14:30 | XMS_ITS | Patient Health Summary ---
Author Organization [facility] Address [address] [place] [address] Care Team Providers Care Senior Architect Name Role Phone Azam Jackson APRN-STEWARD/STEWARDESS [employer] CAR Primary Care Provide r Note from [facility],non-owned Affiliates and Associated Physician Practices is amultiple site organization consisting of ambulatory clinics and hospital sitesin [place], [place], [place] and [place]. This disclosure is being madepursuant to the Care Everywhere program and may not contain all information available regarding this patient. Last updated 18.[facility] Allergies * Prochlorperazine * Ondansetron * [...] THE MORNING * ergocalciferol (DRISDOL) 1.25 MG (74804 UT) capsule Vitamin D2 1,250 mcg (50,000 unit) capsule * fenofibrate (LOFIBRA) 160 MG tablet(Started 05/20/2021) TAKE 1 TABLET BY MOUTH ONCE DAILY AT BEDTIME FOR 30 DAYS * fluticasone propionate (FLONASE) 50 MCG/ACT nasal spray fluticasone propionate 50 mcg/actuation nasal spray,suspension * glimepiride (AMARYL) 1 MG tablet(Started 02/14/2021) TAKE 2 TABLETS BY MOUTH TWICE DAILY BEFORE MEAL(S) * Panoramic PowerTOUCH ULTRA test strip(Started 2021) USE A TEST [...] ST Respiratory Rate 17 11/28/2020 10:01 PM HEAVY EQUIPMENT TECHNICIAN Oxygen Saturation 100% 08/11/2021 12:49 PM CDT [...] previously evaluated, recommend pelvic ultrasound. *Reading Radiologist: Jua nDiego Nevarez on 08/11/2021 at 12:45 PM Trevon [...] OF CAR E ORDERABLES Performing Organization Address City/[facility]/ZIP Co de Phone Number [facility] POCT TESTING [address] [place] [address] * PROLACTIN (11/28/2020 6:50 PM HEAVY EQUIPMENT TECHNICIAN) [facility] Prolactin 4.4 2.8 - 26.0 ng/mL 12/01/2020 3:19 PM HEAVY EQUIPMENT TECHNICIAN [facility] ([facility]) Comment: REFERENCE INTERVAL: Prolactin Access complete set of age- and/or gender-specific reference intervals for this test in the [facility] Test Directory ([employer]). Performed By: [facility] [address] [place] [address] Waterproofing Mixer: Geraldine Mehta MD Blood BLOOD SPECIMEN / Unknown Venipuncture / Unknown 11/28/2020 6:50 PM HEAVY EQUIPMENT TECHNICIAN 11/28/2020 6:15 PM HEAVY EQUIPMENT TECHNICIAN Tomy Jeffrey MD LAB - CHEMISTRY ORDE LLUVIA Performing Organization Address City/[facility] Co de Phone Number [facility]) [address] [place] [address] * (ABNORMAL) CBC W AUTO DIFFERENTIAL (11/28/2020 6:50 PM HEAVY EQUIPMENT TECHNICIAN) Only the most recent of3 resultswithin the time period is included. [facility] WBC 11.4(H) 3.5 - 10.5 10? 3 /uL 11/28/2020 7:02 PM HEAVY EQUIPMENT TECHNICIAN [facility] LABORATORY [facility] RBC 4.22 3.90 - 5.00 10? 6 /uL 11/28/2020 7:02 PM HEAVY EQUIPMENT TECHNICIAN [facility] Hemoglobin 11.8(L) 12.0 - 15.5 g/dL 11/28/2020 7:02 PM HEAVY EQUIPMENT TECHNICIAN [facility] Hematocrit 35.7 35.0 - 45.0 % 11/28/2020 7:02 PM [facility] MCV 84.6 81.0 - 97.0 fL 11/28/2020 7:02 PM [facility] MCH 28.0 28.0 - 34.0 pg 11/28/2020 7:02 PM [facility] MCHC 33.1 32.0 - 36.0 g/dL 11/28/2020 7:02 PM [facility] Platelet Count 314 150 - 400 10? 3 /uL 11/28/2020 7:02 PM [facility] RDW-SD 42.0 36.0 - 50.0 fL 11/28/2020 7:02 PM [facility] RDW-CV 13.8 11.2 - 14.8 % 11/28/2020 7:02 PM [facility] MPV 8.2(L) 9.3 - 12.8 fL 11/28/2020 7:02 PM [facility] nRBC Absolute 0.00 0 10? 3 /uL 11/28/2020 7:02 PM [facility] nRBC Auto 0.0 0 /100 WBC 11/28/2020 7:02 PM [facility] Neutrophils % 60.7 35.0 - 70.0 % 11/28/2020 7:02 PM [facility] Lymphocytes % 30.8 19.7 - 55.1 % 11/28/2020 7:02 PM [facility] Monocytes % 5.4 3.0 - 15.0 % 11/28/2020 7:02 PM [facility] Eosinophils % 2.2 0.0 - 6.0 % 11/28/2020 7:02 PM [facility] Basophil % 0.4 0.0 - 1.5 % 11/28/2020 7:02 PM [facility] Neutrophils Absolute 6.9 1.6 - 7.0 10? 3 /uL 11/28/2020 7:02 PM [facility] Lymphocyte Absolute 3.5(H) 0.8 - 2.9 10? 3 /uL 11/28/2020 7:02 PM [facility] Monocytes Absolute 0.62 0.14 - 0.66 10? 3 /uL 11/28/2020 7:02 PM [facility] Eosinophils Absolute 0.25 0.00 - 0.45 10? 3 /uL 11/28/2020 7:02 PM [facility] Basophils Absolute 0.04 0.00 - 0.06 10? 3 /uL 11/28/2020 7:02 PM [facility] Immature Granulocytes % 0.5 0.0 - 1.0 % 11/28/2020 7:02 PM [facility] Blood BLOOD SPECIMEN / Unknown Venipuncture / Unknown 11/28/2020 6:50 PM HEAVY EQUIPMENT TECHNICIAN 11/28/2020 6:15 PM HEAVY EQUIPMENT TECHNICIAN Tomy Jeffrey MD LAB - HEMATOLOGY ORD ERABLES [facility] [address] [place] [address], [facility] [phone] * (ABNORMAL) BLOOD GASES SAURABH (11/28/2020 6:50 PM HEAVY EQUIPMENT TECHNICIAN) pH Mixed Venous 7.42(H) 7.30 - 7.40 11/28/2020 6:59 PM [facility] pCO2 Mixed Venous 39(L) 40 - 46 mmHg 11/28/2020 6:59 PM [facility] pO2 Mixed Venous 20(L) 35 - 42 mmHg 11/28/2020 6:59 PM [facility] HCO3 Mixed Venous 25.1 22.0 - 26.0 mmol/L 11/28/2020 6:59 PM [facility] TCO2 Mixed Venous 26.3 25.0 - 29.0 mmol/L 11/28/2020 6:59 PM [facility] Base Excess Venous 0.7 -2.0 - 2.0 mmol/L 11/28/2020 6:59 PM [facility] Hemoglobin Mixed Venous 11.2(L) 12.0 - 15.5 g/dL 11/28/2020 6:59 PM [facility] Oxyhemoglobin Mixed Venous 31.5(L) 66.0 - 77.0 % 11/28/2020 6:59 PM [facility] Carboxyhemoglobin Venous 0.3 0.0 - 3.0 % 11/28/2020 6:59 PM [facility] Methemoglobin 1.4 0.0 - 2.0 % 11/28/2020 6:59 PM [facility] FI O2 Mixed Venous 21.0 % 2020 6:59 PM [facility] Blood BLOOD SPECIMEN / Unknown Venipuncture / Unknown 11/28/2020 6:50 PM HEAVY EQUIPMENT TECHNICIAN 11/28/2020 6:54 PM HEAVY EQUIPMENT TECHNICIAN Tomy Jeffrey MD LAB - BLOOD GASES OR DERABLES [facility] [address] [place] [address], [facility] [phone] * (ABNORMAL) COMPREHENSIVE METABOLIC PANEL (11/28/2020 6:50 PM HEAVY EQUIPMENT TECHNICIAN) Only the most recent of3 resultswithin the time period is included. BUN 17 7 - 26 mg/dL 11/28/2020 7:23 PM [facility] Creatinine 0.7 0.6 - 1.2 mg/dL 11/28/2020 7:23 PM [facility] Sodium 137 136 - 145 mmol/L 11/28/2020 7:23 PM [facility] Potassium 3.8 3.5 - 4.5 mmol/L 11/28/2020 7:23 PM [facility] Chloride 99 98 - 107 mmol/L 11/28/2020 7:23 PM [facility] CO2 22 22 - 29 mmol/L 11/28/2020 7:23 PM [facility] Glucose 85 70 - 115 mg/dL 11/28/2020 7:23 PM [facility] Calcium 9.8 8.4 - 10.2 mg/dL 11/28/2020 7:23 PM [facility] Protein Total 8.1 6.0 - 8.3 g/dL 11/28/2020 7:23 PM [facility] Albumin 3.8 3.4 - 5.0 g/dL 11/28/2020 7:23 PM [facility] Bilirubin Total 0.3 0.2 - 1.2 mg/dL 11/28/2020 7:23 PM [facility] Alkaline Phosphatase 74 40 - 150 Units/L 11/28/2020 7:23 PM [facility] ALT 28 0 - 55 Units/L 11/28/2020 7:23 PM [facility] AST 26 5 - 34 Units/L 11/28/2020 7:23 PM [facility] Anion Gap 20(H) 8 - 18 11/28/2020 7:23 PM [facility] BUN/Creatinine Ratio 24(H) 7 - 23 11/28/2020 7:23 PM [facility] Osmolality Calculated 285 270 - 300 mOsm/kg 11/28/2020 7:23 PM [facility] Albumin/Globulin Ratio 0.9(L) 1.1 - 2.3 11/28/2020 7:23 PM [facility] eGFR >60 >60 mL/min/1.7 3 m2 11/28/2020 7:23 PM [facility] Blood BLOOD SPECIMEN / Unknown Venipuncture / Unknown 11/28/2020 6:50 PM HEAVY EQUIPMENT TECHNICIAN 11/28/2020 6:15 PM [facility] Tomy Jeffrey MD [facility] Organization Address City/State/ZIP Co de Phone Number [facility] [address] [place] [address], [facility] [phone] * HCG BETA BLOOD QUANTITATIVE (11/28/2020 6:50 PM [facility]) Beta-hCG Total Quantitative <3 <5 mIU/mL 11/28/2020 7:39 PM [facility] Comment: This assay is cleared for [...] Unknown Venipuncture / Unknown 11/28/2020 6:50 PM HEAVY EQUIPMENT TECHNICIAN 11/28/2020 6:15 PM HEAVY EQUIPMENT TECHNICIAN Tomy Jeffrey MD LAB - CHEMISTRY MARCEL TEIXEIRA Performing Organization Address City/[facility]/ZIP Co de Phone Number [address] [address], [place] [phone] * PHOSPHORUS BLOOD (11/28/2020 6:50 PM HEAVY EQUIPMENT TECHNICIAN) Phosphorus 3.7 2.3 - 4.7 mg/dL 11/28/2020 7:23 PM HEAVY EQUIPMENT TECHNICIAN [facility] Blood BLOOD SPECIMEN / Unknown Venipuncture / Unknown 11/28/2020 6:50 PM HEAVY EQUIPMENT TECHNICIAN 11/28/2020 6:15 PM HEAVY EQUIPMENT TECHNICIAN Tomy Jeffrey MD LAB - CHEMISTRY MARCEL TEIXEIRA Performing Organization Address [facility]/ZIP Co de Phone Number [address] [address], [facility] [phone] * MAGNESIUM BLOOD (11/28/2020 6:50 PM HEAVY EQUIPMENT TECHNICIAN) Magnesium 1.9 1.6 - 2.6 mg/dL 11/28/2020 7:23 PM HEAVY EQUIPMENT TECHNICIAN [facility] Blood BLOOD SPECIMEN / Unknown Venipuncture / Unknown 11/28/2020 6:50 PM HEAVY EQUIPMENT TECHNICIAN 11/28/2020 6:15 PM HEAVY EQUIPMENT TECHNICIAN Tomy Jeffrey MD LAB - CHEMISTRY MARCEL TEIXEIRA [address] [address], [place] [phone] * ALCOHOL ETHYL BLOOD (11/28/2020 6:50 PM HEAVY EQUIPMENT TECHNICIAN) Interpretation Ethanol None Detected None Detected mg/dL 11/28/2020 7:23 PM HEAVY EQUIPMENT TECHNICIAN [facility] Comment:Ethanol levels less than 10 mg/dL are resulted as None detected . Blood BLOOD SPECIMEN / Unknown Venipuncture / Unknown 11/28/2020 6:50 PM HEAVY EQUIPMENT TECHNICIAN 11/28/2020 6:15 PM HEAVY EQUIPMENT TECHNICIAN Tomy Jeffrey MD LAB - CHEMISTRY MARCEL TEIXEIRA [address] [address], [place] [phone] * TSH (11/28/2020 6:50 PM HEAVY EQUIPMENT TECHNICIAN) TSH 1.087 0.350 - 4.940 uIU/mL 11/28/2020 7:39 PM HEAVY EQUIPMENT TECHNICIAN [facility] Blood BLOOD SPECIMEN / Unknown Venipuncture / Unknown 11/28/2020 6:50 PM HEAVY EQUIPMENT TECHNICIAN 11/28/2020 6:15 PM HEAVY EQUIPMENT TECHNICIAN Tomy Jeffrey MD LAB - CHEMISTRY MARCEL TEIXEIRA Performing Organization Address City/[facility]/ZIP Co de Phone Number [address] [address], [place] [phone] * ACETAMINOPHEN LEVEL (11/28/2020 6:50 PM HEAVY EQUIPMENT TECHNICIAN) Pathologist [facility] Acetaminophen <3.0 <30.0 mcg/mL 11/28/2020 7:23 PM HEAVY EQUIPMENT TECHNICIAN [facility] Blood BLOOD SPECIMEN / Unknown Venipuncture / Unknown 11/28/2020 6:50 PM HEAVY EQUIPMENT TECHNICIAN 11/28/2020 6:15 PM HEAVY EQUIPMENT TECHNICIAN Tomy Jeffrey MD LAB - CHEMISTRY MARCEL TEIXEIRA [address] [address], [place] [phone] * GLUCOSE - POINT OF CARE (11/28/2020 6:44 PM HEAVY EQUIPMENT TECHNICIAN) Only the most recent of2 resultswithin the time period is included. Glucose WB/POC 86 70 - 115 mg/dL 11/28/2020 6:54 PM HEAVY EQUIPMENT TECHNICIAN [facility] Specimen Type Arterial/C apillary 11/28/2020 6:54 PM HEAVY EQUIPMENT TECHNICIAN [facility] Blood BLOOD SPECIMEN / Unknown 11/28/2020 6:44 PM HEAVY EQUIPMENT TECHNICIAN 11/28/2020 6:54 PM HEAVY EQUIPMENT TECHNICIAN Dario Aponte MD LAB - POINT OF CARE ORDERABLES [facility] [address] [place] [address], [facility] [phone] * CT HEAD WO CONTRAST (11/28/2020 4:30 PM HEAVY EQUIPMENT TECHNICIAN) Anatomical Region Laterality Modality Head Computed Tomogra phy 11/28/2020 4:59 PM HEAVY EQUIPMENT TECHNICIAN Impressions 11/29/2020 8:52 AM HEAVY EQUIPMENT TECHNICIAN IMPRESSION: Normal examination of the brain. No acute intracranial hemorrhage, midline shift, or significant mass effect. Dictated by Anibal Sky MD (Vaccine Customer Representative) I, Dr. AJAY BAJWA have personally reviewed and interpreted this examination/study. This report was electronically signed by AJAY BAJWA ??on 11/29/2020 8:52 AM . Narrative 11/29/2020 8:52 AM HEAVY EQUIPMENT TECHNICIAN CT HEAD WITHOUT CONTRAST, 11/28/2020 4:30 PM [...] mass effect. Dictated by Anibal Sky MD (Vaccine Customer Representative) I, Dr. AJAY BAJWA have personally reviewed [...] further evaluation. Left message with the ED physician office secretary that the prelim is available in [employer]. Dictated by Sergio Navas MD (surgeon/president). This report was approved ??by Sergio Navas [...] for furtherevaluation. Left message with the ED physician office secretary that the prelim is available inSynapse. Dictated by Sergio Navas MD (surgeon/president). This report was approved by Sergio Navas [...] pulmonary process. Dictated by Chin Aguilera MD (surgeon/president). This report was approved ??by Chin Aguilera [...] visible bony thorax is intact. Procedure Note Chaiyto Mcpherson MD - 02/16/2018 EXAMINATION: XR CHEST PA AND LATERAL HISTORY: Chest pain COMPARISON: No prior study is available for comparison. FINDINGS: There is no focal consolidation, pleural effusion, or pneumothorax. Thecardiomediastinal silhouette is normal. The visible bony thorax isintact. IMPRESSION IMPRESSION: No acute pulmonary process. Dictated by Chin Aguilera MD (surgeon/president). This report was approved by Chin Aguilera M.D. on 02/28/2017 9:[address] CHAYITO Sanderson M.D. have personally reviewed and interpreted thisexamination/study. This report was electronically signed by CHAYITO MCPHERSON M.D. on 02/28/20179:28 AM . Charisse Leyva MD DIAGNOSTIC IMAGING O RDERABLES * HCG URINE QUALITATIVE - POCT (IP) [facility] (02/28/2017 12:35 AM CDT) Test Urine negative [facility] Urine specimen (specimen) 02/28/2017 12:35 AM CDT Charisse Leyva MD LAB - POINT OF CARE ORDERABLES [facility] * (ABNORMAL) URINALYSIS W/MICROSCOPIC NO CULTURE (02/28/2017 12:33 AM CDT) Color UA Yellow Straw, Yellow, Colorless, Light Yellow [facility] Clarity UA Clear Clear [facility] Specific [place] UA 1.030 1.001 - 1.030 [facility] pH UA 5.5 5.0 - 8.0 [facility] Protein UA 20 <=20 mg/dL [facility] Glucose UA >1000(A) Negative mg/dL [facility] Ketone UA Trace(A) Negative mg/dL [facility] Bilirubin UA Negative Negative mg/dL [facility] Blood UA Negative Negative [facility] Nitrite UA Negative Negative [facility] Leukocyte Esterase Negative Negative [facility] Urobilinogen UA <2.0 <2.0 mg/dL [facility] RBC UA 4 0 - 8 /HPF [facility] WBC UA 1 0 - 2 /HPF [facility] Squamous Epithelial Cells UA 7(H) 0 - 1 /HPF [facility] Mucus UA Rare(A) None /LPF [facility] Urine specimen (specimen) 02/28/2017 12:33 AM CDT 02/28/2017 12:53 AM CDT Charisse Leyva MD LAB - URINALYSIS ORD ERABLES [address] [phone] * LIPASE BLOOD (02/28/2017 12:29 AM CDT) Lipase 38 8 - 78 Units/L [facility] Blood specimen (specimen) BLOOD SPECIMEN / Unknown 02/28/2017 12:29 AM CDT 02/28/2017 12:52 AM CDT Charisse Leyva MD LAB - CHEMISTRY ORDE RABLES [address] [phone] * (ABNORMAL) CBC W/O DIFFERENTIAL (02/28/2017 12:29 AM CDT) WBC 7.8 3.5 - 10.5 10? 3 /uL [facility] RBC 4.33 3.90 - 5.00 10? 6 /uL [facility] Hemoglobin 11.6(L) 12.0 - 15.5 g/dL [facility] Hematocrit 35.4 35.0 - 45.0 % [facility] MCV 81.8 81.0 - 97.0 fL [facility] MCH 26.8(L) 28.0 - 34.0 pg [facility] MCHC 32.8 32.0 - 36.0 g/dL [facility] Platelet Count 250 150 - 400 10? 3 /uL [facility] RDW-SD 41.6 36.0 - 50.0 fL [facility] RDW-CV 13.9 11.2 - 14.8 % [facility] MPV 9.0(L) 9.3 - 12.8 fL [facility] nRBC Absolute 0.00 0 10? 3 /uL [facility] nRBC Auto 0.0 0 /100 WBC [facility] Blood specimen (specimen) BLOOD SPECIMEN / Unknown 02/28/2017 12:29 AM CDT 02/28/2017 12:52 AM CDT Charisse Leyva MD LAB - HEMATOLOGY ORD ERABLES [facility] [address] [place] [address] * D-DIMER (02/28/2017 12:29 AM CDT) D-Dimer Quantitative <0.27 <=0.50 mcg/mL FEU [facility] Comment: In the absence of clinical [...] - COAGULATION OR DERABLES Performing Organization Address [facility] Phone Number [facility]OR[facility] [address] [phone] * EKG 12-LEAD (02/27/2017 12:00 AM CDT) EKG [facility] RADIOLOGY Comment: Exam Date/Time: ?? Feb 27 [...] available Confirmed by MD Pao, Hanane ([id number]), news videotape editor CHRISTINA HASSAN ([id number]) on 03/06/2017 7:00:51 PM Referred By: REFERRING NO ? Confirmed By:Hanane Cedeno MD 02/27/2017 Charisse Leyva MD ECG ORDERABLES [facility] RADIOLOGY * HCG URINE QUALITATIVE - POINT OF CARE (IP) (08/14/2014 2:11 AM CDT) Only the most recent of2 resultswithin the time period is included. HCG Qual Urine Negative Negative [facility] POCT TESTING QC Verified Yes Yes [facility] POC T TESTING Urine specimen (specimen) URINE / Unknown 08/14/2014 2:11 AM CDT Paco Gore MD LAB - POINT OF CARE ORDERABLES Performing Organization Address City/[facility]/ZIP Co de Phone Number [facility] POCT TESTING [address] [place] [address], [facility] * (ABNORMAL) URINALYSIS ROUTINE W/REFLEX TO CULTURE (08/14/2014 2:10 AM CDT) Only the most recent of2 resultswithin the time period is included. Color UA Yellow Straw, Yellow, Dark Yellow 08/14/2014 2:25 AM CDT [facility] Clarity UA Clear 08/14/2014 2:25 AM T [facility] Specific [place] UA 1.015 1.005 - 1.030 08/14/2014 2:25 AM T [facility] pH UA 6.0 5.0 - 8.0 pH 08/14/2014 2:[address] [facility] Protein UA Trace(A) Negative 08/14/2014 2:25 AM T [facility] Blood UA Trace(A) Negative 08/14/2014 2:25 AM T [facility] Leukocyte UA Negative Negative 08/14/2014 2:25 AM T [facility] Nitrite UA Negative Negative 08/14/2014 2:25 AM T [facility] Glucose UA 3+(A) Negative 08/14/2014 2:25 AM CDT [facility] Ketone UA Negative Negative 08/14/2014 2:25 AM [facility] Bilirubin UA Negative Negative 08/14/2014 2:25 AM T [facility] Urobilinogen UA 0.2 0.1 - 1.0 EU/dL 08/14/2014 2:25 AM T [facility] WBC UA Auto 5-10(A) 0-2, 2-5 #/hpf 08/14/2014 2:25 AM CDT [facility] RBC UA Auto 0-2 0-2, 2-5 #/hpf 08/14/2014 2:25 AM CDT [facility] Epithelial Cell UA Auto 2-5 0-2, 2-5 #/hpf 08/14/2014 2:25 AM CDT [facility] Urine Microscopy Urine microscopy not indicated 08/14/2014 2:25 AM CDT [facility] Reflex Status Culture not indicated 08/14/2014 2:25 AM CDT [facility] Urine URINE SPECIMEN OBTAINED BY CLEAN CATCH PROCEDURE / Unknown 08/14/2014 2:10 AM CDT 08/14/2014 2:16 AM CDT Paco Gore MD LAB - URINALYSIS ORD ERABLES Performing Organization Address [facility]/ZIP Co de Phone Number [facility] [address] [place] [address] * HCG BLOOD QUALITATIVE (10/21/2013 1:03 PM HEAVY EQUIPMENT TECHNICIAN) HCG Qual Serum Negative Negative 10/21/2013 1:31 PM HEAVY EQUIPMENT TECHNICIAN [facility] Blood BLOOD SPECIMEN / Unknown Venipuncture / Unknown 10/21/2013 1:03 PM HEAVY EQUIPMENT TECHNICIAN 10/21/2013 1:19 PM HEAVY EQUIPMENT TECHNICIAN Narrative [facility] - 10/21/2013 1:31 PM HEAVY EQUIPMENT TECHNICIAN Specimens containing heterophilic antibodies may demonstrate false positive results. ??Specimens containing human anti-mouse antibodies may exhibit false positive or false negative results. If qualitative interpretation is inconsistant with clinical evaluation, consider confirmation by an alternative HCG method. Boy Alfonso MD LAB - CHEMISTRY ORDE LLUVIA Performing Organization Address City/[facility]/ZIP Co de Phone Number [facility] [address] [place] [address] * Stone Protocol CT (10/21/2013 1:02 PM HEAVY EQUIPMENT TECHNICIAN) Anatomical Region Laterality Modality Abdomen, Pelvis Computed Tomogra phy 10/21/2013 1:35 PM HEAVY EQUIPMENT TECHNICIAN Impressions 10/21/2013 1:39 PM HEAVY EQUIPMENT TECHNICIAN No obstruction or definite urinary stone seen at this time. A 1.3 CM cyst is suspected in the left ovary. Narrative 10/21/2013 1:39 PM HEAVY EQUIPMENT TECHNICIAN Examination: Noncontrast Abdomen and Pelvic CT Indication: [...] or syntax problems by a trained medical donation professional. For questions about the report, please contact [...] or syntax problems by a trained medical donation professional. For questions about the report, please contact the Radiology Department. IMPRESSION No obstruction or definite urinary stone seen at this time. A 1.3 CM cyst is suspected in the left ovary. Boy Alfonso MD CT ORDERABLES * (ABNORMAL) BASIC METABOLIC PANEL (CALCIUM TOTAL) (10/21/2013 12:46 PM HEAVY EQUIPMENT TECHNICIAN) Glucose 147(H) 74 - 106 mg/dL 10/21/2013 1:10 PM [facility] Sodium 139 136 - 145 mmol/L 10/21/2013 1:10 PM [facility] Potassium 3.9 3.5 - 5.1 mmol/L 10/21/2013 1:10 PM [facility] Chloride 105 98 - 107 mmol/L 10/21/2013 1:10 PM [facility] CO2 26 22 - 31 mmol/L 10/21/2013 1:10 PM [facility] Calcium 9.1 8.5 - 10.1 mg/dL 10/21/2013 1:10 PM [facility] Anion Gap 8 5 - 15 mmol/L 10/21/2013 1:10 PM [facility] BUN 17 7 - 21 mg/dL 10/21/2013 1:10 PM [facility] Creatinine 0.44(L) 0.50 - 1.30 mg/dL 10/21/2013 1:10 PM [facility] eGFR by MDRD >60 >60 mL/min/1.7 3m2 10/21/2013 1:10 PM [facility] eGFR by MDRD >60 >60 mL/min/1.7 3m2 10/21/2013 1:10 PM [facility] Blood BLOOD SPECIMEN / Unknown Venipuncture / Unknown 10/21/2013 12:46 PM [employer]CH[employer] 10/21/2013 12:56 PM [employer] E[employer] TECHNICIAN Boy Alfonso MD LAB - CHEMISTRY MARCEL TEIXEIRA [facility] Organization Address City/State/ZIP Co de Phone Number [facility] [address] [phone] * (ABNORMAL) URINALYSIS ROUTINE AUTO (10/21/2013 11:44 AM [employer] TECHNICIAN) Color UA Yellow Straw, Yellow, Dark Yellow 10/21/2013 11:56 AM [facility] Clarity UA Cloudy 10/21/2013 11:56 AM [facility] Specific [place] UA 1.029 1.005 - 1.030 10/21/2013 11:56 AM [facility] pH UA 5.0 5.0 - 8.0 pH 10/21/2013 11:56 AM [facility] Protein UA 2+(A) Negative 10/21/2013 11:56 AM [facility] Blood UA 2+(A) Negative 10/21/2013 11:56 AM [facility] Leukocyte UA Negative Negative 10/21/2013 11:56 AM [facility] Nitrite UA Negative Negative 10/21/2013 11:56 AM [facility] Glucose UA Negative Negative 10/21/2013 11:56 AM [facility] Ketone UA Negative Negative 10/21/2013 11:56 AM [facility] Bilirubin UA 1+(A) Negative 10/21/2013 11:56 AM [facility] Urobilinogen UA 0.2 0.1 - 1.0 EU/dL 10/21/2013 11:56 AM [facility] WBC UA Auto 10-20(A) 0-2, 2-5 #/hpf 10/21/2013 11:56 AM [facility] RBC UA Auto 2-5 0-2, 2-5 #/hpf 10/21/2013 11:56 AM [facility] Epithelial Cell UA Auto 5-10(A) 0-2, 2-5 #/hpf 10/21/2013 11:56 AM [facility] Hyaline Casts UA Auto 2-5(A) 0 - 2 #/lpf 10/21/2013 11:56 AM [facility] Urine URINE SPECIMEN OBTAINED BY CLEAN CATCH PROCEDURE / Unknown Collection / Unknown 10/21/2013 11:44 AM [facility] 10/21/2013 11:49 AM [facility] Boy Alfonso MD LAB - URINALYSIS ORD ERABLES [facility] [address] [address] * (ABNORMAL) CULTURE URINE (10/19/2013 11:50 AM HEAVY EQUIPMENT TECHNICIAN) Culture 10,000-50,000 CFU/mL Streptococcus agalactiae (Group B)(A) 10/21/2013 8:34 AM HEAVY EQUIPMENT TECHNICIAN [facility] Culture <10,000 CFU/mL normal enteric marin 10/21/2013 8:34 AM [facility] Urine URINE SPECIMEN OBTAINED BY CLEAN CATCH PROCEDURE / Unknown 10/19/2013 11:50 AM HEAVY EQUIPMENT TECHNICIAN 10/19/2013 11:50 AM HEAVY EQUIPMENT TECHNICIAN Narrative [facility] - 10/21/2013 8:34 AM HEAVY EQUIPMENT TECHNICIAN Susceptibility testing of penicillin, other beta-lactam antibiotics, and vancomycin is not necessary for beta-hemolytic streptococci groups A,B,C and G because resistant strains have not been recognized. Anyi Mullins MD LAB - MICROBIOLOGY O RDERABLES [facility] MI[facility] [address] [place] [address], [facility] Care Teams Senior Architect Relationship Specialty Start Date End Date Azam Jackson, MOTORMAN/WOMAN-STEWARD/STEWARDESS CLUB CAR [address] [place] [address] [place] [address] PCP - General Nurse Practitioner Gerontology 11/28/20
--- OUTSIDE RECORDS SUMMARY | 2024-12-24 14:30 | XMS_ITS | Referral Summary ---
Author Organization [facility] Address [address] [place] [address] Care Team Providers Care Regional Sales Associate Name Role Phone Azam Jackson APRN-SUPERVISOR TUMBLING AND ROLLING Primary Care Provide r Source Comments [facility],non-owned Affiliates and Associated Physician Practices is amultiple site organization consisting of ambulatory clinics and hospital sitesin [place], [place], [place] and [place]. This disclosure is being madepursuant to the Care Everywhere program and may not contain all information available regarding this patient. Last updated 18.[facility] Allergies Active Allergy Reactions Criticality Noted Date [...] Gluc Sensor (FREESTYLE AYDEE 14 DAY SENSOR) [facility] 12/29/2020 Active FARXIGA 10 MG tablet TAKE 1 TABLET BY MOUTH ONCE DAILY IN THE MORNING FOR 90 DAYS 07/23/2021 Active TRULICITY 3 MG/0.5ML injection INJECT 1 SUB Q ONCE A WEEK IN THE MORNING 07/23/2021 Active ergocalciferol (DRISDOL) 1.25 MG (16335 UT) capsule Vitamin D2 1,250 mcg (50,000 [...] ST Respiratory Rate 17 11/28/2020 10:01 PM BEATER LEAD Oxygen Saturation 100% 08/11/2021 12:49 PM CDT Inhaled Oxygen Concentration - - Weight 89.4 kg (197 lb) 08/11/2021 12:49 PM CDT Height 162.6 cm (5' 4 ) 08/11/2021 12:49 PM CDT Body Mass Index 33.81 08/11/2021 12:49 PM CDT Plan of Treatment Upcoming Encounters Date Type Department Care Team (Late st Contact Info) Description 12/27/2024 1:00 PM BEATER LEAD Office Visit [facility] Weight Management Services [id number] [place] [address] [address] [place] [address] [place] [address] [facility] [address] [place] [address] Procedures Procedure Name Priority Date/Time [...] de Phone Number [facility] [address] [phone] from Last 3 Months or Most Recently Relevant to Health Maintenance Care Teams Regional Sales Associate Relationship Specialty Start Date End Date Azam Jackson APRN-SUPERVISOR TUMBLING AND ROLLING [address] [place] [address] PCP - General Nurse Practitioner Gerontology 11/28/20
--- OUTSIDE RECORDS SUMMARY | 2024-12-24 14:30 | XMS_ITS | Clinical Summary ---
Author Organization [facility] Address [address] [place] [address] Care Team Providers Care Agricultural Crop Farm Manager Name Role Phone Azam Jackson APRN-REFRIGERATION SPECIALIST Primary Care Provide r Source Comments [facility],non-owned Affiliates and Associated Physician Practices is amultiple site organization consisting of ambulatory clinics and hospital sitesin [place], [place], [place] and [place]. This disclosure is being madepursuant to the Care Everywhere program and may not contain all information available regarding this patient. Last updated 18.[facility] Allergies Active Allergy Reactions Criticality Noted Date [...] Gluc Sensor (FREESTYLE AYDEE 14 DAY SENSOR) [facility] 12/29/2020 Active FARXIGA 10 MG tablet TAKE 1 TABLET BY MOUTH ONCE DAILY IN THE MORNING FOR 90 DAYS 07/23/2021 Active TRULICITY 3 MG/0.5ML injection INJECT 1 SUB Q ONCE A WEEK IN THE MORNING 07/23/2021 Active ergocalciferol (DRISDOL) 1.25 MG (53114 UT) capsule Vitamin D2 1,250 mcg (50,000 [...] ST Respiratory Rate 17 11/28/2020 10:01 PM TEA BAG MACHINE TENDER Oxygen Saturation 100% 08/11/2021 12:49 PM CDT Inhaled Oxygen Concentration - - Weight 89.4 kg (197 lb) 08/11/2021 12:49 PM CDT Height 162.6 cm (5' 4 ) 08/11/2021 12:49 PM CDT Body Mass Index 33.81 08/11/2021 12:49 PM CDT Plan of Treatment Upcoming Encounters Date Type Department Care Team (Late st Contact Info) Description 12/27/2024 1:00 PM TEA BAG MACHINE TENDER Office [facility] [address] [facility] [address] [place] [address] [place] [address] [facility] [facility] [address] [place] [address] Health Maintenance Due Date Last [...] OF CAR E ORDERABLES [facility] [address] [place] [address] from Last 3 Months or Most Recently Relevant to Health Maintenance Care Teams Agricultural Crop Farm Manager Relationship Specialty Start Date End Date Azam Jackson, COMMISSIONING ENGINEER-REFRIGERATION SPECIALIST [address] [facility] [place] [address] PCP - General Nurse Practitioner Gerontology 11/28/20
--- OUTSIDE RECORDS SUMMARY | 2024-12-24 14:30 | XMS_ITS | Clinical Summary ---
Author Organization [facility] [address] Address [address] [place] [address] Care Team Providers Care Drawing Kiln Supervisor Name Role Phone Andrei Clark MD Primary Care Provider [phone] Kandace Freedman OT Unavailable [phone] Christina Brusnon MD Unavailable [phone] Allergies Active Allergy Reactions Criticality Noted Date [...] mellitus 03/31/2022 Atherosclerotic heart diseas e of [place] coronary artery without angina pectoris 12/31/2020 Unspecified [...] this with Dr. Pérez. Recs: [facility]she understands she needs to be the one to call) for CBT for FND, anxiety, depression. 2. Consider Valium after I discuss with Dr. Pérez. 3. Continue with psychiatry. 4. Start positive self talk and meditative exercises for spells . 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/2020 2:55 PM ASSEMBLER MOVEMENT): She has abnormal involuntary movements including vocalizations, [...] video EEG (scheduled for next month at [facility]) to clarify whether any aspect of [...] complication, without long-term current use of insulin ([facility]) 04/04/2017 Polycystic ovaries 04/04/2017 Hypertensive chronic kidney [...] Polycystic ovarian disease DVT (deep venous thrombosis) ([facility]) (HCC) Idiopathic intracranial hypertension Polycystic kidney disease [...] on file Legal Sex Female 4:48 PM ASSEMBLER MOVEMENT Gender Identity Not on file Sexual Orientation [...] Diagnosis Comments EGFR Routine 10/17/2022 5:08 PM ASSEMBLER MOVEMENT Cyst of left ovary HEMOGLOBIN A1C STAT 08/23/2019 5:28 PM CDT from Last 3 Months or Most Recently Relevant to Health Maintenance Results * (ABNORMAL) eGFR (10/17/2022 5:08 PM ASSEMBLER MOVEMENT) eGFR 82(L) 90 - 130 mL/min/1. 73 [...] last reviewed 2021. Blood 10/17/2022 5:08 PM ASSEMBLER MOVEMENT 10/17/2022 5:58 PM ASSEMBLER MOVEMENT us Premal Elia Jackson MD LAB BLOOD ORDERABLES Fin al Result LUCIEN SAM [facility] [place] [address] * (ABNORMAL) Hemoglobin A1c (08/23/2019 5:28 PM [...] children were not included. ?? (Diabetes Care 31:1551-4248, 2008). ??The eAG is not equivalent to a fasting glucose. Blood specimen (specimen) 08/23/2019 5:28 PM CDT 08/23/2019 6:04 PM CDT us Notinfile Unknown LAB BLOOD ORDERABLES Final Res ult [facility] 1 [place] [address] from Last 3 Months or Most Recently Relevant to Health Maintenance Insurance AURELIO ACCESS AURELIO TRADITIONAL [facility] FEDERAL [facility] FEDERAL Advance Directives For more information, please contact: [phone] * Full Code (Latest Code Status on File) Date Activated Date Inactivated Comments 01/25/2021 9:49 AM 01/31/2021 8:38 PM * Full Code Date Activated Date Inactivated Comments 02/11/2019 4:38 PM 02/13/2019 11:05 AM Care Teams Drawing Kiln Supervisor Relationship Specialty Start Date End Date Andrei Clark MD PCP - General Internal Medicine 12/11/20 Kandace rFeedman OT [address] [place] [address] Occupational Therapist Occupational Therapy 03/15/21 Christina Brunson MD [address] [facility] [address] [place] [address] Obstetrics and Gynecology 08/02/22
--- OUTSIDE RECORDS SUMMARY | 2024-12-24 14:30 | XMS_ITS | CONTINUITY OF CARE DOCUMENT ---
Author Name apdmini, padmini Address Unknown Organization [facility] Address [address] [facility] [facility] [facility] [address] [place] [address] Phone [phone] Care Team Providers Care Supervisor Framing Mill Name Role Phone Chitra RUEDA, Lucio Unavailable CHITRA RUEDA, MIGUEL Unavailable ABELINO RUEDA, FABIÁN Unavailable [phone] PROBLEMS Condition Status Date Provider Notes Migraine [...] Payer name Policy type / Coverage type [place] [employer] party ID [facility] [id number]
--- OUTSIDE RECORDS SUMMARY | 2024-12-24 14:30 | XMS_ITS | Encounter Summary ---
Author Organization [facility] Address [address] [place] [address] Phone Care Team Providers Care Debug Technician Name Role Phone Unknown, Notinfile Primary Care Provider Unavail able Dorota Martinez MD Primary Care Provider [phone] Andrei Clark MD Primary Care Provider [phone] Kandace Freedman OT Unavailable [phone] Christina Brunson MD Unavailable [phone] Encounter Details Date Type Department Care Team (Late st Contact Info) Description 02/07/2019 Ophth Exam [facility] Ophthalmology [address] [place] [address] [address] [place] [id number] Diana Leon MD PhD [address] [place] [address] Social History Tobacco Use Types Packs/Day Years [...] on file Legal Sex Female 4:48 PM SUPERVISING EDITOR NEWS REEL Gender Identity Not on file Sexual Orientation [...] no RT/RD/necrosis no RT/RD/necro sis Care Teams Debug Technician Relationship Specialty Start Date End Date Unknown, Notinfile PCP - General 02/04/19 02/10/19 Dorota Martinez MD [address] [place] [address] [address] [place] [address] PCP - General 02/11/19 12/10/20 Andrei Clark MD [address] [facility] 1 [place] [address] PCP - General Internal Medicine 12/11/20 Kandace Freedman OT [address] [place] [address] Occupational Therapist Occupational Therapy 03/15/21 Christina Brunson MD [address] [facility] [address] [place] [address] Obstetrics and Gynecology 08/02/22 documented as of this encounter
--- OUTSIDE RECORDS SUMMARY | 2024-12-24 14:31 | XMS_ITS | Referral Summary ---
Author Organization [facility] [address] Address [address] [place] [address] Care Team Providers Care Party Planner Name Role Phone Andrei Clark MD Primary Care Provider [phone] Kandace Freedman OT Unavailable [phone] Christina Brunson MD Unavailable [phone] Allergies Active Allergy Reactions Criticality Noted Date [...] mellitus 03/31/2022 Atherosclerotic heart diseas e of [place] coronary artery without angina pectoris 12/31/2020 Unspecified [...] 1. [facility] (she understands she needs to be the one to call) for CBT for FND, anxiety, depression. 2. Consider Valium after I discuss with Dr. Pérez. 3. Continue with psychiatry. 4. Start positive self talk and meditative exercises for spells . 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/2020 2:55 PM BLISTER PACK OPERATOR): She has abnormal involuntary movements including vocalizations, [...] video EEG (scheduled for next month at [facility]) to clarify whether any aspect of [...] complication, without long-term current use of insulin ([facility]) 04/04/2017 Polycystic ovaries 04/04/2017 Hypertensive chronic [...] on file Legal Sex Female 4:48 PM BLISTER PACK OPERATOR Gender Identity Not on file Sexual [...] Diagnosis Comments EGFR Routine 10/17/2022 5:08 PM BLISTER PACK OPERATOR Cyst of left ovary HEMOGLOBIN A1C STAT 08/23/2019 5:28 PM CDT from Last 3 Months or Most Recently Relevant to Health Maintenance Results * (ABNORMAL) eGFR (10/17/2022 5:08 PM BLISTER PACK OPERATOR) eGFR 82(L) 90 - 130 mL/min/1. 73 [...] last reviewed 2021. Blood 10/17/2022 5:08 PM BLISTER PACK OPERATOR 10/17/2022 5:58 PM BLISTER PACK OPERATOR us Premal Elia Jackson MD LAB BLOOD ORDERABLES Fin al Result LUCIEN SAM [facility] [place] [address] * (ABNORMAL) Hemoglobin A1c (08/23/2019 5:28 PM [...] children were not included. ?? (Diabetes Care 31:0100-4020, 2008). ??The eAG is not equivalent to a fasting glucose. Blood specimen (specimen) 08/23/2019 5:28 PM CDT 08/23/2019 6:04 PM CDT us Notinfile Unknown LAB BLOOD ORDERABLES Final Res ult [facility] 1 [place] [address] from Last 3 Months or Most Recently Relevant to Health Maintenance Insurance AURELIO ACCESS AURELIO TRADITIONAL [facility] FEDERAL [facility] FEDERAL Advance Directives For more information, please contact: [phone] * Full Code (Latest Code Status on File) Date Activated Date Inactivated Comments 01/25/2021 9:49 AM 01/31/2021 8:38 PM * Full Code Date Activated Date Inactivated Comments 02/11/2019 4:38 PM 02/13/2019 11:05 AM Care Teams Party Planner Relationship Specialty Start Date End Date Andrei Clark MD PCP - General Internal Medicine 12/11/20 Kandace Freedman OT [address] [place] [address] Occupational Therapist Occupational Therapy 03/15/21 Christina Brunson MD [address] [facility] [address] [place] [address] Obstetrics and Gynecology 08/02/22
[2024-12-24 14:36] LABS: Troponin I < 0.012 ng/mL (0.000-0.034)
--- NOTE | 2024-12-24 17:13 | PC.NURSE ---
Per MD Snell, ok to cancel 6 hour troponin.
--- NOTE | 2024-12-24 17:28 | ED_ITS ---
HPI - Chest Pain General Chief Complaint: Chest Pain Stated Complaint: chest pain Time Seen by Provider: 12/24/24 13:54 Source: patient Mode of arrival: ambulatory Limitations: no limitations History of Present Illness HPI narrative: This is a 39-year-old female, with history of CKD, pseudotumor cerebri and diabetes who presents to the emergency department complaining of intermittent left-sided chest pain for the past 4 days. The patient describes the pain as stabbing, rated 6/10 without any obvious aggravating or alleviating factors. She denies any known trauma. She denies fevers, chills, shortness of breath or loss of consciousness. She has no other complaints at this time. Related Data Home Medications ?Medication ?Instructions ?Recorded ?Confirmed ?Last Taken ?Type losartan 100 mg tablet 100 mg PO DAILY 04/30/20 11/10/24 11/17/20 09:00 History metformin 500 mg tablet,extended 500 mg PO DAILY 04/30/20 11/10/24 11/17/20 09:00 History release 24 hr albuterol sulfate 90 mcg/actuation 1 inh inhalation PRN PRN Shortness 07/06/20 11/10/24 11/16/20 21:00 History aerosol inhaler (ProAir HFA) Of Breath insulin degludec 200 unit/mL (3 40 unit subcut HS 07/06/20 11/10/24 11/17/20 21:00 History mL) subcutaneous pen (Tresiba FlexTouch U-200 insulin) rosuvastatin 10 mg tablet (Crestor) 10 mg PO DAILY 08/09/20 11/10/24 11/17/20 21:00 History bupropion HCl 150 mg tablet,12 hr 150 mg PO DAILY 04/20/22 11/10/24 Unknown History sustained-release (Wellbutrin SR) dapagliflozin propanediol 10 mg 10 mg PO DAILY 04/20/22 11/10/24 Unknown History tablet (Farxiga) aspirin 81 mg tablet,delayed mg 11/10/24 Unknown History release bupropion HCl 150 mg 24 hr tablet, mg PO 11/10/24 Unknown History extended release Allergies Allergy/AdvReac Type Severity Reaction Status Date / Time metoclopramide AdvReac Severe PANIC Verified 12/24/24 11:43 ATTACKS ondansetron AdvReac Severe PANIC Verified 12/24/24 11:43 ATTACKS prochlorperazine (From AdvReac Severe PANIC Verified 12/24/24 11:43 Compazine) ATTACKS promethazine AdvReac Severe PANIC Verified 12/24/24 11:43 ATTACKS adhesive tape AdvReac Intermediate Rash Verified 12/24/24 11:43 Review of Systems 2 Review of Systems: All systems reviewed & are unremarkable except as noted in HPI and below PMFSH Past Medical History Medical History Yeast infection Colon, diverticulosis Hematochezia Constipation Complex cyst of left ovary surgical removal SOB (shortness of breath) Bilateral hand pain Chronic kidney disease CRP elevated Myalgia Myalgia BOBBY positive (~2020) Degenerative joint disease of cervical and lumbar spine Pseudotumor cerebri History of Pettit's palsy Kidney cysts Followed by a continuous miner operator in [place]. Anxiety Migraine headache Polycystic ovarian syndrome Gastroesophageal reflux disease Insulin dependent type 2 diabetes mellitus Hemoglobin A1c on 11/12/2020 was 7.9%. Dyslipidemia Empty sella syndrome Fibromyalgia Hypertension Surgical History Surgical History History of esophagogastroduodenoscopy (EGD) History of unilateral oophorectomy History of bilateral salpingectomy History of tubal ligation Delivery by section xs 2 History of laparoscopic cholecystectomy (~2005) Family History Family History Father Diabetes mellitus Hypertension Myocardial infarct Heart disease Mother Diabetes mellitus Heart disease Sibling Narcolepsy and cataplexy Legal Guardian No problems noted. Grandparent Breast cancer Social History Social History Social History: The patient is and lives in [place] with her teenage son and daughter. She works for the [employer]. She smoked about a half a pack of cigarettes a day and quit in June 2020. No alcohol or illicit substance abuse. She designates her daughter Kiesha as her surrogate decision maker and she wishes to be a full code. Smoking packs per day: 1 Smoking cigarettes per day: 20.0 Years smoked: 20 Smoking pack-years: 20.00 Smoking status: Former smoker Tobacco type: cigarettes Second hand tobacco smoke exposure: Yes Smoking end date: 06/29/20 Alcohol intake: never Substance use: never Substance use type: does not use Other substance usage details: Previously used marijuana; denies currently Last use: DAILY Do You Feel Safe in your Home?: Yes Lack of Transportation: No Lack of Food: Never True Current Housing: I Have Housing Concerned About Future Housing: No Difficulty Paying Gas/Electric Bills: No Difficulty Paying for Meds: No Currently Unemployed: No Education: Associate Degree Difficulty w/ Childcare or Family Care: No Living arrangements: with family Occupation/Education: occupation Additional occupation/education comments: [employer] Gender identity (if verbalized by the patient): Female Sexual Orientation (if Verbalized by the Patient): Bisexual Spiritual care concerns: No Exam 2 Narrative: GENERAL: Well-developed, well-nourished, and in no acute distress. HEAD: Normocephalic, atraumatic. EYES: PERRLA and EOMI. NECK: Supple. No JVD CHEST: Clear to auscultation. No respiratory distress. No wheezes rales or rhonchi HEART: tachycardic with regular rhythm. No murmur heard. Normal peripheral pulses. ABDOMEN: Soft, nontender, nondistended, normal active bowel sounds. EXTREMITIES: Normal range of motion. No edema. SKIN: Warm, dry, no rash. NEURO: Alert and oriented x3. No focal deficit. Moving all 4 limbs spontaneously PSYCH: Normal mood and affect. Course Course Emergency Course: 17:00 - Troponin is negative x2. EKG not concerning for ischemia. Heart score 3. Chemistries demonstrate mildly elevated glucose of 122 but is otherwise unremarkable. CBC unremarkable. CT PE negative. CT also demonstrates pericardial effusion that appears to be somewhat chronic. I suspect pleurisy versus pericarditis is the cause of the patient's pain. I had shared decision- making conversation the patient. She prefers to be discharged and follow up with her primary care provider. I discussed the findings and recommendations with the patient. Discussed return and emergency precautions including signs/symptoms of ACS and respiratory distress. The patient voiced understanding and agreement with the plan. All questions answered to her satisfaction. Vital Signs Vital signs: Vital Signs Temperature 98.1 F 12/24/24 11:48 Pulse Rate 95 12/24/24 11:48 Respiratory Rate 18 12/24/24 11:48 Blood Pressure 142/91 H 12/24/24 11:48 Pulse Oximetry 98 12/24/24 11:48 Temperature 98.1 F 12/24/24 11:48 Pulse Rate 107 H 12/24/24 15:31 Respiratory Rate 21 H 12/24/24 15:31 Blood Pressure 138/84 12/24/24 15:31 Pulse Oximetry 96 12/24/24 15:31 Oxygen Delivery Room Air 12/24/24 14:05 MDM - Chest Pain MDM Narrative Medical decision making narrative: Plan: Labs, EKG, troponin, imaging, CT PE study, reassess Differential Diagnosis Differential diagnosis: Likely pneumothorax, costochondritis and other ( ACS, pleurisy, PE, malignancy, metabolic abnormality, other) Lab Data 12/24/24 11:49 12/24/24 11:49 Labs: Lab Results 12/24/24 12/24/24 Range/Units 11:49 14:06 WBC 6.5 (4.5-10.0) K/mm3 RBC 4.29 (4.2-5.4) M/mm3 Hgb 9.3 L D (12.0-15.0) g/dL Hct 33.0 L (37.0-47.0) % MCV 76.9 L (80-100) fl MCH 21.7 L (26-34) pg MCHC 28.2 L (32-36) g/dl RDW 18.2 H (11.5-14.5) % Plt Count 283 (150-375) k/mm3 MPV 8.8 (7.4-10.4) fl Immature Gran % (Auto) 0.5 (0-0.5) % Neut % (Auto) 62.3 (45.5-73.1) % Lymph % (Auto) 27.3 (18.3-44.2) % [place]han % (Auto) 6.5 (2.6-8.5) % Eos % (Auto) 2.6 (0-4.4) % Baso % (Auto) 0.8 (0.2-1.2) % Lymph # (Auto) 1.77 (0.9-3.2) K/mm3 [place]han # (Auto) 0.4 (0.1-0.6) K/mm3 Eos # (Auto) 0.2 (0-0.3) K/mm3 Baso # (Auto) 0.1 (0.0-0.1) K/mm3 Abs Immat Gran (auto) 0.03 (0.00-0.031) K/mm3 Absolute Neuts (auto) 4.0 (1.3-6.7) K/mm3 Absolute Nucleated RBC 0.020 H (0.0-0.012) K/mm3 Nucleated RBC % 0.3 H (0.0-0.2) % Platelet Estimate Adequate (Adequate) Hypochromasia 1+ Anisocytosis 1+ Schistocytes None seen PT 12.6 (11.1-14.7) Seconds INR 0.9 APTT 24.3 (22.3-36.8) Seconds Sodium 139 (137-145) mmol/L Potassium 4.5 (3.4-5.0) mmol/L Chloride 106 (98-107) mmol/L Carbon Dioxide 19 L (22-30) mmol/L Anion Gap 14 H (4-12) mmol/L BUN 21 H (7-17) mg/dL Creatinine 0.79 (0.7-1.0) mg/dL Estim Creat Clear Calc 94 ml/min Estimated GFR > 60 (59 - ) Glucose 122 H (65-110) mg/dL Calcium 9.2 (8.4-10.2) mg/dL Total Bilirubin 0.6 (0.2-1.3) mg/dL AST 26 (14-36) U/L ALT 31 (6-35) U/L Alkaline Phosphatase 90 (38-126) U/L Troponin I < 0.012 < 0.012 (0.000-0.034) ng/mL Total Protein 8.0 (6.3-8.2) g/dL Albumin 4.4 (3.5-5.1) g/dL Lipase 107 (23-300) U/L ECG Data EKG #1: Attestation: I personally reviewed and interpreted this ECG as follows: ECG completion date: 12/24/24 ECG completion time: 11:32 Prior ECG tracings: not available for review Interpretation: sinus rhythm, rate 99, normal axis, no ST segment elevations concerning for ischemia, T-wave inversions in aVL, normal intervals with QTC of 442. EKG #2: Attestation: I personally reviewed and interpreted this ECG as follows: ECG completion date: 12/24/24 ECG completion time: 14:08 Prior ECG tracings: available for review Interpretation: Sinus tachycardia, rate 112, normal axis, no ST segment elevations concerning for ischemia, T-wave inversions in aVL, no or mole intervals with QTC of 400. Compared to EKG done at 11:32, tachycardia is new. Discharge Plan Discharge Clinical Impression: Chest pain, Tachycardia, Pericardial effusion Patient Disposition: Home, Self-Care Condition: Stable Instructions: Antibiotic Form, Chest Pain (ED) Additional Instructions: You were seen in the emergency department. Your labs are not concerning for injury to the heart. An EKG was not concerning for injury to the heart. A CT scan was not concerning for blood clot in the lungs. If you develop New or worsening chest pain, loss of consciousness, difficulty breathing, or if you have other emergent concerns for life, limb, or eyesight, return to the emergency department. Patient Language: Hebrew Prescriptions: No Action aspirin 81 mg tablet,delayed release (DR/EC) bupropion HCl 150 mg tablet extended release 24 hr PO cephalexin 500 mg capsule 500 mg PO Q12H 5 Days Qty: 10 0RF fluconazole 150 mg tablet 150 mg PO Q72H Qty: 2 0RF oxycodone 5 mg tablet 5 mg PO Q6H PRN (Reason: pain) Qty: 12 0RF losartan 100 mg Tablet 100 mg PO DAILY metformin 500 mg Tablet Extended Release 24 Hr 500 mg PO DAILY Patient Comments: States she usually takes only once a day insulin degludec [Tresiba FlexTouch U-200] 200 unit/mL (3 mL) insulin pen 40 unit SUBCUT HS albuterol sulfate [ProAir HFA] 90 mcg/actuation HFA aerosol inhaler 1 inh INHALATION PRN PRN (Reason: Shortness Of Breath) bupropion HCl [Wellbutrin SR] 150 mg Tablet Sustained-Release 12 Hr 150 mg PO DAILY dapagliflozin propanediol [Farxiga] 10 mg Tablet 10 mg PO DAILY rosuvastatin [Crestor] 10 mg Tablet 10 mg PO DAILY Patient Comments: Pt states she takes this at night valacyclovir 1 gram tablet 1,000 mg PO Q8H 10 Days Qty: 30 0RF hydrocodone-acetaminophen 5-325 mg tablet 1 tablet PO Q8H PRN (Reason: pain) Qty: 14 0RF valacyclovir [Valtrex] 500 mg tablet 500 mg PO BID 7 Days Qty: 14 6RF omeprazole 20 mg capsule,delayed release(DR/EC) See Rx Instructions .ROUTE .COMPLEX Qty: 30 12RF Dose Instruction: Take 1 capsule by mouth once daily Rx Instructions: Take 1 capsule by mouth once daily Follow-up/Referrals: Andrei Clark MD [Primary Care Provider] - 3 Days Stand Alone Forms: Work/School Release IP Time of Disposition: 17:30
== END 2024-12-24 17:46 | disposition home or self-care (01) ==
PROVIDERS: Family Medicine; Emergency Provider Preventive Medicine Aerospace Medicine; PCP Internal Medicine
DX: R07.9 Chest pain, unspecified (principal); R00.0 Tachycardia, unspecified; I31.39 Other pericardial effusion (noninflammatory); I12.9 Hypertensive chronic kidney disease with stage 1 through stage 4 chronic kidney disease, or unspecified chronic kidney disease; E11.22 Type 2 diabetes mellitus with diabetic chronic kidney disease; N18.9 Chronic kidney disease, unspecified; Z79.4 Long term (current) use of insulin; K21.9 Gastro-esophageal reflux disease without esophagitis; F41.9 Anxiety disorder, unspecified
CPT/HCPCS: 36415; 71046; 71275; 80053; 83690; 84484; 85025; 85610; 85730; 93005; 99284; A9270; Q9967

== ENCOUNTER 2025-01-10 14:26 | Observation (INO) | payer BC, SELFPAY ==
--- NOTE | ~2025-01-10 | CT_ITS ---
EXAMINATION: CT abdomen pelvis wo con DATE: 01/10/2025 16:27 INDICATION: Right flank pain. Right lower quadrant abdominal pain. TECHNIQUE: Computed tomography (CT) of the abdomen and pelvis was performed without intravenous contr ast. Automated exposure control and iterative reconstruction technique were employed. The dose-length product was 779.74 mGy-cm. COMPARISON: CT abdomen 03/07/2024 FINDINGS: The visualized portions of the lung bases are clear without pneumonia or pleural effusion. The heart size is normal. There is a small pericardial effusion. There is a small sliding hiatal ezequiel ia. There is diffuse hepatic steatosis. The spleen is normal. There are changes of cholecystectomy. T he pancreas and right adrenal gland are normal. There is a chronic 10 mm mass in left adrenal gland, likely an adenoma. There are cysts in the kidneys measuring up to 2.5 cm on the right. There is no ur olithiasis. There is diverticulosis of the colon without evidence of diverticulitis. The appendix is normal. There are no pathologically enlarged lymph nodes. There is no free intraperitoneal fluid. The re are fibroids in the uterus measuring up to 2.9 cm. There is mild thoracic and lumbar spondylosis. There is mild chronic anterior wedging of multiple thoracic vertebral bodies. IMPRESSION: 1. No urolithiasis. 2. Small sliding hiatal hernia. 3. Diffuse hepatic steatosis. 4. Uterine fibroids. Reviewed, dictated and finalized at location A. NG SILKS CUSTODIAN
--- NOTE | ~2025-01-10 | XR_ITS ---
EXAMINATION: XR chest 1V portable DATE: 01/11/2025 10:56 INDICATION: Shortness of breath TECHNIQUE: frontal view of the chest was obtained. COMPARISON: Chest radiograph and CT dated 12/24/2024 FINDINGS: Azygos lobe and fissure at the medial right upper lung zone. No focal airspace opacities, pulmonary e randy, pleural effusion or pneumothorax. The cardiomediastinal silhouette is normal. IMPRESSION: 1. No acute cardiopulmonary disease. Reviewed, dictated and finalized at location A. ERN ROOM WORKING SUPERVISOR
--- OUTSIDE RECORDS SUMMARY | 2025-01-10 14:29 | XMS_ITS ---
Author Organization [facility] Address [address] [place] [address] Care Team Providers Care Pouncing Machine Operator Name Role Phone Andrei Clark Primary Care Provider [phone] REASON FOR VISIT call back Social History Sex Assigned At : Social History Observation Description Sex Assigned At Female Encounters Encounter Location Date Provider Diagnosis [address] [place] [address] 01/01/2025 Andrei Clark Plan Of Treatment No Information Progress Notes * Kylee FIGUEROA RDOB:1985 (39 yo F)Acc No.[id number]:01/01/2025 Patient: Kylee HEATH :1985 A ge:39 Y S ex:Female Address:[address] [place], [address] * true * Date: Generated for Printi ng/Faxing/eTransmitting on: 0 01/10/2025 02:29 PM SECURITY ADVISOR
--- OUTSIDE RECORDS SUMMARY | 2025-01-10 14:30 | XMS_ITS | Clinical Summary ---
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 Pérez. Recs: 1. [facility] (she understands she needs to be the one to call) for CBT for FND, anxiety, depression. 2. Consider Valium after I discuss with Dr. Pérez. 3. Continue with psychiatry. 4. Start positive self talk and meditative exercises for spells . 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/2020 2:55 PM RECORD PRESS OPERATOR): She has abnormal involuntary movements including [...] video EEG (scheduled for next month at [facility]) to clarify whether any aspect of [...] complication, without long-term current use of insulin ([facility]) 04/04/2017 Polycystic ovaries 04/04/2017 Hypertensive chronic kidney disease 03/29/2017 Hematuria 03/29/2017 Polycystic kidney disease 03/29/2017 Stage 1 chronic kidney disease 03/29/2017 Right flank pain 10/21/2013 Pyelonephritis 10/19/2013 Immunizations Immunization Administration Dates Next Due Pneumococcal Polysaccharide PPV23 06/01/2019 Tetanus Toxoid, Unspecified 11/20/2004 Surgical History Surgery Date Site/Laterality Comments SECTION 11/20/2001 - 11/19/2002 CHOLECYSTECTOMY TUBAL LIGATION LUMBAR PUNCTURE WO INJECTION , DIAGNOSTIC 02/11/2019 N/A SECTION 11/20/2003 - 11/19/2004 Medical History Medical History Date Comments Diabetes mellitus (HCC) Renal disorder Polycystic ovarian disease DVT (deep venous thrombosis) ([facility]) (HCC) Idiopathic intracranial hypertension Polycystic kidney [...] on file Legal Sex Female 4:48 PM RECORD PRESS OPERATOR Gender Identity Not on file Sexual [...] 103 05/13/2024 9:21 AM CDT Temperature 36.9 C (98.4 F) 05/13/2024 9:21 AM CDT Respiratory Rate 18 05/13/2024 9:21 AM CDT [...] Diagnosis Comments EGFR Routine 10/17/2022 5:08 PM RECORD PRESS OPERATOR Cyst of left ovary HEMOGLOBIN A1C STAT 08/23/2019 5:28 PM CDT from Last 3 Months or Most Recently Relevant to Health Maintenance Results * (ABNORMAL) eGFR (10/17/2022 5:08 PM RECORD PRESS OPERATOR) eGFR 82(L) 90 - 130 mL/min/1. 73 m2 [facility] Comment: Interpretive Data Reference Interval Normal >/= 90 mL/min/1.73m2 Mildly decreased* 60 - 89 mL/min/1.73m2 Mildly to moderately decreased 45 - 59 mL/min/1.73m2 Moderately to severely decreased 30 - 44 mL/min/1.73m2 Severely decreased 15 - 29 mL/min/1.73m2 Kidney Failure < 15 mL/min/1.73m2 *Relative to young adult level Estimated glomerular [...] last reviewed 2021. Blood 10/17/2022 5:08 PM RECORD PRESS OPERATOR 10/17/2022 5:58 PM RECORD PRESS OPERATOR us Premal Elia Jackson MD LAB BLOOD ORDERABLES Fin al Result [facility] Department [place] [address] * (ABNORMAL) Hemoglobin A1c (08/23/2019 5:28 PM CDT) Hgb A1C 11.1(H) 4.0 - 5.6 % [facility] Estimated Average Glucose 272 mg/dL [facility] Comment: The ADA recommends reporting an estimated Average Glucose (eAG) with all Hemoglobin A1c results using the equation derived from a study of 507 normal and diabetic adults. Minority populations were underrepresented and children were not included. (Diabetes Care 31:2545-4058, 2008). The eAG is not equivalent to a fasting glucose. Blood specimen (specimen) 08/23/2019 5:28 PM CDT 08/23/2019 6:04 PM CDT us Notinfile Unknown LAB BLOOD ORDERABLES Final Res ult [facility] [address] [place] [address] from Last 3 Months or Most Recently Relevant to Health Maintenance Insurance [facility] Member Subscriber Plan / Payer (Ef fective 2019-Present) Name:Kylee Guo Relation to Subscriber:Self Name:Kylee Guo Payer ID:[id number] (NAIC) Group ID:[id number] Type:[employer] Address: [address] [facility] [employer] [facility] [employer] Advance Directives For more information, please contact: [phone] * Full Code (Latest Code Status on File) Date Activated Date Inactivated Comments 01/25/2021 9:49 AM 01/31/2021 8:38 PM * Full Code Date Activated Date Inactivated Comments 02/11/2019 4:38 PM 02/13/2019 11:05 AM Care Teams Professor Of Legal Studies Relationship Specialty Start Date End Date Andrei Clark MD PCP - General Internal Medicine 12/11/20 Kandace Freedman OT [address] [place] [address] Occupational Therapist Occupational Therapy 03/15/21 Christina Brunson MD [address] [place] [address] Obstetrics and Gynecology 08/02/22
--- OUTSIDE RECORDS SUMMARY | 2025-01-10 14:30 | XMS_ITS | Clinical Summary ---
Author Organization [facility] [employer] Address [address] [place] [address] Care Team Providers Care Administrative Services Coordinator Name Role Phone Azam Jackson APRN-FOREMAN OR SUPERVISOR AND OPERATOR Primary Care Provide r Source Comments [facility],non-owned Affiliates and Associated Physician Practices is amultiple site organization consisting of ambulatory clinics and hospital sitesin [place], [place], [place] and [place]. This disclosure is being madepursuant to the Care Everywhere program and may not contain all information available regarding this patient. Last updated 18.[facility] [employer] Allergies Active Allergy Reactions Criticality Noted Date Comments Prochlorperazine 10/19/2013 Ondansetron 10/19/2013 Promethazine Other Low 02/04/2019 Metoclopramide 10/19/2013 Medications * Be aware that medications may not be up to date on this document. Alwaysverify current medications with the patient. Medication Sig Dispensed Refills Start Date End Date Status metFORMIN (GLUCOPHAGE) 500 MG tablet Take 1 (one) tablet by mouth 2 times daily with morning and evening meal Has been off meds x2 years; usually [...] Gluc Sensor (FREESTYLE AYDEE 14 DAY SENSOR) [facility] 12/29/2020 Active FARXIGA 10 MG tablet TAKE 1 TABLET BY MOUTH ONCE DAILY IN THE MORNING FOR 90 DAYS 07/23/2021 Active TRULICITY 3 MG/0.5ML injection INJECT 1 SUB Q ONCE A WEEK IN THE MORNING 07/23/2021 Active ergocalciferol (DRISDOL) 1.25 MG (80643 UT) capsule Vitamin D2 1,250 mcg (50,000 [...] 50 MG tablet every 24 hours Active ProAir HFA 108 (90 Base) MCG/ACT inhaler Active fluconazole (Diflucan) 150 MG tablet TAKE 1 TABLET BY MOUTH EVERY 72 HOURS Active losartan (Cozaar) 100 MG tablet Take 1 (one) tablet by mouth once daily Active omeprazole (PriLOSEC) 20 MG capsule 02/27/2024 Active valACYclovir (Valtrex) 500 MG tablet TAKE 1 TABLET BY MOUTH TWICE DAILY FOR 7 DAYS (NEEDS APPT FOR FURTHER REFILLS) Active Active Problems Problem Noted Date Diagnosed [...] flank pain 10/21/2013 Pyelonephritis 10/19/2013 Overview (08/20/2015): Encounters Date Type Department Care Team Description 01/06/2025 12:00 PM SPECIALIST EMPLOYEE LABOR RELATIONS Video Visit [facility] [address], [address] [place] [address] Morbid obesity (HCC) 01/06/2025 Travel 01/01/2025 Travel 12/27/2024 1:00 PM SPECIALIST EMPLOYEE LABOR RELATIONS Office Visit [facility] Weight Management [facility] [address] [facility] [address] [place] [address] Chin Mcleod MD Morbid obesity (HCC) (Primary Dx); Controlled type 2 diabetes mellitus without complication, without long-term current use of insulin (HCC); Benign hypertension; Preop testing from Last 3 Months Family History Medical History Relation Name Comments Diabetes - Type 2 Father Heart Failure Father High Blood Pressure Father Cancer Maternal Grandmother Diabetes - Type 2 Paternal Grandfather High Blood Pressure Paternal Grandfather Seizures Sister Relation Name Status Comments Father Alive Maternal Grandmother Mother Alive Paternal Grandfather Sister Social History Tobacco Use Types Packs/Day Years Used Date Smoking Tobacco: Former Cigarettes Q uit: 06/30/2020 Smokeless Tobacco: Never Tobacco Cessation:Counseling Given: Not Answered Alcohol Use Standard Drinks/Week Comments No 0 (1 standard drink = 0.6 oz pur e alcohol) Sex and Gender Information Value Date Recorded Sex Assigned at Not on file Gender Identity Not on file Sexual Orientation Not on file Last Filed Vital Signs Vital Sign Reading Time Taken Comments Blood Pressure 165/85 12/27/2024 12:43 PM SPECIALIST EMPLOYEE LABOR RELATIONS Pulse 107 12/27/2024 12:43 PM SPECIALIST EMPLOYEE LABOR RELATIONS Temperature 36.8 C (98.2 F) 11/28/2020 10:01 PM SPECIALIST EMPLOYEE LABOR RELATIONS Respiratory Rate 17 11/28/2020 10:01 PM SPECIALIST EMPLOYEE LABOR RELATIONS Oxygen Saturation 97% 12/27/2024 12:43 PM SPECIALIST EMPLOYEE LABOR RELATIONS Inhaled Oxygen Concentration - - Weight 103 kg (227 lb) 12/27/2024 12:43 PM SPECIALIST EMPLOYEE LABOR RELATIONS Height 162.6 cm (5' 4 ) 12/27/2024 12:43 PM SPECIALIST EMPLOYEE LABOR RELATIONS Body Mass Index 38.96 12/27/2024 12:43 PM SPECIALIST EMPLOYEE LABOR RELATIONS Plan of Treatment Upcoming Encounters Date Type Department Care Team (Late st Contact Info) Description 01/16/2025 8:15 AM SPECIALIST EMPLOYEE LABOR RELATIONS Clinical Support [facility] Health Weight Management Services [address] [facility] [address] [place] [address] 01/16/2025 10:00 AM SPECIALIST EMPLOYEE LABOR RELATIONS Appointment [facility] Imaging Services - Radiology [address] [place] [address] [place] [address] [place] [address] Health Maintenance Due Date Last [...] 08/12/2020, Additional history exists COVID-19 VACCINE ( - season) 2024 INFLUENZA VACCINE (#1) 2024 DEPRESSION [...] LAB - POINT OF CAR E ORDERABLES [facility] POCT TESTING [address] [phone] from Last 3 Months or Most Recently Relevant to Health Maintenance Care Teams Administrative Services Coordinator Relationship Specialty Start Date End Date Azam Jackson, STORE ASSOCIATE-FOREMAN OR SUPERVISOR AND OPERATOR [address] [place] [address] PCP - General Nurse Practitioner Gerontology 11/28/20
--- OUTSIDE RECORDS SUMMARY | 2025-01-10 14:30 | XMS_ITS | Referral Summary ---
Author Organization [facility] [address] Address [address] [place] [address] Care Team Providers Care News Clipping Cutter Name Role Phone nAdrei Clark MD Primary Care Provider [phone] Kandace Freedman OT Unavailable [phone] Christina Brunson MD Unavailable [phone] Allergies Active Allergy Reactions Criticality Noted Date [...] mellitus 03/31/2022 Atherosclerotic heart diseas e of [place] coronary artery without angina pectoris 12/31/2020 Unspecified [...] this with Dr. Pérez. Recs: 1. [facility] (she understands she needs to be the one to call) for CBT for FND, anxiety, depression. 2. Consider Valium after I discuss with Dr. Pérez. 3. Continue with psychiatry. 4. Start positive self talk and meditative exercises for spells . 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/2020 2:55 PM MEDICAL RESEARCH SCIENTIST): She has abnormal involuntary movements including vocalizations, [...] EEG (scheduled for next month at [facility]) to clarify whether any aspect of [...] complication, without long-term current use of insulin ([facility]) 04/04/2017 Polycystic ovaries 04/04/2017 Hypertensive [...] on file Legal Sex Female 4:48 PM MEDICAL RESEARCH SCIENTIST Gender Identity Not on file Sexual Orientation [...] Diagnosis Comments EGFR Routine 10/17/2022 5:08 PM MEDICAL RESEARCH SCIENTIST Cyst of left ovary HEMOGLOBIN A1C STAT 08/23/2019 5:28 PM CDT from Last 3 Months or Most Recently Relevant to Health Maintenance Results * (ABNORMAL) eGFR (10/17/2022 5:08 PM MEDICAL RESEARCH SCIENTIST) eGFR 82(L) 90 - 130 mL/min/1. 73 [...] last reviewed 2021. Blood 10/17/2022 5:08 PM MEDICAL RESEARCH SCIENTIST 10/17/2022 5:58 PM MEDICAL RESEARCH SCIENTIST us Premal Elia Jackson MD LAB BLOOD ORDERABLES Fin al Result [facility] Department [place] [address] * (ABNORMAL) Hemoglobin A1c (08/23/2019 5:28 PM CDT) Hgb A1C 11.1(H) 4.0 - 5.6 % [facility]CI[facility] SAM Estimated Average Glucose 272 mg/dL [facility]CIEN SAM Comment: The ADA recommends reporting an estimated Average Glucose (eAG) with all Hemoglobin A1c results using the equation derived from a study of 507 normal and diabetic adults. Minority populations were underrepresented and children were not included. (Diabetes Care 31:0529-0488, 2008). The eAG is not equivalent to a fasting glucose. Blood specimen (specimen) 08/23/2019 5:28 PM CDT 08/23/2019 6:04 PM CDT us Notinfile Unknown LAB BLOOD ORDERABLES Final Res ult [facility] [address] [place] [address] from Last 3 Months or Most Recently Relevant to Health Maintenance Insurance [facility] Member Subscriber Plan / Payer (Ef fective 2019-Present) Name:Kylee Guo Relation to Subscriber:Self Name:Kylee Guo Payer ID:[id number] (NAIC) Group ID:[id number] Type:[employer] Address: [address] [facility] [employer] [facility] [employer] Advance Directives For more information, please contact: [phone] * Full Code (Latest Code Status on File) Date Activated Date Inactivated Comments 01/25/2021 9:49 AM 01/31/2021 8:38 PM * Full Code Date Activated Date Inactivated Comments 02/11/2019 4:38 PM 02/13/2019 11:05 AM Care Teams News Clipping Cutter Relationship Specialty Start Date End Date Andrei Clark MD PCP - General Internal Medicine 12/11/20 Kandace Freedman OT [address] [place] [address] Occupational Therapist Occupational Therapy 03/15/21 Christina Brunson MD [address] [place] [address] Obstetrics and Gynecology 08/02/22
--- OUTSIDE RECORDS SUMMARY | 2025-01-10 14:30 | XMS_ITS | Patient Health Summary ---
Author Organization [facility] Address [address] [place] [address] Care Team Providers Care [facility] Counselor Name Role Phone Azam Jackson APRN-SPEECH AND LANGUAGE CLINICIAN Primary Care Provide r Note from [facility],non-owned Affiliates and Associated Physician Practices is amultiple site organization consisting of ambulatory clinics and hospital sitesin [place], [place], [place] and [place]. This disclosure is being madepursuant to the Care Everywhere program and may not contain all information available regarding this patient. Last updated 18.[facility] Allergies * Prochlorperazine * Ondansetron * Promethazine(Other) -Low Criticality * Metoclopramide Medications * Be aware that medications may not be up to date on this document. Alwaysverify current medications with the patient. * metFORMIN (GLUCOPHAGE) 500 MG tablet Take 1 [...] Gluc Sensor (FREESTYLE AYDEE 14 DAY SENSOR) [facility](Started 12/29/2020) * FARXIGA 10 MG tablet(Started 07/23/2021) TAKE 1 TABLET BY MOUTH ONCE DAILY IN THE MORNING FOR 90 DAYS * TRULICITY 3 MG/0.5ML injection(Started 07/23/2021) INJECT 1 SUB Q ONCE A WEEK IN THE MORNING * ergocalciferol (DRISDOL) 1.25 MG (93506 UT) capsule Vitamin D2 1,250 mcg (50,000 unit) capsule * fenofibrate (LOFIBRA) 160 MG tablet(Started 05/20/2021) TAKE 1 TABLET BY MOUTH ONCE DAILY AT BEDTIME FOR 30 DAYS * fluticasone propionate (FLONASE) 50 MCG/ACT nasal spray fluticasone propionate 50 mcg/actuation nasal spray,suspension * glimepiride (AMARYL) 1 MG tablet(Started 02/14/2021) TAKE 2 TABLETS BY MOUTH TWICE DAILY BEFORE MEAL(S) * Creation TechnologiesTOUCH ULTRA test strip(Started 2021) USE A TEST [...] (REVIA) 50 MG tablet every 24 hours * ProAir HFA 108 (90 Base) MCG/ACT inhaler * fluconazole (Diflucan) 150 MG tablet TAKE 1 TABLET BY MOUTH EVERY 72 HOURS * losartan (Cozaar) 100 MG tablet Take 1 (one) tablet by mouth once daily * omeprazole (PriLOSEC) 20 MG capsule(Started 02/27/2024) * valACYclovir (Valtrex) 500 MG tablet TAKE 1 TABLET BY MOUTH TWICE DAILY FOR 7 DAYS (NEEDS APPT FOR FURTHER REFILLS) Active Problems Problem Noted Date Diagnosed Date [...] Comments Blood Pressure 165/85 12/27/2024 12:43 PM STUDENT SERVICES ADVISOR Pulse 107 12/27/2024 12:43 PM STUDENT SERVICES ADVISOR Temperature 36.8 C (98.2 F) 11/28/2020 10:01 PM STUDENT SERVICES ADVISOR Respiratory Rate 17 11/28/2020 10:01 PM STUDENT SERVICES ADVISOR Oxygen Saturation 97% 12/27/2024 12:43 PM STUDENT SERVICES ADVISOR Inhaled Oxygen Concentration - - Weight 103 kg (227 lb) 12/27/2024 12:43 PM STUDENT SERVICES ADVISOR Height 162.6 cm (5' 4 ) 12/27/2024 12:43 PM STUDENT SERVICES ADVISOR Body Mass Index 38.96 12/27/2024 12:43 PM STUDENT SERVICES ADVISOR Procedures * MRI KIDNEYS WWO CONTRAST(Performed 08/11/2021) [...] CDT Impressions 08/11/2021 12:45 PM CDT 1. Incidental proteinaceous cyst in the right [...] is normal. The lung bases are clear. Procedure Note Juan [...] of2 resultswithin the time period is included. Pathologist [facility] [place] Creatinine POCT 1.15 0.7 - 1.2 mg/dL [facility] POCT TESTING QC Verified Yes Yes [facility] POC T TESTING Blood BLOOD SPECIMEN / Unknown 08/11/2021 11:57 AM CDT Trevon Monique MD LAB - POINT OF CAR E ORDERABLES Performing Organization Address [facility] Co de Phone Number [facility] POCT TESTING [address] [place] [address] * PROLACTIN (11/28/2020 6:50 PM STUDENT SERVICES ADVISOR) [facility] Prolactin 4.4 2.8 - 26.0 ng/mL 12/01/2020 3:19 PM STUDENT SERVICES ADVISOR [facility] ([facility]) Comment: REFERENCE INTERVAL: Prolactin Access complete set of age- and/or gender-specific reference intervals for this test in the [employer] Laboratory Test Directory ([employer]). Performed By: [facility] [address] [place] [address] Template Maker: Geraldine Mehta MD Blood BLOOD SPECIMEN / Unknown Venipuncture / Unknown 11/28/2020 6:50 PM STUDENT SERVICES ADVISOR 11/28/2020 6:15 PM STUDENT SERVICES ADVISOR Tomy Jeffrey MD LAB - CHEMISTRY ORDE LLUVIA [facility]) [address] [place] [address] * (ABNORMAL) CBC W AUTO DIFFERENTIAL (11/28/2020 6:50 PM STUDENT SERVICES ADVISOR) Only the most recent of3 resultswithin the time period is included. Pathologist [facility] WBC 11.4(H) 3.5 - 10.5 10 3/uL 11/28/2020 7:02 PM STUDENT SERVICES ADVISOR [facility] RBC 4.22 3.90 - 5.00 10 6/uL 11/28/2020 7:02 PM [facility] Hemoglobin 11.8(L) 12.0 - 15.5 g/dL 11/28/2020 7:02 PM [facility] Hematocrit 35.7 35.0 - 45.0 % 11/28/2020 7:02 PM [facility] MCV 84.6 81.0 - 97.0 fL 11/28/2020 7:02 PM [facility] MCH 28.0 28.0 - 34.0 pg 11/28/2020 7:02 PM [facility] MCHC 33.1 32.0 - 36.0 g/dL 11/28/2020 7:02 PM [facility] Platelet Count 314 150 - 400 10 3/uL 11/28/2020 7:02 PM [facility] RDW-SD 42.0 36.0 - 50.0 fL 11/28/2020 7:02 PM [facility] RDW-CV 13.8 11.2 - 14.8 % 11/28/2020 7:02 PM [facility] MPV 8.2(L) 9.3 - 12.8 fL 11/28/2020 7:02 PM [facility] nRBC Absolute 0.00 0 10 3/uL 11/28/2020 7:02 PM [facility] nRBC Auto 0.0 0 /100 WBC 11/28/2020 7:02 PM [facility] Neutrophils % 60.7 35.0 - 70.0 % 11/28/2020 7:02 PM [facility] Lymphocytes % 30.8 19.7 - 55.1 % 11/28/2020 7:02 PM [facility] Monocytes % 5.4 3.0 - 15.0 % 11/28/2020 7:02 PM [facility] Eosinophils % 2.2 0.0 - 6.0 % 11/28/2020 7:02 PM [facility] Basophil % 0.4 0.0 - 1.5 % 11/28/2020 7:02 PM [facility] Neutrophils Absolute 6.9 1.6 - 7.0 10 3/uL 11/28/2020 7:02 PM [facility] Lymphocyte Absolute 3.5(H) 0.8 - 2.9 10 3/uL 11/28/2020 7:02 PM [facility] Monocytes Absolute 0.62 0.14 - 0.66 10 3/uL 11/28/2020 7:02 PM [facility] Eosinophils Absolute 0.25 0.00 - 0.45 10 3/uL 11/28/2020 7:02 PM [facility] Basophils Absolute 0.04 0.00 - 0.06 10 3/uL 11/28/2020 7:02 PM [facility] Immature Granulocytes % 0.5 0.0 - 1.0 % 11/28/2020 7:02 PM [facility] Blood BLOOD SPECIMEN / Unknown Venipuncture / Unknown 11/28/2020 6:50 PM STUDENT SERVICES ADVISOR 11/28/2020 6:15 PM STUDENT SERVICES ADVISOR Tomy Jeffrey MD LAB - HEMATOLOGY ORD ERABLES [facility] [address] [place] [phone] [phone] * (ABNORMAL) BLOOD GASES SAURABH (11/28/2020 6:50 PM STUDENT SERVICES ADVISOR) pH Mixed Venous 7.42(H) 7.30 - 7.40 11/28/2020 6:59 PM [facility] pCO2 Mixed Venous 39(L) 40 - 46 mmHg 11/28/2020 6:59 PM [facility] pO2 Mixed Venous 20(L) 35 - 42 mmHg 11/28/2020 6:59 PM [facility] HCO3 Mixed Venous 25.1 22.0 - 26.0 mmol/L 11/28/2020 6:59 PM [facility] TCO2 Mixed Venous 26.3 25.0 - 29.0 mmol/L 11/28/2020 6:59 PM [facility] Base Excess Venous 0.7 -2.0 - 2.0 mmol/L 11/28/2020 6:59 PM [facility] Hemoglobin Mixed Venous 11.2(L) 12.0 - 15.5 g/dL 11/28/2020 6:59 PM [facility] Oxyhemoglobin Mixed Venous 31.5(L) 66.0 - 77.0 % 11/28/2020 6:59 PM [facility] Carboxyhemoglobin Venous 0.3 0.0 - 3.0 % 11/28/2020 6:59 PM [facility] Methemoglobin 1.4 0.0 - 2.0 % 11/28/2020 6:59 PM [facility] FI O2 Mixed Venous 21.0 % 2020 6:59 PM [facility] Blood BLOOD SPECIMEN / Unknown Venipuncture / Unknown 11/28/2020 6:50 PM STUDENT SERVICES ADVISOR 11/28/2020 6:54 PM STUDENT SERVICES ADVISOR Tomy Jeffrey MD LAB - BLOOD GASES OR DERABLES [facility] [address] [place] [phone], [facility] [phone] * (ABNORMAL) COMPREHENSIVE METABOLIC PANEL (11/28/2020 6:50 PM STUDENT SERVICES ADVISOR) Only the most recent of3 resultswithin the time period is included. BUN 17 7 - 26 mg/dL 11/28/2020 7:23 PM [facility] Creatinine 0.7 0.6 - 1.2 mg/dL 11/28/2020 7:23 PM [facility] Sodium 137 136 - 145 mmol/L 11/28/2020 7:23 PM [facility] Potassium 3.8 3.5 - 4.5 mmol/L 11/28/2020 7:23 PM [facility] Chloride 99 98 - 107 mmol/L 11/28/2020 7:23 PM [facility] CO2 22 22 - 29 mmol/L 11/28/2020 7:23 PM [facility] Glucose 85 70 - 115 mg/dL 11/28/2020 7:23 PM [facility] Calcium 9.8 8.4 - 10.2 mg/dL 11/28/2020 7:23 PM [facility] Protein Total 8.1 6.0 - 8.3 g/dL 11/28/2020 7:23 PM [facility] Albumin 3.8 3.4 - 5.0 g/dL 11/28/2020 7:23 PM [facility] Bilirubin Total 0.3 0.2 - 1.2 mg/dL 11/28/2020 7:23 PM [facility] Alkaline Phosphatase 74 40 - 150 Units/L 11/28/2020 7:23 PM [facility] ALT 28 0 - 55 Units/L 11/28/2020 7:23 PM [facility] AST 26 5 - 34 Units/L 11/28/2020 7:23 PM [facility] Anion Gap 20(H) 8 - 18 11/28/2020 7:23 PM [facility] BUN/Creatinine Ratio 24(H) 7 - 23 11/28/2020 7:23 PM [facility] Osmolality Calculated 285 270 - 300 mOsm/kg 11/28/2020 7:23 PM [facility] Albumin/Globulin Ratio 0.9(L) 1.1 - 2.3 11/28/2020 7:23 PM [facility] eGFR >60 >60 mL/min/1.7 3 m2 11/28/2020 7:23 PM [facility] Blood BLOOD SPECIMEN / Unknown Venipuncture / Unknown 11/28/2020 6:50 PM STUDENT SERVICES ADVISOR 11/28/2020 6:15 PM [facility] Tomy Jeffrey MD LAB - CHEMISTRY MARCEL TEIXEIRA [facility] Organization Address [facility]/State/[facility] Co de Phone Number [address] [phone] [phone] * HCG BETA BLOOD QUANTITATIVE (11/28/2020 6:50 PM STUDENT SERVICES ADVISOR) Beta-hCG Total Quantitative <3 <5 mIU/mL 11/28/2020 7:39 PM [facility] Comment: This assay is cleared for use in the early detection of only. It is not approved for any other uses such as tumor marker screening, tumor marker monitoring, etc. and should not be used for any other purposes. HCG Numeric Result Interpretation: Non- Females: < 5 mIU/mL Post-Menopausal Females: < 7 mIU/mL Blood BLOOD SPECIMEN / Unknown Venipuncture / Unknown 11/28/2020 6:50 PM STUDENT SERVICES ADVISOR 11/28/2020 6:15 PM STUDENT SERVICES ADVISOR Tomy Jeffrey MD LAB - CHEMISTRY MARCEL TEIXEIRA Performing Organization Address City/[facility]/ZIP Co de Phone Number [address] [phone], [facility] [phone] * PHOSPHORUS BLOOD (11/28/2020 6:50 PM STUDENT SERVICES ADVISOR) Phosphorus 3.7 2.3 - 4.7 mg/dL 11/28/2020 7:23 PM STUDENT SERVICES ADVISOR [facility] Blood BLOOD SPECIMEN / Unknown Venipuncture / Unknown 11/28/2020 6:50 PM STUDENT SERVICES ADVISOR 11/28/2020 6:15 PM STUDENT SERVICES ADVISOR Tomy Jeffrey MD LAB - CHEMISTRY MARCEL TEIXEIRA Performing Organization Address City/[facility]/ZIP Co de Phone Number [address] [address], [place] [phone] * MAGNESIUM BLOOD (11/28/2020 6:50 PM STUDENT SERVICES ADVISOR) Magnesium 1.9 1.6 - 2.6 mg/dL 11/28/2020 7:23 PM STUDENT SERVICES ADVISOR [facility] Blood BLOOD SPECIMEN / Unknown Venipuncture / Unknown 11/28/2020 6:50 PM STUDENT SERVICES ADVISOR 11/28/2020 6:15 PM STUDENT SERVICES ADVISOR Tomy Jeffrey MD LAB - CHEMISTRY MARCEL TEIXEIRA Performing Organization Address City/[facility]/ZIP Co de Phone Number [address] [phone], [facility] [phone] * ALCOHOL ETHYL BLOOD (11/28/2020 6:50 PM STUDENT SERVICES ADVISOR) Interpretation Ethanol None Detected None Detected mg/dL 11/28/2020 7:23 PM STUDENT SERVICES ADVISOR [facility] Comment:Ethanol levels less than 10 mg/dL are resulted as None detected . Blood BLOOD SPECIMEN / Unknown Venipuncture / Unknown 11/28/2020 6:50 PM STUDENT SERVICES ADVISOR 11/28/2020 6:15 PM STUDENT SERVICES ADVISOR Tomy Jeffrey MD LAB - CHEMISTRY MARCEL TEIXEIRA Performing Organization Address City/[facility]/ZIP Co de Phone Number [address] [phone], [facility] [phone] * TSH (11/28/2020 6:50 PM STUDENT SERVICES ADVISOR) Pathologist [facility] TSH 1.087 0.350 - 4.940 uIU/mL 11/28/2020 7:39 PM STUDENT SERVICES ADVISOR [facility] Blood BLOOD SPECIMEN / Unknown Venipuncture / Unknown 11/28/2020 6:50 PM STUDENT SERVICES ADVISOR 11/28/2020 6:15 PM STUDENT SERVICES ADVISOR Tomy Jeffrey MD LAB - CHEMISTRY MARCEL TEIXEIRA Performing Organization Address [facility]/ZIP Co de Phone Number [address] [phone], [facility] [phone] * ACETAMINOPHEN LEVEL (11/28/2020 6:50 PM STUDENT SERVICES ADVISOR) [facility] Acetaminophen <3.0 <30.0 mcg/mL 11/28/2020 7:23 PM STUDENT SERVICES ADVISOR [facility] Blood BLOOD SPECIMEN / Unknown Venipuncture / Unknown 11/28/2020 6:50 PM STUDENT SERVICES ADVISOR 11/28/2020 6:15 PM STUDENT SERVICES ADVISOR Tomy Jeffrey MD LAB - CHEMISTRY MARCEL TEIXEIRA Performing Organization Address [facility] Co de Phone Number [address] [phone], [facility] [phone] * GLUCOSE - POINT OF CARE (11/28/2020 6:44 PM STUDENT SERVICES ADVISOR) Only the most recent of2 resultswithin the time period is included. Pathologist [facility] Glucose WB/POC 86 70 - 115 mg/dL 11/28/2020 6:54 PM STUDENT SERVICES ADVISOR [facility] Specimen Type Arterial/C apillary 11/28/2020 6:54 PM STUDENT SERVICES ADVISOR [facility] Blood BLOOD SPECIMEN / Unknown 11/28/2020 6:44 PM STUDENT SERVICES ADVISOR 11/28/2020 6:54 PM STUDENT SERVICES ADVISOR Dario Aponte MD LAB - POINT OF CARE ORDERABLES Performing Organization Address City/State/[facility] Co de Phone Number [facility] [address] [place] [address], [facility] [phone] * CT HEAD WO CONTRAST (11/28/2020 4:30 PM STUDENT SERVICES ADVISOR) Anatomical Region Laterality Modality Head Computed Tomogra phy 11/28/2020 4:59 PM STUDENT SERVICES ADVISOR Impressions 11/29/2020 8:52 AM STUDENT SERVICES ADVISOR IMPRESSION: Normal examination of the brain. No acute intracranial hemorrhage, midline shift, or significant mass effect. Dictated by Anibal Sky MD (Machine Plug Shaper) I, Dr. AJAY BAJWA have personally reviewed and interpreted this examination/study. This report was electronically signed by AJAY BAJWA on 11/29/2020 8:52 AM . Narrative 11/29/2020 8:[address] HEAD WITHOUT CONTRAST, 11/28/2020 4:30 PM [...] mass effect. Dictated by Anibal Sky MD (Machine Plug Shaper) I, Dr. AJAY BAJWA have personally reviewed [...] further evaluation. Left message with the ED youth program director that the prelim is available in [employer]. Dictated by Sergio Navas MD (residential manager). This report was approved by Sergio Navas on 02/28/2017 11:28 AM . I, Dr. TRENTON LUIS M.D. have personally reviewed and interpreted this examination/study. This report was electronically signed by TRENTON LUIS M.D. on 02/28/2017 3:29 PM . Narrative 02/28/2017 3:29 [...] for furtherevaluation. Left message with the ED youth program director that the prelim is available inSynapse. Dictated by Sergio Navas MD (residential manager). This report was approved by Sergio Navas [...] pulmonary process. Dictated by Chin Aguilera MD (residential manager). This report was approved by Chin Aguilera M.D. on 02/28/2017 9:[address] CHAYITO Sanderson M.D. have personally reviewed and interpreted this examination/study. This report was electronically signed by CHAYITO MCPHERSON M.D. on 02/28/2017 9:28 AM . Narrative 02/28/2017 9:28 [...] pulmonary process. Dictated by Chin Aguilera MD (residential manager). This report was approved by Chin Aguilera M.D. on 02/28/2017 9:[address] CHAYITO Sanderson M.D. have personally reviewed and interpreted thisexamination/study. This report was electronically signed by CHAYITO MCPHERSON M.D. on 02/28/20179:28 AM . Charisse Leyva MD DIAGNOSTIC IMAGING O RDERABLES * HCG URINE QUALITATIVE - POCT (IP) [facility] (02/28/2017 12:35 AM CDT) Test Urine negative [facility] Urine specimen (specimen) 02/28/2017 12:35 AM CDT Charisse Leyva MD LAB - POINT OF CARE ORDERABLES [facility] * (ABNORMAL) URINALYSIS W/MICROSCOPIC NO CULTURE (02/28/2017 12:33 AM CDT) Color UA Yellow Straw, Yellow, Colorless, Light Yellow [facility] Clarity UA Clear Clear [facility] Specific Palmer UA 1.030 1.001 - 1.030 [facility] pH UA 5.5 5.0 - 8.0 [facility] Protein UA 20 <=20 mg/dL [facility] Glucose UA >1000(A) Negative mg/dL [facility] Ketone UA Trace(A) Negative mg/dL [facility] Bilirubin UA Negative Negative mg/dL [facility] Blood UA Negative Negative [facility] Nitrite UA Negative Negative [facility] Leukocyte Esterase Negative Negative [facility] Urobilinogen UA <2.0 <2.0 mg/dL [facility] RBC UA 4 0 - 8 /HPF [facility] WBC UA 1 0 - 2 /HPF [facility] Squamous Epithelial Cells UA 7(H) 0 - 1 /HPF [facility] Mucus UA Rare(A) None /LPF [facility] Urine specimen (specimen) 02/28/2017 12:33 AM CDT 02/28/2017 12:53 AM CDT Charisse Leyva MD LAB - URINALYSIS ORD ERABLES [address] [phone] * LIPASE BLOOD (02/28/2017 12:29 AM CDT) Pathologist [facility] Lipase 38 8 - 78 Units/L [facility] Blood specimen (specimen) BLOOD SPECIMEN / Unknown 02/28/2017 12:29 AM CDT 02/28/2017 12:52 AM CDT Charisse Leyva MD LAB - CHEMISTRY ORDE RABYAMIL Performing Organization Address City/[facility]/ZIP Co de Phone Number [address] [phone] * (ABNORMAL) CBC W/O DIFFERENTIAL (02/28/2017 12:29 AM CDT) WBC 7.8 3.5 - 10.5 10 3/uL [facility] RBC 4.33 3.90 - 5.00 10 6/uL [facility] Hemoglobin 11.6(L) 12.0 - 15.5 g/dL [facility] Hematocrit 35.4 35.0 - 45.0 % [facility] MCV 81.8 81.0 - 97.0 fL [facility] MCH 26.8(L) 28.0 - 34.0 pg [facility] MCHC 32.8 32.0 - 36.0 g/dL [facility] Platelet Count 250 150 - 400 10 3/uL [facility] RDW-SD 41.6 36.0 - 50.0 fL [facility] RDW-CV 13.9 11.2 - 14.8 % [facility] MPV 9.0(L) 9.3 - 12.8 fL [facility] nRBC Absolute 0.00 0 10 3/uL [facility] nRBC Auto 0.0 0 /100 WBC [facility] Blood specimen (specimen) BLOOD SPECIMEN / Unknown 02/28/2017 12:29 AM CDT 02/28/2017 12:52 AM CDT Charisse Leyva MD LAB - HEMATOLOGY ORD ERABLES Performing Organization Address City/State/[facility] Co de Phone Number [address] [phone] * D-DIMER (02/28/2017 12:29 AM CDT) D-Dimer Quantitative <0.27 <=0.50 mcg/mL FEU [facility] Comment: In the absence of clinical symptoms, a value less than or equal to 0.5 mcg/mL FEU significantly decreases the probability of PE/DVT (negative predictive value >95%). 1 mcg/mL FEU = 1 Fibrinogen Equivalent Unit (approximates 0.5 mcg/ml of D- Dimer). ISTH DIAGNOSTIC SCORING SYSTEM FOR DIC Score 0 1 2 3 Platelet Count(x10^3/uL) > 100 < 100 < 50 N/A PT Prolongation above upper limit of normal 0-3 3-6 > 6 N/A range (seconds) Fibrinogen (mg/dL) > 100 < 100 N/A N/A D-Dimer (mcg/mL FEU) < 0.50 N/A 0.50-5.0 > 5 Calculate Cumulative Score: > or = 5 :compatible with overt DIC < 5 :suggestive for non-overt DIC N/A = Non applicable Reference: Br. J. Haematol. 145:24-33,2009. Blood specimen (specimen) BLOOD SPECIMEN / Unknown 02/28/2017 12:29 AM CDT 02/28/2017 12:52 AM CDT Charisse Leyva MD LAB - COAGULATION OR DERABLES [facility] [address] [phone] * EKG 12-LEAD (02/27/2017 12:00 AM CDT) EKG [facility] Comment: Exam Date/Time: Feb 27 2017 21:18:53 Test Reason : chest pain Blood Pressure : / mmHG Vent. Rate : 110 BPM Atrial Rate : 110 BPM P-R Int : 152 ms QRS Dur : 078 ms QT Int : 354 ms P-R-T Axes : 049 029 059 degrees QTc Int : 479 ms Sinus tachycardia Otherwise normal ECG No previous ECGs available Confirmed by MD Pao, Hanane ([id number]), book editor CHRISTINA HASSAN ([id number]) on 03/06/2017 7:00:51 PM Referred By: REFERRING NO Confirmed By:Hanane Cedeno MD 02/27/2017 Charisse Leyva MD ECG ORDERABLES Performing Organization Address City/[facility]/ZIP Co de Phone Number [facility] * HCG URINE QUALITATIVE - POINT OF CARE (IP) (08/14/2014 2:11 AM CDT) Only the most recent of2 resultswithin the time period is included. Pathologist [facility] HCG Qual Urine Negative Negative [facility] POCT TESTING QC Verified Yes Yes [facility] POC T TESTING Urine specimen (specimen) URINE / Unknown 08/14/2014 2:11 AM CDT Paco Gore MD LAB - POINT OF CARE ORDERABLES Performing Organization Address City/[facility]/ZIP Co de Phone Number [facility] POCT TESTING [facility] [place], [place] [id number] [place] [address] * (ABNORMAL) URINALYSIS ROUTINE W/REFLEX TO CULTURE (08/14/2014 2:10 AM CDT) Only the most recent of2 resultswithin the time period is included. Color UA Yellow Straw, Yellow, Dark Yellow 08/14/2014 2:25 AM CDT [facility] Clarity UA Clear 08/14/2014 2:25 AM [facility] Specific Palmer UA 1.015 1.005 - 1.030 08/14/2014 2:25 AM [facility] pH UA 6.0 5.0 - 8.0 pH 08/14/2014 2:25 AM [facility] Protein UA Trace(A) Negative 08/14/2014 2:25 AM [facility] Blood UA Trace(A) Negative 08/14/2014 2:25 AM [facility] Leukocyte UA Negative Negative 08/14/2014 2:25 AM [facility] Nitrite UA Negative Negative 08/14/2014 2:25 AM [facility] Glucose UA 3+(A) Negative 08/14/2014 2:25 AM [facility] Ketone UA Negative Negative 08/14/2014 2:25 AM [facility] Bilirubin UA Negative Negative 08/14/2014 2:25 AM [facility] Urobilinogen UA 0.2 0.1 - 1.0 EU/dL 08/14/2014 2:25 AM [facility] WBC UA Auto 5-10(A) 0-2, 2-5 #/hpf 08/14/2014 2:25 AM [facility] RBC UA Auto 0-2 0-2, 2-5 #/hpf 08/14/2014 2:25 AM [facility] Epithelial Cell UA Auto 2-5 0-2, 2-5 #/hpf 08/14/2014 2:25 AM [facility] Urine Microscopy Urine microscopy not indicated 08/14/2014 2:25 AM [facility] Reflex Status Culture not indicated 08/14/2014 2:25 AM [facility] Urine URINE SPECIMEN OBTAINED BY CLEAN CATCH PROCEDURE / Unknown 08/14/2014 2:10 AM CDT 08/14/2014 2:16 AM [facility] Paco Gore MD LAB - URINALYSIS ORD ERABLES [facility] [address] [place] [address] * HCG BLOOD QUALITATIVE (10/21/2013 1:03 PM [employer]) HCG Qual Serum Negative Negative 10/21/2013 1:31 PM [employer]UDENT SERVICES [employer]OR [facility] Blood BLOOD SPECIMEN / Unknown Venipuncture / Unknown 10/21/2013 1:03 PM [employer]UD[employer] SERVICES [employer]OR 10/21/2013 1:19 PM [employer]UDENT SERVICES ADVISOR Narrative [facility] - 10/21/2013 1:31 PM [employer]UD[employer] Specimens containing heterophilic antibodies may demonstrate false positive results. Specimens containing human anti-mouse antibodies may exhibit false positive or false negative results. If qualitative interpretation is inconsistant with clinical evaluation, consider confirmation by an alternative HCG method. Boy Alfonso MD LAB - CHEMISTRY MARCEL TEIXEIRA [facility] [address] [place] [address] * Stone Protocol CT (10/21/2013 1:02 PM STUDENT SERVICES ADVISOR) Anatomical Region Laterality Modality Abdomen, Pelvis Computed Tomogra phy 10/21/2013 1:35 PM STUDENT SERVICES ADVISOR Impressions 10/21/2013 1:39 PM STUDENT SERVICES ADVISOR No obstruction or definite urinary stone seen at this time. A 1.3 CM cyst is suspected in the left ovary. Narrative 10/21/2013 1:39 PM STUDENT SERVICES ADVISOR Examination: Noncontrast Abdomen and Pelvic CT Indication: [...] or syntax problems by a trained medical physicist. For questions about the report, please contact [...] or syntax problems by a trained medical physicist. For questions about the report, please contact the Radiology Department. IMPRESSION No obstruction or definite urinary stone seen at this time. A 1.3 CM cyst is suspected in the left ovary. Boy Alfonso MD CT ORDERABLES * (ABNORMAL) BASIC METABOLIC PANEL (CALCIUM TOTAL) (10/21/2013 12:46 PM STUDENT SERVICES ADVISOR) Glucose 147(H) 74 - 106 mg/dL 10/21/2013 1:10 PM [facility] Sodium 139 136 - 145 mmol/L 10/21/2013 1:10 PM [facility] Potassium 3.9 3.5 - 5.1 mmol/L 10/21/2013 1:10 PM [facility] Chloride 105 98 - 107 mmol/L 10/21/2013 1:10 PM [facility] CO2 26 22 - 31 mmol/L 10/21/2013 1:10 PM [facility] Calcium 9.1 8.5 - 10.1 mg/dL 10/21/2013 1:10 PM [facility] Anion Gap 8 5 - 15 mmol/L 10/21/2013 1:10 PM [facility] BUN 17 7 - 21 mg/dL 10/21/2013 1:10 PM [facility] Creatinine 0.44(L) 0.50 - 1.30 mg/dL 10/21/2013 1:10 PM [facility] eGFR by MDRD >60 >60 mL/min/1.7 3m2 10/21/2013 1:10 PM [facility] eGFR by MDRD >60 >60 mL/min/1.7 3m2 10/21/2013 1:10 PM [facility] Blood BLOOD SPECIMEN / Unknown Venipuncture / Unknown 10/21/2013 12:46 PM STUDENT SERVICES ADVISOR 10/21/2013 12:56 PM [facility] Boy Alfonso MD LAB - CHEMISTRY MARCEL TEIXEIRA [facility] Organization Address City/State/ZIP Co de Phone Number [facility] [address] [place] [address] * (ABNORMAL) URINALYSIS ROUTINE AUTO (10/21/2013 11:44 AM [facility]) Color UA Yellow Straw, Yellow, Dark Yellow 10/21/2013 11:56 AM [facility] Clarity UA Cloudy 10/21/2013 11:56 AM [facility] Specific Palmer UA 1.029 1.005 - 1.030 10/21/2013 11:56 AM [facility] pH UA 5.0 5.0 - 8.0 pH 10/21/2013 11:56 AM [facility] Protein UA 2+(A) Negative 10/21/2013 11:56 AM [facility] Blood UA 2+(A) Negative 10/21/2013 11:56 AM [facility] Leukocyte UA Negative Negative 10/21/2013 11:56 AM [facility] Nitrite UA Negative Negative 10/21/2013 11:56 AM [facility] Glucose UA Negative Negative 10/21/2013 11:56 AM [facility] Ketone UA Negative Negative 10/21/2013 11:56 AM [facility] Bilirubin UA 1+(A) Negative 10/21/2013 11:56 AM [facility] Urobilinogen UA 0.2 0.1 - 1.0 EU/dL 10/21/2013 11:56 AM [facility] WBC UA Auto 10-20(A) 0-2, 2-5 #/hpf 10/21/2013 11:56 AM STUDENT SERVICES ADVISOR [facility] RBC UA Auto 2-5 0-2, 2-5 #/hpf 10/21/2013 11:56 AM [facility] Epithelial Cell UA Auto 5-10(A) 0-2, 2-5 #/hpf 10/21/2013 11:56 AM [facility] Hyaline Casts UA Auto 2-5(A) 0 - 2 #/lpf 10/21/2013 11:56 AM [facility] Urine URINE SPECIMEN OBTAINED BY CLEAN CATCH PROCEDURE / Unknown Collection / Unknown 10/21/2013 11:44 AM STUDENT SERVICES ADVISOR 10/21/2013 11:49 AM STUDENT SERVICES ADVISOR Boy Alfonso MD LAB - URINALYSIS ORD ERABLES [facility] [address] [place] [address] * (ABNORMAL) CULTURE URINE (10/19/2013 11:50 AM STUDENT SERVICES ADVISOR) Culture 10,000-50,000 CFU/mL Streptococcus agalactiae (Group B)(A) 10/21/2013 8:[address] [facility] Culture <10,000 CFU/mL normal enteric marin 10/21/2013 8:[address] [facility] Urine URINE SPECIMEN OBTAINED BY CLEAN CATCH PROCEDURE / Unknown 10/19/2013 11:50 AM STUDENT SERVICES ADVISOR 10/19/2013 11:50 AM [facility] Narrative [facility] - 10/21/2013 8:34 AM [facility] Susceptibility testing of penicillin, other beta-lactam antibiotics, and vancomycin is not necessary for beta-hemolytic streptococci groups A,B,C and G because resistant strains have not been recognized. Anyi Mullins MD LAB - MICROBIOLOGY O RDERABLES [facility] [address] [place] [address], [facility] Care Teams Veterans Rehabilitation Counselor Relationship Specialty Start Date End Date Azam Jackson, CT TECHNICIAN-SPEECH AND LANGUAGE CLINICIAN [address] [facility] [place] [address] PCP - General Nurse Practitioner Gerontology 11/28/20
--- OUTSIDE RECORDS SUMMARY | 2025-01-10 14:30 | XMS_ITS | Encounter Summary ---
Author Organization [facility] Address [address] [place] [address] Phone Care Team Providers Care Field Control Inspector Name Role Phone Unknown, Notinfile Primary Care Provider Unavail able Dorota Martinez MD Primary Care Provider [phone] Andrei Clark MD Primary Care Provider [phone] Kandace Freedman OT Unavailable [phone] Christina Brunson MD Unavailable [phone] Encounter Details Date Type Department Care Team (Late st Contact Info) Description 02/07/2019 Ophth Exam [facility] Ophthalmology [address] [place] [address] 1st [place] [id number] Diana Leon MD PhD [address] [place] [address] Social History Tobacco Use Types Packs/Day Years [...] on file 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 Gender Identity Not on file Sexual [...] no RT/RD/necrosis no RT/RD/necro sis Care Teams Field Control Inspector Relationship Specialty Start Date End Date Unknown, Notinfile PCP - General 02/04/19 02/10/19 Dorota Martinez MD [address] [place] [address] [address] [place] [address] PCP - General 02/11/19 12/10/20 Andrei Clark MD [address] [facility] [address] [place] [address] PCP - General Internal Medicine 12/11/20 Kandace Freedman OT [address] [place] [address] Occupational Therapist Occupational Therapy 03/15/21 Christina Brunson MD [address] [facility] [address] [place] [address] Obstetrics and Gynecology 08/02/22 documented as of this encounter
--- OUTSIDE RECORDS SUMMARY | 2025-01-10 14:30 | XMS_ITS | Referral Summary ---
Author Organization [facility] Address [address] [place] [address] Care Team Providers Care Sr Vice President Name Role Phone JacksonAzam APRN-SHEET METAL SHOP HELPER Primary Care Provide r Source Comments [facility],non-owned Affiliates and Associated Physician Practices is amultiple site organization consisting of ambulatory clinics and hospital sitesin [place], [place], [place] and [place]. This disclosure is being madepursuant to the Care Everywhere program and may not contain all information available regarding this patient. Last updated 18.[facility] Health Encounters Date Type Department Care Team Description 01/06/2025 Travel 01/06/2025 12:00 PM FAMILY HEALTH NURSE PRACTITIONER Video Visit [facility] Weight Management Services [address] [facility], [address] [place] [address] Morbid obesity (HCC) 01/01/2025 Travel 12/27/2024 1:00 PM FAMILY HEALTH NURSE PRACTITIONER Office Visit [facility] [address] [facility] [address] [facility], [address] [place] [address] Chin Mcleod MD Morbid obesity (HCC) (Primary Dx); Controlled type 2 diabetes mellitus without complication, without long-term current use of insulin (HCC); Benign hypertension; Preop testing from Last 3 Months Allergies Active Allergy Reactions Criticality Noted Date [...] Gluc Sensor (FREESTYLE AYDEE 14 DAY SENSOR) [facility] 12/29/2020 Active FARXIGA 10 MG tablet TAKE 1 TABLET BY MOUTH ONCE DAILY IN THE MORNING FOR 90 DAYS 07/23/2021 Active TRULICITY 3 MG/0.5ML injection INJECT 1 SUB Q ONCE A WEEK IN THE MORNING 07/23/2021 Active ergocalciferol (DRISDOL) 1.25 MG (23550 UT) capsule Vitamin D2 1,250 mcg (50,000 [...] Comments Blood Pressure 165/85 12/27/2024 12:43 PM FAMILY HEALTH NURSE PRACTITIONER Pulse 107 12/27/2024 12:43 PM FAMILY HEALTH NURSE PRACTITIONER Temperature 36.8 C (98.2 F) 11/28/2020 10:01 PM FAMILY HEALTH NURSE PRACTITIONER Respiratory Rate 17 11/28/2020 10:01 PM FAMILY HEALTH NURSE PRACTITIONER Oxygen Saturation 97% 12/27/2024 12:43 PM FAMILY HEALTH NURSE PRACTITIONER Inhaled Oxygen Concentration - - Weight 103 kg (227 lb) 12/27/2024 12:43 PM FAMILY HEALTH NURSE PRACTITIONER Height 162.6 cm (5' 4 ) 12/27/2024 12:43 PM FAMILY HEALTH NURSE PRACTITIONER Body Mass Index 38.96 12/27/2024 12:43 PM FAMILY HEALTH NURSE PRACTITIONER Plan of Treatment Upcoming Encounters Date Type Department Care Team (Late st Contact Info) Description 01/16/2025 8:15 AM FAMILY HEALTH NURSE PRACTITIONER Clinical Support [facility] Weight Management [facility] [address] [facility] [address] [place] [address] 01/16/2025 10:00 AM FAMILY HEALTH NURSE PRACTITIONER Appointment [facility] Imaging Services - Radiology [address] [place] [address] [place] [address] [facility] [address] [place] [phone] Procedures Procedure Name Priority Date/Time Associated Diagnosis [...] OF CAR E ORDERABLES Performing Organization Address City/State/[facility] Co de Phone Number [facility] [address] [phone] from Last 3 Months or Most Recently Relevant to Health Maintenance Care Teams Sr Vice President Relationship Specialty Start Date End Date Azam Jackson, MENTAL HEALTH PROFESSIONAL-SHEET METAL SHOP HELPER [address] [place] [address] PCP - General Nurse Practitioner Gerontology 11/28/20
--- OUTSIDE RECORDS SUMMARY | 2025-01-10 14:30 | XMS_ITS ---
Author Organization [facility] Address [address] [place] [address] Care Team Providers Care Partner Cco Name Role Phone Andrei Clark Primary Care Provider REASON FOR VISIT High Blood Sugar Social History Sex Assigned At : Social History Observation Description Sex Assigned At Female Encounters Encounter Location Date Provider Diagnosis [address] [place] [address] 01/07/2025 Andrei Clark Plan Of Treatment No Information Progress Notes * Kylee FIGUEROA RDOB:1985 (39 yo F)Acc No.[id number]:01/07/2025 Patient: Kylee HEATH :1985 A ge:39 Y S ex:Female Address:[address] [place], [address] * true * Date: Generated for Printi ng/Faxing/eTransmitting on: 0 01/10/2025 02:29 PM 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
--- OUTSIDE RECORDS SUMMARY | 2025-01-10 14:31 | XMS_ITS ---
Author Organization On license of [facility] Address [address] [place] [address] Care Team Providers Care Copy Center Associate Name Role Phone Andrei Clark Primary Care Provider [phone] REASON FOR VISIT Other Social History Sex Assigned At : Social History Observation Description Sex Assigned At Female Encounters Encounter Location Date Provider Diagnosis [address] [place] [address] 01/10/2025 Andrei Clark Plan Of Treatment No Information Progress Notes * Kylee FIGUEROA RDOB:1985 (39 yo F)Acc No.[id number]:01/10/2025 Patient: Kylee HEATH :1985 A ge:39 Y S ex:Female Address:[address] [place], [address] * true * Date: Generated for Printi ng/Faxing/eTransmitting on: 0 01/10/2025 02:31 PM FRUIT HARVEST MACHINE OPERATOR
[2025-01-10 14:55] VITALS: BP 139/76; PULSE 115; RESP 16; TEMP 36.6; O2SAT 99
[2025-01-10 15:01] LABS: Glucose Point of Care 248 mg/dl (65-105)
--- NOTE | 2025-01-10 15:56 | ED.RECABL ---
HPI - Recheck/Abnormal Lab/Rx General Chief Complaint: Recheck/Abnormal Lab/Rx <SHANNAN Srivastava Last Filed: 01/10/25 16:13> Stated Complaint: kidney pain, decreased urinary, hyperglycemia <SHANNAN Srivastava Last Filed: 01/10/25 16:13> Time Seen by Provider: 01/10/25 15:57 <SHANNAN Srivastava Last Filed: 01/10/25 16:13> Focused HPI: Patient is a 39 y/o female, with PMH of IDDM, who presents to the ED with c/o R flank pain and hyperglycemia. Patient reports her blood sugars have been elevated over the last 1 week, ranging in the 300-400 range. She is currently on metformin and insulin therapy. Her metformin was increased around 1 week ago to 1500 mg once with dinner. She is also on Farxiga and 60U of Tresiba at night. No previous hx of DKA. She also reports over the past 1 week she has been having intermittent pain in her right flank region. Pain began radiating around to R lower abdomen today. Has not taken anything for pain. Reports dark yellow urine, intermittent hematuria. Reports oliguria. States she drinks 64 oz of water at least per day but has only urinated once today. Does not feel the urge to go. Denies dysuria. Denies hx of kidney stone. Denies fevers, N/V. GENERAL: Well-appearing, morbidly obese with BMI of 46.5, and in no acute distress. HEAD: Normocephalic, atraumatic. CHEST: Clear to auscultation. ?No respiratory distress. HEART: Regular rate and rhythm.? ABD: Diffuse tenderness in epigastric region. No significant RLQ tenderness. NEURO: ?Alert and oriented x3. Patient screened in triage and initial orders placed.? ?Additional care and disposition to be based upon?diagnostic testing and treatment. <SHANNAN Srivastava Last Filed: 01/10/25 16:13> Source: patient <SHANNAN Srivastava Last Filed: 01/10/25 16:13> Mode of arrival: ambulatory <SHANNAN Srivastava Filed: 01/10/25 16:13> Limitations: no limitations <Mel Schneider PA-C - Last Filed: 01/10/25 16:13> Related Data Home Medications: Home Medications ?Medication ?Instructions ?Recorded ?Confirmed ?Last Taken ?Type metformin 500 mg tablet,extended 500 mg PO DAILY 04/30/20 01/10/25 11/17/20 09:00 History release 24 hr albuterol sulfate 90 mcg/actuation 1 inh inhalation PRN PRN Shortness 07/06/20 01/10/25 11/16/20 21:00 History aerosol inhaler (ProAir HFA) Of Breath insulin degludec 200 unit/mL (3 40 unit subcut HS 07/06/20 01/10/25 01/09/25 History mL) subcutaneous pen (Tresiba FlexTouch U-200 insulin) rosuvastatin 10 mg tablet (Crestor) 10 mg PO DAILY 08/09/20 01/10/25 11/17/20 21:00 History dapagliflozin propanediol 10 mg 10 mg PO DAILY 04/20/22 01/10/25 Unknown History tablet (Farxiga) aspirin 81 mg tablet,delayed 81 mg PO DAILY 11/10/24 01/10/25 Unknown History release bupropion HCl 150 mg 24 hr tablet, 150 mg PO DAILY 11/10/24 01/10/25 01/09/25 History extended release fluconazole 150 mg tablet 150 mg PO PRN PRN yeast infections 01/10/25 01/10/25 Unknown History valsartan 320 12.5 tablet PO DAILY 01/10/25 01/10/25 01/09/25 History mg-hydrochlorothiazide 12.5 mg tablet <Mel Schneider PA-C - Last Filed: 01/10/25 16:13> Allergies/Adverse Reactions: Allergies Allergy/AdvReac Type Severity Reaction Status Date / Time metoclopramide AdvReac Severe PANIC Verified 01/11/25 03:36 ATTACKS ondansetron AdvReac Severe PANIC Verified 01/11/25 03:36 ATTACKS prochlorperazine (From AdvReac Severe PANIC Verified 01/11/25 03:36 Compazine) ATTACKS promethazine AdvReac Severe PANIC Verified 01/11/25 03:36 ATTACKS adhesive tape AdvReac Intermediate Rash Verified 01/11/25 03:36 <SHANNAN Srivastava Last Filed: 01/10/25 16:13> Review of Systems Review of Systems: All systems reviewed & are unremarkable except as noted in HPI and below <Taryn Stephens PA-C - Last Filed: 01/11/25 03:17> [facility] Past Medical History Medical History: Medical History Yeast infection Colon, diverticulosis Hematochezia Constipation Complex cyst of left ovary surgical removal SOB (shortness of breath) Bilateral hand pain Chronic kidney disease CRP elevated Myalgia Myalgia BOBBY positive (~2020) Degenerative joint disease of cervical and lumbar spine Pseudotumor cerebri History of Pettit's palsy Kidney cysts Followed by a swimming pool cleaner in [place]. Anxiety Migraine headache Polycystic ovarian syndrome Gastroesophageal reflux disease Insulin dependent type 2 diabetes mellitus Hemoglobin A1c on 11/12/2020 was 7.9%. Dyslipidemia Empty sella syndrome Fibromyalgia Hypertension <SHANNAN Srivastava Last Filed: 01/10/25 16:13> Surgical History Surgical History: Surgical History History of esophagogastroduodenoscopy (EGD) History of unilateral oophorectomy History of bilateral salpingectomy History of tubal ligation Delivery by section xs 2 History of laparoscopic cholecystectomy (~2005) <SHANNAN Srivastava Last Filed: 01/10/25 16:13> Family History Family History: Family History Father Diabetes mellitus Hypertension Myocardial infarct Heart disease Mother Diabetes mellitus Heart disease Sibling Narcolepsy and cataplexy Legal Guardian No problems noted. Grandparent Breast cancer <SHANNAN Srivastava Last Filed: 01/10/25 16:13> Social History Social History: Social History Social History: The patient is and lives in [place] with her teenage son and daughter. She works for the [employer] She smoked about a half a pack of cigarettes a day and quit in June 2020. No alcohol or illicit substance abuse. She designates her daughter Kiesha as her surrogate decision maker and she wishes to be a full code. Smoking packs per day: 1 Smoking cigarettes per day: 20.0 Years smoked: 20 Smoking pack-years: 20.00 Smoking status: Former smoker Tobacco type: cigarettes Second hand tobacco smoke exposure: Yes Smoking end date: 06/29/20 Alcohol intake: never Substance use: never Substance use type: does not use Other substance usage details: Previously used marijuana; denies currently Last use: DAILY Do You Feel Safe in your Home?: Yes Lack of Transportation: No Lack of Food: Never True Current Housing: I Have Housing Concerned About Future Housing: No Difficulty Paying Gas/Electric Bills: No Difficulty Paying for Meds: No Currently Unemployed: No Education: Associate Degree Difficulty w/ Childcare or Family Care: No Living arrangements: with family Occupation/Education: occupation Additional occupation/education comments: [employer] Gender identity (if verbalized by the patient): Female Sexual Orientation (if Verbalized by the Patient): Bisexual Spiritual care concerns: No <Mel Schneider PA-C - Last Filed: 01/10/25 16:13> Exam Narrative: GENERAL: Well-appearing, well-nourished, and in no acute distress. HEAD: Normocephalic, atraumatic. EYES: EOMI. ENT: Nares clear, no rhinorrhea or epistaxis. Mucous membranes moist. Oropharynx without tonsillar hypertrophy exudate or other lesions. NECK: Supple. No adenopathy or masses. CHEST: Clear to auscultation. No respiratory distress. No wheezes rales or rhonchi HEART: Regular rate and rhythm. No murmur heard. Normal peripheral pulses. ABDOMEN: Soft, nontender, nondistended, normal active bowel sounds. EXTREMITIES: Normal range of motion. No edema. SKIN: Warm, dry, no rash. NEURO: No focal deficits. Alert and oriented x3. PSYCH: Normal mood and affect <Taryn Stephens PA-C - Last Filed: 01/11/25 03:17> Course Course Emergency Course: patient updated on her workup and recommendation for admission <Taryn Stephens PA-C - Last Filed: 01/11/25 03:17> Patient updated on her workup and recommendation for admission. <Hawa Carrasco MD - Last Filed: 01/11/25 07:01> CUSTOMER RESOLUTION SPECIALIST/PA Physician Supervision For this patient encounter, I reviewed the CUSTOMER RESOLUTION SPECIALIST or PA documentation, treatment plan, and medical decision making and had [id number] time with this patient. I performed all aspects of the MDM as documented. <Hawa Carrasco MD - Last Filed: 01/11/25 07:01> Consultations Consultation #1: spoke with hospitalist about patient and workup who accepts admission <Taryn Stephens PA-C - Last Filed: 01/11/25 03:17> Date: 01/11/25 <Taryn Stephens PA-C - Last Filed: 01/11/25 03:17> Vital Signs Vital signs: Vital Signs Temperature 97.9 F 01/10/25 14:55 Pulse Rate 115 H 01/10/25 14:55 Respiratory Rate 16 01/10/25 14:55 Blood Pressure 139/76 01/10/25 14:55 Pulse Oximetry 99 01/10/25 14:55 Temperature 98.3 F 01/11/25 04:11 Pulse Rate 105 H 01/11/25 05:09 Respiratory Rate 16 01/11/25 05:09 Blood Pressure 140/86 01/11/25 04:11 Pulse Oximetry 100 01/11/25 05:09 Oxygen Delivery Room Air 01/11/25 05:09 <Mel Schneider PA-C - Last Filed: 01/10/25 16:13> Vital Signs Temperature 97.9 F 01/10/25 14:55 Pulse Rate 115 H 01/10/25 14:55 Respiratory Rate 16 01/10/25 14:55 Blood Pressure 139/76 01/10/25 14:55 Pulse Oximetry 99 01/10/25 14:55 Temperature 98.3 F 01/11/25 04:11 Pulse Rate 105 H 01/11/25 05:09 Respiratory Rate 16 01/11/25 05:09 Blood Pressure 140/86 01/11/25 04:11 Pulse Oximetry 100 01/11/25 05:09 Oxygen Delivery Room Air 01/11/25 05:09 <SHANNAN Adan Last Filed: 01/11/25 03:17> Vital Signs Temperature 97.9 F 01/10/25 14:55 Pulse Rate 115 H 01/10/25 14:55 Respiratory Rate 16 01/10/25 14:55 Blood Pressure 139/76 01/10/25 14:55 Pulse Oximetry 99 01/10/25 14:55 Temperature 98.3 F 01/11/25 04:11 Pulse Rate 105 H 01/11/25 05:09 Respiratory Rate 16 01/11/25 05:09 Blood Pressure 140/86 01/11/25 04:11 Pulse Oximetry 100 01/11/25 05:09 Oxygen Delivery Room Air 01/11/25 05:09 <Hawa Carrasco MD - Last Filed: 01/11/25 07:01> MDM - Recheck/Abnormal Lab/Rx MDM Narrative Medical decision making narrative: MSE by SUDEEP in triage. <Mel Schneider PA-C - Last Filed: 01/10/25 16:13> MSE by SUDEEP in triage. Patient presents to the emergency department for flank pain, elevated blood sugar tachycardic upon arrival, this did improve after IV fluids. Cbc without leukocytosis. Metabolic panel without evidence of acute kidney injury and dehydration. Beta hydroxybutyrate is mildly elevated, although she does not have any ketones in her urine. 11-20 white blood cells in the urine, also moderate squamous epithelial cells. Likely contaminated catch. Will send for culture. CT abdomen and pelvis without acute findings. patient updated on her workup and recommendation for admission. spoke with hospitalist about patient and workup who accepts admission <Taryn Stephens PA-C - Last Filed: 01/11/25 03:17> MSE by SUDEEP in triage. Patient presents to the emergency department for flank pain, elevated blood sugar tachycardic upon arrival, this did improve after IV fluids. Cbc without leukocytosis. Metabolic panel without evidence of acute kidney injury and dehydration. Beta hydroxybutyrate is mildly elevated, although she does not have any ketones in her urine. 11-20 white blood cells in the urine, also moderate squamous epithelial cells. Likely contaminated catch. Will send for culture. CT abdomen and pelvis without acute findings. patient updated on her workup and recommendation for admission. spoke with hospitalist about patient and workup who accepts admission. <Hawa Carrasco MD - Last Filed: 01/11/25 07:01> Differential Diagnosis Differential diagnosis: Likely other (Dehydration, DKA, hyperglycemia, UTI, pyelonephritis, kidney stone) <Taryn Stephens PA-C - Last Filed: 01/11/25 03:17> Lab Data Attestation: I reviewed the patient's lab results. <Taryn Stephens PA-C - Last Filed: 01/11/25 03:17> Result diagrams: 01/10/25 17:33 01/11/25 02:21 <Mel Schneider PA-C - Last Filed: 01/10/25 16:13> Labs: Lab Results 01/10/25 01/10/25 01/10/25 Range/Units 14:58 17:33 22:35 WBC 9.2 (4.5-10.0) K/mm3 RBC 4.51 (4.2-5.4) M/mm3 Hgb 9.8 L (12.0-15.0) g/dL Hct 34.1 L (37.0-47.0) % MCV 75.6 L (80-100) fl MCH 21.7 L (26-34) pg MCHC 28.7 L (32-36) g/dl RDW 19.3 H (11.5-14.5) % Plt Count 345 (150-375) k/mm3 MPV 8.9 (7.4-10.4) fl Immature Gran % (Auto) 0.3 (0-0.5) % Neut % (Auto) 59.9 (45.5-73.1) % Lymph % (Auto) 30.8 (18.3-44.2) % Roberts % (Auto) 6.5 (2.6-8.5) % Eos % (Auto) 2.0 (0-4.4) % Baso % (Auto) 0.5 (0.2-1.2) % Lymph # (Auto) 2.83 (0.9-3.2) K/mm3 Roberts # (Auto) 0.6 (0.1-0.6) K/mm3 Eos # (Auto) 0.2 (0-0.3) K/mm3 Baso # (Auto) 0.1 (0.0-0.1) K/mm3 Abs Immat Gran (auto) 0.03 (0.00-0.031) K/mm3 Absolute Neuts (auto) 5.5 (1.3-6.7) K/mm3 Absolute Nucleated RBC 0.000 (0.0-0.012) K/mm3 Band Neutrophils % Not Reportable Nucleated RBC % 0.0 (0.0-0.2) % Platelet Estimate Adequate (Adequate) Hypochromasia 1+ Anisocytosis 2+ Microcytosis 1+ (NORMAL) Schistocytes None seen Sodium 139 (137-145) mmol/L Potassium 4.3 (3.4-5.0) mmol/L Chloride 104 (98-107) mmol/L Carbon Dioxide 19 L (22-30) mmol/L Anion Gap 16 H (4-12) mmol/L BUN 42 H D (7-17) mg/dL Creatinine 1.31 H (0.7-1.0) mg/dL Estim Creat Clear Calc 66 ml/min Estimated GFR 45 L (59 - ) Glucose 209 H (65-110) mg/dL POC Capillary Glucose 248 H (65-105) mg/dl Hemoglobin A1c 9.9 H (<5.7) % Calcium 9.9 (8.4-10.2) mg/dL Phosphorus 4.6 H (2.5-4.5) mg/dL Magnesium 2.2 (1.6-2.3) mg/dL Total Bilirubin 0.6 (0.2-1.3) mg/dL AST 22 (14-36) U/L ALT 22 (6-35) U/L Alkaline Phosphatase 101 (38-126) U/L Total Protein 8.0 (6.3-8.2) g/dL Albumin 4.6 (3.5-5.1) g/dL Lipase 178 (23-300) U/L Beta-Hydroxybutyrate/Acetoacetate 0.51 H (0.02-0.27) mmol/L Urine Color Yellow (Yellow) Urine Appearance Clear (Clear) Urine pH 5.0 (5.0-9.0) Ur Specific Gustavus 1.027 (1.001-1.035) Urine Protein 1+ H (Negative) mg/dL Urine Glucose (UA) 3+ H (Negative) mg/dL Urine Ketones Negative (Negative) mg/dL Ur Blood (Man) Negative (Negative) Urine Nitrate Negative (Negative) Urine Bilirubin Negative (Negative) Urine Urobilinogen 0.2 (<2.0) mg/dL Add Ur Microanalysis Reviewed Leukocyte Esterase Rfl Negative (Negative) JOSE/UL Urine RBC 0-2 (0-2) /hpf Urine WBC 11-20 H (0-3) /hpf Ur Squamous Epith Cells Moderate (Few) /hpf Urine Bacteria Rare /hpf Urine Casts 3-5 01/11/25 Range/Units 02:21 WBC (4.5-10.0) K/mm3 RBC (4.2-5.4) M/mm3 Hgb (12.0-15.0) g/dL Hct (37.0-47.0) % MCV (80-100) fl MCH (26-34) pg MCHC (32-36) g/dl RDW (11.5-14.5) % Plt Count (150-375) k/mm3 MPV (7.4-10.4) fl Immature Gran % (Auto) (0-0.5) % Neut % (Auto) (45.5-73.1) % Lymph % (Auto) (18.3-44.2) % Roberts % (Auto) (2.6-8.5) % Eos % (Auto) (0-4.4) % Baso % (Auto) (0.2-1.2) % Lymph # (Auto) (0.9-3.2) K/mm3 Roberts # (Auto) (0.1-0.6) K/mm3 Eos # (Auto) (0-0.3) K/mm3 Baso # (Auto) (0.0-0.1) K/mm3 Abs Immat Gran (auto) (0.00-0.031) K/mm3 Absolute Neuts (auto) (1.3-6.7) K/mm3 Absolute Nucleated RBC (0.0-0.012) K/mm3 Band Neutrophils % Nucleated RBC % (0.0-0.2) % Platelet Estimate (Adequate) Hypochromasia Anisocytosis Microcytosis (NORMAL) Schistocytes Sodium 138 (137-145) mmol/L Potassium 3.9 (3.4-5.0) mmol/L Chloride 108 H (98-107) mmol/L Carbon Dioxide 18 L (22-30) mmol/L Anion Gap 12 (4-12) mmol/L BUN 38 H (7-17) mg/dL Creatinine 1.10 H (0.7-1.0) mg/dL Estim Creat Clear Calc 77 ml/min Estimated GFR 55 L (59 - ) Glucose 180 H (65-110) mg/dL POC Capillary Glucose (65-105) mg/dl Hemoglobin A1c (<5.7) % Calcium 8.7 (8.4-10.2) mg/dL Phosphorus (2.5-4.5) mg/dL Magnesium (1.6-2.3) mg/dL Total Bilirubin 0.5 (0.2-1.3) mg/dL AST 23 (14-36) U/L ALT 19 (6-35) U/L Alkaline Phosphatase 87 (38-126) U/L Total Protein 7.0 (6.3-8.2) g/dL Albumin 4.0 (3.5-5.1) g/dL Lipase (23-300) U/L Beta-Hydroxybutyrate/Acetoacetate (0.02-0.27) mmol/L Urine Color (Yellow) Urine Appearance (Clear) Urine pH (5.0-9.0) Ur Specific Gustavus (1.001-1.035) Urine Protein (Negative) mg/dL Urine Glucose (UA) (Negative) mg/dL Urine Ketones (Negative) mg/dL Ur Blood (Man) (Negative) Urine Nitrate (Negative) Urine Bilirubin (Negative) Urine Urobilinogen (<2.0) mg/dL Add Ur Microanalysis Leukocyte Esterase Rfl (Negative) JOSE/UL Urine RBC (0-2) /hpf Urine WBC (0-3) /hpf Ur Squamous Epith Cells (Few) /hpf Urine Bacteria /hpf Urine Casts <Mel Schneider PA-C - Last Filed: 01/10/25 16:13> Lab Results 01/10/25 01/10/25 01/10/25 Range/Units 14:58 17:33 22:35 WBC 9.2 (4.5-10.0) K/mm3 RBC 4.51 (4.2-5.4) M/mm3 Hgb 9.8 L (12.0-15.0) g/dL Hct 34.1 L (37.0-47.0) % MCV 75.6 L (80-100) fl MCH 21.7 L (26-34) pg MCHC 28.7 L (32-36) g/dl RDW 19.3 H (11.5-14.5) % Plt Count 345 (150-375) k/mm3 MPV 8.9 (7.4-10.4) fl Immature Gran % (Auto) 0.3 (0-0.5) % Neut % (Auto) 59.9 (45.5-73.1) % Lymph % (Auto) 30.8 (18.3-44.2) % Roberts % (Auto) 6.5 (2.6-8.5) % Eos % (Auto) 2.0 (0-4.4) % Baso % (Auto) 0.5 (0.2-1.2) % Lymph # (Auto) 2.83 (0.9-3.2) K/mm3 Roberts # (Auto) 0.6 (0.1-0.6) K/mm3 Eos # (Auto) 0.2 (0-0.3) K/mm3 Baso # (Auto) 0.1 (0.0-0.1) K/mm3 Abs Immat Gran (auto) 0.03 (0.00-0.031) K/mm3 Absolute Neuts (auto) 5.5 (1.3-6.7) K/mm3 Absolute Nucleated RBC 0.000 (0.0-0.012) K/mm3 Band Neutrophils % Not Reportable Nucleated RBC % 0.0 (0.0-0.2) % Platelet Estimate Adequate (Adequate) Hypochromasia 1+ Anisocytosis 2+ Microcytosis 1+ (NORMAL) Schistocytes None seen Sodium 139 (137-145) mmol/L Potassium 4.3 (3.4-5.0) mmol/L Chloride 104 (98-107) mmol/L Carbon Dioxide 19 L (22-30) mmol/L Anion Gap 16 H (4-12) mmol/L BUN 42 H D (7-17) mg/dL Creatinine 1.31 H (0.7-1.0) mg/dL Estim Creat Clear Calc 66 ml/min Estimated GFR 45 L (59 - ) Glucose 209 H (65-110) mg/dL POC Capillary Glucose 248 H (65-105) mg/dl Hemoglobin A1c 9.9 H (<5.7) % Calcium 9.9 (8.4-10.2) mg/dL Phosphorus 4.6 H (2.5-4.5) mg/dL Magnesium 2.2 (1.6-2.3) mg/dL Total Bilirubin 0.6 (0.2-1.3) mg/dL AST 22 (14-36) U/L ALT 22 (6-35) U/L Alkaline Phosphatase 101 (38-126) U/L Total Protein 8.0 (6.3-8.2) g/dL Albumin 4.6 (3.5-5.1) g/dL Lipase 178 (23-300) U/L Beta-Hydroxybutyrate/Acetoacetate 0.51 H (0.02-0.27) mmol/L Urine Color Yellow (Yellow) Urine Appearance Clear (Clear) Urine pH 5.0 (5.0-9.0) Ur Specific Gustavus 1.027 (1.001-1.035) Urine Protein 1+ H (Negative) mg/dL Urine Glucose (UA) 3+ H (Negative) mg/dL Urine Ketones Negative (Negative) mg/dL Ur Blood (Man) Negative (Negative) Urine Nitrate Negative (Negative) Urine Bilirubin Negative (Negative) Urine Urobilinogen 0.2 (<2.0) mg/dL Add Ur Microanalysis Reviewed Leukocyte Esterase Rfl Negative (Negative) JOSE/UL Urine RBC 0-2 (0-2) /hpf Urine WBC 11-20 H (0-3) /hpf Ur Squamous Epith Cells Moderate (Few) /hpf Urine Bacteria Rare /hpf Urine Casts 3-5 02/22/25 Range/Units 02:21 WBC (4.5-10.0) K/mm3 RBC (4.2-5.4) M/mm3 Hgb (12.0-15.0) g/dL Hct (37.0-47.0) % MCV (80-100) fl MCH (26-34) pg MCHC (32-36) g/dl RDW (11.5-14.5) % Plt Count (150-375) k/mm3 MPV (7.4-10.4) fl Immature Gran % (Auto) (0-0.5) % Neut % (Auto) (45.5-73.1) % Lymph % (Auto) (18.3-44.2) % Roberts % (Auto) (2.6-8.5) % Eos % (Auto) (0-4.4) % Baso % (Auto) (0.2-1.2) % Lymph # (Auto) (0.9-3.2) K/mm3 Roberts # (Auto) (0.1-0.6) K/mm3 Eos # (Auto) (0-0.3) K/mm3 Baso # (Auto) (0.0-0.1) K/mm3 Abs Immat Gran (auto) (0.00-0.031) K/mm3 Absolute Neuts (auto) (1.3-6.7) K/mm3 Absolute Nucleated RBC (0.0-0.012) K/mm3 Band Neutrophils % Nucleated RBC % (0.0-0.2) % Platelet Estimate (Adequate) Hypochromasia Anisocytosis Microcytosis (NORMAL) Schistocytes Sodium 138 (137-145) mmol/L Potassium 3.9 (3.4-5.0) mmol/L Chloride 108 H (98-107) mmol/L Carbon Dioxide 18 L (22-30) mmol/L Anion Gap 12 (4-12) mmol/L BUN 38 H (7-17) mg/dL Creatinine 1.10 H (0.7-1.0) mg/dL Estim Creat Clear Calc 77 ml/min Estimated GFR 55 L (59 - ) Glucose 180 H (65-110) mg/dL POC Capillary Glucose (65-105) mg/dl Hemoglobin A1c (<5.7) % Calcium 8.7 (8.4-10.2) mg/dL Phosphorus (2.5-4.5) mg/dL Magnesium (1.6-2.3) mg/dL Total Bilirubin 0.5 (0.2-1.3) mg/dL AST 23 (14-36) U/L ALT 19 (6-35) U/L Alkaline Phosphatase 87 (38-126) U/L Total Protein 7.0 (6.3-8.2) g/dL Albumin 4.0 (3.5-5.1) g/dL Lipase (23-300) U/L Beta-Hydroxybutyrate/Acetoacetate (0.02-0.27) mmol/L Urine Color (Yellow) Urine Appearance (Clear) Urine pH (5.0-9.0) Ur Specific Gustavus (1.001-1.035) Urine Protein (Negative) mg/dL Urine Glucose (UA) (Negative) mg/dL Urine Ketones (Negative) mg/dL Ur Blood (Man) (Negative) Urine Nitrate (Negative) Urine Bilirubin (Negative) Urine Urobilinogen (<2.0) mg/dL Add Ur Microanalysis Leukocyte Esterase Rfl (Negative) JOSE/UL Urine RBC (0-2) /hpf Urine WBC (0-3) /hpf Ur Squamous Epith Cells (Few) /hpf Urine Bacteria /hpf Urine Casts <Taryn Stephens PA-C - Last Filed: 01/11/25 03:17> Lab Results 01/10/25 01/10/25 01/10/25 Range/Units 14:58 17:33 22:35 WBC 9.2 (4.5-10.0) K/mm3 RBC 4.51 (4.2-5.4) M/mm3 Hgb 9.8 L (12.0-15.0) g/dL Hct 34.1 L (37.0-47.0) % MCV 75.6 L (80-100) fl MCH 21.7 L (26-34) pg MCHC 28.7 L (32-36) g/dl RDW 19.3 H (11.5-14.5) % Plt Count 345 (150-375) k/mm3 MPV 8.9 (7.4-10.4) fl Immature Gran % (Auto) 0.3 (0-0.5) % Neut % (Auto) 59.9 (45.5-73.1) % Lymph % (Auto) 30.8 (18.3-44.2) % Roberts % (Auto) 6.5 (2.6-8.5) % Eos % (Auto) 2.0 (0-4.4) % Baso % (Auto) 0.5 (0.2-1.2) % Lymph # (Auto) 2.83 (0.9-3.2) K/mm3 Roberts # (Auto) 0.6 (0.1-0.6) K/mm3 Eos # (Auto) 0.2 (0-0.3) K/mm3 Baso # (Auto) 0.1 (0.0-0.1) K/mm3 Abs Immat Gran (auto) 0.03 (0.00-0.031) K/mm3 Absolute Neuts (auto) 5.5 (1.3-6.7) K/mm3 Absolute Nucleated RBC 0.000 (0.0-0.012) K/mm3 Band Neutrophils % Not Reportable Nucleated RBC % 0.0 (0.0-0.2) % Platelet Estimate Adequate (Adequate) Hypochromasia 1+ Anisocytosis 2+ Microcytosis 1+ (NORMAL) Schistocytes None seen Sodium 139 (137-145) mmol/L Potassium 4.3 (3.4-5.0) mmol/L Chloride 104 (98-107) mmol/L Carbon Dioxide 19 L (22-30) mmol/L Anion Gap 16 H (4-12) mmol/L BUN 42 H D (7-17) mg/dL Creatinine 1.31 H (0.7-1.0) mg/dL Estim Creat Clear Calc 66 ml/min Estimated GFR 45 L (59 - ) Glucose 209 H (65-110) mg/dL POC Capillary Glucose 248 H (65-105) mg/dl Hemoglobin A1c 9.9 H (<5.7) % Calcium 9.9 (8.4-10.2) mg/dL Phosphorus 4.6 H (2.5-4.5) mg/dL Magnesium 2.2 (1.6-2.3) mg/dL Total Bilirubin 0.6 (0.2-1.3) mg/dL AST 22 (14-36) U/L ALT 22 (6-35) U/L Alkaline Phosphatase 101 (38-126) U/L Total Protein 8.0 (6.3-8.2) g/dL Albumin 4.6 (3.5-5.1) g/dL Lipase 178 (23-300) U/L Beta-Hydroxybutyrate/Acetoacetate 0.51 H (0.02-0.27) mmol/L Urine Color Yellow (Yellow) Urine Appearance Clear (Clear) Urine pH 5.0 (5.0-9.0) Ur Specific Gustavus 1.027 (1.001-1.035) Urine Protein 1+ H (Negative) mg/dL Urine Glucose (UA) 3+ H (Negative) mg/dL Urine Ketones Negative (Negative) mg/dL Ur Blood (Man) Negative (Negative) Urine Nitrate Negative (Negative) Urine Bilirubin Negative (Negative) Urine Urobilinogen 0.2 (<2.0) mg/dL Add Ur Microanalysis Reviewed Leukocyte Esterase Rfl Negative (Negative) JOSE/UL Urine RBC 0-2 (0-2) /hpf Urine WBC 11-20 H (0-3) /hpf Ur Squamous Epith Cells Moderate (Few) /hpf Urine Bacteria Rare /hpf Urine Casts 3-5 01/11/25 Range/Units 02:21 WBC (4.5-10.0) K/mm3 RBC (4.2-5.4) M/mm3 Hgb (12.0-15.0) g/dL Hct (37.0-47.0) % MCV (80-100) fl MCH (26-34) pg MCHC (32-36) g/dl RDW (11.5-14.5) % Plt Count (150-375) k/mm3 MPV (7.4-10.4) fl Immature Gran % (Auto) (0-0.5) % Neut % (Auto) (45.5-73.1) % Lymph % (Auto) (18.3-44.2) % Roberts % (Auto) (2.6-8.5) % Eos % (Auto) (0-4.4) % Baso % (Auto) (0.2-1.2) % Lymph # (Auto) (0.9-3.2) K/mm3 Roberts # (Auto) (0.1-0.6) K/mm3 Eos # (Auto) (0-0.3) K/mm3 Baso # (Auto) (0.0-0.1) K/mm3 Abs Immat Gran (auto) (0.00-0.031) K/mm3 Absolute Neuts (auto) (1.3-6.7) K/mm3 Absolute Nucleated RBC (0.0-0.012) K/mm3 Band Neutrophils % Nucleated RBC % (0.0-0.2) % Platelet Estimate (Adequate) Hypochromasia Anisocytosis Microcytosis (NORMAL) Schistocytes Sodium 138 (137-145) mmol/L Potassium 3.9 (3.4-5.0) mmol/L Chloride 108 H (98-107) mmol/L Carbon Dioxide 18 L (22-30) mmol/L Anion Gap 12 (4-12) mmol/L BUN 38 H (7-17) mg/dL Creatinine 1.10 H (0.7-1.0) mg/dL Estim Creat Clear Calc 77 ml/min Estimated GFR 55 L (59 - ) Glucose 180 H (65-110) mg/dL POC Capillary Glucose (65-105) mg/dl Hemoglobin A1c (<5.7) % Calcium 8.7 (8.4-10.2) mg/dL Phosphorus (2.5-4.5) mg/dL Magnesium (1.6-2.3) mg/dL Total Bilirubin 0.5 (0.2-1.3) mg/dL AST 23 (14-36) U/L ALT 19 (6-35) U/L Alkaline Phosphatase 87 (38-126) U/L Total Protein 7.0 (6.3-8.2) g/dL Albumin 4.0 (3.5-5.1) g/dL Lipase (23-300) U/L Beta-Hydroxybutyrate/Acetoacetate (0.02-0.27) mmol/L Urine Color (Yellow) Urine Appearance (Clear) Urine pH (5.0-9.0) Ur Specific Gustavus (1.001-1.035) Urine Protein (Negative) mg/dL Urine Glucose (UA) (Negative) mg/dL Urine Ketones (Negative) mg/dL Ur Blood (Man) (Negative) Urine Nitrate (Negative) Urine Bilirubin (Negative) Urine Urobilinogen (<2.0) mg/dL Add Ur Microanalysis Leukocyte Esterase Rfl (Negative) JOSE/UL Urine RBC (0-2) /hpf Urine WBC (0-3) /hpf Ur Squamous Epith Cells (Few) /hpf Urine Bacteria /hpf Urine Casts <Hawa Carrasco MD - Last Filed: 01/11/25 07:01> Imaging Data Radiologist's impression: ITS Impressions Abdomen/Pelvis CT 01/10/25 16:39 IMPRESSION: 1. No urolithiasis. 2. Small sliding hiatal hernia. 3. Diffuse hepatic steatosis. 4. Uterine fibroids. <Taryn Stephens PA-C - Last Filed: 01/11/25 03:17> Critical Care Time Critical Care Time Critical Care Time: Yes <Taryn Stephens PA-C - Last Filed: 01/11/25 03:17> Total Critical Care Time: 35 <SHANNAN Adan Last Filed: 01/11/25 03:17> Discharge Plan Discharge Clinical Impression: Acute dehydration, Acute kidney injury <SHANNAN Srivastava Last Filed: 01/10/25 16:13> Patient Disposition: Still a Patient <SHANNAN Srivastava Last Filed: 01/10/25 16:13> Condition: Stable <SHANNAN Srivastava Last Filed: 01/10/25 16:13>
[2025-01-10 17:34] VITALS: BP 121/75; PULSE 105; RESP 20; TEMP 36.6; O2SAT 99
[2025-01-10 17:44] LABS: Basophils Absolute Auto 0.1 K/mm3 (0.0-0.1); Basophils Percent Auto 0.5 % (0.2-1.2); Eosinophils Absolute Auto 0.2 K/mm3 (0-0.3); Hematocrit 34.1 % (37.0-47.0); Hemoglobin 9.8 g/dL (12.0-15.0); Immature Granulocyte Absolute 0.03 K/mm3 (0.00-0.031); Immature Granulocyte Percent A 0.3 % (0-0.5); Lymphocytes Absolute Auto 2.83 K/mm3 (0.9-3.2); Lymphocytes Percent Auto 30.8 % (18.3-44.2); Mean Corpuscular HGB Conc 28.7 g/dl (32-36); Mean Corpuscular Hemoglobin 21.7 pg (26-34); Mean Corpuscular Volume 75.6 fl (80-100); Mean Platelet Volume 8.9 fl (7.4-10.4); Monocytes Absolute Auto 0.6 K/mm3 (0.1-0.6); Monocytes Percent Auto 6.5 % (2.6-8.5); Neutrophils Absolute Auto 5.5 K/mm3 (1.3-6.7); Neutrophils Percent Auto 59.9 % (45.5-73.1); Platelet Count Result 345 k/mm3 (150-375); Red Blood Count 4.51 M/mm3 (4.2-5.4); Red Cell Distribution Width 19.3 % (11.5-14.5); White Blood Count 9.2 K/mm3 (4.5-10.0)
[2025-01-10 18:00] LABS: Hemoglobin A1C 9.9 % (<5.7)
[2025-01-10 18:07] LABS: Platelet Estimate Adequate (Adequate)
[2025-01-10 18:08] LABS: Hypochromasia 1+; Schistocytes None Seen
[2025-01-10 18:09] LABS: Anisocytosis 2+; Microcytosis 1+ (NORMAL)
[2025-01-10 18:44] LABS: Alanine Aminotransferase 22 U/L (6-35); Albumin Level 4.6 g/dL (3.5-5.1); Alkaline Phosphatase 101 U/L (38-126); Anion Gap 16 mmol/L (4-12); Aspartate Amino Transferase 22 U/L (14-36); Bilirubin,Total 0.6 mg/dL (0.2-1.3); Blood Urea Nitrogen 42 mg/dL (7-17); Calcium 9.9 mg/dL (8.4-10.2); Carbon Dioxide 19 mmol/L (22-30); Chloride 104 mmol/L (98-107); Estimated CRCL calculation 66 ml/min; Estimated Glomerular Filt Rate 45; Glucose 209 mg/dL (65-110); Magnesium 2.2 mg/dL (1.6-2.3); Phosphorus 4.6 mg/dL (2.5-4.5); Potassium 4.3 mmol/L (3.4-5.0); Sodium 139 mmol/L (137-145)
[2025-01-10 19:52] LABS: Lipase 178 U/L (23-300)
--- OUTSIDE RECORDS SUMMARY | 2025-01-10 22:03 | XMS_ITS | Patient Health Summary ---
Author Organization [facility] Address [address] [place] [address] Care Team Providers Care Store Sales Leader Name Role Phone Azam Jackson APRN-LABORER [employer] Primary Care Provide r Note from [facility] [place],non-owned Affiliates and Associated Physician Practices is amultiple site organization consisting of ambulatory clinics and hospital sitesin [place], [place], [place] and [place]. This disclosure is being madepursuant to the Care Everywhere program and may not contain all information available regarding this patient. Last updated 18.[facility] Allergies * Prochlorperazine * Ondansetron * Promethazine(Other) [...] Gluc Sensor (FREESTYLE AYDEE 14 DAY SENSOR) [facility] [place]ed 12/29/2020[place] * FARXIGA 10 MG tablet(Started 07/23/2021) TAKE 1 TABLET BY MOUTH ONCE DAILY IN THE MORNING FOR 90 DAYS * TRULICITY 3 MG/0.5ML injection(Started 07/23/2021) INJECT 1 SUB Q ONCE A WEEK IN THE MORNING * ergocalciferol (DRISDOL) 1.25 MG (22084 UT) capsule Vitamin D2 1,250 mcg (50,000 unit) capsule * fenofibrate (LOFIBRA) 160 MG tablet(Started 05/20/2021) TAKE 1 TABLET BY MOUTH ONCE DAILY AT BEDTIME FOR 30 DAYS * fluticasone propionate (FLONASE) 50 MCG/ACT nasal spray fluticasone propionate 50 mcg/actuation nasal spray,suspension * glimepiride (AMARYL) 1 MG tablet(Started 02/14/2021) TAKE 2 TABLETS BY MOUTH TWICE DAILY BEFORE MEAL(S) * StretchrTOUCH ULTRA test strip(Started 2021) USE A TEST [...] Comments Blood Pressure 165/85 12/27/2024 12:43 PM FIRE HYDRANT MECHANIC Pulse 107 12/27/2024 12:43 PM [employer] HY[employer] MECHANIC Temperature 36.8 C (98.2 F) 11/28/2020 10:01 PM [employer]CH[employer]IC Respiratory Rate 17 11/28/2020 10:01 PM [employer] MECH[employer]IC Oxygen Saturation 97% 12/27/2024 12:43 PM [employer] HYDRANT MECHANIC Inhaled Oxygen Concentration - - Weight 103 kg (227 lb) 12/27/2024 12:43 PM [employer] HY[employer] MECHAN[employer] Height 162.6 cm (5' 4 ) 12/27/2024 12:43 PM [employer] HY[employer] MECH[employer]IC Body Mass Index 38.96 12/27/2024 12:43 PM FIRE HYDRANT MECHANIC Procedures * MRI KIDNEYS WWO CONTRAST(Performed 08/11/2021) [...] resultswithin the time period is included. Pathologist [facility] Creatinine POCT 1.15 0.7 - 1.2 mg/dL [facility] POCT TESTING QC Verified Yes Yes [facility] POC T TESTING Blood BLOOD SPECIMEN / Unknown 08/11/2021 11:57 AM CDT Trevon Monique MD LAB - POINT OF CAR E ORDERABLES Performing Organization Address [facility] Co de Phone Number [facility] POCT TESTING [address] [place] [address] * PROLACTIN (11/28/2020 6:50 PM FIRE HYDRANT MECHANIC) [facility] Prolactin 4.4 2.8 - 26.0 ng/mL 12/01/2020 3:19 PM FIRE HYDRANT MECHANIC [facility] The Other Guys ([facility]) Comment: REFERENCE INTERVAL: Prolactin Access complete set of age- and/or gender-specific reference intervals for this test in the [facility] Laboratory Test Directory ([employer]). Performed By: [email or web address] [address] [place] [address] Film Crew Member: Geraldine Mehta MD Blood BLOOD SPECIMEN / Unknown Venipuncture / Unknown 11/28/2020 6:50 PM FI[employer] HYDRANT MECHANIC 11/28/2020 6:15 PM [employer]CH[employer]IC Tomy Jeffrey MD LAB - CHEMISTRY ORDE [facility] The Other Guys [facility]) [address] [place] [address] * (ABNORMAL) CBC W AUTO DIFFERENTIAL (11/28/2020 6:50 PM FIRE HYDRANT MECHANIC) Only the most recent of3 resultswithin the time period is included. Pathologist [facility] WBC 11.4(H) 3.5 - 10.5 10 3/uL 11/28/2020 7:02 PM [employer] MECHANIC [facility] RBC 4.22 3.90 - 5.00 10 6/uL 11/28/2020 7:02 PM [facility] Hemoglobin 11.8(L) 12.0 - 15.5 g/dL 11/28/2020 7:02 PM [facility] Hematocrit 35.7 35.0 - 45.0 % 11/28/2020 7:02 PM [facility] MCV 84.6 81.0 - 97.0 fL 11/28/2020 7:02 PM [facility] MCH 28.0 28.0 - 34.0 pg 11/28/2020 7:02 PM [facility] MCHC 33.1 32.0 - 36.0 g/dL 11/28/2020 7:02 PM [facility] Platelet Count 314 150 - 400 10 3/uL 11/28/2020 7:02 PM [facility] RDW-SD 42.0 36.0 - 50.0 fL 11/28/2020 7:02 PM [facility] RDW-CV 13.8 11.2 - 14.8 % 11/28/2020 7:02 PM [facility] MPV 8.2(L) 9.3 - 12.8 fL 11/28/2020 7:02 PM [facility] nRBC Absolute 0.00 0 10 3/uL 11/28/2020 7:02 PM [facility] nRBC Auto 0.0 0 /100 WBC 11/28/2020 7:02 PM [facility] Neutrophils % 60.7 35.0 - 70.0 % 11/28/2020 7:02 PM [facility] Lymphocytes % 30.8 19.7 - 55.1 % 11/28/2020 7:02 PM [facility] Monocytes % 5.4 3.0 - 15.0 % 11/28/2020 7:02 PM [facility] Eosinophils % 2.2 0.0 - 6.0 % 11/28/2020 7:02 PM [facility] Basophil % 0.4 0.0 - 1.5 % 11/28/2020 7:02 PM [facility] Neutrophils Absolute 6.9 1.6 - 7.0 10 3/uL 11/28/2020 7:02 PM [facility] Lymphocyte Absolute 3.5(H) 0.8 - 2.9 10 3/uL 11/28/2020 7:02 PM [facility] Monocytes Absolute 0.62 0.14 - 0.66 10 3/uL 11/28/2020 7:02 PM [facility] Eosinophils Absolute 0.25 0.00 - 0.45 10 3/uL 11/28/2020 7:02 PM [facility] Basophils Absolute 0.04 0.00 - 0.06 10 3/uL 11/28/2020 7:02 PM [facility] Immature Granulocytes % 0.5 0.0 - 1.0 % 11/28/2020 7:02 PM [facility] Blood BLOOD SPECIMEN / Unknown Venipuncture / Unknown 11/28/2020 6:50 PM [employer] MECHANIC 11/28/2020 6:15 PM [employer] MECHANIC Tomy Jeffrey MD LAB - HEMATOLOGY ORD ERABLES [facility] [address] [place] [phone] [phone] * (ABNORMAL) BLOOD GASES SAURABH (11/28/2020 6:50 PM FIRE HYDRANT MECHANIC) pH Mixed Venous 7.42(H) 7.30 - 7.40 11/28/2020 6:59 PM [facility] pCO2 Mixed Venous 39(L) 40 - 46 mmHg 11/28/2020 6:59 PM [facility] pO2 Mixed Venous 20(L) 35 - 42 mmHg 11/28/2020 6:59 PM [facility] HCO3 Mixed Venous 25.1 22.0 - 26.0 mmol/L 11/28/2020 6:59 PM [facility] TCO2 Mixed Venous 26.3 25.0 - 29.0 mmol/L 11/28/2020 6:59 PM [facility] Base Excess Venous 0.7 -2.0 - 2.0 mmol/L 11/28/2020 6:59 PM [facility] Hemoglobin Mixed Venous 11.2(L) 12.0 - 15.5 g/dL 11/28/2020 6:59 PM [facility] Oxyhemoglobin Mixed Venous 31.5(L) 66.0 - 77.0 % 11/28/2020 6:59 PM [facility] Carboxyhemoglobin Venous 0.3 0.0 - 3.0 % 11/28/2020 6:59 PM [facility] Methemoglobin 1.4 0.0 - 2.0 % 11/28/2020 6:59 PM [facility] FI O2 Mixed Venous 21.0 % 2020 6:59 PM [facility] Blood BLOOD SPECIMEN / Unknown Venipuncture / Unknown 11/28/2020 6:50 PM [employer]CHANIC 11/28/2020 6:54 PM [employer] MECHANIC Tomy Jeffrey MD LAB - BLOOD GASES OR DERABLES [facility] [address] [place] [phone], [facility] [phone] * (ABNORMAL) COMPREHENSIVE METABOLIC PANEL (11/28/2020 6:50 PM FIRE HYDRANT MECHANIC) Only the most recent of3 resultswithin the time period is included. BUN 17 7 - 26 mg/dL 11/28/2020 7:23 PM [facility] Creatinine 0.7 0.6 - 1.2 mg/dL 11/28/2020 7:23 PM [facility] Sodium 137 136 - 145 mmol/L 11/28/2020 7:23 PM [facility] Potassium 3.8 3.5 - 4.5 mmol/L 11/28/2020 7:23 PM [facility] Chloride 99 98 - 107 mmol/L 11/28/2020 7:23 PM [facility] CO2 22 22 - 29 mmol/L 11/28/2020 7:23 PM [facility] Glucose 85 70 - 115 mg/dL 11/28/2020 7:23 PM [facility] Calcium 9.8 8.4 - 10.2 mg/dL 11/28/2020 7:23 PM [facility] Protein Total 8.1 6.0 - 8.3 g/dL 11/28/2020 7:23 PM [facility] Albumin 3.8 3.4 - 5.0 g/dL 11/28/2020 7:23 PM [facility] Bilirubin Total 0.3 0.2 - 1.2 mg/dL 11/28/2020 7:23 PM [facility] Alkaline Phosphatase 74 40 - 150 Units/L 11/28/2020 7:23 PM [facility] ALT 28 0 - 55 Units/L 11/28/2020 7:23 PM [facility] AST 26 5 - 34 Units/L 11/28/2020 7:23 PM [facility] Anion Gap 20(H) 8 - 18 11/28/2020 7:23 PM [facility] BUN/Creatinine Ratio 24(H) 7 - 23 11/28/2020 7:23 PM [facility] Osmolality Calculated 285 270 - 300 mOsm/kg 11/28/2020 7:23 PM [facility] Albumin/Globulin Ratio 0.9(L) 1.1 - 2.3 11/28/2020 7:23 PM [facility] eGFR >60 >60 mL/min/1.7 3 m2 11/28/2020 7:23 PM [facility] Blood BLOOD SPECIMEN / Unknown Venipuncture / Unknown 11/28/2020 6:50 PM FIRE HY[employer]ANT MECHANIC 11/28/2020 6:15 PM [facility] Tomy Jeffrey MD LAB - CHEMISTRY MARCEL TEIXEIRA [facility] Organization Address [facility]/State/[facility] Co de Phone Number [address] [phone] [phone] * HCG BETA BLOOD QUANTITATIVE (11/28/2020 6:50 PM FIRE HYDRANT MECHANIC) Beta-hCG Total Quantitative <3 <5 mIU/mL 11/28/2020 7:39 PM [facility] Comment: This assay is cleared for use [...] Unknown Venipuncture / Unknown 11/28/2020 6:50 PM FIRE HYDRANT MECHANIC 11/28/2020 6:15 PM FI[employer] HY[employer] MECHANIC Tomy Jeffrey MD LAB - CHEMISTRY MARCEL TEIXEIRA Performing Organization Address City/[facility]/ZIP Co de Phone Number [address] [address], [facility] [phone] * PHOSPHORUS BLOOD (11/28/2020 6:50 PM FIRE HYDRANT MECHANIC) Phosphorus 3.7 2.3 - 4.7 mg/dL 11/28/2020 7:[address] [employer] [address] [facility] Blood BLOOD SPECIMEN / Unknown Venipuncture / Unknown 11/28/2020 6:50 PM FIRE HYDRANT MECHANIC 11/28/2020 6:15 PM [employer] HY[employer] MECHANIC Tomy Jeffrey MD LAB - CHEMISTRY MARCEL TEIXEIRA Performing Organization Address City/[facility]/ZIP Co de Phone Number [address] [address], [place] [phone] * MAGNESIUM BLOOD (11/28/2020 6:50 PM FIRE HYDRANT MECHANIC) Magnesium 1.9 1.6 - 2.6 mg/dL 11/28/2020 7:[address] [employer] [address] [address] [facility] Blood BLOOD SPECIMEN / Unknown Venipuncture / Unknown 11/28/2020 6:50 PM FIRE HYDRANT MECHANIC 11/28/2020 6:15 PM FI[employer] HY[employer] MECHANIC Tomy Jeffrey MD LAB - CHEMISTRY MARCEL TEIXEIRA Performing Organization Address City/[facility]/ZIP Co de Phone Number [address] [address], [facility] [phone] * ALCOHOL ETHYL BLOOD (11/28/2020 6:50 PM FIRE HYDRANT MECHANIC) Interpretation Ethanol None Detected None Detected mg/dL 11/28/2020 7:[address] [address] [facility] Comment:Ethanol levels less than 10 mg/dL are resulted as None detected . Blood BLOOD SPECIMEN / Unknown Venipuncture / Unknown 11/28/2020 6:50 PM FI[employer] HYDRANT MECHANIC 11/28/2020 6:15 PM [employer] HY[employer] MECHANIC Tomy Jeffrey MD LAB - CHEMISTRY MARCEL TEIXEIRA Performing Organization Address City/[facility]/ZIP Co de Phone Number [address] [address], [facility] [phone] * TSH (11/28/2020 6:50 PM FIRE HYDRANT MECHANIC) Pathologist [facility] TSH 1.087 0.350 - 4.940 uIU/mL 11/28/2020 7:[address] [employer] [address] [facility] Blood BLOOD SPECIMEN / Unknown Venipuncture / Unknown 11/28/2020 6:50 PM FI[employer] HYDRANT MECHANIC 11/28/2020 6:15 PM FI[employer] HY[employer] MECHANIC Tomy Jeffrey MD LAB - CHEMISTRY MARCEL TEIXEIRA Performing Organization Address [facility]/ZIP Co de Phone Number [address] [phone], [facility] [phone] * ACETAMINOPHEN LEVEL (11/28/2020 6:50 PM FIRE HYDRANT MECHANIC) [facility] Acetaminophen <3.0 <30.0 mcg/mL 11/28/2020 7:[address] [address] [facility] Blood BLOOD SPECIMEN / Unknown Venipuncture / Unknown 11/28/2020 6:50 PM FIRE HYDRANT MECHANIC 11/28/2020 6:15 PM FIRE HYDRANT MECHANIC Tomy Jeffrey MD LAB - CHEMISTRY MARCEL TEIXEIRA Performing Organization Address [facility] Co de Phone Number [address] [phone], [facility] [phone] * GLUCOSE - POINT OF CARE (11/28/2020 6:44 PM FIRE HYDRANT MECHANIC) Only the most recent of2 resultswithin the time period is included. Pathologist [facility] Glucose WB/POC 86 70 - 115 mg/dL 11/28/2020 6:[address] [employer] [facility] Specimen Type Arterial/C apillary 11/28/2020 6:54 [address] FIRE [employer] [facility] Blood BLOOD SPECIMEN / Unknown 11/28/2020 6:44 PM [employer] HY[employer]ANT MECHANIC 11/28/2020 6:54 PM [employer] HY[employer] MECHANIC Dario Aponte MD LAB - POINT OF CARE ORDERABLES Performing Organization Address City/State/[facility] Co de Phone Number [facility] [address] [place] [address], [facility] [phone] * CT HEAD WO CONTRAST (11/28/2020 4:30 PM FIRE HYDRANT MECHANIC) Anatomical Region Laterality Modality Head Computed Tomogra phy 11/28/2020 4:59 PM FIRE HY[employer]ANT MECHANIC Impressions 11/29/2020 8:52 AM FIRE HY[employer]ANT MECHANIC IMPRESSION: Normal examination of the brain. No acute intracranial hemorrhage, midline shift, or significant mass effect. Dictated by Anibal Sky MD (Planisher) I, Dr. AJAY BAJWA have personally reviewed and interpreted this examination/study. This report was electronically signed by AJAY BAJWA on 11/29/2020 8:52 AM . Narrative 11/29/2020 8:[address] [address] HEAD WITHOUT CONTRAST, 11/28/2020 4:30 PM [...] mass effect. Dictated by Anibal Sky MD (Planisher) I, Dr. AJAY BAJWA have personally reviewed [...] further evaluation. Left message with the ED stenographer secretary that the prelim is available in Synapse. Dictated by Sergio Navas MD (residential property manager). This report was approved by Sergio [...] for furtherevaluation. Left message with the ED stenographer secretary that the prelim is available inSynapse. Dictated by Sergio Navas MD (residential property manager). This report was approved by Sergio [...] process. Dictated by Chin Aguilera MD (residential property manager). This report was approved by Chin [...] process. Dictated by Chin Aguilera MD (residential property manager). This report was approved by Chin Aguilera M.D. on 02/28/2017 9:[address] CHAYITO Sanderson M.D. have personally reviewed and interpreted thisexamination/study. This report was electronically signed by CHAYITO MCPHERSON M.D. on 02/28/20179:28 AM . Charisse Leyva MD DIAGNOSTIC IMAGING O RDERABLES * HCG URINE QUALITATIVE - POCT (IP) [facility] (02/28/2017 12:35 AM CDT) Test Urine negative [facility] Urine specimen (specimen) 02/28/2017 12:35 AM CDT Charisse Leyva MD LAB - POINT OF CARE ORDERABLES [facility] * (ABNORMAL) URINALYSIS W/MICROSCOPIC NO CULTURE (02/28/2017 12:33 AM CDT) Color UA Yellow Straw, Yellow, Colorless, Light Yellow [facility] Clarity UA Clear Clear [facility] Specific [place] UA 1.030 1.001 - 1.030 [facility] pH UA 5.5 5.0 - 8.0 [facility] Protein UA 20 <=20 mg/dL [facility] Glucose UA >1000(A) Negative mg/dL [facility] Ketone UA Trace(A) Negative mg/dL [facility] Bilirubin UA Negative Negative mg/dL [facility] Blood UA Negative Negative [facility] Nitrite UA Negative Negative [facility] Leukocyte Esterase Negative Negative [facility] Urobilinogen UA <2.0 <2.0 mg/dL [facility] RBC UA 4 0 - 8 /HPF [facility] WBC UA 1 0 - 2 /HPF [facility] Squamous Epithelial Cells UA 7(H) 0 - 1 /HPF [facility] Mucus UA Rare(A) None /LPF [facility] Urine specimen (specimen) 02/28/2017 12:33 AM CDT 02/28/2017 12:53 AM CDT Charisse Leyva MD LAB - URINALYSIS ORD ERABLES [address] [phone] * LIPASE BLOOD (02/28/2017 12:29 AM CDT) Pathologist [facility] Lipase 38 8 - 78 Units/L [facility] Blood specimen (specimen) BLOOD SPECIMEN / Unknown 02/28/2017 12:29 AM CDT 02/28/2017 12:52 AM CDT Charisse Leyva MD LAB - CHEMISTRY ORDE RABYAMIL Performing Organization Address City/[facility]/ZIP Co de Phone Number [address] [phone] * (ABNORMAL) CBC W/O DIFFERENTIAL (02/28/2017 12:29 AM CDT) WBC 7.8 3.5 - 10.5 10 3/uL [facility] RBC 4.33 3.90 - 5.00 10 6/uL [facility] Hemoglobin 11.6(L) 12.0 - 15.5 g/dL [facility] Hematocrit 35.4 35.0 - 45.0 % [facility] MCV 81.8 81.0 - 97.[address] [facility] MCH 26.8(L) 28.0 - 34.[address] [facility] MCHC 32.8 32.0 - 36.0 g/dL [facility] Platelet Count 250 150 - 400 10 3/uL [facility] RDW-SD 41.6 36.0 - 50.[address] [facility] RDW-CV 13.9 11.2 - 14.8 % [facility] MPV 9.0(L) 9.3 - 12.[address] [facility] nRBC Absolute 0.00 0 10 3/uL [facility] nRBC Auto 0.0 0 /100 WBC [facility] Blood specimen (specimen) BLOOD SPECIMEN / Unknown 02/28/2017 12:29 AM CDT 02/28/2017 12:52 AM CDT Charisse Leyva MD LAB - HEMATOLOGY ORD ERABLES Performing Organization Address City/State/[facility] Co de Phone Number [address] [phone] * D-DIMER (02/28/2017 12:29 AM CDT) D-Dimer Quantitative <0.27 <=0.50 mcg/mL FEU [facility] Comment: In the absence of clinical symptoms, [...] Leyva MD LAB - COAGULATION OR DERABLES [facility] [address] [phone] * EKG 12-LEAD (02/27/2017 12:00 AM CDT) EKG [facility] Comment: Exam Date/Time: Feb 27 2017 [...] available Confirmed by MD Pao, Hanane ([id number]), editor managing director CHRISTINA HASSAN ([id number]) on 03/06/2017 7:00:51 PM Referred By: REFERRING NO Confirmed By:Hanane Cedeno MD 02/27/2017 Charisse Leyva MD ECG ORDERABLES Performing Organization Address City/[facility]/ZIP Co de Phone Number [facility] * HCG URINE QUALITATIVE - POINT OF CARE (IP) (08/14/2014 2:11 AM CDT) Only the most recent of2 resultswithin the time period is included. Pathologist [facility] HCG Qual Urine Negative Negative [facility] POCT TESTING QC Verified Yes Yes [facility] POC T TESTING Urine specimen (specimen) URINE / Unknown 08/14/2014 2:11 AM CDT Paco Gore MD LAB - POINT OF CARE ORDERABLES Performing Organization Address City/[facility]/ZIP Co de Phone Number [facility] POCT TESTING [facility] [place], [place] [id number] [place] [address] * (ABNORMAL) URINALYSIS ROUTINE W/REFLEX TO CULTURE (08/14/2014 2:10 AM CDT) Only the most recent of2 resultswithin the time period is included. Color UA Yellow Straw, Yellow, Dark Yellow 08/14/2014 2:25 AM CDT [facility] Clarity UA Clear 08/14/2014 2:25 AM [facility] Specific [place] UA 1.015 1.005 - 1.030 08/14/2014 2:25 AM [facility] pH UA 6.0 5.0 - 8.0 pH 08/14/2014 2:25 AM [facility] Protein UA Trace(A) Negative 08/14/2014 2:25 AM [facility] Blood UA Trace(A) Negative 08/14/2014 2:25 AM [facility] Leukocyte UA Negative Negative 08/14/2014 2:25 AM [facility] Nitrite UA Negative Negative 08/14/2014 2:25 AM [facility] Glucose UA 3+(A) Negative 08/14/2014 2:25 AM [facility] Ketone UA Negative Negative 08/14/2014 2:25 AM [facility] Bilirubin UA Negative Negative 08/14/2014 2:25 AM [facility] Urobilinogen UA 0.2 0.1 - 1.0 EU/dL 08/14/2014 2:25 AM [facility] WBC UA Auto 5-10(A) 0-2, 2-5 #/hpf 08/14/2014 2:25 AM [facility] RBC UA Auto 0-2 0-2, 2-5 #/hpf 08/14/2014 2:25 AM [facility] Epithelial Cell UA Auto 2-5 0-2, 2-5 #/hpf 08/14/2014 2:25 AM [facility] Urine Microscopy Urine microscopy not indicated 08/14/2014 2:25 AM [facility] Reflex Status Culture not indicated 08/14/2014 2:25 AM [facility] Urine URINE SPECIMEN OBTAINED BY CLEAN CATCH PROCEDURE / Unknown 08/14/2014 2:10 AM CDT 08/14/2014 2:16 AM [facility] Paco Gore MD LAB - URINALYSIS ORD ERABLES [facility] [address] [place] [address] * HCG BLOOD QUALITATIVE (10/21/2013 1:03 PM FIRE HYDRANT MECHANIC) HCG Qual Serum Negative Negative 10/21/2013 1:31 PM FIRE HYDRANT MECHANIC [facility] Blood BLOOD SPECIMEN / Unknown Venipuncture / Unknown 10/21/2013 1:03 PM FIRE HYDRANT MECHANIC 10/21/2013 1:19 PM FIRE HY[employer]ANT MECHANIC Narrative [facility] - 10/21/2013 1:31 PM FIRE HYDRANT MECHANIC Specimens containing heterophilic antibodies may demonstrate false positive results. Specimens containing human anti-mouse antibodies may exhibit false positive or false negative results. If qualitative interpretation is inconsistant with clinical evaluation, consider confirmation by an alternative HCG method. Boy Alfonso MD LAB - CHEMISTRY MARCEL TEIXEIRA [facility] [address] [place] [address] * Stone Protocol CT (10/21/2013 1:02 PM FIRE HYDRANT MECHANIC) Anatomical Region Laterality Modality Abdomen, Pelvis Computed Tomogra phy 10/21/2013 1:35 PM FIRE HYDRANT MECHANIC Impressions 10/21/2013 1:39 PM FIRE HYDRANT MECHANIC No obstruction or definite urinary stone seen at this time. A 1.3 CM cyst is suspected in the left ovary. Narrative 10/21/2013 1:39 PM FIRE HYDRANT MECHANIC Examination: Noncontrast Abdomen and Pelvic CT Indication: [...] grammatical or syntax problems by a trained health care / medical job titles. For questions about the report, please contact [...] grammatical or syntax problems by a trained health care / medical job titles. For questions about the report, please contact the Radiology Department. IMPRESSION No obstruction or definite urinary stone seen at this time. A 1.3 CM cyst is suspected in the left ovary. Boy Alfonso MD CT ORDERABLES * (ABNORMAL) BASIC METABOLIC PANEL (CALCIUM TOTAL) (10/21/2013 12:46 PM [employer]) Glucose 147(H) 74 - 106 mg/dL 10/21/2013 1:[address] [facility] Sodium 139 136 - 145 mmol/L 10/21/2013 1:[address] [facility] Potassium 3.9 3.5 - 5.1 mmol/L 10/21/2013 1:[address] [facility] Chloride 105 98 - 107 mmol/L 10/21/2013 1:[address] [facility] CO2 26 22 - 31 mmol/L 10/21/2013 1:[address] [facility] Calcium 9.1 8.5 - 10.1 mg/dL 10/21/2013 1:[address] [facility] Anion Gap 8 5 - 15 mmol/L 10/21/2013 1:[address] [facility] BUN 17 7 - 21 mg/dL 10/21/2013 1:[address] [facility] Creatinine 0.44(L) 0.50 - 1.30 mg/dL 10/21/2013 1:[address] [facility] eGFR by MDRD >60 >60 mL/min/1.7 3m2 10/21/2013 1:[address] [facility] eGFR by MDRD >60 >60 mL/min/1.7 3m2 10/21/2013 1:[address] [facility] Blood BLOOD SPECIMEN / Unknown Venipuncture / Unknown 10/21/2013 12:46 PM FIRE HYDRANT MECHANIC 10/21/2013 12:56 PM [facility] Boy Alfonso MD LAB - CHEMISTRY MARCEL TEIXEIRA [facility] Organization Address City/State/ZIP Co de Phone Number [facility] [address] [place] [address] * (ABNORMAL) URINALYSIS ROUTINE AUTO (10/21/2013 11:44 AM [facility]) Color UA Yellow Straw, Yellow, Dark Yellow 10/21/2013 11:[address] [facility] Clarity UA Cloudy 10/21/2013 11:[address] [facility] Specific [place] UA 1.029 1.005 - 1.030 10/21/2013 11:[address] [facility] pH UA 5.0 5.0 - 8.0 pH 10/21/2013 11:[address] [facility] Protein UA 2+(A) Negative 10/21/2013 11:[address] [facility] Blood UA 2+(A) Negative 10/21/2013 11:[address] [facility] Leukocyte UA Negative Negative 10/21/2013 11:[address] [facility] Nitrite UA Negative Negative 10/21/2013 11:[address] [facility] Glucose UA Negative Negative 10/21/2013 11:[address] [facility] Ketone UA Negative Negative 10/21/2013 11:[address] [facility] Bilirubin UA 1+(A) Negative 10/21/2013 11:[address] [facility] Urobilinogen UA 0.2 0.1 - 1.0 EU/dL 10/21/2013 11:[address] [facility] WBC UA Auto 10-20(A) 0-2, 2-5 #/hpf 10/21/2013 11:56 AM FIRE HYDRANT MECHANIC [facility] RBC UA Auto 2-5 0-2, 2-5 #/hpf 10/21/2013 11:[address] [facility] Epithelial Cell UA Auto 5-10(A) 0-2, 2-5 #/hpf 10/21/2013 11:[address] [facility] Hyaline Casts UA Auto 2-5(A) 0 - 2 #/lpf 10/21/2013 11:[address] [facility] Urine URINE SPECIMEN OBTAINED BY CLEAN CATCH PROCEDURE / Unknown Collection / Unknown 10/21/2013 11:44 AM FIRE HYDRANT MECHANIC 10/21/2013 11:49 AM FIRE HYDRANT MECHANIC Boy Alfonso MD LAB - URINALYSIS ORD ERABLES [facility] [address] [place] [address] * (ABNORMAL) CULTURE URINE (10/19/2013 11:50 AM FIRE HYDRANT MECHANIC) Culture 10,000-50,000 CFU/mL Streptococcus agalactiae (Group B)(A) 10/21/2013 8:34 AM [facility] Culture <10,000 CFU/mL normal enteric marin 10/21/2013 8:34 AM [facility] Urine URINE SPECIMEN OBTAINED BY CLEAN CATCH PROCEDURE / Unknown 10/19/2013 11:50 AM FIRE HYDRANT MECHANIC 10/19/2013 11:50 AM [facility] Narrative [facility] - 10/21/2013 8:34 AM [facility] Susceptibility testing of penicillin, other beta-lactam antibiotics, and vancomycin is not necessary for beta-hemolytic streptococci groups A,B,C and G because resistant strains have not been recognized. Anyi Mullins MD LAB - MICROBIOLOGY O RDERABLES [facility] [address] [place] [address], [facility] Care Teams Store Sales Leader Relationship Specialty Start Date End Date Azam Jackson, ETL ANALYST DEVELOPER-LABORER [employer] [address] [facility] [place] [address] PCP - General Nurse Practitioner Gerontology 11/28/20
--- OUTSIDE RECORDS SUMMARY | 2025-01-10 22:03 | XMS_ITS | Encounter Summary ---
Author Organization [facility] Address [address] [place] [address] Phone Care Team Providers Care Consulting Services Project Manager Name Role Phone Unknown, Notinfile Primary Care Provider Unavail able Dorota Martinez MD Primary Care Provider [phone] Andrei Clark MD Primary Care Provider [phone] Kandace Freedman OT Unavailable [phone] Christina Brunson MD Unavailable [phone] Encounter Details Date Type Department Care Team (Late st Contact Info) Description 02/07/2019 Ophth Exam [facility] Ophthalmology [address] [place] [address] 1st [place] [id number] Diana Leon MD PhD [address] [place] [address] Social History Tobacco Use Types Packs/Day Years [...] on file 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 Gender Identity Not on file Sexual Orientation [...] no RT/RD/necrosis no RT/RD/necro sis Care Teams Consulting Services Project Manager Relationship Specialty Start Date End Date Unknown, Notinfile PCP - General 02/04/19 02/10/19 Dorota Martinez MD [address] [place] [address] [address] [place] [address] PCP - General 02/11/19 12/10/20 Andrei Clark MD [address] [facility] [address] [place] [address] PCP - General Internal Medicine 12/11/20 Kandace Freedman OT [address] [place] [address] Occupational Therapist Occupational Therapy 03/15/21 Christina Brunson MD [address] [place] [address] Obstetrics and Gynecology 08/02/22 documented as of this encounter
--- OUTSIDE RECORDS SUMMARY | 2025-01-10 22:03 | XMS_ITS | Clinical Summary ---
Author Organization [facility] [employer] Address [address] [place] [address] Care Team Providers Care Railway Shunter Name Role Phone Azam Jackson APRN-CARBON SEQUESTRATION PLANT MANAGER Primary Care Provide r Source Comments [facility],non-owned Affiliates and Associated Physician Practices is amultiple site organization consisting of ambulatory clinics and hospital sitesin [place], [place], [place] and [place]. This disclosure is being madepursuant to the Care Everywhere program and may not contain all information available regarding this patient. Last updated 18.[facility] [employer] Allergies Active Allergy Reactions Criticality Noted Date [...] Gluc Sensor (FREESTYLE AYDEE 14 DAY SENSOR) [facility] 12/29/2020 Active FARXIGA 10 MG tablet TAKE 1 TABLET BY MOUTH ONCE DAILY IN THE MORNING FOR 90 DAYS 07/23/2021 Active TRULICITY 3 MG/0.5ML injection INJECT 1 SUB Q ONCE A WEEK IN THE MORNING 07/23/2021 Active ergocalciferol (DRISDOL) 1.25 MG (16025 UT) capsule Vitamin D2 1,250 mcg (50,000 [...] Department Care Team Description 01/06/2025 12:00 PM LONG TERM ACUTE CARE REGISTERED NURSE Video Visit [facility] Weight Management Services [address], [address] [place] [address] Morbid obesity (HCC) 01/06/2025 Travel 01/01/2025 Travel 12/27/2024 1:00 PM LONG TERM ACUTE CARE REGISTERED NURSE Office Visit [facility] Weight Management Services [address] [facility] [facility] [address] [place] [address] Chin Mcleod MD Morbid obesity (HCC) (Primary [...] Comments Blood Pressure 165/85 12/27/2024 12:43 PM LONG TERM ACUTE CARE REGISTERED NURSE Pulse 107 12/27/2024 12:43 PM LONG TERM ACUTE CARE REGISTERED NURSE Temperature 36.8 C (98.2 F) 11/28/2020 10:01 PM LONG TERM ACUTE CARE REGISTERED NURSE Respiratory Rate 17 11/28/2020 10:01 PM LONG TERM ACUTE CARE REGISTERED NURSE Oxygen Saturation 97% 12/27/2024 12:43 PM LONG TERM ACUTE CARE REGISTERED NURSE Inhaled Oxygen Concentration - - Weight 103 kg (227 lb) 12/27/2024 12:43 PM LONG TERM ACUTE CARE REGISTERED NURSE Height 162.6 cm (5' 4 ) 12/27/2024 12:43 PM LONG TERM ACUTE CARE REGISTERED NURSE Body Mass Index 38.96 12/27/2024 12:43 PM LONG TERM ACUTE CARE REGISTERED NURSE Plan of Treatment Upcoming Encounters Date Type Department Care Team (Late st Contact Info) Description 01/16/2025 8:15 AM LONG TERM ACUTE CARE REGISTERED NURSE Clinical Support [facility] Weight Management Services [address] [facility] [address] [place] [address] 01/16/2025 10:00 AM LONG TERM ACUTE CARE REGISTERED NURSE Appointment [facility] Imaging Services - Radiology [address] [place] [address] [place] [address] [place] [address] Health Maintenance Due Date Last [...] LAB - POINT OF CAR E ORDERABLES [facility] [address] [phone] from Last 3 Months or Most Recently Relevant to Health Maintenance Care Teams Railway Shunter Relationship Specialty Start Date End Date Azam Jackson, EMPLOYMENT CONSULTANT-CARBON SEQUESTRATION PLANT MANAGER [address] [place] [address] PCP - General Nurse Practitioner Gerontology 11/28/20
--- OUTSIDE RECORDS SUMMARY | 2025-01-10 22:03 | XMS_ITS | CONTINUITY OF CARE DOCUMENT ---
Author Name padmini, padmini Address Unknown Organization [facility] Address [address] [facility] [address] [facility] [address] [place] [address] Phone [phone] Care Team Providers Care Firer Electric Locomotive Name Role Phone Chitra RUEDA, Lucio Unavailable CHITRA RUEDA, MIGUEL Unavailable [phone] ABELINO RUEDA, FABIÁN Unavailable [phone] PROBLEMS Condition Status Date Provider Notes Migraine [...] Payer name Policy type / Coverage type [place] red democrat ID [facility] [id number]
--- OUTSIDE RECORDS SUMMARY | 2025-01-10 22:03 | XMS_ITS | Referral Summary ---
Author Organization [facility] Address [address] [place] [address] Care Team Providers Care Bandsaw Operator Name Role Phone JacksonAzam APRN-GAS METER CHECKER Primary Care Provide r Source Comments [facility],non-owned Affiliates and Associated Physician Practices is amultiple site organization consisting of ambulatory clinics and hospital sitesin [place], [place], [place] and [place]. This disclosure is being madepursuant to the Care Everywhere program and may not contain all information available regarding this patient. Last updated 18.[facility] Health Encounters Date Type Department Care Team Description 01/06/2025 Travel 01/06/2025 12:00 PM MANAGER SHAREPOINT Video Visit [facility] Weight Management Services [address] [facility] [place] [address] Morbid obesity (HCC) 01/01/2025 Travel 12/27/2024 1:00 PM MANAGER SHAREPOINT Office Visit [facility] Weight Management Services [address] [facility], [address] [place] [address] Chin Mcleod MD Morbid obesity (HCC) (Primary [...] Gluc Sensor (FREESTYLE AYDEE 14 DAY SENSOR) [facility] 12/29/2020 Active FARXIGA 10 MG tablet TAKE 1 TABLET BY MOUTH ONCE DAILY IN THE MORNING FOR 90 DAYS 07/23/2021 Active TRULICITY 3 MG/0.5ML injection INJECT 1 SUB Q ONCE A WEEK IN THE MORNING 07/23/2021 Active ergocalciferol (DRISDOL) 1.25 MG (35438 UT) capsule Vitamin D2 1,250 mcg (50,000 [...] Comments Blood Pressure 165/85 12/27/2024 12:43 PM MANAGER SHAREPOINT Pulse 107 12/27/2024 12:43 PM MANAGER SHAREPOINT Temperature 36.8 C (98.2 F) 11/28/2020 10:01 PM MANAGER SHAREPOINT Respiratory Rate 17 11/28/2020 10:01 PM MANAGER SHAREPOINT Oxygen Saturation 97% 12/27/2024 12:43 PM MANAGER SHAREPOINT Inhaled Oxygen Concentration - - Weight 103 kg (227 lb) 12/27/2024 12:43 PM MANAGER SHAREPOINT Height 162.6 cm (5' 4 ) 12/27/2024 12:43 PM MANAGER SHAREPOINT Body Mass Index 38.96 12/27/2024 12:43 PM MANAGER SHAREPOINT Plan of Treatment Upcoming Encounters Date Type Department Care Team (Late st Contact Info) Description 01/16/2025 8:15 AM MANAGER SHAREPOINT Clinical Support [facility] Weight Management Services [address] [facility] [address] [place] [address] 01/16/2025 10:00 AM MANAGER SHAREPOINT Appointment [facility] Imaging Services - Radiology [address] [place] [address] [place] [address] [facility] [address] [place] [address] Procedures Procedure Name Priority Date/Time Associated Diagnosis [...] OF CAR E ORDERABLES Performing Organization Address City/State/[facility] Co de Phone Number [facility] [address] [phone] from Last 3 Months or Most Recently Relevant to Health Maintenance Care Teams Bandsaw Operator Relationship Specialty Start Date End Date Azam Jackson, RETURNED GOODS RECEIVING CLERK-GAS METER CHECKER [address] [facility] [place] [address] PCP - General Nurse Practitioner Gerontology 11/28/20
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
--- OUTSIDE RECORDS SUMMARY | 2025-01-10 22:04 | XMS_ITS | Referral Summary ---
Author Organization [facility] [place] [address] Address [address] [place] [address] Care Team Providers Care Program Management Manager Name Role Phone Andrei Clark MD Primary Care Provider [phone] Kandace Freedman OT Unavailable [phone] Christina Brunson MD Unavailable [phone] Allergies Active Allergy Reactions Criticality Noted Date [...] mellitus 03/31/2022 Atherosclerotic heart diseas e of [place] coronary artery without angina pectoris 12/31/2020 Unspecified [...] this with Dr. Pérez. Recs: 1. [facility] (she understands she needs to be the one to call) for CBT for FND, anxiety, depression. 2. Consider Valium after I discuss with Dr. Pérez. 3. Continue with psychiatry. 4. Start positive self talk and meditative exercises for spells . 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): She has abnormal involuntary movements including vocalizations, [...] video EEG (scheduled for next month at [facility]) to clarify whether any aspect of [...] complication, without long-term current use of insulin ([facility]) 04/04/2017 Polycystic ovaries 04/04/2017 Hypertensive chronic kidney [...] on file Legal Sex Female 4:48 PM WASTEWATER SUPERVISOR Gender Identity Not on file Sexual [...] Diagnosis Comments EGFR Routine 10/17/2022 5:08 PM WASTEWATER SUPERVISOR Cyst of left ovary HEMOGLOBIN A1C STAT 08/23/2019 5:28 PM CDT from Last 3 Months or Most Recently Relevant to Health Maintenance Results * (ABNORMAL) eGFR (10/17/2022 5:08 PM WASTEWATER SUPERVISOR) eGFR 82(L) 90 - 130 mL/min/1. 73 [...] last reviewed 2021. Blood 10/17/2022 5:08 PM WASTEWATER SUPERVISOR 10/17/2022 5:58 PM WASTEWATER SUPERVISOR us Premal Elia Jackson MD LAB BLOOD ORDERABLES Fin al Result [facility] Department [place] [address] * (ABNORMAL) Hemoglobin A1c (08/23/2019 5:28 PM CDT) Hgb A1C 11.1(H) 4.0 - 5.6 % LUCEIN SAM Estimated Average Glucose 272 mg/dL LUCIEN SAM Comment: The ADA recommends reporting an estimated Average Glucose (eAG) with all Hemoglobin A1c results using the equation derived from a study of 507 normal and diabetic adults. Minority populations were underrepresented and children were not included. (Diabetes Care 31:1808-8390, 2008). The eAG is not equivalent to a fasting glucose. Blood specimen (specimen) 08/23/2019 5:28 PM CDT 08/23/2019 6:04 PM CDT us Notinfile Unknown LAB BLOOD ORDERABLES Final Res ult LUCIEN [facility] [address] [place] [address] from Last 3 Months or Most Recently Relevant to Health Maintenance Insurance [facility] Member Subscriber Plan / Payer (Ef fective 2019-Present) Name:Kylee Guo Relation to Subscriber:Self Name:Kylee Guo Payer ID:[id number] (NAIC) Group ID:[id number] Type:Adea Address: [address] [facility] [employer] [facility] [employer] Advance Directives For more information, please contact: [phone] * Full Code (Latest Code Status on File) Date Activated Date Inactivated Comments 01/25/2021 9:49 AM 01/31/2021 8:38 PM * Full Code Date Activated Date Inactivated Comments 02/11/2019 4:38 PM 02/13/2019 11:05 AM Care Teams Program Management Manager Relationship Specialty Start Date End Date Andrei Clark MD PCP - General Internal Medicine 12/11/20 Kandace Freedman OT [address] [place] [address] Occupational Therapist Occupational Therapy 03/15/21 Christina Brunson MD [address] [place] [address] Obstetrics and Gynecology 08/02/22
--- OUTSIDE RECORDS SUMMARY | 2025-01-10 22:04 | XMS_ITS | Clinical Summary ---
Author Organization [facility] [place] [address] Address [address] [place] [address] Care Team Providers Care Tattoo Artist Name Role Phone Andrei Clakr MD Primary Care Provider [phone] Kandace Freedman OT Unavailable [phone] Christina Brunson MD Unavailable [phone] Allergies Active Allergy Reactions Criticality Noted Date [...] mellitus 03/31/2022 Atherosclerotic heart diseas e of [place] coronary artery without angina pectoris 12/31/2020 Unspecified [...] this with Dr. Pérez. Recs: 1. [facility] (she understands she needs to be the one to call) for CBT for FND, anxiety, depression. 2. Consider Valium after I discuss with Dr. Pérez. 3. Continue with psychiatry. 4. Start positive self talk and meditative exercises for spells . 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): She has abnormal involuntary movements including vocalizations, [...] video EEG (scheduled for next month at [facility]) to clarify whether any aspect of [...] long-term current use of insulin ([facility]) 04/04/2017 Polycystic ovaries 04/04/2017 Hypertensive [...] disease DVT (deep venous thrombosis) ([facility]) (HCC) Idiopathic intracranial hypertension Polycystic kidney [...] file Legal Sex Female 4:48 PM RUBBER BALL FINISHER Gender Identity Not on file Sexual Orientation [...] Diagnosis Comments EGFR Routine 10/17/2022 5:08 PM RUBBER BALL FINISHER Cyst of left ovary HEMOGLOBIN A1C STAT 08/23/2019 5:28 PM CDT from Last 3 Months or Most Recently Relevant to Health Maintenance Results * (ABNORMAL) eGFR (10/17/2022 5:08 PM RUBBER BALL FINISHER) eGFR 82(L) 90 - 130 mL/min/1. 73 [...] last reviewed 2021. Blood 10/17/2022 5:08 PM RUBBER BALL FINISHER 10/17/2022 5:58 PM RUBBER BALL FINISHER us Premal Elia Jackson MD LAB BLOOD ORDERABLES Fin al Result [facility] Department [place] [address] * (ABNORMAL) Hemoglobin A1c (08/23/2019 5:28 PM CDT) Hgb A1C 11.1(H) 4.0 - 5.6 % LUCIEN SAM Estimated Average Glucose 272 mg/dL LUCIEN SAM Comment: The ADA recommends reporting an estimated Average Glucose (eAG) with all Hemoglobin A1c results using the equation derived from a study of 507 normal and diabetic adults. Minority populations were underrepresented and children were not included. (Diabetes Care 31:5082-7341, 2008). The eAG is not equivalent to a fasting glucose. Blood specimen (specimen) 08/23/2019 5:28 PM CDT 08/23/2019 6:04 PM CDT us Notinfile Unknown LAB BLOOD ORDERABLES Final Res ult LUCIEN [facility] [address] [place] [address] from Last 3 Months or Most Recently Relevant to Health Maintenance Insurance [facility] Member Subscriber Plan / Payer (Ef fective 2019-Present) Name:Kylee Guo Relation to Subscriber:Self Name:Kylee Guo Payer ID:[id number] (NAIC) Group ID:[id number] Type:[employer] Address: [address] [facility] [employer] [facility] [employer] Advance Directives For more information, please contact: [phone] * Full Code (Latest Code Status on File) Date Activated Date Inactivated Comments 01/25/2021 9:49 AM 01/31/2021 8:38 PM * Full Code Date Activated Date Inactivated Comments 02/11/2019 4:38 PM 02/13/2019 11:05 AM Care Teams Tattoo Artist Relationship Specialty Start Date End Date Andrei Clark MD PCP - General Internal Medicine 12/11/20 Kandace Freedman OT [address] [place] [address] Occupational Therapist Occupational Therapy 03/15/21 Christina Brunson MD [address] [place] [address] Obstetrics and Gynecology 08/02/22
[2025-01-10] MEDS: SODIUM CHLORIDE 0.9% IV 1,000 ML 999 ML IV CONT ×2 (22:35→23:47)
[2025-01-10 23:28] LABS: Add Urine Microscopic? YES; Appearance Urine Clear (Clear); Bacteria Urine Rare /hpf; Bilirubin Urine Negative (Negative); Blood Urine Negative (Negative); Color Urine Yellow (Yellow); Glucose Urine UA 3+ mg/dL (Negative); Ketones Urine Negative (Negative); Leukocyte Esterase Ur Negative LEU/UL (Negative); Need Manual Microscopic Reviewed; Nitrate Urine Negative (Negative); Protein Urine 1+ mg/dL (Negative); RBC Urine 0-2 /hpf (0-2); Specific Grav Ur 1.027 (1.001-1.035); Squamous Epithelial Cell Urine Moderate /hpf (Few); Urobilinogen Urine 0.2 mg/dL (<2.0)
[2025-01-11] VITALS (8 sets, daily range): BP systolic 120–140; BP diastolic 67–86; PULSE 101–112; RESP 15–23; TEMP 36.6–36.8; O2SAT 97–100; BMI 38.2
[2025-01-11 00:21] LABS: Beta-Hydroxybutyrate/Acetoacetate 0.51 mmol/L (0.02-0.27)
[2025-01-11 02:36] LABS: Alanine Aminotransferase 19 U/L (6-35); Alkaline Phosphatase 87 U/L (38-126); Anion Gap 12 mmol/L (4-12); Aspartate Amino Transferase 23 U/L (14-36); Bilirubin,Total 0.5 mg/dL (0.2-1.3); Blood Urea Nitrogen 38 mg/dL (7-17); Calcium 8.7 mg/dL (8.4-10.2); Carbon Dioxide 18 mmol/L (22-30); Chloride 108 mmol/L (98-107); Estimated CRCL calculation 77 ml/min; Estimated Glomerular Filt Rate 55; Glucose 180 mg/dL (65-110); Potassium 3.9 mmol/L (3.4-5.0); Sodium 138 mmol/L (137-145)
[2025-01-11] MEDS: ACETAMINOPHEN 325 MG TABLET 650 MG PO (03:31)
[2025-01-11] MEDS: SODIUM CHLORIDE 0.9% IV 1,000 ML 150 ML IV CONT ×2 (03:32→09:46)
[2025-01-11 03:37] LABS: Glucose Point of Care 153 mg/dl (65-105)
--- NOTE | 2025-01-11 04:07 | PC.NURSE ---
Pt bladder scanned at this time. 320mL remaining in patient. Pt voided, and 25 mL retain in patient. No bal required at this time. Pt c/o pain in lower abd region. Pt provided PO tyelnol to help with discomfort.
--- NOTE | 2025-01-11 07:52 | P.HP_ITS ---
H&P: HPI History of Present Illness Date/Time: 01/11/25 07:52 [facility] Past Medical History Medical History Yeast infection Colon, diverticulosis Hematochezia Constipation Complex cyst of left ovary surgical removal SOB (shortness of breath) Bilateral hand pain Chronic kidney disease CRP elevated Myalgia Myalgia BOBBY positive (~2020) Degenerative joint disease of cervical and lumbar spine Pseudotumor cerebri History of Pettit's palsy Kidney cysts Followed by a clinical data management manager in [place]. Anxiety Migraine headache Polycystic ovarian syndrome Gastroesophageal reflux disease Insulin dependent type 2 diabetes mellitus Hemoglobin A1c on 11/12/2020 was 7.9%. Dyslipidemia Empty sella syndrome Fibromyalgia Hypertension Surgical History Surgical History History of esophagogastroduodenoscopy (EGD) History of unilateral oophorectomy History of bilateral salpingectomy History of tubal ligation Delivery by section xs 2 History of laparoscopic cholecystectomy (~2005) Family History Family History Father Diabetes mellitus Hypertension Myocardial infarct Heart disease Mother Diabetes mellitus Heart disease Sibling Narcolepsy and cataplexy Legal Guardian No problems noted. Grandparent Breast cancer Social History Social History Social History: The patient is and lives in [place] with her teenage son and daughter. She works for the [employer]. She smoked about a half a pack of cigarettes a day and quit in June 2020. No alcohol or illicit substance abuse. She designates her daughter Kiesha as her surrogate decision maker and she wishes to be a full code. Smoking packs per day: 1 Smoking cigarettes per day: 20.0 Years smoked: 20 Smoking pack-years: 20.00 Smoking status: Former smoker Tobacco type: cigarettes Second hand tobacco smoke exposure: Yes Smoking end date: 06/29/20 Alcohol intake: never Substance use: never Substance use type: does not use Other substance usage details: Previously used marijuana; denies currently Last use: DAILY Do You Feel Safe in your Home?: Yes Lack of Transportation: No Lack of Food: Never True Current Housing: I Have Housing Concerned About Future Housing: No Difficulty Paying Gas/Electric Bills: No Difficulty Paying for Meds: No Currently Unemployed: No Education: Associate Degree Difficulty w/ Childcare or Family Care: No Living arrangements: with family Occupation/Education: occupation Additional occupation/education comments: [employer] Gender identity (if verbalized by the patient): Female Sexual Orientation (if Verbalized by the Patient): Bisexual Spiritual care concerns: No Meds Home Medications and Allergies Home Medications ?Medication ?Instructions ?Recorded ?Confirmed ?Type metformin 500 mg tablet,extended 500 mg PO DAILY 04/30/20 01/10/25 History release 24 hr albuterol sulfate 90 mcg/actuation 1 inh inhalation PRN PRN Shortness 07/06/20 01/10/25 History aerosol inhaler (ProAir HFA) Of Breath insulin degludec 200 unit/mL (3 40 unit subcut HS 07/06/20 01/10/25 History mL) subcutaneous pen (Tresiba FlexTouch U-200 insulin) rosuvastatin 10 mg tablet (Crestor) 10 mg PO DAILY 08/09/20 01/10/25 History dapagliflozin propanediol 10 mg 10 mg PO DAILY 04/20/22 01/10/25 History tablet (Farxiga) aspirin 81 mg tablet,delayed 81 mg PO DAILY 11/10/24 01/10/25 History release bupropion HCl 150 mg 24 hr tablet, 150 mg PO DAILY 11/10/24 01/10/25 History extended release omeprazole 20 mg capsule,delayed See Rx Instructions .Route 12/24/24 01/10/25 Rx release .COMPLEX #30 caps fluconazole 150 mg tablet 150 mg PO PRN PRN yeast infections 01/10/25 01/10/25 History valsartan 320 12.5 tablet PO DAILY 01/10/25 01/10/25 History mg-hydrochlorothiazide 12.5 mg tablet Allergies Allergy/AdvReac Type Severity Reaction Status Date / Time metoclopramide AdvReac Severe PANIC Verified 01/11/25 03:36 ATTACKS ondansetron AdvReac Severe PANIC Verified 01/11/25 03:36 ATTACKS prochlorperazine (From AdvReac Severe PANIC Verified 01/11/25 03:36 Compazine) ATTACKS promethazine AdvReac Severe PANIC Verified 01/11/25 03:36 ATTACKS adhesive tape AdvReac Intermediate Rash Verified 01/11/25 03:36 Vital Signs Vital Signs - 24 hr 01/10/25 14:55 01/10/25 17:34 01/11/25 03:26 Temperature 97.9 F 97.9 F Pulse Rate 115 H 105 H Respiratory Rate 16 20 16 Blood Pressure 139/76 121/75 Pulse Oximetry 99 99 97 Oxygen Delivery 01/11/25 03:27 01/11/25 03:38 01/11/25 04:11 Temperature 98.3 F Pulse Rate 106 H 112 H 105 H Respiratory Rate 15 23 H 16 Blood Pressure 120/75 140/86 Pulse Oximetry 100 100 100 Oxygen Delivery 01/11/25 05:09 Temperature Pulse Rate 105 H Respiratory Rate 16 Blood Pressure Pulse Oximetry 100 Oxygen Delivery Room Air H&P: Results Labs Labs: Short CBC 01/10/25 Range/Units 17:33 WBC 9.2 (4.5-10.0) K/mm3 Hgb 9.8 L (12.0-15.0) g/dL Hct 34.1 L (37.0-47.0) % Plt Count 345 (150-375) k/mm3 BMP 01/10/25 01/11/25 17:33 02:21 Sodium 139 138 Potassium 4.3 3.9 Chloride 104 108 H Carbon Dioxide 19 L 18 L BUN 42 H D 38 H Creatinine 1.31 H 1.10 H Glucose 209 H 180 H Calcium 9.9 8.7 Liver Function 01/10/25 01/11/25 Range/Units 17:33 02:21 Total Bilirubin 0.6 0.5 (0.2-1.3) mg/dL AST 22 23 (14-36) U/L ALT 22 19 (6-35) U/L Alkaline Phosphatase 101 87 (38-126) U/L Albumin 4.6 4.0 (3.5-5.1) g/dL Urine 01/10/25 Range/Units 22:35 Urine Color Yellow (Yellow) Urine Appearance Clear (Clear) Urine pH 5.0 (5.0-9.0) Ur Specific [place] 1.027 (1.001-1.035) Urine Protein 1+ H (Negative) mg/dL Urine Glucose (UA) 3+ H (Negative) mg/dL
[2025-01-11 08:08] LABS: Glucose Point of Care 142 mg/dl (65-105)
[2025-01-11] MEDS: VALSARTAN 160 MG TABLET 320 MG PO (09:42)
[2025-01-11] MEDS: hydroCHLOROthiazide 12.5 MG CAPSULE PO (09:42)
[2025-01-11] MEDS: ASPIRIN 81 MG ENTERIC TABLET PO (09:42)
[2025-01-11] MEDS: PANTOPRAZOLE 40 MG TABLET PO (09:43)
[2025-01-11] MEDS: EMPAGLIFLOZIN 25 MG TABLET BY MOUTH (09:43)
[2025-01-11] MEDS: buPROPion HCL XL (24 HR) 150 MG TABCR PO (09:43)
[2025-01-11 11:39] LABS: Glucose Point of Care 197 mg/dl (65-105)
[2025-01-11 12:02] LABS: Influenza A QL RT-PCR Negative (Negative); Influenza B QL RT-PCR Negative (Negative); RSV RNA, RT-PCR Negative (Negative); SARS-CoV-2 RNA PCR Negative (Negative)
--- NOTE | 2025-01-11 13:12 | P.SS_ITS ---
Same Day Admit/Disch: HPI History of Present Illness Chief complaint: Dehydration, acute kidney injury Narrative: Kylee Guo is a 39 year old female with PCOS, hyperlipidemia, hypertension, diabetes type 2 presents the hospital with acute right flank pain. Patient states the last week she ran out of insulin for about 3 days however she has been taking her insulin regularly since Monday and has been adjusting her doses with her life science technician based on her sugars. In addition to flaking pain increasing for about a week patient also complains of shortness of breath with minimal activity and myalgias. CT abdomen pelvis showed diffuse hepatic steatosis in uterine fibroids. Lab work in the ED shows JOAQUÍN with creatinine of 1.31, glucose of 248, hemoglobin A1c of 9.9, phosphorus of 4.6, hydroxybutyrate 0.51, urine is negative for infection with 3+ glucose, chest x-ray is clear. Influenza a, B, RSV and COVID negative. [facility] Past Medical History Medical History Yeast infection Colon, diverticulosis Hematochezia Constipation Complex cyst of left ovary surgical removal SOB (shortness of breath) Bilateral hand pain Chronic kidney disease CRP elevated Myalgia Myalgia BOBBY positive (~2020) Degenerative joint disease of cervical and lumbar spine Pseudotumor cerebri History of Pettit's palsy Kidney cysts Followed by a occupational therapist per diem in [place]. Anxiety Migraine headache Polycystic ovarian syndrome Gastroesophageal reflux disease Insulin dependent type 2 diabetes mellitus Hemoglobin A1c on 11/12/2020 was 7.9%. Dyslipidemia Empty sella syndrome Fibromyalgia Hypertension Surgical History Surgical History History of esophagogastroduodenoscopy (EGD) History of unilateral oophorectomy History of bilateral salpingectomy History of tubal ligation Delivery by section xs 2 History of laparoscopic cholecystectomy (~2005) Family History Family History Father Diabetes mellitus Hypertension Myocardial infarct Heart disease Mother Diabetes mellitus Heart disease Sibling Narcolepsy and cataplexy Legal Guardian No problems noted. Grandparent Breast cancer Social History Social History Social History: The patient is and lives in [place] with her teenage son and daughter. She works for the [employer]. She smoked about a half a pack of cigarettes a day and quit in June 2020. No alcohol or illicit substance abuse. She designates her daughter Kiesha as her surrogate decision maker and she wishes to be a full code. Smoking packs per day: 1 Smoking cigarettes per day: 20.0 Years smoked: 20 Smoking pack-years: 20.00 Smoking status: Former smoker Tobacco type: cigarettes Second hand tobacco smoke exposure: Yes Smoking end date: 06/29/20 Alcohol intake: never Substance use: never Substance use type: does not use Other substance usage details: Previously used marijuana; denies currently Last use: DAILY Do You Feel Safe in your Home?: Yes Lack of Transportation: No Lack of Food: Never True Current Housing: I Have Housing Concerned About Future Housing: No Difficulty Paying Gas/Electric Bills: No Difficulty Paying for Meds: No Currently Unemployed: No Education: Associate Degree Difficulty w/ Childcare or Family Care: No Living arrangements: with family Occupation/Education: occupation Additional occupation/education comments: [employer] Gender identity (if verbalized by the patient): Female Sexual Orientation (if Verbalized by the Patient): Bisexual Spiritual care concerns: No Same Day Admit/Disch: Med Pre-admit Medications Home Medications ?Medication ?Instructions ?Recorded ?Confirmed ?Type metformin 500 mg tablet,extended 500 mg PO DAILY 04/30/20 01/10/25 History release 24 hr albuterol sulfate 90 mcg/actuation 1 inh inhalation PRN PRN Shortness 07/06/20 0 01/10/25 History aerosol inhaler (ProAir HFA) Of Breath insulin degludec 200 unit/mL (3 40 unit subcut HS 07/06/20 01/10/25 History mL) subcutaneous pen (Tresiba FlexTouch U-200 insulin) rosuvastatin 10 mg tablet (Crestor) 10 mg PO DAILY 08/09/20 01/10/25 History dapagliflozin propanediol 10 mg 10 mg PO DAILY 04/20/22 01/10/25 History tablet (Farxiga) aspirin 81 mg tablet,delayed 81 mg PO DAILY 11/10/24 01/10/25 History release bupropion HCl 150 mg 24 hr tablet, 150 mg PO DAILY 11/10/24 01/10/25 History extended release omeprazole 20 mg capsule,delayed See Rx Instructions .Route 12/24/24 01/10/25 Rx release .COMPLEX #30 caps fluconazole 150 mg tablet 150 mg PO PRN PRN yeast infections 01/10/25 01/10/25 History valsartan 320 12.5 tablet PO DAILY 01/10/25 01/10/25 History mg-hydrochlorothiazide 12.5 mg tablet Review of Systems Review of Systems 12 systems were reviewed and are negative except for as per HPI. Exam Narrative: General: well appearing, appears stated age. HEENT: normocephalic, atraumatic. Mucous membranes moist. EOMI, PERRLA, bilateral sclera anicteric, no conjunctival injection. Neck supple without JVD, lymphadenopathy, or bruit. Respiratory: clear to ascultation bilaterally. No rales/rhonic/wheezes. Cardiovascular: Regular rate and rhythm, normal S1-S2 upon ascultation. No murmurs, rubs, or clicks. PMI is nondisplaced, capillary refill less than 3 second. Abdomen: Soft, round, no pulsatile masses, nondistended and nontender. No rebound, no guarding. No CVA tenderness, no hepatosplenomegaly. Bowel sounds present to all four quadrants. No high pitch or tinkling sounds, resonant to percussion. Extremities: No cyanosis, clubbing, or edema present. Pulses are palpable 2/2. Active ROM to all four extremities. Neuro: Alert and orientated x 4. PERRLA. Cranial nerves 2-12 intact without focal deficit. Skin: Warm, dry, and intact, without rash, erythema, or lesion. Psych: pleasant, cooperative, normal speech, normal affect, no hallucinations, no dysarthia DS: Data Data Completed and Pending Labs on day of discharge: Labs from last 24 hours 01/11/25 01/11/25 01/11/25 11:24 11:10 07:45 WBC RBC Hgb Hct MCV MCH MCHC RDW Plt Count MPV Immature Gran % (Auto) Neut % (Auto) Lymph % (Auto) [place] % (Auto) Eos % (Auto) Baso % (Auto) Lymph # (Auto) [place] # (Auto) Eos # (Auto) Baso # (Auto) Abs Immat Gran (auto) Absolute Neuts (auto) Absolute Nucleated RBC Band Neutrophils % Nucleated RBC % Platelet Estimate Hypochromasia Anisocytosis Microcytosis Schistocytes Sodium Potassium Chloride Carbon Dioxide Anion Gap BUN Creatinine Estim Creat Clear Calc Estimated GFR Glucose POC Capillary Glucose 197 H 142 H Hemoglobin A1c Calcium Phosphorus Magnesium Total Bilirubin AST ALT Alkaline Phosphatase Total Protein Albumin Lipase Beta-Hydroxybutyrate/Acetoacetate Urine Color Urine Appearance Urine pH Ur Specific [place] Urine Protein Urine Glucose (UA) Urine Ketones Ur Blood (Man) Urine Nitrate Urine Bilirubin Urine Urobilinogen Add Ur Microanalysis Leukocyte Esterase Rfl Urine RBC Urine WBC Ur Squamous Epith Cells Urine Bacteria Urine Casts Influenza A (RT-PCR) Negative Influenza B (RT-PCR) Negative RSV (RT-PCR) Negative SARS-CoV-2 RNA (RT-PCR) Negative 01/11/25 01/11/25 01/10/25 03:35 02:21 22:35 WBC RBC Hgb Hct MCV MCH MCHC RDW Plt Count MPV Immature Gran % (Auto) Neut % (Auto) Lymph % (Auto) [place] % (Auto) Eos % (Auto) Baso % (Auto) Lymph # (Auto) [place] # (Auto) Eos # (Auto) Baso # (Auto) Abs Immat Gran (auto) Absolute Neuts (auto) Absolute Nucleated RBC Band Neutrophils % Nucleated RBC % Platelet Estimate Hypochromasia Anisocytosis Microcytosis Schistocytes Sodium 138 Potassium 3.9 Chloride 108 H Carbon Dioxide 18 L Anion Gap 12 BUN 38 H Creatinine 1.10 H Estim Creat Clear Calc 77 Estimated GFR 55 L Glucose 180 H POC Capillary Glucose 153 H Hemoglobin A1c Calcium 8.7 Phosphorus Magnesium Total Bilirubin 0.5 AST 23 ALT 19 Alkaline Phosphatase 87 Total Protein 7.0 Albumin 4.0 Lipase Beta-Hydroxybutyrate/Acetoacetate Urine Color Yellow Urine Appearance Clear Urine pH 5.0 Ur Specific [place] 1.027 Urine Protein 1+ H Urine Glucose (UA) 3+ H Urine Ketones Negative Ur Blood (Man) Negative Urine Nitrate Negative Urine Bilirubin Negative Urine Urobilinogen 0.2 Add Ur Microanalysis Reviewed Leukocyte Esterase Rfl Negative Urine RBC 0-2 Urine WBC 11-20 H Ur Squamous Epith Cells Moderate Urine Bacteria Rare Urine Casts 3-5 Influenza A (RT-PCR) Influenza B (RT-PCR) RSV (RT-PCR) SARS-CoV-2 RNA (RT-PCR) 01/10/25 01/10/25 17:33 14:58 WBC 9.2 RBC 4.51 Hgb 9.8 L Hct 34.1 L MCV 75.6 L MCH 21.7 L MCHC 28.7 L RDW 19.3 H Plt Count 345 MPV 8.9 Immature Gran % (Auto) 0.3 Neut % (Auto) 59.9 Lymph % (Auto) 30.8 [place] % (Auto) 6.5 Eos % (Auto) 2.0 Baso % (Auto) 0.5 Lymph # (Auto) 2.83 [place] # (Auto) 0.6 Eos # (Auto) 0.2 Baso # (Auto) 0.1 Abs Immat Gran (auto) 0.03 Absolute Neuts (auto) 5.5 Absolute Nucleated RBC 0.000 Band Neutrophils % Not Reportable Nucleated RBC % 0.0 Platelet Estimate Adequate Hypochromasia 1+ Anisocytosis 2+ Microcytosis 1+ Schistocytes None seen Sodium 139 Potassium 4.3 Chloride 104 Carbon Dioxide 19 L Anion Gap 16 H BUN 42 H D Creatinine 1.31 H Estim Creat Clear Calc 66 Estimated GFR 45 L Glucose 209 H POC Capillary Glucose 248 H Hemoglobin A1c 9.9 H Calcium 9.9 Phosphorus 4.6 H Magnesium 2.2 Total Bilirubin 0.6 AST 22 ALT 22 Alkaline Phosphatase 101 Total Protein 8.0 Albumin 4.6 Lipase 178 Beta-Hydroxybutyrate/Acetoacetate 0.51 H Urine Color Urine Appearance Urine pH Ur Specific [place] Urine Protein Urine Glucose (UA) Urine Ketones Ur Blood (Man) Urine Nitrate Urine Bilirubin Urine Urobilinogen Add Ur Microanalysis Leukocyte Esterase Rfl Urine RBC Urine WBC Ur Squamous Epith Cells Urine Bacteria Urine Casts Influenza A (RT-PCR) Influenza B (RT-PCR) RSV (RT-PCR) SARS-CoV-2 RNA (RT-PCR) DS: Summary Hospital Course Reason for hospitalization: Left flank pain Hospital Course: Kylee Guo is a 39 year old female with PCOS, hyperlipidemia, hypertension, diabetes type 2 presents the hospital with acute right flank pain. Patient states the last week she ran out of insulin for about 3 days however she has been taking her insulin regularly since Monday and has been adjusting her doses with her life science technician based on her sugars. In addition to flaking pain increasing for about a week patient also complains of shortness of breath with minimal activity and myalgias. CT abdomen pelvis showed diffuse hepatic steatosis and uterine fibroids. Lab work in the ED shows JOAQUÍN with creatinine of 1.31, glucose of 248, hemoglobin A1c of 9.9, phosphorus of 4.6, hydroxybutyrate 0.51, urine is negative for infection with 3+ glucose, chest x-ray is clear. Influenza a, B, RSV and COVID negative. Liver enzymes are normal,. No clear cause for left flank pain or mild shortness of breath. Patient is not taking narcotics and is not requiring oxygen. Recommend following up at [facility] for hapatic steatosis with history of diabetes and hypertension. Status at Discharge Functional status at discharge: independent ambulation Time Spent with Patient Time attestation: Total time spent providing and/or coordinating discharge services: DS: Admitting Diagnosis Discharge Date 01/11/2025 Admitting Diagnosis Left flank pain DS: Discharge Diagnosis Discharge Diagnosis (1) Acute kidney injury: Code(s): N17.9 - Acute kidney failure, unspecified Status: Acute Assessment and Plan: Resolved 2 L fluid bolus in ED IVF (2) Hepatic sclerosis: Code(s): K74.1 - Hepatic sclerosis Status: Acute Assessment and Plan: Recommend following up at [facility] for hapatic steatosis with history of diabetes and hypertension. (3) Diabetes mellitus: Qualifiers: Diabetes mellitus type: type 2 Diabetes mellitus shelter insulin use: without shelter use Diabetes mellitus complication status: without complication Qualified Code(s): E11.9 - Type 2 diabetes mellitus without complications Code(s): E11.9 - Type 2 diabetes mellitus without complications Status: Chronic Assessment and Plan: Continue home medications Discharge Plan Discharge Discharging Clinician: Coretta Colon Anticipated Discharge Date/Time: 01/11/25 13:36 Patient Disposition: Home, Self-Care Activity: may shower Diet: diabetic Discharge Instructions: Discharge instructions: Take medications as prescribed You are activity as tolerated Monitor blood pressures Avoid social areas, you wear a mask when in social settings Encouraged to continue with yearly vaccinations Return to the emergency department if he developed sudden shortness of breath, chest pain, nausea, vomiting, upset stomach or intractable diarrhea Return to the emergency department if you develop fever greater than 101.5 Follow-up with: Your primary care physician within 1-2 weeks for post hospitalization check up Discharge instructions: Take medications as prescribed New medications prescribed: You are activity as tolerated Monitor blood pressures Avoid social areas, you wear a mask when in social settings Encouraged to continue with yearly vaccinations Return to the emergency department if he developed sudden shortness of breath, chest pain, nausea, vomiting, upset stomach or intractable diarrhea Return to the emergency department if you develop fever greater than 101.5 Follow-up with: Your primary care physician within 1-2 weeks for post hospitalization check up Recommend following up at [facility] for hapatic steatosis with history of diabetes and hypertension. Thank you for choosing [facility] for your healthcare needs Patient Instructions: Antibiotic Form, Non-Alcoholic Fatty Liver Disease (GEN) Patient Language: Portuguese Stand Alone Forms: General Discharge Information Follow-up/Referrals: other [Other] Discharge Medications: Continued aspirin 81 mg tablet,delayed release (DR/EC) 81 mg PO DAILY bupropion HCl 150 mg tablet extended release 24 hr 150 mg PO DAILY metformin 500 mg Tablet Extended Release 24 Hr 500 mg PO DAILY Patient Comments: States she usually takes only once a day insulin degludec [Tresiba FlexTouch U-200] 200 unit/mL (3 mL) insulin pen 40 unit SUBCUT HS albuterol sulfate [ProAir HFA] 90 mcg/actuation HFA aerosol inhaler 1 inh INHALATION PRN PRN (Reason: Shortness Of Breath) dapagliflozin propanediol [Farxiga] 10 mg Tablet 10 mg PO DAILY rosuvastatin [Crestor] 10 mg Tablet 10 mg PO DAILY Patient Comments: Pt states she takes this at night valsartan-hydrochlorothiazide 320-12.5 mg tablet 12.5 tablet PO DAILY fluconazole 150 mg tablet 150 mg PO PRN PRN (Reason: yeast infections) omeprazole 20 mg capsule,delayed release(DR/EC) See Rx Instructions .ROUTE .COMPLEX Qty: 30 12RF Dose Instruction: Take 1 capsule by mouth once daily Rx Instructions: Take 1 capsule by mouth once daily Date of admission: 01/11/25 03:12 Primary Care Provider: Andrei Clark Admitting Provider: Kalpana Mercado Attending physician on admission: Kalpana Mercado Condition: Stable Quality VTE Prophylaxis VTE prophylaxis: mechanical ordered Hospitalist [facility] Advance Care Plan I have confirmed that the patient's Advanced Care Plan is present, code status is documented, or surrogate decision maker is listed in patient medical record.: Yes Medication Reconciliation I have utilized all available resources to obtain, update and review the patients current medications (includes all prescriptions, OTC, herbals, cannabis, and nutritional supplements).: Yes Heart Failure (Exclusion) Patient has history of Heart Transplant or Left Ventricular Assistive Device?: No IF YES, STOP HERE Heart Failure (Qualifier) Patient has current or prior documentation of LVEF less than or equal to 40%, or mod/servere depressed LVSF?: No IF NO, STOP HERE
== END 2025-01-11 14:20 | disposition home or self-care (01) ==
LOC: ANHED 01-11 03:17 → ANH2MED 01-11 03:30
PROVIDERS: Nurse Practitioner Gerontology; Physician Assistant; Admitting Provider Internal Medicine; Emergency Provider Physician Assistant; PCP Internal Medicine; Visit Provider Internal Medicine
DX: N17.9 Acute kidney failure, unspecified (principal); K74.1 Hepatic sclerosis; E86.0 Dehydration; E11.22 Type 2 diabetes mellitus with diabetic chronic kidney disease; I12.9 Hypertensive chronic kidney disease with stage 1 through stage 4 chronic kidney disease, or unspecified chronic kidney disease; N18.9 Chronic kidney disease, unspecified; E78.5 Hyperlipidemia, unspecified; E28.2 Polycystic ovarian syndrome; Z20.822 Contact with and (suspected) exposure to COVID-19; Z87.891 Personal history of nicotine dependence; Z79.51 Long term (current) use of inhaled steroids; Z79.82 Long term (current) use of aspirin; Z79.84 Long term (current) use of oral hypoglycemic drugs; Z90.721 Acquired absence of ovaries, unilateral
CPT/HCPCS: 36415; 71045; 74176; 80053; 81001; 82010; 82948; 83036; 83690; 83735; 84100; 85025; 87086; 87637; 96360; 96361; 99285; A9270; G0378; J7030

== ENCOUNTER 2025-03-10 15:03 | Emergency (ER) | payer BC, SELFPAY ==
--- NOTE | ~2025-03-10 | CT_ITS ---
EXAMINATION: CT brain wo con DATE: 03/10/2025 15:46 INDICATION: sudden onset dizziness . TECHNIQUE: Computed tomography (CT) of the head was performed without intravenous contrast. The mA wa s adjusted according to patient size. Iterative reconstruction technique was employed. The dose-lengt h product was 605.33 mGy-cm. COMPARISON: MR brain 07/09/2022; CT brain 11/12/2020. FINDINGS: No acute intracranial hemorrhage or extra-axial fluid collection. No hydrocephalus, mass, or herniation. No acute ischemic infarct. Unremarkable dural venous sinus attenuation. No acute osseous abnormality. The aerated spaces are clear. Hyperostosis frontalis. IMPRESSION: No acute intracranial process. Reviewed, dictated and finalized at location K.
[2025-03-10 15:19] VITALS: BP 110/73; PULSE 109; RESP 18; TEMP 36.4; O2SAT 99
--- NOTE | 2025-03-10 15:31 | ECG_ITS ---
Test Date: 2025-03-10 15:57:09 Measurements Intervals [place] Rate: 100 P: 28 DE: 170 QRS: 15 QRSD: 89 T: 63 QT: 345 QTc: 447 Interpretive Statements SINUS TACHYCARDIA POSSIBLE LEFT ATRIAL ENLARGEMENT POSSIBLE RIGHT VENTRICULAR CONDUCTION DELAY LEFT VENTRICULAR HYPERTROPHY WITH ST-T CHANGE MINIMAL Q WAVES- DIFFUSE LEADS BORDERLINE T WAVE ABNORMALITY- ANTEROLATERAL LEADS BASELINE ARTIFACT- I, III, AVR, AVL,A VF BORDERLINE ECG Compared to ECG 12/24/2024 14:08:27 HEART RATE HAS DECREASED Electronically Signed On 03-10-2025 16:33:01 CDT by Ar Valle D.O.
--- NOTE | 2025-03-10 15:32 | ED_ITS ---
HPI - Dizziness General Chief Complaint: Dizziness <Camryn Kemp APRN - Last Filed: 03/10/25 15:42> Stated Complaint: Lightheaded, dizzy, weak-BP Low <Camryn Kemp APRN - Last Filed: 03/10/25 15:42> Time Seen by Provider: 03/10/25 15:25 <Camryn Kemp APRN - Last Filed: 03/10/25 15:42> Focused HPI: Patient is 39-year-old female who presents to the ER with complaints of dizziness, loose stools, abdominal pain, cold sweats, and nausea. She reports she has a history of high blood pressure and last week her doctor increased her dose of losartan and added amlodipine. Patient reports she started feeling dizziness this morning, especially when she moved her head. She denies any recent fevers, vomiting, visual changes. Patient denies any other medical history relevant to this ER visit. GENERAL: Well-appearing, well-nourished, and in no acute distress. HEAD: Normocephalic, atraumatic. CHEST: Clear to auscultation. ?No respiratory distress. HEART: Regular rate and rhythm.? NEURO: ?Alert and oriented x3. Patient screened in triage and initial orders placed.? ?Additional care and disposition to be based upon?diagnostic testing and treatment. <Camryn Kemp APRN - Last Filed: 03/10/25 15:42> Source: patient <Lauro Choi PA-C - Last Filed: 03/11/25 02:40> Mode of arrival: ambulatory <Lauro Choi PA-C - Last Filed: 03/11/25 02:40> Limitations: no limitations <SHANNAN Oviedo Last Filed: 03/11/25 02:40> History of Present Illness HPI Narrative: A agree with MSE note above. Patient and that the dizziness feels like the room is spinning. She states that it is very episodic in nature. It seems to be approved by certain positions. She does endorse to me as well that her blood pressure medications did go up and they added amlodipine. <Lauro Choi PA-C - Last Filed: 03/11/25 02:40> Related Data Home Medications: Home Medications ?Medication ?Instructions ?Recorded ?Confirmed ?Last Taken ?Type metformin 500 mg tablet,extended 500 mg PO DAILY 04/30/20 01/10/25 11/17/20 09:00 History release 24 hr albuterol sulfate 90 mcg/actuation 1 inh inhalation PRN PRN Shortness 07/06/20 01/10/25 11/16/20 21:00 History aerosol inhaler (ProAir HFA) Of Breath insulin degludec 200 unit/mL (3 40 unit subcut HS 07/06/20 01/10/25 01/09/25 History mL) subcutaneous pen (Tresiba FlexTouch U-200 insulin) rosuvastatin 10 mg tablet (Crestor) 10 mg PO DAILY 08/09/20 01/10/25 11/17/20 21:00 History dapagliflozin propanediol 10 mg 10 mg PO DAILY 04/20/22 01/10/25 Unknown History tablet (Farxiga) aspirin 81 mg tablet,delayed 81 mg PO DAILY 11/10/24 01/10/25 Unknown History release bupropion HCl 150 mg 24 hr tablet, 150 mg PO DAILY 11/10/24 01/10/25 01/09/25 History extended release fluconazole 150 mg tablet 150 mg PO PRN PRN yeast infections 01/10/25 01/10/25 Unknown History amlodipine 5 mg tablet 5 mg PO BID 03/10/25 03/10/25 Unknown History valsartan 320 1 tablet PO DAILY 03/10/25 03/10/25 03/10/25 History mg-hydrochlorothiazide 25 mg tablet <Camryn Kemp, DIRECTOR OF THERAPY SERVICES - Last Filed: 03/10/25 15:42> Allergies/Adverse Reactions: Allergies Allergy/AdvReac Type Severity Reaction Status Date / Time metoclopramide AdvReac Severe PANIC Verified 03/10/25 15:04 ATTACKS ondansetron AdvReac Severe PANIC Verified 03/10/25 15:04 ATTACKS prochlorperazine (From AdvReac Severe PANIC Verified 03/10/25 15:04 Compazine) ATTACKS promethazine AdvReac Severe PANIC Verified 03/10/25 15:04 ATTACKS adhesive tape AdvReac Intermediate Rash Verified 03/10/25 15:04 <Camryn Kemp, DIRECTOR OF THERAPY SERVICES - Last Filed: 03/10/25 15:42> Review of Systems 2 Review of Systems: All systems as dictated in HPI <Lauro Choi PA-C - Last Filed: 03/11/25 02:40> [facility] Past Medical History Medical History: Medical History Yeast infection Colon, diverticulosis Hematochezia Constipation Complex cyst of left ovary surgical removal SOB (shortness of breath) Bilateral hand pain Chronic kidney disease CRP elevated Myalgia Myalgia BOBBY positive (~2020) Degenerative joint disease of cervical and lumbar spine Pseudotumor cerebri History of Pettit's palsy Kidney cysts Followed by a [facility] in [place]. Anxiety Migraine headache Polycystic ovarian syndrome Gastroesophageal reflux disease Insulin dependent type 2 diabetes mellitus Hemoglobin A1c on 11/12/2020 was 7.9%. Dyslipidemia Empty sella syndrome Fibromyalgia Hypertension <Camryn Kemp APRN - Last Filed: 03/10/25 15:42> Surgical History Surgical History: Surgical History History of esophagogastroduodenoscopy (EGD) History of unilateral oophorectomy History of bilateral salpingectomy History of tubal ligation Delivery by section xs 2 History of laparoscopic cholecystectomy (~2005) <Camryn Kemp APRN - Last Filed: 03/10/25 15:42> Family History Family History: Family History Father Diabetes mellitus Hypertension Myocardial infarct Heart disease Mother Diabetes mellitus Heart disease Sibling Narcolepsy and cataplexy Legal Guardian No problems noted. Grandparent Breast cancer <Camryn Kemp APRN - Last Filed: 03/10/25 15:42> Social History Social History: Social History Social History: The patient is and lives in [place] with her teenage son and daughter. She works for the [employer]. She smoked about a half a pack of cigarettes a day and quit in June 2020. No alcohol or illicit substance abuse. She designates her daughter Kiesha as her surrogate decision maker and she wishes to be a full code. Smoking packs per day: 1 Smoking cigarettes per day: 20.0 Years smoked: 20 Smoking pack-years: 20.00 Smoking status: Former smoker Tobacco type: cigarettes Second hand tobacco smoke exposure: Yes Smoking end date: 06/29/20 Alcohol intake: never Substance use: never Substance use type: does not use Other substance usage details: Previously used marijuana; denies currently Last use: DAILY Do You Feel Safe in your Home?: Yes Lack of Transportation: No Lack of Food: Never True Current Housing: I Have Housing Concerned About Future Housing: No Difficulty Paying Gas/Electric Bills: No Difficulty Paying for Meds: No Currently Unemployed: No Education: Associate Degree Difficulty w/ Childcare or Family Care: No Living arrangements: with family Occupation/Education: occupation Additional occupation/education comments: [employer] Gender identity (if verbalized by the patient): Female Sexual Orientation (if Verbalized by the Patient): Bisexual Spiritual care concerns: No <Camryn Kemp APRN - Last Filed: 03/10/25 15:42> Exam 2 Narrative: GENERAL: Well-appearing, well-nourished, and in no acute distress. HEAD: Normocephalic, atraumatic. EYES: PERRLA and EOMI. ENT: Nares clear, no rhinorrhea or epistaxis. Mucous membranes moist. Oropharynx without tonsillar hypertrophy exudate or other lesions. NECK: Supple. No adenopathy or masses. CHEST: No respiratory distress. Clear to auscultation. No wheezes rales or rhonchi HEART: Regular rate and rhythm. No murmur heard. Normal peripheral pulses. ABDOMEN: Soft, nontender, nondistended, normal active bowel sounds. MSK: Normal range of motion. No edema. SKIN: Warm, dry, no rash. NEURO: Alert and oriented x4. No focal deficits. 5/5 strength and sensation to the upper and lower extremities. No pronator drift bilaterally. Head impulse report test produces a leftward corrective saccade.. Head impulse test to the left does recreate her dizziness. Normal test of skew. No nystagmus at rest. PSYCH: Normal mood and affect. <Lauro Choi PA-C - Last Filed: 03/11/25 02:40> Course Vital Signs Vital signs: Vital Signs Temperature 97.5 F L 03/10/25 15:19 Pulse Rate 109 H 03/10/25 15:19 Respiratory Rate 18 03/10/25 15:19 Blood Pressure 110/73 03/10/25 15:19 Pulse Oximetry 99 03/10/25 15:19 Oxygen Delivery Room Air 03/10/25 15:19 Temperature 97.5 F L 03/10/25 15:19 Pulse Rate 109 H 03/10/25 15:19 Respiratory Rate 18 03/10/25 15:19 Blood Pressure 110/73 03/10/25 15:19 Pulse Oximetry 99 03/10/25 15:19 Oxygen Delivery Room Air 03/10/25 15:19 <Camryn Kemp, DIRECTOR OF THERAPY SERVICES - Last Filed: 03/10/25 15:42> Vital Signs Temperature 97.5 F L 03/10/25 15:19 Pulse Rate 109 H 03/10/25 15:19 Respiratory Rate 18 03/10/25 15:19 Blood Pressure 110/73 03/10/25 15:19 Pulse Oximetry 99 03/10/25 15:19 Oxygen Delivery Room Air 03/10/25 15:19 Temperature 97.5 F L 03/10/25 15:19 Pulse Rate 109 H 03/10/25 15:19 Respiratory Rate 18 03/10/25 15:19 Blood Pressure 110/73 03/10/25 15:19 Pulse Oximetry 99 03/10/25 15:19 Oxygen Delivery Room Air 03/10/25 15:19 <Lauro Choi PA-C - Last Filed: 03/11/25 02:40> MDM - Dizziness MDM Narrative Medical decision making narrative: This is a 39-year-old female who presents to the ED for chief complaint of episodic vertigo and lightheadedness. Vitals are showing elevated heart rate on arrival and mildly low blood pressures in the 110s over 70s. Lab work does show anemia with hemoglobin of 9.1, however does appear to be stable from previous measures. Appears to be a microcytic anemia. CMP remarkable for elevated BUN and creatinine of 40 and 1.13 respectively. Troponin negative. TSH normal. Urinalysis remarkable for 3+ glucose, 1+ protein but no infection. CT brain shows no acute findings. Presentation most likely consistent with BPPV with the episodic nature of her peripheral vertigo. It is able to be reliably recreated with leftward rotation of the head. She was given Benadryl, scopolamine patch and Valium with eventual success with the Valium. She was also given fluids. I did advise that the patient hold her amlodipine containing medication as it could be contributing to her lightheadedness. Patient will be discharged in stable condition. Supportive measures discussed and return precautions given. Patient is understanding and agreeable with plan for discharge with PCP follow-up. <Lauro Choi PA-C - Last Filed: 03/11/25 02:40> Lab Data Result diagrams: 03/10/25 16:03 03/10/25 20:46 <Camryn Kemp APRN - Last Filed: 03/10/25 15:42> Labs: Lab Results 03/10/25 03/10/25 03/10/25 Range/Units 16:03 20:05 20:46 WBC 10.8 H (4.5-10.0) K/mm3 RBC 4.20 (4.2-5.4) M/mm3 Hgb 9.1 L (12.0-15.0) g/dL Hct 31.9 L (37.0-47.0) % MCV 76.0 L (80-100) fl MCH 21.7 L (26-34) pg MCHC 28.5 L (32-36) g/dl RDW 18.5 H (11.5-14.5) % Plt Count 294 (150-375) k/mm3 MPV 8.8 (7.4-10.4) fl Immature Gran % (Auto) 0.4 (0-0.5) % Neut % (Auto) 76.1 H (45.5-73.1) % Lymph % (Auto) 16.4 L (18.3-44.2) % Gentry % (Auto) 5.6 (2.6-8.5) % Eos % (Auto) 1.0 (0-4.4) % Baso % (Auto) 0.5 (0.2-1.2) % Lymph # (Auto) 1.78 (0.9-3.2) K/mm3 Gentry # (Auto) 0.6 (0.1-0.6) K/mm3 Eos # (Auto) 0.1 (0-0.3) K/mm3 Baso # (Auto) 0.1 (0.0-0.1) K/mm3 Abs Immat Gran (auto) 0.04 H (0.00-0.031) K/mm3 Absolute Neuts (auto) 8.2 H (1.3-6.7) K/mm3 Absolute Nucleated RBC 0.000 (0.0-0.012) K/mm3 Band Neutrophils % Not Reportable Nucleated RBC % 0.0 (0.0-0.2) % Platelet Estimate Adequate (Adequate) Hypochromasia 1+ Anisocytosis 1+ Schistocytes None seen Sodium 135 L 136 L (137-145) mmol/L Potassium 4.0 3.5 (3.4-5.0) mmol/L Chloride 99 104 (98-107) mmol/L Carbon Dioxide 21 L 22 (22-30) mmol/L Anion Gap 15 H 10 (4-12) mmol/L BUN 45 H 40 H (7-17) mg/dL Creatinine 1.37 H 1.13 H (0.7-1.0) mg/dL Estim Creat Clear Calc 56 67 ml/min Estimated GFR 42 L 53 L (59 - ) Glucose 263 H 150 H (65-110) mg/dL Calcium 9.3 8.2 L (8.4-10.2) mg/dL Total Bilirubin 0.4 (0.2-1.3) mg/dL AST 24 (14-36) U/L ALT 21 (6-35) U/L Alkaline Phosphatase 84 (38-126) U/L Troponin I < 0.012 (0.000-0.034) ng/mL Total Protein 8.0 (6.3-8.2) g/dL Albumin 4.4 (3.5-5.1) g/dL TSH 2.930 (0.465-4.680) uIU/mL Urine Color Yellow (Yellow) Urine Appearance Clear (Clear) Urine pH 5.0 (5.0-9.0) Ur Specific Brownell 1.019 (1.001-1.035) Urine Protein 1+ H (Negative) mg/dL Urine Glucose (UA) 3+ H (Negative) mg/dL Urine Ketones Negative (Negative) mg/dL Ur Blood (Man) Negative (Negative) Urine Nitrate Negative (Negative) Urine Bilirubin Negative (Negative) Urine Urobilinogen 0.2 (<2.0) mg/dL Leukocyte Esterase Rfl Negative (Negative) JOSE/UL Urine RBC 0-2 (0-2) /hpf Urine WBC 0-5 (0-3) /hpf Ur Squamous Epith Cells None seen (Few) /hpf Urine Bacteria None seen /hpf Urine Casts 3-5 Urine Opiates Screen Negative (Negative) Urine Methadone Screen Negative (Negative) Ur Barbiturates Screen Negative (Negative) Ur Phencyclidine Scrn Negative (Negative) Ur Amphetamine Screen Negative (Negative) U Benzodiazepines Scrn Negative (Negative) Urine Cocaine Screen Negative (Negative) U Cannabinoids Screen Negative (Negative) <Camrynalejandro Kemp, DIRECTOR OF THERAPY SERVICES - Last Filed: 03/10/25 15:42> Lab Results 03/10/25 03/10/25 03/10/25 Range/Units 16:03 20:05 20:46 WBC 10.8 H (4.5-10.0) K/mm3 RBC 4.20 (4.2-5.4) M/mm3 Hgb 9.1 L (12.0-15.0) g/dL Hct 31.9 L (37.0-47.0) % MCV 76.0 L (80-100) fl MCH 21.7 L (26-34) pg MCHC 28.5 L (32-36) g/dl RDW 18.5 H (11.5-14.5) % Plt Count 294 (150-375) k/mm3 MPV 8.8 (7.4-10.4) fl Immature Gran % (Auto) 0.4 (0-0.5) % Neut % (Auto) 76.1 H (45.5-73.1) % Lymph % (Auto) 16.4 L (18.3-44.2) % Gentry % (Auto) 5.6 (2.6-8.5) % Eos % (Auto) 1.0 (0-4.4) % Baso % (Auto) 0.5 (0.2-1.2) % Lymph # (Auto) 1.78 (0.9-3.2) K/mm3 Gentry # (Auto) 0.6 (0.1-0.6) K/mm3 Eos # (Auto) 0.1 (0-0.3) K/mm3 Baso # (Auto) 0.1 (0.0-0.1) K/mm3 Abs Immat Gran (auto) 0.04 H (0.00-0.031) K/mm3 Absolute Neuts (auto) 8.2 H (1.3-6.7) K/mm3 Absolute Nucleated RBC 0.000 (0.0-0.012) K/mm3 Band Neutrophils % Not Reportable Nucleated RBC % 0.0 (0.0-0.2) % Platelet Estimate Adequate (Adequate) Hypochromasia 1+ Anisocytosis 1+ Schistocytes None seen Sodium 135 L 136 L (137-145) mmol/L Potassium 4.0 3.5 (3.4-5.0) mmol/L Chloride 99 104 (98-107) mmol/L Carbon Dioxide 21 L 22 (22-30) mmol/L Anion Gap 15 H 10 (4-12) mmol/L BUN 45 H 40 H (7-17) mg/dL Creatinine 1.37 H 1.13 H (0.7-1.0) mg/dL Estim Creat Clear Calc 56 67 ml/min Estimated GFR 42 L 53 L (59 - ) Glucose 263 H 150 H (65-110) mg/dL Calcium 9.3 8.2 L (8.4-10.2) mg/dL Total Bilirubin 0.4 (0.2-1.3) mg/dL AST 24 (14-36) U/L ALT 21 (6-35) U/L Alkaline Phosphatase 84 (38-126) U/L Troponin I < 0.012 (0.000-0.034) ng/mL Total Protein 8.0 (6.3-8.2) g/dL Albumin 4.4 (3.5-5.1) g/dL TSH 2.930 (0.465-4.680) uIU/mL Urine Color Yellow (Yellow) Urine Appearance Clear (Clear) Urine pH 5.0 (5.0-9.0) Ur Specific Brownell 1.019 (1.001-1.035) Urine Protein 1+ H (Negative) mg/dL Urine Glucose (UA) 3+ H (Negative) mg/dL Urine Ketones Negative (Negative) mg/dL Ur Blood (Man) Negative (Negative) Urine Nitrate Negative (Negative) Urine Bilirubin Negative (Negative) Urine Urobilinogen 0.2 (<2.0) mg/dL Leukocyte Esterase Rfl Negative (Negative) JOSE/UL Urine RBC 0-2 (0-2) /hpf Urine WBC 0-5 (0-3) /hpf Ur Squamous Epith Cells None seen (Few) /hpf Urine Bacteria None seen /hpf Urine Casts 3-5 Urine Opiates Screen Negative (Negative) Urine Methadone Screen Negative (Negative) Ur Barbiturates Screen Negative (Negative) Ur Phencyclidine Scrn Negative (Negative) Ur Amphetamine Screen Negative (Negative) U Benzodiazepines Scrn Negative (Negative) Urine Cocaine Screen Negative (Negative) U Cannabinoids Screen Negative (Negative) <Lauro Choi PA-C - Last Filed: 03/11/25 02:40> Discharge Plan Discharge Clinical Impression: Episodic peripheral vertigo <Camryn Kemp APRN - Last Filed: 03/10/25 15:42> Patient Disposition: Home <Camryn Kemp APRN - Last Filed: 03/10/25 15:42> Condition: Stable <Camryn Kemp APRN - Last Filed: 03/10/25 15:42> Instructions: Antibiotic Form, Benign Paroxysmal Positional Vertigo (ED) <Camryn Kemp APRN - Last Filed: 03/10/25 15:42> Additional Instructions: Exam today is consistent with vertigo. Please take meclizine as needed for dizziness symptoms. Follow-up very closely with PCP as you may need to see physical therapy for this issue. Please stop taking the amlodipine containing medication as it can make the dizziness worse, and follow-up with PCP about this as well. If you have any new or worsening symptoms please return to the ER for further evaluation. <Camryn Kemp APRN - Last Filed: 03/10/25 15:42> Patient Language: Persian <Camryn Kemp APRN - Last Filed: 03/10/25 15:42> Prescriptions: New meclizine 25 mg tablet 25 mg PO BID PRN (Reason: dizziness) Qty: 30 0RF No Action aspirin 81 mg tablet,delayed release (DR/EC) 81 mg PO DAILY bupropion HCl 150 mg tablet extended release 24 hr 150 mg PO DAILY metformin 500 mg Tablet Extended Release 24 Hr 500 mg PO DAILY Patient Comments: States she usually takes only once a day insulin degludec [Tresiba FlexTouch U-200] 200 unit/mL (3 mL) insulin pen 40 unit SUBCUT HS albuterol sulfate [ProAir HFA] 90 mcg/actuation HFA aerosol inhaler 1 inh INHALATION PRN PRN (Reason: Shortness Of Breath) dapagliflozin propanediol [Farxiga] 10 mg Tablet 10 mg PO DAILY rosuvastatin [Crestor] 10 mg Tablet 10 mg PO DAILY Patient Comments: Pt states she takes this at night fluconazole 150 mg tablet 150 mg PO PRN PRN (Reason: yeast infections) amlodipine 5 mg tablet 5 mg PO BID valsartan-hydrochlorothiazide 320-25 mg tablet 1 tablet PO DAILY omeprazole 20 mg capsule,delayed release(DR/EC) See Rx Instructions .ROUTE .COMPLEX Qty: 30 12RF Dose Instruction: Take 1 capsule by mouth once daily Rx Instructions: Take 1 capsule by mouth once daily <Camryn Kemp APRN - Last Filed: 03/10/25 15:42> Follow-up/Referrals: Andrei Clark MD [Primary Care Provider] - <Camryn Kemp APRN - Last Filed: 03/10/25 15:42> Time of Disposition: 21:27 <Camryn Kemp APRN - Last Filed: 03/10/25 15:42> 21:27 <Lauro Choi PA-C - Last Filed: 03/11/25 02:40>
[2025-03-10 16:09] LABS: Basophils Absolute Auto 0.1 K/mm3 (0.0-0.1); Basophils Percent Auto 0.5 % (0.2-1.2); Eosinophils Absolute Auto 0.1 K/mm3 (0-0.3); Hematocrit 31.9 % (37.0-47.0); Hemoglobin 9.1 g/dL (12.0-15.0); Immature Granulocyte Absolute 0.04 K/mm3 (0.00-0.031); Immature Granulocyte Percent A 0.4 % (0-0.5); Lymphocytes Absolute Auto 1.78 K/mm3 (0.9-3.2); Lymphocytes Percent Auto 16.4 % (18.3-44.2); Mean Corpuscular HGB Conc 28.5 g/dl (32-36); Mean Corpuscular Hemoglobin 21.7 pg (26-34); Mean Platelet Volume 8.8 fl (7.4-10.4); Monocytes Absolute Auto 0.6 K/mm3 (0.1-0.6); Monocytes Percent Auto 5.6 % (2.6-8.5); Neutrophils Absolute Auto 8.2 K/mm3 (1.3-6.7); Neutrophils Percent Auto 76.1 % (45.5-73.1); Platelet Count Result 294 k/mm3 (150-375); Red Cell Distribution Width 18.5 % (11.5-14.5); White Blood Count 10.8 K/mm3 (4.5-10.0)
[2025-03-10 16:18] LABS: Alanine Aminotransferase 21 U/L (6-35); Albumin Level 4.4 g/dL (3.5-5.1); Alkaline Phosphatase 84 U/L (38-126); Anion Gap 15 mmol/L (4-12); Aspartate Amino Transferase 24 U/L (14-36); Bilirubin,Total 0.4 mg/dL (0.2-1.3); Blood Urea Nitrogen 45 mg/dL (7-17); Calcium 9.3 mg/dL (8.4-10.2); Carbon Dioxide 21 mmol/L (22-30); Chloride 99 mmol/L (98-107); Estimated CRCL calculation 56 ml/min; Estimated Glomerular Filt Rate 42; Glucose 263 mg/dL (65-110); Sodium 135 mmol/L (137-145)
[2025-03-10 16:30] LABS: Troponin I < 0.012 ng/mL (0.000-0.034)
[2025-03-10 16:40] LABS: Anisocytosis 1+; Hypochromasia 1+; Platelet Estimate Adequate (Adequate); Schistocytes None Seen
--- OUTSIDE RECORDS SUMMARY | 2025-03-10 17:03 | XMS_ITS | CONTINUITY OF CARE DOCUMENT ---
Author Name padmini, padmini Address Unknown Organization [facility] Address [address] [place] [address] Phone [phone] Care Team Providers Care Die Cutter Diamond Name Role Phone Chitra RUEDA, Lucio Unavailable [phone] CHITRA RUEDA, MIGUEL Unavailable ABELINO RUEDA, FABIÁN Unavailable [phone] PROBLEMS Condition Status Date Provider Notes Migraine [...] Payer name Policy type / Coverage type [place] red libertarian ID [facility] [id number]
--- OUTSIDE RECORDS SUMMARY | 2025-03-10 17:04 | XMS_ITS ---
Author Organization [facility] Address [address] [place] [address] Care Team Providers Care Planing Machine Operator Name Role Phone Andrei Clark Primary Care Provider REASON FOR VISIT form/letter Social History Sex Assigned At : Social History Observation Description Sex Assigned At Female Encounters Encounter Location Date Provider Diagnosis [address] [place] [address] 01/17/2025 Andrei Clark Plan Of Treatment No Information Progress Notes * Kylee FIGUEROA RDOB:1985 (39 yo F)Acc No.[id number]:01/17/2025 Patient: Kylee HEATH :1985 A ge:39 Y S ex:Female Address:[address] [place], [address] * true * Date: Generated for Printi ng/Faxing/eTransmitting on: 0 03/10/2025 05:04 PM CDT
--- OUTSIDE RECORDS SUMMARY | 2025-03-10 17:05 | XMS_ITS | Referral Summary ---
Author Organization [facility] [address] Address [address] [place] [address] Care Team Providers Care Work Adjustment Instructor Name Role Phone Andrei Clark MD Primary Care Provider [phone] Kandace Freedman OT Unavailable [phone] Christina Brunson MD Unavailable [phone] Allergies Active Allergy Reactions Criticality Noted Date [...] 10/11/2022 Type 2 diabetes mellitus with hyperglycemia 09/20 Adnexal cyst 08/31/2022 Abnormal C-reactive protein 08/29/2022 Chronic depression 08/29/2022 Elevated antinuclear antibody (BOBBY) level 2021 Fibromyalgia 08/29/2022 Iron deficiency anemia 08/29/2022 Psychologic conversion disorder 08/29/2022 Severe recurrent major depressive disorder with psychosis 08/29/2022 Stage 3a chronic kidney disease 08/29/2022 Uncontrolled type 2 diabetes mellitus 03/31/2022 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 Pérez. Recs: 1. Call [facility] to make appt (she understands she needs to be the one to call) for CBT for FND, anxiety, depression. 2. Consider Valium after I discuss with Dr. Pérez. 3. Continue with psychiatry. 4. Start positive self talk and meditative exercises for spells . 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 OPERATOR): She has abnormal involuntary movements including [...] video EEG (scheduled for next month at [facility]) to clarify whether any aspect of [...] without long-term current use of insulin 04/04/2017 Polycystic ovaries 04/04/2017 Hypertensive chronic kidney [...] on file Legal Sex Female 4:48 PM FINISHER OPERATOR Gender Identity Not on file Sexual [...] Diagnosis Comments EGFR Routine 10/17/2022 5:08 PM FINISHER OPERATOR Cyst of left ovary HEMOGLOBIN A1C STAT 08/23/2019 5:28 PM CDT from Last 3 Months or Most Recently Relevant to Health Maintenance Results * (ABNORMAL) eGFR (10/17/2022 5:08 PM FINISHER OPERATOR) eGFR 82(L) 90 - 130 mL/min/1. [...] of Race in Diagnosing Kidney Disease, JASN 2020). The CKD-EPI equation should not be used for patients with unstable renal function and has not been validated in children and those over 70. Current interpretive data was last reviewed 2021. Blood 10/17/2022 5:08 PM FINISHER OPERATOR 10/17/2022 5:58 PM FINISHER OPERATOR us Premme Elia Jackson MD LAB BLOOD ORDERABLES Fin al Result LUCIEN SAM [facility] Department [place] [address] * (ABNORMAL) Hemoglobin A1c (08/23/2019 5:28 PM CDT) Hgb A1C 11.1(H) 4.0 - 5.6 % LUCIEN SAM Estimated Average Glucose 272 mg/dL LUCIEN SAM Comment: The ADA recommends reporting an estimated Average Glucose (eAG) with all Hemoglobin A1c results using the equation derived from a study of 507 normal and diabetic adults. Minority populations were underrepresented and children were not included. (Diabetes Care 31:2012-7535, 2008). The eAG is not equivalent to a fasting glucose. Blood specimen (specimen) 08/23/2019 5:28 PM CDT 08/23/2019 6:04 PM CDT us Notinfile Unknown LAB BLOOD ORDERABLES Final Res ult LUCIEN [facility] [address] [place] [address] from Last 3 Months or Most Recently Relevant to Health Maintenance Insurance [facility] Member Subscriber Plan / Payer ( fective 2019-Present) Name:Kylee Guo Relation to Subscriber:Self Name:Kylee Guo Payer ID:[id number] (NAIC) Group ID:[id number] Type:[employer] Address: [address] [facility] [employer] [facility] [employer] Advance Directives For more information, please contact: [phone] * Full Code (Latest Code Status on File) Date Activated Date Inactivated Comments 01/25/2021 9:49 AM 01/31/2021 8:38 PM * Full Code Date Activated Date Inactivated Comments 02/11/2019 4:38 PM 02/13/2019 11:05 AM Care Teams Work Adjustment Instructor Relationship Specialty Start Date End Date Andrei Clark MD PCP - General Internal Medicine 12/11/20 Kandace Freedman OT Occupational Therapist Occupational Therapy 03/15/21 Christina Brunson MD [address] [place] [address] Obstetrics and Gynecology 08/02/22
--- OUTSIDE RECORDS SUMMARY | 2025-03-10 17:05 | XMS_ITS | Patient Health Record ---
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 Educated with: Learning about Cervical Cancer Screenings.pdf (Learning about Cervical Cancer Screenings.pdf) 06/18/2024 Type 2 diabetes mellitus with hyperglycemia [...] 2 diabetes mellitus without complication, unspecified whether chcf insulin use (ICD-10 - E11.9) DISCUSSED DIET. INCREASED METFORMIN. ADDED RYBELSUS. IF BS DROPS INTO 110 RANGE FASTING, DECREASE TRESIBA BY 5 U WEEKLY, 10 U IF UNDER 100. 01/01/2025 Hypertension, unspecified type (ICD-10 - I10) 08/19/2024 Type 2 diabetes mellitus with hyperglycemia (ICD-10 - E11.65) 03/03/2025 Folliculitis (ICD-10 - L73.9) 01/15/2025 Nutritional counseling (ICD-10 - Z71.3) 03/03/2025 Chronic depression (ICD-10 - F32.9) 08/19/2024 Type 2 diabetes mellitus without complication, without long-term current use of insulin (ICD-10 - E11.9) 01/01/2025 Stage 3a chronic kidney disease (ICD-10 - N18.31) 01/01/2025 Nutritional counseling (ICD-10 - Z71.3) 08/19/2024 Nutritional counseling (ICD-10 - Z71.3) 03/03/2025 Over weight (ICD-10 - E66.3) 01/01/2025 Hyperlipidemia, unspecified hyperlipidemia type (ICD-10 - E78.5) 01/01/2025 Coronary artery disease involving [place] heart without angina pectoris, unspecified vessel or lesion type (ICD-10 - I25.10) 08/19/2024 Body mass index (BMI) of 30.0-30.9 in adult (ICD-10 - Z68.30) 08/19/2024 Dietary counseling (ICD-10 - Z71.3) 03/03/2025 Other Learning About the Safe Use of Antibiotics material was discussed. Pt was educated on use of antibiotic medication including dosing, side effects, adverse effects and anticipated response. Pt was also educated on importance of completing full course of treatment as ordered. Patient voiced understanding of all. 03/05/2025 Other Clinician received referral to link client to counseling via [place]. Utilized person centered focus and motivational interviewing to assist client in identifying goals for treatment. Goals include reducing negative mental health symptoms. Client was provided information for central access phone number, process, intake education. Client denies further needs at this time. 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
--- OUTSIDE RECORDS SUMMARY | 2025-03-10 17:05 | XMS_ITS | Encounter Summary ---
Author Organization [facility] Address [address] [place] [address] Phone Care Team Providers Care Certified Energy Manager Name Role Phone Unknown, Notinfile Primary Care Provider Unavail able Dorota Martinez MD Primary Care Provider [phone] Andrei Clark MD Primary Care Provider [phone] Kandace Freedman OT Unavailable [phone] Christina Brunson MD Unavailable [phone] Encounter Details Date Type Department Care Team (Late st Contact Info) Description 02/07/2019 Ophth Exam [facility] Ophthalmology [address] [place] [address] 1[address] [place] [id number] Diana Leon MD PhD [address] [place] [address] Social History Tobacco Use Types Packs/Day Years [...] on file Legal 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 Gender Identity Not on file Sexual [...] no RT/RD/necrosis no RT/RD/necro sis Care Teams Certified Energy Manager Relationship Specialty Start Date End Date Unknown, Notinfile PCP - General 02/04/19 02/10/19 Dorota Martinez MD [address] [place] [address] PCP - General 02/11/19 12/10/20 Andrei Clark MD [address] [address] PCP - General Internal Medicine 12/11/20 [place] [address] [place] [address] Occupational Therapist Occupational Therapy 03/15/21 Christina Brunson MD [address] [place] [address] Obstetrics and Gynecology 08/02/22 documented as of this encounter
--- OUTSIDE RECORDS SUMMARY | 2025-03-10 17:05 | XMS_ITS | Clinical Summary ---
Author Organization [facility] [email or web address] Address [address] [place] [address] Care Team Providers Care Or First Assist Registered Nurse Name Role Phone Azam Jackson APRN-CHEMICAL RESEARCH WORKER Primary Care Provide r Source Comments [facility],non-owned Affiliates and Associated Physician Practices is amultiple site organization consisting of ambulatory clinics and hospital sitesin [place] and [place]. This disclosure is being madepursuant to the Care Everywhere program and may not contain all information available regarding this patient. Last updated 18.[facility] [email or web address] Allergies Active Allergy Reactions Criticality Noted Date Comments Prochlorperazine 10/19/2013 Ondansetron 10/19/2013 Promethazine Other Low 02/04/2019 Metoclopramide 10/19/2013 Medications * Be aware that medications may not be up to date on this document. Alwaysverify current medications with the patient. metFORMIN (GLUCOPHAGE) 500 MG tablet Take 1 (one) tablet by mouth 2 times daily with morning and evening meal Has been off meds x2 years; usually controlls fairly well with diet Active TRESIBA FLEXTOUCH 200 UNIT/ML pen INJECT 64 UNITS SUBCUTANEOUSLY ONCE DAILY AT BEDTIME 0 Active rosuvastatin (CRESTOR) 10 MG tablet TAKE 1 TABLET BY MOUTH ONCE DAILY IN THE EVENING 0 Active aspirin EC (ECOTRIN) 81 MG tablet 1 Active buPROPion XL 24hr (WELLBUTRIN-XL ) 150 MG tablet TAKE 1 TABLET BY MOUTH ONCE DAILY IN THE MORNING 1 Active Continuous Blood Gluc Sensor (FREESTYLE AYDEE 14 DAY SENSOR) [facility] 1 Active FARXIGA 10 MG tablet TAKE 1 TABLET BY MOUTH ONCE DAILY IN THE MORNING FOR 90 DAYS 1 Active TRULICITY 3 MG/0.5ML injection INJECT 1 SUB Q ONCE A WEEK IN THE MORNING 1 Active ergocalciferol (DRISDOL) 1.25 MG (33780 UT) capsule Vitamin D2 1,250 mcg (50,000 unit) capsule Active fenofibrate (LOFIBRA) 160 MG tablet TAKE 1 TABLET BY MOUTH ONCE DAILY AT BEDTIME FOR 30 DAYS 1 Active fluticasone propionate (FLONASE) 50 MCG/ACT nasal spray fluticasone propionate 50 mcg/actuation nasal spray,suspension Active glimepiride (AMARYL) 1 MG tablet TAKE 2 TABLETS BY MOUTH TWICE DAILY BEFORE MEAL(S) 1 Active ONETOUCH ULTRA test strip USE A TEST STRIP TO TEST BLOOD SUGAR 3 TO 4 TIMES DAILY BEFORE MEALS 1 Active VASCEPA 0.5 g CAPS 1 Active HYDROcodone-ac etaminophen (NORCO) 5-325 MG tablet hydrocodone 5 mg-acetaminophen 325 mg tablet Active LORazepam (ATIVAN) 1 MG tablet TAKE 1 TABLET BY MOUTH PRE PROCEDURE ONCE FOR 1 DOSE 0 Active losartan-hydro CHLOROthiazide (HYZAAR) 100-25 MG tablet Take 1 tablet by mouth once daily 1 Active sertraline (ZOLOFT) 100 MG tablet sertraline 100 mg tablet TAKE 1 TABLET BY MOUTH ONCE DAILY FOR 30 DAYS Active traZODone (DESYREL) 100 MG tablet trazodone 100 mg tablet TAKE 1 TABLET BY MOUTH EVERY DAY AT BEDTIME NEEDED FOR 30 DAYS Active calcitriol (ROCALTROL) 0.25 MCG capsule calcitriol 0.25 mcg capsule Active clorazepate (TRANXENE) 7.5 MG tablet Take 7.5 mg by mouth 3 times daily 1 Active naltrexone (REVIA) 50 MG tablet every 24 hours Activ e ProAir HFA 108 (90 Base) MCG/ACT inhaler Active fluconazole (Diflucan) 150 MG tablet TAKE 1 TABLET BY MOUTH EVERY 72 HOURS Active losartan (Cozaar) 100 MG tablet Take 1 (one) tablet by mouth once daily Active omeprazole (PriLOSEC) 20 MG capsule 4 Active valACYclovir (Valtrex) 500 MG tablet TAKE [...] Encounters Date Type Department Care Team Description 02/06/2025 Telephone [email or web address] Weight Management Services [address], [address] [place] [address] Chin Mcleod MD Surgery Scheduling 01/16/2025 10:45 AM COMMERCIAL CARPENTER Clinical Support [facility] Health Weight Management Services [address] [place] [address] Morbid obesity 01/16/2025 9:12 AM COMMERCIAL CARPENTER - 01/16/2025 11:59 PM COMMERCIAL CARPENTER Hospital Encounter [facility] Health Imaging Services - Radiology [address] [place] [address] Chin Mcleod MD Discharge Disposition: Home or Self Care 01/06/2025 12:00 PM COMMERCIAL CARPENTER Video Visit [facility] Health Weight Management Services [address], [address] [place] [address] Morbid obesity 01/06/2025 Travel 01/01/2025 Travel 12/27/2024 1:00 PM COMMERCIAL CARPENTER Office Visit [facility] Weight Management Services [address], [address] [place] [address] Chin Mcleod MD Morbid obesity (Primary Dx); Controlled type 2 diabetes mellitus without complication, without long-term current use of insulin; Benign hypertension; Preop testing from Last 3 [...] drink = 0.6 oz pur e alcohol) Comments Unknown Sex and Gender Information Value Date Recorded Sex Assigned at Not on file Legal Sex Female 6:27 AM COMMERCIAL CARPENTER Gender Identity Not on file Sexual Orientation Not on file Last Filed Vital Signs Vital Sign Reading Time Taken Comments Blood Pressure 165/85 12/27/2024 12:43 PM COMMERCIAL CARPENTER Pulse 107 12/27/2024 12:43 PM COMMERCIAL CARPENTER Temperature 36.8 C (98.2 F) 11/28/2020 10:01 PM COMMERCIAL CARPENTER Respiratory Rate 17 11/28/2020 10:0 1 PM COMMERCIAL CARPENTER Oxygen Saturation 97% 12/27/2024 12: 43 PM COMMERCIAL CARPENTER Inhaled Oxygen Concentration - - Weight 100.8 kg (222 lb 3.2 oz) 01/17/2025 6:24 AM COMMERCIAL CARPENTER Height 162.6 cm (5' 4 ) 01/17/2025 6:24 AM COMMERCIAL CARPENTER Body Mass Index 38.14 01/17/2025 6:24 AM COMMERCIAL CARPENTER Plan of Treatment Upcoming Encounters Date Type Department Care Team (Latest Contact Info) Description 04/22/2025 12:00 PM CDT Clinical Support [facility] Weight Management Services [address] [place] [address], [facility] [address] [place] [address] 04/22/2025 2:15 PM CDT Office Visit [facility] Weight Management [address], [facility] [address] [place] [address] Diana Cochran, PREPPER-CHEMICAL RESEARCH WORKER [address] [facility] [address] [place] [address] 05/26/2025 9:59 AM CDT Hospital Encounter [facility] - Perioperative Surgery [address] [place] [address] [place] [address] [address] Surgery General 05/26/2025 9:59 AM CDT - 05/26/2025 12:38 PM CDT Surgery [facility] - Perioperative Surgery [address] [place] [address] [place] [address] [place] [phone] LAPAROSCOPIC GASTRIC BYPASS POSS OPEN 05/26/2025 11:00 AM CDT Procedure visit [facility] Weight Management [address], [facility] [address] [place] [address] Scheduled Procedures Name Priority Associated Diagnoses Date/Ti me LAPAROSCOPIC GASTRIC BYPASS 05/26/2025 9:59 AM CDT Health Maintenance Due Date Last Done Comments [...] exists COVID-19 VACCINE ( - season) 2024 DEPRESSION SCREENING 11/20/2024 DIABETES - URINE PROTEIN SCREENING 11/20/2024 INFLUENZA VACCINE (Season Ended) 2025 ZOSTER VACCINE (1 of 2) 2033 HIB VACCINE Aged Out No longer eligi ble based on patient's age to complete this topic HPV VACCINE Aged Out No longer eligi ble based on patient's age to complete this topic MENINGOCOCCAL (Group B) VACCINE SHARED DECISION-MAKING Aged Out No longer eligible based on patient's age to complete this topic MENINGOCOCCAL GROUPS A/C/Y/W VACCINE Aged Out No longer eligible based on patient's age to complete this topic Procedures Procedure Name Priority Date/Time Associated Diagnosis Comments FL UGI W AIR CONTRAST Routine 01/16/2025 9:48 AM COMMERCIAL CARPENTER Morbid obesity Controlled type 2 diabetes mellitus without complication, without long-term current use of insulin Benign hypertension Preop testing CREATININE BLOOD - POINT OF CARE (IP) Routine 08/11/2021 11:57 AM CDT Renal cyst from Last 3 Months or Most Recently Relevant to Health Maintenance Results * FL Ugi W Air Contrast (01/16/2025 9:48 AM COMMERCIAL CARPENTER) Anatomical Region Laterality Modality Abdomen Computed Radiogr aphy Impressions 01/16/2025 3:57 PM COMMERCIAL CARPENTER IMPRESSION: Patulous distal esophagus with episodes of spontaneous gastroesophageal reflux to the clavicle level. A patulous distal esophagus appears to be a distended area of the esophagus rather than a hiatal hernia as I cannot define cephalad migration of gastric mucosa or a Schatzki's ring. > Interpreting Provider: Jeff Veras MD on 01/16/2025 3:57 PM Narrative 01/16/2025 3:57 PM COMMERCIAL CARPENTER PROCEDURE: FL UGI SERIES DATE/TIME OF EXAM: 01/16/2025 10:15 AM CLINICAL INFORMATION: None relevant/not provided if blank. Indication: E66.01: Morbid (severe) obesity due to excess calories (HCC) E11.9: Type 2 diabetes mellitus without complications (HCC) I10: Essential (primary) hypertension Z01.818: Encounter for other preprocedural examination Additional History: COMPARISON: None. TECHNIQUE: Patient ingested effervescent crystals. Fluoroscopic spot and cine images were obtained during the procedure. Patient subsequently drank thin barium in various positions. FINDINGS: The patient has a patulous distal esophagus. There was spontaneous gastroesophageal reflux multiple episodes to the clavicle level. The expanded distal esophagus does not appear to contain gastric mucosa. Therefore, this appears to be just a distended distal esophagus of uncertain significance. No Schatzki's ring was identified. Stomach emptied normally into the duodenum. The duodenal bulb distend readily. Normal duodenal sweep peristalsis. FLUOROSCOPY DOSE: 8.63 mGy Reference air kerma (ka,r). Chin Mcleod MD FLUOROSCOPY ORDERABLES Edite d Result - Final * CREATININE BLOOD - POINT OF CARE (IP) (08/11/2021 11:57 AM CDT) Creatinine POCT 1.15 0.7 - 1.2 mg/dL [facility] POCT TESTING QC Verified Yes Yes [facility] POC T TESTING Blood BLOOD SPECIMEN / Unknown 08/11/2021 11:57 AM CDT Trevon Monique MD LAB - POINT OF CARE ORDERA BLES Final Result [facility] POCT TESTING [address] [phone] from Last 3 Months or Most Recently Relevant to Health Maintenance Insurance ANTHEM Care Teams Or First Assist Registered Nurse Relationship Specialty Start Date End Date Azam Jackson, PREPPER-CHEMICAL RESEARCH WORKER [address] [facility] [place] [address] PCP - General Nurse Practitioner Gerontology 11/28/20
--- OUTSIDE RECORDS SUMMARY | 2025-03-10 17:05 | XMS_ITS ---
Author Organization [facility] Address [address] [place] [address] Care Team Providers Care Vehicle Safety Inspector Name Role Phone Andrei Clark Primary Care Provider [phone] Elizabeth Hanna [phone] REASON FOR VISIT Linkage to Community Resources Social History Sex Assigned At : Social History Observation Description Sex Assigned At Female Encounters Encounter Location Date Provider Diagnosis [facility] [address] [place] [address] 03/05/2025 Elizabeth Hanna Major depressive disorder, recurrent episode, severe, with psychotic behavior F33.3 Assessments Encounter Date Diagnosis (ICD Code) Assessment Notes Treatment Notes Treatment Clinical Notes Section Notes 03/05/2025 Major depressive disorder, recurrent episode, severe, with psychotic behavior (ICD-10 - F33.3) 03/05/2025 Other Clinician received referral to link client to counseling via [email or web address]. Utilized person centered focus and motivational interviewing to assist client in identifying goals for treatment. Goals include reducing negative mental health symptoms. Client was provided information for central access phone number, process, intake education. Client denies further needs at this time. Plan Of Treatment Treatment Notes Assessment Notes Other Clinician received r eferral to link client to counseling via [email or web address]. Utilized person centered focus and motivational interviewing to assist client in identifying goals for treatment. Goals include reducing negative mental health symptoms. Client was provided information for central access phone number, process, intake education. Client denies further needs at this time. Progress Notes * Kylee FIGUEROA RDOB:1985 (39 yo F)Acc No.[id number]:03/05/2025 Patient: Kylee HEATH Provider: Delmi Hanna :1985 A ge:39 Y S ex:Female Date:03/05/2025 Address:[address] [place], [place] [address]Aris RAMOS [facility] Pcp:Andrei Clark Subjective: * Chief Complaints: * L inkage to Community Resources * HPI: a TBC For Mental Health Services: Who Is Your Primary Care Provider? D o You Have A PCP? Y es. D o You Have A Psychiatric Provider? D o You Have A Psychiatric Provider? N o.?Do You Have Any Other Professional Supports? D o You Have Any Other Professional Supports? No. C onsent Forms Completed During Appointment C onsent Forms Completed N one Needed at this time. A ssessment of Social Determinants of Health::: Has A PRAPARE Been Completed In The Past Year? H as a PRAPARE Been Completed In The Past Year? Y es, W as It Completed Today Using SmartForm? N o.? * Medical History: * Surgical History: * Hospitalization/Major Diagno stic Procedure: * Medications: Objective: * Vitals: * Examination: G eneral Examination: Mental Status Exam A ttitude and Behavior C ooperativeMood E uthymicAffect WNLSpeech A ppropriateThought Process C oherent and Goal DirectedThought Content A ppropriateSuicidal Ideation D enies Current Thoughts/PlansInsight F airJudgement F airSensorium and Cognition A lert. E xplanation of presentation/need: completed via telehealth. Assessment: * Assessment: 1. M ajor depressive disorder, recurrent episode, severe, with psychotic behavior - F33.3 (Primary) Plan: * Treatment: * Procedure Codes: C HS08 [facility] [id number] PSYCH DIAGNOSTIC EVALUATION, Modifiers: AJ * * Electronically co-signed by Danica Wise LCSW, [id number] on 03/10/2025 at 11:19 AM CDT Sign off status: Completed true * Provider: Delmi Hanna Date: 0 03/05/2025 Generated for Lupis ruiz/Cayla/Aleks on: 0 03/10/2025 05:04 PM CDT History and Physical Notes * HPI (History of Present Illness) Category Sub-Category Detail Notes Category Not es Assessment of Social Determinants of Health:: Has A PRAPARE Been Completed In The Past Year? Has a PRAPARE Been Completed In The Past Year?: Yes Was It Completed Today Using [employer]?: No [facility] Who Is Your Primary Care Provider? Do You Have A PCP?: Yes Do You Have A Psychiatric Provider? Do You Have A Psychiatric Provider?: No Do You Have Any Other Profes sional Supports? Do You Have Any Other Professional Supports?: No Consent Forms Completed During Appointme nt Consent Forms Completed: None Needed at this time Examination Category Sub-Category Detail Notes Category Not es General Examination Mental Status Exam Attitude and Behavior: Cooperative Explanation of presentation/need: completed via telehealth Mood: Euthymic Affect: WNL Speech: Appropriate Thought Process: Coherent and Goal Direc mai Thought Content: Appropriate Suicidal Ideation: Denies Current Though ts/Plans Insight: Fair Judgement: Fair Sensorium and Cognition: Alert
--- OUTSIDE RECORDS SUMMARY | 2025-03-10 17:05 | XMS_ITS | Clinical Summary ---
Author Organization [facility] [address] Address [address] [place] [address] Care Team Providers Care Special Events Driver Name Role Phone Andrei Clark MD Primary Care Provider [phone] Kandace Freedman OT Unavailable [phone] Christina Brunson MD Unavailable [phone] Allergies Active Allergy Reactions Criticality Noted Date [...] mellitus 03/31/2022 Atherosclerotic heart diseas e of [place] coronary artery without angina pectoris 12/31/2020 Unspecified [...] this with Dr. Pérez. Recs: 1. Call [facility] to make appt (she understands she needs to be the one to call) for CBT for FND, anxiety, depression. 2. Consider Valium after I discuss with Dr. Pérez. 3. Continue with psychiatry. 4. Start positive self talk and meditative exercises for spells . 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/2020 2:55 PM SUPERCHARGE REPAIR SUPERVISOR): She has abnormal involuntary movements including [...] video EEG (scheduled for next month at [facility]) to clarify whether any aspect of [...] Polycystic ovarian disease DVT (deep venous thrombosis) (HCC) Idiopathic intracranial hypertension Polycystic kidney disease [...] on file Legal Sex Female 4:48 PM SUPERCHARGE REPAIR SUPERVISOR Gender Identity Not on file Sexual [...] Diagnosis Comments EGFR Routine 10/17/2022 5:08 PM SUPERCHARGE REPAIR SUPERVISOR Cyst of left ovary HEMOGLOBIN A1C STAT 08/23/2019 5:28 PM CDT from Last 3 Months or Most Recently Relevant to Health Maintenance Results * (ABNORMAL) eGFR (10/17/2022 5:08 PM SUPERCHARGE REPAIR SUPERVISOR) eGFR 82(L) 90 - 130 mL/min/1. [...] last reviewed 2021. Blood 10/17/2022 5:08 PM SUPERCHARGE REPAIR SUPERVISOR 10/17/2022 5:58 PM SUPERCHARGE REPAIR SUPERVISOR us Premal Elia Jackson MD LAB BLOOD ORDERABLES Fin al Result [facility] Department [place] [address] * (ABNORMAL) Hemoglobin A1c (08/23/2019 5:28 PM CDT) Hgb A1C 11.1(H) 4.0 - 5.6 % [facility] SAM Estimated Average Glucose 272 mg/dL LUCIEN SAM Comment: The ADA recommends reporting an estimated Average Glucose (eAG) with all Hemoglobin A1c results using the equation derived from a study of 507 normal and diabetic adults. Minority populations were underrepresented and children were not included. (Diabetes Care 31:4780-6858, 2008). The eAG is not equivalent to a fasting glucose. Blood specimen (specimen) 08/23/2019 5:28 PM CDT 08/23/2019 6:04 PM CDT us Notinfile Unknown LAB BLOOD ORDERABLES Final Res ult [facility] [address] [place] [address] from Last 3 Months or Most Recently Relevant to Health Maintenance Insurance [facility] Member Subscriber Plan / Payer ( fective 2019-Present) Name:Kylee Guo Relation to Subscriber:Self Name:Kylee Guo Payer ID:[id number] (NAIC) Group ID:[id number] Type:[id number] Address: [address] [facility] [employer] [facility] [employer] Advance Directives For more information, please contact: [phone] * Full Code (Latest Code Status on File) Date Activated Date Inactivated Comments 01/25/2021 9:49 AM 01/31/2021 8:38 PM * Full Code Date Activated Date Inactivated Comments 02/11/2019 4:38 PM 02/13/2019 11:05 AM Care Teams Special Events Driver Relationship Specialty Start Date End Date Andrei Clark MD PCP - General Internal Medicine 12/11/20 Kandace Freedman OT Occupational Therapist Occupational Therapy 03/15/21 Christina Brunson MD [address] [place] [address] Obstetrics and Gynecology 08/02/22
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
--- OUTSIDE RECORDS SUMMARY | 2025-03-10 18:23 | XMS_ITS | Clinical Summary ---
Author Organization [facility] Address [address] [place] [address] Care Team Providers Care Transporter Driver Name Role Phone Azam Jackson APRN-PET TRAINER Primary Care Provide r Source Comments [facility],non-owned Affiliates and Associated Physician Practices is amultiple site organization consisting of ambulatory clinics and hospital sitesin [place], [place], [place] and [place]. This disclosure is being madepursuant to the Care Everywhere program and may not contain all information available regarding this patient. Last updated 18.[facility] Allergies Active Allergy Reactions Criticality Noted Date [...] SENSOR) [facility] 1 Active FARXIGA 10 MG tablet TAKE 1 TABLET BY MOUTH ONCE DAILY IN THE MORNING FOR 90 DAYS 1 Active TRULICITY 3 MG/0.5ML injection INJECT 1 SUB Q ONCE A WEEK IN THE MORNING 1 Active ergocalciferol (DRISDOL) 1.25 MG (04090 UT) capsule Vitamin D2 1,250 mcg (50,000 [...] Type Department Care Team Description 02/06/2025 Telephone [facility] Weight Management Services [address] [place] [place], [address] [place] [address] Chin Mcleod MD Surgery Scheduling 01/16/2025 10:45 AM CLINICAL SUPPORT MANAGER Clinical Support [facility] Health Weight Management Services [address] [place] [place], [address] [place] [address] Morbid obesity 01/16/2025 9:12 AM CLINICAL SUPPORT MANAGER - 01/16/2025 11:59 PM CLINICAL SUPPORT MANAGER Hospital Encounter [facility] Health Imaging Services - Radiology [address] [place] [address] Chin Mcleod MD Discharge Disposition: Home or Self Care 01/06/2025 12:00 PM CLINICAL SUPPORT MANAGER Video Visit [facility] Weight Management Services [address] [place] [address] Morbid obesity 01/06/2025 Travel 01/01/2025 Travel 12/27/2024 1:00 PM CLINICAL SUPPORT MANAGER Office Visit [facility] Weight Management Services [address] [place] [place], [address] [place] [address] Chin Mcleod MD Morbid obesity (Primary Dx); [...] on file Legal Sex Female 6:27 AM CLINICAL SUPPORT MANAGER Gender Identity Not on file Sexual Orientation Not on file Last Filed Vital Signs Vital Sign Reading Time Taken Comments Blood Pressure 165/85 12/27/2024 12:43 PM CLINICAL SUPPORT MANAGER Pulse 107 12/27/2024 12:43 PM CLINICAL SUPPORT MANAGER Temperature 36.8 C (98.2 F) 11/28/2020 10:01 PM CLINICAL SUPPORT MANAGER Respiratory Rate 17 11/28/2020 10:0 1 PM CLINICAL SUPPORT MANAGER Oxygen Saturation 97% 12/27/2024 12: 43 PM CLINICAL SUPPORT MANAGER Inhaled Oxygen Concentration - - Weight 100.8 kg (222 lb 3.2 oz) 01/17/2025 6:24 AM CLINICAL SUPPORT MANAGER Height 162.6 cm (5' 4 ) 01/17/2025 6:24 AM CLINICAL SUPPORT MANAGER Body Mass Index 38.14 01/17/2025 6:24 AM CLINICAL SUPPORT MANAGER Plan of Treatment Upcoming Encounters Date Type Department Care Team (Latest Contact Info) Description 04/22/2025 12:00 PM CDT Clinical Support [facility] Weight Management Services [address] [place] [address], [facility] [address] [place] [address] 04/22/2025 2:15 PM CDT Office Visit [facility] Weight Management [address], [facility] [address] [place] [address] Diana Cochran, EPIC RADIANT ANALYST-PET TRAINER [address] [facility] [address] [place] [phone] 05/26/2025 9:59 AM CDT Hospital Encounter [facility] - Perioperative Surgery [address] [place] [address] [place] [address] [address] [address] Surgery General 05/26/2025 9:59 AM CDT - 05/26/2025 12:38 PM CDT Surgery [facility] - Perioperative Surgery [address] [place] [address] [place] [address] [address] [place] [phone] LAPAROSCOPIC GASTRIC BYPASS POSS OPEN 05/26/2025 11:00 AM CDT Procedure visit [facility] Weight Management [address], [facility] [address] [place] [address] Scheduled Procedures Name Priority Associated Diagnoses Date/Ti [...] W AIR CONTRAST Routine 01/16/2025 9:48 AM CLINICAL SUPPORT MANAGER Morbid obesity Controlled type 2 diabetes mellitus without complication, without long-term current use of insulin Benign hypertension Preop testing CREATININE BLOOD - POINT OF CARE (IP) Routine 08/11/2021 11:57 AM CDT Renal cyst from Last 3 Months or Most Recently Relevant to Health Maintenance Results * FL Ugi W Air Contrast (01/16/2025 9:48 AM CLINICAL SUPPORT MANAGER) Anatomical Region Laterality Modality Abdomen Computed Radiogr aphy Impressions 01/16/2025 3:57 PM CLINICAL SUPPORT MANAGER IMPRESSION: Patulous distal esophagus with episodes of spontaneous gastroesophageal reflux to the clavicle level. A patulous distal esophagus appears to be a distended area of the esophagus rather than a hiatal hernia as I cannot define cephalad migration of gastric mucosa or a Schatzki's ring. > Interpreting Provider: Jeff Veras MD on 01/16/2025 3:57 PM Narrative 01/16/2025 3:57 PM CLINICAL SUPPORT MANAGER PROCEDURE: FL UGI SERIES DATE/TIME OF EXAM: [...] ORDERA BLES Final Result [facility] [address] [phone] from Last 3 Months or Most Recently Relevant to Health Maintenance Insurance [employer] Care Teams Transporter Driver Relationship Specialty Start Date End Date Azam Jackson, EPIC RADIANT ANALYST-PET TRAINER [address] [facility] [place] [address] PCP - General Nurse Practitioner Gerontology 11/28/20
--- OUTSIDE RECORDS SUMMARY | 2025-03-10 18:23 | XMS_ITS | CONTINUITY OF CARE DOCUMENT ---
Author Name padmini, padmini Address Unknown Organization [facility] Address [address] [place] [address] Phone [phone] Care Team Providers Care Vertical Roll Operator Name Role Phone Chitra RUEDA, Lucio Unavailable CHITRA RUEDA, MIGUEL Unavailable ABELINO RUEDA, FABIÁN Unavailable [phone] PROBLEMS Condition Status Date Provider Notes Migraine [...] Payer name Policy type / Coverage type [place] red democrat ID [facility] [id number]
--- OUTSIDE RECORDS SUMMARY | 2025-03-10 18:23 | XMS_ITS | Referral Summary ---
Author Organization [facility] [address] Address [address] [place] [address] Care Team Providers Care Tool Pusher Name Role Phone Andrei Clark MD Primary Care Provider [phone] Kandace Freedman OT Unavailable [phone] Christina Brunson MD Unavailable [phone] Allergies Active Allergy Reactions Criticality Noted Date [...] mellitus 03/31/2022 Atherosclerotic heart diseas e of [place] coronary artery without angina pectoris 12/31/2020 Unspecified [...] with Dr. Pérez. Recs: 1. Call [facility] to make appt (she understands she needs to be the one to call) for CBT for FND, anxiety, depression. 2. Consider Valium after I discuss with Dr. Pérez. 3. Continue with psychiatry. 4. Start positive self talk and meditative exercises for spells . 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 73 [...] last reviewed 2021. Blood 10/17/2022 5:08 PM SHEEP AND WHEAT FARMER 10/17/2022 5:58 PM SHEEP AND WHEAT FARMER us Premaz Elia Jackson MD LAB BLOOD ORDERABLES Fin al Result [facility] [place] [address] * (ABNORMAL) Hemoglobin A1c (08/23/2019 5:28 PM CDT) Hgb A1C 11.1(H) 4.0 - 5.6 % [facility] Estimated Average Glucose 272 mg/dL [facility] Comment: The ADA recommends reporting an estimated Average Glucose (eAG) with all Hemoglobin A1c results using the equation derived from a study of 507 normal and diabetic adults. Minority populations were underrepresented and children were not included. (Diabetes Care 31:6688-4542, 2008). The eAG is not equivalent to a fasting glucose. Blood specimen (specimen) 08/23/2019 5:28 PM CDT 08/23/2019 6:04 PM CDT us Notinfile Unknown LAB BLOOD ORDERABLES Final Res ult [facility] [address] [place] [address] from Last 3 Months or Most Recently Relevant to Health Maintenance Insurance [facility] Member Subscriber Plan / Payer ( fective 2019-Present) Name:Kylee Guo Relation to Subscriber:Self Name:Kylee Guo Payer ID:[id number] (NAIC) Group ID:[id number] Type:[employer] Address: [address] [facility] [employer] [facility] [employer] Advance Directives For more information, please contact: [phone] * Full Code (Latest Code Status on File) Date Activated Date Inactivated Comments 01/25/2021 9:49 AM 01/31/2021 8:38 PM * Full Code Date Activated Date Inactivated Comments 02/11/2019 4:38 PM 02/13/2019 11:05 AM Care Teams Tool Pusher Relationship Specialty Start Date End Date Andrei Clark MD PCP - General Internal Medicine 12/11/20 Kandace Freedman OT Occupational Therapist Occupational Therapy 03/15/21 Christina Brunson MD [address] [place] [address] Obstetrics and Gynecology 08/02/22
--- OUTSIDE RECORDS SUMMARY | 2025-03-10 18:23 | XMS_ITS | Clinical Summary ---
Author Organization [facility] [address] Address [address] [place] [address] Care Team Providers Care Sonographer Name Role Phone Andrei Clark MD Primary Care Provider [phone] Kandace Freedman OT Unavailable [phone] Christina Brunson MD Unavailable [phone] Allergies Active Allergy Reactions Criticality Noted Date [...] mellitus 03/31/2022 Atherosclerotic heart diseas e of [place] coronary artery without angina pectoris 12/31/2020 Unspecified [...] this with Dr. Pérez. Recs: 1. Call [facility] to make appt (she understands she needs to be the one to call) for CBT for FND, anxiety, depression. 2. Consider Valium after I discuss with Dr. Pérez. 3. Continue with psychiatry. 4. Start positive self talk and meditative exercises for spells . 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) to clarify whether any aspect of [...] on file Legal Sex Female 4:48 PM AIRFIELD MANAGER Gender Identity Not on file Sexual [...] Diagnosis Comments EGFR Routine 10/17/2022 5:08 PM AIRFIELD MANAGER Cyst of left ovary HEMOGLOBIN A1C STAT 08/23/2019 5:28 PM CDT from Last 3 Months or Most Recently Relevant to Health Maintenance Results * (ABNORMAL) eGFR (10/17/2022 5:08 PM AIRFIELD MANAGER) eGFR 82(L) 90 - 130 mL/min/1. 73 m2 [facility] Comment: Interpretive Data Reference Interval Normal [...] last reviewed 2021. Blood 10/17/2022 5:08 PM AIRFIELD MANAGER 10/17/2022 5:58 PM AIRFIELD MANAGER us Premal Elia Jackson MD LAB BLOOD ORDERABLES Fin al Result [facility] Department [place] [address] * (ABNORMAL) Hemoglobin A1c (08/23/2019 5:28 PM CDT) Hgb A1C 11.1(H) 4.0 - 5.6 % [facility] Estimated Average Glucose 272 mg/dL [facility] Comment: The ADA recommends reporting an estimated Average Glucose (eAG) with all Hemoglobin A1c results using the equation derived from a study of 507 normal and diabetic adults. Minority populations were underrepresented and children were not included. (Diabetes Care 31:8139-9930, 2008). The eAG is not equivalent to a fasting glucose. Blood specimen (specimen) 08/23/2019 5:28 PM CDT 08/23/2019 6:04 PM CDT us Notinfile Unknown LAB BLOOD ORDERABLES Final Res ult [facility] [address] [place] [address] from Last 3 Months or Most Recently Relevant to Health Maintenance Insurance [facility] Member Subscriber Plan / Payer ( fective 2019-Present) Name:Kylee Guo Relation to Subscriber:Self Name:Kylee Guo Payer ID:[id number] (NAIC) Group ID:[id number] Type:[employer] Address: [address] [facility] [employer] [facility] [employer] Advance Directives For more information, please contact: [phone] * Full Code (Latest Code Status on File) Date Activated Date Inactivated Comments 01/25/2021 9:49 AM 01/31/2021 8:38 PM * Full Code Date Activated Date Inactivated Comments 02/11/2019 4:38 PM 02/13/2019 11:05 AM Care Teams Sonographer Relationship Specialty Start Date End Date Andrei Clark MD PCP - General Internal Medicine 12/11/20 Kandace Freedman OT Occupational Therapist Occupational Therapy 03/15/21 Christina Brunson MD [address] [place] [address] Obstetrics and Gynecology 08/02/22
--- OUTSIDE RECORDS SUMMARY | 2025-03-10 18:23 | XMS_ITS | Encounter Summary ---
Author Organization [facility] Address [address] [place] [address] Phone Care Team Providers Care Software Product Manager Name Role Phone Unknown, Notinfile Primary Care Provider Unavail able Dorota Martinez MD Primary Care Provider [phone] Andrei Clark MD Primary Care Provider [phone] Kandace Freedman OT Unavailable [phone] Christina Brunson MD Unavailable [phone] Encounter Details Date Type Department Care Team (Late st Contact Info) Description 02/07/2019 Ophth Exam [facility] Ophthalmology [address] [place] [address] 1[address] [place] [id number] Diana Leon MD PhD [address] [place] [address] Social History Tobacco Use Types Packs/Day Years [...] on file 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 Gender Identity Not on file Sexual Orientation [...] no RT/RD/necrosis no RT/RD/necro sis Care Teams Software Product Manager Relationship Specialty Start Date End Date Unknown, Notinfile PCP - General 02/04/19 02/10/19 Dorota Martinez MD [address] [place] [address] PCP - General 02/11/19 12/10/20 Andrei Clark MD [address] [address] PCP - General Internal Medicine 12/11/20 [place] [address] [place] [address] Occupational Therapist Occupational Therapy 03/15/21 Christina Brunson MD [address] [place] [address] Obstetrics and Gynecology 08/02/22 documented as of this encounter
[2025-03-10] MEDS: SCOPOLAMINE 1 MG PATCH 1 PATCH TRANSDERM (18:28)
[2025-03-10] MEDS: diphenhydrAMINE HCl INJ 50 MG/ML VIAL 25 MG IV PUSH (18:33)
[2025-03-10] MEDS: SODIUM CHLORIDE 0.9% IV 1,000 ML 999 ML IV CONT ×2 (18:33)
--- NOTE | 2025-03-10 18:47 | PC.NURSE ---
patient unable to urinate at this time. will try after fluids
--- NOTE | 2025-03-10 19:15 | PC.NURSE ---
Received report from HARDIK Sullivan for cont. of care. Pt AOx4 lying on stretcher, reports medication to be effective. PT receiving fluids at this time, appears in NAD. PT made aware need urine sample.
[2025-03-10] MEDS: diazePAM INJ (*CRX) 10 MG/2 ML SYRINGE 5 MG IV PUSH (20:05)
[2025-03-10 20:20] LABS: Add Urine Microscopic? YES; Appearance Urine Clear (Clear); Bacteria Urine None Seen /hpf; Bilirubin Urine Negative (Negative); Blood Urine Negative (Negative); Color Urine Yellow (Yellow); Glucose Urine UA 3+ mg/dL (Negative); Ketones Urine Negative (Negative); Leukocyte Esterase Ur Negative LEU/UL (Negative); Nitrate Urine Negative (Negative); Protein Urine 1+ mg/dL (Negative); RBC Urine 0-2 /hpf (0-2); Specific Grav Ur 1.019 (1.001-1.035); Squamous Epithelial Cell Urine None Seen /hpf (Few); Urobilinogen Urine 0.2 mg/dL (<2.0); WBC Urine 0-5 /hpf (0-3)
[2025-03-10 20:36] LABS: Amphetamine Screen Urine Negative (Negative); Barbiturate Screen Urine Negative (Negative); Benzodiazepines Screen Urine Negative (Negative); Cannabinoid Screen Urine Negative (Negative); Cocaine Screen Urine Negative (Negative); Methadone Screen Urine Negative (Negative); Opiate Screen Urine Negative (Negative); Phencyclidine Screen Urine Negative (Negative)
[2025-03-10 21:07] LABS: Anion Gap 10 mmol/L (4-12); Blood Urea Nitrogen 40 mg/dL (7-17); Calcium 8.2 mg/dL (8.4-10.2); Carbon Dioxide 22 mmol/L (22-30); Chloride 104 mmol/L (98-107); Estimated CRCL calculation 67 ml/min; Estimated Glomerular Filt Rate 53; Glucose 150 mg/dL (65-110); Potassium 3.5 mmol/L (3.4-5.0); Sodium 136 mmol/L (137-145)
== END 2025-03-10 21:55 | disposition home or self-care (01) ==
PROVIDERS: Registered Nurse; Emergency Provider Physician Assistant; PCP Internal Medicine
DX: H81.399 Other peripheral vertigo, unspecified ear (principal); E11.22 Type 2 diabetes mellitus with diabetic chronic kidney disease; I12.9 Hypertensive chronic kidney disease with stage 1 through stage 4 chronic kidney disease, or unspecified chronic kidney disease; N18.9 Chronic kidney disease, unspecified; E28.2 Polycystic ovarian syndrome; E78.5 Hyperlipidemia, unspecified; M47.812 Spondylosis without myelopathy or radiculopathy, cervical region; M47.816 Spondylosis without myelopathy or radiculopathy, lumbar region; M79.7 Fibromyalgia; K21.9 Gastro-esophageal reflux disease without esophagitis; F41.9 Anxiety disorder, unspecified; Z87.891 Personal history of nicotine dependence; Z90.79 Acquired absence of other genital organ(s); Z90.721 Acquired absence of ovaries, unilateral; Z90.49 Acquired absence of other specified parts of digestive tract; Z79.82 Long term (current) use of aspirin; Z79.84 Long term (current) use of oral hypoglycemic drugs; Z79.899 Other long term (current) drug therapy; Z79.4 Long term (current) use of insulin
CPT/HCPCS: 36415; 70450; 80048; 80053; 80307; 81001; 84443; 84484; 85025; 93005; 96361; 96374; 96375; 99284; A9270; J1200; J3360; J7030

== ENCOUNTER 2025-05-01 12:19 | Emergency (ER) | payer BC, SELFPAY ==
--- NOTE | ~2025-05-01 | CT_ITS ---
Non-contrast Head CT History: Vertigo COMPARISON: 03/10/2025 Technique: Axial non-contrast imaging of the brain was performed. Dose reduction technique was used on this scan by utilizing automated exposure control and iterative reconstruction technique. The dose -length product (DLP) was 681.00 mGy-cm. Findings: There is no evidence of intracranial hemorrhage, mass lesion, or acute infarct. Brain par enchyma appears normal. The ventricles and subarachnoid spaces are normal in size. The calvarium ap pears normal. The visualized paranasal sinuses and mastoid air cells are clear. Impression: No significant abnormality seen. Reviewed, dictated and finalized at location . Impression: No significant abnormality seen.
--- NOTE | ~2025-05-01 | XR_ITS ---
EXAMINATION: XR chest 1V portable 05/01/2025 13:18 INDICATION: Vertigo PROCEDURE: AP portable chest COMPARISON: Comparison to multiple prior studies sequentially, with oldest reviewed study dated 08/09. FINDINGS: The lungs are clear. The cardiomediastinal silhouette is within normal limits. There are no pleural effusions. There is no pneumothorax suspected. IMPRESSION: 1: NO ACUTE CARDIOPULMONARY DISEASE. Reviewed, dictated and finalized at location B.
--- NOTE | 2025-05-01 12:25 | ECG_ITS ---
Test Date: 2025-05-01 12:32:37 Measurements Intervals [place] Rate: 102 P: 23 AR: 140 QRS: 22 QRSD: 92 T: 53 QT: 361 QTc: 472 Interpretive Statements SINUS TACHYCARDIA EARLY PRECORDIAL R/S TRANSITION CONSIDER INFERIOR INFARCT, AGE INDETERMINATE BASELINE ARTIFACT- I, III, AVR, AVL, AVF BORDERLINE ECG Compared to ECG 03/10/2025 15:57:09 NO SIGNIFICANT CHANGE Electronically Signed On 05-01-2025 12:55:36 CDT by Ar Valle D.O.
[2025-05-01 12:26] VITALS: BP 148/82; PULSE 104; PULSE 107; RESP 18; RESP 24; O2SAT 100; O2SAT 99
[2025-05-01 12:31] LABS: Glucose Point of Care 255 mg/dl (65-105)
--- NOTE | 2025-05-01 12:40 | ED.DIZZY ---
HPI - Dizziness General Chief Complaint: Neuro Symptoms/Deficit Stated Complaint: dizzy, speech changes since yesterdahx FND dx 2020 Time Seen by Provider: 05/01/25 12:24 History of Present Illness HPI Narrative: 39-year-old female with a past medical history including positional vertigo, hypertension, diabetes insulin-dependent, pseudoseizures, functional neuro disorder. Patient presents to the emergency department with complaints of vertiginous sensations started last morning around 9:00 a.m.. Patient states it feels very similar to last time she had vertigo was a February and visit the ER here. She has had symptomatic positional vertigo on off for multiple years and she exhibits room spinning sensations with worsening in certain directions and worsening with standing up. No falls or injuries. Denies any blood thinner use. Denies any history of strokes. She also get stuttering speech patterns when her vertiginous episodes occur as well as a headache. Today presents very similarly with symptoms going on for 2 days this time associated with a headache, left-sided her head, profound vertigo with worsening dizziness towards the right side and stuttering speech but no dysarthria, aphasia, slurring of speech, facial asymmetries, weakness in the arms or legs, sensation deficits, or ataxia. Has not tried anything besides positional maneuvers which her doctor recommended which seem to make the symptoms worse. Related Data Home Medications ?Medication ?Instructions ?Recorded ?Confirmed ?Last Taken ?Type metformin 500 mg tablet,extended 500 mg PO DAILY 04/30/20 01/10/25 11/17/20 09:00 History release 24 hr albuterol sulfate 90 mcg/actuation 1 inh inhalation PRN PRN Shortness 07/06/20 01/10/25 11/16/20 21:00 History aerosol inhaler (ProAir HFA) Of Breath insulin degludec 200 unit/mL (3 40 unit subcut HS 07/06/20 01/10/25 01/09/25 History mL) subcutaneous pen (Tresiba FlexTouch U-200 insulin) rosuvastatin 10 mg tablet (Crestor) 10 mg PO DAILY 08/09/20 01/10/25 11/17/20 21:00 History dapagliflozin propanediol 10 mg 10 mg PO DAILY 04/20/22 01/10/25 Unknown History tablet (Farxiga) aspirin 81 mg tablet,delayed 81 mg PO DAILY 11/10/24 01/10/25 Unknown History release bupropion HCl 150 mg 24 hr tablet, 150 mg PO DAILY 11/10/24 01/10/25 01/09/25 History extended release fluconazole 150 mg tablet 150 mg PO PRN PRN yeast infections 01/10/25 01/10/25 Unknown History amlodipine 5 mg tablet 5 mg PO BID 03/10/25 03/10/25 Unknown History valsartan 320 1 tablet PO DAILY 03/10/25 03/10/25 03/10/25 History mg-hydrochlorothiazide 25 mg tablet Allergies Allergy/AdvReac Type Severity Reaction Status Date / Time metoclopramide AdvReac Severe PANIC Verified 03/10/25 15:04 ATTACKS ondansetron AdvReac Severe PANIC Verified 03/10/25 15:04 ATTACKS prochlorperazine (From AdvReac Severe PANIC Verified 03/10/25 15:04 Compazine) ATTACKS promethazine AdvReac Severe PANIC Verified 03/10/25 15:04 ATTACKS adhesive tape AdvReac Intermediate Rash Verified 03/10/25 15:04 Review of Systems Review of Systems: As reviewed above in [facility]PI [facility] Past Medical History Medical History Yeast infection Colon, diverticulosis Hematochezia Constipation Complex cyst of left ovary surgical removal SOB (shortness of breath) Bilateral hand pain Chronic kidney disease CRP elevated Myalgia Myalgia BOBBY positive (~2020) Degenerative joint disease of cervical and lumbar spine Pseudotumor cerebri History of Pettit's palsy Kidney cysts Followed by a gift basket packer in [place]. Anxiety Migraine headache Polycystic ovarian syndrome Gastroesophageal reflux disease Insulin dependent type 2 diabetes mellitus Hemoglobin A1c on 11/12/2020 was 7.9%. Dyslipidemia Empty sella syndrome Fibromyalgia Hypertension Surgical History Surgical History History of esophagogastroduodenoscopy (EGD) History of unilateral oophorectomy History of bilateral salpingectomy History of tubal ligation Delivery by section xs 2 History of laparoscopic cholecystectomy (~2005) Family History Family History Father Diabetes mellitus Hypertension Myocardial infarct Heart disease Mother Diabetes mellitus Heart disease Sibling Narcolepsy and cataplexy Legal Guardian No problems noted. Grandparent Breast cancer Social History Social History Social History: The patient is and lives in [place] with her teenage son and daughter. She works for the [employer]. She smoked about a half a pack of cigarettes a day and quit in June 2020. No alcohol or illicit substance abuse. She designates her daughter Kiesha as her surrogate decision maker and she wishes to be a full code. Smoking packs per day: 1 Smoking cigarettes per day: 20.0 Years smoked: 20 Smoking pack-years: 20.00 Smoking status: Former smoker Tobacco type: cigarettes Second hand tobacco smoke exposure: Yes Smoking end date: 06/29/20 Alcohol intake: never Substance use: never Substance use type: does not use Other substance usage details: Previously used marijuana; denies currently Last use: DAILY Do You Feel Safe in your Home?: Yes Lack of Transportation: No Lack of Food: Never True Current Housing: I Have Housing Concerned About Future Housing: No Difficulty Paying Gas/Electric Bills: No Difficulty Paying for Meds: No Currently Unemployed: No Education: Associate Degree Difficulty w/ Childcare or Family Care: No Living arrangements: with family Occupation/Education: occupation Additional occupation/education comments: [employer] Gender identity (if verbalized by the patient): Female Sexual Orientation (if Verbalized by the Patient): Bisexual Spiritual care concerns: No Exam Narrative: GENERAL: Tearful, awake answering all questions. Morbidly obese HEAD: [Normocephalic, atraumatic.] EYES: Pupils are equal reactive, extraocular movements are full, conjunctival injection from tearing, leftward beating nystagmus. ENT: Nares clear, no rhinorrhea or epistaxis. Mucous membranes moist. NECK: Supple. CHEST: [Clear to auscultation. No respiratory distress.] HEART: [Regular rate and rhythm]. No murmur heard. [Normal peripheral pulses.] ABDOMEN: [Soft, nondistended], [nontender], [No rigidity or guarding] EXTREMITIES: Normal range of motion. [No edema.] SKIN: Warm, dry, no rash. NEURO: [No focal deficits]. Alert and oriented [x3.] No facial asymmetries, dysphagia, aphasia, slurring speech, sensory or motor deficits, ataxia. No visual deficits. NIH is 0 PSYCH: Tearful affect and Course Vital Signs Vital signs: Vital Signs Pulse Rate 107 H 05/01/25 12:26 Respiratory Rate 18 05/01/25 12:26 Blood Pressure 148/82 H 05/01/25 12:26 Pulse Oximetry 99 05/01/25 12:26 Oxygen Delivery Room Air 05/01/25 12:26 Temperature 36.5 C 05/01/25 12:42 Pulse Rate 98 05/01/25 12:42 Respiratory Rate 15 05/01/25 12:42 Blood Pressure 124/76 05/01/25 12:42 Pulse Oximetry 100 05/01/25 12:42 Oxygen Delivery Room Air 05/01/25 12:26 MDM - Dizziness MDM Narrative Medical decision making narrative: 39-year-old female with a past medical history including positional vertigo, hypertension, diabetes insulin-dependent, pseudoseizures, functional neuro disorder. Patient presents with vertiginous symptoms for 2 days associated with a headache and stuttering speech worse with movement and looking towards the right side. Feels very similar to her previous vertiginous episodes. Has not tried anything besides some positional head maneuvering at the direction of her primary care provider which did not help. Patient denies any trauma, injury. She states she missed her evening dose of insulin but otherwise has been in her normal state of health. Last time this occurred was in February with a benign workup and she was discharged home after improvement with Valium and histamine joseph agents. Patient has an unremarkable examination but she is very tearful in her affect and concerned about her vertigo. She has leftward beating nystagmus but no ataxia, motor deficits, facial deficits, dysarthria or other signs or symptoms of a stroke/TIA so her symptoms are most likely benign positional paroxysmal vertigo consistent with her previous presentations but will evaluate for the potential causes such electrolyte derangements, intracranial process such as a bleed or mass, anemia, thyroid issue, hyperglycemia, dehydration. She was given to the use of fluids, 2.5 mg of IV Valium and 25 mg of p.o. meclizine and re-evaluated. Cardiac workup ordered including EKG, troponin, chest x-ray, CBC, CMP. CT of the head was ordered. Patient re-evaluated after meclizine and Valium and felt improved. She was ambulatory on assessment without any ataxia and her nystagmus resolved. We discussed this at length with the patient at bedside and she informed me that she has a previous diagnosis of Meniere's syndrome with similar presentation previously requiring diuretic therapy. ENT examination conducted shows no tympanic membrane bulging, erythema or signs of infection. Given her improvement with symptom controlling medications here I believe she can be safely discharged with outpatient follow-up with ENT and prescription for meclizine as well as strict return precautions. Patient was amenable to this plan and will call for a family member to pick her up given that she did get benzodiazepines. Her workup otherwise is unremarkable without any leukocytosis or anemia worse than baseline. Normal platelet count. Coagulation panel normal. Electrolytes unremarkable. BUN and creatinine around baseline. Hyperglycemic at 255 but she received fluid hydration and no signs of anion gap acidosis or diabetic emergency. Patient has insulin at home. Normal LFTs. Negative troponin. Normal TSH. Chest x-ray shows no acute cardiopulmonary disease. CT of the head shows no acute intracranial abnormalities. Patient provided ENT follow-up, strict return precautions and meclizine prescription upon discharge. Patient given return precautions including worsening vertigo, inability to tolerate oral intake, nausea, vomiting, unilateral weakness, facial asymmetry, other stroke symptoms and she should return to the emergency department for evaluation otherwise follow-up outpatient with her primary doctor and ENT. Patient felt comfortable with the plan going home at this time. Medical Records Attestation: I reviewed the patient's medical records. Lab Data Attestation: I reviewed the patient's lab results. 05/01/25 12:35 05/01/25 12:35 Labs: Lab Results 05/01/25 05/01/25 Range/Units 12:28 12:35 WBC 9.3 (4.5-10.0) K/mm3 RBC 4.44 (4.2-5.4) M/mm3 Hgb 9.4 L (12.0-15.0) g/dL Hct 33.7 L (37.0-47.0) % MCV 75.9 L (80-100) fl MCH 21.2 L (26-34) pg MCHC 27.9 L (32-36) g/dl RDW 18.6 H (11.5-14.5) % Plt Count 326 (150-375) k/mm3 MPV 8.5 (7.4-10.4) fl Immature Gran % (Auto) 0.4 (0-0.5) % Neut % (Auto) 73.6 H (45.5-73.1) % Lymph % (Auto) 20.3 (18.3-44.2) % [place]wood % (Auto) 4.0 (2.6-8.5) % Eos % (Auto) 1.3 (0-4.4) % Baso % (Auto) 0.4 (0.2-1.2) % Lymph # (Auto) 1.89 (0.9-3.2) K/mm3 Haywood # (Auto) 0.4 (0.1-0.6) K/mm3 Eos # (Auto) 0.1 (0-0.3) K/mm3 Baso # (Auto) 0.0 (0.0-0.1) K/mm3 Abs Immat Gran (auto) 0.04 H (0.00-0.031) K/mm3 Absolute Neuts (auto) 6.9 H (1.3-6.7) K/mm3 Absolute Nucleated RBC 0.000 (0.0-0.012) K/mm3 Band Neutrophils % Not Reportable Nucleated RBC % 0.0 (0.0-0.2) % Platelet Estimate Adequate (Adequate) Hypochromasia 1+ Microcytosis 1+ (NORMAL) Schistocytes None seen PT 13.0 (11.1-14.7) Seconds INR 1.0 APTT 24.7 (22.3-36.8) Seconds Sodium 138 (137-145) mmol/L Potassium 3.7 (3.4-5.0) mmol/L Chloride 101 (98-107) mmol/L Carbon Dioxide 25 (22-30) mmol/L Anion Gap 12 (4-12) mmol/L BUN 27 H D (7-17) mg/dL Creatinine 1.09 H (0.7-1.0) mg/dL Estim Creat Clear Calc 70 ml/min Estimated GFR 55 L (59 - ) Glucose 274 H (65-110) mg/dL POC Capillary Glucose 255 H (65-105) mg/dl Calcium 9.6 (8.4-10.2) mg/dL Total Bilirubin 0.5 (0.2-1.3) mg/dL AST 26 (14-36) U/L ALT 24 (6-35) U/L Alkaline Phosphatase 84 (38-126) U/L Troponin I < 0.012 (0.000-0.034) ng/mL Total Protein 8.5 H (6.3-8.2) g/dL Albumin 4.7 (3.5-5.1) g/dL TSH (Reflex) 1.620 (0.465-4.68) uIU/mL Imaging Data Attestation: I personally reviewed and interpreted this imaging study as follows: My impression: Impressions Head CT 05/01/25 13:31 Impression: No significant abnormality seen. Chest X-Ray 05/01/25 13:43 IMPRESSION: 1: NO ACUTE CARDIOPULMONARY DISEASE. Discharge Plan Discharge Clinical Impression: Benign paroxysmal positional vertigo Patient Disposition: Home Condition: Stable Instructions: Antibiotic Form, Vertigo (ED) Additional Instructions: Your laboratory studies and imaging studies are all very reassuring, no signs of any emergency found today. Your symptoms are consistent with benign vertigo which is likely a problem within the inner ears causing disequilibrium symptoms which has happened 2 previously. You need to see an jewel bearing turner for definitive care and follow-up. We will send you home with meclizine which can help these symptoms. Take this medication as needed up to 3 times a day. Return if he started noticing unilateral weakness, facial droop, profound nausea and not able to tolerate oral intake, frequent falling and not able to walk or any other emergent concerns. Otherwise follow-up with regular doctor and ENT. Patient Language: Cook Islander Prescriptions: New meclizine 25 mg tablet 25 mg PO TID PRN (Reason: dizziness) 10 Days Qty: 30 0RF No Action aspirin 81 mg tablet,delayed release (DR/EC) 81 mg PO DAILY bupropion HCl 150 mg tablet extended release 24 hr 150 mg PO DAILY metformin 500 mg Tablet Extended Release 24 Hr 500 mg PO DAILY Patient Comments: States she usually takes only once a day insulin degludec [Tresiba FlexTouch U-200] 200 unit/mL (3 mL) insulin pen 40 unit SUBCUT HS albuterol sulfate [ProAir HFA] 90 mcg/actuation HFA aerosol inhaler 1 inh INHALATION PRN PRN (Reason: Shortness Of Breath) dapagliflozin propanediol [Farxiga] 10 mg Tablet 10 mg PO DAILY rosuvastatin [Crestor] 10 mg Tablet 10 mg PO DAILY Patient Comments: Pt states she takes this at night fluconazole 150 mg tablet 150 mg PO PRN PRN (Reason: yeast infections) amlodipine 5 mg tablet 5 mg PO BID valsartan-hydrochlorothiazide 320-25 mg tablet 1 tablet PO DAILY meclizine 25 mg tablet 25 mg PO BID PRN (Reason: dizziness) Qty: 30 0RF omeprazole 20 mg capsule,delayed release(DR/EC) See Rx Instructions .ROUTE .COMPLEX Qty: 30 12RF Dose Instruction: Take 1 capsule by mouth once daily Rx Instructions: Take 1 capsule by mouth once daily Follow-up/Referrals: Windy Massey MD [Physician] - 1 Week ([facility]) Andrei Clark MD [Primary Care Provider] - Pa Mehta MD [Physician] - 1 Week ([facility]) Time of Disposition: 15:14
[2025-05-01 12:41] LABS: Basophils Percent Auto 0.4 % (0.2-1.2); Eosinophils Absolute Auto 0.1 K/mm3 (0-0.3); Eosinophils Percent Auto 1.3 % (0-4.4); Hematocrit 33.7 % (37.0-47.0); Hemoglobin 9.4 g/dL (12.0-15.0); Immature Granulocyte Absolute 0.04 K/mm3 (0.00-0.031); Immature Granulocyte Percent A 0.4 % (0-0.5); Lymphocytes Absolute Auto 1.89 K/mm3 (0.9-3.2); Lymphocytes Percent Auto 20.3 % (18.3-44.2); Mean Corpuscular HGB Conc 27.9 g/dl (32-36); Mean Corpuscular Hemoglobin 21.2 pg (26-34); Mean Corpuscular Volume 75.9 fl (80-100); Mean Platelet Volume 8.5 fl (7.4-10.4); Monocytes Absolute Auto 0.4 K/mm3 (0.1-0.6); Neutrophils Absolute Auto 6.9 K/mm3 (1.3-6.7); Neutrophils Percent Auto 73.6 % (45.5-73.1); Platelet Count Result 326 k/mm3 (150-375); Red Blood Count 4.44 M/mm3 (4.2-5.4); Red Cell Distribution Width 18.6 % (11.5-14.5); White Blood Count 9.3 K/mm3 (4.5-10.0)
[2025-05-01 12:42] VITALS: BP 124/76; PULSE 98; RESP 15; TEMP 36.5; O2SAT 100
[2025-05-01] MEDS: LACTATED RINGERS 1,000 ML 999 ML IV CONT ×2 (12:48→12:49)
[2025-05-01 12:49] LABS: Alanine Aminotransferase 24 U/L (6-35); Albumin Level 4.7 g/dL (3.5-5.1); Alkaline Phosphatase 84 U/L (38-126); Anion Gap 12 mmol/L (4-12); Aspartate Amino Transferase 26 U/L (14-36); Bilirubin,Total 0.5 mg/dL (0.2-1.3); Blood Urea Nitrogen 27 mg/dL (7-17); Calcium 9.6 mg/dL (8.4-10.2); Carbon Dioxide 25 mmol/L (22-30); Chloride 101 mmol/L (98-107); Estimated CRCL calculation 70 ml/min; Estimated Glomerular Filt Rate 55; Glucose 274 mg/dL (65-110); Potassium 3.7 mmol/L (3.4-5.0); Sodium 138 mmol/L (137-145); Total Protein 8.5 g/dL (6.3-8.2)
[2025-05-01] MEDS: MECLIZINE HCL 25 MG TABLET PO (12:49)
[2025-05-01] MEDS: diazePAM INJ (*CRX) 10 MG/2 ML SYRINGE 2.5 MG IV PUSH (12:49)
--- OUTSIDE RECORDS SUMMARY | 2025-05-01 12:52 | XMS_ITS | Encounter Summary ---
Author Organization [facility] Address [address] [place] [address] Phone Care Team Providers Care Foil Cutter Name Role Phone Unknown, Notinfile Primary Care Provider Unavail able Dorota Martinez MD Primary Care Provider [phone] Andrei Clark MD Primary Care Provider [phone] Kandace Freedman OT Unavailable [phone] Christina Brunson MD Unavailable [phone] Encounter Details Date Type Department Care Team (Late st Contact Info) Description 02/07/2019 Ophth Exam [facility] Ophthalmology [address] [place] [address] 1[address] [place] [id number] Diana Leon MD PhD [address] [place] [address] Social History Tobacco Use Types Packs/Day Years [...] on file 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 Gender Identity Not on file Sexual [...] no RT/RD/necrosis no RT/RD/necro sis Care Teams Foil Cutter Relationship Specialty Start Date End Date Unknown, Notinfile PCP - General 02/04/19 02/10/19 Dorota Martinez MD [address] [place] [id number] PCP - General 02/11/19 12/10/20 Andrei Clark MD [address] [address] PCP - General Internal Medicine 12/11/20 [place] [address] [place] [id number] Occupational Therapist Occupational Therapy 03/15/21 Christina Brunson MD [address] [place] [address] Obstetrics and Gynecology 08/02/22 documented as of this encounter
--- OUTSIDE RECORDS SUMMARY | 2025-05-01 12:52 | XMS_ITS | Encounter Summary ---
Author Organization [facility] Address [address] [place] [address] Care Team Providers Care Valet Parker Name Role Phone Andrei Clark MD Primary Care Provider [phone] Encounter Details Date Type Department Care Team (Late Contact Info) Description 04/25/2025 [facility] [address] [place] [address] Betty Power APRN-CNP [address] [place] [address] Social History Tobacco Use Types Packs/Day Years Used Date Smoking Tobacco: Former Cigarettes Q uit: 06/30/2020 Smokeless Tobacco: Never Alcohol Use Standard Drinks/Week Comments No 0 (1 standard drink = 0.6 oz pur e alcohol) PHQ-2 Answer Date Recorded Patient Health Questionnaire-2 Score 0 04/29/2025 Comments No Sex and Gender Information Value Date Recorded Sex Assigned at Female 04/11/2025 11:15 AM CDT 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 Fructosamine resulted at 357, which converts to HgbA1c of 7.68. Notified Elizabeth in Weight Loss Management and patient ok to proceed with surgery without further intervention or evaluation. * Maribell Driscoll RN - 04/25/2025 10:54 AM CDT [facility] Labs Faxed to PCP via Epic per Instructions documented in this encounter Plan of Treatment Upcoming Encounters Date Type Department Care Team (Latest Contact Info) Description 05/08/2025 1:00 PM CDT Appointment Infusion Services at [address] [address] 05/15/2025 11:00 AM CDT Appointment Infusion Services at [address] [address] 05/21/2025 11:00 AM CDT Appointment Infusion Services at [address] [address] 05/26/2025 8:50 AM CDT Hospital Encounter [facility] - Perioperative Surgery [address] [place] [address] [place] [address] [place] [phone] Surgery General 05/26/2025 8:50 AM CDT - 05/26/2025 11:29 AM CDT Surgery [facility] - Perioperative Surgery [address] [place] [address] [place] [address] [place] [phone] LAPAROSCOPIC GASTRIC BYPASS POSS OPEN 05/26/2025 11:00 AM CDT Procedure visit [facility] Weight Management Services [address] [place] [address], [facility] [address] [place] [address] 06/02/2025 9:40 AM CDT Office Visit [facility] [id number] [place] [address], [address] [place] [address] Diana Cochran APRN-POLICY CANCELLATION CLERK [address] [place] [phone] 06/26/2025 1:30 PM CDT Office Visit [facility] [address] [place] [address], [address] [place] [address] Diana Cochran INCLUSION INTERNSHIP-POLICY CANCELLATION CLERK [address] [place] [phone] 11/26/2025 12:30 PM NOODLE PRESS OPERATOR Office Visit [facility] [address] [place] [address], [address] [place] [address] Diana Cochran INCLUSION INTERNSHIP-POLICY CANCELLATION CLERK [address] [place] [phone] 05/26/2026 1:00 PM CDT Office Visit [facility] Management [facility] [address] [place] [address], [facility] [address] [place] [address] Diana Cochran INCLUSION INTERNSHIP-POLICY CANCELLATION CLERK [address] [place] [phone] Scheduled Procedures Name Priority Associated Diagnoses Date/Ti me LAPAROSCOPIC GASTRIC BYPASS 05/26/2025 8:50 AM CDT documented as of this encounter Visit Diagnoses Not on filedocumented in this encounter Care Teams Valet Parker Relationship Specialty Start Date End Date Andrei Clark MD [address] [facility] [place] [address] PCP - General Internal Medicine 04/24/25 documented as of this encounter
--- OUTSIDE RECORDS SUMMARY | 2025-05-01 12:52 | XMS_ITS | Clinical Summary ---
Author Organization [facility] Address [address] [place] [address] Care Team Providers Care Applique Cutter Name Role Phone Andrei Clark MD Primary Care Provider [phone] Source Comments [facility],non-owned Affiliates and Associated Physician Practices is amultiple site organization consisting of ambulatory clinics and hospital sitesin [place], [place], [place] and [place]. This disclosure is being madepursuant to the Care Everywhere program and may not contain all information available regarding this patient. Last updated 18.[facility] Allergies Active Allergy Reactions Criticality Noted Date Comments Prochlorperazine 10/19/2013 Ondansetron 10/19/2013 Promethazine Other Low 02/04/2019 Metoclopramide 10/19/2013 Medications * Be aware that medications may not be up to date on this document. Alwaysverify current medications with the patient. metFORMIN (GLUCOPHAGE) 500 MG tablet Take 3 (three) tablets by mouth every evening Active TRESIBA FLEXTOUCH 200 UNIT/ML pen 50 (fifty) Units at bedtime 0 Active rosuvastatin (CRESTOR) 10 MG tablet Take 1 (one) tablet by mouth once daily 0 Active aspirin EC (ECOTRIN) 81 MG tablet 1 Active buPROPion XL 24hr (WELLBUTRIN-XL ) 150 MG tablet TAKE 1 TABLET BY MOUTH ONCE DAILY IN THE MORNING 1 Active FARXIGA 10 MG tablet TAKE 1 TABLET BY MOUTH ONCE DAILY IN THE MORNING FOR 90 DAYS 1 Active fluticasone propionate (FLONASE) 50 MCG/ACT nasal spray fluticasone propionate 50 mcg/actuation nasal spray,suspensio n Active ONETOUCH ULTRA test strip USE A TEST STRIP TO TEST BLOOD SUGAR 3 TO 4 TIMES DAILY BEFORE MEALS 1 Active LORazepam (ATIVAN) 1 MG tablet 0 Active ProAir HFA 108 (90 Base) MCG/ACT inhaler Inhale 2 (two) puffs by mouth every 6 hours as needed Active omeprazole (PriLOSEC) 20 MG capsule Take 1 (one) capsule by mouth daily before breakfast 4 Active valACYclovir (Valtrex) 500 MG tablet TAKE 1 TABLET BY MOUTH TWICE DAILY FOR 7 DAYS (NEEDS APPT FOR FURTHER REFILLS) Active valsartan-hydr oCHLOROthiazid e (Diovan HCT) 320-25 MG tablet 1 tablet Orally Once a day for 30 days Active Continuous Blood Gluc Sensor (Score The Board AYDEE 14 DAY SENSOR) [facility] 1 04/29/20 25 Discontin ued(List Clean-Up) TRULICITY 3 MG/0.5ML injection INJECT 1 SUB Q ONCE A WEEK IN THE MORNING 1 04/24/20 25 Discontin ued(List Clean-Up) ergocalciferol (DRISDOL) 1.25 MG (99193 UT) capsule Vitamin D2 1,250 mcg (50,000 unit) capsule 04/24/20 25 Discontin ued(List Clean-Up) fenofibrate (LOFIBRA) 160 MG tablet TAKE 1 TABLET BY MOUTH ONCE DAILY AT BEDTIME FOR 30 DAYS 1 04/24/20 25 Discontin ued(List Clean-Up) glimepiride (AMARYL) 1 MG tablet TAKE 2 TABLETS BY MOUTH TWICE DAILY BEFORE MEAL(S) 1 04/24/20 25 Discontin ued(List Clean-Up) VASCEPA 0.5 g CAPS 1 04/24/20 25 Discontin ued(List Clean-Up) HYDROcodone-ac etaminophen (NORCO) 5-325 MG tablet hydrocodone 5 mg-acetaminophe n 325 mg tablet 04/24/20 25 Discontin ued(List Clean-Up) losartan-hydro CHLOROthiazide (HYZAAR) 100-25 MG tablet Take 1 tablet by mouth once daily 1 04/24/20 25 Discontin ued(List Clean-Up) sertraline (ZOLOFT) 100 MG tablet sertraline 100 mg tablet TAKE 1 TABLET BY MOUTH ONCE DAILY FOR 30 DAYS 04/24/20 25 Discontin ued(List Clean-Up) traZODone (DESYREL) 100 MG tablet trazodone 100 mg tablet TAKE 1 TABLET BY MOUTH EVERY DAY AT BEDTIME NEEDED FOR 30 DAYS 04/24/20 25 Discontin ued(List Clean-Up) calcitriol (ROCALTROL) 0.25 MCG capsule calcitriol 0.25 mcg capsule 04/24/20 25 Discontin ued(List Clean-Up) clorazepate (TRANXENE) 7.5 MG tablet Take 7.5 mg by mouth 3 times daily 1 04/24/20 25 Discontin ued(List Clean-Up) naltrexone (REVIA) 50 MG tablet every 24 hours 04/24/20 25 Discontin ued(List Clean-Up) fluconazole (Diflucan) 150 MG tablet TAKE 1 TABLET BY MOUTH EVERY 72 HOURS 04/24/20 25 Discontin ued(List Clean-Up) losartan (Cozaar) 100 MG tablet Take 1 (one) tablet by mouth once daily 04/24/20 25 Discontin ued(List Clean-Up) Active Problems Problem Noted Date Diagnosed Date Iron deficiency anemia 04/29/2025 Tension headache 07/02/2020 Insulin dependent diabetes mellitus [...] Encounters Date Type Department Care Team Description 04/29/2025 2:40 PM CDT Office Visit [facility] [address] [place] [address] [address] [place] [address] Betty Power APRN-CNP Dhillon, Amrjit K, APRN-RAND Iron deficiency anemia, unspecified iron deficiency anemia type (Primary Dx); Anemia, unspecified type 04/25/2025 Results Follow-Up [facility] [address] [place] [address] Betty Power APRN-CNP 04/24/2025 6:51 AM CDT - 04/24/2025 11:59 PM CDT Hospital Encounter [facility] [address] [place], [place] [id number] Chin Mcleod MD Discharge Disposition: Home or Self Care 04/24/2025 Orders Only [facility] [address] [place], [place] [id number] Betty Power APRN-CNP Anemia, unspecified type 04/24/2025 Travel 04/22/2025 2:15 PM CDT Office Visit [facility] [address], [address] [place], [place] [id number] Diana Cochran, BROADCAST CORRESPONDENT-ASSOCIATE [employer] Controlled type 2 diabetes mellitus without complication, without long-term current use of insulin (HCC) (Primary Dx); Class 2 obesity with body mass index (BMI) of 37.0 to 37.9 in adult, unspecified obesity type, unspecified whether serious comorbidity present; Benign hypertension 04/22/2025 12:00 PM CDT Clinical Support [facility] [email or web address] [place] [address] Morbid obesity (HCC) 04/11/2025 Travel 02/06/2025 Telephone [facility] 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 Gender Identity Not on file Sexual Orientation Not on file Last Filed Vital Signs Vital Sign Reading Time Taken Comments Blood Pressure 107/93 04/29/2025 2:22 PM CDT Pulse 128 04/29/2025 2:22 PM CDT Temperature 36.3 C (97.3 F) 04/29/2025 2:22 PM CDT Respiratory Rate 18 04/29/2025 2:22 PM CDT Oxygen Saturation 98% 04/29/2025 2:22 PM CDT Inhaled Oxygen Concentration - - Weight 98.7 kg (217 lb 9.6 oz) 04/29/2025 2:22 P M CDT Height 162.6 cm (5' 4) 04/29/2025 2:22 PM CDT Body Mass Index 37.35 04/29/2025 2:22 PM CDT Plan of Treatment Upcoming Encounters Date Type Department Care Team (Latest Contact Info) Description 05/08/2025 1:00 PM CDT Appointment Infusion Services at [address] [place] [address] 05/15/2025 11:00 AM CDT Appointment Infusion Services at [address] [place] [address] 05/21/2025 11:00 AM CDT Appointment Infusion Services at [address] [address] 05/26/2025 8:50 AM CDT Hospital Encounter Critical access hospital - Perioperative Surgery [address] [place] [address] [place] [address] [facility] [address] [place] [phone] Surgery General 05/26/2025 8:50 AM CDT - 05/26/2025 11:29 AM CDT Surgery Critical access hospital - Perioperative Surgery [address] [place] [address] [place] [address] [place] [phone] LAPAROSCOPIC GASTRIC BYPASS POSS OPEN 05/26/2025 11:00 AM CDT Procedure visit [facility] [address] [place] [address], [address] [place] [address] 06/02/2025 9:40 AM CDT Office Visit [facility] [address] [place] [address], [address] [place] [address] Diana Cochran, BROADCAST CORRESPONDENT-ASSOCIATE [employer] [address] [facility] [address] [place] [phone] 06/26/2025 1:30 PM CDT Office Visit [facility] [address] [place] [address] Diana Cochran APRN-ASSOCIATE [employer] [address] [place] [phone] 11/26/2025 12:30 PM HARDWARE INSTALLATION COORDINATOR Office Visit [facility] [id number] [place] [address], [address] [place] [address] Diana Cochran APRN-ASSOCIATE [employer] [address] [place] [address] 05/26/2026 1:00 PM CDT Office Visit [facility] [id number] [place] [address], [address] [place] [address] Diana Cochran APRN-ASSOCIATE [employer] [address] [place] [phone] Scheduled Procedures Name Priority Associated Diagnoses Date/Ti me LAPAROSCOPIC GASTRIC BYPASS 05/26/2025 8:50 AM CDT Health Maintenance Due Date Last Done Comments MAMMOGRAM 1983 HIV SCREENING 1998 HEPATITIS C SCREENING 05/24/2001 DTAP/TDAP/TD VACCINES (1 - Tdap) 2002 HEPATITIS B VACCINE (1 of 3 - 19+ 3-dose series) 2002 PNEUMOCOCCAL VACCINE (1 of 2 - PCV) 2002 PAP SMEAR 2004 PAP with HPV 2013 DIABETES-FOOT EXAM WITH MONOFILAMENT 07/02/2020 DIABETES-HGB A1C 07/02/2020 08/23/2019 DIABETES RETINOPATHY SCREENING 02/15/2021 02/15/2019 COVID-19 VACCINE (3 - season) 2024 09/22/2021, 09/01/2021 DIABETES - URINE PROTEIN SCREENING 11/20/2024 INFLUENZA VACCINE (Season Ended) 2025 DIABETES-SERUM CREATININE 04/24/20262024, 08/11/2021, 11/28/2020, Additional history exists ZOSTER VACCINE (1 of 2) 2033 DEPRESSION SCREENING Completed 04/29/2025 HIB VACCINE Aged Out No longer eligi [...] Procedure Name Priority Date/Time Associated Diagnosis Comments EKG 12-LEAD Routine 04/24/2025 7:57 AM CDT Pre-op evaluation RETIC COUNT Routine 04/24/2025 7:25 AM CDT Pre-op evaluation IRON + TRANSFERRIN PANEL Routine 04/24/2025 7:25 AM CDT Pre-op evaluation FERRITIN Routine 04/24/2025 7:25 AM CDT Pre-op evaluation VITAMIN B12 FOLATE PANEL Routine 04/24/2025 7:25 AM CDT Pre-op evaluation FRUCTOSAMINE STAT 04/24/2025 7:25 AM CDT Pre-op evaluation VITAMIN B12 Routine 04/24/2025 7:25 AM CDT Pre-op evaluation VITAMIN B1 Routine 04/24/2025 7:25 AM CDT Pre-op evaluation COMPREHENSIVE METABOLIC PANEL Routine 04/24/2025 7:25 AM CDT Pre-op evaluation CBC W AUTO DIFFERENTIAL Routine 04/24/2025 7:25 AM CDT Pre-op evaluation from Last 3 Months Results * EKG 12-Lead (04/24/2025 7:57 AM CDT) Ventricular Rate 99 BPM [facility] Atrial Rate 99 BPM [facility] P-R Interval 162 ms [facility] QRS Duration ms 78 ms [facility] Q-T Interval ms 368 ms [facility] QTC Calculation (Bezet) 472 ms [facility] MUSE Calculated P Volga 44 degrees [facility] MUSE Calculated R Vol[place] 26 degrees [facility] MUSE Calculated T Volga 74 degrees [facility] Interpretation EKG Normal sinus rhythm Nonspecific T wave abnormality No previous ECGs available Confirmed by PALLAVI RUEDA, KARIN SEXTON ([id number]) on 04/24/2025 11:43:46 AM [facility] MUSE 04/24/2025 7:57 AM CDT 04/24/2025 11:43 AM CDT Zoë Waldron DO ECG ORDERABLES Edited Result - Final Performing Organization Address [facility] de Phone Number [facility] MUSE * VITAMIN B1 (04/24/2025 7:25 AM CDT) [facility] Vitamin B1 Whole Blood 110.0 66.5 - 200.0 nmol/L 04/30/2025 7:09 AM CDT [facility] ([facility]) Blood BLOOD SPECIMEN / Unknown Venipuncture / Unknown 04/24/2025 7:25 AM CDT 04/24/2025 7:34 AM CDT Narrative [facility] ([facility]) - 04/30/2025 7:09 AM CDT Test(s) 928975-Idt. B1, Whole Blood was developed and its performance characteristics determined by [facility]. It has not been cleared or approved by the Food and Drug Administration. Performed at: 01 - [facility] [id number] Inspector Casing: Ashley Chavez MD, Phone: [phone] Chin Mcleod MD LAB - CHEMISTRY ORDERABLES F inal Result Performing Organization Address City/[facility]/ZIP Co de Phone Number [facility] ([facility]) [address] [place] [address] * (ABNORMAL) FRUCTOSAMINE (04/24/2025 7:25 AM CDT) Pathologist [facility] Fructosamine 357(H) 205 - 285 umol/L 04/26/2025 12:29 AM CDT [facility] ([facility]) Comment: INTERPRETIVE INFORMATION: Fructosamine Variations in levels of serum proteins (albumin and immunoglobulins) may affect fructosamine results. Performed By: [place] [address] Assistant Housekeeping Manager: Yony Echavarria MD, PhD CLIA Number: [id number] Blood BLOOD SPECIMEN / Unknown Venipuncture / Unknown 04/24/2025 7:25 AM CDT 04/24/2025 7:34 AM CDT [facility] LAB - CHEMISTRY ORDERABLE S Final Result Performing Organization Address [facility] de Phone Number [facility]) [address] [place] [address] * (ABNORMAL) RETIC COUNT (04/24/2025 7:25 AM CDT) [facility] Reticulocyte Percent 2.67(H) 0.50 - 2.40 % 04/24/2025 7:50 AM CDT [facility] Reticulocyte Absolute 0.1060 0.0200 - 0.1100 x10E6/uL 04/24/2025 7:50 AM CDT [facility] Ret-HE 20.7(L) 29.0 - 37.9 pg 04/24/2025 7:50 AM CDT [facility] Immature Reticulocyte Fraction 28.8(H) 1.8 - 15.2 % 04/24/2025 7:50 AM CDT [facility] Blood BLOOD SPECIMEN / Unknown Venipuncture / Unknown 04/24/2025 7:25 AM CDT 04/24/2025 7:40 AM CDT [facility] LAB - HEMATOLOGY ORDERABL ES Final Result Performing Organization Address [facility]/ZIP Co de Phone Number [facility] [address] [place], [place] [phone] * (ABNORMAL) CBC W AUTO DIFFERENTIAL (04/24/2025 7:25 AM CDT) [facility] WBC 7.8 4.0 - 10.7 x10E9/L 04/24/2025 7:40 AM CDT [facility] RBC Count 3.94 3.90 - 5.20 x10E12/L 04/24/2025 7:40 AM CDT [facility] Hemoglobin 8.6(L) 11.9 - 15.8 g/dL 04/24/2025 7:40 AM CDT [facility] Hematocrit 29.9(L) 34.8 - 46.1 % 04/24/2025 7:40 AM CDT [facility] MCV 75.9(L) 80.0 - 98.0 fL 04/24/2025 7:40 AM CDT [facility] MCH 21.8(L) 26.7 - 33.6 pg 04/24/2025 7:40 AM CDT [facility] MCHC 28.8(L) 31.7 - 36.3 g/dL 04/24/2025 7:40 AM CDT [facility] RDW-CV 18.1(H) 11.3 - 14.8 % 04/24/2025 7:40 AM CDT [facility] Platelet Count 292 150 - 420 x10E9/L 04/24/2025 7:40 AM CDT [facility] MPV 9.0 7.8 - 11.4 fL 04/24/2025 7:40 AM CDT [facility] Neutrophil % 65.1 41.0 - 74.0 % 04/24/2025 7:40 AM CDT [facility] Lymphocyte % 24.1 17.0 - 47.0 % 04/24/2025 7:40 AM CDT [facility] Monocyte % 7.1 3.0 - 11.0 % 04/24/2025 7:40 AM CDT [facility] Eosinophil % 2.3 0.0 - 7.0 % 04/24/2025 7:40 AM CDT [facility] Basophil % 0.9 0.0 - 1.6 % 04/24/2025 7:40 AM CDT [facility] Immature Granulocytes % 0.5 0.0 - 1.0 % 04/24/2025 7:40 AM CDT [facility] Neutrophil Absolute 5.07 1.60 - 7.50 x10E9/L 04/24/2025 7:40 AM CDT [facility] Lymphocyte Absolute 1.88 1.00 - 4.40 x10E9/L 04/24/2025 7:40 AM CDT [facility] Monocyte Absolute 0.55 0.15 - 1.00 x10E9/L 04/24/2025 7:40 AM CDT [facility] Eosinophil Absolute 0.18 0.00 - 0.60 x10E9/L 04/24/2025 7:40 AM CDT [facility] Basophil Absolute 0.07 0.00 - 0.13 x10E9/L 04/24/2025 7:40 AM CDT [facility] Blood BLOOD SPECIMEN / Unknown Venipuncture / Unknown 04/24/2025 7:25 AM CDT 04/24/2025 7:34 AM CDT Betty Power BROADCAST CORRESPONDENT-ASSOCIATE [employer] LAB - HEMATOLOGY ORDERABL ES Final Result [facility] [address] [place] [address] * (ABNORMAL) COMPREHENSIVE METABOLIC PANEL (04/24/2025 7:25 AM CDT) Glucose 223(H) 70 - 99 mg/dL 04/24/2025 7:55 AM CDT [facility] Sodium 139 136 - 145 mmol/L 04/24/2025 7:55 AM CDT [facility] Potassium 4.0 3.5 - 5.1 mmol/L 04/24/2025 7:55 AM CDT [facility] Chloride 104 98 - 107 mmol/L 04/24/2025 7:55 AM CDT [facility] CO2 24 22 - 29 mmol/L 04/24/2025 7:55 AM CDT [facility] Calcium 9.2 8.4 - 10.4 mg/dL 04/24/2025 7:55 AM CDT [facility] Anion Gap 11 6 - 16 mmol/L 04/24/2025 7:55 AM CDT [facility] BUN 27(H) 5.3 - 18.7 mg/dL 04/24/2025 7:55 AM CDT [facility] Creatinine 1.25(H) 0.57 - 1.11 mg/dL 04/24/2025 7:55 AM CDT [facility] Alkaline Phosphatase 79 40 - 150 U/L 04/24/2025 7:55 AM CDT [facility] ALT 20 6 - 57 U/L 04/24/2025 7:55 AM CDT [facility] AST 21 10 - 48 U/L 04/24/2025 7:55 AM CDT [facility] Protein Total 7.7 6.4 - 8.3 gm/dL 04/24/2025 7:55 AM CDT [facility] Albumin 3.8 3.1 - 4.5 gm/dL 04/24/2025 7:55 AM CDT [facility] Bilirubin Total 0.4 0.2 - 1.2 mg/dL 04/24/2025 7:55 AM CDT [facility] eGFR by CKD-EPI 56(L) >=90 mL/min/1.7 3 m2 04/24/2025 7:55 AM CDT [facility] Blood BLOOD SPECIMEN / Unknown Venipuncture / Unknown 04/24/2025 7:25 AM CDT 04/24/2025 7:34 AM CDT Betty Power APRN-RAND LAB - CHEMISTRY ORDERABLE S Final Result Performing Organization Address [facility] de Phone Number [facility] [address] [place] [address] * VITAMIN B12 (04/24/2025 7:25 AM CDT) Vitamin B12 456 213 - 816 pg/mL 04/24/2025 8:16 AM CDT [facility] Blood BLOOD SPECIMEN / Unknown Venipuncture / Unknown 04/24/2025 7:25 AM CDT 04/24/2025 7:34 AM CDT Chin Mcleod MD LAB - CHEMISTRY ORDERABLES F inal Result Performing Organization Address City/[facility] Co de Phone Number [facility] [address] [place] [address] * VITAMIN B12 FOLATE PANEL (04/24/2025 7:25 AM CDT) Pathologist [facility] Vitamin B12 476 213 - 816 pg/mL 04/24/2025 8:32 AM CDT [facility] Folate 14.2 7.0 - 31.4 ng/mL 04/24/2025 8:32 AM CDT [facility] Blood BLOOD SPECIMEN / Unknown Venipuncture / Unknown 04/24/2025 7:25 AM CDT 04/24/2025 7:40 AM CDT Betty Power [facility] LAB - CHEMISTRY ORDERABLE S Final Result Performing Organization Address [facility] de Phone Number [facility] [address] [place] [address] * (ABNORMAL) IRON + TRANSFERRIN PANEL (04/24/2025 7:25 AM CDT) Pathologist [facility] Iron 34(L) 40 - 150 ug/dL 04/24/2025 8:01 AM CDT [facility] Transferrin 345 174 - 382 mg/dL 04/24/2025 8:01 AM CDT [facility] TIBC Calculated 431 240 - 450 ug/dL 04/24/2025 8:01 AM CDT [facility] Iron Saturation % 8(L) 20 - 50 % 04/24/2025 8:01 AM CDT [facility] Blood BLOOD SPECIMEN / Unknown Venipuncture / Unknown 04/24/2025 7:25 AM CDT 04/24/2025 7:40 AM CDT [facility] LAB - CHEMISTRY ORDERABLE S Final Result Performing Organization Address City/[facility]/ZIP Co de Phone Number [facility] [address] [place] [address] * FERRITIN (04/24/2025 7:25 AM CDT) [facility] Ferritin 7 5 - 204 ng/mL 04/24/2025 8:32 AM CDT [facility] Blood BLOOD SPECIMEN / Unknown Venipuncture / Unknown 04/24/2025 7:25 AM CDT 04/24/2025 7:40 AM CDT Betty Power BROADCAST CORRESPONDENT-ASSOCIATE [employer] LAB - CHEMISTRY ORDERABLE S Final Result [facility] [address] [place] [address] from Last 3 Months Insurance ANTHEM Care Teams Applique Cutter Relationship Specialty Start Date End Date Andrei Clark MD [address] [facility] [place] [address] PCP - General Internal Medicine 04/24/25
--- OUTSIDE RECORDS SUMMARY | 2025-05-01 12:52 | XMS_ITS | Clinical Summary ---
Author Organization [facility] [address] Address [address] [place] [address] Care Team Providers Care Pulping Machine Operator Name Role Phone Andrei Clark MD Primary Care Provider [phone] Kandace Freedman OT Unavailable [phone] Christina Brunson MD Unavailable [phone] Allergies Active Allergy Reactions Criticality Noted Date [...] mellitus 03/31/2022 Atherosclerotic heart diseas e of [place] coronary artery without angina pectoris 12/31/2020 Unspecified [...] this with Dr. Pérez. Recs: 1. Call [facility] to make appt (she understands she needs to be the one to call) for CBT for FND, anxiety, depression. 2. Consider Valium after I discuss with Dr. Pérez. 3. Continue with psychiatry. 4. Start positive self talk and meditative exercises for spells. 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): She has abnormal involuntary movements including vocalizations, [...] video EEG (scheduled for next month at [facility]) to clarify whether any aspect of these [...] on file Legal Sex Female 4:48 PM ROOFING TILE SORTER Gender Identity Not on file Sexual Orientation [...] 9:21 AM CDT Height 165 cm (5' 4.96) 05/13/2024 9:21 AM CDT Body Mass Index [...] 06/01/2019 eGFR 10/17/2023 10/17/2022, 09/21/2022 Influenza Vaccine (Season Ended) 2025 HPV Vaccines Aged Out No longer eligi ble based on patient's age to complete this topic Procedures Procedure Name Priority Date/Time Associated Diagnosis Comments EGFR Routine 10/17/2022 5:08 PM ROOFING TILE SORTER Cyst of left ovary HEMOGLOBIN A1C STAT 08/23/2019 5:28 PM CDT from Last 3 Months or Most Recently Relevant to Health Maintenance Results * (ABNORMAL) eGFR (10/17/2022 5:08 PM ROOFING TILE SORTER) eGFR 82(L) 90 - 130 mL/min/1. 73 [...] last reviewed 2021. Blood 10/17/2022 5:08 PM ROOFING TILE SORTER 10/17/2022 5:58 PM ROOFING TILE SORTER us Premal Elia Jackson MD LAB BLOOD ORDERABLES Fin al Result [facility] Department [place] [address] * (ABNORMAL) Hemoglobin A1c (08/23/2019 5:28 PM CDT) Hgb A1C 11.1(H) 4.0 - 5.6 % [facility] Estimated Average Glucose 272 mg/dL [facility] Comment: The ADA recommends reporting an estimated Average Glucose (eAG) with all Hemoglobin A1c results using the equation derived from a study of 507 normal and diabetic adults. Minority populations were underrepresented and children were not included. (Diabetes Care 31:6498-4395, 2008). The eAG is not equivalent to a fasting glucose. Blood specimen (specimen) 08/23/2019 5:28 PM CDT 08/23/2019 6:04 PM CDT us Notinfile Unknown LAB BLOOD ORDERABLES Final Res ult [facility] [address] [place] [address] from Last 3 Months or Most Recently Relevant to Health Maintenance Insurance [facility] Member Subscriber Plan / Payer ( fective 2019-Present) Name:Kylee Guo Relation to Subscriber:Self Name:Kylee Guo Payer ID:[id number] (NAIC) Group ID:[id number] Type:[employer] Address: [address] [facility] [employer] [facility] [employer] Advance Directives For more information, please contact: [phone] * Full Code (Latest Code Status on File) Date Activated Date Inactivated Comments 01/25/2021 9:49 AM 01/31/2021 8:38 PM * Full Code Date Activated Date Inactivated Comments 02/11/2019 4:38 PM 02/13/2019 11:05 AM Care Teams Pulping Machine Operator Relationship Specialty Start Date End Date Andrei Clark MD PCP - General Internal Medicine 12/11/20 Kandace Freedman OT Occupational Therapist Occupational Therapy 03/15/21 Christina Brunson MD [address] [place] [address] Obstetrics and Gynecology 08/02/22
[2025-05-01 12:54] LABS: Partial Thromboplastin Time 24.7 Seconds (22.3-36.8)
--- OUTSIDE RECORDS SUMMARY | 2025-05-01 12:54 | XMS_ITS | Referral Summary ---
Author Organization [facility] [address] Address [address] [place] [address] Care Team Providers Care Coke Wheeler Name Role Phone Andrei Clark MD Primary Care Provider [phone] Kandace Freedman OT Unavailable [phone] Christina Brunson MD Unavailable [phone] Allergies Active Allergy Reactions Criticality Noted Date [...] mellitus 03/31/2022 Atherosclerotic heart diseas e of [place] coronary artery without angina pectoris 12/31/2020 Unspecified [...] this with Dr. Pérez. Recs: 1. Call [facility] to make appt (she understands she needs to be the one to call) for CBT for FND, anxiety, depression. 2. Consider Valium after I discuss with Dr. Pérez. 3. Continue with psychiatry. 4. Start positive self talk and meditative exercises for spells. 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 [...] last reviewed 2021. Blood 10/17/2022 5:08 PM BLEACH ANALYST 10/17/2022 5:58 PM BLEACH ANALYST us Premwv Elia Jackson MD LAB BLOOD ORDERABLES Fin al Result [facility] Department [place] [address] * (ABNORMAL) Hemoglobin A1c (08/23/2019 5:28 PM CDT) Hgb A1C 11.1(H) 4.0 - 5.6 % [facility] Estimated Average Glucose 272 mg/dL [facility] Comment: The ADA recommends reporting an estimated Average Glucose (eAG) with all Hemoglobin A1c results using the equation derived from a study of 507 normal and diabetic adults. Minority populations were underrepresented and children were not included. (Diabetes Care 31:3774-9281, 2008). The eAG is not equivalent to a fasting glucose. Blood specimen (specimen) 08/23/2019 5:28 PM CDT 08/23/2019 6:04 PM CDT us Notinfile Unknown LAB BLOOD ORDERABLES Final Res ult [facility] [address] [place] [address] from Last 3 Months or Most Recently Relevant to Health Maintenance Insurance [facility] Member Subscriber Plan / Payer ( fective 2019-Present) Name:Kylee Guo Relation to Subscriber:Self Name:Kylee Guo Payer ID:[id number] (NAIC) Group ID:[id number] Type:[id number] Address: [address] [facility] [employer] [facility] [employer] Advance Directives For more information, please contact: [phone] * Full Code (Latest Code Status on File) Date Activated Date Inactivated Comments 01/25/2021 9:49 AM 01/31/2021 8:38 PM * Full Code Date Activated Date Inactivated Comments 02/11/2019 4:38 PM 02/13/2019 11:05 AM Care Teams Coke Wheeler Relationship Specialty Start Date End Date Andrei Clark MD PCP - General Internal Medicine 12/11/20 Kandace Freedman OT Occupational Therapist Occupational Therapy 03/15/21 Christina Brunson MD [address] [place] [address] Obstetrics and Gynecology 08/02/22
--- OUTSIDE RECORDS SUMMARY | 2025-05-01 12:59 | XMS_ITS | Patient Health Record ---
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 DECREASE TRESIBA BY 5 U WEEKLY, 10 U IF UNDER 100. 06/18/2024 Type 2 diabetes mellitus with hyperglycemia (ICD-10 - E11.65) 06/19/2024 Type 2 diabetes mellitus with hyperglycemia (ICD-10 - E11.65) 01/01/2025 Chest wall pain (ICD-10 - R07.89) RESOLVED 03/03/2025 Type 2 diabetes mellitus without complication, without long-term current use of insulin (ICD-10 - E11.9) 03/03/2025 Hypertension, unspecified type (ICD-10 - I10) 04/29/2025 Type 2 diabetes mellitus with hyperglycemia (ICD-10 - E11.65) 04/29/2025 Vertigo (ICD-10 - R42) DEMONSTRATED AND SENT INFO ON AUDELIA EXERCISES 08/19/2024 Sialoadenitis (ICD-10 - K11.20) APPLYT HEAT 15 MIN SEVERAL TIMES PER DAY AND USE SUGAR FREE LEMON DROPS. REPORT IF NOT IMPROVING. 08/19/2024 URI with cough and congestion (ICD-10 - J06.9) 03/05/2025 Major depressive disorder, recurrent episode, severe, with psychotic behavior (ICD-10 - F33.3) 08/19/2024 Type 2 diabetes mellitus with hyperglycemia (ICD-10 - E11.65) 04/29/2025 Over weight (ICD-10 - E66.3) 03/03/2025 Folliculitis (ICD-10 - L73.9) 01/15/2025 Nutritional counseling (ICD-10 - Z71.3) 01/01/2025 Hypertension, unspecified type (ICD-10 - I10) 01/01/2025 Stage 3a chronic kidney disease (ICD-10 - N18.31) 03/03/2025 Chronic depression (ICD-10 - F32.9) 04/29/2025 Hypertension, unspecified type (ICD-10 - I10) CONTROL ADEQUATE PEDNING GASTRIC BYPASS. 08/19/2024 Type 2 diabetes mellitus without complication, without long-term current use of insulin (ICD-10 - E11.9) 08/19/2024 Nutritional counseling (ICD-10 - Z71.3) 03/03/2025 Over weight (ICD-10 - E66.3) 01/01/2025 Nutritional counseling (ICD-10 - Z71.3) 01/01/2025 Hyperlipidemia, unspecified hyperlipidemia type (ICD-10 - E78.5) 08/19/2024 Body mass index (BMI) of 30.0-30.9 in adult (ICD-10 - Z68.30) 01/01/2025 Coronary artery disease involving [place] heart without angina pectoris, unspecified vessel or lesion type (ICD-10 - I25.10) 08/19/2024 Dietary counseling (ICD-10 - Z71.3) 03/03/2025 [...] referral to link client to counseling via [employer]. Utilized person centered focus and motivational interviewing [...] Coverage Start Date Coverage End Date [facility] [address] [place] [address] [phone] [id number] Kylee Guo Self - patient is [...]
--- OUTSIDE RECORDS SUMMARY | 2025-05-01 12:59 | XMS_ITS ---
Author Organization [facility] Address [address] [place] [address] Care Team Providers Care Street Openings Inspector Name Role Phone Andrei Clark Primary Care Provider [phone] REASON FOR VISIT ER follow up from [facility] Social History Sex Assigned At : Social History Observation Description Sex Assigned At Female Encounters Encounter Location Date Provider Diagnosis [address] [place] [address] 04/11/2025 Andrei Clark Plan Of Treatment No Information Progress Notes * Kylee FIGUEROA RDOB:1985 (39 yo F)Acc No.[id number]:04/11/2025 UNLOCKED PROGRESS NOTE Progress Note Patient: Kylee HEATH Provider: Pernell Clark :1985 A ge:39 Y S ex:Female Date:04/11/2025 [facility] [facility] Subjective: * Chief Complaints: * 1 . ER follow up from [facility]. * Medical History: Objective: * Vitals: Assessment: Plan: * Treatment: * * Electronic signature of Luisa Clark , [id number] on 05/01/2025 at 12:58 PM CDT Sign off status: Pending * Provider: Pernell Clark Date: 0 04/11/2025 Generated for Lupis ruiz/Faxing/eTransmitting on: 0 05/01/2025 12:58 PM CDT
[2025-05-01 13:01] LABS: Troponin I < 0.012 ng/mL (0.000-0.034)
[2025-05-01 13:04] LABS: Hypochromasia 1+; Microcytosis 1+ (NORMAL); Platelet Estimate Adequate (Adequate); Schistocytes None Seen
== END 2025-05-01 15:36 | disposition home or self-care (01) ==
PROVIDERS: Emergency Provider Student in an Organized Health Care Education/Training Program; PCP Internal Medicine
DX: H81.10 Benign paroxysmal vertigo, unspecified ear (principal); I12.9 Hypertensive chronic kidney disease with stage 1 through stage 4 chronic kidney disease, or unspecified chronic kidney disease; E11.22 Type 2 diabetes mellitus with diabetic chronic kidney disease; N18.9 Chronic kidney disease, unspecified; Z87.891 Personal history of nicotine dependence
CPT/HCPCS: 36415; 70450; 71045; 80053; 82948; 84443; 84484; 85025; 85610; 85730; 93005; 96361; 96374; 99284; A9270; J3360; J7120

== ENCOUNTER 2025-10-21 03:20 | Day surgery (SDC) | payer BC, SELFPAY ==
--- NOTE | 2025-10-20 15:49 | PM.IMHP2 ---
H&P: HPI History of Present Illness Date/Time: 10/20/25 15:49 40-year-old female with irregular bleeding presents for evaluation and treatment. Cycles are irregularly irregular though not particularly heavy with clots. She has also lost significant weight after surgery and this is likely part of issue. Ultrasound shows normal size uterus with 2 small fibroids noted. Chief Complaint: Irregular vaginal bleeding Review of Systems Review of Systems: All systems reviewed & are unremarkable except as noted in HPI and below PMFSH Past Medical History Medical History Screening mammogram, encounter for Yeast infection Colon, diverticulosis Hematochezia Constipation Complex cyst of left ovary surgical removal SOB (shortness of breath) Bilateral hand pain Chronic kidney disease CRP elevated Myalgia Myalgia BOBBY positive (~2020) Degenerative joint disease of cervical and lumbar spine Pseudotumor cerebri History of Pettit's palsy Kidney cysts Followed by a artificial breeding technician in [place]. Anxiety Migraine headache Polycystic ovarian syndrome Gastroesophageal reflux disease Insulin dependent type 2 diabetes mellitus Hemoglobin A1c on 11/12/2020 was 7.9%. Dyslipidemia Empty sella syndrome Fibromyalgia Hypertension Surgical History Surgical History History of bowel resection (08/07/25) History of gastric bypass (05/26/25) History of esophagogastroduodenoscopy (EGD) History of unilateral oophorectomy History of bilateral salpingectomy History of tubal ligation Delivery by section xs 2 History of laparoscopic cholecystectomy (~2005) Family History Family History Father Diabetes mellitus Hypertension Myocardial infarct Heart disease Mother Diabetes mellitus Heart disease Sibling Narcolepsy and cataplexy Legal Guardian No problems noted. Grandparent Breast cancer Social History Social History Social History: The patient is and lives in [place] with her teenage son and daughter. She works for the [employer]. She smoked about a half a pack of cigarettes a day and quit in June 2020. No alcohol or illicit substance abuse. She designates her daughter Kiesha as her surrogate decision maker and she wishes to be a full code. Smoking packs per day: 1 Smoking cigarettes per day: 20.0 Years smoked: 20 Smoking pack-years: 20.00 Smoking status: Former smoker Tobacco type: cigarettes Second hand tobacco smoke exposure: Yes Smoking end date: 06/29/20 Alcohol intake: never Substance use: never Substance use type: does not use Other substance usage details: Previously used marijuana; denies currently Last use: DAILY Lack of Transportation: No Lack of Food: Never True Current Housing: I Have Housing Concerned About Future Housing: Decline to Answer Difficulty Paying Gas/Electric Bills: Decline to Answer Difficulty Paying for Meds: No Currently Unemployed: Decline to Answer Education: High School Diploma/GED Difficulty w/ Childcare or Family Care: No Living arrangements: with family Additional living arrangements comments: Occupation/Education: occupation Additional occupation/education comments: [employer] Gender identity (if verbalized by the patient): Female Sexual Orientation (if Verbalized by the Patient): Bisexual Spiritual care concerns: No Meds Home Medications and Allergies Home Medications ?Medication ?Instructions ?Recorded ?Confirmed ?Type albuterol sulfate 90 mcg/actuation 1 inh inhalation PRN PRN Shortness 07/06/20 09/22/25 History aerosol inhaler (ProAir HFA) Of Breath bupropion HCl 75 mg tablet 75 mg PO TID 09/22/25 09/22/25 History cyclobenzaprine 10 mg tablet 10 mg PO TID 09/22/25 09/22/25 History omeprazole 20 mg capsule,delayed 20 mg PO DAILY 09/22/25 09/22/25 History release Allergies Allergy/AdvReac Type Severity Reaction Status Date / Time methocarbamol (From Robaxin) Allergy Intermediate Hives Verified 09/22/25 14:14 metoclopramide AdvReac Severe PANIC Verified 09/22/25 14:13 ATTACKS ondansetron AdvReac Severe PANIC Verified 09/22/25 14:13 ATTACKS prochlorperazine (From AdvReac Severe PANIC Verified 09/22/25 14:13 Compazine) ATTACKS promethazine AdvReac Severe PANIC Verified 09/22/25 14:13 ATTACKS adhesive tape AdvReac Intermediate Rash Verified 09/22/25 14:13 Exam Const: General: cooperative and healthy appearing Resp: Effort & Inspection: normal respiratory effort Auscultation: clear to auscultation bilaterally Cardio: Rate: regular rate Rhythm: regular rhythm GI: Inspection: normal to inspection Auscultation: normal bowel sounds : External Female Exam: normal external appearance Speculum Exam - Vagina: normal appearance of the vagina Speculum Exam - Cervix: normal appearance of the cervix Bimanual exam- vagina & uterus: enlarged ( 8-10 week size) Bimanual Exam- Adnexa, other: normal adnexae Assessment and Plan Assessment and plan (1) Abnormal uterine bleeding: Code(s): N93.9 - Abnormal uterine and vaginal bleeding, unspecified Status: Acute Assessment and Plan: proceed with hysteroscopy, uterine curettings, endometrial ablation
[2025-10-20 17:45] VITALS: BMI 25.9
--- NOTE | 2025-10-20 17:54 | SUR.PREOP ---
[facility] has started construction of its new state of the art ER which will open Spring 2026. With this, we anticipate parking may be a challenge for some our surgical patients and families. Parking spaces are limited but are available for all Surgical, obstetrics, and ER patients sharing this lot. If you arrive and find you are having a hard time finding a parking space, please note that we understand the challenges, please drive around the hospital and park near Hospital Entrance 1. When you enter this entrance, you can ask a volunteer to direct or take you back to the surgical waiting area to check in. We appreciate everyone?s understanding of these expected challenges while we build for your future. Report to the Outpatient Waiting Room, entrance under the green pavilion located off [address], at time 0745 on date 10/20/25. Planned Procedure Time: 0945.? Time changes happen often and if your time is changed the preop area will call you the afternoon before. - You and your visitor will be asked to self-screen and do not enter if you have any COVID symptoms. Please call surgeon if you need to reschedule. - A mask is optional within the hospital at this time. Patients may have clear liquids (water, carbonated beverages, clear teas, apple juice) until 3 hours prior to surgery with a maximum of 20 ounces. - No food from midnight until time of surgery and no smoking, or chewing tobacco (or any form of nicotine). No chewing gum, candy or mints. - Infants may have breast milk until 4 hours before surgery, formula 6 hours prior to surgery. - Children will be allowed to drink immediately following surgery.? If applicable, please bring a bottle or sippy cup to assist with drinking. Juice, water, soda, and popsicles are readily available.? For infants on formula, please bring formula the day of surgery.? Pacifiers are allowed. Take only the following medications with a SIP of water on the morning of surgery: ___bupropion, xanax, hydroxine_ DO NOT STOP ANY OF YOUR OTHER PRESCRIPTION MEDICATIONS PRIOR TO SURGERY EXCEPT THE FOLLOWING Hold all vitamins and supplements for 3 days per anesthesiologist. Medications to discontinue per physician ____biotin and calcium supplements Date to take last dose Please no make-up, nail uruguayan, hairspray, perfume, deodorant, or body powder the day of surgery.? No jewelry (including any body piercings) or valuables the day of surgery, leave them at home.? Please take a shower or bath the night before, or the morning of, surgery with an antibacterial soap.? Wear comfortable, loose fitting clothing.? Children are encouraged to wear pajamas. - Jewelry must be removed prior to entering the operating room.? Rings and piercings that are not removed may be cut off. - The hospital will not accept responsibility for valuables.? - Please leave all valuables, including medications, at home the day of surgery. If you are going home after surgery, a licensed uke driver must drive you home.? - NO public transportation without another adult if you receive anesthesia. - We recommend that an adult stay with you for 24 hours following discharge. - We also recommend that you do not drive, make important decision, drink alcoholic beverages, or take any drugs that were not prescribed by your health care provider for at least 24 hours after your discharge time. For Pediatric surgeries, we recommend two adults accompany the child home. Follow any additional instructions given to you from your surgeon. Telephone instructions given to _patient_and asked if any additional questions and then verbalized understanding. Patient advised to call surgeon office or pre surgery nurse liaison [phone] if any additional questions.
--- NOTE | 2025-10-21 | S_PTH ---
PATIENT: Kylee Guo LOC: [facility]#:[id number] AGE/SX: 40/F ROOM: RE10/21/[address]: Alton Alves MD : 1985 BED: DIS: 10/21/2025 SPEC #: [id number] RECD: 10/21/25 11:28 STATUS: DEWEY REQ #: [id number] KATY: 10/21/25 00:[address]: Alton Alves DEPT: [facility] Surgical RECD BY: Ford Witt ENTERED: 10/21/25 11:28 SP TYPE: Surgical OTHR DR: Andrei Clark MD Tissues: A - Endometrial Curettings Procedures: Hematoxylin and Eosin Stain Gross and Microscopic Level 4
--- OUTSIDE RECORDS SUMMARY | 2025-10-21 03:24 | XMS_ITS | Encounter Summary ---
Author Organization [facility] Address [address] [place] [address] Phone Care Team Providers Care Incident Manager Name Role Phone Unknown, Notinfile Primary Care Provider Unavail able Dorota Martinez MD Primary Care Provider [phone] Andrei Clark MD Primary Care Provider Kandace Freedman OT Unavailable [phone] Christina Brunson MD Unavailable Encounter Details Date Type Department Care Team (Late st Contact Info) Description 02/07/2019 Ophth Exam [facility] Medicine Ophthalmology [address] [place] [address] 1[address] [place] [address] Diana Leon MD PhD [address] [place] [address] Social History Tobacco Use Types Packs/Day Years [...] on file Legal Sex Female 4:48 PM [employer]D [employer] Gender Identity Not on file Sexual Orientation Not on file documented as of this encounter Functional Status * Question Answer Date of Assessment Author MAP (mmHg) 77 02/08/2019 1:30 AM CDT Maren Bernstein RN * Fall Risk Assessment Tool - MEDFRAT Question Answer Date of Assessment Author History of falling in last 3 months, including since admission 0 02/07/2019 5:46 PM Khalida Eisenberg RN Confusion or disorientation 0 02/07/2019 5:46 PM Khalida Eisenberg RN Intoxicated or sedated 0 9 5:46 PM Khalida Eisenberg RN Impaired gait 0 02/07/2019 5:46 PM Khalida Eisenberg RN Mobility assist device used 0 02/07/2019 5:46 PM Khalida Eisenberg RN Altered elimination 0 02/07/2019 5 :46 PM Khalida Eisenberg RN Fall risk score: (1-2 low risk), (3-4 moderate risk), (5 or more high risk) 0 02/07/2019 5:46 PM Khalida Eisenberg RN Interventions - GENERAL USE as needed patient/family education 02/07/2019 5:46 PM Khalida Eisenberg RN documented as of this encounter Mental Status * Question Answer Entry Date Author Level of Consciousness Alert;Awake 9 6:55 PM Maren Cardozo RN Orientation Oriented X4 (person, place, time, situation) 02/07/2019 6:55 PM Maren Cardozo RN documented in this encounter Plan of Treatment [...] no RT/RD/necrosis no RT/RD/necro sis Care Teams Incident Manager Relationship Specialty Start Date End Date Unknown, Notinfile PCP - General 02/04/19 02/10/19 Dorota Martinez MD [address] [place] [id number] PCP - General 02/11/19 12/10/20 Andrei Clark MD [address] [place] [address] PCP - General Internal Medicine 12/11/20 Kandace Freedman OT [address] [place] [address] Occupational Therapist Occupational Therapy 03/15/21 Christina Brunson MD [address] [place] [address] Obstetrics and Gynecology 08/02/22 documented as of this encounter
--- OUTSIDE RECORDS SUMMARY | 2025-10-21 03:24 | XMS_ITS | Clinical Summary ---
Author Organization [facility] Address [address] [place] [address] Care Team Providers Care Web Ui Designer Name Role Phone Andrei Clark MD Primary Care Provider [phone] Source Comments [facility],non-owned Affiliates and Associated Physician Practices is amultiple site organization consisting of ambulatory clinics and hospital sitesin [place], [place], [place] and [place]. This disclosure is being madepursuant to the Care Everywhere program and may not contain all information available regarding this patient. Last updated 18.[facility] Allergies Active Allergy Reactions Criticality Noted Date Comments Prochlorperazine 10/19/2013 Ondansetron 10/19/2013 Promethazine Other Low 02/04/2019 Metoclopramide 10/19/2013 Medications * Be aware that medications may not be up to date on this document. Alwaysverify current medications with the patient. ONETOUCH ULTRA test strip Use 1 (one) strip 2 times daily 1 Active buPROPion (Wellbutrin) 75 MG tablet Take 1 (one) tablet by mouth 2 times daily 60 tablet 5 Active senna-docusate (Senokot-S) 8.6-50 MG tablet Take 1 (one) tablet by mouth 2 times daily as needed for Constipation 5 Active omeprazole (PriLOSEC) 20 MG capsule Take 1 (one) capsule by mouth once daily 30 capsule 3 5 Active acetaminophen (Tylenol) 160 MG/5ML solution Take 20.3125 mL by mouth every 6 hours as needed 5 Active diphenhydrAMINE elixir (Benadryl) 12.5 MG/5ML solution Take 10 mL by mouth every 6 hours as needed for Itching 5 Active cyclobenzaprine (Flexeril) 10 MG tablet Take 0.5 (one-half) tablet by mouth 3 times daily as needed for Muscle Spasms 30 tablet 5 Active methocarbamol (Robaxin) 750 MG tablet Take 1 (one) tablet by mouth every 6 hours as needed for muscle spasms 20 tablet 5 Active Active Problems Problem Noted Date Diagnosed Date Nausea and vomiting, unspecified vomiting type 1 Slurred speech 08/07/2025 Bowel perforation 08/07/2025 Dehydration 06/11/2025 Morbid obesity 05/26/2025 Iron deficiency anemia 04/29/2025 Tension headache 07/02/2020 [...] Encounters Date Type Department Care Team Description 5 12:47 PM SUPERVISOR DUMPING - 5 11:59 PM SUPERVISOR DUMPING Hospital Encounter [facility] Imaging Services - Radiology [address] [place] [address] Chin Mcleod MD Discharge Disposition: Home or Self Care 5 12:00 PM SUPERVISOR DUMPING Office Visit [facility] Weight Management Services [address] [place] [address] Chin Mcleod MD S/P bariatric surgery (Primary Dx); Abdominal pain, unspecified abdominal location; Other specified intestinal malabsorption (HCC) 5 Results Follow-Up [facility] Weight Management Services [address] [place] [address], [address] [place] [address] [address] Chin Mcleod MD 5 10:54 AM CDT - 5 11:59 PM CDT Hospital Encounter [facility] Imaging [facility] - Radiology [address] [place] [address] Chin Mcleod MD Discharge Disposition: Home or Self Care 5 9:40 AM CDT Office Visit [facility] Weight Management Services [address] [place] [address], [address] [place] [address] [address] Chin Mcleod MD Morbid obesity (HCC) (Primary Dx); S/P bariatric surgery; Postoperative follow-up 5 7:52 AM CDT Anesthesia Event [facility] Endoscopy Services [address] [place] [address] Zoë Waldron DO Ford, James D, LEADED GLASS INSTALLER-NURSING HOME ASSISTANT ADMINISTRATOR 5 7:30 AM CDT - 5 7:50 AM CDT Surgery [facility] - Endoscopy Services [address] [place] [address] Silvestre Phelps MD ESOPHAGOGASTRODUODENOSCOPY (EGD) DIAGNOSTIC 5 6:35 AM CDT - 5 1:48 PM CDT Hospital Encounter [facility] 2S SURG/BARIATRIC [id number] [place] [address] Silvestre Phelps MD Bariatric Surgery Discharge Disposition: Home or Self Care 5 Telephone [facility] Weight Management Services [address] [place] [address], [facility] [address] [place] [address] Diann Zimmerman, RN Follow-up 5 Telephone [facility] Weight Management Services [address] [place] [address], [address] [place] [address] [address] Diann Zimmerman, RN Follow-up 5 Telephone [facility] Weight Management [facility] [address] [place] [address] Diann Zimmerman, RN Follow-up 5 Telephone [facility] Weight [facility] [address] [place] [address], [address] [place] [address] [address] Diann Zimmerman, RN Follow-up 5 9:30 AM CDT - 5 11:59 PM CDT Hospital Encounter Infusion Services at [address] [place] [address] Chin Mcleod MD Discharge Disposition: Home or Self Care 5 Telephone [facility] Weight [facility] [address] [place] [address], [facility] [address] [place] [address] Diana Cochran APRN-CNP Follow-up 5 8:20 AM CDT Office Visit [facility] [address] [place] [address], [facility] [address] [place] [address] Diana Cochran APRN-CNP Dysphagia, unspecified type (Primary Dx); S/P bariatric surgery; Epigastric pain 5 Office Visit External [facility] Weight [facility] [address] [place] [address], [address] [place] [address] Bhakti Wren MA 5 10:10 AM CDT Anesthesia Event [facility] Perioperative Surgery [address] [place] [address] Zoë Waldron DO Han, Jason A, MD 5 9:49 AM CDT - 5 11:52 AM CDT Surgery [facility] - Perioperative Surgery [address] [place] [address] Chin Mcleod MD LAPAROSCOPY DIAGNOSTIC, small bowel resection, repair of perforation 5 8:59 AM CDT - 5 1:50 PM CDT Hospital Encounter [facility] SURG/BARIATRIC [address] [place] [address] Sandro Moore MD Schwoerer, Andrea, MD Emergency Medicine Discharge Disposition: Home or Self Care 5 7:20 AM CDT - 5 7:40 AM CDT Surgery [facility] - Endoscopy Services [address] [place] [address] Chin Mcleod MD ESOPHAGOGASTRODUODENOSCOPY (EGD) WITH DILATION 5 7:00 AM CDT Anesthesia Event [facility] Endoscopy Services [address] [place] [address] Kalepsh Saleh MD 5 5:58 AM CDT - 5 8:50 AM CDT Hospital Encounter [facility] Endoscopy Services [address] [place] [address] Chin Mcleod MD Surgery General Discharge Disposition: Home or Self Care 5 Travel 5 Travel 5 Travel 5 Telephone [facility] Weight Management Services [address] [place] [address], [address] [place] [address] Chin Mcleod MD Procedure 5 Telephone [facility] Weight Management Services [address] [facility], [address] [place] [phone] Diana Cochran APRN-RAND Dysphagia from Last 3 Months Family History Medical [...] Years Used Date Smoking Tobacco: Former Cigarettes 0.3 Q uit: 06/30/2020 Passive Smoke Exposure: Never Smokeless Tobacco: Never Tobacco Cessation:Counseling Given: Yes Alcohol Use Standard Drinks/Week Comments No 0 (1 standard drink = 0.6 oz pur e alcohol) AUDIT-C Answer Date Recorded Q1: How often do you have a drink containing alcohol? Never 08/26/2025 Q2: How many drinks containi ng alcohol do you have on a typical day when you are drinking? Patient does not drink Q3: How often do you have si x or more drinks on one occasion? Never 08/26/2025 Overall Financial Resource Strain (CARDIA) Answe r Date Recorded How hard is it for you to pa y for the very basics like food, housing, medical care, and heating? Not hard at all 08/26/2025 PHQ-2 Answer Date Recorded Patient Health Questionnaire-2 Score 6 10/09/2025 [facility] - Occupational Stress Questionnaire Answer Date Recorded Do you feel stress - tense, restless, nervous, or anxious, or unable to sleep at night because your mind is troubled all the time - these days? Not at all 08/26/2025 Hunger Vital Sign Answer Date Recorded Within the past 12 months, y ou worried that your food would run out before you got the money to buy more. Never true 08/26/20 25 Within the past 12 months, t he food you bought just didn't last and you didn't have money to get more. Never true 08/26/2025 PRAPARE - Transportation Answer Date Re corded In the past 12 months, has l ack of transportation kept you from medical appointments or from getting medications? No 05/2025 In the past 12 months, has l ack of transportation kept you from meetings, work, or from getting things needed for daily living? No 08/26/2025 Housing Stability Vital Sign Answer Sammy e Recorded In the last 12 months, was t here a time when you were not able to pay the mortgage or rent on time? No 08/26/2025 In the past 12 months, how m any times have you moved where you were living? 0 08/26/2025 At any time in the past 12 [facility], were you homeless or living in a fci (including now)? No 08/26/2025 Comments No Sex and Gender Information Value Date Recorded Sex Assigned at Female 04/11/2025 11:15 AM CDT Legal Sex Female 6:27 AM SUPERVISOR DUMPING Gender Identity Not on file Sexual Orientation Not on file Last Filed Vital Signs Vital Sign Reading Time Taken Comments Blood Pressure 130/78 10/09/2025 12:10 PM SUPERVISOR DUMPING Pulse 69 09/09/2025 9:42 AM CDT Temperature 36.2 C (97.2 F) 10/09/2025 12:10 PM SUPERVISOR DUMPING Respiratory Rate 18 08/30/2025 7:52 AM CDT Oxygen Saturation 97% 09/09/2025 9:42 AM CDT Inhaled Oxygen Concentration - - Weight 70.2 kg (154 lb 12.8 oz) 025 12:10 PM SUPERVISOR DUMPING Height 162.6 cm (5' 4) 10/09/2025 12:1 0 PM SUPERVISOR DUMPING Body Mass Index 26.57 10/09/2025 12:10 PM SUPERVISOR DUMPING Plan of Treatment Upcoming Encounters Date Type Department Care Team (Late st Contact Info) Description 11/26/2025 12:30 PM SUPERVISOR DUMPING Office Visit [facility] Weight Management Services [address] [facility], [address] [place], [place] [phone] Diana Cochran, LEADED GLASS INSTALLER-ENVIRONMENTAL COMPLIANCE TECHNICIAN [address] [facility] [address] [place] [address] 05/26/2026 1:00 PM CDT Office Visit [facility] Weight Management [facility] [address] [facility], [address] [place] [address] Diana Cochran, LEADED GLASS INSTALLER-[facility] [address] [facility] [address] [place] [address] Health Maintenance Due Date Last Done Comments MAMMOGRAM 1983 HIV SCREENING 1998 HEPATITIS C SCREENING 05/24/2001 DTAP/TDAP/TD VACCINES (1 - Tdap) 2002 HEPATITIS B VACCINE (1 of 3 - 19+ 3-dose series) 2002 PNEUMOCOCCAL VACCINE (1 of 2 - PCV) 2002 Cervical Cancer Screening 2004 PAP SMEAR 2004 HPV VACCINE (1 - 3-dose SCDM series) 2010 PAP with HPV 2013 DIABETES-FOOT EXAM WITH MONOFILAMENT 07/02/2020 DIABETES RETINOPATHY SCREENING 02/15/2021 02/15/2019, 02/15/2019 DIABETES - URINE PROTEIN SCREENING 11/20/2024 COVID-19 VACCINE ( season) 2025 09/22/2021, 09/01/2021 INFLUENZA VACCINE (#1) 2025 DIABETES-HGB A1C 02/25/2026 08/27/2025, 05/27/2025 DIABETES-SERUM CREATININE 08/29/20262024, 08/29/2025, 08/26/2025, Additional history exists ZOSTER VACCINE (1 of [...] on patient's age to complete this topic Medical Devices Implanted Type Area Mica Washer Gluer Device Identifier Shelf Expiration Date Model / Serial / Lot Stent Pncr 15mm 24mm 10mm 146mm 138mm - [id number] Implanted:Qty: 1 on 08/26/2025 by Silvestre Phelps MD at [employer] 04/04/2027 [id number] / [id number] / [id number] Procedures Procedure Name Priority Date/Time Associated Diagnosis Comments XR ABDOMEN KUB Routine 10/09/2025 1:00 PM SUPERVISOR DUMPING S/P bariatric surgery Abdominal pain, unspecified abdominal location XR ABDOMEN KUB Routine 09/09/2025 11:40 AM CDT Morbid obesity (HCC) S/P bariatric surgery Postoperative follow-up GLUCOSE - POINT OF CARE Routine 08/30/2025 6:43 AM CDT CBC W AUTO DIFFERENTIAL AM Draw 08/30/2025 4:13 AM CDT GLUCOSE - POINT OF CARE Routine 08/29/2025 11:26 PM CDT XR ABDOMEN KUB STAT 08/29/2025 7:50 PM CDT Gastrojejunal anastomotic stricture URINALYSIS REFLEX TO MICROSCOPIC NO CULTURE Routine 08/29/2025 7:17 PM CDT COMPREHENSIVE METABOLIC PANEL Routine 08/29/2025 6:12 PM CDT CBC W AUTO DIFFERENTIAL Routine 08/29/2025 6:12 PM CDT GLUCOSE - POINT OF CARE Routine 08/29/2025 6:03 PM CDT GLUCOSE - POINT OF CARE Routine 08/29/2025 11:38 AM CDT BASIC METABOLIC PANEL (CALCIUM TOTAL) AM Draw 08/29/2025 6:22 AM CDT GLUCOSE - POINT OF CARE Routine 08/29/2025 6:08 AM CDT GLUCOSE - POINT OF CARE Routine 08/28/2025 11:39 PM CDT GLUCOSE - POINT OF CARE Routine 08/28/2025 4:35 PM CDT GLUCOSE - POINT OF CARE Routine 08/28/2025 12:33 PM CDT GLUCOSE - POINT OF CARE Routine 08/28/2025 6:23 AM CDT GLUCOSE - POINT OF CARE Routine 08/27/2025 11:24 PM CDT XR ABDOMEN KUB STAT 08/27/2025 5:49 PM CDT Gastrojejunal anastomotic stricture GLUCOSE - POINT OF CARE Routine 08/27/2025 5:01 PM CDT GLUCOSE - POINT OF CARE Routine 08/27/2025 10:39 AM CDT GLUCOSE - POINT OF CARE Routine 08/27/2025 5:46 AM CDT HEMOGLOBIN A1C Routine 08/27/2025 4:57 AM CDT GLUCOSE - POINT OF CARE Routine 08/26/2025 11:44 PM CDT GLUCOSE - POINT OF CARE Routine 08/26/2025 9:14 PM CDT GLUCOSE - POINT OF CARE Routine 08/26/2025 5:41 PM CDT GLUCOSE - POINT OF CARE Routine 08/26/2025 12:04 PM CDT FL UGI SERIES Routine 08/26/2025 10:20 AM CDT Nausea and vomiting, unspecified vomiting type Gastrojejunal anastomotic stricture EGD Routine 08/26/2025 7:42 AM CDT [place] ED EGD FLEX TRANSORAL DX 08/26/2025 7:30 AM CDT COMPREHENSIVE METABOLIC PANEL STAT 08/26/2025 7:15 AM CDT CBC W AUTO DIFFERENTIAL STAT 08/26/2025 7:15 AM CDT GLUCOSE - POINT OF CARE Routine 08/26/2025 6:41 AM CDT GLUCOSE - POINT OF CARE Routine 08/09/2025 6:43 AM CDT CBC W AUTO DIFFERENTIAL AM Draw 08/09/2025 4:24 AM CDT BASIC METABOLIC PANEL (CALCIUM TOTAL) AM Draw 08/09/2025 4:24 AM CDT GLUCOSE - POINT OF CARE Routine 08/08/2025 9:02 PM CDT GLUCOSE - POINT OF CARE Routine 08/08/2025 1:59 PM CDT CARDIAC EKG ORDER 08/08/2025 9:3 3 AM CDT FL UGI SERIES STAT 08/08/2025 9:14 AM CDT Bowel perforation (HCC) VITAMIN D 25-HYDROXY AM Draw 08/08/2025 3:18 AM CDT CBC W AUTO DIFFERENTIAL AM Draw 08/08/2025 3:18 AM CDT BASIC METABOLIC PANEL (CALCIUM TOTAL) AM Draw 08/08/2025 3:18 AM CDT GLUCOSE - POINT OF CARE Routine 08/07/2025 11:06 PM CDT GLUCOSE - POINT OF CARE Routine 08/07/2025 4:06 PM CDT GLUCOSE - POINT OF CARE Routine 08/07/2025 11:46 AM CDT ENDOTRACHEAL TUBE NOTE Routine 10:32 AM CDT MI LAP,DIAGNOSTIC ABDOMEN 08/07/2025 10:01 AM CDT EKG 12-LEAD STAT 08/07/2025 9:29 [address] CDT Slurred [address] CHEST ABDOMEN PELVIS WO CONT STAT 08/07/2025 9:29 AM CDT Abdominal pain, unspecified abdominal location CT ANGIO BRAIN NECK STROKE STAT 08/07/2025 9:13 AM CDT Slurred speech CT CEREBRAL PERFUSION ANALYSIS STAT 08/07/2025 9:12 [address] CDT [address] HEAD WO CONTRAST STAT 08/07/2025 9 :05 AM CDT Weakness TROPONIN-I HIGH SENSITIVE STAT 08/07/2025 9:04 AM CDT PTT Critical 08/07/2025 9:04 AM CDT PT-INR Critical 08/07/2025 9:04 AM CDT COMPREHENSIVE METABOLIC PANEL STAT 08/07/2025 9:04 AM CDT CBC W AUTO DIFFERENTIAL STAT 08/07/2025 9:04 AM CDT ISTAT CREATININE Routine 08/07/2025 8:59 AM CDT INR WHOLE BLOOD - POINT OF CARE (IP) STROKE Routine 08/07/2025 8:57 AM CDT XR ABDOMEN KUB STAT 08/07/2025 8:42 AM CDT Neck pain XR CHEST 1VW PORTABLE STAT 08/07/2025 8:41 AM CDT Neck pain HCG URINE QUAL POCT NOTIFICATION Routine 08/07/2025 7:30 AM CDT Pre-op exam [place] ED EGD FLEX TRANSORAL DX 08/07/2025 7:20 AM CDT EGD Routine 08/07/2025 6:35 AM CDT Dysphagia, unspecified type from Last 3 Months Results * XR ABDOMEN 1 VW (KUB) (10/09/2025 1:00 PM SUPERVISOR DUMPING) Only the most recent of5 resultswithin the time period is included. Anatomical Region Laterality Modality Abdomen Computed Radiogr aphy 10/09/2025 1:06 PM SUPERVISOR DUMPING Impressions 10/09/2025 1:07 PM SUPERVISOR DUMPING Impression: Postoperative changes > Interpreting Provider: Shaun Barrera MD on 10/09/2025 1:07 PM Narrative 10/09/2025 1:07 PM SUPERVISOR DUMPING PROCEDURE: XR ABDOMEN KUB DATE/TIME OF EXAM: 10/09/2025 1:02 PM CLINICAL INFORMATION: None relevant/not provided if blank. Indication: Z98.84: S/P bariatric surgery R10.9: Abdominal pain, unspecified abdominal location Additional History: COMPARISON: 09/09/2025 FINDINGS: Scattered stool is present throughout the colon. There is no bowel obstruction or free intraperitoneal air. Surgical suture overlies the left upper quadrant. Surgical clips overlie the right upper quadrant. Lucent ringlike structure medial left upper quadrant is stable. Procedure Note Shaun Barrera MD - 10/09/2025 PROCEDURE: XR ABDOMEN KUB DATE/TIME OF EXAM: 10/09/2025 1:02 PM CLINICAL INFORMATION: None relevant/not provided if blank. Indication: Z98.84: S/P bariatric surgery R10.9: Abdominal pain, unspecified abdominal location Additional History: COMPARISON: 09/09/2025 FINDINGS: Scattered stool is present throughout the colon. There is no bowel obstruction or free intraperitoneal air. Surgical suture overlies theleft upper quadrant. Surgical clips overlie the right upper quadrant. Lucent ringlike structure medial left upper quadrant is stable. Impression: Postoperative changes > Interpreting Provider: Shaun Barrera MD on 10/09/2025 1:07 PM us Chin Mcleod MD DIAGNOSTIC IMAGING ORDERABLE S Final Result * (ABNORMAL) GLUCOSE - POINT OF CARE (08/30/2025 6:43 AM CDT) Only the most recent of24 resultswithin the time period is included. Glucose WB/POC 107(H) 70 - 99 mg/dL 08/30/2025 6:53 AM CDT [facility] Specimen Type Arterial/C apillary 08/30/2025 6:53 AM CDT [facility] Blood BLOOD SPECIMEN / Unknown 08/30/2025 6:43 AM CDT 08/30/2025 6:53 AM CDT us Silvestre Phelps MD LAB - POINT OF CARE ORDERABLE S Final Result [facility] [address] [place] [address] * (ABNORMAL) CBC W AUTO DIFFERENTIAL (08/30/2025 4:13 AM CDT) Only the most recent of6 resultswithin the time period is included. [facility] WBC 5.3 4.0 - 10.7 x10E9/L 08/30/2025 4:31 AM CDT [facility] RBC Count 4.02 3.90 - 5.20 x10E12/L 08/30/2025 4:31 AM CDT [facility] Hemoglobin 10.9(L) 11.9 - 15.8 g/dL 08/30/2025 4:31 AM CDT [facility] Hematocrit 35.6 34.8 - 46.1 % 08/30/2025 4:31 AM CDT [facility] MCV 88.6 80.0 - 98.0 fL 08/30/2025 4:31 AM CDT [facility] MCH 27.1 26.7 - 33.6 pg 08/30/2025 4:31 AM CDT [facility] MCHC 30.6(L) 31.7 - 36.3 g/dL 08/30/2025 4:31 AM CDT [facility] RDW-CV 17.1(H) 11.3 - 14.8 % 08/30/2025 4:31 AM CDT [facility] Platelet Count 200 150 - 420 x10E9/L 08/30/2025 4:31 AM CDT [facility] MPV 9.0 7.8 - 11.4 fL 08/30/2025 4:31 AM CDT [facility] Neutrophil % 55.2 41.0 - 74.0 % 08/30/2025 4:31 AM CDT [facility] Lymphocyte % 32.8 17.0 - 47.0 % 08/30/2025 4:31 AM CDT [facility] Monocyte % 8.0 3.0 - 11.0 % 08/30/2025 4:31 AM CDT [facility] Eosinophil % 3.6 0.0 - 7.0 % 08/30/2025 4:31 AM CDT [facility] Basophil % 0.2 0.0 - 1.6 % 08/30/2025 4:31 AM CDT [facility] Immature Granulocytes % 0.2 0.0 - 1.0 % 08/30/2025 4:31 AM CDT [facility] Neutrophil Absolute 2.92 1.60 - 7.50 x10E9/L 08/30/2025 4:31 AM CDT [facility] Lymphocyte Absolute 1.73 1.00 - 4.40 x10E9/L 08/30/2025 4:31 AM CDT [facility] Monocyte Absolute 0.42 0.15 - 1.00 x10E9/L 08/30/2025 4:31 AM CDT [facility] Eosinophil Absolute 0.19 0.00 - 0.60 x10E9/L 08/30/2025 4:31 AM CDT [facility] Basophil Absolute 0.01 0.00 - 0.13 x10E9/L 08/30/2025 4:31 AM CDT [facility] Blood BLOOD SPECIMEN / Unknown Venipuncture / Unknown 08/30/2025 4:13 AM CDT 08/30/2025 4:21 AM CDT us Silvestre Phelps MD LAB - HEMATOLOGY ORDERABLES F inal Result [facility] [address] [place] [address] * (ABNORMAL) URINALYSIS REFLEX TO MICROSCOPIC NO CULTURE (08/29/2025 7:17 PM CDT) Color UA Yellow Yellow, Straw 08/29/2025 7:51 PM CDT [facility] Clarity UA Clear Clear 08/29/2025 7:51 PM CDT [facility] Glucose UA Normal Normal 08/29/2025 7:51 PM CDT [facility] Bilirubin UA Negative Negative 08/29/2025 7:51 PM CDT [facility] Ketone UA 1+(A) Negative 08/29/2025 7:51 PM CDT [facility] Specific [place] UA 1.025 1.005 - 1.030 08/29/2025 7:51 PM CDT [facility] Blood UA 2+(A) Negative 08/29/2025 7:51 PM CDT [facility] pH UA 5.5 5.0 - 8.0 08/29/2025 7:51 PM CDT [facility] Protein UA 1+(A) Negative 08/29/2025 7:51 PM CDT [facility] Urobilinogen UA Normal Normal mg/dL 025 7:51 PM CDT [facility] Nitrite UA Negative Negative 08/29/2025 7:51 PM CDT [facility] Leukocyte Esterase UA Negative Negative 08/29/2025 7:51 PM CDT [facility] RBC UA 21-50(A) 0 - 5 # /hpf 08/29/2025 7:51 PM CDT [facility] WBC UA 0-5 0 - 5 # /hpf 08/29/2025 7:51 PM CDT [facility] Bacteria UA Trace(A) None Seen 08/29/2025 7:51 PM CDT [facility] Squamous Epithelial Cells 0-2 0 - 5 /hpf 08/29/2025 7:51 PM CDT [facility] Mucus UA 1+ /LPF 08/29/2025 7:51 PM CDT [facility] Urine URINE SPECIMEN OBTAINED BY CLEAN CATCH PROCEDURE / Unknown Collection / Unknown 08/29/2025 7:17 PM CDT 08/29/2025 7:39 PM CDT us Maylin Echols MD LAB - URINALYSIS ORDERAB LES Final Result [facility] [address] [place] [address] * (ABNORMAL) COMPREHENSIVE METABOLIC PANEL (08/29/2025 6:12 PM CDT) Only the most recent of3 resultswithin the time period is included. Glucose 146(H) 70 - 99 mg/dL 08/29/2025 6:31 PM CDT [facility] Sodium 140 136 - 145 mmol/L 08/29/2025 6:31 PM CDT [facility] Potassium 3.7 3.5 - 5.1 mmol/L 08/29/2025 6:31 PM CDT [facility] Chloride 109(H) 98 - 107 mmol/L 08/29/2025 6:31 PM CDT [facility] CO2 21(L) 22 - 29 mmol/L 08/29/2025 6:31 PM CDT [facility] Calcium 9.8 8.4 - 10.4 mg/dL 08/29/2025 6:31 PM CDT [facility] Anion Gap 10 6 - 16 mmol/L 08/29/2025 6:31 PM CDT [facility] BUN 22(H) 5.3 - 18.7 mg/dL 08/29/2025 6:31 PM CDT [facility] Creatinine 0.70 0.50 - 1.10 mg/dL 08/29/2025 6:31 PM CDT [facility] Alkaline Phosphatase 86 40 - 150 U/L 08/29/2025 6:31 PM CDT [facility] ALT 25 6 - 57 U/L 08/29/2025 6:31 PM CDT [facility] AST 22 10 - 48 U/L 08/29/2025 6:31 PM CDT [facility] Protein Total 7.7 6.4 - 8.3 gm/dL 08/29/2025 6:31 PM CDT [facility] Albumin 4.0 3.1 - 4.5 gm/dL 08/29/2025 6:31 PM CDT [facility] Bilirubin Total 0.3 0.2 - 1.2 mg/dL 08/29/2025 6:31 PM CDT [facility] eGFR by CKD-EPI >90 >=90 mL/min/1.7 3 m2 08/29/2025 6:31 PM CDT [facility] Comment:Estimated Glomerular Filtration Rate (eGFR) calculated using the CKD-EPI Creatinine Equation (2020), per the National Kidney Foundation and [place] [employer]ph[employer] recommendations. Blood BLOOD SPECIMEN / Unknown Venipuncture / Unknown 08/29/2025 6:12 PM CDT 08/29/2025 6:16 PM CDT us Maylin Echols MD LAB - CHEMISTRY ORDERABL ES Final Result [facility] [id number] [place] [address] * (ABNORMAL) BASIC METABOLIC PANEL (CALCIUM TOTAL) (08/29/2025 6:22 AM CDT) Only the most recent of3 resultswithin the time period is included. [facility] Glucose 85 70 - 99 mg/dL 08/29/2025 6:49 AM CDT [facility] Sodium 140 136 - 145 mmol/L 08/29/2025 6:49 AM CDT [facility] Potassium 3.7 3.5 - 5.1 mmol/L 08/29/2025 6:49 AM CDT [facility] Chloride 110(H) 98 - 107 mmol/L 08/29/2025 6:49 AM CDT [facility] CO2 22 22 - 29 mmol/L 08/29/2025 6:49 AM CDT [facility] Calcium 9.1 8.4 - 10.4 mg/dL 08/29/2025 6:49 AM CDT [facility] Anion Gap 8 6 - 16 mmol/L 08/29/2025 6:49 AM CDT [facility] BUN 15 5.3 - 18.7 mg/dL 08/29/2025 6:49 AM CDT [facility] Creatinine 0.63 0.50 - 1.10 mg/dL 08/29/2025 6:49 AM T [facility] eGFR by CKD-EPI >90 >=90 mL/min/1.7 3 m2 08/29/2025 6:49 AM T [facility] Comment:Estimated Glomerular Filtration Rate (eGFR) calculated using the CKD-EPI Creatinine Equation (2020), per the National Kidney Foundation and [place] [employer] Neph[employer] recommendations. Blood BLOOD SPECIMEN / Unknown Venipuncture / Unknown 08/29/2025 6:22 AM CDT 08/29/2025 6:29 AM CDT Maylin Echols MD LAB - CHEMISTRY ORDERABL ES Final Result Performing Organization Address [facility] de Phone Number [facility] [address] [place] [phone] * (ABNORMAL) HEMOGLOBIN A1C (08/27/2025 4:57 AM CDT) Hemoglobin A1c 6.7(H) <5.7 % 08/27/2025 5:21 AM CDT [facility] Estimated Average Glucose 146 mg/dL 08/27/2025 5:21 AM CDT [facility] Blood BLOOD SPECIMEN / Unknown Venipuncture / Unknown 08/27/2025 4:57 AM CDT 08/27/2025 5:10 AM CDT Narrative [facility] - 08/27/2025 5:21 AM CDT HbA1c Interpretation: Normal: < 5.7% Pre-diabetes: 5.7-6.4% Diabetes: Equal to or greater than 6.5% Test results diagnostic of diabetes should be repeated for confirmation. Treatment target values recommended by ADA and other clinical organizations should be used to evaluate metabolic control in patients. This test should not replace glucose testing for patients with Type 1 diabetes, pediatric patients, or women. Falsely low HbA1c results may be observed in patients with clinical conditions that shorten erythrocyte life span or decrease mean erythrocyte age such as the presence of unstable hemoglobin variants, elevated hemoglobin F level or other causes of hemolytic anemia. HbA1c may not accurately reflect glycemic control when clinical conditions that affect erythrocyte survival are present. Severe Iron deficiency anemia may yield falsely high results. Hemoglobin A1c assay should not be used to diagnose or monitor diabetes in patients with malignancy, recent blood transfusion, chronic kidney or liver disease. This method may yield falsely low results when hemoglobin (HbF) exceeds 5% in the specimen. The Nieves Alinity assay for the measurement of HbA1c is a National Glycohemoglobin Standardization Program (NGSP) certified method. us Maylin Echols MD LAB - CHEMISTRY ORDERABL ES Final Result Performing Organization Address [facility] Co de Phone Number [facility] [id number] [place] [address] * FL Ugi Series (08/26/2025 10:20 AM CDT) Only the most recent of2 resultswithin the time period is included. Anatomical Region Laterality Modality Abdomen Computed Radiogr aphy 08/27/2025 2:54 PM CDT Impressions 08/27/2025 2:58 PM CDT IMPRESSION: WIDELY PATENT GASTROJEJUNAL STENT. NO ACUTE FINDINGS. Edited by Jaky Pérez on 08/27/2025 2:57 PM > Interpreting Provider: Carly Lainez MD on 08/27/2025 2:58 PM Narrative 08/27/2025 2:58 PM CDT PROCEDURE: FL UGI SERIES DATE/TIME OF EXAM: 08/26/2025 11:15 AM INDICATION: R11.2: Nausea and vomiting, unspecified vomiting type. 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 COMPARISON: 08/08/2025. TECHNIQUE: Patient ingested thin barium in various positions. FLUOROSCOPY DOSE: 3.69 mGy Reference air kerma (ka,r). FINDINGS: Esophagus normal in contour and caliber. No mucosal lesions within the esophagus. No esophageal stricture or diverticulum. No hiatal hernia. No intrinsic or extrinsic mass effect of the esophagus. Gastric pouch normal in shape and morphology. A stent is present at the gastroduodenal junction. The stent is widely patent with free flow of oral contrast media distally into the Chantale loop. Chantale loop normal in shape and morphology. Procedure Note Carly Lainez MD - 08/27/2025 PROCEDURE: FL UGI SERIES DATE/TIME OF EXAM: 08/26/2025 11:15 AM INDICATION: R11.2: Nausea and vomiting, unspecified vomiting type. 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 COMPARISON: 08/08/2025. TECHNIQUE: Patient ingested thin barium in various positions. FLUOROSCOPY DOSE: 3.69 mGy Reference air kerma (ka,r). FINDINGS: Esophagus normal in contour and caliber. No mucosal lesions within the esophagus. No esophageal stricture or diverticulum. No hiatal hernia. No intrinsic or extrinsic mass effect of the esophagus. Gastric pouch normal in shape and morphology. A stent is present at the gastroduodenal junction. The stent is widely patent with free flow of oral contrast media distally into the Rouxloop. Chantale loop normal in shape and morphology. IMPRESSION: WIDELY PATENT GASTROJEJUNAL STENT. NO ACUTE FINDINGS. Edited by Jaky Pérez on 08/27/2025 2:57 PM > Interpreting Provider: Carly Lainez MD on 08/27/2025 2:58 PM us Silvestre Phelps MD FLUOROSCOPY ORDERABLES Final Result * EGD (08/26/2025 7:42 AM CDT) Report Endoscopy POC _ Patient Name: Emma Figueroa Procedure Date: 08/26/2025 7:42 AM Date of : 1985 Admit Type: Inpatient Age: 40 Gender: Female Attending MD: Silvestre Phelps MD, _ Procedure: Upper GI endoscopy Indications: Dysphagia, Assessment following Chantale-en-Y gastrojejunostomy Providers: Silvestre Phelps MD (Doctor) Referring MD: Silvestre Phelps MD (Referring MD) Medicines: Propofol per Anesthesia Complications: No immediate complications. _ Estimated Blood Loss: Estimated blood loss: none. Procedure: Pre-Anesthesia Assessment: - Prior to the procedure, a History and Physical was performed, and patient medications and allergies were reviewed. The patient's tolerance of previous anesthesia was also reviewed. The risks and benefits of the procedure and the sedation options and risks were discussed with the patient. All questions were answered, and informed consent was obtained. Prior Anticoagulants: The patient has taken no anticoagulant or antiplatelet agents. ASA Grade Assessment: II - A patient with mild systemic disease. After reviewing the risks and benefits, the patient was deemed in satisfactory condition to undergo the procedure. After obtaining informed consent, the endoscope was passed under direct vision. Throughout the procedure, the patient's blood pressure, pulse, and oxygen saturations were monitored continuously. The Endoscope was introduced through the mouth, and advanced to the jejunum. The upper GI endoscopy was accomplished without difficulty. The patient tolerated the procedure well. Findings: The examined esophagus was normal. Evidence of a gastric bypass was found. A gastric pouch with a 5 cm length from the GE junction to the gastrojejunal anastomosis was found containing no mucosal erosive changes. The staple line appeared intact. The gastrojejunal anastomosis was characterized by edema, an intact appearance and moderate stenosis. This was not traversed. This was stented with axios 15x10 enteral stent. The examined jejunum was normal. _ Impression: - Normal esophagus. - Gastric bypass with a pouch 5 cm in length and intact staple line. Gastrojejunal anastomosis characterized by edema, an intact appearance and moderate stenosis. Prosthesis placed. - Normal examined jejunum. - No specimens collected. Recommendation: - [facility]. - Resume previous diet. - Continue present medications. Procedure Code(s): --- Professional --- 71166, Esophagogastroduoden oscopy, flexible, transoral; with placement of endoscopic stent (includes pre- and post-dilation and guide wire passage, when performed) --- Technical --- 60922, Esophagogastroduoden oscopy, flexible, transoral; with placement of endoscopic stent (includes pre- and post-dilation and guide wire passage, when performed) Diagnosis Code(s): --- Professional --- Z98.84, Bariatric surgery status K95.89, Other complications of other bariatric procedure R13.10, Dysphagia, unspecified Z09, Encounter for follow-up examination after completed treatment for conditions other than malignant neoplasm Z98.0, Intestinal bypass and anastomosis status --- Technical --- Z98.84, Bariatric surgery status K95.89, Other complications of other bariatric procedure R13.10, Dysphagia, unspecified Z09, Encounter for follow-up examination after completed treatment for conditions other than malignant neoplasm Z98.0, Intestinal bypass and anastomosis status CPT copyright 2022 [employer]. All rights reserved. The codes documented in this report are preliminary and upon hims coder review may be revised to meet current compliance requirements. Silvestre Phelps MD 08/26/2025 8:04:45 AM Number of Addenda: 0 Note Initiated On: 08/26/2025 7:42 AM [facility] 08/26/2025 7:42 AM CDT Narrative Procedure Note Silvestre Phelps MD - 08/26/2025 8:05 AM CDT Plan: Phase I diet Advance as tolerated us Silvestre Phelps MD GI PROCEDURE ORDERABLES Edite d Result - Final [facility] [place] [address] * CARDIAC EKG ORDER (08/08/2025 9:33 AM CDT) Narrative 08/08/2025 9:33 AM CDT Ordered by an unspecified provider. us Scanned Document CARDIAC SERVICES ORDERABLES Fin al Result * VITAMIN D 25-HYDROXY (08/08/2025 3:18 AM CDT) Vitamin D, 25 Hydroxy 39.0 30 - 80 ng/mL 08/08/2025 4:08 AM CDT [facility] Blood BLOOD SPECIMEN / Unknown Venipuncture / Unknown 08/08/2025 3:18 AM CDT 08/08/2025 3:21 AM CDT Narrative [facility] - 08/08/2025 4:08 AM CDT Vitamin D Status: Deficiency <20 ng/mL Insufficiency 20-30 ng/mL Sufficiency 30-100 ng/mL Toxicity >100 ng/mL us Chin Mcleod MD LAB - CHEMISTRY ORDERABLES F inal Result [facility] [id number] [place] [address] * ETT LINE PERFORMABLE (08/07/2025 10:32 AM CDT) Narrative Jose Dinero APRN-CRNA - 08/07/2025 10:32 AM CDT Jose Dinero APRN-CRNA 08/07/2025 10:35 AM Endotracheal Tube Placement: Patient Location: OR. Intubation Event Date/Time: 08/07/2025 10:23 AM Procedure: intubation ([id number]) Procedure Section: Sedation: under general anesthesia. Indications for Airway Management: anesthesia Procedure pretreatments used? No Induction: standard IV Patient Position: sniffing Mask Ventilation: easy. Blade Type: Ilsa Blade Size: 3 Laryngoscopy View: grade 1 (full cords) Intubation Adjuncts: stylet Tube: endotracheal tube Placement: oral Tube type: cuff - inflated Tube Size (MM): 7 Depth of Insertion (CM): 22 Measured From: lips Cuff volume (mL): 6 Cuff Inflated With: air Number of Attempts: 1. Placement Verified By: direct visualization, bilateral breath sounds, chest auscultation and CO2 monitor Tube secured with: adhesive tape. Dentition unchanged? Yes Difficult Airway? No. Procedure Start Time: 08/07/2025 10:23 AM. Staff Section Anesthesia Provider: Jose Dinero APRN-CRNA, Performed the procedure Additional Comments: Teeth, lips and oropharynx in preoperative condition. us Zoë Waldron DO GENERAL ANESTHESIA ORDERABLES F inal Result * EKG 12-LEAD (08/07/2025 9:29 AM CDT) Ventricular Rate 86 BPM [facility] Atrial Rate 86 BPM [facility] P-R Interval 154 ms [facility] QRS Duration ms 76 ms [facility] Q-T Interval ms 398 ms [facility] QTC Calculation (Bezet) 476 ms [facility] Calculated P Noble 35 degrees [facility] Calculated R Noble 16 degrees [facility] Calculated T Noble 47 degrees [facility] Interpretation EKG Normal sinus rhythm Normal ECG When compared with ECG of 24-APR-2025 07:57, Nonspecific T wave abnormality , improved in Lateral leads Confirmed by PALLAVI RUEDA, KARIN SEXTON ([id number]) on 08/07/2025 12:26:11 PM [facility] 08/07/2025 9:29 AM CDT 08/07/2025 12:26 PM CDT us Sandro Moore MD ECG ORDERABLES Edited Result - Final [facility] * CT Chest Abdomen Pelvis Wo Cont (08/07/2025 9:29 AM CDT) Anatomical Region Laterality Modality Chest, Abdomen, Pelvis Computed Tomography 08/07/2025 1:48 PM CDT Addenda Addendum by Shaun Ratliff MD on 08/07/2025 2:27 PM CDT Findings were discussed with Dr. Mcleod by telephone conversation using read back verification at 2:24 PM CDT on 08/07/2025 > Interpreting Provider: Shaun Ratliff MD on 08/07/2025 2:25 PM Impressions 08/07/2025 2:21 PM CDT Impression: *Small to moderate amount of free intraperitoneal air most consistent with GI tract perforation. *No definite extravasation of the high density material present within the gastric pouch and proximal jejunum > Interpreting Provider: Shaun Ratliff MD on 08/07/2025 2:21 PM Narrative 08/07/2025 2:21 PM CDT PROCEDURE: CT CHEST ABDOMEN PELVIS WO CONT DATE/TIME OF EXAM: 08/07/2025 9:29 AM CLINICAL INFORMATION: None relevant/not provided if blank. Indication: R10.9: Abdominal pain, unspecified abdominal location COMPARISON: CT abdomen pelvis March 02, 2019 TECHNIQUE: Axial CT images of the chest, abdomen, and pelvis were obtained without intravenous contrast. Coronal and sagittal multiplanar reformatted images were created. CT scan was obtained using dose optimization techniques as appropriate to a performed exam to include AEC and Adjustment of mA and/or kV according to patient size. Simple appearing renal cysts do not require imaging follow-up. Pulmonary nodule follow-up recommendations are per Fleischner's [place] [employer] guidelines. CONTRAST: none Findings: CT chest: Thoracic inlet: Unremarkable. The patient's neck was included in the [id number]-[id number]. No definite soft tissue abnormalities of the neck identified. Cervical spine is grossly unremarkable in appearance. Axilla: Unremarkable Chest wall: Unremarkable Mediastinum: Heart size upper normal. Moderate coronary artery calcification. No adenopathy. Central airways clear. No pneumomediastinum. No significant inflammation adjacent to the mediastinal esophagus. Thoracic aorta:Grossly unremarkable Radha: Unremarkable Lungs: Clear. No pneumothorax. No pleural effusion. Bones: Unremarkable CT Abdomen/pelvis: Liver: Normal Gallbladder/bile ducts: Cholecystectomy. No biliary duct dilatation. Pancreas: Normal Spleen: Normal Adrenals: Normal Kidneys: Bilateral simple appearing renal cysts. Simple appearing renal cysts do not require dedicated imaging follow-up. No hydronephrosis. Ureters: normal Bladder: Normal Pelvic Structures: Calcification within the lower uterus which may represent a small calcified fibroid. Abdominal aorta: No abdominal aortic aneurysm (infrarenal aorta measures less than 3 cm). No significant atherosclerotic disease. Other vessels:No significant abnormalities Stomach: Status post gastric bypass procedure. Small Bowel: Unremarkable Large Bowel: Normal. The appendix is normal Lymph Nodes: No adenopathy Peritoneal Cavity: Mild to moderate amount of free intraperitoneal air. No definite evidence of extravasation of high density material from the patient's gastric pouch or proximal jejunum. Bones: Normal Abdominal Wall: Normal Procedure Note Shaun Ratliff MD - 08/07/2025 PROCEDURE: CT CHEST ABDOMEN PELVIS WO CONT DATE/TIME OF EXAM: 08/07/2025 9:29 AM CLINICAL INFORMATION: None relevant/not provided if blank. Indication: R10.9: Abdominal pain, unspecified abdominal location COMPARISON: CT abdomen pelvis March 02, 2019 TECHNIQUE: Axial CT images of the chest, abdomen, and pelvis were obtained without intravenous contrast. Coronal and sagittal multiplanar reformattedimages were created. CT scan was obtained using dose optimization techniques as appropriate to a performed exam to include AEC and Adjustment of mAand/or kV according to patient size. Simple appearing renal cysts do notrequire imaging follow-up. Pulmonary nodule follow-up recommendations are per Fleischner's [place] [employer] guidelines. CONTRAST: none Findings: CT chest: Thoracic inlet: Unremarkable. The patient's neck was included in the [id number]-uy-[id number]. No definite soft tissue abnormalities of the neck identified. Cervical spine is grossly unremarkable in appearance. Axilla: Unremarkable Chest wall: Unremarkable Mediastinum: Heart size upper normal. Moderate coronary artery calcification. No adenopathy. Central airways clear. Nopneumomediastinum. No significant inflammation adjacent to the mediastinal esophagus. Thoracic aorta:Grossly unremarkable Radha: Unremarkable Lungs: Clear. No pneumothorax. No pleural effusion. Bones: Unremarkable CT Abdomen/pelvis: Liver: Normal Gallbladder/bile ducts: Cholecystectomy. No biliary duct dilatation. Pancreas: Normal Spleen: Normal Adrenals: Normal Kidneys: Bilateral simple appearing renal cysts. Simple appearing renal cysts do not require dedicated imaging follow-up. No hydronephrosis. Ureters: normal Bladder: Normal Pelvic Structures: Calcification within the lower uterus which may represent a small calcified fibroid. Abdominal aorta: No abdominal aortic aneurysm (infrarenal aorta measures less than 3 cm). No significant atherosclerotic disease. Other vessels:No significant abnormalities Stomach: Status post gastric bypass procedure. Small Bowel: Unremarkable Large Bowel: Normal. The appendix is normal Lymph Nodes: No adenopathy Peritoneal Cavity: Mild to moderate amount of free intraperitoneal air.No definite evidence of extravasation of high density material from the patient's gastric pouch or proximal jejunum. Bones: Normal Abdominal Wall: Normal Impression: *Small to moderate amount of free intraperitoneal air most consistentwith GI tract perforation. *No definite extravasation of the high density material present withinthe gastric pouch and proximal jejunum > Interpreting Provider: Shaun Ratliff MD on 08/07/2025 2:21 PM us Chin Mcleod MD CT ORDERABLES Edited Resul t - Final * CT ANGIO BRAIN NECK STROKE (08/07/2025 9:13 AM CDT) Anatomical Region Laterality Modality Head Computed Tomogra phy 08/07/2025 9:32 AM CDT Impressions 08/07/2025 9:37 AM CDT IMPRESSION: NO HEMODYNAMICALLY SIGNIFICANT STENOSIS. CTA Brain: origin bilateral posterior cerebral arteries. The internal carotid arteries, middle cerebral arteries, anterior cerebral arteries, vertebral arteries, posterior cerebral arteries, basilar artery, and branch vessels of the [place] are widely patent without evidence of vessel stenosis or vessel occlusion. No intracranial aneurysms are identified. IMPRESSION: NO FLOW-LIMITING INTRACRANIAL ARTERIAL STENOSIS CT CEREBRAL PERFUSION ANALYSIS CLINICAL INDICATION: Acute slurred speech. Acute stroke, CVA. TECHNIQUE: Targeted axial CT imaging of the brain was performed following 80 cc Isovue-370 intravenous contrast administration. The cerebral blood volume, cerebral blood flow, mean transit time, and time to peak was computed on an independent workstation. All CT scans at [facility] are performed using dose optimization techniques as appropriate to a performed exam to include AEC and Adjustment of mA and/or kV according to patient size. FINDINGS: There is symmetric bilateral cerebral blood flow, cerebral blood volume, mean transit time, and time to peak. There are no focal perfusion abnormalities. IMPRESSION: NORMAL CT CEREBRAL PERFUSION ANALYSIS > Interpreting Provider: Carly Lainez MD on 08/07/2025 9:37 AM Narrative 08/07/2025 9:[address] ANGIOGRAPHY NECK WITH CONTRAST CT ANGIOGRAPHY HEAD WITH CONTRAST CT 3D RECONSTRUCTION CLINICAL INDICATION: Acute slurred speech. Acute stroke, CVA. TECHNIQUE: Axial CT images from the transverse aortic arch through the cranial vertex were obtained following the administration of 80 cc Isovue-370 intravenous contrast. Multiplanar reformatted, maximum intensity projection, and 3D volume rendered reconstructions of the arterial vasculature of the neck and brain was performed on an independent workstation. All CT scans at [facility] are performed using dose optimization techniques as appropriate to a performed exam to include AEC and Adjustment of mA and/or kV according to patient size. [employer] software was utilized for large vessel occlusion detection. FINDINGS: CTA Neck: Indirect assessment of the distal portions of the bilateral internal carotid arteries relative to the proximal portions reveals no hemodynamically significant stenosis. There is wide patency of the common carotid, internal carotid, external carotid, and vertebral arteries. There is no evidence of vessel stenosis or vessel occlusion. Procedure Note Carly Lainez MD - 08/07/2025 CT ANGIOGRAPHY NECK WITH CONTRAST CT ANGIOGRAPHY HEAD WITH CONTRAST CT 3D RECONSTRUCTION CLINICAL INDICATION: Acute slurred speech. Acute stroke, CVA. TECHNIQUE: Axial CT images from the transverse aortic arch through the cranial vertex were obtained following the administration of 80 cc Isovue-370 intravenous contrast. Multiplanar reformatted, maximumintensity projection, and 3D volume rendered reconstructions of the arterial vasculature of the neck and brain was performed on an independent workstation. All CT scans at [facility] are performed using dose optimization techniques as appropriate to a performed exam to include AEC andAdjustment of mA and/or kV according to patient size. [employer] software was utilizedfor large vessel occlusion detection. FINDINGS: CTA Neck: Indirect assessment of the distal portions of the bilateral internal carotid arteries relative to the proximal portions reveals no hemodynamically significant stenosis. There is wide patency of thecommon carotid, internal carotid, external carotid, and vertebral arteries.There is no evidence of vessel stenosis or vessel occlusion. IMPRESSION: NO HEMODYNAMICALLY SIGNIFICANT STENOSIS. CTA Brain: origin bilateral posterior cerebral arteries. The internal carotid arteries, middle cerebral arteries, anteriorcerebral arteries, vertebral arteries, posterior cerebral arteries, basilarartery, and branch vessels of the [place] are widely patent without evidence of vessel stenosis or vessel occlusion. No intracranialaneurysms are identified. IMPRESSION: NO FLOW-LIMITING INTRACRANIAL ARTERIAL STENOSIS CT CEREBRAL PERFUSION ANALYSIS CLINICAL INDICATION: Acute slurred speech. Acute stroke, CVA. TECHNIQUE: Targeted axial CT imaging of the brain was performedfollowing 80 cc Isovue-370 intravenous contrast administration. The cerebral blood volume, cerebral blood flow, mean transit time, and time to peak was computed on an independent workstation. All CT scans at [facility] areperformed using dose optimization techniques as appropriate to a performed exam to include AEC and Adjustment of mA and/or kV according to patient size. FINDINGS: There is symmetric bilateral cerebral blood flow, cerebral blood volume, mean transit time, and time to peak. There are no focal perfusion abnormalities. IMPRESSION: NORMAL CT CEREBRAL PERFUSION ANALYSIS > Interpreting Provider: Carly Lainez MD on 08/07/2025 9:37 AM Sandro Moore MD CT ORDERABLES Final Result * CT Cerebral Perfusion Analysis (08/07/2025 9:12 AM CDT) Anatomical Region Laterality Modality Head Computed Tomogra phy 08/07/2025 9:32 AM CDT Impressions 08/07/2025 9:37 AM CDT IMPRESSION: NO HEMODYNAMICALLY SIGNIFICANT STENOSIS. CTA Brain: origin bilateral posterior cerebral arteries. The internal carotid arteries, middle cerebral arteries, anterior cerebral arteries, vertebral arteries, posterior cerebral arteries, basilar artery, and branch vessels of the solomon of [place] are widely patent without evidence of vessel stenosis or vessel occlusion. No intracranial aneurysms are identified. IMPRESSION: NO FLOW-LIMITING INTRACRANIAL ARTERIAL STENOSIS CT CEREBRAL PERFUSION ANALYSIS CLINICAL INDICATION: Acute slurred speech. Acute stroke, CVA. TECHNIQUE: Targeted axial CT imaging of the brain was performed following 80 cc Isovue-370 intravenous contrast administration. The cerebral blood volume, cerebral blood flow, mean transit time, and time to peak was computed on an independent workstation. All CT scans at [facility] are performed using dose optimization techniques as appropriate to a performed exam to include AEC and Adjustment of mA and/or kV according to patient size. FINDINGS: There is symmetric bilateral cerebral blood flow, cerebral blood volume, mean transit time, and time to peak. There are no focal perfusion abnormalities. IMPRESSION: NORMAL CT CEREBRAL PERFUSION ANALYSIS > Interpreting Provider: Carly Lainez MD on 08/07/2025 9:37 AM Narrative 08/07/2025 9:[address] ANGIOGRAPHY NECK WITH CONTRAST CT ANGIOGRAPHY HEAD WITH CONTRAST CT 3D RECONSTRUCTION CLINICAL INDICATION: Acute slurred speech. Acute stroke, CVA. TECHNIQUE: Axial CT images from the transverse aortic arch through the cranial vertex were obtained following the administration of 80 cc Isovue-370 intravenous contrast. Multiplanar reformatted, maximum intensity projection, and 3D volume rendered reconstructions of the arterial vasculature of the neck and brain was performed on an independent workstation. All CT scans at [facility] are performed using dose optimization techniques as appropriate to a performed exam to include AEC and Adjustment of mA and/or kV according to patient size. [employer] software was utilized for large vessel occlusion detection. FINDINGS: CTA Neck: Indirect assessment of the distal portions of the bilateral internal carotid arteries relative to the proximal portions reveals no hemodynamically significant stenosis. There is wide patency of the common carotid, internal carotid, external carotid, and vertebral arteries. There is no evidence of vessel stenosis or vessel occlusion. Procedure Note Carly Lainez MD - 08/07/2025 CT ANGIOGRAPHY NECK WITH CONTRAST CT ANGIOGRAPHY HEAD WITH CONTRAST CT 3D RECONSTRUCTION CLINICAL INDICATION: Acute slurred speech. Acute stroke, CVA. TECHNIQUE: Axial CT images from the transverse aortic arch through the cranial vertex were obtained following the administration of 80 cc Isovue-370 intravenous contrast. Multiplanar reformatted, maximumintensity projection, and 3D volume rendered reconstructions of the arterial vasculature of the neck and brain was performed on an independent workstation. All CT scans at [facility] are performed using dose optimization techniques as appropriate to a performed exam to include AEC andAdjustment of mA and/or kV according to patient size. [employer] software was utilizedfor large vessel occlusion detection. FINDINGS: CTA Neck: Indirect assessment of the distal portions of the bilateral internal carotid arteries relative to the proximal portions reveals no hemodynamically significant stenosis. There is wide patency of thecommon carotid, internal carotid, external carotid, and vertebral arteries.There is no evidence of vessel stenosis or vessel occlusion. IMPRESSION: NO HEMODYNAMICALLY SIGNIFICANT STENOSIS. CTA Brain: origin bilateral posterior cerebral arteries. The internal carotid arteries, middle cerebral arteries, anteriorcerebral arteries, vertebral arteries, posterior cerebral arteries, basilarartery, and branch vessels of the sol[place] of [place] are widely patent without evidence of vessel stenosis or vessel occlusion. No intracranialaneurysms are identified. IMPRESSION: NO FLOW-LIMITING INTRACRANIAL ARTERIAL STENOSIS CT CEREBRAL PERFUSION ANALYSIS CLINICAL INDICATION: Acute slurred speech. Acute stroke, CVA. TECHNIQUE: Targeted axial CT imaging of the brain was performedfollowing 80 cc Isovue-370 intravenous contrast administration. The cerebral blood volume, cerebral blood flow, mean transit time, and time to peak was computed on an independent workstation. All CT scans at [facility] areperformed using dose optimization techniques as appropriate to a performed exam to include AEC and Adjustment of mA and/or kV according to patient size. FINDINGS: There is symmetric bilateral cerebral blood flow, cerebral blood volume, mean transit time, and time to peak. There are no focal perfusion abnormalities. IMPRESSION: NORMAL CT CEREBRAL PERFUSION ANALYSIS > Interpreting Provider: Carly Lainez MD on 08/07/2025 9:37 AM Milton Pollard MD CT ORDERABLES Final Result * CT HEAD NON CONTRAST (08/07/2025 9:05 AM CDT) Anatomical Region Laterality Modality Head Computed Tomogra phy 08/07/2025 9:14 AM CDT Impressions 08/07/2025 9:16 AM CDT IMPRESSION: No intracranial hemorrhage or other acute abnormality by CT. > Interpreting Provider: Roseanna Bergeron MD on 08/07/2025 9:16 AM Narrative 08/07/2025 9:16 AM CDT PROCEDURE: CT HEAD WO CONTRAST DATE/TIME OF EXAM: 08/07/2025 9:05 AM CLINICAL INFORMATION: None relevant/not provided if blank. Indication: R53.1: Weakness Additional History: COMPARISON: None. TECHNIQUE: Noncontrast CT brain was performed utilizing standard protocol. CT dose reduction technique was used, including Automated Exposure Control. FINDINGS: The ventricular system is within normal limits. There is no evidence of midline shift, focal area of abnormal attenuation, acute intracranial hemorrhage. The mastoid air cells and paranasal sinuses are unremarkable. The orbits are grossly unremarkable. Procedure Note Roseanna Bergeron MD - 08/07/2025 PROCEDURE: CT HEAD WO CONTRAST DATE/TIME OF EXAM: 08/07/2025 9:05 AM CLINICAL INFORMATION: None relevant/not provided if blank. Indication: R53.1: Weakness Additional History: COMPARISON: None. TECHNIQUE: Noncontrast CT brain was performed utilizing standard protocol. CT dose reduction technique was used, including Automated ExposureControl. FINDINGS: The ventricular system is within normal limits. There is no evidence of midline shift, focal area of abnormal attenuation, acute intracranial hemorrhage. The mastoid air cells and paranasal sinuses areunremarkable. The orbits are grossly unremarkable. IMPRESSION: No intracranial hemorrhage or other acute abnormality by CT. > Interpreting Provider: Roseanna Bergeron MD on 08/07/2025 9:16 AM Chin Mcleod MD CT ORDERABLES Final Result * TROPONIN-I HIGH SENSITIVE (08/07/2025 9:04 AM CDT) Troponin I High Sensitive <3 <=14 ng/L 08/07/2025 9:31 AM CDT [facility] Blood BLOOD SPECIMEN / Unknown Venipuncture / Unknown 08/07/2025 9:04 AM CDT 08/07/2025 9:09 AM CDT Sandro Moore MD LAB - CHEMISTRY ORDERABLES Final Result Performing Organization Address [facility] Co de Phone Number [facility] [address] [place] [phone] * PTT (08/07/2025 9:04 AM CDT) PTT 31.3 23.0 - 38.4 sec 08/07/2025 9:22 AM CDT [facility] Blood BLOOD SPECIMEN / Unknown Venipuncture / Unknown 08/07/2025 9:04 AM CDT 08/07/2025 9:09 AM CDT Narrative [facility] - 08/07/2025 9:22 AM CDT Heparin Therapeutic Range for PTT: 69.0 - 110.0 seconds. Sandro Moore MD LAB - COAGULATION ORDERABLES Fin al Result Performing Organization Address [facility] Co de Phone Number [facility] [address] [place] [phone] * PT-INR (08/07/2025 9:04 AM CDT) PT 13.5 12.1 - 14.8 sec 08/07/2025 9:22 AM CDT [facility] INR 1.0 0.9 - 1.1 08/07/2025 9:22 AM CDT [facility] Blood BLOOD SPECIMEN / Unknown Venipuncture / Unknown 08/07/2025 9:04 AM CDT 08/07/2025 9:09 AM CDT Narrative [facility] - 08/07/2025 9:22 AM CDT Conventional Warfarin Anticoagulant Therapy: INR Reference Range: 2.0-3.0 Intensive Warfarin Anticoagulant Therapy: INR Reference Range: 2.5-3.5 Sandro Moore MD LAB - COAGULATION ORDERABLES Fin al Result Performing Organization Address [facility] Co de Phone Number [facility] [id number] [place] [phone] * ISTAT CREATININE (08/07/2025 8:59 AM CDT) Creatinine POCT 0.80 0.60 - 1.30 mg/dL 08/07/2025 4:57 PM CDT [facility] eGFR by CKD-EPI >90 >90 mL/min/1.7 3 m2 08/07/2025 4:57 PM CDT [facility] Blood BLOOD SPECIMEN / Unknown 08/07/2025 8:59 AM CDT 08/07/2025 4:57 PM CDT us Sandro Moore MD LAB - POINT OF CARE ORDERABLES F inal Result Performing Organization Address [facility] de Phone Number [facility] [address] [place] [phone] * INR WHOLE BLOOD - POINT OF CARE (IP) STROKE (08/07/2025 8:57 AM CDT) INR 0.9 0.9 - 1.2 08/07/2025 12:22 PM CDT [facility] Blood BLOOD SPECIMEN / Unknown 08/07/2025 8:57 AM CDT 08/07/2025 12:22 PM CDT us Chin Mcleod MD LAB - POINT OF CARE ORDERABL ES Final Result Performing Organization Address [facility] Co de Phone Number [facility] [id number] [place] [phone] * XR Chest 1Vw Portable (08/07/2025 8:41 AM CDT) Anatomical Region Laterality Modality Chest Computed Radiogr aphy 08/07/2025 8:49 AM CDT Impressions 08/07/2025 8:50 AM CDT IMPRESSION: No acute cardiopulmonary abnormalities. > Interpreting Provider: Teetee Rogel MD on 08/07/2025 8:50 AM Narrative 08/07/2025 8:50 AM CDT PROCEDURE: XR CHEST 1VW PORTABLE DATE/TIME OF EXAM: 08/07/2025 8:41 AM CLINICAL INFORMATION: Neck pain Indication: M54.2: Neck pain Additional History: COMPARISON: February 28, 2017 FINDINGS: The heart size is normal. The pulmonary vascularity is within normal limits. The lungs are moderately well-expanded and clear. No pleural effusion is seen. Procedure Note Teetee Rogel MD - 08/07/2025 PROCEDURE: XR CHEST 1VW PORTABLE DATE/TIME OF EXAM: 08/07/2025 8:41 AM CLINICAL INFORMATION: Neck pain Indication: M54.2: Neck pain Additional History: COMPARISON: February 28, 2017 FINDINGS: The heart size is normal. The pulmonary vascularity is within normal limits. The lungs are moderately well-expanded and clear. No pleural effusion is seen. IMPRESSION: No acute cardiopulmonary abnormalities. > Interpreting Provider: Teetee Rogel MD on 08/07/2025 8:50 AM Chin Mcleod MD DIAGNOSTIC IMAGING ORDERABLE S Final Result * HCG URINE QUAL POCT NOTIFICATION (08/07/2025 7:30 AM CDT) Comment Notification Label Only - See Separate Report 08/07/2025 7:30 AM CDT [facility] Urine URINE / Unknown 6:12 AM CDT Chin Mcleod MD LAB - URINALYSIS ORDERABLES Final Result [facility] [address] [place] [address] * EGD (08/07/2025 6:35 AM CDT) Report Endoscopy POC _ Patient Name: Emma Figueroa Procedure Date: 08/07/2025 6:35 AM Date of : 1985 Admit Type: Outpatient Age: 40 Gender: Female Attending MD: Chin Mcleod MD, _ Procedure: Upper GI endoscopy Indications: Dysphagia Providers: Chin Mcleod MD (Doctor) Referring MD: Andrei Clark MD (Referring MD) Medicines: Monitored Anesthesia Care Complications: No immediate complications. _ Estimated Blood Loss: Estimated blood loss: none. Procedure: Pre-Anesthesia Assessment: - Prior to the procedure, a History and Physical was performed, and patient medications and allergies were reviewed. The patient's tolerance of previous anesthesia was also reviewed. The risks and benefits of the procedure and the sedation options and risks were discussed with the patient. All questions were answered, and informed consent was obtained. Prior Anticoagulants: The patient has taken no anticoagulant or antiplatelet agents. ASA Grade Assessment: III - A patient with severe systemic disease. After reviewing the risks and benefits, the patient was deemed in satisfactory condition to undergo the procedure. After obtaining informed consent, the endoscope was passed under direct vision. Throughout the procedure, the patient's blood pressure, pulse, and oxygen saturations were monitored continuously. The Endoscope was introduced through the mouth, and advanced to the proximal jejunum. The upper GI endoscopy was accomplished without difficulty. The patient tolerated the procedure well. Findings: The Z-line was regular and was found 35 cm from the incisors. Evidence of a Chantale-en-Y gastrojejunostomy was found. 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 This was traversed. A TTS dilator was passed through the scope. Dilation with a 14-15-16.5-18-19 mm x 5.5 cm Merit Elation balloon (to a maximum balloon size of 19 mm) dilator was performed. The dilation site was examined following endoscope reinsertion and showed moderate mucosal disruption and complete resolution of luminal narrowing. Estimated blood loss was minimal. The examined jejunum was normal. _ Impression: - Z-line regular, 35 cm from the incisors. - Chantale-en-Y gastrojejunostomy with gastrojejunal anastomosis characterized by moderate stenosis. Dilated with a 14-15-16.5-18-19 mm x 5.5 cm Merit Elation balloon (to a maximum balloon size of 19 mm). - Normal examined jejunum. - No specimens collected. Recommendation: - Discharge patient to home. - Resume previous diet. - Continue present medications. Procedure Code(s): --- Professional --- 97233, Esophagogastroduoden oscopy, flexible, transoral; with dilation of gastric/duodenal stricture(s) (eg, balloon, bougie) --- Technical --- 60814, Esophagogastroduoden oscopy, flexible, transoral; with dilation of gastric/duodenal stricture(s) (eg, balloon, bougie) Diagnosis Code(s): --- Professional --- Z98.0, Intestinal bypass and anastomosis status R13.10, Dysphagia, unspecified --- Technical --- Z98.0, Intestinal bypass and anastomosis status R13.10, Dysphagia, unspecified CPT copyright 2022 [employer]. All rights reserved. The codes documented in this report are preliminary and upon hims coder review may be revised to meet current compliance requirements. Chin Mcleod Chin Mcleod MD 08/07/2025 7:25:44 AM This report has been signed electronically. Number of Addenda: 0 Note Initiated On: 08/07/2025 6:35 AM [facility] 08/07/2025 6:35 AM CDT Narrative Procedure Note Chin Mcleod MD - 08/07/2025 7:26 AM CDT EGD completed. Mod stricture, dilated to 19 mm A full PDF copy of the report with photos is in the results and/or mediatab for your review. Please refer to this for full details of theprocedure. Phase 1-2 diet today Then advance as tolerated Continue PPI carafate Chin Mcleod MD Diana Cochran LEADED GLASS INSTALLER-ENVIRONMENTAL COMPLIANCE TECHNICIAN GI PROCEDURE MARCEL TEIXEIRA Edited Result - [place] [address] from Last 3 Months Insurance [employer] Advance Directives * Full Code (Latest Code Status on File) Date Activated Date Inactivated Comments 08/07/2025 12:03 PM 08/09/2025 3:19 PM * Full Code Date Activated Date Inactivated Comments 05/26/2025 11:25 AM 06/02/2025 11:50 AM Care Teams Web Ui Designer Relationship Specialty Start Date End Date Andrei Clark MD [address] [place] [address] PCP - General Internal Medicine 04/24/25
--- OUTSIDE RECORDS SUMMARY | 2025-10-21 03:24 | XMS_ITS | Clinical Summary ---
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 Pérez. Recs: 1. Call [facility] to make appt (she understands she needs to be the one to call) for CBT for FND, anxiety, depression. 2. Consider Valium after I discuss with Dr. Pérez. 3. Continue with psychiatry. 4. Start positive self talk and meditative exercises for spells. 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/2020 2:55 PM REGIONAL ENGINEER): She has abnormal involuntary movements including vocalizations, [...] video EEG (scheduled for next month at [facility]) to clarify whether any aspect [...] History Medical History Date Comments Diabetes mellitus Renal disorder Polycystic ovarian disease DVT (deep venous thrombosis) Idiopathic intracranial hypertension Polycystic kidney disease CKD [...] more drinks on one occasion? Never 09/30/2022 Personal Safety Answer Date Recorded Have you ever been in or are you currently in a harmful physical or emotional relationship or is someone making you feel afraid or unsafe? Denies 06/23/2025 Comments No Sex and Gender Information Value Date Recorded Sex Assigned at Not on file Legal Sex Female 4:48 PM REGIONAL ENGINEER Gender Identity Not on file Sexual Orientation Not on file Obstetrics History Para Term AB IAB SAB Ectopic Multiple Livin g Live Births 2 2 2 2 2 Date Outcome GA Total Labor Labor/2nd/3rd Weight Sex Type Anes PTL Lexus A1 A5 Name Clin Term Term Last Filed Vital Signs Vital Sign Reading Time Taken Comments Blood Pressure 134/75 06/23/2025 5:00 AM CDT Pulse 83 06/23/2025 5:00 AM CDT Temperature 36.6 C (97.9 F) 06/23/2025 2:43 AM CDT Respiratory Rate 19 06/23/2025 5:00 AM CDT Oxygen Saturation 99% 06/23/2025 5:00 AM CDT Inhaled Oxygen Concentration - - Weight 85.3 kg (188 lb) 06/23/2025 2:43 AM CDT Height 162.6 cm (5' 4) 06/23/2025 2:43 AM CDT Body Mass Index 32.27 06/23/2025 2:43 AM CDT Plan of Treatment Health Maintenance Due Date Last Done Comments Albumin Creatinine Ratio, Urine 1985 Breast Cancer Screening-Mammogram 1985 Cervical Cancer Screening 1985 Depression Screening 1985 Hepatitis C Screening 1985 Foot Exam 1985 Lipid Panel 1985 DTaP/Tdap/Td Vaccine (1 - Tdap) 1994 Varicella Vaccines (1 of 2 - 13+ 2-dose series) 1996 Hepatitis B Screening 2001 Regular Well Visit/Exam 18-64 2001 HPV Vaccines (1 - 3-dose SCD M series) 2010 Dilated Eye Exam 02/16/2020 02/15/2019, 02/07/2019 Pneumococcal vaccine <65 (2 of 2 - PCV) 06/01/2020 06/01/2019 Influenza Vaccine (#1) 2025 Hemoglobin A1C 11/27/2025 05/27/2025, 10/02/2019, 08/23/2019, Additional history exists eGFR 06/23/2026 06/23/2025, 09/21, 09/21/2022 Procedures Procedure Name Priority Date/Time Associated Diagnosis Comments EGFR STAT 06/23/2025 2:48 AM CDT HEMOGLOBIN A1C STAT 08/23/2019 5:28 PM CDT from Last 3 Months or Most Recently Relevant to Health Maintenance Results * eGFR (06/23/2025 2:48 AM CDT) eGFR 81 >=60 mL/min/1. 73 m2 Comment: Interpretive Data Reference Interval Normal >/= [...] interpretive data was last reviewed 2021. Blood 06/23/2025 2:48 AM CDT 06/23/2025 2:51 AM CDT us Oscar Woods Jr., MD LAB BLOOD ORDERABLES Fi nal Result [facility] [address] [facility] Department [place] [address] * (ABNORMAL) Hemoglobin A1c (08/23/2019 5:28 PM CDT) Hgb A1C 11.1(H) 4.0 - 5.6 % [facility] Estimated Average Glucose 272 mg/dL [facility] Comment: The ADA recommends reporting an estimated Average Glucose (eAG) with all Hemoglobin A1c results using the equation derived from a study of 507 normal and diabetic adults. Minority populations were underrepresented and children were not included. (Diabetes Care 31:2545-9090, 2008). The eAG is not equivalent to a fasting glucose. Blood specimen (specimen) 08/23/2019 5:28 PM CDT 08/23/2019 6:04 PM CDT us Notinfile Unknown LAB BLOOD ORDERABLES Final Res ult [facility] [address] [place] [address] from Last 3 Months or Most Recently Relevant to Health Maintenance Insurance [facility] Member Subscriber Plan / Payer ( fective 2019-Present) Name:Kylee Guo Relation to Subscriber:Self Name:Kylee Guo Payer ID:[id number] (NAIC) Group ID:[id number] Type:H-umus Address: [address] [facility] [employer] [facility] [employer] Advance Directives For more information, please contact: [phone] * Full Code (Latest Code Status on File) Date Activated Date Inactivated Comments 01/25/2021 9:49 AM 01/31/2021 8:38 PM * Full Code Date Activated Date Inactivated Comments 02/11/2019 4:38 PM 02/13/2019 11:05 AM Care Teams Wreath And Garland Maker Relationship Specialty Start Date End Date Andrei Clark MD PCP - General Internal Medicine 12/11/20 Kandace Freedman OT Occupational Therapist Occupational Therapy 03/15/21 Christina Brunson MD [address] [place] [address] Obstetrics and Gynecology 08/02/22
--- OUTSIDE RECORDS SUMMARY | 2025-10-21 03:24 | XMS_ITS | Encounter Summary ---
Author Organization [facility] Address [address] [place] [address] Care Team Providers Care Commercial Pilot Name Role Phone Andrei Clark MD Primary Care Provider [phone] Encounter Details Date Type Department Care Team (Late st Contact Info) Description 10/09/2025 Results Follow-Up [facility] [id number] [place] [id number] [place] [id number] [id number] Social History Tobacco Use Types Packs/Day Years Used Date Smoking Tobacco: Former Cigarettes 0.3 Q uit: 06/30/2020 Passive Smoke Exposure: Never Smokeless Tobacco: Never Alcohol Use Standard Drinks/Week [...] Never 08/26/2025 Overall Financial Resource Strain (CARDIA) Anai r Date Recorded How hard is it for you to pa y for the very basics like food, housing, medical care, and heating? Not hard at all 08/26/2025 PHQ-2 Answer Date Recorded Patient Health Questionnaire-2 Score 6 10/09/2025 [place] [facility] - Occupational Stress Questionnaire Answer Date Recorded [...] any time in the past 12 m [facility], were you homeless or living in a senior care (including now)? No 08/26/2025 Comments No Sex and Gender Information Value Date Recorded Sex Assigned at Female 04/11/2025 11:15 AM CDT Legal Sex Female 6:27 AM TITLE CLOSER Gender Identity Not on file Sexual Orientation Not on file documented as of this encounter Functional Status * Is person deaf or have serious hearing difficulty? Answer Date of Assessment Author No 08/26/2025 6:34 AM Cassandra Hatfield RN * Is person blind or have serious difficulty seeing? Answer Date of Assessment Author No 08/26/2025 6:34 AM Cassandra Hatfield RN * Does person have serious difficulty walking/climbing stairs? Answer Date of Assessment Author No 08/26/2025 6:34 AM Cassandra Hatfield RN * Does person have difficulty dressing/bathing? Answer Date of Assessment Author No 08/26/2025 6:34 AM Cassandra Hatfield RN * Does person have difficulty doing errands alone? Answer Date of Assessment Author No 08/26/2025 6:34 AM Cassandra Hatfield RN * Over the past 2 weeks, how often have you been bothered by any of the following problems? Question Answer Date of Assessment Author Little interest or pleasure in doing things Nearly every day 10/09/2025 12:12 PM Graham Goldstein ae, MA Feeling down, depressed, or hopeless Nearly every day 10/09/2025 12:12 PM Yessenia Goldstein M A Patient Health Questionnaire-2 Score 6 10/09/2025 12:12 PM Yessenia Goldstein MA * Question Answer Date of Assessment Author Trouble falling or staying asleep, or sleeping too much Nearly every day 10/09/2025 12:12 PM Yessenia Goldstein M A Feeling tired or having little energy Nearly every day 10/09/2025 12:12 PM Yessenia Goldstein M A Poor appetite or overeating Not at all 10/09/2025 12 :12 PM Yessenia Goldstein MA Feeling bad about yourself - or that you are a failure or have let yourself or your family down Nearly every day 10/09/2025 12:12 PM Yessenia Glodstein M A Trouble concentrating on things, such as reading the newspaper or watching television Nearly every day 10/09/2025 12:12 PM Yessenia Goldstein M A Moving or speaking so slowly that other people could have noticed? Or the opposite - being so fidgety or restless that you have been moving around a lot more than usual. Nearly every day 10/09/2025 12:12 PM Yessenia Goldstein M A Thoughts that you would be better off or hurting yourself in some way Not at all 10/09/2025 12:12 PM Yessenia Goldstein MA Patient Health Questionnaire-9 Score 21 10/09/2025 12:12 PM Yessenia Goldstein MA documented as of this encounter Mental Status * Does person have difficulty concentrating/remembering/making decisions? Answer Entry Date Author No 08/26/2025 6:34 AM CDT Cassandra Ny RN documented in this encounter Plan of Treatment Upcoming Encounters Date Type Department Care Team (Late st Contact Info) Description 11/26/2025 12:30 PM TITLE CLOSER Office Visit [facility] [address] [place] [address], [address] [address] Diana Cochran, PLAYGROUND WORKER[employer] LEAD [id number] [phone] 05/26/2026 1:00 PM CDT Office Visit [facility] [address] [place] [address], [facility] [address] [place] [address] Diana Cochran, PLAYGROUND WORKER[employer]SECURITY TEAM LEAD [address] [facility] [address] [address] documented as of this encounter Visit Diagnoses Not on filedocumented in this encounter Care Teams Commercial Pilot Relationship Specialty Start Date End Date Andrei Clark MD [address] [facility] [place] [address] PCP - General Internal Medicine 04/24/25 documented as of this encounter
--- NOTE | 2025-10-21 07:21 | WPDHPUPDATE1 ---
History and Physical Update Update Date/Time: 10/21/25 07:21 History and Physical has been reviewed, including an updated exam of the patient. There are NO changes in the patient's condition. Risks, benefits, and alternatives have been discussed and questions answered. Patient agrees to proceed with procedure.
[2025-10-21 08:30] VITALS: BP 133/83; PULSE 76; RESP 16; TEMP 36.6; O2SAT 100
--- NOTE | 2025-10-21 09:06 | WPDANESEPPF ---
Anes - Initial Pre Proc Eval Procedure: Operation Date: 10/21/25 09:45 Proposed Procedures p Hysteroscopy Dilation and Curettage with Sera Endometrial Ablation - Alton Alves MD Date/Time: 10/21/25 09:06 Surgeon: Alton Alves MD Pre Op Diagnosis: abnormal uterine bleeding Patient Data Age: 40 Gender: F Height: 1.63 m Weight: 68.5 kg Allergies Allergy/AdvReac Type Severity Reaction Status Date / Time methocarbamol (From Robaxin) Allergy Intermediate Hives Verified 10/20/25 17:44 metoclopramide AdvReac Severe PANIC Verified 10/20/25 17:44 ATTACKS ondansetron AdvReac Severe PANIC Verified 10/20/25 17:44 ATTACKS prochlorperazine (From AdvReac Severe PANIC Verified 10/20/25 17:44 Compazine) ATTACKS promethazine AdvReac Severe PANIC Verified 10/20/25 17:44 ATTACKS adhesive tape AdvReac Intermediate Rash Verified 10/20/25 17:44 Home Medications ?Medication ?Instructions ?Recorded ?Confirmed ?Type bupropion HCl 75 mg tablet 75 mg PO TID 09/22/25 10/20/25 History omeprazole 20 mg capsule,delayed 20 mg PO DAILY 09/22/25 10/20/25 History release alprazolam 0.25 mg tablet 0.25 mg PO TID PRN anxiety 10/20/25 10/20/25 History biotin 1 mg capsule 1 mg PO DAILY 10/20/25 10/20/25 History calcium carbonate PO 10/20/25 History hydroxyzine HCl 25 mg tablet 25 mg PO TID 10/20/25 10/20/25 History Patient hx anesthesia problems: none Family hx anesthesia problems: none Results Review: All pre-operative results and documents have been reviewed as part of the pre-operative evaluation. 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 Anxiety Migraine headache Polycystic ovarian syndrome Gastroesophageal reflux disease Insulin dependent type 2 diabetes mellitus Hemoglobin A1c on 11/12/2020 was 7.9%. Dyslipidemia Empty sella syndrome Fibromyalgia Hypertension Surgical History Surgical History History of bowel resection (08/07/25) History of gastric bypass (05/26/25) History of esophagogastroduodenoscopy (EGD) History of unilateral oophorectomy History of bilateral salpingectomy History of tubal ligation Delivery by section xs 2 History of laparoscopic cholecystectomy (~2005) Family History Family History Father Diabetes mellitus Hypertension Myocardial infarct Heart disease Mother Diabetes mellitus Heart disease Sibling Narcolepsy and cataplexy Legal Guardian No problems noted. Grandparent Breast cancer Social History Social History Social History: The patient is and lives in [place] with her teenage son and daughter. She works for the [employer]. She smoked about a half a pack of cigarettes a day and quit in June 2020. No alcohol or illicit substance abuse. She designates her daughter Kiesha as her surrogate decision maker and she wishes to be a full code. Smoking packs per day: 1 Smoking cigarettes per day: 20.0 Years smoked: 20 Smoking pack-years: 20.00 Smoking status: Former smoker Tobacco type: cigarettes Second hand tobacco smoke exposure: Yes Smoking end date: 06/29/20 Alcohol intake: never Substance use: never Substance use type: does not use Other substance usage details: Previously used marijuana; denies currently Last use: DAILY Lack of Transportation: No Lack of Food: Never True Current Housing: I Have Housing Concerned About Future Housing: Decline to Answer Difficulty Paying Gas/Electric Bills: Decline to Answer Difficulty Paying for Meds: No Currently Unemployed: Decline to Answer Education: High School Diploma/GED Difficulty w/ Childcare or Family Care: No Living arrangements: with family Additional living arrangements comments: Occupation/Education: occupation Additional occupation/education comments: [employer] Gender identity (if verbalized by the patient): Female Sexual Orientation (if Verbalized by the Patient): Bisexual Spiritual care concerns: No Anes - Eval Final PreProcedure Day of Procedure 10/21/25 09:06 Patient weight: normal Heart: regular rate and rhythm Lungs: clear to auscultation Airway: Mallampati scale class III Neurological: alert and oriented Last oral intake: >/= 8 hours ASA classification: III Emergent: no Anesthetic plan: proceed Anesthesia type and monitoring: general GIVS and standard monitoring Results Review: All pre-operative results and documents have been reviewed as part of the pre-operative evaluation. Informed Consent: The patient's anesthetic plan and its attendant risks and benefits were discussed with the patient/family/POA. Questions were solicited and answers provided to the satisfaction of the patient/family/POA.
[2025-10-21] MEDS: LACTATED RINGERS 1,000 ML 30 ML IV CONT (09:15)
[2025-10-21 09:18] VITALS: BMI 26.4
[2025-10-21] MEDS: SCOPOLAMINE 1 MG PATCH 1 PATCH TRANSDERM (09:22)
[2025-10-21] MEDS: ACETAMINOPHEN 500 MG TABLET 1000 MG PO (09:22)
[2025-10-21 09:27] LABS: Hematocrit 35.2 % (37.0-47.0); Hemoglobin 11.2 g/dL (12.0-15.0); Mean Corpuscular HGB Conc 31.8 g/dl (32-36); Mean Corpuscular Hemoglobin 28.6 pg (26-34); Mean Corpuscular Volume 90.0 fl (80-100); Platelet Count Result 230 k/mm3 (150-375); Red Blood Count 3.91 M/mm3 (4.2-5.4); White Blood Count 5.9 K/mm3 (4.5-10.0)
--- NOTE | 2025-10-21 09:45 | SUR.PREOP ---
0945- Patient made aware of delay for procedure start time due to pending lab draw. Patient denying needs at this time.
[2025-10-21 10:03] LABS: Beta HCG Quantitative < 2.39 mIU/ML
[2025-10-21] MEDS: ceFAZolin 2 GM in SODIUM CHLORIDE 0.9% IV 50 ML 100 ML IVPB (10:37)
--- NOTE | 2025-10-21 11:04 | W.PM.PROC2 ---
Procedure Note - Detailed Date of Procedure 10/21/25 Pre-op Diagnosis abnormal uterine bleeding Post-op Diagnosis Same Procedure Performed 1. Hysteroscopy 2. Myomectomy with uterine shavings 3. Endometrial ablation Surgeon Alton Alves MD Anesthesia MAC Findings Intracavitary fibroid Description of Procedure Patient prepped and draped usual manner for this procedure. Cervix was dilated to allow the hysteroscope to be placed which did reveal fibroid. Using the appropriate instrument through the hysteroscope the fibroids removed without difficulty. Shavings were then taken throughout the cavity for further sampling. Sera instrument was placed, cavity assessment performed, and instrument activated. At the end of the cycle destruction was noted throughout inpatient tele procedure well. She was then sent to the recovery room in stable condition. Estimated Blood Loss 20 Drains No Packing No Pathology Yes Complications No immediate complications Condition Stable Disposition PACU [facility] Billing Surgery - Charge Forward: Surgery Billing
[2025-10-21 11:08] VITALS: BP 114/68; PULSE 65; RESP 14; O2SAT 100
[2025-10-21 11:35] VITALS: BP 147/75; PULSE 72
[2025-10-21 12:05] VITALS: BP 153/85; PULSE 59; RESP 16; O2SAT 99
[2025-10-21 12:35] VITALS: BP 160/87; PULSE 62; RESP 16
[2025-10-21 13:05] VITALS: BP 167/81; PULSE 70; RESP 16
== END 2025-10-21 13:20 | disposition home or self-care (01) ==
PROVIDERS: Anesthesiology; PCP Internal Medicine; Visit Provider Obstetrics & Gynecology
PROC: 0U5B8ZZ Destruction of Endometrium, Via Natural or Artificial Opening Endoscopic (ICD-10-PCS; CPT 58563; principal; 2025-10-21 09:45)
DX: N93.9 Abnormal uterine and vaginal bleeding, unspecified (principal); D25.9 Leiomyoma of uterus, unspecified; E11.9 Type 2 diabetes mellitus without complications; Z87.891 Personal history of nicotine dependence
CPT/HCPCS: 58563; 58561; 36415; 82948; 84702; 85027; 88305; J0690; A9270; J1100; J1200; J1885; J2003; J2250; J2704; J3010; J7120